=== PATIENT | male | born 1980 | race Caucasian/White ===

== ENCOUNTER 2016-12-24 15:12 | Emergency (ER) | payer OTHER ==
[~2016-12-24] VITALS: Ht 175.3 cm; Wt 68.0 kg
--- OUTSIDE RECORDS SUMMARY | ~2016-12-24 | XMS ---
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 | | | Active | [id number] | | | current | | | | | | | | use of | | | | | | | | insulin | | | | | | +---------+ + + +--------+ + + | Problem | Diabetes | | E08.65 | | Active | 9713284 | | | mellitus | | | [...] | E13.10 | | | Active | 856761035 | | | is due to | | | | | | | | diabetes | | | | | | +---------+ + + +--------+ + + | 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 | | | Active | 59995478 | | | ctive | | | | | | | | disorder | | | | | | +---------+ + + +--------+ + + | Problem | Hypertensi | | I10 | | Active | 92808419 | | | on | | | | | | +---------+ + + +--------+ + + | Problem | Pain in | | M79.671 | | Active | 1780957297 | | | right foot | | | | | [address] | +---------+ + + +--------+ + + | Problem | Callous | L98.499 | | | Active | 201163197 | | | ulcer | | | | | | +---------+ + + +--------+ + + | 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 | | | Active | 025395693 | | | thrive in | | | | | | | | adult | | | | | | +---------+ + + +--------+ + + | Problem | Smoking | | F17.200 | | Active | 945978377 | +---------+ + + +--------+ + + | Problem | Insomnia | | G47.00 | | Active | 827082676 | +---------+ + + +--------+ + + | Problem | 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 | | | Active | 3734726237 | | | hammad due to | | | | | [address] | | | type 1 | | | | | | | | diabetes | | | | | | | | mellitus | | | | | | +---------+ + + +--------+ + + ALLERGIES + + + + +--------+ | Substance | Reaction | Event Type | Date | Status | + + + + +--------+ | Wellbutrin | Hostile | Drug Allergy | Nov, | Active | + + + + +--------+ | Venlafaxine HCl | Unknown | Drug Allergy | Nov, | Active | + + + + +--------+ | Risperidone | Unknown | Drug Allergy | Nov, | Active | + + + + +--------+ | Resperal | sleep for a day | Drug Allergy | Nov, | Active | + + + + +--------+ | Haldol | swelling | Drug Allergy | Nov, | Active | + + + + +--------+ | Effexor | depressed, | Drug Allergy | Nov, | Active | | | suicidal | | | | + + + + +--------+ | Aripiprazole | Unknown | Drug Allergy | Nov, | Active | + + + + +--------+ SOCIAL HISTORY No smoking Hx information available PLAN OF CARE + +---------+ | Activity | Details | + +---------+ +---+ | | +---+ + + + | Follow Up | 2 Months Reason:null | + + + | Pending Test | Comp. Metabolic Panel (14) | + + + | Pending Test | Lipid Panel | + + + | Pending Test | Hemoglobin A1C Panel | + + + | Pending Test | CBC | + + + VITAL SIGNS + + + + | Height | 68 in | 2016-12-18 | + + + + | Weight | 144.6 lbs | 2016-12-18 | + + + + | BMI | 21.98 kg/m2 | 2016-12-18 | + + + + | Temperature | 97.7 degrees Fahrenheit | 2016-12-18 | + + + + | Heart Rate | 86 /min | 2016-12-18 | + + + + | Blood pressure systolic | 121 mm Hg | 2016-12-18 | + + + + | Blood pressure diastolic | 82 mm Hg | 2016-12-18 | + + + + MEDICATIONS + + + + + + + +--------+ | Medicati | Instruct | Dosage | Frequenc | Start | End Date | Duration | Status | | on | ions | | y | Date | | | | + + + + + + + +--------+ | Aspercre | External | 1 | 6h | 25 Apr, | | 90 days | Active | | me 10 % | ly Four | applicat | | 2016 | | | | | | times a | ion to | | | | | | | | day | affected | | | | | | | | | area as | | | | | | | | | needed | | | | | | + + + + + + + +--------+ | Proprano | Orally | 1.5 | 12h | | | 90 days | Active | | lol HCl | Twice a | tablet | | | | | | | 20 mg | day | | | | | | | + + + + + + + +--------+ | Gabapent | Orally | as | | 25 Apr, | | 90 days | Active | | in 100 | tid qac | directed | | 2016 | | | | | mg | | | | | | | | + + + + + + + +--------+ | Tylenol | Orally | 2 | 6h | | | 90 days | Active | | 325 MG | every 6 | tablets | | | | | | | | hrs | as | | | | | | | | | needed | | | | | | + + + + + + + +--------+ | Nicorett | Mouth/Th | 1 piece | | 25 Apr, | 20 Apr, | 90 days | Active | | e 2 MG | roat 24 | as | | 2016 | 2017 | | | | | time(s) | needed | | | | | | | | a day | | | | | | | + + + + + + + +--------+ | Cymbalta | Orally | 1 | 12h | | | | Active | | 30 MG | Twice a | capsule | | | | | | | | day | | | | | | | + + + + + + + +--------+ | Multiple | Orally | as | 24h | 31 Aug, | | 90 days | Active | | | daily | directed | | 2015 | | | | | Vitamins | | | | | | | | | -Mineral | | | | | | | | | s na | | | | | | | | + + + + + + + +--------+ | Atorvast | Orally | 1 tablet | 24h | | | 90 days | Active | | atin | Once a | | | | | | | | Calcium | day | | | | | | | | 10 MG | | | | | | | | + + + + + + + +--------+ | Nicorett | Mouth/Th | 1 | | | | 12 weeks | Active | | e 4 mg | roat max | lozenge | | | | | | | | 5 in 6 | every | | | | | | | | hours/ | 1-2 | | | | | | | | max 20 | hours | | | | | | | | in 24 | | | | | | | | | hours | | | | | | | + + + + + + + +--------+ | Insulin | orally | 20 units | | | | 30 | Active | | Glargine | once | | | | | day(s) | | | 100 | nightly | | | | | | | | UNIT/ML | | | | | | | | + + + + + + + +--------+ | Zolpidem | Orally | 1 tablet | 24h | | | 90 days | Active | | | Once a | at | | | | | | | Tartrate | day | bedtime | | | | | | | 5 MG | | | | | | | | + + + + + + + +--------+ | Losartan | Orally | 1 tablet | 24h | | | 90 days | Active | | | Once a | | | | | | | | Potassiu | day | | | | | | | | m 25 MG | | | | | | | | + + + + + + + +--------+ | Insulin | | | | | | | Active | | Lispro | | | | | | | | | 100 | | | | | | | | | UNIT/ML | | | | | | | | + + + + + + + +--------+ RESULTS No Results PROCEDURES + + + + + | Procedure | Date Ordered | Related Diagnosis | Body Site | + + + + + | Est Level IV | December 18, 2016 | | | | Extended | | | | + + + + + IMMUNIZATIONS No Known Immunizations"
--- OUTSIDE RECORDS SUMMARY | ~2016-12-24 | XMS ---
Demographics + + + | Address | [address] | | | [address] | | | [place] [address] | + + + | Preferred Language | Unknown | + + + | Marital Status | Unknown | + + + | Cheondoism Affiliation | Unknown | + + + | Race | Unknown | + + + | Ethnic Group | Unknown | + + + Author + + + | Author | [facility] | + + + | Organization | [facility] | + + + | Address | [address] | | | [place] [address] | + + + | Phone | | + + + Care Team Providers + + + + | Care Supervisor [employer] Name | Role | Phone | + + + + Unavailable | Unavailable | + + + + PROBLEMS +---------+ + + +--------+ + + | Type | Condition | ICD9-CM | [id number] | Onset | Condition | SNOMED | | | | Code | Code | Dates | Status | Code | +---------+ + + +--------+ + + | Problem | intermediate | Z79.4 | | | Active | [id number] | | | current | | | | | | | | use of | | | | | | | | insulin | | | | | | +---------+ + + +--------+ + + | Problem | Diabetes | | E08.65 | | Active | 2577539 | | | mellitus | | | [...] | E13.10 | | | Active | 678906842 | | | is due to | | | | | | | | diabetes | | | | | | +---------+ + + +--------+ + + | 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 | | | Active | 62500833 | | | ctive | | | | | | | | disorder | | | | | | +---------+ + + +--------+ + + | Problem | Hypertensi | | I10 | | Active | 34749737 | | | on | | | | | | +---------+ + + +--------+ + + | Problem | Pain in | | M79.671 | | Active | 1733505938 | | | right foot | | | | | [address] | +---------+ + + +--------+ + + | Problem | Callous | L98.499 | | | Active | 250896037 | | | ulcer | | | | | | +---------+ + + +--------+ + + | 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
--- OUTSIDE RECORDS SUMMARY | ~2016-12-24 | XMS ---
Demographics + + + | Address | [address] | | | [address] | | | [place] [address] | + + + | Preferred Language | Unknown | + + + | Marital Status | Unknown | + + + | Sabianism Affiliation | Unknown | + + + | Race | Unknown | + + + | Ethnic Group | Unknown | + + + Author + + + | Author | [facility] | + + + | Organization | [facility] | + + + | Address | [address] | | | [place] [address] | + + + | Phone | | + + + Care Team Providers + + + + | Care Pharmacy Technician Assistant Name | Role | Phone | + + + + Unavailable | Unavailable | + + + + PROBLEMS +---------+ + + +--------+ + + | Type | Condition | ICD9-CM | [id number] | Onset | Condition | SNOMED | | | | Code | Code | Dates | Status | Code | +---------+ + + +--------+ + + | Problem | group home | Z79.4 | | | Active | 260460106 | | | current | | | | | | | | use of | | | | | | | | insulin | | | | | | +---------+ + + +--------+ + + | Problem | Diabetes | | E08.65 | | Active | 1957333 | | | mellitus | | | [...] | E13.10 | | | Active | 003518972 | | | is due to | | | | | | | | diabetes | | | | | | +---------+ + + +--------+ + + | 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 | | | Active | 63751775 | | | ctive | | | | | | | | disorder | | | | | | +---------+ + + +--------+ + + | Problem | Hypertensi | | I10 | | Active | 45399953 | | | on | | | | | | +---------+ + + +--------+ + + | Problem | Pain in | | M79.671 | | Active | 7131363715 | | | right foot | | | | | [address] | +---------+ + + +--------+ + + | Problem | Callous | L98.499 | | | Active | 900822741 | | | ulcer | | | | | | +---------+ + + +--------+ + + | 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
--- OUTSIDE RECORDS SUMMARY | ~2016-12-24 | XMS ---
Demographics + + + | Address | [address] | | | [address] | | | [place] [address] | + + + | Preferred Language | Unknown | + + + | Marital Status | Unknown | + + + | Zoroastrian Affiliation | Unknown | + + + | Race | Unknown | + + + | Ethnic Group | Unknown | + + + Author + + + | Author | [facility] | + + + | Organization | [facility] | + + + | Address | [address] | | | [place] [address] | + + + | Phone | | + + + Care Team Providers + + + + | Care Retort Cooler Name | Role | Phone | + + + + Unavailable | Unavailable | + + + + PROBLEMS +---------+ + + +--------+ + + | Type | Condition | ICD9-CM | [id number] | Onset | Condition | SNOMED | | | | Code | Code | Dates | Status | Code | +---------+ + + +--------+ + + | Problem | custodial | Z79.4 | | | Active | [id number] | | | current | | | | | | | | use of | | | | | | | | insulin | | | | | | +---------+ + + +--------+ + + | Problem | Diabetes | | E08.65 | | Active | 6598241 | | | mellitus | | | [...] | E13.10 | | | Active | 717839144 | | | is due to | | | | | | | | diabetes | | | | | | +---------+ + + +--------+ + + | 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 | | | Active | 75643322 | | | ctive | | | | | | | | disorder | | | | | | +---------+ + + +--------+ + + | Problem | Hypertensi | | I10 | | Active | 69676301 | | | on | | | | | | +---------+ + + +--------+ + + | Problem | Pain in | | M79.671 | | Active | 0510841505 | | | right foot | | | | | [address] | +---------+ + + +--------+ + + | Problem | Callous | L98.499 | | | Active | 096618997 | | | ulcer | | | | | | +---------+ + + +--------+ + + | 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
[~2016-12-24 15:12] MED LIST: ALBUTEROL2.5 MG/3 M INH; AMBIEN5 MG PO; AMOX TR-K CLV1 EAC1 PO; APIDRA SOL100 UNIT/1 SUB-Q; ARIPIPRAZOLE2 MG PO; ASPERCREME76.5 GM; ASPIRIN EC81 MG PO; ATORVASTATIN CA10 MG PO; DULOXETINE HCL30 MG PO; GABAPENTIN100 MG PO; GEODON80 MG NG; HUMALOG100 UNIT/1 SUB-Q; HUMALOG100 UNIT/2 SUB-Q; HUMALOG100 UNITS/ SUB-Q; HUMULIN R500 UNIT/2 SQ; LANTUS SOL100 UNIT/1 SUB-Q; LANTUS100 UNITS/ SUB-Q; LEVAQUIN500 MG PO; LISINOPRIL20 MG PO; LOSARTAN POTASS25 MG PO; MULTIVITAMINS1 EAC7 PO; NEXIUM20 MG PO; NICORETTE4 M1 BUCCAL; NICOTINE GUM4 MG BUCCAL; NICOTINE PATCH1 EAC1 TD; PROPRANOLOL HCL20 MG PO; PROVENTIL HFA6.7 GM INH; QUETIAPINE FUM300 MG PO; REGLAN10 MG PO; STRATTERA100 MG PO; STRATTERA60 MG PO; STRATTERA80 MG PO; TYLENOL325 MG PO
[2016-12-24] MEDS ORDERED: NOVOLOG FL100 UNIT/1 SUB-Q (15:46)
[2016-12-24] MEDS ORDERED: LANTUS SOL100 UNIT/1 SUB-Q (15:47)
== END 2016-12-24 16:44 | disposition home or self-care (01) ==
LOC: ED 15:12
DX: E10.649 Type 1 diabetes mellitus with hypoglycemia without coma (principal); F31.9 Bipolar disorder, unspecified; F90.9 Attention-deficit hyperactivity disorder, unspecified type; F17.200 Nicotine dependence, unspecified, uncomplicated; Z88.8 Allergy status to other drugs, medicaments and biological substances; Z79.4 Long term (current) use of insulin; Z79.899 Other long term (current) drug therapy
CPT/HCPCS: 99283

== ENCOUNTER 2017-03-03 18:10 | Inpatient (IN) | payer OTHER ==
[~2017-03-03] VITALS: Ht 175.3 cm; Wt 61.1 kg
--- OUTSIDE RECORDS SUMMARY | ~2017-03-03 | XMS ---
Demographics + + + | Address | [address] | | | [address] | | | [place] [address] | + + + | Preferred Language | Unknown | + + + | Marital Status | Unknown | + + + | Methodist Affiliation | Unknown | + + + | Race | Unknown | + + + | Ethnic Group | Unknown | + + + Author + + + | Author | [facility] | + + + | Organization | [facility] | + + + | Address | [address] | | | [place] [address] | + + + | Phone | | + + + Care Team Providers + + + + | Care Head Stock Transfer Clerk Name | Role | Phone | + + + + Unavailable | Unavailable | + + + + PROBLEMS +---------+ + + +--------+ + + | Type | Condition | ICD9-CM | [id number] | Onset | Condition | SNOMED | | | | Code | Code | Dates | Status | Code | +---------+ + + +--------+ + + | Problem | USP | Z79.4 | | | Active | 631435542 | | | current | | | | | | | | use of | | | | | | | | insulin | | | | | | +---------+ + + +--------+ + + | Problem | Diabetes | | E08.65 | | Active | 3151492 | | | mellitus | | | [...] | E13.10 | | | Active | 371031186 | | | is due to | | | | | | | | diabetes | | | | | | +---------+ + + +--------+ + + | 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 | | | Active | 06895839 | | | ctive | | | | | | | | disorder | | | | | | +---------+ + + +--------+ + + | Problem | Hypertensi | | I10 | | Active | 80146366 | | | on | | | | | | +---------+ + + +--------+ + + | Problem | Pain in | | M79.671 | | Active | 4901551326 | | | right foot | | | | | [address] | +---------+ + + +--------+ + + | Problem | Callous | L98.499 | | | Active | 176066134 | | | ulcer | | | | | | +---------+ + + +--------+ + + | 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 | | | Active | 387112671 | | | thrive in | | | | | | | | adult | | | | | | +---------+ + + +--------+ + + | Problem | Smoking | | F17.200 | | Active | 087023237 | +---------+ + + +--------+ + + | Problem | Insomnia | | G47.00 | | Active | 112106552 | +---------+ + + +--------+ + + | Problem | 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 | | | Active | 2544120013 | | | hammad due to | | | | | [address] | | | type 1 | | | | | | | | diabetes | | | | | | | | mellitus | | | | | | +---------+ + + +--------+ + + ALLERGIES Unknown Allergies SOCIAL HISTORY No smoking Hx information available PLAN OF CARE VITAL SIGNS MEDICATIONS Unknown Medications RESULTS No Results PROCEDURES No Known procedures IMMUNIZATIONS No Known Immunizations"
--- OUTSIDE RECORDS SUMMARY | ~2017-03-03 | XMS ---
Demographics + + + | Address | [address] | | | [address] | | | [place] [address] | + + + | Preferred Language | Unknown | + + + | Marital Status | Unknown | + + + | Restorationist Affiliation | Unknown | + + + | Race | Unknown | + + + | Ethnic Group | Unknown | + + + Author + + + | Author | [facility] | + + + | Organization | [facility] | + + + | Address | [address] | | | [place] [address] | + + + | Phone | | + + + Care Team Providers + + + + | Care Director Of Vocational Training Name | Role | Phone | + + + + Unavailable | Unavailable | + + + + PROBLEMS +---------+ + + +--------+ + + | Type | Condition | ICD9-CM | [id number] | Onset | Condition | SNOMED | | | | Code | Code | Dates | Status | Code | +---------+ + + +--------+ + + | Problem | FPC | Z79.4 | | | Active | 314584491 | | | current | | | | | | | | use of | | | | | | | | insulin | | | | | | +---------+ + + +--------+ + + | Problem | Diabetes | | E08.65 | | Active | 9334449 | | | mellitus | | | [...] | E13.10 | | | Active | 722493150 | | | is due to | | | | | | | | diabetes | | | | | | +---------+ + + +--------+ + + | 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 | | | Active | 98710467 | | | ctive | | | | | | | | disorder | | | | | | +---------+ + + +--------+ + + | Problem | Hypertensi | | I10 | | Active | 73087119 | | | on | | | | | | +---------+ + + +--------+ + + | Problem | Pain in | | M79.671 | | Active | 3040025424 | | | right foot | | | | | [address] | +---------+ + + +--------+ + + | Problem | Callous | L98.499 | | | Active | 781930903 | | | ulcer | | | | | | +---------+ + + +--------+ + + | 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
--- OUTSIDE RECORDS SUMMARY | ~2017-03-03 | XMS ---
Demographics + + + | Address | [address] | | | [address] | | | [place] [address] | + + + | Preferred Language | Unknown | + + + | Marital Status | Unknown | + + + | Congregation Affiliation | Unknown | + + + | Race | Unknown | + + + | Ethnic Group | Unknown | + + + Author + + + | Author | [facility] | + + + | Organization | [facility] | + + + | Address | [address] | | | [place] [address] | + + + | Phone | | + + + Care Team Providers + + + + | Care Anesthesiologist Assistant Certified Name | Role | Phone | + + + + Unavailable | Unavailable | + + + + PROBLEMS +---------+ + + +--------+ + + | Type | Condition | ICD9-CM | [id number] | Onset | Condition | SNOMED | | | | Code | Code | Dates | Status | Code | +---------+ + + +--------+ + + | Problem | prison | Z79.4 | | | Active | 479244815 | | | current | | | | | | | | use of | | | | | | | | insulin | | | | | | +---------+ + + +--------+ + + | Problem | Diabetes | | E08.65 | | Active | 3034716 | | | mellitus | | | [...] | E13.10 | | | Active | 420925272 | | | is due to | | | | | | | | diabetes | | | | | | +---------+ + + +--------+ + + | 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 | | | Active | 30340911 | | | ctive | | | | | | | | disorder | | | | | | +---------+ + + +--------+ + + | Problem | Hypertensi | | I10 | | Active | 22748280 | | | on | | | | | | +---------+ + + +--------+ + + | Problem | Pain in | | M79.671 | | Active | 0896115449 | | | right foot | | | | | [address] | +---------+ + + +--------+ + + | Problem | Callous | L98.499 | | | Active | 415270730 | | | ulcer | | | | | | +---------+ + + +--------+ + + | 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
--- OUTSIDE RECORDS SUMMARY | ~2017-03-03 | XMS ---
Demographics + + + | Address | [address] | | | [address] | | | [place] [address] | + + + | Preferred Language | Unknown | + + + | Marital Status | Unknown | + + + | Christian Affiliation | Unknown | + + + | Race | Unknown | + + + | Ethnic Group | Unknown | + + + Author + + + | Author | [facility] | + + + | Organization | [facility] | + + + | Address | [address] | | | [place] [address] | + + + | Phone | | + + + Care Team Providers + + + + | Care Senior Linux Administrator Name | Role | Phone | + + + + Unavailable | Unavailable | + + + + PROBLEMS +---------+ + + +--------+ + + | Type | Condition | ICD9-CM | [id number] | Onset | Condition | SNOMED | | | | Code | Code | Dates | Status | Code | +---------+ + + +--------+ + + | Problem | senior living | Z79.4 | | | Active | 482143435 | | | current | | | | | | | | use of | | | | | | | | insulin | | | | | | +---------+ + + +--------+ + + | Problem | Diabetes | | E08.65 | | Active | 5171800 | | | mellitus | | | [...] | E13.10 | | | Active | 953309501 | | | is due to | | | | | | | | diabetes | | | | | | +---------+ + + +--------+ + + | 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 | | | Active | 59251787 | | | ctive | | | | | | | | disorder | | | | | | +---------+ + + +--------+ + + | Problem | Hypertensi | | I10 | | Active | 67264412 | | | on | | | | | | +---------+ + + +--------+ + + | Problem | Pain in | | M79.671 | | Active | 6181613364 | | | right foot | | | | | [address] | +---------+ + + +--------+ + + | Problem | Callous | L98.499 | | | Active | 668584434 | | | ulcer | | | | | | +---------+ + + +--------+ + + | 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
--- OUTSIDE RECORDS SUMMARY | ~2017-03-03 | XMS ---
Demographics + + + | Address | [address] | | | [address] | | | [place] [address] | + + + | Preferred Language | Unknown | + + + | Marital Status | Unknown | + + + | Gnosticism Affiliation | Unknown | + + + | Race | Unknown | + + + | Ethnic Group | Unknown | + + + Author + + + | Author | [facility] | + + + | Organization | [facility] | + + + | Address | [address] | | | [place] [address] | + + + | Phone | | + + + Care Team Providers + + + + | Care Ore Grader Name | Role | Phone | + + + + Unavailable | Unavailable | + + + + PROBLEMS +---------+ + + +--------+ + + | Type | Condition | ICD9-CM | [id number] | Onset | Condition | SNOMED | | | | Code | Code | Dates | Status | Code | +---------+ + + +--------+ + + | Problem | FCI | Z79.4 | | | Active | 582507338 | | | current | | | | | | | | use of | | | | | | | | insulin | | | | | | +---------+ + + +--------+ + + | Problem | Diabetes | | E08.65 | | Active | 5081132 | | | mellitus | | | [...] | E13.10 | | | Active | 552088468 | | | is due to | | | | | | | | diabetes | | | | | | +---------+ + + +--------+ + + | 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 | | | Active | 32099748 | | | ctive | | | | | | | | disorder | | | | | | +---------+ + + +--------+ + + | Problem | Hypertensi | | I10 | | Active | 87960872 | | | on | | | | | | +---------+ + + +--------+ + + | Problem | Pain in | | M79.671 | | Active | 8525321419 | | | right foot | | | | | [address] | +---------+ + + +--------+ + + | Problem | Callous | L98.499 | | | Active | 502905754 | | | ulcer | | | | | | +---------+ + + +--------+ + + | 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
--- OUTSIDE RECORDS SUMMARY | ~2017-03-03 | XMS ---
Demographics + + + | Address | [address] | | | [address] | | | [place] [address] | + + + | Preferred Language | Unknown | + + + | Marital Status | Unknown | + + + | Sikhism Affiliation | Unknown | + + + | Race | Unknown | + + + | Ethnic Group | Unknown | + + + Author + + + | Author | [facility] | + + + | Organization | [facility] | + + + | Address | [address] | | | [place] [address] | + + + | Phone | | + + + Care Team Providers + + + + | Care Finishing Range Supervisor Name | Role | Phone | + + + + Unavailable | Unavailable | + + + + PROBLEMS +---------+ + + +--------+ + + | Type | Condition | ICD9-CM | [id number] | Onset | Condition | SNOMED | | | | Code | Code | Dates | Status | Code | +---------+ + + +--------+ + + | Problem | USP | Z79.4 | | | Active | [id number] | | | current | | | | | | | | use of | | | | | | | | insulin | | | | | | +---------+ + + +--------+ + + | Problem | Diabetes | | E08.65 | | Active | 0784954 | | | mellitus | | | [...] | E13.10 | | | Active | 987228590 | | | is due to | | | | | | | | diabetes | | | | | | +---------+ + + +--------+ + + | 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 | | | Active | 50120959 | | | ctive | | | | | | | | disorder | | | | | | +---------+ + + +--------+ + + | Problem | Hypertensi | | I10 | | Active | 81619018 | | | on | | | | | | +---------+ + + +--------+ + + | Problem | Pain in | | M79.671 | | Active | 9471593442 | | | right foot | | | | | [address] | +---------+ + + +--------+ + + | Problem | Callous | L98.499 | | | Active | 669704903 | | | ulcer | | | | | | +---------+ + + +--------+ + + | 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 | | | Active | 298041343 | | | thrive in | | | | | | | | adult | | | | | | +---------+ + + +--------+ + + | Problem | Smoking | | F17.200 | | Active | 461218621 | +---------+ + + +--------+ + + | Problem | Insomnia | | G47.00 | | Active | 795504113 | +---------+ + + +--------+ + + | Problem | 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 | | | Active | 0275761055 | | | hammad due to | | | | | [address] | | | type 1 | | [...]
--- OUTSIDE RECORDS SUMMARY | ~2017-03-03 | XMS ---
Demographics + + + | Address | [address] | | | [address] | | | [place] [address] | + + + | Preferred Language | Unknown | + + + | Marital Status | Unknown | + + + | Islam Affiliation | Unknown | + + + | Race | Unknown | + + + | Ethnic Group | Unknown | + + + Author + + + | Author | [facility] | + + + | Organization | [facility] | + + + | Address | [address] | | | [place] [address] | + + + | Phone | | + + + Care Team Providers + + + + | Care Inflatable Buildings Laminator Name | Role | Phone | + + + + Unavailable | Unavailable | + + + + PROBLEMS +---------+ + + +--------+ + + | Type | Condition | ICD9-CM | [id number] | Onset | Condition | SNOMED | | | | Code | Code | Dates | Status | Code | +---------+ + + +--------+ + + | Problem | prison | Z79.4 | | | Active | [id number] | | | current | | | | | | | | use of | | | | | | | | insulin | | | | | | +---------+ + + +--------+ + + | Problem | Diabetes | | E08.65 | | Active | 5554851 | | | mellitus | | | [...] | E13.10 | | | Active | 388085065 | | | is due to | | | | | | | | diabetes | | | | | | +---------+ + + +--------+ + + | 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 | | | Active | 69124133 | | | ctive | | | | | | | | disorder | | | | | | +---------+ + + +--------+ + + | Problem | Hypertensi | | I10 | | Active | 96602487 | | | on | | | | | | +---------+ + + +--------+ + + | Problem | Pain in | | M79.671 | | Active | 8003953232 | | | right foot | | | | | [address] | +---------+ + + +--------+ + + | Problem | Callous | L98.499 | | | Active | 610627919 | | | ulcer | | | | | | +---------+ + + +--------+ + + | 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 | | | Active | 027771602 | | | thrive in | | | | | | | | adult | | | | | | +---------+ + + +--------+ + + | Problem | Smoking | | F17.200 | | Active | 309735421 | +---------+ + + +--------+ + + | Problem | Insomnia | | G47.00 | | Active | 041019353 | +---------+ + + +--------+ + + | Problem | 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 | | | Active | 0658188863 | | | hammad due to | | | | | [address] | | | type 1 | | [...]
--- OUTSIDE RECORDS SUMMARY | ~2017-03-03 | XMS ---
Demographics + + + | Address | [address] | | | [address] | | | [place] [address] | + + + | Preferred Language | Unknown | + + + | Marital Status | Unknown | + + + | Scientology Affiliation | Unknown | + + + | Race | Unknown | + + + | Ethnic Group | Unknown | + + + Author + + + | Author | [facility] | + + + | Organization | [facility] | + + + | Address | [address] | | | [place] [address] | + + + | Phone | | + + + Care Team Providers + + + + | Care Mrp Controller Name | Role | Phone | + + + + Unavailable | Unavailable | + + + + PROBLEMS +---------+ + + +--------+ + + | Type | Condition | ICD9-CM | [id number] | Onset | Condition | SNOMED | | | | Code | Code | Dates | Status | Code | +---------+ + + +--------+ + + | Problem | [facility] | Z79.4 | | | Active | [id number] | | | current | | | | | | | | use of | | | | | | | | insulin | | | | | | +---------+ + + +--------+ + + | Problem | Diabetes | | E08.65 | | Active | 5727242 | | | mellitus | | | [...] | E13.10 | | | Active | 301354113 | | | is due to | | | | | | | | diabetes | | | | | | +---------+ + + +--------+ + + | 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 | | | Active | 46600376 | | | ctive | | | | | | | | disorder | | | | | | +---------+ + + +--------+ + + | Problem | Hypertensi | | I10 | | Active | 84387722 | | | on | | | | | | +---------+ + + +--------+ + + | Problem | Pain in | | M79.671 | | Active | 0286323866 | | | right foot | | | | | [address] | +---------+ + + +--------+ + + | Problem | Callous | L98.499 | | | Active | 776396974 | | | ulcer | | | | | | +---------+ + + +--------+ + + | 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 | | | Active | 629781344 | | | thrive in | | | | | | | | adult | | | | | | +---------+ + + +--------+ + + | Problem | Smoking | | F17.200 | | Active | 558555822 | +---------+ + + +--------+ + + | Problem | Insomnia | | G47.00 | | Active | 858170581 | +---------+ + + +--------+ + + | Problem | 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 | | | Active | 6218854187 | | | hammad due to | | | | | [address] | | | type 1 | | [...]
--- OUTSIDE RECORDS SUMMARY | ~2017-03-03 | XMS ---
Demographics + + + | Address | [address] | | | [address] | | | [place] [address] | + + + | Preferred Language | Unknown | + + + | Marital Status | Unknown | + + + | Samaritan Affiliation | Unknown | + + + | Race | Unknown | + + + | Ethnic Group | Unknown | + + + Author + + + | Author | [facility] | + + + | Organization | [facility] | + + + | Address | [address] | | | [place] [address] | + + + | Phone | | + + + Care Team Providers + + + + | Care Farm Products Shipper Name | Role | Phone | + + + + Unavailable | Unavailable | + + + + PROBLEMS +---------+ + + +--------+ + + | Type | Condition | ICD9-CM | [id number] | Onset | Condition | SNOMED | | | | Code | Code | Dates | Status | Code | +---------+ + + +--------+ + + | Problem | snf | Z79.4 | | | Active | [id number] | | | current | | | | | | | | use of | | | | | | | | insulin | | | | | | +---------+ + + +--------+ + + | Problem | Diabetes | | E08.65 | | Active | 4672563 | | | mellitus | | | [...] | E13.10 | | | Active | 229555906 | | | is due to | | | | | | | | diabetes | | | | | | +---------+ + + +--------+ + + | 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 | | | Active | 81152435 | | | ctive | | | | | | | | disorder | | | | | | +---------+ + + +--------+ + + | Problem | Hypertensi | | I10 | | Active | 94216232 | | | on | | | | | | +---------+ + + +--------+ + + | Problem | Pain in | | M79.671 | | Active | 3026988088 | | | right foot | | | | | [address] | +---------+ + + +--------+ + + | Problem | Callous | L98.499 | | | Active | 791703633 | | | ulcer | | | | | | +---------+ + + +--------+ + + | 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 | | | Active | 754566247 | | | thrive in | | | | | | | | adult | | | | | | +---------+ + + +--------+ + + | Problem | Smoking | | F17.200 | | Active | 409610355 | +---------+ + + +--------+ + + | Problem | Insomnia | | G47.00 | | Active | 048341434 | +---------+ + + +--------+ + + | Problem | 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 | | | Active | 1344911489 | | | hammad due to | | | | | [address] | | | type 1 | | [...]
--- OUTSIDE RECORDS SUMMARY | ~2017-03-03 | XMS ---
Demographics + + + | Address | [address] | | | [address] | | | [place] [address] | + + + | Preferred Language [...] | + + + | Organization | [facility] | + + + | Address | [address] | | | [place] [address] | + + + | Phone | | + + + Care Team Providers + + + + | Care Spring Assembler Supervisor Name | Role | Phone | + + + + Unavailable | Unavailable | + + + + PROBLEMS +---------+ + + +--------+ + + | Type | Condition | ICD9-CM | [id number] | Onset | Condition | SNOMED | | | | Code | Code | Dates | Status | Code | +---------+ + + +--------+ + + | Problem | senior care | Z79.4 | | | Active | [id number] | | | current | | | | | | | | use of | | | | | | | | insulin | | | | | | +---------+ + + +--------+ + + | Problem | Diabetes | | E08.65 | | Active | 6501390 | | | mellitus | | | [...] | E13.10 | | | Active | 357823535 | | | is due to | | | | | | | | diabetes | | | | | | +---------+ + + +--------+ + + | 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 | | | Active | 09959544 | | | ctive | | | | | | | | disorder | | | | | | +---------+ + + +--------+ + + | Problem | Hypertensi | | I10 | | Active | 67790246 | | | on | | | | | | +---------+ + + +--------+ + + | Problem | Pain in | | M79.671 | | Active | 6741257451 | | | right foot | | | | | [address] | +---------+ + + +--------+ + + | Problem | Callous | L98.499 | | | Active | 343492207 | | | ulcer | | | | | | +---------+ + + +--------+ + + | 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 | | | Active | 500983287 | | | thrive in | | | | | | | | adult | | | | | | +---------+ + + +--------+ + + | Problem | Smoking | | F17.200 | | Active | 757902651 | +---------+ + + +--------+ + + | Problem | Insomnia | | G47.00 | | Active | 409013004 | +---------+ + + +--------+ + + | Problem | 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 | | | Active | 3874614407 | | | hammad due to | | | | | [address] | | | type 1 | | [...]
[~2017-03-03 18:10] MED LIST changes: +NOVOLOG FL100 UNIT/1 SUB-Q
[2017-03-03] MEDS ORDERED: CYMBALTA30 MG PO (19:48)
[2017-03-03] MEDS ORDERED: HUMULIN R500 UNIT/1 SUB-Q (19:50)
--- NOTE | 2017-03-04 00:10 | NUR ---
ADMIT TO CCU, REPORT RECIEVED FROM NAYANA JAMES. PT ABLE TO STAND AND MOVE FROM STRETCHER TO BED. PT'S SPEECH SL RAPID AND DISORGANIZED BUT IS COOPERATIVE. PT C/O HEARTBURN OTHERWISE DENIES PAIN. GIVEN DIET 7-UP ON ICE AND WATER. DENIES NAUSEA. INSULIN GTT CHANGED TO [address] BATISTA.
--- NOTE | 2017-03-04 01:00 | NUR ---
INSULIN GTT CHANGED TO 4 UNITS/HR BS 282. PT RESTING.
--- NOTE | 2017-03-04 02:12 | NUR ---
CARLENE FOR BS. BS IS 24O GTT CHANGED TO 3 UNITS/HR, RATE CHANGES DOUBLED CHECKED PER JOHANNY JAMES. PT GIVEN WARM BLANKETS PER REQUEST.
--- NOTE | 2017-03-04 03:10 | NUR ---
PT HAS NO C/O. INSULIN DECREASED TO 2 UNITS PER HR. IVF WILL CHANGE TO D5NS.
--- NOTE | 2017-03-04 03:32 | NUR ---
STOOD TO VOID. JOANNE WELL.
--- NOTE | 2017-03-04 06:29 | NUR ---
SLEEPING MOST OF TIME. CONT AT 2 UNITS OF INSULIN PER HR.
--- NOTE | 2017-03-04 08:00 | NUR ---
DR. BATISTA HERE TO SEE PATIENT. IS MOVING AROUND IN BED. NURSING ASSESSMENT DONE. TALKED WITH PATIENT ABOUT PLAN OF CARE FOR DAY, IS NOT INTERESTED IN THE PLAN OF CARE. BREAKFAST ORDERED. ACCUCHECK-134. INSULIN GTT DECREASED TO 1 UNIT PER ORDERS.
--- NOTE | 2017-03-04 09:00 | NUR ---
RESTFUL. ACCUCHECK-148. INUSLIN GTT REMAINS AT 1 UNIT HR.
--- NOTE | 2017-03-04 10:10 | NUR ---
ACCUCHECK-208. INSULIN GTT INCREASED TO 3 UNITS/HR. DR. BATISTA AWARE, NO FUTHER ORDERS. TAKING SNACK.
--- NOTE | 2017-03-04 11:00 | NUR ---
REFUSED ACCUCHECK. CURSING. PATIENT STATES HE WANTS TO BE ALONE.
--- NOTE | 2017-03-04 12:00 | NUR ---
ACCUCHECK 264. INSULIN GTT INCREASED TO 4 UNITS.
--- NOTE | 2017-03-04 13:10 | NUR ---
TOOK LUNCH WELL. DENIES NAUSEA. AMBULATED TO SHOWER. OFF INSULIN GTT WHILE IN SHOWER.
--- NOTE | 2017-03-04 13:20 | NUR ---
TOLERATED SHOWER WELL. ASKING FOR MORE FOOD. IVF/INSULIN GTT ON. IS TALKATIVE AT THIS TIME. NICOTINE GUM ORDERED AND GIVEN. CONTINUE ON Q1 HR ACCUCHECK. IVF AT 125 D5NS INFUSING. INSULIN GTT IS INFUSING AT 4 UNITS/HR.
--- NOTE | 2017-03-04 13:30 | NUR ---
TYLENOL GIVEN FOR HEADACHE.
--- NOTE | 2017-03-04 14:26 | NUR ---
RESTING NOW. STATES FEELS BETTER AFTER TYLENOL GIVEN.
--- NOTE | 2017-03-04 17:11 | NUR ---
SITTING AT BEDSIDE. TALKATIVE.
--- NOTE | 2017-03-04 18:42 | NUR ---
DR. LOO UPDATED ON PATIENT. ORDERS RECIEVED. TOOK DINNER WELL. DENIES NAUSEA.
--- NOTE | 2017-03-04 19:13 | NUR ---
LEVEMIR 12 UNITS SQ GIVEN. IVF OFF. TALKED WITH PATIENT ABOUT PLAN FOR INULIN GTT AND SQ INSULIN WELL ACCUCHECKS. BEDSIDE REPORT GIVEN. RESTFUL.
--- NOTE | 2017-03-04 20:48 | NUR ---
PT UP IN ROOM. DOES NOT WANT TO KEEP MONITOR ON. HAS ALSO REQUESTED ANOTHER SHOWER, ADVISED NURSES WERE BUSY AT THIS TIME. DID WALK WITH PT TO WAITING ROOM TO FIND MAGAZINE. GIVEN COFFEE AND SODA PER PT REQUEST. PT HAS BEEN COOPERATIVE. DR LOO AWARE OF PTS BEHAVIOR.
--- NOTE | 2017-03-04 20:51 | NUR ---
INSULIN GTT WAS DC'D AT 2014.
--- NOTE | 2017-03-04 22:10 | NUR ---
REQUESTING TYLENOL FOR GENERALIZED ACHES AND PAINS. GIVEN WARM BLANKET. READY FOR SLEEP. INFORMED WILL RECHECKED BS AT 0200.
--- NOTE | 2017-03-05 02:15 | NUR ---
AWAKE, WAS UP ON OWN TO BR TO VOID. BS 145 AND GIVEN 1 UNIT INSULIN SUB Q. PT ASKED WHY HE WAS GETTING INSULIN WHEN HE WASN'T EATING CARBS. EXPLAINED WAS STILL GETTING COVERAGE WHILE RECOVERING FROM DKA.
--- NOTE | 2017-03-05 04:48 | NUR ---
SLEEPING. RESP REG.
--- NOTE | 2017-03-05 05:22 | NUR ---
BS CHECKED WITH LAB DRAW, BS 84. PT OFFERED PEANUT BUTTER AND CRACKERS SNACK UNTIL ABLE TO GET BREAKFAST. PT DECLINED. SNACK LEFT AT BEDSIDE.
--- NOTE | 2017-03-05 06:29 | NUR ---
SLEEPING AT THIS TIME.
--- NOTE | 2017-03-05 08:15 | NUR ---
ASSSSMENT DONE. DENIES PROBLEMS.
--- NOTE | 2017-03-05 09:30 | NUR ---
DR. LOO HERE TO SEE PATIENT. PATIENT TO BE DISCHARGED TODAY.
--- NOTE | 2017-03-05 10:00 | NUR ---
DISCHARGE INSTRUCTIONS GIVEN WITH PATIENT UNDERSTANDING.
--- NOTE | 2017-03-05 10:00 | NUR ---
ACCUCHECK-302. NOVOLOG INSULIN 4 UNITS GIVEN.
[2017-03-05] MEDS ORDERED: LANTUS SOL100 UNIT/1 SUB-Q (10:09)
[2017-03-05] MEDS ORDERED: INSULIN PEN NE1 EAC3 SUB-Q (10:14)
[2017-03-05] MEDS ORDERED: NOVOLOG FL100 UNIT/1 SUB-Q (10:14)
--- NOTE | 2017-03-05 10:19 | NUR ---
MOVING AROUND IN ROOM. WILL BE DISCHAGED TODAY. READY FOR SHOWER.
--- NOTE | 2017-03-05 10:40 | NUR ---
SL DC'D WITH CATH INTACT.
--- NOTE | 2017-03-05 11:06 | NUR ---
DISCHARGED VIA W/C ACCOMP BY MANAGER DESKTOP 2.
--- NOTE | 2017-03-05 13:47 | NUR ---
PT FEELING BETTER, STRUGGLED AND GOT UPSET WHEN HE BEGAN TO FIGURE OUT TOO MANY THINGS HAPPENING IN HIS LIFE. WORKED TO FOCUS HIM ON JUST GETTING HIS HEALTH BACK ON TRACK. ERIKA BOWENS SAID HE WAS DOING A GREAT JOB. PT REQUESTED PRAYER, WILL CONTINUE TO FOLLOW NEEDED
== END 2017-03-05 10:55 | disposition home or self-care (01) | DRG 638 ==
LOC: ED 18:10 → CCU 23:33
PROVIDERS: ADMIT Internal Medicine
DX: E10.10 Type 1 diabetes mellitus with ketoacidosis without coma (principal); F20.89 Other schizophrenia; Z79.4 Long term (current) use of insulin; Z91.19 Patient's noncompliance with other medical treatment and regimen; E86.0 Dehydration; F90.9 Attention-deficit hyperactivity disorder, unspecified type; F17.200 Nicotine dependence, unspecified, uncomplicated; Z59.0 Homelessness
CPT/HCPCS: 36415; 80048; 80053; 81001; 82010; 82800; 83036; 83735; 84100; 85025; 96361; 96374; 96375; 96376; 99285; J2405; J7030; J7042

== ENCOUNTER 2017-03-19 19:55 | Emergency (ER) | payer OTHER ==
[~2017-03-19] VITALS: Ht 175.3 cm; Wt 61.1 kg
[~2017-03-19 19:55] MED LIST changes: +CYMBALTA30 MG PO; +HUMULIN R500 UNIT/1 SUB-Q; +INSULIN PEN NE1 EAC3 SUB-Q
[2017-03-19] MEDS ORDERED: LANTUS100 UNITS/ SUB-Q (20:09)
[2017-03-19] MEDS ORDERED: HUMALOG100 UNITS/ IV (20:09)
[2017-03-19] MEDS ORDERED: NICORETTE4 M1 BUCCAL (20:12)
--- OUTSIDE RECORDS SUMMARY | 2017-03-19 20:22 | XMS ---
Demographics + + + | Address | [address] | | | [address] | | | [place] [address] | + + + | Preferred Language | Unknown | + + + | Marital Status | Unknown | + + + | Restoration Affiliation | Unknown | + + + | Race | Unknown | + + + | Ethnic Group | Unknown | + + + Author + + + | Author | [facility] | + + + | Organization | [facility] | + + + | Address | [address] | | | [place] [address] | + + + | Phone | | + + + Care Team Providers + + + + | Care Tangled Yarn Spool Straightener Name | Role | Phone | + + + + Unavailable | Unavailable | + + + + PROBLEMS +---------+ + + +--------+ + + | Type | Condition | ICD9-CM | [id number] | Onset | Condition | SNOMED | | | | Code | Code | Dates | Status | Code | +---------+ + + +--------+ + + | Problem | snf | Z79.4 | | | Active | [id number] | | | current | | | | | | | | use of | | | | | | | | insulin | | | | | | +---------+ + + +--------+ + + | Problem | Diabetes | | E08.65 | | Active | 5408889 | | | mellitus | | | | | | | | due to | | | | | | | | underlying | | | | | | | | condition | | | | | | | | with | | | | | | | | hyperglyce | | | | | | | | hammad | | | | | | +---------+ + + +--------+ + + | Problem | Ketoacidos | E13.10 | | | Active | 472370362 | | | is due to | | | | | | | | diabetes | | | | | | +---------+ + + +--------+ + + | 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 | | | Active | 12789525 | | | ctive | | | | | | | | disorder | | | | | | +---------+ + + +--------+ + + | Problem | Hypertensi | | I10 | | Active | 12139028 | | | on | | | | | | +---------+ + + +--------+ + + | Problem | Pain in | | M79.671 | | Active | 1556604828 | | | right foot | | | | | [address] | +---------+ + + +--------+ + + | Problem | Callous | L98.499 | | | Active | 028287382 | | | ulcer | | | | | | +---------+ + + +--------+ + + | 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 | | | Active | 129079505 | | | thrive in | | | | | | | | adult | | | | | | +---------+ + + +--------+ + + | Problem | Smoking | | F17.200 | | Active | 454504431 | +---------+ + + +--------+ + + | Problem | Insomnia | | G47.00 | | Active | 944569167 | +---------+ + + +--------+ + + | Problem | 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 | | | Active | 4351896407 | | | hammad due to | | | | | [address] | | | type 1 | | | | | | | | diabetes | | | | | | | | mellitus | | | | | | +---------+ + + +--------+ + + ALLERGIES No Information SOCIAL HISTORY Never Assessed PLAN OF CARE VITAL SIGNS MEDICATIONS Unknown Medications RESULTS No Results PROCEDURES No Known procedures IMMUNIZATIONS No Known Immunizations MEDICAL (GENERAL) HISTORY + + +------+ | Type | Description | Date | + + +------+ | Medical History | Patient is a 35-year-old | | | | white male who [facility] | | | | [facility] | | | | [facility]. He has a history | | | | of diabetes and recent | | | | episodes of ketoacidosis | | | | .He was seen by Dr. Fritz | | | | initially prior to | | | | admission in the ER. In | | | | addition to type 1 | | | | diabetes, he also has | | | | schizophrenia, ADHD, and | | | | asthma. He also smokes | | | | 1-1/2 packs of cigarettes a | | | | day. | | + + +------+ | Medical History | Mental health: depression, | | | | schizzoaffective disorder, | | | | ADHD: managed by [employer] | | + + +------+ | Medical History | Asthma | | + + +------+ | Medical History | allergies | | + + +------+ | Medical History | insomnia | | + + +------+ | Surgical History | tonsilectomy | | + + +------+ | Surgical History | oral surgery | | + + +------+ | Hospitalization History | DKA | | + + +------+"
--- OUTSIDE RECORDS SUMMARY | 2017-03-19 20:22 | XMS ---
Demographics + + + | Address | [address] | | | [address] | | | [place] [address] | + + + | Preferred Language | Unknown | + + + | Marital Status | Unknown | + + + | Sabianist Affiliation | Unknown | + + + | Race | Unknown | + + + | Ethnic Group | Unknown | + + + Author + + + | Author | [facility] | + + + | Organization | [facility] | + + + | Address | [address] | | | [place] [address] | + + + | Phone | | + + + Care Team Providers + + + + | Care Utility Inspector Name | Role | Phone | + + + + Unavailable | Unavailable | + + + + PROBLEMS +---------+ + + +--------+ + + | Type | Condition | ICD9-CM | [id number] | Onset | Condition | SNOMED | | | | Code | Code | Dates | Status | Code | +---------+ + + +--------+ + + | Problem | [facility] | Z79.4 | | | Active | 095970632 | | | current | | | | | | | | use of | | | | | | | | insulin | | | | | | +---------+ + + +--------+ + + | Problem | Diabetes | | E08.65 | | Active | 3568796 | | | mellitus | | | [...] | E13.10 | | | Active | 132567283 | | | is due to | | | | | | | | diabetes | | | | | | +---------+ + + +--------+ + + | 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 | | | Active | 12414835 | | | ctive | | | | | | | | disorder | | | | | | +---------+ + + +--------+ + + | Problem | Hypertensi | | I10 | | Active | 26330567 | | | on | | | | | | +---------+ + + +--------+ + + | Problem | Pain in | | M79.671 | | Active | 8543068146 | | | right foot | | | | | [address] | +---------+ + + +--------+ + + | Problem | Callous | L98.499 | | | Active | 752287714 | | | ulcer | | | | | | +---------+ + + +--------+ + + | 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 | | | Active | 077849178 | | | thrive in | | | | | | | | adult | | | | | | +---------+ + + +--------+ + + | Problem | Smoking | | F17.200 | | Active | 547367718 | +---------+ + + +--------+ + + | Problem | Insomnia | | G47.00 | | Active | 499045459 | +---------+ + + +--------+ + + | Problem | 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 | | | Active | 8715758036 | | | hammad due to | | | | | [address] | | | type 1 | | [...] [facility] | | | | [facility] | | | | 02/21/16. He has [...] | | | | ADHD: managed by [employer] | | + + +------+ | Medical [...]
--- OUTSIDE RECORDS SUMMARY | 2017-03-19 20:22 | XMS ---
Demographics + + + | Address | [address] | | | [address] | | | [place] [address] | + + + | Preferred Language | Unknown | + + + | Marital Status | Unknown | + + + | Adventist Affiliation | Unknown | + + + | Race | Unknown | + + + | Ethnic Group | Unknown | + + + Author + + + | Author | [facility] | + + + | Organization | [facility] | + + + | Address | [address] | | | [place] [address] | + + + | Phone | | + + + Care Team Providers + + + + | Care Clip Riveter Name | Role | Phone | + + + + Unavailable | Unavailable | + + + + PROBLEMS +---------+ + + +--------+ + + | Type | Condition | ICD9-CM | [id number] | Onset | Condition | SNOMED | | | | Code | Code | Dates | Status | Code | +---------+ + + +--------+ + + | Problem | long-term | Z79.4 | | | Active | 522249236 | | | current | | | | | | | | use of | | | | | | | | insulin | | | | | | +---------+ + + +--------+ + + | Problem | Diabetes | | E08.65 | | Active | 8497989 | | | mellitus | | | [...] | E13.10 | | | Active | 176117746 | | | is due to | | | | | | | | diabetes | | | | | | +---------+ + + +--------+ + + | 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 | | | Active | 05624603 | | | ctive | | | | | | | | disorder | | | | | | +---------+ + + +--------+ + + | Problem | Hypertensi | | I10 | | Active | 06385144 | | | on | | | | | | +---------+ + + +--------+ + + | Problem | Pain in | | M79.671 | | Active | 3833885018 | | | right foot | | | | | [address] | +---------+ + + +--------+ + + | Problem | Callous | L98.499 | | | Active | 302665808 | | | ulcer | | | | | | +---------+ + + +--------+ + + | 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 | | | Active | 884106268 | | | thrive in | | | | | | | | adult | | | | | | +---------+ + + +--------+ + + | Problem | Smoking | | F17.200 | | Active | 597136387 | +---------+ + + +--------+ + + | Problem | Insomnia | | G47.00 | | Active | 234518103 | +---------+ + + +--------+ + + | Problem | 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 | | | Active | 6944251607 | | | hammad due to | | | | | [address] | | | type 1 | | [...] [facility] | | | | [facility] | | | | 02/[facility]. [...] | | | | ADHD: managed by [facility] | | + + +------+ | Medical [...]
[2017-03-19] MEDS ORDERED: ZITHROMAX250 MG PO (20:44)
[2017-03-19] MEDS ORDERED: PROVENTIL HFA6.7 GM INH (20:44)
== END 2017-03-19 20:58 | disposition home or self-care (01) ==
LOC: ED 19:55
DX: J06.9 Acute upper respiratory infection, unspecified (principal); J20.9 Acute bronchitis, unspecified; E10.9 Type 1 diabetes mellitus without complications; F31.9 Bipolar disorder, unspecified; F90.9 Attention-deficit hyperactivity disorder, unspecified type; F17.200 Nicotine dependence, unspecified, uncomplicated; Z90.89 Acquired absence of other organs; Z88.8 Allergy status to other drugs, medicaments and biological substances; Z88.6 Allergy status to analgesic agent; Z79.899 Other long term (current) drug therapy; Z79.4 Long term (current) use of insulin
CPT/HCPCS: 94640; 99283

== ENCOUNTER 2017-03-26 21:58 | Emergency (ER) | payer OTHER ==
[~2017-03-26] VITALS: Ht 175.3 cm; Wt 61.1 kg
[~2017-03-26 21:58] MED LIST changes: +HUMALOG100 UNITS/ IV; +ZITHROMAX250 MG PO
== END 2017-03-26 22:25 | disposition left against medical advice (07) ==
LOC: ED 21:58
DX: Z53.21 Procedure and treatment not carried out due to patient leaving prior to being seen by health care provider (principal)

== ENCOUNTER 2017-03-27 18:23 | Observation (INO) | payer OTHER ==
[~2017-03-27] VITALS: Ht 175.3 cm; Wt 57.3 kg
--- NOTE | 2017-03-27 21:40 | NUR ---
PT ARRIVES TO CCU ROOM 127 WITH DKA, HAD NAUSEA/VOMITING FOR A FEW DAYS, TYPE 1 DIABETIC, COULD TELL HIS SUGARS WERE HIGH. INITIAL BLOOD SUGARS IN ER WERE OVER 500. ARRIVES SLEEPY BUT AROUSABLE, TRANSFERS TO BED BY HIMSELF STEADY ON FEET, HAS INSULIN DRIP INFUSING AT 5.05 UNITS/HR AND C/O HEARTBURN. ADMISSION AND ASSESSMENT COMPLETED AND PLAN OF CARE EXPLAINED TO THE PATIENT WHO JUST WANTS TO SLEEP AT THIS TIME. GI COCKTAIL GIVEN AND PT REPORTS HEARTBURN GONE AFTERWARDS. WILL START HOURLY BLOOD SUGAR CHECKS AND TITRATE INSULIN DRIP. DENIES NEED TO VOID AT THIS TIME, RECENTLY VOIDED 1500ML IN THE ER.
--- NOTE | 2017-03-27 23:42 | NUR ---
PT CONTINUES TO SLEEP, RESTING HR 95, RR 20. INSULIN DRIP AND IVF INFUSING WITHOUT DIFFICULTY.
--- NOTE | 2017-03-28 03:21 | NUR ---
BLOOD SUGAR 142, IVF SWITCHED TO D5NS WITH 20KCL AT 250/HR. PT CONTINUES TO SLEEP, HR 85, RR 19. INSULING DRIP TURNED DOWN TO 2.7 UNITS/HR.
--- NOTE | 2017-03-28 06:38 | NUR ---
PT CONTINUES TO SLEEP. INSULIN DRIP INFUSING AT 1.2 UNITS/HR.
--- NOTE | 2017-03-28 07:50 | NUR ---
CALLED GAVE ORDER TO STOP INSULIN DRIP IN ONE HOUR.
--- NOTE | 2017-03-28 08:10 | NUR ---
IV SITE INTACT, NO REDNESS OR SWELLING NOTED, PT DENIES PAIN AT SITE, FLUIDS INFUSING EASILY. PT DENIES NAUSEA, SOB, AND PAIN. PT APPEARS DROWSY AND QUIET.
--- NOTE | 2017-03-28 08:50 | NUR ---
INSULIN DRIP TURNED OFF.
--- NOTE | 2017-03-28 09:20 | NUR ---
PT GIVEN DR.REDDY TANMAY ADVANCED DIET TO ADA.
--- NOTE | 2017-03-28 09:34 | NUR ---
PT EATING BREAKFAST AT THIS TIME, APPITITE IS GOOD, PT DENIES NAUSEA, SOB, AND PAIN AT THIS TIME. PT AFFECT IS FLAT, GIVES ONE WORD RESPONSES TO QUESTIONS.
--- NOTE | 2017-03-28 10:41 | NUR ---
IN THE ROOM TALKING WITH PT. PT SLOW TO RESPOND. IS ABLE TO WAKE UP AND TALK.
[2017-03-28] MEDS ORDERED: PROVENTIL HFA6.7 GM INH (10:48)
[2017-03-28] MEDS ORDERED: BENZONATATE100 MG PO (10:49)
[2017-03-28] MEDS ORDERED: NICORETTE4 M2 BUCCAL (10:49)
[2017-03-28] MEDS ORDERED: LANTUS SOL100 UNIT/1 SUB-Q ×2 (10:50→10:52)
[2017-03-28] MEDS ORDERED: ONDANSETRON HCL4 MG PO (10:51)
[2017-03-28] MEDS ORDERED: FAMOTIDINE20 MG PO (10:56)
--- NOTE | 2017-03-28 12:40 | NUR ---
PT ABLE TO EAT 50% OF HIS LUNCH. PT DENIES NAUSEA AND SOB AT THIS TIME. PT ABLE TO AMBULATE EASILY ON HIS OWN. PT DENIES PAIN IN GENERAL. VITALS WNL.
--- NOTE | 2017-03-28 22:14 | EKG ---
[facility] [address] [facility] [place] [address] Signed Normal sinus rhythm Nonspecific ST abnormality Abnormal ECG No previous ECGs available Confirmed by RICK LOO MD ([id number]) on 03/28/2017 10:14:32 PM Electronically Signed By: RICK LOO MD 03/28/17 2214 PATIENT NAME: PRIYA WOMACK Electrocardiogram DATE OF : 80 PHYSICIAN: RICK LOO MD REPORT #: [id number] REPORT IS CONFIDENTIAL AND NOT TO BE RELEASED WITHOUT AUTHORIZATION
== END 2017-03-28 12:50 | disposition home or self-care (01) ==
LOC: ED 18:23 → CCU 18:24 → ED 21:01 → CCU 03-28 12:50
PROVIDERS: ADMIT Internal Medicine
DX: E10.10 Type 1 diabetes mellitus with ketoacidosis without coma (principal); F25.0 Schizoaffective disorder, bipolar type; F90.9 Attention-deficit hyperactivity disorder, unspecified type; F17.200 Nicotine dependence, unspecified, uncomplicated; N17.9 Acute kidney failure, unspecified; R65.10 Systemic inflammatory response syndrome (SIRS) of non-infectious origin without acute organ dysfunction; K29.00 Acute gastritis without bleeding; R05 Cough; R07.89 Other chest pain; Z88.8 Allergy status to other drugs, medicaments and biological substances; Z79.899 Other long term (current) drug therapy; Z91.14 Patient's other noncompliance with medication regimen
CPT/HCPCS: 36415; 80048; 80053; 82010; 82800; 83735; 85025; 93005; 93010; 94640; 96361; 96374; 96375; 96376; 99285; G0378; J7030

== ENCOUNTER 2017-04-03 10:04 | Inpatient (IN) | payer OTHER ==
[~2017-04-03] VITALS: Ht 175.3 cm; Wt 59.0 kg
[~2017-04-03 10:04] MED LIST changes: +BENZONATATE100 MG PO; +FAMOTIDINE20 MG PO; +NICORETTE4 M2 BUCCAL; +ONDANSETRON HCL4 MG PO
--- NOTE | 2017-04-03 13:30 | NUR ---
PT ADDMITTED VIA STREACHER, TRANSFERED SELF TO BED. PT WAS WANTING SOMETHIN TO DRINK AT THIS TIME, AFTER ORDERS VERFIED PT WAS ABLE TO HAVE CLEAR LIQUID TRAY, SUGAR FREE. PT JOANNE-THIS WELL. PT IS COOPERATIVE WITH HOSPITAL ROUTINE AT THIS TIME. AT 15:18 PT APPEARS TO BE SLEEPING.
--- NOTE | 2017-04-03 15:33 | NUR ---
pt just voided, CLEAR YELLOW IN COLOR.
--- NOTE | 2017-04-03 15:34 | NUR ---
PT IS CURRENLTY REFUSING TO HAVE LABS AT THIS TIME, CURRENTLY HE IS TALKING WITH DR LOO AND HAS SOMEWHAT AGREED TO HAVE LABS IF WE ALLOW HIM TO EAT.
--- NOTE | 2017-04-03 15:38 | NUR ---
LAB NOTIFIED TO COME BACK AND TRY AGAIN DUE TO PT AGREED TO HAVE LABS COMPLETED.
--- NOTE | 2017-04-03 17:31 | NUR ---
PT SITTING UP IN BED EATTING DINNER AT THIS TIME. PT DOES NOT HAVE ANY TEETH SO HE TENDS TO ORDER SOFT ITEMS. PT IS COOPERATIVE WITH HOSPITAL ROUTINE AT THIS TIME.
--- NOTE | 2017-04-03 18:01 | NUR ---
PT APPEARS TO BE SLEEPING, CONTINUE TO COMPLETE HOURLY CBG'S AND FOLLOW CCU INSULIN PROTOCOL. SEE BG FLOW SHEET.
--- NOTE | 2017-04-03 19:01 | NUR ---
PT CONTIOUES TO BE COOPERATIVE WITH HOSPITAL ROUTINE AT THIS TIME, APPEARS TO BE SLEEPING, BUT IS AWAKE. CBG FOLLOW INSULIN PROTOCOL.
--- NOTE | 2017-04-03 19:40 | NUR ---
IN TO DO PT ASSESSMENT. PT DENIES PAIN, REQUESTS BROTH AND SOUP AND WATER. IVF INFUSING AT 200ML/HT. INSULIN DRIP INFUSING AT 8.4 UNITS/HR. PT EATS SNACK THEN LIES DOWN TO KEEP SLEEPING. IS COOPERATIVE AND FRIENDLY.
--- NOTE | 2017-04-03 20:23 | NUR ---
LAB IN TO DRAW.
--- NOTE | 2017-04-03 21:34 | NUR ---
CALL TO DR LOO TO UPDATE ON NEW LAB RESULTS, ORDERS GIVEN.
--- NOTE | 2017-04-03 22:30 | NUR ---
INSULIN DRIP TURNED OFF, PT DENIES NEEDS.
--- NOTE | 2017-04-04 | NUR ---
PT AWAKE, REQUESTING SOME MORE FOOD. GIVEN COTTAGE CHEESE, SALAD AND CHICKEN NOODLE SOUP WHICH HE ATE ALL OF. ASSESSMENT DONE THEN BACK DOWN TO SLEEP SOME MORE.
--- NOTE | 2017-04-04 02:28 | NUR ---
BLOOD SUGAR CHECK IS 135, NO INSULIN GIVEN PER SLIDING SCALE. PT AWAKENS AND WANTS ANOTHER SNACK, MORE SOUP GIVEN, PT UP EATING AT SIDE OF BED.
--- NOTE | 2017-04-04 04:37 | NUR ---
PT HAS BEEN SLEEPING AND RESTFUL THE LAST COUPLE OF HOURS.
--- NOTE | 2017-04-04 08:49 | NUR ---
PT ORDERED BKF EARLY IN THE SHIFT AND HAD IT EATTEN BEFORE THIS SOFTWARE CONFIGURATION ENGINEER RECEIVED REPORT. CBG COMPLETED AFTER HIS MEAL. PT WAS FOUND TO BE IN BED AWAKE, WITH EYES CLOSED. ANSWERES QUESTIONS WHEN SPOKEN TO. PT MOTHER IN THE ROOM AND STATES " I DON'T KNOW WHY YOU GIVE HIM LEVAMIR WHEN HE IS ALLEGIC TO IT" "WHEN HE WAS IN [facility] A WHILE BACK IT MADE HIS FEET, LEGS, BALL, AND PENIS SWELL UP". "SO WHY WOULD YOU GIVE HIM THIS?" EXPLAIND THAT I WOULD NOT GIVE HIM THIS MEDICATION AT THIS TIME AND WOULD TALK WITH DR LOO THIS AM. PT MOTHER STATES " OKAY THANKS WHILE LOOKING AT HER CELL PHONE" PT DID NOT TALK AT ALL DURNING THIS CONVERSATION.
--- NOTE | 2017-04-04 09:43 | NUR ---
PT TORE OFF HEART MONITOR, BP CUFF, AND O2 SAT MONITOR. PT IS NOT RESPONDING TO STAFF WHEN SPOKEN TOO. HE IS JUST LYING IN BED AND APPEARS TO BE SLEEPING RESP RATE REG AT THIS TIME.
--- NOTE | 2017-04-04 09:49 | NUR ---
TALKING WITH STAFF THAT TOOK CARE OF THIS PT ON THE March. PT RECEIVED HIS FLU VACCINE DURING THAT VISIT. SO THIS VISIT PT WILL NOT RECEIVE IT. DR LOO WILL BE NOTIFIED.
--- NOTE | 2017-04-04 10:00 | NUR ---
SPOKE WITH PATIENT IN ROOM 127. PATIENT AWAKENED TO NAME. PATIENT STATES HE "IS BETTER". DISCUSSED WITH PATIENT THAT I WOULD LIKE TO WORK WITH [employer] ON HIS BEHALF TO CASE MANAGE HIS ISSUES FROM THE MEDICAL AND MENTAL STANDPOINT. PATIENT STATES HE IS FINE WITH THIS. DISCUSSED THAT HE MUST SIGN A RELEASE OF INFORMATION FOR [employer] TO ALLOW THE HOSPITAL TO SPEAK WITH THEM AND HAVE ACCESS TO RECORDS THERE. HE STATED HE WOULD SIGN FORM. PATIENT IS SHAKEY, BUT SEEMS TO BE UNDERSTANDING CONVERSATION. FORM SIGNED. DISCUSSED WITH HIM THAT I WILL BE WORKING WITH DR LOO AND HIS PCP OFFICE AND [employer] TO FIND OUT IF THERE IS ANYWAY TO HELP HIM WITH HIS FREQUENT ILLNESS AND NEEDS. HE IS IN AGREEMENT WITH RECEIVING HELP. STAFF UPDATED. SPOKE WITH KIM MARTINEZ AT [facility]. SHE STATES PATIENT MISSED HIS FOLLOWUP APPOINTMENT LAST MONTH AFTER DISCHARGE FROM HOSPITAL. SHE WILL SPEAK WITH PCP, LANRE GARAY, LETTING HER KNOW PATIENT IS HOSPITALIZED AGAIN.
--- NOTE | 2017-04-04 11:00 | NUR ---
PT UP TO SHOWER AND THEN BACK TO THE ROOM, PT DID WELL WITH THIS. HE COMPLETED THIS TASK ON HIS OWN AFTER ALL SUPPLIES SET UP FOR PT. 1200: PT ORDER HIS OWN LUNCH AND ATE 100% OF IT. ASSESSMENT COMPLETED.
--- NOTE | 2017-04-04 13:42 | NUR ---
PT SITTING UP IN THE CHAIR, AND WALKING OUT IN THE DIAS IN CCU AT TIMES, HE IS COOPERATIVE WITH HOSPITAL ROUTINE SO FAR THIS SHIFT. HE IS EVEN COMING OUT TO THE NURSES STATION TO TALK WITH TYPEWRITER ASSEMBLY AND PARTS INSPECTOR. CURRENTLY HE IS HAVING A SNACK AT THIS TIME.
--- NOTE | 2017-04-04 14:17 | NUR ---
PT UP AMBULATING IN HIS ROOM AT THIS TIME. AT TIMES YOU WILL FIND HIM LOKING OUT THE WINDOW OF HIS AT STAFF.
--- NOTE | 2017-04-04 14:28 | NUR ---
PER DR LOO [facility] IS TO BE CALLED. THIS WAS COMPLETED AND [facility] GOGO WILL COME AND SEE PT.
--- NOTE | 2017-04-04 15:15 | NUR ---
PT MOTHER IS PRESENT AT THIS TIME, ALSO GOGO FROM [facility] IS PRESENT AT THIS TIME.
--- NOTE | 2017-04-04 16:10 | NUR ---
LIFEWAYS TALKING WITH CLIENT AND AFTER THE DICUSSION HE IS PSYCHOLIGICAL CLEARED AT THIS TIME. DR LOO NOTIFIED. NO NEW ORDERS AT THIS TIME.
--- NOTE | 2017-04-04 16:23 | NUR ---
PT WAS GIVEN THREE DIFFERENT AGENCIES THAT HE MAY BE ABLE TO GET HELP WITH HOUSING AND OTHER SERVICES THAT HE MAY NEED. THIS IS THE NAME OF THE SERVICES THAT WAS GIVEN: [facility], [facility], AND [facility]. THE PHONE NUMBERS AND ADDRESS WERE GIVEN TO THE PT. [employer] WAS PRESENT WHEN THIS INFORMATION WAS PRESENT TO HIM.
--- NOTE | 2017-04-04 16:42 | NUR ---
THIS KITCHEN AND BATH DESIGNER FOUND PT A BED AT [facility] IN [place], THIS PT NEEDS TO BE THERE BY 18:30 FOR CHECK IN. PT MOTHER WILL DRIVE PT OVER TO [place].
--- NOTE | 2017-04-04 17:03 | NUR ---
DISCHARGE INSTRUCTIONS GIVEN AT THIS TIME ALL QUESTIONS ANSWERED AT THIS TIME. PT IS GOING TO [facility] A CHECK FROM HIS [facility]YEE AND THEN HIS MOTHER WILL DRIVE HIM TO THE [facility] IN [place]. PT WAS VERY COOPERATIVE AND VERY THANKFUL FOR FINDING HIM A BED TONIGHT. PT AMBLATED OUT OF THE HOSPITAL WITH HIS MOTHER AT THIS TIME.
--- NOTE | 2017-04-04 17:06 | NUR ---
PT WAS GIVEN TO LUNCH BOXES OF FOOD TO GO WITH HIME DUE TO THE [facility] SERVES DINNER AT 17:00 AND CHECK IN IS AT 18:30 TO 19:00. PT MAY ARRIVE EARLY THOUGHT. DIRECTIONS GIVEN TO HIS MOTHER AND PT DOES KNOW WHERE IT IS LOCATED. DISCHARGE INSTRUCTION GIVEN AND PT KNOWS AND HAS ALL OF HIS CURRENT MEDICATIONS THAT HE NEEDS TO BE TAKING.
== END 2017-04-04 17:00 | disposition home or self-care (01) | DRG 639 ==
LOC: ED 10:04 → CCU 13:05
PROVIDERS: ADMIT Internal Medicine
DX: E10.10 Type 1 diabetes mellitus with ketoacidosis without coma (principal); Z79.4 Long term (current) use of insulin; Z59.0 Homelessness; F25.9 Schizoaffective disorder, unspecified; F90.9 Attention-deficit hyperactivity disorder, unspecified type; F17.210 Nicotine dependence, cigarettes, uncomplicated; E86.0 Dehydration
CPT/HCPCS: 36415; 71010; 80048; 80053; 81001; 82010; 82800; 82803; 85025; 96374; 96375; 96376; 99285; J3480; J7030; J7040; J7042; J7120

== ENCOUNTER 2018-03-09 20:10 | Emergency (ER) | payer OTHER ==
[~2018-03-09] VITALS: Ht 175.3 cm; Wt 60.0 kg
--- OUTSIDE RECORDS SUMMARY | ~2018-03-09 | XMS | Clinical Summary ---
Demographics + + + | Address | [address] | | | [place] [address] | + + + | Preferred Language | Unknown | + + + | Marital Status | Single | + + + | Mandaen Affiliation | Unknown | + + + | Race | Unknown | + + + | Ethnic Group | Unknown | + + + Author + + + | Author | [facility] | + + + | Organization | [facility] | + + + | Address | Unknown | + + + | Phone | Unavailable | + + + Care Team Providers + +------+ + | Care Automatic Maintainer Name | Role | Phone | + +------+ + PP | Unavailable | + +------+ + Allergies + + + + + + | Active Allergy | Reactions | Severity | Noted | Comments | | | | | Date | | + + + + + + | Fexofenadine | Other (See Comments) | Medium | 08/16/20 | Unknown | | | | | [...] the skin 2 (two) | | | 820 | | e | | UNIT/ML | [...] pen | 1 Box | 11 | 01/21 | | Activ | | 31G X 8 MM | for subcutaneous | | | 820 | | e | | | administration [...] Exam | | | | | | 1 | | | + + + + + | Diabetic Foot Exam | | | | | | 1 | | | + + + + + | Microalbumin | | | | | Screening | 1 | | | + + + + + | Vaccine: | | | | | Dtap/Tdap/Td (1 - | 0 | | | | Tdap) | | | | + + + + + | Hemoglobin A1c | | 02/06/2016 | | | | 6 | | | + + + + + | Vaccine: Influenza | | | | | (#1) | 8 | | | + + + + + | Vaccine: | Completed | 02/08/2016 | | | Pneumococcal 19-64 | | | | | (PPSV23 only) Medium | | | | | Risk | | | | + + + [...] +------+-------+ + | MEDICAID | [place] | [id number] | | | [address] | | | N | | | | [place] | | | [place] | | | | [phone] | | | ADVANCE SCOUT | | | | | + +--------+ +------+-------+ + + +--------+ +--------+-------+ + | Guarantor Name | Accoun | Relation to | Date | Phone | Billing Address | | | t Type | Patient | of | | | | | | | | | | + +--------+ +--------+-------+ + | JONI KWON | Person | Self [birth year] | [address] | | | al/Fam | | 1981 | | [place] [address] | | | lisa | | | | | + +--------+ +--------+-------+ +
--- OUTSIDE RECORDS SUMMARY | ~2018-03-09 | XMS | Clinical Summary ---
Demographics + + + | Address | [address] | | | [place] [address] | + + + | Preferred Language | Unknown | + + + | Marital Status | Single | + + + | Pentecostal Affiliation | Unknown | + + + [...] Team Providers + +------+ + | Care Industrial Relations Analyst Name | Role | Phone | + [...] +------+-------+ + | MEDICAID | [place] | [id number] | | | [address] | | | N | | | | [place] | | | [place] | | | | [phone] | | | EXCHANGE TELLER | | | | | + +--------+ [...] | | 1981 | | [place] [address] | | | lisa | | | | | + +--------+ +--------+-------+ +
[~2018-03-09 20:10] MED LIST changes: +LITHIUM CARBON300 MG PO; +NOVOLOG100 UNIT/2; +STRATTERA40 MG PO
--- OUTSIDE RECORDS SUMMARY | 2018-03-09 20:16 | XMS ---
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 Details: [facility] - Group Notification - [facility] - Has Care Guidelines CARE PROVIDERS MELINDA Basilio or Statistical Methods Professor Current PHONE: [phone] JT PORTILLO Primary Care Current PHONE: Unknown CLEMENTE BUTLER Primary Care Current PHONE: Unknown Rai Hoskins Primary Care Current PHONE: Unknown Guidelines Source: [facility] Guidelines Date: 04/10/2017 Care Coordination: PATIENT IS CURRENTLY SEEING MELINDA BOURNE AT [facility](). CONTACT THEM IF PATIENTHAS SOCIAL OR MENTAL ISSUE NEEDS. E.[place]. VISIT COUNT (12 MO.) 6 [facility] [place] 6 [facility]. TOTAL 12 NOTE: Visits indicate total known visits. ED/UCC VISIT TRACKING (12 MO.) 03/09/2018 20:11 [facility] [place] TYPE: Emergency COMPLAINT: - BLOOD SUGAR PROBLEM 01/14/2018 15:[address] [facility] [address] [place] TYPE: Emergency COMPLAINT: - BLOOD SUGAR PROBLEMS [facility]07[facility]2017 11[facility] DIAGNOSES: - back pain - Emesis [facility]07/2017 07[facility] DIAGNOSES: - Nausea - Vomiting, unspecified - Vomiting - Emesis 05/01/2017 22:47 [facility] DIAGNOSES: - Emesis - Type 1 diabetes mellitus with ketoacidosis without coma - Nausea [facility]19[facility]2017 08:[facility] [place] [facility] DIAGNOSES: - Type 1 diabetes mellitus with hyperglycemia - residential (current) use of insulin - Chest pain, unspecified - stomach pain - Type 2 diabetes mellitus without complications - High Blood Sugar (Symptomatic) - Nausea with vomiting, unspecified 04/18/2017 11:30 [facility] [place] [facility] DIAGNOSES: - Diabetic complaint - Procedure and treatment not carried out due to patient leaving prior to being seen by health care provider 04/09/2017 09:07 [facility] [place] [facility] DIAGNOSES: - Cold-like Symptoms - cold like symptoms - Elevated Blood Sugar (Symptomatic) - Hyperglycemia, unspecified 04/03/2017 10:05 [facility] [place] TYPE: Emergency COMPLAINT: - VOMITING/BLOOD SUGAR PROBLEMS 03/27/2017 18:23 [facility] [place] TYPE: Emergency COMPLAINT: - DKA 03/26/2017 21:58 [facility] [place] TYPE: Emergency COMPLAINT: - BLOOD SUGAR ISSUES DIAGNOSES: - Procedure and treatment not carried out due to patient leaving prior to being seen by health care provider 03/19/2017 19:55 [facility] [place] TYPE: Emergency COMPLAINT: - SORE THROAT, SOB DIAGNOSES: - Acquired absence of other organs - Bipolar disorder, unspecified - Acute upper respiratory infection, unspecified - Allergy status to other drugs, medicaments and biological substances status - Attention-deficit hyperactivity disorder, unspecified type - Type 1 diabetes mellitus without complications - Cough - Other extermination inspector (current) drug therapy - Acute bronchitis, unspecified - Nicotine dependence, unspecified, uncomplicated - termite technician (current) use of insulin - Allergy status to analgesic agent status INPATIENT VISIT TRACKING (12 MO.) 05/07/2017 11:10 [facility] DIAGNOSES: - Type 1 diabetes mellitus with ketoacidosis without coma - Nausea - Emesis - Type 2 diabetes mellitus without complications - termite technician (current) use of insulin 05/01/2017 22:47 [facility] DIAGNOSES: - Type 1 diabetes mellitus with ketoacidosis without coma [email or web address]
[2018-03-09] MEDS ORDERED: DOXYCYCLINE HY100 MG PO (21:43)
== END 2018-03-09 21:54 | disposition home or self-care (01) ==
LOC: ED 20:10
DX: J20.9 Acute bronchitis, unspecified (principal); E10.9 Type 1 diabetes mellitus without complications; F17.200 Nicotine dependence, unspecified, uncomplicated; Z88.8 Allergy status to other drugs, medicaments and biological substances; Z91.038 Other insect allergy status; Z79.899 Other long term (current) drug therapy
CPT/HCPCS: 71046; 99283

== ENCOUNTER 2018-08-31 16:45 | Emergency (ER) | payer OTHER ==
[~2018-08-31] VITALS: Ht 175.3 cm; Wt 60.0 kg
[~2018-08-31 16:45] MED LIST changes: +AMBIEN5 MG; +ASPERCREME177.4 ML; +COZAAR25 MG; +DOXYCYCLINE HY100 MG PO; +LIPITOR10 MG; +NEURONTIN100 MG; +NICORETTE2 MG; +PHARBETOL325 MG; +PROPRANOLOL HCL20 MG
--- OUTSIDE RECORDS SUMMARY | 2018-08-31 16:48 | XMS ---
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 Details: [facility] CRITERIA MET - Group Notification - [facility] - Has Care Guidelines CARE PROVIDERS MELINDA Basilio or Ob/Gyn Current PHONE: [phone] JT PORTILLO Primary Care Current PHONE: Unknown CLEMENTE BUTLER Primary Care Current PHONE: Unknown Rai Hoskins Primary Care Current PHONE: Unknown Guidelines Source: [facility] Guidelines Date: 04/10/2017 Care Coordination: PATIENT IS CURRENTLY SEEING MELINDA BOUREN AT [facility](). CONTACT THEM IF PATIENTHAS SOCIAL OR MENTAL ISSUE NEEDS. E.D. VISIT COUNT (12 MO.) 4 [facility]. TOTAL 4 NOTE: Visits indicate total known visits. ED/UCC VISIT TRACKING (12 MO.) 08/31/2018 16:46 [facility] [place] [place] TYPE: Emergency COMPLAINT: - HIGH BLOOD SUGAR/WEAKNESS 06/11/2018 22:52 [facility] [place] TYPE: Emergency COMPLAINT: - VOMITING DIAGNOSES: - Nausea with vomiting, unspecified - Nicotine dependence, unspecified, uncomplicated - Other insect allergy status - Schizophrenia, unspecified - Bipolar disorder, unspecified - Acquired absence of other specified parts of digestive tract - terminal computer operator (current) use of inhaled steroids - Attention-deficit hyperactivity disorder, unspecified type - Type 1 diabetes mellitus with hyperglycemia - Allergy status to other drugs, medicaments and biological substances status 03/09/2018 20:[address] [facility] [place] TYPE: Emergency COMPLAINT: - BLOOD SUGAR PROBLEM DIAGNOSES: - Acute bronchitis, unspecified - Other long-term (current) drug therapy - Cough - Type 1 diabetes mellitus without complications - Allergy status to other drugs, medicaments and biological substances status - Nicotine dependence, unspecified, uncomplicated - Other insect allergy status 01/14/2018 15:29 [facility] [place] TYPE: Emergency COMPLAINT: - BLOOD SUGAR PROBLEMS INPATIENT VISIT TRACKING (12 MO.) No inpatient visits to display in this time frame [email or web address]
[2018-08-31] MEDS ORDERED: NOVOLOG100 UNIT/2 SUB-Q (17:04)
--- NOTE | 2018-08-31 22:09 | EKG ---
[facility] [address] [facility] [facility] [place] [address] Signed Normal sinus rhythm Early repolarization Normal ECG When compared with ECG of 28-MAR-2017 10:56, Nonspecific T wave abnormality no longer evident in Inferior leads Confirmed by CLOTILDE BATISTA MD ([id number]) on 08/31/2018 10:08:43 PM Electronically Signed By: CLOTILDE BATISTA MD 08/31/18 2209 PATIENT NAME: VUPRIYA VIKTOR Electrocardiogram DATE OF : 80 PHYSICIAN: CLOTILDE BATISTA MD REPORT #: [id number] REPORT IS CONFIDENTIAL AND NOT TO BE RELEASED WITHOUT AUTHORIZATION
== END 2018-08-31 19:58 | disposition home or self-care (01) ==
LOC: ED 16:45
DX: E10.65 Type 1 diabetes mellitus with hyperglycemia (principal); F31.9 Bipolar disorder, unspecified; F90.9 Attention-deficit hyperactivity disorder, unspecified type; F20.9 Schizophrenia, unspecified; F17.200 Nicotine dependence, unspecified, uncomplicated; Z90.49 Acquired absence of other specified parts of digestive tract; Z91.038 Other insect allergy status; Z88.8 Allergy status to other drugs, medicaments and biological substances; Z79.899 Other long term (current) drug therapy
CPT/HCPCS: 71045; 80053; 81001; 82010; 84484; 85025; 93005; 93010; 96361; 96374; 99284-25; 99406; G0480; J1815; J7030

== ENCOUNTER 2019-03-21 22:26 | Emergency (ER) | payer OTHER ==
[~2019-03-21] VITALS: Ht 175.3 cm; Wt 59.9 kg
--- OUTSIDE RECORDS SUMMARY | ~2019-03-21 | XMS | Clinical Summary ---
Demographics + + + | Address | [address] | | | [place] [address] | + + + | Preferred Language | Unknown | + + + | Marital Status | Single | + + + | Buddhism Affiliation | Unknown | + + + | Race | Unknown | + + + | Ethnic Group | Unknown | + + + Author + + + | Author | [facility] [employer] 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
[~2019-03-21 22:26] MED LIST changes: +NOVOLOG100 UNIT/2 SUB-Q
== END 2019-03-21 23:36 | disposition home or self-care (01) ==
LOC: ED 22:26
DX: R05 Cough (principal); E10.9 Type 1 diabetes mellitus without complications; F17.200 Nicotine dependence, unspecified, uncomplicated; Z91.030 Bee allergy status; Z88.5 Allergy status to narcotic agent; Z88.8 Allergy status to other drugs, medicaments and biological substances; Z79.899 Other long term (current) drug therapy
CPT/HCPCS: 71046; 99283-25

== ENCOUNTER 2019-05-07 19:11 | Emergency (ER) | payer OTHER ==
[~2019-05-07] VITALS: Ht 175.3 cm; Wt 63.6 kg
--- OUTSIDE RECORDS SUMMARY | ~2019-05-07 | XMS | Clinical Summary ---
Demographics + + + | Address | [address] | | | [place] [address] | + + + | Preferred Language | Unknown | + + + | Marital Status | Single | + + + | Temple Affiliation | Unknown | + + + | Race | Unknown | + + + | Ethnic Group | Unknown | + + + Author + + + | Author | [facility] (Historical as of | | | 02-06-19) | + + + | Organization | [facility] (Historical as of | | | 02-06-19) | + + + | Address | Unknown | + + + | Phone | Unavailable | + + + Care Team Providers + +------+ + | Care Foxing Painter Name | Role | Phone | + +------+ + PP | Unavailable | + +------+ + Allergies + + + + + + | Active Allergy | Reactions | Severity | Noted | Comments | | | | | Date | | + + + + + + | Fexofenadine | Other (See Comments) | Medium | 02/06/20 | Unknown | | | | | 16 | | + + + + + + | Haloperidol | Other (See Comments) | Medium | 02/06/20 | Unknown | | | | | 16 | | + + + + + + | Risperidone | Other (See Comments) | Medium | 02/06/20 | unknown | | | | | 16 | | + + + + + + | Shellfish Allergy | Swelling | Medium | 02/06/20 | | | | | | 16 | | + + + + + + Current Medications + + +---------+---------+------+------+-------+ | Prescription | Sig. | Disp. | Refills | Star | End | Statu | | | | | | t | Date | s | | | | | | Date | | | + + +---------+---------+------+------+-------+ | insulin lispro, | Inject 1 Units into | | | | | Activ | | human, (HUMALOG) 100 | the skin 3 (three) | | | | | e | | UNIT/ML injection | times daily before | | | | | | | | meals. One unit for | | | | | | | | above 135 blood | | | | | | | | glucose. For every | | | | | | | | 25 blood glucose | | | | | | | | above 135 one | | | | | | | | additional unit. | | | | | | + + +---------+---------+------+------+-------+ | aspirin 81 MG EC | Take 81 mg by mouth | | | | | Activ | | tablet | daily with | | | | | e | | | breakfast. | | | | | | + + +---------+---------+------+------+-------+ | atomoxetine | Take 80 mg by mouth | | | | | Activ | | (STRATTERA) 80 MG | daily. | | | | | e | | capsule | | | | | | | + + +---------+---------+------+------+-------+ | albuterol | Take 2.5 mg by | | | | | Activ | | (PROVENTIL) (2.5 | nebulization every 4 | | | | | e | | MG/3ML) 0.083% | (four) hours as | | | | | | | nebulizer solution | needed for Wheezing. | | | | | | + + +---------+---------+------+------+-------+ | zolpidem (AMBIEN) | Take 5 mg by mouth | | | | | Activ | | 5 MG tablet | nightly as needed | | | | | e | | | for Sleep. | | | | | | + + +---------+---------+------+------+-------+ | propranolol | Take 30 mg by mouth | | | | | Activ | | (INDERAL) 20 MG | 2 (two) times daily. | | | | | e | | tablet | | | | | | | + + +---------+---------+------+------+-------+ | atorvastatin | Take 10 mg by mouth | | | | | Activ | | (LIPITOR) 10 MG | nightly. | | | | | e | | tablet | | | | | | | + + +---------+---------+------+------+-------+ | insulin detemir | Inject 13 Units into | 15 mL | 12 | 01/21 | | Activ | | (LEVEMIR) 100 | the skin 2 (two) | | | 8/20 | | e | | UNIT/ML | times daily. | | | 16 | | | | injectionIndications | Indications: | | | | | | | : Type 1 Diabetes | Insulin-Dependent | | | | | | | Mellitus | Diabetes | | | | | | + + +---------+---------+------+------+-------+ | insulin pen needle | Use with insulin pen | 1 Box | 11 | 08/1 | | Activ | | 31G X 8 MM | for subcutaneous | | | 8/20 | | e | | | administration of | | | 16 | | | | | insulin. | | | | | | + + +---------+---------+------+------+-------+ Active Problems + + + | Problem | Noted Date | + + + | Diabetic ketoacidosis without coma associated with type 1 | 02/06/2016 | | diabetes mellitus (HCC) | | + + + | Schizophrenia (HCC) | 02/06/2016 | + + + | Attention-deficit hyperactivity disorder, predominantly | 02/06/2016 | | hyperactive type | | + + + | Depression | 02/06/2016 | + + + | Leukocytosis (leucocytosis) | 02/06/2016 | + + + | Dehydration | 02/06/2016 | + + + Immunizations + + + + | Name | Dates Previously Given | Next Due | + + + + | Pneumococcal | 02/08/2016 | | | Polysaccharide | | | | 23-valent | | | + + + + Social History + +-------+ +--------+------+ | Tobacco Use | Types | Packs/Day | Years | Date | | | | | Used | | + +-------+ +--------+------+ | Current Every Day | | 1 | | | | Smoker | | | | | + +-------+ +--------+------+ + + +---------+ + | Alcohol Use | Drinks/We | oz/Week | Comments | | | ek | | | + + +---------+ + | No | | | | + + +---------+ + + + + | Sex Assigned at | Date Recorded | | | | + + + | Not on file | | + + + Last Filed Vital Signs + + + + | Vital Sign | Reading | Time Taken | + + + + | Blood Pressure | 133/88 | 02/08/2016 12:16 PM PDT | + + + + | Pulse | 75 | 02/08/2016 12:16 PM PDT | + + + + | Temperature | 36.8 C (98.2 F) | 02/08/2016 12:16 PM PDT | + + + + | Respiratory Rate | 18 | 02/08/2016 12:16 PM PDT | + + + + | Oxygen Saturation | 99% | 02/08/2016 12:16 PM PDT | + + + + | Inhaled Oxygen | - | - | | Concentration | | | + + + + | Weight | 60 kg (132 lb 4.4 | 02/07/2016 3:40 AM PDT | | | oz) | | + + + + | Height | 176.5 cm (5' 9.5") | 02/06/2016 8:50 AM PDT | + + + + | Body Mass Index | 19.25 | 02/07/2016 3:40 AM PDT | + + + + Plan of Treatment + + + + + | Health Maintenance | Due Date | Last Done | Comments | + + + + + | Vaccine: | | | | | Dtap/Tdap/Td (1 - | 0 | | | | Tdap) | | | | + + + + + | Vaccine: Influenza | | | | | (#1) | 9 | | | + + + + + Results Not on filefrom Last 3 Months Insurance + +--------+ +------+-------+ + | Payer | Benefi | Subscriber | Type | Phone | Address | | | t Plan | ID | | | | | | / | | | | | | | Group | | | | | + +--------+ +------+-------+ + | MEDICAID | [employer] | [id number] | | | [address] | | | N | | | | [place] | | | [place] | | | | [phone] | | | 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
--- OUTSIDE RECORDS SUMMARY | ~2019-05-07 | XMS | Clinical Summary ---
Demographics + + + | Address | [address] | | | [place] [address] | + + + | Preferred Language | Unknown | + + + | Marital Status | Single | + + + | Synagogue Affiliation | Unknown | + + + | Race | Unknown | + + + | Ethnic Group | Unknown | + + + Author + + + | Author | [facility] (Historical as of | | | 02-06-19) | + + + | Organization | [facility] (Historical as of | | | 02-06-19) | + + + | Address | Unknown | + + + | Phone | Unavailable | + + + Care Team Providers + +------+ + | Care Poultry Hanger Name | Role | Phone | + [...] +------+-------+ + | MEDICAID | [employer] | [id number] | | | [address] | | | N | | | | [place] | | | [place] | | | | [phone] | | | 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
[2019-05-07] MEDS ORDERED: BASAGLAR K100 UNIT/1 SUB-Q (19:35)
[2019-05-07] MEDS ORDERED: LISINOPRIL5 MG PO (19:35)
[2019-06-04] MEDS ORDERED: ABILIFY5 MG PO (21:39)
== END 2019-05-07 22:07 | disposition home or self-care (01) ==
LOC: ED 19:11
DX: E10.9 Type 1 diabetes mellitus without complications (principal); F31.9 Bipolar disorder, unspecified; F17.200 Nicotine dependence, unspecified, uncomplicated; Z88.8 Allergy status to other drugs, medicaments and biological substances; Z91.038 Other insect allergy status; Z79.899 Other long term (current) drug therapy; Z79.51 Long term (current) use of inhaled steroids
CPT/HCPCS: 80053; 81001; 82010; 82803; 83036; 85025; 96360; 96361; 99284-25; J7030

== ENCOUNTER 2019-05-17 18:50 | Emergency (ER) | payer OTHER ==
--- OUTSIDE RECORDS SUMMARY | ~2019-05-17 | XMS | Clinical Summary ---
Demographics + + + | Address | [address] | | | [place] [address] | + + + | Preferred Language | Unknown | + + + | Marital Status | Single | + + + | Orthodoxy Affiliation | Unknown | + + + | Race | Unknown | + + + | Ethnic Group | Unknown | + + + Author + + + | Author | [facility] (Historical as of | | | 02-06-19) | + + + | Organization | [facility] (Historical as of | | | 02-06-19) | + + + | Address | Unknown | + + + | Phone | Unavailable | + + + Care Team Providers + +------+ + | Care Office Correspondent Name | Role | Phone | + [...] +------+-------+ + | MEDICAID | [employer] | [id number] | | | [address] | | | N | | | | [place] | | | [place] | | | | [phone] | | | 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
--- OUTSIDE RECORDS SUMMARY | ~2019-05-17 | XMS | Clinical Summary ---
Demographics + + + | Address | [address] | | | [place] [address] | + + + | Preferred Language | Unknown | + + + | Marital Status | Single | + + + | Spiritism Affiliation | Unknown | + + + | Race | Unknown | + + + | Ethnic Group | Unknown | + + + Author + + + | Author | [facility] (Historical as of | | | 02-06-19) | + + + | Organization | [facility] (Historical as of | | | 02-06-19) | + + + | Address | Unknown | + + + | Phone | Unavailable | + + + Care Team Providers + +------+ + | Care Community Services Coordinator Name | Role | Phone | [...] +------+-------+ + | MEDICAID | [employer] | [id number] | | | [address] | | | N | | | | [place] | | | [place] | | | | [phone] | | | 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
[~2019-05-17 18:50] MED LIST changes: +BASAGLAR K100 UNIT/1 SUB-Q; +LISINOPRIL5 MG PO
== END 2019-05-17 19:29 | disposition left against medical advice (07) ==
LOC: ED 18:50
DX: Z53.21 Procedure and treatment not carried out due to patient leaving prior to being seen by health care provider (principal)

== ENCOUNTER 2019-07-04 21:09 | Emergency (ER) | payer OTHER ==
[~2019-07-04] VITALS: Ht 175.3 cm; Wt 61.4 kg
--- OUTSIDE RECORDS SUMMARY | ~2019-07-04 | XMS | Encounter Summary ---
Demographics + + + | Address | [address] | | | [place] [address] | + + + | Home Phone | | + + + | Preferred Language | Unknown | + + + | Marital Status | Single | + + + | Scientologist Affiliation | [id number] | + + + [...] Team Providers + +------+ + | Care Pediatric Dental Hygienist Name | Role | Phone | + +------+ + | Shavon Covington | PCP | | + +------+ + Reason for Visit +--------+ + | Reason | Comments | +--------+ + | Emesis | | +--------+ + Auth/Cert +--------+--------+ + + + + | Status | Reason | Specialty | Diagnoses / | Referred By | Referred To | | | | | Procedures | Contact | Contact | +--------+--------+ + + + + | | | | | | | +--------+--------+ + + + + Encounter Details +--------+ + + + + | Date | Type | Department | Care Team | Description | +--------+ + + + + | 05/07/ | Hospital | [facility] | Vicky Méndez | Diabetic | | 2017 - | Encounter | [facility] ICU [address] | MD [address] | ketoacidosis without | | | | [place], | [address] [facility], | coma associated | | 05/09/ | | [place] [address] | [place] [address] | with type 1 diabetes | | 2017 | | [phone] | [phone] | mellitus (HCC) | | | | | | (Primary Dx); | | | | | Dougie Yin MD | Nausea; IDDM | | | | | [address] | (insulin dependent | | | | | [place], [place] | diabetes mellitus) | | | | | [id number] | (HCC) | | | | | | | [...] + + + | Blood Pressure | 114/62 | 05/09/2017 7:23 AM | | | | | PST | | + + + + + | Pulse | 70 | 05/09/2017 7:23 AM | | | | | PST | | + + + + + | Temperature | 35.8 C (96.4 F) | 05/09/2017 7:23 AM | | | | | PST | | + + + + + | Respiratory Rate | 13 | 05/09/2017 7:23 AM | | | | | PST | | + + + + + | Oxygen Saturation | 97% | 05/09/2017 7:23 AM | | | | | PST | | + + + + + | Inhaled Oxygen | - | - | | | Concentration | | | | + + + + + | Weight | 59.7 kg (131 lb 9.8 | 05/08/2017 4:00 AM | | | | oz) | PST | | + + + + + | Height | 177.8 cm (5' 10") | 05/07/2017 12:10 PM | | | | | PST | | + + + + + | Body Mass Index | 18.88 | 05/07/2017 12:10 PM | | | | | PST | | + + + + + documented in this encounter Functional Status + + + + | Functional Status | Response | Date of Assessment | + + + + | Are you deaf or do you have serious | No | 05/09/2017 | | difficulty hearing? | | | + + + + | Are you blind or do you have serious | No | 05/09/2017 | | difficulty seeing, even when wearing | | | | glasses? | | | + + + + | Do you have serious difficulty walking or | No | 05/09/2017 | | climbing stairs? (5 years old or older) | | | + + + + | Do you have difficulty dressing or bathing? | No | 05/09/2017 | | (5 years old or older) | | | + + + + | Because of a physical, mental, or emotional | Yes | 05/09/2017 | | condition, do you have difficulty [...] of a physical, mental, or emotional | Yes | 05/09/2017 | | condition, do you have serious difficulty | | | | concentrating, remembering, or making | | | | decisions? (5 years old or older) | | | + + + + documented as of this encounter Discharge Summaries Dougie Yin MD - 05/09/2017 8:42 AM PSTFormatting of this note might be different fr om the original. [place], [place] HOSPITALIST DISCHARGE SUMMARY Pt. Name/Age/: Joni Kwon 36 y.o. 1980 Date of Admission: 05/07/2017 Date of Discharge: 05/09/2017 Admitting Physician: Dougie Yin MD Primary Care Provider: DENIS Paul Discharging Physician: Dougie Yin MD DISCHARGE DIAGNOSES: There are no hospital problems to display for this patient. DISCHARGE MEDICATIONS: Discharge Medications New Medications Details glucose blood test strips strip Please use to check your glucose levels in the morning and before meals three times a day. Unchanged Medications Details albuterol 90 mcg/puff inhaler Inhale 2 puffs into the lungs EVERY 4 TO 6 HOURS NEEDED for Wheezing. Ambulatory Compound Builder Needle tips that fit Humalog Kwikpen and Lantus Solostar Uses 5 needles a day Ambulatory Compound Builder Stips for Contour Next glucometer disp 100 test 4 times a day insulin glargine 100 units/mL injection (pen) Inject 25 Units under the skin every morning. aka: LANTUS SOLOSTAR insulin lispro 100 units/mL injection (pen) Inject 5 Units under the skin 3 times daily (with meals). aka: [facility] insulin lispro 100 units/mL injection (pen) MODERATE [...] DAY for meals and NIGHT for bedtime aka: [facility] COURSE: Please refer to the H&P for full details and the most recent rounding rounding (progress) n ote. Diabetic Ketoacidosis likely 2/2 to poor compliance (patient reports not checking glucose l reji) Patient presented with nausea and vomiting. Patient initially left the Ed, but upon return had a AG 28, Glucose 732, PH 7.26. Patient does not check his glucose levels regularly. Radha ent has a history of DKA. Patient was started on an insulin gtt and IVFs. His gap closed x 2 and tolerated Po. The patient was transitioned to lantus 25 units daily and lispro 5 units with meals. Patient was discharged home with recommendation to follow with his PCP in 1 week . Schizophrenia hx Patient reports not taking any medications. Previously took medications in the past. Denies hallucinations, delusions, suicidal ideations. Patient recommended to follow with PCP. Most recent weight: Input and output for last 24hrs: Wt Readings from Last 1 Encounters: 05/08/17 59.7 kg (131 lb 9.8 oz) I/O last 24 Hours: In: 4527.4 [P.O.:3550; I.V.:977.4] Out: 3950 [Urine:3950] Vitals Ranges: Temp: [35.8 C (96.4 F)-36.6 C (97.8 F)] 35.8 C (96.4 F) Pulse: [66-77] 70 Resp: [13-21] 13 BP: (96-125)/(54-74) 114/62 Vitals: Temp: 35.8 C (96.4 F) BP: 114/62 Pulse: 70 Resp: 13 SpO2: 97 % SpO2 97 % on room air at flow rate L/min PHYSICAL EXAM: Patient seen and examined by me on discharge day PROCEDURES AND CONSULTS: Procedures None Consults None PENDING RESULTS: DISPOSITION AND DISCHARGE INSTRUCTIONS: Follow-up Information DENIS Paul On 05/21/2017. Specialty: Family Nurse Practitioner Why: at 11:00, please arrive 15 minutes before your appointment Contact information: [address] [place] [address] DENIS Paul In 1 week. Specialty: Family Nurse Practitioner Contact information: [address] [place] [id number] Condition: Patient being discharged with condition improved Diet: Carb control diet Less than 30 minutes were spent on discharge and coordination of post-hospital care. Electronically signed by: Dougie Yin MD, 05/09/2017 8:42 [facility] Portions of this chart may have been created with [employer] voice recognition software. Occasi onal wrong-word or sound-alike substitutions may have occurred due to the inherent renee itations of voice recognition software. Please read the chart carefully and recognize, using context, where these substitutions have occurred documented in this encounter Discharge Instructions Instructions Dougie Yin MD - 05/09/2017MrPaula Kwon, You presented with nausea and vomiting. Your glucose (sugar) levels were elevated. On testi ng, it was found that you were in diabetic ketoacidosis. This occurs when your sugar levels are uncontrolled. You were started on an insulin drip and fluids. Gradually, your levels imp roved and were able to get placed back on subcutaneous insulin. Please follow with a primary care doctor for further adjustment of your insulin and check your insulin in the morning an d before each meal. If uncontrolled, please call your doctor to prevent further similar even ts. AttachmentsThe following attachments cannot be sent through Care Everywhere.Diabetic Ketoac idosis (Portuguese)documented in this encounter Medications at Time of [...] | 17 | 9 | | | Lincoln Cantrell | | | | | | | [...] + + + +---------+ + + | glucose blood | Please use to check | 100 | 3 | 05/09/20 | | | test strips strip | your glucose levels | each | | 17 | 9 | | | in the morning and | | | | | | | before meals three | | | | | | | times a day. | | | | | + + [...] documented as of this encounter Progress Notes Dougie Yin MD - 05/09/2017 7:57 AM PSTFormatting of this note might be different fr om the original. [place] HOSPITALIST PROGRESS NOTE Patient: Joni Kwon : 1980: Age: 36 y.o. MedRec: [id number] Admission date: 05/07/2017 Hospital day # : 2 Physician author: Dougie Yin MD Today: 05/09/2017 Allergies: Allergies Allergen Reactions Haloperidol Swelling Insulin Detemir Swelling Risperidone Other (See Comments) "sleeps too long" Current Medications: Current Facility-Administered Medications Medication Dose Route Frequency Provider Last Rate Last Dose acetaminophen (TYLENOL) tablet 650 mg 650 mg Oral Q4H PRN Dougie Yin MD 650 mg at 05/08/17 1923 dextrose 5% and sodium chloride 0.45% (D5 1/2 NS) infusion Intravenous PRN Dougie khan MD Stopped at 05/08/17 1028 dextrose 50% injection 12.5 g 12.5 g Intravenous PRN Dougie Yin MD heparin 5,000 units/mL injection 5,000 Units 5,000 Units Subcutaneous 3 times per day Dougie Yin MD insulin glargine (LANTUS SOLOSTAR) 100 units/mL injection (pen) 25 Units 25 Units Subc utaneous QAM Dougie Yin MD 25 Units at 05/08/17 0933 insulin lispro (humaLOG KWIKPEN) 100 units/mL injection (pen) 0-6 Units 0-6 Units Subc utaneous 4x Daily and Dougie Yin MD 2 Units at 05/08/17 2141 insulin lispro (humaLOG KWIKPEN) 100 units/mL injection (pen) 5 Units 5 Units Subcutan eous TID Dougie Yin MD 5 Units at 05/08/17 1759 Current Infusions: Objective Data Point of care glucose Recent Labs Lab 05/09/17 0625 05/08/17 2120 05/08/17 1640 05/08/17 1139 05/08/17 1028 05/08/17 0911 POCGLU 188* 239* 115* 137* 236* 282* Labs last 24 hours Recent Results (from the past 24 hour(s)) Basic Metabolic Panel Collection Time: 05/08/17 8:22 Result Value Ref Range NA 136 136 - 149 mmol/L K 3.7 3.5 - 5.1 mmol/L CL 109 98 - 109 mmol/L CO2 23 (L) 24 - 31 mmol/L ANION GAP 4 3 - 16 mmol/L GLUCOSE 136 (H) 70 - 109 mg/dL BUN 18 7 - 18 mg/dL Creatinine, Serum/Plasma 0.88 0.60 - 1.30 mg/dL eGFR if not >60 >=60 mL/min/1.73m2 CALCIUM 7.9 (L) 8.3 - 10.5 mg/dL BUN/CREA 20.5 Extra Lavender Top Tube Collection Time: 05/08/17 8:22 Result Value Ref Range Extra Lavender Top Tube Done POC Glucose Collection Time: 05/08/17 8:23 Result Value Ref Range Glucose, POC 125 (H) 70 - 109 mg/dL POC Glucose Collection Time: 05/08/17 9:11 Result Value Ref Range Glucose, POC 282 (H) 70 - 109 mg/dL POC Glucose Collection Time: 05/08/17 10:28 Result Value Ref Range Glucose, POC 236 (H) 70 - 109 mg/dL POC Glucose Collection Time: 05/08/17 11:39 Result Value Ref Range Glucose, POC 137 (H) 70 - 109 mg/dL Basic Metabolic Panel Collection Time: 05/08/17 12:06 Result Value Ref Range NA 132 (L) 136 - 149 mmol/L K 4.2 3.5 - 5.1 mmol/L CL 104 98 - 109 mmol/L CO2 24 24 - 31 mmol/L ANION GAP 4 3 - 16 mmol/L GLUCOSE 215 (H) 70 - 109 mg/dL BUN 14 7 - 18 mg/dL Creatinine, Serum/Plasma 0.93 0.60 - 1.30 mg/dL eGFR if not >60 >=60 mL/min/1.73m2 CALCIUM 8.0 (L) 8.3 - 10.5 mg/dL BUN/CREA 15.1 Basic Metabolic Panel Collection Time: 05/08/17 15:46 Result Value Ref Range NA 131 (L) 136 - 149 mmol/L K 3.9 3.5 - 5.1 mmol/L CL 103 98 - 109 mmol/L CO2 24 24 - 31 mmol/L ANION GAP 4 3 - 16 mmol/L GLUCOSE 135 (H) 70 - 109 mg/dL BUN 16 7 - 18 mg/dL Creatinine, Serum/Plasma 0.82 0.60 - 1.30 mg/dL eGFR if not >60 >=60 mL/min/1.73m2 CALCIUM 7.8 (L) 8.3 - 10.5 mg/dL BUN/CREA 19.5 POC Glucose Collection Time: 05/08/17 16:40 Result Value Ref Range Glucose, POC 115 (H) 70 - 109 mg/dL Extra Green Top Tube Collection Time: 05/08/17 19:40 Result Value Ref Range Extra Green Top Tube Done POC Glucose Collection Time: 05/08/17 21:20 Result Value Ref Range Glucose, POC 239 (H) 70 - 109 mg/dL Basic Metabolic Panel Collection Time: 05/09/17 4:05 Result Value Ref Range NA 139 136 - 149 mmol/L K 3.9 3.5 - 5.1 mmol/L CL 110 (H) 98 - 109 mmol/L CO2 24 24 - 31 mmol/L ANION GAP 5 3 - 16 mmol/L GLUCOSE 118 (H) 70 - 109 mg/dL BUN 13 7 - 18 mg/dL Creatinine, Serum/Plasma 0.76 0.60 - 1.30 mg/dL eGFR if not >60 >=60 mL/min/1.73m2 CALCIUM 8.4 8.3 - 10.5 mg/dL BUN/CREA 17.1 CBC with Differential Collection Time: 05/09/17 4:05 Result Value Ref Range WBC 4.8 4.0 - 11.0 K/uL RBC 3.83 (L) 4.30 - 5.70 M/uL Hgb 12.8 (L) 13.5 - 18.0 g/dL Hct 35.3 (L) 40.0 - 51.0 % MCV 92.3 83.0 - 101.0 fL MCH 33.4 28.0 - 35.0 pg MCHC 36.2 (H) 32.0 - 36.0 g/dL RDW-CV 13.3 <15.0 % Platelet Count 209 140 - 440 K/uL MPV 8.2 fL % Neutrophils 47.5 45.0 - 82.0 % % Lymphocytes 42.5 20.0 - 45.0 % % Monocytes 7.1 4.0 - 12.0 % % Eosinophils 2.3 0.0 - 5.0 % % Basophils 0.6 0.0 - 1.0 % Absolute Neutrophils 2.30 1.80 - 8.50 K/uL Absolute Lymphocytes 2.00 0.60 - 3.20 K/uL Absolute Monocytes 0.30 0.00 - 1.00 K/uL Absolute Eosinophils 0.10 0.00 - 0.40 K/uL Absolute Basophils 0.00 0.00 - 0.10 K/uL Magnesium Collection Time: 05/09/17 4:05 Result Value Ref Range MG 1.9 1.8 - 2.5 mg/dL POC Glucose Collection Time: 05/09/17 6:25 Result Value Ref Range Glucose, POC 188 (H) 70 - 109 mg/dL Micro results Microbiology Results (72 hrs) Procedure Component Value Units Date/Time Culture, MRSA [[id number]] Collected: 05/07/17 8721 Order Status: Completed Lab Status: Final result Updated: 05/08/17 1339 Specimen: Respiratory from Nares Culture Negative for MRSA by chromogenic agar method 1+ Staphylococcus coagulase positive Radiology results No results found. Vitals Ranges: Temp: [35.8 C (96.4 F)-36.6 C (97.8 F)] 35.8 C (96.4 F) Pulse: [66-77] 70 Resp: [13-21] 13 BP: (96-125)/(54-74) 114/62 Vitals: Temp: 35.8 C (96.4 F) BP: 114/62 Pulse: 70 Resp: 13 SpO2: 97 % SpO2 97 % on room air at flow rate L/min Subjective Patient tolerating full diet. Feels better overall. Exam Gen Scott - alert, cooperative, disheveled Head - Normocephalic Eyes - PERRL ENT - mucous membranes moist Neck - supple Lungs - CTA throughout Heart - normal rate, rhythm w/o m/r/g Abdomen - Nt, ND Extremities - no peripheral edema Skin - dry skin Neurologic - Alert and oriented x 3 Assessment and Hospital Course DKA Plan Diabetic Ketoacidosis likely 2/2 to poor compliance (patient reports not checking glucose humza kingcos[place]) Patient transitioned to SC insulin yesterday. -lantus 25 units once daily, lispro 5 units today Schizophrenia hx Continues to deny hallucinations, delusions, suicidal ideations. -Will monitor FEN: Carb control PPX: HSQ Dougie Yin MD 05/09/2017 7:57 [facility] Dougie Crawford MD - 05/08/2017 7:43 AM PST [facility] PROGRESS NOTE Patient: Joni Kwon : 1980: Age: 36 y.o. MedRec: [id number] Admission date: 05/07/2017 Hospital day # : 1 Physician author: Dougie Yin MD Today: 05/08/2017 Allergies: Allergies Allergen Reactions Haloperidol Swelling Insulin Detemir Swelling Risperidone Other (See Comments) "sleeps too long" Current Medications: Current Facility-Administered Medications Medication Dose Route Frequency Provider Last Rate Last Dose dextrose 5% and sodium chloride 0.45% (D5 1/2 NS) infusion Intravenous PRN Dougie khan MD 200 mL/hr at 05/08/17 0305 1,000 mL at 05/08/17 0305 dextrose 50% injection 12.5 g 12.5 g Intravenous PRN Dougie Yin MD heparin 5,000 units/mL injection 5,000 Units 5,000 Units Subcutaneous 3 times per day Dougie Yin MD insulin lispro (humaLOG KWIKPEN) 100 units/mL injection (pen) 1-16 Units 1-16 Units Mix bcutaneous TID WC Joni Davis MD insulin regular (humuLIN R, novoLIN R) 1 Units/mL in sodium chloride 0.9% 100 mL infusi on (Adult Protocol) 0-101.2 Units/hr Intravenous Titrated Joni Davis MD 1.3 mL/hr at 05/08/17 0711 1.3 Units/hr at 05/08/17 0711 Current Infusions: insulin regular 1.3 Units/hr (05/08/17 0711) Objective Data Point of care glucose Recent Labs Lab 05/08/17 0710 05/08/17 0616 05/08/17 0511 05/08/17 0417 05/08/17 0316 05/08/17 0210 POCGLU 112* 171* 179* 201* 237* 234* Labs last 24 hours Recent Results (from the past 24 hour(s)) POC Glucose Collection Time: 05/07/17 12:17 Result Value Ref Range Glucose, POC >600 (HH) 70 - 109 mg/dL POC Blood Gases Collection Time: 05/07/17 13:39 Result Value Ref Range Specimen Source Vein pH, POC 7.267 (L) 7.3 - 7.45 HCO3, POC 10.4 (L) 21.0 - 28.0 mmol/L TCO2, POC 11.1 (L) 22.0 - 29.0 mmol/L Base Excess, POC -14.4 (L) -2.0 - 3.0 mmol/L Base Excess, Extracellular fluid, POC -16.6 (L) -2.0 - 3.0 mmol/L O2 Sat, POC 79 (L) 90 - 100 % PCO2, POC 22.8 (L) 35.0 - 50.0 mmHg PO2, POC 48.1 25.0 - 50.0 mmHg CBC with Differential Collection Time: 05/07/17 13:42 Result Value Ref Range WBC 5.2 4.0 - 11.0 K/uL RBC 4.65 4.30 - 5.70 M/uL Hgb 15.1 13.5 - 18.0 g/dL Hct 45.0 40.0 - 51.0 % MCV 96.7 83.0 - 101.0 fL MCH 32.4 28.0 - 35.0 pg MCHC 33.6 32.0 - 36.0 g/dL RDW-CV 13.5 <15.0 % Platelet Count 267 140 - 440 K/uL MPV 8.6 fL % Neutrophils 82.0 45.0 - 82.0 % % Lymphocytes 13.4 (L) 20.0 - 45.0 % % Monocytes 3.4 (L) 4.0 - 12.0 % % Eosinophils 0.3 0.0 - 5.0 % % Basophils 0.9 0.0 - 1.0 % Absolute Neutrophils 4.20 1.80 - 8.50 K/uL Absolute Lymphocytes 0.70 0.60 - 3.20 K/uL Absolute Monocytes 0.20 0.00 - 1.00 K/uL Absolute Eosinophils 0.00 0.00 - 0.40 K/uL Absolute Basophils 0.00 0.00 - 0.10 K/uL Basic Metabolic Panel Collection Time: 05/07/17 13:42 Result Value Ref Range NA 128 (L) 136 - 149 mmol/L K 5.2 (H) 3.5 - 5.1 mmol/L CL 90 (L) 98 - 109 mmol/L CO2 10 (LL) 24 - 31 mmol/L ANION GAP 28 (H) 3 - 16 mmol/L GLUCOSE 732 (HH) 70 - 109 mg/dL BUN 32 (H) 7 - 18 mg/dL Creatinine, Serum/Plasma 1.69 (H) 0.60 - 1.30 mg/dL eGFR if not 46 (L) >=60 mL/min/1.73m2 CALCIUM 9.4 8.3 - 10.5 mg/dL BUN/CREA 18.9 Extra Gold Top Tube Collection Time: 05/07/17 13:42 Result Value Ref Range EGDT Done Extra Blue Top Tube Collection Time: 05/07/17 13:42 Result Value Ref Range Extra Blue Top Tube Done Extra Green Top Tube Collection Time: 05/07/17 13:42 Result Value Ref Range Extra Green Top Tube Done POC Glucose Collection Time: 05/07/17 16:32 Result Value Ref Range Glucose, POC 558 (H) 70 - 109 mg/dL ECG 12 lead Collection Time: 05/07/17 17:23 Result Value Ref Range VENTRICULAR RATE EKG 87 BPM ATRIAL RATE 87 BPM P-R INTERVAL 142 ms QRS DURATION 78 ms Q-T INTERVAL 346 ms Q-T INTERVAL (CORRECTED) 416 ms P WAVE AXIS 62 degrees QRS AXIS 84 degrees T AXIS 66 degrees INTERPRETATION TEXT Normal sinus rhythm probable early repolarization pattern though ischemia/infarction/pericarditis cannot be exc luded When compared with ECG of of 04/19/17 at 09:39:27 Sinus rhythm has replaced Ectopic atrial rhythm there is no significant change Confirmed by CARYN THORPE, [place] ([id number]) on 05/08/2017 7:10:41 AM Basic Metabolic Panel Collection Time: 05/07/17 17:44 Result Value Ref Range NA 135 (L) 136 - 149 mmol/L K 4.3 3.5 - 5.1 mmol/L CL 103 98 - 109 mmol/L CO2 10 (LL) 24 - 31 mmol/L ANION GAP 22 (H) 3 - 16 mmol/L GLUCOSE 463 (H) 70 - 109 mg/dL BUN 33 (H) 7 - 18 mg/dL Creatinine, Serum/Plasma 1.82 (H) 0.60 - 1.30 mg/dL eGFR if not 42 (L) >=60 mL/min/1.73m2 CALCIUM 8.7 8.3 - 10.5 mg/dL BUN/CREA 18.1 POC Glucose Collection Time: 05/07/17 17:49 Result Value Ref Range Glucose, POC 443 (H) 70 - 109 mg/dL POC Glucose Collection Time: 05/07/17 18:42 Result Value Ref Range Glucose, POC 350 (H) 70 - 109 mg/dL POC Glucose Collection Time: 05/07/17 19:40 Result Value Ref Range Glucose, POC 281 (H) 70 - 109 mg/dL Basic Metabolic Panel Collection Time: 05/07/17 20:06 Result Value Ref Range NA 139 136 - 149 mmol/L K 4.3 3.5 - 5.1 mmol/L CL 108 98 - 109 mmol/L CO2 16 (L) 24 - 31 mmol/L ANION GAP 15 3 - 16 mmol/L GLUCOSE 262 (H) 70 - 109 mg/dL BUN 30 (H) 7 - 18 mg/dL Creatinine, Serum/Plasma 1.59 (H) 0.60 - 1.30 mg/dL eGFR if not 50 (L) >=60 mL/min/1.73m2 CALCIUM 8.6 8.3 - 10.5 mg/dL BUN/CREA 18.9 POC Glucose Collection Time: 05/07/17 20:53 Result Value Ref Range Glucose, POC 215 (H) 70 - 109 mg/dL POC Glucose Collection Time: 05/07/17 21:57 Result Value Ref Range Glucose, POC 121 (H) 70 - 109 mg/dL POC Glucose Collection Time: 05/07/17 22:58 Result Value Ref Range Glucose, POC 122 (H) 70 - 109 mg/dL Basic Metabolic Panel Collection Time: 05/08/17 0:02 Result Value Ref Range NA 140 136 - 149 mmol/L K 4.5 3.5 - 5.1 mmol/L CL 110 (H) 98 - 109 mmol/L CO2 21 (L) 24 - 31 mmol/L ANION GAP 9 3 - 16 mmol/L GLUCOSE 188 (H) 70 - 109 mg/dL BUN 25 (H) 7 - 18 mg/dL Creatinine, Serum/Plasma 1.18 0.60 - 1.30 mg/dL eGFR if not >60 >=60 mL/min/1.73m2 CALCIUM 8.2 (L) 8.3 - 10.5 mg/dL BUN/CREA 21.2 POC Glucose Collection Time: 05/08/17 0:06 Result Value Ref Range Glucose, POC 193 (H) 70 - 109 mg/dL POC Glucose Collection Time: 05/08/17 0:59 Result Value Ref Range Glucose, POC 221 (H) 70 - 109 mg/dL POC Glucose Collection Time: 05/08/17 2:10 Result Value Ref Range Glucose, POC 234 (H) 70 - 109 mg/dL POC Glucose Collection Time: 05/08/17 3:16 Result Value Ref Range Glucose, POC 237 (H) 70 - 109 mg/dL POC Glucose Collection Time: 05/08/17 4:17 Result Value Ref Range Glucose, POC 201 (H) 70 - 109 mg/dL Basic Metabolic Panel Collection Time: 05/08/17 4:26 Result Value Ref Range NA 139 136 - 149 mmol/L K 3.8 3.5 - 5.1 mmol/L CL 112 (H) 98 - 109 mmol/L CO2 24 24 - 31 mmol/L ANION GAP 3 3 - 16 mmol/L GLUCOSE 214 (H) 70 - 109 mg/dL BUN 20 (H) 7 - 18 mg/dL Creatinine, Serum/Plasma 0.97 0.60 - 1.30 mg/dL eGFR if not >60 >=60 mL/min/1.73m2 CALCIUM 8.3 8.3 - 10.5 mg/dL BUN/CREA 20.6 CBC with Differential Collection Time: 05/08/17 4:26 Result Value Ref Range WBC 6.7 4.0 - 11.0 K/uL RBC 3.92 (L) 4.30 - 5.70 M/uL Hgb 12.8 (L) 13.5 - 18.0 g/dL Hct 35.9 (L) 40.0 - 51.0 % MCV 91.6 83.0 - 101.0 fL MCH 32.7 28.0 - 35.0 pg MCHC 35.7 32.0 - 36.0 g/dL RDW-CV 13.4 <15.0 % Platelet Count 255 140 - 440 K/uL MPV 7.5 fL % Neutrophils 62.6 45.0 - 82.0 % % Lymphocytes 27.0 20.0 - 45.0 % % Monocytes 8.7 4.0 - 12.0 % % Eosinophils 1.0 0.0 - 5.0 % % Basophils 0.7 0.0 - 1.0 % Absolute Neutrophils 4.20 1.80 - 8.50 K/uL Absolute Lymphocytes 1.80 0.60 - 3.20 K/uL Absolute Monocytes 0.60 0.00 - 1.00 K/uL Absolute Eosinophils 0.10 0.00 - 0.40 K/uL Absolute Basophils 0.00 0.00 - 0.10 K/uL Magnesium Collection Time: 05/08/17 4:26 Result Value Ref Range MG 2.1 1.8 - 2.5 mg/dL POC Glucose Collection Time: 05/08/17 5:11 Result Value Ref Range Glucose, POC 179 (H) 70 - 109 mg/dL POC Glucose Collection Time: 05/08/17 6:16 Result Value Ref Range Glucose, POC 171 (H) 70 - 109 mg/dL POC Glucose Collection Time: 05/08/17 7:10 Result Value Ref Range Glucose, POC 112 (H) 70 - 109 mg/dL Micro results Microbiology Results (72 hrs) Procedure Component Value Units Date/Time Culture, MRSA [[id number]] Collected: 05/07/171730 Order Status: Sent Lab Status: In process Updated: 05/07/171735 Specimen: Respiratory from Nares Radiology results No results found. Vitals Ranges: Temp: [35.9 C (96.7 F)-37.5 C (99.5 F)] 36.2 C (97.1 F) Pulse: [70-88] 72 Resp: [12-20] 14 BP: (88-122)/(49-75) 90/63 Vitals: Temp: 36.2 C (97.1 F) BP: 90/63 Pulse: 72 Resp: 14 SpO2: 98 % SpO2 98 % on room air at flow rate L/min Subjective Patient reports the nausea symptom has improved. Patient feels ready to attempt to eat. Exam Gen Scott - alert, cooperative, disheveled Head - Normocephalic Eyes - PERRL ENT - mucous membranes moist Neck - supple Lungs - CTA throughout Heart - normal rate, rhythm w/o m/r/g Abdomen - soft, NT Extremities - no peripheral edema, no clubbing or cyanosis Skin - dry skin, Scaling skin on both extremities Neurologic - Alert and oriented x 3 Assessment and Hospital Course DKA Plan Diabetic Ketoacidosis likely 2/2 to poor compliance (patient reports not checking glucose l evels) -AG closed x 2, changed diet to clears, if tolerate will convert insulin gtt to SC -Insulin gtt 0.1 unit/kg -Cont D5 1/2 NS Schizophrenia hx Patient reports not taking any medications. Previously in the past. Denies hallucinations, delusions, suicidal ideations. -Will monitor FEN: Clears PPX: HSQ Dougie Yin MD 05/08/2017 7:43 [facility] Romelia Henry, Zac rmD - 05/07/2017 4:17 PM PST PHARMACY SERVICES: ADMISSION MEDICATION REVIEW Joni Kwon is a 36 y.o. male admitted on 05/07/17. Patient is a reliable historian. Location of Patient when reviewed: X ED Medical Floor Patient s prior to admit medication and over the counter (OTC) medications/herbal supplem ents list obtained from: X Verbal interview X Patient ABLE to recall name, strength, and directions X Pharmacy list names: [facility] [facility] [place] [employer] (Prescription Monitoring Program) X [employer] insurance reported information X Care Everywhere X Outside Information Vaccines up to date? Yes No Unsure Influenza X Pneumococcal X Tdap X Shingles X Noted medications discrepancies or medication-related issues: Dosage change: Medication: Prior to Admission Sig: Correct sig: Insulin glargine 100 units/ ml 25 units under the skin nightly 25 units under the skin ever y morning Recreational Substances , Tobacco & Alcohol use : Drug: Route Frequency: Last Used: cigarettes smoke 1 pack daily 05/07/17 Medication review performed and electronically signed by Morenita García, Senior Patrol Agent 05/07 16:12 Reviewed by Romelia Valdez, [employer]osta 05/07/2017 16:16 documented in thi s encounter Plan of Treatment Not on filedocumented as of this encounter Procedures + +--------+ + + + | Procedure Name | Priori | Date/Time | Associated Diagnosis | Comments | | | ty | | | | + +--------+ + + + | POC GLUCOSE | Routin | 05/09/2017 | | Results for this | | | e | 6:25 AM | | procedure are in the | | | | PST | | results section. | + +--------+ + + + | CBC WITH | Routin | 05/09/2017 | | Results for this | | DIFFERENTIAL | e | 4:05 AM | | procedure are in the | | | | PST | | results section. | + +--------+ + + + | MAGNESIUM | Routin | 05/09/2017 | | Results for this | | | e | 4:05 AM | | procedure are in the | | | | PST | | results section. | + +--------+ + + + | BASIC METABOLIC | Routin | 05/09/2017 | | Results for this | | PANEL | e | 4:05 AM | | procedure are in the | | | | PST | | results section. | + +--------+ + + + | POC GLUCOSE | Routin | 05/08/2017 | | Results for this | | | e | 9:20 PM | | procedure are in the | | | | PST | | results section. | + +--------+ + + + | EXTRA GREEN TOP TUBE | Routin | 05/08/2017 | | Results for this | | | e | 7:40 PM | | procedure are in the | | | | PST | | results section. | + +--------+ + + + | POC GLUCOSE | Routin | 05/08/2017 | | Results for this | | | e | 4:40 PM | | procedure are in the | | | | PST | | results section. | + +--------+ + + + | BASIC METABOLIC | Routin | 05/08/2017 | | Results for this | | PANEL | e | 3:46 PM | | procedure are in the | | | | PST | | results section. | + +--------+ + + + | BASIC METABOLIC | Routin | 05/08/2017 | | Results for this | | PANEL | e | 12:06 PM | | procedure are in the | | | | PST | | results section. | + +--------+ + + + | POC GLUCOSE | Routin | 05/08/2017 | | Results for this | | | e | 11:39 AM | | procedure are in the | | | | PST | | results section. | + +--------+ + + + | POC GLUCOSE | Routin | 05/08/2017 | | Results for this | | | e | 10:28 AM | | procedure are in the | | | | PST | | results section. | + +--------+ + + + | POC GLUCOSE | Routin | 05/08/2017 | | Results for this | | | e | 9:11 AM | | procedure are in the | | | | PST | | results section. | + +--------+ + + + | POC GLUCOSE | Routin | 05/08/2017 | | Results for this | | | e | 8:23 AM | | procedure are in the | | | | PST | | results section. | + +--------+ + + + | EXTRA LAVENDER TOP | Routin | 05/08/2017 | | Results for this | | TUBE | e | 8:22 AM | | procedure are in the | | | | PST | | results section. | + +--------+ + + + | BASIC METABOLIC | Routin | 05/08/2017 | | Results for this | | PANEL | e | 8:22 AM | | procedure are in the | | | | PST | | results section. | + +--------+ + + + | POC GLUCOSE | Routin | 05/08/2017 | | Results for this | | | e | 7:10 AM | | procedure are in the | | | | PST | | results section. | + +--------+ + + + | POC GLUCOSE | Routin | 05/08/2017 | | Results for this | | | e | 6:16 AM | | procedure are in the | | | | PST | | results section. | + +--------+ + + + | POC GLUCOSE | Routin | 05/08/2017 | | Results for this | | | e | 5:11 AM | | procedure are in the | | | | PST | | results section. | + +--------+ + + + | CBC WITH | Routin | 05/08/2017 | | Results for this | | DIFFERENTIAL | e | 4:26 AM | | procedure are in the | | | | PST | | results section. | + +--------+ + + + | MAGNESIUM | Routin | 05/08/2017 | | Results for this | | | e | 4:26 AM | | procedure are in the | | | | PST | | results section. | + +--------+ + + + | BASIC METABOLIC | Routin | 05/08/2017 | | Results for this | | PANEL | e | 4:26 AM | | procedure are in the | | | | PST | | results section. | + +--------+ + + + | POC GLUCOSE | Routin | 05/08/2017 | | Results for this | | | e | 4:17 AM | | procedure are in the | | | | PST | | results section. | + +--------+ + + + | POC GLUCOSE | Routin | 05/08/2017 | | Results for this | | | e | 3:16 AM | | procedure are in the | | | | PST | | results section. | + +--------+ + + + | POC GLUCOSE | Routin | 05/08/2017 | | Results for this | | | e | 2:10 AM | | procedure are in the | | | | PST | | results section. | + +--------+ + + + | POC GLUCOSE | Routin | 05/08/2017 | | Results for this | | | e | 12:59 AM | | procedure are in the | | | | PST | | results section. | + +--------+ + + + | POC GLUCOSE | Routin | 05/08/2017 | | Results for this | | | e | 12:06 AM | | procedure are in the | | | | PST | | results section. | + +--------+ + + + | BASIC METABOLIC | Routin | 05/08/2017 | | Results for this | | PANEL | e | 12:02 AM | | procedure are in the | | | | PST | | results section. | + +--------+ + + + | POC GLUCOSE | Routin | 05/07/2017 | | Results for this | | | e | 10:58 PM | | procedure are in the | | | | PST | | results section. | + +--------+ + + + | POC GLUCOSE | Routin | 05/07/2017 | | Results for this | | | e | 9:57 PM | | procedure are in the | | | | PST | | results section. | + +--------+ + + + | POC GLUCOSE | Routin | 05/07/2017 | | Results for this | | | e | 8:53 PM | | procedure are in the | | | | PST | | results section. | + +--------+ + + + | BASIC METABOLIC | Routin | 05/07/2017 | | Results for this | | PANEL | e | 8:06 PM | | procedure are in the | | | | PST | | results section. | + +--------+ + + + | POC GLUCOSE | Routin | 05/07/2017 | | Results for this | | | e | 7:40 PM | | procedure are in the | | | | PST | | results section. | + +--------+ + + + | POC GLUCOSE | Routin | 05/07/2017 | | Results for this | | | e | 6:42 PM | | procedure are in the | | | | PST | | results section. | + +--------+ + + + | POC GLUCOSE | Routin | 05/07/2017 | | Results for this | | | e | 5:49 PM | | procedure are in the | | | | PST | | results section. | + +--------+ + + + | BASIC METABOLIC | Routin | 05/07/2017 | | Results for this | | PANEL | e | 5:44 PM | | procedure are in the | | | | PST | | results section. | + +--------+ + + + | CULTURE, MRSA | Routin | 05/07/2017 | | Results for this | | | e | 5:31 PM | | procedure are in the | | | | PST | | results section. | + +--------+ + + + | ECG 12 LEAD | Routin | 05/07/2017 | | Results for this | | | e | 5:23 PM | | procedure are in the | | | | PST | | results section. | + +--------+ + + + | POC GLUCOSE | Routin | 05/07/2017 | | Results for this | | | e | 4:32 PM | | procedure are in the | | | | PST | | results section. | + +--------+ + + + | EXTRA GREEN TOP TUBE | STAT | 05/07/2017 | | Results for this | | | | 1:42 PM | | procedure are in the | | | | PST | | results section. | + +--------+ + + + | EXTRA GOLD TOP TUBE | STAT | 05/07/2017 | | Results for this | | | | 1:42 PM | | procedure are in the | | | | PST | | results section. | + +--------+ + + + | EXTRA BLUE TOP TUBE | STAT | 05/07/2017 | | Results for this | | | | 1:42 PM | | procedure are in the | | | | PST | | results section. | + +--------+ + + + | CBC WITH | STAT | 05/07/2017 | | Results for this | | DIFFERENTIAL | | 1:42 PM | | procedure are in the | | | | PST | | results section. | + +--------+ + + + | BASIC METABOLIC | STAT | 05/07/2017 | | Results for this | | PANEL | | 1:42 PM | | procedure are in the | | | | PST | | results section. | + +--------+ + + + | POC BLOOD GASES | Routin | 05/07/2017 | | Results for this | | | e | 1:39 PM | | procedure are in the | | | | PST | | results section. | + +--------+ + + + | POC GLUCOSE | Routin | 05/07/2017 | | Results for this | | | e | 12:17 PM | | procedure are in the | | | | PST | | results section. | + +--------+ + + + documented in this encounter Results POC Glucose (05/09/2017 6:25 AM PST) + +---------+ + + + | Component | Value | Ref Range | Performed | Pathologist | | | | | At | Signature | + +---------+ + + + | Glucose, | 188 (H) | 70 - 109 mg/dL | [facility] | | | POC | | | [facility] | | | | | | [facility]ICAL [...] [address] | [place] | [phone] | | [facility] | | [address] | | | - LABORATORY | | | | + + + + + Magnesium (05/09/2017 4:05 AM PST) + +-------+ + + + | Component | Value | Ref Range | Performed | Pathologist | | | | | At | Signature | + +-------+ + + + | Magnesium | 1.9 | 1.8 - 2.5 mg/dL | [facility] [...] [address] | [place] | [phone] | | [facility] | | [address] | | | - LABORATORY | | | | + + + + + CBC with Differential (05/09/2017 4:05 AM PST) + + + + + + | Component | Value | Ref Range | Performed | Pathologist | | | | | At | Signature | + + + + + + | WBC | 4.8 | 4.0 - 11.0 K/uL | [facility] | | | | | | [facility] | | | | | | [facility] | | | | | [facility] - | | | | | | LABORATORY | | + + + + + + | RBC | 3.83 (L) | 4.30 - 5.70 | [facility] | | | | | M/uL | [facility] | | | | | | [facility] | | | | | | C[facility] - | | | | | | LABORATORY | | + + + + + + | Hemoglobin | 12.8 (L) | 13.5 - 18.0 | [facility] | | | | | g/dL | [facility] | | | | | | [facility] | | | | | | CENTER - | | | | | | LABORATORY | | + + + + + + | Hematocrit | 35.3 (L) | 40.0 - 51.0 % | [facility] | | | | | | [facility] | | | | | | [facility] | | | | | | C[facility] - | | | | | | LABORATORY | | + + + + + + | MCV | 92.3 | 83.0 - 101.0 fL | [facility] | | | | | | [facility] | | | | | | [facility] | | | | | | CENTER - | | | | | | LABORATORY | | + + + + + + | MCH | 33.4 | 28.0 - 35.0 pg | [facility] | | | | | | [facility] | | | | | | [facility] | | | | | | C[facility] - | | | | | | LABORATORY | | + + + + + + | MCHC | 36.2 (H) | 32.0 - 36.0 | [facility] | | | | | g/dL | [facility] | | | | | | [facility] | | | | | | CENTER - | | | | | | LABORATORY | | + + + + + + | RDW-CV | 13.3 | <15.0 % | [facility] | | | | | | [facility] | | | | | | [facility] | | | | | | CENTER - | | | | | | LABORATORY | | + + + + + + | Platelet | 209 | 140 - 440 K/uL | [facility] | | | Count | | | [facility] | | | | | | [facility] | | | | | | CENTER - | | | | | | LABORATORY | | + + + + + + | MPV | 8.2 | fL | [facility] | | | | | | [facility] | | | | | | [facility] | | | | | | CENTER - | | | | | | LABORATORY | | + + + + + + | % | 47.5 | 45.0 - 82.0 % | [facility] | | | Neutrophils | | | [facility] | | | | | | [facility]ICAL | | | | | | CENTER - | | | | | | LABORATORY | | + + + + + + | % | 42.5 | 20.0 - 45.0 % | [facility] | | | Lymphocytes | | | [facility] | | | | | | MEDICAL | | | | | | CENTER - | | | | | | LABORATORY | | + + + + + + | % Monocytes | 7.1 | 4.0 - 12.0 % | [facility] | | | | | | [facility] | | | | | | [facility] | | | | | | CENTER - | | | | | | LABORATORY | | + + + + + + | % | 2.3 | 0.0 - 5.0 % | [facility] | | | Eosinophils | | | [facility] | | | | | | MEDICAL | | | | | | CENTER - | | | | | | LABORATORY | | + + + + + + | % Basophils | 0.6 | 0.0 - 1.0 % | [facility] | | | | | | [facility] | | | | | | [facility] | | | | | | CENTER - | | | | | | LABORATORY | | + + + + + + | Absolute | 2.30 | 1.80 - 8.50 | [facility] | | | Neutrophils | | K/uL | [facility] | | | | | | [facility] | | | | | | CENTER - | | | | | | LABORATORY | | + + + + + + | Absolute | 2.00 | 0.60 - 3.20 | [facility] | | | Lymphocytes | | K/uL | [facility] | | | | | | MEDICAL | | | | | | CENTER - | | | | | | LABORATORY | | + + + + + + | Absolute | 0.30 | 0.00 - 1.00 | [facility] | | | Monocytes | | K/uL | [facility] | | | | | | [facility] | | | | | | CENTER - | | | | | | LABORATORY | | + + + + + + | Absolute | 0.10 | 0.00 - 0.40 | [facility] | | | Eosinophils | | K/uL | [facility] | | | | | | [facility]ICAL | | | | | | CENTER - | | | | | | LABORATORY | | + + + + + + | Absolute | 0.00 | 0.00 - 0.10 | [facility] | | | Basophils | | K/uL | [facility] | | | | | | MEDICAL [...] [address] | [place] | [phone] | | [facility] | | [address] | | | - LABORATORY | | | | + + + + + Basic Metabolic Panel (05/09/2017 4:05 AM PST) + + + + + + | Component | Value | Ref Range | Performed | Pathologist | | | | | At | Signature | + + + + + + | Na | 139 | 136 - 149 | [facility] | | | | | mmol/L | [facility] | | | | | | [facility]ICAL | | | | | | CENTER - | | | | | | LABORATORY | | + + + + + + | K | 3.9 | 3.5 - 5.1 | [facility] | | | | | mmol/L | [facility] | | | | | | [facility] | | | | | | CENTER - | | | | | | LABORATORY | | + + + + + + | Cl | 110 (H) | 98 - 109 mmol/L | [facility] | | | | | | [facility] | | | | | | [facility] | | | | | | CENTER - | | | | | | LABORATORY | | + + + + + + | CO2 | 24 | 24 - 31 mmol/L | [facility] | | | | | | [facility] | | | | | | [facility] | | | | | | CENTER - | | | | | | LABORATORY | | + + + + + + | Anion Gap | 5 | 3 - 16 mmol/L | [facility] | | | | | | [facility] | | | | | | [facility] | | | | | | CENTER - | | | | | | LABORATORY | | + + + + + + | Glucose | 118 (H) | 70 - 109 mg/dL | [facility] | | | | | | [facility] | | | | | | [facility] | | | | | | CENTER - | | | | | | LABORATORY | | + + + + + + | BUN | 13 | 7 - 18 mg/dL | [facility] | | | | | | [facility] | | | | | | [facility] | | | | | | CENTER - | | | | | | LABORATORY | | + + + + + + | Creatinine | 0.76 | 0.60 - 1.30 | [facility] | [...] mL/min/1.73m2 | [facility] | | | [place] | RATE,ESTIMATED | | MEDICAL | | | | mL/min/1.91d7Dvbn than | | CENTER - | | [...] + + + + | Calcium | 8.4 | 8.3 - 10.5 | [facility] | | | | | mg/dL | [facility] | | | | | | MEDICAL | | | | | | CENTER - | | | | | | LABORATORY | | + + + + + + | BUN/Creatin | 17.1 | | [facility] | | | ine Ratio | | | [facility] | [...] [address] | [place] | [phone] | | [facility] | | [address] | | | - LABORATORY | | | | + + + + + POC Glucose (05/08/2017 9:20 PM PST) + +---------+ + + + | Component | Value | Ref Range | Performed | Pathologist | | | | | At | Signature | + +---------+ + + + | Glucose, | 239 (H) | 70 - 109 mg/dL | [facility] | | | POC | | | [facility] | | | | | | [facility]ICAL | | | | | | CENTER - | | | | | | LABORATORY | | + +---------+ + + + + + | Specimen | + + | Blood | + + + + + | Narrative | Performed At | + + + | Glu2: COVERAGE SS | [facility] | | | [facility] | | | - LABORATORY | + + + + + + + + | Performing | Address | City/State/Zipcode | Phone Number | | Organization | | | | + + + + + | [facility] | [address] | [place] | [phone] | | [facility] | | [address] | | | - LABORATORY | | | | + + + + + Extra Green Top Tube (05/08/2017 7:40 PM PST) + +-------+ + + + | Component | Value | Ref Range | Performed | Pathologist | | | | | At | Signature | + +-------+ + + + | Extra Green | Done | | [facility] | | | Top Tube | | | [facility] | | | | | | MEDICAL [...] + | [facility] | [address] | [place] | [phone] | | [facility] | | [address] | | | - LABORATORY | | | | + + + + + POC Glucose (05/08/2017 4:40 PM PST) + +---------+ + + + | Component | Value | Ref Range | Performed | Pathologist | | | | | At | Signature | + +---------+ + + + | Glucose, | 115 (H) | 70 - 109 mg/dL | [facility] | | | POC | | | [facility] | | | | | | MEDICAL [...] + | [facility] | [address] | [place] | [phone] | | [facility] | | [address] | | | - LABORATORY | | | | + + + + + Basic Metabolic Panel (05/08/2017 3:46 PM PST) + + + + + [...] | K | 3.9 | 3.5 - 5.1 | [facility] | | | | | mmol/L | [facility] | | | | | | [facility]ICAL | | | | | | CENTER - | | | | | | LABORATORY | | + + + + + + | Cl | 103 | 98 - 109 mmol/L | [facility] | | | | | | [facility] | | | | | | MEDICAL | | | | | | CENTER - | | | | | | LABORATORY | | + + + + + + | CO2 | 24 | 24 - 31 mmol/L | [facility] | | | | | | [facility] | | | | | | MEDICAL | | | | | | CENTER - | | | | | | LABORATORY | | + + + + + + | Anion Gap | 4 | 3 - 16 mmol/L | [facility] | | | | | | [facility] | | | | | | MEDICAL | | | | | | CENTER - | | | | | | LABORATORY | | + + + + + + | Glucose | 135 (H) | 70 - 109 mg/dL | [facility] | | | | | | [facility] | | | | | | MEDICAL | | | | | | CENTER - | | | | | | LABORATORY | | + + + + + + | BUN | 16 | 7 - 18 mg/dL | [facility] | | | | | | [facility] | | | | | [facility] | | | | | | C[facility] - | | | | | | LABORATORY | | + + + + + + | Creatinine | 0.82 | 0.60 - 1.30 | [facility] | [...] mL/min/1.73m2 | [facility] | | | [place] | RATE,ESTIMATED | | MEDICAL | | | | mL/min/1.33o4Ospf than | | CENTER - | | [...] + + + | Calcium | 7.8 (L) | 8.3 - 10.5 | [facility] | | | | | mg/dL | [facility] | | | | | | MEDICAL | | | | | | CENTER - | | | | | | LABORATORY | | + + + + + + | BUN/Creatin | 19.5 | | [facility] | | | ine [...] + | [facility] | [address] | [place] | [phone] | | [facility] | | [address] | | | - LABORATORY | | | | + + + + + Basic Metabolic Panel (05/08/2017 12:06 PM PST) + + + + + + | Component | Value | Ref Range | Performed | Pathologist | | | | | At | Signature | + + + + + + | Na | 132 (L) | 136 - 149 | [facility] | | | | | mmol/L | [facility] | | | | | | MEDICAL | | | | | | CENTER - | | | | | | LABORATORY | | + + + + + + | K | 4.2 | 3.5 - 5.1 | [facility] | | | | | mmol/L | [facility] | | | | | | MEDICAL | | | | | | CENTER - | | | | | | LABORATORY | | + + + + + + | Cl | 104 | 98 - 109 mmol/L | [facility] | | | | | | [facility] | | | | | | MEDICAL | | | | | | CENTER - | | | | | | LABORATORY | | + + + + + + | CO2 | 24 | 24 - 31 mmol/L | [facility] | | | | | | [facility] | | | | | | MEDICAL | | | | | | CENTER - | | | | | | LABORATORY | | + + + + + + | Anion Gap | 4 | 3 - 16 mmol/L | [facility] | | | | | | [facility] | | | | | | MEDICAL | | | | | | CENTER - | | | | | | LABORATORY | | + + + + + + | Glucose | 215 (H) | 70 - 109 mg/dL | [facility] | | | | | | [facility] | | | | | | MEDICAL | | | | | | CENTER - | | | | | | LABORATORY | | + + + + + + | BUN | 14 | 7 - 18 mg/dL | [facility] | | | | | | [facility] | | | | | | MEDICAL [...] | | | FILTRATION | mL/min/1.73m2 | [facility] | | | [place] | RATE,ESTIMATED | | MEDICAL | | | | mL/min/1.52e5Qyat than | | CENTER - | | [...] + + + + | Calcium | 8.0 (L) | 8.3 - 10.5 | [facility] | | | | | mg/dL | [facility] | | | | | | MEDICAL | | | | | | CENTER - | | | | | | LABORATORY | | + + + + + + | BUN/Creatin | 15.1 | | [facility] | | | ine Ratio | | | [facility] | [...] [address] | [place] | [phone] | | [facility] | | [address] | | | - LABORATORY | | | | + + + + + POC Glucose (05/08/2017 11:39 AM PST) + +---------+ + + + | Component | Value | Ref Range | Performed | Pathologist | | | | | At | Signature | + +---------+ + + + | Glucose, | 137 (H) | 70 - 109 mg/dL | [...] + | [facility] | [address] | [place] | [phone] | | [facility] | | [address] | | | - LABORATORY | | | | + + + + + POC Glucose (05/08/2017 10:28 AM PST) + +---------+ + + + | Component | Value | Ref Range | Performed | Pathologist | | | | | At | Signature | + +---------+ + + + | Glucose, | 236 (H) | 70 - 109 mg/dL | [facility] | | | POC | | | [facility] | | | | | | MEDICAL [...] [address] | [place] | [phone] | | [facility] | | [address] | | | - LABORATORY | | | | + + + + + POC Glucose (05/08/2017 9:11 AM PST) + +---------+ + + + | Component | Value | Ref Range | Performed | Pathologist | | | | | At | Signature | + +---------+ + + + | Glucose, | 282 (H) | 70 - 109 mg/dL | [facility] | | | P[facility] | | | [facility] | | | | | | [facility] [...] [address] | [place] | [phone] | | [facility] | | [address] | | | - LABORATORY | | | | + + + + + POC Glucose (05/08/2017 8:23 AM PST) + +---------+ + + + | Component | Value | Ref Range | Performed | Pathologist | | | | | At | Signature | + +---------+ + + + | Glucose, | 125 (H) | 70 - 109 mg/dL | [facility] | | | POC | | | [facility] | | | | | | MEDICAL [...] [address] | [place] | [phone] | | [facility] | | [address] | | | - LABORATORY | | | | + + + + + Extra Lavender Top Tube (05/08/2017 8:22 AM PST) + +-------+ + + + | Component | Value | Ref Range | Performed | Pathologist | | | | | At | Signature | + +-------+ + + + | Extra | Done | | [facility] | | | Lavender | | | [facility] | | | Top Tube | | | MEDICAL | | | [...] [address] | [place] | [phone] | | [facility] | | [address] | | | - LABORATORY | | | | + + + + + Basic Metabolic Panel (05/08/2017 8:22 AM PST) + + + + + + | Component | Value | Ref Range | Performed | Pathologist | | | | | At | Signature | + + + + + + | Na | 136 | 136 - 149 | [facility] | | | | | mmol/L | [facility] | | | | | | MEDICAL | | | | | | CENTER - | | | | | | LABORATORY | | + + + + + + | K | 3.7 | 3.5 - 5.1 | [facility] | | | | | mmol/L | [facility] | | | | | | MEDICAL | | | | | | CENTER - | | | | | | LABORATORY | | + + + + + + | Cl | 109 | 98 - 109 mmol/L | [facility] | | | | | | [facility] | | | | | | MEDICAL | | | | | | CENTER - | | | | | | LABORATORY | | + + + + + + | CO2 | 23 (L) | 24 - 31 mmol/L | [facility] | | | | | | [facility] | | | | | | MEDICAL | | | | | | CENTER - | | | | | | LABORATORY | | + + + + + + | Anion Gap | 4 | 3 - 16 mmol/L | [facility] | | | | | | [facility] | | | | | | MEDICAL | | | | | | CENTER - | | | | | | LABORATORY | | + + + + + + | Glucose | 136 (H) | 70 - 109 mg/dL | [facility] | | [facility] | [facility] | | | | | | [facility] | | | | | | C[facility] - | | | | | | LABORATORY | | + + + + + + | BUN | 18 | 7 - 18 mg/dL | [facility] | [facility] | [facility] | | | | | | [facility] | | | | | | CENTER - | | | | | | LABORATORY | | + + + + + + | Creatinine | 0.88 | 0.60 - 1.30 | [facility] | | | | | mg/dL | [facility] | | | | | | [facility] | | | | | | CENTER - | | | | | | LABORATORY | | + + + + + + | eGFR if not | >60Comment: GLOMERULAR | >=60 | [facility] | | | | FILTRATION | mL/min/1.73m2 | [facility] | | | [place] | RATE,ESTIMATED | | MEDICAL | | | | mL/min/1.15r5Pvjz than | | CENTER - | | [...] + + + | Calcium | 7.9 (L) | 8.3 - 10.5 | [facility] | | | | | mg/dL | [facility] | | | | | | [facility] | | | | | | CENTER - | | | | | | LABORATORY | | + + + + + + | BUN/Creatin | 20.5 | | [facility] | | | ine Ratio | | | [facility] | | | | | | [facility] [...] [address] | [place] | [phone] | | [facility] | | [id number] | | | - LABORATORY | | | | + + + + + POC Glucose (05/08/2017 7:10 AM PST) + +---------+ + + + | Component | Value | Ref Range | Performed | Pathologist | | | | | At | Signature | + +---------+ + + + | Glucose, | 112 (H) | 70 - 109 mg/dL | [address] | [place] | [phone] | | [facility] | | [address] | | | - LABORATORY | | | | + + + + + POC Glucose (05/08/2017 6:16 AM PST) + +---------+ + + + | Component | Value | Ref Range | Performed | Pathologist | | | | | At | Signature | + +---------+ + + + | Glucose, | 171 (H) | 70 - 109 mg/dL | [facility] | | | POC | | | [facility] | | | | | | MEDICAL [...] [address] | [place] | [phone] | | [facility] | | [address] | | | - LABORATORY | | | | + + + + + POC Glucose (05/08/2017 5:11 AM PST) + +---------+ + + + | Component | Value | Ref Range | Performed | Pathologist | | | | | At | Signature | + +---------+ + + + | Glucose, | 179 (H) | 70 - 109 mg/dL | [...] [address] | [place] | [phone] | | [facility] | | [address] | | | - LABORATORY | | | | + + + + + Basic Metabolic Panel (05/08/2017 4:26 AM PST) + + + + + + | Component | Value | Ref Range | Performed | Pathologist | | | | | At | Signature | + + + + + + | Na | 139 | 136 - 149 | [facility] | | | | | mmol/L | [facility] | | | | | | MEDICAL | | | | | | CENTER - | | | | | | LABORATORY | | + + + + + + | K | 3.8 | 3.5 - 5.1 | [facility] | | | | | mmol/L | [facility] | | | | | | [facility] | | | | | | CENTER - | | | | | | LABORATORY | | + + + + + + | Cl | 112 (H) | 98 - 109 mmol/L | [facility] | | | | | | [facility] | | | | | | [facility] | | | | | | CENTER - | | | | | | LABORATORY | | + + + + + + | CO2 | 24 | 24 - 31 mmol/L | [facility] | | | | | | [facility] | | | | | | [facility] | | | | | | CENTER - | | | | | | LABORATORY | | + + + + + + | Anion Gap | 3 | 3 - 16 mmol/L | [facility] | | | | | | [facility] | | | [facility] | | [facility] | | | | | | CENTER - | | | | | | LABORATORY | | + + + + + + | Glucose | 214 (H) | 70 - 109 mg/dL | [facility] | | | | | | [facility] | | | | | | [facility] | | | | | | CENTER - | | | | | | LABORATORY | | + + + + + + | BUN | 20 (H) | 7 - 18 mg/dL | [facility] | | | | | | [facility] | | | | | | [facility] | | | | | | CENTER - | | | | | | LABORATORY | | + + + + + + | Creatinine | 0.97 | 0.60 - 1.30 | [facility] | | | | | mg/dL | [facility] | | | | | | [facility]ICAL | | | | | | CENTER - | | | | | | LABORATORY | | + + + + + + | eGFR if not | >60Comment: GLOMERULAR | >=60 | [facility] | | | | FILTRATION | mL/min/1.73m2 | [facility] | | | [place] | RATE,ESTIMATED | | MEDICAL | | | | mL/min/1.74u8Mcin than | | CENTER - | | [...] | | | | mg/dL | [facility] | | | | | | MEDICAL | | | | | | CENTER - | | | | | | LABORATORY | | + + + + + + | BUN/Creatin | 20.6 | | [facility] | | | ine Ratio | | | [facility] | | | | | | MEDICAL [...] + | [facility] | [address] | [place] | [phone] | | [facility] | | [address] | | | - LABORATORY | | | | + + + + + Magnesium (05/08/2017 4:26 AM PST) + +-------+ + + + | Component | Value | Ref Range | Performed | Pathologist | | | | | At | Signature | + +-------+ + + + | Magnesium | 2.1 | 1.8 - 2.5 mg/dL | [facility] | | | | [...] ST. | [address] | [place], [place] | [phone] | | [facility] | | [address] | | | - LABORATORY | | | | + + + + + CBC with Differential (05/08/2017 4:26 AM PST) + + + + + + | Component | Value | Ref Range | Performed | Pathologist | | | | | At | Signature | + + + + + + | WBC | 6.7 | 4.0 - 11.0 K/uL | [facility] | | | | | | [facility] | | | | | | [facility] | | | | | | CENTER - | | | | | | LABORATORY | | + + + + + + | RBC | 3.92 (L) | 4.30 - 5.70 | [facility] | | | | | M/uL | [facility] | | | | | | MEDICAL | | | | | | CENTER - | | | | | | LABORATORY | | + + + + + + | Hemoglobin | 12.8 (L) | 13.5 - 18.0 | [facility] | | | | | g/dL | [facility] | | | | | | MEDICAL | | | | | | CENTER - | | | | | | LABORATORY | | + + + + + + | Hematocrit | 35.9 (L) | 40.0 - 51.0 % | [facility] | | | | | | [facility] | | | | | | [facility] | | | | | | CENTER - | | | | | | LABORATORY | | + + + + + + | MCV | 91.6 | 83.0 - 101.0 fL | [facility] | | | | | | [facility] | | | | | | [facility]ICAL | | | | | | CENTER - | | | | | | LABORATORY | | + + + + + + | MCH | 32.7 | 28.0 - 35.0 pg | [facility] | | | | | | [facility] | | | | | | MEDICAL | | | | | | CENTER - | | | | | | LABORATORY | | + + + + + + | MCHC | 35.7 | 32.0 - 36.0 | [facility] | | | | | g/dL | [facility] | | | | | | MEDICAL | | | | | | CENTER - | | | | | | LABORATORY | | + + + + + + | RDW-CV | 13.4 | <15.0 % | [facility] | | | | | | [facility] | | | | | | MEDICAL | | | | | | CENTER - | | | | | | LABORATORY | | + + + + + + | Platelet | 255 | 140 - 440 K/uL | [facility] | | | Count | | | [facility] | | | | | | MEDICAL | | | | | | CENTER - | | | | | | LABORATORY | | + + + + + + | MPV | 7.5 | fL | [facility] | | | | | | [facility] | | | | | | MEDICAL | | | | | | CENTER - | | | | | | LABORATORY | | + + + + + + | % | 62.6 | 45.0 - 82.0 % | [facility] | | | Neutrophils | | | [facility] | | | | | | MEDICAL | | | | | | CENTER - | | | | | | LABORATORY | | + + + + + + | % | 27.0 | 20.0 - 45.0 % | [facility] | | | Lymphocytes | | | [facility] | | | | | | MEDICAL | | | | | | CENTER - | | | | | | LABORATORY | | + + + + + + | % Monocytes | 8.7 | 4.0 - 12.0 % | [facility] | | | | | | [facility] | | | | | | MEDICAL | | | | | | CENTER - | | | | | | LABORATORY | | + + + + + + | % | 1.0 | 0.0 - 5.0 % | [facility] | | | Eosinophils | | | [facility] | | | | | | MEDICAL | | | | | | CENTER - | | | | | | LABORATORY | | + + + + + + | % Basophils | 0.7 | 0.0 - 1.0 % | [facility] | | | | | | [facility] | | | | | | MEDICAL | | | | | | CENTER - | | | | | | LABORATORY | | + + + + + + | Absolute | 4.20 | 1.80 - 8.50 | [facility] | | | Neutrophils | | K/uL | [facility] | | | | | | MEDICAL | | | | | | CENTER - | | | | | | LABORATORY | | + + + + + + | Absolute | 1.80 | 0.60 - 3.20 | [facility] | | | Lymphocytes | | K/uL | [facility] | | | | | | MEDICAL | | | | | | CENTER - | | | | | | LABORATORY | | + + + + + + | Absolute | 0.60 | 0.00 - 1.00 | [facility] | [...] | Basophils | | K/uL | [facility] | [...] + | [facility] | [address] | [place] | [phone] | | [facility] | | [address] | | | - LABORATORY | | | | + + + + + POC Glucose (05/08/2017 4:17 AM PST) + +---------+ + + + | Component | Value | Ref Range | Performed | Pathologist | | | | | At | Signature | + +---------+ + + + | Glucose, | 201 (H) | 70 - 109 mg/dL | [...] [address] | [place] | [phone] | | [facility] | | [address] | | | - LABORATORY | | | | + + + + + POC Glucose (05/08/2017 3:16 AM PST) + +---------+ + + + | Component | Value | Ref Range | Performed | Pathologist | | | | | At | Signature | + +---------+ + + + | Glucose, | 237 (H) | 70 - 109 mg/dL | [...] + | [facility] | [address] | [place] | [phone] | | [facility] | | [address] | | | - LABORATORY | | | | + + + + + POC Glucose (05/08/2017 2:10 AM PST) + +---------+ + + + | Component | Value | Ref Range | Performed | Pathologist | | | | | At | Signature | + +---------+ + + + | Glucose, | 234 (H) | 70 - 109 mg/dL | [...] [address] | [place] | [phone] | | [facility] | | [address] | | | - LABORATORY | | | | + + + + + POC Glucose (05/08/2017 12:59 AM PST) + +---------+ + + + | Component | Value | Ref Range | Performed | Pathologist | | | | | At | Signature | + +---------+ + + + | Glucose, | 221 (H) | 70 - 109 mg/dL | [facility] | | | P[facility] | | | [facility] | | | | | | [facility] [...] [address] | [place] | [phone] | | [facility] | | [address] | | | - LABORATORY | | | | + + + + + POC Glucose (05/08/2017 12:06 AM PST) + +---------+ + + + | Component | Value | Ref Range | Performed | Pathologist | | | | | At | Signature | + +---------+ + + + | Glucose, | 193 (H) | 70 - 109 mg/dL | [...] + | [facility] | [address] | [place] | [phone] | | [facility] | | [address] | | | - LABORATORY | | | | + + + + + Basic Metabolic Panel (05/08/2017 12:02 AM PST) + + + + + + | Component | Value | Ref Range | Performed | Pathologist | | | | | At | Signature | + + + + + + | Na | 140 | 136 - 149 | [facility] | | | | | mmol/L | [facility] | | | | | | MEDICAL | | | | | | CENTER - | | | | | | LABORATORY | | + + + + + + | K | 4.5 | 3.5 - 5.1 | [facility] | | | | | mmol/L | [facility] | | | | | | MEDICAL | | | | | | CENTER - | | | | | | LABORATORY | | + + + + + + | Cl | 110 (H) | 98 - 109 mmol/L | [facility] | | | | | | [facility] | | | | | | MEDICAL | | | | | | CENTER - | | | | | | LABORATORY | | + + + + + + | CO2 | 21 (L) | 24 - 31 mmol/L | [facility] | | | | | | [facility] | | | | | | MEDICAL | | | | | | CENTER - | | | | | | LABORATORY | | + + + + + + | Anion Gap | 9 | 3 - 16 mmol/L | [facility] | | | | | | [facility] | | | | | | MEDICAL | | | | | | CENTER - | | | | | | LABORATORY | | + + + + + + | Glucose | 188 (H) | 70 - 109 mg/dL | [facility] | | [facility] | | | | | | MEDICAL | | | | | | CENTER - | | | | | | LABORATORY | | + + + + + + | BUN | 25 (H) | 7 - 18 mg/dL | [facility] | | | | | | [facility] | | | | | | MEDICAL | | | | | | CENTER - | | | | | | LABORATORY | | + + + + + + | Creatinine | 1.18 | 0.60 - 1.30 | [facility] | [...] mL/min/1.73m2 | [facility] | | | [place] | RATE,ESTIMATED | | MEDICAL | | | | mL/min/1.19s6Xdav than | | CENTER - | | [...] + + + + | Calcium | 8.2 (L) | 8.3 - 10.5 | [facility] | | | | | mg/dL | [facility] | | | | | | MEDICAL | | | | | | CENTER - | | | | | | LABORATORY | | + + + + + + | BUN/Creatin | 21.2 | | [facility] | | | ine Ratio | | | [facility] | | | | | | [...] [address] | [place] | [phone] | | [facility] | | [address] | | | - LABORATORY | | | | + + + + + POC Glucose (05/07/2017 10:58 PM PST) + +---------+ + + + | Component | Value | Ref Range | Performed | Pathologist | | | | | At | Signature | + +---------+ + + + | Glucose, | 122 (H) | 70 - 109 mg/dL | [...] [address] | [place] | [phone] | | [facility] | | [address] | | | - LABORATORY | | | | + + + + + POC Glucose (05/07/2017 9:57 PM PST) + +---------+ + + + | Component | Value | Ref Range | Performed | Pathologist | | | | | At | Signature | + +---------+ + + + | Glucose, | 121 (H) | 70 - 109 mg/dL | [facility] | | | POC | | | [facility] | | | | | | MEDICAL [...] + | [facility] | [address] | [place] | [phone] | | [facility] | | [address] | | | - LABORATORY | | | | + + + + + POC Glucose (05/07/2017 8:53 PM PST) + +---------+ + + + | Component | Value | Ref Range | Performed | Pathologist | | | | | At | Signature | + +---------+ + + + | Glucose, | 215 (H) | 70 - 109 mg/dL | [facility] | | | POC | | | [facility] | | | | | | MEDICAL [...] [address] | [place] | [phone] | | [facility] | | [address] | | | - LABORATORY | | | | + + + + + Basic Metabolic Panel (05/07/2017 8:06 PM PST) + + + + + + | Component | Value | Ref Range | Performed | Pathologist | | | | | At | Signature | + + + + + + | Na | 139 | 136 - 149 | [facility] | | | | | mmol/L | [facility] | | | | | | MEDICAL | | | | | | CENTER - | | | | | | LABORATORY | | + + + + + + | K | 4.3 | 3.5 - 5.1 | [facility] | | | | | mmol/L | [facility] | | | | | | MEDICAL | | | | | | CENTER - | | | | | | LABORATORY | | + + + + + + | Cl | 108 | 98 - 109 mmol/L | [facility] | | | | | | [facility] | | | | | | MEDICAL | | | | | | CENTER - | | | | | | LABORATORY | | + + + + + + | CO2 | 16 (L) | 24 - 31 mmol/L | [facility] | | | | | | [facility] | | | | | | MEDICAL | | | | | | CENTER - | | | | | | LABORATORY | | + + + + + + | Anion Gap | 15 | 3 - 16 mmol/L | [facility] | | | | | | [facility] | | | | | | MEDICAL | | | | | | CENTER - | | | | | | LABORATORY | | + + + + + + | Glucose | 262 (H) | 70 - 109 mg/dL | [facility] | | | | | | [facility] | | | | | | MEDICAL | | | | | | CENTER - | | | | | | LABORATORY | | + + + + + + | BUN | 30 (H) | 7 - 18 mg/dL | [facility] | | | | | | [facility] | | | | | | MEDICAL | | | | | | CENTER - | | | | | | LABORATORY | | + + + + + + | Creatinine | 1.59 (H) | 0.60 - 1.30 | [facility] | | | | | mg/dL | [facility] | | | | | | MEDICAL | | | | | | CENTER - | | | | | | LABORATORY | | + + + + + + | eGFR if not | 50 (L)Comment: | >=60 | [facility] | | | | GLOMERULAR FILTRATION | mL/min/1.73m2 | [facility] | | | [place] | RATE,ESTIMATED | | MEDICAL | | | | mL/min/1.63c9Uuic than | | CENTER - | | [...] + + + + | Calcium | 8.6 | 8.3 - 10.5 | [facility] | | | | | mg/dL | [facility] | | | | | | MEDICAL | | | | | | CENTER - | | | | | | LABORATORY | | + + + + + + | BUN/Creatin | 18.9 | | [facility] | | | ine Ratio | | | [facility] | | | | | | MEDICAL [...] [address] | [place] | [phone] | | [facility] | | [address] | | | - LABORATORY | | | | + + + + + POC Glucose (05/07/2017 7:40 PM PST) + +---------+ + + + | Component | Value | Ref Range | Performed | Pathologist | | | | | At | Signature | + +---------+ + + + | Glucose, | 281 (H) | 70 - 109 mg/dL | [facility] | | | POC | | | [facility] | | | | | | MEDICAL [...] + | [facility] | [address] | [place] | [phone] | | [facility] | | [address] | | | - LABORATORY | | | | + + + + + POC Glucose (05/07/2017 6:42 PM PST) + +---------+ + + + | Component | Value | Ref Range | Performed | Pathologist | | | | | At | Signature | + +---------+ + + + | Glucose, | 350 (H) | 70 - 109 mg/dL | [facility] | | | POC | | | [facility] | | | | | | MEDICAL [...] [address] | [place] | [phone] | | [facility] | | [address] | | | - LABORATORY | | | | + + + + + POC Glucose (05/07/2017 5:49 PM PST) + +---------+ + + + | Component | Value | Ref Range | Performed | Pathologist | | | | | At | Signature | + +---------+ + + + | Glucose, | 443 (H) | 70 - 109 mg/dL | [...] [address] | [place] | [phone] | | [facility] | | [address] | | | - LABORATORY | | | | + + + + + Basic Metabolic Panel (05/07/2017 5:44 PM PST) + + + + + [...] + + + + | K | 4.3 | 3.5 - 5.1 | [facility] | | | | | mmol/L | [facility] | | | | | | MEDICAL | | | | | | CENTER - | | | | | | LABORATORY | | + + + + + + | Cl | 103 | 98 - 109 mmol/L | [facility] | | | | | | [facility] | | | | | | MEDICAL | | | | | | CENTER - | | | | | | LABORATORY | | + + + + + + | CO2 | 10 (LL)Comment: | 24 - 31 mmol/L | [facility] | | | | Consistent with previous | | [facility] | | | | results. | | MEDICAL | | | | | | CENTER - | | | | | | LABORATORY | | + + + + + + | Anion Gap | 22 (H) | 3 - 16 mmol/L | [facility] | | | | | | [facility] | | | | | | MEDICAL | | | | | | CENTER - | | | | | | LABORATORY | | + + + + + + | Glucose | 463 (H) | 70 - 109 mg/dL | [facility] | | | | | | [facility] | | | | | | MEDICAL | | | | | | CENTER - | | | | | | LABORATORY | | + + + + + + | BUN | 33 (H) | 7 - 18 mg/dL | [facility] | | | | [facility] | | | | | | MEDICAL | | | | | | CENTER - | | | | | | LABORATORY | | + + + + + + | Creatinine | 1.82 (H) | 0.60 - 1.30 | [facility] | | | | | mg/dL | [facility] | | | | | | MEDICAL | | | | | | CENTER - | | | | | | LABORATORY | | + + + + + + | eGFR if not | 42 (L)Comment: | >=60 | [facility] | | | | GLOMERULAR FILTRATION | mL/min/1.73m2 | [facility] | | | [place] | RATE,ESTIMATED | | MEDICAL | | | | mL/min/1.93s9Aufg than | | CENTER - | | [...] + + + + | Calcium | 8.7 | 8.3 - 10.5 | [facility] | | | | | mg/dL | [facility] | | | | | | MEDICAL | | | | | | CENTER - | | | | | | LABORATORY | | + + + + + + | BUN/Creatin | 18.1 | | [facility] | | | ine Ratio | | | [facility] | | | | | | MEDICAL [...] [address] | [place] | [phone] | | [facility] | | [address] | | | - LABORATORY | | | | + + + + + Culture, MRSA (05/07/2017 5:31 PM PST) + + + + + + | Component | Value | Ref Range | Performed | Pathologist | | | | | At | Signature | + + + + + + | Culture | Negative for MRSA by | | [facility] | | | | chromogenic agar method | | [facility] | | | | | | MEDICAL | | | | | | CENTER - | | | | | | LABORATORY | | + + + + + + | Culture | 1+ Staphylococcus | | [facility] | | | | coagulase positive | | [facility] | | | | | | MEDICAL [...] [address] | [place] | [phone] | | [facility] | | [address] | | | - LABORATORY | | | | + + + + + ECG 12 lead (05/07/2017 5:23 PM PST) + + + + + + | Component | Value | Ref Range | Performed | Pathologist | | | | | At | Signature | + + + + + + | VENTRICULAR | 87 | BPM | [facility] | | | RATE EKG | | | | | + + + + + + | ATRIAL RATE | 87 | BPM | [facility] | | + + + + + + | P-R | 142 | ms | [facility] | | | INTERVAL | | | | | + + + + + + | QRS | 78 | ms | [facility] | | | DURATION | | | | | + + + + + + | Q-T | 346 | ms | [facility] | | | INTERVAL | | | | | + + + + + + | Q-T | 416 | ms | [facility] | | | INTERVAL | | | | | | (CORRECTED) | | | | | + + + + + + | P WAVE AXIS | 62 | degrees | [facility] | | + + + + + + | QRS AXIS | 84 | degrees | [facility] | | + + + + + + | T AXIS | 66 | degrees | [facility] | | + + + + + + | INTERPRETAT | Normal sinus | | [facility] | | | ION TEXT | rhythmprobable early | | | | | | repolarization pattern | | | | | | though | | | | | | ischemia/infarction/ramiro | | | | | | carditis cannot be | | | | | | excludedWhen compared | | | | | | with ECG of of | | | | | | 04/19/17 at | | | | | | 09:39:27Sinus rhythm has | | | | | | replaced Ectopic atrial | | | | | | rhythmthere is no | | | | | | significant | | | | | | changeConfirmed by | | | | | | HAWA RUBIN MD ([id number]) | | | | | | on 05/08/2017 7:10:41 AM | | | | | | | [...] | + +---------+ + + POC Glucose (05/07/2017 4:32 PM PST) + +---------+ + + + | Component | Value | Ref Range | Performed | Pathologist | | | | | At | Signature | + +---------+ + + + | Glucose, | 558 (H) | 70 - 109 mg/dL | [facility] | | | POC | | | [facility] | | | | | | MEDICAL [...] + | [facility] | [address] | [place] | [phone] | | [facility] | | [address] | | | - LABORATORY | | | | + + + + + Extra Green Top Tube (05/07/2017 1:42 PM PST) + +-------+ + + + | Component | Value | Ref Range | Performed | Pathologist | | | | | At | Signature | + +-------+ + + + | Extra Green | Done | | [facility] | | | Top Tube | | | [facility] | | | | | | MEDICAL [...] + | [facility] | [address] | [place] | [phone] | | [facility] | | [address] | | | - LABORATORY | | | | + + + + + Extra Blue Top Tube (05/07/2017 1:42 PM PST) + +-------+ + + + [...] + | [facility] | [address] | [place] | [phone] | | [facility] | | [address] | | | - LABORATORY | | | | + + + + + Extra Gold Top Tube (05/07/2017 1:42 PM PST) + +-------+ + + + [...] [address] | [place] | [phone] | | [facility] | | [address] | | | - LABORATORY | | | | + + + + + Basic Metabolic Panel (05/07/2017 1:42 PM PST) + + + + + + | Component | Value | Ref Range | Performed | Pathologist | | | | | At | Signature | + + + + + + | Na | 128 (L) | 136 - 149 | [facility] | | | | | mmol/L | [facility] | | | | | | MEDICAL | | | | | | CENTER - | | | | | | LABORATORY | | + + + + + + | K | 5.2 (H) | 3.5 - 5.1 | [facility] | | | | | mmol/L | [facility] | | | | | | MEDICAL | | | | | | CENTER - | | | | | | LABORATORY | | + + + + + + | Cl | 90 (L) | 98 - 109 mmol/L | [facility] | | | | | | [facility] | | | | | | MEDICAL | | | | | | CENTER - | | | | | | LABORATORY | | + + + + + + | CO2 | 10 (LL)Comment: Critical | 24 - 31 mmol/L | [facility] | | | | Result called to and | | [facility] | | | | read back by gi Owens | | MEDICAL | | | | on 05/07/2017 at 15:04 | | CENTER - | | | | by Carly Barron. | | LABORATORY | | | | | | | | + + + + + + | Anion Gap | 28 (H) | 3 - 16 mmol/L | [facility] | | | | | | [facility] | | | | | | MEDICAL | | | | | | CENTER - | | | | | | LABORATORY | | + + + + + + | Glucose | 732 (HH)Comment: | 70 - 109 mg/dL | [facility] | | | | Critical Result called | | [facility] | | | | to and read back by | | MEDICAL | | | | Gi Owens on 05/07/2017 | | CENTER - | | | | at 15:04 by Carly | | LABORATORY | | | | Jia Barron. | | | | + + + + + + | BUN | 32 (H) | 7 - 18 mg/dL | [facility] | | | | | | [facility] | | | | | | MEDICAL | | | | | | CENTER - | | | | | | LABORATORY | | + + + + + + | Creatinine | 1.69 (H) | 0.60 - 1.30 | [facility] | | | | | mg/dL | [facility] | | | | | | MEDICAL | | | | | | CENTER - | | | | | | LABORATORY | | + + + + + + | eGFR if not | 46 (L)Comment: | >=60 | [facility] | | | | GLOMERULAR FILTRATION | mL/min/1.73m2 | [facility] | | | [place] | RATE,ESTIMATED | | MEDICAL | | | | mL/min/1.20e6Otip than | | CENTER - | | [...] + + + + | BUN/Creatin | 18.9 | | [facility] | | | ine Ratio | | [...] [address] | [place] | [phone] | | [facility] | | [address] | | | - LABORATORY | | | | + + + + + CBC with Differential (05/07/2017 1:42 PM PST) + + + + + + | Component | Value | Ref Range | Performed | Pathologist | | | | | At | Signature | + + + + + + | WBC | 5.2 | 4.0 - 11.0 K/uL | [facility] | | | | | | [facility] | | | | | | MEDICAL | | | | | | CENTER - | | | | | | LABORATORY | | + + + + + + | RBC | 4.65 | 4.30 - 5.70 | [facility] | | | | | M/uL | [facility] | | | | | | MEDICAL | | | | | | CENTER - | | | | | | LABORATORY | | + + + + + + | Hemoglobin | 15.1 | 13.5 - 18.0 | [facility] | | | | | g/dL | [facility] | | | | | | MEDICAL | | | | | | CENTER - | | | | | | LABORATORY | | + + + + + + | Hematocrit | 45.0 | 40.0 - 51.0 % | [facility] | | | | | | [facility] | | | | | | [facility] | | | | | | [facility] - | | | | | | LABORATORY | | + + + + + + | MCV | 96.7 | 83.0 - 101.0 fL | [facility] | | | | | | [facility] | | | | | | [facility] | | | | | | [facility] - | | | | | | LABORATORY | | + + + + + + | MCH | 32.4 | 28.0 - 35.0 pg | [facility] | | | | | | [facility] | | | | | | [facility] | | | | | | [facility] - | | | | | | LABORATORY | | + + + + + + | MCHC | 33.6 | 32.0 - 36.0 | [facility] | | | | | g/dL | [facility] | | | | | | [facility] | | | | | | CENTER - | | | | | | LABORATORY | | + + + + + + | RDW-CV | 13.5 | <15.0 % | [facility] | | | | | | [facility] | | | | | | [facility] | | | | | | [facility] - | | | | | | LABORATORY | | + + + + + + | Platelet | 267 | 140 - 440 K/uL | [facility] | | | Count | | | [facility] | | | | | | [facility] | | | | | | C[facility] - | | | | | | LABORATORY | | + + + + + + | MPV | 8.6 | fL | [facility] | | | | | | [facility] | | | [facility] | | [facility] | | | | | | [facility] - | | | | | | LABORATORY | | + + + + + + | % | 82.0 | 45.0 - 82.0 % | [facility] | | | Neutrophils | | | [facility] | | | | | | [facility] | | | | | | CENTER - | | | | | | LABORATORY | | + + + + + + | % | 13.4 (L) | 20.0 - 45.0 % | [facility] | | | Lymphocytes | | | [facility] | | | | | | [facility] | | | | | | CENTER - | | | | | | LABORATORY | | + + + + + + | % Monocytes | 3.4 (L) | 4.0 - 12.0 % | [facility] | | | | | | [facility] | | | | | | [facility] | | | | | | [facility] - | | | | | | LABORATORY | | + + + + + + | % | 0.3 | 0.0 - 5.0 % | [facility] | | | Eosinophils | | | [facility] | | | | | | [facility] | | | | | | CENTER - | | | | | | LABORATORY | | + + + + + + | % Basophils | 0.9 | 0.0 - 1.0 % | [facility] | | | | | | [facility] | | | | | | [facility] | | | | | | [facility] - | | | | | | LABORATORY | | + + + + + + | Absolute | 4.20 | 1.80 - 8.50 | [facility] | | | Neutrophils | | K/uL | [facility] | | | | | | [facility] | | | | | | [facility] - | | | | | | LABORATORY | | + + + + + + | Absolute | 0.70 | 0.60 - 3.20 | [facility] | | | Lymphocytes | | K/uL | [facility] | | | | | | [facility] | | | | | | CENTER - | | | | | | LABORATORY | | + + + + + + | Absolute | 0.20 | 0.00 - 1.00 | [facility] | | | Monocytes | | K/uL | [facility] | | | | | | [facility] | | | | | | CENTER - | | | | | | LABORATORY | | + + + + + + | Absolute | 0.00 | 0.00 - 0.40 | [facility] | | | Eosinophils | | K/uL | [facility] | | | | | | [facility] | | | | | | C[facility] - | | | | | | LABORATORY | | + + + + + + | Absolute | 0.00 | 0.00 - 0.10 | [facility] | | | Basophils | | K/uL | [facility] | | | | | | [facility] [...] [address] | [place] | [phone] | | [facility] | | [id number] | | | - LABORATORY | | | | + + + + + POC Blood Gases (05/07/2017 1:39 PM PST) + + + + + + | Component | Value | Ref Range | Performed | Pathologist | | | | | At | Signature | + + + + + + | Specimen | Vein | | [facility] | | | Source | | | [facility] | | | | | | [facility] | | | | | | CENTER - | | | | | | LABORATORY | | + + + + + + | pH, POC | 7.267 (L) | 7.3 - 7.45 | [facility] | | | | | | [facility] | | | | | | [facility] | | | | | | [facility] - | | | | | | LABORATORY | | + + + + + + | HCO3, POC | 10.4 (L) | 21.0 - 28.0 | [facility] | | | | | mmol/L | [facility] | | | | | | [facility] | | | | | | CENTER - | | | | | | LABORATORY | | + + + + + + | TCO2, POC | 11.1 (L) | 22.0 - 29.0 | [facility] | | | | | mmol/L | [facility] | | | | | | [facility] | | | | | | CENTER - | | | | | | LABORATORY | | + + + + + + | Base | -14.4 (L) | -2.0 - 3.0 | [facility] | | | Excess, POC | | mmol/L | [facility] | | | | | | [facility] | | | | | | CENTER - | | | | | | LABORATORY | | + + + + + + | Base | -16.6 (L) | -2.0 - 3.0 | [facility] | | | Excess, | | mmol/L | [facility] | | | [facility] | | | MEDICAL | | | ar fluid, | | | CENTER - | | | POC | | | LABORATORY | | + + + + + + | O2 Sat, POC | 79 (L) | 90 - 100 % | [facility] | | | | | [facility] | | | | | | MEDICAL | | | | | | CENTER - | | | | | | LABORATORY | | + + + + + + | PCO2, POC | 22.8 (L) | 35.0 - 50.0 | [facility] | | | | | mmHg | [facility] | | [facility] | | | MEDICAL | | | | | | CENTER - | | | | | | LABORATORY | | + + + + + + | pO2, POC | 48.1 | 25.0 - 50.0 | [facility] | | | | | mmHg | [facility] | | | | | | MEDICAL [...] [address] | [place] | [phone] | | [facility] | | [address] | | | - LABORATORY | | | | + + + + + POC Glucose (05/07/2017 12:17 PM PST) + + + + + [...] ST. | [address] | [place], [place] | [phone] | | [facility] | | [address] | | | - LABORATORY | | | | + + + + + documented in this encounter Visit Diagnoses + + | Diagnosis | + + | Diabetic ketoacidosis without coma associated with type 1 diabetes mellitus (HCC) - | | Primary | + + | Nausea Nausea alone | + + | IDDM (insulin dependent diabetes mellitus) ([facility]) Type II or unspecified type diabetes | | mellitus without mention of complication, not stated as uncontrolled | + + documented in this encounter Administered Medications + +--------+ +--------+------+------+ | Medication Order | MAR | Action | Dose | Rate | Site | | | Action | Date | | | | + +--------+ +--------+------+------+ | acetaminophen (TYLENOL) tablet | Given | 05/08/ | 650 mg | | | | 650 mg 650 mg, Oral, EVERY 4 | | 17 7:23 | | | | | HOURS PRN, Pain, Starting Kailey | | PM PST | | | | | 05/08/17 at 1812 | | | | | | + +--------+ +--------+------+------+ +---+---+ | | | +---+---+ + +---------+ +---+-------+---+ | dextrose 5% and sodium chloride | New Bag | 05/08/20 | | 250 | | | 0.45% (D5 1/2 NS) infusion at | | 17 8:37 | | mL/hr | | | 250 mL/hr, Intravenous, PRN, | | AM PST | | | | | begin when Blood Glucose drops | | | | | | | below 250 mg/dL, Starting Wed | | | | | | | 05/07/17 at 1634, Begin at same | | | | | | | rate as any previous running IV | | | | | | | fluid. Stop any other IV fluid. | | | | | | | Discontinue when eating., | | | | | | + +---------+ +---+-------+---+ +---------+ +--------+-------+---+ | New Bag | 05/08/20 | 1,000 | 200 | | | | 17 3:05 | mLs | mL/hr | | | | AM PST | | | | +---------+ +--------+-------+---+ | New Bag | 05/07/20 | 1,000 | 200 | | | | 17 9:59 | mLs | mL/hr | | | | PM PST | | | | +---------+ +--------+-------+---+ + +---+ | | | + +---+ | dextrose 50% injection 12.5 g | | | 12.5 g, Intravenous, PRN, Low | | | Blood Sugar, Starting Wed | | | 05/07/17 at 1634 | | + +---+ | | | + +---+ + +-------+ + +---+ + | insulin glargine (LANTUS | Given | 05/09/20 | 25 Units | | Abdomen- | | SOLOSTAR) 100 units/mL injection | | 17 9:21 | | | LLQ | | (pen) 25 Units 25 Units, | | AM PST | | | | | Subcutaneous, EVERY MORNING, | | | | | | | First dose on [facility] 05/08/17 at | | | | | | | 0900, For subcutaneous use only. | | | | | | | Basal (long acting) insulin., | | | | | | + +-------+ + +---+ + +-------+ + +---+ + | Given | 05/08/20 | 25 Units | | Abdomen- | | | 17 9:33 | | | LLQ | | | AM PST | | | | +-------+ + +---+ + +---+---+ | | | +---+---+ + +-------+ +---------+---+ + | insulin lispro (humaLOG | Given | 05/09/20 | 1 Units | | Abdomen- | | KWIKPEN) 100 units/mL injection | | 17 9:21 | | | LLQ | | (pen) 0-6 Units 0-6 Units, | | AM PST | | | | | Subcutaneous, 4 TIMES DAILY WITH | | | | | | | MEALS & NIGHTLY, First dose on | | | | | | | [facility] 05/08/17 at 1200, CORRECTION | | | | | | [...] | | | | | | DAY: 3 units. NIGHT: 2 units | | | | | | | BG 301-350: DAY: 4 units. NIGHT: | | | | | | | 3 units BG 351-400: DAY: 5 | | | | | | | units. NIGHT: 4 units BG > | | | | | | | 400 : DAY: 6 units. NIGHT: 5 | | | | | | | units | | | | | | | AND CALL PROVIDER Use DAY DOSE | | | | | | | for doses scheduled: AC, | | | | | | | NPO, Daytime [id number] Use NIGHT | | | | | | | DOSE for doses scheduled: | | | | | | | HS, 3AM, Nighttime 1147-5653, | | | | | | + +-------+ +---------+---+ + +-------+ +---------+---+ + | Given | 16 | 2 Units | | Arm-Left | | | 17 9:41 | | | Upper | | | PM PST | | | | +-------+ +---------+---+ + +---+---+ | | | +---+---+ + +-------+ +---------+---+ + | insulin lispro (humaLOG | Given | 05/08/20 | 6 Units | | Abdomen- | | KWIKPEN) 100 units/mL injection | | 17 9:35 | | | LLQ | | (pen) 1-16 Units 1-16 Units, | | AM PST | | | | | Subcutaneous, 3 TIMES DAILY WITH | | | | | | | MEALS, First dose on Fri05/07/17 | | | | | | | at 2215, Nutritional coverage | | | | | | | during Insulin Infusion. Begin | | | | | | | subcutaneous prandial insulin | | | | | | | lispro (HUMALOG) when PO intake | | | | | | | begins, including clear liquids. | | | | | | | Give subcutaneous insulin | | | | | | | immediately before meal. If | | | | | | | intake uncertain or inconsistent, | | | | | | | give dose within 30 minutes | | | | | | | after starting meal or | | | | | | | immediately after meal is | | | | | | | completed. If patient refuses | | | | | | | meal or eats < 1/4 of meal, then | | | | | | | hold nutritional dose. 1/4 meal = | | | | | | | 10-19 g = 1 carb serving 1/2 | | | | | | | meal = 20-34 g = 2 carb servings | | | | | | | 3/4 meal = 35-49 g = 3 carb | | | | | | | servings Full meal = > 50 g = 4 | | | | | | | carb servings Current insulin | | | | | | | SQ insulin dose Infusion rate | | | | | | | 0-1.9 | | | | | | | units/hour 1/4 meal=1unit SQ | | | | | | | 1/2 | | | | | | | meal=3 units SQ | | | | | | | 3/4 meal=4 units SQ | | | | | | | Full | | | | | | | meal=6 units SQ 2-3.9 units/hour | | | | | | | 1/4 meal=2 units SQ | | | | | | | 1/2 meal=4 | | | | | | | units SQ | | | | | | | 3/4 meal=6 units SQ | | | | | | | Full meal=8 | | | | | | | units SQ 4-5.9 units/hour 1/4 | | | | | | | meal=2 units SQ | | | | | | | 1/2 meal=5 units SQ | | | | | | | 3/4 | | | | | | | meal=7 units SQ | | | | | | | Full meal=10 units SQ | | | | | | | 6-7.9 units/hour 1/4 meal=3 | | | | | | | units SQ | | | | | | | 1/2 meal=6 units SQ | | | | | | | 3/4 meal=9 | | | | | | | units SQ | | | | | | | Full meal=12 units SQ 8-10 | | | | | | | units/hour 1/4 meal=3 units | | | | | | | SQ | | | | | | | 1/2 meal=7 units SQ | | | | | | | 3/4 meal=10 units | | | | | | | SQ | | | | | | | Full meal=14 units SQ > 10 | | | | | | | units/hour 1/4 meal=4 units | | | | | | | SQ | | | | | | | 1/2 meal=8 units SQ | | | | | | | 3/4 meal=12 units | | | | | | | SQ | | | | | | | Full meal=16 units SQ, | | | | | | + +-------+ +---------+---+ + +---+---+ | | | +---+---+ + +-------+ +---------+---+ + | insulin lispro (humaLOG | Given | 05/09/20 | 5 Units | | Abdomen- | | KWIKPEN) 100 units/mL injection | | 17 9:22 | | | LLQ | | (pen) 5 Units 5 Units, | | AM PST | | | | | Subcutaneous, 3 TIMES DAILY WITH | | | | | | | MEALS, First dose on [facility] 05/08/17 | | | | | | | at 1200 | | | | | | + +-------+ +---------+---+ + +-------+ +---------+---+ + | Given | 05/08/20 | 5 Units | | Abdomen- | | | 17 5:59 | | | LLQ | | | PM PST | | | | +-------+ +---------+---+ + | Given | 05/08/20 | 5 Units | | Abdomen- | | | 17 1:04 | | | RLQ | | | PM PST | | | | +-------+ +---------+---+ + +---+---+ | | | +---+---+ + + + + +-------+---+ | insulin regular (humuLIN R, | Rate/Dos | 05/08/20 | 1.3 | 1.3 | | | novoLIN R) 1 Units/mL in sodium | e Change | 17 7:11 | Units/hr | mL/hr | | | chloride 0.9% 100 mL infusion | | AM PST | | | | | (Adult Protocol) 0-101.2 | | | | | | | Units/hr (0-101.2 mL/hr), at | | | | | | | 0-101.2 mL/hr, Intravenous, | | | | | | | TITRATED, Starting 05/07/17 | | | | | | | at 2215, Start at 5 units/hour. | | | | | | | See link for Adult Columnar | | | | | | | Insulin Infusion (on AUG) and | | | | | | | Insulin Infusion Protocol order | | | | | | | for administration instructions., | | | | | | | | | | | | | + + + + +-------+---+ + + + +-------+---+ | Rate/Dose Change | 05/08/20 | 3.3 | 3.3 | | | | 17 6:17 | Units/hr | mL/hr | | | | AM PST | | | | + + + +-------+---+ | Rate/Dose Change | 05/08/20 | 3.6 | 3.6 | | | | 17 5:13 | Units/hr | mL/hr | | | | AM PST | | | | + + + +-------+---+ +---+---+ | | | +---+---+ + + + + +-------+---+ | insulin regular (humuLIN R, | Restarte | 05/07/20 | 0.099 | 6.1 | | | novoLIN R) 1 Units/mL in sodium | d | 17 4:04 | Units/kg | mL/hr | | | chloride 0.9% 100 mL infusion | | PM PST | /hr | | | | 0.099 Units/kg/hr | | | | | | | 61.2 kg (6.0588 mL/hr, rounded | | | | | | | to 6.1 mL/hr), at 6.1 mL/hr, | | | | | | | Intravenous, TITRATED, Starting | | | | | | | 05/07/17 at 1515 | | | | | | + + + + +-------+---+ +---------+ + +-------+---+ | New Bag | 05/07/20 | 0.099 | 6.1 | | | | 17 3:30 | Units/kg | mL/hr | | | | PM PST | /hr | | | +---------+ + +-------+---+ +---+---+ | | | +---+---+ + +-------+ +------+---+---+ | ondansetron (ZOFRAN) injection | Given | 05/07/20 | 4 mg | | | | 4 mg 4 mg, Intravenous, ONCE, | | 17 2:08 | | | | | 05/07/17 at 1405, For 1 dose | | PM PST | | | | + +-------+ +------+---+---+ +---+---+ | | | +---+---+ + +---------+ +--------+-------+---+ | sodium chloride 0.9% (NS) bolus | New Bag | 05/07/20 | 1,000 | 2000 | | | 1,000 mL 1,000 mL, Intravenous, | | 17 1:38 | mLs | mL/hr | | | Administer over 30 Minutes, | | PM PST | | | | | ONCE, Fri05/07/17 at 1315, For 1 | | | | | | | dose | | | | | | + +---------+ +--------+-------+---+ +---+---+ | | | +---+---+ + +---------+ +--------+-------+---+ | sodium chloride 0.9% (NS) bolus | New Bag | 05/07/20 | 1,000 | 500 | | | 1,000 mL 1,000 mL, Intravenous, | | 17 3:30 | mLs | mL/hr | | | Administer over 2 Hours, ONCE, | | PM PST | | | | | Fri05/07/17 at 1515, For 1 dose | | | | | | + +---------+ +--------+-------+---+ +---+---+ | | | +---+---+ + +---------+ +---+-------+---+ | sodium chloride 0.9% with KCl | New Bag | 05/07/20 | | 200 | | | 20 mEq/L (NS + KCL 20) infusion | | 17 5:42 | | mL/hr | | | at 200 mL/hr, Intravenous, | | PM PST | | | | | CONTINUOUS, Starting 05/07/17 | | | | | | | at 1640 | | | | | | + +---------+ +---+-------+---+ +---+---+ | | | +---+---+ documented in this encounter
--- OUTSIDE RECORDS SUMMARY | ~2019-07-04 | XMS | Encounter Summary ---
Demographics + + + | Address | [address] | | | [place] [address] | + + + | Home Phone | | + + + | Preferred Language | Unknown | + + + | Marital Status | Single | + + + | Caodaism Affiliation | 1001 | + + + | Race | Unknown | + + + | Ethnic Group | Unknown | + + + Author + + + | Author | [facility] | | | and Ryana | + + + | Organization | [facility] | | [...] Team Providers + +------+ + | Care Motorcycle Subassembly Repairer Name | Role | Phone | + +------+ + | Shavon Covington | PCP | | + +------+ + Reason for Visit + + + | Reason | Comments | + + + | Diabetes Education | | + + + Encounter Details +--------+ + + + + | Date | Type | Department | Care Team | Description | +--------+ + + + + | 09/27/ | Education | [facility] | Ursula Haskins RN | Diabetic | | 2017 | | [facility] | [phone] | ketoacidosis without | | | | EDUCATION [address] | | coma associated | | | | [place], | | with type 1 diabetes | | | | [place] [address] | | mellitus (HCC) | | | | [phone] | | (Primary Dx) | +--------+ + + + + Social [...] documented as of this encounter Progress Notes Ursula Haskins RN - 09/27/2016 12:08 PM PDTPlease see inpatient consult completed today documented in this enco unter Plan of Treatment Not on filedocumented as of this encounter Visit Diagnoses + + | Diagnosis | + + | Diabetic ketoacidosis without coma associated with type 1 diabetes mellitus (HCC) - | | Primary | + + documented in this encounter"
--- OUTSIDE RECORDS SUMMARY | ~2019-07-04 | XMS | Encounter Summary ---
Demographics + + + | Address | [address] | | | [place] [address] | + + + | Home Phone | | + + + | Preferred Language | Unknown | + + + | Marital Status | Single | + + + | Baptist Affiliation | 1001 | + + + | Race | Unknown | + + + | Ethnic Group | Unknown | + + + Author + + + | Author | [facility] | | | and Ryana | + + + | Organization | [facility] | | | [...] Team Providers + +------+ + | Care Gold Nib Grinder Name | Role | Phone | + +------+ + | Shavon Covington | PCP | | + +------+ + Reason for Visit +--------+ + | Reason | Comments | +--------+ + | Nausea | | +--------+ + | Emesis | | [...] + + + + | 05/07/ | Emergency | [facility] | Adi Castro | Vomiting, | | 2017 | | [facility] | Alexander Craig MD | intractability of | | | | CENTER [address] | [address] | vomiting not | | | | [place], [place] | [place], [place] | specified, presence | | | | [address] | [id number] | of nausea not | | | | [phone] | | specified, | | | | | | unspecified vomiting | | | | | | type (Primary Dx) | +--------+ + + + [...] + + + | Blood Pressure | 112/70 | 05/07/2017 7:24 AM | | | | | PST | | + + + + + | Pulse | 80 | 05/07/2017 7:24 AM | | | | | PST | | + + + + + | Temperature | 35.8 C (96.4 F) | 05/07/2017 7:24 AM | | | | | PST | | + + + + + | Respiratory Rate | 14 | 05/07/2017 7:24 AM | | | | | PST | | + + + + + | Oxygen Saturation | 99% | 05/07/2017 7:24 AM | | | | | PST | | + + + + + | Inhaled Oxygen | - | - | | | Concentration | | | | + + + + + | Weight | 61.2 kg (135 lb) | 05/07/2017 7:24 AM | | | | | PST | | + + + + + | Height | 177.8 cm (5' 10") | 05/07/2017 7:24 AM | | | | | PST | | + + + + + | Body Mass Index | 19.37 | 05/07/2017 7:24 AM | | | | | PST [...] | 0 | 05/03/20 | | | (LANAGUSTINA SOLOSTAR) | under the skin every | [...] INFORMATION | KELLY | Routin | | 05/07/2017 7:20 AM | | EXCHANGE | | e | | PST | + +------+--------+ + + documented as of this encounter Procedures + +--------+ + + + | Procedure Name | Priori | Date/Time | Associated Diagnosis | Comments | | | ty | | | | + +--------+ + + + | ED INFORMATION | Routin | 05/07/2017 | | | | EXCHANGE | e | 7:20 AM | | | | | | PST | | | + +--------+ + + + +---+--------+ | | | | | Proced | | | ure | | | Note - | | | Scottie, | | | Lab In | | | | | | Hlseve | | | n - | | | 05/07/ | | | 2016 | | | 7:20 | | | AM PST | | | | | | [...] | | | 7 | | | 07:19? | | | VU | | | , | | | BENJAM | | | [place] | | | J?MRN: | | | | | | [id number] | | | [id number] | | | his | | | [...] | | | St. | | | [place] | | | y | | | [...] | | | St. | | | [place] | | | y | | | [...] | | int | | | Nov | | | 15, | | | 2017 | | | Provid | | | ence | | | [facility] | | | [facility] | | [place] | | | [place] | | | Emerge | | | ncy | | | Emerge | | | ncy | | | | | | Vomiti | | | ng | | | Nov 9, | | | 2017 | | | Provid | | | ence | | | [facility] | | | [facility] | | [place] | | | [place] | | | Emerge | | | ncy | | | Emerge | | | ncy | | | | | | Emesis | | | | | | Nausea | | | | | | Type 1 | | | | | | diabet | | | es | | | mellit | | | us | | | with | | | ketoac | | | idosis | | | | | | withou | | | t coma | | | Oct | | | [...] | | | St[facility] | | | [place] | | | y H. | | [...] | | | [facility] | | | [place] | | | y H. | | [...] | | | [facility] | | | [place] | | | y H. | | [...] | | | [facility] | | | [place] | | | y H. | | [...] | | | [facility] | | | [place] | | | y H[facility] | | [...] | | | Center | | | 9 0 | | | [facility] [place] | | | y | | | Hospit | | | al 11 | | | 0 | | | Total | | | 20 0 | | | Note: | | [...] | | | [place] | | | Surgic | | | al | | | Servic | | | es | | | Inpati | | | ent | | | Type | | | 1 | | | diabet | | | es | | | mellit | | | us | | | with | | | ketoac | | | idosis | | | | | | withou | | | t coma | | | [!] | | | Patien | | | [...] | | | ext. | | | [phone] | | | or go | | [...] | | +---+--------+ documented in this encounter Visit Diagnoses + + | Diagnosis | + + | Vomiting, intractability of vomiting not specified, presence of nausea not specified, | | unspecified vomiting type - Primary | + + documented in this encounter
--- OUTSIDE RECORDS SUMMARY | ~2019-07-04 | XMS | Encounter Summary ---
Demographics + + + | Address | [address] | | | [place] [address] | + + + | Home Phone | | + + + | Preferred Language | Unknown | + + + | Marital Status | Single | + + + | Worship Affiliation | 1001 | + + + | Race | Unknown | + + + | Ethnic Group | Unknown | + + + Author + + + | Author | [facility] | | | and Ryana | + + + | Organization | [facility] | | [...] Team Providers + +------+ + | Care Clip Bolter And Wrapper Name | Role | Phone | + [...] | | | | | | | ([facility], [facility]IN [facility]) | | | +--------+--------+ + + + + Encounter Details +--------+ + + + + | Date | Type | Department | Care Team | Description | +--------+ + + + + | 05/01/ | Hospital | [facility] | Venkatesh Gomez, | Diabetic | | 2017 - | Encounter | MED CTR SURGICAL | [address] | ketoacidosis without | | | | [address] [place] | [facility] [place] | coma associated | | 05/03/ | | [place] [address] | [place] [address] | with type 1 diabetes | | 2016 | | [phone] | [phone] | mellitus (HCC) | | | | | | (Primary Dx) | | | | | Juanjose Ross MD | | | | | | [address] | | | | | | [place], [place] | | | | | | [address] | | | | | | | | | | | | Kevin Gifford MD | | | | | | [address] | | | | | | [place], [place] | | | | | | [address] | | | | | | | [...] might be different fro m the original. [place], [place] HOSPITALIST DISCHARGE SUMMARY Pt. Name/Age/: Joni [...] and when to take each. aka: humaLOG KWIKPEN Unchanged Medications Details albuterol 90 mcg/puff inhaler [...] [facility] has haydee garcia living at [facility] past month and not have his glucometer [...] Problems Diagnosis No resolved problems to display. (timothy meyaddendum tdnorefesh nownorefresh) (timothy meyvent) (timothy santana is attestation for malnutrition) Plan Changed regimen to match what he says at home He says has pens of each insulin (and vials) Has new glucometer (Contour Next) and will need needles for his pens uses [facility] will hav e RN also give needles and pens used here (at least 50 needles) LIves at [facility] Most recent weight: Input and output [...] signed by: Kevin Gifford MD, 05/03/2017 11:48 [facility] Reference. This is NOT part of the [...] is improved today with resolution of symptoms 24 Worse with recurrence of symptoms requiring further testing Portions of this chart may have been created with Sembraire voice recognition software. Occasi onal wrong-word or sound-alike substitutions may have occurred due to the inherent ernee itations of voice recognition software. Please read [...] call your PCP for fine tunin g AttachmentsThe following attachments cannot be sent through Care Everywhere.Diabetes, Diet ([place] Islander)Diabetes, General Information ([place] Islander)Diabetes, Healthy Meals for ([place] Islander)Diabete s, Meal Planning ([place] Islander)Diabetes: Shopping for and Preparing Meals ([place] Islander)documented in this encounter Medications at Time of [...] 05/03/20 | | | Compound Builder | Humalog Marilynikpen and | Device | | 17 | [...] 0 | 05/03/20 | | | (HUMALOG TOBIPEN) | the skin 3 times | | [...] might be different fro m the original. [facility] [place]OS[place]ITAL[place] PROGRESS NOTE Patient: Joni Kwon : 1980: Age: 36 y.o. MedRec: [id number] PCP: DENIS Paul Admission date: 05/01/2017 Hospital [...] St gary Ross MD 2.5 mg at 05/02/17 1955 dextrose 50% injection 12.5 g 12.5 g [...] Data Hematology and anemia Recent Labs Lab 05/03/17 0645 05/02/17 0355 05/01/17 2257 WBC 5.2 7.3 5.3 HGB 13.8 13.4* 15.4 HCT 37.5* 36.3* 44.8 PLT 218 230 259 NEUPCT -- -- 63.3 MONPCT -- -- 9.6 No results for input(s): PROTIME, INR, PTT in the last 168 hours. No results for input(s): IRON, TIBC, PCTSAT, FERRITIN, TSH, [id number], FOLATE in the last 168 hours. Inflammatory markers No results for input(s): LACTATE, PROCALCITONI, CRP, ESR in the last 168 hours. Chemistry Recent Labs Lab 05/03/17 0645 05/02/17 0355 05/02/17 0207 05/01/17 2257 GLU 177* 159* 370* 986* NA 135* [...] Invalid input(s): CKTOTAL ABG Recent Labs Lab 05/01/172346 BEART -3.0* Recent Labs Lab 05/01/172346 SPECSOURCE Vein PHPOCB 7.377 PCO2 37.1 PO2 57.1* HCO3 21.8 TCO2 22.9 BEART -3.0* [id number] 89* Drug of overdose and abuse Recent [...] Procedure Component Value Units Date/Time Culture, MRSA [[id number]] Collected: 05/02/17 0202 Order Status: Completed Lab Status: Final result Updated: 05/03/17804 Specimen: Respiratory from Nares Culture Negative for [...] [facility] has haydee garcia living at [facility] past month and not have his glucometer [...] for his pens uses [facility] will serg e RN also give needles and pens used here (at least 50 needles) LIves at [facility] (dot meyaddendum tdnorefesh nownorefresh) (timothy meytime meycritical meysign) Kevin Gifford MD 05/03/2017 11:27 [facility] Reference. This is NOT part of the [...] this chart may have been created with Sembraire voice recognition software. Occasi onal wrong-word or sound-alike substitutions may have occurred due to the inherent renee itations of voice recognition software. 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 MedRec: [id number] PCP: DENIS Paul Admission date: 05/01/2017 Hospital [...] Data Hematology and anemia Recent Labs Lab 05/02/17 0355 05/01/17 2257 WBC 7.3 5.3 HGB 13.4* 15.4 HCT 36.3* 44.8 PLT 230 259 NEUPCT -- 63.3 MONPCT -- 9.6 No results for input(s): PROTIME, INR, PTT in the last 168 hours. No results for input(s): IRON, TIBC, PCTSAT, FERRITIN, TSH, [id number], FOLATE in the last 168 hours. Inflammatory markers No results for input(s): LACTATE, PROCALCITONI, CRP, ESR in the last 168 hours. Chemistry Recent Labs Lab 05/02/17 0355 05/02/17 0207 05/01/17 2257 GLU 159* 370* 986* NA 140 132* [...] AST -- -- 50* Recent Labs Lab 05/01/17 2257 MG 2.2 No results for input(s): AMYLASE, [...] 57.1* HCO3 21.8 TCO2 22.9 BEART -3.0* [id number] 89* Drug of overdose and abuse Recent [...] Procedure Component Value Units Date/Time Culture, MRSA [[id number]] Collected: 05/02/17 020 Order Status: Sent Lab Status: In process [...] [facility] has b eetyler living [facility] past month and not have his glucometer [...] his pens uses [facility] LIves at [facility] (dot meyaddendum tdnorefesh nownorefresh) (dot meytime meycritical meysign) Kevin Gifford MD 05/02/2017 6:48 [facility] Reference. This is NOT part of the patient's formal assessment section. In the assessment or plan section of notes the author may date some of the subsections with a number such as "" or "" to indicate the date of that entry or event. In the example below the 1st line is the original entry and the subsequent lines indicate flowing updates to the subsection: Example assessment subsection (such as CHF or CP or Pneumonia) Patient is improved today with resolution of symptoms Worse with recurrence of symptoms requiring further testing Portions of this chart may have been created with [employer] recognition software. Occasi onal wrong-word or sound-alike substitutions may have occurred due to the inherent renee itations of voice recognition software. Please read the chart carefully and recognize, using context, where these substitutions have occurred documented in this en counter Plan of [...] - | | | | | | 2017 | | | 10:51 | | | [...] | | | FICATI | | | ON?11/ | | | 09/201 | | | 7 | | | 22:47? | | | VU | | | , | | | BENJAM | | | IN | | | J?MRN: | | | | | | [id number] | | | [id number] | | | his | | | [...] | | | St. | | | [place] | | | y | | | [...] | | | St. | | | [place] | | | y | | | [...] | | | St. | | | [place] | | | y H. | | [...] | | | St. | | | [place] | | | y H. | | [...] | | | St. | | | [place] | | | y H. | | [...] | | | St. | | | [place] | | | y H. | | [...] | | | St. | | | [place] | | | y H. | | [...] | | | St. | | | [place] | | | y | | | [...] | | | ext. | | | [phone] | | | or go | | [...] + | [facility] | [address] | [place] | [phone] | | [facility] | | [address] | | | - LABORATORY | | | | + + + + + CBC no Differential (05/03/2017 6:45 AM PST) + + + + + + | Component | Value | Ref Range | Performed | Pathologist | | | | | At | Signature | + + + + + + | WBC | 5.2 | 4.0 - 11.0 K/uL | [facility] | | | | | | [facility] [...] ST. | [address] | [place] | [phone] | | [facility] | | [address] | | | - LABORATORY | | [...] 8 | 7 - 18 mg/dL | [facility] | | | | | | [facility] | | | | | | MEDICAL | | | | | | CENTER - | | | | | | LABORATORY | | + + + + + + | Creatinine | 0.71 | 0.60 - 1.30 | [facility] | | | | | mg/dL | [facility] | | | | | | MEDICAL | | | | | | CENTER - | | | | | | LABORATORY | | + + + + + + | eGFR if not | >60Comment: GLOMERULAR | >=60 | [facility] | | | | FILTRATION | mL/min/1.73m2 | [facility] | | | [place] | RATE,ESTIMATED | | MEDICAL | | | | mL/min/1.36x1Uvzw than | | CENTER - | | [...] + | [facility] | [address] | [place] | [phone] | | [facility] | | [address] | | | - LABORATORY | | [...] + | [facility] | [address] | [place] | [phone] | | [facility] | | [address] | | | - LABORATORY | | [...] | [address] | [place] | [phone] | | [facility] | | [address] | | | - LABORATORY | | [...] + | [facility] | [address] | [place] | [phone] | | [facility] | | [address] | | | - LABORATORY | | [...] | | POC | | | [facility] | | [...] [address] | [place] | [phone] | | [facility] | | [address] | | | - LABORATORY | | [...] [address] | [place] | [phone] | | [facility] | | [address] | | | - LABORATORY | | [...] | | POC | | | [facility] | | [...] + | [facility] | [address] | [place] | [phone] | | [facility] | | [address] | | | - LABORATORY | | | | + + + + + CBC no Differential (05/02/2017 3:55 AM PST) + + + + + + | Component | Value | Ref Range | Performed | Pathologist | | | | | At | Signature | + + + + + + | WBC | 7.3 | 4.0 - 11.0 K/uL | [facility] | | | | | [facility] | | | | | | MEDICAL | | | | | | CENTER - | | | | | | LABORATORY | | + + + + + + | RBC | 4.06 (L) | 4.30 - 5.70 [...] [address] | [place] | [phone] | | [facility] | | [address] | | | - LABORATORY | | [...] | | | FILTRATION | mL/min/1.73m2 | [facility] | | | [place] | RATE,ESTIMATED | | MEDICAL | | | | mL/min/1.38g9Wpaa than | | CENTER - | | [...] | | | | | mg/dL | [facility] | | | | | [...] [address] | [place] | [phone] | | [facility] | | [address] | | | - LABORATORY | | [...] [address] | [place] | [phone] | | [facility] | | [address] | | | - LABORATORY | | [...] [address] | [place] | [phone] | | [facility] | | [address] | | | - LABORATORY | | [...] | | POC | | | [facility] | | [...] + | [facility] | [address] | [place] | [phone] | | [facility] | | [address] | | | - LABORATORY | | [...] + | [facility] | [address] | [place] | [phone] | | [facility] | | [address] | | | - LABORATORY | | [...] [facility] | | | | | | [facility] | | | | | | MEDICAL | | | | | | CENTER - | | | | | | LABORATORY | | + + + + + + | BUN | 16 | 7 - 18 mg/dL | [facility] | | | | | | [facility] | | | | | | MEDICAL | | | | | | CENTER - | | | | | | LABORATORY | | + + + + + + | Creatinine | 1.08 | 0.60 - 1.30 | [facility] | [...] mL/min/1.73m2 | [facility] | | | [place] | RATE,ESTIMATED | | MEDICAL | | | | mL/min/1.07v9Jlnn than | | CENTER - | | [...] ST. | [address] | [place], [place] | [phone] | | [facility] | | [address] | | | - LABORATORY | | | | + + + + + Culture, MRSA (05/02/2017 2:02 AM PST) + + + + + + | Component | Value | Ref Range | Performed | Pathologist | | | | | At | Signature | + + + + + + | Culture | Negative for MRSA by | | [facility] | | | | chromogenic agar method | | [facility] | | | [...] [address] | [place] | [phone] | | [facility] | | [address] | | | - LABORATORY | | | | + + + + + POC Glucose (05/02/2017 12:48 AM PST) + + + + + + | Component | Value | Ref Range | Performed | Pathologist | | | | | At | Signature | + + + + + + | Glucose, | >600 (HH) | 70 - 109 mg/dL | [facility] [...] + | [facility] | [address] | [place] | [phone] | | [facility] | | [address] | | | - LABORATORY | | [...] | | Screen, | | | [facility] | | | Urine | | | MEDICAL | | | | | | CENTER - | | | | | | LABORATORY | | + + + + + + | Methadone | Negative | Negative | [facility] | | | Screen, | | | [facility] | | | Urine | | | MEDICAL | | | | | | CENTER - | | | | | | LABORATORY | | + + + + + + | Opiates | Negative | Negative | [facility] | | | Screen, | | | [facility] | | | Urine | | | [...] [address] | [place] | [phone] | | [facility] | | [address] | | | - LABORATORY | | [...] | Urine | | Yellow, Straw | [facility] | | | | | | MEDICAL | | | | | | CENTER - | | | | | | LABORATORY | | + + + + + + | Clarity | Clear | Clear | [facility] | | | | | [...] - 1.030 | [facility] | | | [place] | | | [facility] | | [...] + + + + + | WBC UA | 0-2 | 0 - 2 /HPF | [facility] | | | | | | [facility] | | | | | | MEDICAL | | | | | | CENTER - | | | | | | LABORATORY | | + + + + + + | RBC UA | 0-2 | 0 - 2 /HPF | [facility] | | | | | | [facility] | | | | | | MEDICAL | | | | | | CENTER - | | | | | | LABORATORY | | + + + + + + | SQUAMOUS | 0-2 | 0 - 2 /LPF | [facility] | | | EPITHELIAL | | | [facility] | | | UA | | | MEDICAL | | | | | | CENTER - | | | | | | LABORATORY | | + + + + + + | BACTERIA UA | Negative | Negative /HPF | [facility] | | | | | [...] [address] | [place] | [phone] | | [facility] | | [address] | | | - LABORATORY | | [...] [address] | [place] | [phone] | | [facility] | | [address] | | | - LABORATORY | | [...] | | SERUM/PLASM | | | [facility] | | | A | | | [...] + | [facility] | [address] | [place] | [phone] | | [facility] | | [address] | | | - LABORATORY | | | | + + + + + Beta Hydroxybutyrate, Quant (05/01/2017 10:57 PM PST) + + + + + + | Component | Value | Ref Range | Performed | Pathologist | | | | | At | Signature | + + + + + + | Beta | 5.03 (H) | 0.02 - 0.27 | [facility] | | | Hydroxybuty | | mmol/L | [facility] | | | rate | | | MEDICAL | | | | | | CENTER - | | | | | | LABORATORY | | + + + + + + + + | Specimen | + + | Blood | + + + + + + + | Performing | Address | City/State[facility] | Phone Number | | Organization | | | | + + + + + | [facility] | [address] | [place] | [phone] | | [facility] | | [address] | | | - LABORATORY | | | | + + + + + Magnesium (05/01/2017 10:57 PM PST) + +-------+ + + + | Component | Value | Ref Range | Performed | Pathologist | | | | | At | Signature | + +-------+ + + + | Magnesium | 2.2 | 1.8 - 2.5 mg/dL | [facility] | | | | [...] + + + + + | [facility] | [address] | [place] | [phone] | | [facility] | | [address] | | | - LABORATORY | | [...] | 4.7 | 3.5 - 5.1 | [facility] | | | | | mmol/L | [...] | MEDICAL | | | | Lila Bailey on 05/01/2017 | | CENTER - | | | | at 23:32 by Karthik Vyas | | LABORATORY | | | | [place]. | | | | + + + [...] | 1.25 | 0.60 - 1.30 | [facility] | [...] | | FILTRATION | mL/min/1.73m2 | [facility] | | | [place] | RATE,ESTIMATED | | MEDICAL | | | | mL/min/1.52a9Ldzl than | | CENTER - | | [...] | 9.4 | 8.3 - 10.5 | [facility] | | | | | mg/dL | [facility] | | | | | | MEDICAL | | | | | | CENTER - | | | | | | LABORATORY | | + + + + + + | Albumin | 3.9 | 3.2 - 5.0 g/dL | [facility] | | | | | [...] [address] | [place] | [phone] | | [facility] | | [address] | | | - LABORATORY | | | | + + + + + CBC with Differential (05/01/2017 10:57 PM PST) + +-------+ + + + | Component | Value | Ref Range | Performed | Pathologist | | | | | At | Signature | + +-------+ + + + | WBC | 5.3 | 4.0 - 11.0 K/uL | [facility] | | | | | | [facility] | | | | | | MEDICAL | | | | | | CENTER - | | | | | | LABORATORY | | + +-------+ + + + | RBC | 4.73 | 4.30 - 5.70 | [...] | | Lymphocytes | | K/uL | [facility] | | | | | | MEDICAL | | | | | | CENTER - | | | | | | LABORATORY | | + +-------+ + + + | Absolute | 0.50 | 0.00 - 1.00 | [facility] | | | Monocytes | | K/uL | . [facility] | | | | | | [...] | | Basophils | | K/uL | [facility] | | | | | [...] [address] | [place] | [phone] | | [facility] | | [address] | | | - LABORATORY | | [...] + + | [facility] | [address] | [place] | [phone] | | [facility] | | [address] | | | - LABORATORY | | [...] | | | | | | Starting 05/02/17 at 0156, RT | | | | [...] 4 Units | | Arm-Righ | | KWIKPEN) [...] | | | | | | | 2884-8449 Use NIGHT DOSE for | | | | | | | doses scheduled: HS, 3AM, | | | | | | | Nighttime 5487-9652, | | | | | | + [...] | | | | | Fri05/02/17 at 2215, CORRECTION | | | | [...] | | | | | | | 9886-5298 Use NIGHT DOSE for | | | | | | | doses scheduled: HS, 3AM, | | | | | | | Nighttime 5037-5494, | | | | | | + [...] | | | | | NPO, Daytime 2240-0666 Use NIGHT | | | | | | | DOSE for doses scheduled: | | | | | | | HS, 3AM, Nighttime 1026-7051, | | | | | | + [...] | | | | | | | AUG) and Insulin Infusion | | | | [...] | | | | | | Starting 05/02/17 at 0200, | | | | [...] PST | | | | | Starting [facility] 05/01/17 at 2254, For | | | [...] PM PST | | | | | [facility] 05/01/17 at 2300, For 1 dose | [...]
--- OUTSIDE RECORDS SUMMARY | ~2019-07-04 | XMS | Encounter Summary ---
Demographics + + + | Address | [address] | | | [place] [address] | + + + | Home Phone | | + + + | Preferred Language | Unknown | + + + | Marital Status | Single | + + + | Restoration Affiliation | 1001 | + + + | Race | Unknown | + + + | Ethnic Group | Unknown | + + + Author + + + | Author | [facility] | | | and Ryana | + + + | Organization | [facility] | | | [...] Providers + +------+ + | Care Labor Supervisor Name | Role | Phone | [...] | | | | | | | ([facility]) | | | | | [...] | | | | | | | ([facility]) | | | +--------+--------+ + + + + Encounter Details +--------+ + + + + | Date | Type | Department | Care Team | Description | +--------+ + + + + | 06/20/ | Hospital | [facility] | ColemanSunilmelani Condon, | Diabetic | | 2016 - | Encounter | MED CTR ICU [address] | [address] | ketoacidosis without | | | | [place], | [place], [place] | coma associated | | 06/21/ | | [place] [address] | [address] | with other specified | | 2015 | | [phone] | | diabetes mellitus | | | | | Kevin Gifford MD | ([facility]) (Primary Dx); | | | | | [address] | Diabetic | | | | | [place], [place] | ketoacidosis without | | | | | [address] | coma associated | | | | | | with type 1 diabetes | | | | | | mellitus ([facility]) | +--------+ + + + [...] days. 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 What changed: Another medication with the same name was removed. Continue taking this medi cation, and follow the directions you see here. aka: LANTUS Unchanged Medications Details aspirin 81 mg chewable tablet Take 81 mg by mouth Daily. FK-Edbzitjxbnqzh-Xjeggqbiwztat 10-5-325 MG Caps Take 1 capsule by [...] | | 0 | | | | FG-Bptrtsxglzktt-Hha | mouth Daily as | | | [...] of this encounter Progress Notes Ayala Han, [facility] - 06/20/2016 9:53 PM PSTFormatting of this note might be different fro m the original. PHARMACY SERVICES: ADMISSION MEDICATION REVIEW Joni Kwon is a 35 y.o. male admitted on 06/20/2016. Patient is not a reliable historian. Patient preferred pharmacies closed. Med history techn rose will call 06/21/2016 @ 5828 to obtain current medication list and update RADIOLOGY EQUIPMENT SERVICER medicatio ns as necessary. Location of Patient when reviewed: [x] ED [] Medical Floor Patient s prior to admit medication and over the counter (OTC) medications/herbal supplem ents list obtained from: [x] Verbal interview (patient is able to recall drug name, strength, frequency, etc.) [] Patient/family member provided a complete current medication list or bottles [] MAR from SNF facility: [] Doctor's office: [] Pharmacy list names: [] [employer] insurance reported information [] Care Everywhere [] Other sources: Vaccines up to date? Yes No Unsure Influenza [] [x] [] Pneumococcal [] [x] [] Tdap [] [x] [] Shingles [] [x] [] Noted medications discrepancies or medication-related issues: Dosage change: Medication: Prior to Admission Sig: Patient taking differently RADIOLOGY EQUIPMENT SERVICER as: Insulin Glargine 100 u/ml 15 units nightly 9 units in the morning and 6 units in the evenin g Medication added: Medication: Prior to Admission Sig: XI-Kobhwzkmbvwmj-Iivczfrdavwae 10-5-325 mg 1 cap daily as needed for sinus congestion Medication review performed and electronically signed by Luis Araujo [employer] Teacher 06/20 21:44 Reviewed by Ayala Han [facility] 06/20/2016 21:53 documented in this en counter Plan of Treatment Not on filedocumented as [...] (H) | 70 - 150 mg/dL | [facility] | | | POC [...] [address] | [place] | [phone] | | [facility] | | [address] | | | - LABORATORY | | [...] 10 | 7 - 18 mg/dL | [facility] | | | | | | [facility] | | | | | | MEDICAL | | | | | | CENTER - | | | | | | LABORATORY | | + + + + + + | Creatinine | 0.65 | 0.60 - 1.30 | [facility] | | | | | mg/dL | [facility] | | | | | | MEDICAL | | | | | | CENTER - | | | | | | LABORATORY | | + + + + + + | eGFR if not | >60Comment: GLOMERULAR | >=60 | [facility] | | | | FILTRATION | mL/min/1.73m2 | [facility] | | | [place] | RATE,ESTIMATED | | MEDICAL | | | | mL/min/1.25l3Mezg than | | CENTER - | | [...] + | [facility] | [address] | [place] | [phone] | | [facility] | | [address] | | | - LABORATORY | | [...] ST. | [address] | [place], [place] | [phone] | | [facility] | | [address] | | | - LABORATORY | | [...] | | | FILTRATION | mL/min/1.73m2 | [facility] | | | [place] | RATE,ESTIMATED | | MEDICAL | | | | mL/min/1.49c3Hqhb than | | CENTER - | | [...] | | | | | mg/dL | [facility] | | | | | | MEDICAL [...] | [address] | [place] | [phone] | | [facility] | | [address] | | | - LABORATORY | | [...] [address] | [place] | [phone] | | [facility] | | [address] | | | - LABORATORY | | [...] ST. | [address] | [place], [place] | [phone] | | [facility] | | [address] | | | - LABORATORY | | | | + + + + + Extra Lavender Top Tube (06/21/2016 4:02 AM PST) + +-------+ + + + | Component | Value | Ref Range | Performed | Pathologist | | | | | At | Signature | + +-------+ + + + | Extra | Done | | [facility] | | | Lavender | | | [facility] | | | Top Tube | | [...] [address] | [place] | [phone] | | [facility] | | [address] | | | - LABORATORY | | [...] 14 | 7 - 18 mg/dL | [facility] | | | | | | [facility] | | | | | | MEDICAL | | | | | | CENTER - | | | | | | LABORATORY | | + + + + + + | Creatinine | 0.74 | 0.60 - 1.30 | [facility] | | | | | mg/dL | [facility] | | | | | | MEDICAL | | | | | | CENTER - | | | | | | LABORATORY | | + + + + + + | eGFR if not | >60Comment: GLOMERULAR | >=60 | [facility] | | | | FILTRATION | mL/min/1.73m2 | [facility] | | | [place] | RATE,ESTIMATED | | MEDICAL | | | | mL/min/1.38c2Xvrh than | | CENTER - | | [...] ST. | [address] | [place], [place] | [phone] | | [facility] | | [address] | | | - LABORATORY | | [...] [address] | [place] | [phone] | | [facility] | | [address] | | | - LABORATORY | | [...] + | [facility] | [address] | [place] | [phone] | | [facility] | | [address] | | | - LABORATORY | | [...] + | [facility] | [address] | [place] | [phone] | | [facility] | | [address] | | | - LABORATORY | | | | + + + + + POC Glucose (06/21/2016 12:18 AM PST) + +-------+ + + + | Component | Value | Ref Range | Performed | Pathologist | | | | | At | Signature | + +-------+ + + + | Glucose, | 79 | 70 - 150 mg/dL | [facility] [...] [address] | [place] | [phone] | | [facility] | | [address] | | | - LABORATORY | | [...] | | | | mmol/L | [facility] | | | | [...] 12 | 7 - 18 mg/dL | [facility] | | | | | | [facility] | | | | | | MEDICAL | | | | | | CENTER - | | | | | | LABORATORY | | + + + + + + | Creatinine | 0.64 | 0.60 - 1.30 | [facility] | | | | | mg/dL | [facility] | | | | | | MEDICAL | | | | | | CENTER - | | | | | | LABORATORY | | + + + + + + | eGFR if not | >60Comment: GLOMERULAR | >=60 | [facility] | | | | FILTRATION | mL/min/1.73m2 | [facility] | | | [place] | RATE,ESTIMATED | | MEDICAL | | | | mL/min/1.01z3Jzdv than | | CENTER - | | [...] + | [facility] | [address] | [place] | [phone] | | [facility] | | [address] | | | - LABORATORY | | [...] Urine | | Yellow, Straw | [facility] | | | | | [...] - 1.030 | [facility] | | | [place] | | | [facility] | | [...] | | EPITHELIAL | | | [facility] | | | UA | | | [...] + + + + + + | URINE | Urine Culture Not | | [facility] | | | COMMENT | Indicated | | [facility] | | | [...] [address] | [place] | [phone] | | [facility] | | [address] | | | - LABORATORY | | [...] ST. | [address] | [place], [place] | [phone] | | [facility] | | [address] | | | - LABORATORY | | [...] + | [facility] | [address] | [place] | [phone] | | [facility] | | [address] | | | - LABORATORY | | [...] | | | | | | [employer] | | | | | [...] [address] | [place] | [phone] | | [facility] | | [address] | | | - LABORATORY | | [...] [address] | [place] | [phone] | | [facility] | | [address] | | | - LABORATORY | | | | + + + + + Magnesium (06/20/2016 10:48 PM PST) + +-------+ + + + | Component | Value | Ref Range | Performed | Pathologist | | | | | At | Signature | + +-------+ + + + | Magnesium | 1.8 | 1.8 - 2.5 mg/dL | [facility] | | | | | | [facility] [...] [address] | [place] | [phone] | | [facility] | | [address] | | | - LABORATORY | | [...] not | >60Comment: GLOMERULAR | >=60 | [facility] | | | | FILTRATION | mL/min/1.73m2 | [facility] | | | [place] | RATE,ESTIMATED | | MEDICAL | | | | mL/min/1.80i4Qema than | | CENTER - | | [...] + | [facility] | [address] | [place] | [phone] | | [facility] | | [address] | | | - LABORATORY | | | | + + + + + POC Glucose (06/20/2016 10:43 PM PST) + +---------+ + + + | Component | Value | Ref Range | Performed | Pathologist | | | | | At | Signature | + +---------+ + + + | Glucose, | 154 (H) | 70 - 150 mg/dL | [facility] | | | POC [...] [address] | [place] | [phone] | | [facility] | | [address] | | | - LABORATORY | | [...] + | [facility] | [address] | [place] | [phone] | | [facility] | | [address] | | | - LABORATORY | | [...] | | | | HAWA RUBIN MD ([id number]) | | | | | | on [...] [address] | [place] | [phone] | | [facility] | | [address] | | | - LABORATORY | | [...] + | [facility] | [address] | [place] | [phone] | | [facility] | | [address] | | | - LABORATORY | | [...] | Hydroxybuty | | mmol/L | [facility] | | | rate | | | [...] [address] | [place] | [phone] | | [facility] | | [address] | | | - LABORATORY | | [...] + + + | Glucose | 613 ()Comment: | 70 - 109 mg/dL | [...] | 1.09 | 0.60 - 1.30 | [facility] | | | | | mg/dL | [facility] | | | | | | MEDICAL | | | | | | CENTER - | | | | | | LABORATORY | | + + + + + + | eGFR if not | >60Comment: GLOMERULAR | >=60 | [facility] | | | | FILTRATION | mL/min/1.73m2 | [facility] | | | [place] | RATE,ESTIMATED | | MEDICAL | | | | mL/min/1.43m1Vnaq than | | CENTER - | | [...] | 8.8 | 8.3 - 10.5 | [facility] | | | | | mg/dL | [facility] | | | | | | MEDICAL | | | | | | CENTER - | | | | | | LABORATORY | | + + + + + + | BUN/Creatin | 16.5 | | [facility] | | | ine Ratio | | | [facility] | | | | | | MEDICAL [...] [address] | [place] | [phone] | | [facility] | | [address] | | | - LABORATORY | | | | + + + + + CBC no Differential (06/20/2016 7:25 PM PST) + + + + + + | Component | Value | Ref Range | Performed | Pathologist | | | | | At | Signature | + + + + + + | WBC | 4.4 | 4.0 - 11.0 K/uL | [facility] | | | | | | [facility] | | | | | | MEDICAL | | | | | | CENTER - | | | | | | LABORATORY | | + + + + + + | RBC | 3.65 (L) | 4.30 - 5.70 | [facility] | | | | | M/uL | [facility] | | | | | | MEDICAL [...] [address] | [place] | [phone] | | [facility] | | [address] | | | - LABORATORY | | [...] [address] | [place] | [phone] | | [facility] | | [address] | | | - LABORATORY | | [...] + | [facility] | [address] | [place] | [phone] | | [facility] | | [address] | | | - LABORATORY | | [...] [address] | [place] | [phone] | | [facility] | | [address] | | | - LABORATORY | | [...] | | Top Tube | | | [facility] | | | [...] ST. | [address] | [place], [place] | [phone] | | [facility] | | [address] | | | - LABORATORY | | | | + + + + + POC Glucose (06/20/2016 7:17 PM PST) + + + + + + | Component | Value | Ref Range | Performed | Pathologist | | | | | At | Signature | + + + + + + | Glucose, | >600 (HH) | 70 - 150 mg/dL | [facility] [...] + | [facility] | [address] | [place] | [phone] | | [facility] | | [address] | | | - LABORATORY | | [...] | acetaminophen (TYLENOL) tablet | Given | 12/30/20 | 650 mg | | | | [...] | | | PT's OWN MED. In [facility] patient | | | | | | | specific bin. RETURN TO PATIENT | | | | | | | AT DISCHARGE. Verified by | | | | | | | Pharmacist Lupe Tilley, [facility] | | | | | [...] | | | | | Intravenous, ONCE, [facility] 06/20/16 | | PM PST | | [...] | | | | | NPO, Daytime 0560-3107 Use NIGHT | | | | | | | DOSE for doses scheduled: | | | | | | | HS, 3AM, Nighttime 9737-8005, | | | | | | + [...] | | | | | | Starting Kailey 06/20/16 at 1940 | | | | [...] PST | | | | | ONCE, [facility] 06/20/16 at 1940, For 1 | | [...] +---+-------+---+ +---------+ +---+-------+---+ | New Bag | 06/21/20 | | 125 | | | | 16 12:25 | | mL/hr | | | | AM PST | | | | +---------+ +---+-------+---+ +---+---+ | | | +---+---+ documented in this encounter
--- OUTSIDE RECORDS SUMMARY | ~2019-07-04 | XMS | Encounter Summary ---
Demographics + + + | Address | [address] | | | [place] [address] | + + + | Home Phone | | + + + | Preferred Language | Unknown | + + + | Marital Status | Single | + + + | Islam Affiliation | 1001 | + + + | Race | Unknown | + + + | Ethnic Group | Unknown | + + + Author + + + | Author | [facility] | | | and Ryana | + + + | Organization | [facility] | | | and [...] Team Providers + +------+ + | Care Car Sander Name | Role | Phone | + +------+ + PCP | Unavailable | + +------+ + Encounter Details +--------+ + + + + | Date | Type | Department | Care Team | Description | +--------+ + + + + | 04/06/ | [facility] | PACIFIC | Abhi Berger | | | 2003 | Encounter | FAMILY MEDICINE [address] | MD [address] | | | | | [address] | [place], [place] | | | | | [place] [address] | [address] | | | | | [phone] | | | +--------+ + + + [...]
--- OUTSIDE RECORDS SUMMARY | ~2019-07-04 | XMS | Encounter Summary ---
Demographics + + + | Address | [address] | | | [place] [address] | + + + | Home Phone [...] + + + | Author | [facility] | | | and Ryana | + + + | Organization | [facility] | | | [...] Team Providers + +------+ + | Care Resident Care Assistant Name | Role | Phone | + [...] Provider Unknown | | | | | [place], [place] | | | | | | [address] | (Fax) | | | | | [...]
--- OUTSIDE RECORDS SUMMARY | ~2019-07-04 | XMS | Encounter Summary ---
Demographics + + + | Address | [address] | | | [place] [address] | + + + | Home Phone [...] Author + + + | Author | [facility] | | | and Ryana | + + + | Organization | [facility] | | | [...] Team Providers + +------+ + | Care Shade Matcher Name | Role | Phone | + +------+ + PCP | Unavailable | + +------+ + Encounter Details +--------+ + + + + | Date | Type | Department | Care Team | Description | +--------+ + + + + | 03/11/ | Hospital | [facility] | Shivam Garzon | | | 2003 | Encounter | [facility] | DO [address] | | | | | [facility] [place] | [place], [place] | | | | | [address] | [address] | | | | | [phone] | | | +--------+ + + + [...]
--- OUTSIDE RECORDS SUMMARY | ~2019-07-04 | XMS | Encounter Summary ---
Demographics + + + | Address | [address] | | | [place] [address] | + + + | Home Phone | | + + + | Preferred Language | Unknown | + + + | Marital Status | Single | + + + | Jain Affiliation | 1001 | + + + [...] Team Providers + +------+ + | Care Sleeping Room Cleaner Name | Role | Phone | + +------+ + PCP | Unavailable | + +------+ + Encounter Details +--------+ + + + + | Date | Type | Department | Care Team | Description | +--------+ + + + + | 09/07/ | Hospital | [facility] | Kevin Ricci | | | 1999 - | Encounter | [facility] [address] MD [address] | | | | | [place], [place] | [place], [place] | | | 09/09/ | | [address] | [address] | | | 1999 | | [phone] | | | +--------+ + + + [...]
--- OUTSIDE RECORDS SUMMARY | ~2019-07-04 | XMS | Encounter Summary ---
Demographics + + + | Address | [address] | | | [place] [address] | + + + | Home Phone | | + + + | Preferred Language | Unknown | + + + | Marital Status | Single | + + + | Methodist Affiliation | 1001 | + + + [...] Team Providers + +------+ + | Care Legal Internship Name | Role | Phone | + +------+ + PCP | Unavailable | + +------+ + Encounter Details +--------+ + + + + | Date | Type | Department | Care Team | Description | +--------+ + + + + | 09/07/ | Hospital | [facility] | Kevin Ricci | | | 1999 - | Encounter | H[facility] [address] MD [address] | | | | | [place], [place] | [place], [place] | | | 09/09/ | | [address] | [address] | | | 1999 | | [phone] | | | +--------+ + + + [...]
--- OUTSIDE RECORDS SUMMARY | ~2019-07-04 | XMS | Encounter Summary ---
Demographics + + + | Address | [address] | | | [place] [address] | + + + | Home Phone | | + + + | Preferred Language | Unknown | + + + | Marital Status | Single | + + + | Religion Affiliation | 1001 | + + + [...] Team Providers + +------+ + | Care Concrete Boom Pump Operator Name | Role | Phone | + +------+ + PCP | Unavailable | + +------+ + Encounter Details +--------+ + + + + | Date | Type | Department | Care Team | Description | +--------+ + + + + | 04/21/ | Hospital | [facility] | Abhi Berger | | | 1999 - | Encounter | [address] | MD [address] | | | | | [place], [place] | [place], [place] | | | 04/22/ | | [address] | [address] | | | 1999 | | [phone] | | | +--------+ + + + [...]
--- OUTSIDE RECORDS SUMMARY | ~2019-07-04 | XMS | Clinical Summary ---
Demographics + + + | Address | [address] | | | [place] [address] | + + + | Home Phone | | + + + | Preferred Language | Unknown | + + + | Marital Status | Single | + + + | Christianity Affiliation | 1001 | + + + | Race | Unknown | + + + | Ethnic Group | Unknown | + + + Author + + + | Author | [facility] | | | and Ryana | + + + | Organization | [facility] | | | and [...] Team Providers + +------+ + | Care Health Care Social Worker Name | Role | Phone | + [...] + + | 05/17/ | Hospital | Internal Medicine | Alexis, | Schizophrenia, | | 2019 - | Encounter | | DO Roc Alexander, | unspecified type | | | | | MD Reggie Balderrama, | ([facility]) (Primary Dx); | | 05/21/ | | | CHLOE Smith | Acute psychosis | | 2018 | | | Hosea Watson, | ([facility]); Marijuana | | | | | MD Castillo, | use; Nausea and | | | | | MD Cony | vomiting in adult; | | | | | | Noncompliance with | | | | | | medication regimen; | | | | | | Tobacco smoker | | | | | | within last 12 | | | | | | months; Type 1 | | | | | | diabetes mellitus | | | | | | without complication | | | | | | ([facility]); | | | | | | Schizoaffective | | | | | | disorder, bipolar | | | | | | type ([facility]); Acute | | | | | | hyperkalemia | +--------+ + + + + from [...] Influenza | | 04/23/2011 | | | (#1) | 9 | [...] | | Results for this | | LYNN SHANKS | | 10:58 PM | | procedure [...] ON?/ | | | | | | 9 | | | 21:50? | | | VU | | | , | | | CHRISTELLE | | | IN | | | J?MRN: | | | | | | [id number] | | | [id number] | | | riteri | | | [...] | | | guidel | | | maeyla | | | and | | | [...] | | | [facility] | | [facility] | | | y | | | [...] | | | St[facility] | | | [facility] | | | y | | | [...] | | | [facility] | | | [facility] y | | | Hospit | | | al | | | Patien | | | t is | | | curren | | | tly | | | establ | | | ished | | | with | | | St | | | [facility] | | | y | | | [...] St | | | | | | [facility] | | | y | | | [...] | | | St. | | | [facility] | | | y | | | [...] | | | St[facility] | | [facility] | | | y H. | | [...] | | | St. | | | [facility] | | | y H. | | [...] | | | St[facility] | | [facility] | [facility] | y H. | | [...] | | | St[facility] | | [facility] | y H. | | [...] | | | St[facility] | | | [facility] | [facility] | y H. | | [...] | | | St. | | | [facility] | | | y H. | | [...] | | | MD | | | Quality Review Trainer | | | al | | | [...] | | | [phone] | | | [id number] | | | 95 | | | [...] | +---+--------+ from Last 3 Months Results POC Glucose (05/21/2019 5:36 PM PST)Only the most recent of 38 results within the time per iod is included. + + + + + + | Component | Value | Ref Range | Performed | Pathologist | | | | | At | Signature | + + + + + + | Glucose, | 104 (H)Comment: Testing | 65 - 99 mg/dL | [facility] | | | POC | performed at [facility];[address] | | LABORATORY | | | | [address];[place] | | | | | | [address] | | | | + + + + + + + + | Specimen | + + | | + + + + + + + | Performing | Address | City/State/Zipcode | Phone Number | | Organization | | | | + + + + + | [facility] | [address] | [place] [address] | [phone] | + + + + + Basic Metabolic Panel (05/21/2019 10:59 AM PST)Only the most recent of 5 results within the time period is included. + + + + + + | [...] | | | | | performed at [facility], [address] | | | | | [address], | | | | | | [place] [address] | | | | + + + + + + + + | Specimen | + + | Blood | + + + + + + + | Performing | Address | City/State/Zipcode | Phone Number | | Organization | | | | + + + + + | [facility] | [address] | [place] [address] | [phone] | + + + + + Potassium (05/20/2019 3:58 PM PST) + + + + + + | Component | Value | Ref Range | Performed | Pathologist | | | | | At | Signature | + + + + + + | K | 4.9Comment: Testing | 3.5 - 4.9 | [facility] | | | | performed at [facility];[address] | mmol/L | LABORATORY | | | | [address];[place] | | | | | | [address] | | | | + + + + + + + + | Specimen | + + | Blood | + + + + + + + | Performing | Address | City/State/Zipcode | Phone Number | | Organization | | | | + + + + + | [facility] | [address] | [place] [address] | [phone] | + + + + + ECG [...] | | | + +---------+ + + Glucose, Random (05/19/2019 5:51 PM PST)Only the most recent of 2 results within the time period is included. + + + + + + | Component | Value | Ref Range | Performed | Pathologist | | | | | At | Signature | + + + + + + | Glucose | 421 (H)Comment: Testing | 65 - 99 mg/dL | [facility] | | | | performed at [facility];[address] | | LABORATORY | | | | [address];[place], [place] | | | | | | [address] | | | | + + + + + + + + | Specimen | + + | Blood | + + + + + + + | Performing | Address | City/State/Zipcode | Phone Number | | Organization | | | | + + + + + | [facility] | [address] | [place] [address] | [phone] | + + + + + Hemoglobin A1C (05/19/2019 3:06 PM PST) + + + + + + | Component | Value | Ref Range | Performed | Pathologist | | | | | At | Signature | + + + + + + | Hemoglobin | 10.2 (H)Comment: HbA1c | 4.0 - 6.0 % | [facility] | | | A1c | method is [...] | 246 (H)Comment: | <154 mg/dL | [facility] | | | Average | Estimated Average | | LABORATORY | | | Glucose | Glucose calculated from | | | | | | hemoglobin A1c by use of | | | | | | the ADArecommended | | | | | | formula.Testing | | | | | | performed at [facility], [address] | | | | | | [facility], | | | | | | [place] [address] | | | | + + + + + + + + | Specimen | + + | Blood | + + + + + + + | Performing | Address | City/State/Zipcode | Phone Number | | Organization | | | | + + + + + | [facility] | [address] | [place] [address] | [phone] | + + + + + Blood [...] Comment, | Abdiel Test not | | [facility] | | | POC | indicatedComment: | | LABORATORY | | | | Testing performed at | | | | | | [facility];[address] | [address];[place] [address] | | | | + + + + + + + + | Specimen | + + | | + + + + + + + | Performing | Address | City/State/Zipcode | Phone Number | | Organization | | | | + + + + + | [facility] | [address] | [place] [address] | [phone] | + + + + + Drugs Of Abuse Screen, Urine (H) (05/17/2019 10:58 PM PST) + + + + + + | Component | Value | Ref Range | Performed | Pathologist | | | | | At | Signature | + + + + + + | Amp/Methamp | NEGATIVEComment: | NEG | [facility] | | | hetamine, | Positive cutoff for AMP | | LABORATORY | | | Screen, | = 1000 ng/mL | | | | | Urine | | | | | + + + + + + | Barbiturate | NEGATIVEComment: | NEG | [facility] | | | s Screen, | Positive [...] | | | | | performed at [facility];[address] | | | | | | [address];[place] | | | | | | [address] | | | | + + + + + + + + | Specimen | + + | Urine | + + + + + + + | Performing | Address | City/State/Zipcode | Phone Number | | Organization | | | | + + + + + | [facility] | [address] | [place] [address] | [phone] | + + + + + Ketones, Serum (05/17/2019 10:54 PM PST) + + + + + + | Component | Value | Ref Range | Performed | Pathologist | | | | | At | Signature | + + + + + + | Ketones, | NEGATIVEComment: Testing | NEG | [facility] | | | Blood | performed at [facility];[address] | | LABORATORY | | | | [address];[place] | | | | | | [address] | | | | + + + + + + + + | Specimen | + + | Blood | + + + + + + + | Performing | Address | City/State/Zipcode | Phone Number | | Organization | | | | + + + + + | [facility] | [address] | [place] [address] | [phone] | + + + + + CBC [...] | | | Absolute | performed at [facility];[address] | K/uL | LABORATORY | | | | [address];[place], [place] | | | | | | [address] | | | | + + + + + + + + | Specimen | + + | Blood | + + + + + + + | Performing | Address | City/State/Zipcode | Phone Number | | Organization | | | | + + + + + | [facility] | [address] | [place] [address] | [phone] | + + + + + TSH (05/17/2019 10:54 PM PST) + + + + + + | Component | Value | Ref Range | Performed | Pathologist | | | | | At | Signature | + + + + + + | TSH | 1.314Comment: Testing | 0.450 - 5.100 | [facility] | | | | performed at [facility];[address] | uIU/mL | LABORATORY | | | | [address];[place], [place] | | | | | | [address] | | | | + + + + + + + + | Specimen | + + | Blood | + + + + + + + | Performing | Address | City/State/Zipcode | Phone Number | | Organization | | | | + + + + + | [facility] | [address] | [place] [address] | [phone] | + + + + + Ethanol (05/17/2019 10:54 PM PST) + + + + + + | Component | Value | Ref Range | Performed | Pathologist | | | | | At | Signature | + + + + + + | ALCOHOL, | <10Comment: Testing | <10 mg/dL | [facility] | | | SERUM/PLASM | performed at [facility];[address] | | LABORATORY | | | A | [address];[place], [place] | | | | | | [address] | | | | + + + + + + + + | Specimen | + + | Blood | + + + + + + + | Performing | Address | City/State/Zipcode | Phone Number | | Organization | | | | + + + + + | [facility] | [address] | [place] [address] | [phone] | + + + + + Acetaminophen [...] | | en, S | performed at [facility];[address] | ug/mL | LABORATORY | | | | [address];[place], [place] | | | | | | [address] | | | | + + + + + + + + | Specimen | + + | Blood | + + + + + + + | Performing | Address | City/State/Zipcode | Phone Number | | Organization | | | | + + + + + | [facility] | [address] | [place] [address] | [phone] | + + + + + Salicylate Level (05/17/2019 10:54 PM PST) + + + + + + | Component | Value | Ref Range | Performed | Pathologist | | | | | At | Signature | + + + + + + | Salicylate, | <3.0Comment: Testing | 2.8 - 20.0 | [facility] | | | mg/dL | performed at [facility];[address] | mg/dL | LABORATORY | | | | [address];[place] | | | | | | [address] | | | | + + + + + + + + | Specimen | + + | Blood | + + + + + + + | Performing | Address | City/State/Zipcode | Phone Number | | Organization | | | | + + + + + | [facility] | [address] | [place] [address] | [phone] | + + + + + Comprehensive [...] | | | | | performed at [facility];[address] | | | | | | [address];[place], [place] | | | | | | [address] | | | | + + + + + + + + | Specimen | + + | Blood | + + + + + + + | Performing | Address | City/State/Zipcode | Phone Number | | Organization | | | | + + + + + | [facility] | [address] | [place] [address] | [phone] | + + + + + from [...] | [employer] | [employer] | [id number] | 01/22/20 | [phone] | | Medica | | MEDICAID HMO | HEALTH | | 16-Pre | 1 | | id | | | MDCD | | sent | | | | | | [place] | | | | | | + +--------+ +--------+ +---------+--------+ | [employer] | [employer] | [id number] | 05/17/ | [phone] | | Medica | | MEDICAID HMO [...] Kevin | al/Fam | | 1980 | [id number] | [address] [place], [place] | | | lisa | | | 9 (Home) | [address] | + +--------+ +--------+ + + | Joni Kwon | Person | Self | [birth year] | | [address] | | [place] | al/Fam | | 1981 | [phone] | [address] [place], [place] | | | lisa | | | 9 (Home) | [address] | + +--------+ +--------+ + + | Joni Kwon | Mental | Self | [birth year] | | [address] | | Kevin | | | 1981 | [phone] | [address] [place] | | | Health | | | 9 (Home) | [address] | + +--------+ +--------+ + + Advance Directives + + + + + | Type | Date Recorded | Patient | Explanation | | | | Funnel Setter | | + + + + + | Power of | | | | | Supervising Librarian | | | | + + + [...]
--- OUTSIDE RECORDS SUMMARY | ~2019-07-04 | XMS | Encounter Summary ---
Demographics + + + | Address | [address] | | | [place] [address] | + + + | Home Phone | | + + + | Preferred Language | Unknown | + + + | Marital Status | Single | + + + | Hoahaoism Affiliation | 1001 | + + + | Race | Unknown | + + + | Ethnic Group | Unknown | + + + Author + + + | Author | [facility] | | | and Ryana | + + + | Organization | [facility] | | [...] Team Providers + +------+ + | Care Joint Creaser Name | Role | Phone | + +------+ + PCP | Unavailable | + +------+ + Encounter Details +--------+ + + + + | Date | Type | Department | Care Team | Description | +--------+ + + + + | 12/18/ | Hospital | [facility] | Mohsen Carranza | | | 1999 | Encounter | [facility] [address] MD Need updated | | | | | [place] | address | | | | | [address] | | | | | | [phone] | | | +--------+ + + + [...]
--- OUTSIDE RECORDS SUMMARY | ~2019-07-04 | XMS | Encounter Summary ---
Demographics + + + | Address | [address] | | | [place] [address] | + + + | Home Phone [...] Team Providers + +------+ + | Care Pipe Jeeper Name | Role | Phone | + [...] [place] | | | | | | [place] | | | | | | [address] | | | | | | [phone] | | | +--------+ + + + [...] | [address] | [place] | [phone] | | [facility] | | [address] | | | - LABORATORY | | | | + + + + + documented in this encounter Visit Diagnoses Not on filedocumented in this encounter"
--- OUTSIDE RECORDS SUMMARY | ~2019-07-04 | XMS | Encounter Summary ---
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 aka: LANTUS insulin lispro 100 units/mL injection (cartridge) Inject 2 Units under the skin 3 times daily (before meals). Plus sliding scale. aka: humaLOG Discontinued Medications aspirin 81 mg chewable tablet ZL-Pptdyieyreyka-Oikuzaoddxdml 10-5-325 MG Caps HYDROcodone-acetaminophen 5-325 mg per tablet aka: NORCO STRATTERA 100 MG capsule Generic drug: atoMOXetine Studies With Pending Results: None Greater than 30 minutes were spent on discharge and coordination of post-hospital care. Electronically signed by: Yancy Barron MD, 09/28/2016 13:20 [facility] documented in this enc ounter Discharge Instructions [...] + documented as of this encounter Progress Hannah De La Rosa PharmD - 09/27/2016 8:00 PM PDTFormatting of this [...] medication list or bottles [] MAR from [facility] facility: [] Doctor's office: [x] Pharmacy list names: [facility], [facility] [] [facility] [employer] S[employer]OL MANAGER (Prescription Monitoring Program) [x] [employer] insurance reported [...] Marijuana lungs 3 times weekly unknown Other: [facility] reports patient appears non-compliant with his medications. Medication: Prior to Admission Sig: Patient taking differently YARN HANDLER as: Atomoxetine 100 mg 1 tablet every morning Pt states taking but last filled for 30 day suppl y in June NL-Jepvhdlonqqeo-Wcjtwfsjreoqz 10-5-325 mg 1 capsule daily as needed [...] performed and electronically signed by Luis Araujo, Bull Riveter 017 19:12 Reviewed by: Hannah Mijares PHARMD 09/27/2016 19:55 documented in this encounter Plan of Treatment [...] | | | POC | | | [facility] | | | | | [...] [address] | [place] | [phone] | | [facility] | | [address] | | | - LABORATORY | | | | + + + + + CBC no Differential (09/28/2016 5:23 AM PDT) + + + + + + | Component | Value | Ref Range | Performed | Pathologist | | | | | At | Signature | + + + + + + | WBC | 6.1 | 4.0 - 11.0 K/uL | [facility] | | [facility] | | | | | | [facility]ICAL | | | | | | CENTER - | | | | | | LABORATORY | | + + + + + + | RBC | 3.31 (L) | 4.30 - 5.70 [...] + | [facility] | [address] | [place] | [phone] | | [facility] | | [address] | | | - LABORATORY | | [...] mL/min/1.73m2 | [facility] | | | [place] | RATE,ESTIMATED | | MEDICAL | | | | mL/min/1.09b8Obio than | | CENTER - | | [...] [address] | [place] | [phone] | | [facility] | | [address] | | | - LABORATORY | | [...] [address] | [place] | [phone] | | [facility] | | [address] | | | - LABORATORY | | [...] | | | POC | | | [facility] | | | | | [...] + | [facility] | [address] | [place] | [phone] | | [facility] | | [address] | | | - LABORATORY | | [...] [address] | [place] | [phone] | | [facility] | | [address] | | | - LABORATORY | | | | + + + + + Phosphorus (09/27/2016 3:42 PM PDT) + +-------+ + + + | Component | Value | Ref Range | Performed | Pathologist | | | | | At | Signature | + +-------+ + + + | Phosphorus | 4.3 | 2.5 - 4.6 mg/dL | [facility] [...] [address] | [place] | [phone] | | [facility] | | [address] | | | - LABORATORY | | [...] + | [facility] | [address] | [place] | [phone] | | [facility] | | [address] | | | - LABORATORY | | [...] | 1.21 | 0.60 - 1.30 | [facility] | [...] mL/min/1.73m2 | [facility] | | | [place] | RATE,ESTIMATED | | MEDICAL | | | | mL/min/1.43s5Tldy than | | CENTER - | | [...] [address] | [place] | [phone] | | [facility] | | [address] | | | - LABORATORY | | | | + + + + + Phosphorus (09/27/2016 11:28 AM PDT) + +-------+ + + + | Component | Value | Ref Range | Performed | Pathologist | | | | | At | Signature | + +-------+ + + + | Phosphorus | 3.2 | 2.5 - 4.6 mg/dL | [facility] [...] [address] | [place] | [phone] | | [facility] | | [address] | | | - LABORATORY | | | | + + + + + Magnesium (09/27/2016 11:28 AM PDT) + +-------+ + + + | Component | Value | Ref Range | Performed | Pathologist | | | | | At | Signature | + +-------+ + + + | Magnesium | 2.0 | 1.8 - 2.5 mg/dL | [facility] [...] + | [facility] | [address] | [place] | [phone] | | [facility] | | [address] | | | - LABORATORY | | [...] not | >60Comment: GLOMERULAR | >=60 | [facility] | | | | FILTRATION | mL/min/1.73m2 | [facility] | | | [place] | RATE,ESTIMATED | | MEDICAL | | | | mL/min/1.43j9Tygs than | | CENTER - | | [...] [address] | [place] | [phone] | | [facility] | | [address] | | | - LABORATORY | | [...] - 1.030 | [facility] | | | [place] | | | [facility] | | [...] Urine | | mg/dL, Negative | [facility] | | | | | | MEDICAL | | | | | | CENTER - | | | | | | LABORATORY | | + + + + + + | WBC UA | 2-5 (A) | 0 - 2 [...] + + + + | SQUAMOUS | 2-5 (A) | 0 - 2 /LPF | [facility] | | | EPITHELIAL | | | [facility] | | | [facility] | | | MEDICAL | | | | | | CENTER - | | | | | | LABORATORY | | + + + + + + | BACTERIA UA | 1+ (A) | Negative /HPF | [facility] | | | | | [facility] | | | | | | MEDICAL | | | | | | CENTER - | | | | | | LABORATORY | | + + + + + + | MUCUS UA | Present (A) | Negative /LPF | [facility] | | | | | [facility] | | | | | | MEDICAL | | | | | | CENTER - | | | | | | LABORATORY | | + + + + + + | HYALINE | 0-2 | 0 - 2 /LPF | [facility] | | | [facility] | | | [facility] | | | | | | MEDICAL | | | | | | CENTER - | | | | | | LABORATORY | | + + + + + + | GRANULAR | 5-10 (A) | 0 - 2 /LPF | [facility] | | | [facility] | | | [facility] | | | | | | MEDICAL | | | | | | CENTER - | | | | | | LABORATORY | | + + + + + + | URINE | Urine Culture Not | | [facility] | | | COMMENT | Indicated | | [facility] | [address] | [place] | [phone] | | [facility] | | [address] | | | - LABORATORY | | [...] [address] | [place] | [phone] | | [facility] | | [address] | | | - LABORATORY | | | | + + + + + Magnesium (09/27/2016 9:27 AM PDT) + +-------+ + + + | Component | Value | Ref Range | Performed | Pathologist | | | | | At | Signature | + +-------+ + + + | Magnesium | 2.0 | 1.8 - 2.5 mg/dL | [facility] | | | | | [...] [address] | [place] | [phone] | | [facility] | | [address] | | | - LABORATORY | | [...] | 1.17 | 0.60 - 1.30 | [facility] | | | | | mg/dL | [facility] | | | | | | MEDICAL | | | | | | CENTER - | | | | | | LABORATORY | | + + + + + + | eGFR if not | >60Comment: GLOMERULAR | >=60 | [facility] | | | | FILTRATION | mL/min/1.73m2 | [facility] | | | [place] | RATE,ESTIMATED | | MEDICAL | | | | mL/min/1.96q9Ykpl than | | CENTER - | | [...] + | [facility] | [address] | [place] | [phone] | | [facility] | | [address] | | | - LABORATORY | | [...] [address] | [place] | [phone] | | [facility] | | [address] | | | - LABORATORY | | [...] [address] | [place] | [phone] | | [facility] | | [address] | | | - LABORATORY | | [...] [address] | [place] | [phone] | | [facility] | | [address] | | | - LABORATORY | | [...] [address] | [place] | [phone] | | [facility] | | [address] | | | - LABORATORY | | [...] + + | eGFR if not | 56 (L)Comment: | >=60 | [place] | | | | GLOMERULAR FILTRATION | mL/min/1.73m2 | [facility] | | | [place] | RATE,ESTIMATED | | MEDICAL | | | | mL/min/1.32z4Ippq than | | CENTER - | | [...] | 8.4 | 8.3 - 10.5 | [facility] | | | | | mg/dL | [facility] | | | | | [...] [address] | [place] | [phone] | | [facility] | | [address] | | | - LABORATORY | | [...] + | [facility] | [address] | [place] | [phone] | | [facility] | | [address] | | | - LABORATORY | | [...] [address] | [place] | [phone] | | [facility] | | [address] | | | - LABORATORY | | | | + + + + + Phosphorus (09/27/2016 5:08 AM PDT) + +-------+ + + + | Component | Value | Ref Range | Performed | Pathologist | | | | | At | Signature | + +-------+ + + + | Phosphorus | 3.0 | 2.5 - 4.6 mg/dL | [facility] [...] [address] | [place] | [phone] | | [facility] | | [address] | | | - LABORATORY | | | | + + + + + Magnesium (09/27/2016 5:08 AM PDT) + +-------+ + + + | Component | Value | Ref Range | Performed | Pathologist | | | | | At | Signature | + +-------+ + + + | Magnesium | 2.1 | 1.8 - 2.5 mg/dL | [facility] [...] + | [facility] | [address] | [place] | [phone] | | [facility] | | [address] | | | - LABORATORY | | [...] | | | | | | [facility] | | | | | | MEDICAL | | | | | | CENTER - | | | | | | LABORATORY | | + + + + + + | BUN | 25 (H) | 7 - 18 mg/dL | [facility] | | | | | | [facility] | | | | | | MEDICAL | | | | | | CENTER - | | | | | | LABORATORY | | + + + + + + | Creatinine | 1.72 (H) | 0.60 - 1.30 | [facility] | | | | | mg/dL | [facility] | | | | | | MEDICAL | | | | | | CENTER - | | | | | | LABORATORY | | + + + + + + | eGFR if not | 45 (L)Comment: | >=60 | [facility] | | | | GLOMERULAR FILTRATION | mL/min/1.73m2 | [facility] | | | [place] | RATE,ESTIMATED | | MEDICAL | | | | mL/min/1.39w1Lxju than | | CENTER - | | [...] [address] | [place] | [phone] | | [facility] | | [address] | | | - LABORATORY | | [...] [address] | [place] | [phone] | | [facility] | | [address] | | | - LABORATORY | | [...] + | [facility] | [address] | [place] | [phone] | | [facility] | | [address] | | | - LABORATORY | | [...] [address] | [place] | [phone] | | [facility] | | [address] | | | - LABORATORY | | [...] + + | [facility] | [address] | [place] | [phone] | | [facility] | | [address] | | | - LABORATORY | | [...] | | Consistent with previous | | [facility] | | | | results. | [...] 1.89 (H) | 0.60 - 1.30 | [facility] | | | | | mg/dL | [facility] | | | | | | MEDICAL | | | | | | CENTER - | | | | | | LABORATORY | | + + + + + + | eGFR if not | 41 (L)Comment: | >=60 | [facility] | | | | GLOMERULAR FILTRATION | mL/min/1.73m2 | [facility] | | | [place] | RATE,ESTIMATED | | MEDICAL | | | | mL/min/1.70v2Vnrq than | | CENTER - | | [...] + | [facility] | [address] | [place] | [phone] | | [facility] | | [address] | | | - LABORATORY | | | | + + + + + CBC no Differential (09/27/2016 3:16 AM PDT) + + + + + + | Component | Value | Ref Range | Performed | Pathologist | | | | | At | Signature | + + + + + + | WBC | 15.6 (H) | 4.0 - 11.0 K/uL | [facility] | | | | | | [facility] | | | | | | MEDICAL | | | | | | CENTER - | | | | | | LABORATORY | | + + + + + + | RBC | 3.56 (L) | 4.30 - 5.70 [...] | MPV | 6.7 | fL | [facility] | | | [...] [address] | [place] | [phone] | | [facility] | | [address] | | | - LABORATORY | | [...] ST. | [address] | [place], [place] | [phone] | | [facility] | | [address] | | | - LABORATORY | | [...] | Procedure Note | + + | Siddhartha, Rad Results In - 09/27/2016 9:11 AM PDT [...] | | Dictated and Signed by: Braeden Sdidiqui MD | | Electronically signed: 09/27/2016 9:08 [...] | | coagulase positive | | [facility] | | | [...] [address] | [place] | [phone] | | [facility] | | [address] | | | - LABORATORY | | [...] | | | PCR | | | [facility] | | | | | | MEDICAL | | | | | | CENTER - | | | | | | LABORATORY | | + + + + + + | Influenza B | Negative | Negative | [facility] | | | PCR | | | [facility] | | | | | [...] ST. | [address] | [place] | [phone] | | [facility] | | [address] | | | - LABORATORY | | | | + + + + + Phosphorus (09/27/2016 1:36 AM PDT) + +---------+ + + + | Component | Value | Ref Range | Performed | Pathologist | | | | | At | Signature | + +---------+ + + + | Phosphorus | 6.3 (H) | 2.5 - 4.6 mg/dL | [facility] [...] [address] | [place] | [phone] | | [facility] | | [address] | | | - LABORATORY | | | | + + + + + Magnesium (09/27/2016 1:36 AM PDT) + +-------+ + + + | Component | Value | Ref Range | Performed | Pathologist | | | | | At | Signature | + +-------+ + + + | Magnesium | 2.5 | 1.8 - 2.5 mg/dL | [facility] [...] + | [facility] | [address] | [place] | [phone] | | [facility] | | [address] | | | - LABORATORY | | [...] + + | eGFR if not | 39 (L)Comment: | >=60 | [facility] | | | | GLOMERULAR FILTRATION | mL/min/1.73m2 | [facility] | | | [place] | RATE,ESTIMATED | | MEDICAL | | | | mL/min/1.76i6Ebwu than | | CENTER - | | [...] + | BUN/Creatin | 15.7 | | [facility] | | | ine Ratio | | [...] [address] | [place] | [phone] | | [facility] | | [address] | | | - LABORATORY | | [...] + | [facility] | [address] | [place] | [phone] | | [facility] | | [address] | | | - LABORATORY | | [address] | [place] | [phone] | | [facility] | | [address] | | | - LABORATORY | | [...] MD | | | | | | ([address]) on 09/27/2016 | | | | | [...] ST. | [address] | [place] | [phone] | | [facility] | | [address] | | | - LABORATORY | | [...] | | Hydroxybuty | | mmol/L | [facility] | | | rate | | | [...] [address] | [place] | [phone] | | [facility] | | [address] | | | - LABORATORY | | [...] | MEDICAL | | | | Flavia Orellana on | | CENTER - | | [...] | Result called to and | | [facility] | | | | read back [...] + + + | Glucose | 839 (HH)Comment: | 70 - 109 mg/dL | [facility] | | | | Critical Result called | | [facility] | | | | to and read back by | | MEDICAL | | | | Flavia Orellana on | | CENTER - | | [...] 2.25 (H) | 0.60 - 1.30 | [facility] | | | | | mg/dL | [facility] | | | | | | MEDICAL | | | | | | CENTER - | | | | | | LABORATORY | | + + + + + + | eGFR if not | 33 (L)Comment: | >=60 | [facility] | | | | GLOMERULAR FILTRATION | mL/min/1.73m2 | [facility] | | | [place] | RATE,ESTIMATED | | MEDICAL | | | | mL/min/1.85o3Kshl than | | CENTER - | | [...] 4.2 | 3.2 - 5.0 g/dL | [facility] | | | | | | [facility] | | | | | | MEDICAL | | | | | | CENTER - | | | | | | LABORATORY | | + + + + + + | Bilirubin | 2.4 (H) | 0.1 - 1.5 mg/dL | [facility] | | | Total | | | [...] + | [facility] | [address] | [place] | [phone] | | [facility] | | [address] | | | - LABORATORY | | | | + + + + + CBC with Differential (09/26/2016 10:55 PM PDT) + + + + + + | Component | Value | Ref Range | Performed | Pathologist | | | | | At | Signature | + + + + + + | WBC | 13.8 (H) | 4.0 - 11.0 K/uL | [facility] | | | | | | [facility] | | | | | | MEDICAL | | | | | | CENTER - | | | | | | LABORATORY | | + + + + + + | RBC | 4.15 (L) | 4.30 - 5.70 | [facility] | | | | | M/uL | . [facility] | | | | | | MEDICAL | | | | | | CENTER - | | | | | | LABORATORY | | + + + + + + | Hemoglobin | 13.7 | 13.5 - 18.0 | [facility] | | | | | g/dL | [facility] | | | | | [...] | Basophils | | K/uL | [facility] | | | | [...] [address] | [place] | [phone] | | [facility] | | [address] | | | - LABORATORY | | [...] + | [facility] | [address] | [place] | [phone] | | [facility] | | [address] | | | - LABORATORY | | [...] [address] | [place] | [phone] | | [facility] | | [address] | | | - LABORATORY | | [address] | [place] | [phone] | | [facility] | | [address] | | | - LABORATORY | | [...] [address] | [place] | [phone] | | [facility] | | [address] | | | - LABORATORY | | [...] + | [facility] | [address] | [place] | [phone] | | [facility] | | [address] | | | - LABORATORY | | [...] ST. | [address] | [place], [place] | [phone] | | [facility] | | [address] | | | - LABORATORY | | [...] | | | | | | | 7200-4560 Use NIGHT DOSE for | | | | | | | doses scheduled: HS, 3AM, | | | | | | | Nighttime 1330-1819, | | | | | | + [...] | | | | | NPO, Daytime 9445-9325 Use NIGHT | | | | | | | DOSE for doses scheduled: | | | | | | | HS, 3AM, Nighttime 2856-1126, | | | | | | + [...] | | | | | TITRATED, Starting 09/27/16 at | | | | | | [...] PM PDT | | | | | 09/27/16 at 2000, Do not cut or | [...] PDT | | | | | ONCE, [facility] 09/26/16 at 2305, For 1 | | [...] PDT | | | | | ONCE, [facility] 09/26/16 at 2355, For 1 | | [...] | mL/hr | | | Intravenous, ONCE, Fri09/27/16 at | | AM PDT | | [...] AM PDT | | | | | Fri09/27/16 at 0145, Discontinue | | | | | | | when dextrose-containing fluid is | | | | | | | started., | | | | | | + +---------+ +---+-------+---+ +---+---+ | | | +---+---+ documented in this encounter
--- OUTSIDE RECORDS SUMMARY | ~2019-07-04 | XMS | Encounter Summary ---
Demographics + + + | Address | [address] | | | [place] [address] | + + + | Home Phone [...] + + | Author | [facility] | | | and Ryana | + + + | Organization | [facility] | | [...] Team Providers + +------+ + | Care Quality Engineer Name | Role | Phone | [address] | | | | | | [place] | | | | | | [address] | | | | | | [phone] | | | +--------+ + + + [...] | [address] | [place] | [phone] | | [facility] | | [address] | | | - LABORATORY | | | | + + + + + documented in this encounter Visit Diagnoses Not on filedocumented in this encounter"
--- OUTSIDE RECORDS SUMMARY | ~2019-07-04 | XMS | Encounter Summary ---
Demographics + + + | Address | [address] | | | [place] [address] | + + + | Home Phone [...] Team Providers + +------+ + | Care Salesperson Sheet Music Name | Role | Phone | + [...] + + | 05/07/ | Emergency | [facility] | Adi Castro | Vomiting, | | 2017 | | [facility] | Alexander Craig MD | intractability of | | | | CENTER [address] | [address] | vomiting not | | | | [place], [place] | [place], [place] | specified, presence | | | | [address] | [address] | of nausea not | | | | [phone] | | specified, | | | | [...] J?MRN: | | | | | | [id number] | | | [id number] | | | his | | | [...] | | | St. | | | [place] | | | y | | | [...] | | | St. | | | [place] | | | y | | | [...] | | | St. | | | [place] | | | y H. | | [...] | | | St. | | | [place] | | | y H. | | [...] | | | St. | | | [place] | | | y H. | | [...] | | | St. | | | [place] | | | y H. | | [...] | | | St. | | | [place] | | | y H. | | [...] | | | St. | | | [place] | | | y | | | [...] | | | ext. | | | [phone] | | | or go | | [...]
--- OUTSIDE RECORDS SUMMARY | ~2019-07-04 | XMS | Encounter Summary ---
Demographics + + + | Address | [address] | | | [place] [address] | + + + | Home Phone | | + + + | Preferred Language | Unknown | + + + | Marital Status | Single | + + + | Orthodoxy Affiliation | 1001 | + + + | Race | Unknown | + + + | Ethnic Group | Unknown | + + + Author + + + | Author | [facility] | | | and [place] | + + + | Organization | [facility] | | [...] Team Providers + +------+ + | Care Waistband Setter Lockstitch Name | Role | Phone | + +------+ + PCP | Unavailable | + +------+ + Encounter Details +--------+ + + + + | Date | Type | Department | Care Team | Description | +--------+ + + + + | 12/19/ | Hospital | [facility] | Zeus Wilcox MD, | | | 1999 - | Encounter | [place] [address] | [address] [place] [address] | | | | | [place], [place] | [place] [address] | | | 12/21/ | | [address] | [phone] | | | 1999 | | [phone] | | | +--------+ + + + [...]
--- OUTSIDE RECORDS SUMMARY | ~2019-07-04 | XMS | Encounter Summary ---
Demographics + + + | Address | [address] | | | [place] [address] | + + + | Home Phone [...] Providers + +------+ + | Care Manager Shipping Name | Role | Phone | + +------+ + PCP | Unavailable | + +------+ + Encounter Details +--------+ + + + + | Date | Type | Department | Care Team | Description | +--------+ + + + + | 08/23/ | Hospital | [facility] | Shivam Bustos MD | | | 2003 | Encounter | [facility] [address] [place] [address] | [address] [place] | | | | | [place], [place] | [facility] | | | | | [address] | [place] [address] | | | | | [phone] | | | +--------+ + + + [...]
--- OUTSIDE RECORDS SUMMARY | ~2019-07-04 | XMS | Encounter Summary ---
Demographics + + + | Address | [address] | | | [place] [address] | + + + | Home Phone [...] Team Providers + +------+ + | Care Farm Loan Inspector Name | Role | Phone | [...] + + | 09/23/ | Emergency | [facility] | Adi Castro | Hyperglycemia | | 2017 - | | [facility] CTR EM[facility]Y | Alexander Craig MD | (Primary Dx); | | | | CENTER [address] | [address] | Genital edema, male | | 09/24/ | | [place], [place] | [place], [place] | | | 2016 | | [address] | [address] | | | | | [phone] | | | +--------+ + + + [...] | | 0 | | | | XH-Nzdrkcjnmxlzg-Qkx | mouth Daily as | | | [...] + | [facility] | [address] | [place] | [phone] | | [facility] | | [address] | | | - LABORATORY | | [...] + | [facility] | [address] | [place] | [phone] | | [facility] | | [address] | | | - LABORATORY | | [...] [address] | [place] | [phone] | | [facility] | | [address] | | | - LABORATORY | | [...] + | [facility] | [address] | [place] | [phone] | | [facility] | | [address] | | | - LABORATORY | | [...] mL/min/1.73m2 | Paula [facility] | | | SAMOAN | RATE,ESTIMATED | | MEDICAL | | | | mL/min/1.65q8Jquf than | | CENTER - | | [...] (L) | 3.2 - 5.0 g/dL | [facility] | | | | | | [facility] [...] [address] | [place] | [phone] | | [facility] | | [address] | | | - LABORATORY | | [...] + | [facility] | [address] | [place], [place] | [phone] | | [facility] | | [address] | | | - LABORATORY | | [...]
--- OUTSIDE RECORDS SUMMARY | ~2019-07-04 | XMS | Encounter Summary ---
Demographics + + + | Address | [address] | | | [place] [address] | + + + | Home Phone | | + + + | Preferred Language | Unknown | + + + | Marital Status | Single | + + + | Buddhism Affiliation | 1001 | + + + [...] Team Providers + +------+ + | Care Toe Pounder Name | Role | Phone | + [...] + + | 09/23/ | Emergency | [facility] | Adi Castro | Hyperglycemia | | 2017 - | | [facility] EM[facility]Y | Alexander Craig MD | (Primary Dx); | | | | CENTER [address] | [address] | Genital edema, male | | 09/24/ | | [place], [place] | [place], [place] | | | 2016 | | [address] | [address] | | | | | [phone] | | | +--------+ + + + [...] | | 0 | | | | LI-Mukwkxqzlyafa-Uky | mouth Daily as | | | [...] + | [facility] | [address] | [place] | [phone] | | [facility] | | [address] | | | - LABORATORY | | [...] + | [facility] | [address] | [place] | [phone] | | [facility] | | [address] | | | - LABORATORY | | [...] [address] | [place] | [phone] | | [facility] | | [address] | | | - LABORATORY | | [...] + | [facility] | [address] | [place] | [phone] | | [facility] | | [address] | | | - LABORATORY | | [...] | | FILTRATION | mL/min/1.73m2 | [facility] | | | SPANISH | RATE,ESTIMATED | | MEDICAL | | | | mL/min/1.64u6Zebf than | | CENTER - | | [...] (L) | 3.2 - 5.0 g/dL | [facility] | | | | | | [facility] [...] [address] | [place] | [phone] | | [facility] | | [address] | | | - LABORATORY | | [...] | | | | | | [facility] | | [...] + | [facility] | [address] | [place], [place] | [phone] | | [facility] | | [address] | | | - LABORATORY | | [...]
--- OUTSIDE RECORDS SUMMARY | ~2019-07-04 | XMS | Encounter Summary ---
Demographics + + + | Address | [address] | | | [place] [address] | + + + | Home Phone [...] Providers + +------+ + | Care Pharmacy Picking Technician Name | Role | Phone | + +------+ + PCP | Unavailable | + +------+ + Encounter Details +--------+ + + + + | Date | Type | Department | Care Team | Description | +--------+ + + + + | 02/23/ | [facility] | IONIA | Abhi Berger | | | 2003 | Encounter | FAM[facility]INE 120 | MD [address] | | | | | [place] | [place], [place] | | | | | [place] [address] | [address] | | | | | [phone] | | | +--------+ + + + [...]
--- OUTSIDE RECORDS SUMMARY | ~2019-07-04 | XMS | Encounter Summary ---
Demographics + + + | Address | [address] | | | [place] [address] | + + + | Home Phone | | + + + | Preferred Language | Unknown | + + + | Marital Status | Single | + + + | Christian Affiliation | 1001 | + + + | Race | Unknown | + + + | Ethnic Group | Unknown | + + + Author + + + | Author | [facility] | | | and Ryana | + + + | Organization | [facility] | | | [...] Providers + +------+ + | Care Interlocking Machine Operator Name | Role | Phone [...] Provider Unknown | | | | | [place], [place] | | | | | | [address] | (Fax) | | | | | [...]
--- OUTSIDE RECORDS SUMMARY | ~2019-07-04 | XMS | Encounter Summary ---
Demographics + + + | Address | [address] | | | [place] [address] | + + + | Home Phone [...] Team Providers + +------+ + | Care Institutional Cook Name | Role | Phone | + [...] | | | | | | | ([facility]) | | | | | | [...] | | | | | | | ([facility]) | | | +--------+--------+ + + + + Encounter Details +--------+ + + + + | Date | Type | Department | Care Team | Description | +--------+ + + + + | 06/20/ | Hospital | [facility] | ColemanSunilmelani Condon, | Diabetic | | 2016 - | Encounter | MED CTR ICU [address] | [address] | ketoacidosis without | | | | [place], | [place], [place] | coma associated | | 06/21/ | | [place] [address] | [address] | with other specified | | 2015 | | [phone] | | diabetes mellitus | | | | | Kevin Gifford MD | ([facility]) (Primary Dx); | | | | | [address] | Diabetic | | | | | [place], [place] | ketoacidosis without | | | | | [address] | coma associated | | | | | | with type 1 diabetes | | | | | | mellitus ([facility]) | +--------+ + + + + [...] days. Specialty: Family Nurse Practitioner Contact information: [address] [place] [address] Discharge Medications Changed Medications Details insulin glargine 100 units/mL injection (vial) Inject 9 Units under the skin every morning. What changed: Another medication with the same name was removed. Continue taking this medi cation, and follow the directions you see here. aka: LANTUS Unchanged Medications Details aspirin 81 mg chewable tablet Take 81 mg by mouth Daily. IP-Jppeqzwbymork-Nfhdekkxmcviw 10-5-325 MG Caps Take 1 capsule by [...] signed by: Santino Blake MD, 06/21/2016 17:44 [facility] documented in this enc ounter Medications [...] | | 0 | | | | YB-Dpjcxayzdyplh-Els | mouth Daily as | | | [...] encounter Progress Notes Ayala Han, [facility] - 06/20/2016 9:53 PM PSTFormatting of this note might be different fro m the original. PHARMACY SERVICES: ADMISSION MEDICATION REVIEW Joni Kwon is a 35 y.o. male admitted on 06/20/2016. Patient is not a reliable historian. Patient preferred pharmacies closed. Med history techn rose will call 06/21/2016 @ 7998 to obtain current medication list and update PROTOZOOLOGIST medicatio ns as necessary. Location of Patient [...] Prior to Admission Sig: Patient taking differently PROTOZOOLOGIST as: Insulin Glargine 100 u/ml 15 units nightly 9 units in the morning and 6 units in the evenin g Medication added: Medication: Prior to Admission Sig: SG-Ozuvswwcttcli-Obyecpmykwvph 10-5-325 mg 1 cap daily as needed for sinus congestion Medication review performed and electronically signed by Luis Araujo Java Portal Developer 06/20 21:44 Reviewed by Ayala Han [facility] 06/20/2016 21:53 documented in this [...] [address] | [place] | [phone] | | [facility] | | [address] | | | - LABORATORY | | [...] 10 | 7 - 18 mg/dL | [facility] | | | | | | [facility] | | | | | | MEDICAL | | | | | | CENTER - | | | | | | LABORATORY | | + + + + + + | Creatinine | 0.65 | 0.60 - 1.30 | [facility] | | | | | mg/dL | [facility] | | | | | | MEDICAL | | | | | | CENTER - | | | | | | LABORATORY | | + + + + + + | eGFR if not | >60Comment: GLOMERULAR | >=60 | [place] | | | | FILTRATION | mL/min/1.73m2 | [facility] | | | POLISH | RATE,ESTIMATED | | MEDICAL | | | | mL/min/1.61z2Cvbj than | | CENTER - | | [...] + | [facility] | [address] | [place] | [phone] | | [facility] | | [address] | | | - LABORATORY | | [...] ST. | [address] | [place], [place] | [phone] | | [facility] | | [address] | | | - LABORATORY | | [...] | | | FILTRATION | mL/min/1.73m2 | [facility] | | | POLISH | RATE,ESTIMATED | | MEDICAL | | | | mL/min/1.40g7Kiji than | | CENTER - | | [...] | | | | | mg/dL | [facility] | | | | | [...] [address] | [place] | [phone] | | [facility] | | [address] | | | - LABORATORY | | [...] [address] | [place] | [phone] | | [facility] | | [address] | | | - LABORATORY | | [...] ST. | [address] | [place], [place] | [phone] | | [facility] | | [address] | | | - LABORATORY | | [...] [address] | [place] | [phone] | | [facility] | | [address] | | | - LABORATORY | | [...] 14 | 7 - 18 mg/dL | [facility] | | | | | | [facility] | | | | | | MEDICAL | | | | | | CENTER - | | | | | | LABORATORY | | + + + + + + | Creatinine | 0.74 | 0.60 - 1.30 | [place] | | | | | mg/dL | [facility] | | | | | | MEDICAL | | | | | | CENTER - | | | | | | LABORATORY | | + + + + + + | eGFR if not | >60Comment: GLOMERULAR | >=60 | [facility] | | | | FILTRATION | mL/min/1.73m2 | [facility] | | | POLISH | RATE,ESTIMATED | | MEDICAL | | | | mL/min/1.74f8Vgei than | | CENTER - | | [...] ST. | [address] | [place], [place] | [phone] | | [facility] | | [address] | | | - LABORATORY | | [...] | | chromogenic agar method | | [facility] | | | | | | [...] [address] | [place] | [phone] | | [facility] | | [address] | | | - LABORATORY | | [...] + | [facility] | [address] | [place] | [phone] | | [facility] | | [address] | | | - LABORATORY | | [...] + | [facility] | [address] | [place] | [phone] | | [facility] | | [address] | | | - LABORATORY | | [...] [address] | [place] | [phone] | | [facility] | | [address] | | | - LABORATORY | | [...] | 0.64 | 0.60 - 1.30 | [facility] | | | | | mg/dL | [facility] | | | | | | MEDICAL | | | | | | CENTER - | | | | | | LABORATORY | | + + + + + + | eGFR if not | >60Comment: GLOMERULAR | >=60 | [facility] | | | | FILTRATION | mL/min/1.73m2 | [facility] | | | POLISH | RATE,ESTIMATED | | MEDICAL | | | | mL/min/1.94u7Wbou than | | CENTER - | | [...] + | [facility] | [address] | [place] | [phone] | | [facility] | | [address] | | | - LABORATORY | | [...] Urine | | Yellow, Straw | [facility] | | | | | | [...] - 1.030 | [facility] | | | Pike | | | [facility] | | [...] [address] | [place] | [phone] | | [facility] | | [address] | | | - LABORATORY | | [...] ST. | [address] | [place], [place] | [phone] | | [facility] | | [address] | | | - LABORATORY | | [...] + | [facility] | [address] | [place] | [phone] | | [facility] | | [address] | | | - LABORATORY | | [...] | | | | | | [employer] | | | | | [...] [address] | [place] | [phone] | | [facility] | | [address] | | | - LABORATORY | | [...] [address] | [place] | [phone] | | [facility] | | [address] | | | - LABORATORY | | [...] [address] | [place] | [phone] | | [facility] | | [address] | | | - LABORATORY | | [...] mL/min/1.73m2 | [facility] | | | POLISH | RATE,ESTIMATED | | MEDICAL | | | | mL/min/1.94g9Jsjd than | | CENTER - | | [...] + | [facility] | [address] | [place] | [phone] | | [facility] | | [address] | | | - LABORATORY | | [...] [address] | [place] | [phone] | | [facility] | | [address] | | | - LABORATORY | | [...] + | [facility] | [address] | [place] | [phone] | | [facility] | | [address] | | | - LABORATORY | | [...] | | | | HAWA RUBIN MD ([id number]) | | | | | | on [...] [address] | [place] | [phone] | | [facility] | | [address] | | | - LABORATORY | | [...] + | [facility] | [address] | [place] | [phone] | | [facility] | | [address] | | | - LABORATORY | | [...] [address] | [place] | [phone] | | [facility] | | [address] | | | - LABORATORY | | [...] | 1.09 | 0.60 - 1.30 | [facility] | | | | | mg/dL | [facility] | | | | | | MEDICAL | | | | | | CENTER - | | | | | | LABORATORY | | + + + + + + | eGFR if not | >60Comment: GLOMERULAR | >=60 | [facility] | | | | FILTRATION | mL/min/1.73m2 | [facility] | | | POLISH | RATE,ESTIMATED | | MEDICAL | | | | mL/min/1.83e6Gqnu than | | CENTER - | | [...] | 8.8 | 8.3 - 10.5 | [facility] | | | | | mg/dL | [facility] | | | | | [...] [address] | [place] | [phone] | | [facility] | | [address] | | | - LABORATORY | | [...] [facility] | | | | | | [facility] | | | | | | MEDICAL | | | | | | CENTER - | | | | | | LABORATORY | | + + + + + + | RBC | 3.65 (L) | 4.30 - 5.70 | [facility] | | | | | M/uL | [facility] | | | | | [...] [address] | [place] | [phone] | | [facility] | | [address] | | | - LABORATORY | | [...] [address] | [place] | [phone] | | [facility] | | [address] | | | - LABORATORY | | [...] + | [facility] | [address] | [place] | [phone] | | [facility] | | [address] | | | - LABORATORY | | [...] [address] | [place] | [phone] | | [facility] | | [address] | | | - LABORATORY | | [...] ST. | [address] | [place], [place] | [phone] | | [facility] | | [address] | | | - LABORATORY | | [...] + | [facility] | [address] | [place] | [phone] | | [facility] | | [address] | | | - LABORATORY | | [...] | | | PT's OWN MED. In [facility] patient | | | | | | | specific bin. RETURN TO PATIENT | | | | | | | AT DISCHARGE. Verified by | | | | | | | Pharmacist Lupe Tilley, [facility] | | | | | [...] | | | | | Intravenous, ONCE, [facility] 06/20/16 | | PM PST | | [...] | | | | | NPO, Daytime 7150-6773 Use NIGHT | | | | | | | DOSE for doses scheduled: | | | | | | | HS, 3AM, Nighttime 8157-4819, | | | | | | + [...] PST | | | | | ONCE, [facility] 06/20/16 at 1940, For 1 | | [...]
--- OUTSIDE RECORDS SUMMARY | ~2019-07-04 | XMS | Encounter Summary ---
Demographics + + + | Address | [address] | | | [place] [address] | + + + | Home Phone [...] Team Providers + +------+ + | Care Photoengraving Etcher Name | Role | Phone | + [...] + + | 04/09/ | Emergency | [facility] | Adi Castro | Hyperglycemia | | 2017 | | MED CTR EMERGENCY | Alexander Craig MD | (Primary Dx) | | | | CENTER [address] | [address] | | | | | [place] | [place] | | | | | [address] | [address] | | | | | [phone] | | | +--------+ + + + [...] J?MRN: | | | | | | [id number] | | | [id number] | | | his | | | [...] | | | St. | | | [place] | | | y H. | | [...] | | | St. | | | [place] | | | y H. | | [...] | | | St. | | | [place] | | | y H. | | [...] | | | St. | | | [place] | | | y H. | | [...] | | | St. | | | [place] | | | y H. | | [...] | | | St. | | | [place] | | | y | | | [...] [address] | [place] | [phone] | | [facility] | | [address] | | | - LABORATORY | | [...] + | [facility] | [address] | [place] | [phone] | | [facility] | | [address] | | | - LABORATORY | | [...] + | [facility] | [address] | [place] | [phone] | | [facility] | | [address] | | | - LABORATORY | | [...] | Hydroxybuty | | mmol/L | [facility] | | | rate | | [...] + | [facility] | [address] | [place] | [phone] | | [facility] | | [address] | | | - LABORATORY | | [...] + | [facility] | [address] | [place] | [phone] | | [facility] | | [address] | | | - LABORATORY | | [...] + | [facility] | [address] | [place] | [phone] | | [facility] | | [address] | | | - LABORATORY | | [...] | | LABORATORY | | | | iSri [place]. | | | | + + [...] mL/min/1.73m2 | [facility] | | | [place] | RATE,ESTIMATED | | MEDICAL | | | | mL/min/1.79b6Newb than | | CENTER - | | [...] + | [facility] | [address] | [place] | [phone] | | [facility] | | [address] | | | - LABORATORY | | [...] [address] | [place] | [phone] | | [facility] | | [address] | | | - LABORATORY | | [...] 1.001 - 1.030 | | | | [place], | | | | | | UA, [...] + + + + + + | Ictotest | | Negative | | | + + + + [...] + | [facility] | [address] | [place] | [phone] | | [facility] | | [address] | | | - LABORATORY | | [...]
--- OUTSIDE RECORDS SUMMARY | ~2019-07-04 | XMS | Encounter Summary ---
Demographics + + + | Address | [address] | | | [place] [address] | + + + | Home Phone [...] Team Providers + +------+ + | Care Tape Duplicator Name | Role | Phone | + +------+ + | Shavon [place] | PCP | | + +------+ + Encounter Details +--------+ + + + + | Date | Type | Department | Care Team | Description | +--------+ + + + + | 04/18/ | Emergency | [facility] | No, Physician | Procedure and | | 2017 | | [facility] CTR EM[facility]Y | | treatment not | | | | [place] [address] | | carried out due to | | | | [place] | | patient leaving | | | | [address] | | prior to being seen | | | | [phone] | | by health care | | [...] J?MRN: | | | | | | [id number] | | | [id number] | | | his | | | [...] | | | St. | | | [place] | | | y | | | [...] | | | St. | | | [place] | | | y H. | | [...] | | | St. | | | [place] | | | y H. | | [...] | | | St. | | | [place] | | | y H. | | [...] | | | St. | | | [place] | | | y H. | | [...] | | | St. | | | [place] | | | y H. | | [...] | | | St. | | | [place] | | | y | | | [...] | | | ext. | | | [address] | | | or go | | [...]
--- OUTSIDE RECORDS SUMMARY | ~2019-07-04 | XMS | Clinical Summary ---
Demographics + + + | Address | [address] | | | [place] [address] | + + + | Preferred Language | Unknown | + + + | Marital Status | Single | + + + | Congregational Affiliation | Unknown | + + + | Race | Unknown | + + + | Ethnic Group | Unknown | + + + Author + + + | Author | [facility] (Historical as of | | | 02-06-19) | + + + | Organization | [facility] (Historical as of | | | 02-06-19) | + + + | Address | Unknown | + + + | Phone | Unavailable | + + + Care Team Providers + +------+ + | Care Starch Factory Laborer Name | Role | Phone | + [...] +------+-------+ + | MEDICAID | [place] | [id number] | | | [address] | | | [place] | | | | [place] | | | [place] | | | | [address] | | | BIODIESEL PLANT OPERATIONS ENGINEER | | | | | + +--------+ [...] | | 1981 | | [place] [address] | | | lisa | | | | | + +--------+ +--------+-------+ +
--- OUTSIDE RECORDS SUMMARY | ~2019-07-04 | XMS | Encounter Summary ---
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
--- OUTSIDE RECORDS SUMMARY | ~2019-07-04 | XMS | Encounter Summary ---
Demographics + + + | Address | [address] | | | [place] [address] | + + + | Home Phone [...] Team Providers + +------+ + | Care Cytology Laboratory Manager Name | Role | Phone | + +------+ + PCP | Unavailable | + +------+ + Encounter Details +--------+ + + + + | Date | Type | Department | Care Team | Description | +--------+ + + + + | 04/06/ | [facility] | [place] | Abhi Berger | | | 2003 | Encounter | FAMILY MEDICINE 120 | MD [address] | | | | | [address] | [place], [place] | | | | | [place] [address] | [address] | | | | | [phone] | | | +--------+ + + + [...]
--- OUTSIDE RECORDS SUMMARY | ~2019-07-04 | XMS | Encounter Summary ---
Demographics + + + | Address | [address] | | | [place] [address] | + + + | Home Phone | | + + + | Preferred Language | Unknown | + + + | Marital Status | Single | + + + | Hindu Affiliation | 1001 | + + + [...] Providers + +------+ + | Care Manager Asset Name | Role | Phone | + [...] + + | 10/03/ | Hospital | [facility] | Edgar Nunez, | Diabetic | | 2017 - | Encounter | [facility] ICU [address] | MD [address] | ketoacidosis without | | | | [place], | [place], [place] | coma associated | | 10/04/ | | [place] [address] | [address] | with type 1 diabetes | | 2017 | | [phone] | | mellitus (HCC) | | | | | Efren Burnham P, | (Primary Dx); | | | | | DO [address] | Hyperkalemia; Acute | | | | | MS LLH21 GABBIE, | kidney injury (HCC); | | | | | [place] [address] | Acute hyperkalemia; | | | | | [phone] | Acute renal | | | | [...] last month, he was admitted here at [facility] 09/26 through 09/28 and then week later was admitted at [facility] for the DKA a s well. According [...] signed by: Siddhartha Pierson MD, 10/04/2016 8:33 [facility] documented in this encounter Discharge Instructions Instructions [...] resources below can help you learn more: [place] Diabetes [id number].diabetes.org Lighthouse [id number].[email or web address] National Eye [id number] www.nei.nih.gov Hormone Health [id number] www.hormone.org Date Last Reviewed: 10/22/201519990603-8758 [employer]. [address] [place] [address], [place] [address]. All righ ts reserved. 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 | [address] | [place] | [phone] | | [facility] | | [address] | | | - LABORATORY | | [...] | | POC | | | [facility] | | [...] [address] | [place] | [phone] | | [facility] | | [address] | | | - LABORATORY | | [...] | | | | mg/dL | [facility] | | | | | [facility] | | | | | | CENTER - | | | | | | LABORATORY | | + + + + + + | eGFR if not | >60Comment: GLOMERULAR | >=60 | [facility] | | | | FILTRATION | mL/min/1.73m2 | [facility] | | | NIGERIEN | RATE,ESTIMATED | | MEDICAL | | | | mL/min/1.26c1Pwpv than | | CENTER - | | [...] | | | | mg/dL | [facility] | | | | | | MEDICAL [...] | | | Total | | | [facility] | | [...] | bulin Ratio | | | [facility] | [...] + | [facility] | [address] | [place] | [phone] | | [facility] | | [address] | | | - LABORATORY | | | | + + + + + CBC no Differential (10/04/2016 4:05 AM PDT) + + + + + + | Component | Value | Ref Range | Performed | Pathologist | | | | | At | Signature | + + + + + + | WBC | 8.0 | 4.0 - 11.0 K/uL | [facility] | | | | | | [facility] | | | | | | MEDICAL | | | | | | CENTER - | | | | | | LABORATORY | | + + + + + + | RBC | 3.30 (L) | 4.30 - 5.70 | [facility] | | | | | M/uL | [facility] | | | | [...] | MPV | 6.6 | fL | [facility] | | | [...] [address] | [place] | [phone] | | [facility] | | [address] | | | - LABORATORY | | [...] [address] | [place] | [phone] | | [facility] | | [address] | | | - LABORATORY | | [...] [address] | [place] | [phone] | | [facility] | | [address] | | | - LABORATORY | | [...] + | [facility] | [address] | [place] | [phone] | | [facility] | | [address] | | | - LABORATORY | | | | + + + + + Phosphorus (10/03/2016 4:36 PM PDT) + +-------+ + + + | Component | Value | Ref Range | Performed | Pathologist | | | | | At | Signature | + +-------+ + + + | Phosphorus | 3.3 | 2.5 - 4.6 mg/dL | [facility] [...] [address] | [place] | [phone] | | [facility] | | [address] | | | - LABORATORY | | [...] + | [facility] | [address] | [place] | [phone] | | [facility] | | [address] | | | - LABORATORY | | [...] + | [facility] | [address] | [place] | [phone] | | [facility] | | [address] | | | - LABORATORY | | [...] | 1.00 | 0.60 - 1.30 | [facility] | [...] | | MEDICAL | | | | mL/min/1.17v7Uxez than | | CENTER - | | [...] [address] | [place] | [phone] | | [facility] | | [address] | | | - LABORATORY | | [...] | | | | | | [employer] | | | | | [...] ST. | [address] | [place], [place] | [phone] | | [facility] | | [address] | | | - LABORATORY | | | | + + + + + POC Glucose (10/03/2016 2:45 PM PDT) + +-------+ + + + | Component | Value | Ref Range | Performed | Pathologist | | | | | At | Signature | + +-------+ + + + | Glucose, | 96 | 70 - 150 mg/dL | [facility] [...] [address] | [place] | [phone] | | [facility] | | [address] | | | - LABORATORY | | [...] [address] | [place] | [phone] | | [facility] | | [address] | | | - LABORATORY | | [...] [address] | [place] | [phone] | | [facility] | | [address] | | | - LABORATORY | | [...] + | [facility] | [address] | [place] | [phone] | | [facility] | | [address] | | | - LABORATORY | | [...] + | [facility] | [address] | [place] | [phone] | | [facility] | | [address] | | | - LABORATORY | | [...] | | MEDICAL | | | | mL/min/1.88n7Ebqc than | | CENTER - | | [...] [address] | [place] | [phone] | | [facility] | | [address] | | | - LABORATORY | | | | + + + + + POC Glucose (10/03/2016 1:00 PM PDT) + +-------+ + + + | Component | Value | Ref Range | Performed | Pathologist | | | | | At | Signature | + +-------+ + + + | Glucose, | 81 | 70 - 150 mg/dL | [facility] [...] [address] | [place] | [phone] | | [facility] | | [address] | | | - LABORATORY | | | | + + + + + POC Glucose (10/03/2016 12:34 PM PDT) + +-------+ + + + | Component | Value | Ref Range | Performed | Pathologist | | | | | At | Signature | + +-------+ + + + | Glucose, | 75 | 70 - 150 mg/dL | [facility] [...] + | [facility] | [address] | [place] | [phone] | | [facility] | | [address] | | | - LABORATORY | | [...] [address] | [place] | [phone] | | [facility] | | [address] | | | - LABORATORY | | [...] | | | Lavender | | | [facility] | | | Top Tube | | [...] [address] | [place] | [phone] | | [facility] | | [address] | | | - LABORATORY | | [...] + | [facility] | [address] | [place] | [phone] | | [facility] | | [address] | | | - LABORATORY | | | | + + + + + Basic Metabolic Panel (10/03/2016 10:07 AM PDT) + + + + + + | Component | Value | Ref Range | Performed | Pathologist | | | | | At | Signature | + + + + + + | Na | 132 (L) | 136 - 149 | [facility] | | | | | [...] 1.39 (H) | 0.60 - 1.30 | [facility] | | | | | mg/dL | [facility] | | | | | | MEDICAL | | | | | | CENTER - | | | | | | LABORATORY | | + + + + + + | eGFR if not | 58 (L)Comment: | >=60 | [facility] | | | | GLOMERULAR FILTRATION | mL/min/1.73m2 | [facility] | | | NIGERIEN | RATE,ESTIMATED | | MEDICAL | | | | mL/min/1.09v3Meem than | | CENTER - | | [...] | | | | mg/dL | [facility] | | | | | | MEDICAL | | | | | | CENTER - | | | | | | LABORATORY | | + + + + + + | BUN/Creatin | 15.1 | | [facility] | | | ine Ratio | | | [facility] | | | | | | [...] [address] | [place] | [phone] | | [facility] | | [address] | | | - LABORATORY | | [...] | | | | | | [employer] | | | | | [...] ST. | [address] | [place] | [phone] | | [facility] | | [address] | | | - LABORATORY | | [...] [address] | [place] | [phone] | | [facility] | | [address] | | | - LABORATORY | | | | + + + + + Hemoglobin A1C (10/03/2016 9:01 AM PDT) + + + + + + | Component | Value | Ref Range | Performed | Pathologist | | | | | At | Signature | + + + + + + | Hemoglobin | >14.5 (H) | 4.3 - 6.0 % | [facility] | | | A1c | | | [facility] | | | | | | MEDICAL | | | | | | CENTER - | | | | | | LABORATORY | | + + + + + + | Estimated | | mg/dL | [facility] | | | Average | | | [facility] | | | Glucose | | [...] ST. | [address] | [place], [place] | [phone] | | [facility] | | [address] | | | - LABORATORY | | [...] + | [facility] | [address] | [place] | [phone] | | [facility] | | [address] | | | - LABORATORY | | [...] ST. | [address] | [place], [place] | [phone] | | [facility] | | [address] | | | - LABORATORY | | [...] | | | Dictated and Signed by: aSmi Chapman MD | | Electronically signed: 10/03/2016 [...] | | | | HAWA RUBIN MD ([id number]) | | | | | | on [...] PO2, POC | 29.6 | mmhg | [facility] | | | | | [...] ST. | [address] | [place] | [phone] | | [facility] | | [address] | | | - LABORATORY | | | | + + + + + Phosphorus (10/03/2016 4:06 AM PDT) + + + + + + | Component | Value | Ref Range | Performed | Pathologist | | | | | At | Signature | + + + + + + | Phosphorus | 9.6 ()Comment: | 2.5 - 4.6 mg/dL | [facility] | | | | Critical Result called [...] [address] | [place] | [phone] | | [facility] | | [address] | | | - LABORATORY | | | | + + + + + Magnesium (10/03/2016 4:06 AM PDT) + +---------+ + + + | Component | Value | Ref Range | Performed | Pathologist | | | | | At | Signature | + +---------+ + + + | Magnesium | 2.7 (H) | 1.8 - 2.5 mg/dL | [facility] [...] + | [facility] | [address] | [place] | [phone] | | [facility] | | [address] | | | - LABORATORY | | | | + + + + + Lipid Panel (10/03/2016 4:06 AM PDT) + + + + + + | Component | Value | Ref Range | Performed | Pathologist | | | | | At | Signature | + + + + + + | Triglycerid | 698 (H) | 35 - 160 mg/dL | [facility] | | | es | | | [facility] | | | | | | MEDICAL | | | | | | CENTER - | | | | | | LABORATORY | | + + + + + + | Cholesterol | 339 (H) | 140 - 200 mg/dL | [facility] | | | | | | [facility] | | | | | | MEDICAL | | | | | | CENTER - | | | | | | LABORATORY | | + + + + + + | HDL | 67Comment: New HDL | 28 - 83 mg/dL | [facility] | | | | Reference Range as of | | [facility] | | | | March 02, 2015 | | MEDICAL | | | | Values may be 10-20% | | CENTER - | | | | lower with new, | | LABORATORY | | | | standardized method. | | | | + + + + + + | Chol/HDL | 5.1 | | [facility] | | | Ratio | | | [facility] | | | | | | MEDICAL | | | | | | CENTER - | | | | | | LABORATORY | | + + + + + + | LDL, | Comment: LDL unable to | <=130 mg/dL | [facility] | | | Calculated | calculate due to high | | [facility] | | | | triglyceride value | [...] [address] | [place] | [phone] | | [facility] | | [address] | | | - LABORATORY | | [...] | | | | | | [employer] | | | | | [...] [address] | [place] | [phone] | | [facility] | | [address] | | | - LABORATORY | | [...] [address] | [place] | [phone] | | [facility] | | [address] | | | - LABORATORY | | [...] [address] | [place] | [phone] | | [facility] | | [address] | | | - LABORATORY | | [...] [address] | [place] | [phone] | | [facility] | | [address] | | | - LABORATORY | | [...] + + + | K | 6.1 ()Comment: | 3.5 - 5.1 | [facility] [...] 2.41 (H) | 0.60 - 1.30 | [facility] | | | | | mg/dL | [facility] | | | | | | MEDICAL | | | | | | CENTER - | | | | | | LABORATORY | | + + + + + + | eGFR if not | 31 (L)Comment: | >=60 | [facility] | | | | GLOMERULAR FILTRATION | mL/min/1.73m2 | [facility] | | | NIGERIEN | RATE,ESTIMATED | | MEDICAL | | | | mL/min/1.44m3Qupc than | | CENTER - | | [...] 4.2 | 3.2 - 5.0 g/dL | [facility] | | | | | | ST. [...] [address] | [place] | [phone] | | [facility] | | [address] | | | - LABORATORY | | | | + + + + + CBC with Differential (10/03/2016 4:06 AM PDT) + + + + + + | Component | Value | Ref Range | Performed | Pathologist | | | | | At | Signature | + + + + + + | WBC | 10.7 | 4.0 - 11.0 K/uL | [facility] | | | | | [facility] | | | | | | MEDICAL | | | | | | CENTER - | | | | | | LABORATORY | | + + + + + + | RBC | 4.01 (L) | 4.30 - 5.70 [...] [address] | [place] | [phone] | | [facility] | | [address] | | | - LABORATORY | | [...] | Tobacco smoker | + + | Schizoaffective disorder, bipolar type, multiple episodes, currently in acute episode | | Schizoaffective disorder, unspecified condition | + + documented in this encounter Administered Medications + +--------+ +--------+------+------+ | Medication Order | MAR | Action | Dose | Rate | Site | | | Action | Date | | | | + +--------+ +--------+------+------+ | acetaminophen (TYLENOL) tablet | Given | 10/04/19 | 650 mg | | | | 650 mg 650 mg, Oral, EVERY | | 17 10:16 | | | | | HOURS PRN, Pain, or fever >= 38.3 | | PM PDT | | | | | C (101.5 F), Starting [facility] | | | | | | | [...] | | | | measurements. , Starting [facility] | | | | | | | [...] | | | | Blood Sugar, Starting [facility] 10/03/16 | | PM PDT | | [...] | | | | | dose on [facility] 10/03/16 at 0915 | | | | [...] | | | (after last modification) on [facility] | | | | | | | [...] | | | | | NPO, Daytime 2851-3731 Use NIGHT | | | | | | | DOSE for doses scheduled: | | | | | | | HS, 3AM, Nighttime 3200-1619, | | | | | | + [...] | | MEALS, First dose on [facility] 10/03/16 | | | | | | [...] | | | | TITRATED, Starting [facility] 10/03/16 at | | | | | [...] | | | | [facility] 10/03/16 at 0405 | | | | [...] AM PDT | | | | | [facility] 10/03/16 at 0915, If | | | [...] PDT | | | | | ONCE, [facility] 10/03/16 at 0405, For 1 | | [...] PM PDT | | | | | [facility] 10/03/16 at 0510 | | | | [...]
--- OUTSIDE RECORDS SUMMARY | ~2019-07-04 | XMS | Encounter Summary ---
Demographics + + + | Address | [address] | | | [place] [address] | + + + | Home Phone | | + + + | Preferred Language | Unknown | + + + | Marital Status | Single | + + + | Voodoo Affiliation | 1001 | + + + | Race | Unknown | + + + | Ethnic Group | Unknown | + + + Author + + + | Author | [facility] | | | and Ryana | + + + | Organization | [facility] | [...] Team Providers + +------+ + | Care Cell Room Operator Name | Role | Phone [...] + + | 05/07/ | Hospital | [facility] | Vicky Méndez | Diabetic | | 2017 - | Encounter | [facility] ICU [address] | MD Diane [address] | ketoacidosis without | | | | [place], | [address], | coma associated | | 05/09/ | | [place] [address] | [place] [address] | with type 1 diabetes | | 2017 | | [phone] | [phone] | mellitus (HCC) | | | | | | (Primary Dx); | | | | | Dougie Yin MD | Nausea; IDDM | | | | | [address] | (insulin dependent | | | | | [place], [place] | diabetes mellitus) | | | | | [address] | (HCC) | | | | | [...] might be different fr om the original. [place], [place] HOSPITALIST DISCHARGE SUMMARY Pt. Name/Age/: Joni Kwon 36 y.o. 1980 Date of Admission: 05/07/2017 Date of Discharge: 05/09/2017 Admitting Physician: Dougie Yin MD Primary Care Provider: DENIS Paul Discharging Physician: Dougie Yni MD DISCHARGE DIAGNOSES: There are no hospital [...] skin 3 times daily (with meals). [facility] insulin lispro 100 units/mL injection (pen) MODERATE [...] for meals and NIGHT for bedtime aka: [facility] COURSE: Please refer to the H&P [...] week. 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 Electronically signed by: Dougie Yin MD, 05/09/2017 8:42 [facility] Portions of this chart may have been created with Gigzolo voice recognition software. Occasi onal wrong-word or [...] be sent through Care Everywhere.Diabetic Ketoac idosis (Amharic)documented in this encounter Medications at Time of [...] might be different fr om the original. [place] HOSPITALIST PROGRESS NOTE Patient: Joni Kwon : 1980: Age: 36 y.o. MedRec: [id number] Admission date: 05/07/2017 Hospital day # : [...] Procedure Component Value Units Date/Time Culture, MRSA [[id number]] Collected: 05/07/17 8101 Order Status: Completed Lab Status: Final result [...] PPX: HSQ Dougie Yin MD 05/09/2017 7:57 [facility] Dougie Crawford MD - 05/08/2017 7:43 AM PST [facility] [place] HOSPITALIST PROGRESS NOTE Patient: Joni Kwon : 1980: Age: 36 y.o. MedRec: [id number] Admission date: 05/07/2017 Hospital day # : [...] significant change Confirmed by CARYN THORPE, HAWA ([id number]) on 05/08/2017 7:10:41 AM Basic Metabolic Panel [...] Procedure Component Value Units Date/Time Culture, MRSA [[id number]] Collected: 05/07/171730 Order Status: Sent Lab Status: [...] PPX: HSQ Dougie Yin MD 05/08/2017 7:43 [facility] Romelia Henry, Zac rmD - 05/07/2017 4:17 [...] and directions X Pharmacy list names: [facility] [place] [facility] [place] [facility] [employer] (Prescription Monitoring Program) X [employer] insurance reported [...] performed and electronically signed by Morenita García, Game Farm Supervisor 05/07 16:12 Reviewed by Romelia Valdez, PharmKosta [...] | | POC | | | [facility] | | | | | | [...] [address] | [place] | [phone] | | [facility] | | [address] | | | - LABORATORY | | [...] [address] | [place] | [phone] | | [facility] | | [address] | | | - LABORATORY | | [...] [address] | [place] | [phone] | | [facility] | | [address] | | | - LABORATORY | | [...] mL/min/1.73m2 | [facility] | | | [place] | RATE,ESTIMATED | | MEDICAL | | | | mL/min/1.55d2Dvix than | | CENTER - | | [...] | 8.4 | 8.3 - 10.5 | [facility] | | | | | mg/dL | [...] [address] | [place] | [phone] | | [facility] | | [address] | | | - LABORATORY | | [...] [address] | [place] | [phone] | | [facility] | | [address] | | | - LABORATORY | | [...] [address] | [place] | [phone] | | [facility] | | [address] | | | - LABORATORY | | [...] + | [facility] | [address] | [place] | [phone] | | [facility] | | [address] | | | - LABORATORY | | [...] mL/min/1.73m2 | [facility] | | | [place] | RATE,ESTIMATED | | MEDICAL | | | | mL/min/1.94z9Mpft than | | CENTER - | | [...] + | [facility] | [address] | [place] | [phone] | | [facility] | | [address] | | | - LABORATORY | | [...] | mL/min/1.73m2 | [facility] | | | [place] | RATE,ESTIMATED | | MEDICAL | | | | mL/min/1.68m8Uvhc than | | CENTER - | | [...] [address] | [place] | [phone] | | [facility] | | [address] | | | - LABORATORY | | [...] + | [facility] | [address] | [place] | [phone] | | [facility] | | [address] | | | - LABORATORY | | [...] [address] | [place] | [phone] | | [facility] | | [address] | | | - LABORATORY | | [...] [address] | [place] | [phone] | | [facility] | | [address] | | | - LABORATORY | | [...] [address] | [place] | [phone] | | [facility] | | [address] | | | - LABORATORY | | [...] [address] | [place] | [phone] | | [facility] | | [address] | | | - LABORATORY | | [...] | mL/min/1.73m2 | [facility] | | | [place] | RATE,ESTIMATED | | MEDICAL | | | | mL/min/1.04x5Wmux than | | CENTER - | | [...] [address] | [place] | [phone] | | [facility] | | [address] | | | - LABORATORY | | [...] [address] | [place] | [phone] | | [facility] | | [address] | | | - LABORATORY | | [...] [address] | [place] | [phone] | | [facility] | | [address] | | | - LABORATORY | | [...] [address] | [place] | [phone] | | [facility] | | [address] | | | - LABORATORY | | [...] (H) | 7 - 18 mg/dL | [facility] | | | | | | [facility] | | | | | | MEDICAL | | | | | | CENTER - | | | | | | LABORATORY | | + + + + + + | Creatinine | 0.97 | 0.60 - 1.30 | [facility] | | | | | mg/dL | [facility] | | | | | | MEDICAL | | | | | | CENTER - | | | | | | LABORATORY | | + + + + + + | eGFR if not | >60Comment: GLOMERULAR | >=60 | [facility] | | | | FILTRATION | mL/min/1.73m2 | [facility] | | | [place] | RATE,ESTIMATED | | MEDICAL | | | | mL/min/1.30f7Tvlx than | | CENTER - | | [...] + | [facility] | [address] | [place] | [phone] | | [facility] | | [address] | | | - LABORATORY | | [...] ST. | [address] | [place], [place] | [phone] | | [facility] | | [address] | | | - LABORATORY | | [...] + | [facility] | [address] | [place] | [phone] | | [facility] | | [address] | | | - LABORATORY | | [...] [address] | [place] | [phone] | | [facility] | | [address] | | | - LABORATORY | | [...] + | [facility] | [address] | [place] | [phone] | | [facility] | | [address] | | | - LABORATORY | | [...] [address] | [place] | [phone] | | [facility] | | [address] | | | - LABORATORY | | [...] [address] | [place] | [phone] | | [facility] | | [address] | | | - LABORATORY | | [...] + | [facility] | [address] | [place] | [phone] | | [facility] | | [address] | | | - LABORATORY | | [...] mL/min/1.73m2 | [facility] | | | [place] | RATE,ESTIMATED | | MEDICAL | | | | mL/min/1.74a5Jkgg than | | CENTER - | | [...] [address] | [place] | [phone] | | [facility] | | [address] | | | - LABORATORY | | [...] [address] | [place] | [phone] | | [facility] | | [address] | | | - LABORATORY | | [...] + | [facility] | [address] | [place] | [phone] | | [facility] | | [address] | | | - LABORATORY | | [...] [address] | [place] | [phone] | | [facility] | | [address] | | | - LABORATORY | | [...] | | GLOMERULAR FILTRATION | mL/min/1.73m2 | [facility] | | | [place] | RATE,ESTIMATED | | MEDICAL | | | | mL/min/1.85e5Mcol than | | CENTER - | | [...] [address] | [place] | [phone] | | [facility] | | [address] | | | - LABORATORY | | [...] + | [facility] | [address] | [place] | [phone] | | [facility] | | [address] | | | - LABORATORY | | [...] [address] | [place] | [phone] | | [facility] | | [address] | | | - LABORATORY | | [...] [address] | [place] | [phone] | | [facility] | | [address] | | | - LABORATORY | | [...] mL/min/1.73m2 | [facility] | | | [place] | RATE,ESTIMATED | | MEDICAL | | | | mL/min/1.58e4Rriw than | | CENTER - | | [...] [address] | [place] | [phone] | | [facility] | | [address] | | | - LABORATORY | | [...] [address] | [place] | [phone] | | [facility] | | [address] | | | - LABORATORY | | [...] | | | | HAWA RUBIN MD ([id number]) | | | | | | on [...] + | [facility] | [address] | [place] | [phone] | | [facility] | | [address] | | | - LABORATORY | | [...] + | [facility] | [address] | [place] | [phone] | | [facility] | | [address] | | | - LABORATORY | | [...] + | [facility] | [address] | [place] | [phone] | | [facility] | | [address] | | | - LABORATORY | | [...] [address] | [place] | [phone] | | [facility] | | [address] | | | - LABORATORY | | [...] mL/min/1.73m2 | [facility] | | | [place] | RATE,ESTIMATED | | MEDICAL | | | | mL/min/1.05y9Wpfr than | | CENTER - | | [...] [address] | [place] | [phone] | | [facility] | | [address] | | | - LABORATORY | | [...] [address] | [place] | [phone] | | [facility] | | [address] | | | - LABORATORY | | [...] [address] | [place] | [phone] | | [facility] | | [address] | | | - LABORATORY | | [...] ST. | [address] | [place], [place] | [phone] | | [facility] | | [address] | | | - LABORATORY | | | | + + + + + documented in this encounter Visit Diagnoses + + | Diagnosis | + + | Diabetic ketoacidosis without coma associated with type 1 diabetes mellitus (HCC) - | | Primary | + + | Nausea Nausea alone | + + | IDDM (insulin dependent diabetes mellitus) ([facility]) Type II or unspecified type diabetes | [...] | | | | First dose on [facility] 05/08/17 at | | | | [...] | | | | | | | [facility] 05/08/17 at 1200, [place] | | [...] | | | | | NPO, Daytime 0822-8450 Use NIGHT | | | | | | | DOSE for doses scheduled: | | | | | | | HS, 3AM, Nighttime 4591-3540, | | | | | | + [...] | | | MEALS, First dose on [facility] 05/08/17 | | | | | [...]
--- OUTSIDE RECORDS SUMMARY | ~2019-07-04 | XMS | Encounter Summary ---
Demographics + + + | Address | [address] | | | [place] [address] | + + + | Home Phone | | + + + | Preferred Language | Unknown | + + + | Marital Status | Single | + + + | Sabianism Affiliation | 1001 | + + + | Race | Unknown | + + + | Ethnic Group | Unknown | + + + Author + + + | Author | [facility] | | | and Ryana | + + + | Organization | [facility] | | | [...] Team Providers + +------+ + | Care Foundry Molder Name | Role | Phone | [...] | treatment not | | | | [place] [address] | | carried out due to | | | | [place] | | patient leaving | | | | [address] | | prior to being seen | | | | [phone] | | by health care | | [...] J?MRN: | | | | | | [id number] | | | [id number] | | | his | | | [...] | | | St. | | | [place] | | | y | | | [...] | | | St. | | | [place] | | | y H. | | [...] | | | St. | | | [place] | | | y H. | | [...] | | | St. | | | [place] | | | y H. | | [...] | | | St. | | | [place] | | | y H. | | [...] | | | St. | | | [place] | | | y H. | | [...] | | | St. | | | [place] | | | y | | | [...] | | | ext. | | | [address] | | | or go | | [...]
--- OUTSIDE RECORDS SUMMARY | ~2019-07-04 | XMS | Encounter Summary ---
Demographics + + + | Address | [address] | | | [place] [address] | + + + | Home Phone | | + + + | Preferred Language | Unknown | + + + | Marital Status | Single | + + + | Moravian Affiliation | 1001 | + + + | Race | Unknown | + + + | Ethnic Group | Unknown | + + + Author + + + | Author | [facility] | | | and Ryana | + + + | Organization | [facility] | | | [...] Team Providers + +------+ + | Care Endless Steamer Tender Name | Role | Phone | + +------+ + PCP | Unavailable | + +------+ + Encounter Details +--------+ + + + + | Date | Type | Department | Care Team | Description | +--------+ + + + + | 04/07/ | Hospital | [facility] | Ami Young | | | 2008 | Encounter | CONVERSION | A, [facility] [address] | | | | | [address] | [place], [place] | | | | [address] | [address] | | | | | [employer], [place] | [phone] | | | | | [address] | | | | | | [phone] | | | +--------+ + + + [...]
--- OUTSIDE RECORDS SUMMARY | ~2019-07-04 | XMS | Encounter Summary ---
Demographics + + + | Address | [address] | | | [place] [address] | + + + | Home Phone [...] Team Providers + +------+ + | Care Accounting Analyst Name | Role | Phone | [...] + + | 05/02/ | Education | [facility] | Ursula Haskins RN | Diabetic | | 2016 | | [facility] | [phone] | ketoacidosis without | | | | EDUCATION [address] | | coma associated | | | | [place], | | with type 1 diabetes | | | | [place] [address] | | mellitus (HCC) | | | | [phone] | | | +--------+ + + + [...]
--- OUTSIDE RECORDS SUMMARY | ~2019-07-04 | XMS | Encounter Summary ---
Demographics + + + | Address | [address] | | | [place] [address] | + + + | Home Phone [...] Team Providers + +------+ + | Care Tack Puller Machine Name | Role | Phone | + [...] + + | 09/27/ | Education | [facility] | Ursula Haskins RN | Diabetic | | 2017 | | [facility] | [phone] | ketoacidosis without | | | | EDUCATION [address] | | coma associated | | | | [place], | | with type 1 diabetes | | | | [place] [address] | | mellitus (HCC) | | | | [phone] | | (Primary Dx) | +--------+ + [...]
--- OUTSIDE RECORDS SUMMARY | ~2019-07-04 | XMS | Clinical Summary ---
Demographics + + + | Address | [address] | | | [place] [address] | + + + | Home Phone | | + + + | Preferred Language | Unknown | + + + | Marital Status | Single | + + + | Gnosticism Affiliation | 1001 | + + + | Race | Unknown | + + + | Ethnic Group | Unknown | + + + Author + + + | Author | [facility] | | | and Ryana | + + + | Organization | [facility] | | [...] Team Providers + +------+ + | Care Spanish Speaking Nanny Name | Role | Phone | + [...] | | | MD Reggie Balderrama, | ([facility]) (Primary Dx); | | 05/21/ | | | CHLOE Smith | Acute psychosis | | 2018 | | | Hosea Watson, | ([facility]); Marijuana | | | | | MD [...] complication | | | | | | ([facility]); | | | | | | Schizoaffective | | | | | | disorder, bipolar | | | | | | type ([facility]); Acute | | | | | | [...] J?MRN: | | | | | | [id number] | | | [id number] | | | riteri | | | [...] | | | St. | | | [facility] | | | y | | | [...] | | | St. | | | [facility] | | | y | | | [...] | | | St. | | | [facility] | | | y | | | Hospit | | | al | | | Patien | | | t is | | | curren | | | tly | | | establ | | | ished | | | with | | | St | | | [facility] | | | y | | | [...] St | | | | | | [facility] | | | y | | | [...] | | | St. | | | [facility] | | | y | | | [...] | | | St. | | | [facility] | | | y H. | | [...] | | | St. | | | [facility] | | | y H. | | [...] | | | St. | | | [facility] | | | y H. | | [...] | | | St. | | | [facility] | | | y H. | | [...] | | | St. | | | [facility] | | | y H. | | [...] | | | St. | | | [facility] | | | y H. | | [...] | | | MD | | | Band Leader | | | al | | | [...] | | | [phone] | | | [id number] | | | 95 | | | [...] | | POC | performed at [facility];888 | | LABORATORY | | | | [address];[place] | | | | | | [address] | | | | + + + + + + + + | Specimen | + + | | + + + + + + + | Performing | Address | City/State/Zipcode | Phone Number | | Organization | | | | + + + + + | [facility] | [address] | [place] [address] | [phone] | + + + + + Basic [...] | | | | | performed at [facility], [address] | | | | | [address], | | | | | | [place] [address] | | | | + + + + + + + + | Specimen | + + | Blood | + + + + + + + | Performing | Address | City/State/Zipcode | Phone Number | | Organization | | | | + + + + + | [facility] | [address] | [place] [address] | [phone] | + + + + + Potassium (05/20/2019 3:58 PM PST) + + + + + + | Component | Value | Ref Range | Performed | Pathologist | | | | | At | Signature | + + + + + + | K | 4.9Comment: Testing | 3.5 - 4.9 | [facility] | | | | performed at [facility];888 | mmol/L | LABORATORY | | | | [address];[place] | | | | | | [address] | | | | + + + + + + + + | Specimen | + + | Blood | + + + + + + + | Performing | Address | City/State/Zipcode | Phone Number | | Organization | | | | + + + + + | [facility] | [address] | [place] [address] | [phone] | + + + + + ECG [...] Testing | 65 - 99 mg/dL | [facility] | | | | performed at [facility];[address] | | LABORATORY | | | | [address];[place], [place] | | | | | | [address] | | | | + + + + + + + + | Specimen | + + | Blood | + + + + + + + | Performing | Address | City/State/Zipcode | Phone Number | | Organization | | | | + + + + + | [facility] | [address] | [place] [address] | [phone] | + + + + + Hemoglobin A1C (05/19/2019 3:06 PM PST) + + + + + + | Component | Value | Ref Range | Performed | Pathologist | | | | | At | Signature | + + + + + + | Hemoglobin | 10.2 (H)Comment: HbA1c | 4.0 - 6.0 % | [facility] | | | A1c | method [...] | 246 (H)Comment: | <154 mg/dL | [facility] | | | Average | Estimated Average | | LABORATORY | | | Glucose | Glucose calculated from | | | | | | hemoglobin A1c by use of | | | | | | the ADArecommended | | | | | | formula.Testing | | | | | | performed at [facility], [address] | | | | | | [facility], | | | | | | [place] [address] | | | | + + + + + + + + | Specimen | + + | Blood | + + + + + + + | Performing | Address | City/State/Zipcode | Phone Number | | Organization | | | | + + + + + | [facility] | [address] | [place] [address] | [phone] | + + + + + Blood [...] at | | | | | | [facility];[address] | [address];[place] [address] | | | | + + + + + + + + | Specimen | + + | | + + + + + + + | Performing | Address | City/State/Zipcode | Phone Number | | Organization | | | | + + + + + | [facility] | [address] | [place] [address] | [phone] | + + + + + Drugs [...] | | | | performed at [facility];[address] | | | | | | [address];[place] | | | | | | [address] | | | | + + + + + + + + | Specimen | + + | Urine | + + + + + + + | Performing | Address | City/State/Zipcode | Phone Number | | Organization | | | | + + + + + | [facility] | [address] | [place] [address] | [phone] | + + + + + Ketones, Serum (05/17/2019 10:54 PM PST) + + + + + + | Component | Value | Ref Range | Performed | Pathologist | | | | | At | Signature | + + + + + + | Ketones, | NEGATIVEComment: Testing | NEG | [facility] | | | Blood | performed at [facility];[address] | | LABORATORY | | | | [address];[place] | | | | | | [address] | | | | + + + + + + + + | Specimen | + + | Blood | + + + + + + + | Performing | Address | City/State/Zipcode | Phone Number | | Organization | | | | + + + + + | [facility] | [address] | [place] [address] | [phone] | + + + + + CBC [...] | | | Absolute | performed at [facility];[address] | K/uL | LABORATORY | | | | [address];[place], [place] | | | | | | [address] | | | | + + + + + + + + | Specimen | + + | Blood | + + + + + + + | Performing | Address | City/State/Zipcode | Phone Number | | Organization | | | | + + + + + | [facility] | [address] | [place] [address] | [phone] | + + + + + TSH (05/17/2019 10:54 PM PST) + + + + + + | Component | Value | Ref Range | Performed | Pathologist | | | | | At | Signature | + + + + + + | TSH | 1.314Comment: Testing | 0.450 - 5.100 | [facility] | | | | performed at [facility];[address] | uIU/mL | LABORATORY | | | | [address];[place], [place] | | | | | | [address] | | | | + + + + + + + + | Specimen | + + | Blood | + + + + + + + | Performing | Address | City/State/Zipcode | Phone Number | | Organization | | | | + + + + + | [facility] | [address] | [place] [address] | [phone] | + + + + + Ethanol (05/17/2019 10:54 PM PST) + + + + + + | Component | Value | Ref Range | Performed | Pathologist | | | | | At | Signature | + + + + + + | ALCOHOL, | <10Comment: Testing | <10 mg/dL | [facility] | | | SERUM/PLASM | performed at [facility];[address] | | LABORATORY | | | A | [address];[place], [place] | | | | | | [address] | | | | + + + + + + + + | Specimen | + + | Blood | + + + + + + + | Performing | Address | City/State/Zipcode | Phone Number | | Organization | | | | + + + + + | [facility] | [address] | [place] [address] | [phone] | + + + + + Acetaminophen [...] | | en, S | performed at [facility];888 | ug/mL | LABORATORY | | | | [address];[place], [place] | | | | | | [address] | | | | + + + + + + + + | Specimen | + + | Blood | + + + + + + + | Performing | Address | City/State/Zipcode | Phone Number | | Organization | | | | + + + + + | [facility] | [address] | [place] [address] | [phone] | + + + + + Salicylate Level (05/17/2019 10:54 PM PST) + + + + + + | Component | Value | Ref Range | Performed | Pathologist | | | | | At | Signature | + + + + + + | Salicylate, | <3.0Comment: Testing | 2.8 - 20.0 | [facility] | | | mg/dL | performed at [facility];888 | mg/dL | LABORATORY | | | | [address];[place] | | | | | | [address] | | | | + + + + + + + + | Specimen | + + | Blood | + + + + + + + | Performing | Address | City/State/Zipcode | Phone Number | | Organization | | | | + + + + + | [facility] | [address] | [place] [address] | [phone] | + + + + + Comprehensive [...] | | | | performed at [facility];[address] | | | | | | [address];[place], [place] | | | | | | [address] | | | | + + + + + + + + | Specimen | + + | Blood | + + + + + + + | Performing | Address | City/State/Zipcode | Phone Number | | Organization | | | | + + + + + | [facility] | [address] | [place] [address] | [phone] | + + + + + from [...] | [employer] | [employer] | [id number] | 01/22/20 | [phone] | | Medica | | MEDICAID HMO | HEALTH | | 16-Pre | 1 | | id | | | MDCD | | sent | | | | | | [place]MO [place] | | | | | | + +--------+ +--------+ +---------+--------+ | [employer] | [employer] | [id number] | 05/17/ | [phone] | | Medica | | MEDICAID HMO [...] lisa | | | 9 (Home) | [address] | + +--------+ +--------+ + + | Joni Kwon | Person | Self | [birth year] | | [address] | | [place] | al/Fam | | 1981 | [phone] | [address] [place], [place] | | | lisa | | | 9 (Home) | [address] | + +--------+ +--------+ + + | Joni Kwon | Mental | Self | [birth year] | | [address] | | [place] | | | 1981 | [phone] | [address] [place] | | | Health | | | 9 (Home) | [address] | + +--------+ +--------+ + + Advance Directives + + + + + | Type | Date Recorded | Patient | Explanation | | | | Rag Production Worker | | + + + + + | Power of | | | | | Exercise Equipment Specialist | | | | + + + [...]
--- OUTSIDE RECORDS SUMMARY | ~2019-07-04 | XMS | Encounter Summary ---
Demographics + + + | Address | [address] | | | [place] [address] | + + + | Home Phone | | + + + | Preferred Language | Unknown | + + + | Marital Status | Single | + + + | Lutheran Affiliation | 1001 | + + + | Race | Unknown | + + + | Ethnic Group | Unknown | + + + Author + + + | Author | [facility] | | | and Ryana | + + + | Organization | [facility] | | | [...] Providers + +------+ + | Care Health And Safety Trainer Name | Role | Phone | + +------+ + PCP | Unavailable | + +------+ + Encounter Details +--------+ + + + + | Date | Type | Department | Care Team | Description | +--------+ + + + + | 03/05/ | [facility] | [facility] | Abhi Berger | | | 2003 | Encounter | FAMILY MEDICINE 120 | MD [address] | | | | | [address] [place] | [place], [place] | | | | | [place] [address] | [address] | | | | | [phone] | | | +--------+ + + + [...]
--- OUTSIDE RECORDS SUMMARY | ~2019-07-04 | XMS | Encounter Summary ---
Demographics + + + | Address | [address] | | | [place] [address] | + + + | Home Phone [...] Team Providers + +------+ + | Care Account Processor Name | Role | Phone | + +------+ + PCP | Unavailable | + +------+ + Encounter Details +--------+ + + + + | Date | Type | Department | Care Team | Description | +--------+ + + + + | 03/05/ | [facility] | [place] | Abhi Berger | | | 2003 | Encounter | FAMILY MEDICINE 120 | MD [address] | | | | | [address] | [place], [place] | | | | | [place] [address] | [address] | | | | | [phone] | | | +--------+ + + + [...]
--- OUTSIDE RECORDS SUMMARY | ~2019-07-04 | XMS | Encounter Summary ---
Demographics + + + | Address | [address] | | | [place] [address] | + + + | Home Phone [...] + + + | Author | [facility] | | | and Ryana | + + + | Organization | [facility] | | | [...] Team Providers + +------+ + | Care Spa Director/Finance Name | Role | Phone | + +------+ + PCP | Unavailable | + +------+ + Encounter Details +--------+ + + + + | Date | Type | Department | Care Team | Description | +--------+ + + + + | 03/30/ | Hospital | [facility] | Brooke Kemp | | | 2008 | Encounter | HOSPITAL EMERGENCY | [address] | | | | | [place] [address] | [address], | | | | | [place], [place] | [place] [address] | | | | | [address] | [phone] | | | | | [phone] | | | +--------+ + + + [...]
--- OUTSIDE RECORDS SUMMARY | ~2019-07-04 | XMS | Encounter Summary ---
Demographics + + + | Address | [address] | | | [place] [address] | + + + | Home Phone | | + + + | Preferred Language | Unknown | + + + | Marital Status | Single | + + + | Mormonism Affiliation | 1001 | + + + | Race | Unknown | + + + | Ethnic Group | Unknown | + + + Author + + + | Author | [facility] | | | and Ryana | + + + | Organization | [facility] | | | [...] + +------+ + | Care Director Of Cardiology Service Line Name | Role | Phone | + +------+ + PCP | Unavailable | + +------+ + Encounter Details +--------+ + + + + | Date | Type | Department | Care Team | Description | +--------+ + + + + | 12/18/ | Hospital | [facility] | Mohsen Carranza | | | 1999 | Encounter | H[facility] [address] MD Need updated | | | | | [place] | address | | | | | [address] | | | | | | [phone] | | | +--------+ + + + [...]
--- OUTSIDE RECORDS SUMMARY | ~2019-07-04 | XMS | Encounter Summary ---
Demographics + + + | Address | [address] | | | [place] [address] | + + + | Home Phone [...] Providers + +------+ + | Care Office Helper Clerical Name | Role | Phone | + +------+ + PCP | Unavailable | + +------+ + Encounter Details +--------+ + + + + | Date | Type | Department | Care Team | Description | +--------+ + + + + | 03/30/ | Hospital | [facility] | Brooke Kemp | | | 2008 | Encounter | HOSPITAL EMERGENCY | [address] | | | | | [place] [address] | [address] [employer], | | | | | [place], [place] | [place] [address] | | | | | [address] | [phone] | | | | | [phone] | | | +--------+ + + + [...]
--- OUTSIDE RECORDS SUMMARY | ~2019-07-04 | XMS | Encounter Summary ---
Demographics + + + | Address | [address] | | | [place] [address] | + + + | Home Phone [...] + + + | Author | [facility] | | | and Ryana | + + + | Organization | [facility] | | | [...] Team Providers + +------+ + | Care Land Law Examiner Name | Role | Phone | [...] + + | 05/02/ | Education | [facility] | Ursula Haskins RN | Diabetic | | 2016 | | [facility] | [phone] | ketoacidosis without | | | | EDUCATION [address] | | coma associated | | | | [place], | | with type 1 diabetes | | | | [place] [address] | | mellitus (HCC) | | | | [phone] | | | +--------+ + + + [...]
--- OUTSIDE RECORDS SUMMARY | ~2019-07-04 | XMS | Encounter Summary ---
Demographics + + + | Address | [address] | | | [place] [address] | + + + | Home Phone [...] Team Providers + +------+ + | Care Environmental Analyst Name | Role | Phone | + +------+ + PCP | Unavailable | + +------+ + Encounter Details +--------+ + + + + | Date | Type | Department | Care Team | Description | +--------+ + + + + | 02/05/ | Hospital | [facility] | Cody Kan | Diabetic | | 2016 - | Encounter | [facility] | Iglesia Mccall MD [address] | ketoacidosis without | | | | CARE FLOOR [address] | coma associated | | 02/07/ | | [address] | [place] [address] | with type 2 diabetes | | 2016 | | [place], [place] | [phone] | mellitus (HCC) | | | | [id number] | | | | | | [phone] | | | +--------+ + + + [...] 1427 Date of Service: 02/08/16935 Status: Signed Systems Integration Advisor: Lanre Pan MD (Physician) Related Notes: Original Note by Lanre Pan MD (Physician) filed at 02/08/16 1015 [facility] Service: Hospitalist Discharge Summary Date of [...] episodes of DKA, and recently moved to [place], [place]. The patient typically takes Lantus pens, though according to the patie nt he has not been storing them appropriately and may have left them out of the fridge for a prolonged period, and the patient indicates that he may have missed a few doses. He began f ling ill a few days prior to his admission. He was initially seen at [place] emergency department and diagnosed with diabetic ketoaci [...] to schedule appointment with the PCP in [place]. DISCHARGE DIAGNOSES 1. Diabetic ketoacidosis in a type 1 diabetic. 2. History of reported schizophrenia, stable. 3. History of tobaccoism. Patient was counseled on tobacco cessation. 4. Electrolyte imbalance, secondary to diabetic ketoacidosis treatment. Past Medical History Diagnosis Date Schizophrenia (HCC) 02/06/2016 Attention-deficit hyperactivity disorder, predominantly hyperactive type 02/06/2016 Depression 02/06/2016 Leukocytosis (leucocytosis) 02/06/2016 Diabetes mellitus type I ([facility]) History reviewed. No pertinent past surgical [...] file. Follow up: Margarita Gonzales MD [address] [place] [address] follow up for diabetes Medication List CONTINUE [...] 02/08/161254 Date of Service: 02/08/161254 Status: Signed Systems Integration Advisor: Rosario Ocampo RN (Registered Nurse) Discharge instructions given, all questions answered, patient/acute care clinical nurse specialist expresses understa nding. Prescriptions given. IV removed. VSS. Patient left ambulatory to a private residence with family onver danie Transaction, Provider Unknown - 02/08/2016 9:52 AM PDT Case Management by Rhea Kaiser RN at 02/08/16 0952 Author: Rhea Kaiser RN Service: (none) Author Type: Registered Nurse Filed: 02/08/16 1000 Date of Service: 02/08/16951 Status: Addendum Systems Integration Advisor: Rhea Kaiser RN (Registered Nurse) Related Notes: Original Note by Rhea Kaiser RN (Registered Nurse) filed at 02/08/16 0 955 Discharge Planning: CM contacted [facility] [place] [phone], staff noted Shilpi scott is assigned to his case, left VM message with call back number for counselor to contact CM . Discharge Planning: spoke to CM Shilpi Mirza return call, advised [facility] office will contac t patient this [...] Date of Service: 02/08/16 0640 Status: Signed Systems Integration Advisor: Gayle Gomez RN (Registered Nurse) No changes [...] Date of Service: 08/17/16 1820 Status: Addendum Systems Integration Advisor: Aracelis Strong RN (Registered Nurse) Related Notes: [...] apologetic he did not call for b Giveo sugar check first. Post prandial sugar 298. 8 units insulin administered. Currently amb [facility]. Report given to ERIKA Araujo. Aracelis Strong RN onver danie Transaction, Provider Unknown - 02/07/2016 3:27 PM PDT Case Management by Rhea Kaiser RN at 02/07/16 1527 Author: Rhea Kaiser RN Service: (none) Author Type: Registered Nurse Filed: 02/07/16 0428 Date of Service: 02/07/16 1527 Status: Addendum Systems Integration Advisor: Rhea Kaiser RN (Registered Nurse) Related Notes: Original Note by Rhea Kaiser RN (Registered Nurse) filed at 02/07/16 1 527 02/07/16 8176 Discharge Planning Evaluation Admitting Diagnosis diabetic ketoacidosis without coma assoc w/ type I DM Readmission No Living Arrangements Alone Support Systems Parent Type of Residence Private residence Independent with ADL's Yes Independent with Mobility Yes Home Care Services No Caregiver after Discharge Other (comment) (spoke with patient and with mom Blossom [phone], patient resides with mom, sleeps on the couch, patient and mom would like patient to live in assisted living ) Mental Status Oriented Power of Superintendent Operations Division No Anticipated Discharge Plan Post Acute Care [...] Home (CM will check for [facility] in [facility]) Met with: CM spoke with patient and patient mother (with pt permission) to discuss discharg e planning, Pt is a 35 y.o., male, whom arrived via life flight to [facility] from [facility] due to DKA. Patient with dx of DM type I, schizophrenia. Patient resided in [facility] for 5 years. Patient and patient mother Blossom [phone] would like leonardo ent to live independent of parent in [facility] or assisted living in [facility]. CM to contact Brody with [facility] in [place] for information concerning patient. Patient states he [...] resources utilized / needed: patient is requesting half-way placement and help to get his life back on track Assistance in transportation: patient's mother will transport Blossom [phone] Identification of any specific education / training: [...] Date of Service: 02/07/16 1001 Status: Signed Systems Integration Advisor: Lanre Pan MD (Physician) [facility] Service: Hospitalist Progress Note Hospital Day: LOS: 1 day Post-Op Day: * No surgery found * SUBJECTIVE Patient Summary: admission H and P Dr. Kan:"The patient is a 35 y.o. male wi th significant past medical history of schizophrenia, patient states last admission to [facility] was 2 years ago, ADHD, depression, type I diabetes mellitus diagnos ed at age 4 according to the patient and about 3 episodes of admissions for DKA since he mov ed to [place]. Per Dr. Dunaway, [facility] emergency room the patient and had a [...] elayed to me by Dr. Dunaway of [facility] ER, had about a week prior to [...] could not answer questions according to [facility] physician, labs showed he was in DKA, he was given 2 L of IV fluid bolus w sandra there, subsequently hospitalist and ICU attending was called at [facility] for a transfer of patient, Dr. Vega recommended giving the patient bicarbonate and potassium which was done , the patient was also in the process of being given 2 more liters of normal saline and was transferred at acute care floor in [facility]. By the time admitting hospitalist [...] we will transition off insulin drip over [facility] htime., Appreciate Dr. Gonzales input, Levemir 10 [...] 0941 Date of Service: 02/07/16939 Status: Signed Systems Integration Advisor: Darcy Niño RD (Registered Dietitian) 02/07/16 0931 [...] Estimated Energy Needs Total Energy Estimated Needs 3270-7662 kcal/day Method for Estimating Needs 25-30 kcal/kg [...] 02/07/16604 Date of Service: 02/07/16600 Status: Signed Systems Integration Advisor: Gayle Gomez RN (Registered Nurse) No changes [...] (none) Author Type: Registered Nurse Filed: 02/06/16 9323 Date of Service: 02/06/161621 Status: Signed Systems Integration Advisor: Jace Yanez RN (Registered Nurse) Pts mother, Blossom, came by hospital to see son and will head back to [place]. She stat es that pts schizophrenia started at age 19 or 20, and that pt often thinks he is other peop le (ie, TuPa), and often mixes fiction with reality. [facility] [place] [facility] on [facility] the last 5 years, and has been in [place] since September. [employer] has been working to find him placement [...] | | Fingerstick | performed at [facility];[address] | | LAB | | | | [address];[place] | | | | | | [address] | | | | + + + [...] | | Fingerstick | performed at [facility];[address] | | LAB | | | | [address];[place] | | | | | | [address] | | | | + + + [...] EXTERNAL | | | | performed at [facility], [address] | K/uL | LAB | | | | [address], | | | | | | [place] [address] | | | | + + + + + + | RED CELL | 3.53 (L)Comment: Testing | 4.20 - 5.70 | EXTERNAL | | | COUNT | performed at [facility], [address] | M/uL | LAB | | | | [address], | | | | | | [place] [address] | | | | + + + + + + | Hgb | 11.5 (L)Comment: Testing | 13.2 - 17.0 | EXTERNAL | | | | performed at [facility], [address] | g/dL | LAB | | | | [address], | | | | | | [place] [address] | | | | + + + + + + | Hematocrit, | 32.3 (L)Comment: Testing | 39.0 - 50.0 % | EXTERNAL | | | POC | performed at [facility], [address] | | LAB | | | | [address], | | | | | | [place] [address] | | | | + + + + + + | MCV | 91.6Comment: Testing | 80.0 - 100.0 fl | EXTERNAL | | | | performed at [facility], [address] | | LAB | | | | [address], | | | | | | [place] [address] | | | | + + + + + + | MCH | 32.6Comment: Testing | 27.0 - 34.0 pg | EXTERNAL | | | | performed at [facility], [address] | | LAB | | | | [address], | | | | | | [place] [address] | | | | + + + + + + | MCHC | 35.6 (H)Comment: Testing | 32.0 - 35.5 | EXTERNAL | | | | performed at [facility], [address] | g/dL | LAB | | | | [address], | | | | | | [place] [address] | | | | + + + + + + | RDW-CV | 45.1Comment: Testing | 37 - 53 fl | EXTERNAL | | | | performed at [facility], [address] | | LAB | | | | [address], | | | | | | [place] [address] | | | | + + + + + + | Platelet | 218Comment: Testing | 150 - 400 K/uL | EXTERNAL | | | Count | performed at [facility], [address] | | LAB | | | Plasma | [address], | | | | | | [place] [address] | | | | + + + + + + | MPV | 7.6Comment: Testing | fl | EXTERNAL | | | | performed at [facility], [address] | | LAB | | | | [address], | | | | | | [place] [address] | | | | + + + [...] EXTERNAL | | | | performed at [facility], [address] | | LAB | | | | [address], | | | | | | [place] [address] | | | | + + + [...] EXTERNAL | | | | performed at [facility], [address] | | LAB | | | | [address], | | | | | | [place] [address] | | | | + + + [...] | | | | | [place] [address] | | | | + + + + + + | K | 3.2 (L)Comment: Testing | 3.5 - 4.9 | EXTERNAL | | | | performed at [facility], [address] | mmol/L | LAB | | | | [address], | | | | | | [place] [address] | | | | + + + + + + | Cl | 100Comment: Testing | 99 - 109 mmol/L | EXTERNAL | | | | performed at [facility], [address] | | LAB | | | | [address], | | | | | | [place], [place] [address] | | | | + + + + + + | CO2 | 22 (L)Comment: Testing | 23 - 32 mmol/L | EXTERNAL | | | | performed at [facility], [address] | | LAB | | | | [address], | | | | | | [place] [address] | | | | + + + + + + | Anion Gap | 14Comment: Testing | 5 - 20 mmol/L | EXTERNAL | | | | performed at [facility], [address] | | LAB | | | | [address], | | | | | | [place] [address] | | | | + + + + + + | Glucose, | 282 (H)Comment: Testing | 65 - 99 mg/dL | EXTERNAL | | | Fasting | performed at [facility], [address] | | LAB | | | | [address], | | | | | | [place] [address] | | | | + + + + + + | BUN | 15Comment: Testing | 8 - 25 mg/dL | EXTERNAL | | | | performed at [facility], [address] | | LAB | | | | [address], | | | | | | [place] [address] | | | | + + + + + + | Creatinine | 0.8Comment: Testing | 0.70 - 1.30 | EXTERNAL | | | | performed at [facility], [address] | mg/dL | LAB | | | | [address], | | | | | | [place] [address] | | | | + + + + + + | BUN/Creatin | 19Comment: Testing | | EXTERNAL | | | ine Ratio | performed at [facility], [address] | | LAB | | | | [address], | | | | | | [place] [address] | | | | + + + + + + | Calcium | 7.7 (L)Comment: Testing | 8.5 - 10.5 | EXTERNAL | | | | performed at [facility], [address] | mg/dL | LAB | | | | [address], | | | | | | [place] [address] | | | | + + + + + + | Protein, | 4.8 (L)Comment: Testing | 6.3 - 8.2 g/dL | EXTERNAL | | | Total | performed at [facility], [address] | | LAB | | | | [address], | | | | | | [place] [address] | | | | + + + + + + | Albumin | 2.3 (L)Comment: Testing | 3.6 - 5.0 g/dL | EXTERNAL | | | | performed at [facility], [address] | | LAB | | | | [address], | | | | | | [place] [address] | | | | + + + + + + | Globulin | 2.5Comment: Testing | 1.3 - 4.9 g/dL | EXTERNAL | | | | performed at [facility], [address] | | LAB | | | [address], | | | | | | [place] [address] | | | | + + + + + + | A/G Ratio | 0.9 (L)Comment: Testing | 1.0 - 2.4 | EXTERNAL | | | | performed at [facility], [address] | | LAB | | | | [address], | | | | | | [place] [address] | | | | + + + + + + | Bilirubin | 0.2Comment: Testing | 0.1 - 1.5 mg/dL | EXTERNAL | | | Total | performed at [facility], [address] | | LAB | | | | [address], | | | | | | [place] [address] | | | | + + + + + + | ALP, | 87Comment: Testing | 35 - 115 U/L | EXTERNAL | | | External | performed at [facility], [address] | | LAB | | | | [address], | | | | | | [place] [address] | | | | + + + + + + | AST | 15Comment: Testing | 10 - 45 U/L | EXTERNAL | | | | performed at [facility], [address] | | LAB | | | | [address], | | | | | | [place] [address] | | | | + + + + + + | ALT | 17Comment: Testing | 10 - 65 U/L | EXTERNAL | | | | performed at [facility], [address] | | LAB | | | | [address], | | | | | | [place] [address] | | | | + + + [...] | | | | | | [place] [address] | | | | + + + [...] | | Fingerstick | performed at [facility];[address] | | LAB | | | | [address];[place] | | | | | | [address] | | | | + + + [...] | | | | performed at [facility];[address] | | LAB | | | | [facility], [place] | | | | | | [address] | | | | + + + [...] | | | | performed at [facility];[address] | | LAB | | | | [address];[place] | | | | | | [address] | | | | + + + [...] | | | | performed at [facility];[address] | mmol/L | LAB | | | | [address];[place] | | | | | | [address] | | | | + + + + + + | K | 3.8Comment: Testing | 3.5 - 4.9 | EXTERNAL | | | | performed at [facility];[address] | mmol/L | LAB | | | | [address];[place] | | | | | | [address] | | | | + + + + + + | Cl | 99Comment: Testing | 99 - 109 mmol/L | EXTERNAL | | | | performed at [facility];[address] | | LAB | | | | [address];[place] | | | | | | [address] | | | | + + + + + + | CO2 | 21 (L)Comment: Testing | 23 - 32 mmol/L | EXTERNAL | | | | performed at [facility];[address] | | LAB | | | | [address];[place] | | | | | | [address] | | | | + + + + + + | Anion Gap | 13Comment: Testing | 5 - 20 mmol/L | EXTERNAL | | | | performed at [facility];[address] | | LAB | | | | [address];[place] | | | | | | [address] | | | | + + + + + + | Glucose, | 241 (H)Comment: Testing | 65 - 99 mg/dL | EXTERNAL | | | Fasting | performed at [facility];[address] | | LAB | | | | [address];[place] | | | | | | [address] | | | | + + + + + + | BUN | 10Comment: Testing | 8 - 25 mg/dL | EXTERNAL | | | | performed at [facility];[address] | | LAB | | | | [address];[place] | | | | | | [address] | | | | + + + + + + | Creatinine | 0.95Comment: Testing | 0.70 - 1.30 | EXTERNAL | | | | performed at [facility];[address] | mg/dL | LAB | | | | [address];[place] | | | | | | [address] | | | | + + + + + + | BUN/Creatin | 10Comment: Testing | | EXTERNAL | | | ine Ratio | performed at [facility];[address] | | LAB | | | | [address];[place] | | | | | | [address] | | | | + + + + + + | Calcium | 7.9 (L)Comment: Testing | 8.5 - 10.5 | EXTERNAL | | | | performed at [facility];[address] | mg/dL | LAB | | | | [address];[place] | | | | | | [address] | | | | + + + [...] | | | | | at [facility];[address] [place] [address] | | | | | | [facility];[place] [address] | | | | + + + [...] | | Fingerstick | performed at [facility];[address] | | LAB | | | | [address];[place], [place] | | | | | | [address] | | | | + + + [...] | | | | performed at [facility];[address] | | LAB | | | | [address];[place] | | | | | | [address] | | | | + + + [...] | | | | performed at [facility];[address] | | | | | | [address];[place], [place] | | | | | | [address] | | | | + + + [...] | | | | performed at [facility];[address] | mmol/L | LAB | | | | [address];[place] | | | | | | [address] | | | | + + + + + + | K | 3.8Comment: SLT | 3.5 - 4.9 | EXTERNAL | | | | HEMOLYSISTesting | mmol/L | LAB | | | | performed at [facility];[address] | | | | | | [address];[place] | | | | | | [address] | | | | + + + + + + | Cl | 102Comment: Testing | 99 - 109 mmol/L | EXTERNAL | | | | performed at [facility];[address] | | LAB | | | | [address];[place] | | | | | | [address] | | | | + + + + + + | CO2 | 20 (L)Comment: Testing | 23 - 32 mmol/L | EXTERNAL | | | | performed at [facility];[address] | | LAB | | | | [address];[place] | | | | | | [address] | | | | + + + + + + | Anion Gap | 12Comment: Testing | 5 - 20 mmol/L | EXTERNAL | | | | performed at [facility];[address] | | LAB | | | | [address];[place] | | | | | | [address] | | | | + + + + + + | Glucose, | 250 (H)Comment: Testing | 65 - 99 mg/dL | EXTERNAL | | | Fasting | performed at [facility];[address] | | LAB | | | | [address];[place] | | | | | | [address] | | | | + + + + + + | BUN | 8Comment: Testing | 8 - 25 mg/dL | EXTERNAL | | | | performed at [facility];[address] | | LAB | | | | [address];[place] | | | | | | [address] | | | | + + + + + + | Creatinine | 0.83Comment: Testing | 0.70 - 1.30 | EXTERNAL | | | | performed at [facility];[address] | mg/dL | LAB | | | | [address];[place] | | | | | | [address] | | | | + + + + + + | BUN/Creatin | 10Comment: Testing | | EXTERNAL | | | ine Ratio | performed at [facility];[address] | | LAB | | | | [address];[place] | | | | | | [address] | | | | + + + + + + | Calcium | 7.8 (L)Comment: Testing | 8.5 - 10.5 | EXTERNAL | | | | performed at [facility];[address] | mg/dL | LAB | | | | [address];[place], [place] | | | | | | [address] | | | | + + + [...] | | | | | at [facility];[address];[place] [address] | | | | + + + [...] | | Fingerstick | performed at [facility];[address] | | LAB | | | | [address];[place] | | | | | | [address] | | | | + + + [...] | | | | performed at [facility];[address] | | LAB | | | | [address];[place], [place] | | | | | | [address] | | | | + + + [...] | | | | performed at [facility] | | LAB | | | | [facility];[place], [place] | | | | | | [address] | | | | + + + [...] | | | | performed at [facility];[address] | mmol/L | LAB | | | | [address];[place] | | | | | | [address] | | | | + + + + + + | K | 3.3 (L)Comment: Testing | 3.5 - 4.9 | EXTERNAL | | | | performed at [facility];[address] | mmol/L | LAB | | | | [address];[place] | | | | | | [address] | | | | + + + + + + | Cl | 106Comment: Testing | 99 - 109 mmol/L | EXTERNAL | | | | performed at [facility];[address] | | LAB | | | | [address];[place] | | | | | | [address] | | | | + + + + + + | CO2 | 16 (L)Comment: Testing | 23 - 32 mmol/L | EXTERNAL | | | | performed at [facility];[address] | | LAB | | | | [address];[place] | | | | | | [address] | | | | + + + + + + | Anion Gap | 14Comment: Testing | 5 - 20 mmol/L | EXTERNAL | | | | performed at [facility];[address] | | LAB | | | | [address];[place] | | | | | | [address] | | | | + + + + + + | Glucose, | 340 (H)Comment: Testing | 65 - 99 mg/dL | EXTERNAL | | | Fasting | performed at [facility];[address] | | LAB | | | | [address];[place] | | | | | | [address] | | | | + + + + + + | BUN | 7 (L)Comment: Testing | 8 - 25 mg/dL | EXTERNAL | | | | performed at [facility];[address] | | LAB | | | | [address];[place] | | | | | | [address] | | | | + + + + + + | Creatinine | 0.70Comment: Testing | 0.70 - 1.30 | EXTERNAL | | | | performed at [facility];[address] | mg/dL | LAB | | | | [address];[place] | | | | | | [address] | | | | + + + + + + | BUN/Creatin | 10Comment: Testing | | EXTERNAL | | | ine Ratio | performed at [facility];[address] | | LAB | | | | [address];[place] | | | | | | [address] | | | | + + + + + + | Calcium | 6.9 (L)Comment: Testing | 8.5 - 10.5 | EXTERNAL | | | | performed at [facility];[address] | mg/dL | LAB | | | | [address];[place] | | | | | | [address] | | | | + + + [...] | | | | | at [facility];[address];[place] [address] | | | | + + + [...] | | Fingerstick | performed at [facility];[address] | | LAB | | | | [address];[place], [place] | | | | | | [address] | | | | + + + [...] | | Fingerstick | performed at [facility];[address] | | LAB | | | | [address];[place] | | | | | | [address] | | | | + + + [...] | | Fingerstick | performed at [facility];[address] | | LAB | | | | [address];[place] | | | | | | [address] | | | | + + + [...] | | Fingerstick | performed at [facility];[address] | | LAB | | | | [address];[place] | | | | | | [address] | | | | + + + [...] | | | | performed at [facility];[address] | | LAB | | | | [address];[place], [place] | | | | | | [address] | | | | + + + [...] | | | | performed at [facility];[address] | | LAB | | | | [address];[place] | | | | | | [address] | | | | + + + [...] | | | | performed at [facility];[address] | mmol/L | LAB | | | | [address];[place] | | | | | | [address] | | | | + + + + + + | K | 3.1 (L)Comment: Testing | 3.5 - 4.9 | EXTERNAL | | | | performed at [facility];[address] | mmol/L | LAB | | | | [address];[place] | | | | | | [address] | | | | + + + + + + | Cl | 107Comment: Testing | 99 - 109 mmol/L | EXTERNAL | | | | performed at [facility];[address] | | LAB | | | | [address];[place] | | | | | | [address] | | | | + + + + + + | CO2 | 16 (L)Comment: Testing | 23 - 32 mmol/L | EXTERNAL | | | | performed at [facility];[address] | | LAB | | | | [address];[place] | | | | | | [address] | | | | + + + + + + | Anion Gap | 13Comment: Testing | 5 - 20 mmol/L | EXTERNAL | | | | performed at [facility];[address] | | LAB | | | | [address];[place] | | | | | | [address] | | | | + + + + + + | Glucose, | 173 (H)Comment: Testing | 65 - 99 mg/dL | EXTERNAL | | | Fasting | performed at [facility];[address] | | LAB | | | | [address];[place] | | | | | | [address] | | | | + + + + + + | BUN | 7 (L)Comment: Testing | 8 - 25 mg/dL | EXTERNAL | | | | performed at [facility];[address] | | LAB | | | | [address];[place] | | | | | | [address] | | | | + + + + + + | Creatinine | 0.63 (L)Comment: Testing | 0.70 - 1.30 | EXTERNAL | | | | performed at [facility];[address] | mg/dL | LAB | | | | [address];[place] | | | | | | [address] | | | | + + + + + + | BUN/Creatin | 11Comment: Testing | | EXTERNAL | | | ine Ratio | performed at [facility];[address] | | LAB | | | | [address];[place] | | | | | | [address] | | | | + + + + + + | Calcium | 7.2 (L)Comment: Testing | 8.5 - 10.5 | EXTERNAL | | | | performed at [facility];888 | mg/dL | LAB | | | | [facility];[place], [place] | | | | | | [address] | | | | + + + [...] | | | | | at [facility];[address];[place] [address] | | | | + + + [...] | | Fingerstick | performed at [facility] | | LAB | | | | [address];[place] | | | | | | [address] | | | | + + + [...] | | Fingerstick | performed at [facility];888 | | LAB | | | | [address];[place], [place] | | | | | | [address] | | | | + + + [...] | | Fingerstick | performed at [facility];888 | | LAB | | | | [address];[place] | | | | | | [address] | | | | + + + [...] + + | Historically converted procedure from [facility] Epic environment | EXTERNAL LAB | [...] | | Fingerstick | performed at [facility];[address] | | LAB | | | | [address];[place], [place] | | | | | | [address] | | | | + + + [...] EXTERNAL | | | | performed at [facility], [address] | K/uL | LAB | | | | [address], | | | | | | [place] [address] | | | | + + + + + + | RED CELL | 3.17 (L)Comment: Testing | 4.20 - 5.70 | EXTERNAL | | | COUNT | performed at [facility], [address] | M/uL | LAB | | | | [address], | | | | | | [place] [address] | | | | + + + + + + | Hgb | 10.2 (L)Comment: Testing | 13.2 - 17.0 | EXTERNAL | | | | performed at [facility], [address] | g/dL | LAB | | | | [address], | | | | | | [place] [address] | | | | + + + + + + | Hematocrit, | 29.6 (L)Comment: Testing | 39.0 - 50.0 % | EXTERNAL | | | POC | performed at [facility], [address] | | LAB | | | | [address], | | | | | | [place] [address] | | | | + + + + + + | MCV | 93.3Comment: Testing | 80.0 - 100.0 fl | EXTERNAL | | | | performed at [facility], [address] | | LAB | | | | [address], | | | | | | [place] [address] | | | | + + + + + + | MCH | 32.0Comment: Testing | 27.0 - 34.0 pg | EXTERNAL | | | | performed at [facility], [address] | | LAB | | | | [address], | | | | | | [place] [address] | | | | + + + + + + | MCHC | 34.3Comment: Testing | 32.0 - 35.5 | EXTERNAL | | | | performed at [facility], [address] | g/dL | LAB | | | | [address], | | | | | | [place] [address] | | | | + + + + + + | RDW-CV | 46.4Comment: Testing | 37 - 53 fl | EXTERNAL | | | | performed at [facility], [address] | | LAB | | | | [address], | | | | | | [place] [address] | | | | + + + + + + | Platelet | 209Comment: Testing | 150 - 400 K/uL | EXTERNAL | | | Count | performed at [facility], [address] | | LAB | | | Plasma | [address], | | | | | | [place] [address] | | | | + + + + + + | MPV | 7.5Comment: Testing | fl | EXTERNAL | | | | performed at [facility], [address] | | LAB | | | | [address], | | | | | | [place] [address] | | | | + + + + + + | Differentia | AUTOMATEDComment: | | EXTERNAL | | | l Type | Testing performed at | | LAB | | | | [facility], [address] | | | | | | [place] | | | | | | [address] | | | | + + + + + + | % Segmented | 78.26Comment: Testing | % | EXTERNAL | | | | performed at [facility], [address] | | LAB | | | Neutrophils | [address], | | | | | | [place] [address] | | | | + + + + + + | % | 14.07Comment: Testing | % | EXTERNAL | | | Lymphocytes | performed at [facility], [address] | | LAB | | | | [address], | | | | | | [place] [address] | | | | + + + + + + | % Monocytes | 6.80Comment: Testing | % | EXTERNAL | | | | performed at [facility], [address] | | LAB | | | | [address], | | | | | | [place] [address] | | | | + + + + + + | % | 0.69Comment: Testing | % | EXTERNAL | | | Eosinophils | performed at [facility], [address] | | LAB | | | | [address], | | | | | | [place] [address] | | | | + + + + + + | % Basophils | 0.18Comment: Testing | % | EXTERNAL | | | | performed at [facility], [address] | | LAB | | | | [address], | | | | | | [place] [address] | | | | + + + + + + | Absolute | 6.75Comment: Testing | 1.90 - 7.40 | EXTERNAL | | | Segmented | performed at [facility], [address] | K/uL | LAB | | | Neutrophils | [address], | | | | | | [place] [address] | | | | + + + + + + | Absolute | 1.21Comment: Testing | 1.00 - 3.90 | EXTERNAL | | | Lymphocytes | performed at [facility], [address] | K/uL | LAB | | | | [address], | | | | | | [place] [address] | | | | + + + + + + | Absolute | 0.59Comment: Testing | 0.00 - 0.80 | EXTERNAL | | | Monocytes | performed at [facility], [address] | K/uL | LAB | | | | [address], | | | | | | [place] [address] | | | | + + + + + + | Absolute | 0.06Comment: Testing | 0.00 - 0.50 | EXTERNAL | | | Eosinophils | performed at [facility], [address] | K/uL | LAB | | | | [address], | | | | | | [place] [address] | | | | + + + + + + | Absolute | 0.02Comment: Testing | 0.00 - 0.10 | EXTERNAL | | | Basophils | performed at [facility], [address] | K/uL | LAB | | | | [address], | | | | | | [place] [address] | | | | + + + [...] | | | | performed at [facility];[address] | | LAB | | | | [address];[place], [place] | | | | | | [address] | | | | + + + [...] | | | | performed at [facility] | | LAB | | | | [facility];[place], [place] | | | | | | [address] | | | | + + + [...] | | | | performed at [facility];888 | mmol/L | LAB | | | | [address];[place] | | | | | | [address] | | | | + + + + + + | K | 2.9 (L)Comment: Testing | 3.5 - 4.9 | EXTERNAL | | | | performed at [facility];888 | mmol/L | LAB | | | | [address];[place] | | | | | | [address] | | | | + + + + + + | Cl | 108Comment: Testing | 99 - 109 mmol/L | EXTERNAL | | | | performed at [facility];[address] | | LAB | | | | [address];[place] | | | | | | [address] | | | | + + + + + + | CO2 | 15 (L)Comment: Testing | 23 - 32 mmol/L | EXTERNAL | | | | performed at [facility];[address] | | LAB | | | | [address];[place] | | | | | | [address] | | | | + + + + + + | Anion Gap | 14Comment: Testing | 5 - 20 mmol/L | EXTERNAL | | | | performed at [facility];[address] | | LAB | | | | [address];[place] | | | | | | [address] | | | | + + + + + + | Glucose, | 197 (H)Comment: Testing | 65 - 99 mg/dL | EXTERNAL | | | Fasting | performed at [facility];[address] | | LAB | | | | [address];[place] | | | | | | [address] | | | | + + + + + + | BUN | 8Comment: Testing | 8 - 25 mg/dL | EXTERNAL | | | | performed at [facility];[address] | | LAB | | | | [address];[place] | | | | | | [address] | | | | + + + + + + | Creatinine | 0.64 (L)Comment: Testing | 0.70 - 1.30 | EXTERNAL | | | | performed at [facility];888 | mg/dL | LAB | | | | [address];[place] | | | | | | [address] | | | | + + + + + + | BUN/Creatin | 12Comment: Testing | | EXTERNAL | | | ine Ratio | performed at [facility];888 | | LAB | | | | [address];[place] | | | | | | [address] | | | | + + + + + + | Calcium | 7.1 (L)Comment: Testing | 8.5 - 10.5 | EXTERNAL | | | | performed at [facility];888 | mg/dL | LAB | | | | [address];[place] | | | | | | [address] | | | | + + + [...] | | | | | at [facility];[address];[place] [address] | | | | + + + [...] | | Fingerstick | performed at [facility];[address] | | LAB | | | [address];[place], [place] | | | | | | [address] | | | | + + + [...] | | Fingerstick | performed at [facility];[address] | | LAB | | | | [address];[place] | | | | | | [address] | | | | + + + [...] | | Fingerstick | performed at [facility];[address] | | LAB | | | | [address];[place] | | | | | | [address] | | | | + + + [...] | | Fingerstick | performed at [facility] | | LAB | | | | [address];[place] | | | | | | [address] | | | | + + + [...] | | | | performed at [facility];[address] | | LAB | | | | [address];[place], [place] | | | | | | [address] | | | | + + + [...] | | | | performed at [facility];888 | | LAB | | | | [address];[place], [place] | | | | | | [address] | | | | + + + [...] | | | | performed at [facility];888 | mmol/L | LAB | | | | [address];[place] | | | | | | [address] | | | | + + + + + + | K | 3.0 (L)Comment: Testing | 3.5 - 4.9 | EXTERNAL | | | | performed at [facility];888 | mmol/L | LAB | | | | [address];[place] | | | | | | [address] | | | | + + + + + + | Cl | 108Comment: Testing | 99 - 109 mmol/L | EXTERNAL | | | | performed at [facility];888 | | LAB | | | | [address];[place] | | | | | | [address] | | | | + + + + + + | CO2 | 14 (LL)Comment: CALLED | 23 - 32 mmol/L | EXTERNAL | | | | TO CODY Swain RN/CATHI AT | | LAB | | | | 0134 BY MWREAD BACK | | | | | | RESULTS VERIFIEDTesting | | | | | | performed at [facility];[address] | | | | | | [address];[place] | | | | | | [address] | | | | + + + + + + | Anion Gap | 14Comment: Testing | 5 - 20 mmol/L | EXTERNAL | | | | performed at [facility];[address] | | LAB | | | [address];[place] | | | | | | [address] | | | | + + + + + + | Glucose, | 213 (H)Comment: Testing | 65 - 99 mg/dL | EXTERNAL | | | Fasting | performed at [facility];[address] | | LAB | | | [address];[place] | | | | | | [address] | | | | + + + + + + | BUN | 10Comment: Testing | 8 - 25 mg/dL | EXTERNAL | | | | performed at [facility];[address] | | LAB | | | | [address];[place] | | | | | | [address] | | | | + + + + + + | Creatinine | 0.70Comment: Testing | 0.70 - 1.30 | EXTERNAL | | | | performed at [facility];888 | mg/dL | LAB | | | | [address];[place] | | | | | | [address] | | | | + + + + + + | BUN/Creatin | 14Comment: Testing | | EXTERNAL | | | ine Ratio | performed at [facility];888 | | LAB | | | | [address];[place] | | | | | | [address] | | | | + + + + + + | Calcium | 6.9 (L)Comment: Testing | 8.5 - 10.5 | EXTERNAL | | | | performed at [facility];888 | mg/dL | LAB | | | | [address];[place] | | | | | | [address] | | | | + + + [...] | | | | | at [facility];[address] | | | | | | [address];[place] [address] | | | | + + + [...] | | Fingerstick | performed at [facility];[address] | | LAB | | | [address];[place], [place] | | | | | | [address] | | | | + + + [...] | | Fingerstick | performed at [facility];[address] | | LAB | | | | [address];[place] | | | | | | [address] | | | | + + + [...] | | Fingerstick | performed at [facility];[address] | | LAB | | | | [address];[place], [place] | | | | | | [address] | | | | + + + [...] | | | | performed at [facility] | | LAB | | | | [address];[place] | | | | | | [address] | | | | + + + [...] | | | | performed at [facility];888 | | LAB | | | | [address];[place], [place] | | | | | | [address] | | | | + + + [...] | | | | performed at [facility];888 | mmol/L | LAB | | | | [address];[place] | | | | | | [address] | | | | + + + + + + | K | 3.3 (L)Comment: Testing | 3.5 - 4.9 | EXTERNAL | | | | performed at [facility];888 | mmol/L | LAB | | | | [address];[place] | | | | | | [address] | | | | + + + + + + | Cl | 111 (H)Comment: Testing | 99 - 109 mmol/L | EXTERNAL | | | | performed at [facility];[address] | | LAB | | | [address];[place] | | | | | | [address] | | | | + + + + + + | CO2 | 16 (L)Comment: Testing | 23 - 32 mmol/L | EXTERNAL | | | | performed at [facility];[address] | | LAB | | | [address];[place] | | | | | | [address] | | | | + + + + + + | Anion Gap | 13Comment: Testing | 5 - 20 mmol/L | EXTERNAL | | | | performed at [facility];[address] | | LAB | | | | [address];[place] | | | | | | [address] | | | | + + + + + + | Glucose, | 125 (H)Comment: Testing | 65 - 99 mg/dL | EXTERNAL | | | Fasting | performed at [facility];[address] | | LAB | | | | [address];[place] | | | | | | [address] | | | | + + + + + + | BUN | 10Comment: Testing | 8 - 25 mg/dL | EXTERNAL | | | | performed at [facility];[address] | | LAB | | | | [address];[place] | | | | | | [address] | | | | + + + + + + | Creatinine | 0.82Comment: Testing | 0.70 - 1.30 | EXTERNAL | | | | performed at [facility];888 | mg/dL | LAB | | | | [address];[place] | | | | | | [address] | | | | + + + + + + | BUN/Creatin | 12Comment: Testing | | EXTERNAL | | | ine Ratio | performed at [facility];[address] | | LAB | | | | [address];[place] | | | | | | [address] | | | | + + + + + + | Calcium | 6.6 (L)Comment: Testing | 8.5 - 10.5 | EXTERNAL | | | | performed at [facility];888 | mg/dL | LAB | | | | [address];[place], [place] | | | | | | [address] | | | | + + + [...] | | | | | at [facility];[address];[place] [address] | | | | + + + [...] | | Fingerstick | performed at [facility];[address] | | LAB | | | | [address];[place] | | | | | | [address] | | | | + + + [...] | | Fingerstick | performed at [facility];[address] | | LAB | | | | [address];[place], [place] | | | | | | [address] | | | | + + + [...] | | Fingerstick | performed at [facility];[address] | | LAB | | | | [address];[place] | | | | | | [address] | | | | + + + [...] | | Fingerstick | performed at [facility];[address] | | LAB | | | | [address];[place] | | | | | | [address] | | | | + + + [...] | | | | performed at [facility];[address] | | LAB | | | | [address];[place] | | | | | | [address] | | | | + + + [...] | | | | performed at [facility];[address] | | LAB | | | | [address];[place], [place] | | | | | | [address] | | | | + + + [...] | LAB | | | | [facility] [address];[place] [address] | | | | + + + [...] | | | | performed at [facility];888 | mmol/L | LAB | | | | [address];[place] | | | | | | [address] | | | | + + + + + + | K | 2.7 (LL)Comment: CALLED | 3.5 - 4.9 | EXTERNAL | | | | NURSING UNITREAD BACK | mmol/L | LAB | | | | RESULTS VERIFIEDIVAN K | | | | | | AT 1748 JGRTesting | | | | | | performed at [facility];[address] | | | | | [address];[place] | | | | | | [address] | | | | + + + + + + | Cl | 110 (H)Comment: Testing | 99 - 109 mmol/L | EXTERNAL | | | | performed at [facility];[address] | | LAB | | | [address];[place] | | | | | | [address] | | | | + + + + + + | CO2 | 15 (L)Comment: Testing | 23 - 32 mmol/L | EXTERNAL | | | | performed at [facility];[address] | | LAB | | | [address];[place] | | | | | | [address] | | | | + + + + + + | Anion Gap | 15Comment: Testing | 5 - 20 mmol/L | EXTERNAL | | | | performed at [facility];[address] | | LAB | | | [address];[place] | | | | | | [address] | | | | + + + + + + | Glucose, | 133 (H)Comment: Testing | 65 - 99 mg/dL | EXTERNAL | | | Fasting | performed at [facility];[address] | | LAB | | | [address];[place] | | | | | | [address] | | | | + + + + + + | BUN | 14Comment: Testing | 8 - 25 mg/dL | EXTERNAL | | | | performed at [facility];[address] | | LAB | | | [address];[place] | | | | | | [address] | | | | + + + + + + | Creatinine | 0.92Comment: Testing | 0.70 - 1.30 | EXTERNAL | | | | performed at [facility];888 | mg/dL | LAB | | | | [address];[place] | | | | | | [address] | | | | + + + + + + | BUN/Creatin | 15Comment: Testing | | EXTERNAL | | | ine Ratio | performed at [facility];[address] | | LAB | | | | [address];[place] | | | | | | [address] | | | | + + + + + + | Calcium | 6.5 (L)Comment: Testing | 8.5 - 10.5 | EXTERNAL | | | | performed at [facility];888 | mg/dL | LAB | | | | [address];[place] | | | | | | [address] | | | | + + + [...] | | | | | at [facility];[address] | | | | | | [address];[place] [address] | | | | + + + [...] | | Fingerstick | performed at [facility];[address] | | LAB | | | | [address];[place], [place] | | | | | | [address] | | | | + + + [...] | | Fingerstick | performed at [facility];[address] | | LAB | | | | [address];[place] | | | | | | [address] | | | | + + + [...] | | Fingerstick | performed at [facility];[address] | | LAB | | | | [address];[place] | | | | | | [address] | | | | + + + [...] | | Fingerstick | performed at [facility];[address] | | LAB | | | | [address];[place] | | | | | | [address] | | | | + + + [...] | | | | performed at [facility];[address] | | LAB | | | | [address];[place], [place] | | | | | | [address] | | | | + + + [...] | | | | performed at [facility];[address] | | LAB | | | | [address];[place] | | | | | | [address] | | | | + + + [...] | LAB | | | | [facility];[address] [place] [address] | | | | | | Bl;[place] [address] | | | | + + + [...] | | | | performed at [facility];888 | mmol/L | LAB | | | | [address];[place], [place] | | | | | | [address] | | | | + + + + + + | K | 3.1 (L)Comment: Testing | 3.5 - 4.9 | EXTERNAL | | | | performed at [facility];888 | mmol/L | LAB | | | | [address];[place] | | | | | | [address] | | | | + + + + + + | Cl | 113 (H)Comment: Testing | 99 - 109 mmol/L | EXTERNAL | | | | performed at [facility];[address] | | LAB | | | | [address];[place] | | | | | | [address] | | | | + + + + + + | CO2 | 7 (LL)Comment: RESULT | 23 - 32 mmol/L | EXTERNAL | | | | READ BACK BY:CHARLES Mackay6RP | | LAB | | | | AT 1340.EAPTesting | | | | | | performed at [facility];[address] | | | | | | [address];[place] | | | | | | [address] | | | | + + + + + + | Anion Gap | 23 (H)Comment: Testing | 5 - 20 mmol/L | EXTERNAL | | | | performed at [facility];[address] | | LAB | | | | [address];[place] | | | | | | [address] | | | | + + + + + + | Glucose, | 206 (H)Comment: Testing | 65 - 99 mg/dL | EXTERNAL | | | Fasting | performed at [facility];[address] | | LAB | | | | [address];[place] | | | | | | [address] | | | | + + + + + + | BUN | 18Comment: Testing | 8 - 25 mg/dL | EXTERNAL | | | | performed at [facility];[address] | | LAB | | | | [address];[place] | | | | | | [address] | | | | + + + + + + | Creatinine | 0.84Comment: Testing | 0.70 - 1.30 | EXTERNAL | | | | performed at [facility];888 | mg/dL | LAB | | | | [address];[place] | | | | | | [address] | | | | + + + + + + | BUN/Creatin | 21Comment: Testing | | EXTERNAL | | | ine Ratio | performed at [facility];[address] | | LAB | | | | [address];[place] | | | | | | [address] | | | | + + + + + + | Calcium | 6.7 (L)Comment: Testing | 8.5 - 10.5 | EXTERNAL | | | | performed at [facility];888 | mg/dL | LAB | | | | [address];[place] | | | | | | [address] | | | | + + + [...] | | | | | at [facility];[address] | | | | | [address];[place] [address] | | | | + + + [...] | | Fingerstick | performed at [facility];[address] | | LAB | | | | [address];[place] | | | | | | [address] | | | | + + + [...] | | Fingerstick | performed at [facility];[address] | | LAB | | | | [address];[place] | | | | | | [address] | | | | + + + [...] | | | | performed at [facility];[address] | | LAB | | | | [address];[place] | | | | | | [address] | | | | + + + [...] | | | | performed at [facility];[address] | | LAB | | | | [address];[place], [place] | | | | | | [address] | | | | + + + [...] | | | | performed at [facility];888 | mmol/L | LAB | | | | [address];[place] | | | | | | [address] | | | | + + + + + + | K | 3.0 (L)Comment: Testing | 3.5 - 4.9 | EXTERNAL | | | | performed at [facility];888 | mmol/L | LAB | | | | [address];[place] | | | | | | [address] | | | | + + + + + + | Cl | 113 (H)Comment: Testing | 99 - 109 mmol/L | EXTERNAL | | | | performed at [facility];[address] | | LAB | | | [address];[place] | | | | | | [address] | | | | + + + + + + | CO2 | 6 (LL)Comment: CALLED | 23 - 32 mmol/L | EXTERNAL | | | | RESULTSREAD BACK RESULTS | | LAB | | | | [id number]/KATIA Scott AT | | | | | | 1110 BY SALTesting | | | | | | performed at [facility];[address] | | | | | | [address];[place] | | | | | | [address] | | | | + + + + + + | Anion Gap | 27 (H)Comment: Testing | 5 - 20 mmol/L | EXTERNAL | | | | performed at [facility];[address] | | LAB | | | [address];[place] | | | | | | [address] | | | | + + + + + + | Glucose, | 214 (H)Comment: Testing | 65 - 99 mg/dL | EXTERNAL | | | Fasting | performed at [facility];[address] | | LAB | | | | [address];[place] | | | | | | [address] | | | | + + + + + + | BUN | 21Comment: Testing | 8 - 25 mg/dL | EXTERNAL | | | | performed at [facility];[address] | | LAB | | | | [address];[place] | | | | | | [address] | | | | + + + + + + | Creatinine | 0.87Comment: Testing | 0.70 - 1.30 | EXTERNAL | | | | performed at [facility];888 | mg/dL | LAB | | | | [address];[place] | | | | | | [address] | | | | + + + + + + | BUN/Creatin | 24Comment: Testing | | EXTERNAL | | | ine Ratio | performed at [facility];[address] | | LAB | | | | [address];[place] | | | | | | [address] | | | | + + + + + + | Calcium | 6.8 (L)Comment: Testing | 8.5 - 10.5 | EXTERNAL | | | | performed at [facility];888 | mg/dL | LAB | | | | [address];[place], [place] | | | | | | [address] | | | | + + + [...] | | | | | at [facility];[address] [facility] | | | | | | [address];[place] [address] | | | | + + + [...] | | Fingerstick | performed at [facility];[address] | | LAB | | | | [address];[place] | | | | | | [address] | | | | + + + [...] | | Fingerstick | performed at [facility];[address] | | LAB | | | | [address];[place], [place] | | | | | | [address] | | | | + + + [...] | LAB | | | | [facility];[address] | | | | | | [facility];[place] [address] | | | | + + + [...] | | | | performed at [facility];[address] | K/uL | LAB | | | | [address];[place] | | | | | | [address] | | | | + + + + + + | RED CELL | 2.80 (L)Comment: Testing | 4.20 - 5.70 | EXTERNAL | | | COUNT | performed at [facility];[address] | M/uL | LAB | | | | [address];[place] | | | | | | [address] | | | | + + + + + + | Hgb | 9.1 (L)Comment: Testing | 13.2 - 17.0 | EXTERNAL | | | | performed at [facility];888 | g/dL | LAB | | | | [address];[place] | | | | | | [address] | | | | + + + + + + | Hematocrit, | 26.7 (L)Comment: Testing | 39.0 - 50.0 % | EXTERNAL | | | POC | performed at [facility];[address] | | LAB | | | | [address];[place] | | | | | | [address] | | | | + + + + + + | MCV | 95.4Comment: Testing | 80.0 - 100.0 fl | EXTERNAL | | | | performed at [facility];[address] | | LAB | | | | [address];[place] | | | | | | [address] | | | | + + + + + + | MCH | 32.3Comment: Testing | 27.0 - 34.0 pg | EXTERNAL | | | | performed at [facility];[address] | | LAB | | | | [address];[place] | | | | | | [address] | | | | + + + + + + | MCHC | 33.9Comment: Testing | 32.0 - 35.5 | EXTERNAL | | | | performed at [facility];888 | g/dL | LAB | | | | [address];[place] | | | | | | [address] | | | | + + + + + + | RDW-CV | 47.3Comment: Testing | 37 - 53 fl | EXTERNAL | | | | performed at [facility];888 | | LAB | | | | [address];[place] | | | | | | [address] | | | | + + + + + + | Platelet | 190Comment: Testing | 150 - 400 K/uL | EXTERNAL | | | Count | performed at [facility];888 | | LAB | | | Plasma | [address];[place] | | | | | | [address] | | | | + + + + + + | MPV | 7.2Comment: Testing | fl | EXTERNAL | | | | performed at [facility];888 | | LAB | | | | [address];[place] | | | | | | [address] | | | | + + + + + + | Differentia | MANUALComment: Testing | | EXTERNAL | | | l Type | performed at [facility];[address] | | LAB | | | | [address];[place] | | | | | | [address] | | | | + + + + + + | Segmented | 59Comment: Testing | % | EXTERNAL | | | Neutrophils | performed at [facility];888 | | LAB | | | Manual | [address];[place] | | | | | | [address] | | | | + + + + + + | % Bands | 24Comment: Testing | % | EXTERNAL | | | | performed at [facility];[address] | | LAB | | | | [address];[place] | | | | | | [address] | | | | + + + + + + | % | 2Comment: Testing | % | EXTERNAL | | | Metamyelocy | performed at [facility];888 | | LAB | | | [address] | [address];[place] | | | | | | [address] | | | | + + + + + + | Lymphocytes | 12Comment: Testing | % | EXTERNAL | | | Manual | performed at [facility];888 | | LAB | | | | [address];[place] | | | | | | [address] | | | | + + + + + + | Monocytes | 3Comment: Testing | % | EXTERNAL | | | Manual | performed at [facility];[address] | | LAB | | | | [address];[place] | | | | | | [address] | | | | + + + + + + | Absolute | 5.18Comment: Testing | 1.90 - 7.40 | EXTERNAL | | | Neutrophils | performed at [facility];888 | K/uL | LAB | | | | [address];[place] | | | | | | [address] | | | | + + + + + + | Bands | 2.10 (H)Comment: Testing | 0.00 - 0.20 | EXTERNAL | | | Manual | performed at [facility];888 | K/uL | LAB | | | | [address];[place] | | | | | | [address] | | | | + + + + + + | Absolute | 0.18 (H)Comment: Testing | K/uL | EXTERNAL | | | Metamyelocy | performed at [facility];888 | | LAB | | | [address] | [address];[place] | | | | | | [address] | | | | + + + + + + | Absolute | 1.05Comment: Testing | 1.00 - 3.90 | EXTERNAL | | | Lymphocytes | performed at [facility];888 | K/uL | LAB | | | | [address];[place] | | | | | | [address] | | | | + + + + + + | Absolute | 0.26Comment: Testing | 0.00 - 0.80 | EXTERNAL | | | Monocytes | performed at [facility];888 | K/uL | LAB | | | | [address];[place] | | | | | | [address] | | | | + + + + + + | Platelet | ADEQUATEComment: Testing | | EXTERNAL | | | Estimate | performed at [facility];[address] | | LAB | | | | [address];[place] | | | | | | [address] | | | | + + + + + + | RBC | NORMALComment: Testing | | EXTERNAL | | | Morphology | performed at [facility];[address] | | LAB | | | | [address];[place] | | | | | | [address] | | | | + + + [...] | | | | performed at [facility];888 | | | | | | [facility];[place], [place] | | | | | | [address] | | | | + + + [...] | | | | performed at [facility];888 | | | | | | [address];[place], [place] | | | | | | [address] | | | | + + + [...] | EXTERNAL | | | A1c | Central [place] Diabetes | | LAB | | | [...] | | | | | performed at [facility], [address] | | | | | | [address] [facility], | | | | | | [place] [address] | | | | + + + [...] | | | | | performed at [facility], [address] | | | | | | [facility], | | | | | | [place] [address] | | | | + + + [...] | | | | performed at [facility];[address] | | | | | | [address];[place] | | | | | | [address] | | | | + + + [...] | | | | performed at [facility];[address] | | | | | | [address];[place] | | | | | | [address] | | | | + + + [...] | | | | performed at [facility];[address] | | | | | | [address];[place] | | | | | | [address] | | | | + + + [...] | | | | performed at [facility];888 | | | | | | [address];[place] | | | | | | [address] | | | | + + + [...] | | | | performed at [facility];888 | | | | | | [address];[place] | | | | | | [address] | | | | + + + + + + | BUN | 15Comment: POOR QUALITY | 8 - 25 mg/dL | EXTERNAL | | | | SPECIMEN FROM THE LINE | | LAB | | | | DRAW, CHARGES CREDITED, | | | | | | PATIENT REDRAWN.Testing | | | | | | performed at [facility];[address] | | | | | | [address];[place] | | | | | | [address] | | | | + + + [...] | | | | performed at [facility];[address] | | | | | | [address];[place] | | | | | | [address] | | | | + + + + + + | BUN/Creatin | 26Comment: POOR QUALITY | | EXTERNAL | | | ine Ratio | SPECIMEN FROM THE LINE | | LAB | | | | DRAW, CHARGES CREDITED, | | | | | | PATIENT REDRAWN.Testing | | | | | | performed at [facility];[address] | | | | | | [address];[place] | | | | | | [id number] ON 02/05 | | | | | [...] | | | | | at [facility];[address] [place] [address] | | | | | | [facility];[place] [address] | | | | + + + [...] | | Fingerstick | performed at [facility];888 | | LAB | | | | [address];[place], [place] | | | | | | [address] | | | | + + + [...]
--- OUTSIDE RECORDS SUMMARY | ~2019-07-04 | XMS | Encounter Summary ---
Demographics + + + | Address | [address] | | | [place] [address] | + + + | Home Phone [...] Team Providers + +------+ + | Care Satellite Television Installer Name | Role | Phone | [...] | | | | ([facility]) | | | | | | [...] | | | | ([facility]) | | | +--------+--------+ + + + + Encounter Details +--------+ + + + + | Date | Type | Department | Care Team | Description | +--------+ + + + + | 09/26/ | Hospital | [facility] | Juanjose Ross MD | Diabetic | | 2017 - | Encounter | [facility] | [address] | ketoacidosis without | | | | [address] | [place] | coma associated | | 09/28/ | | [place] [address] | [address] | with type 1 diabetes | | 2017 | | [phone] | | mellitus (HCC) | | | | | Yancy Barron MD | (Primary Dx); | | | | | [address] | Hyperkalemia; Acute | | | | | [place] | renal failure, | | | | | [address] | unspecified acute | | | | [...] week. 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 aka: LANTUS insulin lispro 100 units/mL injection (cartridge) Inject 2 Units under the skin 3 times daily (before meals). Plus sliding scale. aka: humaLOG Discontinued Medications aspirin 81 mg chewable tablet NK-Mmlsimrufjwqs-Jwzausjjdutii 10-5-325 MG Caps HYDROcodone-acetaminophen 5-325 mg per [...] medication list or bottles [] MAR from [facility] facility: [] Doctor's office: [x] Pharmacy list names: [facility], Anthony Aguila [] [facility] TRAVELING NURSE (Prescription Monitoring Program) [x] [employer] insurance reported [...] Marijuana lungs 3 times weekly unknown Other: [facility] reports patient appears non-compliant with his medications. 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 | [address] | [place] | [phone] | | [facility] | | [address] | | | - LABORATORY | | [...] mL/min/1.73m2 | [facility] | | | [place] | RATE,ESTIMATED | | MEDICAL | | | | mL/min/1.92w9Ukae than | | CENTER - | | [...] [address] | [place] | [phone] | | [facility] | | [address] | | | - LABORATORY | | [...] [address] | [place] | [phone] | | [facility] | | [address] | | | - LABORATORY | | [...] | | | POC | | | [facility] | | | | | [...] + | [facility] | [address] | [place] | [phone] | | [facility] | | [address] | | | - LABORATORY | | [address] | [place] | [phone] | | [facility] | | [address] | | | - LABORATORY | | [...] [address] | [place] | [phone] | | [facility] | | [address] | | | - LABORATORY | | [...] + | [facility] | [address] | [place] | [phone] | | [facility] | | [address] | | | - LABORATORY | | [...] mL/min/1.73m2 | [facility] | | | [place] | RATE,ESTIMATED | | MEDICAL | | | | mL/min/1.32g5Vpbo than | | CENTER - | | [...] [address] | [place] | [phone] | | [facility] | | [address] | | | - LABORATORY | | [...] [address] | [place] | [phone] | | [facility] | | [address] | | | - LABORATORY | | [...] + | [facility] | [address] | [place] | [phone] | | [facility] | | [address] | | | - LABORATORY | | [...] | mL/min/1.73m2 | [facility] | | | [place] | RATE,ESTIMATED | | MEDICAL | | | | mL/min/1.29e1Rchx than | | CENTER - | | [...] [address] | [place] | [phone] | | [facility] | | [address] | | | - LABORATORY | | [...] - 1.030 | [facility] | | | [place] | | | [facility] | | [address] | [place] | [phone] | | [facility] | | [address] | | | - LABORATORY | | [...] [address] | [place] | [phone] | | [facility] | | [address] | | | - LABORATORY | | [...] [address] | [place] | [phone] | | [facility] | | [address] | | | - LABORATORY | | [...] | 1.17 | 0.60 - 1.30 | [facility] | | | | | mg/dL | [facility] | | | | | | MEDICAL | | | | | | CENTER - | | | | | | LABORATORY | | + + + + + + | eGFR if not | >60Comment: GLOMERULAR | >=60 | [facility] | | | | FILTRATION | mL/min/1.73m2 | [facility] | | | [place] | RATE,ESTIMATED | | MEDICAL | | | | mL/min/1.79q4Ysrn than | | CENTER - | | [...] + | [facility] | [address] | [place] | [phone] | | [facility] | | [address] | | | - LABORATORY | | [...] [address] | [place] | [phone] | | [facility] | | [address] | | | - LABORATORY | | [...] [address] | [place] | [phone] | | [facility] | | [address] | | | - LABORATORY | | [...] [address] | [place] | [phone] | | [facility] | | [address] | | | - LABORATORY | | [...] [address] | [place] | [phone] | | [facility] | | [address] | | | - LABORATORY | | [...] not | 56 (L)Comment: | >=60 | [facility] | | | | GLOMERULAR FILTRATION | mL/min/1.73m2 | [facility] | | | [place] | RATE,ESTIMATED | | MEDICAL | | | | mL/min/1.40r6Uoun than | | CENTER - | | [...] | 8.4 | 8.3 - 10.5 | [facility] | | | | | mg/dL | [facility] | | | | | [...] [address] | [place] | [phone] | | [facility] | | [address] | | | - LABORATORY | | [...] + | [facility] | [address] | [place] | [phone] | | [facility] | | [address] | | | - LABORATORY | | [...] [address] | [place] | [phone] | | [facility] | | [address] | | | - LABORATORY | | [...] [address] | [place] | [phone] | | [facility] | | [address] | | | - LABORATORY | | [...] + | [facility] | [address] | [place] | [phone] | | [facility] | | [address] | | | - LABORATORY | | [...] mL/min/1.73m2 | [facility] | | | [place] | RATE,ESTIMATED | | MEDICAL | | | | mL/min/1.99o8Hxwt than | | CENTER - | | [...] [address] | [place] | [phone] | | [facility] | | [address] | | | - LABORATORY | | [...] [address] | [place] | [phone] | | [facility] | | [address] | | | - [...] [address] | [place] | [phone] | | [facility] | | [address] | | | - LABORATORY | | [...] [address] | [place] | [phone] | | [facility] | | [address] | | | - LABORATORY | | [...] [address] | [place] | [phone] | | [facility] | | [address] | | | - LABORATORY | | [...] mL/min/1.73m2 | [facility] | | | [place] | RATE,ESTIMATED | | MEDICAL | | | | mL/min/1.19l3Xenf than | | CENTER - | | [...] + | [facility] | [address] | [place] | [phone] | | [facility] | | [address] | | | - LABORATORY | | [...] [address] | [place] | [phone] | | [facility] | | [address] | | | - LABORATORY | | [...] ST. | [address] | [place], [place] | [phone] | | [facility] | | [address] | | | - LABORATORY | | [...] [address] | [place] | [phone] | | [facility] | | [address] | | | - LABORATORY | | [...] | | | PCR | | | [facility] | | | | | | MEDICAL | | | | | | CENTER - | | | | | | LABORATORY | | + + + + + + | Influenza B | Negative | Negative | [facility] | | | PCR | | | [facility] | | | | | [...] ST. | [address] | [place] | [phone] | | [facility] | | [address] | | | - LABORATORY | | [...] [address] | [place] | [phone] | | [facility] | | [address] | | | - LABORATORY | | [...] + | [facility] | [address] | [place] | [phone] | | [facility] | | [address] | | | - LABORATORY | | [...] mL/min/1.73m2 | [facility] | | | [place] | RATE,ESTIMATED | | MEDICAL | | | | mL/min/1.56z3Uxsr than | | CENTER - | | [...] [address] | [place] | [phone] | | [facility] | | [address] | | | - LABORATORY | | [...] [address] | [place] | [phone] | | [facility] | | [address] | | | - LABORATORY | | [address] | [place] | [phone] | | [facility] | | [address] | | | - LABORATORY | | [...] MD | | | | | | ([id number]) on 09/27/2016 | | | | | [...] ST. | [address] | [place] | [phone] | | [facility] | | [address] | | | - LABORATORY | | [...] [address] | [place] | [phone] | | [facility] | | [address] | | | - LABORATORY | | [...] mL/min/1.73m2 | [facility] | | | [place] | RATE,ESTIMATED | | MEDICAL | | | | mL/min/1.01z6Kdvi than | | CENTER - | | [...] + | [facility] | [address] | [place] | [phone] | | [facility] | | [address] | | | - LABORATORY | | [...] [address] | [place] | [phone] | | [facility] | | [address] | | | - LABORATORY | | [...] + | [facility] | [address] | [place] | [phone] | | [facility] | | [address] | | | - LABORATORY | | [address] | [place] | [phone] | | [facility] | | [address] | | | - LABORATORY | | [address] | [place] | [phone] | | [facility] | | [address] | | | - LABORATORY | | [...] [address] | [place] | [phone] | | [facility] | | [address] | | | - LABORATORY | | [...] + | [facility] | [address] | [place] | [phone] | | [facility] | | [address] | | | - LABORATORY | | [...] ST. | [address] | [place], [place] | [phone] | | [facility] | | [address] | | | - LABORATORY | | [...] | | | | | | | 9153-8231 Use NIGHT DOSE for | | | | | | | doses scheduled: HS, 3AM, | | | | | | | Nighttime 8345-2425, | | | | | | + [...] | | | | | NPO, Daytime 6781-5184 Use NIGHT | | | | | | | DOSE for doses scheduled: | | | | | | | HS, 3AM, Nighttime 9033-2202, | | | | | | + [...] PDT | | | | | ONCE, [facility] 09/26/16 at 2305, For 1 | [...] PDT | | | | | ONCE, [facility] 09/26/16 at 2355, For 1 | [...]
--- OUTSIDE RECORDS SUMMARY | ~2019-07-04 | XMS | Encounter Summary ---
Demographics + + + | Address | [address] | | | [place] [address] | + + + | Home Phone | | + + + | Preferred Language | Unknown | + + + | Marital Status | Single | + + + | Buddhist Affiliation | 1001 | + + + [...] Team Providers + +------+ + | Care Student Counselor Name | Role | Phone | + +------+ + PCP | Unavailable | + +------+ + Encounter Details +--------+ + + + + | Date | Type | Department | Care Team | Description | +--------+ + + + + | 03/11/ | Hospital | [facility] | Shivam Garzon | | | 2003 | Encounter | [facility] | DO [address] | | | | | [facility] | [place], [place] | | | | | [address] | [address] | | | | | [phone] | | | +--------+ + + + [...]
--- OUTSIDE RECORDS SUMMARY | ~2019-07-04 | XMS | Encounter Summary ---
Demographics + + + | Address | [address] | | | [place] [address] | + + + | Home Phone [...] Team Providers + +------+ + | Care Police Specialist Name | Role | Phone | + +------+ + PCP | Unavailable | + +------+ + Encounter Details +--------+ + + + + | Date | Type | Department | Care Team | Description | +--------+ + + + + | 08/23/ | Hospital | [facility] | Shivam Bustos MD | | | 2003 | Encounter | H[facility] [address] [place] [address] | [address] [place] | | | | | [place], [place] | [facility] | | | | | [address] | [place] [address] | | | | | [phone] | | | +--------+ + + + [...]
--- OUTSIDE RECORDS SUMMARY | ~2019-07-04 | XMS | Encounter Summary ---
Demographics + + + | Address | [address] | | | [place] [address] | + + + | Home Phone [...] + + | Author | [facility] | | | and Ryana | + + + | Organization | [facility] | | | [...] Team Providers + +------+ + | Care Supply Specialist Name | Role | Phone | + +------+ + PCP | Unavailable | + +------+ + Encounter Details +--------+ + + + + | Date | Type | Department | Care Team | Description | +--------+ + + + + | 04/21/ | Hospital | [facility] | Abhi Berger | | | 1999 - | Encounter | [address] | MD [address] | | | | | [place], [place] | [place], [place] | | | 04/22/ | | [address] | [address] | | | 1999 | | [phone] | | | +--------+ + + + [...]
--- OUTSIDE RECORDS SUMMARY | ~2019-07-04 | XMS | Clinical Summary ---
Demographics + + + | Address | [address] | | | [place] [address] | + + + | Preferred Language | Unknown | + + + | Marital Status | Single | + + + | Latter-Day Affiliation | Unknown | + + + | Race | Unknown | + + + | Ethnic Group | Unknown | + + + Author + + + | Author | [facility] [employer] (Historical as of | | | 02-06-19) | + + + | Organization | [facility] (Historical as of | | | 02-06-19) | + + + | Address | Unknown | + + + | Phone | Unavailable | + + + Care Team Providers + +------+ + | Care Powder Expert Name | Role | Phone | [...] +------+-------+ + | MEDICAID | [place] | [id number] | | | [address] | | | [place] | | | | [place] | | | [place] | | | | [address] | | | GENERAL MANAGER FOOD | | | | | + +--------+ +------+-------+ + + +--------+ +--------+-------+ + | Guarantor Name | Accoun | Relation to | Date | Phone | Billing Address | | | t Type | Patient | of | | | | | | | | | | + +--------+ +--------+-------+ + | JONI WOMACK | Person | Self | [birth year] | [address] | | | al/Alberto | | 1981 | | [place] [address] | | | lisa | | | | | + +--------+ +--------+-------+ +
--- OUTSIDE RECORDS SUMMARY | ~2019-07-04 | XMS | Encounter Summary ---
Demographics + + + | Address | [address] | | | [place] [address] | + + + | Home Phone [...] Team Providers + +------+ + | Care Tree Doctor Name | Role | Phone | + [...] + + | 04/09/ | [facility] | Adi Castro | Hyperglycemia | | 2017 | | [facility] | Alexander Craig MD | (Primary Dx) | | | | CENTER [address] | [address] | | | | | [place] | [place] | | | | | [address] | [address] | | | | | [phone] | | | +--------+ + + + [...] J?MRN: | | | | | | [id number] | | | [id number] | | | his | | | [...] | | | St. | | | [place] | | | y H. | [...] | | | St. | | | [place] | | | y H. | [...] | | | St. | | | [place] | | | y H. | [...] | | | St. | | | [place] | | | y H. | [...] | | | St. | | | [place] | | | y H. | [...] | | | St. | | | [place] | | | y | | [...] [address] | [place] | [phone] | | [facility] | | [address] | | | - LABORATORY | | [...] + | [facility] | [address] | [place] | [phone] | | [facility] | | [address] | | | - LABORATORY | | [...] + | [facility] | [address] | [place] | [phone] | | [facility] | | [address] | | | - LABORATORY | | [...] | Hydroxybuty | | mmol/L | [facility] | | | rate | | [...] + | [facility] | [address] | [place] | [phone] | | [facility] | | [address] | | | - LABORATORY | | [...] + | [facility] | [address] | [place] | [phone] | | [facility] | | [address] | | | - LABORATORY | | [...] + | [facility] | [address] | [place] | [phone] | | [facility] | | [address] | | | - LABORATORY | | [...] mL/min/1.73m2 | [facility] | | | [place] | RATE,ESTIMATED | | MEDICAL | | | | mL/min/1.00c1Pokp than | | CENTER - | | [...] + | [facility] | [address] | [place] | [phone] | | [facility] | | [address] | | | - LABORATORY | | [address] | [place] | [phone] | | [facility] | | [address] | | | - LABORATORY | | [...] 1.001 - 1.030 | | | | [place], | | | | | | [facility], [...] [address] | [place] | [phone] | | [facility] | | [address] | | | - LABORATORY | | [...]
--- OUTSIDE RECORDS SUMMARY | ~2019-07-04 | XMS | Encounter Summary ---
Demographics + + + | Address | [address] | | | [place] [address] | + + + | Home Phone [...] Team Providers + +------+ + | Care Road Passenger Firer Name | Role | Phone | + +------+ + PCP | Unavailable | + +------+ + Encounter Details +--------+ + + + + | Date | Type | Department | Care Team | Description | +--------+ + + + + | 06/19/ | [facility] | [place] | Abhi Berger | | | 2003 | Encounter | FAMILY MEDICINE [address] | [address] | | | | | [address] | [place], [place] | | | | | [place] [address] | [address] | | | | | [phone] | | | +--------+ + + + [...]
--- OUTSIDE RECORDS SUMMARY | ~2019-07-04 | XMS | Encounter Summary ---
Demographics + + + | Address | [address] | | | [place] [address] | + + + | Home Phone [...] Team Providers + +------+ + | Care Screener Perfumer Name | Role | Phone | + +------+ + PCP | Unavailable | + +------+ + Encounter Details +--------+ + + + + | Date | Type | Department | Care Team | Description | +--------+ + + + + | 06/19/ | [facility] | [place] | Abhi Berger | | | 2003 | Encounter | FAMILY MEDICINE [address] | MD [address] | | | | | [address] | [place], [place] | | | | | [place] [address] | [address] | | | | | [phone] | | | +--------+ + + + [...]
--- OUTSIDE RECORDS SUMMARY | ~2019-07-04 | XMS | Encounter Summary ---
Demographics + + + | Address | [address] | | | [place] [address] | + + + | Home Phone [...] Team Providers + +------+ + | Care Safety Security Officer Name | Role | Phone | + +------+ + PCP | Unavailable | + +------+ + Encounter Details +--------+ + + + + | Date | Type | Department | Care Team | Description | +--------+ + + + + | 02/05/ | Hospital | [facility] | [place] | Diabetic | | 2016 - | Encounter | [facility] | Iglesia Mccall MD [address] | ketoacidosis without | | | | CARE FLOOR [address] | coma associated | | 02/07/ | | [address] | [place] [address] | with type 2 diabetes | | 2016 | | [place], [place] | [phone] | mellitus (HCC) | | | | [address] | | | | | | [phone] | | | +--------+ + + + [...] 1427 Date of Service: 02/08/16935 Status: Signed Shopping Inspector: Lanre Pan MD (Physician) Related Notes: Original Note by Lanre Pan MD (Physician) filed at 02/08/16 1015 [facility] Service: Hospitalist Discharge Summary Date of [...] episodes of DKA, and recently moved to [place], [place]. The patient typically takes Lantus pens, though according to the patie nt he has not been storing them appropriately and may have left them out of the fridge for a prolonged period, and the patient indicates that he may have missed a few doses. He began f ling ill a few days prior to his admission. He was initially seen at [place] emergency department and diagnosed with diabetic ketoaci [...] to schedule appointment with the PCP in [place]. DISCHARGE DIAGNOSES 1. Diabetic ketoacidosis in a type 1 diabetic. 2. History of reported schizophrenia, stable. 3. History of tobaccoism. Patient was counseled on tobacco cessation. 4. Electrolyte imbalance, secondary to diabetic ketoacidosis treatment. Past Medical History Diagnosis Date Schizophrenia (HCC) 02/06/2016 Attention-deficit hyperactivity disorder, predominantly hyperactive type 02/06/2016 Depression 02/06/2016 Leukocytosis (leucocytosis) 02/06/2016 Diabetes mellitus type I ([facility]) History reviewed. No pertinent past surgical [...] on file. Follow up: Margarita Gonzales MD [address] [place] [address] follow up for diabetes Medication List CONTINUE [...] 02/08/161254 Date of Service: 02/08/161254 Status: Signed Shopping Inspector: Rosario Ocampo RN (Registered Nurse) Discharge instructions given, all questions answered, patient/urgent care nurse practitioner expresses understa nding. Prescriptions given. IV removed. VSS. Patient left ambulatory to a private residence with family onver danie Transaction, Provider Unknown - 02/08/2016 9:52 AM PDT Case Management by Rhea Kaiser RN at 02/08/16 0952 Author: Rhea Kaiser RN Service: (none) Author Type: Registered Nurse Filed: 02/08/16 1000 Date of Service: 02/08/16951 Status: Addendum Shopping Inspector: Rhea Kaiser RN (Registered Nurse) Related Notes: Original Note by Rhea Kaiser RN (Registered Nurse) filed at 02/08/16 0 955 Discharge Planning: CM contacted [facility] [place] [phone], staff noted Shilpi scott is assigned to his case, left VM message with call back number for counselor to contact CM . Discharge Planning: spoke to CM Shilpi Mirza return call, advised [facility] office will contac t patient [...] Date of Service: 02/08/16 0640 Status: Signed Shopping Inspector: Gayle Gomez RN (Registered Nurse) No changes [...] Date of Service: 08/17/16 1820 Status: Addendum Shopping Inspector: Aracelis Strong RN (Registered Nurse) Related Notes: [...] apologetic he did not call for b [employer] sugar check first. Post prandial sugar 298. 8 units insulin administered. Currently amb [facility]. Report given to ERIKA Araujo. Aracelis Strong RN onver danie Transaction, Provider Unknown - 02/07/2016 3:27 PM PDT Case Management by Rhea Kaiser RN at 02/07/16 1527 Author: Rhea Kaiser RN Service: (none) Author Type: Registered Nurse Filed: 02/07/16 8712 Date of Service: 02/07/16 1527 Status: Addendum Shopping Inspector: Rhea Kaiser RN (Registered Nurse) Related Notes: Original Note by Rhea Kaiser RN (Registered Nurse) filed at 02/07/16 1 527 02/07/16 9876 Discharge Planning Evaluation Admitting Diagnosis diabetic ketoacidosis without coma assoc w/ type I DM Readmission No Living Arrangements Alone Support Systems Parent Type of Residence Private residence Independent with ADL's Yes Independent with Mobility Yes Home Care Services No Caregiver after Discharge Other (comment) (spoke with patient and with mom Blossom [phone], patient resides with mom, sleeps on the couch, patient and mom would like patient to live in assisted living ) Mental Status Oriented Power of Child Care Director No Anticipated Discharge Plan Post Acute Care [...] Home (CM will check for [facility] in [facility]) Met with: CM spoke with patient and patient mother (with pt permission) to discuss discharg e planning, Pt is a 35 y.o., male, whom arrived via life flight to [facility] from [facility] due to DKA. Patient with dx of DM type I, schizophrenia. Patient resided in [facility] for 5 years. Patient and patient mother Blossom [phone] would like leonardo ent to live independent of parent in [facility] or assisted living in [facility]. CM to contact Brody with [facility] in [place] for information concerning patient. Patient states he [...] care provider on file. Patient's insurance: Medicaid [facility] Coverage concerns: no Medication coverage/concerns: non compliant with DM I CBG and insulin use Community resources utilized / needed: patient is requesting alf placement and help to get his life back on track Assistance in transportation: patient's mother will transport Blossom [phone] Identification of any specific education / training: [...] Date of Service: 02/07/16 1001 Status: Signed Shopping Inspector: Lanre Pan MD (Physician) [facility] Service: Hospitalist Progress Note Hospital Day: [...] for DKA since he mov ed to [place]. Per Dr. Dunaway, [facility] emergency room the patient and had a couple of admissions of this year for DKA. Patient had been kicked out of the [place] had been smoking marijuan a which the patient admits. Had presented to [facility] emergency room today after a friend [...] elayed to me by Dr. Dunaway of [facility] ER, had about a week prior to admission and the patient has been laying in the [place] for the last 4 days during nothing she medications. Per mother the patient also had lost 100 pounds since october of this year. Patient was seen at the [facility] Emergency Department, was noted to be tachycardic and tachypneic I was told initially his heart rate was in the 120s, respiration was in the mid 20s, patient was refusing to answer questions or could not answer questions according to [facility] physician, labs showed he was in DKA, he was given 2 L of IV fluid bolus w sandra there, subsequently hospitalist and ICU attending was called at [facility] for a transfer of patient, Dr. Vega recommended giving the patient bicarbonate and potassium which was done , the patient was also in the process of being given 2 more liters of normal saline and was transferred at acute care floor in [facility]. By the time admitting hospitalist [...] we will transition off insulin drip over [facility] htime., Appreciate Dr. Gonzales input, Levemir [...] 0941 Date of Service: 02/07/16939 Status: Signed Shopping Inspector: Darcy Niño RD (Registered Dietitian) 02/07/16 0931 [...] Estimated Energy Needs Total Energy Estimated Needs 2851-1319 kcal/day Method for Estimating Needs 25-30 kcal/kg [...] 02/07/16604 Date of Service: 02/07/16600 Status: Signed Shopping Inspector: Gayle Gomez RN (Registered Nurse) No changes [...] (none) Author Type: Registered Nurse Filed: 02/06/16 4400 Date of Service: 02/06/161621 Status: Signed Shopping Inspector: Jace Yanez RN (Registered Nurse) Pts mother, Blossom, came by hospital to see son and will head back to [place]. She stat es that pts schizophrenia started at age 19 or 20, and that pt often thinks he is other peop le (ie, TuPa), and often mixes fiction with reality. [facility] [place] [facility] on [facility] the last 5 years, and has been in [place] since September. [employer] has been working to find him placement [...] | | | Fingerstick | performed at [facility];[address] | | LAB | | | | [address];[place] | | | | | | [address] | | | | + + + [...] | | | Fingerstick | performed at [facility];[address] | | LAB | | | | [address];[place] | | | | | | [address] | | | | + + + [...] EXTERNAL | | | | performed at [facility], [address] | K/uL | LAB | | | | [address], | | | | | | [place] [address] | | | | + + + + + + | RED CELL | 3.53 (L)Comment: Testing | 4.20 - 5.70 | EXTERNAL | | | COUNT | performed at [facility], [address] | M/uL | LAB | | | | [address], | | | | | | [place] [address] | | | | + + + + + + | Hgb | 11.5 (L)Comment: Testing | 13.2 - 17.0 | EXTERNAL | | | | performed at [facility], [address] | g/dL | LAB | | | | [address], | | | | | | [place] [address] | | | | + + + + + + | Hematocrit, | 32.3 (L)Comment: Testing | 39.0 - 50.0 % | EXTERNAL | | | POC | performed at [facility], [address] | | LAB | | | | [address], | | | | | | [place] [address] | | | | + + + + + + | MCV | 91.6Comment: Testing | 80.0 - 100.0 fl | EXTERNAL | | | | performed at [facility], [address] | | LAB | | | | [address], | | | | | | [place] [address] | | | | + + + + + + | MCH | 32.6Comment: Testing | 27.0 - 34.0 pg | EXTERNAL | | | | performed at [facility], [address] | | LAB | | | | [address], | | | | | | [place] [address] | | | | + + + + + + | MCHC | 35.6 (H)Comment: Testing | 32.0 - 35.5 | EXTERNAL | | | | performed at [facility], [address] | g/dL | LAB | | | | [address], | | | | | | [place] [address] | | | | + + + + + + | RDW-CV | 45.1Comment: Testing | 37 - 53 fl | EXTERNAL | | | | performed at [facility], [address] | | LAB | | | | [address], | | | | | | [place] [address] | | | | + + + + + + | Platelet | 218Comment: Testing | 150 - 400 K/uL | EXTERNAL | | | Count | performed at [facility], [address] | | LAB | | | Plasma | [address], | | | | | | [place] [address] | | | | + + + + + + | MPV | 7.6Comment: Testing | fl | EXTERNAL | | | | performed at [facility], [address] | | LAB | | | | [address], | | | | | | [place] [address] | | | | + + + [...] EXTERNAL | | | | performed at [facility], [address] | | LAB | | | | [address], | | | | | | [place] [address] | | | | + + + [...] EXTERNAL | | | | performed at [facility], [address] | | LAB | | | | [address], | | | | | | [place] [address] | | | | + + + [...] | | | | | [place] [address] | | | | + + + + + + | K | 3.2 (L)Comment: Testing | 3.5 - 4.9 | EXTERNAL | | | | performed at [facility], [address] | mmol/L | LAB | | | | [address], | | | | | | [place] [address] | | | | + + + + + + | Cl | 100Comment: Testing | 99 - 109 mmol/L | EXTERNAL | | | | performed at [facility], [address] | | LAB | | | | [address], | | | | | | [place], [place] [address] | | | | + + + + + + | CO2 | 22 (L)Comment: Testing | 23 - 32 mmol/L | EXTERNAL | | | | performed at [facility], [address] | | LAB | | | | [address], | | | | | | [place] [address] | | | | + + + + + + | Anion Gap | 14Comment: Testing | 5 - 20 mmol/L | EXTERNAL | | | | performed at [facility], [address] | | LAB | | | | [address], | | | | | | [place] [address] | | | | + + + + + + | Glucose, | 282 (H)Comment: Testing | 65 - 99 mg/dL | EXTERNAL | | | Fasting | performed at [facility], [address] | | LAB | | | | [address], | | | | | | [place] [address] | | | | + + + + + + | BUN | 15Comment: Testing | 8 - 25 mg/dL | EXTERNAL | | | | performed at [facility], [address] | | LAB | | | | [address], | | | | | | [place] [address] | | | | + + + + + + | Creatinine | 0.8Comment: Testing | 0.70 - 1.30 | EXTERNAL | | | | performed at [facility], [address] | mg/dL | LAB | | | | [address], | | | | | | [place] [address] | | | | + + + + + + | BUN/Creatin | 19Comment: Testing | | EXTERNAL | | | ine Ratio | performed at [facility], [address] | | LAB | | | | [address], | | | | | | [place] [address] | | | | + + + + + + | Calcium | 7.7 (L)Comment: Testing | 8.5 - 10.5 | EXTERNAL | | | | performed at [facility], [address] | mg/dL | LAB | | | | [address], | | | | | | [place] [address] | | | | + + + + + + | Protein, | 4.8 (L)Comment: Testing | 6.3 - 8.2 g/dL | EXTERNAL | | | Total | performed at [facility], [address] | | LAB | | | | [address], | | | | | | [place] [address] | | | | + + + + + + | Albumin | 2.3 (L)Comment: Testing | 3.6 - 5.0 g/dL | EXTERNAL | | | | performed at [facility], [address] | | LAB | | | | [address], | | | | | | [place] [address] | | | | + + + + + + | Globulin | 2.5Comment: Testing | 1.3 - 4.9 g/dL | EXTERNAL | | | | performed at [facility], [address] | | LAB | | | [address], | | | | | | [place] [address] | | | | + + + + + + | A/G Ratio | 0.9 (L)Comment: Testing | 1.0 - 2.4 | EXTERNAL | | | | performed at [facility], [address] | | LAB | | | | [address], | | | | | | [place] [address] | | | | + + + + + + | Bilirubin | 0.2Comment: Testing | 0.1 - 1.5 mg/dL | EXTERNAL | | | Total | performed at [facility], [address] | | LAB | | | | [address], | | | | | | [place] [address] | | | | + + + + + + | ALP, | 87Comment: Testing | 35 - 115 U/L | EXTERNAL | | | External | performed at [facility], [address] | | LAB | | | | [address], | | | | | | [place] [address] | | | | + + + + + + | AST | 15Comment: Testing | 10 - 45 U/L | EXTERNAL | | | | performed at [facility], [address] | | LAB | | | | [address], | | | | | | [place] [address] | | | | + + + + + + | ALT | 17Comment: Testing | 10 - 65 U/L | EXTERNAL | | | | performed at [facility], [address] | | LAB | | | | [address], | | | | | | [place] [address] | | | | + + + [...] | | | | | [place] [address] | | | | + + + [...] | | | Fingerstick | performed at [facility];[address] | | LAB | | | | [address];[place] | | | | | | [address] | | | | + + + [...] EXTERNAL | | | | performed at [facility];[address] | | LAB | | | | [facility], [place] | | | | | | [address] | | | | + + + [...] EXTERNAL | | | | performed at [facility];[address] | | LAB | | | | [address];[place] | | | | | | [address] | | | | + + + [...] EXTERNAL | | | | performed at [facility];[address] | mmol/L | LAB | | | | [address];[place] | | | | | | [address] | | | | + + + + + + | K | 3.8Comment: Testing | 3.5 - 4.9 | EXTERNAL | | | | performed at [facility];[address] | mmol/L | LAB | | | | [address];[place] | | | | | | [address] | | | | + + + + + + | Cl | 99Comment: Testing | 99 - 109 mmol/L | EXTERNAL | | | | performed at [facility];[address] | | LAB | | | | [address];[place] | | | | | | [address] | | | | + + + + + + | CO2 | 21 (L)Comment: Testing | 23 - 32 mmol/L | EXTERNAL | | | | performed at [facility];[address] | | LAB | | | | [address];[place] | | | | | | [address] | | | | + + + + + + | Anion Gap | 13Comment: Testing | 5 - 20 mmol/L | EXTERNAL | | | | performed at [facility];[address] | | LAB | | | | [address];[place] | | | | | | [address] | | | | + + + + + + | Glucose, | 241 (H)Comment: Testing | 65 - 99 mg/dL | EXTERNAL | | | Fasting | performed at [facility];[address] | | LAB | | | | [address];[place] | | | | | | [address] | | | | + + + + + + | BUN | 10Comment: Testing | 8 - 25 mg/dL | EXTERNAL | | | | performed at [facility];[address] | | LAB | | | | [address];[place] | | | | | | [address] | | | | + + + + + + | Creatinine | 0.95Comment: Testing | 0.70 - 1.30 | EXTERNAL | | | | performed at [facility];[address] | mg/dL | LAB | | | | [address];[place] | | | | | | [address] | | | | + + + + + + | BUN/Creatin | 10Comment: Testing | | EXTERNAL | | | ine Ratio | performed at [facility];[address] | | LAB | | | | [address];[place] | | | | | | [address] | | | | + + + + + + | Calcium | 7.9 (L)Comment: Testing | 8.5 - 10.5 | EXTERNAL | | | | performed at [facility];[address] | mg/dL | LAB | | | | [address];[place] | | | | | | [address] | | | | + + + [...] | | | | | | at [facility];[address] [place] [address] | | | | | | [facility];[place] [address] | | | | + + + [...] | | | Fingerstick | performed at [facility];[address] | | LAB | | | | [address];[place], [place] | | | | | | [address] | | | | + + + [...] EXTERNAL | | | | performed at [facility];[address] | | LAB | | | | [address];[place] | | | | | | [address] | | | | + + + [...] LAB | | | | performed at [facility];[address] | | | | | | [address];[place], [place] | | | | | | [address] | | | | + + + [...] EXTERNAL | | | | performed at [facility];[address] | mmol/L | LAB | | | | [address];[place] | | | | | | [address] | | | | + + + + + + | K | 3.8Comment: SLT | 3.5 - 4.9 | EXTERNAL | | | | HEMOLYSISTesting | mmol/L | LAB | | | | performed at [facility];[address] | | | | | | [address];[place] | | | | | | [address] | | | | + + + + + + | Cl | 102Comment: Testing | 99 - 109 mmol/L | EXTERNAL | | | | performed at [facility];[address] | | LAB | | | | [address];[place] | | | | | | [address] | | | | + + + + + + | CO2 | 20 (L)Comment: Testing | 23 - 32 mmol/L | EXTERNAL | | | | performed at [facility];[address] | | LAB | | | | [address];[place] | | | | | | [address] | | | | + + + + + + | Anion Gap | 12Comment: Testing | 5 - 20 mmol/L | EXTERNAL | | | | performed at [facility];[address] | | LAB | | | | [address];[place] | | | | | | [address] | | | | + + + + + + | Glucose, | 250 (H)Comment: Testing | 65 - 99 mg/dL | EXTERNAL | | | Fasting | performed at [facility];[address] | | LAB | | | | [address];[place] | | | | | | [address] | | | | + + + + + + | BUN | 8Comment: Testing | 8 - 25 mg/dL | EXTERNAL | | | | performed at [facility];[address] | | LAB | | | | [address];[place] | | | | | | [address] | | | | + + + + + + | Creatinine | 0.83Comment: Testing | 0.70 - 1.30 | EXTERNAL | | | | performed at [facility];888 | mg/dL | LAB | | | | [address];[place] | | | | | | [address] | | | | + + + + + + | BUN/Creatin | 10Comment: Testing | | EXTERNAL | | | ine Ratio | performed at [facility];[address] | | LAB | | | | [address];[place] | | | | | | [address] | | | | + + + + + + | Calcium | 7.8 (L)Comment: Testing | 8.5 - 10.5 | EXTERNAL | | | | performed at [facility];[address] | mg/dL | LAB | | | | [address];[place], [place] | | | | | | [address] | | | | + + + [...] | | | | | | at [facility];[address];[place] [address] | | | | + + + [...] | | | Fingerstick | performed at [facility];[address] | | LAB | | | | [address];[place] | | | | | | [address] | | | | + + + [...] EXTERNAL | | | | performed at [facility];[address] | | LAB | | | | [address];[place], [place] | | | | | | [address] | | | | + + + [...] EXTERNAL | | | | performed at [facility] | | LAB | | | | [address] [facility];[place], [place] | | | | | | [address] | | | | + + + [...] EXTERNAL | | | | performed at [facility];888 | mmol/L | LAB | | | | [address];[place] | | | | | | [address] | | | | + + + + + + | K | 3.3 (L)Comment: Testing | 3.5 - 4.9 | EXTERNAL | | | | performed at [facility];888 | mmol/L | LAB | | | | [address];[place] | | | | | | [address] | | | | + + + + + + | Cl | 106Comment: Testing | 99 - 109 mmol/L | EXTERNAL | | | | performed at [facility];[address] | | LAB | | | | [address];[place] | | | | | | [address] | | | | + + + + + + | CO2 | 16 (L)Comment: Testing | 23 - 32 mmol/L | EXTERNAL | | | | performed at [facility];[address] | | LAB | | | | [address];[place] | | | | | | [address] | | | | + + + + + + | Anion Gap | 14Comment: Testing | 5 - 20 mmol/L | EXTERNAL | | | | performed at [facility];[address] | | LAB | | | | [address];[place] | | | | | | [address] | | | | + + + + + + | Glucose, | 340 (H)Comment: Testing | 65 - 99 mg/dL | EXTERNAL | | | Fasting | performed at [facility];[address] | | LAB | | | | [address];[place] | | | | | | [address] | | | | + + + + + + | BUN | 7 (L)Comment: Testing | 8 - 25 mg/dL | EXTERNAL | | | | performed at [facility];[address] | | LAB | | | | [address];[place] | | | | | | [address] | | | | + + + + + + | Creatinine | 0.70Comment: Testing | 0.70 - 1.30 | EXTERNAL | | | | performed at [facility];888 | mg/dL | LAB | | | | [address];[place] | | | | | | [address] | | | | + + + + + + | BUN/Creatin | 10Comment: Testing | | EXTERNAL | | | ine Ratio | performed at [facility];[address] | | LAB | | | | [address];[place] | | | | | | [address] | | | | + + + + + + | Calcium | 6.9 (L)Comment: Testing | 8.5 - 10.5 | EXTERNAL | | | | performed at [facility];888 | mg/dL | LAB | | | | [address];[place] | | | | | | [address] | | | | + + + [...] | | | | | | at [facility];[address];[place] [address] | | | | + + + [...] | | | Fingerstick | performed at [facility];[address] | | LAB | | | | [address];[place], [place] | | | | | | [address] | | | | + + + [...] | | | Fingerstick | performed at [facility];[address] | | LAB | | | | [address];[place] | | | | | | [address] | | | | + + + [...] | | | Fingerstick | performed at [facility];[address] | | LAB | | | | [address];[place] | | | | | | [address] | | | | + + + [...] | | | Fingerstick | performed at [facility];[address] | | LAB | | | | [address];[place] | | | | | | [address] | | | | + + + [...] EXTERNAL | | | | performed at [facility];[address] | | LAB | | | | [address];[place], [place] | | | | | | [address] | | | | + + + [...] EXTERNAL | | | | performed at [facility];[address] | | LAB | | | | [address];[place] | | | | | | [address] | | | | + + + [...] EXTERNAL | | | | performed at [facility];888 | mmol/L | LAB | | | | [address];[place] | | | | | | [address] | | | | + + + + + + | K | 3.1 (L)Comment: Testing | 3.5 - 4.9 | EXTERNAL | | | | performed at [facility];888 | mmol/L | LAB | | | | [address];[place] | | | | | | [address] | | | | + + + + + + | Cl | 107Comment: Testing | 99 - 109 mmol/L | EXTERNAL | | | | performed at [facility];[address] | | LAB | | | | [address];[place] | | | | | | [address] | | | | + + + + + + | CO2 | 16 (L)Comment: Testing | 23 - 32 mmol/L | EXTERNAL | | | | performed at [facility];[address] | | LAB | | | | [address];[place] | | | | | | [address] | | | | + + + + + + | Anion Gap | 13Comment: Testing | 5 - 20 mmol/L | EXTERNAL | | | | performed at [facility];[address] | | LAB | | | | [address];[place] | | | | | | [address] | | | | + + + + + + | Glucose, | 173 (H)Comment: Testing | 65 - 99 mg/dL | EXTERNAL | | | Fasting | performed at [facility];[address] | | LAB | | | | [address];[place] | | | | | | [address] | | | | + + + + + + | BUN | 7 (L)Comment: Testing | 8 - 25 mg/dL | EXTERNAL | | | | performed at [facility];[address] | | LAB | | | | [address];[place] | | | | | | [address] | | | | + + + + + + | Creatinine | 0.63 (L)Comment: Testing | 0.70 - 1.30 | EXTERNAL | | | | performed at [facility];888 | mg/dL | LAB | | | | [address];[place] | | | | | | [address] | | | | + + + + + + | BUN/Creatin | 11Comment: Testing | | EXTERNAL | | | ine Ratio | performed at [facility];[address] | | LAB | | | | [address];[place] | | | | | | [address] | | | | + + + + + + | Calcium | 7.2 (L)Comment: Testing | 8.5 - 10.5 | EXTERNAL | | | | performed at [facility];888 | mg/dL | LAB | | | | [facility];[place], [place] | | | | | | [address] | | | | + + + [...] | | | | | | at [facility];[address];[place] [address] | | | | + + + [...] | | | Fingerstick | performed at [facility] | | LAB | | | | [address];[place] | | | | | | [address] | | | | + + + [...] | | | Fingerstick | performed at [facility];[address] | | LAB | | | | [address];[place], [place] | | | | | | [address] | | | | + + + [...] | | | Fingerstick | performed at [facility];[address] | | LAB | | | | [address];[place] | | | | | | [address] | | | | + + + [...] + + | Historically converted procedure from [facility] Epic environment | EXTERNAL LAB | [...] | | | Fingerstick | performed at [facility];[address] | | LAB | | | | [address];[place], [place] | | | | | | [address] | | | | + + + [...] EXTERNAL | | | | performed at [facility], [address] | K/uL | LAB | | | | [address], | | | | | | [place] [address] | | | | + + + + + + | RED CELL | 3.17 (L)Comment: Testing | 4.20 - 5.70 | EXTERNAL | | | COUNT | performed at [facility], [address] | M/uL | LAB | | | | [address], | | | | | | [place] [address] | | | | + + + + + + | Hgb | 10.2 (L)Comment: Testing | 13.2 - 17.0 | EXTERNAL | | | | performed at [facility], [address] | g/dL | LAB | | | | [address], | | | | | | [place] [address] | | | | + + + + + + | Hematocrit, | 29.6 (L)Comment: Testing | 39.0 - 50.0 % | EXTERNAL | | | POC | performed at [facility], [address] | | LAB | | | | [address], | | | | | | [place] [address] | | | | + + + + + + | MCV | 93.3Comment: Testing | 80.0 - 100.0 fl | EXTERNAL | | | | performed at [facility], [address] | | LAB | | | | [address], | | | | | | [place] [address] | | | | + + + + + + | MCH | 32.0Comment: Testing | 27.0 - 34.0 pg | EXTERNAL | | | | performed at [facility], [address] | | LAB | | | | [address], | | | | | | [place] [address] | | | | + + + + + + | MCHC | 34.3Comment: Testing | 32.0 - 35.5 | EXTERNAL | | | | performed at [facility], [address] | g/dL | LAB | | | | [address], | | | | | | [place] [address] | | | | + + + + + + | RDW-CV | 46.4Comment: Testing | 37 - 53 fl | EXTERNAL | | | | performed at [facility], [address] | | LAB | | | | [address], | | | | | | [place] [address] | | | | + + + + + + | Platelet | 209Comment: Testing | 150 - 400 K/uL | EXTERNAL | | | Count | performed at [facility], [address] | | LAB | | | Plasma | [address], | | | | | | [place] [address] | | | | + + + + + + | MPV | 7.5Comment: Testing | fl | EXTERNAL | | | | performed at [facility], [address] | | LAB | | | | [address], | | | | | | [place] [address] | | | | + + + + + + | Differentia | AUTOMATEDComment: | | EXTERNAL | | | l Type | Testing performed at | | LAB | | | | [facility], [address] | | | | | | [place] | | | | | | [address] | | | | + + + + + + | % Segmented | 78.26Comment: Testing | % | EXTERNAL | | | | performed at [facility], [address] | | LAB | | | Neutrophils | [address], | | | | | | [place] [address] | | | | + + + + + + | % | 14.07Comment: Testing | % | EXTERNAL | | | Lymphocytes | performed at [facility], [address] | | LAB | | | | [address], | | | | | | [place] [address] | | | | + + + + + + | % Monocytes | 6.80Comment: Testing | % | EXTERNAL | | | | performed at [facility], [address] | | LAB | | | | [address], | | | | | | [place] [address] | | | | + + + + + + | % | 0.69Comment: Testing | % | EXTERNAL | | | Eosinophils | performed at [facility], [address] | | LAB | | | | [address], | | | | | | [place] [address] | | | | + + + + + + | % Basophils | 0.18Comment: Testing | % | EXTERNAL | | | | performed at [facility], [address] | | LAB | | | | [address], | | | | | | [place] [address] | | | | + + + + + + | Absolute | 6.75Comment: Testing | 1.90 - 7.40 | EXTERNAL | | | Segmented | performed at [facility], [address] | K/uL | LAB | | | Neutrophils | [address], | | | | | | [place] [address] | | | | + + + + + + | Absolute | 1.21Comment: Testing | 1.00 - 3.90 | EXTERNAL | | | Lymphocytes | performed at [facility], [address] | K/uL | LAB | | | | [address], | | | | | | [place] [address] | | | | + + + + + + | Absolute | 0.59Comment: Testing | 0.00 - 0.80 | EXTERNAL | | | Monocytes | performed at [facility], [address] | K/uL | LAB | | | | [address], | | | | | | [place] [address] | | | | + + + + + + | Absolute | 0.06Comment: Testing | 0.00 - 0.50 | EXTERNAL | | | Eosinophils | performed at [facility], [address] | K/uL | LAB | | | | [address], | | | | | | [place] [address] | | | | + + + + + + | Absolute | 0.02Comment: Testing | 0.00 - 0.10 | EXTERNAL | | | Basophils | performed at [facility], [address] | K/uL | LAB | | | | [address], | | | | | | [place] [address] | | | | + + + [...] EXTERNAL | | | | performed at [facility];[address] | | LAB | | | | [address];[place], [place] | | | | | | [address] | | | | + + + [...] EXTERNAL | | | | performed at [facility] | | LAB | | | | [facility];[place], [place] | | | | | | [address] | | | | + + + [...] EXTERNAL | | | | performed at [facility];888 | mmol/L | LAB | | | | [address];[place] | | | | | | [address] | | | | + + + + + + | K | 2.9 (L)Comment: Testing | 3.5 - 4.9 | EXTERNAL | | | | performed at [facility];888 | mmol/L | LAB | | | | [address];[place] | | | | | | [address] | | | | + + + + + + | Cl | 108Comment: Testing | 99 - 109 mmol/L | EXTERNAL | | | | performed at [facility];[address] | | LAB | | | | [address];[place] | | | | | | [address] | | | | + + + + + + | CO2 | 15 (L)Comment: Testing | 23 - 32 mmol/L | EXTERNAL | | | | performed at [facility];[address] | | LAB | | | | [address];[place] | | | | | | [address] | | | | + + + + + + | Anion Gap | 14Comment: Testing | 5 - 20 mmol/L | EXTERNAL | | | | performed at [facility];[address] | | LAB | | | | [address];[place] | | | | | | [address] | | | | + + + + + + | Glucose, | 197 (H)Comment: Testing | 65 - 99 mg/dL | EXTERNAL | | | Fasting | performed at [facility];[address] | | LAB | | | | [address];[place] | | | | | | [address] | | | | + + + + + + | BUN | 8Comment: Testing | 8 - 25 mg/dL | EXTERNAL | | | | performed at [facility];[address] | | LAB | | | | [address];[place] | | | | | | [address] | | | | + + + + + + | Creatinine | 0.64 (L)Comment: Testing | 0.70 - 1.30 | EXTERNAL | | | | performed at [facility];888 | mg/dL | LAB | | | | [address];[place] | | | | | | [address] | | | | + + + + + + | BUN/Creatin | 12Comment: Testing | | EXTERNAL | | | ine Ratio | performed at [facility];[address] | | LAB | | | | [address];[place] | | | | | | [address] | | | | + + + + + + | Calcium | 7.1 (L)Comment: Testing | 8.5 - 10.5 | EXTERNAL | | | | performed at [facility];888 | mg/dL | LAB | | | | [address];[place] | | | | | | [address] | | | | + + + [...] | | | | | | at [facility];[address];[place] [address] | | | | + + + [...] | | | Fingerstick | performed at [facility];[address] | | LAB | | | | [address];[place], [place] | | | | | | [address] | | | | + + + [...] | | | Fingerstick | performed at [facility];[address] | | LAB | | | | [address];[place] | | | | | | [address] | | | | + + + [...] | | | Fingerstick | performed at [facility];[address] | | LAB | | | | [address];[place] | | | | | | [address] | | | | + + + [...] | | | Fingerstick | performed at [facility] | | LAB | | | | [address];[place] | | | | | | [address] | | | | + + + [...] EXTERNAL | | | | performed at [facility];[address] | | LAB | | | | [address];[place], [place] | | | | | | [address] | | | | + + + [...] EXTERNAL | | | | performed at [facility];[address] | | LAB | | | | [address];[place], [place] | | | | | | [address] | | | | + + + [...] EXTERNAL | | | | performed at [facility];888 | mmol/L | LAB | | | | [address];[place] | | | | | | [address] | | | | + + + + + + | K | 3.0 (L)Comment: Testing | 3.5 - 4.9 | EXTERNAL | | | | performed at [facility];888 | mmol/L | LAB | | | | [address];[place] | | | | | | [address] | | | | + + + + + + | Cl | 108Comment: Testing | 99 - 109 mmol/L | EXTERNAL | | | | performed at [facility];[address] | | LAB | | | | [address];[place] | | | | | | [address] | | | | + + + + + + | CO2 | 14 (LL)Comment: CALLED | 23 - 32 mmol/L | EXTERNAL | | | | TO CODY Swain RN/CATHI AT | | LAB | | | | 0134 BY MWREAD BACK | | | | | | RESULTS VERIFIEDTesting | | | | | | performed at [facility];[address] | | | | | | [address];[place] | | | | | | [address] | | | | + + + + + + | Anion Gap | 14Comment: Testing | 5 - 20 mmol/L | EXTERNAL | | | | performed at [facility];[address] | | LAB | | | | [address];[place] | | | | | | [address] | | | | + + + + + + | Glucose, | 213 (H)Comment: Testing | 65 - 99 mg/dL | EXTERNAL | | | Fasting | performed at [facility];[address] | | LAB | | | | [address];[place] | | | | | | [address] | | | | + + + + + + | BUN | 10Comment: Testing | 8 - 25 mg/dL | EXTERNAL | | | | performed at [facility];[address] | | LAB | | | | [address];[place] | | | | | | [address] | | | | + + + + + + | Creatinine | 0.70Comment: Testing | 0.70 - 1.30 | EXTERNAL | | | | performed at [facility];888 | mg/dL | LAB | | | | [address];[place] | | | | | | [address] | | | | + + + + + + | BUN/Creatin | 14Comment: Testing | | EXTERNAL | | | ine Ratio | performed at [facility];888 | | LAB | | | | [address];[place] | | | | | | [address] | | | | + + + + + + | Calcium | 6.9 (L)Comment: Testing | 8.5 - 10.5 | EXTERNAL | | | | performed at [facility];888 | mg/dL | LAB | | | | [address];[place] | | | | | | [address] | | | | + + + [...] | | | | | | at [facility];[address] | | | | | | [address];[place] [address] | | | | + + + [...] | | | Fingerstick | performed at [facility];[address] | | LAB | | | | [address];[place], [place] | | | | | | [address] | | | | + + + [...] | | | Fingerstick | performed at [facility];888 | | LAB | | | | [address];[place] | | | | | | [address] | | | | + + + [...] | | | Fingerstick | performed at [facility];[address] | | LAB | | | | [address];[place], [place] | | | | | | [address] | | | | + + + [...] EXTERNAL | | | | performed at [facility] | | LAB | | | | [address];[place] | | | | | | [address] | | | | + + + [...] EXTERNAL | | | | performed at [facility];888 | | LAB | | | | [address];[place], [place] | | | | | | [address] | | | | + + + [...] EXTERNAL | | | | performed at [facility];888 | mmol/L | LAB | | | | [address];[place] | | | | | | [address] | | | | + + + + + + | K | 3.3 (L)Comment: Testing | 3.5 - 4.9 | EXTERNAL | | | | performed at [facility];888 | mmol/L | LAB | | | | [address];[place] | | | | | | [address] | | | | + + + + + + | Cl | 111 (H)Comment: Testing | 99 - 109 mmol/L | EXTERNAL | | | | performed at [facility];[address] | | LAB | | | | [address];[place] | | | | | | [address] | | | | + + + + + + | CO2 | 16 (L)Comment: Testing | 23 - 32 mmol/L | EXTERNAL | | | | performed at [facility];[address] | | LAB | | | | [address];[place] | | | | | | [address] | | | | + + + + + + | Anion Gap | 13Comment: Testing | 5 - 20 mmol/L | EXTERNAL | | | | performed at [facility];[address] | | LAB | | | | [address];[place] | | | | | | [address] | | | | + + + + + + | Glucose, | 125 (H)Comment: Testing | 65 - 99 mg/dL | EXTERNAL | | | Fasting | performed at [facility];[address] | | LAB | | | | [address];[place] | | | | | | [address] | | | | + + + + + + | BUN | 10Comment: Testing | 8 - 25 mg/dL | EXTERNAL | | | | performed at [facility];[address] | | LAB | | | | [address];[place] | | | | | | [address] | | | | + + + + + + | Creatinine | 0.82Comment: Testing | 0.70 - 1.30 | EXTERNAL | | | | performed at [facility];888 | mg/dL | LAB | | | | [address];[place] | | | | | | [address] | | | | + + + + + + | BUN/Creatin | 12Comment: Testing | | EXTERNAL | | | ine Ratio | performed at [facility];[address] | | LAB | | | [address];[place] | | | | | | [address] | | | | + + + + + + | Calcium | 6.6 (L)Comment: Testing | 8.5 - 10.5 | EXTERNAL | | | | performed at [facility];888 | mg/dL | LAB | | | | [address];[place], [place] | | | | | | [address] | | | | + + + [...] | | | | | | at [facility];[address];[place] [address] | | | | + + + [...] | | | Fingerstick | performed at [facility];888 | | LAB | | | | [address];[place] | | | | | | [address] | | | | + + + [...] | | | Fingerstick | performed at [facility];[address] | | LAB | | | | [address];[place], [place] | | | | | | [address] | | | | + + + [...] | | | Fingerstick | performed at [facility];888 | | LAB | | | | [address];[place] | | | | | | [address] | | | | + + + [...] | | | Fingerstick | performed at [facility];[address] | | LAB | | | | [address];[place] | | | | | | [address] | | | | + + + [...] EXTERNAL | | | | performed at [facility];[address] | | LAB | | | | [address];[place] | | | | | | [address] | | | | + + + [...] EXTERNAL | | | | performed at [facility];888 | | LAB | | | | [address];[place], [place] | | | | | | [address] | | | | + + + [...] | | LAB | | | | [facility] [address] | [address];[place] [address] | | | | + + + [...] EXTERNAL | | | | performed at [facility];888 | mmol/L | LAB | | | | [address];[place] | | | | | | [address] | | | | + + + + + + | K | 2.7 (LL)Comment: CALLED | 3.5 - 4.9 | EXTERNAL | | | | NURSING UNITREAD BACK | mmol/L | LAB | | | | RESULTS VERIFIEDIVAN K | | | | | | AT 1748 JGRTesting | | | | | | performed at [facility];[address] | | | | | | [address];[place] | | | | | | [address] | | | | + + + + + + | Cl | 110 (H)Comment: Testing | 99 - 109 mmol/L | EXTERNAL | | | | performed at [facility];[address] | | LAB | | | | [address];[place] | | | | | | [address] | | | | + + + + + + | CO2 | 15 (L)Comment: Testing | 23 - 32 mmol/L | EXTERNAL | | | | performed at [facility];[address] | | LAB | | | [address];[place] | | | | | | [address] | | | | + + + + + + | Anion Gap | 15Comment: Testing | 5 - 20 mmol/L | EXTERNAL | | | | performed at [facility];[address] | | LAB | | | [address];[place] | | | | | | [address] | | | | + + + + + + | Glucose, | 133 (H)Comment: Testing | 65 - 99 mg/dL | EXTERNAL | | | Fasting | performed at [facility];[address] | | LAB | | | [address];[place] | | | | | | [address] | | | | + + + + + + | BUN | 14Comment: Testing | 8 - 25 mg/dL | EXTERNAL | | | | performed at [facility];[address] | | LAB | | | | [address];[place] | | | | | | [address] | | | | + + + + + + | Creatinine | 0.92Comment: Testing | 0.70 - 1.30 | EXTERNAL | | | | performed at [facility];888 | mg/dL | LAB | | | | [address];[place] | | | | | | [address] | | | | + + + + + + | BUN/Creatin | 15Comment: Testing | | EXTERNAL | | | ine Ratio | performed at [facility];[address] | | LAB | | | | [address];[place] | | | | | | [address] | | | | + + + + + + | Calcium | 6.5 (L)Comment: Testing | 8.5 - 10.5 | EXTERNAL | | | | performed at [facility];888 | mg/dL | LAB | | | | [address];[place] | | | | | | [address] | | | | + + + [...] | | | | | | at [facility];[address] | | | | [address];[place] [address] | | | | + + + [...] | | | Fingerstick | performed at [facility];[address] | | LAB | | | | [address];[place], [place] | | | | | | [address] | | | | + + + [...] | | | Fingerstick | performed at [facility];[address] | | LAB | | | | [address];[place] | | | | | | [address] | | | | + + + [...] | | | Fingerstick | performed at [facility];[address] | | LAB | | | | [address];[place] | | | | | | [address] | | | | + + + [...] | | | Fingerstick | performed at [facility];[address] | | LAB | | | | [address];[place] | | | | | | [address] | | | | + + + [...] EXTERNAL | | | | performed at [facility];[address] | | LAB | | | | [address];[place], [place] | | | | | | [address] | | | | + + + [...] EXTERNAL | | | | performed at [facility];888 | | LAB | | | | [address];[place] | | | | | | [address] | | | | + + + [...] | | LAB | | | | [facility];[address] [place] [address] | | | | | | Bl;[place] [address] | | | | + + + [...] EXTERNAL | | | | performed at [facility];888 | mmol/L | LAB | | | | [address];[place], [place] | | | | | | [address] | | | | + + + + + + | K | 3.1 (L)Comment: Testing | 3.5 - 4.9 | EXTERNAL | | | | performed at [facility];888 | mmol/L | LAB | | | | [address];[place] | | | | | | [address] | | | | + + + + + + | Cl | 113 (H)Comment: Testing | 99 - 109 mmol/L | EXTERNAL | | | | performed at [facility];[address] | | LAB | | | | [address];[place] | | | | | | [address] | | | | + + + + + + | CO2 | 7 (LL)Comment: RESULT | 23 - 32 mmol/L | EXTERNAL | | | | READ BACK BY:CHARLES [id number] | | LAB | | | | AT 1340.EAPTesting | | | | | | performed at [facility];[address] | | | | | | [address];[place] | | | | | | [address] | | | | + + + + + + | Anion Gap | 23 (H)Comment: Testing | 5 - 20 mmol/L | EXTERNAL | | | | performed at [facility];[address] | | LAB | | | | [address];[place] | | | | | | [address] | | | | + + + + + + | Glucose, | 206 (H)Comment: Testing | 65 - 99 mg/dL | EXTERNAL | | | Fasting | performed at [facility];[address] | | LAB | | | [address];[place] | | | | | | [address] | | | | + + + + + + | BUN | 18Comment: Testing | 8 - 25 mg/dL | EXTERNAL | | | | performed at [facility];[address] | | LAB | | | | [address];[place] | | | | | | [address] | | | | + + + + + + | Creatinine | 0.84Comment: Testing | 0.70 - 1.30 | EXTERNAL | | | | performed at [facility];888 | mg/dL | LAB | | | | [address];[place] | | | | | | [address] | | | | + + + + + + | BUN/Creatin | 21Comment: Testing | | EXTERNAL | | | ine Ratio | performed at [facility];[address] | | LAB | | | | [address];[place] | | | | | | [address] | | | | + + + + + + | Calcium | 6.7 (L)Comment: Testing | 8.5 - 10.5 | EXTERNAL | | | | performed at [facility];888 | mg/dL | LAB | | | | [address];[place] | | | | | | [address] | | | | + + + [...] | | | | | | at [facility];[address] | | | | | [address];[place] [address] | | | | + + + [...] | | | Fingerstick | performed at [facility];[address] | | LAB | | | | [address];[place] | | | | | | [address] | | | | + + + [...] | | | Fingerstick | performed at [facility];[address] | | LAB | | | | [address];[place] | | | | | | [address] | | | | + + + [...] EXTERNAL | | | | performed at [facility];888 | | LAB | | | | [address];[place] | | | | | | [address] | | | | + + + [...] EXTERNAL | | | | performed at [facility];888 | | LAB | | | | [address];[place], [place] | | | | | | [address] | | | | + + + [...] EXTERNAL | | | | performed at [facility];888 | mmol/L | LAB | | | [address];[place] | | | | | | [address] | | | | + + + + + + | K | 3.0 (L)Comment: Testing | 3.5 - 4.9 | EXTERNAL | | | | performed at [facility];888 | mmol/L | LAB | | | | [address];[place] | | | | | | [address] | | | | + + + + + + | Cl | 113 (H)Comment: Testing | 99 - 109 mmol/L | EXTERNAL | | | | performed at [facility];[address] | | LAB | | | | [address];[place] | | | | | | [address] | | | | + + + + + + | CO2 | 6 (LL)Comment: CALLED | 23 - 32 mmol/L | EXTERNAL | | | | RESULTSREAD BACK RESULTS | | LAB | | | | [id number]/KATIA Scott AT | | | | | | 1110 BY SALTesting | | | | | | performed at [facility];[address] | | | | | | [address];[place] | | | | | | [address] | | | | + + + + + + | Anion Gap | 27 (H)Comment: Testing | 5 - 20 mmol/L | EXTERNAL | | | | performed at [facility];[address] | | LAB | | | | [address];[place] | | | | | | [address] | | | | + + + + + + | Glucose, | 214 (H)Comment: Testing | 65 - 99 mg/dL | EXTERNAL | | | Fasting | performed at [facility];[address] | | LAB | | | | [address];[place] | | | | | | [address] | | | | + + + + + + | BUN | 21Comment: Testing | 8 - 25 mg/dL | EXTERNAL | | | | performed at [facility];[address] | | LAB | | | | [address];[place] | | | | | | [address] | | | | + + + + + + | Creatinine | 0.87Comment: Testing | 0.70 - 1.30 | EXTERNAL | | | | performed at [facility];888 | mg/dL | LAB | | | | [address];[place] | | | | | | [address] | | | | + + + + + + | BUN/Creatin | 24Comment: Testing | | EXTERNAL | | | ine Ratio | performed at [facility];[address] | | LAB | | | | [address];[place] | | | | | | [address] | | | | + + + + + + | Calcium | 6.8 (L)Comment: Testing | 8.5 - 10.5 | EXTERNAL | | | | performed at [facility];888 | mg/dL | LAB | | | | [address];[place], [place] | | | | | | [address] | | | | + + + [...] | | | | | | at [facility];[address] [facility] | | | | | | [address];[place] [address] | | | | + + + [...] | | | Fingerstick | performed at [facility];[address] | | LAB | | | | [address];[place] | | | | | | [address] | | | | + + + [...] | | | Fingerstick | performed at [facility];[address] | | LAB | | | | [address];[place], [place] | | | | | | [address] | | | | + + + [...] | | LAB | | | | [facility];[address] | | | | | | [facility];[place] [address] | | | | + + + [...] EXTERNAL | | | | performed at [facility];888 | K/uL | LAB | | | | [address];[place] | | | | | | [address] | | | | + + + + + + | RED CELL | 2.80 (L)Comment: Testing | 4.20 - 5.70 | EXTERNAL | | | COUNT | performed at [facility];888 | M/uL | LAB | | | | [address];[place] | | | | | | [address] | | | | + + + + + + | Hgb | 9.1 (L)Comment: Testing | 13.2 - 17.0 | EXTERNAL | | | | performed at [facility];888 | g/dL | LAB | | | | [address];[place] | | | | | | [address] | | | | + + + + + + | Hematocrit, | 26.7 (L)Comment: Testing | 39.0 - 50.0 % | EXTERNAL | | | POC | performed at [facility];[address] | | LAB | | | | [address];[place] | | | | | | [address] | | | | + + + + + + | MCV | 95.4Comment: Testing | 80.0 - 100.0 fl | EXTERNAL | | | | performed at [facility];888 | | LAB | | | | [address];[place] | | | | | | [address] | | | | + + + + + + | MCH | 32.3Comment: Testing | 27.0 - 34.0 pg | EXTERNAL | | | | performed at [facility];888 | | LAB | | | | [address];[place] | | | | | | [address] | | | | + + + + + + | MCHC | 33.9Comment: Testing | 32.0 - 35.5 | EXTERNAL | | | | performed at [facility];888 | g/dL | LAB | | | | [address];[place] | | | | | | [address] | | | | + + + + + + | RDW-CV | 47.3Comment: Testing | 37 - 53 fl | EXTERNAL | | | | performed at [facility];888 | | LAB | | | | [address];[place] | | | | | | [address] | | | | + + + + + + | Platelet | 190Comment: Testing | 150 - 400 K/uL | EXTERNAL | | | Count | performed at [facility];888 | | LAB | | | Plasma | [address];[place] | | | | | | [address] | | | | + + + + + + | MPV | 7.2Comment: Testing | fl | EXTERNAL | | | | performed at [facility];[address] | | LAB | | | | [address];[place] | | | | | | [address] | | | | + + + + + + | Differentia | MANUALComment: Testing | | EXTERNAL | | | l Type | performed at [facility];[address] | | LAB | | | | [address];[place] | | | | | | [address] | | | | + + + + + + | Segmented | 59Comment: Testing | % | EXTERNAL | | | Neutrophils | performed at [facility];888 | | LAB | | | Manual | [address];[place] | | | | | | [address] | | | | + + + + + + | % Bands | 24Comment: Testing | % | EXTERNAL | | | | performed at [facility];[address] | | LAB | | | | [address];[place] | | | | | | [address] | | | | + + + + + + | % | 2Comment: Testing | % | EXTERNAL | | | Metamyelocy | performed at [facility];888 | | LAB | | | [address] | [address];[place] | | | | | | [address] | | | | + + + + + + | Lymphocytes | 12Comment: Testing | % | EXTERNAL | | | Manual | performed at [facility];888 | | LAB | | | | [address];[place] | | | | | | [address] | | | | + + + + + + | Monocytes | 3Comment: Testing | % | EXTERNAL | | | Manual | performed at [facility];[address] | | LAB | | | | [address];[place] | | | | | | [address] | | | | + + + + + + | Absolute | 5.18Comment: Testing | 1.90 - 7.40 | EXTERNAL | | | Neutrophils | performed at [facility];888 | K/uL | LAB | | | | [address];[place] | | | | | | [address] | | | | + + + + + + | Bands | 2.10 (H)Comment: Testing | 0.00 - 0.20 | EXTERNAL | | | Manual | performed at [facility];888 | K/uL | LAB | | | | [address];[place] | | | | | | [address] | | | | + + + + + + | Absolute | 0.18 (H)Comment: Testing | K/uL | EXTERNAL | | | Metamyelocy | performed at [facility];888 | | LAB | | | edilosn | [address];[place] | | | | | | [address] | | | | + + + + + + | Absolute | 1.05Comment: Testing | 1.00 - 3.90 | EXTERNAL | | | Lymphocytes | performed at [facility];888 | K/uL | LAB | | | | [address];[place] | | | | | | [address] | | | | + + + + + + | Absolute | 0.26Comment: Testing | 0.00 - 0.80 | EXTERNAL | | | Monocytes | performed at [facility];888 | K/uL | LAB | | | | [address];[place] | | | | | | [address] | | | | + + + + + + | Platelet | ADEQUATEComment: Testing | | EXTERNAL | | | Estimate | performed at [facility];[address] | | LAB | | | | [address];[place] | | | | | | [address] | | | | + + + + + + | RBC | NORMALComment: Testing | | EXTERNAL | | | Morphology | performed at [facility];[address] | | LAB | | | | [address];[place] | | | | | | [address] | | | | + + + [...] | | | | | performed at [facility];888 | | | | | | [facility];[place], [place] | | | | | | [address] | | | | + + + [...] | | | | | performed at [facility];888 | | | | | | [address];[place], [place] | | | | | | [address] | | | | + + + [...] | EXTERNAL | | | A1c | [place] Diabetes | | LAB | | | [...] performed at [facility], [address] | | | | | | [address] [facility], | | | | | | [place] [address] | | | | + + + [...] | | | | | | [facility], | | | | | | [place] [address] | | | | + + + [...] | | | | | performed at [facility];[address] | | | | | | [address];[place] | | | | | | [address] | | | | + + + [...] | | | | | performed at [facility];[address] | | | | | | [address];[place] | | | | | | [address] | | | | + + + [...] | | | | | performed at [facility];[address] | | | | | | [address];[place] | | | | | | [address] | | | | + + + [...] | | | | | performed at [facility];[address] | | | | | | [address];[place] | | | | | | [address] | | | | + + + [...] | | | | | performed at [facility];[address] | | | | | | [address];[place] | | | | | | [address] | | | | + + + + + + | BUN | 15Comment: POOR QUALITY | 8 - 25 mg/dL | EXTERNAL | | | | SPECIMEN FROM THE LINE | | LAB | | | | DRAW, CHARGES CREDITED, | | | | | | PATIENT REDRAWN.Testing | | | | | | performed at [facility];[address] | | | | | | [address];[place] | | | | | | [address] | | | | + + + [...] | | | | | performed at [facility];[address] | | | | | | [address];[place] | | | | | | [address] | | | | + + + + + + | BUN/Creatin | 26Comment: POOR QUALITY | | EXTERNAL | | | ine Ratio | SPECIMEN FROM THE LINE | | LAB | | | | DRAW, CHARGES CREDITED, | | | | | | PATIENT REDRAWN.Testing | | | | | | performed at [facility];[address] | | | | | | [address];[place] | | | | | | [address]LSASJBIDD ON 02/05 | | | | | [...] | | | | | | at [facility];[address] [place] [address] | | | | | | [facility];[place] [address] | | | | + + + [...] | | | Fingerstick | performed at [facility];888 | | LAB | | | | [address];[place], [place] | | | | | | [address] | | | | + + + [...]
--- OUTSIDE RECORDS SUMMARY | ~2019-07-04 | XMS | Encounter Summary ---
Demographics + + + | Address | [address] | | | [place] [address] | + + + | Home Phone [...] Providers + +------+ + | Care Labor Specialist Name | Role | Phone | [...] + + | 10/03/ | Hospital | [facility] | Edgar Nunez, | Diabetic | | 2017 - | Encounter | [facility] ICU [address] | MD [address] | ketoacidosis without | | | | [place], | [place], [place] | coma associated | | 10/04/ | | [place] [address] | [address] | with type 1 diabetes | | 2017 | | [phone] | | mellitus (HCC) | | | | | Efren Burnham P, | (Primary Dx); | | | | | DO [address] | Hyperkalemia; Acute | | | | | MS LLH21 [place], | kidney injury (HCC); | | | | | [place] [address] | Acute hyperkalemia; | | | | | [phone] | Acute renal | | | | [...] type | | | | | | ([facility]); Sensation of | | | [...] last month, he was admitted here at [facility] 09/26 through 09/28 and then week later was admitted at [facility] for the DKA a s well. According [...] by: Siddhartha Pierson MD, 10/04/2016 8:33 [facility] documented in this encounter Discharge Instructions [...] resources below can help you learn more: [place] [employer] [id number].[email or web address] Lighthouse [id number].lighthouse.org National Eye [id number] [email or web address].nei.nih.gov Hormone Health [id number] [email or web address].[email or web address] Date Last Reviewed: 10/22/201519992691-7317 [employer]. [address] [place] [address], [place] [address]. All righ ts reserved. This information is [...] bimart garcia and [facility] garcia [x] [place] FIELD SERVICER (Prescription Monitoring Program) [x] [employer] insurance reported [...] performed and electronically signed by Morenita García Board Writer 7 19:25 Reviewed by: Hannah Mijares PHARMD [...] + | [facility] | [address] | [place] | [phone] | | [facility] | | [address] | | | - LABORATORY | | [...] [address] | [place] | [phone] | | [facility] | | [address] | | | - LABORATORY | | [...] | | | | | mg/dL | [facility] | | | | | | MEDICAL | | | | | | CENTER - | | | | | | LABORATORY | | + + + + + + | eGFR if not | >60Comment: GLOMERULAR | >=60 | [facility] | | | | FILTRATION | mL/min/1.73m2 | [facility] | | | SRI LANKAN | RATE,ESTIMATED | | MEDICAL | | | | mL/min/1.37x3Mbmq than | | CENTER - | | [...] | | | | | mg/dL | [facility] | | | | | [...] + | [facility] | [address] | [place] | [phone] | | [facility] | | [address] | | | - LABORATORY | | [...] [address] | [place] | [phone] | | [facility] | | [address] | | | - LABORATORY | | [...] [address] | [place] | [phone] | | [facility] | | [address] | | | - LABORATORY | | [...] [address] | [place] | [phone] | | [facility] | | [address] | | | - LABORATORY | | [...] + | [facility] | [address] | [place] | [phone] | | [facility] | | [address] | | | - LABORATORY | | [...] [address] | [place] | [phone] | | [facility] | | [address] | | | - LABORATORY | | [...] + | [facility] | [address] | [place] | [phone] | | [facility] | | [address] | | | - LABORATORY | | [...] + | [facility] | [address] | [place] | [phone] | | [facility] | | [address] | | | - LABORATORY | | [...] mL/min/1.73m2 | [facility] | | | SRI LANKAN | RATE,ESTIMATED | | MEDICAL | | | | mL/min/1.02v9Aixj than | | CENTER - | | [...] [address] | [place] | [phone] | | [facility] | | [address] | | | - LABORATORY | | [...] | | | | | | [employer] | | | | | [...] ST. | [address] | [place], [place] | [phone] | | [facility] | | [...] [address] | [place] | [phone] | | [facility] | | [address] | | | - LABORATORY | | [...] [address] | [place] | [phone] | | [facility] | | [address] | | | - LABORATORY | | [...] [address] | [place] | [phone] | | [facility] | | [address] | | | - LABORATORY | | [...] + | [facility] | [address] | [place] | [phone] | | [facility] | | [address] | | | - LABORATORY | | [...] + | [facility] | [address] | [place] | [phone] | | [facility] | | [address] | | | - LABORATORY | | [...] mL/min/1.73m2 | [facility] | | | SRI LANKAN | RATE,ESTIMATED | | MEDICAL | | | | mL/min/1.72p9Hjxk than | | CENTER - | | [...] [address] | [place] | [phone] | | [facility] | | [address] | | | - LABORATORY | | [...] [address] | [place] | [phone] | | [facility] | | [address] | | | - LABORATORY | | [...] + | [facility] | [address] | [place] | [phone] | | [facility] | | [address] | | | - LABORATORY | | [...] [address] | [place] | [phone] | | [facility] | | [address] | | | - LABORATORY | | [...] | | | Lavender | | | [facility] | | | Top Tube | | [...] [address] | [place] | [phone] | | [facility] | | [address] | | | - LABORATORY | | [...] + | [facility] | [address] | [place] | [phone] | | [facility] | | [address] | | | - LABORATORY | | [...] mL/min/1.73m2 | [facility] | | | SRI LANKAN | RATE,ESTIMATED | | MEDICAL | | | | mL/min/1.82r6Fent than | | CENTER - | | [...] | | | | | mg/dL | [facility] | | | | | | MEDICAL | | | | | | CENTER - | | | | | | LABORATORY | | + + + + + + | BUN/Creatin | 15.1 | | [facility] | | | ine Ratio | | | [facility] | | | | | [...] [address] | [place] | [phone] | | [facility] | | [address] | | | - LABORATORY | | [...] | | | | | | [employer] | | | | | [...] ST. | [address] | [place] | [phone] | | [facility] | | [address] | | | - LABORATORY | | [...] | + + + + + | [facility] | [address] | [place] | [phone] | | [facility] | | [address] | | | - LABORATORY | | [...] ST. | [address] | [place], [place] | [phone] | | [facility] | | [address] | | | - LABORATORY | | [...] + | [facility] | [address] | [place] | [phone] | | [facility] | | [address] | | | - LABORATORY | | [...] ST. | [address] | [place], [place] | [phone] | | [facility] | | [address] | | | - LABORATORY | | [...] | | | | HAWA RUBIN MD ([id number]) | | | | | | on [...] ST. | [address] | [place] | [phone] | | [facility] | | [address] | | | - LABORATORY | | [...] [address] | [place] | [phone] | | [facility] | | [address] | | | - LABORATORY | | [...] + | [facility] | [address] | [place] | [phone] | | [facility] | | [address] | | | - LABORATORY | | [...] HDL | 28 - 83 mg/dL | [facility] | | | | Reference Range as [...] [address] | [place] | [phone] | | [facility] | | [address] | | | - LABORATORY | | [...] | | | | | | [employer] | | | | | [...] [address] | [place] | [phone] | | [facility] | | [address] | | | - LABORATORY | | [...] [address] | [place] | [phone] | | [facility] | | [address] | | | - LABORATORY | | [...] [address] | [place] | [phone] | | [facility] | | [address] | | | - LABORATORY | | [...] [address] | [place] | [phone] | | [facility] | | [address] | | | - LABORATORY | | [...] | mL/min/1.73m2 | [facility] | | | SRI LANKAN | RATE,ESTIMATED | | MEDICAL | | | | mL/min/1.99h9Quzc than | | CENTER - | | [...] [address] | [place] | [phone] | | [facility] | | [address] | | | - LABORATORY | | [...] [address] | [place] | [phone] | | [facility] | | [address] | | | - LABORATORY | | [...] | | | C (101.5 F), Starting [facility] | | | | | [...] | | | | measurements. , Starting [facility] | | | | | [...] | | | | | dose on [facility] 10/03/16 at 0915 | | | [...] | | | (after last modification) on [facility] | | | | | [...] | | | | | NPO, Daytime [id number] Use NIGHT | | | | | | | DOSE for doses scheduled: | | | | | | | HS, 3AM, Nighttime [id number], | | | | | | + [...] AM PDT | | | | | [facility] 10/03/16 at 0915, If | | [...] PDT | | | | | ONCE, [facility] 10/03/16 at 0405, For 1 | [...]
--- OUTSIDE RECORDS SUMMARY | ~2019-07-04 | XMS | Encounter Summary ---
Demographics + + + | Address | [address] | | | [place] [address] | + + + | Home Phone | | + + + | Preferred Language | Unknown | + + + | Marital Status | Single | + + + | Caodaism Affiliation | 1001 | + + + | Race | Unknown | + + + | Ethnic Group | Unknown | + + + Author + + + | Author | [facility] | | | and Ryana | + + + | Organization | [facility] | | [...] Team Providers + +------+ + | Care Agricultural Economics Professor Name | Role | Phone | + +------+ + PCP | Unavailable | + +------+ + Encounter Details +--------+ + + + + | Date | Type | Department | Care Team | Description | +--------+ + + + + | 12/19/ | Hospital | [facility] | Zeus Wilcox MD, | | | 1999 - | Encounter | [place] [address] [address] | [address] [place] [address] | | | | | [place], [place] | [place] [address] | | | 12/21/ | | [address] | [phone] | | | 1999 | | [phone] | | | +--------+ + + + [...]
--- OUTSIDE RECORDS SUMMARY | ~2019-07-04 | XMS | Encounter Summary ---
Demographics + + + | Address | [address] | | | [place] [address] | + + + | Home Phone | | + + + | Preferred Language | Unknown | + + + | Marital Status | Single | + + + | Baptism Affiliation | 1001 | + + + [...] Team Providers + +------+ + | Care Blood Bank Laboratory Technologist Name | Role | Phone | + +------+ + PCP | Unavailable | + +------+ + Encounter Details +--------+ + + + + | Date | Type | Department | Care Team | Description | +--------+ + + + + | 02/23/ | [facility] | [place] | Abhi Berger | | | 2003 | Encounter | [facility] [address] | MD [address] | | | | | [address] | [place], [place] | | | | | [place] [address] | [address] | | | | | [phone] | | | +--------+ + + + [...]
--- OUTSIDE RECORDS SUMMARY | ~2019-07-04 | XMS | Encounter Summary ---
Demographics + + + | Address | [address] | | | [place] [address] | + + + | Home Phone [...] Team Providers + +------+ + | Care Company Marker Name | Role | Phone | + [...] | 05/17/ | Hospital | [facility] | Alexis, | Schizophrenia, | | 2019 - | Encounter | [facility] | DO Benjamin [address] | unspecified type | | | | CARE FLO[address] | [address] | ([facility]) (Primary Dx); | | 05/21/ | | [address] | [place] [address] | Acute psychosis | | 2019 | | [place], [place] | [phone] | (HCC); Marijuana | | | | [address] | | use; Nausea and | | | | [phone] | Tacos Brian MD | vomiting in adult; | | | | | [address] | Noncompliance with | | | | | [place], [place] | medication regimen; | | | | | [address] | Tobacco smoker | | | | | [phone] | within last 12 | | | | | | months; Type 1 | | | | | Tacos Paredes PA | diabetes mellitus | | | | | [address] | without complication | | | | | [place] [address] | (HCC); | | | | | [phone] | Schizoaffective | | | | | | disorder, bipolar | | | | | Hosea Watson, | type ([facility]); Acute | | | | | [address] [facility] | hyperkalemia | | | | | [place] [address] | | | | | | [phone] | | | | | | | | | | | | Cony Castillo, | | | | | | [address] [facility] | | | | | | [place] [address] | | | | | | [phone] | | | | | | | [...] as of this encounter Discharge Summaries Hosea Watsno MD - 05/21/2019 3:48 PM PSTFormatting of this note might be different f rom the original. Located Within [facility] Service: Hospitalist Discharge Summary Date [...] s morning. The patient was accepted to [facility] for further treatment. The patient still refuses to take his psychiatric medications. I spoke with Dr. Carrillo, who g raciously accepts the patient for the transfer. 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 Chew and tuck 1 piece every [...] to patient adilene stoner. Report given to [facility]. Security came and gave patient back his belongings. Patient sent ina john home with his mother. No other concerns noted. [facility] here to take patient to [facility]. Elisa Mendez RN 5:41 PM Elisa Marquez RN - 1 07/21/2018 5:15 PM PSTPatient's blood sugar 66. Waiting on food to arrive. [employer] [employer] juice and vu crackers given. Patient's dinner arrived. [facility] here but needing to get blood sugar sta bilized before transport. Elisa Mendez RN 5:16 PM Elisa Marquez RN - 1 07/21/2018 2:20 PM PSTNurse from [facility] [place] called to get update on patient. Nurse [...] this note might be different from the [facility] Service: Hospitalist Progress Note Hospital Day: [...] Kirkland MD - 05/20/2019 12:18 PM PST Located Within [facility] Service: Hospitalist Progress Note Hospital [...] Kirkland MD - 05/19/2019 2:57 PM PST Located Within [facility] Service: Hospitalist Progress Note Hospital [...] J?MRN: | | | | | | [id number] | | | [id number] | | | riteri | | | [...] | | | St. | | | [facility] | | | y | | | [...] | | | St. | | | [facility] | | | y | | | [...] | | | St. | | | [facility] | | | y | | | Hospit | | | al | | | Patien | | | t is | | | curren | | | tly | | | establ | | | ished | | | with | | | St | | | [facility] | | | y | | | [...] St | | | | | | [facility] | | | y | | | [...] | | | St. | | | [facility] | | | y | | | [...] | | | St. | | | [facility] | | | y H. | | [...] | | | St. | | | [facility] | | | y H. | | [...] | | | St. | | | [facility] | | | y H. | | [...] | | | St. | | | [facility] | | | y H. | | [...] | | | St. | | | [facility] | | | y H. | | [...] | | | St. | | | [facility] | | | y H. | | [...] | | | MD | | | Shadowgraph Scale Operator | | | al | | [...] | | | [id number] | | | [id number] | | | 95 | | | [...] Testing | 65 - 99 mg/dL | [facility] | | | POC | performed at [facility];[address] | | LABORATORY | | | | [address];[place] | | | | | | [address] | | | | + + + + + + + + | Specimen | + + | | + + + + + + + | Performing | Address | City/State/Zipcode | Phone Number | | Organization | | | | + + + + + | [facility] | [address] | [place] [address] | [phone] | + + + + + POC Glucose (05/21/2019 5:09 PM PST) + + + + + + | Component | Value | Ref Range | Performed | Pathologist | | | | | At | Signature | + + + + + + | Glucose, | 66Comment: Testing | 65 - 99 mg/dL | [facility] | | | POC | performed at [facility];[address] | | LABORATORY | | | | [address];[place], [place] | | | | | | [address] | | | | + + + + + + + + | Specimen | + + | | + + + + + + + | Performing | Address | City/State/Zipcode | Phone Number | | Organization | | | | + + + + + | [facility] | [address] | [place] [address] | [phone] | + + + + + POC Glucose (05/21/2019 4:51 PM PST) + + + + + + | Component | Value | Ref Range | Performed | Pathologist | | | | | At | Signature | + + + + + + | Glucose, | 66Comment: Testing | 65 - 99 mg/dL | [facility] | | | POC | performed at [facility];[address] | | LABORATORY | | | | [address];[place] | | | | | | [address] | | | | + + + + + + + + | Specimen | + + | | + + + + + + + | Performing | Address | City/State/Zipcode | Phone Number | | Organization | | | | + + + + + | [facility] | [address] | [place] [address] | [phone] | + + + + + POC Glucose (05/21/2019 3:10 PM PST) + + + + + + | Component | Value | Ref Range | Performed | Pathologist | | | | | At | Signature | + + + + + + | Glucose, | 88Comment: Testing | 65 - 99 mg/dL | [facility] | | | POC | performed at [facility];[address] | | LABORATORY | | | | [address];[place] | | | | | | [address] | | | | + + + + + + + + | Specimen | + + | | + + + + + + + | Performing | Address | City/State/Zipcode | Phone Number | | Organization | | | | + + + + + | [facility] | [address] | [place] [address] | [phone] | + + + + + POC [...] | | | POC | performed at [facility];[address] | | LABORATORY | | | | [address];[place], [place] | | | | | | [address] | | | | + + + + + + + + | Specimen | + + | | + + + + + + + | Performing | Address | City/State/Zipcode | Phone Number | | Organization | | | | + + + + + | [facility] | [address] | [place] [address] | [phone] | + + + + + POC [...] | | | POC | performed at [facility];[address] | | LABORATORY | | | | [address];[place], [place] | | | | | | [address] | | | | + + + + + + + + | Specimen | + + | | + + + + + + + | Performing | Address | City/State/Zipcode | Phone Number | | Organization | | | | + + + + + | [facility] | [address] | [place] [address] | [phone] | + + + + + Basic [...] | | | | | performed at [facility], [address] | | | | | | [facility] | | | | | | [place] [address] | | | | + + + + + + + + | Specimen | + + | Blood | + + + + + + + | Performing | Address | City/State/Zipcode | Phone Number | | Organization | | | | + + + + + | [facility] | [address] | [place] [address] | [phone] | + + + + + POC Glucose (05/21/2019 8:28 AM PST) + + + + + + | Component | Value | Ref Range | Performed | Pathologist | | | | | At | Signature | + + + + + + | Glucose, | 250 (H)Comment: Testing | 65 - 99 mg/dL | [facility] | | | POC | performed at [facility];[address] | | LABORATORY | | | | [address];[place] | | | | | | [address] | | | | + + + + + + + + | Specimen | + + | | + + + + + + + | Performing | Address | City/State/Zipcode | Phone Number | | Organization | | | | + + + + + | [facility] | [address] | [place] [address] | [phone] | + + + + + POC [...] | | | POC | performed at [facility];[address] | | LABORATORY | | | | [address];[place] | | | | | | [address] | | | | + + + + + + + + | Specimen | + + | | + + + + + + + | Performing | Address | City/State/Zipcode | Phone Number | | Organization | | | | + + + + + | [facility] | [address] | [place] [address] | [phone] | + + + + + POC Glucose (05/20/2019 6:06 PM PST) + + + + + + | Component | Value | Ref Range | Performed | Pathologist | | | | | At | Signature | + + + + + + | Glucose, | 338 (H)Comment: Testing | 65 - 99 mg/dL | [facility] | | | POC | performed at [facility];[address] | | LABORATORY | | | | [address];[place] | | | | | | [address] | | | | + + + + + + + + | Specimen | + + | | + + + + + + + | Performing | Address | City/State/Zipcode | Phone Number | | Organization | | | | + + + + + | [facility] | [address] | [place] [address] | [phone] | + + + + + POC Glucose (05/20/2019 4:35 PM PST) + + + + + + | Component | Value | Ref Range | Performed | Pathologist | | | | | At | Signature | + + + + + + | Glucose, | >400 (H)Comment: Testing | 65 - 99 mg/dL | [facility] | | | POC | performed at [facility];[address] | | LABORATORY | | | | [address];[place], [place] | | | | | | [address] | | | | + + + + + + + + | Specimen | + + | | + + + + + + + | Performing | Address | City/State/Zipcode | Phone Number | | Organization | | | | + + + + + | [facility] | [address] | [place] [address] | [phone] | + + + + + Potassium (05/20/2019 3:58 PM PST) + + + + + + | Component | Value | Ref Range | Performed | Pathologist | | | | | At | Signature | + + + + + + | K | 4.9Comment: Testing | 3.5 - 4.9 | [facility] | | | | performed at [facility];[address] | mmol/L | LABORATORY | | | | [address];[place], [place] | | | | | | [address] | | | | + + + + + + + + | Specimen | + + | Blood | + + + + + + + | Performing | Address | City/State/Zipcode | Phone Number | | Organization | | | | + + + + + | [facility] | [address] | [place] [address] | [phone] | + + + + + POC Glucose (05/20/2019 11:37 AM PST) + + + + + + | Component | Value | Ref Range | Performed | Pathologist | | | | | At | Signature | + + + + + + | Glucose, | >400 (H)Comment: Testing | 65 - 99 mg/dL | [facility] | | | POC | performed at [facility];[address] | | LABORATORY | | | | [address];[place], [place] | | | | | | [address] | | | | + + + + + + + + | Specimen | + + | | + + + + + + + | Performing | Address | City/State/Zipcode | Phone Number | | Organization | | | | + + + + + | [facility] | [address] | [place] [address] | [phone] | + + + + + Basic [...] | | | | | performed at [facility], [address] | | | | | | [facility], | | | | | | [place] [address] | | | | + + + + + + + + | Specimen | + + | Blood | + + + + + + + | Performing | Address | City/State/Zipcode | Phone Number | | Organization | | | | + + + + + | [facility] | [address] | [place] [address] | [phone] | + + + + + ECG [...] | | | | | ECG of 17-AUG-2016 | | | | | | 06:19,Nonspecific [...] | | | POC | performed at [facility];[address] | | LABORATORY | | | | [address];[place], [place] | | | | | | [address] | | | | + + + + + + + + | Specimen | + + | | + + + + + + + | Performing | Address | City/State/Zipcode | Phone Number | | Organization | | | | + + + + + | [facility] | [address] | [place] [address] | [phone] | + + + + + POC Glucose (05/20/2019 3:23 AM PST) + + + + + + | Component | Value | Ref Range | Performed | Pathologist | | | | | At | Signature | + + + + + + | Glucose, | 232 (H)Comment: Testing | 65 - 99 mg/dL | [facility] | | | POC | performed at [facility];[address] | | LABORATORY | | | | [address];[place] | | | | | | [address] | | | | + + + + + + + + | Specimen | + + | | + + + + + + + | Performing | Address | City/State/Zipcode | Phone Number | | Organization | | | | + + + + + | [facility] | [address] | [place] [address] | [phone] | + + + + + POC [...] | | | POC | performed at [facility];[address] | | LABORATORY | | | | [address];[place], [place] | | | | | | [address] | | | | + + + + + + + + | Specimen | + + | | + + + + + + + | Performing | Address | City/State/Zipcode | Phone Number | | Organization | | | | + + + + + | [facility] | [address] | [place] [address] | [phone] | + + + + + POC Glucose (05/20/2019 1:22 AM PST) + + + + + + | Component | Value | Ref Range | Performed | Pathologist | | | | | At | Signature | + + + + + + | Glucose, | 248 (H)Comment: Testing | 65 - 99 mg/dL | [facility] | | | POC | performed at [facility];[address] | | LABORATORY | | | | [address];[place], [place] | | | | | | [address] | | | | + + + + + + + + | Specimen | + + | | + + + + + + + | Performing | Address | City/State/Zipcode | Phone Number | | Organization | | | | + + + + + | [facility] | [address] | [place] [address] | [phone] | + + + + + POC Glucose (05/20/2019 12:23 AM PST) + + + + + + | Component | Value | Ref Range | Performed | Pathologist | | | | | At | Signature | + + + + + + | Glucose, | 186 (H)Comment: Testing | 65 - 99 mg/dL | [facility] | | | POC | performed at [facility];[address] | | LABORATORY | | | | [address];[place] | | | | | | [address] | | | | + + + + + + + + | Specimen | + + | | + + + + + + + | Performing | Address | City/State/Zipcode | Phone Number | | Organization | | | | + + + + + | [facility] | [address] | [place] [address] | [phone] | + + + + + POC [...] | | | POC | performed at [facility];[address] | | LABORATORY | | | | [address];[place], [place] | | | | | | [address] | | | | + + + + + + + + | Specimen | + + | | + + + + + + + | Performing | Address | City/State/Zipcode | Phone Number | | Organization | | | | + + + + + | [facility] | [address] | [place] [address] | [phone] | + + + + + POC Glucose (05/19/2019 10:21 PM PST) + + + + + + | Component | Value | Ref Range | Performed | Pathologist | | | | | At | Signature | + + + + + + | Glucose, | 138 (H)Comment: Testing | 65 - 99 mg/dL | [facility] | | | POC | performed at [facility];[address] | | LABORATORY | | | | [address];[place] | | | | | | [address] | | | | + + + + + + + + | Specimen | + + | | + + + + + + + | Performing | Address | City/State/Zipcode | Phone Number | | Organization | | | | + + + + + | [facility] | [address] | [place] [address] | [phone] | + + + + + POC Glucose (05/19/2019 9:24 PM PST) + + + + + + | Component | Value | Ref Range | Performed | Pathologist | | | | | At | Signature | + + + + + + | Glucose, | 268 (H)Comment: Testing | 65 - 99 mg/dL | [facility] | | | POC | performed at [facility];[address] | | LABORATORY | | | | [address];[place] | | | | | | [address] | | | | + + + + + + + + | Specimen | + + | | + + + + + + + | Performing | Address | City/State/Zipcode | Phone Number | | Organization | | | | + + + + + | [facility] | [address] | [place] [address] | [phone] | + + + + + POC [...] | | | POC | performed at [facility];[address] | | LABORATORY | | | | [address];[place], [place] | | | | | | [address] | | | | + + + + + + + + | Specimen | + + | | + + + + + + + | Performing | Address | City/State/Zipcode | Phone Number | | Organization | | | | + + + + + | [facility] | [address] | [place] [address] | [phone] | + + + + + POC [...] | | | POC | performed at [facility];[address] | | LABORATORY | | | | [address];[place], [place] | | | | | | [address] | | | | + + + + + + + + | Specimen | + + | | + + + + + + + | Performing | Address | City/State/Zipcode | Phone Number | | Organization | | | | + + + + + | [facility] | [address] | [place] [address] | [phone] | + + + + + POC [...] | | | POC | performed at [facility];[address] | | LABORATORY | | | | [address];[place] | | | | | | [address] | | | | + + + + + + + + | Specimen | + + | | + + + + + + + | Performing | Address | City/State/Zipcode | Phone Number | | Organization | | | | + + + + + | [facility] | [address] | [place] [address] | [phone] | + + + + + POC [...] | | | POC | performed at [facility];[address] | | LABORATORY | | | | [address];[place] | | | | | | [address] | | | | + + + + + + + + | Specimen | + + | | + + + + + + + | Performing | Address | City/State/Zipcode | Phone Number | | Organization | | | | + + + + + | [facility] | [address] | [place] [address] | [phone] | + + + + + Glucose, Random (05/19/2019 5:51 PM PST) + + + + + + | Component | Value | Ref Range | Performed | Pathologist | | | | | At | Signature | + + + + + + | Glucose | 421 (H)Comment: Testing | 65 - 99 mg/dL | [facility] | | | | performed at [facility];[address] | | LABORATORY | | | | [address];[place] | | | | | | [address] | | | | + + + + + + + + | Specimen | + + | Blood | + + + + + + + | Performing | Address | City/State/Zipcode | Phone Number | | Organization | | | | + + + + + | [facility] | [address] | [place] [address] | [phone] | + + + + + POC [...] | | | POC | performed at [facility];[address] | | LABORATORY | | | | [address];[place], [place] | | | | | | [address] | | | | + + + + + + + + | Specimen | + + | | + + + + + + + | Performing | Address | City/State/Zipcode | Phone Number | | Organization | | | | + + + + + | [facility] | [address] | [place] [address] | [phone] | + + + + + Hemoglobin A1C (05/19/2019 3:06 PM PST) + + + + + + | Component | Value | Ref Range | Performed | Pathologist | | | | | At | Signature | + + + + + + | Hemoglobin | 10.2 (H)Comment: HbA1c | 4.0 - 6.0 % | [facility] | | | A1c | method [...] | 246 (H)Comment: | <154 mg/dL | [facility] | | | Average | Estimated Average | | LABORATORY | | | Glucose | Glucose calculated from | | | | | | hemoglobin A1c by use of | | | | | | the ADArecommended | | | | | | formula.Testing | | | | | | performed at [facility], [address] | | | | | | [facility], | | | | | | [place] [address] | | | | + + + + + + + + | Specimen | + + | Blood | + + + + + + + | Performing | Address | City/State/Zipcode | Phone Number | | Organization | | | | + + + + + | [facility] | [address] | [place] [address] | [phone] | + + + + + Glucose, Random (05/19/2019 3:06 PM PST) + + + + + + | Component | Value | Ref Range | Performed | Pathologist | | | | | At | Signature | + + + + + + | Glucose | 520 ()Comment: CALLED | 65 - 99 mg/dL | [facility] | | | | RESULTSREAD BACK RESULTS | | LABORATORY | | | | VERIFIEDACFL/CONSUELO R | | | | | | AT 1537 BY SALTesting | | | | | | performed at [facility];[address] | | | | | | [facility];[place] | | | | | | [address] | | | | + + + + + + + + | Specimen | + + | Blood | + + + + + + + | Performing | Address | City/State/Zipcode | Phone Number | | Organization | | | | + + + + + | [facility] | [address] | [place] [address] | [phone] | + + + + + POC Glucose (05/19/2019 2:42 PM PST) + + + + + + | Component | Value | Ref Range | Performed | Pathologist | | | | | At | Signature | + + + + + + | Glucose, | >400 (H)Comment: Testing | 65 - 99 mg/dL | [facility] | | | POC | performed at [facility];[address] | | LABORATORY | | | | [address];[place], [place] | | | | | | [address] | | | | + + + + + + + + | Specimen | + + | | + + + + + + + | Performing | Address | City/State/Zipcode | Phone Number | | Organization | | | | + + + + + | [facility] | [address] | [place] [address] | [phone] | + + + + + POC [...] | | | POC | performed at [facility];[address] | | LABORATORY | | | | [address];[place], [place] | | | | | | [address] | | | | + + + + + + + + | Specimen | + + | | + + + + + + + | Performing | Address | City/State/Zipcode | Phone Number | | Organization | | | | + + + + + | [facility] | [address] | [place] [address] | [phone] | + + + + + Basic [...] | | | | | performed at [facility];[address] | | | | | | [facility];[place], [place] | | | | | | [address] | | | | + + + + + + + + | Specimen | + + | Blood | + + + + + + + | Performing | Address | City/State/Zipcode | Phone Number | | Organization | | | | + + + + + | [facility] | [address] | [place] [address] | [phone] | + + + + + POC [...] | | | POC | performed at [facility];[address] | | LABORATORY | | | | [address];[place], [place] | | | | | | [address] | | | | + + + + + + + + | Specimen | + + | | + + + + + + + | Performing | Address | City/State/Zipcode | Phone Number | | Organization | | | | + + + + + | [facility] | [address] | [place] [address] | [phone] | + + + + + POC Glucose (05/19/2019 3:03 AM PST) + + + + + + | Component | Value | Ref Range | Performed | Pathologist | | | | | At | Signature | + + + + + + | Glucose, | 352 (H)Comment: Testing | 65 - 99 mg/dL | [facility] | | | POC | performed at [facility];[address] | | LABORATORY | | | | [address];[place] | | | | | | [address] | | | | + + + + + + + + | Specimen | + + | | + + + + + + + | Performing | Address | City/State/Zipcode | Phone Number | | Organization | | | | + + + + + | [facility] | [address] | [place] [address] | [phone] | + + + + + Basic [...] | | | | | performed at [facility];[address] | | | | | | [address];[place], [place] | | | | | | [address] | | | | + + + + + + + + | Specimen | + + | Blood | + + + + + + + | Performing | Address | City/State/Zipcode | Phone Number | | Organization | | | | + + + + + | [facility] | [address] | [place] [address] | [phone] | + + + + + POC Glucose (05/18/2019 9:21 PM PST) + + + + + + | Component | Value | Ref Range | Performed | Pathologist | | | | | At | Signature | + + + + + + | Glucose, | >400 (H)Comment: Testing | 65 - 99 mg/dL | [facility] | | | POC | performed at [facility];[address] | | LABORATORY | | | | [address];[place] | | | | | | [address] | | | | + + + + + + + + | Specimen | + + | | + + + + + + + | Performing | Address | City/State/Zipcode | Phone Number | | Organization | | | | + + + + + | [facility] | [address] | [place] [address] | [phone] | + + + + + POC [...] | | | POC | performed at [facility];[address] | LAB[address]AT[address] | | [address];[place], [place] | | | | | | [address] | | | | + + + + + + + + | Specimen | + + | | + + + + + + + | Performing | Address | City/State/Zipcode | Phone Number | | Organization | | | | + + + + + | [facility] | [address] | [place] [address] | [phone] | + + + + + Basic [...] | >60Comment: GFR <60: | >60 | [facility] | | | GFR | CHRONIC [...] | | | | | performed at [facility] | | | | | | [facility];[place], [place] | | | | | | [address] | | | | + + + + + + + + | Specimen | + + | Blood | + + + + + + + | Performing | Address | City/State/Zipcode | Phone Number | | Organization | | | | + + + + + | [facility] | [address] | [place] [address] | [phone] | + + + + + POC [...] | | | POC | performed at [facility];[address] | | LABORATORY | | | | [address];[place] | | | | | | [address] | | | | + + + + + + + + | Specimen | + + | | + + + + + + + | Performing | Address | City/State/Zipcode | Phone Number | | Organization | | | | + + + + + | [facility] | [address] | [place] [address] | [phone] | + + + + + POC Glucose (05/18/2019 2:20 PM PST) + + + + + + | Component | Value | Ref Range | Performed | Pathologist | | | | | At | Signature | + + + + + + | Glucose, | >400 (H)Comment: Testing | 65 - 99 mg/dL | [facility] | | | POC | performed at [facility];888 | | LABORATORY | | | | [address];[place], [place] | | | | | | [address] | | | | + + + + + + + + | Specimen | + + | | + + + + + + + | Performing | Address | City/State/Zipcode | Phone Number | | Organization | | | | + + + + + | [facility] | [address] | [place] [address] | [phone] | + + + + + POC [...] | | | POC | performed at [facility];888 | | LABORATORY | | | | [address];[place] | | | | | | [address] | | | | + + + + + + + + | Specimen | + + | | + + + + + + + | Performing | Address | City/State/Zipcode | Phone Number | | Organization | | | | + + + + + | [facility] | [address] | [place] [address] | [phone] | + + + + + POC Glucose (05/18/2019 9:28 AM PST) + + + + + + | Component | Value | Ref Range | Performed | Pathologist | | | | | At | Signature | + + + + + + | Glucose, | 111 (H)Comment: Testing | 65 - 99 mg/dL | [facility] | | | POC | performed at [facility];[address] | | LABORATORY | | | | [address];[place] | | | | | | [address] | | | | + + + + + + + + | Specimen | + + | | + + + + + + + | Performing | Address | City/State/Zipcode | Phone Number | | Organization | | | | + + + + + | [facility] | [address] | [place] [address] | [phone] | + + + + + POC [...] | | | POC | performed at [facility];[address] | | LABORATORY | | | | [address];[place], [place] | | | | | | [address] | | | | + + + + + + + + | Specimen | + + | | + + + + + + + | Performing | Address | City/State/Zipcode | Phone Number | | Organization | | | | + + + + + | [facility] | [address] | [place] [address] | [phone] | + + + + + POC [...] | | | POC | performed at [facility];[address] | | LABORATORY | | | | [address];[place], [place] | | | | | | [address] | | | | + + + + + + + + | Specimen | + + | | + + + + + + + | Performing | Address | City/State/Zipcode | Phone Number | | Organization | | | | + + + + + | [facility] | [address] | [place] [address] | [phone] | + + + + + POC [...] | | | POC | performed at [facility];[address] | | LABORATORY | | | | [address];[place] | | | | | | [address] | | | | + + + + + + + + | Specimen | + + | | + + + + + + + | Performing | Address | City/State/Zipcode | Phone Number | | Organization | | | | + + + + + | [facility] | [address] | [place] [address] | [phone] | + + + + + Blood [...] at | | | | | | [facility];[address] [facility] | | | | | | [address];[place] [address] | | | | + + + + + + + + | Specimen | + + | | + + + + + + + | Performing | Address | City/State/Zipcode | Phone Number | | Organization | | | | + + + + + | [facility] | [address] | [place] [address] | [phone] | + + + + + Drugs [...] | | | | | performed at [facility];[address] | | | | | | [facility], [place] | | | | | | [address] | | | | + + + + + + + + | Specimen | + + | Urine | + + + + + + + | Performing | Address | City/State/Zipcode | Phone Number | | Organization | | | | + + + + + | [facility] | [address] | [place] [address] | [phone] | + + + + + Ketones, Serum (05/17/2019 10:54 PM PST) + + + + + + | Component | Value | Ref Range | Performed | Pathologist | | | | | At | Signature | + + + + + + | Ketones, | NEGATIVEComment: Testing | NEG | [facility] | | | Blood | performed at [facility];[address] | | LABORATORY | | | | [address];[place], [place] | | | | | | [address] | | | | + + + + + + + + | Specimen | + + | Blood | + + + + + + + | Performing | Address | City/State/Zipcode | Phone Number | | Organization | | | | + + + + + | [facility] | [address] | [place] [address] | [phone] | + + + + + TSH (05/17/2019 10:54 PM PST) + + + + + + | Component | Value | Ref Range | Performed | Pathologist | | | | | At | Signature | + + + + + + | TSH | 1.314Comment: Testing | 0.450 - 5.100 | [facility] | | | | performed at [facility];888 | uIU/mL | LABORATORY | | | | [address];[place] | | | | | | [address] | | | | + + + + + + + + | Specimen | + + | Blood | + + + + + + + | Performing | Address | City/State/Zipcode | Phone Number | | Organization | | | | + + + + + | [facility] | [address] | [place] [address] | [phone] | + + + + + Salicylate Level (05/17/2019 10:54 PM PST) + + + + + + | Component | Value | Ref Range | Performed | Pathologist | | | | | At | Signature | + + + + + + | Salicylate, | <3.0Comment: Testing | 2.8 - 20.0 | [facility] | | | mg/dL | performed at [facility];888 | mg/dL | LABORATORY | | | | [address];[place] | | | | | | [address] | | | | + + + + + + + + | Specimen | + + | Blood | + + + + + + + | Performing | Address | City/State/Zipcode | Phone Number | | Organization | | | | + + + + + | [facility] | [address] | [place] [address] | [phone] | + + + + + Acetaminophen [...] | | en, S | performed at [facility];888 | ug/mL | LABORATORY | | | | [address];[place], [place] | | | | | | [address] | | | | + + + + + + + + | Specimen | + + | Blood | + + + + + + + | Performing | Address | City/State/Zipcode | Phone Number | | Organization | | | | + + + + + | [facility] | [address] | [place] [address] | [phone] | + + + + + Ethanol (05/17/2019 10:54 PM PST) + + + + + + | Component | Value | Ref Range | Performed | Pathologist | | | | | At | Signature | + + + + + + | ALCOHOL, | <10Comment: Testing | <10 mg/dL | [facility] | | | SERUM/PLASM | performed at [facility];[address] | | LABORATORY | | | [address];[place], [place] | | | | | | [address] | | | | + + + + + + + + | Specimen | + + | Blood | + + + + + + + | Performing | Address | City/State/Zipcode | Phone Number | | Organization | | | | + + + + + | [facility] | [address] | [place] [address] | [phone] | + + + + + Comprehensive [...] 19 | 10 - 65 U/L | KR [...] | | | | | performed at [facility] | | | | | | [facility];[place], [place] | | | | | | [address] | | | | + + + + + + + + | Specimen | + + | Blood | + + + + + + + | Performing | Address | City/State/Zipcode | Phone Number | | Organization | | | | + + + + + | [facility] | [address] | [place] [address] | [phone] | + + + + + CBC [...] | | | Absolute | performed at [facility];888 | K/uL | LABORATORY | | | | [facility];[place], [place] | | | | | | [address] | | | | + + + + + + + + | Specimen | + + | Blood | + + + + + + + | Performing | Address | City/State/Zipcode | Phone Number | | Organization | | | | + + + + + | [facility] | [address] | [place] [address] | [phone] | + + + + + POC [...] | | | POC | performed at [facility];[address] | | LABORATORY | | | | [address];[place] | | | | | | [address] | | | | + + + + + + + + | Specimen | + + | | + + + + + + + | Performing | Address | City/State/Zipcode | Phone Number | | Organization | | | | + + + + + | [facility] | [address] | [place] [address] | [phone] | + + + + + documented [...] 650 mg, Oral, EVERY 4 | | 12:10 | | | | | HOURS [...] | Arm-Left | | SOLOSTAR) injection (pen) | | 19 8:39 | | | [...] | | | | | | | 2725-5929 Use NIGHT DOSE for | | | | | | | doses scheduled: HS, 3AM, | | | | | | | Nighttime 0464-2221 If the BG is | | | [...] | | | | | | | 6846-5288 Use NIGHT DOSE for | | | | | | | doses scheduled: HS, 3AM, | | | | | | | Nighttime 9703-3775 If the BG is | | | [...] | | | | | | | 9356-2734 Use NIGHT DOSE for | | | | | | | doses scheduled: HS, 3AM, | | | | | | | Nighttime 3888-3909 If the BG is | | | [...] | | | BREAKFAST, First dose on Fri | | | 05/20/19 at 1030, Give [...]
--- OUTSIDE RECORDS SUMMARY | ~2019-07-04 | XMS | Encounter Summary ---
Demographics + + + | Address | [address] | | | [place] [address] | + + + | Home Phone | | + + + | Preferred Language | Unknown | + + + | Marital Status | Single | + + + | Yazdanism Affiliation | 1001 | + + + | Race | Unknown | + + + | Ethnic Group | Unknown | + + + Author + + + | Author | [facility] | | | and Ryana | + + + | Organization | [facility] | | [...] Team Providers + +------+ + | Care Mascara Molder Name | Role | Phone | + +------+ + PCP | Unavailable | + +------+ + Encounter Details +--------+ + + + + | Date | Type | Department | Care Team | Description | +--------+ + + + + | 05/01/ | [facility] | [place] | Abhi Berger | | | 2003 | Encounter | FAMILY MEDICINE 120 | MD [address] | | | | | [address] | [place], [place] | | | | | [place] [address] | [address] | | | | | [phone] | | | +--------+ + + + [...]
--- OUTSIDE RECORDS SUMMARY | ~2019-07-04 | XMS | Encounter Summary ---
Demographics + + + | Address | [address] | | | [place] [address] | + + + | Home Phone [...] Team Providers + +------+ + | Care Supervisor In Circuit Testing Name | Role | Phone | + [...] + + | 05/01/ | Hospital | [facility] | Venkatesh Gomez, | Diabetic | | 2017 - | Encounter | [facility] | [address] | ketoacidosis without | | | | [address] [place] | [facility] [place] | coma associated | | 05/03/ | | [place] [address] | [place] [address] | with type 1 diabetes | | 2016 | | [phone] | [phone] | mellitus (HCC) | | | | | | (Primary Dx) | | | | | Juanjose Ross MD | | | | | | [address] | | | | | | [place], [place] | | | | | | [address] | | | | | | | | | | | | Kevin Gifford MD | | | | | | [address] | | | | | | [place], [place] | | | | | | [address] | | | | | | | [...] might be different fro m the original. [place] HOSPITALIST DISCHARGE SUMMARY Pt. Name/Age/: Joni [...] [facility] has haydee garcia living at [facility] past month and not have [...] (at least 50 needles) [facility] Most recent weight: Input and [...] by: Kevin Gifford MD, 05/03/2017 11:48 [facility] Reference. This is NOT part of [...] this chart may have been created with [employer] voice recognition software. Occasi onal wrong-word or [...] cannot be sent through Care Everywhere.Diabetes, Diet ([place]osta [place]ican)Diabetes, General Information ([place]ican)Diabetes, Healthy Meals for ([place])Diabete s, Meal Planning ([place])Diabetes: Shopping for and Preparing Meals ([place]ican)documented in this encounter Medications at Time of [...] might be different fro m the original. [facility] [place] HOSPITALIST PROGRESS NOTE Patient: Joni Kwon : 1980: Age: 36 y.o. MedRec: [id number] PCP: DENIS Paul Admission date: 05/01/2017 Hospital [...] for input(s): IRON, TIBC, PCTSAT, FERRITIN, TSH, [id number], FOLATE in the last 168 hours. Inflammatory [...] 57.1* HCO3 21.8 TCO2 22.9 BEART -3.0* [id number] 89* Drug of overdose and abuse Recent [...] Procedure Component Value Units Date/Time Culture, MRSA [[id number]] Collected: 05/02/17 0202 Order Status: Completed Lab [...] [facility] has haydee garcia living at [facility] past month and not have [...] (at least 50 needles) [facility] at [facility] (dot meyaddendum tdnorefesh nownorefresh) (timothy meytime meycritical meysign) Kevin Gifford MD 05/03/2017 11:[address] [facility] Reference. This is NOT part [...] this chart may have been created with [employer] voice recognition software. Occasi onal wrong-word or sound-alike substitutions may have occurred due to the inherent renee itations of voice recognition software. 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 MedRec: [id number] PCP: DENIS Paul Admission date: 05/01/2017 Hospital [...] for input(s): IRON, TIBC, PCTSAT, FERRITIN, TSH, [id number], FOLATE in the last 168 hours. Inflammatory [...] 57.1* HCO3 21.8 TCO2 22.9 BEART -3.0* FOYR0VNM 89* Drug of overdose and abuse Recent [...] Procedure Component Value Units Date/Time Culture, MRSA [[id number]] Collected: 05/02/17 020 Order Status: Sent Lab [...] [facility] has b eetyler living at [facility] past month and not have [...] pens uses [facility] at [facility] (dot meyaddendum tdnorefesh nownorefresh) (dot meytime meycritical meysign) Kevin Gifford MD 05/02/2017 6:[address] [facility] Reference. This is NOT part [...] this chart may have been created with [employer] recognition software. Occasi onal wrong-word or sound-alike [...] J?MRN: | | | | | | [id number] | | | [id number] | | | his | | | [...] | | | St. | | | [place] | | | y | | | [...] | | | St. | | | [place] | | | y | | | [...] | | | St. | | | [place] | | | y H. | | [...] | | | St. | | | [place] | | | y H. | | [...] | | | St. | | | [place] | | | y H. | | [...] | | | St. | | | [place] | | | y H. | | [...] | | | St. | | | [place] | | | y H. | | [...] | | | St. | | | [place] | | | y | | | [...] | | | ext. | | | [address] | | | or go | | [...] + | [facility] | [address] | [place] | [phone] | | [facility] | | [address] | | | - LABORATORY | | [...] ST. | [address] | [place] | [phone] | | [facility] | | [address] | | | - LABORATORY | | [...] | | | | | | [facility] | | | | | | MEDICAL [...] 8 | 7 - 18 mg/dL | [place] | | | | | | [facility] | | | | | | MEDICAL | | | | | | CENTER - | | | | | | LABORATORY | | + + + + + + | Creatinine | 0.71 | 0.60 - 1.30 | [place] | | | | | mg/dL | [facility] | | | | | | MEDICAL | | | | | | CENTER - | | | | | | LABORATORY | | + + + + + + | eGFR if not | >60Comment: GLOMERULAR | >=60 | [place] | | | | FILTRATION | mL/min/1.73m2 | [facility] | | | [place] | RATE,ESTIMATED | | MEDICAL | | | | mL/min/1.35n8Awdk than | | CENTER - | | [...] + | [facility] | [address] | [place] | [phone] | | [facility] | | [address] | | | - LABORATORY | | [...] + | [facility] | [address] | [place] | [phone] | | [facility] | | [address] | | | - LABORATORY | | [...] [address] | [place] | [phone] | | [facility] | | [address] | | | - LABORATORY | | [...] + | [facility] | [address] | [place] | [phone] | | [facility] | | [address] | | | - LABORATORY | | [...] [address] | [place] | [phone] | | [facility] | | [address] | | | - LABORATORY | | [address] | [place] | [phone] | | [facility] | | [address] | | | - LABORATORY | | [...] + | [facility] | [address] | [place] | [phone] | | [facility] | | [address] | | | - LABORATORY | | [...] [address] | [place] | [phone] | | [facility] | | [address] | | | - LABORATORY | | [...] | | | FILTRATION | mL/min/1.73m2 | [facility] | | | [place] | RATE,ESTIMATED | | MEDICAL | | | | mL/min/1.41s9Dzag than | | CENTER - | | [...] [address] | [place] | [phone] | | [facility] | | [address] | | | - LABORATORY | | [address] | [place] | [phone] | | [facility] | | [address] | | | - LABORATORY | | [...] [address] | [place] | [phone] | | [facility] | | [address] | | | - LABORATORY | | [...] + | [facility] | [address] | [place] | [phone] | | [facility] | | [address] | | | - LABORATORY | | [...] + | [facility] | [address] | [place] | [phone] | | [facility] | | [address] | | | - LABORATORY | | [...] mL/min/1.73m2 | [facility] | | | [place] | RATE,ESTIMATED | | MEDICAL | | | | mL/min/1.24c4Efrq than | | CENTER - | | [...] ST. | [address] | [place], [place] | [phone] | | [facility] | | [address] | | | - LABORATORY | | [...] [address] | [place] | [phone] | | [facility] | | [address] | | | - LABORATORY | | [...] + | [facility] | [address] | [place] | [phone] | | [facility] | | [address] | | | - LABORATORY | | [address] | [place] | [phone] | | [facility] | | [address] | | | - LABORATORY | | [...] - 1.030 | [facility] | | | [address] | | | [facility] | | [...] | [address] | [place] | [phone] | | [facility] | | [address] | | | - LABORATORY | | [...] [address] | [place] | [phone] | | [facility] | | [address] | | | - LABORATORY | | [...] + | [facility] | [address] | [place] | [phone] | | [facility] | | [address] | | | - LABORATORY | | [...] + + | Performing | Address | City/State[facility] | Phone Number | | Organization | | | | + + + + + | [facility] | [address] | [place] | [phone] | | [facility] | | [address] | | | - LABORATORY | | [...] + | [facility] | [address] | [place] | [phone] | | [facility] | | [address] | | | - LABORATORY | | [...] mL/min/1.73m2 | [facility] | | | [place] | RATE,ESTIMATED | | MEDICAL | | | | mL/min/1.77o3Lizj than | | CENTER - | | [address] | [place] | [phone] | | [facility] | | [address] | | | - LABORATORY | | [...] [address] | [place] | [phone] | | [facility] | | [address] | | | - LABORATORY | | [...] [address] | [place] | [phone] | | [facility] | | [address] | | | - LABORATORY | | [...] | | | | | | | 0599-7882 Use NIGHT DOSE for | | | | | | | doses scheduled: HS, 3AM, | | | | | | | Nighttime 5987-8469, | | | | | | + [...] | | | | | | | 9282-6459 Use NIGHT DOSE for | | | | | | | doses scheduled: HS, 3AM, | | | | | | | Nighttime 3080-5871, | | | | | | + [...] | | | | | NPO, Daytime 2722-0643 Use NIGHT | | | | | | | DOSE for doses scheduled: | | | | | | | HS, 3AM, Nighttime 9714-5802, | | | | | | + [...] PST | | | | | Starting [facility] 05/01/17 at 2254, For | | [...] PM PST | | | | | [facility] 05/01/17 at 2300, For 1 dose [...]
--- OUTSIDE RECORDS SUMMARY | ~2019-07-04 | XMS | Encounter Summary ---
Demographics + + + | Address | [address] | | | [place] [address] | + + + | Home Phone [...] Providers + +------+ + | Care Rn School Name | Role | Phone | + +------+ + PCP | Unavailable | + +------+ + Encounter Details +--------+ + + + + | Date | Type | Department | Care Team | Description | +--------+ + + + + | 05/01/ | [facility] | [place] | Abhi Berger | | | 2003 | Encounter | FAMILY MEDICINE 120 | MD [address] | | | | | [place] | [place], [place] | | | | | [place] [address] | [address] | | | | | [phone] | | | +--------+ + + + [...]
--- OUTSIDE RECORDS SUMMARY | ~2019-07-04 | XMS | Encounter Summary ---
Demographics + + + | Address | [address] | | | [place] [address] | + + + | Home Phone | | + + + | Preferred Language | Unknown | + + + | Marital Status | Single | + + + | Anabaptism Affiliation | 1001 | + + + [...] Team Providers + +------+ + | Care Delivery Route Driver Name | Role | Phone | [...] | | [facility] [place] [address] [place] | diabetes mellitus | | | | CENTER [address] | [place] | with hyperglycemia | | | | [place] | [address] | ([facility]) (Primary Dx); | | | | [address] | | Type 2 diabetes | | | | [phone] | | mellitus without | | | | | | complication, with | | | | | | long-term current | | | | | | use of insulin | | | | | | ([facility]); Chest pain in | | [...] J?MRN: | | | | | | [id number] | | | [id number] | | | his | | | [...] | | | St. | | | [place] | | | y | | | [...] | | | St. | | | [place] | | | y H. | | [...] | | | St. | | | [place] | | | y H. | | [...] | | | St. | | | [place] | | | y H. | | [...] | | | St. | | | [place] | | | y H. | | [...] | | | St. | | | [place] | | | y H. | | [...] | | | St. | | | [place] | | | y | | | [...] | | | ext. | | | [address] | | | or go | | [...] [address] | [place] | [phone] | | [facility] | | [address] | | | - LABORATORY | | [...] 0.84 | 0.60 - 1.30 | [facility] [...] mL/min/1.73m2 | [facility] | | | [place] | RATE,ESTIMATED | | MEDICAL | | | | mL/min/1.68q0Bool than | | CENTER - | | [...] ST. | [address] | [place], [place] | [phone] | | [facility] | | [address] | | | - LABORATORY | | [...] | | | | | [place] ([address]) on | | | | | | [...] | [address] | [place] | [phone] | | [facility] | | [address] | | | - LABORATORY | | [...] | [employer] | | | [facility]ula LYNN | | [...] + | [facility] | [address] | [place] | [phone] | | [facility] | | [id number] | | | [...] + | [facility] | [address] | [place] | [phone] | | [facility] | | [address] | | | - LABORATORY | | [...] ST. | [address] | [place], [place] | [phone] | | [facility] | | [address] | | | - LABORATORY | | [...] | | | | | mg/dL | [facility] | | | | | | MEDICAL | | | | | | CENTER - | | | | | | LABORATORY | | + + + + + + | eGFR if not | >60Comment: GLOMERULAR | >=60 | [facility] | | | | FILTRATION | mL/min/1.73m2 | [facility] | | | [place] | RATE,ESTIMATED | | MEDICAL | | | | mL/min/1.91f0Vjww than | | CENTER - | | [address] | [place] | [phone] | | [facility] | | [address] | | | - LABORATORY | | [...] [address] | [place] | [phone] | | [facility] | | [address] | | | - LABORATORY | | [...] [address] | [place] | [phone] | | [facility] | | [address] | | | - LABORATORY | | [...] | | novoLIN R) injection 10 Units | | 17 10:18 | | | [...]
--- OUTSIDE RECORDS SUMMARY | ~2019-07-04 | XMS | Encounter Summary ---
Demographics + + + | Address | [address] | | | [place] [address] | + + + | Home Phone | | + + + | Preferred Language | Unknown | + + + | Marital Status | Single | + + + | Spiritism Affiliation | 1001 | + + + | Race | Unknown | + + + | Ethnic Group | Unknown | + + + Author + + + | Author | [facility] | | | and Ryana | + + + | Organization | [facility] | | | [...] Providers + +------+ + | Care Heel Scourer Name | Role | Phone | + [...] + + | 05/17/ | Hospital | [facility] | Alexis, | Schizophrenia, | | 2019 - | Encounter | [facility] | DO Benjamin [address] | unspecified type | | | | CARE [address]LO[address] | [address] | ([facility]) (Primary Dx); | | 05/21/ | | [address] | [place] [address] | Acute psychosis | | 2019 | | [place], [place] | [phone] | (HCC); Marijuana | | | | [address] | | use; Nausea and | | | | [phone] | Tacos Brian MD | vomiting in adult; | | | | | [address] | Noncompliance with | | | | | [place], [place] | medication regimen; | | | | | [address] | Tobacco smoker | | | | | [phone] | within last 12 | | | | | | months; Type 1 | | | | | Tacos Paredes PA | diabetes mellitus | | | | | [address] | without complication | | | | | [place] [address] | (HCC); | | | | | [phone] | Schizoaffective | | | | | | disorder, bipolar | | | | | Hosea Watson, | type ([facility]); Acute | | | | | [address] [facility] | hyperkalemia | | | | | [place] [address] | | | | | | [phone] | | | | | | | | | | | | Cony Castillo, | | | | | | [address] [facility] | | | | | | [place] [address] | | | | | | [phone] | | | | | | | [...] might be different f rom the original. [facility] Service: Hospitalist Discharge Summary Date of [...] s morning. The patient was accepted to [facility] for further treatment. 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 Chew and tuck 1 piece every [...] to patient adilene stoner. Report given to [facility]. Security came and gave patient back his belongings. Patient sent ian john home with his mother. No other concerns noted. [facility] here to take patient to [facility]. Elisa Mendez RN 5:41 PM Elisa Marquez RN - 1 07/21/2018 5:15 PM PSTPatient's blood sugar 66. Waiting on food to arrive. [place] juice and vu crackers given. Patient's dinner arrived. [facility] here but needing to get blood sugar sta bilized before transport. Elisa Mendez RN 5:16 PM Elisa Marquez RN - 1 07/21/2018 2:20 PM PSTNurse from [facility] [place] called to get update on patient. Nurse [...] this note might be different from the [facility] Service: Hospitalist Progress Note Hospital [...] Kirkland MD - 05/20/2019 12:18 PM PST [facility] Service: Hospitalist Progress Note Hospital Day: [...] Kirkland MD - 05/19/2019 2:57 PM PST [facility] Service: Hospitalist Progress Note Hospital Day: [...] J?MRN: | | | | | | [id number] | | | [id number] | | | riteri | | | [...] | | | St. | | | [place] | | | y | | | [...] | | | St. | | | [place] | | | y | | | [...] | | | St. | | | [place] | | | y | | | Hospit | | | al | | | Patien | | | t is | | | curren | | | tly | | | establ | | | ished | | | with | | | St | | | [place] | | | y | | | [...] St | | | | | | [place] | | | y | | | [...] | | | St. | | | [place] | | | y | | | [...] | | | St. | | | [place] | | | y H. | | [...] | | | St. | | | [place] | | | y H. | | [...] | | | St. | | | [place] | | | y H. | | [...] | | | St. | | | [place] | | | y H. | | [...] | | | St. | | | [place] | | | y H. | | [...] | | | St. | | | [place] | | | y H. | | [...] | | | MD | | | [employer] Lieutenant | | | al | | | [...] | | | [phone] | | | [id number] | | | 95 | | | [...] Testing | 65 - 99 mg/dL | [facility] | | | POC | performed at [facility];888 | | LABORATORY | | | | [address];[place] | | | | | | [address] | | | | + + + + + + + + | Specimen | + + | | + + + + + + + | Performing | Address | City/State/Zipcode | Phone Number | | Organization | | | | + + + + + | [facility] | [address] | [place] [address] | [phone] | + + + + + POC [...] | POC | performed at [facility];888 | | LABORATORY | | | | [address];[place], [place] | | | | | | [address] | | | | + + + + + + + + | Specimen | + + | | + + + + + + + | Performing | Address | City/State/Zipcode | Phone Number | | Organization | | | | + + + + + | [facility] | [address] | [place] [address] | [phone] | + + + + + POC [...] | POC | performed at [facility];[address] | | LABORATORY | | | | [address];[place] | | | | | | [address] | | | | + + + + + + + + | Specimen | + + | | + + + + + + + | Performing | Address | City/State/Zipcode | Phone Number | | Organization | | | | + + + + + | [facility] | [address] | [place] [address] | [phone] | + + + + + POC [...] | POC | performed at [facility];888 | | LABORATORY | | | | [address];[place] | | | | | | [address] | | | | + + + + + + + + | Specimen | + + | | + + + + + + + | Performing | Address | City/State/Zipcode | Phone Number | | Organization | | | | + + + + + | [facility] | [address] | [place] [address] | [phone] | + + + + + POC [...] | POC | performed at [facility];888 | | LABORATORY | | | | [address];[place], [place] | | | | | | [address] | | | | + + + + + + + + | Specimen | + + | | + + + + + + + | Performing | Address | City/State/Zipcode | Phone Number | | Organization | | | | + + + + + | [facility] | [address] | [place] [address] | [phone] | + + + + + POC [...] | POC | performed at [facility];[address] | | LABORATORY | | | | [address];[place], [place] | | | | | | [address] | | | | + + + + + + + + | Specimen | + + | | + + + + + + + | Performing | Address | City/State/Zipcode | Phone Number | | Organization | | | | + + + + + | [facility] | [address] | [place] [address] | [phone] | + + + + + Basic [...] W | | | | | | [facility] | | | | | | [place] [address] | | | | + + + + + + + + | Specimen | + + | Blood | + + + + + + + | Performing | Address | City/State/Zipcode | Phone Number | | Organization | | | | + + + + + | [facility] | [address] | [place] [address] | [phone] | + + + + + POC Glucose (05/21/2019 8:28 AM PST) + + + + + + | Component | Value | Ref Range | Performed | Pathologist | | | | | At | Signature | + + + + + + | Glucose, | 250 (H)Comment: Testing | 65 - 99 mg/dL | [facility] | | | POC | performed at [facility];888 | | LABORATORY | | | | [address];[place] | | | | | | [address] | | | | + + + + + + + + | Specimen | + + | | + + + + + + + | Performing | Address | City/State/Zipcode | Phone Number | | Organization | | | | + + + + + | [facility] | [address] | [place] [address] | [phone] | + + + + + POC [...] | POC | performed at [facility];888 | | LABORATORY | | | | [address];[place] | | | | | | [address] | | | | + + + + + + + + | Specimen | + + | | + + + + + + + | Performing | Address | City/State/Zipcode | Phone Number | | Organization | | | | + + + + + | [facility] | [address] | [place] [address] | [phone] | + + + + + POC Glucose (05/20/2019 6:06 PM PST) + + + + + + | Component | Value | Ref Range | Performed | Pathologist | | | | | At | Signature | + + + + + + | Glucose, | 338 (H)Comment: Testing | 65 - 99 mg/dL | [facility] | | | POC | performed at [facility];[address] | | LABORATORY | | | | [address];[place] | | | | | | [address] | | | | + + + + + + + + | Specimen | + + | | + + + + + + + | Performing | Address | City/State/Zipcode | Phone Number | | Organization | | | | + + + + + | [facility] | [address] | [place] [address] | [phone] | + + + + + POC Glucose (05/20/2019 4:35 PM PST) + + + + + + | Component | Value | Ref Range | Performed | Pathologist | | | | | At | Signature | + + + + + + | Glucose, | >400 (H)Comment: Testing | 65 - 99 mg/dL | [facility] | | | POC | performed at [facility];[address] | | LABORATORY | | | | [address];[place], [place] | | | | | | [address] | | | | + + + + + + + + | Specimen | + + | | + + + + + + + | Performing | Address | City/State/Zipcode | Phone Number | | Organization | | | | + + + + + | [facility] | [address] | [place] [address] | [phone] | + + + + + Potassium (05/20/2019 3:58 PM PST) + + + + + + | Component | Value | Ref Range | Performed | Pathologist | | | | | At | Signature | + + + + + + | K | 4.9Comment: Testing | 3.5 - 4.9 | [facility] | | | | performed at [facility];888 | mmol/L | LABORATORY | | | | [address];[place], [place] | | | | | | [address] | | | | + + + + + + + + | Specimen | + + | Blood | + + + + + + + | Performing | Address | City/State/Zipcode | Phone Number | | Organization | | | | + + + + + | [facility] | [address] | [place] [address] | [phone] | + + + + + POC Glucose (05/20/2019 11:37 AM PST) + + + + + + | Component | Value | Ref Range | Performed | Pathologist | | | | | At | Signature | + + + + + + | Glucose, | >400 (H)Comment: Testing | 65 - 99 mg/dL | [facility] | | | POC | performed at [facility];[address] | | LABORATORY | | | | [address];[place], [place] | | | | | | [address] | | | | + + + + + + + + | Specimen | + + | | + + + + + + + | Performing | Address | City/State/Zipcode | Phone Number | | Organization | | | | + + + + + | [facility] | [address] | [place] [address] | [phone] | + + + + + Basic [...] W | | | | | | [facility], | | | | | | [place] [address] | | | | + + + + + + + + | Specimen | + + | Blood | + + + + + + + | Performing | Address | City/State/Zipcode | Phone Number | | Organization | | | | + + + + + | [facility] | [address] | [place] [address] | [phone] | + + + + + ECG [...] | POC | performed at [facility];888 | | LABORATORY | | | | [address];[place], [place] | | | | | | [address] | | | | + + + + + + + + | Specimen | + + | | + + + + + + + | Performing | Address | City/State/Zipcode | Phone Number | | Organization | | | | + + + + + | [facility] | [address] | [place] [address] | [phone] | + + + + + POC Glucose (05/20/2019 3:23 AM PST) + + + + + + | Component | Value | Ref Range | Performed | Pathologist | | | | | At | Signature | + + + + + + | Glucose, | 232 (H)Comment: Testing | 65 - 99 mg/dL | [facility] | | | POC | performed at [facility];888 | | LABORATORY | | | | [address];[place] | | | | | | [address] | | | | + + + + + + + + | Specimen | + + | | + + + + + + + | Performing | Address | City/State/Zipcode | Phone Number | | Organization | | | | + + + + + | [facility] | [address] | [place] [address] | [phone] | + + + + + POC [...] | POC | performed at [facility];888 | | LABORATORY | | | | [address];[place], [place] | | | | | | [address] | | | | + + + + + + + + | Specimen | + + | | + + + + + + + | Performing | Address | City/State/Zipcode | Phone Number | | Organization | | | | + + + + + | [facility] | [address] | [place] [address] | [phone] | + + + + + POC Glucose (05/20/2019 1:22 AM PST) + + + + + + | Component | Value | Ref Range | Performed | Pathologist | | | | | At | Signature | + + + + + + | Glucose, | 248 (H)Comment: Testing | 65 - 99 mg/dL | [facility] | | | POC | performed at [facility];[address] | | LABORATORY | | | | [address];[place], [place] | | | | | | [address] | | | | + + + + + + + + | Specimen | + + | | + + + + + + + | Performing | Address | City/State/Zipcode | Phone Number | | Organization | | | | + + + + + | [facility] | [address] | [place] [address] | [phone] | + + + + + POC Glucose (05/20/2019 12:23 AM PST) + + + + + + | Component | Value | Ref Range | Performed | Pathologist | | | | | At | Signature | + + + + + + | Glucose, | 186 (H)Comment: Testing | 65 - 99 mg/dL | [facility] | | | POC | performed at [facility];[address] | | LABORATORY | | | | [address];[place] | | | | | | [address] | | | | + + + + + + + + | Specimen | + + | | + + + + + + + | Performing | Address | City/State/Zipcode | Phone Number | | Organization | | | | + + + + + | [facility] | [address] | [place] [address] | [phone] | + + + + + POC [...] | POC | performed at [facility];[address] | | LABORATORY | | | | [address];[place], [place] | | | | | | [address] | | | | + + + + + + + + | Specimen | + + | | + + + + + + + | Performing | Address | City/State/Zipcode | Phone Number | | Organization | | | | + + + + + | [facility] | [address] | [place] [address] | [phone] | + + + + + POC Glucose (05/19/2019 10:21 PM PST) + + + + + + | Component | Value | Ref Range | Performed | Pathologist | | | | | At | Signature | + + + + + + | Glucose, | 138 (H)Comment: Testing | 65 - 99 mg/dL | [facility] | | | POC | performed at [facility];[address] | | LABORATORY | | | | [address];[place] | | | | | | [address] | | | | + + + + + + + + | Specimen | + + | | + + + + + + + | Performing | Address | City/State/Zipcode | Phone Number | | Organization | | | | + + + + + | [facility] | [address] | [place] [address] | [phone] | + + + + + POC Glucose (05/19/2019 9:24 PM PST) + + + + + + | Component | Value | Ref Range | Performed | Pathologist | | | | | At | Signature | + + + + + + | Glucose, | 268 (H)Comment: Testing | 65 - 99 mg/dL | [facility] | | | POC | performed at [facility];[address] | | LABORATORY | | | | [address];[place] | | | | | | [address] | | | | + + + + + + + + | Specimen | + + | | + + + + + + + | Performing | Address | City/State/Zipcode | Phone Number | | Organization | | | | + + + + + | [facility] | [address] | [place] [address] | [phone] | + + + + + POC [...] | POC | performed at [facility];[address] | | LABORATORY | | | | [address];[place], [place] | | | | | | [address] | | | | + + + + + + + + | Specimen | + + | | + + + + + + + | Performing | Address | City/State/Zipcode | Phone Number | | Organization | | | | + + + + + | [facility] | [address] | [place] [address] | [phone] | + + + + + POC [...] | POC | performed at [facility];[address] | | LABORATORY | | | | [address];[place], [place] | | | | | | [address] | | | | + + + + + + + + | Specimen | + + | | + + + + + + + | Performing | Address | City/State/Zipcode | Phone Number | | Organization | | | | + + + + + | [facility] | [address] | [place] [address] | [phone] | + + + + + POC [...] | POC | performed at [facility];888 | | LABORATORY | | | | [address];[place] | | | | | | [address] | | | | + + + + + + + + | Specimen | + + | | + + + + + + + | Performing | Address | City/State/Zipcode | Phone Number | | Organization | | | | + + + + + | [facility] | [address] | [place] [address] | [phone] | + + + + + POC [...] | POC | performed at [facility];[address] | | LABORATORY | | | | [address];[place] | | | | | | [address] | | | | + + + + + + + + | Specimen | + + | | + + + + + + + | Performing | Address | City/State/Zipcode | Phone Number | | Organization | | | | + + + + + | [facility] | [address] | [place] [address] | [phone] | + + + + + Glucose, Random (05/19/2019 5:51 PM PST) + + + + + + | Component | Value | Ref Range | Performed | Pathologist | | | | | At | Signature | + + + + + + | Glucose | 421 (H)Comment: Testing | 65 - 99 mg/dL | [facility] | | | | performed at [facility];[address] | | LABORATORY | | | | [address];[place] | | | | | | [address] | | | | + + + + + + + + | Specimen | + + | Blood | + + + + + + + | Performing | Address | City/State/Zipcode | Phone Number | | Organization | | | | + + + + + | [facility] | [address] [facility] | [place] [address] | [phone] | + + + + + POC [...] | POC | performed at [facility];[address] | | LABORATORY | | | | [address];[place], [place] | | | | | | [address] | | | | + + + + + + + + | Specimen | + + | | + + + + + + + | Performing | Address | City/State/Zipcode | Phone Number | | Organization | | | | + + + + + | [facility] | [address] | [place] [address] | [phone] | + + + + + Hemoglobin A1C (05/19/2019 3:06 PM PST) + + + + + + | Component | Value | Ref Range | Performed | Pathologist | | | | | At | Signature | + + + + + + | Hemoglobin | 10.2 (H)Comment: HbA1c | 4.0 - 6.0 % | [facility] | | | A1c | method [...] | 246 (H)Comment: | <154 mg/dL | [facility] | | | Average | Estimated [...] | | | | | | [facility], | | | | | | [place] [address] | | | | + + + + + + + + | Specimen | + + | Blood | + + + + + + + | Performing | Address | City/State/Zipcode | Phone Number | | Organization | | | | + + + + + | [facility] | [address] | [place] [address] | [phone] | + + + + + Glucose, [...] | | | performed at [facility];[address] | | | | | | [facility];[place] | | | | | | [address] | | | | + + + + + + + + | Specimen | + + | Blood | + + + + + + + | Performing | Address | City/State/Zipcode | Phone Number | | Organization | | | | + + + + + | [facility] | [address] | [place] [address] | [phone] | + + + + + POC Glucose (05/19/2019 2:42 PM PST) + + + + + + | Component | Value | Ref Range | Performed | Pathologist | | | | | At | Signature | + + + + + + | Glucose, | >400 (H)Comment: Testing | 65 - 99 mg/dL | [facility] | | | POC | performed at [facility];[address] | | LABORATORY | | | | [address];[place], [place] | | | | | | [address] | | | | + + + + + + + + | Specimen | + + | | + + + + + + + | Performing | Address | City/State/Zipcode | Phone Number | | Organization | | | | + + + + + | [facility] | [address] | [place] [address] | [phone] | + + + + + POC [...] | POC | performed at [facility];888 | | LABORATORY | | | | [address];[place], [place] | | | | | | [address] | | | | + + + + + + + + | Specimen | + + | | + + + + + + + | Performing | Address | City/State/Zipcode | Phone Number | | Organization | | | | + + + + + | [facility] | [address] | [place] [address] | [phone] | + + + + + Basic [...] | | | performed at [facility];[address] | | | | | | [facility];[place], [place] | | | | | | [address] | | | | + + + + + + + + | Specimen | + + | Blood | + + + + + + + | Performing | Address | City/State/Zipcode | Phone Number | | Organization | | | | + + + + + | [facility] | [address] | [place] [address] | [phone] | + + + + + POC [...] | POC | performed at [facility];[address] | | LABORATORY | | | | [address];[place], [place] | | | | | | [address] | | | | + + + + + + + + | Specimen | + + | | + + + + + + + | Performing | Address | City/State/Zipcode | Phone Number | | Organization | | | | + + + + + | [facility] | [address] | [place] [address] | [phone] | + + + + + POC Glucose (05/19/2019 3:03 AM PST) + + + + + + | Component | Value | Ref Range | Performed | Pathologist | | | | | At | Signature | + + + + + + | Glucose, | 352 (H)Comment: Testing | 65 - 99 mg/dL | [facility] | | | POC | performed at [facility];[address] | | LABORATORY | | | | [address];[place] | | | | | | [address] | | | | + + + + + + + + | Specimen | + + | | + + + + + + + | Performing | Address | City/State/Zipcode | Phone Number | | Organization | | | | + + + + + | [facility] | [address] | [place] [address] | [phone] | + + + + + Basic [...] | | | performed at [facility];[address] | | | | | | [address];[place], [place] | | | | | | [address] | | | | + + + + + + + + | Specimen | + + | Blood | + + + + + + + | Performing | Address | City/State/Zipcode | Phone Number | | Organization | | | | + + + + + | [facility] | [address] | [place] [address] | [phone] | + + + + + POC Glucose (05/18/2019 9:21 PM PST) + + + + + + | Component | Value | Ref Range | Performed | Pathologist | | | | | At | Signature | + + + + + + | Glucose, | >400 (H)Comment: Testing | 65 - 99 mg/dL | [facility] | | | POC | performed at [facility];[address] | | LABORATORY | | | | [address];[place] | | | | | | [address] | | | | + + + + + + + + | Specimen | + + | | + + + + + + + | Performing | Address | City/State/Zipcode | Phone Number | | Organization | | | | + + + + + | [facility] | [address] | [place] [address] | [phone] | + + + + + POC [...] | POC | performed at [facility];[address] | | LABORATORY | | | | [address];[place], [place] | | | | | | [address] | | | | + + + + + + + + | Specimen | + + | | + + + + + + + | Performing | Address | City/State/Zipcode | Phone Number | | Organization | | | | + + + + + | [facility] | [address] | [place] [address] | [phone] | + + + + + Basic [...] | >60Comment: GFR <60: | >60 | [facility] | | | GFR | CHRONIC [...] | | | | | | MDRD IDTN traceable | | | | | | equation.Testing | | | | | | performed at [facility] | | | | | | [facility];[place], [place] | | | | | | [address] | | | | + + + + + + + + | Specimen | + + | Blood | + + + + + + + | Performing | Address | City/State/Zipcode | Phone Number | | Organization | | | | + + + + + | [facility] | [address] | [place] [address] | [phone] | + + + + + POC [...] | POC | performed at [facility];[address] | LABORATORY | | | | [address];[place] | | | | | | [address] | | | | + + + + + + + + | Specimen | + + | | + + + + + + + | Performing | Address | City/State/Zipcode | Phone Number | | Organization | | | | + + + + + | [facility] | [address] | [place] [address] | [phone] | + + + + + POC Glucose (05/18/2019 2:20 PM PST) + + + + + + | Component | Value | Ref Range | Performed | Pathologist | | | | | At | Signature | + + + + + + | Glucose, | >400 (H)Comment: Testing | 65 - 99 mg/dL | [facility] | | | POC | performed at [facility];888 | | LABORATORY | | | | [address];[place], [place] | | | | | | [address] | | | | + + + + + + + + | Specimen | + + | | + + + + + + + | Performing | Address | City/State/Zipcode | Phone Number | | Organization | | | | + + + + + | [facility] | [address] | [place] [address] | [phone] | + + + + + POC [...] | POC | performed at [facility];888 | | LABORATORY | | | | [address];[place] | | | | | | [address] | | | | + + + + + + + + | Specimen | + + | | + + + + + + + | Performing | Address | City/State/Zipcode | Phone Number | | Organization | | | | + + + + + | [facility] | [address] | [place] [address] | [phone] | + + + + + POC Glucose (05/18/2019 9:28 AM PST) + + + + + + | Component | Value | Ref Range | Performed | Pathologist | | | | | At | Signature | + + + + + + | Glucose, | 111 (H)Comment: Testing | 65 - 99 mg/dL | [facility] | | | POC | performed at [facility];888 | | LABORATORY | | | | [...] | + + + + + | [facility] | [address] | [place] [address] | [phone] | + + + + + POC [...] | POC | performed at [facility];888 | | LABORATORY | | | | [address];[place], [place] | | | | | | [address] | | | | + + + + + + + + | Specimen | + + | | + + + + + + + | Performing | Address | City/State/Zipcode | Phone Number | | Organization | | | | + + + + + | [facility] | [address] | [place] [address] | [phone] | + + + + + POC [...] | POC | performed at [facility];[address] | | LABORATORY | | | | [address];[place], [place] | | | | | | [address] | | | | + + + + + + + + | Specimen | + + | | + + + + + + + | Performing | Address | City/State/Zipcode | Phone Number | | Organization | | | | + + + + + | [facility] | [address] | [place] [address] | [phone] | + + + + + POC [...] | POC | performed at [facility];[address] | | LABORATORY | | | | [address];[place] | | | | | | [address] | | | | + + + + + + + + | Specimen | + + | | + + + + + + + | Performing | Address | City/State/Zipcode | Phone Number | | Organization | | | | + + + + + | [facility] | [address] | [place] [address] | [phone] | + + + + + Blood [...] | | | | | | [facility];[address] [facility] | | | | | | [address]vd;[place] [address] | | | | + + + + + + + + | Specimen | + + | | + + + + + + + | Performing | Address | City/State/Zipcode | Phone Number | | Organization | | | | + + + + + | [facility] | [address] | [place] [address] | [phone] | + + + + + Drugs [...] | | | performed at [facility];[address] | | | | | | [facility];[place], [place] | | | | | | [address] | | | | + + + + + + + + | Specimen | + + | Urine | + + + + + + + | Performing | Address | City/State/Zipcode | Phone Number | | Organization | | | | + + + + + | [facility] | [address] | [place] [address] | [phone] | + + + + + Ketones, Serum (05/17/2019 10:54 PM PST) + + + + + + | Component | Value | Ref Range | Performed | Pathologist | | | | | At | Signature | + + + + + + | Ketones, | NEGATIVEComment: Testing | NEG | [facility] | | | Blood | performed at [facility];[address] | | LABORATORY | | | | [address];[place], [place] | | | | | | [address] | | | | + + + + + + + + | Specimen | + + | Blood | + + + + + + + | Performing | Address | City/State/Zipcode | Phone Number | | Organization | | | | + + + + + | [facility] | [address] | [place] [address] | [phone] | + + + + + TSH (05/17/2019 10:54 PM PST) + + + + + + | Component | Value | Ref Range | Performed | Pathologist | | | | | At | Signature | + + + + + + | TSH | 1.314Comment: Testing | 0.450 - 5.100 | [facility] | | | | performed at [facility];888 | uIU/mL | LABORATORY | | | | [address];[place] | | | | | | [address] | | | | + + + + + + + + | Specimen | + + | Blood | + + + + + + + | Performing | Address | City/State/Zipcode | Phone Number | | Organization | | | | + + + + + | [facility] | [address] | [place] [address] | [phone] | + + + + + Salicylate Level (05/17/2019 10:54 PM PST) + + + + + + | Component | Value | Ref Range | Performed | Pathologist | | | | | At | Signature | + + + + + + | Salicylate, | <3.0Comment: Testing | 2.8 - 20.0 | [facility] | | | mg/dL | performed at [facility];888 | mg/dL | LABORATORY | | | | [address];[place] | | | | | | [address] | | | | + + + + + + + + | Specimen | + + | Blood | + + + + + + + | Performing | Address | City/State/Zipcode | Phone Number | | Organization | | | | + + + + + | [facility] | [address] | [place] [address] | [phone] | + + + + + Acetaminophen [...] | en, S | performed at [facility];888 | ug/mL | LABORATORY | | | | [address];[place], [place] | | | | | | [address] | | | | + + + + + + + + | Specimen | + + | Blood | + + + + + + + | Performing | Address | City/State/Zipcode | Phone Number | | Organization | | | | + + + + + | [facility] | [address] | [place] [address] | [phone] | + + + + + Ethanol (05/17/2019 10:54 PM PST) + + + + + + | Component | Value | Ref Range | Performed | Pathologist | | | | | At | Signature | + + + + + + | ALCOHOL, | <10Comment: Testing | <10 mg/dL | [facility] | | | SERUM/PLASM | performed at [facility];[address] | | LABORATORY | | | A [address];[place], [place] | | | | | | [address] | | | | + + + + + + + + | Specimen | + + | Blood | + + + + + + + | Performing | Address | City/State/Zipcode | Phone Number | | Organization | | | | + + + + + | [facility] | [address] | [place] [address] | [phone] | + + + + + Comprehensive [...] | | | performed at [facility] | | | | | | [facility];[place], [place] | | | | | | [address] | | | | + + + + + + + + | Specimen | + + | Blood | + + + + + + + | Performing | Address | City/State/Zipcode | Phone Number | | Organization | | | | + + + + + | [facility] | [address] | [place] [address] | [phone] | + + + + + CBC [...] | | Absolute | performed at [facility];[address] | K/uL | LABORATORY | | | | [facility];[place], [place] | | | | | | [address] | | | | + + + + + + + + | Specimen | + + | Blood | + + + + + + + | Performing | Address | City/State/Zipcode | Phone Number | | Organization | | | | + + + + + | [facility] | [address] | [place] [address] | [phone] | + + + + + POC [...] | POC | performed at [facility];[address] | | LABORATORY | | | | [address];[place] | | | | | | [address] | | | | + + + + + + + + | Specimen | + + | | + + + + + + + | Performing | Address | City/State/Zipcode | Phone Number | | Organization | | | | + + + + + | [facility] | [address] | [place] [address] | [phone] | + + + + + documented [...] | | | | | | | 2950-5883 Use NIGHT DOSE for | | | | | | | doses scheduled: HS, 3AM, | | | | | | | Nighttime 7508-5153 If the BG is | | | [...] | | | | | | | 8956-2263 Use NIGHT DOSE for | | | | | | | doses scheduled: HS, 3AM, | | | | | | | Nighttime 6788-9347 If the BG is | | | [...] | | | | | | | 9391-9792 Use NIGHT DOSE for | | | | | | | doses scheduled: HS, 3AM, | | | | | | | Nighttime 9138-6464 If the BG is | | | [...]
--- OUTSIDE RECORDS SUMMARY | ~2019-07-04 | XMS | Encounter Summary ---
Demographics + + + | Address | [address] | | | [place] [address] | + + + | Home Phone [...] Team Providers + +------+ + | Care Ceo Na Name | Role | Phone | + [...] | | [facility] | [place] [address] [place] | diabetes mellitus | | | | CENTER [address] | [place] | with hyperglycemia | | | | [place] | [address] | ([facility] (Primary Dx); | | | | [address] | | Type 2 diabetes | | | | [phone] | | mellitus without | | | [...] J?MRN: | | | | | | [id number] | | | [id number] | | | his | | | [...] | | | Guidel | | | mayeal | | | [facility] | | [facility] [place] | | | y | | | [...] | | | [facility] | | [facility] [place] | | | y H. | | [...] | | | [facility] | | | [place] | | | y H. | | [...] | | | St[facility] | | [facility] [place] | | | y H. | | [...] | | | St[facility] | | | [place] | | | y H. | | [...] | | | St. | | | [place] | | | y H. | | [...] | | | St. | | | [place] | | | y | | | [...] | | | ext. | | | [address] | | | or go | | [...] [address] | [place] | [phone] | | [facility] | | [address] | | | - LABORATORY | | [...] | 0.84 | 0.60 - 1.30 | [facility] | | | | | [...] mL/min/1.73m2 | [facility] | | | [place] | RATE,ESTIMATED | | MEDICAL | | | | mL/min/1.80s6Quwt than | | CENTER - | | [...] ST. | [address] | [place], [place] | [phone] | | [facility] | | [address] | | | - LABORATORY | | [...] | | | | | [place] ([id number]) on | | | | | | [address] | [place] | [phone] | | [facility] | | [address] | | | - LABORATORY | | [...] + | [facility] | [address] | [place] | [phone] | | [facility] | | [address] | | | - LABORATORY | | [...] + | [facility] | [address] | [place] | [phone] | | [facility] | | [address] | | | - LABORATORY | | [...] ST. | [address] | [place], [place] | [phone] | | [facility] | | [address] | | | - LABORATORY | | [...] | | | | | mg/dL | [facility] | | | | | | MEDICAL | | | | | | CENTER - | | | | | | LABORATORY | | + + + + + + | eGFR if not | >60Comment: GLOMERULAR | >=60 | [facility] | | | | FILTRATION | mL/min/1.73m2 | [facility] | | | [place] | RATE,ESTIMATED | | MEDICAL | | | | mL/min/1.34z6Ngrj than | | CENTER - | | [address] | [place] | [phone] | | [facility] | | [address] | | | - LABORATORY | | [address] | [place] | [phone] | | [facility] | | [address] | | | - LABORATORY | | [...] [address] | [place] | [phone] | | [facility] | | [address] | | | - LABORATORY | | [...]
[~2019-07-04 21:09] MED LIST changes: +ABILIFY5 MG PO
== END 2019-07-04 22:47 | disposition home or self-care (01) ==
LOC: ED 21:09
DX: J06.9 Acute upper respiratory infection, unspecified (principal); E10.649 Type 1 diabetes mellitus with hypoglycemia without coma; Z79.4 Long term (current) use of insulin
CPT/HCPCS: 87502; 99283

== ENCOUNTER 2019-08-29 06:26 | Emergency (ER) | payer OTHER ==
[~2019-08-29] VITALS: Ht 175.3 cm; Wt 61.4 kg
[~2019-08-29 06:26] MED LIST changes: -LIPITOR10 MG; +LIPITOR10 MG PO
== END 2019-08-29 07:45 | disposition home or self-care (01) ==
LOC: ED 06:26
DX: F22 Delusional disorders (principal); E10.9 Type 1 diabetes mellitus without complications; F15.10 Other stimulant abuse, uncomplicated; F31.9 Bipolar disorder, unspecified; F17.200 Nicotine dependence, unspecified, uncomplicated; Z88.8 Allergy status to other drugs, medicaments and biological substances; Z91.030 Bee allergy status; Z79.899 Other long term (current) drug therapy
CPT/HCPCS: 80053; 80176; 81001; 84443; 85025; 99283; G0480

== ENCOUNTER 2019-08-30 20:36 | Observation (INO) | payer OTHER ==
[~2019-08-30] VITALS: Ht 175.3 cm; Wt 55.3 kg
--- NOTE | 2019-08-31 00:08 | NUR ---
PT ADMITTED TO ROOM 128, PT COOPERATIVE WITH ADMITTE PROCESS. CBG'S CHECKED Q 1 HOUR PER ORDERS.
--- NOTE | 2019-08-31 04:00 | NUR ---
INSULIN DRIP STARTED AT [address] BATISTA. CBG 178 AT THIS TIME. ALSO NEW IV SITE OBTAINED AT THIS TIME FOR INSULIN DRIP. PT REMAINS COOPERATIVE WITH HOSPITAL ROUTINE.
--- NOTE | 2019-08-31 05:30 | NUR ---
DEANDRE LABS OBTAINED.
--- NOTE | 2019-08-31 07:30 | NUR ---
REPORT RECIEVED. SLEEPING, NO DISTRESS NOTED.
--- NOTE | 2019-08-31 08:00 | NUR ---
C/O NAUSEA. ASSESSMENT DONE. ACCUCHECK-177. INSULIN GTT TO 2.4 UNITS/HR.
--- NOTE | 2019-08-31 08:08 | NUR ---
ZOFRAN 4 MG IV GIVEN FOR NAUSEA.
--- NOTE | 2019-08-31 09:00 | NUR ---
VOMITED 250 ML OF CLEAR LIGHT YELLOW EMESIS. HAS BEEN TALKING SMALL SIPS OF WATER OF ORAL COMFORT. FLAT AFFECT.
[2019-08-31] MEDS ORDERED: INSULIN AS100 UNIT/3 SUB-Q (09:07)
[2019-08-31] MEDS ORDERED: LISINOPRIL5 MG PO (09:08)
[2019-08-31] MEDS ORDERED: ATOMOXETINE HC100 MG PO (09:09)
[2019-08-31] MEDS ORDERED: DULOXETINE HCL60 MG PO (09:10)
--- NOTE | 2019-08-31 10:10 | NUR ---
SMALL EMESIS OF 100 ML OF CLEAR YELLOW. COMPAZINE 5 MG IV GIVEN.
--- NOTE | 2019-08-31 10:35 | NUR ---
resting now. INSULIN GTT AT 1.2 UNITS/HR.
--- NOTE | 2019-08-31 12:00 | NUR ---
REMAINS ON INSULIN GTT. C/O MILD NAUSEA. REFUSING LUNCH. ASSESSMENT DEFERRED AT THIS TIME PATIENT WISHES TO SLEEP. WILL ANSWERE QUESTIONS WITH ONE-TWO WORDS. IS DIFFICULT TO UNDERSTAND.
--- NOTE | 2019-08-31 14:06 | NUR ---
INSULIN GTT TITRATED DOWN TO 0.9 UNITS/HR CBG WAS 149. PT RESTING ON RIGTH SIDE. PT NOT CONVERSIVE AT THIS TIME.
--- NOTE | 2019-08-31 14:45 | NUR ---
IS REQUESTING FOOD.
--- NOTE | 2019-08-31 15:35 | NUR ---
TOOK FOOD WELL. IS MORE ALERT AND FEELING BETTER. REMAINS ON INSULIN GTT.
--- NOTE | 2019-08-31 16:00 | NUR ---
ASSESSMENT DONE. DENIES NAUSEA. MUCH MORE TALKATIVE. IS FEELING BETTER. REMAINS ON INSULIN GTT AT 1.4 UNITS/HR. ACCUCHECK 188.
--- NOTE | 2019-08-31 16:26 | NUR ---
Med rec completed via fill history in [employer]. However unable to verify if patient is currently on Lipitor 10 mg. [facility], they stated he has not filled this medication at their pharmacy. Unable to interview patient.
--- NOTE | 2019-08-31 17:00 | NUR ---
DR. BATISTA UP DATED ON PATIENT , ORDERS RECIEVED THAT IT IS OKAY TO HOLD BOTH INSULIN GTT AND IVF WHILE SHOWER GIVEN.
--- NOTE | 2019-08-31 17:55 | NUR ---
TO SHOWER. AMBULATING WELL. DENEIS DIZZINESS.
--- NOTE | 2019-08-31 18:30 | NUR ---
RETURN FROM SHOWER. TOLERATED WELL. INSULIN GTT TO 1.4 IN COLUMN ONE. MORE FOOD ORDERED.
--- NOTE | 2019-08-31 20:13 | NUR ---
RESTING IN BED. DENIES NAUSEA, REUQESTING SNACK. BS 266,INSULIN GTT TO 6.3 UNITS/HR PER PROTOCOL.
--- NOTE | 2019-08-31 21:26 | NUR ---
CONT TO REST, ATE 100% COTTAGE CHEESE
--- NOTE | 2019-08-31 23:15 | NUR ---
PT CONT TO SLEEP OFF AND ON. CONT HOURLY BS CHECKS. SEE FLOW SHEET.
--- NOTE | 2019-08-31 23:53 | NUR ---
AWAKENS EASILY, BRIEF ASSESSMENT DONE. BACK TO SLEEP.
--- NOTE | 2019-09-01 00:47 | NUR ---
DR BATISTA GIVEN UPDATE. INSULIN GTT DC'D, AND IVR OFF.
--- NOTE | 2019-09-01 03:35 | NUR ---
AWAKE TO VOID, HAS NO C/O. GIVEN COFFEE PER REQUEST.
--- NOTE | 2019-09-01 06:23 | NUR ---
TAKING PO WITHOUT PROBLEMS, NO NAUSEA.
--- NOTE | 2019-09-01 07:16 | NUR ---
Spoke with Kamari, who is well know to me from past case management. He lives in [place] in an apartment. Does not have a cook stove, so cooks meals in a crock pot. Kamari uses the [employer] q 2 weeks. He does not have transporation so walks everywhere. His mom lives in the area and his sister lives in [place]. He does his laundry at her house. Kamari is on the ACT program through [employer] and sees Mike Jacinto. He states Mike has adjusted his medications and he feels his schizoprenia is better controlled. He believes his schizphrenia is a result of his low blood sugars. Have attempted in the past to work with pt on med management by setting up med boxes. Orginally this worked well, but pt declined to take meds as prescribed. He states this time he thought his blood sugar was low and he just was not feeling well. He called his mom and she called the ambulance. He states he ran out of his long acting insulin and doubled up on his short acting. He plans on filling his long acting insulin at [facility] on dc as he has year prescription. Plans to dc to home per taxi on discharge. ACT team have been in to see him during his stay.
--- NOTE | 2019-09-01 07:30 | NUR ---
PATIENT RESTING IN BED AT THIS TIME. 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 NO OTHER NEEDS AT THIS TIME. WILL CONTINUE TO CLOSELY MONITOR.
--- NOTE | 2019-09-01 10:00 | NUR ---
PATIENT RESTING IN ROOM DCD 1 IV. PATIENT HAS DISCAHRGE ORDERS IN PLACE. WILL WORK ON DISCHARGE. PATIENT AGREEABLE TO PLAN OF CARE. PATIENT WOULD LIKE TO EAT LUNCH PRIOR TO DISCHARGE. PER MONA WILL CALL AND SET UP AN APPOINTMENT FOR PATIENT UPON DISCHARGE. ALL MEDICATIONS ADMINISTERED. WILL CONTINUE TO CLOSELY MONITOR.
--- NOTE | 2019-09-01 11:50 | NUR ---
PATIENT DISCHARGE INSTRUCTIONS GIVEN AND REVIEWED WITH PATIENT. ALL QUESTIONS ANSWERED. APPOINTMENT MADE WITH DR BRADSHAW AND OUTLINED IN DISCHARGE INFORMATION ON WHEN IT IS AND HOW TO CALL FOR A RIDE. ALL IVS DISCONTINUED. PATIENT IS AGREEABLE TO PLAN OF CARE. WALKED WITH PATIENT TO THE COMPUTER SCIENTIST. COMPUTER SCIENTIST CALLED FOR A TAXI RIDE. ALL BELONGINGS WITH PATIENT. NO OTHER NEEDS AT THIS TIME.
--- NOTE | 2019-09-01 12:43 | NUR ---
PT LAYING ON BED DRESSED AND AWAITING DC. HE SAID HE FELT MUCH BETTER, WAITING FOR LUNCH. PT CONTINUED TO GAZE OUT THE WINDOW DURING VISIT-SORT OF DETATCHED. GAVE ENCOURAGEMENT TO PT, HE WASN'T QUITE SURE HOW TO RESPOND. GAVE BLESSING.
== END 2019-09-01 11:51 | disposition home or self-care (01) ==
LOC: ED 20:36 → CCU 20:38
PROVIDERS: ADMIT Internal Medicine
DX: E10.10 Type 1 diabetes mellitus with ketoacidosis without coma (principal); E10.65 Type 1 diabetes mellitus with hyperglycemia; F31.9 Bipolar disorder, unspecified; F90.9 Attention-deficit hyperactivity disorder, unspecified type; F20.9 Schizophrenia, unspecified; F17.200 Nicotine dependence, unspecified, uncomplicated; Z88.8 Allergy status to other drugs, medicaments and biological substances; Z79.899 Other long term (current) drug therapy; Z91.038 Other insect allergy status
CPT/HCPCS: 36415; 80048; 80053; 82010; 82803; 84100; 85025; 96361; 96374; 96375; 96376; 99285-25; 99406; G0378; J0780; J1815; J2405; J7030; J7042

== ENCOUNTER 2019-11-30 00:03 | Emergency (ER) | payer OTHER ==
[~2019-11-30] VITALS: Ht 175.3 cm; Wt 58.2 kg
--- OUTSIDE RECORDS SUMMARY | ~2019-11-30 | XMS | Encounter Summary ---
Demographics + + + | Address | [address] | | | [place] [address] | + + + | Home Phone | | + + + | Preferred Language | Unknown | + + + | Marital Status | Single | + + + | Presybeterian Affiliation | 1001 | + + + | Race | Unknown | + + + | Ethnic Group | Unknown | + + + Author + + + | Author | [facility] | | | and Ryana | + + + | Organization | [facility] | | | and Ryana | + + + | Address | Unknown | + + + | Phone | Unavailable | + + + Support + + +---------+ + | Name | Relationship | Address | Phone | + + +---------+ + | Blossom Kwon | ECON | Unknown | | + + +---------+ + Care Team Providers + +------+ + | Care Cigarette Packer Name | Role | Phone | + +------+ + | Shavon Covington | PCP | | + +------+ + Reason for Visit + + + | Reason | Comments | + + + | Cold-like Symptoms | | + + + | Elevated Blood Sugar | | | (Symptomatic) | | + + + Encounter Details +--------+ + + + + | Date | Type | Department | Care Team | Description | +--------+ + + + + | 04/09/ | Emergency | [facility] | Adi Castro | Hyperglycemia | | 2017 | | [facility] | Alexander Craig MD | (Primary Dx) | | | | CENTER [address] | [address] | | | | | [place] | [place] | | | | | [address] | [address] | | | | | [phone] | | | +--------+ + + + + Social History + + + +--------+------+ | Tobacco Use | Types | Packs/Day | Years | Date | | | | | Used | | + + + +--------+------+ | Current Every Day | Cigarettes | 0.5 | | | | Smoker | | | | | + + + +--------+------+ + + +---------+ + | Alcohol Use | Drinks/Week | oz/Week | Comments | + + +---------+ + | Yes | | | occassionally | + + +---------+ + + + + | Sex Assigned at | Date Recorded | | | | + + + | Not on file | | + + + + + + + | Job Start Date | Occupation | Industry | + + + + | Not on file | Not on file | Not on file | + + + + + + + + | Travel History | Travel Start | Travel End | + + + + + + | No recent travel history available. | + + documented as of this encounter Last Filed Vital Signs + + + + + | Vital Sign | Reading | Time Taken | Comments | + + + + + | Blood Pressure | 111/79 | 04/09/2017 12:57 PM | | | | | PDT | | + + + + + | Pulse | 78 | 04/09/2017 12:57 PM | | | | | PDT | | + + + + + | Temperature | 36.7 C (98 F) | 04/09/2017 9:30 AM | | | | | PDT | | + + + + + | Respiratory Rate | 14 | 04/09/2017 9:30 AM | | | | | PDT | | + + + + + | Oxygen Saturation | 100% | 04/09/2017 12:57 PM | | | | | PDT | | + + + + + | Inhaled Oxygen | - | - | | | Concentration | | | | + + + + + | Weight | 59 kg (130 lb) | 04/09/2017 9:30 AM | | | | | PDT | | + + + + + | Height | 177.8 cm (5' 10") | 04/09/2017 9:30 AM | | | | | PDT | | + + + + + | Body Mass Index | 18.65 | 04/09/2017 9:30 AM | | | | | PDT | | + + + + + documented in this encounter Functional Status + + + + | Functional Status | Response | Date of Assessment | + + + + | Are you deaf or do you have serious | No | 10/04/2016 | | difficulty hearing? | | | + + + + | Are you blind or do you have serious | No | 10/04/2016 | | difficulty seeing, even when wearing | | | | glasses? | | | + + + + | Do you have serious difficulty walking or | No | 10/04/2016 | | climbing stairs? (5 years old or older) | | | + + + + | Do you have difficulty dressing or bathing? | No | 10/04/2016 | | (5 years old or older) | | | + + + + | Because of a physical, mental, or emotional | No | 10/04/2016 | | condition, do you have difficulty doing | | | | errands alone such as visiting a doctor's | | | | office or shopping? [15 years old or | | | | older)] | | | + + + + + + + + | Cognitive Status | Response | Date of Assessment | + + + + | Because of a physical, mental, or emotional | No | 10/04/2016 | | condition, do you have serious difficulty | | | | concentrating, remembering, or making | | | | decisions? (5 years old or older) | | | + + + + documented as of this encounter Discharge Instructions Instructions Adi Castro MD - 04/09/2017Continue diabetic diet. Continue taking insulin as directed. Return for severe worsening symptoms. Please follow-up with he r primary care issues. Drink plenty of fluids. documented in this encounter Medications at Time of Discharge + + + +---------+ + + | Medication | Sig | Dispensed | Refills | Start | End Date | | | | | | Date | | + + + +---------+ + + | insulin glargine | Inject 20 Units | 10 mL | 11 | 10/05/19 | | | (LANTUS) 100 | under the skin | | | 17 | 7 | | units/mL injection | nightly. | | | | | | (vial) | | | | | | + + + +---------+ + + | insulin lispro | Inject 5 Units under | 10 mL | 11 | 10/05/19 | | | (HUMALOG) 100 | the skin 3 times | | | 17 | 7 | | units/mL injection | daily (before | | | | | | (vial) | meals). Plus sliding | | | | | | | scale | | | | | + + + +---------+ + + | ondansetron | Take 1 tablet by | 15 | 0 | 04/09/20 | | | (ZOFRAN ODT) 4 mg | mouth every 6 hours | tablet | | 17 | 7 | | disintegrating | as needed. | | | | | | tablet | | | | | | + + + +---------+ + + documented as of this encounter Plan of Treatment + +------+--------+ + + | Name | Type | Priori | Associated Diagnoses | Date/Time | | | | ty | | | + +------+--------+ + + | ED INFORMATION | KELLY | Routin | | 04/09/2017 9:09 AM | | EXCHANGE | | e | | PDT | + +------+--------+ + + documented as of this encounter Procedures + +--------+ + + + | Procedure Name | Priori | Date/Time | Associated Diagnosis | Comments | | | ty | | | | + +--------+ + + + | POC GLUCOSE | Routin | 04/09/2017 | | Results for this | | | e | 12:35 PM | | procedure are in the | | | | PDT | | results section. | + +--------+ + + + | POC GLUCOSE | Routin | 04/09/2017 | | Results for this | | | e | 10:57 AM | | procedure are in the | | | | PDT | | results section. | + +--------+ + + + | RT PEAK FLOW | Routin | 04/09/2017 | | | | | e | 10:32 AM | | | | | | PDT | | | + +--------+ + + + | XR CHEST AP PORTABLE | STAT | 04/09/2017 | | Results for this | | | | 9:56 AM | | procedure are in the | | | | PDT | | results section. | + +--------+ + + + | POC BLOOD GASES | Routin | 04/09/2017 | | Results for this | | | e | 9:41 AM | | procedure are in the | | | | PDT | | results section. | + +--------+ + + + | BETA | STAT | 04/09/2017 | | Results for this | | HYDROXYBUTYRATE, | | 9:40 AM | | procedure are in the | | QUANT | | PDT | | results section. | + +--------+ + + + | CBC WITH | STAT | 04/09/2017 | | Results for this | | DIFFERENTIAL | | 9:40 AM | | procedure are in the | | | | PDT | | results section. | + +--------+ + + + | LIPASE | STAT | 04/09/2017 | | Results for this | | | | 9:40 AM | | procedure are in the | | | | PDT | | results section. | + +--------+ + + + | LACTIC ACID | STAT | 04/09/2017 | | Results for this | | | | 9:40 AM | | procedure are in the | | | | PDT | | results section. | + +--------+ + + + | COMPREHENSIVE | STAT | 04/09/2017 | | Results for this | | METABOLIC PANEL | | 9:40 AM | | procedure are in the | | | | PDT | | results section. | + +--------+ + + + | POCT URINALYSIS, | STAT | 04/09/2017 | | Results for this | | AUTO WITH CONF | | 9:38 AM | | procedure are in the | | | | PDT | | results section. | + +--------+ + + + | POC GLUCOSE | Routin | 04/09/2017 | | Results for this | | | e | 9:23 AM | | procedure are in the | | | | PDT | | results section. | + +--------+ + + + | ED INFORMATION | Routin | 04/09/2017 | | | | EXCHANGE | e | 9:09 AM | | | | | | PDT | | | + +--------+ + + + +---+--------+ | | | | | Proced | | | ure | | | Note - | | | Scottie, | | | Lab In | | | | | | Hlseve | | | n - | | | | | | 2016 | | | 9:10 | | | AM PDT | | | | | | Format | | | ting | | | of | | | this | | | note | | | might | | | be | | | differ | | | ent | | | from | | | the | | | origin | | | al.SCOTTIE | | | E?NOTI | | | FICATI | | | ON?10/ | | | 18/201 | | | 7 | | | 09:07? | | | VU | | | , | | | BENJAM | | | IN | | | J?MRN: | | | | | | [id number] | | | [id number] | | | his | | | patien | | | t has | | | regist | | | ered | | | at the | | | | | | Provid | | | ence | | | [facility] | | | [facility] | | | [facility] | | | [...] | | | //secu | | | re.scottie | | | ecarep | | | russ.co | | | m/leonardo | | | ent/37 | | | [id number] | | | -[id number] | | | [id number] | | | [id number] | | | [id number] | | | ee2b | | | ED | | | Care | | | Guidel | | | inesTh | | | ere | | | are | | | curren | | | tly no | | | ED | | | Care | | | Guidel | | | mayela | | | in | | | [facility] | | | for | | | this | | | patien | | | t. | | | Please | | | check | | | your | | | facili | | | ty's | | | medica | | | l | | | record | | | s | | | system | | | .Recen | | | t | | | Emerge | | | ncy | | | Depart | | | ment | | | Visit | | | Summar | | | yAdmit | | | Date | | | Facili | | | ty | | | City | | | State | | | Type | | | Major | | | Type | | | Diagno | | | ses or | | | Chief | | | | | | Compla | | | int | | | Oct | | | 18, | | | 2017 | | | Provid | | | ence | | | [facility] | | [facility] [place] | | | [place] | | | Emerge | | | ncy | | | Emerge | | | ncy | | | cold | | | like | | | sympto | | | ms | | | Oct | | | 12, | | | 2017 | | | [facility] | [place] | | | [facility] | | | [place] | | | [place] | | | Emerge | | | ncy | | | Emerge | | | ncy | | | Chief | | | Compla | | | int: | | | VOMITI | | | NG/BLO | | | OD | | | SUGAR | | | PROBLE | | | MS | | | Oct 5, | | | 2017 | | | [facility] | [place] | | | [facility] | | | [place] | | | [place] | | | Emerge | | | ncy | | | Emerge | | | ncy | | | Chief | | | Compla | | | int: | | | DKA | | | Oct 4, | | | 2017 | | | [facility] | [place] | | | [facility]. | | | [place] | | [place] | | | Emerge | | | ncy | | | Emerge | | | [...] | | | leavin | | | g | | | prior | | | to | | | being | | | seen | | | by | | | health | | | care | | | provid | | | er | | | Sep | | | 27, | | | 2017 | | | [facility] | [place] | | | [facility] | | | [place] | | | [place] | | | Emerge | | | ncy | | | Emerge | | | ncy | | | | | | Acquir | | | ed | | | absenc | | | e of | | | other | | | organs | | | | | | Bipola | | | r | | | disord | | | er, | | | unspec | | | ified | | | | | | Acute [...] | | | ical | | | substa | | | nces | | | status | | | | | | Attent | | | ion-de | | | ficit | | | hypera | | | ctivit | | | y | | | disord | | | er, | | | unspec | | | ified | | | type | | | Type | | | 1 | | | diabet | | | es | | | mellit | | | us | | | withou | | | t | | | compli | | | cation | | | s | | | Cough | | | | | | Other | | | long | | | term | | | (curre | | | nt) | | | drug | | | therap | | | y | | | Acute | | | bronch | | | itis, | | | unspec | | | ified | | | | | | Nicoti | | | ne | | | depend | | | ence, | | | unspec | | | ified, | | | | | | uncomp | | | licate | | | d Sep | | | 11, | | | 2017 | | | [facility] | [place] | | | [facility] | | | [place] | | | [place] | | | Emerge | | | ncy | | | Emerge | | | ncy | | | Chief | | | Compla | | | int: | | | MUTIPL | | | E | | | COMPLA | | | INTS | | | E.D. | | | Visit | | | Count | | | (12 | | | mo.)Fa | | | cility | | | | | | Visits | | | Low | | | Acuity | | | | | | Provid | | | ence | | | St. | | | [facility] | | | Medica | | | l | | | Center | | | 5 0 | | | [facility] | [place] | | | y | | | Hospit | | | al 11 | | | 0 | | | Total | | | 16 0 | | | Note: | | [...] | | | Summar | | | yNo | | | record | | | ed | | | inpati | | | ent | | | visits | | | . | | | Washin | | | gton | | | PDMP | | | Report | | | PDMP | | | query | | | found | | | no | | | report | | | .Care | | | Provid | | | ersPro | | | vider | | | PRC | | | Type | | | Phone | | | Fax | | | Servic | | | e | | | Dates | | | [facility] | | | [facility] | | | [facility] | | | | | | [facility] | | | OD | | | [facility] | | | [facility] | | | [facility] | | | | | | CENTER | | | | | | Primar | | | y Care | | | | | | (503) | | | [phone] | | | 68 Apr | | | 28, | | | 2015 - | | | | | | Curren | | | t | | | [facility] | | | [facility] | | | OD | | | DENTAL | | | | | | CLINIC | | | Other | | | (503) | | | | | | [phone] | | | 42 | | | (503) | | | 988-48 | | | 79 Feb | | | 1, | | | 2016 - | | | | | | Curren | | | t | | | [facility] | | | [facility] | | | OD | | | COMMUN | | | IT[facility] | | | HEALTH | | | | | | CENTER | | | | | | Primar | | | y Care | | | (503) | | | | | | 988-54 | | | 00 | | | (503) | | | [phone] | | | 68 Feb | | | 1, | | | 2016 - | | | | | | Curren | | | t | | | Hatche | | | r, | | | Peter | | | MD | | | Primar | | | y Care | | | (503) | | | | | | 988-54 | | | 00 | | | (503) | | | 988-56 | | | 68 | | | Curren | | | t | | | Peter | | | W | | | Hatche | | | r | | | Primar | | | y Care | | | | | | (503) | | | 988-56 | | | 68 | | | Curren | | | t | | | LUKE | | | , [facility] | | | E. | | | Primar | | | y Care | | | | | | Curren | | | t | | | Criter | | | ia met | | | 4 | | | visits | | | in | | | 60Know | | | n | | | Aliase | | | sNo | | | known | | | aliase | | | s. The | | | above | | | | | | inform | | | ation | | | is | | | provid | | | ed for | | | the | | | sole | | | purpos | | | e of | | | patien | | | t | | | treatm | | | ent. | | | Use of | | | this | | | inform | | | ation | | | beyond | | | the | | | terms | | | of | | | Data | | | Sharin | | | g | | | Memora | | | ndum | | | of | | | Unders | | | tandin | | | g and | | | Licens | | | e | | | Agreem | | | ent is | | | | | | prohib | | | ited. | | | In | | | certai | | | n | | | cases | | | not | | | all | | | visits | | | may | | | be | | | repres | | | ented. | | | | | | Consul | | | t the | | | aforem | | | ention | | | ed | | | facili | | | ties | | | for | | | additi | | | onal | | | inform | | | ation. | | | ? | | | 2017 | | | [employer]le[employer] | | | tive | | | Medica | | | l | | | [employer] | | | logies | | | , [employer] | | | - | | | [place] | | | [place] | | | [place], | | | [place] - | | | [email or web address]@c | | | ollect | | | ivemed | | | icalte | | | [email or web address] | | | | +---+--------+ documented in this encounter Results POC Glucose (04/09/2017 12:35 PM PDT) + +---------+ + + + | Component | Value | Ref Range | Performed | Pathologist | | | | | At | Signature | + +---------+ + + + | Glucose, | 386 (H) | 70 - 109 mg/dL | [facility] | | | POC | | | [facility] | | | | | | [facility]ICAL | | | | | | CENTER - | | | | | | LABORATORY | | + +---------+ + + + + + | Specimen | + + | Blood | + + + + + + + | Performing | Address | City/State/Zipcode | Phone Number | | Organization | | | | + + + + + | [facility] | [address] | [place] | [phone] | | [facility] | | [address] | | | - LABORATORY | | | | + + + + + POC Glucose (04/09/2017 10:57 AM PDT) + +---------+ + + + | Component | Value | Ref Range | Performed | Pathologist | | | | | At | Signature | + +---------+ + + + | Glucose, | 483 (H) | 70 - 109 mg/dL | [facility] | | | POC | | | [facility] | | | | | | MEDICAL | | | | | | CENTER - | | | | | | LABORATORY | | + +---------+ + + + + + | Specimen | + + | Blood | + + + + + + + | Performing | Address | City/State/Zipcode | Phone Number | | Organization | | | | + + + + + | [facility] | [address] | [place] | [phone] | | [facility] | | [address] | | | - LABORATORY | | | | + + + + + XR Chest AP Portable (04/09/2017 9:56 AM PDT) + + | Specimen | + + | | + + + + + | Narrative | Performed At | + + + | CLINICAL INFORMATION: COLD-LIKE SYMPTOMS. COMPARISON: | [facility] | | 10/03/2016. FINDINGS: Portable frontal chest radiograph | | | Lungs: No focal airspace disease, pleural effusion, or pneumothorax. | | | Heart/mediastinum: Cardiac silhouette is of normal size. Central | | | pulmonary vasculature has a normal appearance. Bones: No acute | | | osseous abnormality appreciated. IMPRESSION - No acute disease. | | | Dictated and Signed by: Braeden Siddiqui MD Electronically | | | signed: 04/09/2017 9:59 AM | | + + + + + | Procedure Note | + + | Foreign Carl Results In - 04/09/2017 10:02 AM PDT | | CLINICAL INFORMATION: COLD-LIKE SYMPTOMS. | | | | COMPARISON: 10/03/2016. | | | | FINDINGS: | | Portable frontal chest radiograph | | | | Lungs: No focal airspace disease, pleural effusion, or pneumothorax. | | | | Heart/mediastinum: Cardiac silhouette is of normal size. Central pulmonary | | vasculature has a normal appearance. | | | | Bones: No acute osseous abnormality appreciated. | | | | IMPRESSION - No acute disease. | | | | Dictated and Signed by: Braeden Siddiqui MD | | Electronically signed: 04/09/2017 9:59 AM | + + + +---------+ + + | Performing | Address | City/State/Zipcode | Phone Number | | Organization | | | | + +---------+ + + | [facility] | | | | + +---------+ + + POC Blood Gases (04/09/2017 9:41 AM PDT) + +---------+ + + + | Component | Value | Ref Range | Performed | Pathologist | | | | | At | Signature | + +---------+ + + + | Specimen | Vein | | [facility] | | | Source | | | [facility] | | | | | | MEDICAL | | | | | | CENTER - | | | | | | LABORATORY | | + +---------+ + + + | pH, POC | 7.440 | 7.3 - 7.45 | [facility] | | | | | | [facility] | | | | | | MEDICAL | | | | | | CENTER - | | | | | | LABORATORY | | + +---------+ + + + | HCO3, POC | 27.6 | 21.0 - 28.0 | [facility] | | | | | mmol/L | [facility] | | | | | | MEDICAL | | | | | | CENTER - | | | | | | LABORATORY | | + +---------+ + + + | TCO2, POC | 28.8 | 22.0 - 29.0 | [facility] | | | | | mmol/L | [facility] | | | | | | MEDICAL | | | | | | CENTER - | | | | | | LABORATORY | | + +---------+ + + + | Base | 3.1 (H) | -2.0 - 3.0 | [facility] | | | Excess, POC | | mmol/L | [facility] | | | | | | MEDICAL | | | | | | CENTER - | | | | | | LABORATORY | | + +---------+ + + + | Base | 3.4 (H) | -2.0 - 3.0 | [facility] | | | Excess, | | mmol/L | [facility] | | | Extracellul | | | MEDICAL | | | ar fluid, | | | CENTER - | | | POC | | | LABORATORY | | + +---------+ + + + | O2 Sat, POC | 64 (L) | 90 - 100 % | [facility] | | | | | | [facility] | | | | | | MEDICAL | | | | | | CENTER - | | | | | | LABORATORY | | + +---------+ + + + | PCO2, POC | 40.7 | 35.0 - 50.0 | [facility] | | | | | mmHg | [facility] | | | | | | MEDICAL | | | | | | CENTER - | | | | | | LABORATORY | | + +---------+ + + + | pO2, POC | 31.9 | 25.0 - 50.0 | [facility] | | | | | mmHg | [facility] | | | | | | MEDICAL | | | | | | CENTER - | | | | | | LABORATORY | | + +---------+ + + + + + | Specimen | + + | | + + + + + + + | Performing | Address | City/State/Zipcode | Phone Number | | Organization | | | | + + + + + | [facility] | [address] | [place] | [phone] | | [facility] | | [address] | | | - LABORATORY | | | | + + + + + Beta Hydroxybutyrate, Quant (04/09/2017 9:40 AM PDT) + + + + + + | Component | Value | Ref Range | Performed | Pathologist | | | | | At | Signature | + + + + + + | Beta | 0.51 (H) | 0.02 - 0.27 | [facility] | | | Hydroxybuty | | mmol/L | [facility] | | | rate | | | MEDICAL | | | | | | CENTER - | | | | | | LABORATORY | | + + + + + + + + | Specimen | + + | Blood | + + + + + + + | Performing | Address | City/State/Zipcode | Phone Number | | Organization | | | | + + + + + | [facility] | [address] | [place] | [phone] | | [facility] | | [address] | | | - LABORATORY | | | | + + + + + Lactic Acid (04/09/2017 9:40 AM PDT) + +-------+ + + + | Component | Value | Ref Range | Performed | Pathologist | | | | | At | Signature | + +-------+ + + + | Lactate | 1.2 | 0.5 - 2.2 | [facility] | | | | | mmol/L | [facility] | | | | | | MEDICAL | | | | | | CENTER - | | | | | | LABORATORY | | + +-------+ + + + + + | Specimen | + + | Blood | + + + + + + + | Performing | Address | City/State/Zipcode | Phone Number | | Organization | | | | + + + + + | [facility] | [address] | [place] | [phone] | | [facility] | | [address] | | | - LABORATORY | | | | + + + + + Lipase (04/09/2017 9:40 AM PDT) + +-------+ + + + | Component | Value | Ref Range | Performed | Pathologist | | | | | At | Signature | + +-------+ + + + | Lipase | 23 | 0 - 60 U/L | [facility] | | | | | | [facility] | | | | | | MEDICAL | | | | | | CENTER - | | | | | | LABORATORY | | + +-------+ + + + + + | Specimen | + + | Blood | + + + + + + + | Performing | Address | City/State/Zipcode | Phone Number | | Organization | | | | + + + + + | [facility] | [address] | [place] | [phone] | | [facility] | | [address] | | | - LABORATORY | | | | + + + + + Comprehensive Metabolic Panel (04/09/2017 9:40 AM PDT) + + + + + + | Component | Value | Ref Range | Performed | Pathologist | | | | | At | Signature | + + + + + + | Na | 119 (LL)Comment: | 136 - 149 | [facility] | | | | Critical Result called | mmol/L | [facility] | | | | to and read back by | | MEDICAL | | | | Salome Carrillo RN on | | CENTER - | | | | 04/09/2017 at 10:22 by | | LABORATORY | | | | Siri Covington. | | | | + + + + + + | K | 5.2 (H) | 3.5 - 5.1 | [facility] | | | | | mmol/L | [facility] | | | | | | MEDICAL | | | | | | CENTER - | | | | | | LABORATORY | | + + + + + + | Cl | 86 (L) | 98 - 109 mmol/L | [facility] | | | | | | [facility] | | | | | | MEDICAL | | | | | | CENTER - | | | | | | LABORATORY | | + + + + + + | CO2 | 26 | 24 - 31 mmol/L | [facility] | | | | | | [facility] | | | | | | MEDICAL | | | | | | CENTER - | | | | | | LABORATORY | | + + + + + + | Anion Gap | 7 | 3 - 16 mmol/L | [facility] | | | | | | [facility] | | | | | | MEDICAL | | | | | | CENTER - | | | | | | LABORATORY | | + + + + + + | Glucose | 722 ()Comment: | 70 - 109 mg/dL | [facility] | | | | Critical Result called | | [facility] | | | | to and read back by | | MEDICAL | | | | Salome Carrillo RN on | | CENTER - | | | | 04/09/2017 at 10:22 by | | LABORATORY | | | | Siri Covington. | | | | + + + + + + | BUN | 14 | 7 - 18 mg/dL | [facility] | | | | | | [facility] | | | | | | MEDICAL | | | | | | CENTER - | | | | | | LABORATORY | | + + + + + + | Creatinine | 0.93 | 0.60 - 1.30 | [facility] | | | | | mg/dL | [facility] | | | | | | MEDICAL | | | | | | CENTER - | | | | | | LABORATORY | | + + + + + + | eGFR if not | >60Comment: GLOMERULAR | >=60 | [facility] | | | | FILTRATION | mL/min/1.73m2 | [facility] | | | [facility] | RATE,ESTIMATED | | MEDICAL | | | | mL/min/1.98d0Fotl than | | CENTER - | | | | 60 Chronic kidney | | LABORATORY | | | | disease,if found over a | | | | | | 3-month period.Less than | | | | | | 15 Kidney failureFor | | | | | | | | | | | | Americans,multiply the | | | | | | calculated GFR by 1.21. | | | | | | | | | | + + + + + + | Calcium | 8.5 | 8.3 - 10.5 | [facility] | | | | | mg/dL | [facility] | | | | | | [facility] | | | | | | CENTER - | | | | | | LABORATORY | | + + + + + + | Albumin | 3.3 | 3.2 - 5.0 g/dL | [facility] | | | | | | [facility] | | | | | | [facility] | | | | | | [facility] - | | | | | | LABORATORY | | + + + + + + | Bilirubin | 0.5Comment: This is an | 0.1 - 1.5 mg/dL | [facility] | | | Total | appended report. These | | [facility] | | | | results have been | | MEDICAL | | | | appended to a previously | | CENTER - | | | | preliminary verified | | LABORATORY | | | | report. | | | | + + + + + + | Total | 5.2 (L) | 6.0 - 7.8 g/dL | [facility] | | | Protein | | | [facility] | | | | | | [facility] | | | | | | CENTER - | | | | | | LABORATORY | | + + + + + + | AST | 17Comment: This is an | 10 - 42 U/L | [facility] | | | | appended report. These | | [facility] | | | | results have been | | MEDICAL | | | | appended to a previously | | CENTER - | | | | preliminary verified | | LABORATORY | | | | report. | | | | + + + + + + | ALT | 18Comment: This is an | 6 - 45 U/L | [facility] | | | | appended report. These | | [facility] | | | | results have been | | MEDICAL | | | | appended to a previously | | CENTER - | | | | preliminary verified | | LABORATORY | | | | report. | | | | + + + + + + | Alkaline | 84Comment: This is an | 40 - 110 U/L | [facility] | | | Phosphatase | appended report. These | | [facility] | | | | results have been | | MEDICAL | | | | appended to a previously | | CENTER - | | | | preliminary verified | | LABORATORY | | | | report. | | | | + + + + + + | Globulin | 1.9 (L) | 2.1 - 3.8 g/dL | [facility] | | | | | | [facility] | | | | | | [facility] | | | | | | CENTER - | | | | | | LABORATORY | | + + + + + + | Albumin/Eliz | 1.7 | 0.8 - 2.0 | [facility] | | | bulin Ratio | | | [facility] | | | [facility] | [facility] | | | | | | [facility] - | | | | | | LABORATORY | | + + + + + + | BUN/Creatin | 15.1 | | [facility] | | | ine Ratio | | | [facility] | | | | | | [facility] | | | | | | [facility] - | | | | | | LABORATORY | | + + + + + + + + | Specimen | + + | Blood | + + + + + + + | Performing | Address | City/State/Zipcode | Phone Number | | Organization | | | | + + + + + | [facility] | [address] | [place] | [phone] | | [facility] | | [address] | | | - LABORATORY | | | | + + + + + CBC with Differential (04/09/2017 9:40 AM PDT) + + + + + + | Component | Value | Ref Range | Performed | Pathologist | | | | | At | Signature | + + + + + + | WBC | 9.5 | 4.0 - 11.0 K/uL | [facility] | | | | | | [facility] | | | | | | [facility] | | | | | | C[facility] - | | | | | | LABORATORY | | + + + + + + | RBC | 4.08 (L) | 4.30 - 5.70 | [facility] | | | | | M/uL | [facility] | | | | | | [facility] | | | | | | C[facility] - | | | | | | LABORATORY | | + + + + + + | Hemoglobin | 13.1 (L) | 13.5 - 18.0 | [facility] | | | | | g/dL | [facility] | | | | | | [facility]ICAL | | | | | | CENTER - | | | | | | LABORATORY | | + + + + + + | Hematocrit | 37.0 (L) | 40.0 - 51.0 % | [facility] | | | | | | [facility] | | | | | | [facility] | | | | | | C[facility] - | | | | | | LABORATORY | | + + + + + + | MCV | 90.6 | 83.0 - 101.0 fL | [facility] | | | | | | [facility] | | | | | | [facility] | | | | | | C[facility] - | | | | | | LABORATORY | | + + + + + + | MCH | 32.1 | 28.0 - 35.0 pg | [facility] | | | | | | [facility] | | | | | | [facility] | | | | | | CENTER - | | | | | | LABORATORY | | + + + + + + | MCHC | 35.5 | 32.0 - 36.0 | [facility] | | | | | g/dL | [facility] | | | | | | [facility]ICAL | | | | | | CENTER - | | | | | | LABORATORY | | + + + + + + | RDW-CV | 12.4 | <15.0 % | [facility] | | | | | | [facility] | | | | | | [facility] | | | | | | CENTER - | | | | | | LABORATORY | | + + + + + + | Platelet | 239 | 140 - 440 K/uL | [facility] | | | Count | | | [facility] | | | | | | [facility] | | | | | | CENTER - | | | | | | LABORATORY | | + + + + + + | MPV | 8.1 | fL | [facility] | | | | | | [facility] | | | | | | [facility] | | | | | | CENTER - | | | | | | LABORATORY | | + + + + + + | % | 80.9 | 45.0 - 82.0 % | [facility] | | | Neutrophils | | | [facility] | | | | | | MEDICAL | | | | | | CENTER - | | | | | | LABORATORY | | + + + + + + | % | 10.5 (L) | 20.0 - 45.0 % | [facility] | | | Lymphocytes | | | [facility] | | | | | | MEDICAL | | | | | | CENTER - | | | | | | LABORATORY | | + + + + + + | % Monocytes | 7.8 | 4.0 - 12.0 % | [facility] | | | | | | [facility] | | | | | | [facility] | | | | | | C[facility] - | | | | | | LABORATORY | | + + + + + + | % | 0.4 | 0.0 - 5.0 % | [facility] | | | Eosinophils | | | [facility] | | | | | | MEDICAL | | | | | | CENTER - | | | | | | LABORATORY | | + + + + + + | % Basophils | 0.4 | 0.0 - 1.0 % | [facility] | | | | | | [facility] | | | | | | [facility] | | | | | | CENTER - | | | | | | LABORATORY | | + + + + + + | Absolute | 7.70 | 1.80 - 8.50 | [facility] | | | Neutrophils | | K/uL | [facility] | | | | | | [facility]ICAL | | | | | | CENTER - | | | | | | LABORATORY | | + + + + + + | Absolute | 1.00 | 0.60 - 3.20 | [facility] | | | Lymphocytes | | K/uL | [facility] | | | | | | MEDICAL | | | | | | CENTER - | | | | | | LABORATORY | | + + + + + + | Absolute | 0.70 | 0.00 - 1.00 | [facility] | | | Monocytes | | K/uL | [facility] | | | | | | MEDICAL | | | | | | CENTER - | | | | | | LABORATORY | | + + + + + + | Absolute | 0.00 | 0.00 - 0.40 | [facility] | | | Eosinophils | | K/uL | [facility] | | | | | | MEDICAL | | | | | | CENTER - | | | | | | LABORATORY | | + + + + + + | Absolute | 0.00 | 0.00 - 0.10 | [facility] | | | Basophils | | K/uL | [facility] | | | | | | MEDICAL | | | | | | CENTER - | | | | | | LABORATORY | | + + + + + + + + | Specimen | + + | Blood | + + + + + + + | Performing | Address | City/State/Zipcode | Phone Number | | Organization | | | | + + + + + | [facility] | [address] | [place] | [phone] | | [facility] | | [address] | | | - LABORATORY | | | | + + + + + POCT Urinalysis Dipstick Automated (04/09/2017 9:38 AM PDT) + + + + + + | Component | Value | Ref Range | Performed | Pathologist | | | | | At | Signature | + + + + + + | Color, UA, | Yellow | Yellow, Light | | | | POC | | Yellow | | | + + + + + + | Clarity, | Clear | | | | | UA, POC | | | | | + + + + + + | Glucose, | 3+ (A) | Negative | | | | UA, POC | | | | | + + + + + + | Bilirubin, | Negative | Negative | | | | UA, POC | | | | | + + + + + + | Ketones, | Negative | Negative, 100 | | | | UA, POC | | mg/dL | | | + + + + + + | Specific | 1.010 | 1.001 - 1.030 | | | | [place], | | | | | | UA, POC | | | | | + + + + + + | Blood, UA, | Negative | Negative | | | | POC | | | | | + + + + + + | pH, UA, POC | 7.5 | 5.0, 6.0, 7.0, | | | | | | 8.0, 5.5, 6.5, | | | | | | 7.5 | | | + + + + + + | Protein, | Negative | Negative | | | | UA, POC | | | | | + + + + + + | Urobilinoge | 0.2 mg/dL | 0.2, Negative, | | | | n, UA, POC | | Normal, < 0.2 | | | | | | mg/dL, 1 mg/dL, | | | | | | < 0.2 E.U./dl, | | | | | | 1.0 E.U./dL, | | | | | | 0.2 mg/dL | | | + + + + + + | Nitrite, | Negative | Negative | | | | UA, POC | | | | | + + + + + + | Leukocyte | Negative | Negative | | | | Esterase, | | | | | | UA, POC | | | | | + + + + + + | Reducing | | | | | | Substances, | | | | | | Urine | | | | | + + + + + + | Bilirubin | | Negative | | | | Confirmatio | | | | | | n by | | | | | | Ictotest, | | | | | | Urine | | | | | + + + + + + | Remark | | | | | + + + + + + + + | Specimen | + + | Urine | + + POC Glucose (04/09/2017 9:23 AM PDT) + + + + + + | Component | Value | Ref Range | Performed | Pathologist | | | | | At | Signature | + + + + + + | Glucose, | >600 (HH) | 70 - 109 mg/dL | [facility] | | | POC | | | [facility] | | | | | | MEDICAL | | | | | | CENTER - | | | | | | LABORATORY | | + + + + + + + + | Specimen | + + | Blood | + + + + + + + | Performing | Address | City/State/Zipcode | Phone Number | | Organization | | | | + + + + + | [facility] | [address] | [place], [place] | [phone] | | [facility] | | [address] | | | - LABORATORY | | | | + + + + + documented in this encounter Visit Diagnoses + + | Diagnosis | + + | Hyperglycemia - Primary Other abnormal glucose | + + documented in this encounter Administered Medications + +--------+ +-------+------+------+ | Medication Order | MAR | Action | Dose | Rate | Site | | | Action | Date | | | | + +--------+ +-------+------+------+ | albuterol-ipratropium (DUONEB) | Given | 04/09/20 | 3 mLs | | | | 2.5-0.5 mg/3 mL nebulizer | | 17 9:32 | | | | | solution 3 mL 3 mL, | | AM PDT | | | | | Nebulization, RT Once, Wed | | | | | | | 04/09/17 at 0930, For 1 dose | | | | | | + +--------+ +-------+------+------+ +---+---+ | | | +---+---+ + +-------+ + +---+---+ | insulin regular (humuLIN R, | Given | 04/09/20 | 10 Units | | | | novoLIN R) injection 10 Units 10 | | 17 9:45 | | | | | Units, Intravenous, ONCE, Wed | | AM PDT | | | | | 04/09/17 at 0930, For 1 dose, | | | | | | | Only for use with U-100 insulin | | | | | | | syringe., | | | | | | + +-------+ + +---+---+ +---+---+ | | | +---+---+ + +-------+ +---------+---+---+ | insulin regular (humuLIN R, | Given | 04/09/20 | 5 Units | | | | novoLIN R) injection 5 Units 5 | | 17 10:58 | | | | | Units, Intravenous, ONCE, Wed | | AM PDT | | | | | 04/09/17 at 1035, For 1 dose, | | | | | | | Only for use with U-100 insulin | | | | | | | syringe., | | | | | | + +-------+ +---------+---+---+ +---+---+ | | | +---+---+ + +---------+ +--------+-------+---+ | sodium chloride 0.9% (NS) bolus | New Bag | 04/09/20 | 1,000 | 1000 | | | 1,000 mL 1,000 mL, Intravenous, | | 17 9:46 | mLs | mL/hr | | | Administer over 1 Hours, ONCE, | | AM PDT | | | | | 04/09/17 at 0930, For 1 dose | | | | | | + +---------+ +--------+-------+---+ +---+---+ | | | +---+---+ + +---------+ +--------+-------+---+ | sodium chloride 0.9% (NS) bolus | New Bag | 04/09/20 | 1,000 | 1000 | | | 1,000 mL 1,000 mL, Intravenous, | | 17 11:18 | mLs | mL/hr | | | Administer over 1 Hours, ONCE, | | AM PDT | | | | | 04/09/17 at 1115, For 1 dose | | | | | | + +---------+ +--------+-------+---+ +---+---+ | | | +---+---+ documented in this encounter
--- OUTSIDE RECORDS SUMMARY | ~2019-11-30 | XMS | Encounter Summary ---
Demographics + + + | Address | [address] | | | [place] [address] | + + + | Home Phone | | + + + | Preferred Language | Unknown | + + + | Marital Status | Single | + + + | Evangelical Affiliation | 1001 | + + + | Race | Unknown | + + + | Ethnic Group | Unknown | + + + Author + + + | Author | Located Within [facility] | | | and Ryana | + + + | Organization | Located Within [facility] | | [...] Team Providers + +------+ + | Care Manager Study Name | Role | Phone | + +------+ + | Shavon Covington | PCP | | + +------+ + Reason for Visit + + + | Reason | Comments | + + + | High Blood Sugar | | | (Symptomatic) | | + + + Encounter Details +--------+ + + + + | Date | Type | Department | Care Team | Description | +--------+ + + + + | 04/19/ | Emergency | [facility] | EdmundoShon, | Uncontrolled type 1 | | 2017 | | [facility] | [place] [address] [address] | diabetes mellitus | | | | CENTER [address] | [address] | with hyperglycemia | | | | [place], [place] | [place] [address] | ([facility]) (Primary Dx); | | | | [address] | [phone] | Type 2 diabetes | | | | [phone] | | mellitus without | | | | | | complication, with | | | | | | long-term current | | | | | | use of insulin | | | | | | ([facility]); Chest pain in | | | | | | adult; | | | | | | Non-intractable | | | | | | vomiting with | | | | | | nausea, unspecified | | | | | | vomiting type | +--------+ + + + + Social [...] + + + | Blood Pressure | 141/93 | 04/19/2017 11:26 AM | | | | | PDT | | + + + + + | Pulse | 86 | 04/19/2017 9:40 AM | | | | | PDT | | + + + + + | Temperature | 36.8 C (98.2 F) | 04/19/2017 9:04 AM | | | | | PDT | | + + + + + | Respiratory Rate | 16 | 04/19/2017 9:04 AM | | | | | PDT | | + + + + + | Oxygen Saturation | 98% | 04/19/2017 9:40 AM | | | | | PDT | | + + + + + | Inhaled Oxygen | - | - | | | Concentration | | | | + + + + + | Weight | 59 kg (130 lb) | 04/19/2017 9:04 AM | | | | | PDT | | + + + + + | Height | 177.8 cm (5' 10") | 04/19/2017 9:04 AM | | | | | PDT | | + + + + + | Body Mass Index | 18.65 | 04/19/2017 9:04 AM | | | | | PDT [...] as of this encounter Discharge Instructions Instructions Edmundo, Shon D, MD - 04/19/2017Get glucometer and resume checking your glucos e at least twice daily. Increase oral fluids when sugar is high documented in this encounter Medications at Time of Discharge + + + +---------+ + + | Medication | Sig | Dispensed | Refills | Start | End Date | | | | | | Date | | + + + +---------+ + + | albuterol 90 | Inhale 2 puffs into | | 0 | | | | mcg/puff inhaler | the lungs EVERY 4 TO | | | | | | | 6 HOURS NEEDED | | | | | | | for Wheezing. | | | | | + + [...] INFORMATION | KELLY | Routin | | 04/19/2017 8:49 AM | | EXCHANGE | | e | | PDT | + +------+--------+ + + documented as of this encounter Procedures + +--------+ + + + | Procedure Name | Priori | Date/Time | Associated Diagnosis | Comments | | | ty | | | | + +--------+ + + + | POC GLUCOSE | Routin | 04/19/2017 | | Results for this | | | e | 11:29 AM | | procedure are in the | | | | PDT | | results section. | + +--------+ + + + | BASIC METABOLIC | STAT | 04/19/2017 | | Results for this | | PANEL | | 11:29 AM | | procedure are in the | | | | PDT | | results section. | + +--------+ + + + | XR CHEST PA AND | STAT | 04/19/2017 | | Results for this | | LATERAL | | 10:07 AM | | procedure are in the | | | | PDT | | results section. | + +--------+ + + + | ECG 12 LEAD | STAT | 04/19/2017 | | Results for this | | | | 9:39 AM | | procedure are in the | | | | PDT | | results section. | + +--------+ + + + | EXTRA GOLD TOP TUBE | Routin | 04/19/2017 | | Results for this | | | e | 9:17 AM | | procedure are in the | | | | PDT | | results section. | + +--------+ + + + | EXTRA BLUE TOP TUBE | Routin | 04/19/2017 | | Results for this | | | e | 9:17 AM | | procedure are in the | | | | PDT | | results section. | + +--------+ + + + | BETA | STAT | 04/19/2017 | | Results for this | | HYDROXYBUTYRATE, | | 9:14 AM | | procedure are in the | | QUANT | | PDT | | results section. | + +--------+ + + + | CBC WITH | STAT | 04/19/2017 | | Results for this | | DIFFERENTIAL | | 9:14 AM | | procedure are in the | | | | PDT | | results section. | + +--------+ + + + | LIPASE | STAT | 04/19/2017 | | Results for this | | | | 9:14 AM | | procedure are in the | | | | PDT | | results section. | + +--------+ + + + | COMPREHENSIVE | STAT | 04/19/2017 | | Results for this | | METABOLIC PANEL | | 9:14 AM | | procedure are in the | | | | PDT | | results section. | + +--------+ + + + | POC GLUCOSE | Routin | 04/19/2017 | | Results for this | | | e | 9:01 AM | | procedure are in the | | | | PDT | | results section. | + +--------+ + + + | ED INFORMATION | Routin | 04/19/2017 | | | | EXCHANGE | e | 8:49 AM | | | | | | PDT | | | + +--------+ + + + +---+--------+ | | | | | Proced | | | ure | | | Note - | | | Scottie, | | | Lab In | | | | | | Hlseve | | | n - | | | 10/ | | | 2017 | | | 8:50 | | | AM PDT | | [...] | | | ON?10/ | | | 28/ | | | 7 | | | 08:45? | | | VU | | | , | | | BENJAM | | | IN | | | J?MRN: | | | | | | [id number] | | | [id number] | | | his | | | [...] | | | from | | | [facility] | [facility] | | | Hospit | | | alLast | | | | | | Update | | | d: | | | 04/10/ | | | 17 | | | 2:36 | | | PM | | | Care | | | Coordi | | | nation | | | :PATIE | | | NT IS | | | CURREN | | | TLY | | | SEEING | | | MELINDA | | | JEFFER | | | IES AT | | | | | | [facility] | | | YS | | | MENTAL | | | | | | HEALTH | | | ([phone] | | [phone] | | | 7).? | | | CONTAC | | | T THEM | | | IF | | | PATIEN | | | T?HAS? | | | | | | SOCIAL | | | OR | | | MENTAL | | | ISSUE | | | | | | NEEDS. | | | ?These | | | [...] | | | ing | | | care.R | | | ecent | | | Emerge | | | [...] | | | Oct | | | 28, | | | 2017 | | | [facility] | | | ence | | | [facility] | | [facility] | [place] | | | [place] | | | Emerge | | | ncy | | | Emerge | | | ncy | | | | | | stomac | | | h pain | | | Oct | | | 27, | | | 2017 | | | [facility] | | | ence | | | [facility] | | | [facility] | | [place] | | | [place] | | | Emerge | | | ncy | | | Emerge | | | ncy | | | | | | Diabet | | | ic | | | compla | | | int | | | [...] | | | ms | | | Cold-l | | | laya | | | Sympto | | | ms | | | Elevat | | | ed | | | Blood | | | Sugar | | | (Sympt | | | omatic | | | ) | | | Hyperg | | | lycemi | | | a, | | | unspec | | | ified | | | Oct | | | 12, | | | 2017 | | | [facility] | [facility] | | | y H. | | [...] | | | St. | | | [facility] | | | y H. | | [...] | | | St. | | | [facility] | | | y H. | | [...] | | | St. | | | [facility] | | | y H. | | [...] | | | St. | | | [facility] | | | y H. | | [...] | | | Center | | | 7 0 | | | [facility] | | | y | | | Hospit | | | al 11 | | | 0 | | | Total | | | 18 0 | | | Note: | | [...] | | | report | | | .[!] | | | Patien | | | t is | | | on | | | Washin | | | gton | | | [facility] | | | vider | | | PRC | | | Type | | | Phone | | | Servic | | | e | | | Dates | | | MELINDA | | | JEFFER | | | IES, | | | CM | | | Lock | | | In | | | [phone] | | | [phone] | | | 07 | | | [phone] | | | [phone] | | | 28 | | | Curren | | | t If | | | this | | | client | | | is | | | seen | | | in | | | your | | | facili | | | ty, | | | please | | | | | | notify | | | the | | | client | | | 's PCP | | | | | | and/or | | | refer | | | the | | | client | | | back | | | to | | | their | | | PCP | | | for | | | approp | | | riate | | | follow | | | -up | | | and | | | manage | | | ment | | | of | | | care. | | | If you | | | have | | | any | | | questi | | | ons or | | | | | | concer | | | ns | | | about | | | the | | | client | | | or | | | the | | | PRC | | | progra | | | m, | | | please | | | feel | | | free | | | to | | | contac | | | t us | | | at | | | [phone] | | [phone] | | | [phone] | | | ext. | | | [phone] | | | or go | | | to the | | | PRC | | | websit | | | e at | | | http:/ | | | [email or web address]. | | | [email or web address] | | | a.gov/ | | | PRR/ | | | for | | | more | | | inform | | | ation. | | | | | | Additi | | | onal | | | Care | | | Provid | | | [...] | | ia met | | | Care | | | | | | Guidel | | | mayela | | | PRC 4 | | | | | | visits [...] documented in this encounter Results POC Glucose (04/19/2017 11:29 AM PDT) + +---------+ + + + | Component | Value | Ref Range | Performed | Pathologist | | | | | At | Signature | + +---------+ + + + | Glucose, | 542 (H) | 70 - 109 mg/dL | [facility] | | | POC | | | [...] | + + + + + | [facility] | [address] | [place] | [phone] | | [facility] | | [address] | | | - LABORATORY | | | | + + + + + Basic Metabolic Panel (04/19/2017 11:29 AM PDT) + + + + + + | Component | Value | Ref Range | Performed | Pathologist | | | | | At | Signature | + + + + + + | Na | 131 (L) | 136 - 149 | [facility] | | | | | mmol/L | [facility] | | | | | | MEDICAL | | | | | | CENTER - | | | | | | LABORATORY | | + + + + + + | K | 4.1 | 3.5 - 5.1 | [facility] | | | | | mmol/L | [facility] | | | | | | MEDICAL | | | | | | CENTER - | | | | | | LABORATORY | | + + + + + + | Cl | 101 | 98 - 109 mmol/L | [facility] | | | | | | [facility] | | | | | | MEDICAL | | | | | | CENTER - | | | | | | LABORATORY | | + + + + + + | CO2 | 25 | 24 - 31 mmol/L | [facility] | | | | | | [facility] | | | | | | MEDICAL | | | | | | CENTER - | | | | | | LABORATORY | | + + + + + + | Anion Gap | 5 | 3 - 16 mmol/L | [facility] | | | | | | [facility] | | | | | | MEDICAL | | | | | | CENTER - | | | | | | LABORATORY | | + + + + + + | Glucose | 515 (H) | 70 - 109 mg/dL | [facility] | | | | | | [facility] | | | | | | MEDICAL | | | | | | CENTER - | | | | | | LABORATORY | | + + + + + + | BUN | 14 | 7 - 18 mg/dL | [facility] | | | | | | [facility] | | | | | | MEDICAL | | | | | | CENTER - | | | | | | LABORATORY | | + + + + + + | Creatinine | 0.84 | 0.60 - 1.30 | [facility] | | | | | mg/dL | [facility] | | | | | | MEDICAL | | | | | | CENTER - | | | | | | LABORATORY | | + + + + + + | eGFR if not | >60Comment: GLOMERULAR | >=60 | [facility] | | | | FILTRATION | mL/min/1.73m2 | [facility] | | | MALAGASY | RATE,ESTIMATED | | MEDICAL | | | | mL/min/1.72b6Kkgi than | | CENTER - | | [...] | | | | mg/dL | [facility] | | | | | | MEDICAL | | | | | | CENTER - | | | | | | LABORATORY | | + + + + + + | BUN/Creatin | 16.7 | | [facility] | | | ine Ratio | | | [facility] | | [...] + + | [facility] | [address] | [place] | [phone] | | [facility] | | [address] | | | - LABORATORY | | | | + + + + + XR Chest PA and Lateral (04/19/2017 10:07 AM PDT) + + | Specimen | + + | | + + + + + | Narrative | Performed At | + + + | EXAM: XR CHEST PA AND LATERAL dated 04/19/2017 9:22 AM HISTORY: | [facility] | | Chest pain Comparison: April 09, 2017 TECHNIQUE: Frontal and | | | lateral views of the chest. FINDINGS: The lungs are | | | symmetrically aerated. They are clear. There are no pleural | | | effusions. There is no pneumothorax. The cardiac and mediastinal | | | contours are not enlarged. The visible osseous structures are | | | unremarkable. IMPRESSION - No radiographic evidence for | | | acute disease in the chest. Dictated and Signed by: Dean Portillo | | | MD Goyo Electronically signed: 04/19/2017 10:09 AM | | + + + + + | Procedure Note | + + | Scottie, Rad Results In - 04/19/2017 10:12 AM PDT EXAM: XR CHEST PA AND LATERAL dated | | 04/19/2017 9:22 AMHISTORY: Chest painComparison: April 09, 2017TECHNIQUE: Frontal and | | lateral views of the chest.FINDINGS:The lungs are symmetrically aerated. They are | | clear. There are no pleuraleffusions. There is no pneumothorax. The cardiac and | | mediastinal contours arenot enlarged. The visible osseous structures are unremarkable. | | IMPRESSION -No radiographic evidence for acute disease in the chest. Dictated and | | Signed by: Dean Nance MD Electronically signed: 04/19/2017 10:09 AM | | | |FINDINGS: | |The lungs are symmetrically aerated. They are clear. There are no pleural | |effusions. There is no pneumothorax. The cardiac and mediastinal contours are | |not enlarged. The visible osseous structures are unremarkable. | | | |IMPRESSION - | | | |No radiographic evidence for acute disease in the chest. | | | |Dictated and Signed by: Dean Nance MD | | Electronically signed: 04/19/2017 10:09 AM | + + + +---------+ + + | Performing | Address | City/State/Zipcode | Phone Number | | Organization | | | | + +---------+ + + | [facility] | | | | + +---------+ + + ECG 12 lead (04/19/2017 9:39 AM PDT) + + + + + + | Component | Value | Ref Range | Performed | Pathologist | | | | | At | Signature | + + + + + + | VENTRICULAR | 82 | BPM | [facility] | | | RATE EKG | | | | | + + + + + + | ATRIAL RATE | 82 | BPM | [facility] | | + + + + + + | P-R | 162 | ms | [facility] | | | INTERVAL | | | | | + + + + + + | QRS | 76 | ms | [facility] | | | DURATION | | | | | + + + + + + | Q-T | 348 | ms | [facility] | | | INTERVAL | | | | | + + + + + + | Q-T | 406 | ms | [facility] | | | INTERVAL | | | | | | (CORRECTED) | | | | | + + + + + + | P WAVE AXIS | 45 | degrees | [facility] | | + + + + + + | QRS AXIS | 73 | degrees | [facility] | | + + + + + + | T AXIS | 54 | degrees | [facility] | | + + + + + + | INTERPRETAT | Normal sinus | | [facility] | | | ION TEXT | rhythmProbable normal | | | | | | early repolarization | | | | | | pattern though | | | | | | ischemia/infarction/ramiro | | | | | | carditis cannot be | | | | | | excluded.When compared | | | | | | with ECG of 03-OCT-2016 | | | | | | 04:11,Vent. rate has | | | | | | decreased BY 45 | | | | | | BPMConfirmed by CARYN | | | | | | HAWA THORPE ([id number]) on | | | | | | 04/20/2017 3:57:06 PM | | | | + + + + + + + + | Specimen | + + | | + + + + + | Narrative | Performed At | + + + | | | + + + + +---------+ + + | Performing | Address | City/State/Zipcode | Phone Number | | Organization | | | | + +---------+ + + | [facility] | | | | + +---------+ + + Extra Blue Top Tube (04/19/2017 9:17 AM PDT) + +-------+ + + + | Component | Value | Ref Range | Performed | Pathologist | | | | | At | Signature | + +-------+ + + + | Extra Blue | Done | | [facility] | | | Top Tube | | | [facility] | | [...] ST. | [address] | [place] | [phone] | | [facility] | | [address] | | | - LABORATORY | | | | + + + + + Extra Gold Top Tube (04/19/2017 9:17 AM PDT) + +-------+ + + + | Component | Value | Ref Range | Performed | Pathologist | | | | | At | Signature | + +-------+ + + + | Extra Gold | Done | | [facility] | | | Top Tube | | | [facility] | | [...] + | [facility] | [address] | [place] | [phone] | | [facility] | | [address] | | | - LABORATORY | | | | + + + + + Lipase (04/19/2017 9:14 AM PDT) + +-------+ + + + | Component | Value | Ref Range | Performed | Pathologist | | | | | At | Signature | + +-------+ + + + | Lipase | 24 | 0 - 60 U/L | [facility] [...] + | [facility] | [address] | [place] | [phone] | | [facility] | | [address] | | | - LABORATORY | | | | + + + + + Beta Hydroxybutyrate, Quant (04/19/2017 9:14 AM PDT) + + + + + + | Component | Value | Ref Range | Performed | Pathologist | | | | | At | Signature | + + + + + + | Beta | 2.65 (H) | 0.02 - 0.27 | [facility] | | | Hydroxybuty | | mmol/L | [facility] | | | rate | | | [...] ST. | [address] | [place], [place] | [phone] | | [facility] | | [address] | | | - LABORATORY | | | | + + + + + Comprehensive Metabolic Panel (04/19/2017 9:14 AM PDT) + + + + + + | Component | Value | Ref Range | Performed | Pathologist | | | | | At | Signature | + + + + + + | Na | 127 (L) | 136 - 149 | [facility] | | | | | mmol/L | [facility] | | | | | | MEDICAL | | | | | | CENTER - | | | | | | LABORATORY | | + + + + + + | K | 5.1 | 3.5 - 5.1 | [facility] | | | | | mmol/L | [facility] | | | | | | MEDICAL | | | | | | CENTER - | | | | | | LABORATORY | | + + + + + + | Cl | 92 (L) | 98 - 109 mmol/L | [facility] | | | | | | [facility] | | | | | | MEDICAL | | | | | | CENTER - | | | | | | LABORATORY | | + + + + + + | CO2 | 24 | 24 - 31 mmol/L | [facility] | | | | | | [facility] | | | | | | MEDICAL | | | | | | CENTER - | | | | | | LABORATORY | | + + + + + + | Anion Gap | 11 | 3 - 16 mmol/L | [facility] | | | | | | [facility] | | | | | | MEDICAL | | | | | | CENTER - | | | | | | LABORATORY | | + + + + + + | Glucose | 794 ()Comment: | 70 - 109 mg/dL | [facility] | | | | Critical Result called | | [facility] | | | | to and read back by | | MEDICAL | | | | Yessi Mckeon RN on | | CENTER - | | | | 04/19/2017 at 9:56 by | | LABORATORY | | | | Leigh Simmons. | | | | + + + + + + | BUN | 14 | 7 - 18 mg/dL | [facility] | | | | | | [facility] | | | | | | MEDICAL | | | | | | CENTER - | | | | | | LABORATORY | | + + + + + + | Creatinine | 1.10 | 0.60 - 1.30 | [facility] | | | | | mg/dL | [facility] | | | | | | MEDICAL | | | | | | CENTER - | | | | | | LABORATORY | | + + + + + + | eGFR if not | >60Comment: GLOMERULAR | >=60 | [facility] | | | | FILTRATION | mL/min/1.73m2 | [facility] | | | MALAGASY | RATE,ESTIMATED | | MEDICAL | | | | mL/min/1.23u8Gxxl than | | CENTER - | | [...] + + + + | Calcium | 9.1 | 8.3 - 10.5 | [facility] | | | | | mg/dL | [facility] | | | | | | MEDICAL | | | | | | CENTER - | | | | | | LABORATORY | | + + + + + + | Albumin | 3.5 | 3.2 - 5.0 g/dL | [facility] | | | | | | [facility] | | | | | | MEDICAL | | | | | | CENTER - | | | | | | LABORATORY | | + + + + + + | Bilirubin | 1.2Comment: This is an | 0.1 - 1.5 [...] + + + + | Total | 5.4 (L) | 6.0 - 7.8 g/dL | [facility] | | | Protein | | | [facility] | | | | | | MEDICAL | | | | | | CENTER - | | | | | | LABORATORY | | + + + + + + | AST | 25Comment: This is an | 10 - 42 [...] + + + + | ALT | 23Comment: This is an | 6 - 45 [...] + + + + | Alkaline | 87Comment: This is an | 40 - 110 U/L | [facility] | | | Phosphatase | appended report. These | | [facility] | | | | results have been [...] + + + + | Albumin/Eliz | 1.8 | 0.8 - 2.0 | [facility] | | | bulin Ratio | | | [facility] | | | | | | MEDICAL | | | | | | CENTER - | | | | | | LABORATORY | | + + + + + + | BUN/Creatin | 12.7 | | [facility] | | | ine Ratio | | | [facility] | | [...] ST. | [address] | [place] | [phone] | | [facility] | | [address] | | | - LABORATORY | | | | + + + + + CBC with Differential (04/19/2017 9:14 AM PDT) + + + + + + | Component | Value | Ref Range | Performed | Pathologist | | | | | At | Signature | + + + + + + | WBC | 4.3 | 4.0 - 11.0 K/uL | [facility] | | | | | | [facility] | | | | | | MEDICAL | | | | | | CENTER - | | | | | | LABORATORY | | + + + + + + | RBC | 4.16 (L) | 4.30 - 5.70 | [facility] | | | | | M/uL | [facility] | | | | | | MEDICAL | | | | | | CENTER - | | | | | | LABORATORY | | + + + + + + | Hemoglobin | 13.6 | 13.5 - 18.0 | [facility] | | | | | g/dL | [facility] | | | | | | MEDICAL | | | | | | CENTER - | | | | | | LABORATORY | | + + + + + + | Hematocrit | 39.3 (L) | 40.0 - 51.0 % | [facility] | | | | | | [facility] | | | | | | MEDICAL | | | | | | CENTER - | | | | | | LABORATORY | | + + + + + + | MCV | 94.5 | 83.0 - 101.0 fL | [facility] | | | | | | [facility] | | | | | | MEDICAL | | | | | | CENTER - | | | | | | LABORATORY | | + + + + + + | MCH | 32.8 | 28.0 - 35.0 pg | [facility] | | | | | | [facility] | | | | | | MEDICAL | | | | | | CENTER - | | | | | | LABORATORY | | + + + + + + | MCHC | 34.7 | 32.0 - 36.0 | [facility] | | | | | g/dL | [facility] | | | | | | MEDICAL | | | | | | CENTER - | | | | | | LABORATORY | | + + + + + + | RDW-CV | 13.4 | <15.0 % | [facility] | | | | | | [facility] | | | | | | MEDICAL | | | | | | CENTER - | | | | | | LABORATORY | | + + + + + + | Platelet | 194 | 140 - 440 K/uL | [facility] | | | Count | | | [facility] | | | | | | MEDICAL | | | | | | CENTER - | | | | | | LABORATORY | | + + + + + + | MPV | 8.4 | fL | [facility] | | | | | | [facility] | | | | | | MEDICAL | | | | | | CENTER - | | | | | | LABORATORY | | + + + + + + | % | 73.0 | 45.0 - 82.0 % | [facility] | | | Neutrophils | | | [facility] | | | | | | MEDICAL | | | | | | CENTER - | | | | | | LABORATORY | | + + + + + + | % | 16.9 (L) | 20.0 - 45.0 % | [facility] | | | Lymphocytes | | | [facility] | | | | | | MEDICAL | | | | | | CENTER - | | | | | | LABORATORY | | + + + + + + | % Monocytes | 6.4 | 4.0 - 12.0 % | [facility] | | | | | | [facility] | | | | | | MEDICAL | | | | | | CENTER - | | | | | | LABORATORY | | + + + + + + | % | 2.6 | 0.0 - 5.0 % | [facility] | | | Eosinophils | | | [facility] | | | | | | MEDICAL | | | | | | CENTER - | | | | | | LABORATORY | | + + + + + + | % Basophils | 1.1 (H) | 0.0 - 1.0 % | [facility] | | | | | | [facility] | | | | | | MEDICAL | | | | | | CENTER - | | | | | | LABORATORY | | + + + + + + | Absolute | 3.10 | 1.80 - 8.50 | [facility] | | | Neutrophils | | K/uL | [facility] | | | | | | MEDICAL | | | | | | CENTER - | | | | | | LABORATORY | | + + + + + + | Absolute | 0.70 | 0.60 - 3.20 | [facility] | | | Lymphocytes | | K/uL | [facility] | | | | | | MEDICAL | | | | | | CENTER - | | | | | | LABORATORY | | + + + + + + | Absolute | 0.30 | 0.00 - 1.00 | [facility] | | | Monocytes | | [facility] | [facility] | | | | | | [facility] | | | | | | CENTER - | | | | | | LABORATORY | | + + + + + + | Absolute | 0.10 | 0.00 - 0.40 | [facility] | [...] [address] | [place] | [phone] | | [facility] | | [id number] | | | - LABORATORY | | | | + + + + + POC Glucose (04/19/2017 9:01 AM PDT) + + + + + [...] + | [facility] | [address] | [place] | [phone] | | [facility] | | [address] | | | - LABORATORY | | | | + + + + + documented in this encounter Visit Diagnoses + + | Diagnosis | + + | Uncontrolled type 1 diabetes mellitus with hyperglycemia (HCC) - Primary | + + | Type 2 diabetes mellitus without complication, with long-term current use of insulin | | (HCC) | + + | Chest pain in adult | + + | Non-intractable vomiting with nausea, unspecified vomiting type | + + documented in this encounter Administered Medications + +--------+ + +------+ + | Medication Order | MAR | Action | Dose | Rate | Site | | | Action | Date | | | | + +--------+ + +------+ + | insulin regular (humuLIN R, | Given | 04/19/20 | 10 Units | | Abdomen- | | novoLIN R) injection 10 Units 10 | | 17 10:18 | | | RUQ | | Units, Subcutaneous, ONCE, Sat | | AM PDT | | | | | 04/19/17 at 1010, For 1 dose, | | | | | | | Only for use with U-100 insulin | | | | | | | syringe., | | | | | | + +--------+ + +------+ + +---+---+ | | | +---+---+ + +---------+ +--------+-------+---+ | lactated ringers (LR) bolus | New Bag | 04/19/20 | 1,000 | 1000 | | | 1,000 mL 1,000 mL, Intravenous, | | 17 11:44 | mLs | mL/hr | | | Administer over 1 Hours, ONCE, | | AM PDT | | | | | 04/19/17 at 1140, For 1 dose | | | | | | + +---------+ +--------+-------+---+ +---+---+ | | | +---+---+ + +-------+ +------+---+---+ | ondansetron (ZOFRAN) injection | Given | 04/19/20 | 4 mg | | | | 4 mg 4 mg, Intravenous, EVERY 1 | | 17 9:22 | | | | | HOUR PRN, Nausea, Vomiting, | | AM PDT | | | | | Starting 04/19/17 at 0906, | | | | | | | For 2 doses | | | | | | + +-------+ +------+---+---+ +---+---+ | | | +---+---+ + +---------+ +--------+-------+---+ | sodium chloride 0.9% (NS) bolus | New Bag | 04/19/20 | 1,000 | 1000 | | | 1,000 mL 1,000 mL, Intravenous, | | 17 9:16 | mLs | mL/hr | | | Administer over 1 Hours, ONCE, | | AM PDT | | | | | 04/19/17 at 0910, For 1 dose | | | | | | + +---------+ +--------+-------+---+ +---+---+ | | | +---+---+ + +---------+ +--------+-------+---+ | sodium chloride 0.9% (NS) bolus | New Bag | 04/19/20 | 1,000 | 1000 | | | 1,000 mL 1,000 mL, Intravenous, | | 17 10:21 | mLs | mL/hr | | | Administer over 1 Hours, ONCE, | | AM PDT | | | | | 04/19/17 at 1020, For 1 dose | | | | | | + +---------+ +--------+-------+---+ +---+---+ | | | +---+---+ documented in this encounter
--- OUTSIDE RECORDS SUMMARY | ~2019-11-30 | XMS | Encounter Summary ---
Demographics + + + | Address | [address] | | | [place] [address] | + + + | Home Phone | | + + + | Preferred Language | Unknown | + + + | Marital Status | Single | + + + | Cheondoism Affiliation | 1001 | + + + | Race | Unknown | + + + | Ethnic Group | Unknown | + + + Author + + + | Author | [facility] | | | and Ryana | + + + | Organization | [facility] | | | [...] Team Providers + +------+ + | Care Almond Paste Mixer Name | Role | Phone | + +------+ + PCP | Unavailable | + +------+ + Encounter Details +--------+ + + + + | Date | Type | Department | Care Team | Description | +--------+ + + + + | 04/06/ | [facility] | [place] | Abhi Berger | | | 2003 | Encounter | FAMILY MEDICINE 120 | MD [address] | | | | | [place] | [place], [place] | | | | | [place] [address] | [address] | | | | | [phone] | | | +--------+ + + + [...]
--- OUTSIDE RECORDS SUMMARY | ~2019-11-30 | XMS | Encounter Summary ---
Demographics + + + | Address | [address] | | | [place] [address] | + + + | Home Phone | | + + + | Preferred Language | Unknown | + + + | Marital Status | Single | + + + | Taoist Affiliation | 1001 | + + + | Race | Unknown | + + + | Ethnic Group | Unknown | + + + Author + + + | Author | [facility] | | | and Ryana | + + + | Organization | [facility] | | | [...] Team Providers + +------+ + | Care Soot Blower Name | Role | Phone | + +------+ + PCP | Unavailable | + +------+ + Encounter Details +--------+ + + + + | Date | Type | Department | Care Team | Description | +--------+ + + + + | 04/06/ | [facility] | [place] | Abhi Berger | | | 2003 | Encounter | FAMILY MEDICINE 120 | MD [address] | | | | | [place] | [place], [place] | | | | | [place] [address] | [address] | | | | | [phone] | | | +--------+ + + + [...]
--- OUTSIDE RECORDS SUMMARY | ~2019-11-30 | XMS | Encounter Summary ---
Demographics + + + | Address | [address] | | | [place] [address] | + + + | Home Phone | | + + + | Preferred Language | Unknown | + + + | Marital Status | Single | + + + | Sikhism Affiliation | 1001 | + + + | Race | Unknown | + + + | Ethnic Group | Unknown | + + + Author + + + | Author | [facility] | | | and Ryana | + + + | Organization | [facility] | | | [...] Team Providers + +------+ + | Care Numerical Control Machine Tool Operator Name | Role | Phone | + +------+ + PCP | Unavailable | + +------+ + Encounter Details +--------+ + + + + | Date | Type | Department | Care Team | Description | +--------+ + + + + | 12/18/ | Hospital | [facility] | Mohsen Carranza | | | 1999 | Encounter | [facility] [address] Need updated | | | | | [place] | address | | | | | [address] | | | | | | [phone] | | | +--------+ + + + [...]
--- OUTSIDE RECORDS SUMMARY | ~2019-11-30 | XMS | Encounter Summary ---
Demographics + + + | Address | [address] | | | [place] [address] | + + + | Home Phone | | + + + | Preferred Language | Unknown | + + + | Marital Status | Single | + + + | Latter-Day Affiliation | 1001 | + + + | Race | Unknown | + + + | Ethnic Group | Unknown | + + + Author + + + | Author | [facility] | | | and Ryana | + + + | Organization | [facility] | | | [...] Team Providers + +------+ + | Care Plaster Whittler Name | Role | Phone | + [...] Provider Unknown | | | | | [place], [place] | | | | | | [address] | (Fax) | | | | | | | [...] Note | + + | Foreign Carl Conversion - 02/04/2019 7:45 PM PDT This is a non-reportable procedure | | without a radiologist report and isused for image storage only | + + documented in this encounter Visit Diagnoses + + | Diagnosis | + + | Unknown cause of injury Unspecified accident | + + documented in this encounter"
--- OUTSIDE RECORDS SUMMARY | ~2019-11-30 | XMS | Encounter Summary ---
Demographics + + + | Address | [address] | | | [place] [address] | + + + | Home Phone [...] + + + | Author | [facility] | | | and Ryana | + + + | Organization | [facility] | | | [...] Team Providers + +------+ + | Care Snack Foods Mixer Operator Name | Role | Phone | + +------+ + | Shavon Covington | PCP | | + +------+ + Reason for Visit Auth/Cert +--------+--------+ + + + + | Status | Reason | Specialty | Diagnoses / | Referred By | Referred To | | | | | Procedures | Contact | Contact | +--------+--------+ + + + + | | | | Diagnoses | | | | | | | | | | | | | | Hyperkalemia | | | | | | | Acute | | | | | | | hyperkalemia | | | | | | | | | | | | | | Noncomplianc | | | | | | | e with | | | | | | | medication | | | | | | | regimen | | | | | | | Nausea and | | | | | | | vomiting in | | | | | | | adult Acute | | | | | | | kidney | | | | | | | injury (HCC) | | | | | | | High anion | | | | | | | gap | | | | | | | metabolic | | | | | | | acidosis | | | | | | | Tobacco | | | | | | | smoker | | | | | | | within last | | | | | | | 12 months | | | | | | | Schizophreni | | | | | | | a, | | | | | | | unspecified | | | | | | | type (HCC) | | | | | | | Acute renal | | | | | | | failure, | | | | | | | unspecified | | | | | | | acute renal | | | | | | | failure type | | | | | | | (HCC) | | | | | [...] | | | | | | | (HCC) | | | | | | | Sensation of | | | | | | | chest | | | | | | | tightness | | | | | | | | | | | | | | | | | +--------+--------+ + + + + Encounter Details +--------+ + + + + | Date | Type | Department | Care Team | Description | +--------+ + + + + | 10/03/ | Emergency | [facility] | | | | 2016 | | [facility] | | | | | CENTER [address] | | | | | | [place] | | | | | | [address] | | | | | | [phone] | | | +--------+ + + + [...] + + documented as of this encounter Functional Status + + + + | Functional Status | Response | Date of Assessment | + + + + | Are you deaf or do you have serious | No | 06/21/2016 | | difficulty hearing? | | | + + + + | Are you blind or do you have serious | No | 06/21/2016 | | difficulty seeing, even when wearing | | | | glasses? | | | + + + + | Do you have serious difficulty walking or | No | 06/21/2016 | | climbing stairs? (5 years old or older) | | | + + + + | Do you have difficulty dressing or bathing? | No | 06/21/2016 | | (5 years old or older) | | | + + + + | Because of a physical, mental, or emotional | No | 06/21/2016 | | condition, do you have difficulty [...] physical, mental, or emotional | No | 06/21/2016 | | condition, do you have serious difficulty | | | | concentrating, remembering, or making | | | | decisions? (5 years old or older) | | | + + + + documented as of this encounter Medications at Time of Discharge [...] + | POC GLUCOSE | Routin | 10/03/2016 | | Results for this | | | e | 3:57 AM | | procedure are in the | | | | PDT | | results section. | + +--------+ + + + documented in this encounter Results POC Glucose (10/03/2016 3:57 AM PDT) + + + + + + | Component | Value | Ref Range | Performed | Pathologist | | | | | At | Signature | + + + + + + | Glucose, | >600 (HH) | 70 - 150 mg/dL | [facility] | | | POC [...] + + + + + | [facility] | [address] | [place] | [phone] | | [facility] | | [address] | | | - LABORATORY | | | | + + + + + documented in this encounter Visit Diagnoses Not on filedocumented in this encounter"
--- OUTSIDE RECORDS SUMMARY | ~2019-11-30 | XMS | Encounter Summary ---
Demographics + + + | Address | [address] | | | [place] [address] | + + + | Home Phone | | + + + | Preferred Language | Unknown | + + + | Marital Status | Single | + + + | Quaker Affiliation | 1001 | + + + | Race | Unknown | + + + | Ethnic Group | Unknown | + + + Author + + + | Author | [facility] | | | and Ryana | + + + | Organization | [facility] | | | [...] Team Providers + +------+ + | Care Ferryboat Captain Name | Role | Phone | + +------+ + | Shavon Covington | PCP | | + +------+ + Reason for Visit + + + | Reason | Comments | + + + | Back Pain | | + + + | Back Swelling | | + + + | Leg Swelling | | + + + Encounter Details +--------+ + + + + | Date | Type | Department | Care Team | Description | +--------+ + + + + | 09/23/ | [facility] | [facility] | Adi Castro | Hyperglycemia | | 2017 - | | [facility] | Alexander Craig MD | (Primary Dx); | | | | CENTER [address] | [address] | Genital edema, male | | 09/24/ | | [place], [place] | [place], [place] | | | 2016 | | [address] | [address] | | | | | [phone] | | | +--------+ + + + [...] + + + | Blood Pressure | 114/79 | 09/24/2016 12:13 AM | | | | | PDT | | + + + + + | Pulse | 95 | 09/23/2016 10:17 PM | | | | | PDT | | + + + + + | Temperature | 36.3 C (97.3 F) | 09/23/2016 10:17 PM | | | | | PDT | | + + + + + | Respiratory Rate | 14 | 09/23/2016 10:17 PM | | | | | PDT | | + + + + + | Oxygen Saturation | 100% | 09/23/2016 10:17 PM | | | | | PDT | | + + + + + | Inhaled Oxygen | - | - | | | Concentration | | | | + + + + + | Weight | 53.5 kg (118 lb) | 09/23/2016 10:17 PM | | | | | PDT | | + + + + + | Height | 175.3 cm (5' 9") | 09/23/2016 10:17 PM | | | | | PDT | | + + + + + | Body Mass Index | 17.43 | 09/23/2016 10:17 PM | | | | | PDT [...] Discharge Instructions Instructions Adi Castro MD - 09/24/2016Return for severe worsening sympto ms. Please follow-up to primary care physician. Take insulin as previously prescribed. documented in this encounter Medications at Time of Discharge + + + +---------+ + + | Medication | Sig | Dispensed | Refills | Start | End Date | | | | | | Date | | + + + +---------+ + + | aspirin 81 mg | Take 81 mg by mouth | | 0 | | | | chewable tablet | Daily. | | | | 7 | + + + +---------+ + + | atoMOXetine | Take 100 mg by mouth | | 0 | | | | (STRATTERA) 100 MG | every morning. | | | | 7 | | capsule | | | | | | + + + +---------+ + + | | Take 1 capsule by | | 0 | | | | VQ-Wvoxbffpfpdfj-Lsx | mouth Daily as | | | | 7 | | taminophen 10-5-325 | needed (for sinus | | | | | | MG CAPS | congestion). | | | | | + + + +---------+ + + | | Take 1-2 tablets by | 15 | 0 | 09/25/19 | | | HYDROcodone-acetamin | mouth every 6 hours | tablet | | 17 | 7 | | ophen (NORCO) 5-325 | as needed for Pain. | | | | | | mg per tablet | | | | | | + + + +---------+ + + | insulin glargine | Inject 9 Units under | | 0 | | | | (LANTUS) 100 | the skin 2 times | | | | 7 | | units/mL injection | daily. | | | | | | (vial) | | | | | | + + + +---------+ + + | insulin lispro | Inject 2 Units under | | 0 | | | | (HUMALOG) 100 | the skin 3 times | | | | 7 | | units/mL injection | daily (before | | | | | | (cartridge) | meals). Plus sliding | | | | | | | scale. | | | | | + + + +---------+ + + documented as of this encounter Plan of Treatment Not on filedocumented as of this encounter Procedures + +--------+ + + + | Procedure Name | Priori | Date/Time | Associated Diagnosis | Comments | | | ty | | | | + +--------+ + + + | POC GLUCOSE | Routin | 09/24/2016 | | Results for this | | | e | 12:53 AM | | procedure are in the | | | | PDT | | results section. | + +--------+ + + + | BETA | STAT | 09/23/2016 | | Results for this | | HYDROXYBUTYRATE, | | 10:45 PM | | procedure are in the | | QUANT | | PDT | | results section. | + +--------+ + + + | EXTRA GOLD TOP TUBE | Routin | 09/23/2016 | | Results for this | | | e | 10:45 PM | | procedure are in the | | | | PDT | | results section. | + +--------+ + + + | EXTRA BLUE TOP TUBE | Routin | 09/23/2016 | | Results for this | | | e | 10:45 PM | | procedure are in the | | | | PDT | | results section. | + +--------+ + + + | CBC WITH | STAT | 09/23/2016 | | Results for this | | DIFFERENTIAL | | 10:45 PM | | procedure are in the | | | | PDT | | results section. | + +--------+ + + + | COMPREHENSIVE | STAT | 09/23/2016 | | Results for this | | METABOLIC PANEL | | 10:45 PM | | procedure are in the | | | | PDT | | results section. | + +--------+ + + + documented in this encounter Results POC Glucose (09/24/2016 12:53 AM PDT) + +---------+ + + + | Component | Value | Ref Range | Performed | Pathologist | | | | | At | Signature | + +---------+ + + + | Glucose, | 536 (H) | 70 - 150 mg/dL | [facility] [...] + | [facility] | [address] | [place] | [phone] | | [facility] | | [address] | | | - LABORATORY | | | | + + + + + Extra Gold Top Tube (09/23/2016 10:45 PM PDT) + +-------+ + + + | [...] + | [facility] | [address] | [place] | [phone] | | [facility] | | [address] | | | - LABORATORY | | | | + + + + + Extra Blue Top Tube (09/23/2016 10:45 PM PDT) + +-------+ + + + | [...] [address] | [place] | [phone] | | [facility] | | [address] | | | - LABORATORY | | | | + + + + + Beta Hydroxybutyrate, Quant (09/23/2016 10:45 PM PDT) + + + + + + | Component | Value | Ref Range | Performed | Pathologist | | | | | At | Signature | + + + + + + | Beta | 3.19 (H) | 0.02 - 0.27 | [facility] | | | Hydroxybuty | | mmol/L | [facility] | | | rate | | | [...] + | [facility] | [address] | [place] | [phone] | | [facility] | | [address] | | | - LABORATORY | | | | + + + + + Comprehensive Metabolic Panel (09/23/2016 10:45 PM PDT) + + + + + [...] + + + + | K | 5.3 (H) | 3.5 - 5.1 | [facility] [...] 16 | 3 - 16 mmol/L | [facility] | | | | | | [facility] | | | | | | MEDICAL | | | | | | CENTER - | | | | | | LABORATORY | | + + + + + + | Glucose | 495 (H) | 70 - 109 mg/dL | [...] + + + + | Creatinine | 1.01 | 0.60 - 1.30 | [facility] | | | | | mg/dL | [facility] | | | | | | MEDICAL | | | | | | CENTER - | | | | | | LABORATORY | | + + + + + + | eGFR if not | >60Comment: GLOMERULAR | >=60 | [facility] | | | | FILTRATION | mL/min/1.73m2 | [facility] | | | ENGLISH | RATE,ESTIMATED | | MEDICAL | | | | mL/min/1.28e1Zugj than | | CENTER - | | [...] | 8.9 | 8.3 - 10.5 | [facility] | | | | | mg/dL | [facility] | | | | | | MEDICAL | | | | | | CENTER - | | | | | | LABORATORY | | + + + + + + | Albumin | 3.0 (L) | 3.2 - 5.0 g/dL | [facility] | | | | | | [facility] | | | | | | [facility]ICAL | | | | | | CENTER - | | | | | | LABORATORY | | + + + + + + | Bilirubin | 1.0 | 0.1 - 1.5 mg/dL | [facility] | | | Total | | | [facility] | | | | | | MEDICAL | | | | | | CENTER - | | | | | | LABORATORY | | + + + + + + | Total | 5.4 (L) | 6.0 - 7.8 g/dL | [facility] | | | Protein | | | [facility] | | | | | | MEDICAL | | | | | | CENTER - | | | | | | LABORATORY | | + + + + + + | AST | 71 (H) | 10 - 42 U/L | [facility] | | | | | | [facility] | | | | | | MEDICAL | | | | | | CENTER - | | | | | | LABORATORY | | + + + + + + | ALT | 103 (H) | 6 - 45 U/L | [facility] | | | | | | [facility] | | | | | | MEDICAL | | | | | | CENTER - | | | | | | LABORATORY | | + + + + + + | Alkaline | 120 (H) | 40 - 110 U/L | [facility] | | | Phosphatase | | | [facility] | | | | | | MEDICAL | | | | | | CENTER - | | | | | | LABORATORY | | + + + + + + | Globulin | 2.4 | 2.1 - 3.8 g/dL | [facility] | | | | | | [facility] | | | | | | MEDICAL | | | | | | CENTER - | | | | | | LABORATORY | | + + + + + + | Albumin/Eliz | 1.3 | 0.8 - 2.0 | [facility] | | | bulin Ratio | | | [facility] | | | | | | MEDICAL | | | | | | CENTER - | | | | | | LABORATORY | | + + + + + + | BUN/Creatin | 13.9 | | [facility] | | | ine [...] [address] | [place] | [phone] | | [facility] | | [address] | | | - LABORATORY | | | | + + + + + CBC with Differential (09/23/2016 10:45 PM PDT) + + + + + + | Component | Value | Ref Range | Performed | Pathologist | | | | | At | Signature | + + + + + + | WBC | 3.3 (L) | 4.0 - 11.0 K/uL | [facility] [...] + + + + | Hemoglobin | 12.5 (L) | 13.5 - 18.0 | [facility] | | | | | g/dL | [facility] | | | | | | MEDICAL | | | | | | CENTER - | | | | | | LABORATORY | | + + + + + + | Hematocrit | 36.2 (L) | 40.0 - 51.0 % | [...] + + + + | MCHC | 34.6 | 32.0 - 36.0 | [facility] | | | | | g/dL | [facility] | | | | | | MEDICAL | | | | | | CENTER - | | | | | | LABORATORY | | + + + + + + | RDW-CV | 13.2 | <15.0 % | [facility] | | | | | | [facility] | | | | | | MEDICAL | | | | | | CENTER - | | | | | | LABORATORY | | + + + + + + | Platelet | 139 (L) | 140 - 440 K/uL | [facility] [...] + + + + | % | 52.5 | 45.0 - 82.0 % | [facility] | | | Neutrophils | | | [facility] | | | | | | MEDICAL | | | | | | CENTER - | | | | | | LABORATORY | | + + + + + + | % | 33.5 | 20.0 - 45.0 % | [facility] | | | Lymphocytes | | | [facility] | | | | | | MEDICAL | | | | | | CENTER - | | | | | | LABORATORY | | + + + + + + | % Monocytes | 12.5 (H) | 4.0 - 12.0 % | [facility] | | | | | | [facility] | | | | | | MEDICAL | | | | | | CENTER - | | | | | | LABORATORY | | + + + + + + | % | 0.7 | 0.0 - 5.0 % | [facility] | | | Eosinophils | | | [facility] | | | | | | MEDICAL | | | | | | CENTER - | | | | | | LABORATORY | | + + + + + + | % Basophils | 0.8 | 0.0 - 1.0 % | [facility] | | | | | | [facility] | | | | | | MEDICAL | | | | | | CENTER - | | | | | | LABORATORY | | + + + + + + | Absolute | 1.70 (L) | 1.80 - 8.50 | [facility] | | | Neutrophils | | K/uL | [facility] | | | | | | MEDICAL | | | | | | CENTER - | | | | | | LABORATORY | | + + + + + + | Absolute | 1.10 | 0.60 - 3.20 | [facility] | | | Lymphocytes | | K/uL | [facility] | | | | | | MEDICAL | | | | | | CENTER - | | | | | | LABORATORY | | + + + + + + | Absolute | 0.40 | 0.00 - 1.00 | [facility] | [...] + | [facility] | [address] | [place], [place] | [phone] | | [facility] | | [address] | | | - LABORATORY | | | | + + + + + documented in this encounter Visit Diagnoses + + | Diagnosis | + + | Hyperglycemia - Primary Other abnormal glucose | + + | Genital edema, male Edema of male genital organs | + + documented in this encounter Administered Medications + +---------+ +------+-------+------+ | Medication Order | MAR | Action | Dose | Rate | Site | | | Action | Date | | | | + +---------+ +------+-------+------+ | albumin 25% IVPB 25 g 25 g, | New Bag | 09/24/19 | 25 g | 100 | | | Intravenous, Administer over 60 | | 17 10:50 | | mL/hr | | | Minutes, ONCE, 09/23/16 at | | PM PDT | | | | | 2230, For 1 dose | | | | | | + +---------+ +------+-------+------+ +---+---+ | | | +---+---+ + +-------+ +-------+---+---+ | furosemide (LASIX) injection 40 | Given | 09/24/19 | 40 mg | | | | mg 40 mg, Intravenous, ONCE, | | 17 10:46 | | | | | 09/23/16 at 2230, For 1 dose | | PM PDT | | | | + +-------+ +-------+---+---+ +---+---+ | | | +---+---+ + + + + +---+---+ | HYDROcodone-acetaminophen | Dispense | 09/25/19 | 1 tablet | | | | (NORCO) 5-325 mg per tablet (ER | to Home | 17 1:13 | | | | | Prepack) 1-2 tablet 1-2 tablet, | | AM PDT | | | | | Oral, EVERY 6 HOURS PRN, Moderate | | | | | | | Pain, Starting 09/24/16 at | | | | | | | 0059, Take 1-2 tablet(s) every | | | | | | | 4-6 hours if needed. Dispense | | | | | | | for home use. Enter order number | | | | | | | on MAR when dispensing., | | | | | | + + + + +---+---+ +---+---+ | | | +---+---+ + +-------+ +---------+---+---+ | HYDROcodone-acetaminophen | Given | 09/25/19 | 2 | | | | (NORCO) 5-325 mg per tablet 2 | | 17 12:23 | tablets | | | | tablet 2 tablet, Oral, ONCE, Mon | | AM PDT | | | | | 09/23/16 at 2320, For 1 dose | | | | | | + +-------+ +---------+---+---+ +---+---+ | | | +---+---+ + +-------+ +---------+---+ + | insulin glargine (LANTUS | Given | 09/25/19 | 9 Units | | Abdomen- | | SOLOSTAR) 100 units/mL injection | | 17 12:24 | | | LLQ | | (pen) 9 Units 9 Units, | | AM PDT | | | | | Subcutaneous, NIGHTLY, First dose | | | | | | | on 09/23/16 at 2345, For | | | | | | | subcutaneous use only. Basal | | | | | | | (long acting) insulin., | | | | | | + +-------+ +---------+---+ + +---+---+ | | | +---+---+ + +-------+ +---------+---+ + | insulin regular (humuLIN R, | Given | 09/25/19 | 6 Units | | Arm-Left | | novoLIN R) injection 6 Units 6 | | 17 12:23 | | | Upper | | Units, Subcutaneous, ONCE, Mon | | AM PDT | | | | | 09/23/16 at 2345, For 1 dose | | | | | | + +-------+ +---------+---+ + +---+---+ | | | +---+---+ documented in this encounter
--- OUTSIDE RECORDS SUMMARY | ~2019-11-30 | XMS | Encounter Summary ---
Demographics + + + | Address | [address] | | | [place] [address] | + + + | Home Phone | | + + + | Preferred Language | Unknown | + + + | Marital Status | Single | + + + | Amish Affiliation | 1001 | + + + [...] Team Providers + +------+ + | Care Chain Tender Name | Role | Phone | + [...] Provider Unknown | | | | | [place], [place] | | | | | | [address] | (Fax) | | | | | [...]
--- OUTSIDE RECORDS SUMMARY | ~2019-11-30 | XMS | Encounter Summary ---
Demographics + + + | Address | [address] | | | [place] [address] | + + + | Home Phone | | + + + | Preferred Language | Unknown | + + + | Marital Status | Single | + + + | Temple Affiliation | 1001 | + + + | Race | Unknown | + + + | Ethnic Group | Unknown | + + + Author + + + | Author | [facility] | | | and Ryana | + + + | Organization | [facility] | | | [...] Team Providers + +------+ + | Care Risk Mgr Name | Role | Phone | + [...] + + | 05/07/ | Emergency | [facility] | Adi Castro | Vomiting, | | 2017 | | [facility] | Alexander Craig MD | intractability of | | | | CENTER [address] | [address] | vomiting not | | | | [place], [place] | [place], [place] | specified, presence | | | | [address] | [address] | of nausea not | | | | [phone] | | specified, | | | | [...] J?MRN: | | | | | | [id number] | | | [id number] | | | his | | | [...] | | | St. | | | [place] | | | y | | | [...] | | | St. | | | [place] | | | y | | | [...] | | | St. | | | [facility]en | | | y H. | | [...] | | | St. | | | [place]en | | | y H. | | [...] | | | St. | | | [place]en | | | y H. | | [...] | | | St. | | | [place]en | | | y H. | | [...] | | | St. | | | [place]en | | | y H. | | [...] | | | St. | | | [place] | | | y | | | [...] | | | ext. | | | [phone] | | | or go | | [...]
--- OUTSIDE RECORDS SUMMARY | ~2019-11-30 | XMS | Encounter Summary ---
Demographics + + + | Address | [address] | | | [place] [address] | + + + | Home Phone | | + + + | Preferred Language | Unknown | + + + | Marital Status | Single | + + + | Spiritism Affiliation | 1001 | + + + | Race | Unknown | + + + | Ethnic Group | Unknown | + + + Author + + + | Author | [facility] | | | and Ryana | + + + | Organization | [facility] | | | [...] Team Providers + +------+ + | Care Grocery Store Bagger Name | Role | Phone | + +------+ + PCP | Unavailable | + +------+ + Encounter Details +--------+ + + + + | Date | Type | Department | Care Team | Description | +--------+ + + + + | 08/23/ | Hospital | [facility] | Shivam Bustos MD | | | 2003 | Encounter | [facility] [address] [place] [address] | [address] [place] | | | | | [place], [place] | [facility] | | | | | [id number] | [place] [address] | | | | | [phone] | | | +--------+ + + + [...]
--- OUTSIDE RECORDS SUMMARY | ~2019-11-30 | XMS | Encounter Summary ---
Demographics + + + | Address | [address] | | | [place] [address] | + + + | Home Phone [...] Author + + + | Author | [facility] | | | and Ryana | + + + | Organization | [facility] | | | [...] Team Providers + +------+ + | Care Transliterator Name | Role | Phone | + +------+ + PCP | Unavailable | + +------+ + Encounter Details +--------+ + + + + | Date | Type | Department | Care Team | Description | +--------+ + + + + | 12/19/ | Hospital | [facility] | Zeus Wilcox MD, | | | 1999 - | Encounter | [place] [address] | [address] [place] [address] | | | | | [place], [place] | [place] [address] | | | 12/21/ | | [address] | [phone] | | | 1999 | | [phone] | | | +--------+ + + + [...]
--- OUTSIDE RECORDS SUMMARY | ~2019-11-30 | XMS | Encounter Summary ---
Demographics + + + | Address | [address] | | | [place] [address] | + + + | Home Phone | | + + + | Preferred Language | Unknown | + + + | Marital Status | Single | + + + | Denominational Affiliation | 1001 | + + + | Race | Unknown | + + + | Ethnic Group | Unknown | + + + Author + + + | Author | [facility] | | | and Ryana | + + + | Organization | [facility] | | | [...] Team Providers + +------+ + | Care Assistant Scientist Name | Role | Phone | + +------+ + PCP | Unavailable | + +------+ + Encounter Details +--------+ + + + + | Date | Type | Department | Care Team | Description | +--------+ + + + + | 12/19/ | Hospital | [facility] | Zeus Wilcox MD, | | | 1999 - | Encounter | [place] [address] | [address] [place] [address] | | | | | [place], [place] | [place] [address] | | | 12/21/ | | [address] | [phone] | | | 1999 | | [phone] | | | +--------+ + + + [...]
--- OUTSIDE RECORDS SUMMARY | ~2019-11-30 | XMS | Encounter Summary ---
Demographics + + + | Address | [address] | | | [place] [address] | + + + | Home Phone | | + + + | Preferred Language | Unknown | + + + | Marital Status | Single | + + + | Congregation Affiliation | 1001 | + + + [...] Team Providers + +------+ + | Care Wet Pan Operator Name | Role | Phone | + +------+ + PCP | Unavailable | + +------+ + Encounter Details +--------+ + + + + | Date | Type | Department | Care Team | Description | +--------+ + + + + | 06/19/ | [facility] | [place] | Abhi Berger | | | 2003 | Encounter | [facility] | [address] | | | | | [address] | [place], [place] | | | | | [place] [address] | [address] | | | | | [phone] | | | +--------+ + + + [...]
--- OUTSIDE RECORDS SUMMARY | ~2019-11-30 | XMS | Clinical Summary ---
Demographics + + + | Address | [address] | | | [place] [address] | + + + | Home Phone | | + + + | Preferred Language | Unknown | + + + | Marital Status | Single | + + + | Lutheran Affiliation | 1001 | + + + | Race | Unknown | + + + | Ethnic Group | Unknown | + + + Author + + + | Author | [facility] | | | and Ryana | + + + | Organization | [facility] | | | and [...] Team Providers + +------+ + | Care Armament Aircraft Mechanic Name | Role | Phone | + [...] | 11/2 | | Activ | | (CHRISTIAN HAMEED) | under the skin 2 | | | 9/20 | | e | | 100 units/mL | times daily. | | | 19 | | | | injection (pen) | | | | | | | + + + +---------+------+------+-------+ | insulin lispro | Inject 0-12 Units | 10 mL | 0 | 11/ | | Activ | | (HUMALOG) 100 [...] | Overview: Current smoker | + + Immunizations + + + + [...] recent travel history available. | + + Last Filed Vital Signs + [...] | | | Dtap/Tdap/Td (1 - | 2 | | | | Tdap) | | | | + + + + + | Diabetic Eye Exam | | | | | | 9 | | | + + + + + | Diabetic Foot Exam | | | | | | 9 | | | + + + + + | Vaccine: | | 06/21/2016, 02/08/2016 | | | Pneumococcal 19-64 | 7 | | | | (3 of 3 - PCV13) | | | | + + + + + | Hemoglobin A1c | | 05/19/2019, 10/03/2016, | | | Screening | 0 | 02/06/2016 | | + + + + + | Vaccine: Influenza | | 04/23/2011 | | | (Season Ended) | 0 | | | + + + + + Results Not on filefrom Last 3 Months Insurance + +--------+ +--------+ [...] | [employer] | [employer] | [id number] | 01/22/20 | [phone] | | Medica | | MEDICAID HMO | HEALTH | | 16-Pre | 1 | | id | | | MDCD | | [place] | | | | | | [place] | | | | | | + +--------+ +--------+ +---------+--------+ | [employer] | [employer] | [id number] | 05/17/ | [phone] | | Medica | | MEDICAID HMO [...] [address] | | [place] | [place] | | 1981 | [phone] | [address] [place] | | | [place] | | | 9 (Home) | [id number] | + +--------+ +--------+ + + | Joni Kwon | Person | Self | [birth year] | | [address] | | [place] | al/Fam | | 1981 | [phone] | [address] [place] | | | [place] | | | [address] (Home) | [phone] | + +--------+ +--------+ + + | Joni Kwon | Mental | Self | [birth year] | | [address] | | [place] | | | 1980 | [phone] | [address] [place] | | | Health | | | 9 ([place]) | [address] | + +--------+ +--------+ + + Advance Directives + + + + + | Type | Date Recorded | Patient | Explanation | | | | [place] | | + + + + + | Power of | | | | | Tourist Camp Attendant | | | | + + + + + | Advance | 06/20/2016 | | | | Directive | 7:25 PM | | | + + + [...]
--- OUTSIDE RECORDS SUMMARY | ~2019-11-30 | XMS | Encounter Summary ---
Demographics + + + | Address | [address] | | | [place] [address] | + + + | Home Phone | | + + + | Preferred Language | Unknown | + + + | Marital Status | Single | + + + | Hoahaoism Affiliation | 1001 | + + + [...] Team Providers + +------+ + | Care Consulting Systems Engineer Name | Role | Phone | + +------+ + PCP | Unavailable | + +------+ + Encounter Details +--------+ + + + + | Date | Type | Department | Care Team | Description | +--------+ + + + + | 03/30/ | Hospital | [facility] | Brooke Kemp | | | 2008 | Encounter | HOSPITAL EMERGENCY | MD [address] | | | | | [place] [address] [place], | | | | | [place], [place] | [place] [address] | | | | | [address] | [phone] | | | | | [phone] | | | +--------+ + + + [...]
--- OUTSIDE RECORDS SUMMARY | ~2019-11-30 | XMS | Encounter Summary ---
Demographics + + + | Address | [address] | | | [place] [address] | + + + | Home Phone | | + + + | Preferred Language | Unknown | + + + | Marital Status | Single | + + + | Lutheran Affiliation | 1001 | + + + | Race | Unknown | + + + | Ethnic Group | Unknown | + + + Author + + + | Author | [facility] | | | and Ryana | + + + | Organization | [facility] | | | [...] Team Providers + +------+ + | Care Community Ambassador Name | Role | Phone | + [...] + + | 05/17/ | Hospital | [facility] | Alexis, | Schizophrenia, | | 2019 - | Encounter | [facility] | DO Benjamin [address] | unspecified type | | | | CARE FLOOR [address] | [address] | ([facility]) (Primary Dx); | | 05/21/ | | [address] | [place] [address] | Acute psychosis | | 2019 | | [place], [place] | [phone] | (HCC); Marijuana | | | | [address] | | use; Nausea and | | | | [phone] | Tacos Brian MD | vomiting in adult; | | | | | [address] | Noncompliance with | | | | | [place], [place] | medication regimen; | | | | | [address] | Tobacco smoker | | | | | [phone] | within last 12 | | | | | | months; Type 1 | | | | | Tacos Paredes PA | diabetes mellitus | | | | | [address] | without complication | | | | | [place] [address] | (HCC); | | | | | [phone] | Schizoaffective | | | | | | disorder, bipolar | | | | | Hosea Watson, | type ([facility]); Acute | | | | | [address] [facility] | hyperkalemia | | | | | [place] [address] | | | | | | [phone] | | | | | | | | | | | | Cony Castillo, | | | | | | [address] [facility] | | | | | | [place] [address] | | | | | | [phone] | | | | | | | [...] might be different f rom the original. [facility] Service: Hospitalist Discharge Summary Date of [...] s morning. The patient was accepted to [facility] for further treatment. The patient still refuses to take his psychiatric medications. I spoke with Dr. Carrillo, who g raciously accepts the patient for the transfer. 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 Chew and tuck 1 piece every [...] to take when to take this aka: LANTUS SOLOSTAR Unchanged Medications Details albuterol 90 mcg/puff inhaler [...] disc harge summary. Hosea Watson MD 05/21/2019 dorickie jenkins in this encounter Medications at Time [...] and medications adjusted prior to patient adilene stoner. Report given to [facility]. Security came and gave patient back his belongings. Patient sent ina john home with his mother. No other concerns noted. [facility] here to take patient to [facility]. Elisa Mendez RN 5:41 PM Elisa Marquez RN - 1 07/21/2018 5:15 PM PSTPatient's blood sugar 66. Waiting on food to arrive. [place] juice and vu crackers given. Patient's dinner arrived. [facility] here but needing to get blood sugar sta bilized before transport. Elisa Mendez RN 5:16 PM Elisa Marquez RN - 1 07/21/2018 2:20 PM PSTNurse from [facility] [place] called to get update on patient. Nurse to nurse report provided. Elisa Mendez RN 2:21 PM Elisa Marquez RN - 1 07/21/2018 2:06 PM PSTPatient [...] this note might be different from the [facility] Service: Hospitalist Progress Note Hospital Day: LOS: [...] to take newly ordered oral psych medication. aware. No other new concerns. End of shift review complete. Elisa Mendez RN 7:22 PM Hosea Kirkland MD - 05/20/2019 12:18 PM PST [facility] Service: Hospitalist Progress Note Hospital Day: [...] sodium chloride 0.9% 30 mL/hr at 05/19/19 195 PRN Medications acetaminophen, albuterol, calcium carbonate, Hypoglycemia [...] Status: Full Code Hosea Watson MD 05/20/2019 oleo, Alexa Mathis RN - 05/19/2019 6:15 PM PSTPatient belongings and home medications sent ramsey n to the safe with security. 19 6:15 PM Hosea Kirkland MD - 05/19/2019 2:57 PM PST [facility] Service: Hospitalist Progress Note Hospital Day: [...] MD 05/19/2019 documente d in this encounter Plan of Treatment + [...] | | n - | | | 05/17/ | | | 2018 | | | [...] | | | ON?11/ | | | 25/201 | | | 9 | | | 21:50? | | | VU | | | , | | | BENJAM | | | IN | | | J?MRN: | | | | | | [id number] | | | [id number] | | | riteri | | | [...] | | | St. | | | [facility] | | | y | | | Hospit | | | al | | | PATIEN | | | T HAS | | | AN APT | | | TO | | | ESTABL | | | JAZMIN | | | CARE | | | WITH | | | DR | | | AUGUSTINE | | | ON | | | 10/26/ | | | 197/8/ | | | 19 | | | 12:00 | | | AM | | | [facility] | | | [facility] | | | y | | | [...] | | | St. | | | [facility] | | | y | | | Hospit | | | al | | | Patien | | | t is | | | curren | | | tly | | | establ | | | ished | | | with | | | St | | | [facility] | | | y | | | [...] St | | | | | | [facility] | | | y | | | [...] | | | St. | | | [facility] | | | y | | | [...] | | | St. | | | [facility] | | | y H. | | [...] | | | St. | | | [facility] | | | y H. | | [...] | | | St. | | | [facility] | | | y H. | | [...] | | | St. | | | [facility] | | | y H. | | [...] | | | St. | | | [facility] | | | y H. | | [...] | | | St. | | | [facility] | | | y H. | | [...] | | | Dates | | | Augustine, | | | | | | Lakhwinder, | | | MD | | | [employer] | | | al | | | [...] | | | [id number] | | | [id number] | | | 95 | | | [...] Testing | 65 - 99 mg/dL | [facility] | | | POC | performed at [facility];[address] | | LABORATORY | | | | [address];[place] | | | | | | [address] | | | | + + + + + + + + | Specimen | + + | | + + + + + + + | Performing | Address | City/State/Zipcode | Phone Number | | Organization | | | | + + + + + | [facility] | [address] | [place] [address] | [phone] | + + + + + POC Glucose (05/21/2019 5:09 PM PST) + + + + + + | Component | Value | Ref Range | Performed | Pathologist | | | | | At | Signature | + + + + + + | Glucose, | 66Comment: Testing | 65 - 99 mg/dL | [facility] | | | POC | performed at [facility];[address] | | LABORATORY | | | | [address];[place], [place] | | | | | | [address] | | | | + + + + + + + + | Specimen | + + | | + + + + + + + | Performing | Address | City/State/Zipcode | Phone Number | | Organization | | | | + + + + + | [facility] | [address] | [place] [address] | [phone] | + + + + + POC Glucose (05/21/2019 4:51 PM PST) + + + + + + | Component | Value | Ref Range | Performed | Pathologist | | | | | At | Signature | + + + + + + | Glucose, | 66Comment: Testing | 65 - 99 mg/dL | [facility] | | | POC | performed at [facility];[address] | | LABORATORY | | | | [address];[place] | | | | | | [address] | | | | + + + + + + + + | Specimen | + + | | + + + + + + + | Performing | Address | City/State/Zipcode | Phone Number | | Organization | | | | + + + + + | [facility] | [address] | [place] [address] | [phone] | + + + + + POC Glucose (05/21/2019 3:10 PM PST) + + + + + + | Component | Value | Ref Range | Performed | Pathologist | | | | | At | Signature | + + + + + + | Glucose, | 88Comment: Testing | 65 - 99 mg/dL | [facility] | | | POC | performed at [facility];[address] | | LABORATORY | | | | [address];[place] | | | | | | [address] | | | | + + + + + + + + | Specimen | + + | | + + + + + + + | Performing | Address | City/State/Zipcode | Phone Number | | Organization | | | | + + + + + | [facility] | [address] | [place] [address] | [phone] | + + + + + POC Glucose (05/21/2019 2:48 PM PST) + + + + + + | Component | Value | Ref Range | Performed | Pathologist | | | | | At | Signature | + + + + + + | Glucose, | 53 (L)Comment: Testing | 65 - 99 mg/dL | [facility] | | | POC | performed at [facility];[address] | | LABORATORY | | | | [address];[place], [place] | | | | | | [address] | | | | + + + + + + + + | Specimen | + + | | + + + + + + + | Performing | Address | City/State/Zipcode | Phone Number | | Organization | | | | + + + + + | [facility] | [address] | [place] [address] | [phone] | + + + + + POC Glucose (05/21/2019 11:45 AM PST) + + + + + + | Component | Value | Ref Range | Performed | Pathologist | | | | | At | Signature | + + + + + + | Glucose, | 181 (H)Comment: Testing | 65 - 99 mg/dL | [facility] | | | POC | performed at [facility];[address] | | LABORATORY | | | | [address];[place], [place] | | | | | | [address] | | | | + + + + + + + + | Specimen | + + | | + + + + + + + | Performing | Address | City/State/Zipcode | Phone Number | | Organization | | | | + + + + + | [facility] | [address] | [place] [address] | [phone] | + + + + + Basic [...] | 8.8 | 8.5 - 10.5 | [facility] | [...] | | | | | performed at [facility], [address] | | | | | | [facility], | | | | | | [place] [address] | | | | + + + + + + + + | Specimen | + + | Blood | + + + + + + + | Performing | Address | City/State/Zipcode | Phone Number | | Organization | | | | + + + + + | [facility] | [address] | [place] [address] | [phone] | + + + + + POC Glucose (05/21/2019 8:28 AM PST) + + + + + + | Component | Value | Ref Range | Performed | Pathologist | | | | | At | Signature | + + + + + + | Glucose, | 250 (H)Comment: Testing | 65 - 99 mg/dL | [facility] | | | POC | performed at [facility];[address] | | LABORATORY | | | | [address];[place] | | | | | | [address] | | | | + + + + + + + + | Specimen | + + | | + + + + + + + | Performing | Address | City/State/Zipcode | Phone Number | | Organization | | | | + + + + + | [facility] | [address] | [place] [address] | [phone] | + + + + + POC [...] | | | POC | performed at [facility];[address] | | LABORATORY | | | | [address];[place], [place] | | | | | | [address] | | | | + + + + + + + + | Specimen | + + | | + + + + + + + | Performing | Address | City/State/Zipcode | Phone Number | | Organization | | | | + + + + + | [facility] | [address] | [place] [address] | [phone] | + + + + + POC [...] | | | POC | performed at [facility];[address] | | LABORATORY | | | | [address];[place] | | | | | | [address] | | | | + + + + + + + + | Specimen | + + | | + + + + + + + | Performing | Address | City/State/Zipcode | Phone Number | | Organization | | | | + + + + + | [facility] | [address] [facility] | [place] [address] | [phone] | + + + + + POC [...] | | | POC | performed at [facility];[address] | | LABORATORY | | | | [address];[place], [place] | | | | | | [address] | | | | + + + + + + + + | Specimen | + + | | + + + + + + + | Performing | Address | City/State/Zipcode | Phone Number | | Organization | | | | + + + + + | [facility] | [address] | [place] [address] | [phone] | + + + + + Potassium (05/20/2019 3:58 PM PST) + + + + + + | Component | Value | Ref Range | Performed | Pathologist | | | | | At | Signature | + + + + + + | K | 4.9Comment: Testing | 3.5 - 4.9 | [facility] | | | | performed at [facility];[address] | mmol/L | LABORATORY | | | | [address];[place] | | | | | | [address] | | | | + + + + + + + + | Specimen | + + | Blood | + + + + + + + | Performing | Address | City/State/Zipcode | Phone Number | | Organization | | | | + + + + + | [facility] | [address] | [place] [address] | [phone] | + + + + + POC Glucose (05/20/2019 11:37 AM PST) + + + + + + | Component | Value | Ref Range | Performed | Pathologist | | | | | At | Signature | + + + + + + | Glucose, | >400 (H)Comment: Testing | 65 - 99 mg/dL | [facility] | | | POC | performed at [facility];[address] | | LABORATORY | | | | [address];[place], [place] | | | | | | [address] | | | | + + + + + + + + | Specimen | + + | | + + + + + + + | Performing | Address | City/State/Zipcode | Phone Number | | Organization | | | | + + + + + | [facility] | [address] | [place] [address] | [phone] | + + + + + Basic [...] | >60Comment: GFR <60: | >60 | [facility] | | | GFR | CHRONIC KIDNEY [...] | | | | | performed at [facility], [address] | | | | | | [facility], | | | | | | [place] [address] | | | | + + + + + + + + | Specimen | + + | Blood | + + + + + + + | Performing | Address | City/State/Zipcode | Phone Number | | Organization | | | | + + + + + | [facility] | [address] | [place] [address] | [phone] | + + + + + ECG [...] | | | POC | performed at [facility];[address] | | LABORATORY | | | | [address];[place], [place] | | | | | | [address] | | | | + + + + + + + + | Specimen | + + | | + + + + + + + | Performing | Address | City/State/Zipcode | Phone Number | | Organization | | | | + + + + + | [facility] | [address] | [place] [address] | [phone] | + + + + + POC [...] | | | POC | performed at [facility];[address] | | LABORATORY | | | | [address];[place], [place] | | | | | | [address] | | | | + + + + + + + + | Specimen | + + | | + + + + + + + | Performing | Address | City/State/Zipcode | Phone Number | | Organization | | | | + + + + + | [facility] | [address] | [place] [address] | [phone] | + + + + + POC Glucose (05/20/2019 2:21 AM PST) + + + + + + | Component | Value | Ref Range | Performed | Pathologist | | | | | At | Signature | + + + + + + | Glucose, | 244 (H)Comment: Testing | 65 - 99 mg/dL | [facility] | | | POC | performed at [facility];[address] | | LABORATORY | | | | [address];[place] | | | | | | [address] | | | | + + + + + + + + | Specimen | + + | | + + + + + + + | Performing | Address | City/State/Zipcode | Phone Number | | Organization | | | | + + + + + | [facility] | [address] | [place] [address] | [phone] | + + + + + POC Glucose (05/20/2019 1:22 AM PST) + + + + + + | Component | Value | Ref Range | Performed | Pathologist | | | | | At | Signature | + + + + + + | Glucose, | 248 (H)Comment: Testing | 65 - 99 mg/dL | [facility] | | | POC | performed at [facility];[address] | | LABORATORY | | | | [address];[place], [place] | | | | | | [address] | | | | + + + + + + + + | Specimen | + + | | + + + + + + + | Performing | Address | City/State/Zipcode | Phone Number | | Organization | | | | + + + + + | [facility] | [address] | [place] [address] | [phone] | + + + + + POC [...] | | | POC | performed at [facility];[address] | | LABORATORY | | | | [address];[place], [place] | | | | | | [address] | | | | + + + + + + + + | Specimen | + + | | + + + + + + + | Performing | Address | City/State/Zipcode | Phone Number | | Organization | | | | + + + + + | [facility] | [address] | [place] [address] | [phone] | + + + + + POC [...] | | | POC | performed at [facility];[address] | | LABORATORY | | | | [address];[place] | | | | | | [address] | | | | + + + + + + + + | Specimen | + + | | + + + + + + + | Performing | Address | City/State/Zipcode | Phone Number | | Organization | | | | + + + + + | [facility] | [address] | [place] [address] | [phone] | + + + + + POC Glucose (05/19/2019 10:21 PM PST) + + + + + + | Component | Value | Ref Range | Performed | Pathologist | | | | | At | Signature | + + + + + + | Glucose, | 138 (H)Comment: Testing | 65 - 99 mg/dL | [facility] | | | POC | performed at [facility];[address] | | LABORATORY | | | | [address];[place] | | | | | | [address] | | | | + + + + + + + + | Specimen | + + | | + + + + + + + | Performing | Address | City/State/Zipcode | Phone Number | | Organization | | | | + + + + + | [facility] | [address] | [place] [address] | [phone] | + + + + + POC [...] | | | POC | performed at [facility];[address] | | LABORATORY | | | | [address];[place] | | | | | | [address] | | | | + + + + + + + + | Specimen | + + | | + + + + + + + | Performing | Address | City/State/Zipcode | Phone Number | | Organization | | | | + + + + + | [facility] | [address] | [place] [address] | [phone] | + + + + + POC [...] | | | POC | performed at [facility];[address] | | LABORATORY | | | | [address];[place] | | | | | | [address] | | | | + + + + + + + + | Specimen | + + | | + + + + + + + | Performing | Address | City/State/Zipcode | Phone Number | | Organization | | | | + + + + + | [facility] | [address] | [place] [address] | [phone] | + + + + + POC Glucose (05/19/2019 9:06 PM PST) + + + + + + | Component | Value | Ref Range | Performed | Pathologist | | | | | At | Signature | + + + + + + | Glucose, | 54 (L)Comment: Testing | 65 - 99 mg/dL | [facility] | | | POC | performed at [facility];[address] | | LABORATORY | | | | [address];[place] | | | | | | [address] | | | | + + + + + + + + | Specimen | + + | | + + + + + + + | Performing | Address | City/State/Zipcode | Phone Number | | Organization | | | | + + + + + | [facility] | [address] | [place] [address] | [phone] | + + + + + POC [...] | | | POC | performed at [facility];[address] | | LABORATORY | | | | [address];[place], [place] | | | | | | [address] | | | | + + + + + + + + | Specimen | + + | | + + + + + + + | Performing | Address | City/State/Zipcode | Phone Number | | Organization | | | | + + + + + | [facility] | [address] | [place] [address] | [phone] | + + + + + POC [...] | | | POC | performed at [facility];[address] | | LABORATORY | | | | [address];[place] | | | | | | [address] | | | | + + + + + + + + | Specimen | + + | | + + + + + + + | Performing | Address | City/State/Zipcode | Phone Number | | Organization | | | | + + + + + | [facility] | [address] | [place] [address] | [phone] | + + + + + Glucose, Random (05/19/2019 5:51 PM PST) + + + + + + | Component | Value | Ref Range | Performed | Pathologist | | | | | At | Signature | + + + + + + | Glucose | 421 (H)Comment: Testing | 65 - 99 mg/dL | [facility] | | | | performed at [facility];[address] | | LABORATORY | | | | [address];[place] | | | | | | [address] | | | | + + + + + + + + | Specimen | + + | Blood | + + + + + + + | Performing | Address | City/State/Zipcode | Phone Number | | Organization | | | | + + + + + | [facility] | [address] | [place] [address] | [phone] | + + + + + POC Glucose (05/19/2019 5:48 PM PST) + + + + + + | Component | Value | Ref Range | Performed | Pathologist | | | | | At | Signature | + + + + + + | Glucose, | >400 (H)Comment: Testing | 65 - 99 mg/dL | [facility] | | | POC | performed at [facility];[address] | | LABORATORY | | | | [address];[place] | | | | | | [address] | | | | + + + + + + + + | Specimen | + + | | + + + + + + + | Performing | Address | City/State/Zipcode | Phone Number | | Organization | | | | + + + + + | [facility] | [address] | [place] [address] | [phone] | + + + + + Hemoglobin A1C (05/19/2019 3:06 PM PST) + + + + + + | Component | Value | Ref Range | Performed | Pathologist | | | | | At | Signature | + + + + + + | Hemoglobin | 10.2 (H)Comment: HbA1c | 4.0 - 6.0 % | [facility] | | | A1c | method [...] | 246 (H)Comment: | <154 mg/dL | [facility] | | | Average | Estimated Average | | LABORATORY | | | Glucose | Glucose calculated from | | | | | | hemoglobin A1c by use of | | | | | | the ADArecommended | | | | | | formula.Testing | | | | | | performed at [facility], [address] | | | | | [facility], | | | | | | [place] [address] | | | | + + + + + + + + | Specimen | + + | Blood | + + + + + + + | Performing | Address | City/State/Zipcode | Phone Number | | Organization | | | | + + + + + | [facility] | [address] | [place] [address] | [phone] | + + + + + Glucose, Random (05/19/2019 3:06 PM PST) + + + + + + | Component | Value | Ref Range | Performed | Pathologist | | | | | At | Signature | + + + + + + | Glucose | 520 ()Comment: CALLED | 65 - 99 mg/dL | [facility] | | | | RESULTSREAD BACK RESULTS | | LABORATORY | | | | VERIFIEDBOOM/CONSUELO Cervantes | | | | | | AT [address] | | | | | | performed at [facility];[address] | | | | | | [address];[place] | | | | | | [address] | | | | + + + + + + + + | Specimen | + + | Blood | + + + + + + + | Performing | Address | City/State/Zipcode | Phone Number | | Organization | | | | + + + + + | [facility] | [address] | [place] [address] | [phone] | + + + + + POC [...] | | | POC | performed at [facility];[address] | | LABORATORY | | | | [address];[place] | | | | | | [address] | | | | + + + + + + + + | Specimen | + + | | + + + + + + + | Performing | Address | City/State/Zipcode | Phone Number | | Organization | | | | + + + + + | [facility] | [address] | [place] [address] | [phone] | + + + + + POC Glucose (05/19/2019 9:02 AM PST) + + + + + + | Component | Value | Ref Range | Performed | Pathologist | | | | | At | Signature | + + + + + + | Glucose, | 318 (H)Comment: Testing | 65 - 99 mg/dL | [facility] | | | POC | performed at [facility];[address] | | LABORATORY | | | | [address];[place] | | | | | | [address] | | | | + + + + + + + + | Specimen | + + | | + + + + + + + | Performing | Address | City/State/Zipcode | Phone Number | | Organization | | | | + + + + + | [facility] | [address] | [place] [address] | [phone] | + + + + + Basic [...] | 9.0 | 8.5 - 10.5 | [facility] | | | | | mg/dL | LABORATORY | | + + + + + + | Estimated | >60Comment: GFR <60: | >60 | [facility] | | | GFR | CHRONIC [...] | | | | | performed at [facility];[address] | | | | | | [facility];[place], [place] | | | | | | [address] | | | | + + + + + + + + | Specimen | + + | Blood | + + + + + + + | Performing | Address | City/State/Zipcode | Phone Number | | Organization | | | | + + + + + | [facility] | [address] | [place] [address] | [phone] | + + + + + POC [...] | | | POC | performed at [facility];[address] | | LABORATORY | | | | [address];[place] | | | | | | [address] | | | | + + + + + + + + | Specimen | + + | | + + + + + + + | Performing | Address | City/State/Zipcode | Phone Number | | Organization | | | | + + + + + | [facility] | [address] | [place] [address] | [phone] | + + + + + POC [...] | | | POC | performed at [facility];[address] | | LABORATORY | | | | [address];[place], [place] | | | | | | [address] | | | | + + + + + + + + | Specimen | + + | | + + + + + + + | Performing | Address | City/State/Zipcode | Phone Number | | Organization | | | | + + + + + | [facility] | [address] | [place] [address] | [phone] | + + + + + Basic [...] | | | | | performed at [facility];[address] | | | | | | [facility];[place], [place] | | | | | | [address] | | | | + + + + + + + + | Specimen | + + | Blood | + + + + + + + | Performing | Address | City/State/Zipcode | Phone Number | | Organization | | | | + + + + + | [facility] | [address] | [place] [address] | [phone] | + + + + + POC [...] | | | POC | performed at [facility];[address] | | LABORATORY | | | | [address];[place], [place] | | | | | | [address] | | | | + + + + + + + + | Specimen | + + | | + + + + + + + | Performing | Address | City/State/Zipcode | Phone Number | | Organization | | | | + + + + + | [facility] | [address] | [place] [address] | [phone] | + + + + + POC Glucose (05/18/2019 8:19 PM PST) + + + + + + | Component | Value | Ref Range | Performed | Pathologist | | | | | At | Signature | + + + + + + | Glucose, | >400 (H)Comment: Testing | 65 - 99 mg/dL | [facility] | | | POC | performed at [facility];[address] | | LABORATORY | | | | [address];[place] | | | | | | [address] | | | | + + + + + + + + | Specimen | + + | | + + + + + + + | Performing | Address | City/State/Zipcode | Phone Number | | Organization | | | | + + + + + | [facility] | [address] | [place] [address] | [phone] | + + + + + Basic [...] | 8.7 | 8.5 - 10.5 | [facility] | [...] | | | | | performed at [facility];[address] | | | | | | [address];[place], [place] | | | | | | [address] | | | | + + + + + + + + | Specimen | + + | Blood | + + + + + + + | Performing | Address | City/State/Zipcode | Phone Number | | Organization | | | | + + + + + | [facility] | [address] | [place] [address] | [phone] | + + + + + POC [...] | | | POC | performed at [facility];[address] | | LABORATORY | | | | [address];[place] | | | | | | [address] | | | | + + + + + + + + | Specimen | + + | | + + + + + + + | Performing | Address | City/State/Zipcode | Phone Number | | Organization | | | | + + + + + | [facility] | [address] | [place] [address] | [phone] | + + + + + POC [...] | | | POC | performed at [facility];[address] | | LABORATORY | | | | [address];[place] | | | | | | [address] | | | | + + + + + + + + | Specimen | + + | | + + + + + + + | Performing | Address | City/State/Zipcode | Phone Number | | Organization | | | | + + + + + | [facility] | [address] | [place] [address] | [phone] | + + + + + POC Glucose (05/18/2019 12:22 PM PST) + + + + + + | Component | Value | Ref Range | Performed | Pathologist | | | | | At | Signature | + + + + + + | Glucose, | >400 (H)Comment: Testing | 65 - 99 mg/dL | [facility] | | | POC | performed at [facility];[address] | | LABORATORY | | | | [address];[place], [place] | | | | | | [address] | | | | + + + + + + + + | Specimen | + + | | + + + + + + + | Performing | Address | City/State/Zipcode | Phone Number | | Organization | | | | + + + + + | [facility] | [address] | [place] [address] | [phone] | + + + + + POC Glucose (05/18/2019 9:28 AM PST) + + + + + + | Component | Value | Ref Range | Performed | Pathologist | | | | | At | Signature | + + + + + + | Glucose, | 111 (H)Comment: Testing | 65 - 99 mg/dL | [facility] | | | POC | performed at [facility];[address] | | LABORATORY | | | | [address];[place] | | | | | | [address] | | | | + + + + + + + + | Specimen | + + | | + + + + + + + | Performing | Address | City/State/Zipcode | Phone Number | | Organization | | | | + + + + + | [facility] | [address] | [place] [address] | [phone] | + + + + + POC [...] | | | POC | performed at [facility];[address] | | LABORATORY | | | | [address];[place], [place] | | | | | | [address] | | | | + + + + + + + + | Specimen | + + | | + + + + + + + | Performing | Address | City/State/Zipcode | Phone Number | | Organization | | | | + + + + + | [facility] | [address] | [place] [address] | [phone] | + + + + + POC [...] | | | POC | performed at [facility];[address] | | LABORATORY | | | | [address];[place] | | | | | | [address] | | | | + + + + + + + + | Specimen | + + | | + + + + + + + | Performing | Address | City/State/Zipcode | Phone Number | | Organization | | | | + + + + + | [facility] | [address] | [place] [address] | [phone] | + + + + + POC Glucose (05/18/2019 1:36 AM PST) + + + + + + | Component | Value | Ref Range | Performed | Pathologist | | | | | At | Signature | + + + + + + | Glucose, | 319 (H)Comment: Testing | 65 - 99 mg/dL | [facility] | | | POC | performed at [facility];[address] | | LABORATORY | | | | [address];[place] | | | | | | [address] | | | | + + + + + + + + | Specimen | + + | | + + + + + + + | Performing | Address | City/State/Zipcode | Phone Number | | Organization | | | | + + + + + | [facility] | [address] | [place] [address] | [phone] | + + + + + Blood gas, Venous (05/18/2019 12:01 AM PST) + + + + + + | Component | Value | Ref Range | Performed | Pathologist | | | | | At | Signature | + + + + + + | pH, Venous, | 7.335 | 7.310 - 7.410 | [facility] | | | POC | | | LABORATORY | | + + + + + + | PCO2, | 54 (H) | 41 - 51 mmHG | [facility] | | | Venous, POC | | [...] (L) | 60 - 85 % | [facility] | | | SO2.BLDV.QN | | | LABORATORY | | | .(%) | | | | | + + + + + + | Comment, | Abdiel Test not | | [facility] | | | POC | indicatedComment: | | LABORATORY | | | | Testing performed at | | | | | | [facility];[address] | | | | | | [address];[place] [address] | | | | + + + + + + + + | Specimen | + + | | + + + + + + + | Performing | Address | City/State/Zipcode | Phone Number | | Organization | | | | + + + + + | [facility] | [address] | [place] [address] | [phone] | + + + + + Drugs [...] | Phencyclidi | NEGATIVEComment: | NEG | [facility] | | | ne Screen, | Positive cutoff for PCP | | LABORATORY | | | Urine | = 25 ng/mL | | | | + + + + + + | Tetrahydroc | POSITIVE (A)Comment: | NEG | [facility] | | | annabinol(T | Positive cutoff [...] | | | | | performed at [facility] | | | | | | [facility];[place], [place] | | | | | | [address] | | | | + + + + + + + + | Specimen | + + | Urine | + + + + + + + | Performing | Address | City/State/Zipcode | Phone Number | | Organization | | | | + + + + + | [facility] | [address] | [place] [address] | [phone] | + + + + + Ketones, Serum (05/17/2019 10:54 PM PST) + + + + + + | Component | Value | Ref Range | Performed | Pathologist | | | | | At | Signature | + + + + + + | Ketones, | NEGATIVEComment: Testing | NEG | [facility] | | | Blood | performed at [facility];[address] | | LABORATORY | | | | [address];[place], [place] | | | | | | [address] | | | | + + + + + + + + | Specimen | + + | Blood | + + + + + + + | Performing | Address | City/State/Zipcode | Phone Number | | Organization | | | | + + + + + | [facility] | [address] | [place] [address] | [phone] | + + + + + TSH (05/17/2019 10:54 PM PST) + + + + + + | Component | Value | Ref Range | Performed | Pathologist | | | | | At | Signature | + + + + + + | TSH | 1.314Comment: Testing | 0.450 - 5.100 | [facility] | | | | performed at [facility];[address] | uIU/mL | LABORATORY | | | | [address];[place] | | | | | | [address] | | | | + + + + + + + + | Specimen | + + | Blood | + + + + + + + | Performing | Address | City/State/Zipcode | Phone Number | | Organization | | | | + + + + + | [facility] | [address] | [place] [address] | [phone] | + + + + + Salicylate Level (05/17/2019 10:54 PM PST) + + + + + + | Component | Value | Ref Range | Performed | Pathologist | | | | | At | Signature | + + + + + + | Salicylate, | <3.0Comment: Testing | 2.8 - 20.0 | [facility] | | | mg/dL | performed at [facility];[address] | mg/dL | LABORATORY | | | | [address];[place] | | | | | | [address] | | | | + + + + + + + + | Specimen | + + | Blood | + + + + + + + | Performing | Address | City/State/Zipcode | Phone Number | | Organization | | | | + + + + + | [facility] | [address] | [place] [address] | [phone] | + + + + + Acetaminophen Level (05/17/2019 10:54 PM PST) + + + + + + | Component | Value | Ref Range | Performed | Pathologist | | | | | At | Signature | + + + + + + | Acetaminoph | <2.0 (L)Comment: Testing | 10.0 - 30.0 | [facility] | | | en, S | performed at [facility];[address] | ug/mL | LABORATORY | | | | [address];[place] | | | | | | [address] | | | | + + + + + + + + | Specimen | + + | Blood | + + + + + + + | Performing | Address | City/State/Zipcode | Phone Number | | Organization | | | | + + + + + | [facility] | [address] | [place] [address] | [phone] | + + + + + Ethanol (05/17/2019 10:54 PM PST) + + + + + + | Component | Value | Ref Range | Performed | Pathologist | | | | | At | Signature | + + + + + + | ALCOHOL, | <10Comment: Testing | <10 mg/dL | [facility] | | | SERUM/PLASM | performed at [facility];[address] | | LABORATORY | | | A | [address];[place], [place] | | | | | | [address] | | | | + + + + + + + + | Specimen | + + | Blood | + + + + + + + | Performing | Address | City/State/Zipcode | Phone Number | | Organization | | | | + + + + + | [facility] | [address] | [place] [address] | [phone] | + + + + + Comprehensive [...] | | | | | performed at [facility];[address] | | | | | | [facility];[place], [place] | | | | | | [address] | | | | + + + + + + + + | Specimen | + + | Blood | + + + + + + + | Performing | Address | City/State/Zipcode | Phone Number | | Organization | | | | + + + + + | [facility] | [address] | [place] [address] | [phone] | + + + + + CBC [...] + + + + | RBC | 4.94 | 4.20 - 5.70 | [facility] | | | | | M/uL | LABORATORY | | [...] 0.05Comment: Testing | 0.00 - 0.10 | [facility] | | | Absolute | performed at [facility];[address] | K/uL | LABORATORY | | | | [address];[place] | | | | | | [address] | | | | + + + + + + + + | Specimen | + + | Blood | + + + + + + + | Performing | Address | City/State/Zipcode | Phone Number | | Organization | | | | + + + + + | [facility] | [address] | [place] [address] | [phone] | + + + + + POC [...] | | | POC | performed at [facility];[address] | | LABORATORY | | | | [address];[place], [place] | | | | | | [address] | | | | + + + + + + + + | Specimen | + + | | + + + + + + + | Performing | Address | City/State/Zipcode | Phone Number | | Organization | | | | + + + + + | [facility] | [address] | [place] [address] | [phone] | + + + + + documented [...] | | | | | CONTINUOUS, Starting Fri05/19/19 | | | | | | | [...] | | | | | dose on Fri05/19/19 at 0300, | | | | | [...] | | | | | | | 5335-8698 Use NIGHT DOSE for | | | | | | | doses scheduled: HS, 3AM, | | | | | | | Nighttime 7293-7943 If the BG is | | | [...] | | | | | | | 3317-6785 Use NIGHT DOSE for | | | | | | | doses scheduled: HS, 3AM, | | | | | | | Nighttime 1531-0859 If the BG is | | | [...] | | | | | dose on Fri05/20/19 at 1230, | | | | | [...] | | | | | | | 5070-3384 Use NIGHT DOSE for | | | | | | | doses scheduled: HS, 3AM, | | | | | | | Nighttime 0227-9852 If the BG is | | | [...] | | | | | | | Fri05/19/19 at 1700, Only for | | | [...] | | | | | | | Fri05/19/19 at 2000, Work with | | | [...] | | | | | | | Fri05/19/19 at 1932, Per | | | | [...] Anxiety, Other, | | | agitation, Starting Fri05/19/19 | | | at 1501 | | [...] | 05/21/20 | 1 patch | | Arm-Rig | | 1 patch 1 patch, Transdermal, [...] PST | | | | | ONCE, 05/17/19 at 2335, For 1 | | [...] HOURS PRN, Agitation, | | | Starting [facility] 05/20/19 at 0913, | | | Reproductive [...]
--- OUTSIDE RECORDS SUMMARY | ~2019-11-30 | XMS | Encounter Summary ---
Demographics + + + | Address | [address] | | | [place] [address] | + + + | Home Phone | | + + + | Preferred Language | Unknown | + + + | Marital Status | Single | + + + | Lutheran Affiliation | 1001 | + + + | Race | Unknown | + + + | Ethnic Group | Unknown | + + + Author + + + | Author | [facility] | | | and Ryana | + + + | Organization | [facility] | | [...] Team Providers + +------+ + | Care Shuttle Repairer Name | Role | Phone | + +------+ + PCP | Unavailable | + +------+ + Encounter Details +--------+ + + + + | Date | Type | Department | Care Team | Description | +--------+ + + + + | 05/01/ | [facility] | [place] | Abhi Berger | | | 2003 | Encounter | FAMILY MEDICINE [address] | MD [address] | | | | | [address] | [place], [place] | | | | | [place] [address] | [address] | | | | | [phone] | | | +--------+ + + + [...]
--- OUTSIDE RECORDS SUMMARY | ~2019-11-30 | XMS | Encounter Summary ---
Demographics + + + | Address | [address] | | | [place] [address] | + + + | Home Phone [...] Team Providers + +------+ + | Care Child Development Professor Name | Role | Phone | + +------+ + PCP | Unavailable | + +------+ + Encounter Details +--------+ + + + + | Date | Type | Department | Care Team | Description | +--------+ + + + + | 08/23/ | Hospital | [facility] | Shivam Bustos MD | | | 2003 | Encounter | H[facility] [address] [place] [address] | [address] [place] | | | | | [place], [place] | FAMILY MEDICINE | | | | | [address] | [place] [address] | | | | | [phone] | | | +--------+ + + + [...]
--- OUTSIDE RECORDS SUMMARY | ~2019-11-30 | XMS | Encounter Summary ---
Demographics + + + | Address | [address] | | | [place] [address] | + + + | Home Phone | | + + + | Preferred Language | Unknown | + + + | Marital Status | Single | + + + | Synagogue Affiliation | 1001 | + + + | Race | Unknown | + + + | Ethnic Group | Unknown | + + + Author + + + | Author | [facility] | | | and Ryana | + + + | Organization | [facility] | | | [...] Team Providers + +------+ + | Care Woods Superintendent Name | Role | Phone | + [...] [place] | | | | | | [place] | | | | | | [address] | | | | | | [phone] | | | +--------+ + + + [...] | [address] | [place] | [phone] | | [facility] | | [address] | | | - LABORATORY | | | | + + + + + documented in this encounter Visit Diagnoses Not on filedocumented in this encounter"
--- OUTSIDE RECORDS SUMMARY | ~2019-11-30 | XMS | Encounter Summary ---
Demographics + + + | Address | [address] | | | [place] [address] | + + + | Home Phone | | + + + | Preferred Language | Unknown | + + + | Marital Status | Single | + + + | Oriental Orthodox Affiliation | 1001 | + + [...] Team Providers + +------+ + | Care Kiln Loader Name | Role | Phone | + +------+ + PCP | Unavailable | + +------+ + Encounter Details +--------+ + + + + | Date | Type | Department | Care Team | Description | +--------+ + + + + | 03/05/ | [facility] | [place] | Abhi Berger | | | 2003 | Encounter | FAMILY MEDICINE 120 | MD [address] | | | | | [address] | [place], [place] | | | | | [place] [address] | [address] | | | | | [phone] | | | +--------+ + + + [...]
--- OUTSIDE RECORDS SUMMARY | ~2019-11-30 | XMS | Encounter Summary ---
Demographics + + + | Address | [address] | | | [place] [address] | + + + | Home Phone | | + + + | Preferred Language | Unknown | + + + | Marital Status | Single | + + + | Latter-Day Affiliation | 1001 | + + + | Race | Unknown | + + + | Ethnic Group | Unknown | + + + Author + + + | Author | [facility] | | | and Ryana | + + + | Organization | [facility] | | | and [...] Team Providers + +------+ + | Care Management Services Technician Name | Role | Phone | + [...] | | | | | ([facility]) | | | +--------+--------+ + + + + Encounter Details +--------+ + + + + | Date | Type | Department | Care Team | Description | +--------+ + + + + | 05/01/ | Hospital | [facility] | Venkatesh Gomez, | Diabetic | | 2017 - | Encounter | MED CTR SURGICAL | [address] | ketoacidosis without | | | | [address] [place] | [facility] [place] | coma associated | | 05/03/ | | [place] [address] | [place] [address] | with type 1 diabetes | | 2016 | | [phone] | [phone] | mellitus (HCC) | | | | | | (Primary Dx) | | | | | Juanjose Ross MD | | | | | | [address] | | | | | | [place], [place] | | | | | | [address] | | | | | | | | | | | | Kevin Gifford MD | | | | | | [address] | | | | | | [place], [place] | | | | | | [address] | | | | | | | [...] might be different fro m the original. [place] HOSPITALIST DISCHARGE SUMMARY Pt. Name/Age/: Joni [...] [facility] has haydee garcia living at [facility] past month and not have his glucometer [...] here (at least 50 needles) [facility] Most recent weight: Input and output for [...] signed by: Kevin Gifford MD, 05/03/2017 11:48 [facility] Reference. This is NOT part of [...] this chart may have been created with [employer] voice recognition software. Occasi onal wrong-word or [...] cannot be sent through Care Everywhere.Diabetes, Diet (Senegalese)Diabetes, General Information (Senegalese)Diabetes, Healthy Meals for (Senegalese)Diabete s, Meal Planning (Senegalese)Diabetes: Shopping for and Preparing Meals (Senegalese)documented in this encounter Medications at Time of [...] might be different fro m the original. [facility] HOSPITALIST PROGRESS NOTE Patient: Joni Kwon : 1980: Age: 36 y.o. MedRec: [id number] PCP: DENIS Paul Admission date: 05/01/2017 Hospital [...] mg Nebulization RT 4X DAILY PRN [facility] Ross MD 2.5 mg at 05/02/17 1955 [...] for input(s): IRON, TIBC, PCTSAT, FERRITIN, TSH, NXRCTUTG25, FOLATE in the last 168 hours. Inflammatory [...] 57.1* HCO3 21.8 TCO2 22.9 BEART -3.0* [id number] 89* Drug of overdose and abuse Recent [...] Procedure Component Value Units Date/Time Culture, MRSA [[id number]] Collected: 05/02/17 0202 Order Status: Completed Lab [...] [facility] has haydee garcia living at [facility] past month and not have his glucometer [...] here (at least 50 needles) [facility] at [facility] (dot meyaddendum tdnorefesh nownorefresh) (timothy meytime meycritical meysign) Kevin Gifford MD 05/03/2017 11:27 [facility] Reference. This is NOT part of [...] this chart may have been created with [employer] voice recognition software. Occasi onal wrong-word or sound-alike substitutions may have occurred due to the inherent renee itations of voice recognition software. Please read the chart carefully and recognize, using context, where these substitutions have occurred olCody dozier [facility] - 05/02/2017 4:32 PM PST [...] directions X Pharmacy list names: [facility], [facility] X Care Everywhere X Outside Information Vaccines [...] Prior to Admission Sig: Patient taking differently GLYCERIN SUPERVISOR as: Insulin Lispro 100 units/mL inj 5 units under the skin three times daily -Unable to verify sliding scale 3 units under the skin three times daily -Patient has no fill history within t he last 4 months Medication review performed and electronically signed by Lawanda Owen [place] Deputy 16:19 Electronically signed by: Cody Lawler Wesley 05/02/2017 16:31 Kevin Colon MD - 05/02/2017 6:47 AM PST [facility] [place] HOSPITALIST PROGRESS NOTE Patient: Joni Kwon : 1980: Age: 36 y.o. MedRec: [id number] PCP: DENIS Paul Admission date: 05/01/2017 Hospital [...] for input(s): IRON, TIBC, PCTSAT, FERRITIN, TSH, [id number], FOLATE in the last 168 hours. Inflammatory [...] 57.1* HCO3 21.8 TCO2 22.9 BEART -3.0* [id number] 89* Drug of overdose and abuse Recent [...] Procedure Component Value Units Date/Time Culture, MRSA [[id number]] Collected: 05/02/17 020 Order Status: Sent Lab [...] [facility] has b eetyler living at [facility] past month and not have his glucometer [...] his pens uses [facility] (dot meyaddendum tdnorefesh nownorefresh) (dot meytime meycritical meysign) Kevin Gifford MD 05/02/2017 6:48 [facility] Reference. This is NOT part of [...] this chart may have been created with [employer] recognition software. Occasi onal wrong-word or sound-alike [...] J?MRN: | | | | | | [id number] | | | [id number] | | | his | | | [...] | | | St. | | | [place] | | | y | | | [...] | | | St. | | | [place] | | | y | | | [...] | | | St. | | | [place] | | | y H. | | [...] | | | St. | | | [place] | | | y H. | | [...] | | | St. | | | [place] | | | y H. | | [...] | | | St. | | | [place] | | | y H. | | [...] | | | St. | | | [place] | | | y H. | | [...] | | | St. | | | [place] | | | y | | | [...] | | | ext. | | | [id number] | | | or go | | [...] + | [facility] | [address] | [place] | [phone] | | [facility] | | [address] | | | - LABORATORY | | | | + + + + + CBC no Differential (05/03/2017 6:45 AM PST) + + + + + + | Component | Value | Ref Range | Performed | Pathologist | | | | | At | Signature | + + + + + + | WBC | 5.2 | 4.0 - 11.0 K/uL | [facility] | | | | | | ST. [...] ST. | [address] | [place] | [phone] | | [facility] | | [address] | | | - LABORATORY | | [...] 8 | 7 - 18 mg/dL | [facility] | | | | | | [facility] | | | | | | MEDICAL | | | | | | CENTER - | | | | | | LABORATORY | | + + + + + + | Creatinine | 0.71 | 0.60 - 1.30 | [facility] | | | | | mg/dL | [facility] | | | | | | MEDICAL | | | | | | CENTER - | | | | | | LABORATORY | | + + + + + + | eGFR if not | >60Comment: GLOMERULAR | >=60 | [facility] | | | | FILTRATION | mL/min/1.73m2 | [facility] | | | [place] | RATE,ESTIMATED | | MEDICAL | | | | mL/min/1.76w8Fbkl than | | CENTER - | | [...] + | [facility] | [address] | [place] | [phone] | | [facility] | | [address] | | | - LABORATORY | | [...] + | [facility] | [address] | [place] | [phone] | | [facility] | | [address] | | | - LABORATORY | | [...] [address] | [place] | [phone] | | [facility] | | [address] | | | - LABORATORY | | [...] + | [facility] | [address] | [place] | [phone] | | [facility] | | [address] | | | - LABORATORY | | [...] [address] | [place] | [phone] | | [facility] | | [address] | | | - LABORATORY | | [address] | [place] | [phone] | | [facility] | | [address] | | | - LABORATORY | | [...] + | [facility] | [address] | [place] | [phone] | | [facility] | | [address] | | | - LABORATORY | | [...] [address] | [place] | [phone] | | [facility] | | [address] | | | - LABORATORY | | [...] | | | FILTRATION | mL/min/1.73m2 | [facility] | | | [place] | RATE,ESTIMATED | | MEDICAL | | | | mL/min/1.11o1Csok than | | CENTER - | | [...] | | | | | mg/dL | [facility] | | | | | | [...] [address] | [place] | [phone] | | [facility] | | [address] | | | - LABORATORY | | [address] | [place] | [phone] | | [facility] | | [address] | | | - LABORATORY | | [...] [address] | [place] | [phone] | | [facility] | | [address] | | | - LABORATORY | | [...] + | [facility] | [address] | [place] | [phone] | | [facility] | | [address] | | | - LABORATORY | | [...] + | [facility] | [address] | [place] | [phone] | | [facility] | | [address] | | | - LABORATORY | | [...] mL/min/1.73m2 | [facility] | | | [place] | RATE,ESTIMATED | | MEDICAL | | | | mL/min/1.85b9Wsrp than | | CENTER - | | [...] ST. | [address] | [place], [place] | [phone] | | [facility] | | [address] | | | - LABORATORY | | [...] [address] | [place] | [phone] | | [facility] | | [address] | | | - LABORATORY | | [...] + | [facility] | [address] | [place] | [phone] | | [facility] | | [address] | | | - LABORATORY | | [address] | [place] | [phone] | | [facility] | | [address] | | | - LABORATORY | | [...] - 1.030 | [facility] | | | Juana Diaz, | | | [facility] | | [...] | | Urine | | | [facility] | | | | | | [...] [address] | [place] | [phone] | | [facility] | | [address] | | | - LABORATORY | | [...] + | [facility] | [address] | [place] | [phone] | | [facility] | | [address] | | | - LABORATORY | | [address] | [place] | [phone] | | [facility] | | [address] | | | - LABORATORY | | [...] + | [facility] | [address] | [place] | [phone] | | [facility] | | [address] | | | - LABORATORY | | [...] + | [facility] | [address] | [place] | [phone] | | [facility] | | [address] | | | - LABORATORY | | [...] mL/min/1.73m2 | [facility] | | | [place] | RATE,ESTIMATED | | MEDICAL | | | | mL/min/1.77x0Ovbl than | | CENTER - | | [...] | 9.4 | 8.3 - 10.5 | [facility] | | | | | mg/dL | [facility] | | | | | | MEDICAL | | | | | | CENTER - | | | | | | LABORATORY | | + + + + + + | Albumin | 3.9 | 3.2 - 5.0 g/dL | [facility] | | | | | | Paula [...] [address] | [place] | [phone] | | [facility] | | [address] | | | - LABORATORY | | [...] | | | | g/dL | [facility] | | | | [...] [address] | [place] | [phone] | | [facility] | | [address] | | | - LABORATORY | | [...] [address] | [place] | [phone] | | [facility] | | [address] | | | - LABORATORY | | [...] | | | | | | | [phone] Use NIGHT DOSE for | | | | | | | doses scheduled: HS, 3AM, | | | | | | | Nighttime 2199-8114, | | | | | | + [...] | | | | | | | 6212-3754 Use NIGHT DOSE for | | | | | | | doses scheduled: HS, 3AM, | | | | | | | Nighttime 7122-9361, | | | | | | + [...] | | | | | NPO, Daytime 5552-5271 Use NIGHT | | | | | | | DOSE for doses scheduled: | | | | | | | HS, 3AM, Nighttime 6242-7110, | | | | | | + [...] | insulin lispro (humaLOG | Given | 11/10/20 | 3 Units | | Arm-Left | [...] PST | | | | | Starting [facility] 05/01/17 at 2254, For | | [...] PM PST | | | | | [facility] 05/01/17 at 2300, For 1 dose | [...]
--- OUTSIDE RECORDS SUMMARY | ~2019-11-30 | XMS | Encounter Summary ---
Demographics + + + | Address | [address] | | | [place] [address] | + + + | Home Phone | | + + + | Preferred Language | Unknown | + + + | Marital Status | Single | + + + | Zoroastrian Affiliation | 1001 | + + + [...] Team Providers + +------+ + | Care Swage Toolsetter Name | Role | Phone | + +------+ + PCP | Unavailable | + +------+ + Encounter Details +--------+ + + + + | Date | Type | Department | Care Team | Description | +--------+ + + + + | 03/30/ | Hospital | [facility] | Brooke Kemp | | | 2008 | Encounter | HOSPITAL EMERGENCY | MD [address] | | | | | [place] [address] | [address], | | | | | [facility] [place], [place] | [place] [address] | | | | | [address] | [phone] | | | | | [phone] | | | +--------+ + + + [...]
--- OUTSIDE RECORDS SUMMARY | ~2019-11-30 | XMS | Encounter Summary ---
Demographics + + + | Address | [address] | | | [place] [address] | + + + | Home Phone | | + + + | Preferred Language | Unknown | + + + | Marital Status | Single | + + + | Spiritism Affiliation | 1001 | + + + | Race | Unknown | + + + | Ethnic Group | Unknown | + + + Author + + + | Author | [facility] | | | and Ryana | + + + | Organization | [facility] | | | [...] Team Providers + +------+ + | Care School Curriculum Developer Name | Role | Phone | + [...] + + | 06/20/ | Hospital | [facility] | ColemanSunilmelani Condon, | Diabetic | | 2016 - | Encounter | MED CTR ICU [address] | [address] | ketoacidosis without | | | | [place], | [place], [place] | coma associated | | 06/21/ | | [place] [address] | [address] | with other specified | | 2015 | | [phone] | | diabetes mellitus | | | | | Kevin Gifford MD | ([facility]) (Primary Dx); | | | | | [address] | Diabetic | | | | | [place] | ketoacidosis without | | | | | [address] | coma associated | | | | [...] days. 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 What changed: Another medication with the same name was removed. Continue taking this medi cation, and follow the directions you see here. aka: LANTUS Unchanged Medications Details aspirin 81 mg chewable tablet Take 81 mg by mouth Daily. MH-Grgrqikjrdmdn-Wkxkwdldwqqel 10-5-325 MG Caps Take 1 capsule by [...] signed by: Santino Blake MD, 06/21/2016 17:44 [facility] documented in this enc ounter Medications at [...] | | 0 | | | | MW-Uhteoqhsamqiz-Czk | mouth Daily as | | | [...] of this encounter Progress Notes Ayala Han, [facility] - 06/20/2016 9:53 PM PSTFormatting of this note might be different fro m the original. PHARMACY SERVICES: ADMISSION MEDICATION REVIEW Joni Kwon is a 35 y.o. male admitted on 06/20/2016. Patient is not a reliable historian. Patient preferred pharmacies closed. Med history techn rose will call 06/21/2016 @ 1021 to obtain current medication list and update COST ESTIMATING ENGINEER medicatio ns as necessary. Location of Patient [...] Prior to Admission Sig: Patient taking differently COST ESTIMATING ENGINEER as: Insulin Glargine 100 u/ml 15 units nightly 9 units in the morning and 6 units in the evenin g Medication added: Medication: Prior to Admission Sig: US-Avgkhcteaakle-Erkjkrgqdnkut 10-5-325 mg 1 cap daily as needed for sinus congestion Medication review performed and electronically signed by Luis Araujo Field Talent Qualification Specialist 06/20 21:44 Reviewed by Ayala Han [facility] 06/20/2016 21:53 documented in this en counter [...] [address] | [place] | [phone] | | [facility] | | [address] | | | - LABORATORY | | [...] 10 | 7 - 18 mg/dL | [facility] | | | | | | [facility] | | | | | | MEDICAL | | | | | | CENTER - | | | | | | LABORATORY | | + + + + + + | Creatinine | 0.65 | 0.60 - 1.30 | [facility] | | | | | mg/dL | [facility] | | | | | | MEDICAL | | | | | | CENTER - | | | | | | LABORATORY | | + + + + + + | eGFR if not | >60Comment: GLOMERULAR | >=60 | [facility] | | | | FILTRATION | mL/min/1.73m2 | [facility] | | | [place] | RATE,ESTIMATED | | MEDICAL | | | | mL/min/1.99u7Eaag than | | CENTER - | | [...] + | [facility] | [address] | [place] | [phone] | | [facility] | | [address] | | | - LABORATORY | | [...] ST. | [address] | [place], [place] | [phone] | | [facility] | | [address] | | | - LABORATORY | | [...] | | | FILTRATION | mL/min/1.73m2 | [facility] | | | [place] | RATE,ESTIMATED | | MEDICAL | | | | mL/min/1.71y5Qsyj than | | CENTER - | | [...] | | | | | mg/dL | [facility] | | | | [...] [address] | [place] | [phone] | | [facility] | | [address] | | | - LABORATORY | | [address] | [place] | [phone] | | [facility] | | [address] | | | - LABORATORY | | [...] ST. | [address] | [place], [place] | [phone] | | [facility] | | [address] | | | - LABORATORY | | [...] [address] | [place] | [phone] | | [facility] | | [address] | | | - LABORATORY | | [...] 14 | 7 - 18 mg/dL | [facility] | | | | | | [facility] | | | | | | MEDICAL | | | | | | CENTER - | | | | | | LABORATORY | | + + + + + + | Creatinine | 0.74 | 0.60 - 1.30 | [facility] | | | | | mg/dL | [facility] | | | | | | MEDICAL | | | | | | CENTER - | | | | | | LABORATORY | | + + + + + + | eGFR if not | >60Comment: GLOMERULAR | >=60 | [facility] | | | | FILTRATION | mL/min/1.73m2 | [facility] | | | [place] | RATE,ESTIMATED | | MEDICAL | | | | mL/min/1.46f8Nplk than | | CENTER - | | [...] ST. | [address] | [place], [place] | [phone] | | [facility] | | [address] | | | - LABORATORY | | [...] [address] | [place] | [phone] | | [facility] | | [address] | | | - LABORATORY | | [...] + | [facility] | [address] | [place] | [phone] | | [facility] | | [address] | | | - LABORATORY | | [...] + | [facility] | [address] | [place] | [phone] | | [facility] | | [address] | | | - LABORATORY | | [...] [address] | [place] | [phone] | | [facility] | | [address] | | | - LABORATORY | | [...] | 0.64 | 0.60 - 1.30 | [facility] | | | | | mg/dL | [facility] | | | | | | MEDICAL | | | | | | CENTER - | | | | | | LABORATORY | | + + + + + + | eGFR if not | >60Comment: GLOMERULAR | >=60 | [facility] | | | | FILTRATION | mL/min/1.73m2 | [facility] | | | [place] | RATE,ESTIMATED | | MEDICAL | | | | mL/min/1.60v7Pmcy than | | CENTER - | | [...] + | [facility] | [address] | [place] | [phone] | | [facility] | | [address] | | | - LABORATORY | | [...] Urine | | Yellow, Straw | [facility] | | | | | | [...] - 1.030 | [facility] | | | [place], | | | [facility] | | [...] | | Comment | Indicated | | [facility] | [...] ST. | [address] | [place], [place] | [phone] | | [facility] | | [address] | | | - LABORATORY | | [...] ST. | [address] | [place] | [phone] | | [facility] | | [address] | | | - LABORATORY | | [...] + | [facility] | [address] | [place] | [phone] | | [facility] | | [address] | | | - LABORATORY | | | | + + + + + Troponin I (06/20/2016 10:48 PM PST) + + + + + + | Component | Value | Ref Range | Performed | Pathologist | | | | | At | Signature | + + + + + + | Troponin I | <0.01Comment: Reference | <0.06 ng/mL | [facility] | | | | Ranges:0.00-0.06 = | [...] | | | | | | [employer] | | | | | [...] [address] | [place] | [phone] | | [facility] | | [address] | | | - LABORATORY | | | | + + + + + Phosphorus (06/20/2016 10:48 PM PST) + +---------+ + + + | Component | Value | Ref Range | Performed | Pathologist | | | | | At | Signature | + +---------+ + + + | Phosphorus | 2.2 (L) | 2.5 - 4.6 mg/dL | [facility] [...] | + + + + + | [facility] | [address] | [place] | [phone] | | [facility] | | [address] | | | - LABORATORY | | [...] + | [facility] | [address] | [place] | [phone] | | [facility] | | [address] | | | - LABORATORY | | [...] | | | | | mmol/L | [facility] | | | | | | MEDICAL | | | | | | CENTER - | | | | | | LABORATORY | | + + + + + + | K | 3.3 (L) | 3.5 - 5.1 | [facility] | | | | | mmol/L | [facility] | | | | [...] mL/min/1.73m2 | [facility] | | | [place] | RATE,ESTIMATED | | MEDICAL | | | | mL/min/1.92h1Xyyp than | | CENTER - | | [...] 8.0 (L) | 8.3 - 10.5 | [facility] | | | | | mg/dL | [facility] | | | | | | MEDICAL | | | | | | CENTER - | | | | | | LABORATORY | | + + + + + + | BUN/Creatin | 18.8 | | [facility] | | | ine [...] [address] | [place] | [phone] | | [facility] | | [address] | | | - LABORATORY | | | | + + + + + POC Glucose (06/20/2016 10:43 PM PST) + +---------+ + + + | Component | Value | Ref Range | Performed | Pathologist | | | | | At | Signature | + +---------+ + + + | Glucose, | 154 (H) | 70 - 150 mg/dL | [facility] | | | POC | | | [...] [address] | [place] | [phone] | | [facility] | | [address] | | | - LABORATORY | | [...] [address] | [place] | [phone] | | [facility] | | [address] | | | - LABORATORY | | [...] | | | | HAWA RUBIN MD ([id number]) | | | | | | on [...] + | [facility] | [address] | [place] | [phone] | | [facility] | | [address] | | | - LABORATORY | | [...] + | [facility] | [address] | [place] | [phone] | | [facility] | | [address] | | | - LABORATORY | | [...] + | [facility] | [address] | [place] | [phone] | | [facility] | | [address] | | | - LABORATORY | | [...] | 1.09 | 0.60 - 1.30 | [facility] | [...] | | | FILTRATION | mL/min/1.73m2 | . [facility] | | | [place] | RATE,ESTIMATED | | MEDICAL | | | | mL/min/1.28n4Eekq than | | CENTER - | | [...] + | [facility] | [address] | [place] | [phone] | | [facility] | | [address] | | | - LABORATORY | | [...] ST. | [address] | [place] | [phone] | | [facility] | | [address] | | | - LABORATORY | | [...] [address] | [place] | [phone] | | [facility] | | [address] | | | - LABORATORY | | [...] [address] | [place] | [phone] | | [facility] | | [address] | | | - LABORATORY | | [...] [address] | [place] | [phone] | | [facility] | | [id number] | | | - LABORATORY | | [...] [address] | [place] | [phone] | | [facility] | | [id number] | | | - LABORATORY | | [...] + | [facility] | [address] | [place] | [phone] | | [facility] | | [id number] | | | - LABORATORY | | [...] | | | PT's OWN MED. In [facility] patient | | | | | | | specific bin. RETURN TO PATIENT | | | | | | | AT DISCHARGE. Verified by | | | | | | | Pharmacist Lupe Tilley, [facility] | | | | | | | [...] | | | | | Intravenous, ONCE, [facility] 06/20/16 | | PM PST | | [...] | | | | | NPO, Daytime 2381-4181 Use NIGHT | | | | | | | DOSE for doses scheduled: | | | | | | | HS, 3AM, Nighttime [id number], | | | | | | + [...] PST | | | | | ONCE, [facility] 06/20/16 at 1940, For 1 | [...] PST | | | | | ONCE, [facility] 06/20/16 at 2050, For 1 | | [...] | | | | | CONTINUOUS, Starting [facility] 06/20/16 | | | | | | | at 2330 | | | | | | + +---------+ +---+-------+---+ +---------+ +---+-------+---+ | New Bag | 1230/20 | | 125 | | | | 16 12:25 | | mL/hr | | | | AM PST | | | | +---------+ +---+-------+---+ +---+---+ | | | +---+---+ documented in this encounter
--- OUTSIDE RECORDS SUMMARY | ~2019-11-30 | XMS | Encounter Summary ---
Demographics + + + | Address | [address] | | | [place] [address] | + + + | Home Phone | | + + + | Preferred Language | Unknown | + + + | Marital Status | Single | + + + | Mandaen Affiliation | 1001 | + + + | Race | Unknown | + + + | Ethnic Group | Unknown | + + + Author + + + | Author | [facility] | | | and [place] | + + + | Organization | [facility] | | | [...] Team Providers + +------+ + | Care Pharmacy Technician Infusion Name | Role | Phone | + +------+ + PCP | Unavailable | + +------+ + Encounter Details +--------+ + + + + | Date | Type | Department | Care Team | Description | +--------+ + + + + | 03/05/ | [facility] | [place] | Abhi Berger | | | 2003 | Encounter | FAM[facility]ICINE [address] | MD [address] | | | | | [address] | [place], [place] | | | | | [place] [address] | [address] | | | | | [phone] | | | +--------+ + + + [...]
--- OUTSIDE RECORDS SUMMARY | ~2019-11-30 | XMS | Encounter Summary ---
Demographics + + + | Address | [address] | | | [place] [address] | + + + | Home Phone | | + + + | Preferred Language | Unknown | + + + | Marital Status | Single | + + + | Congregation Affiliation | 1001 | + + + | Race | Unknown | + + + | Ethnic Group | Unknown | + + + Author + + + | Author | [facility] | | | and Ryana | + + + | Organization | [facility] | | [...] Team Providers + +------+ + | Care [employer] Mechanic Name | Role | Phone | + +------+ + PCP | Unavailable | + +------+ + Encounter Details +--------+ + + + + | Date | Type | Department | Care Team | Description | +--------+ + + + + | 02/05/ | Hospital | [facility] | Cody Kan | Diabetic | | 2016 - | Encounter | [facility] | Iglesia Mccall MD [address] | ketoacidosis without | | | | CARE [address]LO[address] | coma associated | | 02/07/ | | [address] | [place] [address] | with type 2 diabetes | | 2016 | | [place], [place] | [phone] | mellitus (HCC) | | | | [address] | | | | | | [phone] | | | +--------+ + + + [...] Discharge Summaries by Lanre Pan MD at 02/08/16935 Author: Lanre Pan MD Service: Hospitalist Author Type: Physician Filed: 02/08/16 1427 Date of Service: 02/08/16935 Status: Signed Winding Operator: Lanre Pan MD (Physician) Related Notes: Original Note by Lanre Pan MD (Physician) filed at 02/08/16 1015 [facility] Service: Hospitalist Discharge Summary Date [...] episodes of DKA, and recently moved to [place], [place]. The patient typically takes Lantus pens, though according to the patie nt he has not been storing them appropriately and may have left them out of the fridge for a prolonged period, and the patient indicates that he may have missed a few doses. He began f ling ill a few days prior to his admission. He was initially seen at [place] emergency department and diagnosed with diabetic ketoaci [...] to schedule appointment with the PCP in [place]. DISCHARGE DIAGNOSES 1. Diabetic ketoacidosis in a type 1 diabetic. 2. History of reported schizophrenia, stable. 3. History of tobaccoism. Patient was counseled on tobacco cessation. 4. Electrolyte imbalance, secondary to diabetic ketoacidosis treatment. Past Medical History Diagnosis Date Schizophrenia (HCC) 02/06/2016 Attention-deficit hyperactivity disorder, predominantly hyperactive type 02/06/2016 Depression 02/06/2016 Leukocytosis (leucocytosis) 02/06/2016 Diabetes mellitus type I ([facility]) History reviewed. No pertinent past surgical history. [...] on file. Follow up: Margarita Gonzales MD [address] [place] [address] follow up for diabetes Medication List CONTINUE [...] Progress Note by Rosario Ocampo RN at 02/08/161254 Author: Rosario Ocampo RN Service: (none) Author Type: Registered Nurse Filed: 02/08/161254 Date of Service: 02/08/161254 Status: Signed Winding Operator: Rosario Ocampo RN (Registered Nurse) Discharge instructions given, all questions answered, patient/toddler caregiver expresses understa nding. Prescriptions given. IV removed. VSS. Patient left ambulatory to a private residence with family onver danie Transaction, Provider Unknown - 02/08/2016 9:52 AM PDT Case Management by Rhea Kaiser RN at 02/08/16 0952 Author: Rhea Kaiser RN Service: (none) Author Type: Registered Nurse Filed: 02/08/16 1000 Date of Service: 02/08/16951 Status: Addendum Winding Operator: Rhea Kaiser RN (Registered Nurse) Related Notes: Original Note by Rhea Kaiser RN (Registered Nurse) filed at 02/08/16 0 955 Discharge Planning: CM contacted [facility] [place] [phone], staff noted Shilpi scott is assigned to his case, left VM message with call back number for counselor to contact CM . Discharge Planning: spoke to CM Shilpi Mirza return call, advised [facility] office will contac t patient this afternoon [...] Date of Service: 02/08/16 0640 Status: Signed Winding Operator: Gayle Gomez RN (Registered Nurse) No changes [...] Registered Nurse Filed: 02/07/161918 Date of Service: 08/17/16 1820 Status: Addendum Winding Operator: Aracelis Strong RN (Registered Nurse) Related Notes: [...] apologetic he did not call for b [employer] sugar check first. Post prandial sugar 298. 8 units insulin administered. Currently amb [facility]. Report given to ERIKA Araujo. Aracelis Strong RN onver danie Transaction, Provider Unknown - 02/07/2016 3:27 PM PDT Case Management by Rhea Kaiser RN at 02/07/16 1527 Author: Rhea Kaiser RN Service: (none) Author Type: Registered Nurse Filed: 02/07/16 3898 Date of Service: 02/07/16 1527 Status: Addendum Winding Operator: Rhea Kaiser RN (Registered Nurse) Related Notes: Original Note by Rhea Kaiser RN (Registered Nurse) filed at 02/07/16 1 527 02/07/16 6286 Discharge Planning Evaluation Admitting Diagnosis diabetic ketoacidosis without coma assoc w/ type I DM Readmission No Living Arrangements Alone Support Systems Parent Type of Residence Private residence Independent with ADL's Yes Independent with Mobility Yes Home Care Services No Caregiver after Discharge Other (comment) (spoke with patient and with mom Blossom [phone], patient resides with mom, sleeps on the couch, patient and mom would like patient to live in assisted living ) Mental Status Oriented Power of Municipal Court Magistrate No Anticipated Discharge Plan Post Acute Care [...] Home (CM will check for [facility] in [facility]) Met with: CM spoke with patient and patient mother (with pt permission) to discuss discharg e planning, Pt is a 35 y.o., male, whom arrived via life flight to [facility] from [facility] due to DKA. Patient with dx of DM type I, schizophrenia. Patient resided in [facility] for 5 years. Patient and patient mother Blossom [phone] would like leonardo ent to live independent of parent in [facility] or assisted living in [facility]. CM to contact Brody with [facility] in [place] for information concerning patient. Patient states he [...] care provider on file. Patient's insurance: Medicaid [facility] Coverage concerns: no Medication coverage/concerns: non compliant with DM I CBG and insulin use Community resources utilized / needed: patient is requesting assisted placement and help to get his life back on track Assistance in transportation: patient's mother will transport Blossom [phone] Identification of any specific education / training: ordered DM education Barriers to Discharge / Alternative housing needed: patient requests AF Anticipated DCP: patient will discharge to his mothers house. Rhea Eastmanhumzabelle Lanre Washington MD - 02/07/2016 10:01 AM PDT Progress Notes by Lanre Pan MD at 02/07/16 1001 Author: Lanre Pan MD Service: Hospitalist Author Type: Physician Filed: 02/07/16 1542 Date of Service: 02/07/16 1001 Status: Signed Winding Operator: Lanre Pan MD (Physician) [facility] Service: Hospitalist Progress Note Hospital Day: LOS: 1 day Post-Op Day: * No surgery found * SUBJECTIVE Patient Summary: admission H and P Dr. Kan:"The patient is a 35 y.o. male wi th significant past medical history of schizophrenia, patient states last admission to [facility] was 2 years ago, ADHD, depression, type I diabetes mellitus diagnos ed at age 4 according to the patient and about 3 episodes of admissions for DKA since he mov ed to [place]. Per Dr. Dunaway, [facility] emergency room the patient and had a couple of admissions of this year for DKA. Patient had been kicked out of the [place] had been smoking marijuan a which the patient admits. Had presented to [facility] emergency room today after a friend [...] elayed to me by Dr. Dunaway of [facility] ER, had about a week prior to admission and the patient has been laying in the [place] for the last 4 days during nothing she medications. Per mother the patient also had lost 100 pounds since october of this year. Patient was seen at the [facility] Emergency Department, was noted to be tachycardic and tachypneic I was told initially his heart rate was in the 120s, respiration was in the mid 20s, patient was refusing to answer questions or could not answer questions according to [facility] Department physician, labs showed he was in DKA, he was given 2 L of IV fluid bolus w sandra there, subsequently hospitalist and ICU attending was called at [facility] for a transfer of patient, Dr. Vega recommended giving the patient bicarbonate and potassium which was done , the patient was also in the process of being given 2 more liters of normal saline and was transferred at acute care floor in [facility]. By the time admitting hospitalist [...] we will transition off insulin drip over [facility] htime., Appreciate Dr. Gonzales input, Levemir [...] Dietitian Filed: 02/07/16 0941 Date of Service: 02/07/16939 Status: Signed Winding Operator: Darcy Niño RD (Registered Dietitian) 02/07/16 0931 [...] Estimated Energy Needs Total Energy Estimated Needs 9225-0527 kcal/day Method for Estimating Needs 25-30 kcal/kg [...] date 02/10/[address] onver danie Granados, Provider Unknown - 02/07/2016 6:01 AM PDT Nurse Progress Note by Gayle Gomez RN at 02/07/16 06 Author: Gayle Gomez RN Service: (none) Author Type: Registered Nurse Filed: 02/07/16604 Date of Service: 02/07/16600 Status: Signed Winding Operator: Gayle Gomez RN (Registered Nurse) No changes [...] Progress Note by Jace Yanez RN at 02/06/161621 Author: Jace Yanez RN Service: (none) Author Type: Registered Nurse Filed: 02/06/16 9177 Date of Service: 02/06/161621 Status: Signed Winding Operator: Jace Yanez RN (Registered Nurse) Pts mother, Blossom, came by hospital to see son and will head back to [place]. She stat es that pts schizophrenia started at age 19 or 20, and that pt often thinks he is other peop le (ie, TuPa), and often mixes fiction with reality. [facility] [place] [facility] the last 5 years, and has been in [place] since September. [facility] has been working to find him placement [...] safe placement. docume nted in this encounter Plan of Treatment Not [...] | | | Fingerstick | performed at [facility];[address] | | LAB | | | | [address];[place] | | | | | | [address] | | | | + + + [...] | | | Fingerstick | performed at [facility];[address] | | LAB | | | | [address];[place] | | | | | | [address] | | | | + + + [...] EXTERNAL | | | | performed at [facility], [address] | K/uL | LAB | | | | [address], | | | | | | [place] [address] | | | | + + + + + + | Red Blood | 3.53 (L)Comment: Testing | 4.20 - 5.70 | EXTERNAL | | | Cells | performed at [facility], [address] | M/uL | LAB | | | Counted | [address], | | | | | | [place] [address] | | | | + + + + + + | Hemoglobin | 11.5 (L)Comment: Testing | 13.2 - 17.0 | EXTERNAL | | | | performed at [facility], [address] | g/dL | LAB | | | | [address], | | | | | | [place] [address] | | | | + + + + + + | Hematocrit, | 32.3 (L)Comment: Testing | 39.0 - 50.0 % | EXTERNAL | | | POC | performed at [facility], [address] | | LAB | | | | [address], | | | | | | [place] [address] | | | | + + + + + + | MCV | 91.6Comment: Testing | 80.0 - 100.0 fl | EXTERNAL | | | | performed at [facility], [address] | | LAB | | | | [address], | | | | | | [place] [address] | | | | + + + + + + | MCH | 32.6Comment: Testing | 27.0 - 34.0 pg | EXTERNAL | | | | performed at [facility], [address] | | LAB | | | | [address], | | | | | | [place] [address] | | | | + + + + + + | MCHC | 35.6 (H)Comment: Testing | 32.0 - 35.5 | EXTERNAL | | | | performed at [facility], [address] | g/dL | LAB | | | | [address], | | | | | | [place] [address] | | | | + + + + + + | RDW-CV | 45.1Comment: Testing | 37 - 53 fl | EXTERNAL | | | | performed at [facility], [address] | | LAB | | | | [address], | | | | | | [place] [address] | | | | + + + + + + | Platelet | 218Comment: Testing | 150 - 400 K/uL | EXTERNAL | | | Count | performed at [facility], [address] | | LAB | | | Plasma | [address], | | | | | | [place] [address] | | | | + + + + + + | MPV | 7.6Comment: Testing | fl | EXTERNAL | | | | performed at [facility], [address] | | LAB | | | | [address], | | | | | | [place] [address] | | | | + + + [...] EXTERNAL | | | | performed at [facility], [address] | | LAB | | | | [address], | | | | | | [place] [address] | | | | + + + [...] EXTERNAL | | | | performed at [facility], [address] | | LAB | | | | [address], | | | | | | [place] [address] | | | | + + + [...] | | | | | [place] [address] | | | | + + + + + + | K | 3.2 (L)Comment: Testing | 3.5 - 4.9 | EXTERNAL | | | | performed at [facility], [address] | mmol/L | LAB | | | | [address], | | | | | | [place] [address] | | | | + + + + + + | Cl | 100Comment: Testing | 99 - 109 mmol/L | EXTERNAL | | | | performed at [facility], [address] | | LAB | | | | [address], | | | | | | [place], [place] [address] | | | | + + + + + + | CO2 | 22 (L)Comment: Testing | 23 - 32 mmol/L | EXTERNAL | | | | performed at [facility], [address] | | LAB | | | | [address], | | | | | | [place] [address] | | | | + + + + + + | Anion Gap | 14Comment: Testing | 5 - 20 mmol/L | EXTERNAL | | | | performed at [facility], [address] | | LAB | | | | [address], | | | | | | [place] [address] | | | | + + + + + + | Glucose, | 282 (H)Comment: Testing | 65 - 99 mg/dL | EXTERNAL | | | Fasting | performed at [facility], [address] | | LAB | | | | [address], | | | | | | [place] [address] | | | | + + + + + + | BUN | 15Comment: Testing | 8 - 25 mg/dL | EXTERNAL | | | | performed at [facility], [address] | | LAB | | | | [address], | | | | | | [place] [address] | | | | + + + + + + | Creatinine | 0.8Comment: Testing | 0.70 - 1.30 | EXTERNAL | | | | performed at [facility], [address] | mg/dL | LAB | | | | [address], | | | | | | [place] [address] | | | | + + + + + + | BUN/Creatin | 19Comment: Testing | | EXTERNAL | | | ine Ratio | performed at [facility], [address] | | LAB | | | | [address], | | | | | | [place] [address] | | | | + + + + + + | Calcium | 7.7 (L)Comment: Testing | 8.5 - 10.5 | EXTERNAL | | | | performed at [facility], [address] | mg/dL | LAB | | | | [address], | | | | | | [place] [address] | | | | + + + + + + | Protein, | 4.8 (L)Comment: Testing | 6.3 - 8.2 g/dL | EXTERNAL | | | Total | performed at [facility], [address] | | LAB | | | | [address], | | | | | | [place] [address] | | | | + + + + + + | Albumin | 2.3 (L)Comment: Testing | 3.6 - 5.0 g/dL | EXTERNAL | | | | performed at [facility], [address] | | LAB | | | | [address], | | | | | | [place] [address] | | | | + + + + + + | Globulin | 2.5Comment: Testing | 1.3 - 4.9 g/dL | EXTERNAL | | | | performed at [facility], [address] | | LAB | | | [address], | | | | | | [place] [address] | | | | + + + + + + | A/G Ratio | 0.9 (L)Comment: Testing | 1.0 - 2.4 | EXTERNAL | | | | performed at [facility], [address] | | LAB | | | | [address], | | | | | | [place] [address] | | | | + + + + + + | Bilirubin | 0.2Comment: Testing | 0.1 - 1.5 mg/dL | EXTERNAL | | | Total | performed at [facility], [address] | | LAB | | | | [address], | | | | | | [place] [address] | | | | + + + + + + | ALP, | 87Comment: Testing | 35 - 115 U/L | EXTERNAL | | | External | performed at [facility], [address] | | LAB | | | | [address], | | | | | | [place] [address] | | | | + + + + + + | AST | 15Comment: Testing | 10 - 45 U/L | EXTERNAL | | | | performed at [facility], [address] | | LAB | | | | [address], | | | | | | [place] [address] | | | | + + + + + + | ALT | 17Comment: Testing | 10 - 65 U/L | EXTERNAL | | | | performed at [facility], [address] | | LAB | | | | [address], | | | | | | [place] [address] | | | | + + + [...] | | | | | | [place] [address] | | | | + + + [...] | | | Fingerstick | performed at [facility];[address] | | LAB | | | | [address];[place] | | | | | | [address] | | | | + + + [...] EXTERNAL | | | | performed at [facility];[address] | | LAB | | | | [facility], [place] | | | | | | [address] | | | | + + + [...] EXTERNAL | | | | performed at [facility];[address] | | LAB | | | | [address];[place] | | | | | | [address] | | | | + + + [...] EXTERNAL | | | | performed at [facility];[address] | mmol/L | LAB | | | | [address];[place] | | | | | | [address] | | | | + + + + + + | K | 3.8Comment: Testing | 3.5 - 4.9 | EXTERNAL | | | | performed at [facility];[address] | mmol/L | LAB | | | | [address];[place] | | | | | | [address] | | | | + + + + + + | Cl | 99Comment: Testing | 99 - 109 mmol/L | EXTERNAL | | | | performed at [facility];[address] | | LAB | | | | [address];[place] | | | | | | [address] | | | | + + + + + + | CO2 | 21 (L)Comment: Testing | 23 - 32 mmol/L | EXTERNAL | | | | performed at [facility];[address] | | LAB | | | | [address];[place] | | | | | | [address] | | | | + + + + + + | Anion Gap | 13Comment: Testing | 5 - 20 mmol/L | EXTERNAL | | | | performed at [facility];[address] | | LAB | | | | [address];[place] | | | | | | [address] | | | | + + + + + + | Glucose, | 241 (H)Comment: Testing | 65 - 99 mg/dL | EXTERNAL | | | Fasting | performed at [facility];[address] | | LAB | | | | [address];[place] | | | | | | [address] | | | | + + + + + + | BUN | 10Comment: Testing | 8 - 25 mg/dL | EXTERNAL | | | | performed at [facility];[address] | | LAB | | | | [address];[place] | | | | | | [address] | | | | + + + + + + | Creatinine | 0.95Comment: Testing | 0.70 - 1.30 | EXTERNAL | | | | performed at [facility];[address] | mg/dL | LAB | | | | [address];[place] | | | | | | [address] | | | | + + + + + + | BUN/Creatin | 10Comment: Testing | | EXTERNAL | | | ine Ratio | performed at [facility];[address] | | LAB | | | | [address];[place] | | | | | | [address] | | | | + + + + + + | Calcium | 7.9 (L)Comment: Testing | 8.5 - 10.5 | EXTERNAL | | | | performed at [facility];[address] | mg/dL | LAB | | | | [address];[place] | | | | | | [address] | | | | + + + [...] | | | | | | at [facility];[address] [place] [address] | | | | | | [facility];[place] [address] | | | | + + + [...] | | | Fingerstick | performed at [facility];[address] | | LAB | | | | [address];[place], [place] | | | | | | [address] | | | | + + + [...] EXTERNAL | | | | performed at [facility];[address] | | LAB | | | | [address];[place] | | | | | | [address] | | | | + + + [...] LAB | | | | performed at [facility];[address] | | | | | [address];[place], [place] | | | | | | [address] | | | | + + + [...] EXTERNAL | | | | performed at [facility];[address] | mmol/L | LAB | | | | [address];[place] | | | | | | [address] | | | | + + + + + + | K | 3.8Comment: SLT | 3.5 - 4.9 | EXTERNAL | | | | HEMOLYSISTesting | mmol/L | LAB | | | | performed at [facility];[address] | | | | | | [address];[place] | | | | | | [address] | | | | + + + + + + | Cl | 102Comment: Testing | 99 - 109 mmol/L | EXTERNAL | | | | performed at [facility];[address] | | LAB | | | | [address];[place] | | | | | | [address] | | | | + + + + + + | CO2 | 20 (L)Comment: Testing | 23 - 32 mmol/L | EXTERNAL | | | | performed at [facility];[address] | | LAB | | | | [address];[place] | | | | | | [address] | | | | + + + + + + | Anion Gap | 12Comment: Testing | 5 - 20 mmol/L | EXTERNAL | | | | performed at [facility];[address] | | LAB | | | | [address];[place] | | | | | | [address] | | | | + + + + + + | Glucose, | 250 (H)Comment: Testing | 65 - 99 mg/dL | EXTERNAL | | | Fasting | performed at [facility];[address] | | LAB | | | | [address];[place] | | | | | | [address] | | | | + + + + + + | BUN | 8Comment: Testing | 8 - 25 mg/dL | EXTERNAL | | | | performed at [facility];[address] | | LAB | | | | [address];[place] | | | | | | [address] | | | | + + + + + + | Creatinine | 0.83Comment: Testing | 0.70 - 1.30 | EXTERNAL | | | | performed at [facility];[address] | mg/dL | LAB | | | | [address];[place] | | | | | | [address] | | | | + + + + + + | BUN/Creatin | 10Comment: Testing | | EXTERNAL | | | ine Ratio | performed at [facility];[address] | | LAB | | | | [address];[place] | | | | | | [address] | | | | + + + + + + | Calcium | 7.8 (L)Comment: Testing | 8.5 - 10.5 | EXTERNAL | | | | performed at [facility];[address] | mg/dL | LAB | | | | [address];[place], [place] | | | | | | [address] | | | | + + + [...] | | | | | | at [facility];[address];[place] [address] | | | | + + + [...] | | | Fingerstick | performed at [facility];[address] | | LAB | | | | [address];[place] | | | | | | [address] | | | | + + + [...] EXTERNAL | | | | performed at [facility];[address] | | LAB | | | | [address];[place], [place] | | | | | | [address] | | | | + + + [...] EXTERNAL | | | | performed at [facility] | | LAB | | | | [address] [facility];[place], [place] | | | | | | [address] | | | | + + + [...] EXTERNAL | | | | performed at [facility];888 | mmol/L | LAB | | | | [address];[place] | | | | | | [address] | | | | + + + + + + | K | 3.3 (L)Comment: Testing | 3.5 - 4.9 | EXTERNAL | | | | performed at [facility];[address] | mmol/L | LAB | | | | [address];[place] | | | | | | [address] | | | | + + + + + + | Cl | 106Comment: Testing | 99 - 109 mmol/L | EXTERNAL | | | | performed at [facility];[address] | | LAB | | | | [address];[place] | | | | | | [address] | | | | + + + + + + | CO2 | 16 (L)Comment: Testing | 23 - 32 mmol/L | EXTERNAL | | | | performed at [facility];[address] | | LAB | | | | [address];[place] | | | | | | [address] | | | | + + + + + + | Anion Gap | 14Comment: Testing | 5 - 20 mmol/L | EXTERNAL | | | | performed at [facility];[address] | | LAB | | | | [address];[place] | | | | | | [address] | | | | + + + + + + | Glucose, | 340 (H)Comment: Testing | 65 - 99 mg/dL | EXTERNAL | | | Fasting | performed at [facility];[address] | | LAB | | | | [address];[place] | | | | | | [address] | | | | + + + + + + | BUN | 7 (L)Comment: Testing | 8 - 25 mg/dL | EXTERNAL | | | | performed at [facility];[address] | | LAB | | | | [address];[place] | | | | | | [address] | | | | + + + + + + | Creatinine | 0.70Comment: Testing | 0.70 - 1.30 | EXTERNAL | | | | performed at [facility];[address] | mg/dL | LAB | | | | [address];[place] | | | | | | [address] | | | | + + + + + + | BUN/Creatin | 10Comment: Testing | | EXTERNAL | | | ine Ratio | performed at [facility];[address] | | LAB | | | | [address];[place] | | | | | | [address] | | | | + + + + + + | Calcium | 6.9 (L)Comment: Testing | 8.5 - 10.5 | EXTERNAL | | | | performed at [facility];888 | mg/dL | LAB | | | | [address];[place] | | | | | | [address] | | | | + + + [...] | | | | | | at [facility];[address];[place] [address] | | | | + + + [...] | | | Fingerstick | performed at [facility];888 | | LAB | | | | [address];[place], [place] | | | | | | [address] | | | | + + + [...] | | | Fingerstick | performed at [facility];888 | | LAB | | | | [address];[place] | | | | | | [address] | | | | + + + [...] | | | Fingerstick | performed at [facility];888 | | LAB | | | | [address];[place] | | | | | | [address] | | | | + + + [...] | | | Fingerstick | performed at [facility];888 | | LAB | | | | [address];[place] | | | | | | [address] | | | | + + + [...] EXTERNAL | | | | performed at [facility];[address] | | LAB | | | | [address];[place], [place] | | | | | | [address] | | | | + + + [...] EXTERNAL | | | | performed at [facility];888 | | LAB | | | | [address];[place] | | | | | | [address] | | | | + + + [...] EXTERNAL | | | | performed at [facility];888 | mmol/L | LAB | | | | [address];[place] | | | | | | [address] | | | | + + + + + + | K | 3.1 (L)Comment: Testing | 3.5 - 4.9 | EXTERNAL | | | | performed at [facility];888 | mmol/L | LAB | | | | [address];[place] | | | | | | [address] | | | | + + + + + + | Cl | 107Comment: Testing | 99 - 109 mmol/L | EXTERNAL | | | | performed at [facility];[address] | | LAB | | | | [address];[place] | | | | | | [address] | | | | + + + + + + | CO2 | 16 (L)Comment: Testing | 23 - 32 mmol/L | EXTERNAL | | | | performed at [facility];[address] | | LAB | | | | [address];[place] | | | | | | [address] | | | | + + + + + + | Anion Gap | 13Comment: Testing | 5 - 20 mmol/L | EXTERNAL | | | | performed at [facility];[address] | | LAB | | | | [address];[place] | | | | | | [address] | | | | + + + + + + | Glucose, | 173 (H)Comment: Testing | 65 - 99 mg/dL | EXTERNAL | | | Fasting | performed at [facility];[address] | | LAB | | | | [address];[place] | | | | | | [address] | | | | + + + + + + | BUN | 7 (L)Comment: Testing | 8 - 25 mg/dL | EXTERNAL | | | | performed at [facility];[address] | | LAB | | | | [address];[place] | | | | | | [address] | | | | + + + + + + | Creatinine | 0.63 (L)Comment: Testing | 0.70 - 1.30 | EXTERNAL | | | | performed at [facility];888 | mg/dL | LAB | | | | [address];[place] | | | | | | [address] | | | | + + + + + + | BUN/Creatin | 11Comment: Testing | | EXTERNAL | | | ine Ratio | performed at [facility];[address] | | LAB | | | | [address];[place] | | | | | | [address] | | | | + + + + + + | Calcium | 7.2 (L)Comment: Testing | 8.5 - 10.5 | EXTERNAL | | | | performed at [facility];888 | mg/dL | LAB | | | | [address] [facility];[place], [place] | | | | | | [address] | | | | + + + [...] | | | | | | at [facility];[address];[place] [address] | | | | + + + [...] | | | Fingerstick | performed at [facility] | | LAB | | | | [address];[place] | | | | | | [address] | | | | + + + [...] | | | Fingerstick | performed at [facility];[address] | | LAB | | | | [address];[place], [place] | | | | | | [address] | | | | + + + [...] | | | Fingerstick | performed at [facility];[address] | | LAB | | | | [address];[place] | | | | | | [address] | | | | + + + [...] + + | Historically converted procedure from [facility] Epic environment | EXTERNAL LAB | + + [...] | | | Fingerstick | performed at [facility];[address] | | LAB | | | | [address];[place], [place] | | | | | | [address] | | | | + + + [...] EXTERNAL | | | | performed at [facility], [address] | K/uL | LAB | | | | [address], | | | | | | [place] [address] | | | | + + + + + + | Red Blood | 3.17 (L)Comment: Testing | 4.20 - 5.70 | EXTERNAL | | | Cells | performed at [facility], [address] | M/uL | LAB | | | Counted | [address], | | | | | | [place] [address] | | | | + + + + + + | Hemoglobin | 10.2 (L)Comment: Testing | 13.2 - 17.0 | EXTERNAL | | | | performed at [facility], [address] | g/dL | LAB | | | | [address], | | | | | | [place] [address] | | | | + + + + + + | Hematocrit, | 29.6 (L)Comment: Testing | 39.0 - 50.0 % | EXTERNAL | | | POC | performed at [facility], [address] | | LAB | | | | [address], | | | | | | [place] [address] | | | | + + + + + + | MCV | 93.3Comment: Testing | 80.0 - 100.0 fl | EXTERNAL | | | | performed at [facility], [address] | | LAB | | | | [address], | | | | | | [place] [address] | | | | + + + + + + | MCH | 32.0Comment: Testing | 27.0 - 34.0 pg | EXTERNAL | | | | performed at [facility], [address] | | LAB | | | | [address], | | | | | | [place] [address] | | | | + + + + + + | MCHC | 34.3Comment: Testing | 32.0 - 35.5 | EXTERNAL | | | | performed at [facility], [address] | g/dL | LAB | | | | [address], | | | | | | [place] [address] | | | | + + + + + + | RDW-CV | 46.4Comment: Testing | 37 - 53 fl | EXTERNAL | | | | performed at [facility], [address] | | LAB | | | | [address], | | | | | | [place] [address] | | | | + + + + + + | Platelet | 209Comment: Testing | 150 - 400 K/uL | EXTERNAL | | | Count | performed at [facility], [address] | | LAB | | | Plasma | [address], | | | | | | [place] [address] | | | | + + + + + + | MPV | 7.5Comment: Testing | fl | EXTERNAL | | | | performed at [facility], [address] | | LAB | | | | [address], | | | | | | [place] [address] | | | | + + + + + + | Differentia | AUTOMATEDComment: | | EXTERNAL | | | l Type | Testing performed at | | LAB | | | | [facility], [address] | | | | | | [place] | | | | | | [address] | | | | + + + + + + | % Segmented | 78.26Comment: Testing | % | EXTERNAL | | | | performed at [facility], [address] | | LAB | | | Neutrophils | [address], | | | | | | [place] [address] | | | | + + + + + + | % | 14.07Comment: Testing | % | EXTERNAL | | | Lymphocytes | performed at [facility], [address] | | LAB | | | | [address], | | | | | | [place] [address] | | | | + + + + + + | % Monocytes | 6.80Comment: Testing | % | EXTERNAL | | | | performed at [facility], [address] | | LAB | | | | [address], | | | | | | [place] [address] | | | | + + + + + + | % | 0.69Comment: Testing | % | EXTERNAL | | | Eosinophils | performed at [facility], [address] | | LAB | | | | [address], | | | | | | [place] [address] | | | | + + + + + + | % Basophils | 0.18Comment: Testing | % | EXTERNAL | | | | performed at [facility], [address] | | LAB | | | | [address], | | | | | | [place] [address] | | | | + + + + + + | Absolute | 6.75Comment: Testing | 1.90 - 7.40 | EXTERNAL | | | Segmented | performed at [facility], [address] | K/uL | LAB | | | Neutrophils | [address], | | | | | | [place] [address] | | | | + + + + + + | Absolute | 1.21Comment: Testing | 1.00 - 3.90 | EXTERNAL | | | Lymphocytes | performed at [facility], [address] | K/uL | LAB | | | | [address], | | | | | | [place] [address] | | | | + + + + + + | Absolute | 0.59Comment: Testing | 0.00 - 0.80 | EXTERNAL | | | Monocytes | performed at [facility], [address] | K/uL | LAB | | | | [address], | | | | | | [place] [address] | | | | + + + + + + | Absolute | 0.06Comment: Testing | 0.00 - 0.50 | EXTERNAL | | | Eosinophils | performed at [facility], [address] | K/uL | LAB | | | | [address], | | | | | | [place] [address] | | | | + + + + + + | Absolute | 0.02Comment: Testing | 0.00 - 0.10 | EXTERNAL | | | Basophils | performed at [facility], [address] | K/uL | LAB | | | | [address], | | | | | | [place] [address] | | | | + + + [...] EXTERNAL | | | | performed at [facility];[address] | | LAB | | | | [address];[place], [place] | | | | | | [address] | | | | + + + [...] EXTERNAL | | | | performed at [facility] | | LAB | | | | [address] [facility];[place], [place] | | | | | | [address] | | | | + + + [...] EXTERNAL | | | | performed at [facility];888 | mmol/L | LAB | | | | [address];[place] | | | | | | [address] | | | | + + + + + + | K | 2.9 (L)Comment: Testing | 3.5 - 4.9 | EXTERNAL | | | | performed at [facility];888 | mmol/L | LAB | | | | [address];[place] | | | | | | [address] | | | | + + + + + + | Cl | 108Comment: Testing | 99 - 109 mmol/L | EXTERNAL | | | | performed at [facility];[address] | | LAB | | | | [address];[place] | | | | | | [address] | | | | + + + + + + | CO2 | 15 (L)Comment: Testing | 23 - 32 mmol/L | EXTERNAL | | | | performed at [facility];[address] | | LAB | | | | [address];[place] | | | | | | [address] | | | | + + + + + + | Anion Gap | 14Comment: Testing | 5 - 20 mmol/L | EXTERNAL | | | | performed at [facility];[address] | | LAB | | | | [address];[place] | | | | | | [address] | | | | + + + + + + | Glucose, | 197 (H)Comment: Testing | 65 - 99 mg/dL | EXTERNAL | | | Fasting | performed at [facility];[address] | | LAB | | | | [address];[place] | | | | | | [address] | | | | + + + + + + | BUN | 8Comment: Testing | 8 - 25 mg/dL | EXTERNAL | | | | performed at [facility];[address] | | LAB | | | | [address];[place] | | | | | | [address] | | | | + + + + + + | Creatinine | 0.64 (L)Comment: Testing | 0.70 - 1.30 | EXTERNAL | | | | performed at [facility];888 | mg/dL | LAB | | | | [address];[place] | | | | | | [address] | | | | + + + + + + | BUN/Creatin | 12Comment: Testing | | EXTERNAL | | | ine Ratio | performed at [facility];[address] | | LAB | | | | [address];[place] | | | | | | [address] | | | | + + + + + + | Calcium | 7.1 (L)Comment: Testing | 8.5 - 10.5 | EXTERNAL | | | | performed at [facility];888 | mg/dL | LAB | | | | [address];[place] | | | | | | [address] | | | | + + + [...] | | | | | | at [facility];[address];[place] [address] | | | | + + + [...] | | | Fingerstick | performed at [facility];[address] | | LAB | | | | [address];[place], [place] | | | | | | [address] | | | | + + + [...] | | | Fingerstick | performed at [facility];[address] | | LAB | | | | [address];[place] | | | | | | [address] | | | | + + + [...] | | | Fingerstick | performed at [facility];[address] | | LAB | | | | [address];[place] | | | | | | [address] | | | | + + + [...] | | | Fingerstick | performed at [facility] | | LAB | | | | [address];[place] | | | | | | [address] | | | | + + + [...] EXTERNAL | | | | performed at [facility];[address] | | LAB | | | | [address];[place], [place] | | | | | | [address] | | | | + + + [...] EXTERNAL | | | | performed at [facility];[address] | | LAB | | | | [address];[place], [place] | | | | | | [address] | | | | + + + [...] EXTERNAL | | | | performed at [facility];888 | mmol/L | LAB | | | | [address];[place] | | | | | | [address] | | | | + + + + + + | K | 3.0 (L)Comment: Testing | 3.5 - 4.9 | EXTERNAL | | | | performed at [facility];888 | mmol/L | LAB | | | | [address];[place] | | | | | | [address] | | | | + + + + + + | Cl | 108Comment: Testing | 99 - 109 mmol/L | EXTERNAL | | | | performed at [facility];[address] | | LAB | | | | [address];[place] | | | | | | [address] | | | | + + + + + + | CO2 | 14 (LL)Comment: CALLED | 23 - 32 mmol/L | EXTERNAL | | | | TO CODY Swain RN/CATHI AT | | LAB | | | | 0134 BY MWREAD BACK | | | | | | RESULTS VERIFIEDTesting | | | | | | performed at [facility];[address] | | | | | | [address];[place] | | | | | | [address] | | | | + + + + + + | Anion Gap | 14Comment: Testing | 5 - 20 mmol/L | EXTERNAL | | | | performed at [facility];[address] | | LAB | | | | [address];[place] | | | | | | [address] | | | | + + + + + + | Glucose, | 213 (H)Comment: Testing | 65 - 99 mg/dL | EXTERNAL | | | Fasting | performed at [facility];[address] | | LAB | | | | [address];[place] | | | | | | [address] | | | | + + + + + + | BUN | 10Comment: Testing | 8 - 25 mg/dL | EXTERNAL | | | | performed at [facility];[address] | | LAB | | | | [address];[place] | | | | | | [address] | | | | + + + + + + | Creatinine | 0.70Comment: Testing | 0.70 - 1.30 | EXTERNAL | | | | performed at [facility];888 | mg/dL | LAB | | | | [address];[place] | | | | | | [address] | | | | + + + + + + | BUN/Creatin | 14Comment: Testing | | EXTERNAL | | | ine Ratio | performed at [facility];888 | | LAB | | | | [address];[place] | | | | | | [address] | | | | + + + + + + | Calcium | 6.9 (L)Comment: Testing | 8.5 - 10.5 | EXTERNAL | | | | performed at [facility];888 | mg/dL | LAB | | | | [address];[place] | | | | | | [address] | | | | + + + [...] | | | | | | at [facility];[address] | | | | | | [address];[place] [address] | | | | + + + [...] | | | Fingerstick | performed at [facility];[address] | | LAB | | | | [address];[place], [place] | | | | | | [address] | | | | + + + [...] | | | Fingerstick | performed at [facility];888 | | LAB | | | | [address];[place] | | | | | | [address] | | | | + + + [...] | | | Fingerstick | performed at [facility];[address] | | LAB | | | | [address];[place], [place] | | | | | | [address] | | | | + + + [...] EXTERNAL | | | | performed at [facility] | | LAB | | | | [address];[place] | | | | | | [address] | | | | + + + [...] EXTERNAL | | | | performed at [facility];[address] | | LAB | | | | [address];[place], [place] | | | | | | [address] | | | | + + + [...] EXTERNAL | | | | performed at [facility];888 | mmol/L | LAB | | | | [address];[place] | | | | | | [address] | | | | + + + + + + | K | 3.3 (L)Comment: Testing | 3.5 - 4.9 | EXTERNAL | | | | performed at [facility];888 | mmol/L | LAB | | | | [address];[place] | | | | | | [address] | | | | + + + + + + | Cl | 111 (H)Comment: Testing | 99 - 109 mmol/L | EXTERNAL | | | | performed at [facility];[address] | | LAB | | | | [address];[place] | | | | | | [address] | | | | + + + + + + | CO2 | 16 (L)Comment: Testing | 23 - 32 mmol/L | EXTERNAL | | | | performed at [facility];[address] | | LAB | | | [address];[place] | | | | | | [address] | | | | + + + + + + | Anion Gap | 13Comment: Testing | 5 - 20 mmol/L | EXTERNAL | | | | performed at [facility];[address] | | LAB | | | [address];[place] | | | | | | [address] | | | | + + + + + + | Glucose, | 125 (H)Comment: Testing | 65 - 99 mg/dL | EXTERNAL | | | Fasting | performed at [facility];[address] | | LAB | | | | [address];[place] | | | | | | [address] | | | | + + + + + + | BUN | 10Comment: Testing | 8 - 25 mg/dL | EXTERNAL | | | | performed at [facility];[address] | | LAB | | | [address];[place] | | | | | | [address] | | | | + + + + + + | Creatinine | 0.82Comment: Testing | 0.70 - 1.30 | EXTERNAL | | | | performed at [facility];888 | mg/dL | LAB | | | | [address];[place] | | | | | | [address] | | | | + + + + + + | BUN/Creatin | 12Comment: Testing | | EXTERNAL | | | ine Ratio | performed at [facility];[address] | | LAB | | | | [address];[place] | | | | | | [address] | | | | + + + + + + | Calcium | 6.6 (L)Comment: Testing | 8.5 - 10.5 | EXTERNAL | | | | performed at [facility];888 | mg/dL | LAB | | | | [address];[place], [place] | | | | | | [address] | | | | + + + [...] | | | | | | at [facility];[address];[place] [address] | | | | + + + [...] | | | Fingerstick | performed at [facility];[address] | | LAB | | | | [address];[place] | | | | | | [address] | | | | + + + [...] | | | Fingerstick | performed at [facility];[address] | | LAB | | | | [address];[place], [place] | | | | | | [address] | | | | + + + [...] | | | Fingerstick | performed at [facility];[address] | | LAB | | | | [address];[place] | | | | | | [address] | | | | + + + [...] | | | Fingerstick | performed at [facility];[address] | | LAB | | | | [address];[place] | | | | | | [address] | | | | + + + [...] EXTERNAL | | | | performed at [facility];[address] | | LAB | | | | [address];[place] | | | | | | [address] | | | | + + + [...] EXTERNAL | | | | performed at [facility];[address] | | LAB | | | | [address];[place], [place] | | | | | | [address] | | | | + + + [...] | | LAB | | | | [facility] [address];[place] [address] | | | | + + + [...] EXTERNAL | | | | performed at [facility];888 | mmol/L | LAB | | | | [address];[place] | | | | | | [address] | | | | + + + + + + | K | 2.7 (LL)Comment: CALLED | 3.5 - 4.9 | EXTERNAL | | | | NURSING UNITREAD BACK | mmol/L | LAB | | | | RESULTS VERIFIEDIVAN K | | | | | | AT 1748 JGRTesting | | | | | | performed at [facility];[address] | | | | | | [address];[place] | | | | | | [address] | | | | + + + + + + | Cl | 110 (H)Comment: Testing | 99 - 109 mmol/L | EXTERNAL | | | | performed at [facility];[address] | | LAB | | | | [address];[place] | | | | | | [address] | | | | + + + + + + | CO2 | 15 (L)Comment: Testing | 23 - 32 mmol/L | EXTERNAL | | | | performed at [facility];[address] | | LAB | | | [address];[place] | | | | | | [address] | | | | + + + + + + | Anion Gap | 15Comment: Testing | 5 - 20 mmol/L | EXTERNAL | | | | performed at [facility];[address] | | LAB | | | [address];[place] | | | | | | [address] | | | | + + + + + + | Glucose, | 133 (H)Comment: Testing | 65 - 99 mg/dL | EXTERNAL | | | Fasting | performed at [facility];[address] | | LAB | | | | [address];[place] | | | | | | [address] | | | | + + + + + + | BUN | 14Comment: Testing | 8 - 25 mg/dL | EXTERNAL | | | | performed at [facility];[address] | | LAB | | | [address];[place] | | | | | | [address] | | | | + + + + + + | Creatinine | 0.92Comment: Testing | 0.70 - 1.30 | EXTERNAL | | | | performed at [facility];888 | mg/dL | LAB | | | | [address];[place] | | | | | | [address] | | | | + + + + + + | BUN/Creatin | 15Comment: Testing | | EXTERNAL | | | ine Ratio | performed at [facility];[address] | | LAB | | | | [address];[place] | | | | | | [address] | | | | + + + + + + | Calcium | 6.5 (L)Comment: Testing | 8.5 - 10.5 | EXTERNAL | | | | performed at [facility];888 | mg/dL | LAB | | | | [address];[place] | | | | | | [address] | | | | + + + [...] | | | | | | at [facility];[address] | | | | [address];[place] [address] | | | | + + + [...] | | | Fingerstick | performed at [facility];[address] | | LAB | | | | [address];[place], [place] | | | | | | [address] | | | | + + + [...] | | | Fingerstick | performed at [facility];[address] | | LAB | | | | [address];[place] | | | | | | [address] | | | | + + + [...] | | | Fingerstick | performed at [facility];[address] | | LAB | | | | [address];[place] | | | | | | [address] | | | | + + + [...] | | | Fingerstick | performed at [facility];[address] | | LAB | | | | [address];[place] | | | | | | [address] | | | | + + + [...] EXTERNAL | | | | performed at [facility];[address] | | LAB | | | | [address];[place], [place] | | | | | | [address] | | | | + + + [...] EXTERNAL | | | | performed at [facility];[address] | | LAB | | | | [address];[place] | | | | | | [address] | | | | + + + [...] | | LAB | | | | [facility];[address] [place] [address] | | | | | | Bl;[place] [address] | | | | + + + [...] EXTERNAL | | | | performed at [facility];888 | mmol/L | LAB | | | | [address];[place], [place] | | | | | | [address] | | | | + + + + + + | K | 3.1 (L)Comment: Testing | 3.5 - 4.9 | EXTERNAL | | | | performed at [facility];888 | mmol/L | LAB | | | | [address];[place] | | | | | | [address] | | | | + + + + + + | Cl | 113 (H)Comment: Testing | 99 - 109 mmol/L | EXTERNAL | | | | performed at [facility];[address] | | LAB | | | | [address];[place] | | | | | | [address] | | | | + + + + + + | CO2 | 7 (LL)Comment: RESULT | 23 - 32 mmol/L | EXTERNAL | | | | READ BACK BY:CHARLES [id number] | | LAB | | | | AT 1340.EAPTesting | | | | | | performed at [facility];[address] | | | | | | [address];[place] | | | | | | [address] | | | | + + + + + + | Anion Gap | 23 (H)Comment: Testing | 5 - 20 mmol/L | EXTERNAL | | | | performed at [facility];[address] | | LAB | | | | [address];[place] | | | | | | [address] | | | | + + + + + + | Glucose, | 206 (H)Comment: Testing | 65 - 99 mg/dL | EXTERNAL | | | Fasting | performed at [facility];[address] | | LAB | | | | [address];[place] | | | | | | [address] | | | | + + + + + + | BUN | 18Comment: Testing | 8 - 25 mg/dL | EXTERNAL | | | | performed at [facility];[address] | | LAB | | | | [address];[place] | | | | | | [address] | | | | + + + + + + | Creatinine | 0.84Comment: Testing | 0.70 - 1.30 | EXTERNAL | | | | performed at [facility];888 | mg/dL | LAB | | | | [address];[place] | | | | | | [address] | | | | + + + + + + | BUN/Creatin | 21Comment: Testing | | EXTERNAL | | | ine Ratio | performed at [facility];[address] | | LAB | | | | [address];[place] | | | | | | [address] | | | | + + + + + + | Calcium | 6.7 (L)Comment: Testing | 8.5 - 10.5 | EXTERNAL | | | | performed at [facility];888 | mg/dL | LAB | | | | [address];[place] | | | | | | [address] | | | | + + + [...] | | | | | | at [facility];[address] | | | | | | [address];[place] [address] | | | | + + + [...] | | | Fingerstick | performed at [facility];[address] | | LAB | | | | [address];[place] | | | | | | [address] | | | | + + + [...] | | | Fingerstick | performed at [facility];[address] | | LAB | | | | [address];[place] | | | | | | [address] | | | | + + + [...] EXTERNAL | | | | performed at [facility];[address] | | LAB | | | | [address];[place] | | | | | | [address] | | | | + + + [...] EXTERNAL | | | | performed at [facility];[address] | | LAB | | | | [address];[place], [place] | | | | | | [address] | | | | + + + [...] EXTERNAL | | | | performed at [facility];888 | mmol/L | LAB | | | | [address];[place] | | | | | | [address] | | | | + + + + + + | K | 3.0 (L)Comment: Testing | 3.5 - 4.9 | EXTERNAL | | | | performed at [facility];888 | mmol/L | LAB | | | | [address];[place] | | | | | | [address] | | | | + + + + + + | Cl | 113 (H)Comment: Testing | 99 - 109 mmol/L | EXTERNAL | | | | performed at [facility];888 | | LAB | | | | [address];[place] | | | | | | [address] | | | | + + + + + + | CO2 | 6 (LL)Comment: CALLED | 23 - 32 mmol/L | EXTERNAL | | | | RESULTSREAD BACK RESULTS | | LAB | | | | [id number]/KATIA Scott AT | | | | | | 1110 BY SALTesting | | | | | | performed at [facility];888 | | | | | | [address];[place] | | | | | | [address] | | | | + + + + + + | Anion Gap | 27 (H)Comment: Testing | 5 - 20 mmol/L | EXTERNAL | | | | performed at [facility];888 | | LAB | | | | [address];[place] | | | | | | [address] | | | | + + + + + + | Glucose, | 214 (H)Comment: Testing | 65 - 99 mg/dL | EXTERNAL | | | Fasting | performed at [facility];888 | | LAB | | | | [address];[place] | | | | | | [address] | | | | + + + + + + | BUN | 21Comment: Testing | 8 - 25 mg/dL | EXTERNAL | | | | performed at [facility];888 | | LAB | | | | [address];[place] | | | | | | [address] | | | | + + + + + + | Creatinine | 0.87Comment: Testing | 0.70 - 1.30 | EXTERNAL | | | | performed at [facility];888 | mg/dL | LAB | | | | [address];[place] | | | | | | [address] | | | | + + + + + + | BUN/Creatin | 24Comment: Testing | | EXTERNAL | | | ine Ratio | performed at [facility];888 | | LAB | | | | [address];[place] | | | | | | [address] | | | | + + + + + + | Calcium | 6.8 (L)Comment: Testing | 8.5 - 10.5 | EXTERNAL | | | | performed at [facility];888 | mg/dL | LAB | | | | [address];[place], [place] | | | | | | [address] | | | | + + + [...] | | | | | | at [facility];[address] [facility] | | | | | | [address]vd;[place] [address] | | | | + + + [...] | | | Fingerstick | performed at [facility];888 | | LAB | | | | [address];[place] | | | | | | [address] | | | | + + + [...] | | | Fingerstick | performed at [facility];888 | | LAB | | | | [address];[place], [place] | | | | | | [address] | | | | + + + [...] | | LAB | | | | [facility];[address] | | | | | | [facility];[place] [address] | | | | + + + [...] EXTERNAL | | | | performed at [facility];888 | K/uL | LAB | | | | [address];[place] | | | | | | [address] | | | | + + + + + + | Red Blood | 2.80 (L)Comment: Testing | 4.20 - 5.70 | EXTERNAL | | | Cells | performed at [facility];888 | M/uL | LAB | | | Counted | [address];[place] | | | | | | [address] | | | | + + + + + + | Hemoglobin | 9.1 (L)Comment: Testing | 13.2 - 17.0 | EXTERNAL | | | | performed at [facility];888 | g/dL | LAB | | | | [address];[place] | | | | | | [address] | | | | + + + + + + | Hematocrit, | 26.7 (L)Comment: Testing | 39.0 - 50.0 % | EXTERNAL | | | POC | performed at [facility];888 | | LAB | | | | [address];[place] | | | | | | [address] | | | | + + + + + + | MCV | 95.4Comment: Testing | 80.0 - 100.0 fl | EXTERNAL | | | | performed at [facility];888 | | LAB | | | | [address];[place] | | | | | | [address] | | | | + + + + + + | MCH | 32.3Comment: Testing | 27.0 - 34.0 pg | EXTERNAL | | | | performed at [facility];888 | | LAB | | | | [address];[place] | | | | | | [address] | | | | + + + + + + | MCHC | 33.9Comment: Testing | 32.0 - 35.5 | EXTERNAL | | | | performed at [facility];888 | g/dL | LAB | | | | [address];[place] | | | | | | [address] | | | | + + + + + + | RDW-CV | 47.3Comment: Testing | 37 - 53 fl | EXTERNAL | | | | performed at [facility];888 | | LAB | | | | [address];[place] | | | | | | [address] | | | | + + + + + + | Platelet | 190Comment: Testing | 150 - 400 K/uL | EXTERNAL | | | Count | performed at [facility];888 | | LAB | | | Plasma | [address];[place] | | | | | | [address] | | | | + + + + + + | MPV | 7.2Comment: Testing | fl | EXTERNAL | | | | performed at [facility];888 | | LAB | | | | [address];[place] | | | | | | [address] | | | | + + + + + + | Differentia | MANUALComment: Testing | | EXTERNAL | | | l Type | performed at [facility];888 | | LAB | | | | [address];[place] | | | | | | [address] | | | | + + + + + + | Segmented | 59Comment: Testing | % | EXTERNAL | | | Neutrophils | performed at [facility];888 | | LAB | | | Manual | [address];[place] | | | | | | [address] | | | | + + + + + + | % Bands | 24Comment: Testing | % | EXTERNAL | | | | performed at [facility];888 | | LAB | | | | [address];[place] | | | | | | [address] | | | | + + + + + + | % | 2Comment: Testing | % | EXTERNAL | | | Metamyelocy | performed at [facility];888 | | LAB | | | edilson | [address];[place] | | | | | | [address] | | | | + + + + + + | Lymphocytes | 12Comment: Testing | % | EXTERNAL | | | Manual | performed at [facility];888 | | LAB | | | | [address];[place] | | | | | | [address] | | | | + + + + + + | Monocytes | 3Comment: Testing | % | EXTERNAL | | | Manual | performed at [facility];888 | | LAB | | | | [address];[place] | | | | | | [address] | | | | + + + + + + | Absolute | 5.18Comment: Testing | 1.90 - 7.40 | EXTERNAL | | | Neutrophils | performed at [facility];888 | K/uL | LAB | | | | [address];[place] | | | | | | [address] | | | | + + + + + + | Bands | 2.10 (H)Comment: Testing | 0.00 - 0.20 | EXTERNAL | | | Manual | performed at [facility];888 | K/uL | LAB | | | | [address];[place] | | | | | | [address] | | | | + + + + + + | Absolute | 0.18 (H)Comment: Testing | K/uL | EXTERNAL | | | Metamyelocy | performed at [facility];888 | | LAB | | | ed[address] | [address];[place] | | | | | | [address] | | | | + + + + + + | Absolute | 1.05Comment: Testing | 1.00 - 3.90 | EXTERNAL | | | Lymphocytes | performed at [facility];888 | K/uL | LAB | | | | [address];[place] | | | | | | [address] | | | | + + + + + + | Absolute | 0.26Comment: Testing | 0.00 - 0.80 | EXTERNAL | | | Monocytes | performed at [facility];888 | K/uL | LAB | | | | [address];[place] | | | | | | [address] | | | | + + + + + + | Platelet | ADEQUATEComment: Testing | | EXTERNAL | | | Estimate | performed at [facility];888 | | LAB | | | | [address];[place] | | | | | | [address] | | | | + + + + + + | RBC | NORMALComment: Testing | | EXTERNAL | | | Morphology | performed at [facility];888 | | LAB | | | | [address];[place] | | | | | | [address] | | | | + + + [...] | | | | | performed at [facility];888 | | | | | | [facility];[place], [place] | | | | | | [address] | | | | + + + [...] | | | | | performed at [facility];888 | | | | | | [address];[place], [place] | | | | | | [address] | | | | + + + [...] | EXTERNAL | | | A1c | [place] Diabetes | | LAB | | | [...] | | | | | performed at [facility], [address] | | | | | [address] [facility], | | | | | | [place] [address] | | | | + + + [...] | | | | | performed at [facility], [address] | | | | | | [facility], | | | | | | [place] [address] | | | | + + + [...] | | | | | performed at [facility];888 | | | | | | [address];[place] | | | | | | [address] | | | | + + + + + + | K | 2.4 (LL)Comment: RESULT | 3.5 - 4.9 | EXTERNAL | | | | READ BACK BY:CHARLES Mackay6RP | mmol/L | LAB | | | | AT 1000.EAPPOOR QUALITY | | | | | | SPECIMEN FROM THE LINE | | | | | | DRAW, CHARGES CREDITED, | | | | | | PATIENT REDRAWN.Testing | | | | | | performed at [facility];888 | | | | | | [address];[place] | | | | | | [address] | | | | + + + [...] | | | | | performed at [facility];[address] | | | | | | [address];[place] | | | | | | [address] | | | | + + + [...] | | | | | performed at [facility];888 | | | | | | [address];[place] | | | | | | [address] | | | | + + + [...] | | | | | performed at [facility];888 | | | | [...] | | | | | performed at [facility];[address] | | | | | | [address];[place] | | | | | | [address] | | | | + + + [...] | | | | | performed at [facility];[address] | | | | | | [address];[place] | | | | | | [address] | | | | + + + + + + | BUN/Creatin | 26Comment: POOR QUALITY | | EXTERNAL | | | ine Ratio | SPECIMEN FROM THE LINE | | LAB | | | | DRAW, CHARGES CREDITED, | | | | | | PATIENT REDRAWN.Testing | | | | | | performed at [facility];888 | | | | | | [address];[place] | | | | | | [id number] ON 02/05 | | | | | [...] | | | | | | at [facility];[address] [place] [address] | | | | | | [facility];[place] [address] | | | | + + + [...] | | | Fingerstick | performed at [facility];888 | | LAB | | | | [address];[place], [place] | | | | | | [address] | | | | + + + [...]
--- OUTSIDE RECORDS SUMMARY | ~2019-11-30 | XMS | Encounter Summary ---
Demographics + + + | Address | [address] | | | [place] [address] | + + + | Home Phone | | + + + | Preferred Language | Unknown | + + + | Marital Status | Single | + + + | Hinduism Affiliation | 1001 | + + + | Race | Unknown | + + + | Ethnic Group | Unknown | + + + Author + + + | Author | [facility] | | | and Ryana | + + + | Organization | [facility] | | [...] Team Providers + +------+ + | Care Wood Tank Builder Name | Role | Phone | [...] | | | | | | | ([facility]) | | | +--------+--------+ + + + + Encounter Details +--------+ + + + + | Date | Type | Department | Care Team | Description | +--------+ + + + + | 05/01/ | Hospital | [facility] | Venkatesh Gomez, | Diabetic | | 2017 - | Encounter | MED CTR SURGICAL | [address] | ketoacidosis without | | | | [address] [place] | [facility] [place] | coma associated | | 05/03/ | | [place] [address] | [place] [address] | with type 1 diabetes | | 2016 | | [phone] | [phone] | mellitus (HCC) | | | | | | (Primary Dx) | | | | | Juanjose Ross MD | | | | | | [address] | | | | | | [place], [place] | | | | | | [address] | | | | | | | | | | | | Kevin Gifford MD | | | | | | [address] | | | | | | [place], [place] | | | | | | [address] | | | | | | | [...] might be different fro m the original. [place] HOSPITALIST DISCHARGE SUMMARY Pt. Name/Age/: Joni [...] [facility] has haydee garcia living at [facility] past month and not have his glucometer [...] here (at least 50 needles) [facility] at [facility] Most recent weight: Input and output for [...] signed by: Kevin Gifford MD, 05/03/2017 11:48 [facility] Reference. This is NOT part of [...] this chart may have been created with Yandex voice recognition software. Occasi onal wrong-word or [...] cannot be sent through Care Everywhere.Diabetes, Diet ([place]izen [place])Diabetes, General Information ([place]izen [place])Diabetes, Healthy Meals for ([place]izen [place])Diabete s, Meal Planning ([place]izen [place])Diabetes: Shopping for and Preparing Meals ([place]izen [place])documented in this encounter Medications at Time of [...] might be different fro m the original. [facility] [place] HOSPITALIST PROGRESS NOTE Patient: Joni Kwon : 1980: Age: 36 y.o. MedRec: [id number] PCP: DENIS Paul Admission date: 05/01/2017 Hospital [...] for input(s): IRON, TIBC, PCTSAT, FERRITIN, TSH, [id number], FOLATE in the last 168 hours. Inflammatory [...] 57.1* HCO3 21.8 TCO2 22.9 BEART -3.0* [id number] 89* Drug of overdose and abuse Recent [...] Procedure Component Value Units Date/Time Culture, MRSA [[id number]] Collected: 05/02/17 0202 Order Status: Completed Lab [...] [facility] has haydee garcia living at [facility] past month and not have his glucometer [...] here (at least 50 needles) [facility] at [facility] (dot meyaddendum tdnorefesh nownorefresh) (timothy meytime meycritical meysign) Kevin Gifford MD 05/03/2017 11:27 [facility] Reference. This is NOT part of [...] this chart may have been created with Yandex voice recognition software. Occasi onal wrong-word or sound-alike substitutions may have occurred due to the inherent renee itations of voice recognition software. Please read the chart carefully and recognize, using context, where these substitutions have occurred olCody dozier [facility] - 05/02/2017 4:32 PM PST PHARMACY SERVICES: [...] directions X Pharmacy list names: [facility] X Care Everywhere X Outside Information Vaccines [...] Prior to Admission Sig: Patient taking differently SPEECH LANGUAGE PATHOLOGIST TRAVEL as: Insulin Lispro 100 units/mL inj 5 units under the skin three times daily -Unable to verify sliding scale 3 units under the skin three times daily -Patient has no fill history within t he last 4 months Medication review performed and electronically signed by Lawanda Owen Application Developer Manager 16:19 Electronically signed by: Cody Lawler Wesley 05/02/2017 16:31 Kevin Colon MD - 05/02/2017 6:47 AM PST [facility] [place] HOSPITALIST PROGRESS NOTE Patient: Joni Kwon : 1980: Age: 36 y.o. MedRec: [id number] PCP: DENIS Paul Admission date: 05/01/2017 Hospital [...] for input(s): IRON, TIBC, PCTSAT, FERRITIN, TSH, [id number], FOLATE in the last 168 hours. Inflammatory [...] 57.1* HCO3 21.8 TCO2 22.9 BEART -3.0* [id number] 89* Drug of overdose and abuse Recent [...] Procedure Component Value Units Date/Time Culture, MRSA [[id number]] Collected: 05/02/17 020 Order Status: Sent Lab [...] [facility] has b eetyler living at [facility] past month and not have his glucometer [...] his pens uses [facility] at [facility] (dot meyaddendum tdnorefesh nownorefresh) (dot meytime meycritical meysign) Kevin Gifford MD 05/02/2017 6:48 [facility] Reference. This is NOT part of [...] this chart may have been created with Dreamscape Blue recognition software. Occasi onal wrong-word or sound-alike [...] J?MRN: | | | | | | [id number] | | | [id number] | | | his | | | [...] | | | St. | | | [place] | | | y | | | [...] | | | St. | | | [place] | | | y | | | [...] | | | St. | | | [place] | | | y H. | | [...] | | | St. | | | [place] | | | y H. | | [...] | | | St. | | | [place] | | | y H. | | [...] | | | St. | | | [place] | | | y H. | | [...] | | | St. | | | [place] | | | y H. | | [...] | | | St. | | | [place] | | | y | | | [...] | | | ext. | | | [address] | | | or go | | [...] + | [facility] | [address] | [place] | [phone] | | [facility] | | [address] | | | - LABORATORY | | [...] ST. | [address] | [place] | [phone] | | [facility] | | [address] | | | - LABORATORY | | [...] 8 | 7 - 18 mg/dL | [facility] | | | | | | [facility] | | | | | | MEDICAL | | | | | | CENTER - | | | | | | LABORATORY | | + + + + + + | Creatinine | 0.71 | 0.60 - 1.30 | [facility] | | | | | mg/dL | [facility] | | | | | | MEDICAL | | | | | | CENTER - | | | | | | LABORATORY | | + + + + + + | eGFR if not | >60Comment: GLOMERULAR | >=60 | [facility] | | | | FILTRATION | mL/min/1.73m2 | [facility] | | | NIGERIEN | RATE,ESTIMATED | | MEDICAL | | | | mL/min/1.84m3Dftl than | | CENTER - | | [...] + | [facility] | [address] | [place] | [phone] | | [facility] | | [address] | | | - LABORATORY | | [...] + | [facility] | [address] | [place] | [phone] | | [facility] | | [address] | | | - LABORATORY | | [...] [address] | [place] | [phone] | | [facility] | | [address] | | | - LABORATORY | | [...] + | [facility] | [address] | [place] | [phone] | | [facility] | | [address] | | | - LABORATORY | | [...] [address] | [place] | [phone] | | [facility] | | [address] | | | - LABORATORY | | [...] [address] | [place] | [phone] | | [facility] | | [address] | | | - LABORATORY | | | | + + + + + POC Glucose (05/02/2017 5:04 AM PST) + +---------+ + + + | Component | Value | Ref Range | Performed | Pathologist | | | | | At | Signature | + +---------+ + + + | Glucose, | 208 (H) | 70 - 109 mg/dL | [facility] | | | POC | | | [...] + | [facility] | [address] | [place] | [phone] | | [facility] | | [address] | | | - LABORATORY | | [...] [address] | [place] | [phone] | | [facility] | | [address] | | | - LABORATORY | | [...] | | | FILTRATION | mL/min/1.73m2 | [facility] | | | NIGERIEN | RATE,ESTIMATED | | MEDICAL | | | | mL/min/1.57y7Cdzd than | | CENTER - | | [...] | | | | | mg/dL | [facility] | | | | | [...] [address] | [place] | [phone] | | [facility] | | [address] | | | - LABORATORY | | [...] [address] | [place] | [phone] | | [facility] | | [address] | | | - LABORATORY | | [...] [address] | [place] | [phone] | | [facility] | | [address] | | | - LABORATORY | | [...] + | [facility] | [address] | [place] | [phone] | | [facility] | | [address] | | | - LABORATORY | | [...] + | [facility] | [address] | [place] | [phone] | | [facility] | | [address] | | | - LABORATORY | | [...] mL/min/1.73m2 | [facility] | | | NIGERIEN | RATE,ESTIMATED | | MEDICAL | | | | mL/min/1.28x7Xlto than | | CENTER - | | [...] ST. | [address] | [place], [place] | [phone] | | [facility] | | [address] | | | - LABORATORY | | [...] [address] | [place] | [phone] | | [facility] | | [address] | | | - LABORATORY | | [...] + | [facility] | [address] | [place] | [phone] | | [facility] | | [address] | | | - LABORATORY | | [...] [address] | [place] | [phone] | | [facility] | | [address] | | | - LABORATORY | | [...] - 1.030 | [facility] | | | [place], | | | [facility] | | [...] | | Urine | | | [facility] | | | | | | [...] [address] | [place] | [phone] | | [facility] | | [address] | | | - LABORATORY | | [...] + | [facility] | [address] | [place] | [phone] | | [facility] | | [address] | | | - LABORATORY | | [...] [address] | [place] | [phone] | | [facility] | | [address] | | | - LABORATORY | | [...] + | [facility] | [address] | [place] | [phone] | | [facility] | | [address] | | | - LABORATORY | | [...] + | [facility] | [address] | [place] | [phone] | | [facility] | | [address] | | | - LABORATORY | | [...] mL/min/1.73m2 | [facility] | | | NIGERIEN | RATE,ESTIMATED | | MEDICAL | | | | mL/min/1.87x6Dthf than | | CENTER - | | [...] 3.9 | 3.2 - 5.0 g/dL | [facility] | | | | | | Paula [...] [address] | [place] | [phone] | | [facility] | | [address] | | | - LABORATORY | | [...] [address] | [place] | [phone] | | [facility] | | [address] | | | - LABORATORY | | [...] [address] | [place] | [phone] | | [facility] | | [address] | | | - LABORATORY | | [...] | | | | | | | 9963-0904 Use NIGHT DOSE for | | | | | | | doses scheduled: HS, 3AM, | | | | | | | Nighttime 8283-3194, | | | | | | + [...] | | | | | | | 3860-5645 Use NIGHT DOSE for | | | | | | | doses scheduled: HS, 3AM, | | | | | | | Nighttime 7158-0507, | | | | | | + [...] | | | | | NPO, Daytime 4847-6191 Use NIGHT | | | | | | | DOSE for doses scheduled: | | | | | | | HS, 3AM, Nighttime 8191-3481, | | | | | | + [...] PST | | | | | Starting [facility] 05/01/17 at 2254, For | | [...] PM PST | | | | | [facility] 05/01/17 at 2300, For 1 dose [...]
--- OUTSIDE RECORDS SUMMARY | ~2019-11-30 | XMS | Encounter Summary ---
Demographics + + + | Address | [address] | | | [place] [address] | + + + | Home Phone | | + + + | Preferred Language | Unknown | + + + | Marital Status | Single | + + + | Faith Affiliation | 1001 | + + + | Race | Unknown | + + + | Ethnic Group | Unknown | + + + Author + + + | Author | [facility] | | | and Ryana | + + + | Organization | [facility] | | | [...] Team Providers + +------+ + | Care Compensation Expert Name | Role | Phone | + [...] + + | 05/02/ | Education | SHRUTHIHILes[facility] ROJAS CLEMENTE | Ursula Haskins RN | Diabetic | | 2016 | | [facility] | [phone] | ketoacidosis without | | | | EDUCATION [address] | | coma associated | | | | [place], | | with type 1 diabetes | | | | [place] [address] | | mellitus (HCC) | | | | [phone] | | | +--------+ + + + [...]
--- OUTSIDE RECORDS SUMMARY | ~2019-11-30 | XMS | Encounter Summary ---
Demographics + + + | Address | [address] | | | [place] [address] | + + + | Home Phone [...] + + + | Author | [facility] | | | and Ryana | + + + | Organization | [facility] | | | [...] Team Providers + +------+ + | Care Principal Examiner Name | Role | Phone | + [...] | patient leaving | | | | [phone] | | prior to being seen | | | | [phone] | | by health care | | [...] | | | 2016 | | | 11:33 | | | [...] J?MRN: | | | | | | [id number] | | | [id number] | | | his | | | [...] | | | St[facility] | | | [place] | | | y | | | [...] | | | St. | | | [place] | | | y H. | | [...] | | | St[facility] | | | [place] | | | y H. | | [...] | | | St[facility] | | | [place] | | | y H. | | [...] | | | St. | | | [place] | | | y H. | | [...] | | | St. | | | [place] | | | y H. | | [...] | | | St. | | | [place] | | | y | | | [...] | | | ext. | | | [phone] | | | or go | | [...]
--- OUTSIDE RECORDS SUMMARY | ~2019-11-30 | XMS | Encounter Summary ---
Demographics + + + | Address | [address] | | | [place] [address] | + + + | Home Phone | | + + + | Preferred Language | Unknown | + + + | Marital Status | Single | + + + | Religion Affiliation | 1001 | + + + | Race | Unknown | + + + | Ethnic Group | Unknown | + + + Author + + + | Author | [facility] | | | and Ryana | + + + | Organization | [facility] | | | [...] Team Providers + +------+ + | Care Tool Filer Hand Name | Role | Phone | + [...] + + | 05/17/ | Hospital | [facility] | Alexis, | Schizophrenia, | | 2019 - | Encounter | [facility] | DO Benjamin [address] | unspecified type | | | | CARE [address] | [address] | (FORMERLY [facility]) (Primary Dx); | | 05/21/ | | [address] | [place] [address] | Acute psychosis | | 2019 | | [place], [place] | [phone] | (HCC); Marijuana | | | | [address] | | use; Nausea and | | | | [phone] | Tacos Brian MD | vomiting in adult; | | | | | [address] | Noncompliance with | | | | | [place], [place] | medication regimen; | | | | | [address] | Tobacco smoker | | | | | [phone] | within last 12 | | | | | | months; Type 1 | | | | | Tacos Paredes PA | diabetes mellitus | | | | | [address] | without complication | | | | | [place] [address] | (HCC); | | | | | [phone] | Schizoaffective | | | | | | disorder, bipolar | | | | | Hosea Watson, | type ([facility]); Acute | | | | | [address] [facility] | hyperkalemia | | | | | [place] [address] | | | | | | [phone] | | | | | | | | | | | | Cony Castillo, | | | | | | [address] [facility] | | | | | | [place] [address] | | | | | | [phone] | | | | | | | [...] might be different f rom the original. [facility] Service: Hospitalist Discharge Summary Date of [...] s morning. The patient was accepted to [facility] for further treatment. The patient still refuses to take his psychiatric medications. I spoke with Dr. Carrillo, who g raciously accepts the patient for the transfer. 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 Chew and tuck 1 piece every [...] to patient adilene stoner. Report given to [facility]. Security came and gave patient back his belongings. Patient sent ina john home with his mother. No other concerns noted. [facility] here to take patient to [facility]. Elisa Mendez RN 5:41 PM Elisa Marquez RN - 1 07/21/2018 5:15 PM PSTPatient's blood sugar 66. Waiting on food to arrive. Hamilton juice and vu crackers given. Patient's dinner arrived. [facility] here but needing to get blood sugar sta bilized before transport. Elisa Mendez RN 5:16 PM Elisa Marquez RN - 1 07/21/2018 2:20 PM PSTNurse from [facility] [place] called to get update on patient. Nurse [...] this note might be different from the [facility] Service: Hospitalist Progress Note [...] Kirkland MD - 05/20/2019 12:18 PM PST [facility] Service: Hospitalist Progress Note Hospital Day: [...] Kirkland MD - 05/19/2019 2:57 PM PST [facility] Service: Hospitalist Progress Note Hospital Day: [...] J?MRN: | | | | | | [id number] | | | [id number] | | | riteri | | | [...] | | | [facility] | | | [facility] | | | y | | | [...] | | | St. | | | [facility] | | | y | | | [...] | | | St. | | | [facility] | | | y | | | Hospit | | | al | | | Patien | | | t is | | | curren | | | tly | | | establ | | | ished | | | with | | | St | | | [facility] | | | y | | | [...] St | | | | | | [facility] | | | y | | | [...] | | | St. | | | [facility] | | | y | | | [...] | | | St. | | | [facility] | | | y H. | | [...] | | | St. | | | [facility] | | | y H. | | [...] | | | St. | | | [facility] | | | y H. | | [...] | | | St. | | | [facility] | | | y H. | | [...] | | | St. | | | [facility] | | | y H. | | [...] | | | St. | | | [facility] | | | y H. | | [...] | | | MD | | | Junior Sales Representative | | | al | | | [...] | | | [phone] | | | [id number] | | | 95 | | | [...] Testing | 65 - 99 mg/dL | [facility] | | | POC | performed at [facility];888 | | LABORATORY | | | | [address];[place] | | | | | | [address] | | | | + + + + + + + + | Specimen | + + | | + + + + + + + | Performing | Address | City/State/Zipcode | Phone Number | | Organization | | | | + + + + + | [facility] | [address] | [place] [address] | [phone] | + + + + + POC Glucose (05/21/2019 5:09 PM PST) + + + + + + | Component | Value | Ref Range | Performed | Pathologist | | | | | At | Signature | + + + + + + | Glucose, | 66Comment: Testing | 65 - 99 mg/dL | [facility] | | | POC | performed at [facility];888 | | LABORATORY | | | | [address];[place], [place] | | | | | | [address] | | | | + + + + + + + + | Specimen | + + | | + + + + + + + | Performing | Address | City/State/Zipcode | Phone Number | | Organization | | | | + + + + + | [facility] | [address] | [place] [address] | [phone] | + + + + + POC Glucose (05/21/2019 4:51 PM PST) + + + + + + | Component | Value | Ref Range | Performed | Pathologist | | | | | At | Signature | + + + + + + | Glucose, | 66Comment: Testing | 65 - 99 mg/dL | [facility] | | | POC | performed at [facility];[address] | | LABORATORY | | | | [address];[place] | | | | | | [address] | | | | + + + + + + + + | Specimen | + + | | + + + + + + + | Performing | Address | City/State/Zipcode | Phone Number | | Organization | | | | + + + + + | [facility] | [address] | [place] [address] | [phone] | + + + + + POC Glucose (05/21/2019 3:10 PM PST) + + + + + + | Component | Value | Ref Range | Performed | Pathologist | | | | | At | Signature | + + + + + + | Glucose, | 88Comment: Testing | 65 - 99 mg/dL | [facility] | | | POC | performed at [facility];[address] | | LABORATORY | | | | [address];[place] | | | | | | [address] | | | | + + + + + + + + | Specimen | + + | | + + + + + + + | Performing | Address | City/State/Zipcode | Phone Number | | Organization | | | | + + + + + | [facility] | [address] | [place] [address] | [phone] | + + + + + POC Glucose (05/21/2019 2:48 PM PST) + + + + + + | Component | Value | Ref Range | Performed | Pathologist | | | | | At | Signature | + + + + + + | Glucose, | 53 (L)Comment: Testing | 65 - 99 mg/dL | [facility] | | | POC | performed at [facility];[address] | | LABORATORY | | | | [address];[place], [place] | | | | | | [address] | | | | + + + + + + + + | Specimen | + + | | + + + + + + + | Performing | Address | City/State/Zipcode | Phone Number | | Organization | | | | + + + + + | [facility] | [address] | [place] [address] | [phone] | + + + + + POC Glucose (05/21/2019 11:45 AM PST) + + + + + + | Component | Value | Ref Range | Performed | Pathologist | | | | | At | Signature | + + + + + + | Glucose, | 181 (H)Comment: Testing | 65 - 99 mg/dL | [facility] | | | POC | performed at [facility];[address] | | LABORATORY | | | | [address];[place], [place] | | | | | | [address] | | | | + + + + + + + + | Specimen | + + | | + + + + + + + | Performing | Address | City/State/Zipcode | Phone Number | | Organization | | | | + + + + + | [facility] | [address] | [place] [address] | [phone] | + + + + + Basic [...] | | | | | performed at [facility], [address] | | | | | | [facility], | | | | | | [place] [address] | | | | + + + + + + + + | Specimen | + + | Blood | + + + + + + + | Performing | Address | City/State/Zipcode | Phone Number | | Organization | | | | + + + + + | [facility] | [address] | [place] [address] | [phone] | + + + + + POC Glucose (05/21/2019 8:28 AM PST) + + + + + + | Component | Value | Ref Range | Performed | Pathologist | | | | | At | Signature | + + + + + + | Glucose, | 250 (H)Comment: Testing | 65 - 99 mg/dL | [facility] | | | POC | performed at [facility];[address] | | LABORATORY | | | | [address];[place] | | | | | | [address] | | | | + + + + + + + + | Specimen | + + | | + + + + + + + | Performing | Address | City/State/Zipcode | Phone Number | | Organization | | | | + + + + + | [facility] | [address] | [place] [address] | [phone] | + + + + + POC [...] | | | POC | performed at [facility];[address] | | LABORATORY | | | | [address];[place], [place] | | | | | | [address] | | | | + + + + + + + + | Specimen | + + | | + + + + + + + | Performing | Address | City/State/Zipcode | Phone Number | | Organization | | | | + + + + + | [facility] | [address] | [place] [address] | [phone] | + + + + + POC [...] | | | POC | performed at [facility];[address] | | LABORATORY | | | | [address];[place] | | | | | | [address] | | | | + + + + + + + + | Specimen | + + | | + + + + + + + | Performing | Address | City/State/Zipcode | Phone Number | | Organization | | | | + + + + + | [facility] | [address] [facility] | [place] [address] | [phone] | + + + + + POC [...] | | | POC | performed at [facility];[address] | | LABORATORY | | | | [address];[place], [place] | | | | | | [address] | | | | + + + + + + + + | Specimen | + + | | + + + + + + + | Performing | Address | City/State/Zipcode | Phone Number | | Organization | | | | + + + + + | [facility] | [address] | [place] [address] | [phone] | + + + + + Potassium (05/20/2019 3:58 PM PST) + + + + + + | Component | Value | Ref Range | Performed | Pathologist | | | | | At | Signature | + + + + + + | K | 4.9Comment: Testing | 3.5 - 4.9 | [facility] | | | | performed at [facility];[address] | mmol/L | LABORATORY | | | | [address];[place] | | | | | | [address] | | | | + + + + + + + + | Specimen | + + | Blood | + + + + + + + | Performing | Address | City/State/Zipcode | Phone Number | | Organization | | | | + + + + + | [facility] | [address] | [place] [address] | [phone] | + + + + + POC Glucose (05/20/2019 11:37 AM PST) + + + + + + | Component | Value | Ref Range | Performed | Pathologist | | | | | At | Signature | + + + + + + | Glucose, | >400 (H)Comment: Testing | 65 - 99 mg/dL | [facility] | | | POC | performed at [facility];[address] | | LABORATORY | | | | [address];[place], [place] | | | | | | [address] | | | | + + + + + + + + | Specimen | + + | | + + + + + + + | Performing | Address | City/State/Zipcode | Phone Number | | Organization | | | | + + + + + | [facility] | [address] | [place] [address] | [phone] | + + + + + Basic [...] | | | | | performed at [facility], [address] | | | | | | [facility], | | | | | | [place] [address] | | | | + + + + + + + + | Specimen | + + | Blood | + + + + + + + | Performing | Address | City/State/Zipcode | Phone Number | | Organization | | | | + + + + + | [facility] | [address] | [place] [address] | [phone] | + + + + + ECG [...] | | | POC | performed at [facility];[address] | | LABORATORY | | | | [address];[place], [place] | | | | | | [address] | | | | + + + + + + + + | Specimen | + + | | + + + + + + + | Performing | Address | City/State/Zipcode | Phone Number | | Organization | | | | + + + + + | [facility] | [address] | [place] [address] | [phone] | + + + + + POC [...] | | | POC | performed at [facility];[address] | | LABORATORY | | | | [address];[place], [place] | | | | | | [address] | | | | + + + + + + + + | Specimen | + + | | + + + + + + + | Performing | Address | City/State/Zipcode | Phone Number | | Organization | | | | + + + + + | [facility] | [address] | [place] [address] | [phone] | + + + + + POC Glucose (05/20/2019 2:21 AM PST) + + + + + + | Component | Value | Ref Range | Performed | Pathologist | | | | | At | Signature | + + + + + + | Glucose, | 244 (H)Comment: Testing | 65 - 99 mg/dL | [facility] | | | POC | performed at [facility];[address] | | LABORATORY | | | | [address];[place] | | | | | | [address] | | | | + + + + + + + + | Specimen | + + | | + + + + + + + | Performing | Address | City/State/Zipcode | Phone Number | | Organization | | | | + + + + + | [facility] | [address] | [place] [address] | [phone] | + + + + + POC Glucose (05/20/2019 1:22 AM PST) + + + + + + | Component | Value | Ref Range | Performed | Pathologist | | | | | At | Signature | + + + + + + | Glucose, | 248 (H)Comment: Testing | 65 - 99 mg/dL | [facility] | | | POC | performed at [facility];[address] | | LABORATORY | | | | [address];[place], [place] | | | | | | [address] | | | | + + + + + + + + | Specimen | + + | | + + + + + + + | Performing | Address | City/State/Zipcode | Phone Number | | Organization | | | | + + + + + | [facility] | [address] | [place] [address] | [phone] | + + + + + POC [...] | | | POC | performed at [facility];[address] | | LABORATORY | | | | [address];[place], [place] | | | | | | [address] | | | | + + + + + + + + | Specimen | + + | | + + + + + + + | Performing | Address | City/State/Zipcode | Phone Number | | Organization | | | | + + + + + | [facility] | [address] | [place] [address] | [phone] | + + + + + POC [...] | | | POC | performed at [facility];[address] | | LABORATORY | | | | [address];[place] | | | | | | [address] | | | | + + + + + + + + | Specimen | + + | | + + + + + + + | Performing | Address | City/State/Zipcode | Phone Number | | Organization | | | | + + + + + | [facility] | [address] | [place] [address] | [phone] | + + + + + POC Glucose (05/19/2019 10:21 PM PST) + + + + + + | Component | Value | Ref Range | Performed | Pathologist | | | | | At | Signature | + + + + + + | Glucose, | 138 (H)Comment: Testing | 65 - 99 mg/dL | [facility] | | | POC | performed at [facility];[address] | | LABORATORY | | | | [address];[place] | | | | | | [address] | | | | + + + + + + + + | Specimen | + + | | + + + + + + + | Performing | Address | City/State/Zipcode | Phone Number | | Organization | | | | + + + + + | [facility] | [address] | [place] [address] | [phone] | + + + + + POC [...] | | | POC | performed at [facility];[address] | | LABORATORY | | | | [address];[place] | | | | | | [address] | | | | + + + + + + + + | Specimen | + + | | + + + + + + + | Performing | Address | City/State/Zipcode | Phone Number | | Organization | | | | + + + + + | [facility] | [address] | [place] [address] | [phone] | + + + + + POC [...] | | | POC | performed at [facility];[address] | | LABORATORY | | | | [address];[place] | | | | | | [address] | | | | + + + + + + + + | Specimen | + + | | + + + + + + + | Performing | Address | City/State/Zipcode | Phone Number | | Organization | | | | + + + + + | [facility] | [address] | [place] [address] | [phone] | + + + + + POC Glucose (05/19/2019 9:06 PM PST) + + + + + + | Component | Value | Ref Range | Performed | Pathologist | | | | | At | Signature | + + + + + + | Glucose, | 54 (L)Comment: Testing | 65 - 99 mg/dL | [facility] | | | POC | performed at [facility];[address] | | LABORATORY | | | | [address];[place] | | | | | | [address] | | | | + + + + + + + + | Specimen | + + | | + + + + + + + | Performing | Address | City/State/Zipcode | Phone Number | | Organization | | | | + + + + + | [facility] | [address] | [place] [address] | [phone] | + + + + + POC [...] | | | POC | performed at [facility];[address] | | LABORATORY | | | | [address];[place], [place] | | | | | | [address] | | | | + + + + + + + + | Specimen | + + | | + + + + + + + | Performing | Address | City/State/Zipcode | Phone Number | | Organization | | | | + + + + + | [facility] | [address] | [place] [address] | [phone] | + + + + + POC [...] | | | POC | performed at [facility];[address] | | LABORATORY | | | | [address];[place] | | | | | | [address] | | | | + + + + + + + + | Specimen | + + | | + + + + + + + | Performing | Address | City/State/Zipcode | Phone Number | | Organization | | | | + + + + + | [facility] | [address] | [place] [address] | [phone] | + + + + + Glucose, Random (05/19/2019 5:51 PM PST) + + + + + + | Component | Value | Ref Range | Performed | Pathologist | | | | | At | Signature | + + + + + + | Glucose | 421 (H)Comment: Testing | 65 - 99 mg/dL | [facility] | | | | performed at [facility];[address] | | LABORATORY | | | | [address];[place] | | | | | | [address] | | | | + + + + + + + + | Specimen | + + | Blood | + + + + + + + | Performing | Address | City/State/Zipcode | Phone Number | | Organization | | | | + + + + + | [facility] | [address] | [place] [address] | [phone] | + + + + + POC Glucose (05/19/2019 5:48 PM PST) + + + + + + | Component | Value | Ref Range | Performed | Pathologist | | | | | At | Signature | + + + + + + | Glucose, | >400 (H)Comment: Testing | 65 - 99 mg/dL | [facility] | | | POC | performed at [facility];[address] | | LABORATORY | | | | [address];[place] | | | | | | [address] | | | | + + + + + + + + | Specimen | + + | | + + + + + + + | Performing | Address | City/State/Zipcode | Phone Number | | Organization | | | | + + + + + | [facility] | [address] | [place] [address] | [phone] | + + + + + Hemoglobin A1C (05/19/2019 3:06 PM PST) + + + + + + | Component | Value | Ref Range | Performed | Pathologist | | | | | At | Signature | + + + + + + | Hemoglobin | 10.2 (H)Comment: HbA1c | 4.0 - 6.0 % | [facility] | | | A1c | [...] | 246 (H)Comment: | <154 mg/dL | [facility] | | | Average | Estimated Average | | LABORATORY | | | Glucose | Glucose calculated from | | | | | | hemoglobin A1c by use of | | | | | | the ADArecommended | | | | | | formula.Testing | | | | | | performed at [facility], [address] | | | | | | [facility], | | | | | | [place] [address] | | | | + + + + + + + + | Specimen | + + | Blood | + + + + + + + | Performing | Address | City/State/Zipcode | Phone Number | | Organization | | | | + + + + + | [facility] | [address] | [place] [address] | [phone] | + + + + + Glucose, Random (05/19/2019 3:06 PM PST) + + + + + + | Component | Value | Ref Range | Performed | Pathologist | | | | | At | Signature | + + + + + + | Glucose | 520 ()Comment: CALLED | 65 - 99 mg/dL | [facility] | | | | RESULTSREAD BACK RESULTS | | LABORATORY | | | | VERIFIEDBOOM/CONSUELO Cervantes | | | | | | AT [address] | | | | | | performed at [facility];[address] | | | | | | [address];[place] | | | | | | [address] | | | | + + + + + + + + | Specimen | + + | Blood | + + + + + + + | Performing | Address | City/State/Zipcode | Phone Number | | Organization | | | | + + + + + | [facility] | [address] | [place] [address] | [phone] | + + + + + POC [...] | | | POC | performed at [facility];[address] | | LABORATORY | | | | [address];[place] | | | | | | [address] | | | | + + + + + + + + | Specimen | + + | | + + + + + + + | Performing | Address | City/State/Zipcode | Phone Number | | Organization | | | | + + + + + | [facility] | [address] | [place] [address] | [phone] | + + + + + POC Glucose (05/19/2019 9:02 AM PST) + + + + + + | Component | Value | Ref Range | Performed | Pathologist | | | | | At | Signature | + + + + + + | Glucose, | 318 (H)Comment: Testing | 65 - 99 mg/dL | [facility] | | | POC | performed at [facility];[address] | | LABORATORY | | | | [address];[place] | | | | | | [address] | | | | + + + + + + + + | Specimen | + + | | + + + + + + + | Performing | Address | City/State/Zipcode | Phone Number | | Organization | | | | + + + + + | [facility] | [address] | [place] [address] | [phone] | + + + + + Basic [...] | 9.0 | 8.5 - 10.5 | [facility] | | | | | mg/dL | LABORATORY | | + + + + + + | Estimated | >60Comment: GFR <60: | >60 | [facility] | | | GFR | [...] | | | | | performed at [facility];[address] | | | | | | [facility];[place], [place] | | | | | | [address] | | | | + + + + + + + + | Specimen | + + | Blood | + + + + + + + | Performing | Address | City/State/Zipcode | Phone Number | | Organization | | | | + + + + + | [facility] | [address] | [place] [address] | [phone] | + + + + + POC [...] | | | POC | performed at [facility];[address] | | LABORATORY | | | | [address];[place] | | | | | | [address] | | | | + + + + + + + + | Specimen | + + | | + + + + + + + | Performing | Address | City/State/Zipcode | Phone Number | | Organization | | | | + + + + + | [facility] | [address] [facility] | [place] [address] | [phone] | + + + + + POC [...] | | | POC | performed at [facility];[address] | | LABORATORY | | | | [address];[place], [place] | | | | | | [address] | | | | + + + + + + + + | Specimen | + + | | + + + + + + + | Performing | Address | City/State/Zipcode | Phone Number | | Organization | | | | + + + + + | [facility] | [address] | [place] [address] | [phone] | + + + + + Basic [...] | | | | | performed at [facility];[address] | | | | | | [facility];[place], [place] | | | | | | [address] | | | | + + + + + + + + | Specimen | + + | Blood | + + + + + + + | Performing | Address | City/State/Zipcode | Phone Number | | Organization | | | | + + + + + | [facility] | [address] | [place] [address] | [phone] | + + + + + POC [...] | | | POC | performed at [facility];[address] | | LABORATORY | | | | [address];[place], [place] | | | | | | [address] | | | | + + + + + + + + | Specimen | + + | | + + + + + + + | Performing | Address | City/State/Zipcode | Phone Number | | Organization | | | | + + + + + | [facility] | [address] | [place] [address] | [phone] | + + + + + POC Glucose (05/18/2019 8:19 PM PST) + + + + + + | Component | Value | Ref Range | Performed | Pathologist | | | | | At | Signature | + + + + + + | Glucose, | >400 (H)Comment: Testing | 65 - 99 mg/dL | [facility] | | | POC | performed at [facility];[address] | | LAB[address]AT[address] | | | [address];[place] | | | | | | [address] | | | | + + + + + + + + | Specimen | + + | | + + + + + + + | Performing | Address | City/State/Zipcode | Phone Number | | Organization | | | | + + + + + | [facility] | [address] | [place] [address] | [phone] | + + + + + Basic [...] | | | | | performed at [facility];[address] | | | | | | [address];[place], [place] | | | | | | [address] | | | | + + + + + + + + | Specimen | + + | Blood | + + + + + + + | Performing | Address | City/State/Zipcode | Phone Number | | Organization | | | | + + + + + | [facility] | [address] | [place] [address] | [phone] | + + + + + POC [...] | | | POC | performed at [facility];[address] | | LABORATORY | | | | [address];[place] | | | | | | [address] | | | | + + + + + + + + | Specimen | + + | | + + + + + + + | Performing | Address | City/State/Zipcode | Phone Number | | Organization | | | | + + + + + | [facility] | [address] | [place] [address] | [phone] | + + + + + POC [...] | | | POC | performed at [facility];[address] | | LABORATORY | | | | [address];[place] | | | | | | [address] | | | | + + + + + + + + | Specimen | + + | | + + + + + + + | Performing | Address | City/State/Zipcode | Phone Number | | Organization | | | | + + + + + | [facility] | [address] | [place] [address] | [phone] | + + + + + POC Glucose (05/18/2019 12:22 PM PST) + + + + + + | Component | Value | Ref Range | Performed | Pathologist | | | | | At | Signature | + + + + + + | Glucose, | >400 (H)Comment: Testing | 65 - 99 mg/dL | [facility] | | | POC | performed at [facility];[address] | | LABORATORY | | | | [address];[place], [place] | | | | | | [address] | | | | + + + + + + + + | Specimen | + + | | + + + + + + + | Performing | Address | City/State/Zipcode | Phone Number | | Organization | | | | + + + + + | [facility] | [address] | [place] [address] | [phone] | + + + + + POC Glucose (05/18/2019 9:28 AM PST) + + + + + + | Component | Value | Ref Range | Performed | Pathologist | | | | | At | Signature | + + + + + + | Glucose, | 111 (H)Comment: Testing | 65 - 99 mg/dL | [facility] | | | POC | performed at [facility];[address] | | LABORATORY | | | | [address];[place] | | | | | | [address] | | | | + + + + + + + + | Specimen | + + | | + + + + + + + | Performing | Address | City/State/Zipcode | Phone Number | | Organization | | | | + + + + + | [facility] | [address] | [place] [address] | [phone] | + + + + + POC [...] | | | POC | performed at [facility];[address] | | LABORATORY | | | | [address];[place], [place] | | | | | | [address] | | | | + + + + + + + + | Specimen | + + | | + + + + + + + | Performing | Address | City/State/Zipcode | Phone Number | | Organization | | | | + + + + + | [facility] | [address] | [place] [address] | [phone] | + + + + + POC [...] | | | POC | performed at [facility];[address] | | LABORATORY | | | | [address];[place] | | | | | | [address] | | | | + + + + + + + + | Specimen | + + | | + + + + + + + | Performing | Address | City/State/Zipcode | Phone Number | | Organization | | | | + + + + + | [facility] | [address] | [place] [address] | [phone] | + + + + + POC Glucose (05/18/2019 1:36 AM PST) + + + + + + | Component | Value | Ref Range | Performed | Pathologist | | | | | At | Signature | + + + + + + | Glucose, | 319 (H)Comment: Testing | 65 - 99 mg/dL | [facility] | | | POC | performed at [facility];[address] | | LABORATORY | | | | [address];[place] | | | | | | [address] | | | | + + + + + + + + | Specimen | + + | | + + + + + + + | Performing | Address | City/State/Zipcode | Phone Number | | Organization | | | | + + + + + | [facility] | [address] | [place] [address] | [phone] | + + + + + Blood gas, Venous (05/18/2019 12:01 AM PST) + + + + + + | Component | Value | Ref Range | Performed | Pathologist | | | | | At | Signature | + + + + + + | pH, Venous, | 7.335 | 7.310 - 7.410 | [facility] | | | POC | | | LABORATORY | | + + + + + + | PCO2, | 54 (H) | 41 - 51 mmHG | [facility] | | | Venous, POC [...] (L) | 60 - 85 % | [facility] | | | SO2.BLDV.QN | | | LABORATORY | | | .(%) | | | | | + + + + + + | Comment, | Abdiel Test not | | [facility] | | | POC | indicatedComment: | | LABORATORY | | | | Testing performed at | | | | | | [facility];[address] | | | | | | [address];[place] [address] | | | | + + + + + + + + | Specimen | + + | | + + + + + + + | Performing | Address | City/State/Zipcode | Phone Number | | Organization | | | | + + + + + | [facility] | [address] | [place] [address] | [phone] | + + + + + Drugs [...] | | | | | performed at [facility] | | | | | | [facility];[place], [place] | | | | | | [address] | | | | + + + + + + + + | Specimen | + + | Urine | + + + + + + + | Performing | Address | City/State/Zipcode | Phone Number | | Organization | | | | + + + + + | [facility] | [address] | [place] [address] | [phone] | + + + + + Ketones, Serum (05/17/2019 10:54 PM PST) + + + + + + | Component | Value | Ref Range | Performed | Pathologist | | | | | At | Signature | + + + + + + | Ketones, | NEGATIVEComment: Testing | NEG | [place] | | | Blood | performed at [facility];[address] | | LABORATORY | | | | [address];[place], [place] | | | | | | [address] | | | | + + + + + + + + | Specimen | + + | Blood | + + + + + + + | Performing | Address | City/State/Zipcode | Phone Number | | Organization | | | | + + + + + | [facility] | [address] | [place] [address] | [phone] | + + + + + TSH (05/17/2019 10:54 PM PST) + + + + + + | Component | Value | Ref Range | Performed | Pathologist | | | | | At | Signature | + + + + + + | TSH | 1.314Comment: Testing | 0.450 - 5.100 | [facility] | | | | performed at [facility];[address] | uIU/mL | LABORATORY | | | | [address];[place] | | | | | | [address] | | | | + + + + + + + + | Specimen | + + | Blood | + + + + + + + | Performing | Address | City/State/Zipcode | Phone Number | | Organization | | | | + + + + + | [facility] | [address] | [place] [address] | [phone] | + + + + + Salicylate Level (05/17/2019 10:54 PM PST) + + + + + + | Component | Value | Ref Range | Performed | Pathologist | | | | | At | Signature | + + + + + + | Salicylate, | <3.0Comment: Testing | 2.8 - 20.0 | [facility] | | | mg/dL | performed at [facility];[address] | mg/dL | LABORATORY | | | | [address];[place] | | | | | | [address] | | | | + + + + + + + + | Specimen | + + | Blood | + + + + + + + | Performing | Address | City/State/Zipcode | Phone Number | | Organization | | | | + + + + + | [facility] | [address] | [place] [address] | [phone] | + + + + + Acetaminophen [...] | | en, S | performed at [facility];[address] | ug/mL | LABORATORY | | | | [address];[place] | | | | | | [address] | | | | + + + + + + + + | Specimen | + + | Blood | + + + + + + + | Performing | Address | City/State/Zipcode | Phone Number | | Organization | | | | + + + + + | [facility] | [address] | [place] [address] | [phone] | + + + + + Ethanol (05/17/2019 10:54 PM PST) + + + + + + | Component | Value | Ref Range | Performed | Pathologist | | | | | At | Signature | + + + + + + | ALCOHOL, | <10Comment: Testing | <10 mg/dL | [facility] | | | SERUM/PLASM | performed at [facility];[address] | | LABORATORY | | | A | [address];[place], [place] | | | | | | [address] | | | | + + + + + + + + | Specimen | + + | Blood | + + + + + + + | Performing | Address | City/State/Zipcode | Phone Number | | Organization | | | | + + + + + | [facility] | [address] | [place] [address] | [phone] | + + + + + Comprehensive [...] | | | | | performed at [facility];[address] | | | | | | [facility];[place], [place] | | | | | | [address] | | | | + + + + + + + + | Specimen | + + | Blood | + + + + + + + | Performing | Address | City/State/Zipcode | Phone Number | | Organization | | | | + + + + + | [facility] | [address] | [place] [address] | [phone] | + + + + + CBC [...] | | | Absolute | performed at [facility];[address] | K/uL | LABORATORY | | | | [address];[place] | | | | | | [address] | | | | + + + + + + + + | Specimen | + + | Blood | + + + + + + + | Performing | Address | City/State/Zipcode | Phone Number | | Organization | | | | + + + + + | [facility] | [address] | [place] [address] | [phone] | + + + + + POC [...] | | | POC | performed at [facility];[address] | | LABORATORY | | | | [address];[place], [place] | | | | | | [address] | | | | + + + + + + + + | Specimen | + + | | + + + + + + + | Performing | Address | City/State/Zipcode | Phone Number | | Organization | | | | + + + + + | [facility] | [address] | [place] [address] | [phone] | + + + + + documented [...] | | | | | | | 4322-9886 Use NIGHT DOSE for | | | | | | | doses scheduled: HS, 3AM, | | | | | | | Nighttime 4010-9645 If the BG is | | | [...] | | | | | | | 6328-2640 Use NIGHT DOSE for | | | | | | | doses scheduled: HS, 3AM, | | | | | | | Nighttime 0638-6752 If the BG is | | | [...] | | | | | | | 1974-5509 Use NIGHT DOSE for | | | | | | | doses scheduled: HS, 3AM, | | | | | | | Nighttime 5392-3927 If the BG is | | | [...] | | | BREAKFAST, First dose on Kailye | | | 05/20/19 at 1030, Give [...] Agitation, | | | Starting [facility] 05/20/19 at 0913, | | | [...]
--- OUTSIDE RECORDS SUMMARY | ~2019-11-30 | XMS | Encounter Summary ---
Demographics + + + | Address | [address] | | | [place] [address] | + + + | Home Phone [...] Providers + +------+ + | Care Child And Family Therapist Name | Role | Phone | + +------+ + PCP | Unavailable | + +------+ + Encounter Details +--------+ + + + + | Date | Type | Department | Care Team | Description | +--------+ + + + + | 02/23/ | [facility] | [facility] | Abhi Berger | | | 2003 | Encounter | FAMILY MEDICINE 120 | MD [address] | | | | | [place] | [place], [place] | | | | | [place] [address] | [address] | | | | | [phone] | | | +--------+ + + + [...]
--- OUTSIDE RECORDS SUMMARY | ~2019-11-30 | XMS | Encounter Summary ---
Demographics + + + | Address | [address] | | | [place] [address] | + + + | Home Phone | | + + + | Preferred Language | Unknown | + + + | Marital Status | Single | + + + | [employer]ar[employer] Affiliation | 1001 | + + + [...] Team Providers + +------+ + | Care Monorail Helper Name | Role | Phone | + +------+ + PCP | Unavailable | + +------+ + Encounter Details +--------+ + + + + | Date | Type | Department | Care Team | Description | +--------+ + + + + | 03/11/ | Hospital | [facility] | Shivam Garzon | | | 2003 | Encounter | [facility] | DO [address] | | | | | [facility] | [place], [place] | | | | | [address] | [address] | | | | | [phone] | | | +--------+ + + + [...]
--- OUTSIDE RECORDS SUMMARY | ~2019-11-30 | XMS | Encounter Summary ---
Demographics + + + | Address | [address] | | | [place] [address] | + + + | Home Phone [...] Team Providers + +------+ + | Care Meat Packager Name | Role | Phone | + +------+ + PCP | Unavailable | + +------+ + Encounter Details +--------+ + + + + | Date | Type | Department | Care Team | Description | +--------+ + + + + | 06/19/ | [facility] | [facility] | Abhi Berger | | | 2003 | Encounter | FAMILY MEDICINE 120 | MD [address] | | | | | [place] | [place], [place] | | | | | [place] [address] | [address] | | | | | [phone] | | | +--------+ + + + [...]
--- OUTSIDE RECORDS SUMMARY | ~2019-11-30 | XMS | Encounter Summary ---
Demographics + + + | Address | [address] | | | [place] [address] | + + + | Home Phone [...] + + + | Author | [facility] | | | and Ryana | + + + | Organization | [facility] | | [...] Team Providers + +------+ + | Care Soiled Linen Distributor Name | Role | Phone | + [...] + + | 09/23/ | Emergency | [facility] | Adi Castro | Hyperglycemia | | 2017 - | | [facility] | Alexander Craig MD | (Primary Dx); | | | | CENTER [address] | [address] | Genital edema, male | | 09/24/ | | [place], [place] | [place], [place] | | | 2016 | | [address] | [address] | | | | | [phone] | | | +--------+ + + + [...] | | 0 | | | | RT-Xrxmzlasejbyi-Fsh | mouth Daily as | | | [...] | | POC | | | [facility] | | [...] + | [facility] | [address] | [place] | [phone] | | [facility] | | [address] | | | - LABORATORY | | [...] + | [facility] | [address] | [place] | [phone] | | [facility] | | [address] | | | - LABORATORY | | [...] [address] | [place] | [phone] | | [facility] | | [address] | | | - LABORATORY | | [...] + | [facility] | [address] | [place] | [phone] | | [facility] | | [address] | | | - LABORATORY | | [...] mL/min/1.73m2 | Paula [facility] | | | SW[place]ISH | RATE,ESTIMATED | | MEDICAL | | | | mL/min/1.71s9Auca than | | CENTER - | | [...] (L) | 3.2 - 5.0 g/dL | [facility] | | | | | | CLEMENTE [...] [address] | [place] | [phone] | | [facility] | | [address] | | | - LABORATORY | | [...] + | [facility] | [address] | [place], [place] | [phone] | | [facility] | | [address] | | | - LABORATORY | | [...]
--- OUTSIDE RECORDS SUMMARY | ~2019-11-30 | XMS | Encounter Summary ---
Demographics + + + | Address | [address] | | | [place] [address] | + + + | Home Phone [...] Team Providers + +------+ + | Care Flag Decorator Name | Role | Phone | + +------+ + PCP | Unavailable | + +------+ + Encounter Details +--------+ + + + + | Date | Type | Department | Care Team | Description | +--------+ + + + + | 04/21/ | Hospital | [facility] | Abhi Berger | | | 1999 - | Encounter | [address] | MD [address] | | | | | [place], [place] | [place], [place] | | | 04/22/ | | [address] | [address] | | | 1999 | | [phone] | | | +--------+ + + + [...]
--- OUTSIDE RECORDS SUMMARY | ~2019-11-30 | XMS | Encounter Summary ---
Demographics + + + | Address | [address] | | | [place] [address] | + + + | Home Phone [...] Providers + +------+ + | Care Printing Bindery Assistant Name | Role | Phone | [...] + + | 05/07/ | Emergency | [facility] | Adi Castro | Vomiting, | | 2017 | | [facility] | Alexander Craig MD | intractability of | | | | CENTER [address] | [address] | vomiting not | | | | [place], [place] | [place], [place] | specified, presence | | | | [address] | [address] | of nausea not | | | | [phone] | | specified, | | | | [...] J?MRN: | | | | | | [id number] | | | [id number] | | | his | | | [...] | | | St. | | | [place] | | | y | | | [...] | | | St. | | | [place] | | | y | | | [...] | | | St. | | | [place] | | | y H. | | [...] | | | St. | | | [place] | | | y H. | | [...] | | | St. | | | [place] | | | y H. | | [...] | | | St. | | | [place] | | | y H. | | [...] | | | St. | | | [place] | | | y H. | | [...] | | | St. | | | [place] | | | y | | | [...] | | | ext. | | | [phone] | | | or go | | [...]
--- OUTSIDE RECORDS SUMMARY | ~2019-11-30 | XMS | Encounter Summary ---
Demographics + + + | Address | [address] | | | [place] [address] | + + + | Home Phone [...] Team Providers + +------+ + | Care Logistics Coordinator Name | Role | Phone | [...] | | | | | | | ([facility]) | | | | | | | [...] | | | | | | | ([facility]) | | | +--------+--------+ + + + + Encounter Details +--------+ + + + + | Date | Type | Department | Care Team | Description | +--------+ + + + + | 09/26/ | Hospital | [facility] | Juanjose Ross MD | Diabetic | | 2017 - | Encounter | [facility] | [address] | ketoacidosis without | | | | [address] | [place] | coma associated | | 09/28/ | | [place] [address] | [address] | with type 1 diabetes | | 2017 | | [phone] | | mellitus (HCC) | | | | | Yancy Barron MD | (Primary Dx); | | | | | [address] | Hyperkalemia; Acute | | | | | [place] | renal failure, | | | | | [address] | unspecified acute | | | | [...] week. 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 aka: LANTUS insulin lispro 100 units/mL injection (cartridge) Inject 2 Units under the skin 3 times daily (before meals). Plus sliding scale. aka: humaLOG Discontinued Medications aspirin 81 mg chewable tablet OI-Musulmczkmnbo-Lsnplpabidzbm 10-5-325 MG Caps HYDROcodone-acetaminophen 5-325 mg per tablet aka: NORCO STRATTERA 100 MG capsule Generic drug: atoMOXetine Studies With Pending Results: None Greater than 30 minutes were spent on discharge and coordination of post-hospital care. Electronically signed by: Yancy Barron MD, 09/28/2016 13:20 [facility] documented in this enc ounter Discharge [...] medication list or bottles [] MAR from [facility] facility: [] Doctor's office: [x] Pharmacy list names: [facility] Ayla, Anthony Aguila [] [facility] [place] OPERATOR (Prescription Monitoring Program) [x] [employer] insurance [...] Marijuana lungs 3 times weekly unknown Other: [facility] reports patient appears non-compliant with his medications. Medication: Prior to Admission Sig: Patient taking differently HEAD BUTLER as: Atomoxetine 100 mg 1 tablet every morning Pt states taking but last filled for 30 day suppl y in June IS-Yskjtldgpjfui-Vpapyxhrfugcg 10-5-325 mg 1 capsule daily as needed [...] performed and electronically signed by Luis Araujo, Security Operations Specialist 017 19:12 Reviewed by: Hannah Mijares PHARMD [...] | | | POC | | | [facility] | | | | | | [...] [address] | [place] | [phone] | | [facility] | | [address] | | | - LABORATORY | | [...] + | [facility] | [address] | [place] | [phone] | | [facility] | | [address] | | | - LABORATORY | | [...] mL/min/1.73m2 | [facility] | | | AFGHAN | RATE,ESTIMATED | | MEDICAL | | | | mL/min/1.85w0Joiv than | | CENTER - | | [...] [address] | [place] | [phone] | | [facility] | | [address] | | | - LABORATORY | | [...] [address] | [place] | [phone] | | [facility] | | [address] | | | - LABORATORY | | [...] | | | POC | | | [facility] | | | | [...] + | [facility] | [address] | [place] | [phone] | | [facility] | | [address] | | | - LABORATORY | | [...] [address] | [place] | [phone] | | [facility] | | [address] | | | - LABORATORY | | [...] | | | | | | [facility] | | | | | | MEDICAL [...] [address] | [place] | [phone] | | [facility] | | [address] | | | - LABORATORY | | [...] + | [facility] | [address] | [place] | [phone] | | [facility] | | [address] | | | - LABORATORY | | [...] mL/min/1.73m2 | [facility] | | | AFGHAN | RATE,ESTIMATED | | MEDICAL | | | | mL/min/1.02y7Ykbu than | | CENTER - | | [...] [address] | [place] | [phone] | | [facility] | | [address] | | | - LABORATORY | | [...] [address] | [place] | [phone] | | [facility] | | [address] | | | - LABORATORY | | [...] + | [facility] | [address] | [place] | [phone] | | [facility] | | [address] | | | - [...] | mL/min/1.73m2 | [facility] | | | AFGHAN | RATE,ESTIMATED | | MEDICAL | | | | mL/min/1.21m0Dkry than | | CENTER - | | [...] [address] | [place] | [phone] | | [facility] | | [address] | | | - LABORATORY | | [...] - 1.030 | [facility] | | | Lucien, | | | [facility] | | [...] n, Urine | | mg/dL, Negative | [facility] | | | | | | MEDICAL | | | | | | CENTER - | | | | | | LABORATORY | | + + + + + + | White Blood | 2-5 (A) | 0 - 2 /HPF | [facility] | | | Cells, | | | [facility] | | | Urine | | | MEDICAL | | | | | | CENTER - | | | | | | LABORATORY | | + + + + + + | Red Blood | 0-2 | 0 - 2 /HPF | [facility] | | | Cells, | | | [facility] | | [...] | | Casts, | | | [facility] | | | Urine | | | MEDICAL | | | | | | CENTER - | | | | | | LABORATORY | | + + + + + + | Urine | Urine Culture Not | | [facility] | | | Comment | Indicated | | [facility] | | | [...] + | [facility] | [address] | [place] | [phone] | | [facility] | | [address] | | | - LABORATORY | | [...] [address] | [place] | [phone] | | [facility] | | [address] | | | - LABORATORY | | [...] [address] | [place] | [phone] | | [facility] | | [address] | | | - LABORATORY | | [...] | | | | | | [facility] | | | | | | MEDICAL [...] (H) | 7 - 18 mg/dL | [facility] | | | | | | [facility] | | | | | | MEDICAL | | | | | | CENTER - | | | | | | LABORATORY | | + + + + + + | Creatinine | 1.17 | 0.60 - 1.30 | [facility] | | | | | mg/dL | [facility] | | | | | | MEDICAL | | | | | | CENTER - | | | | | | LABORATORY | | + + + + + + | eGFR if not | >60Comment: GLOMERULAR | >=60 | [facility] | | | | FILTRATION | mL/min/1.73m2 | [facility] | | | AFGHAN | RATE,ESTIMATED | | MEDICAL | | | | mL/min/1.88r0Vlky than | | CENTER - | | [...] [address] | [place] | [phone] | | [facility] | | [address] | | | - LABORATORY | | [...] ST. | [address] | [place], [place] | [phone] | | [facility] | | [address] | | | - LABORATORY | | [...] + | [facility] | [address] | [place] | [phone] | | [facility] | | [address] | | | - LABORATORY | | [...] [address] | [place] | [phone] | | [facility] | | [address] | | | - LABORATORY | | | | + + + + + Magnesium (09/27/2016 7:27 AM PDT) + +-------+ + + + | Component | Value | Ref Range | Performed | Pathologist | | | | | At | Signature | + +-------+ + + + | Magnesium | 2.2 | 1.8 - 2.5 mg/dL | [facility] [...] + | [facility] | [address] | [place] | [phone] | | [facility] | | [address] | | | - LABORATORY | | [...] 1.43 (H) | 0.60 - 1.30 | [facility] | | | | | mg/dL | [facility] | | | | | | MEDICAL | | | | | | CENTER - | | | | | | LABORATORY | | + + + + + + | eGFR if not | 56 (L)Comment: | >=60 | [facility] | | | | GLOMERULAR FILTRATION | mL/min/1.73m2 | [facility] | | | AFGHAN | RATE,ESTIMATED | | MEDICAL | | | | mL/min/1.67p3Bpja than | | CENTER - | | [...] | 8.4 | 8.3 - 10.5 | [facility] | | | | | mg/dL | [facility] | | | | [...] [address] | [place] | [phone] | | [facility] | | [address] | | | - LABORATORY | | [...] | | POC | | | [facility] | | | [...] + | [facility] | [address] | [place] | [phone] | | [facility] | | [address] | | | - LABORATORY | | [...] [address] | [place] | [phone] | | [facility] | | [address] | | | - LABORATORY | | [...] + | [facility] | [address] | [place] | [phone] | | [facility] | | [address] | | | - LABORATORY | | [...] + | [facility] | [address] | [place], [place] | [phone] | | [facility] | | [address] | | | - LABORATORY | | [...] mL/min/1.73m2 | [facility] | | | AFGHAN | RATE,ESTIMATED | | MEDICAL | | | | mL/min/1.72x1Qaxg than | | CENTER - | | [...] [address] | [place] | [phone] | | [facility] | | [address] | | | - LABORATORY | | [...] + | [facility] | [address] | [place] | [phone] | | [facility] | | [address] | | | - LABORATORY | | [address] | [place] | [phone] | | [facility] | | [address] | | | - LABORATORY | | | | + + + + + Phosphorus (09/27/2016 3:16 AM PDT) + +---------+ + + + | Component | Value | Ref Range | Performed | Pathologist | | | | | At | Signature | + +---------+ + + + | Phosphorus | 4.7 (H) | 2.5 - 4.6 mg/dL | [facility] [...] [address] | [place] | [phone] | | [facility] | | [address] | | | - LABORATORY | | | | + + + + + Magnesium (09/27/2016 3:16 AM PDT) + +-------+ + + + | Component | Value | Ref Range | Performed | Pathologist | | | | | At | Signature | + +-------+ + + + | Magnesium | 2.3 | 1.8 - 2.5 mg/dL | [facility] | | | | | | ST. [...] [address] | [place] | [phone] | | [facility] | | [address] | | | - LABORATORY | | [...] (H) | 7 - 18 mg/dL | [facility] | | | | | | [facility] | | | | | | MEDICAL | | | | | | CENTER - | | | | | | LABORATORY | | + + + + + + | Creatinine | 1.89 (H) | 0.60 - 1.30 | [facility] | | | | | mg/dL [...] mL/min/1.73m2 | [facility] | | | AFGHAN | RATE,ESTIMATED | | MEDICAL | | | | mL/min/1.56f1Ftpu than | | CENTER - | | [...] [address] | [place] | [phone] | | [facility] | | [address] | | | - LABORATORY | | [...] [address] | [place] | [phone] | | [facility] | | [address] | | | - LABORATORY | | [...] ST. | [address] | [place], [place] | [phone] | | [facility] | | [address] | | | - LABORATORY | | [...] [address] | [place] | [phone] | | [facility] | | [address] | | | - LABORATORY | | [...] | | | PCR | | | [facility] | | | | | | MEDICAL | | | | | | CENTER - | | | | | | LABORATORY | | + + + + + + | Influenza B | Negative | Negative | [facility] | | | PCR | | | [facility] | | | | [...] [address] | [place] | [phone] | | [facility] | | [address] | | | - LABORATORY | | | | + + + + + Phosphorus (09/27/2016 1:36 AM PDT) + +---------+ + + + | Component | Value | Ref Range | Performed | Pathologist | | | | | At | Signature | + +---------+ + + + | Phosphorus | 6.3 (H) | 2.5 - 4.6 mg/dL | [facility] [...] + | [facility] | [address] | [place] | [phone] | | [facility] | | [address] | | | - LABORATORY | | | | + + + + + Magnesium (09/27/2016 1:36 AM PDT) + +-------+ + + + | Component | Value | Ref Range | Performed | Pathologist | | | | | At | Signature | + +-------+ + + + | Magnesium | 2.5 | 1.8 - 2.5 mg/dL | [facility] | | | | | | [facility] [...] [address] | [place] | [phone] | | [facility] | | [address] | | | - LABORATORY | | [...] | Consistent with previous | | [facility] | | | | results. | | [...] | | | | | | [facility] | | | | | | MEDICAL [...] not | 39 (L)Comment: | >=60 | [facility] | | | | GLOMERULAR FILTRATION | mL/min/1.73m2 | [facility] | | | AFGHAN | RATE,ESTIMATED | | MEDICAL | | | | mL/min/1.66f8Gjny than | | CENTER - | | [...] [address] | [place] | [phone] | | [facility] | | [address] | | | - LABORATORY | | [...] | | POC | | | [facility] | | | | | | MEDICAL [...] [address] | [place] | [phone] | | [facility] | | [address] | | | - LABORATORY | | [...] + | [facility] | [address] | [place] | [phone] | | [facility] | | [address] | | | - LABORATORY | | [...] MD | | | | | | ([id number]) on 09/27/2016 | | | | | [address] | [place] | [phone] | | [facility] | | [address] | | | - LABORATORY | | [...] + + | Performing | Address | City/State/[facility] | Phone Number | | Organization | | | | + + + + + | [facility] | [address] | [place] | [phone] | | [facility] | | [address] | | | - LABORATORY | | [...] 6.2 ()Comment: | 3.5 - 5.1 | [facility] | | | | Critical [...] 2.25 (H) | 0.60 - 1.30 | [facility] | | | | | mg/dL | [facility] | | | | | | MEDICAL | | | | | | CENTER - | | | | | | LABORATORY | | + + + + + + | eGFR if not | 33 (L)Comment: | >=60 | [facility] | | | | GLOMERULAR FILTRATION | mL/min/1.73m2 | [facility] | | | AFGHAN | RATE,ESTIMATED | | MEDICAL | | | | mL/min/1.86w4Xmen than | | CENTER - | | [...] [address] | [place] | [phone] | | [facility] | | [address] | | | - LABORATORY | | [...] [address] | [place] | [phone] | | [facility] | | [address] | | | - LABORATORY | | [...] + | [facility] | [address] | [place] | [phone] | | [facility] | | [address] | | | - LABORATORY | | [...] [address] | [place] | [phone] | | [facility] | | [address] | | | - LABORATORY | | [...] [address] | [place] | [phone] | | [facility] | | [address] | | | - LABORATORY | | [...] | [employer] | | | [facility] [...] [address] | [place] | [phone] | | [facility] | | [address] | | | - LABORATORY | | [...] + | [facility] | [address] | [place] | [phone] | | [facility] | | [address] | | | - LABORATORY | | | | + + + + + POC Glucose (09/26/2016 10:42 PM PDT) + + + + + + | Component | Value | Ref Range | Performed | Pathologist | | | | | At | Signature | + + + + + + | Glucose, | >600 (HH) | 70 - 150 mg/dL | [facility] | | | POC | | | [...] ST. | [address] | [place], [place] | [phone] | | [facility] | | [address] | | | - LABORATORY | | [...] | | | | | Indigestion, Starting Fri09/27/16 | | | | | | | [...] | | | | | | | 1929-2934 Use NIGHT DOSE for | | | | | | | doses scheduled: HS, 3AM, | | | | | | | Nighttime 1374-7676, | | | | | | + [...] | | | | | NPO, Daytime 0170-3069 Use NIGHT | | | | | | | DOSE for doses scheduled: | | | | | | | HS, 3AM, Nighttime 0641-7244, | | | | | | + [...] | | | | | | | [facility] 09/26/16 at 2325 | | | | [...] | sodium chloride 0.9% (NS) bolus | Bag | 09/27/19 | 1,000 | 2000 | | | 1,000 mL 1,000 mL, Intravenous, | | 17 11:15 | mLs | mL/hr | | | Administer over 30 Minutes, | | PM PDT | | | | | ONCE, [facility] 09/26/16 at 2305, For 1 | | [...] PDT | | | | | ONCE, [facility] 09/26/16 at 2355, For 1 | | [...]
--- OUTSIDE RECORDS SUMMARY | ~2019-11-30 | XMS | Encounter Summary ---
Demographics + + + | Address | [address] | | | [place] [address] | + + + | Home Phone [...] Team Providers + +------+ + | Care Automated Cutting Machine Operator Name | Role | Phone | + +------+ + PCP | Unavailable | + +------+ + Encounter Details +--------+ + + + + | Date | Type | Department | Care Team | Description | +--------+ + + + + | 05/01/ | [facility] | [facility] | Abhi Berger | | | 2003 | Encounter | [facility] [address] | MD [address] | | | | | [place] [place] | [place], [place] | | | | | [place] [address] | [address] | | | | | [phone] | | | +--------+ + + + [...]
--- OUTSIDE RECORDS SUMMARY | ~2019-11-30 | XMS | Encounter Summary ---
Demographics + + + | Address | [address] | | | [place] [address] | + + + | Home Phone | | + + + | Preferred Language | Unknown | + + + | Marital Status | Single | + + + | Nondenominational Affiliation | 1001 | + + + | Race | Unknown | + + + | Ethnic Group | Unknown | + + + Author + + + | Author | [facility] | | | and Ryana | + + + | Organization | [facility] | | [...] Providers + +------+ + | Care Concrete Pump Operator Name | Role | Phone | + +------+ + PCP | Unavailable | + +------+ + Encounter Details +--------+ + + + + | Date | Type | Department | Care Team | Description | +--------+ + + + + | 09/07/ | Hospital | [facility] | Kevin Ricci | | | 1999 - | Encounter | H[facility]PITAL [address] Jr., MD [address] | | | | | [place], [place] | [place], [place] | | | 09/09/ | | [address] | [address] | | | 1999 | | [phone] | | | +--------+ + + + [...]
--- OUTSIDE RECORDS SUMMARY | ~2019-11-30 | XMS | Encounter Summary ---
Demographics + + + | Address | [address] | | | [place] [address] | + + + | Home Phone [...] Team Providers + +------+ + | Care Regional Account Director Name | Role | Phone | + +------+ + | Shvaon Covington | PCP | | + +------+ [...] | | [facility] [place] [address] [place] | diabetes mellitus | | | | CENTER [address] | [address] | with hyperglycemia | | | | [place], [place] | [place] [address] | ([facility]) (Primary Dx); | | | | [address] | [phone] | Type 2 diabetes | | | | [phone] | | mellitus without | | | | | | complication, with | | | | | | long-term current | | | | | | use of insulin | | | | | | ([facility]); Chest pain in | | | | [...] J?MRN: | | | | | | [id number] | | | [id number] | | | his | | | [...] | | | St. | | | [place] | | | y | | | [...] | | | St. | | | [place] | | | y H. | | [...] | | | St. | | | [place] | | | y H. | | [...] | | | St. | | | [place] | | | y H. | | [...] | | | St. | | | [place] | | | y H. | | [...] | | | St. | | | [place] | | | y H. | | [...] | | | St. | | | [place] | | | y | | | [...] | | | ext. | | | [address] | | | or go | | [...] [address] | [place] | [phone] | | [facility] | | [address] | | | - LABORATORY | | [...] | 0.84 | 0.60 - 1.30 | [facility] | | | | | mg/dL | [facility] | | | | | | MEDICAL | | | | | | CENTER - | | | | | | LABORATORY | | + + + + + + | eGFR if not | >60Comment: GLOMERULAR | >=60 | [facility] | | | | FILTRATION | mL/min/1.73m2 | [facility] | | | [place] | RATE,ESTIMATED | | MEDICAL | | | | mL/min/1.93n7Jqat than | | CENTER - | | [...] [address] | [place] | [phone] | | [facility] | | [address] | | | - LABORATORY | | [...] | | | | | [place] ([id number]) on | | | | | | [...] ST. | [address] | [place] | [phone] | | [facility] | | [address] | | | - LABORATORY | | [...] [address] | [place] | [phone] | | [facility] | | [address] | | | - LABORATORY | | [...] + | [facility] | [address] | [place] | [phone] | | [facility] | | [address] | | | - LABORATORY | | [...] ST. | [address] | [place], [place] | [phone] | | [facility] | | [address] | | | - LABORATORY | | [...] | | | | | mg/dL | [facility] | | | | | | MEDICAL | | | | | | CENTER - | | | | | | LABORATORY | | + + + + + + | eGFR if not | >60Comment: GLOMERULAR | >=60 | [facility] | | | | FILTRATION | mL/min/1.73m2 | [facility] | | | [place] | RATE,ESTIMATED | | MEDICAL | | | | mL/min/1.84e9Rdgf than | | CENTER - | | [...] ST. | [address] | [place] | [phone] | | [facility] | | [address] | | | - LABORATORY | | [...] [address] | [place] | [phone] | | [facility] | | [address] | | | - LABORATORY | | [...] [address] | [place] | [phone] | | [facility] | | [address] | | | - LABORATORY | | [...]
--- OUTSIDE RECORDS SUMMARY | ~2019-11-30 | XMS | Encounter Summary ---
Demographics + + + | Address | [address] | | | [place] [address] | + + + | Home Phone [...] Team Providers + +------+ + | Care Over [employer] Targeting Supervisor Name | Role | Phone | + +------+ + PCP | Unavailable | + +------+ + Encounter Details +--------+ + + + + | Date | Type | Department | Care Team | Description | +--------+ + + + + | 09/07/ | Hospital | [facility] | Kevin Ricci | | | 1999 - | Encounter | HOSPITAL [address] Jr., MD [address] | | | | | [place], [place] | [place], [place] | | | 09/09/ | | [address] | [address] | | | 1999 | | [phone] | | | +--------+ + + + [...]
--- OUTSIDE RECORDS SUMMARY | ~2019-11-30 | XMS | Encounter Summary ---
Demographics + + + | Address | [address] | | | [place] [address] | + + + | Home Phone [...] Providers + +------+ + | Care Resident Services Coordinator Name | Role | Phone [...] | | | | | | | ([facility]) | | | | | | [...] | | | | | | | ([facility]) | | | +--------+--------+ + + + + Encounter Details +--------+ + + + + | Date | Type | Department | Care Team | Description | +--------+ + + + + | 09/26/ | Hospital | [facility] | Juanjose Ross MD | Diabetic | | 2017 - | Encounter | [facility] | [address] | ketoacidosis without | | | | [address] | [place] | coma associated | | 09/28/ | | [place] [address] | [address] | with type 1 diabetes | | 2017 | | [phone] | | mellitus (HCC) | | | | | Yancy Barron MD | (Primary Dx); | | | | | [address] | Hyperkalemia; Acute | | | | | [place] | renal failure, | | | | | [address] | unspecified acute | | | | [...] week. 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 aka: LANTUS insulin lispro 100 units/mL injection (cartridge) Inject 2 Units under the skin 3 times daily (before meals). Plus sliding scale. aka: humaLOG Discontinued Medications aspirin 81 mg chewable tablet WO-Alakussmizgpc-Jnmnaxauvfrwl 10-5-325 MG Caps HYDROcodone-acetaminophen 5-325 mg per tablet aka: NORCO STRATTERA 100 MG capsule Generic drug: atoMOXetine Studies With Pending Results: None Greater than 30 minutes were spent on discharge and coordination of post-hospital care. Electronically signed by: Yancy Barron MD, 09/28/2016 13:20 [facility] documented in this enc ounter Discharge Instructions [...] [] Doctor's office: [x] Pharmacy list names: [facility] Ayla, Anthony Aguila [] [facility] MOLD SETTER (Prescription Monitoring Program) [x] [employer] insurance reported [...] Marijuana lungs 3 times weekly unknown Other: [facility] reports patient appears non-compliant with his medications. Medication: Prior to Admission Sig: Patient taking differently SYNTHETIC SOIL BLOCKS PULPER as: Atomoxetine 100 mg 1 tablet every morning Pt states taking but last filled for 30 day suppl y in June XO-Zngkodfqbgktj-Ynrugsltdzpuf 10-5-325 mg 1 capsule daily as needed [...] performed and electronically signed by Luis Araujo, Manager Order 017 19:12 Reviewed by: Hannah Mijares PHARMD [...] | | | POC | | | [facility] | | | | | | [...] [address] | [place] | [phone] | | [facility] | | [address] | | | - LABORATORY | | [...] + | [facility] | [address] | [place] | [phone] | | [facility] | | [address] | | | - LABORATORY | | [...] mL/min/1.73m2 | [facility] | | | [place] | RATE,ESTIMATED | | MEDICAL | | | | mL/min/1.18t1Ligr than | | CENTER - | | [...] [address] | [place] | [phone] | | [facility] | | [address] | | | - LABORATORY | | [...] [address] | [place] | [phone] | | [facility] | | [address] | | | [...] | | | POC | | | [facility] | | | | [...] + | [facility] | [address] | [place] | [phone] | | [facility] | | [address] | | | - LABORATORY | | [...] [address] | [place] | [phone] | | [facility] | | [address] | | | - LABORATORY | | [...] [address] | [place] | [phone] | | [facility] | | [address] | | | - LABORATORY | | [...] + | [facility] | [address] | [place] | [phone] | | [facility] | | [address] | | | - LABORATORY | | [...] mL/min/1.73m2 | [facility] | | | [place] | RATE,ESTIMATED | | MEDICAL | | | | mL/min/1.57v7Fism than | | CENTER - | | [...] [address] | [place] | [phone] | | [facility] | | [address] | | | - LABORATORY | | [...] [address] | [place] | [phone] | | [facility] | | [address] | | | - LABORATORY | | [...] + | [facility] | [address] | [place] | [phone] | | [facility] | | [address] | | | - LABORATORY | | [...] | mL/min/1.73m2 | [facility] | | | [place] | RATE,ESTIMATED | | MEDICAL | | | | mL/min/1.97k2Mgie than | | CENTER - | | [...] | [address] | [place] | [phone] | | [facility] | | [address] | | | - LABORATORY | | [...] - 1.030 | [facility] | | | [place], | | | [facility] | | [...] + | [facility] | [address] | [place] | [phone] | | [facility] | | [address] | | | - LABORATORY | | [...] [address] | [place] | [phone] | | [facility] | | [address] | | | - LABORATORY | | [...] [address] | [place] | [phone] | | [facility] | | [address] | | | - LABORATORY | | [...] (H) | 7 - 18 mg/dL | [place] | | | | | | [facility] | | | | | | MEDICAL | | | | | | CENTER - | | | | | | LABORATORY | | + + + + + + | Creatinine | 1.17 | 0.60 - 1.30 | [place] | | | | | mg/dL | [facility] | | | | | | MEDICAL | | | | | | CENTER - | | | | | | LABORATORY | | + + + + + + | eGFR if not | >60Comment: GLOMERULAR | >=60 | [facility] | | | | FILTRATION | mL/min/1.73m2 | [facility] | | | [place] | RATE,ESTIMATED | | MEDICAL | | | | mL/min/1.32w5Pfgh than | | CENTER - | | [...] [address] | [place] | [phone] | | [facility] | | [address] | | | - LABORATORY | | [...] ST. | [address] | [place], [place] | [phone] | | [facility] | | [address] | | | - LABORATORY | | [...] + | [facility] | [address] | [place] | [phone] | | [facility] | | [address] | | | - LABORATORY | | [...] [address] | [place] | [phone] | | [facility] | | [address] | | | - LABORATORY | | [...] + | [facility] | [address] | [place] | [phone] | | [facility] | | [address] | | | - LABORATORY | | [...] 1.43 (H) | 0.60 - 1.30 | [facility] | | | | | mg/dL | [facility] | | | | | | MEDICAL | | | | | | CENTER - | | | | | | LABORATORY | | + + + + + + | eGFR if not | 56 (L)Comment: | >=60 | [place] | | | | GLOMERULAR FILTRATION | mL/min/1.73m2 | [facility] | | | [place] | RATE,ESTIMATED | | MEDICAL | | | | mL/min/1.50v8Pjqf than | | CENTER - | | [...] | 8.4 | 8.3 - 10.5 | [facility] | | | | | mg/dL | [facility] | | | | [...] [address] | [place] | [phone] | | [facility] | | [address] | | | - LABORATORY | | [...] | | POC | | | [facility] | | | | | | MEDICAL [...] + | [facility] | [address] | [place] | [phone] | | [facility] | | [address] | | | - LABORATORY | | [...] ST. | [address] | [place] | [phone] | | [facility] | | [address] | | | - LABORATORY | | [...] + | [facility] | [address] | [place] | [phone] | | [facility] | | [address] | | | - LABORATORY | | [...] + | [facility] | [address] | [place], [place] | [phone] | | [facility] | | [address] | | | - LABORATORY | | [...] mL/min/1.73m2 | [facility] | | | [place] | RATE,ESTIMATED | | MEDICAL | | | | mL/min/1.89t3Nmgw than | | CENTER - | | [...] [address] | [place] | [phone] | | [facility] | | [address] | | | - LABORATORY | | [...] + | [facility] | [address] | [place] | [phone] | | [facility] | | [address] | | | - LABORATORY | | [...] [address] | [place] | [phone] | | [facility] | | [address] | | | - LABORATORY | | [...] [address] | [place] | [phone] | | [facility] | | [address] | | | - LABORATORY | | [...] [address] | [place] | [phone] | | [facility] | | [address] | | | - LABORATORY | | [...] 1.89 (H) | 0.60 - 1.30 | [facility] | | | | | mg/dL [...] mL/min/1.73m2 | [facility] | | | [place] | RATE,ESTIMATED | | MEDICAL | | | | mL/min/1.56a5Dldg than | | CENTER - | | [...] [address] | [place] | [phone] | | [facility] | | [address] | | | - LABORATORY | | [...] [address] | [place] | [phone] | | [facility] | | [address] | | | - [...] ST. | [address] | [place], [place] | [phone] | | [facility] | | [address] | | | - LABORATORY | | [...] [address] | [place] | [phone] | | [facility] | | [address] | | | - LABORATORY | | [...] | | | PCR | | | [facility] | | | | | | MEDICAL | | | | | | CENTER - | | | | | | LABORATORY | | + + + + + + | Influenza B | Negative | Negative | [facility] | | | PCR | | | [facility] | | | | [...] [address] | [place] | [phone] | | [facility] | | [address] | | | - LABORATORY | | [...] + | [facility] | [address] | [place] | [phone] | | [facility] | | [address] | | | - LABORATORY | | [...] [address] | [place] | [phone] | | [facility] | | [address] | | | - LABORATORY | | [...] not | 39 (L)Comment: | >=60 | [facility] | | | | GLOMERULAR FILTRATION | mL/min/1.73m2 | [facility] | | | [place] | RATE,ESTIMATED | | MEDICAL | | | | mL/min/1.75z6Akzg than | | CENTER - | | [...] [address] | [place] | [phone] | | [facility] | | [address] | | | - LABORATORY | | [...] [address] | [place] | [phone] | | [facility] | | [address] | | | - LABORATORY | | [...] + | [facility] | [address] | [place] | [phone] | | [facility] | | [address] | | | - LABORATORY | | [...] MD | | | | | | ([id number]) on 09/27/2016 | | | | | [...] [address] | [place] | [phone] | | [facility] | | [address] | | | - LABORATORY | | [...] + + | Performing | Address | City/State/[facility] | Phone Number | | Organization | | | | + + + + + | [facility] | [address] | [place] | [phone] | | [facility] | | [address] | | | - LABORATORY | | [...] mL/min/1.73m2 | [facility] | | | [place] | RATE,ESTIMATED | | MEDICAL | | | | mL/min/1.38n3Mevx than | | CENTER - | | [...] [address] | [place] | [phone] | | [facility] | | [address] | | | - LABORATORY | | [...] [address] | [place] | [phone] | | [facility] | | [address] | | | - LABORATORY | | [...] + | [facility] | [address] | [place] | [phone] | | [facility] | | [address] | | | - LABORATORY | | [...] [address] | [place] | [phone] | | [facility] | | [address] | | | - LABORATORY | | [...] [address] | [place] | [phone] | | [facility] | | [address] | | | - LABORATORY | | [...] | [employer] | | | [facility] | | | | | | MEDICAL [...] [address] | [place] | [phone] | | [facility] | | [address] | | | - LABORATORY | | [...] + | [facility] | [address] | [place] | [phone] | | [facility] | | [address] | | | - LABORATORY | | | | + + + + + POC Glucose (09/26/2016 10:42 PM PDT) + + + + + + | Component | Value | Ref Range | Performed | Pathologist | | | | | At | Signature | + + + + + + | Glucose, | >600 (HH) | 70 - 150 mg/dL | [facility] | [address] | [place], [place] | [phone] | | [facility] | | [address] | | | - LABORATORY | | [...] | | | | | | | 7890-6483 Use NIGHT DOSE for | | | | | | | doses scheduled: HS, 3AM, | | | | | | | Nighttime 5380-6515, | | | | | | + [...] | | | | | NPO, Daytime 0112-0808 Use NIGHT | | | | | | | DOSE for doses scheduled: | | | | | | | HS, 3AM, Nighttime [id number], | | | | | | + [...] | | | | | | | [facility] 09/26/16 at 2325 | | | | [...] PDT | | | | | ONCE, [facility] 09/26/16 at 2305, For 1 | [...] PDT | | | | | ONCE, [facility] 09/26/16 at 2355, For 1 | [...]
--- OUTSIDE RECORDS SUMMARY | ~2019-11-30 | XMS | Encounter Summary ---
Demographics + + + | Address | [address] | | | [place] [address] | + + + | Home Phone [...] Team Providers + +------+ + | Care Laboratory Technician Name | Role | Phone | [...] + + | 05/07/ | Hospital | [facility] | Vicky Méndez | Diabetic | | 2017 - | Encounter | [facility] ICU [address] | [place] [address] | ketoacidosis without | | | | [place], | [address] [place], | coma associated | | 05/09/ | | [place] [address] | [place] [address] | with type 1 diabetes | | 2017 | | [phone] | [phone] | mellitus (HCC) | | | | | | (Primary Dx); | | | | | Dougie Yin MD | Nausea; IDDM | | | | | [address] | (insulin dependent | | | | | [place], [place] | diabetes mellitus) | | | | | [address] | (HCC) | | | | | [...] documented as of this encounter Discharge Summaries oDugie Yin MD - 05/09/2017 8:42 AM PSTFormatting of this note might be different fr om the original. [place] HOSPITALIST DISCHARGE SUMMARY Pt. Name/Age/: Joni [...] skin 3 times daily (with meals). aka: [facility] insulin lispro 100 units/mL injection (pen) MODERATE [...] for meals and NIGHT for bedtime aka: [facility] COURSE: Please refer to the H&P [...] week. 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 Electronically signed by: Dougie Yin MD, 05/09/2017 8:42 [facility] Portions of this chart may have been created with [employer] voice recognition software. Occasi onal wrong-word or [...] be sent through Care Everywhere.Diabetic Ketoac idosis (Czech)documented in this encounter Medications at Time of [...] might be different fr om the original. [place] HOSPITALIST PROGRESS NOTE Patient: Joni Kwon : 1980: Age: 36 y.o. MedRec: [id number] Admission date: 05/07/2017 Hospital day # : [...] Procedure Component Value Units Date/Time Culture, MRSA [[id number]] Collected: 05/07/17 6021 Order Status: Completed Lab Status: Final result [...] PPX: HSQ Dougie Yin MD 05/09/2017 7:57 [facility] Dougie Crawford MD - 05/08/2017 7:43 AM PST [facility] [place] HOSPITALIST PROGRESS NOTE Patient: Joni Kwon : 1980: Age: 36 y.o. MedRec: [id number] Admission date: 05/07/2017 Hospital day # : [...] significant change Confirmed by CARYN THORPE, [place] ([id number]) on 05/08/2017 7:10:41 AM Basic Metabolic Panel [...] Procedure Component Value Units Date/Time Culture, MRSA [[id number]] Collected: 05/07/171730 Order Status: Sent Lab Status: [...] PPX: HSQ Dougie Yin MD 05/08/2017 7:43 [facility] Romelia Henry, Zac rmD - 05/07/2017 [...] and directions X Pharmacy list names: [facility] [place] [facility] [place] [facility] FURNACE OPERATOR (Prescription Monitoring Program) X [employer] insurance [...] performed and electronically signed by Morenita García, Asphalt Plant Operator 05/07 16:12 Reviewed by Romelia Valdez, PharmKosta [...] | | POC | | | [facility] | | | | | [...] [address] | [place] | [phone] | | [facility] | | [address] | | | - LABORATORY | | [...] [address] | [place] | [phone] | | [facility] | | [address] | | | - LABORATORY | | [...] [address] | [place] | [phone] | | [facility] | | [address] | | | - LABORATORY | | [...] mL/min/1.73m2 | [facility] | | | [place] | RATE,ESTIMATED | | MEDICAL | | | | mL/min/1.35u4Jxul than | | CENTER - | | [...] | 8.4 | 8.3 - 10.5 | [facility] | | | | | mg/dL | [...] [address] | [place] | [phone] | | [facility] | | [address] | | | - LABORATORY | | [...] [address] | [place] | [phone] | | [facility] | | [address] | | | - LABORATORY | | [...] [address] | [place] | [phone] | | [facility] | | [address] | | | - LABORATORY | | [...] + | [facility] | [address] | [place] | [phone] | | [facility] | | [address] | | | - LABORATORY | | [...] mL/min/1.73m2 | [facility] | | | [place] | RATE,ESTIMATED | | MEDICAL | | | | mL/min/1.67x5Lnzj than | | CENTER - | | [...] + | [facility] | [address] | [place] | [phone] | | [facility] | | [address] | | | - LABORATORY | | [...] | mL/min/1.73m2 | [facility] | | | [place] | RATE,ESTIMATED | | MEDICAL | | | | mL/min/1.71b4Gnet than | | CENTER - | | [...] [address] | [place] | [phone] | | [facility] | | [address] | | | - LABORATORY | | [...] + | [facility] | [address] | [place] | [phone] | | [facility] | | [address] | | | - LABORATORY | | [...] [address] | [place] | [phone] | | [facility] | | [address] | | | - LABORATORY | | [...] [address] | [place] | [phone] | | [facility] | | [address] | | | - LABORATORY | | [...] [address] | [place] | [phone] | | [facility] | | [address] | | | - LABORATORY | | [...] [address] | [place] | [phone] | | [facility] | | [address] | | | - LABORATORY | | [...] | mL/min/1.73m2 | [facility] | | | [place] | RATE,ESTIMATED | | MEDICAL | | | | mL/min/1.35s9Jlfh than | | CENTER - | | [...] [address] | [place] | [phone] | | [facility] | | [address] | | | - LABORATORY | | [...] [address] | [place] | [phone] | | [facility] | | [address] | | | - LABORATORY | | [...] [address] | [place] | [phone] | | [facility] | | [address] | | | - LABORATORY | | [...] [address] | [place] | [phone] | | [facility] | | [address] | | | - LABORATORY | | [...] (H) | 7 - 18 mg/dL | [facility] | | | | | | [facility] | | | | | | MEDICAL | | | | | | CENTER - | | | | | | LABORATORY | | + + + + + + | Creatinine | 0.97 | 0.60 - 1.30 | [facility] | | | | | mg/dL | [facility] | | | | | | MEDICAL | | | | | | CENTER - | | | | | | LABORATORY | | + + + + + + | eGFR if not | >60Comment: GLOMERULAR | >=60 | [facility] | | | | FILTRATION | mL/min/1.73m2 | [facility] | | | [place] | RATE,ESTIMATED | | MEDICAL | | | | mL/min/1.58b8Xllb than | | CENTER - | | [...] + | [facility] | [address] | [place] | [phone] | | [facility] | | [address] | | | - LABORATORY | | [...] ST. | [address] | [place], [place] | [phone] | | [facility] | | [address] | | | - LABORATORY | | [...] + | [facility] | [address] | [place] | [phone] | | [facility] | | [address] | | | - LABORATORY | | [...] [address] | [place] | [phone] | | [facility] | | [address] | | | - LABORATORY | | [...] + | [facility] | [address] | [place] | [phone] | | [facility] | | [address] | | | - LABORATORY | | [...] [address] | [place] | [phone] | | [facility] | | [address] | | | - LABORATORY | | [...] [address] | [place] | [phone] | | [facility] | | [address] | | | - LABORATORY | | [...] + | [facility] | [address] | [place] | [phone] | | [facility] | | [address] | | | - LABORATORY | | [...] mL/min/1.73m2 | [facility] | | | [place] | RATE,ESTIMATED | | MEDICAL | | | | mL/min/1.97n4Htzl than | | CENTER - | | [...] [address] | [place] | [phone] | | [facility] | | [address] | | | - LABORATORY | | [...] [address] | [place] | [phone] | | [facility] | | [address] | | | - LABORATORY | | [...] + | [facility] | [address] | [place] | [phone] | | [facility] | | [address] | | | - LABORATORY | | [...] [address] | [place] | [phone] | | [facility] | | [address] | | | - LABORATORY | | [...] | | GLOMERULAR FILTRATION | mL/min/1.73m2 | [facility] | | | [place] | RATE,ESTIMATED | | MEDICAL | | | | mL/min/1.49d4Yrmr than | | CENTER - | | [...] [address] | [place] | [phone] | | [facility] | | [address] | | | - LABORATORY | | [...] + | [facility] | [address] | [place] | [phone] | | [facility] | | [address] | | | - LABORATORY | | [...] [address] | [place] | [phone] | | [facility] | | [address] | | | - LABORATORY | | [...] [address] | [place] | [phone] | | [facility] | | [address] | | | - [...] mL/min/1.73m2 | [facility] | | | [place] | RATE,ESTIMATED | | MEDICAL | | | | mL/min/1.90c2Gxuq than | | CENTER - | | [...] [address] | [place] | [phone] | | [facility] | | [address] | | | - LABORATORY | | [...] [address] | [place] | [phone] | | [facility] | | [address] | | | - LABORATORY | | [...] | | | | HAWA RUBIN MD ([id number]) | | | | | | on [...] + | [facility] | [address] | [place] | [phone] | | [facility] | | [address] | | | - LABORATORY | | [...] + | [facility] | [address] | [place] | [phone] | | [facility] | | [address] | | | - LABORATORY | | [...] + | [facility] | [address] | [place] | [phone] | | [facility] | | [address] | | | - LABORATORY | | [...] [address] | [place] | [phone] | | [facility] | | [address] | | | - LABORATORY | | [...] mL/min/1.73m2 | [facility] | | | [place] | RATE,ESTIMATED | | MEDICAL | | | | mL/min/1.10t3Diwv than | | CENTER - | | [...] [address] | [place] | [phone] | | [facility] | | [address] | | | - LABORATORY | | [...] [address] | [place] | [phone] | | [facility] | | [address] | | | - LABORATORY | | [...] [address] | [place] | [phone] | | [facility] | | [address] | | | - LABORATORY | | [...] ST. | [address] | [place] | [phone] | | [facility] | | [address] | | | - LABORATORY | | [...] | | | | | | | [facility] 05/08/17 at 1200, CORRECTION | | [...] | | | | | NPO, Daytime [id number] Use NIGHT | | | | | | | DOSE for doses scheduled: | | | | | | | HS, 3AM, Nighttime [id number], | | | | | | + [...]
--- OUTSIDE RECORDS SUMMARY | ~2019-11-30 | XMS | Clinical Summary ---
Demographics + + + | Address | [address] | | | [place] [address] | + + + | Home Phone | | + + + | Preferred Language | Unknown | + + + | Marital Status | Single | + + + | Scientology Affiliation | 1001 | + + + | Race | Unknown | + + + | Ethnic Group | Unknown | + + + Author + + + | Author | [facility] | | | and Ryana | + + + | Organization | [facility] | | | [...] Team Providers + +------+ + | Care Material Controller Name | Role | Phone | [...] | [employer] | MOD[employer] | [id number] | 01/22/20 | [phone] | | Medica | | MEDICAID HMO | HEALTH | | 16-Pre | 1 | | id | | | MDCD | | sent | | | | | | [place] | | | | | | + +--------+ +--------+ +---------+--------+ | [employer] | [employer] | [id number] | 05/17/ | [phone] | | Medica | | MEDICAID HMO [...] lisa | | | 9 (Home) | [id number] | + +--------+ +--------+ + + | Joni Kwon | Person | Self | [birth year] | [address] | | [place] | al/Fam | | 1981 | [phone] | [address] [place] | | | lisa | | | 9 (Home) | [address] | + +--------+ +--------+ + + | Joni Kwon | Mental | Self | [birth year] | | [address] | | Kevin | | | 1980 | [phone] | [address] [place] | | | Health | | | 9 ([place]) | [address] | + +--------+ +--------+ + + Advance Directives + + + + + | Type | Date Recorded | Patient | Explanation | | | | Grievance Coordinator | | + + + + + | Power of | | | | | Pediatric Immunologist | | | | + + + [...]
--- OUTSIDE RECORDS SUMMARY | ~2019-11-30 | XMS | Encounter Summary ---
Demographics + + + | Address | [address] | | | [place] [address] | + + + | Home Phone [...] Team Providers + +------+ + | Care Force Variation Equipment Tender Name | Role | Phone | [...] + | 10/03/ | Hospital | [facility] | Edgar Nunez, | Diabetic | | 2017 - | Encounter | [facility] ICU [address] | MD [address] | ketoacidosis without | | | | Levels [place], | [place], [place] | coma associated | | 10/04/ | | [place] [address] | [address] | with type 1 diabetes | | 2017 | | [phone] | | mellitus (HCC) | | | | | Efren Burnham P, | (Primary Dx); | | | | | DO [address] | Hyperkalemia; Acute | | | | | MS LLH21 [place], | kidney injury (HCC); | | | | | [place] [address] | Acute hyperkalemia; | | | | | [phone] | Acute renal | | | | [...] type | | | | | | ([facility]); Sensation of | | | | | [...] last month, he was admitted here at [facility] 09/26 through 09/28 and then week later was admitted at [facility] for the DKA a s [...] signed by: Siddhartha Pierson MD, 10/04/2016 8:33 [facility] documented in this encounter Discharge Instructions [...] resources below can help you learn more: [place] [employer] Nffeztfldht769-504-6408sfi.diabetes.org Lighthouse Szgwpvkpzpivt416-475-2131dbi.lighthouse.org National Eye [id number] www.nei.nih.gov Hormone Health Ztcmeia287-794-5094 www.hormone.org Date Last Reviewed: 10/22/201519998154-8937 [employer] [address] [place] [address], [place] [address]. All righ ts reserved. This information is [...] bimart garcia and [facility] garcia [x] [place] State DRAMA PROFESSOR (Prescription Monitoring Program) [x] [employer] insurance reported [...] performed and electronically signed by Morenita García Shipmaster 7 19:25 Reviewed by: Hannah Mijares PHARMD [...] + | [facility] | [address] | [place] | [phone] | | [facility] | | [address] | | | - LABORATORY | | [...] [address] | [place] | [phone] | | [facility] | | [address] | | | - LABORATORY | | [...] | | | mg/dL | [facility] | | | | | | MEDICAL | | | | | | CENTER - | | | | | | LABORATORY | | + + + + + + | eGFR if not | >60Comment: GLOMERULAR | >=60 | [facility] | | | | FILTRATION | mL/min/1.73m2 | [facility] | | | SWAZI | RATE,ESTIMATED | | MEDICAL | | | | mL/min/1.80o2Gfww than | | CENTER - | | [...] | | | mg/dL | [facility] | | | | | [...] + | [facility] | [address] | [place] | [phone] | | [facility] | | [address] | | | - LABORATORY | | [...] [address] | [place] | [phone] | | [facility] | | [address] | | | - LABORATORY | | [...] [address] | [place] | [phone] | | [facility] | | [address] | | | - LABORATORY | | [...] [address] | [place] | [phone] | | [facility] | | [address] | | | - LABORATORY | | [...] + | [facility] | [address] | [place] | [phone] | | [facility] | | [address] | | | - LABORATORY | | [...] [address] | [place] | [phone] | | [facility] | | [address] | | | - LABORATORY | | [...] + | [facility] | [address] | [place] | [phone] | | [facility] | | [address] | | | - LABORATORY | | [...] + | [facility] | [address] | [place] | [phone] | | [facility] | | [address] | | | - LABORATORY | | [...] mL/min/1.73m2 | [facility] | | | SWAZI | RATE,ESTIMATED | | MEDICAL | | | | mL/min/1.17s9Hscz than | | CENTER - | | [...] [address] | [place] | [phone] | | [facility] | | [address] | | | - LABORATORY | | [...] | | | | | | [employer] | | | | | [...] ST. | [address] | [place], [place] | [phone] | | [facility] | | [address] | | | - LABORATORY | | [...] [address] | [place] | [phone] | | [facility] | | [address] | | | - LABORATORY | | [...] [address] | [place] | [phone] | | [facility] | | [address] | | | - LABORATORY | | [...] [address] | [place] | [phone] | | [facility] | | [address] | | | - LABORATORY | | [...] + | [facility] | [address] | [place] | [phone] | | [facility] | | [address] | | | - LABORATORY | | [...] + | [facility] | [address] | [place] | [phone] | | [facility] | | [address] | | | - LABORATORY | | [...] [facility] | | | | | | [facility] | | [...] mL/min/1.73m2 | [facility] | | | SWAZI | RATE,ESTIMATED | | MEDICAL | | | | mL/min/1.90h1Qqam than | | CENTER - | | [...] [address] | [place] | [phone] | | [facility] | | [address] | | | - LABORATORY | | [...] [address] | [place] | [phone] | | [facility] | | [address] | | | - LABORATORY | | [...] + | [facility] | [address] | [place] | [phone] | | [facility] | | [address] | | | - LABORATORY | | [...] [address] | [place] | [phone] | | [facility] | | [address] | | | - LABORATORY | | [...] | | | Lavender | | | [facility] | | | Top Tube | | [...] [address] | [place] | [phone] | | [facility] | | [address] | | | - LABORATORY | | [...] + | [facility] | [address] | [place] | [phone] | | [facility] | | [address] | | | - LABORATORY | | [...] mL/min/1.73m2 | [facility] | | | S[place]I | RATE,ESTIMATED | | MEDICAL | | | | mL/min/1.37a2Lcui than | | CENTER - | | [...] | | | mg/dL | [facility] | | | | | | MEDICAL | | | | | | CENTER - | | | | | | LABORATORY | | + + + + + + | BUN/Creatin | 15.1 | | [facility] | | | ine Ratio | | | [facility] | | | | | [...] [address] | [place] | [phone] | | [facility] | | [address] | | | - LABORATORY | | [...] | | | | | | [employer] | | | | | [...] ST. | [address] | [place] | [phone] | | [facility] | | [address] | | | - LABORATORY | | [...] [address] | [place] | [phone] | | [facility] | | [address] | | | - LABORATORY | | [...] ST. | [address] | [place], [place] | [phone] | | [facility] | | [address] | | | - LABORATORY | | [...] + | [facility] | [address] | [place] | [phone] | | [facility] | | [address] | | | - LABORATORY | | [...] ST. | [address] | [place], [place] | [phone] | | [facility] | | [address] | | | - LABORATORY | | [...] | | | | HAWA RUBIN MD ([id number]) | | | | | | on [...] ST. | [address] | [place] | [phone] | | [facility] | | [address] | | | - LABORATORY | | [...] [address] | [place] | [phone] | | [facility] | | [address] | | | - LABORATORY | | [...] + | [facility] | [address] | [place] | [phone] | | [facility] | | [address] | | | - LABORATORY | | [...] HDL | 28 - 83 mg/dL | [facility] | | | | Reference Range as [...] [address] | [place] | [phone] | | [facility] | | [address] | | | - LABORATORY | | [...] | | | | | | [employer] | | | | | [...] [address] | [place] | [phone] | | [facility] | | [address] | | [...] [address] | [place] | [phone] | | [facility] | | [address] | | | - LABORATORY | | [...] [address] | [place] | [phone] | | [facility] | | [address] | | | - LABORATORY | | [...] [address] | [place] | [phone] | | [facility] | | [address] | | | - LABORATORY | | [...] | mL/min/1.73m2 | [facility] | | | S[place]ZI | RATE,ESTIMATED | | MEDICAL | | | | mL/min/1.17w5Zlgy than | | CENTER - | | [...] [address] | [place] | [phone] | | [facility] | | [address] | | | - LABORATORY | | [...] [address] | [place] | [phone] | | [facility] | | [address] | | | - LABORATORY | | [...] | | | C (101.5 F), Starting [facility] | | | | | | | [...] | | | | measurements. , Starting [facility] | | | | | | | [...] | | | | | dose on [facility] 10/03/16 at 0915 | | | | [...] | | | (after last modification) on [facility] | | | | | | | [...] | | | | | NPO, Daytime 7015-3652 Use NIGHT | | | | | | | DOSE for doses scheduled: | | | | | | | HS, 3AM, Nighttime 9342-0770, | | | | | | + [...] AM PDT | | | | | [facility] 10/03/16 at 0915, If | | | [...] PDT | | | | | ONCE, [facility] 10/03/16 at 0405, For 1 | | [...]
--- OUTSIDE RECORDS SUMMARY | ~2019-11-30 | XMS | Encounter Summary ---
Demographics + + + | Address | [address] | | | [place] [address] | + + + | Home Phone [...] Team Providers + +------+ + | Care Enameler Name | Role | Phone | + +------+ + PCP | Unavailable | + +------+ + Encounter Details +--------+ + + + + | Date | Type | Department | Care Team | Description | +--------+ + + + + | 04/07/ | Hospital | [facility] | Ami Young | | | 2008 | Encounter | CONVERSION | A, [facility] [address] | | | | | [address] [employer], [place] | | | | [address] | [address] | | | | | [place], [place] | [phone] | | | | | [address] | | | | | | [phone] | | | +--------+ + + + [...]
--- OUTSIDE RECORDS SUMMARY | ~2019-11-30 | XMS | Encounter Summary ---
Demographics + + + | Address | [address] | | | [place] [address] | + + + | Home Phone [...] Team Providers + +------+ + | Care Digital Analyst Name | Role | Phone | + +------+ + PCP | Unavailable | + +------+ + Encounter Details +--------+ + + + + | Date | Type | Department | Care Team | Description | +--------+ + + + + | 04/21/ | Hospital | [facility] | Abhi Berger | | | 1999 - | Encounter | [address] | MD [address] | | | | | [place], [place] | [place], [place] | | | 04/22/ | | [address] | [address] | | | 1999 | | [phone] | | | +--------+ + + + [...]
--- OUTSIDE RECORDS SUMMARY | ~2019-11-30 | XMS | Encounter Summary ---
Demographics + + + | Address | [address] | | | [place] [address] | + + + | Home Phone [...] Team Providers + +------+ + | Care Insurance Account Manager Name | Role | Phone | + +------+ + PCP | Unavailable | + +------+ + Encounter Details +--------+ + + + + | Date | Type | Department | Care Team | Description | +--------+ + + + + | 02/23/ | [facility] | [facility] | Abhi Berger | | | 2003 | Encounter | [facility] [address] | MD [address] | | | | | [address] | [place], [place] | | | | | [place] [address] | [address] | | | | | [phone] | | | +--------+ + + + [...]
--- OUTSIDE RECORDS SUMMARY | ~2019-11-30 | XMS | Encounter Summary ---
Demographics + + + | Address | [address] | | | [place] [address] | + + + | Home Phone | | + + + | Preferred Language | Unknown | + + + | Marital Status | Single | + + + | Adventist Affiliation | 1001 | + + + | Race | Unknown | + + + | Ethnic Group | Unknown | + + + Author + + + | Author | [facility] | | | and Ryana | + + + | Organization | [facility] | | [...] Team Providers + +------+ + | Care Building Superintendent Name | Role | Phone | + +------+ + PCP | Unavailable | + +------+ + Encounter Details +--------+ + + + + | Date | Type | Department | Care Team | Description | +--------+ + + + + | 03/11/ | Hospital | [facility] | Shivam Garzon | | | 2003 | Encounter | [facility] | DO [address] | | | | | [facility] | [place], [place] | | | | | [address] | [address] | | | | | [phone] | | | +--------+ + + + [...]
--- OUTSIDE RECORDS SUMMARY | ~2019-11-30 | XMS | Encounter Summary ---
Demographics + + + | Address | [address] | | | [place] [address] | + + + | Home Phone | | + + + | Preferred Language | Unknown | + + + | Marital Status | Single | + + + | Shinto Affiliation | [id number] | + + + [...] Team Providers + +------+ + | Care Belt Repairer Name | Role | Phone | + +------+ + PCP | Unavailable | + +------+ + Encounter Details +--------+ + + + + | Date | Type | Department | Care Team | Description | +--------+ + + + + | 02/05/ | Hospital | [facility] | Cody Kan | Diabetic | | 2016 - | Encounter | [facility] | Iglesia Mccall MD [address] | ketoacidosis without | | | | CARE FLOOR [address] | coma associated | | 02/07/ | | [address] | [place] [address] | with type 2 diabetes | | 2016 | | [place], [place] | [phone] | mellitus (HCC) | | | | [address] | | | | | | [phone] | | | +--------+ + + + [...] 1427 Date of Service: 02/08/16935 Status: Signed Ditching Machine Operator: Lanre Pan MD (Physician) Related Notes: Original Note by Lanre Pan MD (Physician) filed at 02/08/16 1015 [facility] Service: Hospitalist Discharge Summary Date of [...] episodes of DKA, and recently moved to [place], [place]. The patient typically takes Lantus pens, though according to the patie nt he has not been storing them appropriately and may have left them out of the fridge for a prolonged period, and the patient indicates that he may have missed a few doses. He began f ling ill a few days prior to his admission. He was initially seen at [place] emergency department and diagnosed with diabetic ketoaci [...] to schedule appointment with the PCP in [place]. DISCHARGE DIAGNOSES 1. Diabetic ketoacidosis in a type 1 diabetic. 2. History of reported schizophrenia, stable. 3. History of tobaccoism. Patient was counseled on tobacco cessation. 4. Electrolyte imbalance, secondary to diabetic ketoacidosis treatment. Past Medical History Diagnosis Date Schizophrenia (HCC) 02/06/2016 Attention-deficit hyperactivity disorder, predominantly hyperactive type 02/06/2016 Depression 02/06/2016 Leukocytosis (leucocytosis) 02/06/2016 Diabetes mellitus type I ([facility]) History reviewed. No pertinent past surgical [...] on file. Follow up: Margarita Gonzales MD [address] [place] [address] follow up for diabetes Medication List CONTINUE [...] 02/08/161254 Date of Service: 02/08/161254 Status: Signed Ditching Machine Operator: Rosario Ocampo RN (Registered Nurse) Discharge instructions given, all questions answered, patient/managed care provider expresses understa nding. Prescriptions given. IV removed. VSS. Patient left ambulatory to a private residence with family onver danie Transaction, Provider Unknown - 02/08/2016 9:52 AM PDT Case Management by Rhea Kaiser RN at 02/08/16 0952 Author: Rhea Kaiser RN Service: (none) Author Type: Registered Nurse Filed: 02/08/16 1000 Date of Service: 02/08/16951 Status: Addendum Ditching Machine Operator: Rhea Kaiser RN (Registered Nurse) Related Notes: Original Note by Rhea Kaiser RN (Registered Nurse) filed at 02/08/16 0 955 Discharge Planning: CM contacted [facility] [place] [phone], staff noted Shilpi scott is assigned to his case, left VM message with call back number for counselor to contact CM . Discharge Planning: spoke to CM Shilpi Mirza return call, advised [facility] office will contac t patient this [...] Date of Service: 02/08/16 0640 Status: Signed Ditching Machine Operator: Gayle Gomez RN (Registered Nurse) No [...] Date of Service: 08/17/16 1820 Status: Addendum Ditching Machine Operator: Aracelis Strong RN (Registered Nurse) Related [...] apologetic he did not call for b [place] sugar check first. Post prandial sugar 298. 8 units insulin administered. Currently amb [facility]. Report given to ERIKA Araujo. Aracelis Strong RN onver danie Transaction, Provider Unknown - 02/07/2016 3:27 PM PDT Case Management by Rhea Kaiser RN at 02/07/16 1527 Author: Rhea Kaiser RN Service: (none) Author Type: Registered Nurse Filed: 02/07/16 1855 Date of Service: 02/07/16 1527 Status: Addendum Ditching Machine Operator: Rhea Kaiser RN (Registered Nurse) Related Notes: Original Note by Rhea Kaiser RN (Registered Nurse) filed at 02/07/16 1 527 02/07/16 9926 Discharge Planning Evaluation Admitting Diagnosis diabetic ketoacidosis without coma assoc w/ type I DM Readmission No Living Arrangements Alone Support Systems Parent Type of Residence Private residence Independent with ADL's Yes Independent with Mobility Yes Home Care Services No Caregiver after Discharge Other (comment) (spoke with patient and with mom Blossom [phone], patient resides with mom, sleeps on the couch, patient and mom would like patient to live in assisted living ) Mental Status Oriented Power of Charge Account Authorizer No Anticipated Discharge Plan Post Acute Care [...] male, whom arrived via life flight [facility]. Patient with dx of DM type I, schizophrenia. Patient resided in [facility] for 5 years. Patient and patient mother Blossom [phone] would like leonardo ent to live independent of parent in [facility] or assisted living in [facility]. CM to contact Brody with [facility] in [place] for information concerning patient. Patient states he [...] provider on file. Patient's insurance: Medicaid [facility] Coverage concerns: no Medication coverage/concerns: non compliant with DM I CBG and insulin use Community resources utilized / needed: patient is requesting halfway placement and help to get his life back on track Assistance in transportation: patient's mother will transport [place] [phone] Identification of any specific education / training: [...] Date of Service: 02/07/16 1001 Status: Signed Ditching Machine Operator: Lanre Pan MD (Physician) [facility] Service: Hospitalist Progress Note Hospital Day: LOS: 1 day Post-Op Day: * No surgery found * SUBJECTIVE Patient Summary: admission H and P Dr. Kan:"The patient is a 35 y.o. male wi th significant past medical history of schizophrenia, patient states last admission to [facility] was 2 years ago, ADHD, depression, type I diabetes mellitus diagnos ed at age 4 according to the patient and about 3 episodes of admissions for DKA since he mov ed to [place]. Per Dr. Dunaway, [facility] emergency room the patient and had a couple of admissions of this year for DKA. Patient had been kicked out of the [facility] had been smoking marijuan a which the patient admits. Had presented to [facility] emergency room today after a friend [...] elayed to me by Dr. Dunaway of [facility] ER, had about a week prior to admission and the patient has been laying in the [place] for the last 4 days during nothing she medications. Per mother the patient also had lost 100 pounds since october of this year. Patient was seen at the [facility] Emergency Department, was noted to be tachycardic and tachypneic I was told initially his heart rate was in the 120s, respiration was in the mid 20s, patient was refusing to answer questions or could not answer questions according to [facility], labs showed he was in DKA, he was given 2 L of IV fluid bolus w sandra there, subsequently hospitalist and ICU attending was called at [facility] for a transfer of patient, Dr. Vega recommended giving the patient bicarbonate and potassium which was done , the patient was also in the process of being given 2 more liters of normal saline and was transferred at acute care floor in [facility]. By the time admitting hospitalist and the [...] we will transition off insulin drip over [facility] htime., Appreciate Dr. Gonzales input, Levemir 10 [...] 0941 Date of Service: 02/07/16939 Status: Signed Ditching Machine Operator: Darcy Niño RD (Registered Dietitian) 02/07/16 [...] Estimated Energy Needs Total Energy Estimated Needs 8628-9482 kcal/day Method for Estimating Needs 25-30 kcal/kg [...] 02/07/16604 Date of Service: 02/07/16600 Status: Signed Ditching Machine Operator: Gayle Gomez RN (Registered Nurse) No [...] PM PDT Nurse Progress Note by Jace aYnez RN at 02/06/161621 Author: Jace Yanez RN Service: (none) Author Type: Registered Nurse Filed: 02/06/16 8586 Date of Service: 02/06/161621 Status: Signed Ditching Machine Operator: Jace Yanez RN (Registered Nurse) Pts mother, Blossom, came by hospital to see son and will head back to [place]. She stat es that pts schizophrenia started at age 19 or 20, and that pt often thinks he is other peop le (ie, TuPa), and often mixes fiction with reality. [facility] [place] [facility] and on for the last 5 years, and has been in [place] since September. [employer] has been working to find him placement [...] | | | Fingerstick | performed at [facility];[address] | | LAB | | | | [address];[place] | | | | | | [address] | | | | + + + [...] | | | Fingerstick | performed at [facility];[address] | | LAB | | | | [address];[place] | | | | | | [address] | | | | + + + [...] EXTERNAL | | | | performed at [facility] [address] | K/uL | LAB | | | | [address], | | | | | | [place] [address] | | | | + + + + + + | Red Blood | 3.53 (L)Comment: Testing | 4.20 - 5.70 | EXTERNAL | | | Cells | performed at [facility], [address] | M/uL | LAB | | | Counted | [address], | | | | | | [place] [address] | | | | + + + + + + | Hemoglobin | 11.5 (L)Comment: Testing | 13.2 - 17.0 | EXTERNAL | | | | performed at [facility], [address] | g/dL | LAB | | | | [address], | | | | | | [place] [address] | | | | + + + + + + | Hematocrit, | 32.3 (L)Comment: Testing | 39.0 - 50.0 % | EXTERNAL | | | POC | performed at [facility], [address] | | LAB | | | | [address], | | | | | | [place] [address] | | | | + + + + + + | MCV | 91.6Comment: Testing | 80.0 - 100.0 fl | EXTERNAL | | | | performed at [facility], [address] | | LAB | | | | [address], | | | | | | [place] [address] | | | | + + + + + + | MCH | 32.6Comment: Testing | 27.0 - 34.0 pg | EXTERNAL | | | | performed at [facility], [address] | | LAB | | | | [address], | | | | | | [place] [address] | | | | + + + + + + | MCHC | 35.6 (H)Comment: Testing | 32.0 - 35.5 | EXTERNAL | | | | performed at [facility], [address] | g/dL | LAB | | | | [address], | | | | | | [place] [address] | | | | + + + + + + | RDW-CV | 45.1Comment: Testing | 37 - 53 fl | EXTERNAL | | | | performed at [facility], [address] | | LAB | | | | [address], | | | | | | [place] [address] | | | | + + + + + + | Platelet | 218Comment: Testing | 150 - 400 K/uL | EXTERNAL | | | Count | performed at [facility], [address] | | LAB | | | Plasma | [address], | | | | | | [place] [address] | | | | + + + + + + | MPV | 7.6Comment: Testing | fl | EXTERNAL | | | | performed at [facility], [address] | | LAB | | | | [address], | | | | | | [place] [address] | | | | + + + [...] EXTERNAL | | | | performed at [facility], [address] | | LAB | | | | [address], | | | | | | [place] [address] | | | | + + + [...] EXTERNAL | | | | performed at [facility], [address] | | LAB | | | | [address], | | | | | | [place] [address] | | | | + + + [...] | | | | | [place] [address] | | | | + + + + + + | K | 3.2 (L)Comment: Testing | 3.5 - 4.9 | EXTERNAL | | | | performed at [facility], [address] | mmol/L | LAB | | | | [address], | | | | | | [place] [address] | | | | + + + + + + | Cl | 100Comment: Testing | 99 - 109 mmol/L | EXTERNAL | | | | performed at [facility], [address] | | LAB | | | | [address], | | | | | | [place], [place] [address] | | | | + + + + + + | CO2 | 22 (L)Comment: Testing | 23 - 32 mmol/L | EXTERNAL | | | | performed at [facility], [address] | | LAB | | | | [address], | | | | | | [place] [address] | | | | + + + + + + | Anion Gap | 14Comment: Testing | 5 - 20 mmol/L | EXTERNAL | | | | performed at [facility], [address] | | LAB | | | | [address], | | | | | | [place] [address] | | | | + + + + + + | Glucose, | 282 (H)Comment: Testing | 65 - 99 mg/dL | EXTERNAL | | | Fasting | performed at [facility], [address] | | LAB | | | | [address], | | | | | | [place] [address] | | | | + + + + + + | BUN | 15Comment: Testing | 8 - 25 mg/dL | EXTERNAL | | | | performed at [facility], [address] | | LAB | | | | [address], | | | | | | [place] [address] | | | | + + + + + + | Creatinine | 0.8Comment: Testing | 0.70 - 1.30 | EXTERNAL | | | | performed at [facility], [address] | mg/dL | LAB | | | | [address], | | | | | | [place] [address] | | | | + + + + + + | BUN/Creatin | 19Comment: Testing | | EXTERNAL | | | ine Ratio | performed at [facility], [address] | | LAB | | | | [address], | | | | | | [place] [address] | | | | + + + + + + | Calcium | 7.7 (L)Comment: Testing | 8.5 - 10.5 | EXTERNAL | | | | performed at [facility], [address] | mg/dL | LAB | | | | [address], | | | | | | [place] [address] | | | | + + + + + + | Protein, | 4.8 (L)Comment: Testing | 6.3 - 8.2 g/dL | EXTERNAL | | | Total | performed at [facility], [address] | | LAB | | | | [address], | | | | | | [place] [address] | | | | + + + + + + | Albumin | 2.3 (L)Comment: Testing | 3.6 - 5.0 g/dL | EXTERNAL | | | | performed at [facility], [address] | | LAB | | | | [address], | | | | | | [place] [address] | | | | + + + + + + | Globulin | 2.5Comment: Testing | 1.3 - 4.9 g/dL | EXTERNAL | | | | performed at [facility], [address] | | LAB | | | [address], | | | | | | [place] [address] | | | | + + + + + + | A/G Ratio | 0.9 (L)Comment: Testing | 1.0 - 2.4 | EXTERNAL | | | | performed at [facility], [address] | | LAB | | | | [address], | | | | | | [place] [address] | | | | + + + + + + | Bilirubin | 0.2Comment: Testing | 0.1 - 1.5 mg/dL | EXTERNAL | | | Total | performed at [facility], [address] | | LAB | | | | [address], | | | | | | [place] [address] | | | | + + + + + + | ALP, | 87Comment: Testing | 35 - 115 U/L | EXTERNAL | | | External | performed at [facility], [address] | | LAB | | | | [address], | | | | | | [place] [address] | | | | + + + + + + | AST | 15Comment: Testing | 10 - 45 U/L | EXTERNAL | | | | performed at [facility], [address] | | LAB | | | | [address], | | | | | | [place] [address] | | | | + + + + + + | ALT | 17Comment: Testing | 10 - 65 U/L | EXTERNAL | | | | performed at [facility], [address] | | LAB | | | | [address], | | | | | | [place] [address] | | | | + + + [...] | | | | | | [place] [address] | | | | + + + [...] | | | Fingerstick | performed at [facility];[address] | | LAB | | | | [address];[place] | | | | | | [address] | | | | + + + [...] EXTERNAL | | | | performed at [facility];[address] | | LAB | | | | [facility], [place] | | | | | | [address] | | | | + + + [...] EXTERNAL | | | | performed at [facility];[address] | | LAB | | | | [address];[place] | | | | | | [address] | | | | + + + [...] EXTERNAL | | | | performed at [facility];[address] | mmol/L | LAB | | | | [address];[place] | | | | | | [address] | | | | + + + + + + | K | 3.8Comment: Testing | 3.5 - 4.9 | EXTERNAL | | | | performed at [facility];[address] | mmol/L | LAB | | | | [address];[place] | | | | | | [address] | | | | + + + + + + | Cl | 99Comment: Testing | 99 - 109 mmol/L | EXTERNAL | | | | performed at [facility];[address] | | LAB | | | | [address];[place] | | | | | | [address] | | | | + + + + + + | CO2 | 21 (L)Comment: Testing | 23 - 32 mmol/L | EXTERNAL | | | | performed at [facility];[address] | | LAB | | | | [address];[place] | | | | | | [address] | | | | + + + + + + | Anion Gap | 13Comment: Testing | 5 - 20 mmol/L | EXTERNAL | | | | performed at [facility];[address] | | LAB | | | | [address];[place] | | | | | | [address] | | | | + + + + + + | Glucose, | 241 (H)Comment: Testing | 65 - 99 mg/dL | EXTERNAL | | | Fasting | performed at [facility];[address] | | LAB | | | | [address];[place] | | | | | | [address] | | | | + + + + + + | BUN | 10Comment: Testing | 8 - 25 mg/dL | EXTERNAL | | | | performed at [facility];[address] | | LAB | | | | [address];[place] | | | | | | [address] | | | | + + + + + + | Creatinine | 0.95Comment: Testing | 0.70 - 1.30 | EXTERNAL | | | | performed at [facility];[address] | mg/dL | LAB | | | | [address];[place] | | | | | | [address] | | | | + + + + + + | BUN/Creatin | 10Comment: Testing | | EXTERNAL | | | ine Ratio | performed at [facility];[address] | | LAB | | | | [address];[place] | | | | | | [address] | | | | + + + + + + | Calcium | 7.9 (L)Comment: Testing | 8.5 - 10.5 | EXTERNAL | | | | performed at [facility];[address] | mg/dL | LAB | | | | [address];[place] | | | | | | [address] | | | | + + + [...] | | | | | | at [facility];[address] [place] [address] | | | | | | [facility];[place] [address] | | | | + + + [...] | | | Fingerstick | performed at [facility];[address] | | LAB | | | | [address];[place], [place] | | | | | | [address] | | | | + + + [...] EXTERNAL | | | | performed at [facility];[address] | | LAB | | | | [address];[place] | | | | | | [address] | | | | + + + [...] LAB | | | | performed at [facility];[address] | | | | | | [address];[place], [place] | | | | | | [address] | | | | + + + [...] EXTERNAL | | | | performed at [facility];[address] | mmol/L | LAB | | | | [address];[place] | | | | | | [address] | | | | + + + + + + | K | 3.8Comment: SLT | 3.5 - 4.9 | EXTERNAL | | | | HEMOLYSISTesting | mmol/L | LAB | | | | performed at [facility];[address] | | | | | | [address];[place] | | | | | | [address] | | | | + + + + + + | Cl | 102Comment: Testing | 99 - 109 mmol/L | EXTERNAL | | | | performed at [facility];[address] | | LAB | | | | [address];[place] | | | | | | [address] | | | | + + + + + + | CO2 | 20 (L)Comment: Testing | 23 - 32 mmol/L | EXTERNAL | | | | performed at [facility];[address] | | LAB | | | | [address];[place] | | | | | | [address] | | | | + + + + + + | Anion Gap | 12Comment: Testing | 5 - 20 mmol/L | EXTERNAL | | | | performed at [facility];[address] | | LAB | | | | [address];[place] | | | | | | [address] | | | | + + + + + + | Glucose, | 250 (H)Comment: Testing | 65 - 99 mg/dL | EXTERNAL | | | Fasting | performed at [facility];[address] | | LAB | | | | [address];[place] | | | | | | [address] | | | | + + + + + + | BUN | 8Comment: Testing | 8 - 25 mg/dL | EXTERNAL | | | | performed at [facility];[address] | | LAB | | | | [address];[place] | | | | | | [address] | | | | + + + + + + | Creatinine | 0.83Comment: Testing | 0.70 - 1.30 | EXTERNAL | | | | performed at [facility];[address] | mg/dL | LAB | | | | [address];[place] | | | | | | [address] | | | | + + + + + + | BUN/Creatin | 10Comment: Testing | | EXTERNAL | | | ine Ratio | performed at [facility];[address] | | LAB | | | | [address];[place] | | | | | | [address] | | | | + + + + + + | Calcium | 7.8 (L)Comment: Testing | 8.5 - 10.5 | EXTERNAL | | | | performed at [facility];[address] | mg/dL | LAB | | | | [address];[place], [place] | | | | | | [address] | | | | + + + [...] | | | | | | at [facility];[address];[place] [address] | | | | + + [...] | | | Fingerstick | performed at [facility];[address] | | LAB | | | | [address];[place] | | | | | | [address] | | | | + + + [...] EXTERNAL | | | | performed at [facility];[address] | | LAB | | | | [address];[place], [place] | | | | | | [address] | | | | + + + [...] EXTERNAL | | | | performed at [facility] | | LAB | | | | [facility];[place], [place] | | | | | | [address] | | | | + + + [...] EXTERNAL | | | | performed at [facility];[address] | mmol/L | LAB | | | | [address];[place] | | | | | | [address] | | | | + + + + + + | K | 3.3 (L)Comment: Testing | 3.5 - 4.9 | EXTERNAL | | | | performed at [facility];[address] | mmol/L | LAB | | | | [address];[place] | | | | | | [address] | | | | + + + + + + | Cl | 106Comment: Testing | 99 - 109 mmol/L | EXTERNAL | | | | performed at [facility];[address] | | LAB | | | | [address];[place] | | | | | | [address] | | | | + + + + + + | CO2 | 16 (L)Comment: Testing | 23 - 32 mmol/L | EXTERNAL | | | | performed at [facility];[address] | | LAB | | | | [address];[place] | | | | | | [address] | | | | + + + + + + | Anion Gap | 14Comment: Testing | 5 - 20 mmol/L | EXTERNAL | | | | performed at [facility];[address] | | LAB | | | | [address];[place] | | | | | | [address] | | | | + + + + + + | Glucose, | 340 (H)Comment: Testing | 65 - 99 mg/dL | EXTERNAL | | | Fasting | performed at [facility];[address] | | LAB | | | | [address];[place] | | | | | | [address] | | | | + + + + + + | BUN | 7 (L)Comment: Testing | 8 - 25 mg/dL | EXTERNAL | | | | performed at [facility];[address] | | LAB | | | | [address];[place] | | | | | | [address] | | | | + + + + + + | Creatinine | 0.70Comment: Testing | 0.70 - 1.30 | EXTERNAL | | | | performed at [facility];[address] | mg/dL | LAB | | | | [address];[place] | | | | | | [address] | | | | + + + + + + | BUN/Creatin | 10Comment: Testing | | EXTERNAL | | | ine Ratio | performed at [facility];[address] | | LAB | | | | [address];[place] | | | | | | [address] | | | | + + + + + + | Calcium | 6.9 (L)Comment: Testing | 8.5 - 10.5 | EXTERNAL | | | | performed at [facility];[address] | mg/dL | LAB | | | | [address];[place] | | | | | | [address] | | | | + + + [...] | | | | | | at [facility];[address];[place] [address] | | | | + + + [...] | | | Fingerstick | performed at [facility];[address] | | LAB | | | | [address];[place], [place] | | | | | | [address] | | | | + + + [...] | | | Fingerstick | performed at [facility];[address] | | LAB | | | | [address];[place] | | | | | | [address] | | | | + + + [...] | | | Fingerstick | performed at [facility];[address] | | LAB | | | | [address];[place] | | | | | | [address] | | | | + + + [...] | | | Fingerstick | performed at [facility];[address] | | LAB | | | | [address];[place] | | | | | | [address] | | | | + + + [...] EXTERNAL | | | | performed at [facility];[address] | | LAB | | | | [address];[place], [place] | | | | | | [address] | | | | + + + [...] EXTERNAL | | | | performed at [facility];[address] | | LAB | | | | [address];[place] | | | | | | [address] | | | | + + + [...] EXTERNAL | | | | performed at [facility];[address] | mmol/L | LAB | | | | [address];[place] | | | | | | [address] | | | | + + + + + + | K | 3.1 (L)Comment: Testing | 3.5 - 4.9 | EXTERNAL | | | | performed at [facility];[address] | mmol/L | LAB | | | | [address];[place] | | | | | | [address] | | | | + + + + + + | Cl | 107Comment: Testing | 99 - 109 mmol/L | EXTERNAL | | | | performed at [facility];[address] | | LAB | | | | [address];[place] | | | | | | [address] | | | | + + + + + + | CO2 | 16 (L)Comment: Testing | 23 - 32 mmol/L | EXTERNAL | | | | performed at [facility];[address] | | LAB | | | | [address];[place] | | | | | | [address] | | | | + + + + + + | Anion [place] | 13Comment: Testing | 5 - 20 mmol/L | EXTERNAL | | | | performed at [facility];[address] | | LAB | | | | [address];[place] | | | | | | [address] | | | | + + + + + + | Glucose, | 173 (H)Comment: Testing | 65 - 99 mg/dL | EXTERNAL | | | Fasting | performed at [facility];[address] | | LAB | | | | [address];[place] | | | | | | [address] | | | | + + + + + + | BUN | 7 (L)Comment: Testing | 8 - 25 mg/dL | EXTERNAL | | | | performed at [facility];[address] | | LAB | | | | [address];[place] | | | | | | [address] | | | | + + + + + + | Creatinine | 0.63 (L)Comment: Testing | 0.70 - 1.30 | EXTERNAL | | | | performed at [facility];888 | mg/dL | LAB | | | | [address];[place] | | | | | | [address] | | | | + + + + + + | BUN/Creatin | 11Comment: Testing | | EXTERNAL | | | ine Ratio | performed at [facility];[address] | | LAB | | | | [address];[place] | | | | | | [address] | | | | + + + + + + | Calcium | 7.2 (L)Comment: Testing | 8.5 - 10.5 | EXTERNAL | | | | performed at [facility];888 | mg/dL | LAB | | | | [facility];[place], [place] | | | | | | [address] | | | | + + + [...] | | | | | | at [facility];[address];[place] [address] | | | | + + + [...] | | | Fingerstick | performed at [facility] | | LAB | | | | [address];[place] | | | | | | [address] | | | | + + + [...] | | | Fingerstick | performed at [facility];[address] | | LAB | | | | [address];[place], [place] | | | | | | [address] | | | | + + + [...] | | | Fingerstick | performed at [facility];[address] | | LAB | | | | [address];[place] | | | | | | [address] | | | | + + + [...] + + | Historically converted procedure from [employer] environment | EXTERNAL LAB | + [...] | | | Fingerstick | performed at [facility];[address] | | LAB | | | | [address];[place], [place] | | | | | | [address] | | | | + + + [...] EXTERNAL | | | | performed at [facility], [address] | K/uL | LAB | | | | [address], | | | | | | [place] [address] | | | | + + + + + + | Red Blood | 3.17 (L)Comment: Testing | 4.20 - 5.70 | EXTERNAL | | | Cells | performed at [facility], [address] | M/uL | LAB | | | Counted | [address], | | | | | | [place] [address] | | | | + + + + + + | Hemoglobin | 10.2 (L)Comment: Testing | 13.2 - 17.0 | EXTERNAL | | | | performed at [facility], [address] | g/dL | LAB | | | | [address], | | | | | | [place] [address] | | | | + + + + + + | Hematocrit, | 29.6 (L)Comment: Testing | 39.0 - 50.0 % | EXTERNAL | | | POC | performed at [facility], [address] | | LAB | | | | [address], | | | | | | [place] [address] | | | | + + + + + + | MCV | 93.3Comment: Testing | 80.0 - 100.0 fl | EXTERNAL | | | | performed at [facility], [address] | | LAB | | | | [address], | | | | | | [place] [address] | | | | + + + + + + | MCH | 32.0Comment: Testing | 27.0 - 34.0 pg | EXTERNAL | | | | performed at [facility], [address] | | LAB | | | | [address], | | | | | | [place] [address] | | | | + + + + + + | MCHC | 34.3Comment: Testing | 32.0 - 35.5 | EXTERNAL | | | | performed at [facility], [address] | g/dL | LAB | | | | [address], | | | | | | [place] [address] | | | | + + + + + + | RDW-CV | 46.4Comment: Testing | 37 - 53 fl | EXTERNAL | | | | performed at [facility], [address] | | LAB | | | | [address], | | | | | | [place] [address] | | | | + + + + + + | Platelet | 209Comment: Testing | 150 - 400 K/uL | EXTERNAL | | | Count | performed at [facility], [address] | | LAB | | | Plasma | [address], | | | | | | [place] [address] | | | | + + + + + + | MPV | 7.5Comment: Testing | fl | EXTERNAL | | | | performed at [facility], [address] | | LAB | | | | [address], | | | | | | [place] [address] | | | | + + + + + + | Differentia | AUTOMATEDComment: | | EXTERNAL | | | l Type | Testing performed at | | LAB | | | | [facility], [address] | | | | | | [place] | | | | | | [address] | | | | + + + + + + | % Segmented | 78.26Comment: Testing | % | EXTERNAL | | | | performed at [facility], [address] | | LAB | | | Neutrophils | [address], | | | | | | [place] [address] | | | | + + + + + + | % | 14.07Comment: Testing | % | EXTERNAL | | | Lymphocytes | performed at [facility], [address] | | LAB | | | | [address], | | | | | | [place] [address] | | | | + + + + + + | % Monocytes | 6.80Comment: Testing | % | EXTERNAL | | | | performed at [facility], [address] | | LAB | | | | [address], | | | | | | [place] [address] | | | | + + + + + + | % | 0.69Comment: Testing | % | EXTERNAL | | | Eosinophils | performed at [facility], [address] | | LAB | | | | [address], | | | | | | [place] [address] | | | | + + + + + + | % Basophils | 0.18Comment: Testing | % | EXTERNAL | | | | performed at [facility], [address] | | LAB | | | | [address], | | | | | | [place] [address] | | | | + + + + + + | Absolute | 6.75Comment: Testing | 1.90 - 7.40 | EXTERNAL | | | Segmented | performed at [facility], [address] | K/uL | LAB | | | Neutrophils | [address], | | | | | | [place] [address] | | | | + + + + + + | Absolute | 1.21Comment: Testing | 1.00 - 3.90 | EXTERNAL | | | Lymphocytes | performed at [facility], [address] | K/uL | LAB | | | | [address], | | | | | | [place] [address] | | | | + + + + + + | Absolute | 0.59Comment: Testing | 0.00 - 0.80 | EXTERNAL | | | Monocytes | performed at [facility], [address] | K/uL | LAB | | | | [address], | | | | | | [place] [address] | | | | + + + + + + | Absolute | 0.06Comment: Testing | 0.00 - 0.50 | EXTERNAL | | | Eosinophils | performed at [facility], [address] | K/uL | LAB | | | | [address], | | | | | | [place] [address] | | | | + + + + + + | Absolute | 0.02Comment: Testing | 0.00 - 0.10 | EXTERNAL | | | Basophils | performed at [facility], [address] | K/uL | LAB | | | | [address], | | | | | | [place] [address] | | | | + + + [...] EXTERNAL | | | | performed at [facility];[address] | | LAB | | | | [address];[place], [place] | | | | | | [address] | | | | + + + [...] EXTERNAL | | | | performed at [facility] | | LAB | | | | [facility];[place], [place] | | | | | | [address] | | | | + + + [...] EXTERNAL | | | | performed at [facility];[address] | mmol/L | LAB | | | | [address];[place] | | | | | | [address] | | | | + + + + + + | K | 2.9 (L)Comment: Testing | 3.5 - 4.9 | EXTERNAL | | | | performed at [facility];[address] | mmol/L | LAB | | | | [address];[place] | | | | | | [address] | | | | + + + + + + | Cl | 108Comment: Testing | 99 - 109 mmol/L | EXTERNAL | | | | performed at [facility];[address] | | LAB | | | | [address];[place] | | | | | | [address] | | | | + + + + + + | CO2 | 15 (L)Comment: Testing | 23 - 32 mmol/L | EXTERNAL | | | | performed at [facility];[address] | | LAB | | | | [address];[place] | | | | | | [address] | | | | + + + + + + | Anion Gap | 14Comment: Testing | 5 - 20 mmol/L | EXTERNAL | | | | performed at [facility];[address] | | LAB | | | | [address];[place] | | | | | | [address] | | | | + + + + + + | Glucose, | 197 (H)Comment: Testing | 65 - 99 mg/dL | EXTERNAL | | | Fasting | performed at [facility];[address] | | LAB | | | | [address];[place] | | | | | | [address] | | | | + + + + + + | BUN | 8Comment: Testing | 8 - 25 mg/dL | EXTERNAL | | | | performed at [facility];[address] | | LAB | | | | [address];[place] | | | | | | [address] | | | | + + + + + + | Creatinine | 0.64 (L)Comment: Testing | 0.70 - 1.30 | EXTERNAL | | | | performed at [facility];[address] | mg/dL | LAB | | | | [address];[place] | | | | | | [address] | | | | + + + + + + | BUN/Creatin | 12Comment: Testing | | EXTERNAL | | | ine Ratio | performed at [facility];[address] | | LAB | | | | [address];[place] | | | | | | [address] | | | | + + + + + + | Calcium | 7.1 (L)Comment: Testing | 8.5 - 10.5 | EXTERNAL | | | | performed at [facility];888 | mg/dL | LAB | | | | [address];[place] | | | | | | [address] | | | | + + + [...] | | | | | | at [facility];[address];[place] [address] | | | | + + + [...] | | | Fingerstick | performed at [facility];[address] | | LAB | | | | [address];[place], [place] | | | | | | [address] | | | | + + + [...] | | | Fingerstick | performed at [facility];[address] | | LAB | | | | [address];[place] | | | | | | [address] | | | | + + + [...] | | | Fingerstick | performed at [facility];[address] | | LAB | | | | [address];[place] | | | | | | [address] | | | | + + + [...] | | | Fingerstick | performed at [facility] | | LAB | | | | [address];[place] | | | | | | [address] | | | | + + + [...] EXTERNAL | | | | performed at [facility];[address] | | LAB | | | | [address];[place], [place] | | | | | | [address] | | | | + + + [...] EXTERNAL | | | | performed at [facility];[address] | | LAB | | | | [address];[place], [place] | | | | | | [address] | | | | + + + [...] EXTERNAL | | | | performed at [facility];[address] | mmol/L | LAB | | | | [address];[place] | | | | | | [address] | | | | + + + + + + | K | 3.0 (L)Comment: Testing | 3.5 - 4.9 | EXTERNAL | | | | performed at [facility];[address] | mmol/L | LAB | | | | [address];[place] | | | | | | [address] | | | | + + + + + + | Cl | 108Comment: Testing | 99 - 109 mmol/L | EXTERNAL | | | | performed at [facility];[address] | | LAB | | | | [address];[place] | | | | | | [address] | | | | + + + + + + | CO2 | 14 (LL)Comment: CALLED | 23 - 32 mmol/L | EXTERNAL | | | | TO CODY Swain RN/CATHI AT | | LAB | | | | 0134 BY MWREAD BACK | | | | | | RESULTS VERIFIEDTesting | | | | | | performed at [facility];[address] | | | | | | [address];[place] | | | | | | [address] | | | | + + + + + + | Anion Gap | 14Comment: Testing | 5 - 20 mmol/L | EXTERNAL | | | | performed at [facility];[address] | | LAB | | | | [address];[place] | | | | | | [address] | | | | + + + + + + | Glucose, | 213 (H)Comment: Testing | 65 - 99 mg/dL | EXTERNAL | | | Fasting | performed at [facility];[address] | | LAB | | | | [address];[place] | | | | | | [address] | | | | + + + + + + | BUN | 10Comment: Testing | 8 - 25 mg/dL | EXTERNAL | | | | performed at [facility];[address] | | LAB | | | | [address];[place] | | | | | | [address] | | | | + + + + + + | Creatinine | 0.70Comment: Testing | 0.70 - 1.30 | EXTERNAL | | | | performed at [facility];888 | mg/dL | LAB | | | | [address];[place] | | | | | | [address] | | | | + + + + + + | BUN/Creatin | 14Comment: Testing | | EXTERNAL | | | ine Ratio | performed at [facility];[address] | | LAB | | | | [address];[place] | | | | | | [address] | | | | + + + + + + | Calcium | 6.9 (L)Comment: Testing | 8.5 - 10.5 | EXTERNAL | | | | performed at [facility];888 | mg/dL | LAB | | | | [address];[place] | | | | | | [address] | | | | + + + [...] | | | | | | at [facility];[address] | | | | | | [address];[place] [address] | | | | + + + [...] | | | Fingerstick | performed at [facility];[address] | | LAB | | | | [address];[place], [place] | | | | | | [address] | | | | + + + [...] | | | Fingerstick | performed at [facility];[address] | | LAB | | | | [...] | | | Fingerstick | performed at [facility];[address] | | LAB | | | | [address];[place], [place] | | | | | | [address] | | | | + + + [...] EXTERNAL | | | | performed at [facility] | | LAB | | | | [address];[place] | | | | | | [address] | | | | + + + [...] EXTERNAL | | | | performed at [facility];[address] | | LAB | | | | [address];[place], [place] | | | | | | [address] | | | | + + + [...] EXTERNAL | | | | performed at [facility];888 | mmol/L | LAB | | | | [address];[place] | | | | | | [address] | | | | + + + + + + | K | 3.3 (L)Comment: Testing | 3.5 - 4.9 | EXTERNAL | | | | performed at [facility];888 | mmol/L | LAB | | | | [address];[place] | | | | | | [address] | | | | + + + + + + | Cl | 111 (H)Comment: Testing | 99 - 109 mmol/L | EXTERNAL | | | | performed at [facility];[address] | | LAB | | | | [address];[place] | | | | | | [address] | | | | + + + + + + | CO2 | 16 (L)Comment: Testing | 23 - 32 mmol/L | EXTERNAL | | | | performed at [facility];[address] | | LAB | | | | [address];[place] | | | | | | [address] | | | | + + + + + + | Anion Gap | 13Comment: Testing | 5 - 20 mmol/L | EXTERNAL | | | | performed at [facility];[address] | | LAB | | | | [address];[place] | | | | | | [address] | | | | + + + + + + | Glucose, | 125 (H)Comment: Testing | 65 - 99 mg/dL | EXTERNAL | | | Fasting | performed at [facility];[address] | | LAB | | | | [address];[place] | | | | | | [address] | | | | + + + + + + | BUN | 10Comment: Testing | 8 - 25 mg/dL | EXTERNAL | | | | performed at [facility];[address] | | LAB | | | | [address];[place] | | | | | | [address] | | | | + + + + + + | Creatinine | 0.82Comment: Testing | 0.70 - 1.30 | EXTERNAL | | | | performed at [facility];888 | mg/dL | LAB | | | | [address];[place] | | | | | | [address] | | | | + + + + + + | BUN/Creatin | 12Comment: Testing | | EXTERNAL | | | ine Ratio | performed at [facility];[address] | | LAB | | | | [address];[place] | | | | | | [address] | | | | + + + + + + | Calcium | 6.6 (L)Comment: Testing | 8.5 - 10.5 | EXTERNAL | | | | performed at [facility];888 | mg/dL | LAB | | | | [address];[place], [place] | | | | | | [address] | | | | + + + [...] | | | | | | at [facility];[address];[place] [address] | | | | + + + [...] | | | Fingerstick | performed at [facility];[address] | | LAB | | | | [address];[place] | | | | | | [address] | | | | + + + [...] | | | Fingerstick | performed at [facility];[address] | | LAB | | | | [address];[place], [place] | | | | | | [address] | | | | + + + [...] | | | Fingerstick | performed at [facility];[address] | | LAB | | | | [address];[place] | | | | | | [address] | | | | + + + [...] | | | Fingerstick | performed at [facility];[address] | | LAB | | | | [address];[place] | | | | | | [address] | | | | + + + [...] EXTERNAL | | | | performed at [facility];[address] | | LAB | | | | [address];[place] | | | | | | [address] | | | | + + + [...] EXTERNAL | | | | performed at [facility];[address] | | LAB | | | | [address];[place], [place] | | | | | | [address] | | | | + + + [...] | | LAB | | | | [facility] [address];[place] [address] | | | | + + + [...] EXTERNAL | | | | performed at [facility];888 | mmol/L | LAB | | | | [address];[place] | | | | | | [address] | | | | + + + + + + | K | 2.7 (LL)Comment: CALLED | 3.5 - 4.9 | EXTERNAL | | | | NURSING UNITREAD BACK | mmol/L | LAB | | | | RESULTS VERIFIEDIVAN K | | | | | | AT 1748 JGRTesting | | | | | | performed at [facility];[address] | | | | | | [address];[place] | | | | | | [address] | | | | + + + + + + | Cl | 110 (H)Comment: Testing | 99 - 109 mmol/L | EXTERNAL | | | | performed at [facility];[address] | | LAB | | | | [address];[place] | | | | | | [address] | | | | + + + + + + | CO2 | 15 (L)Comment: Testing | 23 - 32 mmol/L | EXTERNAL | | | | performed at [facility];[address] | | LAB | | | | [address];[place] | | | | | | [address] | | | | + + + + + + | Anion Gap | 15Comment: Testing | 5 - 20 mmol/L | EXTERNAL | | | | performed at [facility];[address] | | LAB | | | | [address];[place] | | | | | | [address] | | | | + + + + + + | Glucose, | 133 (H)Comment: Testing | 65 - 99 mg/dL | EXTERNAL | | | Fasting | performed at [facility];[address] | | LAB | | | | [address];[place] | | | | | | [address] | | | | + + + + + + | BUN | 14Comment: Testing | 8 - 25 mg/dL | EXTERNAL | | | | performed at [facility];[address] | | LAB | | | | [address];[place] | | | | | | [address] | | | | + + + + + + | Creatinine | 0.92Comment: Testing | 0.70 - 1.30 | EXTERNAL | | | | performed at [facility];888 | mg/dL | LAB | | | | [address];[place] | | | | | | [address] | | | | + + + + + + | BUN/Creatin | 15Comment: Testing | | EXTERNAL | | | ine Ratio | performed at [facility];[address] | | LAB | | | | [address];[place] | | | | | | [address] | | | | + + + + + + | Calcium | 6.5 (L)Comment: Testing | 8.5 - 10.5 | EXTERNAL | | | | performed at [facility];888 | mg/dL | LAB | | | | [address];[place] | | | | | | [address] | | | | + + + [...] | | | | | | at [facility];[address] | | | | | [address];[place] [address] | | | | + + + [...] | | | Fingerstick | performed at [facility];[address] | | LAB | | | | [address];[place], [place] | | | | | | [address] | | | | + + + [...] | | | Fingerstick | performed at [facility];[address] | | LAB | | | | [address];[place] | | | | | | [address] | | | | + + + [...] | | | Fingerstick | performed at [facility];[address] | | LAB | | | | [address];[place] | | | | | | [address] | | | | + + + [...] | | | Fingerstick | performed at [facility];[address] | | LAB | | | | [address];[place] | | | | | | [address] | | | | + + + [...] EXTERNAL | | | | performed at [facility];[address] | | LAB | | | | [address];[place], [place] | | | | | | [address] | | | | + + + [...] EXTERNAL | | | | performed at [facility];[address] | | LAB | | | | [address];[place] | | | | | | [address] | | | | + + + [...] | | LAB | | | | [facility];[address] [place] [address] | | | | | | Bl;[place] [address] | | | | + + + [...] EXTERNAL | | | | performed at [facility];888 | mmol/L | LAB | | | | [address];[place], [place] | | | | | | [address] | | | | + + + + + + | K | 3.1 (L)Comment: Testing | 3.5 - 4.9 | EXTERNAL | | | | performed at [facility];888 | mmol/L | LAB | | | | [address];[place] | | | | | | [address] | | | | + + + + + + | Cl | 113 (H)Comment: Testing | 99 - 109 mmol/L | EXTERNAL | | | | performed at [facility];[address] | | LAB | | | | [address];[place] | | | | | | [address] | | | | + + + + + + | CO2 | 7 (LL)Comment: RESULT | 23 - 32 mmol/L | EXTERNAL | | | | READ BACK BY:CHARLES [id number] | | LAB | | | | AT 1340.EAPTesting | | | | | | performed at [facility];[address] | | | | | | [address];[place] | | | | | | [address] | | | | + + + + + + | Anion Gap | 23 (H)Comment: Testing | 5 - 20 mmol/L | EXTERNAL | | | | performed at [facility];[address] | | LAB | | | | [address];[place] | | | | | | [address] | | | | + + + + + + | Glucose, | 206 (H)Comment: Testing | 65 - 99 mg/dL | EXTERNAL | | | Fasting | performed at [facility];[address] | | LAB | | | | [address];[place] | | | | | | [address] | | | | + + + + + + | BUN | 18Comment: Testing | 8 - 25 mg/dL | EXTERNAL | | | | performed at [facility];[address] | | LAB | | | | [address];[place] | | | | | | [address] | | | | + + + + + + | Creatinine | 0.84Comment: Testing | 0.70 - 1.30 | EXTERNAL | | | | performed at [facility];888 | mg/dL | LAB | | | | [address];[place] | | | | | | [address] | | | | + + + + + + | BUN/Creatin | 21Comment: Testing | | EXTERNAL | | | ine Ratio | performed at [facility];[address] | | LAB | | | | [address];[place] | | | | | | [address] | | | | + + + + + + | Calcium | 6.7 (L)Comment: Testing | 8.5 - 10.5 | EXTERNAL | | | | performed at [facility];888 | mg/dL | LAB | | | | [address];[place] | | | | | | [address] | | | | + + + [...] | | | | | | at [facility];[address] | | | | | [address];[place] [address] | | | | + + + [...] | | | Fingerstick | performed at [facility];[address] | | LAB | | | | [address];[place] | | | | | | [address] | | | | + + + [...] | | | Fingerstick | performed at [facility];[address] | | LAB | | | | [address];[place] | | | | | | [address] | | | | + + + [...] EXTERNAL | | | | performed at [facility];[address] | | LAB | | | | [address];[place] | | | | | | [address] | | | | + + + [...] EXTERNAL | | | | performed at [facility];[address] | | LAB | | | | [address];[place], [place] | | | | | | [address] [...] EXTERNAL | | | | performed at [facility];888 | mmol/L | LAB | | | | [address];[place] | | | | | | [address] | | | | + + + + + + | K | 3.0 (L)Comment: Testing | 3.5 - 4.9 | EXTERNAL | | | | performed at [facility];888 | mmol/L | LAB | | | | [address];[place] | | | | | | [address] | | | | + + + + + + | Cl | 113 (H)Comment: Testing | 99 - 109 mmol/L | EXTERNAL | | | | performed at [facility];[address] | | LAB | | | | [address];[place] | | | | | | [address] | | | | + + + + + + | CO2 | 6 (LL)Comment: CALLED | 23 - 32 mmol/L | EXTERNAL | | | | RESULTSREAD BACK RESULTS | | LAB | | | | [id number]/KATIA Scott AT | | | | | | 1110 BY SALTesting | | | | | | performed at [facility];[address] | | | | | | [address];[place] | | | | | | [address] | | | | + + + + + + | Anion Gap | 27 (H)Comment: Testing | 5 - 20 mmol/L | EXTERNAL | | | | performed at [facility];[address] | | LAB | | | | [address];[place] | | | | | | [address] | | | | + + + + + + | Glucose, | 214 (H)Comment: Testing | 65 - 99 mg/dL | EXTERNAL | | | Fasting | performed at [facility];[address] | | LAB | | | | [address];[place] | | | | | | [address] | | | | + + + + + + | BUN | 21Comment: Testing | 8 - 25 mg/dL | EXTERNAL | | | | performed at [facility];[address] | | LAB | | | | [address];[place] | | | | | | [address] | | | | + + + + + + | Creatinine | 0.87Comment: Testing | 0.70 - 1.30 | EXTERNAL | | | | performed at [facility];[address] | mg/dL | LAB | | | | [address];[place] | | | | | | [address] | | | | + + + + + + | BUN/Creatin | 24Comment: Testing | | EXTERNAL | | | ine Ratio | performed at [facility];[address] | | LAB | | | | [address];[place] | | | | | | [address] | | | | + + + + + + | Calcium | 6.8 (L)Comment: Testing | 8.5 - 10.5 | EXTERNAL | | | | performed at [facility];[address] | mg/dL | LAB | | | | [address];[place], [place] | | | | | | [address] | | | | + + + [...] | | | | | | at [facility];[address] [facility] | | | | | | [address];[place] [address] | | | | + + + [...] | | | Fingerstick | performed at [facility];[address] | | LAB | | | | [place] Edward;[place] | | | | | | [address] | | | | + + + [...] | | | Fingerstick | performed at [facility];888 | | LAB | | | | Alexandra Edward;[place], [place] | | | | | | [address] | | | | + + + [...] | | LAB | | | | [facility];[address] | | | | | | [facility];[place] [address] | | | | + + + [...] EXTERNAL | | | | performed at [facility];888 | K/uL | LAB | | | | Alexandra Edward;[place] | | | | | | [address] | | | | + + + + + + | Red Blood | 2.80 (L)Comment: Testing | 4.20 - 5.70 | EXTERNAL | | | Cells | performed at [facility];888 | M/uL | LAB | | | Counted | Alex[address] Edward;[place] | | | | | | [address] | | | | + + + + + + | Hemoglobin | 9.1 (L)Comment: Testing | 13.2 - 17.0 | EXTERNAL | | | | performed at [facility];888 | g/dL | LAB | | | | [address];[place] | | | | | | [address] | | | | + + + + + + | Hematocrit, | 26.7 (L)Comment: Testing | 39.0 - 50.0 % | EXTERNAL | | | POC | performed at [facility];888 | | LAB | | | | [address];[place] | | | | | | [address] | | | | + + + + + + | MCV | 95.4Comment: Testing | 80.0 - 100.0 fl | EXTERNAL | | | | performed at [facility];888 | | LAB | | | | [address];[place] | | | | | | [address] | | | | + + + + + + | MCH | 32.3Comment: Testing | 27.0 - 34.0 pg | EXTERNAL | | | | performed at [facility];888 | | LAB | | | | [address];[place] | | | | | | [address] | | | | + + + + + + | MCHC | 33.9Comment: Testing | 32.0 - 35.5 | EXTERNAL | | | | performed at [facility];888 | g/dL | LAB | | | | [address];[place] | | | | | | [address] | | | | + + + + + + | RDW-CV | 47.3Comment: Testing | 37 - 53 fl | EXTERNAL | | | | performed at [facility];888 | | LAB | | | | [address];[place] | | | | | | [address] | | | | + + + + + + | Platelet | 190Comment: Testing | 150 - 400 K/uL | EXTERNAL | | | Count | performed at [facility];888 | | LAB | | | Plasma | [address];[place] | | | | | | [address] | | | | + + + + + + | MPV | 7.2Comment: Testing | fl | EXTERNAL | | | | performed at [facility];888 | | LAB | | | | [address];[place] | | | | | | [address] | | | | + + + + + + | Differentia | MANUALComment: Testing | | EXTERNAL | | | l Type | performed at [facility];888 | | LAB | | | | [address];[place] | | | | | | [address] | | | | + + + + + + | Segmented | 59Comment: Testing | % | EXTERNAL | | | Neutrophils | performed at [facility];888 | | LAB | | | Manual | [address];[place] | | | | | | [address] | | | | + + + + + + | % Bands | 24Comment: Testing | % | EXTERNAL | | | | performed at [facility];[address] | | LAB | | | | [address];[place] | | | | | | [address] | | | | + + + + + + | % | 2Comment: Testing | % | EXTERNAL | | | Metamyelocy | performed at [facility];888 | | LAB | | | ed[address] | [address];[place] | | | | | | [address] | | | | + + + + + + | Lymphocytes | 12Comment: Testing | % | EXTERNAL | | | Manual | performed at [facility];888 | | LAB | | | | [address];[place] | | | | | | [address] | | | | + + + + + + | Monocytes | 3Comment: Testing | % | EXTERNAL | | | Manual | performed at [facility];888 | | LAB | | | | [address];[place] | | | | | | [address] | | | | + + + + + + | Absolute | 5.18Comment: Testing | 1.90 - 7.40 | EXTERNAL | | | Neutrophils | performed at [facility];888 | K/uL | LAB | | | | [address];[place] | | | | | | [address] | | | | + + + + + + | Bands | 2.10 (H)Comment: Testing | 0.00 - 0.20 | EXTERNAL | | | Manual | performed at [facility];888 | K/uL | LAB | | | | [address];[place] | | | | | | [address] | | | | + + + + + + | Absolute | 0.18 (H)Comment: Testing | K/uL | EXTERNAL | | | Metamyelocy | performed at [facility];888 | | LAB | | | ed[address] | [address];[place] | | | | | | [address] | | | | + + + + + + | Absolute | 1.05Comment: Testing | 1.00 - 3.90 | EXTERNAL | | | Lymphocytes | performed at [facility];888 | K/uL | LAB | | | | [address];[place] | | | | | | [address] | | | | + + + + + + | Absolute | 0.26Comment: Testing | 0.00 - 0.80 | EXTERNAL | | | Monocytes | performed at [facility];888 | K/uL | LAB | | | | [address];[place] | | | | | | [address] | | | | + + + + + + | Platelet | ADEQUATEComment: Testing | | EXTERNAL | | | Estimate | performed at [facility];888 | | LAB | | | | [address];[place] | | | | | | [address] | | | | + + + + + + | RBC | NORMALComment: Testing | | EXTERNAL | | | Morphology | performed at [facility];[address] | | LAB | | | | [address];[place] | | | | | | [address] | | | | + + + [...] | | | | | performed at [facility];888 | | | | | | [facility];[place], [place] | | | | | | [address] | | | | + + + [...] | | | | | performed at [facility];888 | | | | | | [address] Edward;[place], [place] | | | | | | [address] | | | | + + + [...] | EXTERNAL | | | A1c | [facility] | | LAB | | | [...] | | | | | performed at [facility] [address] | | | | | [address] [facility] [address], | | | | | | [place] [address] | | | | + + + [...] | | | | | performed at [facility], [address] | | | | | | [facility], | | | | | | [place] [address] | | | | + + + [...] | | | | | performed at [facility];[address] | | | | | | [address];[place] | | | | | | [address] | | | | + + + [...] | | | | | performed at [facility];[address] | | | | | | [address];[place] | | | | | | [address] | | | | + + + [...] | | | | | performed at [facility];[address] | | | | | | [address];[place] | | | | | | [address] | | | | + + + [...] | | | | | performed at [facility];888 | | | | | | [address];[place] | | | | | | [address] | | | | + + + [...] | | | | | performed at [facility];888 | | | | | | [address];[place] | | | | | | [address] | | | | + + + + + + | BUN | 15Comment: POOR QUALITY | 8 - 25 mg/dL | EXTERNAL | | | | SPECIMEN FROM THE LINE | | LAB | | | | DRAW, CHARGES CREDITED, | | | | | | PATIENT REDRAWN.Testing | | | | | | performed at [facility];[address] | | | | | | [address];[place] | | | | | | [address] | | | | + + + [...] | | | | | performed at [facility];[address] | | | | | | [address];[place] | | | | | | [address] | | | | + + + + + + | BUN/Creatin | 26Comment: POOR QUALITY | | EXTERNAL | | | ine Ratio | SPECIMEN FROM THE LINE | | LAB | | | | DRAW, CHARGES CREDITED, | | | | | | PATIENT REDRAWN.Testing | | | | | | performed at [facility];[address] | | | | | | [address];[place] | | | | | | [id number] ON 02/05 | | | | | [...] | | | | | | at [facility];[address] [place] [address] | | | | | | [facility];[place] [address] | | | | + + + [...] | | | Fingerstick | performed at [facility];888 | | LAB | | | | [address];[place], [place] | | | | | | [address] | | | | + + + [...]
--- OUTSIDE RECORDS SUMMARY | ~2019-11-30 | XMS | Encounter Summary ---
Demographics + + + | Address | [address] | | | [place] [address] | + + + | Home Phone [...] Team Providers + +------+ + | Care Ross Carrier Driver Name | Role | Phone | [...] + + | 05/07/ | Hospital | [facility] | Vicky Méndez | Diabetic | | 2017 - | Encounter | [facility] [address] | MD Diane [address] | ketoacidosis without | | | | [place], | [address], | coma associated | | 05/09/ | | [place] [address] | [place] [address] | with type 1 diabetes | | 2017 | | [phone] | [phone] | mellitus (HCC) | | | | | | (Primary Dx); | | | | | Dougie Yin MD | Nausea; IDDM | | | | | [address] | (insulin dependent | | | | | [place], [place] | diabetes mellitus) | | | | | [address] | (HCC) | | | | | [...] might be different fr om the original. [place], [place] HOSPITALIST DISCHARGE SUMMARY Pt. Name/Age/: Joni [...] skin 3 times daily (with meals). [facility]: [facility] insulin lispro 100 units/mL injection (pen) MODERATE [...] for meals and NIGHT for bedtime aka: [facility] COURSE: Please refer to the [...] week. 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 Electronically signed by: Dougie Yin MD, 05/09/2017 8:42 [facility] Portions of this chart may have been created with [employer] voice recognition software. Occasi onal wrong-word or [...] be sent through Care Everywhere.Diabetic Ketoac idosis (Divehi)documented in this encounter Medications at Time of [...] might be different fr om the original. [place], [place] HOSPITALIST PROGRESS NOTE Patient: Joni Kwon : 1980: Age: 36 y.o. MedRec: [id number] Admission date: 05/07/2017 Hospital day # : 2 Physician author: Dougie Yin MD Today: 05/09/2017 Allergies: Allergies Allergen Reactions Haloperidol Swelling Insulin Detemir Swelling Risperidone Other (See Comments) "sleeps too long" Current Medications: Current Facility-Administered Medications Medication Dose Route Frequency Provider Last Rate Last Dose acetaminophen (TYLENOL) tablet 650 mg 650 mg Oral Q4H PRN Douige Yin MD 650 mg at 05/08/17 1923 [...] Procedure Component Value Units Date/Time Culture, MRSA [[id number]] Collected: 05/07/17 5381 Order Status: Completed Lab Status: Final result [...] PPX: HSQ Dougie Yin MD 05/09/2017 7:57 [facility] Dougie Crawford MD - 05/08/2017 7:43 AM PST [facility] [place] H[facility]PITALIST PROGRESS NOTE Patient: Joni Kwon : 1980: Age: 36 y.o. MedRec: [id number] Admission date: 05/07/2017 Hospital day # : [...] significant change Confirmed by CARYN THORPE, [place] ([id number]) on 05/08/2017 7:10:41 AM Basic Metabolic Panel [...] Procedure Component Value Units Date/Time Culture, MRSA [[id number]] Collected: 05/07/171730 Order Status: Sent Lab Status: [...] PPX: HSQ Dougie Yin MD 05/08/2017 7:43 [facility] Romelia Henry, Zac rmD - 05/07/2017 [...] and directions X Pharmacy list names: [facility] [place] [facility] [place] [facility] [employer] (Prescription Monitoring Program) X [employer] insurance reported [...] performed and electronically signed by Morenita García, Professional Driver 05/07 16:12 Reviewed by Romelia Valdez, PharmoKsta 05/07/2017 16:16 documented in thi s encounter [...] | | POC | | | [facility] | | | | | [...] [address] | [place] | [phone] | | [facility] | | [address] | | | - LABORATORY | | [address] | [place] | [phone] | | [facility] | | [address] | | | - LABORATORY | | [...] [address] | [place] | [phone] | | [facility] | | [address] | | | - LABORATORY | | [...] mL/min/1.73m2 | [facility] | | | [place] | RATE,ESTIMATED | | MEDICAL | | | | mL/min/1.99x4Izlr than | | CENTER - | | [...] | 8.4 | 8.3 - 10.5 | [facility] | | | | | mg/dL | [...] [address] | [place] | [phone] | | [facility] | | [address] | | | - LABORATORY | | [...] [address] | [place] | [phone] | | [facility] | | [address] | | | - LABORATORY | | [...] [address] | [place] | [phone] | | [facility] | | [address] | | | - LABORATORY | | [...] + | [facility] | [address] | [place] | [phone] | | [facility] | | [address] | | | - LABORATORY | | [...] mL/min/1.73m2 | [facility] | | | [place] | RATE,ESTIMATED | | MEDICAL | | | | mL/min/1.96c3Wicf than | | CENTER - | | [...] + | [facility] | [address] | [place] | [phone] | | [facility] | | [address] | | | - LABORATORY | | [...] | mL/min/1.73m2 | [facility] | | | [place] | RATE,ESTIMATED | | MEDICAL | | | | mL/min/1.29g7Lhap than | | CENTER - | | [...] [address] | [place] | [phone] | | [facility] | | [address] | | | - LABORATORY | | [...] + | [facility] | [address] | [place] | [phone] | | [facility] | | [address] | [...] [address] | [place] | [phone] | | [facility] | | [address] | | | - LABORATORY | | [...] [address] | [place] | [phone] | | [facility] | | [address] | | | - LABORATORY | | [...] [address] | [place] | [phone] | | [facility] | | [address] | | | - LABORATORY | | [...] [address] | [place] | [phone] | | [facility] | | [address] | | | - LABORATORY | | [...] | mL/min/1.73m2 | [facility] | | | [place] | RATE,ESTIMATED | | MEDICAL | | | | mL/min/1.87o9Aoqf than | | CENTER - | | [...] [address] | [place] | [phone] | | [facility] | | [address] | | | - LABORATORY | | [...] [address] | [place] | [phone] | | [facility] | | [address] | | | - LABORATORY | | [...] [address] | [place] | [phone] | | [facility] | | [address] | | | - LABORATORY | | [...] [address] | [place] | [phone] | | [facility] | | [address] | | | - LABORATORY | | [...] (H) | 7 - 18 mg/dL | [facility] | | | | | | [facility] | | | | | | MEDICAL | | | | | | CENTER - | | | | | | LABORATORY | | + + + + + + | Creatinine | 0.97 | 0.60 - 1.30 | [facility] | | | | | mg/dL | [facility] | | | | | | MEDICAL | | | | | | CENTER - | | | | | | LABORATORY | | + + + + + + | eGFR if not | >60Comment: GLOMERULAR | >=60 | [facility] | | | | FILTRATION | mL/min/1.73m2 | [facility] | | | [place] | RATE,ESTIMATED | | MEDICAL | | | | mL/min/1.30l4Ijto than | | CENTER - | | [...] + | [facility] | [address] | [place] | [phone] | | [facility] | | [address] | | | - LABORATORY | | [...] ST. | [address] | [place], [place] | [phone] | | [facility] | | [address] | | | - LABORATORY | | [...] + | [facility] | [address] | [place] | [phone] | | [facility] | | [address] | | | - LABORATORY | | [...] [address] | [place] | [phone] | | [facility] | | [address] | | | - LABORATORY | | [...] + | [facility] | [address] | [place] | [phone] | | [facility] | | [address] | | | - LABORATORY | | [...] [address] | [place] | [phone] | | [facility] | | [address] | | | - LABORATORY | | [...] [address] | [place] | [phone] | | [facility] | | [address] | | | - LABORATORY | | [...] + | [facility] | [address] | [place] | [phone] | | [facility] | | [address] | | | - LABORATORY | | [...] mL/min/1.73m2 | [facility] | | | [place] | RATE,ESTIMATED | | MEDICAL | | | | mL/min/1.54t7Irua than | | CENTER - | | [...] + | [facility] | [address] | [place] | [phone] | | [facility] | | [address] | | | - LABORATORY | | [...] [address] | [place] | [phone] | | [facility] | | [address] | | | - LABORATORY | | [...] + | [facility] | [address] | [place] | [phone] | | [facility] | | [address] | | | - LABORATORY | | [...] [address] | [place] | [phone] | | [facility] | | [address] | | | - LABORATORY | | [...] | | GLOMERULAR FILTRATION | mL/min/1.73m2 | [facility] | | | [place] | RATE,ESTIMATED | | MEDICAL | | | | mL/min/1.07m7Nchb than | | CENTER - | | [...] [address] | [place] | [phone] | | [facility] | | [address] | | | - LABORATORY | | [...] + | [facility] | [address] | [place] | [phone] | | [facility] | | [address] | | | - LABORATORY | | [...] [address] | [place] | [phone] | | [facility] | | [address] | | | - LABORATORY | | [...] [address] | [place] | [phone] | | [facility] | | [address] | | | - LABORATORY | | [...] mL/min/1.73m2 | [facility] | | | [place] | RATE,ESTIMATED | | MEDICAL | | | | mL/min/1.28g4Tplb than | | CENTER - | | [...] [address] | [place] | [phone] | | [facility] | | [address] | | | - LABORATORY | | [...] [address] | [place] | [phone] | | [facility] | | [address] | | | - LABORATORY | | [...] | | | | [place] RUBIN MD ([id number]) | | | | | | on [...] + | [facility] | [address] | [place] | [phone] | | [facility] | | [address] | | | - LABORATORY | | [...] + | [facility] | [address] | [place] | [phone] | | [facility] | | [address] | | | - LABORATORY | | [...] + | [facility] | [address] | [place] | [phone] | | [facility] | | [address] | | | - LABORATORY | | [...] [address] | [place] | [phone] | | [facility] | | [address] | | | - LABORATORY | | [...] mL/min/1.73m2 | [facility] | | | [place] | RATE,ESTIMATED | | MEDICAL | | | | mL/min/1.86k1Kqzd than | | CENTER - | | [...] [address] | [place] | [phone] | | [facility] | | [address] | | | - LABORATORY | | [...] [address] | [place] | [phone] | | [facility] | | [address] | | | - LABORATORY | | [...] [address] | [place] | [phone] | | [facility] | | [address] | | | - LABORATORY | | [...] ST. | [address] | [place] | [phone] | | [facility] | | [address] | | | - LABORATORY | | [...] | | | | | | | [facility] 05/08/17 at 1200, CORRE[place] | | | [...] | | | | | NPO, Daytime 4842-4698 Use NIGHT | | | | | | | DOSE for doses scheduled: | | | | | | | HS, 3AM, Nighttime 5318-0109, | | | | | | + [...]
--- OUTSIDE RECORDS SUMMARY | ~2019-11-30 | XMS | Encounter Summary ---
Demographics + + + | Address | [address] | | | [place] [address] | + + + | Home Phone [...] + + + | Author | [facility] | | | and Ryana | + + + | Organization | [facility] | | | [...] Team Providers + +------+ + | Care Pipeline Maintenance Supervisor Name | Role | Phone | [...] | | | | | | | ([facility]) | | | | | | | [...] | | | | | | | ([facility]) | | | +--------+--------+ + + + + Encounter Details +--------+ + + + + | Date | Type | Department | Care Team | Description | +--------+ + + + + | 06/20/ | Hospital | [facility] | ColemanSunilmelani Condon, | Diabetic | | 2016 - | Encounter | MED CTR ICU [address] | [address] | ketoacidosis without | | | | [place] [place], | [place], [place] | coma associated | | 06/21/ | | [place] [address] | [address] | with other specified | | 2015 | | [phone] | | diabetes mellitus | | | | | Kevin Gifford MD | ([facility]) (Primary Dx); | | | | | [address] | Diabetic | | | | | [place], [place] | ketoacidosis without | | | | | [address] | coma associated | | | | | | with type 1 diabetes | | | | | | mellitus ([facility]) | +--------+ + + + + Social [...] days. 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 What changed: Another medication with the same name was removed. Continue taking this medi cation, and follow the directions you see here. aka: LANTUS Unchanged Medications Details aspirin 81 mg chewable tablet Take 81 mg by mouth Daily. WW-Uogeqbkrvuifs-Rrxzqniozarou 10-5-325 MG Caps Take 1 capsule by [...] signed by: Santino Blake MD, 06/21/2016 17:44 [facility] documented in this [...] | | 0 | | | | IL-Bkuljoultjkid-Ipg | mouth Daily as | | | [...] of this encounter Progress Notes Ayala Han, [facility] - 06/20/2016 9:53 PM PSTFormatting of this note might be different fro m the original. PHARMACY SERVICES: ADMISSION MEDICATION REVIEW Joni Kwon is a 35 y.o. male admitted on 06/20/2016. Patient is not a reliable historian. Patient preferred pharmacies closed. Med history techn rose will call 06/21/2016 @ 6959 to obtain current medication list and update LINE UP EXAMINER medicatio ns as necessary. Location of Patient [...] Prior to Admission Sig: Patient taking differently LINE UP EXAMINER as: Insulin Glargine 100 u/ml 15 units nightly 9 units in the morning and 6 units in the evenin g Medication added: Medication: Prior to Admission Sig: RZ-Jixxqsffhjotg-Isoswkmnsisff 10-5-325 mg 1 cap daily as needed for sinus congestion Medication review performed and electronically signed by Luis Araujo Clothes Ironer 06/20 21:44 Reviewed by Ayala Han [facility] 06/20/2016 21:53 documented in this [...] [address] | [place] | [phone] | | [facility] | | [address] | | | - LABORATORY | | [...] | 0.65 | 0.60 - 1.30 | [facility] | | | | | mg/dL | [facility] | | | | | | MEDICAL | | | | | | CENTER - | | | | | | LABORATORY | | + + + + + + | eGFR if not | >60Comment: GLOMERULAR | >=60 | [place] | | | | FILTRATION | mL/min/1.73m2 | [facility] | | | MOZAMBICAN | RATE,ESTIMATED | | MEDICAL | | | | mL/min/1.05e2Rerl than | | CENTER - | | [...] + | [facility] | [address] | [place] | [phone] | | [facility] | | [address] | | | - LABORATORY | | [...] ST. | [address] | [place], [place] | [phone] | | [facility] | | [address] | | | - LABORATORY | | [...] | | | FILTRATION | mL/min/1.73m2 | [facility] | | | MOZAMBICAN | RATE,ESTIMATED | | MEDICAL | | | | mL/min/1.93d2Jlst than | | CENTER - | | [...] | | | | | mg/dL | [facility] | | | | [...] [address] | [place] | [phone] | | [facility] | | [address] | | | - LABORATORY | | [...] [address] | [place] | [phone] | | [facility] | | [address] | | | - LABORATORY | | [...] ST. | [address] | [place], [place] | [phone] | | [facility] | | [address] | | | - LABORATORY | | [...] [address] | [place] | [phone] | | [facility] | | [address] | | | - LABORATORY | | [...] | 0.74 | 0.60 - 1.30 | [place] | | | | | mg/dL | [facility] | | | | | | MEDICAL | | | | | | CENTER - | | | | | | LABORATORY | | + + + + + + | eGFR if not | >60Comment: GLOMERULAR | >=60 | [facility] | | | | FILTRATION | mL/min/1.73m2 | [facility] | | | MOZAMBICAN | RATE,ESTIMATED | | MEDICAL | | | | mL/min/1.29w4Guki than | | CENTER - | | [...] ST. | [address] | [place], [place] | [phone] | | [facility] | | [address] | | | - LABORATORY | | [...] [address] | [place] | [phone] | | [facility] | | [address] | | | - LABORATORY | | [...] + | [facility] | [address] | [place] | [phone] | | [facility] | | [address] | | | - LABORATORY | | [...] + | [facility] | [address] | [place] | [phone] | | [facility] | | [address] | | | - LABORATORY | | [...] [address] | [place] | [phone] | | [facility] | | [address] | | | - LABORATORY | | [...] | 0.64 | 0.60 - 1.30 | [facility] | | | | | mg/dL | [facility] | | | | | | MEDICAL | | | | | | CENTER - | | | | | | LABORATORY | | + + + + + + | eGFR if not | >60Comment: GLOMERULAR | >=60 | [facility] | | | | FILTRATION | mL/min/1.73m2 | [facility] | | | MOZAMBICAN | RATE,ESTIMATED | | MEDICAL | | | | mL/min/1.16c7Ywrd than | | CENTER - | | [...] + | [facility] | [address] | [place] | [phone] | | [facility] | | [address] | | | - LABORATORY | | [...] Urine | | Yellow, Straw | [facility] | | | | | | [...] - 1.030 | [facility] | | | [place], | | | [facility] | | [...] ST. | [address] | [place], [place] | [phone] | | [facility] | | [address] | | | - LABORATORY | | [...] ST. | [address] | [place] | [phone] | | [facility] | | [address] | | | - LABORATORY | | [...] + | [facility] | [address] | [place] | [phone] | | [facility] | | [address] | | | - LABORATORY | | [...] | | | | | | [employer] | | | | [...] [address] | [place] | [phone] | | [facility] | | [address] | | | - LABORATORY | | [...] + + + + + | [facility] | [address] | [place] | [phone] | | [facility] | | [address] | | | - LABORATORY | | [...] + | [facility] | [address] | [place] | [phone] | | [facility] | | [address] | | | - LABORATORY | | [...] mL/min/1.73m2 | [facility] | | | MOZAMBICAN | RATE,ESTIMATED | | MEDICAL | | | | mL/min/1.98w9Dqaz than | | CENTER - | | [...] [address] | [place] | [phone] | | [facility] | | [address] | | | - LABORATORY | | [...] [address] | [place] | [phone] | | [facility] | | [address] | | | - LABORATORY | | [...] [address] | [place] | [phone] | | [facility] | | [address] | | | - LABORATORY | | [...] | | | | HAWA RUBIN MD ([id number]) | | | | | | on [...] + | [facility] | [address] | [place] | [phone] | | [facility] | | [address] | | | - LABORATORY | | [...] + | [facility] | [address] | [place] | [phone] | | [facility] | | [address] | | | - LABORATORY | | [...] + | [facility] | [address] | [place] | [phone] | | [facility] | | [address] | | | - LABORATORY | | [...] mL/min/1.73m2 | . [facility] | | | MOZAMBICAN | RATE,ESTIMATED | | MEDICAL | | | | mL/min/1.35i9Sxgf than | | CENTER - | | [...] + | [facility] | [address] | [place] | [phone] | | [facility] | | [address] | | | - LABORATORY | | [...] ST. | [address] | [place] | [phone] | | [facility] | | [address] | | | - LABORATORY | | [...] [address] | [place] | [phone] | | [facility] | | [address] | | | - LABORATORY | | [...] [address] | [place] | [phone] | | [facility] | | [address] | | | - LABORATORY | | [...] [address] | [place] | [phone] | | [facility] | | [address] | | | - LABORATORY | | [...] [address] | [place] | [phone] | | [facility] | | [address] | | | - LABORATORY | | [...] + | [facility] | [address] | [place] | [phone] | | [facility] | | [address] | | | - LABORATORY | | [...] | | | [facility]'s OWN MED. [facility] | | | | | | | specific bin. RETURN TO PATIENT | | | | | | | AT DISCHARGE. Verified by | | | | | | | Pharmacist Lupe Tilley, [facility] | | | | | [...] | | | | | Intravenous, ONCE, [facility] 06/20/16 | | PM PST | | [...] | | | | | NPO, Daytime 0035-3379 Use NIGHT | | | | | | | DOSE for doses scheduled: | | | | | | | HS, 3AM, Nighttime 9079-7881, | | | | | | + [...] | | | | | ONCE, [facility] 06/20/16 at 1940, For 1 | | [...] | | | | | ONCE, [facility] 06/20/16 at 2050, For 1 | | [...] | | | | | CONTINUOUS, Starting [facility] 06/20/16 | | | | | | [...]
--- OUTSIDE RECORDS SUMMARY | ~2019-11-30 | XMS | Encounter Summary ---
Demographics + + + | Address | [address] | | | [place] [address] | + + + | Home Phone | | + + + | Preferred Language | Unknown | + + + | Marital Status | Single | + + + | Taoist Affiliation | 1001 | + + + | Race | Unknown | + + + | Ethnic Group | Unknown | + + + Author + + + | Author | [facility] | | | and Ryana | + + + | Organization | [facility] | [...] Team Providers + +------+ + | Care Spiral Runner Name | Role | Phone | + [...] + + | 10/03/ | Hospital | [facility] | Edgar Nunez, | Diabetic | | 2017 - | Encounter | MED CTR ICU [address] | MD [address] | ketoacidosis without | | | | [place], | [place], [place] | coma associated | | 10/04/ | | [place] [address] | [address] | with type 1 diabetes | | 2017 | | [phone] | | mellitus (HCC) | | | | | Efren Burnham P, | (Primary Dx); | | | | | DO [address] | Hyperkalemia; Acute | | | | | [place], | kidney injury (HCC); | | | | | [place] [address] | Acute hyperkalemia; | | | | | [phone] | Acute renal | | | | [...] type | | | | | | ([facility]); Sensation of | | | | | [...] last month, he was admitted here at [facility] 09/26 through 09/28 and then week later was admitted at [facility] for the DKA a s well. According [...] signed by: Siddhartha Pierson MD, 10/04/2016 8:33 [facility] documented in this encounter Discharge Instructions [...] resources below can help you learn more: [place] [employer] [id number].diabetes.org Lighthouse Anmysjyhxnoiz656-143-3754hvz.lighthouse.org National Eye Knwdlfvmy162-327-2977 www.nei.nih.gov Hormone Health Ojjyufj508-666-9579 www.hormone.org Date Last Reviewed: 10/22/201519995158-2974 [employer]. [address] [place] [address], [place] [address]. All righ ts reserved. This information is [...] bimart garcia and [facility] garcia [x] [place] SHORT ORDER COOK (Prescription Monitoring Program) [x] [employer] insurance reported [...] performed and electronically signed by Morenita García Sourcing Consultant 7 19:25 Reviewed by: Hannah Mijares PHARMD [...] + | [facility] | [address] | [place] | [phone] | | [facility] | | [address] | | | - LABORATORY | | [...] [address] | [place] | [phone] | | [facility] | | [address] | | | - LABORATORY | | [...] [facility] | | | [place] | RATE,ESTIMATED | | MEDICAL | | | | mL/min/1.61j6Jtmf than | | CENTER - | | [...] + | [facility] | [address] | [place] | [phone] | | [facility] | | [address] | | | - LABORATORY | | [...] [address] | [place] | [phone] | | [facility] | | [address] | | | - LABORATORY | | [...] [address] | [place] | [phone] | | [facility] | | [address] | | | - LABORATORY | | [...] [address] | [place] | [phone] | | [facility] | | [address] | | | - LABORATORY | | [...] + | [facility] | [address] | [place] | [phone] | | [facility] | | [address] | | | - LABORATORY | | [...] [address] | [place] | [phone] | | [facility] | | [address] | | | - LABORATORY | | [...] + | [facility] | [address] | [place] | [phone] | | [facility] | | [address] | | | - LABORATORY | | [...] + | [facility] | [address] | [place] | [phone] | | [facility] | | [address] | | | - LABORATORY | | [...] mL/min/1.73m2 | [facility] | | | [place] | RATE,ESTIMATED | | MEDICAL | | | | mL/min/1.76g4Kuny than | | CENTER - | | [...] [address] | [place] | [phone] | | [facility] | | [address] | | | - LABORATORY | | [...] | | | | | | [employer] | | | | | [...] ST. | [address] | [place], [place] | [phone] | | [facility] | | [address] | | | - LABORATORY | | [...] [address] | [place] | [phone] | | [facility] | | [address] | | | - LABORATORY | | [...] [address] | [place] | [phone] | | [facility] | | [address] | | | - LABORATORY | | [...] [address] | [place] | [phone] | | [facility] | | [address] | | | - LABORATORY | | [...] + | [facility] | [address] | [place] | [phone] | | [facility] | | [address] | | | - LABORATORY | | [...] + | [facility] | [address] | [place] | [phone] | | [facility] | | [address] | | | - LABORATORY | | [...] mL/min/1.73m2 | [facility] | | | [place] | RATE,ESTIMATED | | MEDICAL | | | | mL/min/1.21y9Ohrn than | | CENTER - | | [...] [address] | [place] | [phone] | | [facility] | | [address] | | | - LABORATORY | | [...] [address] | [place] | [phone] | | [facility] | | [address] | | | - LABORATORY | | [...] + | [facility] | [address] | [place] | [phone] | | [facility] | | [address] | | | - LABORATORY | | [...] [address] | [place] | [phone] | | [facility] | | [address] | | | - LABORATORY | | [...] | Lavender | | | [facility] | | | Top Tube [...] [address] | [place] | [phone] | | [facility] | | [address] | | | - LABORATORY | | [...] + | [facility] | [address] | [place] | [phone] | | [facility] | | [address] | | | - LABORATORY | | [...] mL/min/1.73m2 | [facility] | | | [place] | RATE,ESTIMATED | | MEDICAL | | | | mL/min/1.46w6Uusw than | | CENTER - | | [...] | | ine Ratio | | | [facility] | | | | | [...] [address] | [place] | [phone] | | [facility] | | [address] | | | - LABORATORY | | [...] | | | | | | [employer] | | | | | [...] ST. | [address] | [place] | [phone] | | [facility] | | [address] | | | - LABORATORY | | [...] [address] | [place] | [phone] | | [facility] | | [address] | | | - LABORATORY | | [...] ST. | [address] | [place], [place] | [phone] | | [facility] | | [address] | | | - LABORATORY | | [...] + | [facility] | [address] | [place] | [phone] | | [facility] | | [address] | | | - LABORATORY | | [...] ST. | [address] | [place], [place] | [phone] | | [facility] | | [address] | | | - LABORATORY | | [...] | | | | HAWA RUBIN MD ([id number]) | | | | | | on [...] ST. | [address] | [place] | [phone] | | [facility] | | [address] | | | - LABORATORY | | [...] [address] | [place] | [phone] | | [facility] | | [address] | | | - LABORATORY | | [...] + | [facility] | [address] | [place] | [phone] | | [facility] | | [address] | | | - LABORATORY | | [...] HDL | 28 - 83 mg/dL | [facility] | | | | Reference Range as [...] [address] | [place] | [phone] | | [facility] | | [address] | | | - LABORATORY | | [...] | | | | | | [employer] | | | | | [...] [address] | [place] | [phone] | | [facility] | | [address] | | | - LABORATORY | | [...] [address] | [place] | [phone] | | [facility] | | [address] | | | - LABORATORY | | [...] [address] | [place] | [phone] | | [facility] | | [address] | | | - LABORATORY | | [...] [address] | [place] | [phone] | | [facility] | | [address] | | | - LABORATORY | | [...] | mL/min/1.73m2 | [facility] | | | [place] | RATE,ESTIMATED | | MEDICAL | | | | mL/min/1.30e7Whbj than | | CENTER - | | [...] | | Total | | | [facility] | | [...] [address] | [place] | [phone] | | [facility] | | [address] | | | - LABORATORY | | [...] [address] | [place] | [phone] | | [facility] | | [address] | | | - LABORATORY | | [...] | | | C (101.5 F), Starting [facility] | | | | | | [...] | | | | measurements. , Starting [facility] | | | | | | [...] | | | | | dose on [facility] 10/03/16 at 0915 | | | [...] | | | (after last modification) on [facility] | | | | | | [...] | | | | | NPO, Daytime [id number] Use NIGHT | | | | | | | DOSE for doses scheduled: | | | | | | | HS, 3AM, Nighttime 3464-9500, | | | | | | + [...] AM PDT | | | | | [facility] 10/03/16 at 0915, If | | | [...] PDT | | | | | ONCE, [facility] 10/03/16 at 0405, For 1 | [...]
--- OUTSIDE RECORDS SUMMARY | ~2019-11-30 | XMS | Encounter Summary ---
Demographics + + + | Address | [address] | | | [place] [address] | + + + | Home Phone | | + + + | Preferred Language | Unknown | + + + | Marital Status | Single | + + + | Pentecostalism Affiliation | 1001 | + + + [...] Team Providers + +------+ + | Care Balloon Design Printer Name | Role | Phone | + [...] + + | 09/27/ | Education | [facility] | Ursula Haskins RN | Diabetic | | 2017 | | [facility] | [phone] | ketoacidosis without | | | | EDUCATION [address] | | coma associated | | | | [place], | | with type 1 diabetes | | | | [place] [address] | | mellitus (HCC) | | | | [phone] | | (Primary Dx) | +--------+ + [...]
--- OUTSIDE RECORDS SUMMARY | ~2019-11-30 | XMS | Encounter Summary ---
Demographics + + + | Address | [address] | | | [place] [address] | + + + | Home Phone | | + + + | Preferred Language | Unknown | + + + | Marital Status | Single | + + + | Evangelical Affiliation | 1001 | + + + | Race | Unknown | + + + | Ethnic Group | Unknown | + + + Author + + + | Author | [facility] | | | and Ryana | + + + | Organization | [facility] | | | [...] Team Providers + +------+ + | Care Warehouse Technician Name | Role | Phone | [...] + + | 04/09/ | Emergency | [facility] | Adi Castro | Hyperglycemia | | 2017 | | [facility] EM[facility] | Alexander Craig MD | (Primary Dx) | | | | CENTER [address] | [address] | | | | | [place] | [place] | | | | | [address] | [address] | | | | | [phone] | | | +--------+ + + + [...] J?MRN: | | | | | | [id number] | | | [id number] | | | his | | | [...] | | | St. | | | [place] | | | y H. | | [...] | | | St. | | | [place] | | | y H. | | [...] | | | St. | | | [place] | | | y H. | | [...] | | | St. | | | [place] | | | y H. | | [...] | | | St. | | | [place] | | | y H. | | [...] | | | St. | | | [place] | | | y | | | [...] [address] | [place] | [phone] | | [facility] | | [address] | | | - LABORATORY | | [...] + | [facility] | [address] | [place] | [phone] | | [facility] | | [address] | | | - LABORATORY | | [...] + | [facility] | [address] | [place] | [phone] | | [facility] | | [address] | | | - LABORATORY | | [...] | Hydroxybuty | | mmol/L | [facility] | | | rate | | [...] + | [facility] | [address] | [place] | [phone] | | [facility] | | [address] | | | - LABORATORY | | [...] + | [facility] | [address] | [place] | [phone] | | [facility] | | [address] | | | - LABORATORY | | [...] + | [facility] | [address] | [place] | [phone] | | [facility] | | [address] | | | - LABORATORY | | [...] | | MEDICAL | | | | mL/min/1.56d3Gzdm than | | CENTER - | | [...] + | [facility] | [address] | [place] | [phone] | | [facility] | | [address] | | | - LABORATORY | | [...] [address] | [place] | [phone] | | [facility] | | [address] | | | - LABORATORY | | [...] 1.001 - 1.030 | | | | [place], | | | | | | [facility], [...] ST. | [address] | [place], [place] | [phone] | | [facility] | | [address] | | | - LABORATORY | | [...]
--- OUTSIDE RECORDS SUMMARY | ~2019-11-30 | XMS | Encounter Summary ---
Demographics + + + | Address | [address] | | | [place] [address] | + + + | Home Phone [...] Team Providers + +------+ + | Care Green Prize Packer Name | Role | Phone | + +------+ + PCP | Unavailable | + +------+ + Encounter Details +--------+ + + + + | Date | Type | Department | Care Team | Description | +--------+ + + + + | 12/18/ | Hospital | [facility] | Mohsen Carranza | | | 1999 | Encounter | [facility] [address] MD Need updated | | | | | [place] | address | | | | | [address] | | | | | | [phone] | | | +--------+ + + + [...]
--- OUTSIDE RECORDS SUMMARY | ~2019-11-30 | XMS | Encounter Summary ---
Demographics + + + | Address | [address] | | | [place] [address] | + + + | Home Phone [...] Team Providers + +------+ + | Care Wheelchair Van Driver Name | Role | Phone | [...] | patient leaving | | | | [address] | | prior to being seen | | | | [phone] | | by health care | | [...] J?MRN: | | | | | | [id number] | | | [id number] | | | his | | | [...] | | | St. | | | [address] | | | y | | | [...] | | | St. | | | [address] | | | y H. | | [...] | | | St. | | | [address] | | | y H. | | [...] | | | St. | | | [address] | | | y H. | | [...] | | | St. | | | [address] | | | y H. | | [...] | | | St. | | | [address] | | | y H. | | [...] | | | St. | | | [address] | | | y | | | [...] | | | ext. | | | [phone] | | | or go | | [...]
--- OUTSIDE RECORDS SUMMARY | ~2019-11-30 | XMS | Encounter Summary ---
Demographics + + + | Address | [address] | | | [place] [address] | + + + | Home Phone [...] Team Providers + +------+ + | Care Manufacturing Maintenance Technician Name | Role | Phone | [...] + + | 05/02/ | Education | [facility] | Ursula Haskins RN | Diabetic | | 2016 | | [facility] | [phone] | ketoacidosis without | | | | EDUCATION [address] | | coma associated | | | | [place], | | with type 1 diabetes | | | | [place] [address] | | mellitus (HCC) | | | | [phone] | | | +--------+ + + + [...]
--- OUTSIDE RECORDS SUMMARY | ~2019-11-30 | XMS | Encounter Summary ---
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
--- OUTSIDE RECORDS SUMMARY | ~2019-11-30 | XMS | Encounter Summary ---
Demographics + + + | Address | [address] | | | [place] [address] | + + + | Home Phone [...] Team Providers + +------+ + | Care Surfacer Operator Name | Role | Phone | [...] + + | 09/27/ | Education | [facility] | Ursula Haskins RN | Diabetic | | 2017 | | [facility] | [phone] | ketoacidosis without | | | | EDUCATION [address] | | coma associated | | | | [place], | | with type 1 diabetes | | | | [place] [address] | | mellitus (HCC) | | | | [phone] | | (Primary Dx) | +--------+ + [...]
[~2019-11-30 00:03] MED LIST changes: +ATOMOXETINE HC100 MG PO; +DULOXETINE HCL60 MG PO; +INSULIN AS100 UNIT/3 SUB-Q
== END 2019-11-30 00:50 | disposition home or self-care (01) ==
LOC: ED 00:03
DX: H60.92 Unspecified otitis externa, left ear (principal); E10.9 Type 1 diabetes mellitus without complications; F90.9 Attention-deficit hyperactivity disorder, unspecified type; F17.200 Nicotine dependence, unspecified, uncomplicated; Z91.030 Bee allergy status; Z88.8 Allergy status to other drugs, medicaments and biological substances; Z79.899 Other long term (current) drug therapy
CPT/HCPCS: 99282; A9270

== ENCOUNTER 2020-01-12 10:56 | Emergency (ER) | payer OTHER ==
[~2020-01-12] VITALS: Ht 175.3 cm; Wt 58.2 kg
--- OUTSIDE RECORDS SUMMARY | ~2020-01-12 | XMS | Encounter Summary ---
Demographics + + + | Address | [address] | | | [place] [address] | + + + | Home Phone | | + + + | Preferred Language | Unknown | + + + | Marital Status | Single | + + + | Adventism Affiliation | 1001 | + + + | Race | Unknown | + + + | Ethnic Group | Unknown | + + + Author + + + | Author | [facility] | | | and Ryana | + + + | Organization | [facility] | | | and [...] Team Providers + +------+ + | Care Vp Production Name | Role | Phone | + +------+ + PCP | Unavailable | + +------+ + Encounter Details +--------+ + + + + | Date | Type | Department | Care Team | Description | +--------+ + + + + | 05/01/ | [facility] | [place] | Abhi Berger | | | 2003 | Encounter | FAMILY MEDICINE [address] | MD [address] | | | | | [address] | [place], [place] | | | | | [place] [address] | [address] | | | | | [phone] | | | +--------+ + + + [...]
--- OUTSIDE RECORDS SUMMARY | ~2020-01-12 | XMS | Encounter Summary ---
Demographics + + + | Address | [address] | | | [place] [address] | + + + | Home Phone | | + + + | Preferred Language | Unknown | + + + | Marital Status | Single | + + + | Worship Affiliation | 1001 | + + + | Race | Unknown | + + + | Ethnic Group | Unknown | + + + Author + + + | Author | [facility] | | | and Ryana | + + + | Organization | [facility] | | | [...] Team Providers + +------+ + | Care Sample Body Builder Name | Role | Phone | + [...] + + | 04/09/ | [facility] | [facility] | Adi Castro | Hyperglycemia | | 2017 | | [facility] | Alexander Craig MD | (Primary Dx) | | | | CENTER [address] | [address] | | | | | [place] | [place] | | | | | [address] | [address] | | | | | [phone] | | | +--------+ + + + [...] + + documented as of this encounter ED Notes Adi Castro MD - 04/09/2017 9:27 AM PDTFormatting of this note might be d ifferent from the original. [facility] Joni Kwon Emergency Department Encounter Note [address] [place] [address] PCP:DENIS Paul [phone] eMERGENCY dEPARTMENT eNCOUnter CHIEF COMPLAINT Chief Complaint Patient presents with Cold-like Symptoms Elevated Blood Sugar (Symptomatic) TRIAGE ED Triage Notes, ED Triage Notes Chio Schneider RN 04/09/2017 9:24 States has had cold like symptoms for one year. Mentions that he is diabetic and feels that he may be acidotic. HPI Joni Kwon is a 36 y.o. male who presents elevated blood sugars. He states he' s been having difficulty controlling his blood sugars. He also states that he's been having some cold-like symptoms for the last year. Today he took his blood sugar and it was registering very high. He took some insulin prior to arrival. Patient also has a cough with some congestion. New graft patient also states she's having some memory problems. He's here for further evaluation. PAST MEDICAL HISTORY Past Medical History: Diagnosis Date ADHD (attention deficit hyperactivity disorder) Depression Unclear of major depression vs bipolar depression Diabetes mellitus (HCC) Type 1 diabetes Schizophrenia (HCC) SURGICAL HISTORY Past Surgical History: Procedure Laterality Date TONSILLECTOMY CURRENT MEDICATIONS Previous Medications INSULIN GLARGINE (LANTUS) 100 UNITS/ML INJECTION (VIAL) Inject 20 Units under the skin nightly. INSULIN LISPRO (HUMALOG) 100 UNITS/ML INJECTION (VIAL) Inject 5 Units under the skin 3 times daily (before meals). Plus sliding scale ALLERGIES Allergies Allergen Reactions Haloperidol Swelling Insulin Detemir Swelling Risperidone Other (See Comments) "sleeps too long" FAMILY HISTORY Family History Problem Relation Age of Onset Diabetes Maternal Grandfather Diabetes Maternal Grandmother SOCIAL HISTORY Social History Social History Marital status: Single Spouse name: N/A Number of children: N/A Years of education: N/A Social History Main Topics Smoking status: Current Every Day Smoker Packs/day: 0.50 Types: Cigarettes Smokeless tobacco: Not on file Alcohol use Yes Comment: occassionally Drug use: Frequency: 3.0 times per week Types: Marijuana Sexual activity: Not on file Other Topics Concern Not on file Social History Narrative No narrative on file REVIEW OF SYSTEMS Please see HPI, All systems negative except as marked. Twelve point review of system comp leted my me. PHYSICAL EXAM VITAL SIGNS: Temp: 36.7 C (98 F) Pulse: 87 Resp: 14 SpO2: (!) 87 % BP: (!) 130/97 Constitutional: Well developed, Well nourished, Non-toxic appearance. HENT: Normocephalic, Atraumatic, Bilateral external ears normal, Oropharynx moist, No oral exudates, Nose normal. Neck- Normal range of motion, No tenderness, Supple, No stridor. Eyes: PERRL, EOMI, Conjunctiva normal, No discharge. Respiratory: Normal breath sounds, No respiratory distress, increased rhonchi bilaterally, No chest tenderness. Cardiovascular: Normal heart rate, Normal rhythm, No murmurs, No rubs, No gallops. GI: Bowel sounds normal, Soft, No tenderness, No masses, No pulsatile masses. Musculoskeletal: Intact distal pulses, No edema, No tenderness, No cyanosis, No clubbing. Good range of motion in all major joints. No tenderness to palpation or major deformities no eleno. Neurologic: Alert & oriented x 3, Normal motor function, Normal sensory function, No focal deficits noted, no facial assymetry noted. 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 COMPARISON: 10/03/2016. FINDINGS: Portable frontal chest radiograph Lungs: No focal airspace disease, pleural effusion, or pneumothorax. Heart /mediastinum: Cardiac silhouette is of normal size. Central pulmonary vasculature has a norm al appearance. Bones: No acute osseous abnormality appreciated. IMPRESSION - No acute diseas e. Dictated and Signed by: Braeden Siddiqui MD Electronically signed: 04/09/2017 9:59 AM LAB Labs Reviewed CBC WITH DIFFERENTIAL - Abnormal; Notable for the following: Result Value RBC 4.08 (*) Hgb 13.1 (*) Hct 37.0 (*) % Lymphocytes 10.5 (*) All other components within normal limits COMPREHENSIVE METABOLIC PANEL - Abnormal; Notable for the following: NA 119 (*) K 5.2 (*) CL 86 (*) GLUCOSE 722 (*) Total protein 5.2 (*) GLOBULIN 1.9 (*) All other components within normal limits BETA HYDROXYBUTYRATE, QUANT - Abnormal; Notable for the following: Beta Hydroxybutyrate 0.51 (*) All other components within normal limits POC BLOOD GASES - Abnormal; Notable for the following: Base Excess, POC 3.1 (*) Base Excess, Extracellular fluid, POC 3.4 (*) O2 Sat, POC 64 (*) All other components within normal limits POC GLUCOSE - Abnormal; Notable for the following: Glucose, POC >600 (*) All other components within normal limits POCT URINALYSIS - Abnormal; Notable for the following: Glucose, UA, POC 3+ (*) All other components within normal limits POC GLUCOSE - Abnormal; Notable for the following: Glucose, POC 483 (*) All other components within normal limits POC GLUCOSE - Abnormal; Notable for the following: Glucose, POC 386 (*) All other components within normal limits LIPASE - Normal LACTIC ACID - Normal BLOOD GAS, VENOUS ED COURSE & MEDICAL DECISION MAKING Pertinent Labs & Imaging studies reviewed. (See chart for details) Nursing notes reviewed. PT with significant elevated blood glucose. He does not have an anion gap this time. In g iven 15 units of IV insulin as well as IV fluids. We're watching him here. He does have a recorded low sodium but corrected sodium levels are 134. Patient does have some cold-like s ymptoms. He does not appear to be having pneumonia according to his chest x-ray. This point patient is otherwise stable. New Prescriptions ONDANSETRON (ZOFRAN ODT) 4 MG DISINTEGRATING TABLET Take 1 tablet by mouth every 6 hour s as needed. Patient is able to eat currently. He is not having no further vomiting. Encouraged to fol low up with his primary care physician. His blood sugar has come down nicely it is to have a recordable range less than 300 is received 2 L of fluids as well as 15 units of insulin. Patient does not appear to have DKA at this time. Discharge Instructions Continue diabetic diet. Continue taking insulin as directed. Return for severe worsening symptoms. Please follow-up with her primary care issues. Drink plenty of fluids. FINAL IMPRESSION 1. Hyperglycemia Acute Portions of this chart may have been created with [employer] voice recognition software. Occasi onal wrong-word or sound-alike substitutions may have occurred due to the inherent renee itations of voice recognition software. Please read the chart carefully and recognize, using context, where these substitutions have occurred Adi Castro MD 04/09/17 1305 Codie Moore RN - 04/09/2017 9:22 AM PDTStates has had cold like symptoms for one year. Menti ons that he is diabetic and feels that he may be acidotic. documented in this encounter Plan of Treatment + +------+--------+ [...] | | | FICATI | | | ON?/ | | | 18/ | | | 7 | | | 09:07? | | | DOYLE | | | , | | | BENJAM | | | [place] | | | J?MRN: | | | | | | [id number] | | | [id number] | | | his | | | [...] | | | St. | | | [place] | | | y H. | | [...] | | | St. | | | [place] | | | y H. | | [...] | | | St. | | | [place] | | | y H. | | [...] | | | St. | | | [place] | | | y H. | | [...] | | | St. | | | [place] | | | y H. | | [...] | | | St. | | | [place] | | | y | | | [...] + | [facility] | [address] | [place] | [phone] | | [facility] | | [address] | | | - LABORATORY | | [...] | | POC | | | [facility] | | | | | | MEDICAL [...] [address] | [place] | [phone] | | [facility] | | [address] | | | - LABORATORY | | [...] Procedure Note | + + | Scottie, Foreign Results In - 04/09/2017 10:02 AM PDT [...] | | | | mmHg | [facility] | | | | [...] + | [facility] | [address] | [place] | [phone] | | [facility] | | [address] | | | - LABORATORY | | [...] | [address] | [place] | [phone] | | [facility] | | [address] | | | - LABORATORY | | [...] + | [facility] | [address] | [place] | [phone] | | [facility] | | [address] | | | - LABORATORY | | | | + + + + + Lipase (04/09/2017 9:40 AM PDT) + +-------+ + + + | Component | Value | Ref Range | Performed | Pathologist | | | | | At | Signature | + +-------+ + + + | Lipase | 23 | 0 - 60 U/L | [facility] | | | | | | [facility] [address] | [place] | [phone] | | [facility] | | [address] | | | - LABORATORY | | [...] | Critical Result called | mmol/L | [facility] | | | | to and [...] | | | | | | [facility] | | [...] 14 | 7 - 18 mg/dL | [facility] | | | | | | [facility] | | | | | | MEDICAL | | | | | | CENTER - | | | | | | LABORATORY | | + + + + + + | Creatinine | 0.93 | 0.60 - 1.30 | [facility] | | | | | mg/dL | [facility] | | | | | | MEDICAL | | | | | | CENTER - | | | | | | LABORATORY | | + + + + + + | eGFR if not | >60Comment: GLOMERULAR | >=60 | [facility] | | | | FILTRATION | mL/min/1.73m2 | [facility] | | | [place] | RATE,ESTIMATED | | MEDICAL | | | | mL/min/1.54y0Whpr than | | CENTER - | | [...] | | Protein | | | [facility] | | [...] Phosphatase | appended report. These | | [facility] | | | | results have [...] | | ine Ratio | | | [facility] | | [...] ST. | [address] | [place] | [phone] | | [facility] | | [address] | | | - LABORATORY | | | | + + + + + CBC with Differential (04/09/2017 9:40 AM PDT) + + + + + + | Component | Value | Ref Range | Performed | Pathologist | | | | | At | Signature | + + + + + + | White Blood | 9.5 | 4.0 - 11.0 K/uL | [facility] | | | Cells | | | [facility] | | | | | | MEDICAL | | | | | | CENTER - | | | | | | LABORATORY | | + + + + + + | Red Blood | 4.08 (L) | 4.30 - 5.70 | [facility] | | | Cells | | M/uL | [facility] | [...] | Neutrophils | | K/uL | [facility] | | | | | | MEDICAL | | | | | | CENTER - | | | | | | LABORATORY | | + + + + + + | Absolute | 1.00 | 0.60 - 3.20 | [facility] | | | Lymphocytes | | K/uL | [facility] | | | | | | MEDICAL | | | | | | CENTER - | | | | | | LABORATORY | | + + + + + + | Absolute | 0.70 | 0.00 - 1.00 | [facility] | | | Monocytes | | K/uL | [facility] | | | | [...] + | [facility] | [address] | [place] | [phone] | | [facility] | | [address] | | | - LABORATORY | | [...] 1.001 - 1.030 | | | | [place], | | | | | | UA, [...] | | | POC | | | [facility] | | [...] + | [facility] | [address] | [place] | [phone] | | [facility] | | [address] | | | - LABORATORY | | [...] +-------+------+------+ | albuterol-ipratropium (DUONEB) | Given | 04/09/ | 3 mLs | | | | [...]
--- OUTSIDE RECORDS SUMMARY | ~2020-01-12 | XMS | Encounter Summary ---
Demographics + + + | Address | [address] | | | [place] [address] | + + + | Home Phone | | + + + | Preferred Language | Unknown | + + + | Marital Status | Single | + + + | Congregational Affiliation | 1001 | + + + | Race | Unknown | + + + | Ethnic Group | Unknown | + + + Author + + + | Author | [facility] | | | and Ryana | + + + | Organization | [facility] | | | and [...] Team Providers + +------+ + | Care Cartridge Gauger Name | Role | Phone | + [...] Provider Unknown | | | | | [place], [place] | | | | | | [address] | (Fax) | | | | | [...]
--- OUTSIDE RECORDS SUMMARY | ~2020-01-12 | XMS | Encounter Summary ---
Demographics + + + | Address | [address] | | | [place] [address] | + + + | Home Phone | | + + + | Preferred Language | Unknown | + + + | Marital Status | Single | + + + | Orthodox Affiliation | 1001 | + + + | Race | Unknown | + + + | Ethnic Group | Unknown | + + + Author + + + | Author | [facility] | | | and Ryana | + + + | Organization | [facility] | | [...] Team Providers + +------+ + | Care Labor Trainer Name | Role | Phone | + +------+ + PCP | Unavailable | + +------+ + Encounter Details +--------+ + + + + | Date | Type | Department | Care Team | Description | +--------+ + + + + | 03/05/ | [facility] | [place] | Abhi Berger | | | 2003 | Encounter | FAMILY MEDICINE 120 | MD [address] | | | | | [address] | [place], [place] | | | | | [place] [address] | [address] | | | | | [phone] | | | +--------+ + + + [...]
--- OUTSIDE RECORDS SUMMARY | ~2020-01-12 | XMS | Encounter Summary ---
Demographics + + + | Address | [address] | | | [place] [address] | + + + | Home Phone | | + + + | Preferred Language | Unknown | + + + | Marital Status | Single | + + + | Mandaeism Affiliation | [id number] | + + + | Race | Unknown | + + + | Ethnic Group | Unknown | + + + Author + + + | Author | [facility] | | | and Ryana | + + + | Organization | [facility] | | | and Ryana | + + + | Address | Unknown | + + + | Phone | Unavailable | + + + Support + + +---------+ + | Name | Relationship | Address | Phone | + + +---------+ + | Beto Kwon | ECON | Unknown | | + + +---------+ + Care Team Providers + +------+ + | Care Desktop Support Engineer Name | Role | Phone | + +------+ + | No, Physician | PCP | Unavailable | + +------+ + Reason for Visit + + + | Reason | Comments | + + + | Psychiatric | "I've been isolated a lot and sleeping, I'm having lots of psych | | Evaluation | issues", when asked about suicidal ideation, pt states, | | | "occasionally it crosses my mind" | + + + | Elevated Blood Sugar | 200s at home | | (Asymptomatic) | | + + + Auth/Cert +--------+--------+ + + + + [...] | +--------+ + + + + | 05/17/ | Hospital | [facility] | Alexis, | Schizophrenia, | | 2019 - | Encounter | [facility] | DO [address] | unspecified type | | | | CARE FLOOR [phone] | [address] | ([facility]) (Primary Dx); | | 05/21/ | | [address] | [place] [address] | Acute psychosis | | 2019 | | [place], [place] | [phone] | (HCC); Marijuana | | | | [address] | | use; Nausea and | | | | [phone] | Tacos Brian MD | vomiting in adult; | | | | | [address] | Noncompliance with | | | | | [place], [place] | medication regimen; | | | | | [phone] | Tobacco smoker | | | | | [phone] | within last 12 | | | | | | months; Type 1 | | | | | Tacos Paredes PA | diabetes mellitus | | | | | [address] | without complication | | | | | [place] [address] | (HCC); | | | | | [phone] | Schizoaffective | | | | | | disorder, bipolar | | | | | Hosea Watson, | type ([facility]); Acute | | | | | [address] [facility] | hyperkalemia | | | | | [place] [address] | | | | | | [phone] | | | | | | | | | | | | Cony Castillo, | | | | | | [address] | | | | | | [place] [address] | | | | | | [phone] | | | | | | | [...] + + + | Blood Pressure | 159/99 | 05/21/2019 4:33 PM | | | | | PST | | + + + + + | Pulse | 107 | 05/21/2019 4:33 PM | | | | | PST | | + + + + + | Temperature | 36.3 C (97.3 F) | 05/21/2019 4:33 PM | | | | | PST | | + + + + + | Respiratory Rate | 16 | 05/21/2019 4:33 PM | | | | | PST | | + + + + + | Oxygen Saturation | 100% | 05/21/2019 4:33 PM | | | | | PST | | + + + + + | Inhaled Oxygen | - | - | | | Concentration | | | | + + + + + | Weight | 58.2 kg (128 lb 4.9 | 05/21/2019 5:12 AM | | | | oz) | PST | | + + + + + | Height | 188 cm (6' 2") | 05/19/2019 3:16 PM | | | [...] documented as of this encounter Discharge Summaries Hosea Watson MD - 05/21/2019 3:48 PM PSTFormatting of this note might be different f rom the original. [facility] Service: Hospitalist Discharge Summary Date of Admission: 05/17/2019 Date of Discharge: 05/21/19 Discharge Provider: Hosea Watson MD Discharge Diagnoses: Psychosis Schizophrenia DM Smoking Asthma BRIEF HISTORY OF PRESENTATION: Joni Kwon is a 38 y.o. male who presented with pyschosis HOSPITAL COURSE: The patient presents with psychosis, suicidal ideations. He was admitted to the hospital. Unfortunately, due to the patient being uncooperative initially, we could not control his b lood sugars well and he was started on insulin drip. Then, we were forced to stop insulin d rip because the patient was refusing to do the daily blood sugar checks. After that, he was switched to subcutaneous regimen and actually became more cooperative with both blood draw s, fingerstick glucose checks, and his insulin. Blood sugars have been controlled since thi s morning. The patient was accepted to [facility] for further treatment. The patient still refuses to take his psychiatric medications. I spoke with Dr. Carrillo, who g raciously accepts the patient for the transfer. Patient was discharged home in a stable condition Past Medical History: Diagnosis Date ADHD (attention deficit hyperactivity disorder) Depression Unclear of major depression vs bipolar depression Diabetes mellitus (HCC) Type 1 diabetes Schizophrenia (HCC) Past Surgical History: Procedure Laterality Date TONSILLECTOMY Allergies Allergen Reactions Bee Venom Anaphylaxis Haldol [Haloperidol] Swelling Levemir [Insulin Detemir] Swelling Risperidone Other (See Comments) "sleeps too long" Medications Prior to Admission Medication Sig Dispense Refill albuterol 90 mcg/puff inhaler Inhale 2 puffs into the lungs EVERY 4 TO 6 HOURS NEEDE D for Wheezing. Ambulatory Compound Builder Needle tips that fit Humalog Kwikpen and Lantus Solostar Us es 5 needles a day 100 Device 0 Ambulatory Compound Builder Stips for Contour Next glucometer disp 100 test 4 times a d ay 100 Device 0 atoMOXetine (STRATTERA) 40 mg capsule Take 40 mg by mouth 2 times daily. DULoxetine (CYMBALTA) [address] capsule Take 40 mg by mouth Daily. glucose blood test strips strip Please use to check your glucose levels in the morni ng and before meals three times a day. 100 each 3 [DISCONTINUED] insulin glargine (LANTUS SOLOSTAR) 100 units/mL injection (pen) Inject 2 5 Units under the skin every morning. 0 insulin lispro (HUMALOG KWIKPEN) 100 units/mL injection (pen) Inject 5 Units under the skin 3 times daily (with meals). 0 insulin lispro (HUMALOG KWIKPEN) 100 units/mL injection (pen) MODERATE CORRECTION SCALE : Blood Glucose (BG) < 150: None BG 150-200: DAY: 2 units. NIGHT: 0 units BG 201-250: DAY: 4 units. NIGHT: 2 units BG 251-300: DAY: 6 units. NIGHT: 4 units BG 301-350: DAY: 8 units. NIGHT: 5 units BG 351-400: DAY: 10 units. NIGHT: 6 units BG > 400 : DAY: 12 units. 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 Chew and tuck 1 piece every 1-2 hours for weeks 1-6 then every 2-4 hours for weeks 7-9 then every 4-8 hours weeks 10-12 (max 24 pieces/day). traZODone (DESYREL) 50 mg tablet Take 50 mg by mouth nightly. Take 1 tablet by mouth at bedtime may increase to 2 tablets by mouth at bedtime. DISCHARGE EXAM Vital Signs: BP 117/77 | Pulse 120 | Temp 36.7 C (98.1 F) (Oral) | Resp 16 | Ht 1.88 m (6' 2") | Wt 58.2 kg (128 lb 4.9 oz) | SpO2 98% | BMI 16.47 kg/m Intake/Output Summary (Last 24 hours) at 05/21/2019 1548 Last data filed at 05/21/2019 1156 Gross per 24 hour Intake 218 ml Output 5400 ml Net -5182 ml Physical Exam Constitutional: He isoriented to person, place, and time.No distress. HENT: Head:Normocephalic. Right Ear: External earnormal. Mouth/Throat: Nooropharyngeal exudate. Eyes:Pupils are equal, round, and reactive to light.No scleral icterus. Neck:Neck supple.No JVDpresent. Cardiovascular:Normal rate. Exam revealsno gallopand no friction rub. Pulmonary/Chest: Norespiratory distress. He hasno wheezes. Abdominal:Bowel sounds are normal. He exhibitsno distension. There isno tenderness. Musculoskeletal: General: No tenderness,deformityor edema. Neurological: He isalertand oriented to person, place, and time. Nocranial nerve defi cit. Skin:No rashnoted. He is not diaphoretic. Noerythema. Nursing noteand vitalsreviewed. DATA Recent Results (from the past 24 hour(s)) Potassium Result Value Ref Range K 4.9 3.5 - 4.9 mmol/L POC Glucose Result Value Ref Range Glucose, POC >400 (H) 65 - 99 mg/dL POC Glucose Result Value Ref Range Glucose, POC 338 (H) 65 - 99 mg/dL POC Glucose Result Value Ref Range Glucose, POC 111 (H) 65 - 99 mg/dL POC Glucose Result Value Ref Range Glucose, POC 250 (H) 65 - 99 mg/dL Basic Metabolic Panel Result Value Ref Range Na 137 135 - 145 mmol/L K 4.1 3.5 - 4.9 mmol/L Cl 105 99 - 109 mmol/L CO2 27 23 - 32 mmol/L Anion Gap 9 5 - 20 mmol/L Glucose 204 (H) 65 - 99 mg/dL BUN 21 8 - 25 mg/dL Creatinine 1.1 0.70 - 1.30 mg/dL BUN/Creatinine Ratio 19 Calcium 8.8 8.5 - 10.5 mg/dL Estimated GFR >60 >60 mL/min/1.73m2 POC Glucose Result Value Ref Range Glucose, POC 181 (H) 65 - 99 mg/dL POC Glucose Result Value Ref Range Glucose, POC 53 (L) 65 - 99 mg/dL POC Glucose Result Value Ref Range Glucose, POC 88 65 - 99 mg/dL PLAN Disposition: home Condition: Stable Code Status: Full Code No discharge procedures on file. Follow up: No follow-up provider specified. Discharge Medications New Medications Details insulin lispro 100 units/mL injection (vial) Replaces: insulin lispro 100 units/mL injection (pen) Inject 15 Units under the skin 3 times daily (with meals). aka: humaLOG insulin lispro 100 units/mL injection (vial) Replaces: insulin lispro 100 units/mL injection (pen) Inject 0-12 Units under the skin 4 times daily (with meals and nightly). aka: humaLOG Changed Medications Details insulin glargine 100 units/mL injection (pen) Inject 20 Units under the skin 2 times daily. What changed: how much to take when to take this aka: CHRISTIAN HAMEED Unchanged Medications Details albuterol 90 mcg/puff inhaler Inhale 2 puffs into the lungs EVERY 4 TO 6 HOURS NEEDED for Wheezing. nicotine polacrilex 4 MG lozenge Take 4 mg by mouth as needed for Nicotine Craving. Chew and tuck 1 piece every 1-2 hours f or weeks 1-6 then every 2-4 hours for weeks 7-9 then every 4-8 hours weeks 10-12 (max 24 pie lisa/day). aka: COMMIT Discontinued Medications Ambulatory Compound Builder Ambulatory Compound Builder atoMOXetine 40 mg capsule aka: STRATTERA DULoxetine [address] capsule aka: SANDY glucose blood test strips strip insulin lispro 100 units/mL injection (pen) aka: humaLOG KWIKPEN Replaced by: insulin lispro 100 units/mL injection (vial) insulin lispro 100 units/mL injection (pen) aka: humaLOG KWIKPEN Replaced by: insulin lispro 100 units/mL injection (vial) traZODone 50 mg tablet aka: DESYREL Discharge took 35 minutes, to include final examination, discussion of admission, and prepa ration of prescriptions, instructions for on-going care, follow-up and documentation of disc harge summary. Hosea Watson MD 05/21/2019 Tj jenkins in this encounter Medications at Time of [...] documented as of this encounter Progress Notes Elisa Mendez RN - 05/21/2019 5:40 PM PSTBlood sugar re checked after patient has finish ed dinner. States feel a lot better. Blood sugar 104. IV discontinued with cannula intact. Kosta Watson notified of hypoglycemic episodes and medications adjusted prior to patient adilene ng. Report given to [facility]. Security came and gave patient back his belongings. Patient sent ina john home with his mother. No other concerns noted. [facility] here to take patient to [facility]. Elisa Mendez RN 5:41 PM Elisa Marquez RN - 1 07/21/2018 5:15 PM PSTPatient's blood sugar 66. Waiting on food to arrive. Burr juice and doyle crackers given. Patient's dinner arrived. [facility] here but needing to get blood sugar sta bilized before transport. Elisa Mendez RN 5:16 PM Elisa Marquez RN - 1 07/21/2018 2:20 PM PSTNurse from [facility] [place] called to get [facility] on [facility]. Nurse to nurse report provided. Elisa Mendez RN 2:21 PM [place], Elisa Cervantes RN - 1 07/21/2018 2:06 PM PSTPatient has been calm and cooperative thus far this shift. Still refus ing new oral anti psychotic medications. Compliant with blood sugar checks and has been able to shower and ambulate in the hallway with the sitter. Nursing notes as well as recent labs faxed to [facility]. Nurse to nurse report given to Cecilia. Elisa Mendez RN' 2:09 PM' Ryley Kirkland MD - 05/21/2019 10:47 AM PSTFormatting of this note might be different from the [facility] Service: Hospitalist Progress Note Hospital Day: LOS: 2 days Chief complaint: Chief Complaint Patient presents with Psychiatric Evaluation "I've been isolated a lot and sleeping, I'm having lots of psych issues", when asked abou t suicidal ideation, pt states, "occasionally it crosses my mind" Elevated Blood Sugar (Asymptomatic) 200s at home Subjective: Pt c/o no nausea, requests inhaler, denies dyspnea or wheezing ASSESSMENT & PLAN Schizophrenia with acute psychosis (as per ED provider who saw initially) and suicidal idea tion: - Crisis is working on placement and has requested that patient be admitted for 24 hour cer t hold.1:1 observation. - pt had an episode of agitation with self mutilation - restrained, now off since yesterday - Spoke with psychiatrist on 05/20 - pt is more cooperative but continues to refuse to take his po psych meds DM1: - uncontrolled- A1c is 10.2 - pt refused blood sugar checks, insulin drip was d/elias - I spoke with pharmacist - pt got 36.3 units of insulin in 7-8 hours of insulin gtt. - started SQ lantus, Humalog with meals and ISS yesterday - blood surgars are better controlled today Hyperkalemia: - resolved - no EKG changes - No telemetry due to suicidal ideation risk of self harm - Will recheck after glucose improves with SQ insulin Tobacco use: -nicotine patch. Physical Exam Constitutional: He isoriented to person, place, and time.No distress. HENT: Head:Normocephalic. Right Ear: External earnormal. Mouth/Throat: Nooropharyngeal exudate. Eyes:Pupils are equal, round, and reactive to light.No scleral icterus. Neck:Neck supple.No JVDpresent. Cardiovascular:Normal rate. Exam revealsno gallopand no friction rub. Pulmonary/Chest: Norespiratory distress. He hasno wheezes. Abdominal:Bowel sounds are normal. He exhibitsno distension. There isno tenderness. Musculoskeletal: General: No tenderness,deformityor edema. Neurological: He isalertand oriented to person, place, and time. Nocranial nerve defi cit. Skin:No rashnoted. He is not diaphoretic. Noerythema. Nursing noteand vitalsreviewed. Scheduled Medications enoxaparin 40 mg Subcutaneous Daily insulin glargine 20 Units Subcutaneous 2 times per day insulin lispro 0-12 Units Subcutaneous 4x Daily WC and HS insulin lispro 15 Units Subcutaneous TID WC lurasidone 40 mg Oral Daily with breakfast nicotine 1 patch Transdermal Daily pneumococcal 0.5 mL Intramuscular One Time Vaccine Continuous Infusions dextrose 10% sodium chloride 0.9% 30 mL/hr at 05/19/191956 PRN Medications acetaminophen, albuterol, calcium carbonate, Hypoglycemia Management AND POCT Glucose * *AND dextrose AND dextrose 10%, dextrose 10%, dextrose, docusate sodium, insulin regul ar, LORazepam, ondansetron, ondansetron, senna, ziprasidone Vital Signs: BP 109/71 | Pulse 91 | Temp 36.9 C (98.4 F) (Temporal) | Resp 16 | Ht 1.88 m (6' 2" ) | Wt 58.2 kg (128 lb 4.9 oz) | SpO2 99% | BMI 16.47 kg/m Temp (24hrs), Av.1 C (98.7 F), Min:36.9 C (98.4 F), Max:37.2 C (99 F) Systolic (24hrs), Av , Min:108 , Max:115 Diastolic (24hrs), Av, Min:67, Max:84 Intake/Output Summary (Last 24 hours) at 05/21/2019 1047 Last data filed at 05/21/2019 0110 Gross per 24 hour Intake Output 4200 ml Net -4200 ml DATA CBC: Lab Results Component Value Date WBC 5.15 05/17/2019 RBC 4.94 05/17/2019 RBC 3.53 (L) 02/08/2016 HGB 15.5 05/17/2019 HCT 44.4 05/17/2019 MCV 89.9 05/17/2019 MCH 31.4 05/17/2019 MCHC 35.0 05/17/2019 PLT 299 05/17/2019 MPV 9.0 05/17/2019 DIFFTYPE AUTOMATED 05/17/2019 CMP: Lab Results Component Value Date NA 134 (L) 05/20/2019 K 4.9 05/20/2019 CL 104 05/20/2019 CO2 23 05/20/2019 ANIONGAP 12 05/20/2019 GLUF 282 (H) 02/08/2016 BUN 21 05/20/2019 BCR 19 02/08/2016 GLOB 2.5 02/08/2016 AGRATIO 2.1 05/17/2019 BILITOT 1.5 05/01/2017 AST 23 05/17/2019 ALT 19 05/17/2019 EGFR >60 05/20/2019 BMP: Lab Results Component Value Date NA 134 (L) 05/20/2019 K 4.9 05/20/2019 CL 104 05/20/2019 CO2 23 05/20/2019 ANIONGAP 12 05/20/2019 GLUF 282 (H) 02/08/2016 BUN 21 05/20/2019 BCR 19 02/08/2016 EGFR >60 05/20/2019 PT/INR: No results found for: PROTIME, INR Last 3 Troponin: No components found for: TROPONINI HgBA1c: Lab Results Component Value Date LABGLYC 421 02/06/2016 Disposition: pending Code Status: Full Code Hosea Watson MD 05/21/2019 aver, Gonzalo Cervantes RN - 05/20/2019 7:19 PM PSTPatient has been out of restraints since approximately 13 44. Patient has been cooperative in care, still refusing lab draws to confirm high glucose n umbers, however has been allowing blood sugar checks and subq insulin to be given. Patient h as been up ambulating in the room, all loose cords removed from room. Sitter remains at beds sue. Patient does refuse to take newly ordered oral psych medication. MD aware. No other new concerns. End of shift review complete. Elisa Mendez RN 7:22 PM Hosea Kirkland MD - 05/20/2019 12:18 PM PST [facility] Service: Hospitalist Progress Note Hospital Day: LOS: 1 day Chief complaint: Chief Complaint Patient presents with Psychiatric Evaluation "I've been isolated a lot and sleeping, I'm having lots of psych issues", when asked abou t suicidal ideation, pt states, "occasionally it crosses my mind" Elevated Blood Sugar (Asymptomatic) 200s at home Subjective: Pt c/o nausea, feeling thirsty, no pain. Requests to remove restrains, follows commands and appears to be more cooperative. ASSESSMENT & PLAN Schizophrenia with acute psychosis (as per ED provider who saw initially) and suicidal idea tion: - Crisis is working on placement and has requested that patient be admitted for 24 hour cer t hold. 1:1 observation. - pt had an episode of agitation with self mutilation - restrained - Spoke with psychiatrist today - pt is more cooperative but refused to take his po psych meds DM1: - uncontrolled- A1c is 10.2 - pt refused blood sugar checks, insulin drip was d/elias - I spoke with pharmacist - pt got 36.3 units of insulin in 7-8 hours of insulin gtt. - started SQ lantus, Humalog with meals and ISS Hyperkalemia: - no EKG changes - No telemetry due to suicidal ideation risk of self harm - Will recheck after glucose improves with SQ insulin Tobacco use: - nicotine patch. Physical Exam Constitutional: He is oriented to person, place, and time. No distress. HENT: Head: Normocephalic. Right Ear: External ear normal. Mouth/Throat: No oropharyngeal exudate. Eyes: Pupils are equal, round, and reactive to light. No scleral icterus. Neck: Neck supple. No JVD present. Cardiovascular: Normal rate. Exam reveals no gallop and no friction rub. Pulmonary/Chest: No respiratory distress. He has no wheezes. Abdominal: Bowel sounds are normal. He exhibits no distension. There is no tenderness. Musculoskeletal: General: No tenderness, deformity or edema. Neurological: He is alert and oriented to person, place, and time. No cranial nerve deficit . Skin: No rash noted. He is not diaphoretic. No erythema. Nursing note and vitals reviewed. Scheduled Medications enoxaparin 40 mg Subcutaneous Daily insulin glargine 20 Units Subcutaneous 2 times per day insulin lispro 0-18 Units Subcutaneous 4x Daily WC and HS insulin lispro 10 Units Subcutaneous TID WC lurasidone 40 mg Oral Daily with breakfast nicotine 1 patch Transdermal Daily pneumococcal 0.5 mL Intramuscular One Time Vaccine Continuous Infusions dextrose 10% sodium chloride 0.9% 30 mL/hr at 05/19/19 1957 PRN Medications acetaminophen, albuterol, calcium carbonate, Hypoglycemia Management AND POCT Glucose * *AND dextrose AND dextrose 10%, dextrose 10%, dextrose, docusate sodium, insulin regul ar, LORazepam, ondansetron, ondansetron, senna, ziprasidone Vital Signs: BP 123/69 | Pulse 92 | Temp 36.3 C (97.3 F) (Oral) | Resp 16 | Ht 1.88 m (6' 2") | Wt 56.8 kg (125 lb 3.5 oz) | SpO2 99% | BMI 16.08 kg/m Temp (24hrs), Av.7 C (98 F), Min:36.3 C (97.3 F), Max:36.9 C (98.4 F) Systolic (24hrs), Av , Min:123 , Max:153 Diastolic (24hrs), Av, Min:69, Max:96 Intake/Output Summary (Last 24 hours) at 05/20/2019 1218 Last data filed at 05/20/2019 0600 Gross per 24 hour Intake 1140 ml Output Net 1140 ml DATA CBC: Lab Results Component Value Date WBC 5.15 05/17/2019 RBC 4.94 05/17/2019 RBC 3.53 (L) 02/08/2016 HGB 15.5 05/17/2019 HCT 44.4 05/17/2019 MCV 89.9 05/17/2019 MCH 31.4 05/17/2019 MCHC 35.0 05/17/2019 PLT 299 05/17/2019 MPV 9.0 05/17/2019 DIFFTYPE AUTOMATED 05/17/2019 CMP: Lab Results Component Value Date NA 134 (L) 05/20/2019 K 5.4 (H) 05/20/2019 CL 104 05/20/2019 CO2 23 05/20/2019 ANIONGAP 12 05/20/2019 GLUF 282 (H) 02/08/2016 BUN 21 05/20/2019 BCR 19 02/08/2016 GLOB 2.5 02/08/2016 AGRATIO 2.1 05/17/2019 BILITOT 1.5 05/01/2017 AST 23 05/17/2019 ALT 19 05/17/2019 EGFR >60 05/20/2019 BMP: Lab Results Component Value Date NA 134 (L) 05/20/2019 K 5.4 (H) 05/20/2019 CL 104 05/20/2019 CO2 23 05/20/2019 ANIONGAP 12 05/20/2019 GLUF 282 (H) 02/08/2016 BUN 21 05/20/2019 BCR 19 02/08/2016 EGFR >60 05/20/2019 HgBA1c: Lab Results Component Value Date LABGLYC 421 02/06/2016 Disposition: pending Code Status: Full Code Hosea Watson MD 05/20/2019 Alexa Murray RN - 05/19/2019 6:15 PM PSTPatient belongings and home medications sent ramsey n to the safe with security. Hosea Kirkland MD - 05/19/2019 2:57 PM PST [facility] Service: Hospitalist Progress Note Hospital Day: LOS: 0 days Chief complaint: Chief Complaint Patient presents with Psychiatric Evaluation "I've been isolated a lot and sleeping, I'm having lots of psych issues", when asked abou t suicidal ideation, pt states, "occasionally it crosses my mind" Elevated Blood Sugar (Asymptomatic) 200s at home Subjective: Pt denies any chest pain or dyspnea, he's got mild nausea. ASSESSMENT & PLAN Schizophrenia with acute psychosis (as per ED provider who saw initially) and suicidal idea tion- Crisis is working on placement and has requested that patient be admitted for 24 hour cert hold. 1:1 observation. DM1: - uncontrolled - A1c pending - home dose of lantus and humalog ordered and ISS Tobacco use: - nicotine patch. Physical Exam Constitutional: He is oriented to person, place, and time. No distress. HENT: Head: Normocephalic. Right Ear: External ear normal. Mouth/Throat: No oropharyngeal exudate. Eyes: Pupils are equal, round, and reactive to light. No scleral icterus. Neck: Neck supple. No JVD present. Cardiovascular: Normal rate. Exam reveals no gallop and no friction rub. Pulmonary/Chest: No respiratory distress. He has no wheezes. Abdominal: Bowel sounds are normal. He exhibits no distension. There is no tenderness. Musculoskeletal: General: No tenderness, deformity or edema. Neurological: He is alert and oriented to person, place, and time. No cranial nerve deficit . Skin: No rash noted. He is not diaphoretic. No erythema. Nursing note and vitals reviewed. Scheduled Medications enoxaparin 40 mg Subcutaneous Daily insulin glargine 25 Units Subcutaneous Nightly insulin lispro 0-12 Units Subcutaneous 4x Daily WC and HS insulin lispro 5 Units Subcutaneous TID WC nicotine 1 patch Transdermal Daily Continuous Infusions dextrose 10% PRN Medications acetaminophen, calcium carbonate, Hypoglycemia Management AND POCT Glucose AND dext gabriel AND dextrose 10%, docusate sodium, ondansetron, ondansetron, senna Vital Signs: BP 131/90 | Pulse 98 | Temp 36.6 C (97.9 F) (Oral) | Resp 16 | Wt 61.4 kg (135 lb 4 oz) | SpO2 99% | BMI 19.41 kg/m Temp (24hrs), Av.4 C (97.5 F), Min:35.5 C (95.9 F), Max:36.7 C (98.1 F) Systolic (24hrs), Av , Min:121 , Max:179 Diastolic (24hrs), Av, Min:82, Max:121 Intake/Output Summary (Last 24 hours) at 05/19/2019 1458 Last data filed at 05/18/2019 1828 Gross per 24 hour Intake 1000 ml Output 1425 ml Net -425 ml DATA CBC: Lab Results Component Value Date WBC 5.15 05/17/2019 RBC 4.94 05/17/2019 RBC 3.53 (L) 02/08/2016 HGB 15.5 05/17/2019 HCT 44.4 05/17/2019 MCV 89.9 05/17/2019 MCH 31.4 05/17/2019 MCHC 35.0 05/17/2019 PLT 299 05/17/2019 MPV 9.0 05/17/2019 DIFFTYPE AUTOMATED 05/17/2019 CMP: Lab Results Component Value Date NA 136 05/19/2019 K 4.4 05/19/2019 CL 101 05/19/2019 CO2 27 05/19/2019 ANIONGAP 12 05/19/2019 GLUF 282 (H) 02/08/2016 BUN 10 05/19/2019 BCR 19 02/08/2016 GLOB 2.5 02/08/2016 AGRATIO 2.1 05/17/2019 BILITOT 1.5 05/01/2017 AST 23 05/17/2019 ALT 19 05/17/2019 EGFR >60 05/19/2019 BMP: Lab Results Component Value Date NA 136 05/19/2019 K 4.4 05/19/2019 CL 101 05/19/2019 CO2 27 05/19/2019 ANIONGAP 12 05/19/2019 GLUF 282 (H) 02/08/2016 BUN 10 05/19/2019 BCR 19 02/08/2016 EGFR >60 05/19/2019 HgBA1c: Lab Results Component Value Date LABGLYC 421 02/06/2016 Disposition: pending Code Status: Full Code Hosea Watson MD 05/19/2019 documente d in this encounter H&P Notes Cony Castillo MD - 05/18/2019 9:33 PM PST Patient Name: Joni Kwon Date of Admission: 05/18/2019 Referring Provider: Chief Complaint: Ramakrishna Paredes, ED HPI: Mr. Kwon is a 38 y/o M with DM and schizophrenia who presented to ED last evening for a p schiatric evaluation. He was brought in by his mother after he walked out of [facility] ED for same problems. He expressed suicidal thoughts and has significant stressors and he b ecomes frustrated. He also has DM1 and is on glargine and humalog but his blood sugars have been up and down. He has been in the ED over 24 hours as crisis has been to see the patient and then has been attempting to find placement. Per report, they have been unable to find placement and requ est a 24 hour cert while they continue to work on placement. In the ED, patient has been pl easant and cooperative. PMH: Past Medical History: Diagnosis Date ADHD (attention deficit hyperactivity disorder) Depression Unclear of major depression vs bipolar depression Diabetes mellitus (HCC) Type 1 diabetes Schizophrenia (HCC) ACTIVE COMORBIDITIES: Active comorbid conditions include: - psychiatric problem - schizophrenia - Drugs/Alcohol/Tobacco - substance abuse - tobacco use PSH: Past Surgical History: Procedure Laterality Date TONSILLECTOMY Medications: No current facility-administered medications on file prior to encounter. Current Outpatient Medications on File Prior to Encounter Medication Sig Dispense Refill albuterol 90 mcg/puff inhaler Inhale 2 puffs into the lungs EVERY 4 TO 6 HOURS NEEDE D for Wheezing. Ambulatory Compound Builder Needle tips that fit Humalog Kwikpen and Lantus Solostar Us es 5 needles a day 100 Device 0 Ambulatory Compound Builder Stips for Contour Next glucometer disp 100 test 4 times a d ay 100 Device 0 glucose blood test strips strip Please use to check your glucose levels in the morni ng and before meals three times a day. 100 each 3 insulin glargine (LANTUS SOLOSTAR) 100 units/mL injection (pen) Inject 25 Units under t he skin every morning. 0 insulin lispro (HUMALOG KWIKPEN) 100 units/mL injection (pen) Inject 5 Units under the skin 3 times daily (with meals). 0 insulin lispro (HUMALOG KWIKPEN) 100 units/mL injection (pen) MODERATE CORRECTION SCALE : Blood Glucose (BG) < 150: None BG 150-200: DAY: 2 units. NIGHT: 0 units BG 201-250: DAY: 4 units. NIGHT: 2 units BG 251-300: DAY: 6 units. NIGHT: 4 units BG 301-350: DAY: 8 units. NIGHT: 5 units BG 351-400: DAY: 10 units. NIGHT: 6 units BG > 400 : DAY: 12 units. NIGHT: 8 units CALL PROVIDER if above 400 DAY for meals and NIGHT for bedtime 0 Allergies: Allergies Allergen Reactions Haldol [Haloperidol] Swelling Levemir [Insulin Detemir] Swelling Risperidone Other (See Comments) "sleeps too long" FH: family history includes Diabetes in his maternal grandfather and maternal grandmother. SH: reports that he has been smoking cigarettes. He has been smoking about 0.50 packs per day. He has never used smokeless tobacco. He reports current alcohol use. He reports current mathew g use. Frequency: 3.00 times per week. Drug: Marijuana. ROS: Review of Systems Psychiatric/Behavioral: Positive for hallucinations, substance abuse and suicidal ideas. Th e patient is nervous/anxious and has insomnia. All other systems reviewed and are negative. Physical Exam: BP (!) 166/94 | Pulse 84 | Temp 36.7 C (98.1 F) (Oral) | Resp 16 | Wt 61.4 kg (135 lb 4 oz) | SpO2 98% | BMI 19.41 kg/m Physical Exam Constitutional: He appears well-nourished. No distress. HENT: Nose: Nose normal. Eyes: No scleral icterus. Cardiovascular: Normal rate. Pulmonary/Chest: Effort normal. No stridor. Abdominal: Soft. Musculoskeletal: Normal range of motion. Neurological: He is alert. Skin: Skin is warm. Psychiatric: He has fairly normal thought content right now. Does not appear to be having active halluc inations Nursing note and vitals reviewed. Labs: Recent Labs Lab 05/18/19 1519 05/17/19 2254 WBC -- 5.15 HGB -- 15.5 HCT -- 44.4 PLT -- 299 NA 137 135 K 4.1 4.7 CL 105 99 CO2 26 31 ANIONGAP 10 10 BUN 10 11 CREA 0.97 0.96 GLU 415* 447* CALCIUM 8.7 9.2 TP -- 5.9* ALBUMIN -- 4.0 BILI -- 0.4 AST -- 23 ALT -- 19 ALKPHOS -- 82 Problem List: Principal Problem: Suicide ideation Active Problems: Type 2 diabetes mellitus without complication, with long-term current use of insulin ADHD (attention deficit hyperactivity disorder) Marijuana use Tobacco smoker Schizophrenia Assessment and Plan: 1. Schizophrenia with acute psychosis (as per ED provider who saw initially) and suicidal ideation- Crisis is working on placement and has requested that patient be admitted for 24 h our cert hold. 2. DM1 - blood sugar has been rising in the ED. I don't think he received his glargine la st night. He has received 10 U regular insulin SQ x3 today. Will resume his long acting in sulin and place on SSI. 3. Tobacco use- requests nicotine patch. Will order. 05/18/2019 documented in this encounter Consult Notes Abelardo Rdz MD - 05/20/2019 7:45 AM PSTAssociated Order(s): IP TELEPSYCH C ONSULT Tele-Psychiatry Initial Consultation ID: Joni Kwon, a 38 y.o. male : 1980 Site of Service: 6628/6628-01 Date of Service: 05/20/2019 Admit Date: 05/17/2019, Hospital Day: 1 Consent: This exam was conducted via a secure 256-bit AES encrypted bidirectional video session. The following disclaimer was communicated to the patient, "You have chosen to receive care thro [facility] the use of telemedicine. Telemedicine enables health care providers at different locatio to provide safe, effective, and convenient care through the use of technology. As with an health care service, there are risks associated with the use of telemedicine including, bu t not limited to, equipment failure, poor image resolution, and information security analyst issues. " The following questions were asked of the patient: Do you understand the risks and benefits of telemedicine as I have explained them to you? U nable to assess secondary to patient's mental status (please see mental status exam for more details) Have your questions regarding telemedicine been answered? Unable to assess Do you consent to the use of telemedicine in your medical care today? Unable to consent due to mental status. Proceeded with telemedicine technology due to need for acute psychiatric evaluation. Reason for Consult: Patient detained Originating Site: [facility] ([place] Referral: Patient is referred by Hosea Watson MD. History obtained from: Chart review, Referring MD and CM Communication limitations noted:Ac uity of illness and Mental status Chief Complaint: "I don't want to talk" HPI: The patient was sedated and uncooperative upon attempted interview. Attempted to enga ge the patient multiple times. instrumentation manager return to patient room after my first attempt a t interview and asked the patient to participate in interview; however, despite being awake and alert enough to answer questions and provide answers to orientation questions, the patie nt was unwilling to engage in interview. The patient had received 5 mg of IM olanzapine thi s morning at 4:57 AM in the setting of severe agitation. Nursing note dated 05/20/2019 at 6:20 AM documents agitation event as follows, "Patient was cooperative throughout the night until 0400. Patient began swearing under his breath and wh en this RN asked what was wrong he began hitting himself in the face. I verbally attempted t o de-esclate the situation when the patient sat straight up in bed and began swinging. Brad arevalo called. When security arrived, the patient disconnected his IV and was extremely agitat ed. He walked over to the window and began hitting and kicking himself, and had his hand on his throat when security physically restrained him. Security requested that staff call [employer]. Once the police and [facility] arrived we were able to get the patient back into bed and into four point restraints. Patient refusing insulin drip at this time. aware." I attempted to contact the patient's mother to gather collateral but she did not answer her phone. Per chart review, presented to ED 05/17/2019. Earlier that day, the patient's mother called a welfare check after the patient expressed suicidal ideation and a form of Capgras delusio n on the phone with her. Patient was brought to [facility]. However, the pat kathleen left that emergency department. The patient's mother picked him up and brought him to [facility]. The patient was evaluated, found to have elevated blood sug ar, and was referred to the DCRs for danger to self. Subsequently detained on 05/18/2019. Linda [facility] has type 1 diabetes mellitus and has multiple historical admissions related to DKA. G lucose 447 on presentation. Patient received emergency ziprasidone IM 20 mg on 05/18/2019 at 10:29 AM in ED with good a ffect. Patient received emergency olanzapine 5 mg IM 05/20/2019 at 4:57 AM as above. KELLY Report, last updated 01/29/2019, indicates that the patient has not been taking his [facility] medications as prescribed. KELLY.Also notes that the patient has been seeing a tota l of 7 times in ED's over the last 12 months. Allergies list risperidone ("sleeps too long") and haloperidol (swelling). Review of Systems: Signs/symptoms endorsed by the patient are noted in the history of prese nt illness section; a complete review of systems is otherwise negative. Past Psychiatric History: Inpatient treatment: See [facility] psychiatry discharge summary from 09/09/2013 for admi ssion spanning 07/14-09/09/2013; patient "under guardianship" at that time. Patient admitted with uncontrolled type 1 diabetes mellitus and severe, decompensated schizoaffective disorde r, bipolar type. Discharge summary notes, "Patient with schizoaffective disorder. He has be en in the [facility] systems in the past including [facility] and [facility]. Currently fol lowed through [facility]. Dr. Cardenas is his psychiatrist." Outpatient treatment: Per KELLY: "Care Coordination: Please call [facility] CM team if pt. presents to the ED Janeth MARTINEZ/TIMOTHY or Rin dexter RN CM [phone] Please be aware pt. is not currently taking any of his MH medications. PT. is also involved in the ACT team through [facility] . These are guidelines and the provider should exercise clinical judgment when providing care . ED Care Guidelines from [facility] [place] Last Updated: 12/28/18 10:15 AM Care Coordination: Currently engaged in mental health services with the ACT Team at [facility].? Please contact [facility] with mental health concerns.? Ayla/Presley Anguiano: [phone]? These are guidelines and the provider should exercise clinical judgment when providing care ." Historical diagnoses: Schizoaffective disorder Suicide attempts, self-injurious behavior, or violence towards others: History of suicide a ttempt; however, details do not appear to be documented in patient's medical history and the patient is unable to participate in interview. Past medications/treatments: Antidepressants: SNRI's: duloxetine Mood stabilizers: lithium Antipsychotics: quetiapine, perphenazine, lurasidone ("seemed to benefit from" per 2013 discharge summary) Stimulants: Atomoxetine Psychiatric Legal Status: Involuntary PMH: Past Medical History: Diagnosis Date ADHD (attention deficit hyperactivity disorder) Depression Unclear of major depression vs bipolar depression Diabetes mellitus (HCC) Type 1 diabetes Schizophrenia (HCC) Family Psychiatric History: Unable to assess due to inability to engage in interview. Substance use: Ongoing tobacco use. THC positive on lab from 05/17/2019. Social/Developmental History: Unable to assess due to inability to engage in interview (see mental status exam). Per chart review, patient's mother involved in his care and monitors h im. Meds: Medications Prior to Admission Medication Sig Dispense Refill albuterol 90 mcg/puff inhaler Inhale 2 puffs into the lungs EVERY 4 TO 6 HOURS NEEDE D for Wheezing. Ambulatory Compound Builder Needle tips that fit Humalog Kwikpen and Lantus Solostar Us es 5 needles a day 100 Device 0 Ambulatory Compound Builder Stips for Contour Next glucometer disp 100 test 4 times a d ay 100 Device 0 atoMOXetine (STRATTERA) 40 mg capsule Take 40 mg by mouth 2 times daily. DULoxetine (CYMBALTA) [address] capsule Take 40 mg by mouth Daily. glucose blood test strips strip Please use to check your glucose levels in the morni ng and before meals three times a day. 100 each 3 insulin glargine (LANTUS SOLOSTAR) 100 units/mL injection (pen) Inject 25 Units under t he skin every morning. 0 insulin lispro (HUMALOG KWIKPEN) 100 units/mL injection (pen) Inject 5 Units under the skin 3 times daily (with meals). 0 insulin lispro (HUMALOG KWIKPEN) 100 units/mL injection (pen) MODERATE CORRECTION SCALE : Blood Glucose (BG) < 150: None BG 150-200: DAY: 2 units. NIGHT: 0 units BG 201-250: DAY: 4 units. NIGHT: 2 units BG 251-300: DAY: 6 units. NIGHT: 4 units BG 301-350: DAY: 8 units. NIGHT: 5 units BG 351-400: DAY: 10 units. NIGHT: 6 units BG > 400 : DAY: 12 units. 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 Chew and tuck 1 piece every 1-2 hours for weeks 1-6 then every 2-4 hours for weeks 7-9 then every 4-8 hours weeks 10-12 (max 24 pieces/day). traZODone (DESYREL) 50 mg tablet Take 50 mg by mouth nightly. Take 1 tablet by mouth at bedtime may increase to 2 tablets by mouth at bedtime. Current Facility-Administered Medications: acetaminophen (TYLENOL) tablet 650 mg, 650 mg, Oral, Q4H PRN, Cony Castlilo MD albuterol 2.5 mg/3 mL nebulizer solution 2.5 mg, 2.5 mg, Nebulization, RT Q4H PRN, Ernie Watson MD calcium carbonate (TUMS) chewable tablet 1,000 mg, 1,000 mg, Oral, Q4H PRN, Cony rodgers MD Hypoglycemia Management, , , Until Discontinued AND POCT Glucose, , , PRN AND dextrose 50% injection 12.5-25 g, 12.5-25 g, Intravenous, PRN, 25 g at 05/19/192114 AND dextrose 10% (D10W) infusion, , Intravenous, Continuous PRN, Cony Castillo MD dextrose 10% (D10W) infusion, , Intravenous, PRN, Akhil Machado Ma, MD dextrose 5% and sodium chloride 0.45% (D5 1/2 NS) infusion, , Intravenous, Continuous, Akhil Machado Ma, MD, Last Rate: 125 mL/hr at 05/20/19 0422 dextrose 50% injection 2.5-25 g, 5-50 mL, Intravenous, PRN, Akhil Machado Ma, MD docusate sodium (COLACE) capsule 100 mg, 100 mg, Oral, BID PRN, Cony Castillo MD enoxaparin (LOVENOX) 40 mg/0.4 mL injection 40 mg, 40 mg, Subcutaneous, Daily, Cony Castillo MD insulin regular (humuLIN R, novoLIN R) 1 Units/mL in sodium chloride 0.9% 250 mL infus ion (EndoTool), 0.1-50 Units/hr, Intravenous, Titrated, Akhil Machado Ma, MD, Stopped at 9 0450 insulin regular bolus from bag (EndoTool) 1-50 Units, 1-50 Units, Intravenous, Q15 Min PRN, Akhil Machado Ma, MD, 3 Units at 05/20/19 0124 LORazepam (ATIVAN) injection 1 mg, 1 mg, Intravenous, Q4H PRN, Hosea Watson MD nicotine (NICODERM) 14 mg/24 hr 1 patch, 1 patch, Transdermal, Daily, Cony polk MD, 1 patch at 05/18/19 2338 ondansetron (ZOFRAN ODT) disintegrating tablet 4 mg, 4 mg, Oral, Q6H PRN, Cony beyer MD ondansetron (ZOFRAN) injection 4 mg, 4 mg, Intravenous, Q6H PRN, Cony Castillo MD pneumococcal (PNEUMOVAX 23) vaccine injection 0.5 mL, 0.5 mL, Intramuscular, One Time Vaccine, Hosea Watson MD senna (SENOKOT) tablet 8.6 mg, 8.6 mg, Oral, BID PRN, Cony Castillo MD sodium chloride 0.9% (NS) infusion, , Intravenous, Continuous, Akhil Machado Ma, MD, Last Rate: 30 mL/hr at 05/19/191956 Allergies: Allergies Allergen Reactions Bee Venom Anaphylaxis Haldol [Haloperidol] Swelling Levemir [Insulin Detemir] Swelling Risperidone Other (See Comments) "sleeps too long" Vitals: Patient Vitals for the past 24 hrs: BP Temp Temp src Pulse Resp SpO2 Height Weight 05/20/19 0424 123/69 97.3 F (36.3 C) Oral 92 16 99 % 05/19/19 2321 (!) 145/95 98.4 F (36.9 C) Oral 93 16 100 % 05/19/19 1959 (!) 153/96 97.9 F (36.6 C) Oral 71 16 98 % 05/19/19 1516 1.88 m (6' 2") 05/19/19 1511 (!) 140/92 98.4 F (36.9 C) Oral 98 16 94 % 05/19/19 1500 56.8 kg (125 lb 3.5 oz) 05/19/19 0907 131/90 97.9 F (36.6 C) Oral 98 16 99 % 05/18 1901 - 05/20 0700 In: 1140 [P.O.:1140] Out: - Filed Weights: 05/17/19 2155 05/19/19 1500 Weight: 61.4 kg (135 lb 4 oz) 56.8 kg (125 lb 3.5 oz) Body mass index is 16.08 kg/m. Labs: Recent Results (from the past 48 hour(s)) POC Glucose Result Value Ref Range Glucose, POC 111 (H) 65 - 99 mg/dL POC Glucose Result Value Ref Range Glucose, POC >400 (H) 65 - 99 mg/dL POC Glucose Result Value Ref Range Glucose, POC >400 (H) 65 - 99 mg/dL POC Glucose Result Value Ref Range Glucose, POC 400 (H) 65 - 99 mg/dL Basic Metabolic Panel Result Value Ref Range Na 137 135 - 145 mmol/L K 4.1 3.5 - 4.9 mmol/L Cl 105 99 - 109 mmol/L CO2 26 23 - 32 mmol/L Anion Gap 10 5 - 20 mmol/L Glucose 415 (H) 65 - 99 mg/dL BUN 10 8 - 25 mg/dL Creatinine 0.97 0.70 - 1.30 mg/dL BUN/Creatinine Ratio 10 Calcium 8.7 8.5 - 10.5 mg/dL Estimated GFR >60 >60 mL/min/1.73m2 POC Glucose Result Value Ref Range Glucose, POC >400 (H) 65 - 99 mg/dL POC Glucose Result Value Ref Range Glucose, POC >400 (H) 65 - 99 mg/dL Basic Metabolic Panel Result Value Ref Range Na 136 135 - 145 mmol/L K 3.9 3.5 - 4.9 mmol/L Cl 105 99 - 109 mmol/L CO2 24 23 - 32 mmol/L Anion Gap 11 5 - 20 mmol/L Glucose 372 (H) 65 - 99 mg/dL BUN 13 8 - 25 mg/dL Creatinine 0.80 0.70 - 1.30 mg/dL BUN/Creatinine Ratio 16 Calcium 7.9 (L) 8.5 - 10.5 mg/dL Estimated GFR >60 >60 mL/min/1.73m2 POC Glucose Result Value Ref Range Glucose, POC 352 (H) 65 - 99 mg/dL POC Glucose Result Value Ref Range Glucose, POC 299 (H) 65 - 99 mg/dL Basic Metabolic Panel Result Value Ref Range Na 136 135 - 145 mmol/L K 4.4 3.5 - 4.9 mmol/L Cl 101 99 - 109 mmol/L CO2 27 23 - 32 mmol/L Anion Gap 12 5 - 20 mmol/L Glucose 315 (H) 65 - 99 mg/dL BUN 10 8 - 25 mg/dL Creatinine 0.99 0.70 - 1.30 mg/dL BUN/Creatinine Ratio 10 Calcium 9.0 8.5 - 10.5 mg/dL Estimated GFR >60 >60 mL/min/1.73m2 POC Glucose Result Value Ref Range Glucose, POC 318 (H) 65 - 99 mg/dL POC Glucose Result Value Ref Range Glucose, POC >400 (H) 65 - 99 mg/dL Glucose, Random Result Value Ref Range Glucose 520 (HH) 65 - 99 mg/dL Hemoglobin A1C Result Value Ref Range Hemoglobin A1c 10.2 (H) 4.0 - 6.0 % Estimated Average Glucose 246 (H) <154 mg/dL POC Glucose Result Value Ref Range Glucose, POC >400 (H) 65 - 99 mg/dL Glucose, Random Result Value Ref Range Glucose 421 (H) 65 - 99 mg/dL POC Glucose Result Value Ref Range Glucose, POC 322 (H) 65 - 99 mg/dL POC Glucose Result Value Ref Range Glucose, POC 58 (L) 65 - 99 mg/dL POC Glucose Result Value Ref Range Glucose, POC 54 (L) 65 - 99 mg/dL POC Glucose Result Value Ref Range Glucose, POC 378 (H) 65 - 99 mg/dL POC Glucose Result Value Ref Range Glucose, POC 268 (H) 65 - 99 mg/dL POC Glucose Result Value Ref Range Glucose, POC 138 (H) 65 - 99 mg/dL POC Glucose Result Value Ref Range Glucose, POC 147 (H) 65 - 99 mg/dL POC Glucose Result Value Ref Range Glucose, POC 186 (H) 65 - 99 mg/dL Mental Status Exam: Appearance: Disheveled and dressed in hospital gown. Appearing thin. Lying in bed with eye s closed for most of the interview. Behavior: Uncooperative cooperative, appearing sedated, no eye-contact, and slowed psychomo tor activity. Speech: Normal rate, low volume, impaired articulation, impaired coherence, and decreased s pontaneity. Mood: "tired" Affect: Unable to properly assess due to sedation. Thought Process: Appearing (and corroborated by documented behaviors) disorganized, illogic al, unclear rate of thoughts, and impaired abstract reasoning. Unable to assess computation al reasoning. Associations: Circumstantial. Thought Content: Does not endorse delusions or obsessions during my interview; however, [facility] record suggests Capgras-like delusion and delusions related to medical care. Perceptions: Unable to participate in interview to the point that we can assess for current auditory/visual/olfactory/tactile/other hallucinations/illusions. Judgment: Poor Insight: Poor Orientation: Oriented to person and place. Refuses to answer questions about orientation t o time. Memory: Unable to assess recent and remote memory. Attention/Concentration: Attention and concentration are impaired likely secondary to sedat ion. Language: No gross evidence of aphasias or other language disturbances; however, assessment is significantly limited. Fund of knowledge: Unable to assess (see above). Safety Assessments: [place]-Suicide Severity Rating Scale (C-SSRS) Admit/Consult Screen 1. Within the past month, have you wished you were or wished you could go to sleep and not wake up? Unable to assess (see above) 2. Within the past month, have you had any actual thoughts of killing yourself? Unable to a ssess (see above) Skip to item 6 if "No" to item 2. 3. Have you been thinking about how you might kill yourself? Unable to assess (see above) 4. Have you had these thoughts and had some intention of acting on them? Unable to assess ( see above) 5. Have you started to work out or worked out the details of how to kill yourself and, if y ou have, do you intend to carry out this plan? Unable to assess 6. Within the past month, have you done anything, started to do anything, or prepared to do anything to end your life? Unable to assess Suicide risk assessment: The following suicide risk assessment was completed. The structure of the assessment was de rived from the [place]-Suicide Severity Rating Scale, the SAFE-T, best available current cl inical evidence, and clinical judgment. Importantly, suicide risk assessment is an imprecise procedure and studies have yet to identify an assessment method that offers a high predicti ve value. Ideation evaluation: Unable to assess current suicidal ideation (see above regarding mental status); however, patient has a recent history of both behaviors and statements that sugges t ongoing suicidal ideation. Risk factors: The patient has a history of suicide attempt. Safety plan: The patient is currently hospitalized. The patient is detained and we are pur suing inpatient psychiatric hospitalization. The patient has a patient's food safety field specialist. We are attempting to optimize psychiatric treatment. Homicide/Violent Behavior Risk Assessment: Unable to assess for the presence or absence of homicidal ideation, violent preoccupations, or other violent thoughts/behavioral patterns du e to the aforementioned sedation and uncooperativeness. The patient is currently hospitaliz ed, detained, and has a patient's food safety field specialist. We are attempting to optimize the patie nt's psychiatric care and are pursuing involuntary psychiatric hospitalization. The structure of the above assessment was derived from the Historical, Clinical, Risk Manag ement-20 (HCR-20) tool; best available current clinical evidence; and clinical judgment. Assessment: Joni Kwon is a 38 y.o. male with this patient has a history of wolfgang izoaffective disorder, bipolar type, multiple episodes and is currently in an acute episode. My evaluation is limited due to the patient's sedation and refusal to engage in interview. Based upon chart review and discussion with treating providers, this historical diagnosis appears consistent with the current presentation. The patient is presenting with an acute p sychotic episode and has exhibited behaviors in the hospital that confirm his potential josue erousness to himself as well as evidencing a degree of agitation that risks serious physical harm to treating staff. It is my assessment that the patient continues to meet criteria fo r involuntary detainment and that inpatient psychiatric hospitalization should be pursued. This patient has apparently been noncompliant with outpatient psychiatric medication regime n. The patient has listed duloxetine and atomoxetine as outpatient medications. I cannot f ind record of a regular outpatient antipsychotic. I would recommend against restarting dulo xetine and atomoxetine, both because the patient was apparently not taking these and because I feel they are contraindicated in his case. I would recommend against the treatment with any stimulant in this patient given his diagnosis of schizoaffective disorder, bipolar type. I am concerned that stimulants have a high probability of worsening this patient's conditi on. The patient has apparently had a positive response to lurasidone in the past (see psychiatr ic history). This medication is more metabolically neutral than other antipsychotics. Give n this patient's poorly controlled type 1 diabetes mellitus, I feel that lurasidone is a goo d antipsychotic choice to treat his acute psychotic episode. Please see recommendations for starting this medication below. Given the level of agitation that this patient has already exhibited, it is probable that h e will continue to require a PRN medication option for emergencies. I would recommend zipra sidone given its relative metabolic neutrality and the patient's positive response to this i n the emergency department. Ziprasidone can be associated with QTc prolongation, so I asked the primary treating provider to obtain an ECG. I would recommend more close monitoring of QTc interval if the patient receives multiple doses of ziprasidone. Please see below for m ore detailed recommendations. I attempted to call the patient's mother, however, she did not answer. I would recommend c oordinating care and obtaining collateral from mother. Safety: See "Safety Assessment" section above for detailed description of safety assessment . DSM Diagnosis(es): Schizoaffective disorder, bipolar type, multiple episodes, currently in acute episode Treatment Plan/Recommendations: Evaluation and recommendations discussed with Hosea mendenhall MD. -The patient is detained. 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 -Do not restart atomoxetine or any of the patient's outpatient psychiatric medication regim en (he was apparently not taking these anyway) -Start PO lurasidone 40 mg daily if patient is willing to accept medications. If this is w ell tolerated, can increase to 60 mg daily in 3-7 days. Continue titrating to targeted clin ical effect (i.e., reduction in psychotic symptoms) to a maximum of 160 mg daily -Obtain baseline ECG -For emergencies in which there is an imminent likelihood of serious harm and the patient r efuses PO medication, suggest PRN IM ziprasidone 10 mg up to 4 times a day (max dose 40 mg d aily) for severe agitation. If 10 mg is ineffective, can try IM ziprasidone 20 mg up to twi ce daily for severe agitation. If patient is receiving multiple doses of this medication, r ecommend daily ECGs to monitor QTC. -If ziprasidone is ineffective in emergency situations, can discontinue and write for PRN I M olanzapine 5 mg up to 4 times daily for emergencies as above. -Support pursuit of inpatient psychiatric treatment. Follow up: Psychiatry follow up is required daily while the patient is on an involuntary ho ld, but we will not know the patient is still there unless you re-consult. Please initiate a daily follow up with our service while this patient is in your facility. Please do not hesi frankel to call us through the [facility] if you have questions. MDM Statement: Moderate. The current evaluation and management encounter addressed 1 established worsening/not contr olled/unchanged diagnosis(es) (2 pts each). A decision was made to review the patient's electronic medical record to gather additional history; I have summarized the results of this review throughout this document with sources cited where possible (2 pts). and Laboratory data were reviewed and my interpretation of per tinent results are included throughout this document (1 pt). This patient's current presentation represents a severe exacerbation of a chronic illness(e s) (High). MEDICAL DECISION MAKING Straight-forward Low Moderate High Diagnosis/Treatment Options ?1 pt 2 pts 3 pts ?4 pts Amount/Complexity of Data Reviewed ?1 pt 2 pts 3 pts ?4 pts Complication Risk Factor Minimal Low Moderate High 2 of 3 must be met or exceeded. Electronically signed by: Abealrdo Rdz MD 05/20/2019 7:46 AM CONFIDENTIAL: DO NOT COPY WITHOUT WRITTEN PERMISSION TO RELEASE MENTAL HEALTH RECORDS documented in this encounter ED Notes Karan Dominguez RN - 05/19/2019 10:38 AM PSTPt sleeping. Pt has no wants or needs at this t ime Kylie Andre RN - 05/19/2019 7:07 AM PSTMeal tray at bedside Kylie Andre RN - 05/19/2019 2:27 AM PSTPt has been sleeping for the past hour. Sitter remains present. Kylie Andre RN - 05/19/2019 1:00 AM PSTPt requesting tea. Cup of smiley tea provided. Kylie Andre RN - 05/19/2019 12:35 AM PSTAssumed care of patient at this time. Repor t received from ERIKA Hensley. Pt laying in bed. Sitter remains outside of room with direct vi sualization of patient. Tacos Steele PA - 05/18/2019 9:03 PM PSTFormatting of this note might be different fro m the original. 1300: Assumed care from Dr. Brian at end of shift. At this time, patient is stable. Killian sargent is here evaluating him. They have contacted multiple inpatient facilities, and are awaiti ng return phone calls for approval. 1500: Patient's glucose continues to spike. Will treat with 10 units of insulin 1600: Crisis still awaiting return phone calls 1730: crisis states that all facilities have declined taking the patient. Will admit the p atient for psychiatric hold. 1930: Patient's blood sugar has spiked over 400. Will order another 10 units of insulin. ED diagnosis: 1. Schizophrenia, unspecified type (HCC) 2. Acute psychosis (HCC) CHLOE Oates 05/18/192105 Associated attestation - Tacos Brian MD - 05/19/2019 7:51 AM PSTI was available for dire ct supervision of the MLP as needed, please see their note for details. Marbin Weir RN - 05/18/2019 8:24 PM PSTPOCT blood sugar checked, out of range, high, no tified provider. Marbin Vance RN - 6:29 PM PSTPt being cooperative in bed. I ordered him food. No expressed harm to se lf or others at this time. Marbin Vance RN - 05/18/2019 2:48 PM PSTPt resting in bed; BG greater than 400 and rep orted to PA-C; insulin given. Food ordered from cafeteria for patient. [facility] RN - 05/18/2019 12:54 PM PSTPt resting in bed and being cooperative at this time. He has been gi val lunch and juice. Blood sugar is elevated. Dr. Brian notified. Pt has normal respirations . Good color. He is ambulatory around room. Electronically signed by Marbin Weir RN at 12:55 PM Maribn Vance RN - 05/18/2019 10:29 AM PSTPt was speaking with a crisis rep when all of a sudden he became extremely disruptive, threatening staff, and throwing th ings at crisis c s s representative. Pt broke a chair in the room and through his food on the floo r. Pt is resting in bed; security and [employer] at bedside. Pt is cooperating with staff at [facility]. Will continue to monitor. When Pt had his outburst he started stating that "things were in his mind." Aditi Joseph RN - 05/18/2019 10:20 A M PSTCrisis at bedside. Pt verbally aggressive and throwing food tray at crisis employee. Miriam guerrero called. Dr. Brian, security and ERIKA Zazueta at bedside. Marbin Vance RN - 05/18/2019 10:02 AM PSTPt voicing n o harm to self or others. Pt BG is trending down. Pt was just given juice, pudding, and appl e juice. Pt also just ordered food. Pt is ambulatory and compliant at this time. No acute di stress noted. Josh Perez RN - 05/18/2019 9:09 AM PSTOden biometrics technician has contacted crisis, the pt is next to be seen. Latosha Perez RN - 05/18/2019 9:02 AM PSTDrPaula Brian informed the pt is requesting to eat. The pt takes a long acting insulin and uses a sliding scale. He is unable to provide specifics as to what the name of his medication is, and the amount of insulin he takes. Yanelis Barahona RN - 05/18/2019 4:26 AM PS TInformation [facility] 4:2 6 AM Natividad Hernandez Technologist - 05/18/2019 4:25 AM PSTBlood Glucose Result of 172 at 0349. Codie Barahona RN - 05/17/2019 11:54 PM PSTRT contacted regarding VBG Shalonda Moon RN - 05/17/2019 11: 02 PM PSTMothers name is beto, her number is [id number] signed by Shalonda Ocampo RN at 05/17/2019 11:02 PM Shalonda Moon RN - 2018 11:02 [address]Dr alexis. MHP, [employer] at bedside. Red, Shalonda Varela RN - 05/17/2019 11:02 PM PSTInterventions for oqjpmep-wzys-eddjvmpy risk patients 1. Initiated suicide precautions and placed a suicide precautions order 2. Patient has 1:[address] at all times. 3. Completed an environmental risk assessment form 4. Removed patient belongings from room 5. Will use paper products for meal trays. 6. Completed C-SSRS suicide screen flow sheet 7. Will document on the suicide-psych observation flowsheet every 2 hours Kamaljit Benjamin garcía, DO - 05/17/2019 10:42 PM PST [facility] Department of Emergency Medicine 10:42 PM History of Present Illness Patient Identification Joni Kwon is a 38 y.o. male. Patient information was obtained from family. History/Exam limitations: mental status. Patient presented to the Emergency Department by: Car Chief Complaint Chief Complaint Patient presents with Psychiatric Evaluation "I've been isolated a lot and sleeping, I'm having lots of psych issues", when asked abou t suicidal ideation, pt states, "occasionally it crosses my mind" Elevated Blood Sugar (Asymptomatic) 200s at home The patient presents to ED for a psychiatric evaluation and elevated blood sugar. Onset of symptoms was today, with a constant course since that time. The symptoms are described to be of moderate severity. The patient describes the quality and location of the symptoms as the following: expressing suicidal ideations and states, "other people are pretending to be the people that care about [him]." Patient's mother reports he called her today telling her he was dying. She states she called in a welfare check for him and they took him to [facility]. She reports he walked out of the hospital there after noted to have high blood sugar, after which, she picked him up and brought him here. Patient's mother reports his blo od sugar has fluctuated a lot today, and it has been higher than the machine could read. Leora wang's mother reports he takes insulin for his blood sugar, but she is not sure whether he h as used it recently. After he was checked in here at before I saw him, he eloped from the d epartment. Please brought him back. Patient's mother reports a history of schizoaffective disorder, bipolar disorder, and ADHD. Patient's mother states he has a history of harmful a ctions towards her when he has had similar issues with his blood sugar. Patient reports he has not gotten sleep for a long time because it feels like, "bugs are biting [him]." The leora wang also complains of nothing. Patient denies pain, or any other symptoms at this time. Car e prior to arrival consisted of nothing, with no relief. PCP: No Physician on file Past [...] HOURS NEEDED fo r Wheezing. Historical Provider, Ambulatory Compound Builder Needle tips that fit Humalog Kwikpen and Lantus Solostar Uses 5 needles a day 05/03/17 Kevin Gifford MD Ambulatory Compound Builder Stips for Contour Next glucometer disp 100 test 4 times a day 1 07/03/16 Kevin Gifford MD glucose blood test strips strip Please use to check your glucose levels in the morning a nd before meals three times a day. 05/09/17 Dougie Yin MD insulin glargine (LANTUS SOLOSTAR) 100 units/mL injection (pen) Inject 25 Units under the s kin every morning. 05/03/17 Kevin Gifford MD insulin lispro (HUMALOG KWIKPEN) 100 units/mL injection (pen) Inject 5 Units under the skin 3 times daily (with meals). 05/03/17 Kevin Gifford MD insulin lispro (HUMALOG KWIKPEN) 100 units/mL injection (pen) MODERATE CORRECTION SCALE: Blood Glucose (BG) < 150: None BG 150-200: DAY: 2 units. NIGHT: 0 units BG 201-250: DAY: 4 units. NIGHT: 2 units BG 251-300: DAY: 6 units. NIGHT: 4 units BG 301-350: DAY: 8 units. NIGHT: 5 units BG 351-400: DAY: 10 units. NIGHT: 6 units BG > 400 : DAY: 12 units. NIGHT: 8 units CALL PROVIDER if above 400 DAY for meals and NIGHT for bedtime 05/03/17 Kevin Gifford MD Allergies Allergen Reactions Haldol [Haloperidol] Swelling Levemir [Insulin Detemir] Swelling Risperidone Other (See Comments) "sleeps too long" Social History Socioeconomic History Marital status: Single Spouse name: Not on file Number of children: Not on file Years of education: Not on file Highest education level: Not on file Occupational History Not on file Social Needs Financial resource strain: Not on file Food insecurity: Worry: Not on file Inability: Not on file Transportation needs: Medical: Not on file Non-medical: Not on file Tobacco Use Smoking status: Current Every Day Smoker Packs/day: 0.50 Types: Cigarettes Smokeless tobacco: Never Used Substance and Sexual Activity Alcohol use: Yes Comment: occassionally Drug use: Yes Frequency: 3.0 times per week Types: Marijuana Sexual activity: Not on file Lifestyle Physical activity: Days per week: Not on file Minutes per session: Not on file Stress: Not on file Relationships Social connections: Talks on phone: Not on file Gets together: Not on file Attends synagogue service: Not on file Active member of club or organization: Not on file Attends meetings of clubs or organizations: Not on file Relationship status: Not on file Intimate partner violence: Fear of current or ex partner: Not on file Emotionally abused: Not on file Physically abused: Not on file Forced sexual activity: Not on file Other Topics Concern Not on file Social History Narrative Not on file Family History Problem Relation Age of Onset Diabetes Maternal Grandfather Diabetes Maternal Grandmother Review of Systems Constitutional: Negative for fever, chills Positive for elevated blood sugar Eyes: Negative for vision changes Nose: Negative for congestion Throat: Negative for sore throat CV/Resp: Negative for chest pain, imjfpsbtk-oq-ifatea GI: Negative for abdominal pain, nausea, vomiting, or diarrhea : Negative for urinary problems Musculoskeletal: Negative for back pain Skin: Negative for rash Neuro/Psych: Negative for headache Positive for suicidal ideations Endo/heme/Lymph: Negative for easy bruising All other systems reviewed and negative except as noted. Physical Exam Temp: 36.8 C (98.3 F) Pulse: 117 Resp: 20 BP: 133/82 SpO2: 98 % Vital signs interpretation: Hypertensive, otherwise normal. General: Alert, anxious Eyes: Normal inspection, pupils equal and round, non-icteric ENT: Ears normal Nose normal Pharynx normal Neck: Normal inspection Supple Cardiovascular: Tachycardic rate, normal rhythm No murmurs Respiratory: Breath sounds normal bilaterally No rales, wheezing or rhonchi Abdomen: Soft, non-tender, non-distended No guarding or rebound Back: Normal inspection Skin: Color normal Warm and dry No rash Neuro: Alert, normal speech, no facial droop No gross motor/sensory deficits Psych: Apparent hallucinations, transantral speaking, difficult maintaining thought/answer ing questions, alert and oriented Medical Decision Making and Emergency Department Course ED Department Course Patient presents to ED for a psychiatric evaluation and elevated blood sugar. Patient does have a history of type 1 diabetes, insulin-dependent, and given his acute mental state like ly not very compliant with management. Hfwgq-jo-eqej glucose significant elevated. Will ev aluate for possible DKA, treat hyperglycemia, check flexion abnormalities, and evaluate for mental health status. After initial history and physical exam I placed the patient on a physician psychiatric hol d. A hold was placed because we felt patient was in imminent danger of self-harm and elopeme nt. I obtained labs including CBC, CMP, TSH and UA to eval for organic disease. I also obtained a serum ETOH, Tylenol, Aspirin level and UDS. Results show hyperglycemia, however no indica tion of DKA with a normal anion gap, normal pH, no serum ketones. We will continue to treat hyperglycemia gradually. I considered medical etiologies of the patient's symptoms including metabolic and toxicolog ical and none were found in our history, physical exam, or lab workup. There was no indicati on of significant trauma on exam. 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 The patient di d not endorse any overdose. I believe the patient should be admitted to an inpatient psychiatric facility for further o bservation and treatment. The patient remained afebrile and hemodynamically stable during ED stay. I contacted Crisis Response Team who will interview the pt as well. 23:35 Drug screen is positive for THC. Labs show elevated glucose at 447, and low TP at 49. Labs are otherwise unremarkable. TSH is 1.314. Blood ketones are negative. 00:02 Venous blood gas shows elevated PCO2 at 54, low pO2 at 19, elevated HCO3 at 29, eleva eleno TCO2 at 30, and low SO2.BLDV.QN at 25.0%. 06:[address] Brian pending crisis evaluation. Temp: 36.8 C (98.3 F) Pulse: 111 Resp: 18 BP: 111/62 SpO2: 98 % Medications ziprasidone (GEODON) injection 20 mg (20 mg Intramuscular Given 05/17/19 6923) sodium chloride 0.9% (NS) bolus 2,000 mL (2,000 mLs Intravenous New Bag 05/17/19 2340) insulin regular (humuLIN R, novoLIN R) injection 10 Units (10 Units Intravenous Given 05/18 4808) sodium chloride 0.9% (NS) bolus 1,000 mL (1,000 mLs Intravenous New Bag 05/18/19 3547) Records Reviewed Old medical records. Nursing notes. Laboratory Evaluation Results Procedure Component Value Ref Range Date/Time Blood gas, Venous [[id number]] (Abnormal) Collected: 05/18/19 0001 Order Status: Completed Updated: 05/18/19 0004 pH, Venous, POC 7.335 7.310 - 7.410 PCO2, Venous, POC 54 41 - 51 mmHG pO2, Venous 19 30 - 40 mmHG HCO3, Venous 29 23 - 28 mmol/L TCO2, POC 30 24 - 29 mEq/L Base Excess, POC 3 0 - 3 mEq/L POC SO2.BLDV.QN.(%) 25.0 60 - 85 % Comment, POC Abdiel Test not indicated CBC with Differential [[id number]] Collected: 05/17/19 2254 Order Status: Completed Specimen: Blood Updated: 05/18/19 0003 WBC 5.15 3.80 - 11.00 K/uL RBC 4.94 4.20 - 5.70 M/uL Hemoglobin 15.5 13.2 - 17.0 g/dL Hematocrit 44.4 39.0 - 50.0 % MCV 89.9 80.0 - 100.0 fl MCH 31.4 27.0 - 34.0 pg MCHC 35.0 32.0 - 35.5 g/dL RDW-SD 39.8 37 - 53 fl Platelet Count 299 150 - 400 K/uL MPV 9.0 fl Diff Type AUTOMATED % Neutrophils 62.96 % % Lymphocytes 24.33 % Monocyte % 9.04 % Eosinophils % 2.62 % Basophils % 1.05 % Neutrophils, Absolute 3.25 1.90 - 7.40 K/uL Absolute Lymphocytes 1.25 1.00 - 3.90 K/uL Absolute Monocytes 0.47 0.00 - 0.80 K/uL Eosinophils, Absolute 0.14 0.00 - 0.50 K/uL Basophils, Absolute 0.05 0.00 - 0.10 K/uL Comprehensive Metabolic Panel [[id number]] (Abnormal) Collected: 05/17/192253 Order Status: Completed Specimen: Blood Updated: 05/17/192335 Na 135 135 - 145 mmol/L K 4.7 3.5 - 4.9 mmol/L Cl 99 99 - 109 mmol/L CO2 31 23 - 32 mmol/L Anion Gap 10 5 - 20 mmol/L Glucose 447 65 - 99 mg/dL BUN 11 8 - 25 mg/dL Creatinine 0.96 0.70 - 1.30 mg/dL BUN/Creatinine Ratio 11 Calcium 9.2 8.5 - 10.5 mg/dL Protein, Total 5.9 6.3 - 8.2 g/dL Albumin 4.0 3.6 - 5.0 g/dL Globulin 1.9 1.3 - 4.9 g/dL A/G Ratio 2.1 1.0 - 2.4 BILIRUBIN, TOTAL 0.4 0.1 - 1.5 mg/dL ALK PHOS 82 35 - 115 U/L AST 23 10 - 45 U/L ALT 19 10 - 65 U/L Estimated GFR >60 >60 mL/min/1.73m2 Ethanol [[id number]] Collected: 05/17/192253 Order Status: Completed Specimen: Blood Updated: 05/17/192335 ALCOHOL, SERUM/PLASMA <10 <10 mg/dL Salicylate Level [[id number]] Collected: 05/17/192253 Order Status: Completed Specimen: Blood Updated: 05/17/192335 Salicylate, mg/dL <3.0 2.8 - 20.0 mg/dL TSH [[id number]] Collected: 05/17/192253 Order Status: Completed Specimen: Blood Updated: 05/17/19 2336 TSH 1.314 0.450 - 5.100 uIU/mL Acetaminophen Level [[id number]] (Abnormal) Collected: 05/17/192253 Order Status: Completed Specimen: Blood Updated: 05/17/196 Acetaminophen, S <2.0 10.0 - 30.0 ug/mL Drugs Of Abuse Screen, Urine (H) [[id number]] (Abnormal) Collected: 05/17/192257 Order Status: Completed Specimen: Urine Updated: 05/17/19 2320 Amp/Methamphetamine, Screen, Urine NEGATIVE NEG Barbiturates Screen, Urine NEGATIVE NEG Benzodiazepines Screen, Urine NEGATIVE NEG Cocaine Metabolites, Ur NEGATIVE NEG Methadone Screen, Urine NEGATIVE NEG Opiates Screen, Urine NEGATIVE NEG Phencyclidine Screen, Urine NEGATIVE NEG Tetrahydrocannabinol(THC) POSITIVE NEG Ketones, Serum [[id number]] Collected: 05/17/192253 Order Status: Completed Specimen: Blood Updated: 05/17/19 2317 Ketones, Blood NEGATIVE NEG POC Glucose [[id number]] (Abnormal) Collected: 05/17/192252 Order Status: Completed Updated: 05/17/19 2302 Glucose, POC >400 65 - 99 mg/dL I personally reviewed the lab results and they have been posted to the chart. Pertinent po sitive and negative findings have been addressed appropriately. Radiology and EKG Evaluation Imaging Results None Disposition: FINAL IMPRESSION No diagnosis found. ED Disposition None Discharge Medications: ED Prescriptions None Procedures Attending Provider Note: I, Benjamin Espinoza DO personally performed the services describ ed in this documentation, as scribed by Shazia Kelly in my presence, and it is both accur ate and complete. Chart Reviewed and Completed. Scribe: I Gaby Cardona, scribing for and in the presence of Benjamin Espinoza DO . Completed by: Gaby Cardona 05/18/2019 5:30 AM Benjamin Espinoza DO 05/18/192036 Suad Moon RN - 05/17/2019 10:14 PM PSTWhen attempting to triage pt, pt Became upset and states " im leaving, im just going to go kill myself, you guys need to just let me kill myse lf". This rn asked pt to please be evaluated and give me a second to go get the Dr. Pt storm ed out and states "im going to go kill myself". Provider was unable to see pt before leaving er. Family was at bedside, this rn advised family to call 911. This rn called dispatch to infor m them about pt being suicidal. Dr Espinoza notified of incident. documen eleno in this encounter Miscellaneous Notes Plan of Jesus - Elisa Mendez RN - 05/21/2019 3:50 PM PST Problem: Fall Injury Risk Goal: Absence of Fall and Fall-Related Injury Outcome: Ongoing, progressing Sitter present in the room Steady gait noted lan of Care - Amy Villavicencio RN - 05/21/2019 6:34 AM PSTProblem: Adult Inpatient Plan of C are Goal: Plan of Care Review Outcome: Ongoing, progressing Goal: Patient-Specific Goal Outcome: Ongoing, progressing Problem: Sleep Impairment (Psychotic Signs/Symptoms) Goal: Improved Sleep Hygiene (Psychotic Signs/Symptoms) Outcome: Ongoing, progressing Problem: Sensory Perception Impairment (Psychotic Signs/Symptoms) Goal: Decreased Frequency and Intensity of Sensory Symptoms (Psychotic Signs/Symptoms) Outcome: Ongoing, progressing Problem: Suicide Risk Goal: Absence of Self-Harm Outcome: Ongoing, progressing End of shift note: Patient had a flat affect throughout the night. He agreed to vital signs one time and accep eleno his HS insulin. No acute changes to initial assessment overnight. Chart review and 24 hour chart check complete. lan of Jesus - Elisa Ash RN - 05/20/2019 5:16 PM PST Problem: Fall Injury Risk Goal: Absence of Fall and Fall-Related Injury Outcome: Ongoing, progressing Steady on feet; Sitter in room Problem: Cognitive Impairment (Psychotic Signs/Symptoms) Goal: Improved Thought Clarity and Organization (Psychotic Signs/Symptoms) Outcome: Ongoing, not progressing Patient refusing to take new psych medicationsElectronically signed by ERIKA Mcguire 05/20/2019 5:16 PM PSTPlan of Jesus - Sylvia Nagy MSW - 05/20/2019 8:27 AM PSTM SW contacted Crisis ([phone]) to update them regarding the incident on 05/20 at 0400- Per ERIKA Reyes- "Patient was cooperative throughout the night until 0400. Patient began swea ring under his breath and when this RN asked what was wrong he began hitting himself in the face. I verbally attempted to de-esclate the situation when the patient sat straight up in b ed and began swinging. Brad arevalo called. When security arrived, the patient disconnected his IV and was extremely agitated. He walked over to the window and began hitting and kicking h imself, and had his hand on his throat when security physically restrained him. Security req uested that staff call [employer]. Once the police and PCC arrived we were able to get the patient back into bed and into four point restraints. Patient refusing insulin drip at this time. aware." [facility] [address] [facility] [address] [place] [id number] Crisis thanked this CM for the information, and states that it will not be difficult to mikala ce pt. SIZE ROLLER OPERATOR requested that pt be prioritized for a tele-psych consult PETE. Tele-psych consult cart placed in pt's room. Tele-psych attempted to speak with pt. However, pt would not wake up to speak with psychiat rist. MONI GAINES lan of Jesus - Amy Villavicencio RN - 05/20/2019 6:20 AM PSTProblem: Adult Inpatient Plan of Care Goal: Plan of Care Review Outcome: Ongoing, progressing Goal: Patient-Specific Goal Outcome: Ongoing, progressing Problem: Fall Injury Risk Goal: Absence of Fall and Fall-Related Injury Outcome: Ongoing, progressing Problem: Suicide Risk Goal: Absence of Self-Harm Outcome: Ongoing, progressing End of shift note: Patient was cooperative throughout the night until 0400. Patient began swearing under his b reath and when this RN asked what was wrong he began hitting himself in the face. I verbally attempted to de-esclate the situation when the patient sat straight up in bed and began swi nging. Brad irina called. When security arrived, the patient disconnected his IV and was extr sheryl agitated. He walked over to the window and began hitting and kicking himself, and had his hand on his throat when security physically restrained him. Security requested that stacharlee f call [employer]. Once the police and PCC arrived we were able to get the patient back into bed an d into four point restraints. Patient refusing insulin drip at this time. MD aware. Chart review and 24 hour chart check complete. lan of Reji Harris RN - 05/19/2019 5:47 PM [facility] [place] called. They have declined pt d/t aggressive behaviors and acuity on their unit at this time. lan of Suzan Leung MSW - 05/19/2019 4:11 PM PSTTelepsych consult has been requested, per Annabella/CRM office. 6:37pm logged on to telepsych schedule, request for consult still shows "unscheduled." Ghazala ctronically signed by MONI Ledesma at 05/19/2019 7:17 PM PSTPlan of Sarahi Harper RN - 05/19/2019 3:57 PM PST Rica Fitzpatrick RN 05/19/2019 lan of Suzan Galaviz MSW - 05/19/2019 1:50 PM PSTMet with patient, patient had just finis hed eating meal. Sitter placed outside room, reports patient has been cooperative and pleas ant. CM met with patient. Patient lying in bed, playing on phone, pleasant, cooperative, d enies current hallucinations. Reports social stressors and concerns for his safety and stat es understanding of current admission plan while awaiting placement [facility]. Patient expr esses appreciation for CM visit and concern, returned to playing on phone as CM exited room. lan of Jesus BejaranoDasha wilcoxa, SIZE ROLLER OPERATOR - 05/19/2019 1:05 PM PSTAttempted earlier to reach Dr. Castillo for psych consult, Dr. Bee now on, left [facility] requesting telepsych consult. lan of Naeem Forbes MSW - 05/18/2019 4:31 PM PSTPer [facility]. When documents ar e available, CM will fax to CRM office. Electronically signed by MONI Woodard at 019 4:32 PM PSTPlan of Naeem Forbes MSW - 05/18/2019 10:29 AM PSTCrisis is present to evaluate patient. doc umented in this encounter Plan of Treatment + +------+--------+ + + | Name | Type | Priori | Associated Diagnoses | Date/Time | | | | ty | | | + +------+--------+ + + | ED INFORMATION | KELLY | Routin | | 05/17/2019 9:51 PM | | EXCHANGE | | e | | PST | + +------+--------+ + + documented as of this encounter Procedures + +--------+ + + + | Procedure Name | Priori | Date/Time | Associated Diagnosis | Comments | | | ty | | | | + +--------+ + + + | POC GLUCOSE (NON | Routin | 05/21/2019 | | Results for this | | ORD) | e | 5:36 PM | | procedure are in the | | | | PST | | results section. | + +--------+ + + + | POC GLUCOSE (NON | Routin | 05/21/2019 | | Results for this | | ORD) | e | 5:09 PM | | procedure are in the | | | | PST | | results section. | + +--------+ + + + | POC GLUCOSE (NON | Routin | 05/21/2019 | | Results for this | | ORD) | e | 4:51 PM | | procedure are in the | | | | PST | | results section. | + +--------+ + + + | POC GLUCOSE (NON | Routin | 05/21/2019 | | Results for this | | ORD) | e | 3:10 PM | | procedure are in the | | | | PST | | results section. | + +--------+ + + + | POC GLUCOSE (NON | Routin | 05/21/2019 | | Results for this | | ORD) | e | 2:48 PM | | procedure are in the | | | | PST | | results section. | + +--------+ + + + | POC GLUCOSE (NON | Routin | 05/21/2019 | | Results for this | | ORD) | e | 11:45 AM | | procedure are in the | | | | PST | | results section. | + +--------+ + + + | BASIC METABOLIC | Routin | 05/21/2019 | | Results for this | | PANEL | e | 10:59 AM | | procedure are in the | | | | PST | | results section. | + +--------+ + + + | POC GLUCOSE (NON | Routin | 05/21/2019 | | Results for this | | ORD) | e | 8:28 AM | | procedure are in the | | | | PST | | results section. | + +--------+ + + + | POC GLUCOSE (NON | Routin | 05/20/2019 | | Results for this | | ORD) | e | 9:31 PM | | procedure are in the | | | | PST | | results section. | + +--------+ + + + | POC GLUCOSE (NON | Routin | 05/20/2019 | | Results for this | | ORD) | e | 6:06 PM | | procedure are in the | | | | PST | | results section. | + +--------+ + + + | POC GLUCOSE (NON | Routin | 05/20/2019 | | Results for this | | ORD) | e | 4:35 PM | | procedure are in the | | | | PST | | results section. | + +--------+ + + + | POTASSIUM | Routin | 05/20/2019 | | Results for this | | | e | 3:58 PM | | procedure are in the | | | | PST | | results section. | + +--------+ + + + | POC GLUCOSE (NON | Routin | 05/20/2019 | | Results for this | | ORD) | e | 11:37 AM | | procedure are in the | | | | PST | | results section. | + +--------+ + + + | BASIC METABOLIC | Routin | 05/20/2019 | | Results for this | | PANEL | e | 10:07 AM | | procedure are in the | | | | PST | | results section. | + +--------+ + + + | ECG 12 LEAD | Routin | 05/20/2019 | | Results for this | | | e | 9:26 AM | | procedure are in the | | | | PST | | results section. | + +--------+ + + + | POC GLUCOSE (NON | Routin | 05/20/2019 | | Results for this | | ORD) | e | 4:24 AM | | procedure are in the | | | | PST | | results section. | + +--------+ + + + | POC GLUCOSE (NON | Routin | 05/20/2019 | | Results for this | | ORD) | e | 3:23 AM | | procedure are in the | | | | PST | | results section. | + +--------+ + + + | POC GLUCOSE (NON | Routin | 05/20/2019 | | Results for this | | ORD) | e | 2:21 AM | | procedure are in the | | | | PST | | results section. | + +--------+ + + + | POC GLUCOSE (NON | Routin | 05/20/2019 | | Results for this | | ORD) | e | 1:22 AM | | procedure are in the | | | | PST | | results section. | + +--------+ + + + | POC GLUCOSE (NON | Routin | 05/20/2019 | | Results for this | | ORD) | e | 12:23 AM | | procedure are in the | | | | PST | | results section. | + +--------+ + + + | POC GLUCOSE (NON | Routin | 05/19/2019 | | Results for this | | ORD) | e | 11:23 PM | | procedure are in the | | | | PST | | results section. | + +--------+ + + + | POC GLUCOSE (NON | Routin | 05/19/2019 | | Results for this | | ORD) | e | 10:21 PM | | procedure are in the | | | | PST | | results section. | + +--------+ + + + | POC GLUCOSE (NON | Routin | 05/19/2019 | | Results for this | | ORD) | e | 9:24 PM | | procedure are in the | | | | PST | | results section. | + +--------+ + + + | POC GLUCOSE (NON | Routin | 05/19/2019 | | Results for this | | ORD) | e | 9:22 PM | | procedure are in the | | | | PST | | results section. | + +--------+ + + + | POC GLUCOSE (NON | Routin | 05/19/2019 | | Results for this | | ORD) | e | 9:06 PM | | procedure are in the | | | | PST | | results section. | + +--------+ + + + | POC GLUCOSE (NON | Routin | 05/19/2019 | | Results for this | | ORD) | e | 8:50 PM | | procedure are in the | | | | PST | | results section. | + +--------+ + + + | POC GLUCOSE (NON | Routin | 05/19/2019 | | Results for this | | ORD) | e | 7:43 PM | | procedure are in the | | | | PST | | results section. | + +--------+ + + + | GLUCOSE, RANDOM | STAT | 05/19/2019 | | Results for this | | | | 5:51 PM | | procedure are in the | | | | PST | | results section. | + +--------+ + + + | POC GLUCOSE (NON | Routin | 05/19/2019 | | Results for this | | ORD) | e | 5:48 PM | | procedure are in the | | | | PST | | results section. | + +--------+ + + + | HEMOGLOBIN A1C | Routin | 05/19/2019 | | Results for this | | | e | 3:06 PM | | procedure are in the | | | | PST | | results section. | + +--------+ + + + | GLUCOSE, RANDOM | STAT | 05/19/2019 | | Results for this | | | | 3:06 PM | | procedure are in the | | | | PST | | results section. | + +--------+ + + + | POC GLUCOSE (NON | Routin | 05/19/2019 | | Results for this | | ORD) | e | 2:42 PM | | procedure are in the | | | | PST | | results section. | + +--------+ + + + | POC GLUCOSE (NON | Routin | 05/19/2019 | | Results for this | | ORD) | e | 9:02 AM | | procedure are in the | | | | PST | | results section. | + +--------+ + + + | BASIC METABOLIC | Routin | 05/19/2019 | | Results for this | | PANEL | e | 7:07 AM | | procedure are in the | | | | PST | | results section. | + +--------+ + + + | POC GLUCOSE (NON | Routin | 05/19/2019 | | Results for this | | ORD) | e | 6:45 AM | | procedure are in the | | | | PST | | results section. | + +--------+ + + + | POC GLUCOSE (NON | Routin | 05/19/2019 | | Results for this | | ORD) | e | 3:03 AM | | procedure are in the | | | | PST | | results section. | + +--------+ + + + | BASIC METABOLIC | STAT | 05/18/2019 | | Results for this | | PANEL | | 9:30 PM | | procedure are in the | | | | PST | | results section. | + +--------+ + + + | POC GLUCOSE (NON | Routin | 05/18/2019 | | Results for this | | ORD) | e | 9:21 PM | | procedure are in the | | | | PST | | results section. | + +--------+ + + + | POC GLUCOSE (NON | Routin | 05/18/2019 | | Results for this | | ORD) | e | 8:19 PM | | procedure are in the | | | | PST | | results section. | + +--------+ + + + | BASIC METABOLIC | STAT | 05/18/2019 | | Results for this | | PANEL | | 3:19 PM | | procedure are in the | | | | PST | | results section. | + +--------+ + + + | POC GLUCOSE (NON | Routin | 05/18/2019 | | Results for this | | ORD) | e | 3:16 PM | | procedure are in the | | | | PST | | results section. | + +--------+ + + + | POC GLUCOSE (NON | Routin | 05/18/2019 | | Results for this | | ORD) | e | 2:20 PM | | procedure are in the | | | | PST | | results section. | + +--------+ + + + | POC GLUCOSE (NON | Routin | 05/18/2019 | | Results for this | | ORD) | e | 12:22 PM | | procedure are in the | | | | PST | | results section. | + +--------+ + + + | POC GLUCOSE (NON | Routin | 05/18/2019 | | Results for this | | ORD) | e | 9:28 AM | | procedure are in the | | | | PST | | results section. | + +--------+ + + + | POC GLUCOSE (NON | Routin | 05/18/2019 | | Results for this | | ORD) | e | 7:31 AM | | procedure are in the | | | | PST | | results section. | + +--------+ + + + | POC GLUCOSE (NON | Routin | 05/18/2019 | | Results for this | | ORD) | e | 3:49 AM | | procedure are in the | | | | PST | | results section. | + +--------+ + + + | POC GLUCOSE (NON | Routin | 05/18/2019 | | Results for this | | ORD) | e | 1:36 AM | | procedure are in the | | | | PST | | results section. | + +--------+ + + + | HC BLOOD GASES ANY | Routin | 05/18/2019 | | Results for this | | COMBINATION | e | 12:01 AM | | procedure are in the | | | | PST | | results section. | + +--------+ + + + | HC DRUG TEST PRSMV | STAT | 05/17/2019 | | Results for this | | CHEM LYNN ROLDAN | | 10:58 PM | | procedure are in the | | | | PST | | results section. | + +--------+ + + + | KETONES,SERUM | STAT | 05/17/2019 | | Results for this | | | | 10:54 PM | | procedure are in the | | | | PST | | results section. | + +--------+ + + + | CBC WITH | STAT | 05/17/2019 | | Results for this | | DIFFERENTIAL | | 10:54 PM | | procedure are in the | | | | PST | | results section. | + +--------+ + + + | TSH | STAT | 05/17/2019 | | Results for this | | | | 10:54 PM | | procedure are in the | | | | PST | | results section. | + +--------+ + + + | ALCOHOL | STAT | 05/17/2019 | | Results for this | | | | 10:54 PM | | procedure are in the | | | | PST | | results section. | + +--------+ + + + | ACETAMINOPHEN LEVEL | STAT | 05/17/2019 | | Results for this | | | | 10:54 PM | | procedure are in the | | | | PST | | results section. | + +--------+ + + + | SALICYLATE LEVEL | STAT | 05/17/2019 | | Results for this | | | | 10:54 PM | | procedure are in the | | | | PST | | results section. | + +--------+ + + + | COMPREHENSIVE | STAT | 05/17/2019 | | Results for this | | METABOLIC PANEL | | 10:54 PM | | procedure are in the | | | | PST | | results section. | + +--------+ + + + | POC GLUCOSE (NON | Routin | 05/17/2019 | | Results for this | | ORD) | e | 10:53 PM | | procedure are in the | | | | PST | | results section. | + +--------+ + + + | ED INFORMATION | Routin | 05/17/2019 | | | | EXCHANGE | e | 9:51 PM | | | | | | PST | | | + +--------+ + + + +---+--------+ | | | | | Proced | | | ure | | | Note - | | | Siddhartha, | | | Lab In | | | | | | Hlseve | | | n - | | | | | | 2018 | | | 9:52 | | | PM PST | | [...] ON? | | | | | | 9 | | | 21:50? | | | DOYLE | | | , | | | BENJAM | | | IN | | | J?MRN: | | | | | | [id number] | | | [id number] | | | riteri | | | a Met | | | PRC | | | 2 in 2 | | | Care | | | | | | Guidel | | | inesSe | | | curity | | | and | | | Safety | | | No | | | recent | | | | | | Securi | | | ty | | | Events | | | | | | curren | | | tly on | | | | | | fileED | | | Care | | | [...] | | | al/Katelyn | | | gical9 | | | /30/19 | | | 12:00 | | | AM | | | [facility] | | | al | | | PATIEN | | | T HAS | | | AN APT | | | TO | | | ESTABL | | | JAZMIN | | | CARE | | | WITH | | | DR | | | AFSANEH | | | ON | | | 10/26/ | | | 197/8/ | | | 19 | | | 12:00 | | | AM | | | [facility] | | | alEOIP | | | A CASE | | | | | | MANAGE | | | MENT | | | REFERR | | | AL | | | MADE- | | | PATIEN | | | T HAS | | | EOCCO | | | AND NO | | | PCP. | | | 3/12/1 | | | 9 | | | 12:00 | | | AM | | | [facility] | | | al | | | Patien | | | t is | | | curren | | | tly | | | establ | | | ished | | | with | | | [facility] | [facility] | | | . If | | | patien | | | t is | | | seen | | | in the | | | ED | | | during | | | | | | busine | | | ss | | | hours. | | | | | | Please | | | | | | contac | | | t [facility] at [facility] | | | .Care | | | Recomm | | | endati | | | on:Thi | | | s | | | patien | | | t has | | | had 5 | | | or | | | more | | | Emerge | | | ncy | | | Depart | | | ment | | | visits | | | in | | | the | | | last | | | 12 | | | months | | | .? | | | Patien | | | t | | | requir | | | es | | | educat | | | ion on | | | the | | | scope | | | and | | | purpos | | | e of | | | the ED | | | as an | | | acute | | | care | | | provid | | | er not | | | a | | | Primar | | | y Care | | | | | | Provid | | | er and | | | | | | should | | | not | | | be | | | utiliz | | | ed for | | | | | | chroni | | | c | | | condit | | | ions.? | | | These | | | are | | | [...] | | | ing | | | care.P | | | rescri | | | ption | | | Drug | | | [...] | | | [facility] | | | al 6 0 | | | Total | | | 7 0 | | | Note: | | [...] ncy | | | | | | Psychi | | | atric | | | Evalua | | | tion | | | | | | Elevat | | | ed | | | Blood | | | Sugar | | | (Asymp | | | tomati | | | c) | | | Nov | | | 25, | | | 2019 | | | [facility] [place] | | | Emerge | | | ncy | | | Chief | | | Compla | | | int: | | | MEDICA | | | L | | | CLEARA | | | NCE | | | Nov | | | 15, | | | 2019 | | | [facility] [place] | | | Emerge | | | ncy | | | 1 | | | Type 1 | | | | | | diabet | | | es | | | mellit | | | us | | | with | | | hypogl | | | ycemia | | | | | | withou | | | t coma | | | 1 | | | Type 1 | | [...] | | | to | | | oth | | | drug/m | | | eds/bi | | | ol | | | subst | | | status | | | | | | Long | | | term | | | (curre | | | nt) | | | use of | | | | | | inhale | | | d | | | steroi | | | ds | | | Sep | | | 29, | | | 2019 | | | [facility] [place] | | | Emerge | | | ncy | | | Other | | | long | | | term | | | (curre | | | nt) | | | drug | | | therap | | | y | | | Allerg | | | y | | | status | | | to | | | oth | | | drug/m | | | eds/bi | | | ol | | | subst | | | status | | | 1 | | | Type 1 | | | | | | diabet | | | es | | | mellit | | | us | | | withou | | | t | | | compli | | | cation | | | s | | | Cough | | | | | | Allerg | | | y | | | status | | | to | | | narcot | | | ic | | | agent | | | status | | | | | | Bee | | | allerg | | | y | | | status | | | | | | Nicoti | | | ne | | | depend | | | ence, | | | unspec | | | ified, | | | | | | uncomp | | | licate | | | d Esau | | | 7, | | | 2019 | | | [facility] [place] | | | Emerge | | | ncy | | | Bee | | | allerg | | | y | | | status | | | | | | Allerg | | | y | | | status | | | to | | | oth | | | drug/m | | | eds/bi | | | ol | | | subst | | | status | | | 1 | | | Type 1 | | | | | | diabet | | | es | | | mellit | | | us | | | with | | | hyperg | | | lycemi | | | a | | | Nicoti | | | ne | | | depend | | | ence, | | | unspec | | | ified, | | | | | | uncomp | | | licate | | | d | | | Acquir | | | ed | | | absenc | | | e of | | | other | | | organs | | | | | | Bipola | | | r | | | disord | | | er, | | | unspec | | | ified | | | | | | Attent | | | ion-de | | | ficit | | | hypera | | | ctivit | | | y | | | disord | | | er, | | | unspec | | | ified | | | type | | | | | | Schizo | | | phreni | | | a, | | | unspec | | | ified | | | | | | Restle | | | ssness | | | and | | | agitat | | | ion | | | Other | | | long | | | term | | | (curre | | | nt) | | | drug | | | therap | | | y Mar | | | 11, | | | 2019 | | | [facility] [place] | | | Emerge | | | ncy | | | | | | Bipola | | | r | | | disord | | | er, | | | unspec | | | ified | | | | | | Other | | | insect | | | | | | allerg | | | y | | | status | | | 1 | | | Type 1 | | | | | | diabet | | | es | | | mellit | | | us | | | with | | | hyperg | | | lycemi | | | a | | | Nicoti | | | ne | | | depend | | | ence, | | | unspec | | | ified, | | | | | | uncomp | | | licate | | | d | | | Other | | | long | | | term | | | (curre | | | nt) | | | drug | | | therap | | | y | | | Attent | | | [...] | | | to | | | oth | | | drug/m | | | eds/bi | | | ol | | | subst | | | status | | | | | | Schizo | | | phreni | | | a, | | | unspec | | | ified | | | | | | Acquir | | | ed | | | absenc | | | e of | | | other | | | specif | | | ied | | | parts | | | of | | | digest | | | mercy | | | tract | | | | | | Dizzin | | | ess | | | and | | | giddin | | | ess | | | Dec | | | 20, | | | 2018 | | [facility] | | [...] | | | ified | | | 1 | | | Type 1 | | | | | | diabet | | | es | | | mellit | | | us | | | with | | | hyperg | | | lycemi | | | a | | | Nicoti | | | ne | | | depend | | | ence, | | | unspec | | | ified, | | | | | | uncomp | | | licate | | | d | | | Other | | | insect | | | | | | allerg | | | y | | | status | | | | | | Schizo | | | phreni | | | a, | | | unspec | | | ified | | | | | | Acquir | | | ed | | | absenc | | | e of | | | other | | | specif | | | ied | | | parts | | | of | | | digest | | | mercy | | | tract | | | | | | Long | | | term | | | (curre | | | nt) | | | use of | | | | | | inhale | | | d | | | steroi | | | ds | | | Attent | | | [...] | | | to | | | oth | | | drug/m | | | eds/bi | | | ol | | | subst | | | status | | | | | | Recent | | | | | | Inpati | | | ent | | | Visit | | | Summar | | | yNo | | | record | | | ed | | | inpati | | | ent | | | visits | | | . | | | Additi | | | onal | | | Care | | | TeamPr | | | ovider | | | | | | Specia | | | lty | | | Phone | | | Fax | | | Servic | | | e | | | Dates | | | Afsaneh, | | | | | | Lakhwinder, | | | MD | | | Supervisor [employer] | | | al | | | Medici | | | ne: | | | Pulmon | | | whitney | | | Diseas | | | e | | | Mar | | | 12, | | | 2019 - | | | | | | Curren | | | t | | | JT | | | R | | | FUSSEL | | | L | | | Primar | | | y Care | | | | | | Curren | | | t | | | LUKE | | | , CLEMENTE | | | E. | | | [...] | | | /notif | | | [id number] | | | [id number] | | | [phone] | | | [phone] | | | [phone] | | | [id number] | | | [phone] | | | PLEASE | | | [...] documented in this encounter Results POC Glucose (05/21/2019 5:36 PM PST) + + + + + + | Component | Value | Ref Range | Performed | Pathologist | | | | | At | Signature | + + + + + + | Glucose, | 104 (H)Comment: Testing | 65 - 99 mg/dL | [facility] | | | POC | performed at [facility] [place] | | [facility]ORATORY | | | | [address];[place] | | | | | | [id number] | | | | + + + + + + + + | Specimen | + + | | + + + + + + + | Performing | Address | City/State/Zipcode | Phone Number | | Organization | | | | + + + + + | [facility] | [address] | [place] [address] | [phone] | + + + + + POC Glucose (05/21/2019 5:09 PM PST) + + + + + + | Component | Value | Ref Range | Performed | Pathologist | | | | | At | Signature | + + + + + + | Glucose, | 66Comment: Testing | 65 - 99 mg/dL | [facility] | | | POC | performed at [facility] [place] | | LABORATORY | | | | [address];[place], [place] | | | | | | [address] | | | | + + + + + + + + | Specimen | + + | | + + + + + + + | Performing | Address | City/State/Zipcode | Phone Number | | Organization | | | | + + + + + | [facility] | [address] | [place] [address] | [phone] | + + + + + POC Glucose (05/21/2019 4:51 PM PST) + + + + + + | Component | Value | Ref Range | Performed | Pathologist | | | | | At | Signature | + + + + + + | Glucose, | 66Comment: Testing | 65 - 99 mg/dL | [place] | | | POC | performed at [facility] [place] [facility] [place] | | LABORATORY | | | | [address];[place] | | | | | | [address] | | | | + + + + + + + + | Specimen | + + | | + + + + + + + | Performing | Address | City/State/Zipcode | Phone Number | | Organization | | | | + + + + + | [facility] | [address] | [place] [address] | [phone] | + + + + + POC Glucose (05/21/2019 3:10 PM PST) + + + + + + | Component | Value | Ref Range | Performed | Pathologist | | | | | At | Signature | + + + + + + | Glucose, | 88Comment: Testing | 65 - 99 mg/dL | [facility] | | | POC | performed at [facility] [place] [facility] [place] | | LABORATORY | | | | [address];[place] | | | | | | [address] | | | | + + + + + + + + | Specimen | + + | | + + + + + + + | Performing | Address | City/State/Zipcode | Phone Number | | Organization | | | | + + + + + | [facility] | [address] | [place] [address] | [phone] | + + + + + POC Glucose (05/21/2019 2:48 PM PST) + + + + + + | Component | Value | Ref Range | Performed | Pathologist | | | | | At | Signature | + + + + + + | Glucose, | 53 (L)Comment: Testing | 65 - 99 mg/dL | [facility] | | | POC | performed at [facility] [place] | | LABORATORY | | | | [address];[place], [place] | | | | | | [address] | | | | + + + + + + + + | Specimen | + + | | + + + + + + + | Performing | Address | City/State/Zipcode | Phone Number | | Organization | | | | + + + + + | [facility] | [address] | [place] [address] | [phone] | + + + + + POC Glucose (05/21/2019 11:45 AM PST) + + + + + + | Component | Value | Ref Range | Performed | Pathologist | | | | | At | Signature | + + + + + + | Glucose, | 181 (H)Comment: Testing | 65 - 99 mg/dL | [facility] | | | POC | performed at [facility] [place] | | LABORATORY | | | | [address];[place] | | | | | | [address] | | | | + + + + + + + + | Specimen | + + | | + + + + + + + | Performing | Address | City/State/Zipcode | Phone Number | | Organization | | | | + + + + + | [facility] | [address] | [place] [address] | [phone] | + + + + + Basic Metabolic Panel (05/21/2019 10:59 AM PST) + + + + + + | Component | Value | Ref Range | Performed | Pathologist | | | | | At | Signature | + + + + + + | Na | 137 | 135 - 145 | [facility] | | | | | mmol/L | LABORATORY | | + + + + + + | K | 4.1 | 3.5 - 4.9 | [facility] | | | | | mmol/L | LABORATORY | | + + + + + + | Cl | 105 | 99 - 109 mmol/L | [facility] | | | | | | LABORATORY | | + + + + + + | CO2 | 27 | 23 - 32 mmol/L | [facility] | | | | | | LABORATORY | | + + + + + + | Anion Gap | 9 | 5 - 20 mmol/L | [facility] | | | | | | LABORATORY | | + + + + + + | Glucose | 204 (H) | 65 - 99 mg/dL | [facility] | | | | | | LABORATORY | | + + + + + + | BUN | 21 | 8 - 25 mg/dL | [facility] | | | | | | LABORATORY | | + + + + + + | Creatinine | 1.1 | 0.70 - 1.30 | [facility] | | | | | mg/dL | LABORATORY | | + + + + + + | BUN/Creatin | 19 | | [facility] | | | ine Ratio | | | LABORATORY | | + + + + + + | Calcium | 8.8 | 8.5 - 10.5 | [facility] | | | | | mg/dL | LABORATORY | | + + + + + + | Estimated | >60Comment: GFR <60: | >60 | [facility] | | | GFR | CHRONIC KIDNEY [...] | | | | | performed at [facility], [address] | | | | | | [facility], | | | | | | [place] [address] | | | | + + + + + + + + | Specimen | + + | Blood | + + + + + + + | Performing | Address | City/State/Zipcode | Phone Number | | Organization | | | | + + + + + | [facility] | [address] | [place] [address] | [phone] | + + + + + POC Glucose (05/21/2019 8:28 AM PST) + + + + + + | Component | Value | Ref Range | Performed | Pathologist | | | | | At | Signature | + + + + + + | Glucose, | 250 (H)Comment: Testing | 65 - 99 mg/dL | [facility] | | | POC | performed at [facility] [place] | | LABORATORY | | | | [address];[place] | | | | | | [address] | | | | + + + + + + + + | Specimen | + + | | + + + + + + + | Performing | Address | City/State/Zipcode | Phone Number | | Organization | | | | + + + + + | [facility] | [address] | [place] [address] | [phone] | + + + + + POC Glucose (05/20/2019 9:31 PM PST) + + + + + + | Component | Value | Ref Range | Performed | Pathologist | | | | | At | Signature | + + + + + + | Glucose, | 111 (H)Comment: Testing | 65 - 99 mg/dL | [facility] | | | POC | performed at [facility] [place] | | LABORATORY | | | | [address];[place], [place] | | | | | | [address] | | | | + + + + + + + + | Specimen | + + | | + + + + + + + | Performing | Address | City/State/Zipcode | Phone Number | | Organization | | | | + + + + + | [facility] | [address] | [place] [address] | [phone] | + + + + + POC Glucose (05/20/2019 6:06 PM PST) + + + + + + | Component | Value | Ref Range | Performed | Pathologist | | | | | At | Signature | + + + + + + | Glucose, | 338 (H)Comment: Testing | 65 - 99 mg/dL | [facility] | | | POC | performed at [facility] [place] | | LABORATORY | | | | [address];[place] | | | | | | [address] | | | | + + + + + + + + | Specimen | + + | | + + + + + + + | Performing | Address | City/State/Zipcode | Phone Number | | Organization | | | | + + + + + | [facility] | [address] | [place] [address] | [phone] | + + + + + POC Glucose (05/20/2019 4:35 PM PST) + + + + + + | Component | Value | Ref Range | Performed | Pathologist | | | | | At | Signature | + + + + + + | Glucose, | >400 (H)Comment: Testing | 65 - 99 mg/dL | [facility] | | | POC | performed at [facility] [place] | | LABORATORY | | | | [address];[place], [place] | | | | | | [address] | | | | + + + + + + + + | Specimen | + + | | + + + + + + + | Performing | Address | City/State/Zipcode | Phone Number | | Organization | | | | + + + + + | [facility] | [address] | [place] [address] | [phone] | + + + + + Potassium (05/20/2019 3:58 PM PST) + + + + + + | Component | Value | Ref Range | Performed | Pathologist | | | | | At | Signature | + + + + + + | K | 4.9Comment: Testing | 3.5 - 4.9 | [facility] | | | | performed at [facility] | mmol/L | LABORATORY | | | | [address] [facility];[place], [place] | | | | | | [address] | | | | + + + + + + + + | Specimen | + + | Blood | + + + + + + + | Performing | Address | City/State/Zipcode | Phone Number | | Organization | | | | + + + + + | [facility] | [address] | [place] [address] | [phone] | + + + + + POC Glucose (05/20/2019 11:37 AM PST) + + + + + + | Component | Value | Ref Range | Performed | Pathologist | | | | | At | Signature | + + + + + + | Glucose, | >400 (H)Comment: Testing | 65 - 99 mg/dL | [facility] | | | POC | performed at [facility] [place] | | LABORATORY | | | | [address];[place] | | | | | | [address] | | | | + + + + + + + + | Specimen | + + | | + + + + + + + | Performing | Address | City/State/Zipcode | Phone Number | | Organization | | | | + + + + + | [facility] | [address] | [place] [address] | [phone] | + + + + + Basic Metabolic Panel (05/20/2019 10:07 AM PST) + + + + + + | Component | Value | Ref Range | Performed | Pathologist | | | | | At | Signature | + + + + + + | Na | 134 (L) | 135 - 145 | [facility] | | | | | mmol/L | LABORATORY | | + + + + + + | K | 5.4 (H) | 3.5 - 4.9 | [facility] | | | | | mmol/L | LABORATORY | | + + + + + + | Cl | 104 | 99 - 109 mmol/L | [facility] | | | | | | LABORATORY | | + + + + + + | CO2 | 23 | 23 - 32 mmol/L | [facility] | | | | | | LABORATORY | | + + + + + + | Anion Gap | 12 | 5 - 20 mmol/L | [facility] | | | | | | LABORATORY | | + + + + + + | Glucose | 402 (H) | 65 - 99 mg/dL | [facility] | | | | | | LABORATORY | | + + + + + + | BUN | 21 | 8 - 25 mg/dL | [facility] | | | | | | LABORATORY | | + + + + + + | Creatinine | 1.0 | 0.70 - 1.30 | [facility] | | | | | mg/dL | LABORATORY | | + + + + + + | BUN/Creatin | 21 | | [facility] | | | ine Ratio | | | LABORATORY | | + + + + + + | Calcium | 7.9 (L) | 8.5 - 10.5 | [facility] | [...] | | | | | performed at [facility], [address] | | | | | | [facility], | | | | | | [place] [address] | | | | + + + + + + + + | Specimen | + + | Blood | + + + + + + + | Performing | Address | City/State/Zipcode | Phone Number | | Organization | | | | + + + + + | [facility] | [address] | [place] [address] | [phone] | + + + + + ECG 12 lead (05/20/2019 9:26 AM PST) + + + + + + | Component | Value | Ref Range | Performed | Pathologist | | | | | At | Signature | + + + + + + | VENTRICULAR | 102 | BPM | [facility] | | | RATE EKG | | | | | + + + + + + | ATRIAL RATE | 102 | BPM | [facility] | | + + + + + + | P-R | 144 | ms | [facility] | | | INTERVAL | | | | | + + + + + + | QRS | 74 | ms | [facility] | | | DURATION | | | | | + + + + + + | Q-T | 328 | ms | [facility] | | | INTERVAL | | | | | + + + + + + | Q-T | 427 | ms | [facility] | | | INTERVAL | | | | | | (CORRECTED) | | | | | + + + + + + | P WAVE AXIS | 61 | degrees | [facility] | | + + + + + + | QRS AXIS | 83 | degrees | [facility] | | + + + + + + | T AXIS | 67 | degrees | [facility] | | + + + + + + | INTERPRETAT | Sinus tachycardiaDiffuse | | [facility] | | | ION TEXT | ST elevation, | | | | | | consider early | | | | | | repolarization, | | | | | | pericarditis, or | | | | | | injuryWhen compared with | | | | | | ECG of 07-FEB-2016 | | | | | | 06:19,Nonspecific T wave | | | | | | abnormality no longer | | | | | | evident in Inferior | | | | | | leadsT wave amplitude | | | | | | has increased in | | | | | | Anterior leadsConfirmed | | | | | | by RUT RIGGS MD | | | | | | (137) on 05/21/2019 | | | | | | 7:05:14 PM | | | | + + [...] | + +---------+ + + POC Glucose (05/20/2019 4:24 AM PST) + + + + + + | Component | Value | Ref Range | Performed | Pathologist | | | | | At | Signature | + + + + + + | Glucose, | 171 (H)Comment: Testing | 65 - 99 mg/dL | [facility] | | | POC | performed at [facility] [place] | | LABORATORY | | | | [address];[place] | | | | | | [address] | | | | + + + + + + + + | Specimen | + + | | + + + + + + + | Performing | Address | City/State/Zipcode | Phone Number | | Organization | | | | + + + + + | [facility] | [address] | [place] [address] | [phone] | + + + + + POC Glucose (05/20/2019 3:23 AM PST) + + + + + + | Component | Value | Ref Range | Performed | Pathologist | | | | | At | Signature | + + + + + + | Glucose, | 232 (H)Comment: Testing | 65 - 99 mg/dL | [facility] | | | POC | performed at [facility] [place] | | LABORATORY | | | | [address];[place], [place] | | | | | | [address] | | | | + + + + + + + + | Specimen | + + | | + + + + + + + | Performing | Address | City/State/Zipcode | Phone Number | | Organization | | | | + + + + + | [facility] | [address] | [place] [address] | [phone] | + + + + + POC Glucose (05/20/2019 2:21 AM PST) + + + + + + | Component | Value | Ref Range | Performed | Pathologist | | | | | At | Signature | + + + + + + | Glucose, | 244 (H)Comment: Testing | 65 - 99 mg/dL | [facility] | | | POC | performed at [facility] | | LABORATORY | | | | [address];[place], [place] | | | | | | [address] | | | | + + + + + + + + | Specimen | + + | | + + + + + + + | Performing | Address | City/State/Zipcode | Phone Number | | Organization | | | | + + + + + | [facility] | [address] | [place] [address] | [phone] | + + + + + POC Glucose (05/20/2019 1:22 AM PST) + + + + + + | Component | Value | Ref Range | Performed | Pathologist | | | | | At | Signature | + + + + + + | Glucose, | 248 (H)Comment: Testing | 65 - 99 mg/dL | [facility] | | | POC | performed at [facility] | | LABORATORY | | | | [address];[place], [place] | | | | | | [address] | | | | + + + + + + + + | Specimen | + + | | + + + + + + + | Performing | Address | City/State/Zipcode | Phone Number | | Organization | | | | + + + + + | [facility] | [address] | [place] [address] | [phone] | + + + + + POC Glucose (05/20/2019 12:23 AM PST) + + + + + + | Component | Value | Ref Range | Performed | Pathologist | | | | | At | Signature | + + + + + + | Glucose, | 186 (H)Comment: Testing | 65 - 99 mg/dL | [facility] | | | POC | performed at [facility] | | LABORATORY | | | | [address];[place] | | | | | | [address] | | | | + + + + + + + + | Specimen | + + | | + + + + + + + | Performing | Address | City/State/Zipcode | Phone Number | | Organization | | | | + + + + + | [facility] | [address] | [place] [address] | [phone] | + + + + + POC Glucose (05/19/2019 11:23 PM PST) + + + + + + | Component | Value | Ref Range | Performed | Pathologist | | | | | At | Signature | + + + + + + | Glucose, | 147 (H)Comment: Testing | 65 - 99 mg/dL | [facility] | | | POC | performed at [facility] [place] | | LABORATORY | | | | [address];[place], [place] | | | | | | [address] | | | | + + + + + + + + | Specimen | + + | | + + + + + + + | Performing | Address | City/State/Zipcode | Phone Number | | Organization | | | | + + + + + | [facility] | [address] | [place] [address] | [phone] | + + + + + POC Glucose (05/19/2019 10:21 PM PST) + + + + + + | Component | Value | Ref Range | Performed | Pathologist | | | | | At | Signature | + + + + + + | Glucose, | 138 (H)Comment: Testing | 65 - 99 mg/dL | [facility] | | | POC | performed at [facility] [place] | | LABORATORY | | | | [address];[place] | | | | | | [address] | | | | + + + + + + + + | Specimen | + + | | + + + + + + + | Performing | Address | City/State/Zipcode | Phone Number | | Organization | | | | + + + + + | [facility] | [address] | [place] [address] | [phone] | + + + + + POC Glucose (05/19/2019 9:24 PM PST) + + + + + + | Component | Value | Ref Range | Performed | Pathologist | | | | | At | Signature | + + + + + + | Glucose, | 268 (H)Comment: Testing | 65 - 99 mg/dL | [facility] | | | POC | performed at [facility] [place] | | LABORATORY | | | | [address];[place] | | | | | | [address] | | | | + + + + + + + + | Specimen | + + | | + + + + + + + | Performing | Address | City/State/Zipcode | Phone Number | | Organization | | | | + + + + + | [facility] | [address] | [place] [address] | [phone] | + + + + + POC Glucose (05/19/2019 9:22 PM PST) + + + + + + | Component | Value | Ref Range | Performed | Pathologist | | | | | At | Signature | + + + + + + | Glucose, | 378 (H)Comment: Testing | 65 - 99 mg/dL | [facility] | | | POC | performed at [facility] | | LABORATORY | | | | [address];[place] | | | | | | [address] | | | | + + + + + + + + | Specimen | + + | | + + + + + + + | Performing | Address | City/State/Zipcode | Phone Number | | Organization | | | | + + + + + | [facility] | [address] | [place] [address] | [phone] | + + + + + POC Glucose (05/19/2019 9:06 PM PST) + + + + + + | Component | Value | Ref Range | Performed | Pathologist | | | | | At | Signature | + + + + + + | Glucose, | 54 (L)Comment: Testing | 65 - 99 mg/dL | [facility] | | | POC | performed at [facility] | | LABORATORY | | | | [address];[place], [place] | | | | | | [address] | | | | + + + + + + + + | Specimen | + + | | + + + + + + + | Performing | Address | City/State/Zipcode | Phone Number | | Organization | | | | + + + + + | [facility] | [address] | [place] [address] | [phone] | + + + + + POC Glucose (05/19/2019 8:50 PM PST) + + + + + + | Component | Value | Ref Range | Performed | Pathologist | | | | | At | Signature | + + + + + + | Glucose, | 58 (L)Comment: Testing | 65 - 99 mg/dL | [facility] | | | POC | performed at [facility] | | LABORATORY | | | | [address];[place] | | | | | | [address] | | | | + + + + + + + + | Specimen | + + | | + + + + + + + | Performing | Address | City/State/Zipcode | Phone Number | | Organization | | | | + + + + + | [facility] | [address] | [place] [address] | [phone] | + + + + + POC Glucose (05/19/2019 7:43 PM PST) + + + + + + | Component | Value | Ref Range | Performed | Pathologist | | | | | At | Signature | + + + + + + | Glucose, | 322 (H)Comment: Testing | 65 - 99 mg/dL | [facility] | | | POC | performed at [facility] | | LABORATORY | | | | [address];[place] | | | | | | [address] | | | | + + + + + + + + | Specimen | + + | | + + + + + + + | Performing | Address | City/State/Zipcode | Phone Number | | Organization | | | | + + + + + | [facility] | [address] | [place] [address] | [phone] | + + + + + Glucose, Random (05/19/2019 5:51 PM PST) + + + + + + | Component | Value | Ref Range | Performed | Pathologist | | | | | At | Signature | + + + + + + | Glucose | 421 (H)Comment: Testing | 65 - 99 mg/dL | [facility] | | | | performed at [facility] | | LABORATORY | | | | [address];[place] | | | | | | [address] | | | | + + + + + + + + | Specimen | + + | Blood | + + + + + + + | Performing | Address | City/State/Zipcode | Phone Number | | Organization | | | | + + + + + | [facility] | [address] | [place] [address] | [phone] | + + + + + POC Glucose (05/19/2019 5:48 PM PST) + + + + + + | Component | Value | Ref Range | Performed | Pathologist | | | | | At | Signature | + + + + + + | Glucose, | >400 (H)Comment: Testing | 65 - 99 mg/dL | [facility] | | | POC | performed at [facility];[address] | | LABORATORY | | | | [address];[place], [place] | | | | | | [address] | | | | + + + + + + + + | Specimen | + + | | + + + + + + + | Performing | Address | City/State/Zipcode | Phone Number | | Organization | | | | + + + + + | [facility] | [address] | [place] [address] | [phone] | + + + + + Hemoglobin A1C (05/19/2019 3:06 PM PST) + + + + + + | Component | Value | Ref Range | Performed | Pathologist | | | | | At | Signature | + + + + + + | Hemoglobin | 10.2 (H)Comment: HbA1c | 4.0 - 6.0 % | [facility] | | | A1c | method is certified by | | LABORATORY | | | | [employer] and traceable to | | | | | | the DCCT reference | | | | | | method.ADA guidelines | | | | | | indicate: | | | | | | Prediabetes: 5.7 - 6.4 | | | | | | Diabetes: >6.4 | | | | | | Glycemic control for | | | | | | adults with diabetes: | | | | | | <7.0Effective 07/08/2018: | | | | | | Note New Method | | | | + + + + + + | Estimated | 246 (H)Comment: | <154 mg/dL | [facility] | | | Average | Estimated Average | | LABORATORY | | | Glucose | Glucose calculated from | | | | | | hemoglobin A1c by use of | | | | | | the ADArecommended | | | | | | formula.Testing | | | | | | performed at [facility], [address] | | | | | [facility], | | | | | | [place] [address] | | | | + + + + + + + + | Specimen | + + | Blood | + + + + + + + | Performing | Address | City/State/Zipcode | Phone Number | | Organization | | | | + + + + + | [facility] | [address] | [place] [address] | [phone] | + + + + + Glucose, Random (05/19/2019 3:06 PM PST) + + + + + + | Component | Value | Ref Range | Performed | Pathologist | | | | | At | Signature | + + + + + + | Glucose | 520 ()Comment: CALLED | 65 - 99 mg/dL | [facility] | | | | RESULTSREAD BACK RESULTS | | LABORATORY | | | | VERIFIEDACCRISTOBAL/CONSUELO R | | | | | | AT [address] | | | | | | performed at [facility];[address] | | | | | | [address];[place] | | | | | | [address] | | | | + + + + + + + + | Specimen | + + | Blood | + + + + + + + | Performing | Address | City/State/Zipcode | Phone Number | | Organization | | | | + + + + + | [facility] | [address] | [place] [address] | [phone] | + + + + + POC Glucose (05/19/2019 2:42 PM PST) + + + + + + | Component | Value | Ref Range | Performed | Pathologist | | | | | At | Signature | + + + + + + | Glucose, | >400 (H)Comment: Testing | 65 - 99 mg/dL | [facility] | | | POC | performed at [facility] | | LABORATORY | | | | [address];[place] | | | | | | [address] | | | | + + + + + + + + | Specimen | + + | | + + + + + + + | Performing | Address | City/State/Zipcode | Phone Number | | Organization | | | | + + + + + | [facility] | [address] | [place] [address] | [phone] | + + + + + POC Glucose (05/19/2019 9:02 AM PST) + + + + + + | Component | Value | Ref Range | Performed | Pathologist | | | | | At | Signature | + + + + + + | Glucose, | 318 (H)Comment: Testing | 65 - 99 mg/dL | [facility] | | | POC | performed at [facility];[address] | | LABORATORY | | | | [address];[place], [place] | | | | | | [address] | | | | + + + + + + + + | Specimen | + + | | + + + + + + + | Performing | Address | City/State/Zipcode | Phone Number | | Organization | | | | + + + + + | [facility] | [address] | [place] [address] | [phone] | + + + + + Basic Metabolic Panel (05/19/2019 7:07 AM PST) + + + + + + | Component | Value | Ref Range | Performed | Pathologist | | | | | At | Signature | + + + + + + | Na | 136 | 135 - 145 | [facility] | | | | | mmol/L | LABORATORY | | + + + + + + | K | 4.4 | 3.5 - 4.9 | [facility] | | | | | mmol/L | LABORATORY | | + + + + + + | Cl | 101 | 99 - 109 mmol/L | [facility] | | | | | | LABORATORY | | + + + + + + | CO2 | 27 | 23 - 32 mmol/L | [facility] | | | | | | LABORATORY | | + + + + + + | Anion Gap | 12 | 5 - 20 mmol/L | [facility] | | | | | | LABORATORY | | + + + + + + | Glucose | 315 (H) | 65 - 99 mg/dL | [facility] | | | | | | LABORATORY | | + + + + + + | BUN | 10 | 8 - 25 mg/dL | [facility] | | | | | | LABORATORY | | + + + + + + | Creatinine | 0.99 | 0.70 - 1.30 | [facility] | | | | | mg/dL | LABORATORY | | + + + + + + | BUN/Creatin | 10 | | [facility] | | | ine Ratio | | | LABORATORY | | + + + + + + | Calcium | 9.0 | 8.5 - 10.5 | [facility] | | | | | mg/dL | LABORATORY | | + + + + + + | Estimated | >60Comment: GFR <60: | >60 | [facility] | | | GFR | CHRONIC KIDNEY [...] | | | | | | [facility]D [facility] traceable | | | | | | equation.Testing | | | | | | [place] [facility] [place] | | | | | | [facility];[place], [place] | | | | | | [address] | | | | + + + + + + + + | Specimen | + + | Blood | + + + + + + + | Performing | Address | City/State/Zipcode | Phone Number | | Organization | | | | + + + + + | [facility] | [address] | [place] [address] | [phone] | + + + + + POC Glucose (05/19/2019 6:45 AM PST) + + + + + + | Component | Value | Ref Range | Performed | Pathologist | | | | | At | Signature | + + + + + + | Glucose, | 299 (H)Comment: Testing | 65 - 99 mg/dL | [facility] | | | POC | [place] [facility] [place] | | LAB[place]ATORY | | | | [address];[place] | | | | | | [address] | | | | + + + + + + + + | Specimen | + + | | + + + + + + + | Performing | Address | City/State/Zipcode | Phone Number | | Organization | | | | + + + + + | [facility] | [address] | [place] [address] | [phone] | + + + + + POC Glucose (05/19/2019 3:03 AM PST) + + + + + + | Component | Value | Ref Range | Performed | Pathologist | | | | | At | Signature | + + + + + + | Glucose, | 352 (H)Comment: Testing | 65 - 99 mg/dL | [facility] | | | POC | performed at [facility] [place] [place] | | LABORATORY | | | | [address];[place], [place] | | | | | | [address] | | | | + + + + + + + + | Specimen | + + | | + + + + + + + | Performing | Address | City/State/Zipcode | Phone Number | | Organization | | | | + + + + + | [facility] | [address] | [place] [address] | [phone] | + + + + + Basic Metabolic Panel (05/18/2019 9:30 PM PST) + + + + + + | Component | Value | Ref Range | Performed | Pathologist | | | | | At | Signature | + + + + + + | Na | 136 | 135 - 145 | [facility] | | | | | mmol/L | LABORATORY | | + + + + + + | K | 3.9 | 3.5 - 4.9 | [facility] | | | | | mmol/L | LABORATORY | | + + + + + + | Cl | 105 | 99 - 109 mmol/L | [facility] | | | | | | LABORATORY | | + + + + + + | CO2 | 24 | 23 - 32 mmol/L | [facility] | | | | | | LABORATORY | | + + + + + + | Anion Gap | 11 | 5 - 20 mmol/L | [facility] | | | | | | LABORATORY | | + + + + + + | Glucose | 372 (H) | 65 - 99 mg/dL | [facility] | | | | | | LABORATORY | | + + + + + + | BUN | 13 | 8 - 25 mg/dL | [facility] | | | | | | LABORATORY | | + + + + + + | Creatinine | 0.80 | 0.70 - 1.30 | [facility] | | | | | mg/dL | LABORATORY | | + + + + + + | BUN/Creatin | 16 | | [facility] | | | ine Ratio | | | LABORATORY | | + + + + + + | Calcium | 7.9 (L) | 8.5 - 10.5 | [facility] | [...] | | | | | performed at [facility] [place] | | | | | | [address];[place] | | | | | | [address] | | | | + + + + + + + + | Specimen | + + | Blood | + + + + + + + | Performing | Address | City/State/Zipcode | Phone Number | | Organization | | | | + + + + + | [facility] | [address] | [place] [address] | [phone] | + + + + + POC Glucose (05/18/2019 9:21 PM PST) + + + + + + | Component | Value | Ref Range | Performed | Pathologist | | | | | At | Signature | + + + + + + | Glucose, | >400 (H)Comment: Testing | 65 - 99 mg/dL | [facility] | | | POC | performed at [facility] [place] | | LABORATORY | | | | [address];[place], [place] | | | | | | [address] | | | | + + + + + + + + | Specimen | + + | | + + + + + + + | Performing | Address | City/State/Zipcode | Phone Number | | Organization | | | | + + + + + | [facility] | [address] | [place] [address] | [phone] | + + + + + POC Glucose (05/18/2019 8:19 PM PST) + + + + + + | Component | Value | Ref Range | Performed | Pathologist | | | | | At | Signature | + + + + + + | Glucose, | >400 (H)Comment: Testing | 65 - 99 mg/dL | [facility] | | | POC | performed at [facility] [place] [place] | | LABORATORY | | | | [address];[place] | | | | | | [address] | | | | + + + + + + + + | Specimen | + + | | + + + + + + + | Performing | Address | City/State/Zipcode | Phone Number | | Organization | | | | + + + + + | [facility] | [address] | [place] [address] | [phone] | + + + + + Basic Metabolic Panel (05/18/2019 3:19 PM PST) + + + + + + | Component | Value | Ref Range | Performed | Pathologist | | | | | At | Signature | + + + + + + | Na | 137 | 135 - 145 | [facility] | | | | | mmol/L | LABORATORY | | + + + + + + | K | 4.1 | 3.5 - 4.9 | [facility] | | | | | mmol/L | LABORATORY | | + + + + + + | Cl | 105 | 99 - 109 mmol/L | [facility] | | | | | | LABORATORY | | + + + + + + | CO2 | 26 | 23 - 32 mmol/L | [facility] | | | | | | LABORATORY | | + + + + + + | Anion Gap | 10 | 5 - 20 mmol/L | [facility] | | | | | | LABORATORY | | + + + + + + | Glucose | 415 (H) | 65 - 99 mg/dL | [facility] | | | | | | LABORATORY | | + + + + + + | BUN | 10 | 8 - 25 mg/dL | [facility] | | | | | | LABORATORY | | + + + + + + | Creatinine | 0.97 | 0.70 - 1.30 | [facility] | | | | | mg/dL | LABORATORY | | + + + + + + | BUN/Creatin | 10 | | [facility] | | | ine Ratio | | | LABORATORY | | + + + + + + | Calcium | 8.7 | 8.5 - 10.5 | [facility] | | | | | mg/dL | LABORATORY | | + + + + + + | Estimated | >60Comment: GFR <60: | >60 | [facility] | | | GFR | CHRONIC KIDNEY [...] | | | | | performed at [facility] [place];[address] | | | | | | [facility];[place], [place] | | | | | | [address] | | | | + + + + + + + + | Specimen | + + | Blood | + + + + + + + | Performing | Address | City/State/Zipcode | Phone Number | | Organization | | | | + + + + + | [facility] | [address] | [place] [address] | [phone] | + + + + + POC Glucose (05/18/2019 3:16 PM PST) + + + + + + | Component | Value | Ref Range | Performed | Pathologist | | | | | At | Signature | + + + + + + | Glucose, | 400 (H)Comment: Testing | 65 - 99 mg/dL | [facility] | | | POC | performed at [facility] [place];[address] | | LABORATORY | | | | [address];[place] | | | | | | [address] | | | | + + + + + + + + | Specimen | + + | | + + + + + + + | Performing | Address | City/State/Zipcode | Phone Number | | Organization | | | | + + + + + | [facility] | [address] | [place] [address] | [phone] | + + + + + POC Glucose (05/18/2019 2:20 PM PST) + + + + + + | Component | Value | Ref Range | Performed | Pathologist | | | | | At | Signature | + + + + + + | Glucose, | >400 (H)Comment: Testing | 65 - 99 mg/dL | [facility] | | | POC | performed at [facility] [place] | | LABORATORY | | | | [address];[place] | | | | | | [address] | | | | + + + + + + + + | Specimen | + + | | + + + + + + + | Performing | Address | City/State/Zipcode | Phone Number | | Organization | | | | + + + + + | [facility] | [address] | [place] [address] | [phone] | + + + + + POC Glucose (05/18/2019 12:22 PM PST) + + + + + + | Component | Value | Ref Range | Performed | Pathologist | | | | | At | Signature | + + + + + + | Glucose, | >400 (H)Comment: Testing | 65 - 99 mg/dL | [facility] | | | POC | performed at [facility] [place];[address] | | LABORATORY | | | | [address];[place] | | | | | | [address] | | | | + + + + + + + + | Specimen | + + | | + + + + + + + | Performing | Address | City/State/Zipcode | Phone Number | | Organization | | | | + + + + + | [facility] | [address] | [place] [address] | [phone] | + + + + + POC Glucose (05/18/2019 9:28 AM PST) + + + + + + | Component | Value | Ref Range | Performed | Pathologist | | | | | At | Signature | + + + + + + | Glucose, | 111 (H)Comment: Testing | 65 - 99 mg/dL | [facility] | | | POC | performed at [facility] [place];[address] | | LABORATORY | | | | [address];[place], [place] | | | | | | [address] | | | | + + + + + + + + | Specimen | + + | | + + + + + + + | Performing | Address | City/State/Zipcode | Phone Number | | Organization | | | | + + + + + | [facility] | [address] | [place] [address] | [phone] | + + + + + POC Glucose (05/18/2019 7:31 AM PST) + + + + + + | Component | Value | Ref Range | Performed | Pathologist | | | | | At | Signature | + + + + + + | Glucose, | 137 (H)Comment: Testing | 65 - 99 mg/dL | [facility] | | | POC | performed at [facility] [place] | | LABORATORY | | | | [address];[place] | | | | | | [address] | | | | + + + + + + + + | Specimen | + + | | + + + + + + + | Performing | Address | City/State/Zipcode | Phone Number | | Organization | | | | + + + + + | [facility] | [address] [facility] | [place] [address] | [phone] | + + + + + POC Glucose (05/18/2019 3:49 AM PST) + + + + + + | Component | Value | Ref Range | Performed | Pathologist | | | | | At | Signature | + + + + + + | Glucose, | 172 (H)Comment: Testing | 65 - 99 mg/dL | [facility] | | | POC | performed at [facility] [place];[address] | | LABORATORY | | | | [address];[place] | | | | | | [address] | | | | + + + + + + + + | Specimen | + + | | + + + + + + + | Performing | Address | City/State/Zipcode | Phone Number | | Organization | | | | + + + + + | [facility] | [address] | [place] [address] | [phone] | + + + + + POC Glucose (05/18/2019 1:36 AM PST) + + + + + + | Component | Value | Ref Range | Performed | Pathologist | | | | | At | Signature | + + + + + + | Glucose, | 319 (H)Comment: Testing | 65 - 99 mg/dL | [facility] | | | POC | performed at [facility] [place];[address] | | LABORATORY | | | | [address];[place] | | | | | | [address] | | | | + + + + + + + + | Specimen | + + | | + + + + + + + | Performing | Address | City/State/Zipcode | Phone Number | | Organization | | | | + + + + + | [facility] | [address] | [place] [address] | [phone] | + + + + + Blood gas, Venous (05/18/2019 12:01 AM PST) + + + + + + | Component | Value | Ref Range | Performed | Pathologist | | | | | At | Signature | + + + + + + | pH, Venous, | 7.335 | 7.310 - 7.410 | [facility] | | | POC | | | LABORATORY | | + + + + + + | PCO2, | 54 (H) | 41 - 51 mmHG | [facility] | | | Venous, POC | | | LABORATORY | | + + + + + + | pO2, Venous | 19 (L) | 30 - 40 mmHG | [facility] | | | | | | LABORATORY | | + + + + + + | HCO3, | 29 (H) | 23 - 28 mmol/L | [facility] | | | Venous | | | LABORATORY | | + + + + + + | TCO2, POC | 30 (H) | 24 - 29 mEq/L | [facility] | | | | | | LABORATORY | | + + + + + + | Base | 3 | 0 - 3 mEq/L | [facility] | | | Excess, POC | | | LABORATORY | | + + + + + + | POC | 25.0 (L) | 60 - 85 % | [facility] | | | SO2.BLDV.QN | | | LABORATORY | | | .(%) | | | | | + + + + + + | Comment, | Abdile Test not | | [facility] | | | POC | indicatedComment: | | LABORATORY | | | | Testing performed at | | | | | | [facility] [place];[address];[place] [address] | | | | + + + + + + + + | Specimen | + + | | + + + + + + + | Performing | Address | City/State/Zipcode | Phone Number | | Organization | | | | + + + + + | [facility] | [address] | [place] [address] | [phone] | + + + + + Drugs Of Abuse Screen, Urine (H) (05/17/2019 10:58 PM PST) + + + + + + | Component | Value | Ref Range | Performed | Pathologist | | | | | At | Signature | + + + + + + | Amp/Methamp | NEGATIVEComment: | NEG | [facility] | | | hetamine, | Positive cutoff for AMP | | LABORATORY | | | Screen, | = 1000 ng/mL | | | | | Urine | | | | | + + + + + + | Barbiturate | NEGATIVEComment: | NEG | [facility] | | | s Screen, | Positive cutoff for SUDHEER | | LABORATORY | | | Urine | = 200 ng/mL | | | | + + + + + + | Benzodiazep | NEGATIVEComment: | NEG | [facility] | | | mayela | Positive cutoff for | | LABORATORY | | | Screen, | BENZO = 200 ng/mL | | | | | Urine | | | | | + + + + + + | Cocaine | NEGATIVEComment: | NEG | [facility] | | | Metabolites | Positive cutoff for BEVERLEY | | LABORATORY | | | , Ur | = 300 ng/mL | | | | + + + + + + | Methadone | NEGATIVEComment: | NEG | [facility] | | | Screen, | Positive cutoff for MTD | | LABORATORY | | | Urine | = 300 ng/mL | | | | + + + + + + | Opiates | NEGATIVEComment: | NEG | [facility] | | | Screen, | Positive cutoff for OPI | | LABORATORY | | | Urine | = 300 ng/mL | | | | + + + + + + | Phencyclidi | NEGATIVEComment: | NEG | [facility] | | | ne Screen, | Positive cutoff for PCP | | LABORATORY | | | Urine | = 25 ng/mL | | | | + + + + + + | Tetrahydroc | POSITIVE (A)Comment: | NEG | [facility] | | | annabinol(T | Positive cutoff for | | LABORATORY | | | HC) | THC = 50 ng/mLThe above | | | | | | are unconfirmed | | | | | | screening results. | | | | | | These results are to | | | | | | be used onlyfor medical | | | | | | (i.e.,treatment) | | | | | | purposes. Unconfirmed | | | | | | screening results must | | | | | | notbe used for | | | | | | non-medical purposes | | | | | | (e.g., employment | | | | | | testing, legal | | | | | | testing).Testing | | | | | | performed at [facility] [place] | | | | | | [facility];[place], [place] | | | | | | [address] | | | | + + + + + + + + | Specimen | + + | Urine | + + + + + + + | Performing | Address | City/State/[facility] | Phone Number | | Organization | | | | + + + + + | [facility] | [address] | [place] [address] | [phone] | + + + + + Ketones, Serum (05/17/2019 10:54 PM PST) + + + + + + | Component | Value | Ref Range | Performed | Pathologist | | | | | At | Signature | + + + + + + | Ketones, | NEGATIVEComment: Testing | NEG | [facility] | | | Blood | performed at [facility];[address] | | LABORATORY | | | | [address];[place] | | | | | | [address] | | | | + + + + + + + + | Specimen | + + | Blood | + + + + + + + | Performing | Address | City/State/Zipcode | Phone Number | | Organization | | | | + + + + + | [facility] | [address] | [place] [address] | [phone] | + + + + + TSH (05/17/2019 10:54 PM PST) + + + + + + | Component | Value | Ref Range | Performed | Pathologist | | | | | At | Signature | + + + + + + | TSH | 1.314Comment: Testing | 0.450 - 5.100 | [facility] | | | | performed at [facility] | uIU/mL | LABORATORY | | | | [address];[place] | | | | | | [address] | | | | + + + + + + + + | Specimen | + + | Blood | + + + + + + + | Performing | Address | City/State/Zipcode | Phone Number | | Organization | | | | + + + + + | [facility] | [address] | [place] [address] | [phone] | + + + + + Salicylate Level (05/17/2019 10:54 PM PST) + + + + + + | Component | Value | Ref Range | Performed | Pathologist | | | | | At | Signature | + + + + + + | Salicylate, | <3.0Comment: Testing | 2.8 - 20.0 | [facility] | | | mg/dL | performed at [facility] | mg/dL | LABORATORY | | | | [address];[place], [place] | | | | | | [address] | | | | + + + + + + + + | Specimen | + + | Blood | + + + + + + + | Performing | Address | City/State/Zipcode | Phone Number | | Organization | | | | + + + + + | [facility] | [address] | [place] [address] | [phone] | + + + + + Acetaminophen Level (05/17/2019 10:54 PM PST) + + + + + + | Component | Value | Ref Range | Performed | Pathologist | | | | | At | Signature | + + + + + + | Acetaminoph | <2.0 (L)Comment: Testing | 10.0 - 30.0 | [facility] | | | en, S | performed at [facility] | ug/mL | LABORATORY | | | | [address];[place] | | | | | | [address] | | | | + + + + + + + + | Specimen | + + | Blood | + + + + + + + | Performing | Address | City/State/Zipcode | Phone Number | | Organization | | | | + + + + + | [facility] | [address] | [place] [address] | [phone] | + + + + + Ethanol (05/17/2019 10:54 PM PST) + + + + + + | Component | Value | Ref Range | Performed | Pathologist | | | | | At | Signature | + + + + + + | ALCOHOL, | <10Comment: Testing | <10 mg/dL | [facility] | | | SERUM/PLASM | performed at [facility];[address] | | LABORATORY | | | A | [address];[place] | | | | | | [address] | | | | + + + + + + + + | Specimen | + + | Blood | + + + + + + + | Performing | Address | City/State/Zipcode | Phone Number | | Organization | | | | + + + + + | [facility] | [address] | [place] [address] | [phone] | + + + + + Comprehensive Metabolic Panel (05/17/2019 10:54 PM PST) + + + + + + | Component | Value | Ref Range | Performed | Pathologist | | | | | At | Signature | + + + + + + | Na | 135 | 135 - 145 | [facility] | | | | | mmol/L | LABORATORY | | + + + + + + | K | 4.7 | 3.5 - 4.9 | [facility] | | | | | mmol/L | LABORATORY | | + + + + + + | Cl | 99 | 99 - 109 mmol/L | [facility] | | | | | | LABORATORY | | + + + + + + | CO2 | 31 | 23 - 32 mmol/L | [facility] | | | | | | LABORATORY | | + + + + + + | Anion Gap | 10 | 5 - 20 mmol/L | [facility] | | | | | | LABORATORY | | + + + + + + | Glucose | 447 (H) | 65 - 99 mg/dL | [facility] | | | | | | LABORATORY | | + + + + + + | BUN | 11 | 8 - 25 mg/dL | [facility] | | | | | | LABORATORY | | + + + + + + | Creatinine | 0.96 | 0.70 - 1.30 | [facility] | | | | | mg/dL | LABORATORY | | + + + + + + | BUN/Creatin | 11 | | [facility] | | | ine Ratio | | | LABORATORY | | + + + + + + | Calcium | 9.2 | 8.5 - 10.5 | [facility] | | | | | mg/dL | LABORATORY | | + + + + + + | Protein, | 5.9 (L) | 6.3 - 8.2 g/dL | [facility] | | | Total | | | LABORATORY | | + + + + + + | Albumin | 4.0 | 3.6 - 5.0 g/dL | [facility] | | | | | | LABORATORY | | + + + + + + | Globulin | 1.9 | 1.3 - 4.9 g/dL | [facility] | | | | | | LABORATORY | | + + + + + + | A/G Ratio | 2.1 | 1.0 - 2.4 | [facility] | | | | | | LABORATORY | | + + + + + + | BILIRUBIN, | 0.4 | 0.1 - 1.5 mg/dL | [facility] | | | TOTAL | | | LABORATORY | | + + + + + + | ALK PHOS | 82 | 35 - 115 U/L | [facility] | | | | | | LABORATORY | | + + + + + + | AST | 23 | 10 - 45 U/L | [facility] | | | | | | LABORATORY | | + + + + + + | ALT | 19 | 10 - 65 U/L | [facility] [...] | | | | | performed at [facility];[address] | | | | | | [address];[place] | | | | | | [address] | | | | + + + + + + + + | Specimen | + + | Blood | + + + + + + + | Performing | Address | City/State/Zipcode | Phone Number | | Organization | | | | + + + + + | [facility] | [address] | [place] [address] | [phone] | + + + + + CBC with Differential (05/17/2019 10:54 PM PST) + + + + + + | Component | Value | Ref Range | Performed | Pathologist | | | | | At | Signature | + + + + + + | WBC | 5.15 | 3.80 - 11.00 | [facility] | | | | | K/uL | LABORATORY | | + + + + + + | Red Blood | 4.94 | 4.20 - 5.70 | [facility] | | | Cells | | M/uL | LABORATORY | | + + + + + + | Hemoglobin | 15.5 | 13.2 - 17.0 | [facility] | | | | | g/dL | LABORATORY | | + + + + + + | Hematocrit | 44.4 | 39.0 - 50.0 % | [facility] | | | | | | LABORATORY | | + + + + + + | MCV | 89.9 | 80.0 - 100.0 fl | [facility] | | | | | | LABORATORY | | + + + + + + | MCH | 31.4 | 27.0 - 34.0 pg | [facility] | | | | | | LABORATORY | | + + + + + + | MCHC | 35.0 | 32.0 - 35.5 | [facility] | | | | | g/dL | LABORATORY | | + + + + + + | RDW-SD | 39.8 | 37 - 53 fl | [facility] | | | | | | LABORATORY | | + + + + + + | Platelet | 299 | 150 - 400 K/uL | [facility] | | | Count | | | LABORATORY | | + + + + + + | MPV | 9.0 | fl | [facility] | | | | | | LABORATORY | | + + + + + + | Diff Type | AUTOMATED | | [facility] | | | | | | LABORATORY | | + + + + + + | % | 62.96 | % | [facility] | | | Neutrophils | | | LABORATORY | | + + + + + + | % | 24.33 | % | [facility] | | | Lymphocytes | | | LABORATORY | | + + + + + + | Monocyte % | 9.04 | % | [facility] | | | | | | LABORATORY | | + + + + + + | Eosinophils | 2.62 | % | [facility] | | | % | | | LABORATORY | | + + + + + + | Basophils % | 1.05 | % | [facility] | | | | | | LABORATORY | | + + + + + + | Neutrophils | 3.25 | 1.90 - 7.40 | [facility] | | | , Absolute | | K/uL | LABORATORY | | + + + + + + | Absolute | 1.25 | 1.00 - 3.90 | [facility] | | | Lymphocytes | | K/uL | LABORATORY | | + + + + + + | Absolute | 0.47 | 0.00 - 0.80 | [facility] | | | Monocytes | | K/uL | LABORATORY | | + + + + + + | Eosinophils | 0.14 | 0.00 - 0.50 | [facility] | | | , Absolute | | K/uL | LABORATORY | | + + + + + + | Basophils, | 0.05Comment: Testing | 0.00 - 0.10 | [facility] | | | Absolute | performed at [facility] | K/uL | LABORATORY | | | | [address];[place] | | | | | | [address] | | | | + + + + + + + + | Specimen | + + | Blood | + + + + + + + | Performing | Address | City/State/Zipcode | Phone Number | | Organization | | | | + + + + + | [facility] | [address] | [place] [address] | [phone] | + + + + + POC Glucose (05/17/2019 10:53 PM PST) + + + + + + | Component | Value | Ref Range | Performed | Pathologist | | | | | At | Signature | + + + + + + | Glucose, | >400 (H)Comment: Testing | 65 - 99 mg/dL | [facility] | | | POC | performed at [facility];[address] | | LABORATORY | | | | [address];[place] | | | | | | [address] | | | | + + + + + + + + | Specimen | + + | | + + + + + + + | Performing | Address | City/State/Zipcode | Phone Number | | Organization | | | | + + + + + | [facility] | [address] | [place] [address] | [phone] | + + + + + documented in this encounter Visit Diagnoses + + | Diagnosis | + + | Schizoaffective disorder, bipolar type, multiple episodes, currently in acute episode | | - Primary Schizoaffective disorder, unspecified condition | + + | Schizophrenia, unspecified type (HCC) | + + | Acute psychosis (HCC) Unspecified psychosis | + + | Marijuana use Cannabis abuse, unspecified | + + | Nausea and vomiting in adult Nausea with vomiting | + + | Noncompliance with medication regimen Personal history of noncompliance with medical | | treatment, presenting hazards to health | + + | Tobacco smoker | + + | Type 1 diabetes mellitus without complication (HCC) Type I (juvenile type) diabetes | | mellitus without mention of complication, not stated as uncontrolled | + + | Acute hyperkalemia Hyperpotassemia | + + | Type 2 diabetes mellitus without complication, with long-term current use of insulin | | (HCC) | + + | ADHD (attention deficit hyperactivity disorder) Attention deficit disorder with | | hyperactivity | + + | Suicide ideation Suicidal ideation | + + documented in this encounter Administered Medications + +--------+ +--------+------+------+ | Medication Order | MAR | Action | Dose | Rate | Site | | | Action | Date | | | | + +--------+ +--------+------+------+ | acetaminophen (TYLENOL) tablet | Given | 05/21/20 | 650 mg | | | | 650 mg 650 mg, Oral, EVERY 4 | | 19 12:10 | | | | | HOURS PRN, Pain, or fever >= 38.6 | | PM PST | | | | | C (101.5 F), Starting Wed | | | | | | | 05/19/19 at 0229 | | | | | | + +--------+ +--------+------+------+ + +---+ | | | + +---+ | albuterol 90 mcg/puff inhaler 2 | | | puff 2 puff, Inhalation, RT | | | EVERY 4 HOURS PRN, Shortness of | | | Breath, Starting Fri05/21/19 at | | | 1218, Shake well. Use with | | | spacer., | | + +---+ | | | + +---+ | dextrose 10% (D10W) infusion | | | at 50 mL/hr, Intravenous, | | | CONTINUOUS PRN, hypoglycemia, | | | Starting Fri05/19/19 at 0229, | | | Start infusion if unable to | | | maintain blood glucose greater | | | than 70 mg/dL after two rounds of | | | hypoglycemia treatment. Recheck | | | blood glucose 30 minutes after | | | starting D10W then at least | | | hourly and PRN until it is | | | discontinued. Call provider to | | | discuss parameters for D10W | | | discontinuation., | | + +---+ | | | + +---+ | dextrose 10% (D10W) infusion | | | at 110 mL/hr, Intravenous, PRN, | | | Start if TPN or tube feedings | | | held for > 30 minutes., Starting | | | Fri05/19/19 at 1932 | | + +---+ | | | + +---+ + +---------+ +---+-------+---+ | dextrose 5% and sodium chloride | New Bag | 05/20/20 | | 125 | | | 0.45% (D5 1/2 NS) infusion at | | 19 4:22 | | mL/hr | | | 125 mL/hr, Intravenous, | | AM PST | | | | | CONTINUOUS, Starting 05/19/19 | | | | | | | at 2000 | | | | | | + +---------+ +---+-------+---+ +---------+ +---+-------+---+ | New Bag | 05/19/20 | | 125 | | | | 19 9:00 | | mL/hr | | | | PM PST | | | | +---------+ +---+-------+---+ +---+---+ | | | +---+---+ + +-------+ +------+---+---+ | dextrose 50% injection 12.5-25 | Given | 05/19/20 | 25 g | | | | g 12.5-25 g, Intravenous, PRN, | | 19 9:15 | | | | | Low Blood Sugar, Starting Wed | | PM PST | | | | | 05/19/19 at 0229, For blood | | | | | | | glucose 50-69 mg/dl - give 12.5 g | | | | | | | For blood glucose less than 50 | | | | | | | mg/dl - give 25 g, | | | | | | + +-------+ +------+---+---+ +-------+ +------+---+---+ | Given | 05/19/20 | 25 g | | | | | 19 9:11 | | | | | | PM PST | | | | +-------+ +------+---+---+ + +---+ | | | + +---+ | dextrose 50% injection 2.5-25 g | | | 2.5-25 g (5-50 mL), | | | Intravenous, PRN, Low Blood | | | Sugar, Starting 05/19/19 at | | | 1932, For BG 70 or less, per | | | EndoTool guidelines. Recheck | | | Blood Glucose in 15 minutes. | | | Refer to EndoTool for | | | hypoglycemia protocol., | | + +---+ | | | + +---+ + +-------+ + +---+ + | insulin glargine (LANTUS | Given | 05/21/20 | 20 Units | | Arm-Left | | SOLOSTAR) injection (pen) 20 | | 19 8:39 | | | Upper | | Units 20 Units, Subcutaneous, | | AM PST | | | | | EVERY 12 HOURS (2 times per day), | | | | | | | First dose on [facility] 05/20/19 at | | | | | | | 1230, For subcutaneous use only. | | | | | | | Basal (long acting) insulin., If | | | | | | | NPO: Decrease dose, by: 25% | | | | | | + +-------+ + +---+ + +-------+ + +---+ + | Given | 05/20/20 | 20 Units | | Arm-Left | | | 19 9:28 | | | Upper | | | PM PST | | | | +-------+ + +---+ + | Given | 05/20/20 | 20 Units | | Abdomen- | | | 19 3:36 | | | RUQ | | | PM PST | | | | +-------+ + +---+ + +---+---+ | | | +---+---+ + +-------+ + +---+ + | insulin glargine (LANTUS | Given | 05/19/20 | 25 Units | | Arm-Left | | SOLOSTAR) injection (pen) 25 | | 19 3:03 | | | Upper | | Units 25 Units, Subcutaneous, | | AM PST | | | | | NIGHTLY, First dose on Fri | | | | | | | 05/19/19 at 0300, For | | | | | | | subcutaneous use only. Basal | | | | | | | (long acting) insulin., If NPO: | | | | | | | Decrease dose, by: 25% | | | | | | + +-------+ + +---+ + +---+---+ | | | +---+---+ + +-------+ + +---+ + | insulin lispro (humaLOG) | Given | 05/19/20 | 12 Units | | Leg-Righ | | injection (vial) 0-12 Units 0-12 | | 19 4:04 | | | t Upper | | Units, Subcutaneous, 4 TIMES | | PM PST | | | | | DAILY WITH MEALS & NIGHTLY, First | | | | | | | dose on 05/19/19 at 0300, | | | | | | | CORRECTION SCALE: Blood Glucose | | | | | | | (BG) < 150: None | | | | | | | BG 150-200: DAY: 2 units. | | | | | | | NIGHT: 0 units BG 201-250: DAY: | | | | | | | 4 units. NIGHT: 2 units BG | | [...] | | | | | | | [id number] Use NIGHT DOSE for | | | | | | | doses scheduled: HS, 3AM, | | | | | | | Nighttime [id number] If the BG is | | | | | | | not checked before the patient | | | | | | | starts eating, do not give | | | | | | | correction insulin. If HS insulin | | | | | | | given, check blood glucose at | | | | | | | 3AM. Only for use with U-100 | | | | | | | insulin syringe., | | | | | | + +-------+ + +---+ + +-------+ +---------+---+ + | Given | 05/19/20 | 6 Units | | Arm-Left | | | 19 7:07 | | | Upper | | | AM PST | | | | +-------+ +---------+---+ + +---+---+ | | | +---+---+ + +-------+ +---------+---+ + | insulin lispro (humaLOG) | Given | 05/21/20 | 2 Units | | Arm-Left | | injection (vial) 0-12 Units 0-12 | | 19 12:12 | | | Upper | | Units, Subcutaneous, 4 TIMES | | PM PST | | | | | DAILY WITH MEALS & NIGHTLY, First | | | | | | | dose on Fri05/21/19 at 1200, | | | | | | | CORRECTION SCALE: Blood Glucose | | | | | | | (BG) < 150: None | | | | | | | BG 150-200: DAY: 2 units. | | | | | | | NIGHT: 0 units BG 201-250: DAY: | | | | | | | 4 units. NIGHT: 2 units BG | | [...] | | | | | | | 4791-0364 Use NIGHT DOSE for | | | | | | | doses scheduled: HS, 3AM, | | | | | | | Nighttime 6214-3624 If the BG is | | | | | | | not checked before the patient | | | | | | | starts eating, do not give | | | | | | | correction insulin. If HS insulin | | | | | | | given, check blood glucose at | | | | | | | 3AM. Only for use with U-100 | | | | | | | insulin syringe., | | | | | | + +-------+ +---------+---+ + +---+---+ | | | +---+---+ + +-------+ +---------+---+ + | insulin lispro (humaLOG) | Given | 05/21/20 | 6 Units | | Arm-Righ | | injection (vial) 0-18 Units 0-18 | | 19 8:40 | | | t Upper | | Units, Subcutaneous, 4 TIMES | | AM PST | | | | | DAILY WITH MEALS & NIGHTLY, First | | | | | | | dose on [facility] 05/20/19 at 1230, | | | | | | | CORRECTION SCALE: Blood Glucose | | | | | | | (BG) < 150: None | | | | | | | BG 150-200: DAY: 3 units. | | | | | | | NIGHT: 0 units BG 201-250: DAY: | | | | | | | 6 units. NIGHT: 3 units BG | | [...] | | | | | | | 9700-0347 Use NIGHT DOSE for | | | | | | | doses scheduled: HS, 3AM, | | | | | | | Nighttime 5073-9242 If the BG is | | | | | | | not checked before the patient | | | | | | | starts eating, do not give | | | | | | | correction insulin. If HS insulin | | | | | | | given, check blood glucose at | | | | | | | 3AM. Only for use with U-100 | | | | | | | insulin syringe., | | | | | | + +-------+ +---------+---+ + +-------+ + +---+ + | Given | 05/20/20 | 18 Units | | Arm-Righ | | | 19 4:40 | | | t Upper | | | PM PST | | | | +-------+ + +---+ + +---+---+ | | | +---+---+ + +-------+ + +---+ + | insulin lispro (humaLOG) | Given | 05/21/20 | 10 Units | | Arm-Left | | injection (vial) 10 Units 10 | | 19 8:41 | | | Upper | | Units, Subcutaneous, 3 TIMES | | AM PST | | | | | DAILY WITH MEALS, First dose on | | | | | | | [facility] 05/20/19 at 1245, Only for | | | | | | | use with U-100 insulin syringe., | | | | | | + +-------+ + +---+ + +-------+ + +---+ + | Given | 05/20/20 | 10 Units | | Arm-Left | | | 19 6:58 | | | Upper | | | PM PST | | | | +-------+ + +---+ + | Given | 05/20/20 | 10 Units | | Arm-Righ | | | 19 12:39 | | | t Upper | | | PM PST | | | | +-------+ + +---+ + +---+---+ | | | +---+---+ + +-------+ + +---+ + | insulin lispro (humaLOG) | Given | 05/21/20 | 15 Units | | Arm-Left | | injection (vial) 15 Units 15 | | 19 12:11 | | | Upper | | Units, Subcutaneous, 3 TIMES | | PM PST | | | | | DAILY WITH MEALS, First dose | | | | | | | (after last modification) on Fri | | | | | | | 05/21/19 at 1200, Only for use | | | | | | | with U-100 insulin syringe., | | | | | | + +-------+ + +---+ + +---+---+ | | | +---+---+ + +-------+ +---------+---+ + | insulin lispro (humaLOG) | Given | 05/19/20 | 5 Units | | Abdomen- | | injection (vial) 5 Units 5 | | 19 5:53 | | | LLQ | | Units, Subcutaneous, 3 TIMES | | PM PST | | | | | DAILY WITH MEALS, First dose on | | | | | | | 05/19/19 at 1700, Only for | | | | | | | use with U-100 insulin syringe., | | | | | | + +-------+ +---------+---+ + +---+---+ | | | +---+---+ + + + + +-------+---+ | insulin regular (humuLIN R, | Rate/Dos | 05/20/20 | 1.7 | 1.7 | | | novoLIN R) 1 Units/mL in sodium | e | 19 4:26 | Units/hr | mL/hr | | | chloride 0.9% 250 mL infusion | Change-D | AM PST | | | | | (EndoTool) 0.1-50 Units/hr | ual Sign | | | | | | (0.1-50 mL/hr), at 0.1-50 mL/hr, | | | | | | | Intravenous, TITRATED, Starting | | | | | | | 05/19/19 at 2000, Work with | | | | | | | provider to assure there are no | | | | | | | other orders for other insulin or | | | | | | | oral diabetes medications. | | | | | | | Attach insulin drip into "Y" site | | | | | | | of normal saline IV running @ 30 | | | | | | | mL/hr. Prime tubing with 30 mL | | | | | | | of insulin infusion, prior to | | | | | | | starting infusion. Patient should | | | | | | | be on continuous nutritional | | | | | | | support while on IV insulin. When | | | | | | | patient's blood glucose is | | | | | | | stable as indicated by EndoTool, | | | | | | | convert to subcutaneous | | | | | | | correctional insulin based on | | | | | | | EndoTool conversion orders., | | | | | | + + + + +-------+---+ + + + +---------+---+ | Rate/Dose Change-Dual Sign | 05/20/20 | 4 | 4 mL/hr | | | | 19 2:22 | Units/hr | | | | | AM PST | | | | + + + +---------+---+ | Rate/Dose Change-Dual Sign | 05/20/20 | 3.4 | 3.4 | | | | 19 1:23 | Units/hr | mL/hr | | | | AM PST | | | | + + + +---------+---+ +---+---+ | | | +---+---+ + +-------+ + +---+---+ | insulin regular (humuLIN R, | Given | 05/18/20 | 10 Units | | | | novoLIN R) injection 10 Units 10 | | 19 12:58 | | | | | Units, Intravenous, ONCE, Tue | | AM PST | | | | | 05/18/19 at 0000, For 1 dose, | | | | | | | Only for use with U-100 insulin | | | | | | | syringe., | | | | | | + +-------+ + +---+---+ +---+---+ | | | +---+---+ + +-------+ + +---+---+ | insulin regular (humuLIN R, | Given | 05/18/20 | 10 Units | | | | novoLIN R) injection 10 Units 10 | | 19 2:39 | | | | | Units, Intravenous, ONCE, Tue | | PM PST | | | | | 05/18/19 at 1435, For 1 dose, | | | | | | | Only for use with U-100 insulin | | | | | | | syringe., | | | | | | + +-------+ + +---+---+ +---+---+ | | | +---+---+ + +-------+ + +---+---+ | insulin regular (humuLIN R, | Given | 05/18/20 | 10 Units | | | | novoLIN R) injection 10 Units 10 | | 19 8:45 | | | | | Units, Intravenous, ONCE, Tue | | PM PST | | | | | 05/18/19 at 2030, For 1 dose, | | | | | | | Only for use with U-100 insulin | | | | | | | syringe., | | | | | | + +-------+ + +---+---+ +---+---+ | | | +---+---+ + + + +---------+---+---+ | insulin regular bolus from bag | Bolus | 05/20/20 | 3 Units | | | | (EndoTool) 1-50 Units 1-50 | from Bag | 19 1:24 | | | | | Units, Intravenous, EVERY 15 MIN | | AM PST | | | | | PRN, High Blood Sugar, Starting | | | | | | | 05/19/19 at 1932, Per | | | | | | | EndoTool guidelines., | | | | | | + + + +---------+---+---+ + + +---------+---+---+ | Bolus from Bag | 05/19/20 | 7 Units | | | | | 19 7:55 | | | | | | PM PST | | | | + + +---------+---+---+ + +---+ | | | + +---+ | LORazepam (ATIVAN) injection 1 | | | mg 1 mg, Intravenous, EVERY 4 | | | HOURS PRN, Anxiety, Other, | | | agitation, Starting 05/19/19 | | | at 1501 | | + +---+ | | | + +---+ | lurasidone (LATUDA) tablet 40 | | | mg 40 mg, Oral, DAILY WITH | | | BREAKFAST, First dose on [facility] | | | 05/20/19 at 1030, Give with food | | | (350 calories or more)., | | + +---+ | | | + +---+ + +---------+ +---------+---+ + | nicotine (NICODERM) 14 mg/24 hr | Patch | 05/21/20 | 1 patch | | Arm-Righ | | 1 patch 1 patch, Transdermal, | Applied | 19 8:42 | | | t Upper | | DAILY, First dose on Fri05/18/19 | | AM PST | | | | | at 2345 | | | | | | + +---------+ +---------+---+ + + + +---------+---+ + | Patch Applied | 05/20/20 | 1 patch | | Arm-Left | | | 19 10:58 | | | Lower | | | AM PST | | | | + + +---------+---+ + | Patch Applied | 05/18/20 | 1 patch | | Arm-Left | | | 19 11:38 | | | Upper | | | PM PST | | | | + + +---------+---+ + +---+---+ | | | +---+---+ + +-------+ +------+---+ + | OLANZapine (zyPREXA) injection | Given | 05/20/20 | 5 mg | | Deltoid- | | 5 mg 5 mg, Intramuscular, ONCE, | | 19 4:57 | | | Left | | [place] 05/20/19 at 0515, For 1 dose, | | AM PST | | | | | Mix with 2.1 mL sterile water to | | | | | | | make 5 mg/mL. Do not exceed 30 | | | | | | | mg/day., | | | | | | + +-------+ +------+---+ + +---+---+ | | | +---+---+ + +-------+ +------+---+---+ | ondansetron (ZOFRAN) injection | Given | 05/20/20 | 4 mg | | | | 4 mg 4 mg, Intravenous, EVERY 6 | | 19 1:40 | | | | | HOURS PRN, Nausea, Vomiting, | | PM PST | | | | | Starting 05/19/19 at 0229, | | | | | | | First line agent, | | | | | | + +-------+ +------+---+---+ +---+---+ | | | +---+---+ + +---------+ +--------+-------+---+ | sodium chloride 0.9% (NS) bolus | New Bag | 05/18/20 | 1,000 | 2000 | | | 1,000 mL 1,000 mL, Intravenous, | | 19 2:37 | mLs | mL/hr | | | Administer over 30 Minutes, | | AM PST | | | | | ONCE, 05/18/19 at 0150, For 1 | | | | | | | dose | | | | | | + +---------+ +--------+-------+---+ +---+---+ | | | +---+---+ + +---------+ +--------+-------+---+ | sodium chloride 0.9% (NS) bolus | New Bag | 05/18/20 | 1,000 | 1000 | | | 1,000 mL 1,000 mL, Intravenous, | | 19 3:24 | mLs | mL/hr | | | Administer over 1 Hours, ONCE, | | PM PST | | | | | 05/18/19 at 1525, For 1 dose | | | | | | + +---------+ +--------+-------+---+ +---+---+ | | | +---+---+ + +---------+ +--------+-------+---+ | sodium chloride 0.9% (NS) bolus | New Bag | 05/17/20 | 2,000 | 4000 | | | 2,000 mL 2,000 mL, Intravenous, | | 19 11:40 | mLs | mL/hr | | | Administer over 30 Minutes, | | PM PST | | | | | ONCE, [facility] 05/17/19 at 2335, For 1 | | | | | | | dose | | | | | | + +---------+ +--------+-------+---+ +---+---+ | | | +---+---+ + +---------+ +---+ +---+ | sodium chloride 0.9% (NS) | New Bag | 05/19/20 | | 30 mL/hr | | | infusion at 30 mL/hr, | | 19 7:57 | | | | | Intravenous, CONTINUOUS, Starting | | PM PST | | | | | 05/19/19 at 2000 | | | | | | + +---------+ +---+ +---+ + +---+ | | | + +---+ | ziprasidone (GEODON) injection | | | 10 mg 10 mg, Intramuscular, | | | EVERY 6 HOURS PRN, Agitation, | | | Starting [facility] 05/20/19 at 0913, | | | Reproductive Risk: Use | | | appropriate handling precautions. | | | Mix with 1.2 mL sterile water to | | | make 20 mg/mL. Do not exceed 40 | | | mg/day., | | + +---+ | | | + +---+ + +-------+ +-------+---+ + | ziprasidone (GEODON) injection | Given | 05/17/20 | 20 mg | | Deltoid- | | 20 mg 20 mg, Intramuscular, | | 19 11:28 | | | Right | | ONCE, 05/17/19 at 2310, For 1 | | PM PST | | | | | dose, Reproductive Risk: Use | | | | | | | appropriate handling precautions. | | | | | | | Mix with 1.2 mL sterile water to | | | | | | | make 20 mg/mL. Do not exceed 40 | | | | | | | mg/day., | | | | | | + +-------+ +-------+---+ + +---+---+ | | | +---+---+ + +-------+ +-------+---+ + | ziprasidone (GEODON) injection | Given | 05/18/20 | 20 mg | | Deltoid- | | 20 mg 20 mg, Intramuscular, | | 19 10:29 | | | Left | | ONCE, 05/18/19 at 1025, For 1 | | AM PST | | | | | dose, Reproductive Risk: Use | | | | | | | appropriate handling precautions. | | | | | | | Mix with 1.2 mL sterile water to | | | | | | | make 20 mg/mL. Do not exceed 40 | | | | | | | mg/day., | | | | | | + +-------+ +-------+---+ + +---+---+ | | | +---+---+ documented in this encounter
--- OUTSIDE RECORDS SUMMARY | ~2020-01-12 | XMS | Encounter Summary ---
Demographics + + + | Address | [address] | | | [place] [address] | + + + | Home Phone | | + + + | Preferred Language | Unknown | + + + | Marital Status | Single | + + + | Christian Affiliation | 1001 | + + + [...] Team Providers + +------+ + | Care Social Science Professor Name | Role | Phone | + +------+ + PCP | Unavailable | + +------+ + Encounter Details +--------+ + + + + | Date | Type | Department | Care Team | Description | +--------+ + + + + | 02/05/ | Hospital | [facility] | Cody Kan | Diabetic | | 2016 - | Encounter | [facility] | Iglesia Mccall MD 00[address] | ketoacidosis without | | | | CARE FLOOR [address] | coma associated | | 02/07/ | | [address] | [place] [address] | with type 2 diabetes | | 2016 | | [place], [place] | [phone] | mellitus (HCC) | | | | [address] | | | | | | [phone] | | | +--------+ + + + [...] Date of Service: 02/08/16 0936 Status: Signed Rehab Technician: Lanre Pan MD (Physician) Related Notes: Original Note by Lanre Pan MD (Physician) filed at 02/08/16 1015 [facility]: Hospitalist Discharge Summary Date of Admission: [...] episodes of DKA, and recently moved to [place], [place]. The patient typically takes Lantus pens, though according to the patie nt he has not been storing them appropriately and may have left them out of the fridge for a prolonged period, and the patient indicates that he may have missed a few doses. [facility] few days prior to his admission. He was initially seen at [place] emergency department and diagnosed with diabetic ketoaci [...] to schedule appointment with the PCP in [place]. DISCHARGE DIAGNOSES 1. Diabetic ketoacidosis in a type 1 diabetic. 2. History of reported schizophrenia, stable. 3. History of tobaccoism. Patient was counseled on tobacco cessation. 4. Electrolyte imbalance, secondary to diabetic ketoacidosis treatment. Past Medical History Diagnosis Date Schizophrenia (HCC) 02/06/2016 Attention-deficit hyperactivity disorder, predominantly hyperactive type 02/06/2016 Depression 02/06/2016 Leukocytosis (leucocytosis) 02/06/2016 Diabetes mellitus type I ([facility]) History reviewed. No pertinent past surgical history. [...] on file. Follow up: Margarita Gonzales MD [address] [place] [address] follow up for diabetes Medication List CONTINUE [...] Note by Rosario Ocampo RN at 02/08/16 125 Author: Rosario Ocampo RN Service: (none) Author Type: Registered Nurse Filed: 02/08/16 1255 Date of Service: 02/08/161254 Status: Signed Rehab Technician: Rosario Ocampo RN (Registered Nurse) Discharge instructions given, all questions answered, patient/resident care technician expresses understa nding. Prescriptions given. IV removed. VSS. Patient left ambulatory to a private residence with family onver danie Transaction, Provider Unknown - 02/08/2016 9:52 AM PDT Case Management by Rhea Kaiser RN at 02/08/16 0952 Author: Rhea Kaisre RN Service: (none) Author Type: Registered Nurse Filed: 02/08/16 1000 Date of Service: 02/08/16951 Status: Addendum Rehab Technician: Rhea Kaiser RN (Registered Nurse) Related Notes: Original Note by Rhea Kaiser RN (Registered Nurse) filed at 02/08/16 0 955 Discharge Planning: contacted [facility] [place] [phone], staff noted Shilpi scott is assigned to his case, left message with call back number for counselor to contact . Discharge Planning: spoke to CM Shilpi Mirza return call, advised [facility] office will contac t patient this afternoon to set up appointment. Entered appointment info and phone number in AVS and gave message to patient. onver danie Transaction, Provider Unknown - 02/08/2016 6:40 AM PDT Nurse Progress Note by Gayle Gomez RN at 02/08/16 0640 Author: Gayle Gomez RN Service: (none) Author Type: Registered Nurse Filed: 02/08/16 0644 Date of Service: 02/08/16639 Status: Signed Rehab Technician: Gayle Gomez RN (Registered Nurse) No changes [...] 02/07/161918 Date of Service: 02/07/161819 Status: Addendum Rehab Technician: Aracelis Strong RN (Registered Nurse) Related Notes: [...] 298. 8 units insulin administered. Currently amb ulating hall. Report given to ERIKA Araujo. Aracelis Strong RN onver danie Transaction, Provider Unknown - 02/07/2016 3:27 PM PDT Case Management by Rhea Kaiser RN at 02/07/16 1527 Author: Rhea Kaiser RN Service: (none) Author Type: Registered Nurse Filed: 02/07/16 2800 Date of Service: 02/07/16 1527 Status: Addendum Rehab Technician: Rhea Kaiser RN (Registered Nurse) Related Notes: [...] (spoke with patient and with mom Blossom [phone], patient resides with mom, sleeps on the couch, patient and mom would like patient to live in assisted living ) Mental Status Oriented Power of Warp Preparer No Anticipated Discharge Plan Post Acute Care [...] Home (CM will check for [facility] in [facility]) Met with: CM spoke with patient and patient mother (with pt permission) to discuss discharg e planning, Pt is a 35 y.o., male, whom arrived via life flight to [facility] from [facility] due to DKA. Patient with dx of DM type I, schizophrenia. Patient resided in [facility] for 5 years. Patient and patient mother Blossom [phone] would like leonardo ent to live independent of parent in [facility] or assisted living in [facility]. CM to contact Brody with [employer] in [place] for information concerning patient. Patient states he [...] care provider on file. Patient's insurance: Medicaid [facility] Coverage concerns: no Medication coverage/concerns: non compliant with DM I CBG and insulin use Community resources utilized / needed: patient is requesting shelter placement and help to get his life back on track Assistance in transportation: patient's mother will transport Blossom [phone] Identification of any specific education / training: [...] Date of Service: 02/07/16 1001 Status: Signed Rehab Technician: Lanre Pan MD (Physician) [facility]: Hospitalist Progress Note Hospital Day: LOS: 1 day Post-Op Day: * No surgery found * SUBJECTIVE Patient Summary: admission H and P Dr. Kan:"The patient is a 35 y.o. male wi th significant past medical history of schizophrenia, patient states last admission to [facility] was 2 years ago, ADHD, depression, type I diabetes mellitus diagnos ed at age 4 according to the patient and about 3 episodes of admissions for DKA since he mov ed to [place]. Per Dr. Dunaway, [facility] emergency room the patient and had a couple of admissions of this year for DKA. Patient had been kicked out of the [place] had been smoking marijuan a which the patient admits. Had presented to [facility] emergency room today after a friend had [...] elayed to me by Dr. Dunaway of [facility] ER, had about a week prior to admission and the patient has been laying in the [place] for the last 4 days during nothing she medications. Per mother the patient also had lost 100 pounds since october of this year. Patient was seen at the [facility] Emergency Department, was noted to be tachycardic and tachypneic I was told initially his heart rate was in the 120s, respiration was in the mid 20s, patient was refusing to answer questions or could not answer questions according to [facility] Department physician, labs showed he was in DKA, he was given 2 L of IV fluid bolus w sandra there, subsequently hospitalist and ICU attending was called at [facility] for a transfer of patient, Dr. Vega recommended giving the patient bicarbonate and potassium which was done , the patient was also in the process of being given 2 more liters of normal saline and was transferred at acute care floor in [facility]. By the time admitting hospitalist and [...] we will transition off insulin drip over [facility] htime., Appreciate Dr. Gonzales input, Levemir 10 [...] Progress Notes by Darcy Niño RD at 02/07/16 0940 Author: Darcy Niño RD Service: (none) Author Type: Registered Dietitian Filed: 02/07/16 0941 Date of Service: 02/07/16 0940 Status: Signed Rehab Technician: Darcy Niño RD (Registered Dietitian) 02/07/16 0931 [...] Estimated Energy Needs Total Energy Estimated Needs 7519-3555 kcal/day Method for Estimating Needs 25-30 kcal/kg [...] Date of Service: 02/07/16 06 Status: Signed Rehab Technician: Gayle Gomez RN (Registered Nurse) No changes [...] Note by Jace Yanez RN at 02/06/16 1622 Author: Jace Yanez RN Service: (none) Author Type: Registered Nurse Filed: 02/06/16 1630 Date of Service: 02/06/161621 Status: Signed Rehab Technician: Jace Yanez RN (Registered Nurse) Pts mother, Blossom, came by hospital to see son and will head back to [place]. She stat es that pts schizophrenia started at age 19 or 20, and that pt often thinks he is other peop le (ie, [employer]), and often mixes fiction with reality. [facility] [place] [facility] on [facility] the last 5 years, and has been in [place] since September. [employer] has been working to find him placement [...] Date of Service: 02/06/16 0849 Status: Addendum Rehab Technician: Cody Kan MD (Physician) Related Notes: Original Note by Cody Kan MD (Physician) filed at 02/07/16 1611 [facility]: Hospitalist Admission History & Physical Date of Admission: 02/06/2016 Requesting Physician: Gume Finn, Emergency Department [facility] Reason for Admission: DKA History Obtained From: patient, chart review, Quality of history: fair CHIEF COMPLAINT: DKA HISTORY OF PRESENT ILLNESS The patient is a 35 y.o. male with significant past medical history of schizophrenia, leonardo ent states last admission to [facility] was 2 years ago, ADHD, depression, type I diabetes mellitus diagnosed at age 4 according to the patient and about 3 episodes o f admissions for DKA since he moved to [place]. Per Dr. Dunaway, [facility] emergency room the patie nt and had a couple of admissions this year for DKA. Patient had been kicked out of the [place] as he had been smoking marijuana which the patient admits. Had presented to [facility] emergency room today after a friend had [...] relayed to me by Dr. Dunaway of [facility] ER, had about a week prior to admission and the leonardo ent has been laying in the couch for the last 4 days doing nothing. Per mother the patient a lso had lost 100 pounds since October of this year. Patient was seen at the [facility] Emergency Department, was noted to be tachycardic [...] hospitalist and ICU attending was called at [facility] for a transfer of patient, Dr. Vega recommended giving the patient bicarbonate and pota ssium which was done, the patient was also in the process of being given 2 more liters of no rmal saline and was transferred to acute care floor in [facility]. By the time admitting hospitalist saw [...] sensation and reflexes throughout DATA Labs from [facility] CBC: WBCs 12.6, hemoglobin 15.9, hematocrit [...] no acute ST-T wave changes. CXR from [facility] no pneumonia or other acute process [...] his last admission and discharge summary from [facility] to be faxed here. heparin for deep vein thrombosis prophylaxis. L eukocytosis is probably reactive and at this point I will hold off on giving antibiotics. Schizophrenia ([facility]) (02/06/2016) Assessment: not in exacerbation Plan: should have his medications once eating and I have asked for director of medical staff services to reconcile his medications from his pharmacy in [place] Attention-deficit hyperactivity disorder, predominantly hyperactive type Assessment:not in exacerbation Plan: will should have his medications he should not once eating and I have asked for director of medical staff services to reconcile his medications from his pharmacy in [place] Depression Assessment: not in exacerbation Plan: should have his medications restarted once eating and I have asked for director of medical staff services to reconcile his medications from his pharmacy in [place] I explained radiology and lab findings, plan [...] care with other providers well as Computerized Transfer Driver. Other recom mendations for management of this [...] Inpatient to Acute Care Floor Dictation software, Gochikuru, used which may contain error for similar [...] 0735 Date of Service: 02/08/16623 Status: Signed Rehab Technician: Margarita Gonzales MD (Physician) [facility]: Endocrinology Follow Up Consult Note Date [...] are postprandial as pt not cooperating with [facility] nursing staff re:planned mealtimes More awake [...] Per outside records - pt presented to [facility] after several days of "lying on the cou ch." Pt has recently been discharged from his shelter 2/2 marijuana use. Grandmother has rece ntly . Family members thought pt was simply suffering from depression over the pa st few days. Presented to [facility], found to have pH of 6.01 on ABG and CO2 of 5. Transferred to [facility], pt has now received at least 4L [...] negative. Past Medical History Diagnosis Date Schizophrenia ([facility]) 02/06/2016 Attention-deficit hyperactivity disorder, predominantly hyperactive type 02/06/2016 Depression 02/06/2016 Leukocytosis (leucocytosis) 02/06/2016 Diabetes mellitus type I ([facility]) History reviewed. No pertinent past surgical history. 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 [...] Orozco RN, CDE Service: (none) Author Type: Automotive Sales Manager Filed: 02/07/16 5934 Date of Service: 02/07/161718 Status: Signed Rehab Technician: Luís Orozco RN, TYRESEE (Automotive Sales Manager) Consult Orders: 1. Inpatient consult to unit educator [[id number]] ordered by Margarita Gonzales MD at 02/06 9602 Diabetes Education Met with Patient today. Reports [...] Patient reports he is currently living in [facility], and at times receives assistanc e from "[facility]" to help with placement/long-term "They helped me get a hotel for [...] provided contact information for CDE located in [place]. Encouraged Patient to discuss Diabetes Education with [...] than 30 days. Patient was followed by Sub[facility] Worker earlier today. Current insulin orders as per Endocr inologist recomendations. Margarita Mcduffie MD - 02/07/2016 6:29 AM PDT Consult* by Margarita Gonzales MD at 02/07/16628 Author: Margarita Gonzales MD Service: (none) Author Type: Physician Filed: 02/07/16 0725 Date of Service: 02/07/16628 Status: Signed Rehab Technician: Margarita Gonzales MD (Physician) [facility]: Endocrinology Follow Up Consult Note Date [...] Per outside records - pt presented to [facility] after several days of "lying on the cou ch." Pt has recently been discharged from his shelter 2/2 marijuana use. Grandmother has rece ntly . Family members thought pt was simply suffering from depression over the pa st few days. Presented to [facility], found to have pH of 6.01 on ABG and CO2 of 5. 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 [...] C) (02/06 033) BP: (92-113)/(51-75) 105/64 mmHg (02/07 336) Heart Rate: [68-100] 68 (02/07 336) Resp: [18-22] 18 (02/07 336) SpO2: [95 %-100 %] 95 % (02/07 336) Height: [176.5 cm (5' 9.5")] 176.5 cm [...] Date of Service: 02/06/16 1014 Status: Signed Rehab Technician: Margarita Gonzales MD (Physician) [facility]: Endocrinology Initial Consult Note Date of Admission: 02/06/2016 Reason for Consultation: DKA Requesting Physician: Hospitalist History Obtained From: patient, chart review CHIEF COMPLAINT: High sugars HISTORY OF PRESENT ILLNESS The patient is 35 y.o. male with significant past medical history of T1DM with recurrent DK A, Schizophrenia, depression who presents with DKA. Per outside records - pt presented to [facility] after several days of "lying on the cou ch." Pt has recently been discharged from his shelter 2/2 marijuana use. Grandmother has rece ntly . Family members thought pt was simply suffering from depression over the pa st few days. Presented to [facility], found to have pH of 6.01 on ABG and CO2 of 5. Transferred to [facility], pt has now received at least 4L [...] 1008) sodium chloride (IV) 1,000 mL/hr (02/06/16 09) sodium chloride (IV) sodium chloride (IV) PRN [...] mmHg (02/06 0850) Heart Rate: [100] 100 (02/05 850) Resp: [22] 22 (02/05 850) SpO2: [100 %] 100 % (02/05 850) Height: [176.5 cm (5' 9.5")] 176.5 cm (5' 9.5") (02/05 850) Weight: [55.974 kg (123 lb 6.4 oz)] 55.974 kg (123 lb 6.4 oz) (02/05 850) BMI (Calculated): [18] 18 (02/05 850) Physical Exam Constitutional: No distress. HENT: Head: [...] | | | Fingerstick | performed at [facility] | | LAB | | | [address];[place], [place] | | | | | | [address] | | | | + + + [...] | | | Fingerstick | performed at [facility];[address] | | LAB | | | | [address];[place] | | | | | | [address] | | | | + + + [...] EXTERNAL | | | | performed at [facility], [address] | K/uL | LAB | | | | [address], | | | | | | [place] [address] | | | | + + + + + + | Non- | 3.53 (L)Comment: Testing | 4.20 - 5.70 | EXTERNAL | | | Red Blood | performed at [facility], [address] | M/uL | LAB | | | Cells | [address], | | | | | Counted | [place] [address] | | | | + + + + + + | Hemoglobin | 11.5 (L)Comment: Testing | 13.2 - 17.0 | EXTERNAL | | | | performed at [facility], [address] | g/dL | LAB | | | | [address], | | | | | | [place] [address] | | | | + + + + + + | Hematocrit, | 32.3 (L)Comment: Testing | 39.0 - 50.0 % | EXTERNAL | | | POC | performed at [facility], [address] | | LAB | | | | [address], | | | | | | [place] [address] | | | | + + + + + + | MCV | 91.6Comment: Testing | 80.0 - 100.0 fl | EXTERNAL | | | | performed at [facility], [address] | | LAB | | | | [address], | | | | | | [place] [address] | | | | + + + + + + | MCH | 32.6Comment: Testing | 27.0 - 34.0 pg | EXTERNAL | | | | performed at [facility], [address] | | LAB | | | | [address], | | | | | | [place] [address] | | | | + + + + + + | MCHC | 35.6 (H)Comment: Testing | 32.0 - 35.5 | EXTERNAL | | | | performed at [facility], [address] | g/dL | LAB | | | | [address], | | | | | | [place] [address] | | | | + + + + + + | RDW-CV | 45.1Comment: Testing | 37 - 53 fl | EXTERNAL | | | | performed at [facility], [address] | | LAB | | | | [address], | | | | | | [place] [address] | | | | + + + + + + | Platelet | 218Comment: Testing | 150 - 400 K/uL | EXTERNAL | | | Count | performed at [facility], [address] | | LAB | | | Plasma | [address], | | | | | | [place] [address] | | | | + + + + + + | MPV | 7.6Comment: Testing | fl | EXTERNAL | | | | performed at [facility], [address] | | LAB | | | | [address], | | | | | | [place] [address] | | | | + + + [...] EXTERNAL | | | | performed at [facility], [address] | | LAB | | | | [address], | | | | | | [place] [address] | | | | + + + [...] EXTERNAL | | | | performed at [facility], [address] | | LAB | | | | [address], | | | | | | [place] [address] | | | | + + + [...] | | | | | [place] [address] | | | | + + + + + + | K | 3.2 (L)Comment: Testing | 3.5 - 4.9 | EXTERNAL | | | | performed at [facility], [address] | mmol/L | LAB | | | | [address], | | | | | | [place] [address] | | | | + + + + + + | Cl | 100Comment: Testing | 99 - 109 mmol/L | EXTERNAL | | | | performed at [facility], [address] | | LAB | | | | [address], | | | | | | [place] [address] | | | | + + + + + + | CO2 | 22 (L)Comment: Testing | 23 - 32 mmol/L | EXTERNAL | | | | performed at [facility], [address] | | LAB | | | | [address], | | | | | | [place] [address] | | | | + + + + + + | Anion Gap | 14Comment: Testing | 5 - 20 mmol/L | EXTERNAL | | | | performed at [facility], [address] | | LAB | | | | [address], | | | | | | [place] [address] | | | | + + + + + + | Glucose, | 282 (H)Comment: Testing | 65 - 99 mg/dL | EXTERNAL | | | Fasting | performed at [facility], [address] | | LAB | | | | [address], | | | | | | [place] [address] | | | | + + + + + + | BUN | 15Comment: Testing | 8 - 25 mg/dL | EXTERNAL | | | | performed at [facility], [address] | | LAB | | | | [address], | | | | | | [place] [address] | | | | + + + + + + | Creatinine | 0.8Comment: Testing | 0.70 - 1.30 | EXTERNAL | | | | performed at [facility], [address] | mg/dL | LAB | | | | [address], | | | | | | [place] [address] | | | | + + + + + + | BUN/Creatin | 19Comment: Testing | | EXTERNAL | | | ine Ratio | performed at [facility], [address] | | LAB | | | | [address], | | | | | | [place] [address] | | | | + + + + + + | Calcium | 7.7 (L)Comment: Testing | 8.5 - 10.5 | EXTERNAL | | | | performed at [facility], [address] | mg/dL | LAB | | | | [address], | | | | | | [place] [address] | | | | + + + + + + | Protein, | 4.8 (L)Comment: Testing | 6.3 - 8.2 g/dL | EXTERNAL | | | Total | performed at [facility], [address] | | LAB | | | | [address], | | | | | | [place] [address] | | | | + + + + + + | Albumin | 2.3 (L)Comment: Testing | 3.6 - 5.0 g/dL | EXTERNAL | | | | performed at [facility], [address] | | LAB | | | | [address], | | | | | | [place] [address] | | | | + + + + + + | Globulin | 2.5Comment: Testing | 1.3 - 4.9 g/dL | EXTERNAL | | | | performed at [facility], [address] | | LAB | | | | [address], | | | | | | [place] [address] | | | | + + + + + + | A/G Ratio | 0.9 (L)Comment: Testing | 1.0 - 2.4 | EXTERNAL | | | | performed at [facility], [address] | | LAB | | | | [address], | | | | | | [place] [address] | | | | + + + + + + | Bilirubin | 0.2Comment: Testing | 0.1 - 1.5 mg/dL | EXTERNAL | | | Total | performed at [facility], [address] | | LAB | | | | [address], | | | | | | [place] [address] | | | | + + + + + + | ALP, | 87Comment: Testing | 35 - 115 U/L | EXTERNAL | | | External | performed at [facility], [address] | | LAB | | | | [address], | | | | | | [place] [address] | | | | + + + + + + | AST | 15Comment: Testing | 10 - 45 U/L | EXTERNAL | | | | performed at [facility], [address] | | LAB | | | | [address], | | | | | | [place] [address] | | | | + + + + + + | ALT | 17Comment: Testing | 10 - 65 U/L | EXTERNAL | | | | performed at [facility], [address] | | LAB | | | | [address], | | | | | | [place] [address] | | | | + + + [...] | | | | | | at [facility], [address] | | | | | | [address], | | | | | | [place] [address] | | | | + + + [...] | | | Fingerstick | performed at [facility];[address] | | LAB | | | | [address];[place], [place] | | | | | | [address] | | | | + + + [...] EXTERNAL | | | | performed at [facility] | | LAB | | | | [address] [facility];[place], [place] | | | | | | [address] | | | | + + + [...] EXTERNAL | | | | performed at [facility];[address] | | LAB | | | | [address];[place] | | | | | | [address] | | | | + + + [...] EXTERNAL | | | | performed at [facility];[address] | mmol/L | LAB | | | | [address];[place] | | | | | | [address] | | | | + + + + + + | K | 3.8Comment: Testing | 3.5 - 4.9 | EXTERNAL | | | | performed at [facility] [place] | mmol/L | LAB | | | | [address];[place] | | | | | | [address] | | | | + + + + + + | Cl | 99Comment: Testing | 99 - 109 mmol/L | EXTERNAL | | | | performed at [facility] [place];[address] | | LAB | | | | [address];[place] | | | | | | [address] | | | | + + + + + + | CO2 | 21 (L)Comment: Testing | 23 - 32 mmol/L | EXTERNAL | | | | performed at [facility] [place];[address] | | LAB | | | | [address];[place] | | | | | | [address] | | | | + + + + + + | Anion Gap | 13Comment: Testing | 5 - 20 mmol/L | EXTERNAL | | | | performed at [facility] [place] | | LAB | | | | [address];[place] | | | | | | [address] | | | | + + + + + + | Glucose, | 241 (H)Comment: Testing | 65 - 99 mg/dL | EXTERNAL | | | Fasting | performed at [facility] [place];[address] | | LAB | | | | [address];[place] | | | | | | [address] | | | | + + + + + + | BUN | 10Comment: Testing | 8 - 25 mg/dL | EXTERNAL | | | | performed at [facility] [place];[address] | | LAB | | | | [address];[place] | | | | | | [address] | | | | + + + + + + | Creatinine | 0.95Comment: Testing | 0.70 - 1.30 | EXTERNAL | | | | performed at [facility] [place];888 | mg/dL | LAB | | | | [address];[place] | | | | | | [address] | | | | + + + + + + | BUN/Creatin | 10Comment: Testing | | EXTERNAL | | | ine Ratio | performed at [facility] [place];[address] | | LAB | | | | [address];[place] | | | | | | [address] | | | | + + + + + + | Calcium | 7.9 (L)Comment: Testing | 8.5 - 10.5 | EXTERNAL | | | | performed at [facility] [place];888 | mg/dL | LAB | | | | [address];[place] | | | | | | [address] | | | | + + + [...] | | | | | | at [facility] [place];[address];[place] [address] | | | | + + + [...] | | | Fingerstick | performed at [facility] [place];[facility] | | LAB | | | | [address];[place], [place] | | | | | | [address] | | | | + + + [...] EXTERNAL | | | | performed at [facility] [place];888 | | LAB | | | | [address];[place], [place] | | | | | | [address] | | | | + + + [...] LAB | | | | performed at [facility] [place];[facility] | | | | | | [address];[place], [place] | | | | | | [address] | | | | + + + [...] EXTERNAL | | | | performed at [facility] [place];888 | mmol/L | LAB | | | | [address];[place] | | | | | | [address] | | | | + + + + + + | K | 3.8Comment: SLT | 3.5 - 4.9 | EXTERNAL | | | | HEMOLYSISTesting | mmol/L | LAB | | | | performed at [facility] [place] | | | | | | [address];[place] | | | | | | [address] | | | | + + + + + + | Cl | 102Comment: Testing | 99 - 109 mmol/L | EXTERNAL | | | | performed at [facility] [place];[address] | | LAB | | | | [address];[place] | | | | | | [address] | | | | + + + + + + | CO2 | 20 (L)Comment: Testing | 23 - 32 mmol/L | EXTERNAL | | | | performed at [facility] [place];[address] | | LAB | | | | [address];[place] | | | | | | [address] | | | | + + + + + + | Anion Gap | 12Comment: Testing | 5 - 20 mmol/L | EXTERNAL | | | | performed at [facility] [place];[address] | | LAB | | | | [address];[place] | | | | | | [address] | | | | + + + + + + | Glucose, | 250 (H)Comment: Testing | 65 - 99 mg/dL | EXTERNAL | | | Fasting | performed at [facility] [place];[address] | | LAB | | | | [address];[place] | | | | | | [address] | | | | + + + + + + | BUN | 8Comment: Testing | 8 - 25 mg/dL | EXTERNAL | | | | performed at [facility] [place];[address] | | LAB | | | | [address];[place] | | | | | | [address] | | | | + + + + + + | Creatinine | 0.83Comment: Testing | 0.70 - 1.30 | EXTERNAL | | | | performed at [facility] [place];888 | mg/dL | LAB | | | | [address];[place] | | | | | | [address] | | | | + + + + + + | BUN/Creatin | 10Comment: Testing | | EXTERNAL | | | ine Ratio | performed at [facility] [place];[address] | | LAB | | | | [address];[place] | | | | | | [address] | | | | + + + + + + | Calcium | 7.8 (L)Comment: Testing | 8.5 - 10.5 | EXTERNAL | | | | performed at [facility] [place];888 | mg/dL | LAB | | | | [address];[place] | | | | | | [address] | | | | + + + [...] | | | | | | at [facility] [place];[address] [place] [address] | | | | | | [facility];[place] [address] | | | | + + + [...] | | | Fingerstick | performed at [facility] [place];888 | | LAB | | | | [address];[place] | | | | | | [address] | | | | + + + [...] EXTERNAL | | | | performed at [facility] [place];888 | | LAB | | | | [address];[place] | | | | | | [address] | | | | + + + [...] EXTERNAL | | | | performed at [facility] [place];888 | | LAB | | | | [address] [facility];[place], [place] | | | | | | [address] | | | | + + + [...] EXTERNAL | | | | performed at [facility] [place];888 | mmol/L | LAB | | | | [address];[place] | | | | | | [address] | | | | + + + + + + | K | 3.3 (L)Comment: Testing | 3.5 - 4.9 | EXTERNAL | | | | performed at [facility] [place];888 | mmol/L | LAB | | | | [address];[place] | | | | | | [address] | | | | + + + + + + | Cl | 106Comment: Testing | 99 - 109 mmol/L | EXTERNAL | | | | performed at [facility] [place];[address] | | LAB | | | | [address];[place] | | | | | | [address] | | | | + + + + + + | CO2 | 16 (L)Comment: Testing | 23 - 32 mmol/L | EXTERNAL | | | | performed at [facility] [place];[address] | | LAB | | | | [address];[place] | | | | | | [address] | | | | + + + + + + | Anion Gap | 14Comment: Testing | 5 - 20 mmol/L | EXTERNAL | | | | performed at [facility] [place];[address] | | LAB | | | | [address];[place] | | | | | | [address] | | | | + + + + + + | Glucose, | 340 (H)Comment: Testing | 65 - 99 mg/dL | EXTERNAL | | | Fasting | performed at [facility] [place];888 | | LAB | | | | [address];[place] | | | | | | [address] | | | | + + + + + + | BUN | 7 (L)Comment: Testing | 8 - 25 mg/dL | EXTERNAL | | | | performed at [facility] [place];888 | | LAB | | | | [address];[place] | | | | | | [address] | | | | + + + + + + | Creatinine | 0.70Comment: Testing | 0.70 - 1.30 | EXTERNAL | | | | performed at [facility] [place];888 | mg/dL | LAB | | | | [address];[place] | | | | | | [address] | | | | + + + + + + | BUN/Creatin | 10Comment: Testing | | EXTERNAL | | | ine Ratio | performed at [facility] [place];888 | | LAB | | | | [address];[place] | | | | | | [address] | | | | + + + + + + | Calcium | 6.9 (L)Comment: Testing | 8.5 - 10.5 | EXTERNAL | | | | performed at [facility] [place];888 | mg/dL | LAB | | | | [address];[place] | | | | | | [address] | | | | + + + [...] | | | | | | at [facility] [place];[address];[place] [address] | | | | + + + [...] | | | Fingerstick | performed at [facility] [place];888 | | LAB | | | | [address];[place] | | | | | | [address] | | | | + + + [...] | | | Fingerstick | performed at [facility] [place];888 | | LAB | | | | [address];[place], [place] | | | | | | [address] | | | | + + + [...] | | | Fingerstick | performed at [facility] [place];888 | | LAB | | | | [address];[place] | | | | | | [address] | | | | + + + [...] | | | Fingerstick | performed at [facility] [place];888 | | LAB | | | | [address];[place], [place] | | | | | | [address] | | | | + + + [...] EXTERNAL | | | | performed at [facility] [place];[facility] | | LAB | | | | [address];[place] | | | | | | [address] | | | | + + + [...] EXTERNAL | | | | performed at [facility] [place];888 | | LAB | | | | [address];[place], [place] | | | | | | [address] | | | | + + + [...] EXTERNAL | | | | performed at [facility] [place];888 | mmol/L | LAB | | | | [address];[place] | | | | | | [address] | | | | + + + + + + | K | 3.1 (L)Comment: Testing | 3.5 - 4.9 | EXTERNAL | | | | performed at [facility] [place];888 | mmol/L | LAB | | | | [address];[place] | | | | | | [address] | | | | + + + + + + | Cl | 107Comment: Testing | 99 - 109 mmol/L | EXTERNAL | | | | performed at [facility] [place];[address] | | LAB | | | | [address];[place] | | | | | | [address] | | | | + + + + + + | CO2 | 16 (L)Comment: Testing | 23 - 32 mmol/L | EXTERNAL | | | | performed at [facility] [place];888 | | LAB | | | | [address];[place] | | | | | | [address] | | | | + + + + + + | Anion Gap | 13Comment: Testing | 5 - 20 mmol/L | EXTERNAL | | | | performed at [facility] [place];[address] | | LAB | | | | [address];[place] | | | | | | [address] | | | | + + + + + + | Glucose, | 173 (H)Comment: Testing | 65 - 99 mg/dL | EXTERNAL | | | Fasting | performed at [facility] [place];888 | | LAB | | | | [address];[place] | | | | | | [address] | | | | + + + + + + | BUN | 7 (L)Comment: Testing | 8 - 25 mg/dL | EXTERNAL | | | | performed at [facility] [place];[address] | | LAB | | | | [address];[place] | | | | | | [address] | | | | + + + + + + | Creatinine | 0.63 (L)Comment: Testing | 0.70 - 1.30 | EXTERNAL | | | | performed at [facility] [place];888 | mg/dL | LAB | | | | [address];[place] | | | | | | [address] | | | | + + + + + + | BUN/Creatin | 11Comment: Testing | | EXTERNAL | | | ine Ratio | performed at [facility] [place];[address] | | LAB | | | | [address];[place] | | | | | | [address] | | | | + + + + + + | Calcium | 7.2 (L)Comment: Testing | 8.5 - 10.5 | EXTERNAL | | | | performed at [facility] [place];888 | mg/dL | LAB | | | | [address];[place], [place] | | | | | | [address] | | | | + + + [...] | | | | | | at [facility] [place];[address];[place] [address] | | | | + + + [...] | | | Fingerstick | performed at [facility] [place];888 | | LAB | | | | [address];[place] | | | | | | [address] | | | | + + + [...] | | | Fingerstick | performed at [facility] [place];888 | | LAB | | | | [address];[place], [place] | | | | | | [address] | | | | + + + [...] | | | Fingerstick | performed at [facility] [place];888 | | LAB | | | | [address];[place] | | | | | | [address] | | | | + + + [...] + + | Historically converted procedure from [facility] environment | EXTERNAL LAB | + [...] | | | Fingerstick | performed at [facility] [place];888 | | LAB | | | | [address];[place] | | | | | | [address] | | | | + + + [...] | | | | | [place] [address] | | | | + + + + + + | Non- | 3.17 (L)Comment: Testing | 4.20 - 5.70 | EXTERNAL | | | Red Blood | performed at [facility], [address] | M/uL | LAB | | | Cells | [address], | | | | | Counted | [place] [address] | | | | + + + + + + | Hemoglobin | 10.2 (L)Comment: Testing | 13.2 - 17.0 | EXTERNAL | | | | performed at [facility], [address] | g/dL | LAB | | | | [address], | | | | | | [place] [address] | | | | + + + + + + | Hematocrit, | 29.6 (L)Comment: Testing | 39.0 - 50.0 % | EXTERNAL | | | POC | performed at [facility], [address] | | LAB | | | | [address], | | | | | | [place] [address] | | | | + + + + + + | MCV | 93.3Comment: Testing | 80.0 - 100.0 fl | EXTERNAL | | | | performed at [facility], [address] | | LAB | | | | [address], | | | | | | [place] [address] | | | | + + + + + + | MCH | 32.0Comment: Testing | 27.0 - 34.0 pg | EXTERNAL | | | | performed at [facility], [address] | | LAB | | | | [address], | | | | | | [place] [address] | | | | + + + + + + | MCHC | 34.3Comment: Testing | 32.0 - 35.5 | EXTERNAL | | | | performed at [facility], [address] | g/dL | LAB | | | | [address], | | | | | | [place] [address] | | | | + + + + + + | RDW-CV | 46.4Comment: Testing | 37 - 53 fl | EXTERNAL | | | | performed at [facility], [address] | | LAB | | | | [address], | | | | | | [place] [address] | | | | + + + + + + | Platelet | 209Comment: Testing | 150 - 400 K/uL | EXTERNAL | | | Count | performed at [facility], [address] | | LAB | | | Plasma | [address], | | | | | | [place] [address] | | | | + + + + + + | MPV | 7.5Comment: Testing | fl | EXTERNAL | | | | performed at [facility], [address] | | LAB | | | | [address], | | | | | | [place] [address] | | | | + + + + + + | Differentia | AUTOMATEDComment: | | EXTERNAL | | | l Type | Testing performed at | | LAB | | | | [facility], [address] | | | | | | [place] | | | | | | [address] | | | | + + + + + + | % Segmented | 78.26Comment: Testing | % | EXTERNAL | | | | performed at [facility], [address] | | LAB | | | Neutrophils | [address], | | | | | | [place], [place] [address] | | | | + + + + + + | % | 14.07Comment: Testing | % | EXTERNAL | | | Lymphocytes | performed at [facility], [address] | | LAB | | | | [address], | | | | | | [place], [place] [address] | | | | + + + + + + | % Monocytes | 6.80Comment: Testing | % | EXTERNAL | | | | performed at [facility], [address] | | LAB | | | | [address], | | | | | | [place], [place] [address] | | | | + + + + + + | % | 0.69Comment: Testing | % | EXTERNAL | | | Eosinophils | performed at [facility], [address] | | LAB | | | | [address], | | | | | | [place] [address] | | | | + + + + + + | % Basophils | 0.18Comment: Testing | % | EXTERNAL | | | | performed at [facility], [address] | | LAB | | | | [address], | | | | | | [place] [address] | | | | + + + + + + | Absolute | 6.75Comment: Testing | 1.90 - 7.40 | EXTERNAL | | | Segmented | performed at [facility], [address] | K/uL | LAB | | | Neutrophils | [address], | | | | | | [place] [address] | | | | + + + + + + | Absolute | 1.21Comment: Testing | 1.00 - 3.90 | EXTERNAL | | | Lymphocytes | performed at [facility], [address] | K/uL | LAB | | | | [address], | | | | | | [place] [address] | | | | + + + + + + | Absolute | 0.59Comment: Testing | 0.00 - 0.80 | EXTERNAL | | | Monocytes | performed at [facility], [address] | K/uL | LAB | | | | [address], | | | | | | [place] [address] | | | | + + + + + + | Absolute | 0.06Comment: Testing | 0.00 - 0.50 | EXTERNAL | | | Eosinophils | performed at [facility], [address] | K/uL | LAB | | | | [address], | | | | | | [place] [address] | | | | + + + + + + | Absolute | 0.02Comment: Testing | 0.00 - 0.10 | EXTERNAL | | | Basophils | performed at [facility], [address] | K/uL | LAB | | | | [address], | | | | | | [place] [address] | | | | + + + [...] EXTERNAL | | | | performed at [facility] [place];888 | | LAB | | | | [address];[place], [place] | | | | | | [address] | | | | + + + [...] EXTERNAL | | | | performed at [facility] [place];[facility] | | LAB | | | | [address];[place], [place] | | | | | | [address] | | | | + + + [...] EXTERNAL | | | | performed at [facility] [place];888 | mmol/L | LAB | | | | [address];[place] | | | | | | [address] | | | | + + + + + + | K | 2.9 (L)Comment: Testing | 3.5 - 4.9 | EXTERNAL | | | | performed at [facility] [place];888 | mmol/L | LAB | | | | [address];[place] | | | | | | [address] | | | | + + + + + + | Cl | 108Comment: Testing | 99 - 109 mmol/L | EXTERNAL | | | | performed at [facility] [place];[address] | | LAB | | | | [address];[place] | | | | | | [address] | | | | + + + + + + | CO2 | 15 (L)Comment: Testing | 23 - 32 mmol/L | EXTERNAL | | | | performed at [facility] [place];[address] | | LAB | | | | [address];[place] | | | | | | [address] | | | | + + + + + + | Anion Gap | 14Comment: Testing | 5 - 20 mmol/L | EXTERNAL | | | | performed at [facility] [place];[address] | | LAB | | | [address];[place] | | | | | | [address] | | | | + + + + + + | Glucose, | 197 (H)Comment: Testing | 65 - 99 mg/dL | EXTERNAL | | | Fasting | performed at [facility] [place];[address] | | LAB | | | | [address];[place] | | | | | | [address] | | | | + + + + + + | BUN | 8Comment: Testing | 8 - 25 mg/dL | EXTERNAL | | | | performed at [facility] [place];[address] | | LAB | | | [address];[place] | | | | | | [address] | | | | + + + + + + | Creatinine | 0.64 (L)Comment: Testing | 0.70 - 1.30 | EXTERNAL | | | | performed at [facility] [place];888 | mg/dL | LAB | | | | [address];[place] | | | | | | [address] | | | | + + + + + + | BUN/Creatin | 12Comment: Testing | | EXTERNAL | | | ine Ratio | performed at [facility] [place];[address] | | LAB | | | [address];[place] | | | | | | [address] | | | | + + + + + + | Calcium | 7.1 (L)Comment: Testing | 8.5 - 10.5 | EXTERNAL | | | | performed at [facility] [place];888 | mg/dL | LAB | | | | [address];[place] | | | | | | [address] | | | | + + + [...] | | | | | | at [facility] [place];[address];[place] [address] | | | | + + + [...] | | | Fingerstick | performed at [facility] [place];[address] | | LAB | | | | [address];[place], [place] | | | | | | [address] | | | | + + + [...] | | | Fingerstick | performed at [facility] [place];[address] | | LAB | | | | [address];[place] | | | | | | [address] | | | | + + + [...] | | | Fingerstick | performed at [facility] [place];[address] | | LAB | | | | [address];[place], [place] | | | | | | [address] | | | | + + + [...] | | | Fingerstick | performed at [facility] [place];888 | | LAB | | | | [address];[place] | | | | | | [address] | | | | + + + [...] EXTERNAL | | | | performed at [facility] [place] [place];88 | | LAB | | | | [address];[place], [place] | | | | | | [address] | | | | + + + [...] EXTERNAL | | | | performed at [facility] [place];[address] | | LAB | | | | [address];[place], [place] | | | | | | [address] | | | | + + + [...] EXTERNAL | | | | performed at [facility] [place];888 | mmol/L | LAB | | | | [address];[place] | | | | | | [address] | | | | + + + + + + | K | 3.0 (L)Comment: Testing | 3.5 - 4.9 | EXTERNAL | | | | performed at [facility] [place];888 | mmol/L | LAB | | | | [address];[place] | | | | | | [address] | | | | + + + + + + | Cl | 108Comment: Testing | 99 - 109 mmol/L | EXTERNAL | | | | performed at [facility] [place] [place];[address] | | LAB | | | | [address];[place] | | | | | | [address] | | | | + + + + + + | CO2 | 14 (LL)Comment: CALLED | 23 - 32 mmol/L | EXTERNAL | | | | TO CODY Swain RN/CATHI AT | | LAB | | | | 0134 BY MWREAD BACK | | | | | | RESULTS VERIFIEDTesting | | | | | | performed at [facility] [place] [place];[address] | | | | | [address];[place] | | | | | | [address] | | | | + + + + + + | Anion Gap | 14Comment: Testing | 5 - 20 mmol/L | EXTERNAL | | | | performed at [facility] [place] [place];[address] | | LAB | | | | [address];[place] | | | | | | [address] | | | | + + + + + + | Glucose, | 213 (H)Comment: Testing | 65 - 99 mg/dL | EXTERNAL | | | Fasting | performed at [facility] [place] | | LAB | | | | [address];[place] | | | | | | [address] | | | | + + + + + + | BUN | 10Comment: Testing | 8 - 25 mg/dL | EXTERNAL | | | | performed at [facility] [place] | | LAB | | | | [address];[place] | | | | | | [address] | | | | + + + + + + | Creatinine | 0.70Comment: Testing | 0.70 - 1.30 | EXTERNAL | | | | performed at [facility] [place] | mg/dL | LAB | | | | [address];[place] | | | | | | [address] | | | | + + + + + + | BUN/Creatin | 14Comment: Testing | | EXTERNAL | | | ine Ratio | performed at [facility] [place] | | LAB | | | | [address];[place] | | | | | | [address] | | | | + + + + + + | Calcium | 6.9 (L)Comment: Testing | 8.5 - 10.5 | EXTERNAL | | | | performed at [facility] [place] [place] | mg/dL | LAB | | | | [address];[place] | | | | | | [address] | | | | + + + [...] | | | | | | at [facility] [place] | | | | | | [address];[place] [address] | | | | + + + [...] | | | Fingerstick | performed at [facility] [place] [facility] [place] | | LAB | | | | [address];[place], [place] | | | | | | [address] | | | | + + + [...] | | | Fingerstick | performed at [facility] [place] [facility] [place] | | LAB | | | | [address];[place], [place] | | | | | | [address] | | | | + + + [...] | | | Fingerstick | performed at [facility] [place] [facility] [place] | | LAB | | | | [address];[place], [place] | | | | | | [address] | | | | + + + [...] EXTERNAL | | | | performed at [facility] [place] [facility] [place] | | LAB | | | | [address];[place] | | | | | | [address] | | | | + + + [...] EXTERNAL | | | | performed at [facility] [place] [facility] [place] | | LAB | | | | [address];[place], [place] | | | | | | [address] | | | | + + + [...] EXTERNAL | | | | performed at [facility] [place] [facility] [place] | mmol/L | LAB | | | | [address];[place] | | | | | | [address] | | | | + + + + + + | K | 3.3 (L)Comment: Testing | 3.5 - 4.9 | EXTERNAL | | | | performed at [facility] [place] | mmol/L | LAB | | | | [address];[place] | | | | | | [address] | | | | + + + + + + | Cl | 111 (H)Comment: Testing | 99 - 109 mmol/L | EXTERNAL | | | | performed at [facility] [place] | | LAB | | | | [address];[place] | | | | | | [address] | | | | + + + + + + | CO2 | 16 (L)Comment: Testing | 23 - 32 mmol/L | EXTERNAL | | | | performed at [facility] [place];888 | | LAB | | | | [address];[place] | | | | | | [address] | | | | + + + + + + | Anion Gap | 13Comment: Testing | 5 - 20 mmol/L | EXTERNAL | | | | performed at [facility] [place];[address] | | LAB | | | | [address];[place] | | | | | | [address] | | | | + + + + + + | Glucose, | 125 (H)Comment: Testing | 65 - 99 mg/dL | EXTERNAL | | | Fasting | performed at [facility] [place];888 | | LAB | | | | [address];[place] | | | | | | [address] | | | | + + + + + + | BUN | 10Comment: Testing | 8 - 25 mg/dL | EXTERNAL | | | | performed at [facility] [place];[address] | | LAB | | | | [address];[place] | | | | | | [address] | | | | + + + + + + | Creatinine | 0.82Comment: Testing | 0.70 - 1.30 | EXTERNAL | | | | performed at [facility] [place];888 | mg/dL | LAB | | | | [address];[place] | | | | | | [address] | | | | + + + + + + | BUN/Creatin | 12Comment: Testing | | EXTERNAL | | | ine Ratio | performed at [facility] [place];[address] | | LAB | | | | [address];[place] | | | | | | [address] | | | | + + + + + + | Calcium | 6.6 (L)Comment: Testing | 8.5 - 10.5 | EXTERNAL | | | | performed at [facility] [place];888 | mg/dL | LAB | | | | [address];[place] | | | | | | [address] | | | | + + + [...] | | | | | | at [facility] [place];[address] [place] [address] | | | | | | [facility];[place] [address] | | | | + + + [...] | | | Fingerstick | performed at [facility] [place];888 | | LAB | | | | [address];[place] | | | | | | [address] | | | | + + + [...] | | | Fingerstick | performed at [facility] [place];888 | | LAB | | | | [address];[place] | | | | | | [address] | | | | + + + [...] | | | Fingerstick | performed at [facility] [place];888 | | LAB | | | | [address];[place] | | | | | | [address] | | | | + + + [...] | | | Fingerstick | performed at [facility] [place];888 | | LAB | | | | [address];[place] | | | | | | [address] | | | | + + + [...] EXTERNAL | | | | performed at [facility] [place];888 | | LAB | | | | [address];[place], [place] | | | | | | [address] | | | | + + + [...] EXTERNAL | | | | performed at [facility] [place];888 | | LAB | | | | [address];[place] | | | | | | [address] | | | | + + + [...] | | LAB | | | | [facility] [place];[address] [place] [address] | | | | | | Blvd;[place] [address] | | | | + + + [...] EXTERNAL | | | | performed at [facility] [place];888 | mmol/L | LAB | | | | [address];[place] | | | | | | [address] | | | | + + + + + + | K | 2.7 (LL)Comment: CALLED | 3.5 - 4.9 | EXTERNAL | | | | NURSING UNITREAD BACK | mmol/L | LAB | | | | RESULTS VERIFIEDIVAN K | | | | | | AT 1748 JGRTesting | | | | | | performed at [facility] [place];888 | | | | | | [address];[place] | | | | | | [address] | | | | + + + + + + | Cl | 110 (H)Comment: Testing | 99 - 109 mmol/L | EXTERNAL | | | | performed at [facility] [place];[address] | | LAB | | | | [address];[place] | | | | | | [address] | | | | + + + + + + | CO2 | 15 (L)Comment: Testing | 23 - 32 mmol/L | EXTERNAL | | | | performed at [facility] [place];888 | | LAB | | | | [address];[place] | | | | | | [address] | | | | + + + + + + | Anion Gap | 15Comment: Testing | 5 - 20 mmol/L | EXTERNAL | | | | performed at [facility] [place];[address] | | LAB | | | | [address];[place] | | | | | | [address] | | | | + + + + + + | Glucose, | 133 (H)Comment: Testing | 65 - 99 mg/dL | EXTERNAL | | | Fasting | performed at [facility] [place];888 | | LAB | | | | [address];[place] | | | | | | [address] | | | | + + + + + + | BUN | 14Comment: Testing | 8 - 25 mg/dL | EXTERNAL | | | | performed at [facility] [place];[address] | | LAB | | | | [address];[place] | | | | | | [address] | | | | + + + + + + | Creatinine | 0.92Comment: Testing | 0.70 - 1.30 | EXTERNAL | | | | performed at [facility] [place];888 | mg/dL | LAB | | | | [address];[place] | | | | | | [address] | | | | + + + + + + | BUN/Creatin | 15Comment: Testing | | EXTERNAL | | | ine Ratio | performed at [facility] [place];[address] | | LAB | | | | [address];[place] | | | | | | [address] | | | | + + + + + + | Calcium | 6.5 (L)Comment: Testing | 8.5 - 10.5 | EXTERNAL | | | | performed at [facility] [place];888 | mg/dL | LAB | | | | [address];[place] | | | | | | [address] | | | | + + + [...] | | | | | | at [facility] [place];[address];[place] [address] | | | | + + + [...] | | | Fingerstick | performed at [facility] [place];888 | | LAB | | | | [address];[place], [place] | | | | | | [address] | | | | + + + [...] | | | Fingerstick | performed at [facility] [place];888 | | LAB | | | | [address];[place], [place] | | | | | | [address] | | | | + + + [...] | | | Fingerstick | performed at [facility] [place];888 | | LAB | | | | [address];[place] | | | | | | [address] | | | | + + + [...] | | | Fingerstick | performed at [facility] [place];888 | | LAB | | | | [address];[place] | | | | | | [address] | | | | + + + [...] EXTERNAL | | | | performed at [facility] [place];888 | | LAB | | | | [address];[place] | | | | | | [address] | | | | + + + [...] EXTERNAL | | | | performed at [facility] [place];888 | | LAB | | | | [address];[place] | | | | | | [address] | | | | + + + [...] | | LAB | | | | [facility] [place];[address] [facility] | | | | | | Blvd;[place] [address] | | | | + + + [...] EXTERNAL | | | | performed at [facility] [place];888 | mmol/L | LAB | | | | [address] [facility];[place], [place] | | | | | | [address] | | | | + + + + + + | K | 3.1 (L)Comment: Testing | 3.5 - 4.9 | EXTERNAL | | | | performed at [facility] [place];888 | mmol/L | LAB | | | | [address];[place] | | | | | | [address] | | | | + + + + + + | Cl | 113 (H)Comment: Testing | 99 - 109 mmol/L | EXTERNAL | | | | performed at [facility] [place];[address] | | LAB | | | | [address];[place] | | | | | | [address] | | | | + + + + + + | CO2 | 7 (LL)Comment: RESULT | 23 - 32 mmol/L | EXTERNAL | | | | READ BACK BY:CHARLES [id number] | | LAB | | | | AT 1340.EAPTesting | | | | | | performed at [facility] [place];[address] | | | | | | [address];[place] | | | | | | [address] | | | | + + + + + + | Anion Gap | 23 (H)Comment: Testing | 5 - 20 mmol/L | EXTERNAL | | | | performed at [facility] [place];[address] | | LAB | | | | [address];[place] | | | | | | [address] | | | | + + + + + + | Glucose, | 206 (H)Comment: Testing | 65 - 99 mg/dL | EXTERNAL | | | Fasting | performed at [facility] [place];888 | | LAB | | | | [address];[place] | | | | | | [address] | | | | + + + + + + | BUN | 18Comment: Testing | 8 - 25 mg/dL | EXTERNAL | | | | performed at [facility] [place];[address] | | LAB | | | | [address];[place] | | | | | | [address] | | | | + + + + + + | Creatinine | 0.84Comment: Testing | 0.70 - 1.30 | EXTERNAL | | | | performed at [facility] [place];888 | mg/dL | LAB | | | | [address];[place] | | | | | | [address] | | | | + + + + + + | BUN/Creatin | 21Comment: Testing | | EXTERNAL | | | ine Ratio | performed at [facility] [place];888 | | LAB | | | | [address];[place] | | | | | | [address] | | | | + + + + + + | Calcium | 6.7 (L)Comment: Testing | 8.5 - 10.5 | EXTERNAL | | | | performed at [facility] [place];888 | mg/dL | LAB | | | | [address];[place] | | | | | | [address] | | | | + + + [...] | | | | | | at [facility] [place];[address] | | | | | | [address];[place] [address] | | | | + + + [...] | | | Fingerstick | performed at [facility] [place];888 | | LAB | | | | [address];[place], [place] | | | | | | [address] | | | | + + + [...] | | | Fingerstick | performed at [facility] [place];[facility] | | LAB | | | | [address];[place] | | | | | | [address] | | | | + + + [...] EXTERNAL | | | | performed at [facility] [place];888 | | LAB | | | | [address];[place] | | | | | | [address] | | | | + + + [...] EXTERNAL | | | | performed at [facility] [place];888 | | LAB | | | | [address];[place] | | | | | | [address] | | | | + + + [...] EXTERNAL | | | | performed at [facility] [place];888 | mmol/L | LAB | | | | [address];[place] | | | | | | [address] | | | | + + + + + + | K | 3.0 (L)Comment: Testing | 3.5 - 4.9 | EXTERNAL | | | | performed at [facility] [place];888 | mmol/L | LAB | | | | [address];[place] | | | | | | [address] | | | | + + + + + + | Cl | 113 (H)Comment: Testing | 99 - 109 mmol/L | EXTERNAL | | | | performed at [facility] [place];888 | | LAB | | | | [address];[place] | | | | | | [address] | | | | + + + + + + | CO2 | 6 (LL)Comment: CALLED | 23 - 32 mmol/L | EXTERNAL | | | | RESULTSREAD BACK RESULTS | | LAB | | | | [id number]/KATIA Scott AT | | | | | | 1110 BY Shan | | | | | | performed at [facility] [place];888 | | | | | | [address];[place] | | | | | | [address] | | | | + + + + + + | Anion Gap | 27 (H)Comment: Testing | 5 - 20 mmol/L | EXTERNAL | | | | performed at [facility] [place];[address] | | LAB | | | | [address];[place] | | | | | | [address] | | | | + + + + + + | Glucose, | 214 (H)Comment: Testing | 65 - 99 mg/dL | EXTERNAL | | | Fasting | performed at [facility] [place];[address] | | LAB | | | | [address];[place] | | | | | | [address] | | | | + + + + + + | BUN | 21Comment: Testing | 8 - 25 mg/dL | EXTERNAL | | | | performed at [facility] [place];[address] | | LAB | | | | [address];[place] | | | | | | [address] | | | | + + + + + + | Creatinine | 0.87Comment: Testing | 0.70 - 1.30 | EXTERNAL | | | | performed at [facility] [place];888 | mg/dL | LAB | | | | [address];[place] | | | | | | [address] | | | | + + + + + + | BUN/Creatin | 24Comment: Testing | | EXTERNAL | | | ine Ratio | performed at [facility] [place];[address] | | LAB | | | | [address];[place] | | | | | | [address] | | | | + + + + + + | Calcium | 6.8 (L)Comment: Testing | 8.5 - 10.5 | EXTERNAL | | | | performed at [facility] [place];888 | mg/dL | LAB | | | | [address];[place] | | | | | | [address] | | | | + + + [...] | | | | | | at [facility] [place];[address] [place] [address] | | | | | | [facility];[place] [address] | | | | + + + [...] | | | Fingerstick | performed at [facility] [place];888 | | LAB | | | | [address];[place] | | | | | | [address] | | | | + + + [...] | | | Fingerstick | performed at [facility] [place];888 | | LAB | | | | [address];[place] | | | | | | [address] | | | | + + + [...] | | LAB | | | | [facility] [place];[address] [place] [address] | | | | | | [address];[place] [address] | | | | + + + [...] EXTERNAL | | | | performed at [facility] [place];888 | K/uL | LAB | | | | [address];[place] | | | | | | [address] | | | | + + + + + + | Non- | 2.80 (L)Comment: Testing | 4.20 - 5.70 | EXTERNAL | | | Red Blood | performed at [facility] [place];888 | M/uL | LAB | | | Cells | [address];[place] | | | | | Counted | [address] | | | | + + + + + + | Hemoglobin | 9.1 (L)Comment: Testing | 13.2 - 17.0 | EXTERNAL | | | | performed at [facility] [place];888 | g/dL | LAB | | | | [address];[place] | | | | | | [address] | | | | + + + + + + | Hematocrit, | 26.7 (L)Comment: Testing | 39.0 - 50.0 % | EXTERNAL | | | POC | performed at [facility] [place];[address] | | LAB | | | | [address];[place] | | | | | | [address] | | | | + + + + + + | MCV | 95.4Comment: Testing | 80.0 - 100.0 fl | EXTERNAL | | | | performed at [facility] [place];[address] | | LAB | | | | [address];[place] | | | | | | [address] | | | | + + + + + + | MCH | 32.3Comment: Testing | 27.0 - 34.0 pg | EXTERNAL | | | | performed at [facility] [place];[address] | | LAB | | | | [address];[place] | | | | | | [address] | | | | + + + + + + | MCHC | 33.9Comment: Testing | 32.0 - 35.5 | EXTERNAL | | | | performed at [facility] [place];888 | g/dL | LAB | | | | [address];[place] | | | | | | [address] | | | | + + + + + + | RDW-CV | 47.3Comment: Testing | 37 - 53 fl | EXTERNAL | | | | performed at [facility] [place];[address] | | LAB | | | | [address];[place] | | | | | | [address] | | | | + + + + + + | Platelet | 190Comment: Testing | 150 - 400 K/uL | EXTERNAL | | | Count | performed at [facility] [place];888 | | LAB | | | Plasma | [address];[place] | | | | | | [address] | | | | + + + + + + | MPV | 7.2Comment: Testing | fl | EXTERNAL | | | | performed at [facility] [place];[address] | | LAB | | | | [address];[place] | | | | | | [address] | | | | + + + + + + | Differentia | MANUALComment: Testing | | EXTERNAL | | | l Type | performed at [facility] [place];[address] | | LAB | | | | [address];[place] | | | | | | [address] | | | | + + + + + + | Segmented | 59Comment: Testing | % | EXTERNAL | | | Neutrophils | performed at [facility] [place];888 | | LAB | | | Manual | [address];[place] | | | | | | [address] | | | | + + + + + + | % Bands | 24Comment: Testing | % | EXTERNAL | | | | performed at [facility] [place];[address] | | LAB | | | | [address];[place] | | | | | | [address] | | | | + + + + + + | % | 2Comment: Testing | % | EXTERNAL | | | Metamyelocy | performed at [facility] [place];888 | | LAB | | | [address]son | [address];[place] | | | | | | [address] | | | | + + + + + + | Lymphocytes | 12Comment: Testing | % | EXTERNAL | | | Manual | performed at [facility] [place];[address] | | LAB | | | | [address];[place] | | | | | | [address] | | | | + + + + + + | Monocytes | 3Comment: Testing | % | EXTERNAL | | | Manual | performed at [facility] [place];[address] | | LAB | | | | [address];[place] | | | | | | [address] | | | | + + + + + + | Absolute | 5.18Comment: Testing | 1.90 - 7.40 | EXTERNAL | | | Neutrophils | performed at [facility] [place];888 | K/uL | LAB | | | | [address];[place] | | | | | | [address] | | | | + + + + + + | Bands | 2.10 (H)Comment: Testing | 0.00 - 0.20 | EXTERNAL | | | Manual | performed at [facility] [place];888 | K/uL | LAB | | | | [address];[place] | | | | | | [address] | | | | + + + + + + | Absolute | 0.18 (H)Comment: Testing | K/uL | EXTERNAL | | | Metamyelocy | performed at [facility] [place] [place];888 | | LAB | | | [address] | [address];[place] | | | | | | [address] | | | | + + + + + + | Absolute | 1.05Comment: Testing | 1.00 - 3.90 | EXTERNAL | | | Lymphocytes | performed at [facility] [place] [place];888 | K/uL | LAB | | | | [address];[place] | | | | | | [address] | | | | + + + + + + | Absolute | 0.26Comment: Testing | 0.00 - 0.80 | EXTERNAL | | | Monocytes | performed at [facility] [place];888 | K/uL | LAB | | | | [address];[place] | | | | | | [address] | | | | + + + + + + | Platelet | ADEQUATEComment: Testing | | EXTERNAL | | | Estimate | performed at [facility] [place];[address] | | LAB | | | | [address];[place] | | | | | | [address] | | | | + + + + + + | RBC | NORMALComment: Testing | | EXTERNAL | | | Morphology | performed at [facility] [place];[address] | | LAB | | | | [address];[place] | | | | | | [address] | | | | + + + [...] | | | | performed at [facility] [place];888 | | | | | | [address] [facility];[place], [place] | | | | | | [address] | | | | + + + [...] | | | | performed at [facility] [place] [place];888 | | | | | | [address];[place], [place] | | | | | | [address] | | | | + + + [...] | EXTERNAL | | | A1c | Montenegrin Diabetes | | LAB | | | [...] | | | | | performed at [facility], [address] | | | | | [address] [facility], | | | | | | [place] [address] | | | | + + + [...] | | | | | performed at [facility], [address] | | | | | | [facility], | | | | | | [place] [address] | | | | + + + [...] | | | | performed at [facility] [place];[facility] | | | | | | [address];[place], [place] | | | | | | [address] | | | | + + + [...] | | | | performed at [facility] [place];888 | | | | | | [address];[place] | | | | | | [address] | | | | + + + [...] | | | | performed at [facility] [place];888 | | | | | | [address];[place] | | | | | | [address] | | | | + + + [...] | | | | performed at [facility] [place] [place];888 | | | | | | [address];[place] | | | | | | [address] | | | | + + + [...] | | | | performed at [facility] [place] [place];888 | | | | | | [address];[place] | | | | | | [address] | | | | + + + + + + | BUN | 15Comment: POOR QUALITY | 8 - 25 mg/dL | EXTERNAL | | | | SPECIMEN FROM THE LINE | | LAB | | | | DRAW, CHARGES CREDITED, | | | | | | PATIENT REDRAWN.Testing | | | | | | performed at [facility] [place];[address] | | | | | | [address];[place] | | | | | | [address] | | | | + + + [...] | | | | performed at [facility] [place];888 | | | | | | [address];[place] | | | | | | [address] | | | | + + + + + + | BUN/Creatin | 26Comment: POOR QUALITY | | EXTERNAL | | | ine Ratio | SPECIMEN FROM THE LINE | | LAB | | | | DRAW, CHARGES CREDITED, | | | | | | PATIENT REDRAWN.Testing | | | | | | performed at [facility] [place];888 | | | | | | [address];[place] | | | | | | [id number] ON 02/05 | | | | | [...] | | | | | | at [facility] [place];[address] [place] [address] | | | | | | Blvd;[place] [address] | | | | + + + [...] | | | Fingerstick | performed at [facility] [place];[facility] | | LAB | | | | [address];[place] | | | | | | [address] | | | | + + + [...]
--- OUTSIDE RECORDS SUMMARY | ~2020-01-12 | XMS | Encounter Summary ---
Demographics + + + | Address | [address] | | | [place] [address] | + + + | Home Phone | | + + + | Preferred Language | Unknown | + + + | Marital Status | Single | + + + | Mormonism Affiliation | 1001 | + + + [...] Team Providers + +------+ + | Care Eyelet Cutter Name | Role | Phone | + [...] + + | 05/07/ | Emergency | [facility] | Adi Castro | Vomiting, | | 2017 | | [facility] | Alexander Craig MD | intractability of | | | | CENTER [address] | [address] | vomiting not | | | | [place], [place] | [place], [place] | specified, presence | | | | [address] | [id number] | of nausea not | | | | [phone] | | specified, | | | | [...] | | | Compound Builder | Shara Christensen and | Device | | 17 | [...] | 0 | 05/03/20 | | | (HUMBE CHRISTENSEN) | the skin 3 times | | [...] + documented as of this encounter ED Salome Pandey RN - 05/07/2017 8:12 AM PSTPt observed walking out of ER. Pt says not ira to staff on his way out. Dr notified. arks, Adi Craig MD - 05/07/2017 7:35 AM PST [facility] Joni Kwon Emergency Department Encounter Note [address] [place] [id number] PCP:DENIS Paul [phone] eMERGENCY dEPARTMENT eNCOUnter CHIEF COMPLAINT Chief Complaint Patient presents with Nausea Emesis TRIAGE ED Triage Notes, ED Triage Notes Balwinder Ahn RN 05/07/2017 7:24 Nausea and emesis, onset this morning, denies diarrhea. HPI Joni Kwon is a 36 y.o. male who presents patient states he got up this morning did not feel right and started vomiting. He states he ate a small amount of breakfast. He did not check his blood sugar. Patient has long history of type I diabetes that is very po lillian controlled. He also has ongoing schizophrenia. He is here for further evaluation. He denies any abdominal pain at this time. He's here for further ongoing nausea. PAST MEDICAL HISTORY Past Medical History: Diagnosis Date ADHD (attention deficit hyperactivity disorder) Depression Unclear of major depression vs bipolar depression Diabetes mellitus (HCC) Type 1 diabetes Schizophrenia (HCC) SURGICAL HISTORY Past Surgical History: Procedure Laterality Date TONSILLECTOMY CURRENT MEDICATIONS Previous Medications ALBUTEROL 90 MCG/PUFF INHALER Inhale 2 puffs into the lungs EVERY 4 TO 6 HOURS NEEDE D for Wheezing. AMBULATORY COMPOUND BUILDER Needle tips that fit Humalog Kwikpen and Lantus Solostar Us es 5 needles a day AMBULATORY COMPOUND BUILDER Stips for Contour Next glucometer disp 100 test 4 times a d ay INSULIN GLARGINE (LANTUS SOLOSTAR) 100 UNITS/ML INJECTION (PEN) Inject 25 Units under t he skin nightly. INSULIN LISPRO (HUMALOG KWIKPEN) 100 UNITS/ML INJECTION (PEN) Inject 5 Units under the skin 3 times daily (with meals). INSULIN LISPRO (HUMALOG KWIKPEN) 100 UNITS/ML INJECTION (PEN) MODERATE CORRECTION SCALE : Blood Glucose (BG) [...] DAY for meals and NIGHT for bedtime ALLERGIES Allergies Allergen Reactions Haloperidol Swelling Shellfish Swelling [...] Social History Narrative None REVIEW OF SYSTEMS Please see HPI, All systems negative except as marked. Twelve point review of system comp leted my me. PHYSICAL EXAM VITAL SIGNS: Temp: 35.8 C (96.4 F) Pulse: 80 Resp: 14 SpO2: 99 % BP: 112/70 Constitutional: Well developed, Well nourished, Non-toxic appearance. Thin poorly kept. HENT: Normocephalic, Atraumatic, Bilateral external ears normal, [...] to palpation or major deformities no eleno. Back:- No tenderness. Neurologic: Alert & oriented x 3, Normal motor function, Normal sensory function, No focal deficits noted, no facial assymetry noted. Equal manager law in all extremities ED COURSE & MEDICAL DECISION MAKING Pertinent Labs & Imaging studies reviewed. (See chart for details) Nursing notes reviewed. Patient refuses further direction here in the emergency room. He was able to tolerate some fluids orally. He refused Zofran for nausea. He walked out of the emergency room without further direction and/or care. At this point he does not appear to be in acute distress. FINAL IMPRESSION 1. Vomiting, intractability of vomiting not specified, presence of nausea not specified, un specified vomiting type Acute Portions of this chart may have been created with [employer] voice recognition software. Occasi onal wrong-word or sound-alike substitutions may have occurred due to the inherent renee itations of voice recognition software. Please read the chart carefully and recognize, using context, where these substitutions have occurred Adi Castro MD 05/07/17 0821 ayes, Zabrina Metcalf RN - 05/07/2017 7:24 AM PSTNausea and emesis, onset this morning, denies diarrhea. documented in this en counter Plan of [...] | | | 07:19? | | | [place] | | | , | | | BENJ[place]RE | | | [place] | | | J?MRN: | | | | | | [id number] | | | [id number] | | | his | | | [...] | | | St. | | | [place] | | | y | | | [...] | | | St. | | | [place] | | | y | | | [...] | | | St. | | | [place] | | | y H. | | [...] | | | St. | | | [place] | | | y H. | | [...] | | | St. | | | [place] | | | y H. | | [...] | | | St. | | | [place] | | | y H. | | [...] | | | St. | | | [place] | | | y H. | | [...] | | | St. | | | [place] | | | y | | | [...] | | | ext. | | | [phone] | | | or go | | [...]
--- OUTSIDE RECORDS SUMMARY | ~2020-01-12 | XMS | Encounter Summary ---
Demographics + + + | Address | [address] | | | [place] [address] | + + + | Home Phone | | + + + | Preferred Language | Unknown | + + + | Marital Status | Single | + + + | Sabianism Affiliation | 1001 | + + + | Race | Unknown | + + + | Ethnic Group | Unknown | + + + Author + + + | Author | [facility] | | | and Ryana | + + + | Organization | [facility] | | [...] Team Providers + +------+ + | Care Telegraph Plant Maintainer Name | Role | Phone | + +------+ + PCP | Unavailable | + +------+ + Encounter Details +--------+ + + + + | Date | Type | Department | Care Team | Description | +--------+ + + + + | 08/23/ | Hospital | [facility] | Shivam Bustos MD | | | 2003 | Encounter | H[facility] [address] [place] [address] | [address] | | | | | [place], [place] | FAMILY [facility]INE | | | | | [address] | [place] [address] | | | | | [phone] | | | +--------+ + + + [...]
--- OUTSIDE RECORDS SUMMARY | ~2020-01-12 | XMS | Encounter Summary ---
Demographics + + + | Address | [address] | | | [place] [address] | + + + | Home Phone [...] Team Providers + +------+ + | Care Composition Molder Name | Role | Phone | + +------+ + PCP | Unavailable | + +------+ + Encounter Details +--------+ + + + + | Date | Type | Department | Care Team | Description | +--------+ + + + + | 06/19/ | [facility] | [facility] | Abhi Berger | | | 2003 | Encounter | [facility] [address] | MD [address] | | | | | [address] | [place], [place] | | | | | [place] [address] | [address] | | | | | [phone] | | | +--------+ + + + [...]
--- OUTSIDE RECORDS SUMMARY | ~2020-01-12 | XMS | Encounter Summary ---
Demographics + + + | Address | [address] | | | [place] [address] | + + + | Home Phone | | + + + | Preferred Language | Unknown | + + + | Marital Status | Single | + + + | Tenriism Affiliation | 1001 | + + + | Race | Unknown | + + + | Ethnic Group | Unknown | + + + Author + + + | Author | [facility] | | | and Ryana | + + + | Organization | [facility] | [...] Team Providers + +------+ + | Care Locksmith Helper Name | Role | Phone | + +------+ + PCP | Unavailable | + +------+ + Encounter Details +--------+ + + + + | Date | Type | Department | Care Team | Description | +--------+ + + + + | 04/07/ | Hospital | [facility] | Ami Young | | | 2008 | Encounter | CONVERSION | A, [facility] [address] | | | | | [address] | [facility] [employer], [place] | | | | [address] | [address] | | | | | [place], [place] | [phone] | | | | | [address] | | | | | | [phone] | | | +--------+ + + + [...]
--- OUTSIDE RECORDS SUMMARY | ~2020-01-12 | XMS | Encounter Summary ---
Demographics + + + | Address | [address] | | | [place] [address] | + + + | Home Phone | | + + + | Preferred Language | Unknown | + + + | Marital Status | Single | + + + | Yarsanism Affiliation | 1001 | + + + [...] Team Providers + +------+ + | Care Healthcare Management Consultant Name | Role | Phone | + +------+ + PCP | Unavailable | + +------+ + Encounter Details +--------+ + + + + | Date | Type | Department | Care Team | Description | +--------+ + + + + | 04/21/ | Hospital | [facility] | Abhi Berger | | | 1999 - | Encounter | [address] | [address] | | | | | [place], [place] | [place], [place] | | | 04/22/ | | [address] | [address] | | | 1999 | | [phone] | | | +--------+ + + + [...]
--- OUTSIDE RECORDS SUMMARY | ~2020-01-12 | XMS | Encounter Summary ---
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
--- OUTSIDE RECORDS SUMMARY | ~2020-01-12 | XMS | Encounter Summary ---
Demographics + + + | Address | [address] | | | [place] [address] | + + + | Home Phone [...] Team Providers + +------+ + | Care Clean Rice Broker Name | Role | Phone | + [...] | treatment not | | | | ARIELA Niño | | carried out due to | | | | WILLIAM Winslow | | patient leaving | | | | [address] | | prior to being seen | | | | [phone] | | by health care | | [...] | | | ON?[birth year]/ | | | [birth year]/201 | | | 7 | | | 11:30? | | | VU | | | , | | | BENJAM | | | [place] | | | J?MRN: | | | | | | [id number] | | | [id number] | | | his | | | [...] | | | St. | | | [place] | | | y | | | [...] | | | St. | | | [place] | | | y H. | | [...] | | | St. | | | [place] | | | y H. | | [...] | | | St. | | | [place] | | | y H. | | [...] | | | St. | | | [place] | | | y H. | | [...] | | | St. | | | [place] | | | y H. | | [...] | | | St. | | | [place] | | | y | | | [...] | | | ext. | | | [phone] | | | or go | | [...]
--- OUTSIDE RECORDS SUMMARY | ~2020-01-12 | XMS | Encounter Summary ---
Demographics + + + | Address | [address] | | | [place] [address] | + + + | Home Phone | | + + + | Preferred Language | Unknown | + + + | Marital Status | Single | + + + | Roman Catholic Affiliation | 1001 | + + + [...] Team Providers + +------+ + | Care Manuscript Editor Name | Role | Phone | [...] | | | | | ([facility]) | | | | | | [...] | | | | | ([facility]) | | | +--------+--------+ + + + + Encounter Details +--------+ + + + + | Date | Type | Department | Care Team | Description | +--------+ + + + + | 09/26/ | Hospital | [facility] | Juanjose Ross MD | Diabetic | | 2017 - | Encounter | [facility] | [address] | ketoacidosis without | | | | [address] | [place] | coma associated | | 09/28/ | | [place] [id number] | [id number] | with type 1 diabetes | | 2017 | | [phone] | | mellitus (HCC) | | | | | Yancy Barron MD | (Primary Dx); | | | | | [address] | Hyperkalemia; Acute | | | | | [place] | renal failure, | | | | | [id number] | unspecified acute | | | | [...] PM PDT DISCHARGE SUMMARY Patient Name: Joni Kwno : 1980 Date of Admission: 09/26/2016 Date [...] week. 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 aka: LANTUS insulin lispro 100 units/mL injection (cartridge) Inject 2 Units under the skin 3 times daily (before meals). Plus sliding scale. aka: humaLOG Discontinued Medications aspirin 81 mg chewable tablet YK-Dtoqugoqyghmi-Pcfqqvbnttxua 10-5-325 MG Caps HYDROcodone-acetaminophen 5-325 mg per tablet aka: NORCO STRATTERA 100 MG capsule Generic drug: atoMOXetine Studies With Pending Results: None Greater than 30 minutes were spent on discharge and coordination of post-hospital care. Electronically signed by: Yancy Barron MD, 09/28/2016 13:20 [facility] documented in this enc ounter Discharge [...] of this encounter Progress Notes Hannah Mijares, PharmD - 09/27/2016 8:00 PM PDTFormatting of [...] [x] Pharmacy list names: Anthony Morris [] [facility] ARCHITECTURE DRAFTER (Prescription Monitoring Program) [x] [employer] insurance reported [...] Marijuana lungs 3 times weekly unknown Other: Cliff reports patient appears non-compliant with his medications. Medication: Prior to Admission Sig: Patient taking differently FAMILY PARTNER as: Atomoxetine 100 mg 1 tablet every morning Pt states taking but last filled for 30 day suppl y in June [facility]-Kspfzhkohhndd-Fvsopqjdfmbbj 10-5-325 mg 1 capsule daily as needed [...] performed and electronically signed by Luis Araujo, Galley Boy 017 19:12 Reviewed by: Hannah Mijares PHARMD 09/27/2016 19:55 documented in this encounter H&P Notes Juanjose Ross MD - 09/27/2016 12:14 AM PDT [facility] HISTORY AND PHYSICAL Pt. Name/Age/: [...] Take 100 mg by mouth every morning. QT-Shvunzqxpmbtw-Zobskzzudgzfe 10-5-325 MG CAPS Take 1 capsule by [...] signed by: Juanjose Ross MD 09/27/2016 3:31 [facility] documented in this enc ounter Consult Notes [...] Needs: (based on 55 kg) Kcal needs: 9242-0429 Kcals/day Protein needs:65-80 grams of protein/day Fluid goal:5480-0242 cc fluid per day Nutrition Diagnosis: Severe [...] in 3 days. Available as needed, ext [phone] Assessment: Diet Order: For your reference, current, [...] by: HENRY JACOBS RDN, CDE 09/27/2016 15:11 SABELAriaarie , Ursula Young RN - 09/27/2016 12:01 PM PDTAssociated Order(s): IP CONSULT TO CARPET SEWER manager requirements Patricia called to request strips for this [...] Take 100 mg by mouth every morning. BF-THVPLBTTDUJAQ-UUHMWTSVKYWLQ 10-5-325 MG CAPS Take 1 capsule by [...] by me Rhythm: Sinus tachycardia Rate: 115 [place]: normal Ectopy: none Conduction: normal ST Segments: [...] - Amy Dorado - 09/28/2016 1:54 PM PDTJoni will discharge today. He wi ll not have any needs. His mom will transport him home. Electronically signed by: Amy Dorado 09/28/2016 13:56 lan of Jesus - Magnolia Jane RN - 09/28/2016 3:48 AM PDTProblem: Patient [...] consultation initiated. - Pt will be instructed division director light use, room lighting will be maintained [...] consultation initiated. - Pt will be instructed division director light use, room lighting will be maintained appopriately, r oom will be kept clutter free. grippy socks will be used when out of bed. RESTRAINT-RELATED GOALS: STRATEGIES TO ACHIEVE RESTRAINT GOALS: Outcome: Improving Goal Evaluation: Insulin drip off around 10 am. Requesting small frequent snacks. VSS. Glucose prior to d inner 383, covered per SS insulin. To transfer to [address] [place] [address] on telemetry. Report to Hira Vyas RN [...] Outcomes: Patient seemed to be appreciative of field crew chief's visit. Spiritual Goals / Follow-up: Will see the patient as requested. If there are any other spiritual care issues that arise, please contact field crew chief. lan of Care - Ursula Haskins RN [...] see inpatient consult completed today. lan of [facility] - Patricia Matos RN - 09/27/2016 11:36 AM PDTProblem: Discharge Planning Goal: Patient will be discharged in a safe manner Outcome: Unchanged This CM met with patient briefly to begin his discharge plan process. He did confirm that his PCP is DENIS Diallo, in [place], [place], and that is where both his mother and he stay. When asking him if his mother was going to transport him home, he stated he was not sure at this time. He just has been admitted so CM will work with him at a later time regarding where he will be going and with what transport. He does have [facility] Medicaid. He states that he has [...] need to address patient's food issues. Per business center representative, patient stated that he d oes not have enough food. Electronically signed by: Patricia Matos RN 09/27/2016 11:36 nterim Summary - Moraima rose - Yancy Barron MD - 09/27/2016 7:51 AM PDT Addendum [...] ST. | [address] | [place], [place] | [phone] | | [facility] | | [address] | | | - LABORATORY | | [...] [address] | [place] | [phone] | | [facility] | | [address] | | | - LABORATORY | | [...] (H) | 70 - 109 mg/dL | [facility] | | | | | | [facility] | | | | | | MEDICAL | | | | | | CENTER - | | | | | | LABORATORY | | + + + + + + | BUN | 16 | 7 - 18 mg/dL | [facility] | | | | | | ST. [...] not | >60Comment: GLOMERULAR | >=60 | [facility] | | | | FILTRATION | mL/min/1.73m2 | [facility] | | | [place] | RATE,ESTIMATED | | MEDICAL | | | | mL/min/1.21e5Qsyr than | | CENTER - | | [...] [address] | [place] | [phone] | | [facility] | | [address] | | | - LABORATORY | | [...] [address] | [place] | [phone] | | [facility] | | [address] | | | - LABORATORY | | [...] + | [facility] | [address] | [place] | [phone] | | [facility] | | [address] | | | - LABORATORY | | [...] | | | POC | | | [facility] | | | | | | [...] + | [facility] | [address] | [place] | [phone] | | [facility] | | [address] | | | - LABORATORY | | [...] [address] | [place] | [phone] | | [facility] | | [address] | | | - LABORATORY | | [...] [address] | [place] | [phone] | | [facility] | | [address] | | | - LABORATORY | | [...] (H) | 7 - 18 mg/dL | [facility] | | | | | | [facility] | | | | | | MEDICAL | | | | | | CENTER - | | | | | | LABORATORY | | + + + + + + | Creatinine | 1.21 | 0.60 - 1.30 | [facility] | | | | | [...] mL/min/1.73m2 | [facility] | | | [place] | RATE,ESTIMATED | | MEDICAL | | | | mL/min/1.25b2Ihoc than | | CENTER - | | [...] [address] | [place] | [phone] | | [facility] | | [address] | | | - LABORATORY | | [...] [address] | [place] | [phone] | | [facility] | | [address] | | | - LABORATORY | | [...] + | [facility] | [address] | [place] | [phone] | | [facility] | | [address] | | | - LABORATORY | | [...] (H) | 70 - 109 mg/dL | [facility] | | | | | | [facility] | | | | | | MEDICAL | | | | | | CENTER - | | | | | | LABORATORY | | + + + + + + | BUN | 18 | 7 - 18 mg/dL | [facility] | | | | | | [facility] | | | | | | MEDICAL | | | | | | CENTER - | | | | | | LABORATORY | | + + + + + + | Creatinine | 1.11 | 0.60 - 1.30 | [facility] | | | | | [...] mL/min/1.73m2 | [facility] | | | [place] | RATE,ESTIMATED | | MEDICAL | | | | mL/min/1.06z3Irtd than | | CENTER - | | [...] [address] | [place] | [phone] | | [facility] | | [address] | | | - LABORATORY | | [...] - 1.030 | [facility] | | | [place], | | | [facility] | | [...] [address] | [place] | [phone] | | [facility] | | [address] | | | - LABORATORY | | [...] + | [facility] | [address] | [place] | [phone] | | [facility] | | [address] | | | - LABORATORY | | [...] ST. | [address] | [place] | [phone] | | [facility] | | [address] | | | - LABORATORY | | [...] | | FILTRATION | mL/min/1.73m2 | [facility] | | | [place] | RATE,ESTIMATED | | MEDICAL | | | | mL/min/1.76f0Dtfb than | | CENTER - | | [...] + | [facility] | [address] | [place], [place] | [phone] | | [facility] | | [address] | | | - LABORATORY | | [...] | | | POC | | | [facility] | | | | | | [...] [address] | [place] | [phone] | | [facility] | | [address] | | | - LABORATORY | | [...] ST. | [address] | [place] | [phone] | | [facility] | | [address] | | | - LABORATORY | | | | + + + + + Phosphorus (09/27/2016 7:27 AM PDT) + +-------+ + + + | Component | Value | Ref Range | Performed | Pathologist | | | | | At | Signature | + +-------+ + + + | Phosphorus | 2.7 | 2.5 - 4.6 mg/dL | [facility] | | | | [...] [address] | [place] | [phone] | | [facility] | | [address] | | | - LABORATORY | | [...] + | [facility] | [address] | [place] | [phone] | | [facility] | | [address] | | | - LABORATORY | | [...] not | 56 (L)Comment: | >=60 | [facility] | | | | GLOMERULAR FILTRATION | mL/min/1.73m2 | [facility] | | | [place] | RATE,ESTIMATED | | MEDICAL | | | | mL/min/1.77z2Qdcf than | | CENTER - | | [...] [address] | [place] | [phone] | | [facility] | | [address] | | | - LABORATORY | | [...] [address] | [place] | [phone] | | [facility] | | [address] | | | - LABORATORY | | [...] | | | POC | | | [facility] | | | | | | [...] + | [facility] | [address] | [place] | [phone] | | [facility] | | [address] | | | - LABORATORY | | | | + + + + + Phosphorus (09/27/2016 5:08 AM PDT) + +-------+ + + + | Component | Value | Ref Range | Performed | Pathologist | | | | | At | Signature | + +-------+ + + + | Phosphorus | 3.0 | 2.5 - 4.6 mg/dL | [facility] [...] + | [facility] | [address] | [place] | [phone] | | [facility] | | [address] | | | - LABORATORY | | [...] + | [facility] | [address] | [place] | [phone] | | [facility] | | [address] | | | - LABORATORY | | [...] 1.72 (H) | 0.60 - 1.30 | [facility] | | | | | mg/dL | [facility] | | | | | | MEDICAL | | | | | | CENTER - | | | | | | LABORATORY | | + + + + + + | eGFR if not | 45 (L)Comment: | >=60 | [facility] | | | | GLOMERULAR FILTRATION | mL/min/1.73m2 | [facility] | | | [place] | RATE,ESTIMATED | | MEDICAL | | | | mL/min/1.67l5Brwr than | | CENTER - | | [...] [address] | [place] | [phone] | | [facility] | | [address] | | | - LABORATORY | | [...] | + + + + + | [facility] | [address] | [place] | [phone] | | [facility] | | [address] | | | - LABORATORY | | [...] | | POC | | | [facility] | | | | | | [...] [address] | [place] | [phone] | | [facility] | | [address] | | | - LABORATORY | | [...] + | [facility] | [address] | [place] | [phone] | | [facility] | | [address] | | | - LABORATORY | | | | + + + + + Magnesium (09/27/2016 3:16 AM PDT) + +-------+ + + + | Component | Value | Ref Range | Performed | Pathologist | | | | | At | Signature | + +-------+ + + + | Magnesium | 2.3 | 1.8 - 2.5 mg/dL | [facility] [...] [address] | [place] | [phone] | | [facility] | | [address] | | | - LABORATORY | | [...] not | 41 (L)Comment: | >=60 | [facility] | | | | GLOMERULAR FILTRATION | mL/min/1.73m2 | [facility] | | | [place] | RATE,ESTIMATED | | MEDICAL | | | | mL/min/1.64n2Ylyf than | | CENTER - | | [...] [address] | [place] | [phone] | | [facility] | | [address] | | | - LABORATORY | | [...] | | Cells | | M/uL | [facility] | | | | | [...] [address] | [place] | [phone] | | [facility] | | [address] | | | - LABORATORY | | [...] [address] | [place] | [phone] | | [facility] | | [address] | | | - LABORATORY | | [...] [address] | [place] | [phone] | | [facility] | | [address] | | | - LABORATORY | | [...] [address] | [place] | [phone] | | [facility] | | [address] | | | - LABORATORY | | [...] + + | Performing | Address | City/State[facility] | Phone Number | | Organization | | | | + + + + + | [facility] | [address] | [place] | [phone] | | [facility] | | [address] | | | - LABORATORY | | [...] + | [facility] | [address] | [place] | [phone] | | [facility] | | [address] | | | - LABORATORY | | [...] not | 39 (L)Comment: | >=60 | [facility] | | | | GLOMERULAR FILTRATION | mL/min/1.73m2 | [facility] | | | [place] | RATE,ESTIMATED | | MEDICAL | | | | mL/min/1.77j1Wdzy than | | CENTER - | | [...] [address] | [place] | [phone] | | [facility] | | [address] | | | - LABORATORY | | [...] [address] | [place] | [phone] | | [facility] | | [address] | | | - LABORATORY | | [...] + | [facility] | [address] | [place] | [phone] | | [facility] | | [address] | | | - LABORATORY | | [...] MD | | | | | | ([id number]) on 09/27/2016 | | | | | [...] + | [facility] | [address] | [place] | [phone] | | [facility] | | [address] | | | - LABORATORY | | [...] [address] | [place] | [phone] | | [facility] | | [address] | | | - LABORATORY | | [...] | LABORATORY | | | | Jalen Steve | | | | + + + [...] (H) | 7 - 18 mg/dL | [facility] | | | | | | [facility] | | | | | | MEDICAL | | | | | | CENTER - | | | | | | LABORATORY | | + + + + + + | Creatinine | 2.25 (H) | 0.60 - 1.30 | [facility] | | | | | mg/dL | [facility] | | | | | | MEDICAL | | | | | | CENTER - | | | | | | LABORATORY | | + + + + + + | eGFR if not | 33 (L)Comment: | >=60 | [facility] | | | | GLOMERULAR FILTRATION | mL/min/1.73m2 | [facility] | | | [place] | RATE,ESTIMATED | | MEDICAL | | | | mL/min/1.04p0Yphv than | | CENTER - | | [...] + | [facility] | [address] | [place], [place] | [phone] | | [facility] | | [address] | | | - LABORATORY | | [...] | | Eosinophils | | K/uL | [facility] | [...] ST. | [address] | [place] | [phone] | | [facility] | | [address] | | | - LABORATORY | | [...] [address] | [place] | [phone] | | [facility] | | [address] | | | - LABORATORY | | [...] + | [facility] | [address] | [place] | [phone] | | [facility] | | [address] | | | - LABORATORY | | [...] ST. | [address] | [place] | [phone] | | [facility] | | [address] | | | - LABORATORY | | [...] [address] | [place] | [phone] | | [facility] | | [address] | | | - LABORATORY | | [...] [address] | [place] | [phone] | | [facility] | | [address] | | | - LABORATORY | | [...] [address] | [place] | [phone] | | [facility] | | [address] | | | - LABORATORY | | [...] | | | | | | | 0742-9480 Use NIGHT DOSE for | | | | | | | doses scheduled: HS, 3AM, | | | | | | | Nighttime [id number], | | | | | | + [...] | | | | | NPO, Daytime 1537-1445 Use NIGHT | | | | | | | DOSE for doses scheduled: | | | | | | | HS, 3AM, Nighttime [id number], | | | | | | + [...] PDT | | | | | ONCE, [facility] 09/26/16 at 2305, For 1 | [...] PDT | | | | | ONCE, [facility] 09/26/16 at 2355, For 1 | [...] | mL/hr | | | Intravenous, ONCE, [facility] 09/27/16 at | | AM PDT | [...]
--- OUTSIDE RECORDS SUMMARY | ~2020-01-12 | XMS | Encounter Summary ---
Demographics + + + | Address | [address] | | | [place] [address] | + + + | Home Phone [...] + | Author | [facility] | | | and Ryana | + + + | Organization | [facility] | | | and [...] Team Providers + +------+ + | Care Linseed Cake Trimmer Name | Role | Phone | + [...] + + | 05/07/ | Hospital | [facility] | Vicky Méndez | Diabetic | | 2017 - | Encounter | MED CTR ICU [address] | MD Diane [address] | ketoacidosis without | | | | [place], | [address] [place], | coma associated | | 05/09/ | | [place] [address] | [place] [address] | with type 1 diabetes | | 2017 | | [phone] | [phone] | mellitus (HCC) | | | | | | (Primary Dx); | | | | | Dougie Yin MD | Nausea; IDDM | | | | | [address] | (insulin dependent | | | | | [place], [place] | diabetes mellitus) | | | | | [address] | (HCC) | | | | | [...] might be different fr om the original. [place] HOSPITALIST DISCHARGE SUMMARY Pt. Name/Age/: Joni [...] compliance (patient reports not checking glucose l evcosmo) Patient presented with nausea and vomiting. Patient [...] information: [address] [place] [address] DENIS Paul In 1 week. Specialty: Family Nurse Practitioner Contact information: [address] [place] [address] Condition: Patient being discharged with condition improved Diet: Carb control diet Less than 30 minutes were spent on discharge and coordination of post-hospital care. Electronically signed by: Dougie Yin MD, 05/09/2017 8:42 Located within [facility] Portions of this chart may have been created with Floqq voice recognition software. Occasi onal wrong-word or sound-alike substitutions may have occurred due to the inherent renee itations of voice recognition software. Please read the chart carefully and recognize, using context, where these substitutions have occurred documented in this encounter Discharge Instructions Instructions Dougie Yin MD - 05/09/2017Paula Kwon, You presented with nausea and vomiting. [...] | | | Compound Builder | Shara Jamalkat and | Device | | 17 | 9 | | | Lincoln Pryorar | | | | | | | [...] 0 | 05/03/20 | | | (LANAGUSTINA SOLKENIAAR) | under the skin every | | [...] might be different fr om the original. [place] HOSPITALIST PROGRESS NOTE Patient: Joni Kwon : 1980: Age: 36 y.o. MedRec: [id number] Admission date: 05/07/2017 Hospital day # : [...] Procedure Component Value Units Date/Time Culture, MRSA [[id number]] Collected: 05/07/17 6653 Order Status: Completed Lab Status: Final result Updated: 05/08/17 8632 Specimen: Respiratory from Nares Culture Negative for [...] PPX: HSQ Dougie Yin MD 05/09/2017 7:57 [facility] Dougie Crawford MD - 05/08/2017 7:43 AM PST [facility] PRO[facility] Patient: Joni Kwon : 1980: Age: 36 y.o. MedRec: [id number] Admission date: 05/07/2017 Hospital day # : [...] on (Adult Protocol) 0-101.2 Units/hr Intravenous Titrated Jnoi Davis MD 1.3 mL/hr at 05/08/17 0711 [...] significant change Confirmed by CARYN THORPE, HAWA ([id number]) on 05/08/2017 7:10:41 AM Basic Metabolic Panel [...] Procedure Component Value Units Date/Time Culture, MRSA [[id number]] Collected: 05/07/171730 Order Status: Sent Lab Status: [...] PPX: HSQ Dougie Yin MD 05/08/2017 7:43 [facility] Romelia Henry Pha rmD - 05/07/2017 4:17 [...] and directions X Pharmacy list names: [facility] [place] [facility] [place] [facility] [place] [facility]UCK OPERATOR (Prescription Monitoring Program) X [employer] insurance [...] Medication review performed and electronically signed by Mroenita García, Tests Superintendent 05/07 16:12 Reviewed by Romelia Valdez, PharmD 05/07/2017 16:16 documented in thi s encounter H&P Notes Dougie Yin MD - 05/07/2017 4:38 PM PSTFormatting of this note might be different fr om the original. [place] HOSPITALIST HISTORY & PHYSICAL Patient: Joni Kwon : 1980: Age: 36 y.o. MedRec: [id number] Admission date: 05/07/2017 Hospital day # : 0 Physician author: Dougie Yin MD Today: 05/07/2017 CHIEF COMPLAINT: Nausea/Emesis HISTORY OF PRESENT ILLNESS: This is a 36 y.o. male with a history of DMI, Schizophrenia who presents with nausea and vo miting. The patient reports waking up in the morning and feeling nauseous. The patient lives across the street at [facility] and while walking to the hospital [...] resolution of DKA FEN: NPO PPX: HSQ [facility] Documentation I expect this patient will be hospitalized for greater than 2-midnights and expect the post -hospital plan to be discharge to home or to an adult foster home. Electronically signed by: Dougie Yin MD 05/07/2017 16:38 Located within [facility] documented in this e ncounter ED Notes Vicky Méndez MD - 05/07/2017 1:06 PM PSTFormatting of this note might be diffe rent from the original. [facility] Joni Kwon Emergency Department Encounter Note [address] [place] [address] PCP:DENIS Paul [phone] CHIEF COMPLAINT: Chief Complaint Patient presents with Emesis ED Room: [address] [place] [address] Joni Kwon is a 36 y.o. male [...] were reviewed along with EMS notes and senior living record s if applicable. (See chart for [...] Paul. Specialty: Family Nurse Practitioner Contact information: [address], [address] [place] [address] Current Discharge Medication List Vicky Méndez MD 05/07/17 2972 Demetria, Liat Ro RN - 05/07/2017 12:09 [...] of back pain as originally told to sports clerk. documented in this encounter Miscellaneous Notes [...] per their request. Brody Menendez CM from [facility] in [facility] and spoke to Joni this morning [...] for nausea, elevated blood sugar l evels. Director Of Labor Relations visit was part of routine rounding. Spiritual Evaluation: Patient was a little groggy when I entered the room and introduced myself; he roused and wa s quite conversational. He is grateful for the care he is receiving while here, and asked me to pray for God's provision for a place to live. He is listed in the patient census as havi ng no moravian preference, but his speech was indicative of some Bahai background and v alues. Spiritual Interventions: I [...] was a ttempting to go back to [place] via the [place] the other day but was too charlee seous to go and ended up in our ER. He said that Brody Menendez, [facility] [place], [place], was expecting to pick him up at [facility] to make arrangements for a stud apartm ent in [place]. He said that until they had an apartment arranged for him he will stay wit h either family or friends. I obtained Joni's permission to call Brody Menendez and let hi m know that he is in the hospital and what his anticipated discharge plan is. I also obtain ed his permission to call his Mom. I called Brody ([phone]) and left a message requestholger rodas a return call. I then called his Mom, Blossom Kwon ([phone]) and she said that she would be able to come pick him up and transfer him home after discharge if [facility], [facility]. I let her know that [...] the Discharge Summary to his PCP at ([phone]). Joni also said that he will need more strips for his glucom eter. He uses the [facility] located in [place], [place]. He had no other questions or needs at this time. I will follow up tomorrow. Electronically signed by: Krystal Bradley RN 05/08/2017 14:15 I received a call from Brody Menendez from [employer] [employer] and he said that he would call Blossom cerna and coordinate a meeting for himself and Joni either tomorrow or Friday. He also sa id that he would assist with helping him make his follow up appointments with his PCP. Elec tronically signed by: Krystal Bradley RN 05/08/2017 17:07 [facility] of [facility] Tamika Killian RN - 05/08/2017 10:53 AM [...] SCD pumps, continuous education provided. lan of Jesus Cassandra Reeves RN - 05/08/2017 6:08 AM [...] - 05/07/2017 4:34 PM PSTDischarge Planning: This CUPOLA HOIST OPERATOR came to the ED to speak with Kamari. Kamari is a homeless gentleman, that is originally from [place]. He is currently living in [facility] Kamari reports he is diabetic and has a glucometer @ the [facility] (not sure this is true because he could not report his blood glucose reading to the RN during t). He reports he has been [facility] and Schizophrenia. Kamari reports [facility] cut him of f when of his mental health medications but he could not tell me which. Kamari's PCP is in [facility] as well. Kamari has not decided if he will stay in or return to [place]. His mother lives in [facility]. I explained to Kamari proper ED usage (which does not apply to him today as he will be admitte d for DKA). I offered assistance with a glucometer- he refused. I offered setting him up with a PCP in [place]- he refused. CM to follow up prior [...] + +--------+ + + + | EXTRA HUGOENDER TOP | Routin | 05/08/2017 | | [...] [address] | [place] | [phone] | | [facility] | | [address] | | | - LABORATORY | | [...] [address] | [place] | [phone] | | [facility] | | [address] | | | - LABORATORY | | [...] + | [facility] | [address] | [place] | [phone] | | [facility] | | [address] | | | - LABORATORY | | [...] | | FILTRATION | mL/min/1.73m2 | [facility] | | | [place] | RATE,ESTIMATED | | MEDICAL | | | | mL/min/1.91o3Fivw than | | CENTER - | | [...] | | | | mg/dL | [facility] | | | | [...] [address] | [place] | [phone] | | [facility] | | [address] | | | - LABORATORY | | [...] COVERAGE SS | [facility] | | [facility] | [facility] | | | - LABORATORY | + + + + + + + + | Performing | Address | City/State/Zipcode | Phone Number | | Organization | | | | + + + + + | [facility] | [address] | [place] | [phone] | | [facility] | | [address] | | | - LABORATORY | | [...] [address] | [place] | [phone] | | [facility] | | [address] | | | - LABORATORY | | [...] + | [facility] | [address] | [place] | [phone] | | [facility] | | [address] | | | - LABORATORY | | [...] | 0.82 | 0.60 - 1.30 | [facility] | | | | | mg/dL | [facility] | | | | | | MEDICAL | | | | | | CENTER - | | | | | | LABORATORY | | + + + + + + | eGFR if not | >60Comment: GLOMERULAR | >=60 | [place] | | | | FILTRATION | mL/min/1.73m2 | [facility] | | | [place] | RATE,ESTIMATED | | MEDICAL | | | | mL/min/1.43l0Awwn than | | CENTER - | | [...] | | | | mg/dL | [facility] | | | | [...] + | [facility] | [address] | [place] | [phone] | | [facility] | | [address] | | | - LABORATORY | | [...] mL/min/1.73m2 | [facility] | | | [place] | RATE,ESTIMATED | | MEDICAL | | | | mL/min/1.73w3Xukr than | | CENTER - | | [...] ST. | [address] | [place], [place] | [phone] | | [facility] | | [address] | | | - LABORATORY | | [...] [address] | [place] | [phone] | | [facility] | | [address] | | | - LABORATORY | | [...] [address] | [place] | [phone] | | [facility] | | [address] | | | - LABORATORY | | [...] [address] | [place] | [phone] | | [facility] | | [address] | | | - LABORATORY | | [...] [address] | [place] | [phone] | | [facility] | | [address] | | | - LABORATORY | | [...] [address] | [place] | [phone] | | [facility] | | [address] | | | - LABORATORY | | [...] mL/min/1.73m2 | [facility] | | | [place] | RATE,ESTIMATED | | MEDICAL | | | | mL/min/1.87h4Alez than | | CENTER - | | [...] [address] | [place] | [phone] | | [facility] | | [address] | | | - LABORATORY | | [...] [address] | [place] | [phone] | | [facility] | | [address] | | | - LABORATORY | | [...] + | [facility] | [address] | [place] | [phone] | | [facility] | | [address] | | | - LABORATORY | | [...] [address] | [place] | [phone] | | [facility] | | [address] | | | - LABORATORY | | [...] | mL/min/1.73m2 | [facility] | | | [place] | RATE,ESTIMATED | | MEDICAL | | | | mL/min/1.17e8Tznn than | | CENTER - | | [...] [address] | [place] | [phone] | | [facility] | | [address] | | | - LABORATORY | | [...] [address] | [place] | [phone] | | [facility] | | [address] | | | - LABORATORY | | [...] [address] | [place] | [phone] | | [facility] | | [address] | | | - LABORATORY | | [...] ST. | [address] | [place], [place] | [phone] | | [facility] | | [address] | | | - LABORATORY | | [...] [address] | [place] | [phone] | | [facility] | | [address] | | | - LABORATORY | | [...] + | [facility] | [address] | [place] | [phone] | | [facility] | | [address] | | | - LABORATORY | | | | + + + + + POC Glucose (05/08/2017 12:59 AM PST) + +---------+ + + + | Component | Value | Ref Range | Performed | Pathologist | | | | | At | Signature | + +---------+ + + + | Glucose, | 221 (H) | 70 - 109 mg/dL | [facility] | | | POC | | | [...] [address] | [place] | [phone] | | [facility] | | [address] | | | - LABORATORY | | [...] [address] | [place] | [phone] | | [facility] | | [address] | | | - LABORATORY | | [...] (H) | 7 - 18 mg/dL | [place] | | | | | | [facility] | | | | | | MEDICAL | | | | | | CENTER - | | | | | | LABORATORY | | + + + + + + | Creatinine | 1.18 | 0.60 - 1.30 | [place] | | | | | mg/dL | [facility] | | | | | | MEDICAL | | | | | | CENTER - | | | | | | LABORATORY | | + + + + + + | eGFR if not | >60Comment: GLOMERULAR | >=60 | [place] | | | | FILTRATION | mL/min/1.73m2 | [facility] | | | [place] | RATE,ESTIMATED | | MEDICAL | | | | mL/min/1.47a3Nvvo than | | CENTER - | | [...] + | [facility] | [address] | [place] | [phone] | | [facility] | | [address] | | | - LABORATORY | | [...] [address] | [place] | [phone] | | [facility] | | [address] | | | - LABORATORY | | [...] [address] | [place] | [phone] | | [facility] | | [address] | | | - LABORATORY | | [...] + | [facility] | [address] | [place] | [phone] | | [facility] | | [address] | | | - LABORATORY | | [...] not | 50 (L)Comment: | >=60 | [facility] | | | | GLOMERULAR FILTRATION | mL/min/1.73m2 | [facility] | | | [place] | RATE,ESTIMATED | | MEDICAL | | | | mL/min/1.01u5Bxrq than | | CENTER - | | [...] + | [facility] | [address] | [place] | [phone] | | [facility] | | [address] | | | - LABORATORY | | [...] [address] | [place] | [phone] | | [facility] | | [address] | | | - LABORATORY | | [...] + | [facility] | [address] | [place] | [phone] | | [facility] | | [address] | | | - LABORATORY | | [...] [address] | [place] | [phone] | | [facility] | | [address] | | | - LABORATORY | | [...] not | 42 (L)Comment: | >=60 | [facility] | | | | GLOMERULAR FILTRATION | mL/min/1.73m2 | [facility] | | | [place] | RATE,ESTIMATED | | MEDICAL | | | | mL/min/1.13h9Pkvj than | | CENTER - | | [...] | | | | | mg/dL | [facility] | | | | | | MEDICAL [...] [address] | [place] | [phone] | | [facility] | | [address] | | | - LABORATORY | | [...] + | [facility] | [address] | [place], [place] | [phone] | | [facility] | | [address] | | | [...] | | | | HAWA RUBIN MD ([id number]) | | | | | | on [...] [address] | [place] | [phone] | | [facility] | | [address] | | | - LABORATORY | | [...] + | [facility] | [address] | [place] | [phone] | | [facility] | | [address] | | | - LABORATORY | | [...] + | [facility] | [address] | [place] | [phone] | | [facility] | | [address] | | | - LABORATORY | | [...] | [employer] | | | [facility] | | | | | [...] [address] | [place] | [phone] | | [facility] | | [address] | | | - LABORATORY | | [...] (H) | 7 - 18 mg/dL | [facility] | | | | | | [facility] | | | | | | MEDICAL | | | | | | CENTER - | | | | | | LABORATORY | | + + + + + + | Creatinine | 1.69 (H) | 0.60 - 1.30 | [place] | | | | | mg/dL | [facility] | | | | | | MEDICAL | | | | | | CENTER - | | | | | | LABORATORY | | + + + + + + | eGFR if not | 46 (L)Comment: | >=60 | [place] | | | | GLOMERULAR FILTRATION | mL/min/1.73m2 | [facility] | | | [place] | RATE,ESTIMATED | | MEDICAL | | | | mL/min/1.96r7Jict than | | CENTER - | | [...] + | [facility] | [address] | [place] | [phone] | | [facility] | | [address] | | | - LABORATORY | | [...] | | Cells | | M/uL | [facility] | | | | | | MEDICAL | | | | | | CENTER - | | | | | | LABORATORY | | + + + + + + | Hemoglobin | 15.1 | 13.5 - 18.0 | [facility] | | | | | g/dL | [facility] | | | | [...] + | [facility] | [address] | [place] | [phone] | | [facility] | | [address] | | | - LABORATORY | | [...] [address] | [place] | [phone] | | [facility] | | [address] | | | - LABORATORY | | [...] [address] | [place] | [phone] | | [facility] | | [address] | | | - LABORATORY | | [...] | | | | | NPO, Daytime 8545-3677 Use NIGHT | | | | | | | DOSE for doses scheduled: | | | | | | | HS, 3AM, Nighttime [id number], | | | | | | + [...] PM PST | | | | | 05/07/17 at 1515, For 1 dose | | [...]
--- OUTSIDE RECORDS SUMMARY | ~2020-01-12 | XMS | Encounter Summary ---
Demographics + + + | Address | [address] | | | [place] [address] | + + + | Home Phone [...] Providers + +------+ + | Care Manager Demand Name | Role | Phone | + +------+ + PCP | Unavailable | + +------+ + Encounter Details +--------+ + + + + | Date | Type | Department | Care Team | Description | +--------+ + + + + | 12/19/ | Hospital | [facility] | Zeus Wilcox MD, | | | 1999 - | Encounter | [place] [address] | [address] [place] [address] | | | | | [place], [place] | [place] [address] | | | 12/21/ | | [address] | [phone] | | | 1999 | | [phone] | | | +--------+ + + + [...]
--- OUTSIDE RECORDS SUMMARY | ~2020-01-12 | XMS | Encounter Summary ---
Demographics + + + | Address | [address] | | | [place] [address] | + + + | Home Phone [...] Team Providers + +------+ + | Care Perfusionist Name | Role | Phone | + +------+ + PCP | Unavailable | + +------+ + Encounter Details +--------+ + + + + | Date | Type | Department | Care Team | Description | +--------+ + + + + | 04/06/ | [facility] | [place] | Abhi Berger | | | 2003 | Encounter | FAMILY MEDICINE [address] | MD [address] | | | | | [address] | [place], [place] | | | | | [place] [address] | [address] | | | | | [phone] | | | +--------+ + + + [...]
--- OUTSIDE RECORDS SUMMARY | ~2020-01-12 | XMS | Encounter Summary ---
Demographics + + + | Address | [address] | | | [place] [address] | + + + | Home Phone | | + + + | Preferred Language | Unknown | + + + | Marital Status | Single | + + + | Church Affiliation | [id number] | + + + [...] Team Providers + +------+ + | Care Threader Operator Name | Role | Phone | [...] | | | | | | | ([facility]) | | | | | | | [...] | | | | | | | ([facility]) | | | +--------+--------+ + + + + Encounter Details +--------+ + + + + | Date | Type | Department | Care Team | Description | +--------+ + + + + | 06/20/ | Hospital | [facility] | ColemanSunilmelani Mcclain, | Diabetic | | 2016 - | Encounter | MED CTR ICU [address] | [address] | ketoacidosis without | | | | [place], | [place], [place] | coma associated | | 06/21/ | | [place] [address] | [id number] | with other specified | | 2015 | | [phone] | | diabetes mellitus | | | | | Kevin Gifford MD | ([facility]) (Primary Dx); | | | | | [address] | Diabetic | | | | | [place], [place] | ketoacidosis without | | | | | [address] | coma associated | | | | | | with type 1 diabetes | | | | | | mellitus ([facility]) | +--------+ + + + + Social [...] days. 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 What changed: Another medication with the same name was removed. Continue taking this medi cation, and follow the directions you see here. aka: LANTUS Unchanged Medications Details aspirin 81 mg chewable tablet Take 81 mg by mouth Daily. SN-Nfxbnnymqsdhk-Fxccjyxohjvqi 10-5-325 MG Caps Take 1 capsule by [...] signed by: Santino Blake MD, 06/21/2016 17:44 [facility] documented in this enc ounter Medications [...] | | 0 | | | | IE-Jzsdwllwqfiqt-Dpo | mouth Daily as | | | [...] of this encounter Progress Notes Ayala Han, [facility] - 06/20/2016 9:53 PM PSTFormatting of this note might be different fro m the original. PHARMACY SERVICES: ADMISSION MEDICATION REVIEW Joni Kwon is a 35 y.o. male admitted on 06/20/2016. Patient is not a reliable historian. Patient preferred pharmacies closed. Med history techn rose will call 06/21/2016 @ 8482 to obtain current medication list and update STEEL SAMPLER medicatio ns as necessary. Location of Patient [...] Prior to Admission Sig: Patient taking differently STEEL SAM[employer]ER as: Insulin Glargine 100 u/ml 15 units nightly 9 units in the morning and 6 units in the evenin g Medication added: Medication: Prior to Admission Sig: ZX-Ejkfnftexhavg-Xanwzvberpnkg 10-5-325 mg 1 cap daily as needed for sinus congestion Medication review performed and electronically signed by Luis Araujo, Supervisor [employer] 06/20 21:44 Reviewed by Ayala Han Jeannette 06/20/2016 21:53 documented in this en counter H&P Notes Kevin Gifford MD - 06/20/2016 11:07 PM PSTFormatting of this note might be different fro m the original. [place] HOSPITALIST HISTORY & PHYSICAL Patient: Joni Kwon : 1980: Age: 35 y.o. MedRec: [id number] PCP: DENIS Paul Admission date: 06/20/2016 Hospital [...] meal time (not large amounts) was in [facility] for DKA got out Friday and this morning () felt groggy and took he thinks to elizabeth le Lantus and fell back to sleep then later woke up with above CC and had mom drive him to [facility] (his choice) found to be in [...] notations, if any, will be noted below. (nyyeotebar) HOME MEDICATIONS: Previous Medications ASPIRIN 81 MG CHEWABLE TABLET Take 81 mg by mouth Daily. ATOMOXETINE (STRATTERA) 100 MG CAPSULE Take 100 mg by mouth every morning. XS-KNKYCRNQLFHAX-CEVVULVGDDUGB 10-5-325 MG CAPS Take 1 capsule by [...] mouth every morning. Taking Histori cristobal Provider, VC-Wcuhknqkjittw-Qybhonlclojjt 10-5-325 MG CAPS Take 1 capsule by [...] (before meals). Per sliding scale. 06/20/2016 Historical Provider, Note neither list of medicines will show [...] for input(s): IRON, TIBC, PCTSAT, FERRITIN, TSH, OZMCFEFU10, FOLATE in the last 168 hours. Inflammatory [...] ABG No results for input(s): PHART, PO2ART, RQK7MEH, IOR6SYI, BEART, I5PGOASU in the last 168 h ours. No results for input(s): SPECSOURCE, PHPOCB, PCO2, PO2, HCO3, TCO2, BEART, DXOH3CJB in the last 168 hours. Drug of [...] summarized old records scant here nothing from [place] yet but RN was to r equest ASSESSMENT: (meyprob vs meyprobap) Principal Problem: Diabetic ketoacidosis without coma associated with type 1 diabetes sebastian Active [facility] Problems Diagnosis Diabetic ketoacidosis without coma associated with type 1 diabetes mellitus Just got out of [facility] for DKA 2 days ago [...] (dot meyaddendum tdnorefesh nownorefresh) (dot meytime meycritical) [facility] Documentation I expect this patient will be hospitalized for greater than 2-midnights and expect the post -hospital plan to be discharge to home or to an adult foster home. Electronically signed by: Kevin Gifford MD 06/20/2016 23:07 [facility] (meyaddendum tdnorefesh nownorefresh) Portions of this chart may have been created with [employer] voice recognition software. Occasi onal wrong-word or [...] sugar. He was just discharged out of [facility] where he was r eportedly [...] Mom and Dad were at the beds sue and also participated in this conversation. 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 Joni states she has been with [...] DENIS Diallo and he states he uses [facility] or [facility] pharmacies. His mom will [...] BMP Q4H. D Triage Notes - Kendra Finnegan, ERIKA - 06/20/2016 7:17 PM PSTPt c/o BLE swelling with pitting edema, hi gh blood sugars at home (too high to read here), and chest pain. Was d/c from [facility] on Friday with DKA. documented in [...] [address] | [place] | [phone] | | [facility] | | [address] | | | - LABORATORY | | [...] | 0.65 | 0.60 - 1.30 | [facility] | | | | | mg/dL | [facility] | | | | | | MEDICAL | | | | | | CENTER - | | | | | | LABORATORY | | + + + + + + | eGFR if not | >60Comment: GLOMERULAR | >=60 | [facility] | | | | FILTRATION | mL/min/1.73m2 | [facility] | | | [place] | RATE,ESTIMATED | | MEDICAL | | | | mL/min/1.42g0Nbwl than | | CENTER - | | [...] + | [facility] | [address] | [place] | [phone] | | [facility] | | [address] | | | - LABORATORY | | [...] [address] | [place] | [phone] | | [facility] | | [address] | | | - LABORATORY | | [...] | | | mg/dL | [facility] | | | | | | MEDICAL | | | | | | CENTER - | | | | | | LABORATORY | | + + + + + + | eGFR if not | >60Comment: GLOMERULAR | >=60 | [facility] | | | | FILTRATION | mL/min/1.73m2 | [facility] | | | [place] | RATE,ESTIMATED | | MEDICAL | | | | mL/min/1.91a2Emoh than | | CENTER - | | [...] | 8.4 | 8.3 - 10.5 | [facility] | | | | | mg/dL | [facility] | | | | | [...] [address] | [place] | [phone] | | [facility] | | [address] | | | - LABORATORY | | [...] | | | POC | | | [facility] | | | | | [...] + | [facility] | [address] | [place] | [phone] | | [facility] | | [address] | | | - LABORATORY | | [...] [address] | [place] | [phone] | | [facility] | | [address] | | | - LABORATORY | | [...] [address] | [place] | [phone] | | [facility] | | [address] | | | - LABORATORY | | [...] | 0.74 | 0.60 - 1.30 | [place] | | | | | mg/dL | [facility] | | | | | | MEDICAL | | | | | | CENTER - | | | | | | LABORATORY | | + + + + + + | eGFR if not | >60Comment: GLOMERULAR | >=60 | [facility] | | | | FILTRATION | mL/min/1.73m2 | [facility] | | | [place] | RATE,ESTIMATED | | MEDICAL | | | | mL/min/1.32h4Jdlk than | | CENTER - | | [...] + | [facility] | [address] | [place] | [phone] | | [facility] | | [address] | | | - LABORATORY | | [...] + | [facility] | [address] | [place] | [phone] | | [facility] | | [address] | | | - LABORATORY | | [...] + | [facility] | [address] | [place] | [phone] | | [facility] | | [address] | | | - LABORATORY | | [...] ST. | [address] | [place], [place] | [phone] | | [facility] | | [address] | | | - LABORATORY | | | | + + + + + POC Glucose (06/21/2016 12:18 AM PST) + +-------+ + + + | Component | Value | Ref Range | Performed | Pathologist | | | | | At | Signature | + +-------+ + + + | Glucose, | 79 | 70 - 150 mg/dL | [facility] [...] + | [facility] | [address] | [place] | [phone] | | [facility] | | [address] | | | - LABORATORY | | [...] | 0.64 | 0.60 - 1.30 | [facility] | | | | | mg/dL | [facility] | | | | | | MEDICAL | | | | | | CENTER - | | | | | | LABORATORY | | + + + + + + | eGFR if not | >60Comment: GLOMERULAR | >=60 | [facility] | | | | FILTRATION | mL/min/1.73m2 | [facility] | | | [place] | RATE,ESTIMATED | | MEDICAL | | | | mL/min/1.80u9Rjge than | | CENTER - | | [...] + | [facility] | [address] | [place] | [phone] | | [facility] | | [address] | | | - LABORATORY | | [...] | Urine | | Yellow, Straw | [facility] | | | | | | MEDICAL | | | | | | CENTER - | | | | | | LABORATORY | | + + + + + + | Clarity, | Clear | Clear | [facility] | | | Urine | | | [facility] | | [...] - 1.030 | [facility] | | | [place], | | | [facility] | | [...] Urine | Urine Culture Not | | JOSEPH | | | Comment | Indicated | [...] [address] | [place] | [phone] | | [facility] | | [address] | | | - LABORATORY | | [...] [address] | [place] | [phone] | | [facility] | | [address] | | | - LABORATORY | | [...] + | [facility] | [address] | [place] | [phone] | | [facility] | | [address] | | | - LABORATORY | | [...] | | | | | | [employer] | | | | | [...] [address] | [place] | [phone] | | [facility] | | [address] | | | - LABORATORY | | [...] [address] | [place] | [phone] | | [facility] | | [address] | | | - LABORATORY | | [...] + | [facility] | [address] | [place] | [phone] | | [facility] | | [address] | | | - LABORATORY | | [...] mL/min/1.73m2 | [facility] | | | [place] | RATE,ESTIMATED | | MEDICAL | | | | mL/min/1.05k1Ngcv than | | CENTER - | | [...] ST. | [address] | [place], [place] | [phone] | | [facility] | | [address] | | | - LABORATORY | | [...] + | [facility] | [address] | [place] | [phone] | | [facility] | | [address] | | | - LABORATORY | | [...] + | [facility] | [address] | [place] | [phone] | | [facility] | | [address] | | | - LABORATORY | | [...] | | | | HAWA RUBIN MD ([id number]) | | | | | | on [...] [address] | [place] | [phone] | | [facility] | | [address] | | | - LABORATORY | | [...] + | [facility] | [address] | [place] | [phone] | | [facility] | | [address] | | | - LABORATORY | | [...] [address] | [place] | [phone] | | [facility] | | [address] | | | - LABORATORY | | [...] 18 | 7 - 18 mg/dL | [facility] | | | | | | [facility] | | | | | | MEDICAL | | | | | | CENTER - | | | | | | LABORATORY | | + + + + + + | Creatinine | 1.09 | 0.60 - 1.30 | [facility] | | | | | mg/dL | [facility] | | | | | | MEDICAL | | | | | | CENTER - | | | | | | LABORATORY | | + + + + + + | eGFR if not | >60Comment: GLOMERULAR | >=60 | [facility] | | | | FILTRATION | mL/min/1.73m2 | [facility] | | | [place] | RATE,ESTIMATED | | MEDICAL | | | | mL/min/1.60q9Yvdi than | | CENTER - | | [...] + | [facility] | [address] | [place] | [phone] | | [facility] | | [address] | | | - LABORATORY | | [...] [address] | [place] | [phone] | | [facility] | | [address] | | | - LABORATORY | | [...] | [employer] | | | [facility] | | | | | | MEDICAL [...] [address] | [place] | [phone] | | [facility] | | [address] | | | - LABORATORY | | [...] [address] | [place] | [phone] | | [facility] | | [address] | | | - LABORATORY | | [...] [address] | [place] | [phone] | | [facility] | | [address] | | | - LABORATORY | | [...] [address] | [place] | [phone] | | [facility] | | [address] | | | - LABORATORY | | [...] ST. | [address] | [place] | [phone] | | [facility] | | [address] | | | - LABORATORY | | [...] | | | | Pharmacist Lupe Tilley, [facility] | | | | | [...] | | | | | NPO, Daytime 9521-2597 Use NIGHT | | | | | | | DOSE for doses scheduled: | | | | | | | HS, 3AM, Nighttime 1357-9159, | | | | | | + [...] | | | | | | Starting [facility] 06/20/16 at 1940 | | | | [...] PST | | | | | ONCE, [facility] 06/20/16 at 1940, For 1 | | [...]
--- OUTSIDE RECORDS SUMMARY | ~2020-01-12 | XMS | Encounter Summary ---
Demographics + + + | Address | [address] | | | [place] [address] | + + + | Home Phone [...] + + + | Author | [facility] | | | and Ryana | + + + | Organization | [facility] | | [...] Team Providers + +------+ + | Care Sales Ledger Administrator Name | Role | Phone | + +------+ + PCP | Unavailable | + +------+ + Encounter Details +--------+ + + + + | Date | Type | Department | Care Team | Description | +--------+ + + + + | 03/11/ | Hospital | [facility] | Shivam Garzon | | | 2003 | Encounter | [facility] | DO [address] | | | | | [facility] [place] | [place], [place] | | | | | [address] | [address] | | | | | [phone] | | | +--------+ + + + [...]
--- OUTSIDE RECORDS SUMMARY | ~2020-01-12 | XMS | Encounter Summary ---
Demographics + + + | Address | [address] | | | [place] [address] | + + + | Home Phone | | + + + | Preferred Language | Unknown | + + + | Marital Status | Single | + + + | Catholic Affiliation | [id number] | + + [...] Team Providers + +------+ + | Care Consultants Intern Name | Role | Phone | [...] | | | | | | | ([facility]) | | | +--------+--------+ + + + + Encounter Details +--------+ + + + + | Date | Type | Department | Care Team | Description | +--------+ + + + + | 05/01/ | Hospital | [facility] | Venkatesh Gomez, | Diabetic | | 2017 - | Encounter | MED CTR SURGICAL | [address] | ketoacidosis without | | | | [address] [place] | [facility] [place] | coma associated | | 05/03/ | | [place] [address] | [place] [address] | with type 1 diabetes | | 2016 | | [phone] | [phone] | mellitus (HCC) | | | | | | (Primary Dx) | | | | | Juanjose Ross MD | | | | | | [address] | | | | | | [place], [place] | | | | | | [address] | | | | | | | | | | | | Kevin Gifford MD | | | | | | [address] | | | | | | [place], [place] | | | | | | [address] | | | | | | | [...] might be different fro m the original. [facility] [place] [facility]PITAL[place] DISCHARGE SUMMARY Pt. Name/Age/: Joni Kwon [...] and when to take each. aka: humaLOG KWAMPARO Unchanged Medications Details albuterol 90 mcg/puff inhaler [...] rodas out of needles used lesser dose Lanchristoph says has insurance coverage and uses [facility] kyleigh garcia living at [facility] past month and not have his glucometer [...] needles for his pens uses [facility] landon ulrich e RN also give needles and pens used here (at least 50 needles) LIves at [facility] Most recent weight: Input and [...] signed by: Kevin Gifford MD, 05/03/2017 11:48 formerly [facility] Reference. This is NOT part of [...] this chart may have been created with [employer] voice recognition software. Occasi onal wrong-word or [...] cannot be sent through Care Everywhere.Diabetes, Diet (Qatari)Diabetes, General Information (Qatari)Diabetes, Healthy Meals for (Qatari)Diabete s, Meal Planning (Qatari)Diabetes: Shopping for and Preparing Meals (Qatari)documented in this encounter Medications at Time of [...] | | | Compound Builder | Shara Sanderssavannakat and | Device | | 17 | [...] might be different fro m the original. [facility] [place] HOSPITALIST PROGRESS NOTE Patient: Joni Kwon : 1980: Age: 36 y.o. MedRec: [id number] PCP: DENIS Paul Admission date: 05/01/2017 Hospital [...] for input(s): IRON, TIBC, PCTSAT, FERRITIN, TSH, [id number], FOLATE in the last 168 hours. Inflammatory [...] -- -- -- 50* Recent Labs Lab 05/01/172256 [...] Lab 05/01/172346 BEART -3.0* Recent Labs Lab 11/09/17 2347 SPECSOURCE Vein PHPOCB 7.377 PCO2 37.1 PO2 57.1* HCO3 21.8 TCO2 22.9 BEART -3.0* [id number] 89* Drug of overdose and abuse Recent [...] Procedure Component Value Units Date/Time Culture, MRSA [[id number]] Collected: 05/02/17 020 Order Status: Completed Lab Status: Final result [...] NPH bridge this morning, he admits was runmarijatyler g out of needles used lesser dose Lantus says has insurance coverage and uses [facility] has haydee eetyler living [facility] past month and not have his glucometer [...] here (at least 50 needles) LIves at [facility] (dot meyaddendum tdnorefesh nownorefresh) (dot meytime meycritical meysign) Kevin Gifford MD 05/03/2017 11:27 [facility] Reference. This is NOT part of [...] this chart may have been created with [employer] voice recognition software. Occasi onal wrong-word or sound-alike substitutions may have occurred due to the inherent renee itations of voice recognition software. 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 MedRec: [id number] PCP: DENIS Paul Admission date: 05/01/2017 Hospital [...] for input(s): IRON, TIBC, PCTSAT, FERRITIN, TSH, [id number], FOLATE in the last 168 hours. Inflammatory markers No results for input(s): LACTATE, PROCALCITONI, CRP, ESR in the last 168 hours. Chemistry Recent Labs Lab 05/02/17 0355 05/02/17 0207 05/01/172256 GLU 159* 370* 986* NA 140 132* [...] 2347 BEART -3.0* Recent Labs Lab 05/01/17 234 SPECSOURCE Vein PHPOCB 7.377 PCO2 37.1 PO2 57.1* HCO3 21.8 TCO2 22.9 BEART -3.0* [id number] 89* Drug of overdose and abuse Recent [...] Procedure Component Value Units Date/Time Culture, MRSA [[id number]] Collected: 05/02/17201 Order Status: Sent Lab Status: [...] NPH bridge this morning, he admits was runnin g out of needles used lesser dose Lantus says has insurance coverage and uses [facility] has haydee garcia living at [facility] past month and not have his glucometer [...] his pens uses [facility] LIves at [facility] (dot meyaddendum tdnorefesh nownorefresh) (dot meytime meycritical meysign) Kevin Gifford MD 05/02/2017 6:48 [facility] Reference. This is NOT part of [...] this chart may have been created with [employer] voice recognition software. Occasi onal wrong-word or sound-alike substitutions may have occurred due to the inherent renee itations of voice recognition software. Please read the chart carefully and recognize, using context, where these substitutions have occurred documented in this en counter H&P Notes Juanjose Ross MD - 05/02/2017 1:06 AM PST [facility] HISTORY AND PHYSICAL Pt. [...] signed by: Juanjose Ross MD 05/02/2017 2:07 formerly [facility] documented in this enc ounter Consult [...] he is homeless and staying at the [facility] somet imes his meals are unpredictable. [...] might be different f rom the original. [facility] Joni Kwno Emergency Department Encounter Note [address] [place] [id number] PCP:Shavon Covington, DENIS [phone] CHIEF COMPLAINT Chief Complaint Patient presents [...] teaching. Pt he [facility], mother is planning to c ome pick him up shortly. IV removed. Pt has all paperwork. Will continue to monitor. Call [facility] within reach. lan of Care - [...] ough patient states treatment is helpful. lan [facility] - Mavis Borges RN - 05/02/2017 4:32 [...] time of assessment. Able to ambulate to with out assist. Steady gait note d. Scabs noted on shins. Pt states to be a smoker, exp wheezing noted. Denies SOB. Monitorin g BS at 1600 was 273 will administer insulin as order. Pt using call light. Bed alarm in [facility] ce for safety. Call light within reach. Will continue to monitor. eICU Note - Elmira Metcalf RN - 05/02/2017 3:20 PM PSTPatient transferred to room 318. Report given to Hanny JAMES. lan of [facility] - Kavita Matos RN - 05/02/2017 12:28 PM PSTProblem: Discharge Planning Goal: Patient will be discharged in a safe manner Outcome: Improving This CM met with patient to discuss his d/c plan. He has been staying at the [facility] for about 1/2 month and is [...] Diallo, at the walk in clinic in [place], and that it has been 2 months ago that he has seen her. He does not wish this CM to make an appt [facility] e he is not sure when he could get there. He is working with [employer] in [place] to find housing. Assisted him to leave a message t here with his payee, Lauren Tr, at [employer], p# [phone]. He also requested that t his CM contact his mother to let her know that he is here and that he wishes to talk with he r. Called [phone], and spoke with Ms Kwon, and let her know that Kamari was here and she wanted to know what room he was in, so will either call or come and visit him today. Called Ursula, Esol Instructor, and she brought up some pen tips for patient and also a glu cometer with 10 strips. Let him know that his mother will either call or visit him today. Went over the" Where to go for Help" brochure with patient and highlighted the resources fo r meals and pantry's. He really appreciated this information. He will just be walking back to the [facility] at discharge. CM to follow for any further discharge needs.Electronically signed by: Patricia Matos RN 2016 12:28 lan of [facility] - Dayo Negron RRT - 05/02/2017 11:54 [...] increased with treatment. Nonproductive cough. lan of [facility] - Ursula Ellsworth RN - 05/02/2017 8:33 AM PSTProblem: Diabetes, [...] J?MRN: | | | | | | [id number] | | | [id number] | | | his | | | [...] | | | St. | | | [place] | | | y | | | [...] | | | St. | | | [place] | | | y | | | [...] | | | St. | | | [place] | | | y H. | | [...] | | | St. | | | [place] | | | y H. | | [...] | | | St. | | | [place] | | | y H. | | [...] | | | St. | | | [place] | | | y H. | | [...] | | | St. | | | [place] | | | y H. | | [...] | | | St. | | | [place] | | | y | | | [...] | | | ext. | | | [address] | | | or go | | [...] | | | [place] | | | [facility], | | | [place] - | [...] [address] | [place] | [phone] | | [facility] | | [address] | | | - LABORATORY | | [...] | | | | | g/dL | [facility] | | | | | [...] + | [facility] | [address] | [place] | [phone] | | [facility] | | [address] | | | - LABORATORY | | [...] mL/min/1.73m2 | [facility] | | | [facility] | RATE,ESTIMATED | | MEDICAL | | | | mL/min/1.41l9Wirb than | | CENTER - | | [...] [address] | [place] | [phone] | | [facility] | | [address] | | | - LABORATORY | | [...] [address] | [place] | [phone] | | [facility] | | [address] | | | - LABORATORY | | [...] | | | POC | | | [facility] | | | | | | MEDICAL [...] + | [facility] | [address] | [place] | [phone] | | [facility] | | [address] | | | - LABORATORY | | [...] [address] | [place] | [phone] | | [facility] | | [address] | | | - LABORATORY | | [...] + | [facility] | [address] | [place] | [phone] | | [facility] | | [address] | | | - LABORATORY | | [...] + | [facility] | [address] | [place] | [phone] | | [facility] | | [address] | | | - LABORATORY | | [...] [address] | [place] | [phone] | | [facility] | | [address] | | | - LABORATORY | | [...] + | [facility] | [address] | [place] | [phone] | | [facility] | | [address] | | | - LABORATORY | | [...] mL/min/1.73m2 | [facility] | | | IV[facility]IAN | RATE,ESTIMATED | | MEDICAL | | | | mL/min/1.68h6Ectq than | | CENTER - | | [...] + | [facility] | [address] | [place], [place] | [phone] | | [facility] | | [address] | | | - LABORATORY | | [...] [address] | [place] | [phone] | | [facility] | | [address] | | | - LABORATORY | | [...] + | [facility] | [address] | [place] | [phone] | | [facility] | | [address] | | | - LABORATORY | | [...] | | POC | | | [facility] | | | | | | MEDICAL [...] [address] | [place] | [phone] | | [facility] | | [address] | | | - LABORATORY | | [...] + | [facility] | [address] | [place] | [phone] | | [facility] | | [address] | | | - LABORATORY | | [...] | 1.08 | 0.60 - 1.30 | [facility] | | | | | mg/dL | [facility] | | | | | | MEDICAL | | | | | | CENTER - | | | | | | LABORATORY | | + + + + + + | eGFR if not | >60Comment: GLOMERULAR | >=60 | [facility] | | | | FILTRATION | mL/min/1.73m2 | [facility] | | | IV[facility]IAN | RATE,ESTIMATED | | MEDICAL | | | | mL/min/1.03b0Oxxz than | | CENTER - | | [...] [address] | [place] | [phone] | | [facility] | | [address] | | | - LABORATORY | | [...] + | [facility] | [address] | [place] | [phone] | | [facility] | | [address] | | | - LABORATORY | | [...] + | [facility] | [address] | [place] | [phone] | | [facility] | | [address] | | | - LABORATORY | | [...] | | Screen, | | | [facility] | | | Urine | | | [...] | | Screen, | | | [facility] | | | Urine | | | [...] [address] | [place] | [phone] | | [facility] | | [address] | | | - LABORATORY | | [...] - 1.030 | [facility] | | | [place], | | | [facility] | | [...] [address] | [place] | [phone] | | [facility] | | [address] | | | - LABORATORY | | [...] [address] | [place] | [phone] | | [facility] | | [address] | | | - LABORATORY | | [...] + | [facility] | [address] | [place] | [phone] | | [facility] | | [address] | | | - LABORATORY | | [...] [address] | [place] | [phone] | | [facility] | | [address] | | | - LABORATORY | | [...] ST. | [address] | [place] | [phone] | | [facility] | | [address] | | | - LABORATORY | | [...] 16 | 3 - 16 mmol/L | [facility] | | | | | | [facility] | | | | | | MEDICAL | | | | | | CENTER - | | | | | | LABORATORY | | + + + + + + | Glucose | 986 ()Comment: | 70 - 109 mg/dL | [facility] [...] (H) | 7 - 18 mg/dL | [facility] | | | | | | [facility] | | | | | | MEDICAL | | | | | | CENTER - | | | | | | LABORATORY | | + + + + + + | Creatinine | 1.25 | 0.60 - 1.30 | [facility] | | | | | mg/dL | [facility] | | | | | | MEDICAL | | | | | | CENTER - | | | | | | LABORATORY | | + + + + + + | eGFR if not | >60Comment: GLOMERULAR | >=60 | [facility] | | | | FILTRATION | mL/min/1.73m2 | [facility] | | | [facility] | RATE,ESTIMATED | | MEDICAL | | | | mL/min/1.67u8Qzyn than | | CENTER - | | [...] [address] | [place] | [phone] | | [facility] | | [address] | | | - LABORATORY | | [...] | | Cells | | M/uL | [facility] | | | | | | MEDICAL | | | | | | CENTER - | | | | | | LABORATORY | | + +-------+ + + + | Hemoglobin | 15.4 | 13.5 - 18.0 | [facility] | | | | | g/dL | . [facility] | | | | [...] [address] | [place] | [phone] | | [facility] | | [address] | | | - LABORATORY | | [...] [address] | [place] | [phone] | | [facility] | | [address] | | | - LABORATORY | | [...] | | | | | | | 9991-2158 Use NIGHT DOSE for | | | | | | | doses scheduled: HS, 3AM, | | | | | | | Nighttime 7846-0894, | | | | | | + [...] | | | | | | | 9876-0064 Use NIGHT DOSE for | | | | | | | doses scheduled: HS, 3AM, | | | | | | | Nighttime 3480-7193, | | | | | | + [...] | | | | | NPO, Daytime 5730-1512 Use NIGHT | | | | | | | DOSE for doses scheduled: | | | | | | | HS, 3AM, Nighttime 8159-6676, | | | | | | + [...] PST | | | | | Starting [facility] 05/01/17 at 2254, For | | [...] PST | | | | | ONCE, [facility] 05/02/17 at 2215, For 1 | | [...]
--- OUTSIDE RECORDS SUMMARY | ~2020-01-12 | XMS | Encounter Summary ---
Demographics + + + | Address | [address] | | | [place] [address] | + + + | Home Phone [...] Team Providers + +------+ + | Care Talk Show Host Name | Role | Phone | + +------+ + PCP | Unavailable | + +------+ + Encounter Details +--------+ + + + + | Date | Type | Department | Care Team | Description | +--------+ + + + + | 12/18/ | Hospital | [facility] | Mohsen Carranza | | | 1999 | Encounter | [facility] [address] MD Need updated | | | | | [place] | address | | | | | [address] | | | | | | [phone] | | | +--------+ + + + [...]
--- OUTSIDE RECORDS SUMMARY | ~2020-01-12 | XMS | Encounter Summary ---
Demographics + + + | Address | [address] | | | [place] [address] | + + + | Home Phone [...] Team Providers + +------+ + | Care Auditing Specialist Name | Role | Phone | [...] + + | 10/03/ | Hospital | [facility] | Edgar Nunez, | Diabetic | | 2017 - | Encounter | MED CTR ICU [address] | MD [address] | ketoacidosis without | | | | [place], | [place], [place] | coma associated | | 10/04/ | | [place] [address] | [address] | with type 1 diabetes | | 2017 | | [phone] | | mellitus (HCC) | | | | | Efren Burnham P, | (Primary Dx); | | | | | DO [address] | Hyperkalemia; Acute | | | | | MS LLH21 GABBIE, | kidney injury (HCC); | | | | | [place] [address] | Acute hyperkalemia; | | | | | [phone] | Acute renal | | | | [...] type | | | | | | ([facility]); Sensation of | | | [...] last month, he was admitted here at [facility] 09/26 through 09/28 and then week later was admitted at [facility] for the DKA a s well. According [...] signed by: Siddhartha Pierson MD, 10/04/2016 8:33 [facility] documented in this encounter Discharge [...] resources below can help you learn more: [place] Diabetes [email or web address].[email or web address] Lighthouse Ogdjutvhuhzlu073-192-1368znc.[email or web address] National Eye [phone] www.nei.nih.gov Hormone Health [phone] www.[email or web address] Date Last Reviewed: 10/22/201519990155-5842 The [employer]. [address] [place], [place] [address]. All righ ts reserved. This information is [...] as of this encounter Progress Notes Hannah Mijares PharmKosta - 10/03/2016 7:42 PM PDTFormatting of [...] bimart garcia and [facility] garcia [x] [facility] HOP PICKER (Prescription Monitoring Program) [x] [employer] insurance reported [...] performed and electronically signed by Morenita García, Motorcycle Fabricator 7 19:25 Reviewed by: Hannah Leslie Mijares PHARMD 10/03/2016 19:41 documented in this encounter H&P Notes Efren Burnham DO - 10/03/2016 6:09 AM PDTFormatting of this note might be different f rom the original. [facility] HISTORY & PHYSICAL Patient: Joni Kwon : 1980: Age: 35 y.o. MedRec: [id number] PCP: DENIS Paul Admission date: 10/03/2016 Hospital [...] last month, he was admitted here at [place] from 09/26 through and then week later was admitted at [facility] for the DKA as well. Radha g to patient's mother he has history [...] CKTOTAL No results for input(s): PHART, PO2ART, BKQ1TJW, LEK7WKZ, BEART, I6RVBDOU in the last 168 h ours. Recent Labs Lab 09/26/16 2313 HCO3 3.6 (dot meylab) Xray Results: No results found. I reviewed imaging shows no acute cardiopulmonary disease. EKG Results (I reviewed EKG) Sinus tachycardia, vent rate 127 bpm, nonspecific ST changes, no change compared to EKG from 09/26/16 ASSESSMENT: Principal Problem: Diabetic ketoacidosis without coma associated with type 1 diabetes sebastian rayarie Active Hospital Problems Diagnosis Diabetic ketoacidosis without [...] to live in a senior living in [place] and was doing much better then with [...] signed by: Efren Burnham DO 10/03/2016 6:09 [facility] Dot phrase reference: VSHOSP (VS in table, last 24 hours) MEYLAB (various labs to pull in) DT (date and time) LABRCNTIP[K:3,Na:3 (last 3 sets of labs using potassium and sodium as examples) HGB HCT PLT INR GLU POCGLU Na K BUN CREA, CALCIUM TROPONINI BNP DIGOXIN Portions of this chart may have been created with [employer] voice recognition software. Occasi onal wrong-word or [...] Patient was admitted 2 weeks ago to [facility] for DKA and one week ago to [facility] for DKA. He is a poorly controlled diabetic who has difficul ty with medical compliance. He reports that tonight he woke up after falling asleep around 5 p.m. and was having nauseousness and pain radiating through his chest to his back. He was a lso having rapid breathing. Blood sugar was high. He lives in [facility]. His mother t ried to drive him here and stopped in [place] to have paramedics transfer him to [facility]. He has not had any fevers. He [...] by me Rhythm: Sinus tachycardia Rate: 127 Somers: normal Ectopy: none Conduction: normal ST Segments: [...] with compliance. Pt contacted mother who will fruit picker pt after d ischarge. VSS, no distress, all questions answered, ambulatory off unit, pt had no further q uestions lan of Codi Vitale RN - 10/04/2016 9:23 AM PDTBriefly revisited with Joni regarding his discharge and living situation. He states he lives with his sister and his mom in [place], he has discharge orders and redmond s [...] He reports he lives with family in [place]. He also reports he is independent with all of his ADL's, he does not use any DME, oxygen or CPAP. His PCP is Shaovn Covington and [facility] uses [facility]. He [...] + | [facility] | [address] | [place] | [phone] | | [facility] | | [address] | | | - LABORATORY | | [...] + | [facility] | [address] | [place], [place] | [phone] | | [facility] | | [address] | | | - LABORATORY | | [...] | | | FILTRATION | mL/min/1.73m2 | [facility] | | | YEMENI | RATE,ESTIMATED | | MEDICAL | | | | mL/min/1.72x3Jtpg than | | CENTER - | | [...] | | | | | mg/dL | [facility] | | | | | | MEDICAL | | | | | | CENTER - | | | | | | LABORATORY | | + + + + + + | Albumin | 3.0 (L) | 3.2 - 5.0 g/dL | [facility] | | | | | | [facility] | | | | [...] [address] | [place] | [phone] | | [facility] | | [address] | | | - LABORATORY | | [...] ST. | [address] | [place], [place] | [phone] | | [facility] | | [address] | | | - LABORATORY | | [...] [address] | [place] | [phone] | | [facility] | | [address] | | | - LABORATORY | | [...] [address] | [place] | [phone] | | [facility] | | [address] | | | - LABORATORY | | [...] [address] | [place] | [phone] | | [facility] | | [address] | | | - LABORATORY | | [...] + | [facility] | [address] | [place] | [phone] | | [facility] | | [address] | | | - LABORATORY | | [...] [address] | [place] | [phone] | | [facility] | | [address] | | | - LABORATORY | | [...] [address] | [place] | [phone] | | [facility] | | [address] | | | - LABORATORY | | [...] 16 | 7 - 18 mg/dL | [facility] | | | | | | [facility] | | | | | | MEDICAL | | | | | | CENTER - | | | | | | LABORATORY | | + + + + + + | Creatinine | 1.00 | 0.60 - 1.30 | [place] | | | | | mg/dL | [facility] | | | | | | MEDICAL | | | | | | CENTER - | | | | | | LABORATORY | | + + + + + + | eGFR if not | >60Comment: GLOMERULAR | >=60 | [place] | | | | FILTRATION | mL/min/1.73m2 | [facility] | | | YEMENI | RATE,ESTIMATED | | MEDICAL | | | | mL/min/1.34h3Esgy than | | CENTER - | | [...] + | [facility] | [address] | [place] | [phone] | | [facility] | | [address] | | | - LABORATORY | | [...] | | | | | | [employer] | | | | | [...] + | [facility] | [address] | [place] | [phone] | | [facility] | | [address] | | | - LABORATORY | | [...] + | [facility] | [address] | [place] | [phone] | | [facility] | | [address] | | | - LABORATORY | | [...] [address] | [place] | [phone] | | [facility] | | [address] | | | - LABORATORY | | [...] + | [facility] | [address] | [place] | [phone] | | [facility] | | [address] | | | - LABORATORY | | [...] ROJAS. | [address] | [place] | [phone] | | [facility] | | [address] | | | - LABORATORY | | [...] [address] | [place] | [phone] | | [facility] | | [address] | | | - LABORATORY | | [...] 16 | 7 - 18 mg/dL | [facility] | | | | | | [facility] | | | | | | MEDICAL | | | | | | CENTER - | | | | | | LABORATORY | | + + + + + + | Creatinine | 0.93 | 0.60 - 1.30 | [place] | | | | | mg/dL | [facility] | | | | | | MEDICAL | | | | | | CENTER - | | | | | | LABORATORY | | + + + + + + | eGFR if not | >60Comment: GLOMERULAR | >=60 | [place] | | | | FILTRATION | mL/min/1.73m2 | [facility] | | | YEMENI | RATE,ESTIMATED | | MEDICAL | | | | mL/min/1.11w3Tfep than | | CENTER - | | [...] + | [facility] | [address] | [place] | [phone] | | [facility] | | [address] | | | - LABORATORY | | [...] ST. | [address] | [place], [place] | [phone] | | [facility] | | [address] | | | - LABORATORY | | | | + + + + + POC Glucose (10/03/2016 12:34 PM PDT) + +-------+ + + + | Component | Value | Ref Range | Performed | Pathologist | | | | | At | Signature | + +-------+ + + + | Glucose, | 75 | 70 - 150 mg/dL | [facility] [...] [address] | [place] | [phone] | | [facility] | | [address] | | | - LABORATORY | | [...] [address] | [place] | [phone] | | [facility] | | [address] | | | - LABORATORY | | [...] [address] | [place] | [phone] | | [facility] | | [address] | | | - LABORATORY | | [...] | | Hydroxybuty | | mmol/L | [facility] | | | rate | | [...] ST. | [address] | [place] | [phone] | | [facility] | | [address] | | | - LABORATORY | | [...] (H) | 7 - 18 mg/dL | [facility] | | | | | | [facility] | | | | | | MEDICAL | | | | | | CENTER - | | | | | | LABORATORY | | + + + + + + | Creatinine | 1.39 (H) | 0.60 - 1.30 | [facility] | | | | | mg/dL | [facility] | | | | | | MEDICAL | | | | | | CENTER - | | | | | | LABORATORY | | + + + + + + | eGFR if not | 58 (L)Comment: | >=60 | [place] | | | | GLOMERULAR FILTRATION | mL/min/1.73m2 | [facility] | | | Y[place]I | RATE,ESTIMATED | | MEDICAL | | | | mL/min/1.92q7Imqs than | | CENTER - | | [...] + | [facility] | [address] | [place] | [phone] | | [facility] | | [address] | | | - LABORATORY | | [...] | | | | | | [employer] | | | | | [...] [address] | [place] | [phone] | | [facility] | | [address] | | | - LABORATORY | | [...] [address] | [place] | [phone] | | [facility] | | [address] | | | - LABORATORY | | [...] + | [facility] | [address] | [place] | [phone] | | [facility] | | [address] | | | - LABORATORY | | [...] [address] | [place] | [phone] | | [facility] | | [address] | | | - LABORATORY | | [...] [address] | [place] | [phone] | | [facility] | | [address] | | | - LABORATORY | | [...] | | | | HAWA RUBIN MD ([id number]) | | | | | | on [...] + | [facility] | [address] | [place] | [phone] | | [facility] | | [address] | | | - LABORATORY | | | | + + + + + Phosphorus (10/03/2016 4:06 AM PDT) + + + + + + | Component | Value | Ref Range | Performed | Pathologist | | | | | At | Signature | + + + + + + | Phosphorus | 9.6 ()Comment: | 2.5 - 4.6 mg/dL | [facility] | | | | Critical Result called | | [facility] | | | | to and [...] [address] | [place] | [phone] | | [facility] | | [address] | | | - LABORATORY | | [...] [address] | [place] | [phone] | | [facility] | | [address] | | | - LABORATORY | | [...] | | es | | | [facility] | | [...] [address] | [place] | [phone] | | [facility] | | [address] | | | - LABORATORY | | [...] | | | | | | [employer] | | | | | [...] [address] | [place] | [phone] | | [facility] | | [address] | | | - LABORATORY | | [...] | [employer] | | | [facility] | | | | | [...] [address] | [place] | [phone] | | [facility] | | [address] | | | - LABORATORY | | [...] + | [facility] | [address] | [place] | [phone] | | [facility] | | [address] | | | - LABORATORY | | [...] | | Hydroxybuty | | mmol/L | [facility] | | | rate | | [...] ST. | [address] | [place] | [phone] | | [facility] | | [address] | | | - LABORATORY | | [...] 2.41 (H) | 0.60 - 1.30 | [facility] | | | | | mg/dL | [facility] | | | | | | MEDICAL | | | | | | CENTER - | | | | | | LABORATORY | | + + + + + + | eGFR if not | 31 (L)Comment: | >=60 | [facility] | | | | GLOMERULAR FILTRATION | mL/min/1.73m2 | [facility] | | | [place] | RATE,ESTIMATED | | MEDICAL | | | | mL/min/1.80x2Pqky than | | CENTER - | | [...] [address] | [place] | [phone] | | [facility] | | [address] | | | - LABORATORY | | [...] | | | Count | | | [facility] | | [...] [address] | [place] | [phone] | | [facility] | | [address] | | | - LABORATORY | | [...] | | | | | dose on [facility] 10/03/16 at 0915 | | | | [...] | | | (after last modification) on Kailey | | | | | [...] | | | | | NPO, Daytime [id number] Use NIGHT | | | | | | | DOSE for doses scheduled: | | | | | | | HS, 3AM, Nighttime 1418-6381, | | | | | | + +-------+ +---------+---+ + +-------+ +---------+---+ + | Given | 10/04/19 | 4 Units | | Arm-Righ | 17 8:27 | | | t [...] | | | | | TITRATED, Starting [facility] 10/03/16 at | | | | [...] | | | | | | | [facility] 10/03/16 at 0405 | | | | [...] PDT | | | | | ONCE, [facility] 10/03/16 at 0405, For 1 | [...] PM PDT | | | | | [facility] 10/03/16 at 0510 | | | [...]
--- OUTSIDE RECORDS SUMMARY | ~2020-01-12 | XMS | Encounter Summary ---
Demographics + + + | Address | [address] | | | [place] [address] | + + + | Home Phone [...] Providers + +------+ + | Care Compensation Programs Manager Name | Role | Phone | [...] | 09/27/ | Education | [facility] | Ursula Haskins RN | Diabetic | | 2017 | | [facility] | [phone] | ketoacidosis without | | | | EDUCATION [address] | | coma associated | | | | [place], | | with type 1 diabetes | | | | [place] [address] | | mellitus (HCC) | | | | [phone] | | (Primary Dx) | +--------+ + [...] this encounter Progress Ursula Lin RN - 09/27/2016 12:08 PM PDTPlease see [...]
--- OUTSIDE RECORDS SUMMARY | ~2020-01-12 | XMS | Encounter Summary ---
Demographics + + + | Address | [address] | | | [place] [address] | + + + | Home Phone [...] + | Author | [facility] | | | and Ryana | + + + | Organization | [facility] | | | and [...] Team Providers + +------+ + | Care Equipment Monitor Phototypesetting Name | Role | Phone | + +------+ + PCP | Unavailable | + +------+ + Encounter Details +--------+ + + + + | Date | Type | Department | Care Team | Description | +--------+ + + + + | 09/07/ | Hospital | [facility] | Kevin Ricci | | | 1999 - | Encounter | HOSPITAL [address]., MD [address] | | | | | [place], [place] | [place], [place] | | | 09/09/ | | [address] | [address] | | | 1999 | | [phone] | | | +--------+ + + + [...]
--- OUTSIDE RECORDS SUMMARY | ~2020-01-12 | XMS | Clinical Summary ---
Demographics + + + | Address | [address] | | | [place] [address] | + + + | Home Phone [...] Team Providers + +------+ + | Care Public Health Aides Teacher Name | Role | Phone | + [...] | [employer] | [employer] | [id number] | 01/22/20 | [phone] | | Medica | | MEDICAID HMO | HEALTH | | 16-Pre | 1 | | id | | | MDCD | | sent | | | | | | [place] | | | | | | + +--------+ +--------+ +---------+--------+ | [employer] | [employer] | [id number] | 05/17/ | [phone] | | Medica | | MEDICAID HMO [...] lisa | | | 9 (Home) | [address] | + +--------+ +--------+ + + | Joni Kwon | Person | Self | [birth year] | | [address] | | [place] | al/Fam | | 1981 | [phone] | [address] [place], [place] | | | lisa | | | 9 (Home) | [address] | + +--------+ +--------+ + + | Joni Kwon | Mental | Self | [birth year] | | [address] | | Kevin | | | 1981 | [phone] | [address] [place], [place] | | | Health | | | 9 (Home) | [address] | + +--------+ +--------+ + + Advance Directives + + + + + | Type | Date Recorded | Patient | Explanation | | | | Soaking Pits Supervisor | | + + + + + | Power of | | | | | Pickling Machine Operator | | | | + + [...]
--- OUTSIDE RECORDS SUMMARY | ~2020-01-12 | XMS | Encounter Summary ---
Demographics + + + | Address | [address] | | | [place] [address] | + + + | Home Phone [...] Team Providers + +------+ + | Care Ball Maker Name | Role | Phone | + +------+ + PCP | Unavailable | + +------+ + Encounter Details +--------+ + + + + | Date | Type | Department | Care Team | Description | +--------+ + + + + | 02/23/ | [facility] | [facility] | Abhi Berger | | | 2003 | Encounter | FAMILY MEDICINE [address] | MD [address] | | | | | [address] | [place], [place] | | | | | [place] [address] | [address] | | | | | [phone] | | | +--------+ + + + [...]
--- OUTSIDE RECORDS SUMMARY | ~2020-01-12 | XMS | Encounter Summary ---
Demographics + + + | Address | [address] | | | [place] [address] | + + + | Home Phone [...] Team Providers + +------+ + | Care Heavy Machinery Assembler Name | Role | Phone | [...] [address] | | | | | | [place] | | | | | | [address] | | | | | | [phone] | | | +--------+ + + + [...] MEDICAL | | | | | | [place] - | | | | | | [...] [address] | [place] | [phone] | | [facility] | | [address] | | | - LABORATORY | | | | + + + + + documented in this encounter Visit Diagnoses Not on filedocumented in this encounter"
--- OUTSIDE RECORDS SUMMARY | ~2020-01-12 | XMS | Encounter Summary ---
Demographics + + + | Address | [address] | | | [place] [address] | + + + | Home Phone [...] Team Providers + +------+ + | Care Residential Carpenter Name | Role | Phone | + +------+ + PCP | Unavailable | + +------+ + Encounter Details +--------+ + + + + | Date | Type | Department | Care Team | Description | +--------+ + + + + | 03/30/ | Hospital | [facility] | Brooke Kemp | | | 2008 | Encounter | HOSPITAL EMERGENCY | MD [address] | | | | | [place] [address] | [address] [employer], | | | | | [place], [place] | [place] [address] | | | | | [address] | [phone] | | | | | [phone] | | | +--------+ + + + [...]
--- OUTSIDE RECORDS SUMMARY | ~2020-01-12 | XMS | Encounter Summary ---
Demographics + + + | Address | [address] | | | [place] [address] | + + + | Home Phone | | + + + | Preferred Language | Unknown | + + + | Marital Status | Single | + + + | Advent Affiliation | 1001 | + + + [...] Team Providers + +------+ + | Care Automotive Tire Testing Supervisor Name | Role | Phone [...] | | MED CTR EMERGENCY | [place] [address] [place] | diabetes mellitus | | | | CENTER [address] | [address] | with hyperglycemia | | | | [place], [place] | [place] [address] | ([facility]) (Primary Dx); | | | | [address] | [phone] | Type 2 diabetes | | | | [phone] | | mellitus without | | | | | | complication, with | | | | | | long-term current | | | | | | use of insulin | | | | | | ([facility]); Chest pain in | [...] might be different fro m the original. [facility] Joni Kwon Emergency Department Encounter Note [address] [place] [address] PCP:DENIS Paul [phone] CHIEF COMPLAINT: Chief Complaint [...] high today. Homeless and staying at the snf. He reports a slight cough. He says [...] He reports prior psychiatric evaluations in the [place] areas and they did not feel he [...] distress. Thin. Points to his lateral and warp doffer ior right lower chest the site of [...] were reviewed along with EMS notes and custodial record s if applicable. (See chart for [...] o follow-up with his regular provider in [place] until he can get established locally. Hi [...] Nurse Practitioner Why: For re-check Contact information: [address], [facility] [address] [place] [address] Discharge Instructions Get glucometer and resume checking your glucose at least twice daily. Increase oral fluids when sugar is high Portions of this chart may have been created with [employer] voice recognition software. Occasi onal wrong-word or [...] J?MRN: | | | | | | [id number] | | | [id number] | | | his | | | [...] | | | St. | | | [place] | | | y | | | [...] | | | St. | | | [place] | | | y H. | | [...] | | | St. | | | [place] | | | y H. | | [...] | | | St. | | | [place] | | | y H. | | [...] | | | St. | | | [place] | | | y H. | | [...] | | | St. | | | [place] | | | y H. | | [...] | | | St. | | | [place] | | | y | | | [...] | | | ext. | | | [address] | | | or go | | [...] | | | ? | | | 2016 | | | [place] | | | [...] ST. | [address] | [place] | [phone] | | [facility] | | [address] | | | - LABORATORY | | [...] mL/min/1.73m2 | [facility] | | | [place] | RATE,ESTIMATED | | MEDICAL | | | | mL/min/1.19g4Arva than | | CENTER - | | [...] + | [facility] | [address] | [place] | [phone] | | [facility] | | [address] | | | - LABORATORY | | [...] | | | | | HAWA THORPE ([id number]) on | | | | | | [...] + | [facility] | [address] | [place], [place] | [phone] | | [facility] | | [address] | | | - LABORATORY | | [...] [address] | [place] | [phone] | | [facility] | | [address] | | | - LABORATORY | | | | + + + + + Lipase (04/19/2017 9:14 AM PDT) + +-------+ + + + | Component | Value | Ref Range | Performed | Pathologist | | | | | At | Signature | + +-------+ + + + | Lipase | 24 | 0 - 60 U/L | [facility] [...] [address] | [place] | [phone] | | [facility] | | [address] | | | - LABORATORY | | [...] + | [facility] | [address] | [place] | [phone] | | [facility] | | [address] | | | - LABORATORY | | [...] | | | | mmol/L | [facility] | | | | | | MEDICAL [...] mL/min/1.73m2 | [facility] | | | [place] | RATE,ESTIMATED | | MEDICAL | | | | mL/min/1.14w4Qxlv than | | CENTER - | | [...] | 9.1 | 8.3 - 10.5 | [facility] | | | | | mg/dL | [facility] | | | | | | MEDICAL | | | | | | CENTER - | | | | | | LABORATORY | | + + + + + + | Albumin | 3.5 | 3.2 - 5.0 g/dL | [facility] | | | | | | LYNN [...] [address] | [place] | [phone] | | [facility] | | [address] | | | - LABORATORY | | [...] | | | Cells | | | Paula LYNN | | | | | | [...] + | [facility] | [address] | [place] | [phone] | | [facility] | | [address] | | | - LABORATORY | | [...] ST. | [address] | [place], [place] | [phone] | | [facility] | | [address] | | | - LABORATORY | | [...]
--- OUTSIDE RECORDS SUMMARY | ~2020-01-12 | XMS | Encounter Summary ---
Demographics + + + | Address | [address] | | | [place] [address] | + + + | Home Phone [...] Team Providers + +------+ + | Care Survey Rodman Name | Role | Phone | + [...] + + | 09/23/ | [facility] | [facility] | Adi Castro | Hyperglycemia | | 2017 - | | [facility] | Alexander Craig MD | (Primary Dx); | | | | CENTER [address] | [address] | Genital edema, male | | 09/24/ | | [place], [place] | [place], [place] | | | 2016 | | [address] | [address] | | | | | [phone] | | | +--------+ + + + [...] | | 0 | | | | OE-Lmruwquarthxh-Uto | mouth Daily as | | | [...] might be d ifferent from the original. [facility] Joni Kwon Emergency Department Encounter Note [address] [place] [id number] PCP:DENIS Paul [phone] eMERGENCY dEPARTMENT eNCOUnter CHIEF COMPLAINT Chief Complaint Patient presents with Back Pain Back Swelling Leg Swelling TRIAGE ED Triage Notes Balwinder Ahn RN 09/23/2016 22:17 Low back pain and swelling, states legs, feet and genitals are also swollen. Patient discha rged from [facility] yesterday after being admitted for DKA. States he started taking levam ir recently and every time he take this insulin then his legs and feet swell. Original note by Balwinder Ahn RN at 09/23/2016 22:15 Balwinder Ahn RN 09/23/2016 22:15 Low back pain and swelling, states legs, feet and genitals are also swollen. Patient discha rged from [facility] yesterday after being admitted for DKA Addendum to note by Balwinder Ahn RN at 09/23/2016 22:17 HPI Joni Kwon is a 35 y.o. male who presents with significant lower back edema and genital edema. Patient states he was in the hospital 2 days ago at [facility] for diabe tic ketoacidosis. He states [...] Take 100 mg by mouth every morning. LO-OUHROUOYGIJIE-AGITHIWZROTFT 10-5-325 MG CAPS Take 1 capsule by [...] deficits noted, no facial assymetry noted. 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 He does not appear to be in acute distress at this point. Follow-up Information Follow up with DENIS Paul In 2 days. Specialty: Family Nurse Practitioner Contact information: [address] [place] [address] New Prescriptions HYDROCODONE-ACETAMINOPHEN (NORCO) 5-325 MG PER TABLET Take 1-2 tablets by mouth every 6 hours as needed for Pain. FINAL IMPRESSION 1. Hyperglycemia 2. Genital edema, male Portions of this chart may have been created with Droid system master voice recognition software. Occasi onal wrong-word or [...] genitals are also swollen. Patient discharged from [facility] yester day after being admitted for [...] + | [facility] | [address] | [place] | [phone] | | [facility] | | [address] | | | - LABORATORY | | [...] [address] | [place] | [phone] | | [facility] | | [address] | | | - LABORATORY | | [...] + | [facility] | [address] | [place] | [phone] | | [facility] | | [address] | | | - LABORATORY | | [...] [address] | [place] | [phone] | | [facility] | | [address] | | | - LABORATORY | | [...] | 1.01 | 0.60 - 1.30 | [facility] | | | | | mg/dL [...] mL/min/1.73m2 | [facility] | | | [facility] | RATE,ESTIMATED | | MEDICAL | | | | mL/min/1.57p7Gaag than | | CENTER - | | [...] (L) | 3.2 - 5.0 g/dL | [facility] [address] | [place] | [phone] | | [facility] | | [address] | | | - LABORATORY | | [...] [address] | [place] | [phone] | | [facility] | | [address] | | | - LABORATORY | | [...]
[2020-01-12] MEDS ORDERED: VENTOLIN HFA18 GM INH (14:29)
== END 2020-01-12 14:48 | disposition home or self-care (01) ==
LOC: ED 10:56
DX: E10.65 Type 1 diabetes mellitus with hyperglycemia (principal); F31.9 Bipolar disorder, unspecified; F20.9 Schizophrenia, unspecified; F90.9 Attention-deficit hyperactivity disorder, unspecified type; F17.200 Nicotine dependence, unspecified, uncomplicated; Z88.8 Allergy status to other drugs, medicaments and biological substances; Z91.030 Bee allergy status; Z79.4 Long term (current) use of insulin; Z79.899 Other long term (current) drug therapy
CPT/HCPCS: 80053; 81001; 82010; 82800; 85025; 96360; 99284-25; J1815; J7030

== ENCOUNTER 2020-02-12 19:03 | Emergency (ER) | payer OTHER ==
[~2020-02-12] VITALS: Ht 175.3 cm; Wt 58.2 kg
--- OUTSIDE RECORDS SUMMARY | ~2020-02-12 | XMS | Encounter Summary ---
Demographics + + + | Address | [address] | | | [place] [address] | + + + | Home Phone | | + + + | Preferred Language | Unknown | + + + | Marital Status | Single | + + + | Orthodox Affiliation | 1001 | + + + | Race | White | + + + | Ethnic Group | Not or | + + + Author + + + | Author | [facility] | | | and Ryana | + + + | Organization | [facility] | | | and [...] Team Providers + +------+ + | Care Home Health Provider Name | Role | Phone | + +------+ + PCP | Unavailable | + +------+ + Encounter Details +--------+ + + + + | Date | Type | Department | Care Team | Description | +--------+ + + + + | 03/30/ | Hospital | [facility] | Brooke Kemp | | | 2008 | Encounter | HOSPITAL EMERGENCY | MD [address] | | | | | [address] [place] [place], [place] | [place] [address] | | | | | [address] | [phone] | | | | | [phone] | | | +--------+ + + + [...]
--- OUTSIDE RECORDS SUMMARY | ~2020-02-12 | XMS | Encounter Summary ---
Demographics + + + | Address | [address] | | | [place] [address] | + + + | Home Phone | | + + + | Preferred Language | Unknown | + + + | Marital Status | Single | + + + | Anabaptist Affiliation | 1001 | + + + | Race | White | + + + | Ethnic Group | Not or | + + + Author + + + | Author | [facility] | | | and Ryana | + + + | Organization | [facility] | | [...] Team Providers + +------+ + | Care Test Preparation Tutor Name | Role | Phone | + +------+ + PCP | Unavailable | + +------+ + Encounter Details +--------+ + + + + | Date | Type | Department | Care Team | Description | +--------+ + + + + | 08/23/ | Hospital | [facility] | Shivam Bustos MD | | | 2003 | Encounter | [address] | [address] [place] | | | | | [place], [place] | FAMILY MEDICINE | | | | | [address] | [place] [address] | | | | | [phone] | | | +--------+ + + + [...]
--- OUTSIDE RECORDS SUMMARY | ~2020-02-12 | XMS | Encounter Summary ---
Demographics + + + | Address | [address] | | | [place] [address] | + + + | Home Phone | | + + + | Preferred Language | Unknown | + + + | Marital Status | Single | + + + | Yazidism Affiliation | 1001 | + + + | Race | White | + + + | Ethnic Group | Not or | + + + Author + + + | Author | [facility] | | | and Ryana | + + + | Organization | [facility] | | | and [...] Team Providers + +------+ + | Care Registered Representative Name | Role | Phone | + +------+ + PCP | Unavailable | + +------+ + Encounter Details +--------+ + + + + | Date | Type | Department | Care Team | Description | +--------+ + + + + | 12/19/ | Hospital | [facility] | Zeus Wilcox MD, | | | 1999 - | Encounter | [facility] | [address] [place] [address] | | | | | [place], [place] | [place] [address] | | | 12/21/ | | [address] | [phone] | | | 1999 | | [phone] | | | +--------+ + + + [...]
--- OUTSIDE RECORDS SUMMARY | ~2020-02-12 | XMS | Encounter Summary ---
Demographics + + + | Address | [address] | | | [place] [address] | + + + | Home Phone | | + + + | Preferred Language | Unknown | + + + | Marital Status | Single | + + + | Synagogue Affiliation | 1001 | + + + | Race | White | + + + | Ethnic Group | Not or | + + + Author + + + | Author | [facility] | | | and Ryana | + + + | Organization | [facility] | | [...] Team Providers + +------+ + | Care Lithographic Press Feeder Name | Role | Phone | + +------+ + PCP | Unavailable | + +------+ + Encounter Details +--------+ + + + + | Date | Type | Department | Care Team | Description | +--------+ + + + + | 04/06/ | [facility] | ROGELIO TALAMANTES | Abhi Berger | | | 2003 | Encounter | FAMILY MEDICINE [address] | [address] | | | | | [place] | [place], [place] | | | | | [place] [address] | [address] | | | | | [phone] | | | +--------+ + + + [...]
--- OUTSIDE RECORDS SUMMARY | ~2020-02-12 | XMS | Encounter Summary ---
Demographics + + + | Address | [address] | | | [place] [address] | + + + | Home Phone | | + + + | Preferred Language | Unknown | + + + | Marital Status | Single | + + + | Episcopalian Affiliation | 1001 | + + + | Race | White | + + + | Ethnic Group | Not or | + + + Author + + + | Author | [facility] | | | and Ryana | + + + | Organization | [facility] | | [...] Team Providers + +------+ + | Care Portable Pinch Riveter Name | Role | Phone | [...] | +--------+ + + + + | 05/02/ | Education | [facility] | Ursula Haskins RN | Diabetic | | 2017 | | [facility] | [phone] | ketoacidosis without | | | | EDUCATION [address] | | coma associated | | | | [place], | | with type 1 diabetes | | | | [place] [address] | | mellitus (HCC) | | | | [phone] | | | +--------+ + + + [...] + documented as of this encounter Progress Ursula Lin RN - 05/02/2017 8:35 AM PSTSee inpatient consult completed today.Electronic ally signed by Ursula Haskins RN at 05/02/2017 8:37 AM PSTdocumented in this encounter Plan of Treatment Not on filedocumented as of this encounter Visit Diagnoses + + | Diagnosis | + + | Diabetic ketoacidosis without coma associated with type 1 diabetes mellitus (HCC) | + + documented in this encounter"
--- OUTSIDE RECORDS SUMMARY | ~2020-02-12 | XMS | Encounter Summary ---
Demographics + + + | Address | [address] | | | [place] [address] | + + + | Home Phone | | + + + | Preferred Language | Unknown | + + + | Marital Status | Single | + + + | Sabianism Affiliation | 1001 | + + + | Race | White | + + + | Ethnic Group | Not or | + + + Author + + + | Author | [facility] | | | and Ryana | + + + | Organization | [facility] | | | [...] Team Providers + +------+ + | Care Heel Sprayer First Name | Role | Phone | + +------+ + PCP | Unavailable | + +------+ + Encounter Details +--------+ + + + + | Date | Type | Department | Care Team | Description | +--------+ + + + + | 06/19/ | [facility] | ROGELIO TALAMANTES | Abhi Berger | | | 2003 | Encounter | FAMILY MEDICINE [address] | MD [address] | | | | | [place] | [place], [place] | | | | | [place] [address] | [address] | | | | | [phone] | | | +--------+ + + + [...]
--- OUTSIDE RECORDS SUMMARY | ~2020-02-12 | XMS | Encounter Summary ---
Demographics + + + | Address | [address] | | | [place] [address] | + + + | Home Phone | | + + + | Preferred Language | Unknown | + + + | Marital Status | Single | + + + | Jehovah'S Witness Affiliation | 1001 | + + + | Race | White | + + + | Ethnic Group | Not or | + + + Author + + + | Author | [facility] | | | and Ryana | + + + | Organization | [facility] | | [...] Team Providers + +------+ + | Care Pilot Plant Supervisor Name | Role | Phone | [...] | | | | | | | ([facility]) | | | | | | | [...] | | | | | | | ([facility]) | | | +--------+--------+ + + + + Encounter Details +--------+ + + + + | Date | Type | Department | Care Team | Description | +--------+ + + + + | 06/20/ | Hospital | [facility] | Mitch Cee, | Diabetic | | 2016 - | Encounter | MED CTR ICU [address] | MD [address] | ketoacidosis without | | | | [place], | [place], [place] | coma associated | | 06/21/ | | [place] [address] | [address] | with other specified | | 2015 | | [phone] | | diabetes mellitus | | | | | Kevin Gifford MD | ([facility]) (Primary Dx); | | | | | [address] | Diabetic | | | | | [place], [place] | ketoacidosis without | | | | | [address] | coma associated | | | | | | with type 1 diabetes | | | | | | mellitus ([facility]) | +--------+ + + + + Social [...] days. Specialty: Family Nurse Practitioner Contact information: [address], [address] [place] [...] tablet Take 81 mg by mouth Daily. IM-Xmhddnvywkzbo-Yoqqcflvskugs 10-5-325 MG Caps Take 1 capsule by [...] signed by: Santino Blake MD, 06/21/2016 17:44 [facility] documented in this enc ounter Medications at [...] | | 0 | | | | JL-Dxbgyllkskkdc-Ema | mouth Daily as | | | [...] encounter Progress Notes Ayala Han, [facility] - 06/20/2016 9:53 PM PSTFormatting of this note might be different fro m the original. PHARMACY SERVICES: ADMISSION MEDICATION REVIEW Joni Kwon is a 35 y.o. male admitted on 06/20/2016. Patient is not a reliable historian. Patient preferred pharmacies closed. Med history techn rose will call 06/21/2016 @ 1970 to obtain current medication list and update TIRE BUILDER medicatio ns as necessary. Location of Patient when reviewed: [x] ED [] Medical Floor Patient s prior to admit medication and over the counter (OTC) medications/herbal supplem ents list obtained from: [x] Verbal interview (patient is able to recall drug name, strength, frequency, etc.) [] Patient/family member provided a complete current medication list or bottles [] MAR from [facility] facility: [] Doctor's office: [] Pharmacy list names: [] [employer] insurance reported information [] Care Everywhere [] Other sources: Vaccines up to date? Yes No Unsure Influenza [] [x] [] Pneumococcal [] [x] [] Tdap [] [x] [] Shingles [] [x] [] Noted medications discrepancies or medication-related issues: Dosage change: Medication: Prior to Admission Sig: Patient taking differently TIRE BUILDER as: Insulin Glargine 100 u/ml 15 units nightly 9 units in the morning and 6 units in the evenin g Medication added: Medication: Prior to Admission Sig: HR-Gqunyrvlxvaix-Gehorspdatgje 10-5-325 mg 1 cap daily as needed for sinus congestion Medication review performed and electronically signed by Luis Araujo, Recreation Clerk 06/20 21:44 Reviewed by Ayala Han RPH 06/20/2016 21:53 documented in this en counter H&P Notes Kevin Gifford MD - 06/20/2016 11:07 PM PSTFormatting of this note might be different fro m the original. [place] HOSPITALIST HISTORY & PHYSICAL Patient: Joni Kwon : 1980: Age: 35 y.o. MedRec: [id number] PCP: DENIS Paul Admission date: 06/20/2016 Hospital [...] meal time (not large amounts) was in [facility] for DKA got out Friday and this morning () felt groggy and took he thinks to elizabeth le Lantus and fell back to sleep then later woke up with above CC and had mom drive him to [facility] ER (his choice) found to be in [...] Take 100 mg by mouth every morning. RK-KVVNOGUOECOJK-NEQAWKXLYWTCR 10-5-325 MG CAPS Take 1 capsule by [...] NOT TAKING Medication Sig Last Dose Dispense DocPaula Provider aspirin 81 mg chewable tablet Take 81 mg by mouth Daily. Taking Historical ProviderMD atoMOXetine (STRATTERA) 100 MG capsule Take 100 mg by mouth every morning. Taking Histori cristobal Provider, OV-Kdhrnyktqubuf-Hzubtretnpmqr 10-5-325 MG CAPS Take 1 capsule by [...] place Neuro Awake and fluent and cooperative (dot meyexam) DIAGNOSTIC STUDIES: Hematology and anemia Recent Labs Lab 06/20/161924 WBC 4.4 HGB 12.4* HCT 35.5* PLT 200 No results for input(s): PROTIME, INR, PTT in the last 168 hours. No results for input(s): IRON, TIBC, PCTSAT, FERRITIN, TSH, VBKDHSYZ35, FOLATE in the last 168 hours. Inflammatory [...] ABG No results for input(s): PHART, PO2ART, EBN3EJJ, VHG7ZVH, BEART, K7NFSPSV in the last 168 h ours. No results for input(s): SPECSOURCE, PHPOCB, PCO2, PO2, HCO3, TCO2, BEART, XCVW0OIB in the last 168 hours. Drug of [...] summarized old records scant here nothing from [place] yet but RN was to r equest ASSESSMENT: (meyprob vs meyprobap) Principal Problem: Diabetic ketoacidosis without coma associated with type 1 diabetes sebastian Active Hospital Problems Diagnosis Diabetic ketoacidosis without coma associated with type 1 diabetes mellitus Just got out of [facility] for DKA 2 days ago Friday Supposed [...] (dot meyaddendum tdnorefesh nownorefresh) (dot meytime meycritical) CMS Documentation I expect this patient will be hospitalized for greater than 2-midnights and expect the post -hospital plan to be discharge to home or to an adult foster home. Electronically signed by: Kevin Gifford MD 06/20/2016 23:07 [facility] (meyaddendum tdnorefesh nownorefresh) Portions of this chart may have been created with Britely voice recognition software. Occasi onal wrong-word or [...] sugar. He was just discharged out of [facility] where he was r eportedly for [...] Mom and Dad were at the beds [facility] and also participated in this conversation. 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 Joni states she has been with [...] DENIS Diallo and he states he uses [facility] or [facility] pharmacies. His mom will [...] here), and chest pain. Was d/c from [facility] on Friday with DKA. documented in this [...] [address] | [place] | [phone] | | [facility] | | [address] | | | - LABORATORY | | [...] | 0.65 | 0.60 - 1.30 | [facility] | | | | | mg/dL | [facility] | | | | | | MEDICAL | | | | | | CENTER - | | | | | | LABORATORY | | + + + + + + | eGFR, | >60Comment: GLOMERULAR | >=60 | [facility] | | | non- | FILTRATION | mL/min/1.73m2 | [facility] | | | [place] | RATE,ESTIMATED | | MEDICAL | | | | mL/min/1.32p8Rkuh than | | CENTER - | | [...] + | [facility] | [address] | [place] | [phone] | | [facility] | | [address] | | | - LABORATORY | | [...] ST. | [address] | [place] | [phone] | | [facility] | | [address] | | | - LABORATORY | | [...] | | | | | mg/dL | [facility] | | | | | | MEDICAL | | | | | | CENTER - | | | | | | LABORATORY | | + + + + + + | eGFR, | >60Comment: GLOMERULAR | >=60 | [facility] | | | non- | FILTRATION | mL/min/1.73m2 | [facility] | | | [place] | RATE,ESTIMATED | | MEDICAL | | | | mL/min/1.89x0Ryew than | | CENTER - | | [...] | | | | | mg/dL | [facility] | | | | | [...] [address] | [place] | [phone] | | [facility] | | [address] | | | - LABORATORY | | [...] [address] | [place] | [phone] | | [facility] | | [address] | | | - LABORATORY | | [...] ST. | [address] | [place], [place] | [phone] | | [facility] | | [address] | | | - LABORATORY | | [...] [address] | [place] | [phone] | | [facility] | | [address] | | | - LABORATORY | | [...] | 0.74 | 0.60 - 1.30 | [facility] | | | | | mg/dL | [facility] | | | | | | MEDICAL | | | | | | CENTER - | | | | | | LABORATORY | | + + + + + + | eGFR, | >60Comment: GLOMERULAR | >=60 | [facility] | | | non- | FILTRATION | mL/min/1.73m2 | [facility] | | | [place] | RATE,ESTIMATED | | MEDICAL | | | | mL/min/1.67y7Dhfe than | | CENTER - | | [...] + | [facility] | [address] | [place] | [phone] | | [facility] | | [address] | | | - LABORATORY | | | | + + + + + Culture, MRSA (06/21/2016 2:39 AM PST) + + + + + + | Component | Value | Ref Range | Performed | Pathologist | | | | | At | Signature | + + + + + + | Culture | Negative for MRSA by | | [facility] | | | | chromogenic agar method [...] + | [facility] | [address] | [place] | [phone] | | [facility] | | [address] | | | - LABORATORY | | [...] [address] | [place] | [phone] | | [facility] | | [address] | | | - LABORATORY | | [...] [address] | [place] | [phone] | | [facility] | | [address] | | | - LABORATORY | | [...] [address] | [place] | [phone] | | [facility] | | [address] | | | - LABORATORY | | [...] 12 | 7 - 18 mg/dL | [facility] | | | | | | [facility] | | | | | | MEDICAL | | | | | | CENTER - | | | | | | LABORATORY | | + + + + + + | Creatinine | 0.64 | 0.60 - 1.30 | [facility] | | | | | mg/dL | [facility] | | | | | | MEDICAL | | | | | | CENTER - | | | | | | LABORATORY | | + + + + + + | eGFR, | >60Comment: GLOMERULAR | >=60 | [facility] | | | non- | FILTRATION | mL/min/1.73m2 | [facility] | | | [place] | RATE,ESTIMATED | | MEDICAL | | | | mL/min/1.81h0Mgxr than | | CENTER - | | [...] | ine Ratio | | | [facility] | | | | | | [...] [address] | [place] | [phone] | | [facility] | | [address] | | | - LABORATORY | | [...] - 1.030 | [facility] | | | [place], | | | [facility] | | [...] [address] | [place] | [phone] | | [facility] | | [address] | | | - LABORATORY | | [...] | | s Screen, | | | [facility] | | | Urine | | [...] [address] | [place] | [phone] | | [facility] | | [address] | | | - LABORATORY | | [...] + | [facility] | [address] | [place] | [phone] | | [facility] | | [address] | | | - LABORATORY | | [...] | | | | | | [employer] [place] [employer] | | | | | [...] [address] | [place] | [phone] | | [facility] | | [address] | | | - LABORATORY | | [...] [address] | [place] | [phone] | | [facility] | | [address] | | | - LABORATORY | | [...] + | [facility] | [address] | [place] | [phone] | | [facility] | | [address] | | | - LABORATORY | | [...] mL/min/1.73m2 | [facility] | | | [place] | RATE,ESTIMATED | | MEDICAL | | | | mL/min/1.18y3Qwaq than | | CENTER - | | [...] + | [facility] | [address] | [place] | [phone] | | [facility] | | [address] | | | - LABORATORY | | [...] [address] | [place] | [phone] | | [facility] | | [address] | | | - LABORATORY | | [...] + | [facility] | [address] | [place] | [phone] | | [facility] | | [address] | | | - LABORATORY | | [...] | | | | HAWA RUBIN MD ([id number]) | | | | | | on [...] + | [facility] | [address] | [place] | [phone] | | [facility] | | [address] | | | - LABORATORY | | [...] + | [facility] | [address] | [place] | [phone] | | [facility] | | [address] | | | - LABORATORY | | [...] ST. | [address] | [place], [place] | [phone] | | [facility] | | [address] | | | - LABORATORY | | [...] 18 | 7 - 18 mg/dL | [facility] | | | | | | [facility] | | | | | | MEDICAL | | | | | | CENTER - | | | | | | LABORATORY | | + + + + + + | Creatinine | 1.09 | 0.60 - 1.30 | [place] | | | | | mg/dL | [facility] | | | | | | MEDICAL | | | | | | CENTER - | | | | | | LABORATORY | | + + + + + + | eGFR, | >60Comment: GLOMERULAR | >=60 | [facility] | | | non- | FILTRATION | mL/min/1.73m2 | [facility] | | | [place] | RATE,ESTIMATED | | MEDICAL | | | | mL/min/1.39m6Alaa than | | CENTER - | | [...] + | [facility] | [address] | [place] | [phone] | | [facility] | | [address] | | | - LABORATORY | | [...] [address] | [place] | [phone] | | [facility] | | [address] | | | - LABORATORY | | [...] | Top Tube | | | [facility] | | | | | | MEDICAL [...] + | [facility] | [address] | [place] | [phone] | | [facility] | | [address] | | | - LABORATORY | | [...] [address] | [place] | [phone] | | [facility] | | [address] | | | - LABORATORY | | [...] + | [facility] | [address] | [place] | [phone] | | [facility] | | [address] | | | - LABORATORY | | | | + + + + + Extra Blue Top Tube (06/20/2016 7:25 PM PST) + +-------+ + + + | Component | Value | Ref Range | Performed | Pathologist | | | | | At | Signature | + +-------+ + + + | Extra Blue | Done | | [facility] | | | Top Tube | | [...] [address] | [place] | [phone] | | [facility] | | [address] | | | - LABORATORY | | [...] [address] | [place] | [phone] | | [facility] | | [address] | | | - LABORATORY | | [...] | | | PT's OWN MED. In xis patient | | | | | | | specific bin. RETURN TO PATIENT | | | | | | | AT DISCHARGE. Verified by | | | | | | | Pharmacist Lupe Tilley, [facility] | | | | | | | [...] | | | | | NPO, Daytime [id number] Use NIGHT | | | | | | | DOSE for doses scheduled: | | | | | | | HS, 3AM, Nighttime [id number], | | | | | | + [...] | | | | | | Starting [facility] 06/20/16 at 1940 | | | | [...] PST | | | | | ONCE, [facility] 06/20/16 at 1940, For 1 | | [...]
--- OUTSIDE RECORDS SUMMARY | ~2020-02-12 | XMS | Encounter Summary ---
Demographics + + + | Address | [address] | | | [place] [address] | + + + | Home Phone | | + + + | Preferred Language | Unknown | + + + | Marital Status | Single | + + + | Mu-Ism Affiliation | 1001 | + + + | Race | White | + + + | Ethnic Group | Not or | + + + Author + + + | Author | [facility] | | | and Ryana | + + + | Organization | [facility] | | | and [...] Team Providers + +------+ + | Care Rn Allergy Name | Role | Phone | + +------+ + PCP | Unavailable | + +------+ + Encounter Details +--------+ + + + + | Date | Type | Department | Care Team | Description | +--------+ + + + + | 03/11/ | Hospital | [facility] | Shivam Garzon | | | 2003 | Encounter | [address] | DO [address] | | | | | [place], [place] | [place], [place] | | | | | [address] | [address] | | | | | [phone] | | | +--------+ + + + [...]
--- OUTSIDE RECORDS SUMMARY | ~2020-02-12 | XMS | Encounter Summary ---
Demographics + + + | Address | [address] | | | [place] [address] | + + + | Home Phone [...] + + + | Author | [facility] | | | and Ryana | + + + | Organization | [facility] | | [...] Team Providers + +------+ + | Care Gauge Controller Name | Role | Phone | + +------+ + | Sahvon Covington | PCP | | + +------+ [...] + + | 09/23/ | Emergency | [facility] | Castro Adi | Hyperglycemia | | 2017 - | | [facility] | Alexander Craig MD | (Primary Dx); | | | | CENTER [address] | [address] | Genital edema, male | | 09/24/ | | [place], [place] | [place], [place] | | | 2016 | | [address] | [address] | | | | | [phone] | | | +--------+ + + + [...] | | 0 | | | | DK-Xditneguhzmxc-Tsu | mouth Daily as | | | [...] might be d ifferent from the original. [facility] Joni Kwon Emergency Department Encounter Note [address] [place] [address] PCP:DENIS Paul [phone] eMERGENCY dEPARTMENT eNCOUnter CHIEF COMPLAINT Chief Complaint Patient presents with Back Pain Back Swelling Leg Swelling TRIAGE ED Triage Notes Balwinder Ahn RN 09/23/2016 22:17 Low back pain and swelling, states legs, feet and genitals are also swollen. Patient discha rged from [facility] yesterday after being admitted for DKA. States he started taking levam ir recently and every time he take this insulin then his legs and feet swell. Original note by Balwinder Ahn RN at 09/23/2016 22:15 Balwinder Ahn RN 09/23/2016 22:15 Low back pain and swelling, states legs, feet and genitals are also swollen. Patient discha rged from [facility] yesterday after being admitted for DKA Addendum to note by Balwinder Ahn RN at 09/23/2016 22:17 HPI Joni Kwon is a 35 y.o. male who presents with significant lower back edema and genital edema. Patient states he was in the hospital 2 days ago at [facility] for diabe tic ketoacidosis. He states they [...] Take 100 mg by mouth every morning. BO-GRBSYYDGCSPNO-SEBQGMBVHCUHU 10-5-325 MG CAPS Take 1 capsule by [...] deficits noted, no facial assymetry noted. 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 He does not appear to be in acute distress at this point. Follow-up Information Follow up with DENIS Paul In 2 days. Specialty: Family Nurse Practitioner Contact information: [address] [place] [address] New Prescriptions HYDROCODONE-ACETAMINOPHEN (NORCO) 5-325 MG PER TABLET Take 1-2 tablets by mouth every 6 hours as needed for Pain. FINAL IMPRESSION 1. Hyperglycemia 2. Genital edema, male Portions of this chart may have been created with [employer] voice recognition software. Occasi onal wrong-word or sound-alike substitutions may have occurred due to the inherent renee itations of voice recognition software. Please read the chart carefully and recognize, using context, where these substitutions have occurred Adi Castro MD 09/24/16 0102 documented in this encounter Miscellaneous Notes ED Triage Notes - Balwinder Ahn, RN - 09/23/2016 10:14 PM PDTLow back pain and swelling, states legs, feet and genitals are also swollen. Patient discharged from [facility] yester day after being admitted for DKA. [...] + | [facility] | [address] | [place] | [phone] | | [facility] | | [address] | | | - LABORATORY | | [...] + | [facility] | [address] | [place] | [phone] | | [facility] | | [address] | | | - LABORATORY | | [...] + | [facility] | [address] | [place] | [phone] | | [facility] | | [address] | | | - LABORATORY | | [...] + | [facility] | [address] | [place] | [phone] | | [facility] | | [address] | | | - LABORATORY | | [...] 14 | 7 - 18 mg/dL | [facility] | | | | | | [facility] | | | | | | MEDICAL | | | | | | CENTER - | | | | | | LABORATORY | | + + + + + + | Creatinine | 1.01 | 0.60 - 1.30 | [facility] | | | | | mg/dL | [facility] | | | | | | MEDICAL | | | | | | CENTER - | | | | | | LABORATORY | | + + + + + + | eGFR, | >60Comment: GLOMERULAR | >=60 | [facility] | | | non- | FILTRATION | mL/min/1.73m2 | [facility] | | | Somali | RATE,ESTIMATED | | MEDICAL | | | | mL/min/1.60l2Ckgp than | | CENTER - | | [...] [facility]. | [address] | [place] | [phone] | | [facility] | | [address] | | | - LABORATORY | | [...] | | | | | | [facility] | | [...] | 0.00 | 0.00 - 0.10 | [facility] | | | Basophils | | K/uL [...] [address] | [place] | [phone] | | [facility] | | [address] | | | - LABORATORY | | [...] | | | | | Pain, Starting e 09/24/16 at | | | | | [...]
--- OUTSIDE RECORDS SUMMARY | ~2020-02-12 | XMS | Encounter Summary ---
Demographics + + + | Address | [address] | | | [place] [address] | + + + | Home Phone | | + + + | Preferred Language | Unknown | + + + | Marital Status | Single | + + + | Alevism Affiliation | 1001 | + + + | Race | White | + + + | Ethnic Group | Not or | + + + Author + + + | Author | [facility] | | | and Ryana | + + + | Organization | [facility] | | | and [...] Team Providers + +------+ + | Care Interlocking And Signal Mechanic Name | Role | Phone | + +------+ + PCP | Unavailable | + +------+ + Encounter Details +--------+ + + + + | Date | Type | Department | Care Team | Description | +--------+ + + + + | 09/07/ | Hospital | [facility] | Kevin Ricci | | | 1999 - | Encounter | HOSPITAL [address] MD [address] | | | | | [place], [place] | [place], [place] | | | 09/09/ | | [address] | [id number] | | | 1999 | | [phone] | | | +--------+ + + + [...]
--- OUTSIDE RECORDS SUMMARY | ~2020-02-12 | XMS | Encounter Summary ---
Demographics + + + | Address | [address] | | | [place] [address] | + + + | Home Phone [...] Team Providers + +------+ + | Care Helix Coil Winder Name | Role | Phone | + [...] + + | 05/07/ | Emergency | [facility] | Adi Castro | Vomiting, | | 2017 | | [facility] | Alexander Craig MD | intractability of | | | | CENTER [address] | [address] | vomiting not | | | | [place], [place] | [place], [place] | specified, presence | | | | [address] | [address] | of nausea not | | | | [phone] | | specified, | | | | [...] 05/03/20 | | | (HUMBE CHRISTENSEN) | SCALE: Blood | | | 17 [...] Craig MD - 05/07/2017 7:35 AM PST [facility] Join Kwon Emergency Department Encounter Note [address] [place] [address] PCP:DENIS Pual [phone] eMERGENCY dEPARTMENT eNCOUnter CHIEF COMPLAINT Chief [...] deficits noted, no facial assymetry noted. 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 Occasi onal wrong-word or [...] J?MRN: | | | | | | [id number] | | | [id number] | | | his | | | [...] | | | St. | | | [place] | | | y | | | [...] | | | St. | | | [place] | | | y | | | [...] | | | St. | | | [place] | | | y H. | | [...] | | | St. | | | [place] | | | y H. | | [...] | | | St. | | | [place] | | | y H. | | [...] | | | St. | | | [place] | | | y H. | | [...] | | | St. | | | [place] | | | y H. | | [...] | | | St. | | | [place] | | | y | | | [...] | | | ext. | | | [phone] | | | or go | | [...]
--- OUTSIDE RECORDS SUMMARY | ~2020-02-12 | XMS | Encounter Summary ---
Demographics + + + | Address | [address] | | | [place] [address] | + + + | Home Phone | | + + + | Preferred Language | Unknown | + + + | Marital Status | Single | + + + | Pentecostal Affiliation | 1001 | + + + | Race | White | + + + | Ethnic Group | Not or | + + + Author + + + | Author | [facility] | | | and [facility] | + + + | Organization | [facility] | | | and [...] Team Providers + +------+ + | Care Spray Operator Name | Role | Phone | + +------+ + PCP | Unavailable | + +------+ + Encounter Details +--------+ + + + + | Date | Type | Department | Care Team | Description | +--------+ + + + + | 03/05/ | [facility] | [facility] | Abhi Berger | | | 2003 | Encounter | [facility] [address] | MD [address] | | | | | [address] | [place], [place] | | | | | [place] [address] | [address] | | | | | [phone] | | | +--------+ + + + [...]
--- OUTSIDE RECORDS SUMMARY | ~2020-02-12 | XMS | Encounter Summary ---
Demographics + + + | Address | [address] | | | [place] [address] | + + + | Home Phone | | + + + | Preferred Language | Unknown | + + + | Marital Status | Single | + + + | Confucianism Affiliation | 1001 | + + + | Race | White | + + + | Ethnic Group | Not or | + + + Author + + + | Author | [facility] | | | and Ryana | + + + | Organization | [facility] | | | and [...] Providers + +------+ + | Care Legal Service Specialist Name | Role | Phone | + +------+ + PCP | Unavailable | + +------+ + Encounter Details +--------+ + + + + | Date | Type | Department | Care Team | Description | +--------+ + + + + | 04/21/ | Hospital | [facility] | Abhi Berger | | | 1999 - | Encounter | [place] [address] [address] | MD [address] | | | | | [place], [place] | [place], [place] | | | 04/22/ | | [address] | [address] | | | 1999 | | [phone] | | | +--------+ + + + [...]
--- OUTSIDE RECORDS SUMMARY | ~2020-02-12 | XMS | Encounter Summary ---
Demographics + + + | Address | [address] | | | [place] [address] | + + + | Home Phone [...] Author + + + | Author | [facility] | | | and Ryana | + + + | Organization | [facility] | | [...] Providers + +------+ + | Care Assistant Prosecuting Attorney Name | Role | Phone | + +------+ + PCP | Unavailable | + +------+ + Encounter Details +--------+ + + + + | Date | Type | Department | Care Team | Description | +--------+ + + + + | 02/05/ | Hospital | [facility] | Cody [place] | Diabetic | | 2016 - | Encounter | [facility] | Iglesia Mccall MD [address] | ketoacidosis without | | | | CARE FLOOR [address] | coma associated | | 02/07/ | | [address] | [place] [address] | with type 2 diabetes | | 2016 | | [place], [place] | [phone] | mellitus (HCC) | | | | [address] | | | | | | [phone] | | | +--------+ + + + [...] Date of Service: 02/08/16 0936 Status: Signed Hazmat Cdl A Driver: Lanre Pan MD (Physician) Related Notes: Original Note by Lanre Pan MD (Physician) filed at 02/08/16 1015 [facility] Service: Hospitalist Discharge Summary Date of Admission: [...] episodes of DKA, and recently moved to [place], [place]. The patient typically takes Lantus pens, though according to the patie nt he has not been storing them appropriately and may have left them out of the fridge for a prolonged period, and the patient indicates that he may have missed a few doses. [facility] few days prior to his admission. He was initially seen at [place] emergency department and diagnosed with diabetic ketoaci [...] to schedule appointment with the PCP in [place]. DISCHARGE DIAGNOSES 1. Diabetic ketoacidosis in a type 1 diabetic. 2. History of reported schizophrenia, stable. 3. History of tobaccoism. Patient was counseled on tobacco cessation. 4. Electrolyte imbalance, secondary to diabetic ketoacidosis treatment. Past Medical History Diagnosis Date Schizophrenia (HCC) 02/06/2016 Attention-deficit hyperactivity disorder, predominantly hyperactive type 02/06/2016 Depression 02/06/2016 Leukocytosis (leucocytosis) 02/06/2016 Diabetes mellitus type I ([facility]) History reviewed. No pertinent past [...] on file. 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 Prescriptions given. IV removed. VSS. Patient left ambulatory to a private residence with family onver danie Transaction, Provider Unknown - 02/08/2016 9:52 AM PDT Case Management by Rhea Kaiser RN at 02/08/16 0952 Author: Rhea Kaiser RN Service: (none) Author Type: Registered Nurse Filed: 02/08/16 1000 Date of Service: 02/08/16 0952 Status: Addendum Hazmat Cdl A Driver: Rhea Kaiser RN (Registered Nurse) Related Notes: Original Note by Rhea Kaiser RN (Registered Nurse) filed at 02/08/16 0 955 Discharge Planning: contacted [facility] [place] [phone], staff noted Shilpi scott is assigned to his case, left message with call back number for counselor to contact . Discharge Planning: spoke to CM Shilpi Mirza return call, advised [facility]ac t patient this afternoon to set up appointment. Entered appointment info and phone number in AVS and gave message to patient. onver danie Transaction, Provider Unknown - 02/08/2016 6:40 AM PDT Nurse Progress Note by Gayle Gomez RN at 02/08/16 0640 Author: Gayle Gomez RN Service: (none) Author Type: Registered Nurse Filed: 02/08/16 0644 Date of Service: 02/08/16 0640 Status: Signed Hazmat Cdl A Driver: Gayle Gomez RN (Registered Nurse) No changes [...] 02/07/161918 Date of Service: 02/07/161819 Status: Addendum Hazmat Cdl A Driver: Aracelis Strong RN (Registered Nurse) Related Notes: [...] 298. 8 units insulin administered. Currently amb [facility]. Report given to ERIKA Araujo. Aracelis Strong RN onver danie Transaction, Provider Unknown - 02/07/2016 3:27 PM PDT Case Management by Rhea Kaiser RN at 02/07/16 1527 Author: Rhea Kaiser RN Service: (none) Author Type: Registered Nurse Filed: 02/07/16 1552 Date of Service: 02/07/16 1527 Status: Addendum Hazmat Cdl A Driver: Rhea Kaiser RN (Registered Nurse) Related Notes: [...] (spoke with patient and with mom Blossom [phone], patient resides with mom, sleeps on the couch, patient and mom would like patient to live in assisted living ) Mental Status Oriented Power of Propeller Tester No Anticipated Discharge Plan Post Acute Care [...] Home (CM will check for [facility] in [facility]) Met with: CM spoke with patient and patient mother (with pt permission) to discuss discharg e planning, Pt is a 35 y.o., male, whom arrived via life flight to [facility] from [facility] due to DKA. Patient with dx of DM type I, schizophrenia. Patient resided in [facility] for 5 years. Patient and patient mother Blossom [phone] would like leonardo ent to live independent of parent in [facility] or assisted living in [facility]. CM to contact Brody with [facility] in [place] for information concerning patient. Patient states he [...] care provider on file. Patient's insurance: Medicaid [facility] Coverage concerns: no Medication coverage/concerns: non compliant with DM I CBG and insulin use Community resources utilized / needed: patient is requesting mcc placement and help to get his life back on track Assistance in transportation: patient's mother will transport Blossom [phone] Identification of any specific education / training: [...] Date of Service: 02/07/16 1001 Status: Signed Hazmat Cdl A Driver: Lanre Pan MD (Physician) [facility] Service: Hospitalist Progress Note Hospital Day: LOS: 1 day Post-Op Day: * No surgery found * SUBJECTIVE Patient Summary: admission H and P Dr. Kan:"The patient is a 35 y.o. male wi th significant past medical history of schizophrenia, patient states last admission to [facility] was 2 years ago, ADHD, depression, type I diabetes mellitus diagnos ed at age 4 according to the patient and about 3 episodes of admissions for DKA since he mov ed to [place]. Per Dr. Dunaway, [facility] emergency room the patient and had a couple of admissions of this year for DKA. Patient had been kicked out of the [place] had been smoking marijuan a which the patient admits. Had presented to [facility] emergency room today after a friend [...] elayed to me by Dr. Dunaway of [facility] ER, had about a week prior to admission and the patient has been laying in the [place] for the last 4 days during nothing she medications. Per mother the patient also had lost 100 pounds since october of this year. Patient was seen at the [facility] Emergency Department, was noted to be tachycardic and tachypneic I was told initially his heart rate was in the 120s, respiration was in the mid 20s, patient was refusing to answer questions or could not answer questions according to [facility] physician, labs showed he was in DKA, he was given 2 L of IV fluid bolus w sandra there, subsequently hospitalist and ICU attending was called at [facility] for a transfer of patient, Dr. Vega recommended giving the patient bicarbonate and potassium which was done , the patient was also in the process of being given 2 more liters of normal saline and was transferred at acute care floor in [facility]. By the time admitting hospitalist and [...] oz)] 60 kg (132 lb 4.4 oz) (02/07 340) Physical Exam Constitutional: He is oriented to [...] we will transition off insulin drip over [facility] htime., Appreciate Dr. Gonzales input, Levemir 10 [...] Service: (none) Author Type: Registered Dietitian Filed: 02/07/16940 Date of Service: 02/07/16939 Status: Signed Hazmat Cdl A Driver: Darcy Niño RD (Registered Dietitian) 02/07/16 0931 [...] Estimated Energy Needs Total Energy Estimated Needs 7965-2540 kcal/day Method for Estimating Needs 25-30 kcal/kg [...] Date of Service: 02/07/16 06 Status: Signed Hazmat Cdl A Driver: Gayle Gomez RN (Registered Nurse) No changes [...] 1630 Date of Service: 02/06/161621 Status: Signed Hazmat Cdl A Driver: Jace Yanez RN (Registered Nurse) Pts mother, Blossom, came by hospital to see son and will head back to [place]. She stat es that pts schizophrenia started at age 19 or 20, and that pt often thinks he is other peop le (ie, [facility]), and often mixes fiction with reality. [facility] [place] [facility] the last 5 years, and has been in [place] since September. Karyn muñiz has been working [...] Date of Service: 02/06/16 0849 Status: Addendum Hazmat Cdl A Driver: Cody Kan MD (Physician) Related Notes: Original Note by Cody Kan MD (Physician) filed at 02/07/16 1611 [facility] Service: Hospitalist Admission History & Physical Date of Admission: 02/06/2016 Requesting Physician: Gume Finn, Emergency Department [facility] Reason for Admission: DKA History Obtained From: patient, chart review, Quality of history: fair CHIEF COMPLAINT: DKA HISTORY OF PRESENT ILLNESS The patient is a 35 y.o. male with significant past medical history of schizophrenia, leonardo ent states last admission to [facility] was 2 years ago, ADHD, depression, type I diabetes mellitus diagnosed at age 4 according to the patient and about 3 episodes o f admissions for DKA since he moved to [place]. Per Dr. Dunaway, [facility] emergency room the patie nt and had a couple of admissions this year for DKA. Patient had been kicked out of the [place] as he had been smoking marijuana which the patient admits. Had presented to [facility] emergency room today after a friend [...] relayed to me by Dr. Dunaway of [facility] ER, had about a week prior to admission and the leonardo ent has been laying in the couch for the last 4 days doing nothing. Per mother the patient a lso had lost 100 pounds since October of this year. Patient was seen at the [facility] Emergency Department, was noted to be [...] hospitalist and ICU attending was called at [facility] for a transfer of patient, Dr. Vega recommended giving the patient bicarbonate and pota ssium which was done, the patient was also in the process of being given 2 more liters of no rmal saline and was transferred to acute care floor in [facility]. By the time admitting hospitalist saw [...] sensation and reflexes throughout DATA Labs from [facility] CBC: WBCs 12.6, hemoglobin 15.9, hematocrit 45.9, [...] no acute ST-T wave changes. CXR from [facility] no pneumonia or other acute process as [...] his last admission and discharge summary from [facility] to be faxed here. heparin for deep vein thrombosis prophylaxis. L eukocytosis is probably reactive and at this point I will hold off on giving antibiotics. Schizophrenia ([facility]) (02/06/2016) Assessment: not in exacerbation Plan: should have his medications once eating and I have asked for staff educator to reconcile his medications from his pharmacy in [place] Attention-deficit hyperactivity disorder, predominantly hyperactive type Assessment:not in exacerbation Plan: will should have his medications he should not once eating and I have asked for staff educator to reconcile his medications from his pharmacy in [place] Depression Assessment: not in exacerbation Plan: should have his medications restarted once eating and I have asked for staff educator to reconcile his medications from his pharmacy [...] care with other providers well as [employer]. Other recom mendations for management of this [...] Inpatient to Acute Care Floor Dictation software, [employer], used which may contain error for similar [...] 0735 Date of Service: 02/08/16623 Status: Signed Hazmat Cdl A Driver: Margarita Gonzales MD (Physician) [facility] Service: Endocrinology Follow Up Consult Note Date [...] running in the high 200s Seen by staff educator yesterday. Per nursing noted, some of the below BG are postprandial as pt not cooperating with [facility] nursing staff re:planned mealtimes More [...] Per outside records - pt [facility] after several days of "lying on the cou ch." Pt has recently been discharged from his mcc 2/2 marijuana use. Grandmother has rece ntly . Family members thought pt was simply suffering from depression over the pa st few days. Presented to [facility], found to have pH of 6.01 on ABG and CO2 of 5. Transferred to [facility], pt has now received at least [...] negative. Past Medical History Diagnosis Date Schizophrenia ([facility]) 02/06/2016 Attention-deficit hyperactivity disorder, predominantly hyperactive type 02/06/2016 Depression 02/06/2016 Leukocytosis (leucocytosis) 02/06/2016 Diabetes mellitus type I ([facility]) History reviewed. 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 Sexual Activity: [...] Orozco RN, CDE Service: (none) Author Type: Radiotelegraph Operator Servicer Filed: 02/07/16 499 Date of Service: 02/07/161718 Status: Signed Hazmat Cdl A Driver: Luís Orozco RN, CDE (Radiotelegraph Operator Servicer) Consult Orders: 1. Inpatient consult to clinical staff educator [[id number]] ordered by Margarita Gonzales MD at 02/06 6895 Diabetes Education Met with Patient today. Reports [...] Patient reports he is currently living in [facility], and at times receives assistanc e from "[facility]" to help with placement/mcc "They helped me [...] provided contact information for CDE located in [place]. Encouraged Patient to discuss Diabetes Education with [...] than 30 days. Patient was followed by Metallurgical Engineer earlier today. Current insulin orders as per Endocr inologist recomendations. Margarita Mcduffie MD - 02/07/2016 6:29 AM PDT Consult* by Margarita Gonzales MD at 02/07/16628 Author: Margarita Gonzales MD Service: (none) Author Type: Physician Filed: 02/07/16 0725 Date of Service: 02/07/16628 Status: Signed Hazmat Cdl A Driver: Margarita Gonzales MD (Physician) [facility] Service: Endocrinology Follow Up Consult Note Date [...] Per outside records - pt [facility] after several days of "lying on the cou ch." Pt has recently been discharged from his mcc 2/2 marijuana use. Grandmother has rece ntly . Family members thought pt was simply suffering from depression over the pa st few days. Presented to [facility], found to have pH of 6.01 on ABG and CO2 of 5. 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 Sexual Activity: [...] (37.1 C)] 98.2 F (36.8 C) (02/06 0336) BP: (92-113)/(51-75) 105/64 mmHg (02/06 033) Heart [...] dose corrective algorithm qAC and qHS recommend staff educator Remainder of patients medical conditions to [...] Date of Service: 02/06/16 1014 Status: Signed Hazmat Cdl A Driver: Margarita Gonzales MD (Physician) [facility] Service: Endocrinology Initial Consult Note Date of Admission: 02/06/2016 Reason for Consultation: DKA Requesting Physician: Hospitalist History Obtained From: patient, chart review CHIEF COMPLAINT: High sugars HISTORY OF PRESENT ILLNESS The patient is 35 y.o. male with significant past medical history of T1DM with recurrent DK A, Schizophrenia, depression who presents with DKA. Per outside records - pt presented [facility] after several days of "lying on the cou ch." Pt has recently been discharged from his mcc 2/2 marijuana use. Grandmother has rece ntly . Family members thought pt was simply suffering from depression over the pa st few days. Presented to [facility], found to have pH of 6.01 on ABG and CO2 of 5. Transferred to [facility], pt has now received at least [...] (02/05 850) SpO2: [100 %] 100 % (02/06 0850) Height: [176.5 cm (5' 9.5")] 176.5 cm (5' 9.5") (02/06 0850) Weight: [55.974 kg (123 lb 6.4 oz)] 55.974 kg (123 lb 6.4 oz) (02/06 0850) BMI (Calculated): [18] 18 (02/05 850) Physical [...] insulin regimen at the appropriate time. -recommend staff educator Discussed directly with attending hospitalist today [...] | | | Fingerstick | performed at [facility];[address] | | LAB | | | | [address];[place] | | | | | | [address] | | | | + + + [...] | | | Fingerstick | performed at [facility];[address] | | LAB | | | | [address];[place] | | | | | | [address] | | | | + + + [...] EXTERNAL | | | | performed at [facility], [address] | K/uL | LAB | | | | [address], | | | | | | [place] [address] | | | | + + + + + + | Non- | 3.53 (L)Comment: Testing | 4.20 - 5.70 | EXTERNAL | | | Red Blood | performed at [facility], [address] | M/uL | LAB | | | Cells | [address], | | | | | Counted | [place] [address] | | | | + + + + + + | Hemoglobin | 11.5 (L)Comment: Testing | 13.2 - 17.0 | EXTERNAL | | | | performed at [facility], [address] | g/dL | LAB | | | | [address], | | | | | | [place] [address] | | | | + + + + + + | Hematocrit, | 32.3 (L)Comment: Testing | 39.0 - 50.0 % | EXTERNAL | | | POC | performed at [facility], [address] | | LAB | | | | [address], | | | | | | [place] [address] | | | | + + + + + + | MCV | 91.6Comment: Testing | 80.0 - 100.0 fl | EXTERNAL | | | | performed at [facility], [address] | | LAB | | | | [address], | | | | | | [place] [address] | | | | + + + + + + | MCH | 32.6Comment: Testing | 27.0 - 34.0 pg | EXTERNAL | | | | performed at [facility], [address] | | LAB | | | | [address], | | | | | | [place] [address] | | | | + + + [...] | | LAB | | | | [address], | | | | | | [place] [address] | | | | + + + + + + | Platelet | 218Comment: Testing | 150 - 400 K/uL | EXTERNAL | | | Count | performed at [facility], [address] | | LAB | | | Plasma | [address], | | | | | | [place] [address] | | | | + + + + + + | MPV | 7.6Comment: Testing | fl | EXTERNAL | | | | performed at [facility], [address] | | LAB | | | | [address], | | | | | | [place] [address] | | | | + + + [...] EXTERNAL | | | | performed at [facility], [address] | | LAB | | | | [address], | | | | | | [place] [address] | | | | + + + [...] [address], | | | | | | [place] [address] | | | | + + + [...] mmol/L | LAB | | | | [address], | | | | | | [place] [address] | | | | + + + + + + | K | 3.2 (L)Comment: Testing | 3.5 - 4.9 | EXTERNAL | | | | performed at [facility], [address] | mmol/L | LAB | | | | [address], | | | | | | [place] [address] | | | | + + + + + + | Cl | 100Comment: Testing | 99 - 109 mmol/L | EXTERNAL | | | | performed at [facility], [address] | | LAB | | | | [address], | | | | | | [place] [address] | | | | + + + + + + | CO2 | 22 (L)Comment: Testing | 23 - 32 mmol/L | EXTERNAL | | | | performed at [facility], [address] | | LAB | | | | [address], | | | | | | [place] [address] | | | | + + + + + + | Anion Gap | 14Comment: Testing | 5 - 20 mmol/L | EXTERNAL | | | | performed at [facility], [address] | | LAB | | | | [address], | | | | | | [place] [address] | | | | + + + + + + | Glucose, | 282 (H)Comment: Testing | 65 - 99 mg/dL | EXTERNAL | | | Fasting | performed at [facility], [address] | | LAB | | | | [address], | | | | | | [place] [address] | | | | + + + + + + | BUN | 15Comment: Testing | 8 - 25 mg/dL | EXTERNAL | | | | performed at [facility], [address] | | LAB | | | [address], | | | | | | [place] [address] | | | | + + + + + + | Creatinine | 0.8Comment: Testing | 0.70 - 1.30 | EXTERNAL | | | | performed at [facility], [address] | mg/dL | LAB | | | | [address], | | | | | | [place] [address] | | | | + + + + + + | BUN/Creatin | 19Comment: Testing | | EXTERNAL | | | ine Ratio | performed at [facility], [address] | | LAB | | | | [address], | | | | | | [place] [address] | | | | + + + + + + | Calcium | 7.7 (L)Comment: Testing | 8.5 - 10.5 | EXTERNAL | | | | performed at [facility], [address] | mg/dL | LAB | | | | [address], | | | | | | [place] [address] | | | | + + + + + + | Protein, | 4.8 (L)Comment: Testing | 6.3 - 8.2 g/dL | EXTERNAL | | | Total | performed at [facility], [address] | | LAB | | | | [address], | | | | | | [place] [address] | | | | + + + + + + | Albumin | 2.3 (L)Comment: Testing | 3.6 - 5.0 g/dL | EXTERNAL | | | | performed at [facility], [address] | | LAB | | | | [address], | | | | | | [place] [address] | | | | + + + + + + | Globulin | 2.5Comment: Testing | 1.3 - 4.9 g/dL | EXTERNAL | | | | performed at [facility], [address] | | LAB | | | | [address], | | | | | | [place] [address] | | | | + + + + + + | A/G Ratio | 0.9 (L)Comment: Testing | 1.0 - 2.4 | EXTERNAL | | | | performed at [facility], [address] | | LAB | | | | [address], | | | | | | [place] [address] | | | | + + + + + + | Bilirubin | 0.2Comment: Testing | 0.1 - 1.5 mg/dL | EXTERNAL | | | Total | performed at [facility], [address] | | LAB | | | | [address], | | | | | | [place] [address] | | | | + + + + + + | ALP, | 87Comment: Testing | 35 - 115 U/L | EXTERNAL | | | External | performed at [facility], [address] | | LAB | | | | [address], | | | | | | [place] [address] | | | | + + + + + + | AST | 15Comment: Testing | 10 - 45 U/L | EXTERNAL | | | | performed at [facility], [address] | | LAB | | | | [address], | | | | | | [place] [address] | | | | + + + + + + | ALT | 17Comment: Testing | 10 - 65 U/L | EXTERNAL | | | | performed at [facility], [address] | | LAB | | | | [address], | | | | | | [place] [address] | | | | + + + [...] | | | | | | at [facility], [address] | | | | | | [address], | | | | | | [place] [address] | | | | + + + [...] | | | Fingerstick | performed at [facility];[address] | | LAB | | | | [address];[place], [place] | | | | | | [address] | | | | + + + [...] EXTERNAL | | | | performed at [facility] | | LAB | | | | [address];[place], [place] | | | | | | [address] | | | | + + + [...] EXTERNAL | | | | performed at [facility];[address] | | LAB | | | | [address];[place] | | | | | | [address] | | | | + + + [...] EXTERNAL | | | | performed at [facility];[address] | mmol/L | LAB | | | | [address];[place] | | | | | | [address] | | | | + + + + + + | K | 3.8Comment: Testing | 3.5 - 4.9 | EXTERNAL | | | | performed at [facility];[address] | mmol/L | LAB | | | | [address];[place] | | | | | | [address] | | | | + + + + + + | Cl | 99Comment: Testing | 99 - 109 mmol/L | EXTERNAL | | | | performed at [facility];[address] | | LAB | | | | [address];[place] | | | | | | [address] | | | | + + + + + + | CO2 | 21 (L)Comment: Testing | 23 - 32 mmol/L | EXTERNAL | | | | performed at [facility];[address] | | LAB | | | | [address];[place] | | | | | | [address] | | | | + + + + + + | Anion Gap | 13Comment: Testing | 5 - 20 mmol/L | EXTERNAL | | | | performed at [facility];[address] | | LAB | | | | [address];[place] | | | | | | [address] | | | | + + + + + + | Glucose, | 241 (H)Comment: Testing | 65 - 99 mg/dL | EXTERNAL | | | Fasting | performed at [facility];[address] | | LAB | | | | [address];[place] | | | | | | [address] | | | | + + + + + + | BUN | 10Comment: Testing | 8 - 25 mg/dL | EXTERNAL | | | | performed at [facility];[address] | | LAB | | | | [address];[place] | | | | | | [address] | | | | + + + + + + | Creatinine | 0.95Comment: Testing | 0.70 - 1.30 | EXTERNAL | | | | performed at [facility];[address] | mg/dL | LAB | | | | [address];[place] | | | | | | [address] | | | | + + + + + + | BUN/Creatin | 10Comment: Testing | | EXTERNAL | | | ine Ratio | performed at [facility];[address] | | LAB | | | | [address];[place] | | | | | | [address] | | | | + + + + + + | Calcium | 7.9 (L)Comment: Testing | 8.5 - 10.5 | EXTERNAL | | | | performed at [facility];888 | mg/dL | LAB | | | | [address];[place] | | | | | | [address] | | | | + + + [...] | | | | | | at [facility];[address] [place] [address] | | | | | | [facility];[place] [address] | | | | + + + [...] | | | Fingerstick | performed at [facility];[address] | | LAB | | | | [address];[place], [place] | | | | | | [address] | | | | + + + [...] EXTERNAL | | | | performed at [facility];[address] | | LAB | | | | [address];[place] | | | | | | [address] | | | | + + + [...] LAB | | | | performed at [facility];[address] | | | | | | [address];[place], [place] | | | | | | [address] | | | | + + + [...] EXTERNAL | | | | performed at [facility];888 | mmol/L | LAB | | | | [address];[place] | | | | | | [address] | | | | + + + + + + | K | 3.8Comment: SLT | 3.5 - 4.9 | EXTERNAL | | | | HEMOLYSISTesting | mmol/L | LAB | | | | performed at [facility];[address] | | | | | | [address];[place] | | | | | | [address] | | | | + + + + + + | Cl | 102Comment: Testing | 99 - 109 mmol/L | EXTERNAL | | | | performed at [facility];[address] | | LAB | | | | [address];[place] | | | | | | [address] | | | | + + + + + + | CO2 | 20 (L)Comment: Testing | 23 - 32 mmol/L | EXTERNAL | | | | performed at [facility];888 | | LAB | | | | [address];[place] | | | | | | [address] | | | | + + + + + + | Anion Gap | 12Comment: Testing | 5 - 20 mmol/L | EXTERNAL | | | | performed at [facility];[address] | | LAB | | | | [address];[place] | | | | | | [address] | | | | + + + + + + | Glucose, | 250 (H)Comment: Testing | 65 - 99 mg/dL | EXTERNAL | | | Fasting | performed at [facility];888 | | LAB | | | | [address];[place] | | | | | | [address] | | | | + + + + + + | BUN | 8Comment: Testing | 8 - 25 mg/dL | EXTERNAL | | | | performed at [facility];[address] | | LAB | | | | [address];[place] | | | | | | [address] | | | | + + + + + + | Creatinine | 0.83Comment: Testing | 0.70 - 1.30 | EXTERNAL | | | | performed at [facility];888 | mg/dL | LAB | | | | [address];[place] | | | | | | [address] | | | | + + + + + + | BUN/Creatin | 10Comment: Testing | | EXTERNAL | | | ine Ratio | performed at [facility];[address] | | LAB | | | | [address];[place] | | | | | | [address] | | | | + + + + + + | Calcium | 7.8 (L)Comment: Testing | 8.5 - 10.5 | EXTERNAL | | | | performed at [facility];888 | mg/dL | LAB | | | | [address];[place] | | | | | | [address] | | | | + + + [...] | | | | | | at [facility];[address] [place] [address] | | | | | | vd;[place] [address] | | | | + + + [...] | | | Fingerstick | performed at [facility];888 | | LAB | | | | [address];[place] | | | | | | [address] | | | | + + + [...] EXTERNAL | | | | performed at [facility] | | LAB | | | | [address];[place], [place] | | | | | | [address] | | | | + + + [...] EXTERNAL | | | | performed at [facility] | | LAB | | | | [address] [facility];[place], [place] | | | | | | [address] | | | | + + + [...] EXTERNAL | | | | performed at [facility];888 | mmol/L | LAB | | | | [address];[place] | | | | | | [address] | | | | + + + + + + | K | 3.3 (L)Comment: Testing | 3.5 - 4.9 | EXTERNAL | | | | performed at [facility];888 | mmol/L | LAB | | | | [address];[place] | | | | | | [address] | | | | + + + + + + | Cl | 106Comment: Testing | 99 - 109 mmol/L | EXTERNAL | | | | performed at [facility];[address] | | LAB | | | | [address];[place] | | | | | | [address] | | | | + + + + + + | CO2 | 16 (L)Comment: Testing | 23 - 32 mmol/L | EXTERNAL | | | | performed at [facility];[address] | | LAB | | | | [address];[place] | | | | | | [address] | | | | + + + + + + | Anion Gap | 14Comment: Testing | 5 - 20 mmol/L | EXTERNAL | | | | performed at [facility];[address] | | LAB | | | | [address];[place] | | | | | | [address] | | | | + + + + + + | Glucose, | 340 (H)Comment: Testing | 65 - 99 mg/dL | EXTERNAL | | | Fasting | performed at [facility];[address] | | LAB | | | | [address];[place] | | | | | | [address] | | | | + + + + + + | BUN | 7 (L)Comment: Testing | 8 - 25 mg/dL | EXTERNAL | | | | performed at [facility];[address] | | LAB | | | | [address];[place] | | | | | | [address] | | | | + + + + + + | Creatinine | 0.70Comment: Testing | 0.70 - 1.30 | EXTERNAL | | | | performed at [facility];888 | mg/dL | LAB | | | | [address];[place] | | | | | | [address] | | | | + + + + + + | BUN/Creatin | 10Comment: Testing | | EXTERNAL | | | ine Ratio | performed at [facility];[address] | | LAB | | | | [address];[place] | | | | | | [address] | | | | + + + + + + | Calcium | 6.9 (L)Comment: Testing | 8.5 - 10.5 | EXTERNAL | | | | performed at [facility];888 | mg/dL | LAB | | | | [address];[place], [place] | | | | | | [address] | | | | + + + [...] | | | | | | at [facility];[address];[place] [address] | | | | + + + [...] | | | Fingerstick | performed at [facility];888 | | LAB | | | | [address];[place] | | | | | | [address] | | | | + + + [...] | | | Fingerstick | performed at [facility];[address] | | LAB | | | | [address];[place] | | | | | | [address] | | | | + + + [...] | | | Fingerstick | performed at [facility];888 | | LAB | | | | [address];[place] | | | | | | [address] | | | | + + + [...] | | | Fingerstick | performed at [facility];[address] | | LAB | | | | [address];[place], [place] | | | | | | [address] | | | | + + + [...] EXTERNAL | | | | performed at [facility] | | LAB | | | | [address];[place], [place] | | | | | | [address] | | | | + + + [...] EXTERNAL | | | | performed at [facility];888 | | LAB | | | | [address];[place], [place] | | | | | | [address] | | | | + + + [...] EXTERNAL | | | | performed at [facility];888 | mmol/L | LAB | | | | [address];[place] | | | | | | [address] | | | | + + + + + + | K | 3.1 (L)Comment: Testing | 3.5 - 4.9 | EXTERNAL | | | | performed at [facility];888 | mmol/L | LAB | | | | [address];[place] | | | | | | [address] | | | | + + + + + + | Cl | 107Comment: Testing | 99 - 109 mmol/L | EXTERNAL | | | | performed at [facility];[address] | | LAB | | | | [address];[place] | | | | | | [address] | | | | + + + + + + | CO2 | 16 (L)Comment: Testing | 23 - 32 mmol/L | EXTERNAL | | | | performed at [facility];[address] | | LAB | | | | [address];[place] | | | | | | [address] | | | | + + + + + + | Anion Gap | 13Comment: Testing | 5 - 20 mmol/L | EXTERNAL | | | | performed at [facility];[address] | | LAB | | | | [address];[place] | | | | | | [address] | | | | + + + + + + | Glucose, | 173 (H)Comment: Testing | 65 - 99 mg/dL | EXTERNAL | | | Fasting | performed at [facility];[address] | | LAB | | | | [address];[place] | | | | | | [address] | | | | + + + + + + | BUN | 7 (L)Comment: Testing | 8 - 25 mg/dL | EXTERNAL | | | | performed at [facility];[address] | | LAB | | | | [address];[place] | | | | | | [address] | | | | + + + + + + | Creatinine | 0.63 (L)Comment: Testing | 0.70 - 1.30 | EXTERNAL | | | | performed at [facility];888 | mg/dL | LAB | | | | [address];[place] | | | | | | [address] | | | | + + + + + + | BUN/Creatin | 11Comment: Testing | | EXTERNAL | | | ine Ratio | performed at [facility];[address] | | LAB | | | | [address];[place] | | | | | | [address] | | | | + + + + + + | Calcium | 7.2 (L)Comment: Testing | 8.5 - 10.5 | EXTERNAL | | | | performed at [facility];888 | mg/dL | LAB | | | | [address];[place], [place] | | | | | | [address] | | | | + + + [...] | | | | | | at [facility];[address];[place] [address] | | | | + + + [...] | | | Fingerstick | performed at [facility] | | LAB | | | | [address];[place] | | | | | | [address] | | | | + + + [...] | | | Fingerstick | performed at [facility];[address] | | LAB | | | | [address];[place], [place] | | | | | | [address] | | | | + + + [...] | | | Fingerstick | performed at [facility];888 | | LAB | | | | [address];[place] | | | | | | [address] | | | | + + + [...] + + | Historically converted procedure from [facility] environment | EXTERNAL LAB | + [...] | | | Fingerstick | performed at [facility];[address] | | LAB | | | | [address];[place] | | | | | | [address] | | | | + + + [...] EXTERNAL | | | | performed at [facility], [address] | K/uL | LAB | | | | [address], | | | | | | [place] [address] | | | | + + + + + + | Non- | 3.17 (L)Comment: Testing | 4.20 - 5.70 | EXTERNAL | | | Red Blood | performed at [facility], [address] | M/uL | LAB | | | Cells | [address], | | | | | Counted | [place] [address] | | | | + + + + + + | Hemoglobin | 10.2 (L)Comment: Testing | 13.2 - 17.0 | EXTERNAL | | | | performed at [facility], [address] | g/dL | LAB | | | | [address], | | | | | | [place] [address] | | | | + + + + + + | Hematocrit, | 29.6 (L)Comment: Testing | 39.0 - 50.0 % | EXTERNAL | | | POC | performed at [facility], [address] | | LAB | | | | [address], | | | | | | [place] [address] | | | | + + + + + + | MCV | 93.3Comment: Testing | 80.0 - 100.0 fl | EXTERNAL | | | | performed at [facility], [address] | | LAB | | | | [address], | | | | | | [place] [address] | | | | + + + + + + | MCH | 32.0Comment: Testing | 27.0 - 34.0 pg | EXTERNAL | | | | performed at [facility], [address] | | LAB | | | | [address], | | | | | | [place] [address] | | | | + + + + + + | MCHC | 34.3Comment: Testing | 32.0 - 35.5 | EXTERNAL | | | | performed at [facility], [address] | g/dL | LAB | | | | [address], | | | | | | [place] [address] | | | | + + + + + + | RDW-CV | 46.4Comment: Testing | 37 - 53 fl | EXTERNAL | | | | performed at [facility], [address] | | LAB | | | | [address], | | | | | | [place] [address] | | | | + + + + + + | Platelet | 209Comment: Testing | 150 - 400 K/uL | EXTERNAL | | | Count | performed at [facility], [address] | | LAB | | | Plasma | [address], | | | | | | [place] [address] | | | | + + + + + + | MPV | 7.5Comment: Testing | fl | EXTERNAL | | | | performed at [facility], [address] | | LAB | | | | [address], | | | | | | [place] [address] | | | | + + + + + + | Differentia | AUTOMATEDComment: | | EXTERNAL | | | l Type | Testing performed at | | LAB | | | | [facility], [address] | | | | | | [place] | | | | | | [address] | | | | + + + + + + | % Segmented | 78.26Comment: Testing | % | EXTERNAL | | | | performed at [facility], [address] | | LAB | | | Neutrophils | [address], | | | | | | [place] [address] | | | | + + + + + + | % | 14.07Comment: Testing | % | EXTERNAL | | | Lymphocytes | performed at [facility], [address] | | LAB | | | | [address], | | | | | | [place] [address] | | | | + + + + + + | % Monocytes | 6.80Comment: Testing | % | EXTERNAL | | | | performed at [facility], [address] | | LAB | | | | [address], | | | | | | [place] [address] | | | | + + + + + + | % | 0.69Comment: Testing | % | EXTERNAL | | | Eosinophils | performed at [facility], [address] | | LAB | | | | [address], | | | | | | [place] [address] | | | | + + + + + + | % Basophils | 0.18Comment: Testing | % | EXTERNAL | | | | performed at [facility], [address] | | LAB | | | | [address], | | | | | | [place] [address] | | | | + + + + + + | Absolute | 6.75Comment: Testing | 1.90 - 7.40 | EXTERNAL | | | Segmented | performed at [facility], [address] | K/uL | LAB | | | Neutrophils | [address], | | | | | | [place] [address] | | | | + + + + + + | Absolute | 1.21Comment: Testing | 1.00 - 3.90 | EXTERNAL | | | Lymphocytes | performed at [facility], [address] | K/uL | LAB | | | | [address], | | | | | | [place] [address] | | | | + + + + + + | Absolute | 0.59Comment: Testing | 0.00 - 0.80 | EXTERNAL | | | Monocytes | performed at [facility], [address] | K/uL | LAB | | | | [address], | | | | | | [place] [address] | | | | + + + + + + | Absolute | 0.06Comment: Testing | 0.00 - 0.50 | EXTERNAL | | | Eosinophils | performed at [facility], [address] | K/uL | LAB | | | | [address], | | | | | | [place] [address] | | | | + + + + + + | Absolute | 0.02Comment: Testing | 0.00 - 0.10 | EXTERNAL | | | Basophils | performed at [facility], [address] | K/uL | LAB | | | | [address], | | | | | | [place] [address] | | | | + + + [...] EXTERNAL | | | | performed at [facility];[address] | | LAB | | | | [address];[place], [place] | | | | | | [address] | | | | + + + [...] EXTERNAL | | | | performed at [facility] | | LAB | | | | [address];[place], [place] | | | | | | [address] | | | | + + + [...] EXTERNAL | | | | performed at [facility];888 | mmol/L | LAB | | | | [address];[place] | | | | | | [address] | | | | + + + + + + | K | 2.9 (L)Comment: Testing | 3.5 - 4.9 | EXTERNAL | | | | performed at [facility];888 | mmol/L | LAB | | | | [address];[place] | | | | | | [address] | | | | + + + + + + | Cl | 108Comment: Testing | 99 - 109 mmol/L | EXTERNAL | | | | performed at [facility];[address] | | LAB | | | | [address];[place] | | | | | | [address] | | | | + + + + + + | CO2 | 15 (L)Comment: Testing | 23 - 32 mmol/L | EXTERNAL | | | | performed at [facility];[address] | | LAB | | | | [address];[place] | | | | | | [address] | | | | + + + + + + | Anion Gap | 14Comment: Testing | 5 - 20 mmol/L | EXTERNAL | | | | performed at [facility];[address] | | LAB | | | | [address];[place] | | | | | | [address] | | | | + + + + + + | Glucose, | 197 (H)Comment: Testing | 65 - 99 mg/dL | EXTERNAL | | | Fasting | performed at [facility];[address] | | LAB | | | | [address];[place] | | | | | | [address] | | | | + + + + + + | BUN | 8Comment: Testing | 8 - 25 mg/dL | EXTERNAL | | | | performed at [facility];[address] | | LAB | | | | [address];[place] | | | | | | [address] | | | | + + + + + + | Creatinine | 0.64 (L)Comment: Testing | 0.70 - 1.30 | EXTERNAL | | | | performed at [facility];888 | mg/dL | LAB | | | | [address];[place] | | | | | | [address] | | | | + + + + + + | BUN/Creatin | 12Comment: Testing | | EXTERNAL | | | ine Ratio | performed at [facility];[address] | | LAB | | | | [address];[place] | | | | | | [address] | | | | + + + + + + | Calcium | 7.1 (L)Comment: Testing | 8.5 - 10.5 | EXTERNAL | | | | performed at [facility];888 | mg/dL | LAB | | | | [address];[place] | | | | | | [address] | | | | + + + [...] | | | | | | at [facility];[address] | | | | | | [address];[place] [address] | | | | + + + [...] | | | Fingerstick | performed at [facility];[address] | | LAB | | | | [address];[place] | | | | | | [address] | | | | + + + [...] | | | Fingerstick | performed at [facility];[address] | | LAB | | | | [address];[place] | | | | | | [address] | | | | + + + [...] | | | Fingerstick | performed at [facility];[address] | | LAB | | | | [address];[place] | | | | | | [address] | | | | + + + [...] | | | Fingerstick | performed at [facility];[address] | | LAB | | | | [address];[place] | | | | | | [address] | | | | + + + [...] EXTERNAL | | | | performed at [facility] | | LAB | | | | [address];[place] | | | | | | [address] | | | | + + + [...] EXTERNAL | | | | performed at [facility];[address] | | LAB | | | | [address];[place], [place] | | | | | | [address] | | | | + + + [...] EXTERNAL | | | | performed at [facility];888 | mmol/L | LAB | | | | [address];[place] | | | | | | [address] | | | | + + + + + + | K | 3.0 (L)Comment: Testing | 3.5 - 4.9 | EXTERNAL | | | | performed at [facility];888 | mmol/L | LAB | | | | [address];[place] | | | | | | [address] | | | | + + + + + + | Cl | 108Comment: Testing | 99 - 109 mmol/L | EXTERNAL | | | | performed at [facility];[address] | | LAB | | | | [address];[place] | | | | | | [address] | | | | + + + + + + | CO2 | 14 ()Comment: CALLED | 23 - 32 mmol/L | EXTERNAL | | | | TO CODY Swain RN/CATHI AT | | LAB | | | | 0134 BY MWREAD BACK | | | | | | RESULTS VERIFIEDTesting | | | | | | performed at [facility];[address] | | | | | | [address];[place] | | | | | | [address] | | | | + + + + + + | Anion Gap | 14Comment: Testing | 5 - 20 mmol/L | EXTERNAL | | | | performed at [facility];[address] | | LAB | | | | [address];[place] | | | | | | [address] | | | | + + + + + + | Glucose, | 213 (H)Comment: Testing | 65 - 99 mg/dL | EXTERNAL | | | Fasting | performed at [facility];[address] | | LAB | | | | [address];[place] | | | | | | [address] | | | | + + + + + + | BUN | 10Comment: Testing | 8 - 25 mg/dL | EXTERNAL | | | | performed at [facility];[address] | | LAB | | | | [address];[place] | | | | | | [address] | | | | + + + + + + | Creatinine | 0.70Comment: Testing | 0.70 - 1.30 | EXTERNAL | | | | performed at [facility];888 | mg/dL | LAB | | | | [address];[place] | | | | | | [address] | | | | + + + + + + | BUN/Creatin | 14Comment: Testing | | EXTERNAL | | | ine Ratio | performed at [facility];[address] | | LAB | | | | [address];[place] | | | | | | [address] | | | | + + + + + + | Calcium | 6.9 (L)Comment: Testing | 8.5 - 10.5 | EXTERNAL | | | | performed at [facility];888 | mg/dL | LAB | | | | [address];[place] | | | | | | [address] | | | | + + + [...] | | | | | | at [facility];[address] | | | | | | [address];[place] [address] | | | | + + + [...] | | | Fingerstick | performed at [facility];[address] | | LAB | | | | [address];[place] | | | | | | [address] | | | | + + + [...] | | | Fingerstick | performed at [facility];[address] | | LAB | | | | [address];[place] | | | | | | [address] | | | | + + + [...] | | | Fingerstick | performed at [facility];[address] | | LAB | | | | [address];[place] | | | | | | [address] | | | | + + + [...] EXTERNAL | | | | performed at [facility];[address] | | LAB | | | | [address];[place], [place] | | | | | | [address] | | | | + + + [...] EXTERNAL | | | | performed at [facility];[address] | | LAB | | | | [address];[place], [place] | | | | | | [address] | | | | + + + [...] EXTERNAL | | | | performed at [facility];888 | mmol/L | LAB | | | | [address];[place] | | | | | | [address] | | | | + + + + + + | K | 3.3 (L)Comment: Testing | 3.5 - 4.9 | EXTERNAL | | | | performed at [facility];888 | mmol/L | LAB | | | | [address];[place] | | | | | | [address] | | | | + + + + + + | Cl | 111 (H)Comment: Testing | 99 - 109 mmol/L | EXTERNAL | | | | performed at [facility];[address] | | LAB | | | | [address];[place] | | | | | | [address] | | | | + + + + + + | CO2 | 16 (L)Comment: Testing | 23 - 32 mmol/L | EXTERNAL | | | | performed at [facility];[address] | | LAB | | | | [address];[place] | | | | | | [address] | | | | + + + + + + | Anion Gap | 13Comment: Testing | 5 - 20 mmol/L | EXTERNAL | | | | performed at [facility];[address] | | LAB | | | | [address];[place] | | | | | | [address] | | | | + + + + + + | Glucose, | 125 (H)Comment: Testing | 65 - 99 mg/dL | EXTERNAL | | | Fasting | performed at [facility];[address] | | LAB | | | | [address];[place] | | | | | | [address] | | | | + + + + + + | BUN | 10Comment: Testing | 8 - 25 mg/dL | EXTERNAL | | | | performed at [facility];[address] | | LAB | | | | [address];[place] | | | | | | [address] | | | | + + + + + + | Creatinine | 0.82Comment: Testing | 0.70 - 1.30 | EXTERNAL | | | | performed at [facility];888 | mg/dL | LAB | | | | [address];[place] | | | | | | [address] | | | | + + + + + + | BUN/Creatin | 12Comment: Testing | | EXTERNAL | | | ine Ratio | performed at [facility];[address] | | LAB | | | | [address];[place] | | | | | | [address] | | | | + + + + + + | Calcium | 6.6 (L)Comment: Testing | 8.5 - 10.5 | EXTERNAL | | | | performed at [facility];888 | mg/dL | LAB | | | | [address];[place] | | | | | | [address] | | | | + + + [...] | | | | | | at [facility];[address] [facility] | | | | | | [address]vd;[place] [address] | | | | + + + [...] | | | Fingerstick | performed at [facility];[address] | | LAB | | | | [address];[place] | | | | | | [address] | | | | + + + [...] | | | Fingerstick | performed at [facility];[address] | | LAB | | | | [address];[place], [place] | | | | | | [address] | | | | + + + [...] | | | Fingerstick | performed at [facility];[address] | | LAB | | | | [address];[place], [place] | | | | | | [address] | | | | + + + [...] | | | Fingerstick | performed at [facility];88 | | LAB | | | | [address];[place] | | | | | | [address] | | | | + + + [...] EXTERNAL | | | | performed at [facility];[address] | | LAB | | | | [address];[place] | | | | | | [address] | | | | + + + [...] EXTERNAL | | | | performed at [facility];[address] | | LAB | | | | [address];[place] | | | | | | [address] | | | | + + + [...] | | LAB | | | | [facility];[address] [place] [address] | | | | | | Blvd;[place] [address] | | | | + + + [...] EXTERNAL | | | | performed at [facility];888 | mmol/L | LAB | | | | [address];[place] | | | | | | [address] | | | | + + + + + + | K | 2.7 (LL)Comment: CALLED | 3.5 - 4.9 | EXTERNAL | | | | NURSING UNITREAD BACK | mmol/L | LAB | | | | RESULTS VERIFIEDIVAN K | | | | | | AT 1748 JGRTesting | | | | | | performed at [facility];[address] | | | | | | [address];[place] | | | | | | [address] | | | | + + + + + + | Cl | 110 (H)Comment: Testing | 99 - 109 mmol/L | EXTERNAL | | | | performed at [facility];[address] | | LAB | | | | [address];[place] | | | | | | [address] | | | | + + + + + + | CO2 | 15 (L)Comment: Testing | 23 - 32 mmol/L | EXTERNAL | | | | performed at [facility];[address] | | LAB | | | | [address];[place] | | | | | | [address] | | | | + + + + + + | Anion Gap | 15Comment: Testing | 5 - 20 mmol/L | EXTERNAL | | | | performed at [facility];[address] | | LAB | | | | [address];[place] | | | | | | [address] | | | | + + + + + + | Glucose, | 133 (H)Comment: Testing | 65 - 99 mg/dL | EXTERNAL | | | Fasting | performed at [facility];[address] | | LAB | | | | [address];[place] | | | | | | [address] | | | | + + + + + + | BUN | 14Comment: Testing | 8 - 25 mg/dL | EXTERNAL | | | | performed at [facility];[address] | | LAB | | | | [address];[place] | | | | | | [address] | | | | + + + + + + | Creatinine | 0.92Comment: Testing | 0.70 - 1.30 | EXTERNAL | | | | performed at [facility];[address] | mg/dL | LAB | | | | [address];[place] | | | | | | [address] | | | | + + + + + + | BUN/Creatin | 15Comment: Testing | | EXTERNAL | | | ine Ratio | performed at [facility];[address] | | LAB | | | | [address];[place] | | | | | | [address] | | | | + + + + + + | Calcium | 6.5 (L)Comment: Testing | 8.5 - 10.5 | EXTERNAL | | | | performed at [facility];[address] | mg/dL | LAB | | | | [facility];[place], [place] | | | | | | [address] | | | | + + + [...] | | | | | | at [facility];[address];[place] [address] | | | | + + + [...] | | | Fingerstick | performed at [facility] | | LAB | | | | [address];[place] | | | | | | [address] | | | | + + + [...] | | | Fingerstick | performed at [facility];[address] | | LAB | | | | [address];[place], [place] | | | | | | [address] | | | | + + + [...] | | | Fingerstick | performed at [facility];[address] | | LAB | | | | [address];[place], [place] | | | | | | [address] | | | | + + + [...] | | | Fingerstick | performed at [facility];[address] | | LAB | | | | [address];[place] | | | | | | [address] | | | | + + + [...] EXTERNAL | | | | performed at [facility] | | LAB | | | | [address];[place], [place] | | | | | | [address] | | | | + + + [...] EXTERNAL | | | | performed at [facility];[address] | | LAB | | | | [address];[place], [place] | | | | | | [address] | | | | + + + [...] | | LAB | | | | [facility];[address] [place] [address] | | | | | | Blvd;[place] [address] | | | | + + + [...] EXTERNAL | | | | performed at [facility];[address] | mmol/L | LAB | | | | [address];[place] | | | | | | [address] | | | | + + + + + + | K | 3.1 (L)Comment: Testing | 3.5 - 4.9 | EXTERNAL | | | | performed at [facility];[address] | mmol/L | LAB | | | | [address];[place] | | | | | | [address] | | | | + + + + + + | Cl | 113 (H)Comment: Testing | 99 - 109 mmol/L | EXTERNAL | | | | performed at [facility];[address] | | LAB | | | | [address];[place] | | | | | | [address] | | | | + + + + + + | CO2 | 7 (LL)Comment: RESULT | 23 - 32 mmol/L | EXTERNAL | | | | READ BACK BY:CHARLES Mackay6RP | | LAB | | | | AT 1340.EAPTesting | | | | | | performed at [facility];[address] | | | | | | [address];[place] | | | | | | [address] | | | | + + + + + + | Anion Gap | 23 (H)Comment: Testing | 5 - 20 mmol/L | EXTERNAL | | | | performed at [facility];[address] | | LAB | | | | [address];[place] | | | | | | [address] | | | | + + + + + + | Glucose, | 206 (H)Comment: Testing | 65 - 99 mg/dL | EXTERNAL | | | Fasting | performed at [facility];[address] | | LAB | | | | [address];[place] | | | | | | [address] | | | | + + + + + + | BUN | 18Comment: Testing | 8 - 25 mg/dL | EXTERNAL | | | | performed at [facility];[address] | | LAB | | | | [address];[place] | | | | | | [address] | | | | + + + + + + | Creatinine | 0.84Comment: Testing | 0.70 - 1.30 | EXTERNAL | | | | performed at [facility];[address] | mg/dL | LAB | | | | [address];[place] | | | | | | [address] | | | | + + + + + + | BUN/Creatin | 21Comment: Testing | | EXTERNAL | | | ine Ratio | performed at [facility];[address] | | LAB | | | | [address];[place] | | | | | | [address] | | | | + + + + + + | Calcium | 6.7 (L)Comment: Testing | 8.5 - 10.5 | EXTERNAL | | | | performed at [facility];[address] | mg/dL | LAB | | | | [address];[place] | | | | | | [address] | | | | + + + [...] | | | | | | at [facility];[address];[place] [address] | | | | + + + [...] | | | Fingerstick | performed at [facility];[address] | | LAB | | | | [address];[place], [place] | | | | | | [address] | | | | + + + [...] | | | Fingerstick | performed at [facility];[address] | | LAB | | | | [address];[place] | | | | | | [address] | | | | + + + [...] EXTERNAL | | | | performed at [facility];[address] | | LAB | | | | [address];[place], [place] | | | | | | [address] | | | | + + + [...] EXTERNAL | | | | performed at [facility];[address] | | LAB | | | | [address];[place], [place] | | | | | | [address] | | | | + + + [...] EXTERNAL | | | | performed at [facility];[address] | mmol/L | LAB | | | | [address];[place] | | | | | | [address] | | | | + + + + + + | K | 3.0 (L)Comment: Testing | 3.5 - 4.9 | EXTERNAL | | | | performed at [facility];[address] | mmol/L | LAB | | | | [address];[place] | | | | | | [address] | | | | + + + + + + | Cl | 113 (H)Comment: Testing | 99 - 109 mmol/L | EXTERNAL | | | | performed at [facility];[address] | | LAB | | | | [address];[place] | | | | | | [address] | | | | + + + + + + | CO2 | 6 (LL)Comment: CALLED | 23 - 32 mmol/L | EXTERNAL | | | | RESULTSREAD BACK RESULTS | | LAB | | | | CRISTAL/KATIA Scott AT | | | | | | 1110 BY SALTesting | | | | | | performed at [facility];[address] | | | | | | [address];[place] | | | | | | [address] | | | | + + + + + + | Anion Gap | 27 (H)Comment: Testing | 5 - 20 mmol/L | EXTERNAL | | | | performed at [facility];[address] | | LAB | | | | [address];[place] | | | | | | [address] | | | | + + + + + + | Glucose, | 214 (H)Comment: Testing | 65 - 99 mg/dL | EXTERNAL | | | Fasting | performed at [facility];[address] | | LAB | | | | [address];[place] | | | | | | [address] | | | | + + + + + + | BUN | 21Comment: Testing | 8 - 25 mg/dL | EXTERNAL | | | | performed at [facility];[address] | | LAB | | | | [address];[place] | | | | | | [address] | | | | + + + + + + | Creatinine | 0.87Comment: Testing | 0.70 - 1.30 | EXTERNAL | | | | performed at [facility];[address] | mg/dL | LAB | | | | [address];[place] | | | | | | [address] | | | | + + + + + + | BUN/Creatin | 24Comment: Testing | | EXTERNAL | | | ine Ratio | performed at [facility];[address] | | LAB | | | | [address];[place] | | | | | | [address] | | | | + + + + + + | Calcium | 6.8 (L)Comment: Testing | 8.5 - 10.5 | EXTERNAL | | | | performed at [facility];[address] | mg/dL | LAB | | | | [address];[place] | | | | | | [address] | | | | + + + [...] | | | | | | at [facility];[address] [place] [address] | | | | | | [facility];[place] [address] | | | | + + + [...] | | | Fingerstick | performed at [facility];[address] | | LAB | | | | [address];[place] | | | | | | [address] | | | | + + + [...] | | | Fingerstick | performed at [facility];[address] | | LAB | | | | [address];[place] | | | | | | [address] | | | | + + + [...] | | LAB | | | | [facility];[address];[place] [address] | | | | + + + [...] EXTERNAL | | | | performed at [facility];[address] | K/uL | LAB | | | | [address];[place] | | | | | | [address] | | | | + + + + + + | Non- | 2.80 (L)Comment: Testing | 4.20 - 5.70 | EXTERNAL | | | Red Blood | performed at [facility];[address] | M/uL | LAB | | | Cells | [address];[place] | | | | | Counted | [address] | | | | + + + + + + | Hemoglobin | 9.1 (L)Comment: Testing | 13.2 - 17.0 | EXTERNAL | | | | performed at [facility];[address] | g/dL | LAB | | | | [address];[place] | | | | | | [address] | | | | + + + + + + | Hematocrit, | 26.7 (L)Comment: Testing | 39.0 - 50.0 % | EXTERNAL | | | POC | performed at [facility];[address] | | LAB | | | | [address];[place] | | | | | | [address] | | | | + + + + + + | MCV | 95.4Comment: Testing | 80.0 - 100.0 fl | EXTERNAL | | | | performed at [facility];[address] | | LAB | | | | [address];[place] | | | | | | [address] | | | | + + + + + + | MCH | 32.3Comment: Testing | 27.0 - 34.0 pg | EXTERNAL | | | | performed at [facility];[address] | | LAB | | | | [address];[place] | | | | | | [address] | | | | + + + + + + | MCHC | 33.9Comment: Testing | 32.0 - 35.5 | EXTERNAL | | | | performed at [facility];[address] | g/dL | LAB | | | | [address];[place] | | | | | | [address] | | | | + + + + + + | RDW-CV | 47.3Comment: Testing | 37 - 53 fl | EXTERNAL | | | | performed at [facility];[address] | | LAB | | | | [address];[place] | | | | | | [address] | | | | + + + + + + | Platelet | 190Comment: Testing | 150 - 400 K/uL | EXTERNAL | | | Count | performed at [facility];[address] | | LAB | | | Plasma | [address];[place] | | | | | | [address] | | | | + + + + + + | MPV | 7.2Comment: Testing | fl | EXTERNAL | | | | performed at [facility];[address] | | LAB | | | | [address];[place] | | | | | | [address] | | | | + + + + + + | Differentia | MANUALComment: Testing | | EXTERNAL | | | l Type | performed at [facility];[address] | | LAB | | | | [address];[place] | | | | | | [address] | | | | + + + + + + | Segmented | 59Comment: Testing | % | EXTERNAL | | | Neutrophils | performed at [facility];[address] | | LAB | | | Manual | [address];[place] | | | | | | [address] | | | | + + + + + + | % Bands | 24Comment: Testing | % | EXTERNAL | | | | performed at [facility];[address] | | LAB | | | | [address];[place] | | | | | | [address] | | | | + + + + + + | % | 2Comment: Testing | % | EXTERNAL | | | Metamyelocy | performed at [facility];[address] | | LAB | | | edilson | [address];[place] | | | | | | [address] | | | | + + + + + + | Lymphocytes | 12Comment: Testing | % | EXTERNAL | | | Manual | performed at [facility];[address] | | LAB | | | | [address];[place] | | | | | | [address] | | | | + + + + + + | Monocytes | 3Comment: Testing | % | EXTERNAL | | | Manual | performed at [facility];[address] | | LAB | | | | [address];[place] | | | | | | [address] | | | | + + + + + + | Absolute | 5.18Comment: Testing | 1.90 - 7.40 | EXTERNAL | | | Neutrophils | performed at [facility];[address] | K/uL | LAB | | | | [address];[place] | | | | | | [address] | | | | + + + + + + | Bands | 2.10 (H)Comment: Testing | 0.00 - 0.20 | EXTERNAL | | | Manual | performed at [facility];[address] | K/uL | LAB | | | | [address];[place] | | | | | | [address] | | | | + + + + + + | Absolute | 0.18 (H)Comment: Testing | K/uL | EXTERNAL | | | Metamyelocy | performed at [facility];[address] | | LAB | | | [address] | [address];[place] | | | | | | [address] | | | | + + + + + + | Absolute | 1.05Comment: Testing | 1.00 - 3.90 | EXTERNAL | | | Lymphocytes | performed at [facility];[address] | K/uL | LAB | | | | [address];[place] | | | | | | [address] | | | | + + + + + + | Absolute | 0.26Comment: Testing | 0.00 - 0.80 | EXTERNAL | | | Monocytes | performed at [facility];[address] | K/uL | LAB | | | | [address];[place] | | | | | | [address] | | | | + + + + + + | Platelet | ADEQUATEComment: Testing | | EXTERNAL | | | Estimate | performed at [facility];[address] | | LAB | | | | [address];[place] | | | | | | [address] | | | | + + + + + + | RBC | NORMALComment: Testing | | EXTERNAL | | | Morphology | performed at [facility];[address] | | LAB | | | | [address];[place] | | | | | | [address] | | | | + + + [...] | | | | | performed at [facility];[address] | | | | | | [address] [facility];[place], [place] | | | | | | [address] | | | | + + + [...] | | | | | performed at [facility];[address] | | | | | | [address];[place], [place] | | | | | | [address] | | | | + + + [...] | EXTERNAL | | | A1c | [facility] | | LAB | | | [...] | | | | | performed at [facility], [address] | | | | | [address] [facility], | | | | | | [place] [address] | | | | + + + [...] | | | | | performed at [facility], [address] | | | | | | [facility], | | | | | | [place] [address] | | | | + + + [...] | | | | | performed at [facility];[address] | | | | | | [address];[place] | | | | | | [address] | | | | + + + [...] | | | | | performed at [facility];[address] | | | | | | [address];[place] | | | | | | [address] | | | | + + + [...] | | | | | performed at [facility];[address] | | | | | | [address];[place] | | | | | | [address] | | | | + + + [...] | | | | | performed at [facility];[address] | | | | | | [address];[place] | | | | | | [address] | | | | + + + [...] | | | | | performed at [facility];[address] | | | | | | [address];[place] | | | | | | [address] | | | | + + + + + + | BUN | 15Comment: POOR QUALITY | 8 - 25 mg/dL | EXTERNAL | | | | SPECIMEN FROM THE LINE | | LAB | | | | DRAW, CHARGES CREDITED, | | | | | | PATIENT REDRAWN.Testing | | | | | | performed at [facility];[address] | | | | | | [address];[place] | | | | | | [address] | | | | + + + [...] | | | | | performed at [facility];[address] | | | | | | [address];[place] | | | | | | [address] | | | | + + + + + + | BUN/Creatin | 26Comment: POOR QUALITY | | EXTERNAL | | | ine Ratio | SPECIMEN FROM THE LINE | | LAB | | | | DRAW, CHARGES CREDITED, | | | | | | PATIENT REDRAWN.Testing | | | | | | performed at [facility];[address] | | | | | | [address];[place] | | | | | | [id number] ON 02/05 | | | | | [...] | | | | | | at [facility];[address];[place] [address] | | | | + + + [...] | | | Fingerstick | performed at [facility];8 | | LAB | | | | [address];[place] | | | | | | [address] | | | | + + + [...]
--- OUTSIDE RECORDS SUMMARY | ~2020-02-12 | XMS | Encounter Summary ---
Demographics + + + | Address | [address] | | | [place] [address] | + + + | Home Phone | | + + + | Preferred Language | Unknown | + + + | Marital Status | Single | + + + | Restorationism Affiliation | [id number] | + + + | Race | White | + + + | Ethnic Group | Not or | + + + Author + + + | Author | [facility] | | | and Ryana | + + + | Organization | [facility] | | | [...] Providers + +------+ + | Care Senior Solutions Architect Name | Role | Phone | + [...] + + | 05/07/ | Hospital | [facility] | Vicky Méndez | Diabetic | | 2017 - | Encounter | MED CTR ICU [address] | MD [address] | ketoacidosis without | | | | [place], | [address] [place], | coma associated | | 05/09/ | | [place] [address] | [place] [address] | with type 1 diabetes | | 2017 | | [phone] | [phone] | mellitus (HCC) | | | | | | (Primary Dx); | | | | | Dougie Yin MD | Nausea; IDDM | | | | | [address] | (insulin dependent | | | | | [place] | diabetes mellitus) | | | | | [address] | (HCC) | | | | | [...] might be different fr om the original. [place] HOSPITALIST DISCHARGE SUMMARY Pt. Name/Age/: Joni [...] 3 times daily (with meals). aka: humaLOG KWIKPEN insulin lispro 100 units/mL [...] for meals and NIGHT for bedtime aka: humaLOG KWIKPEN HOSPITAL COURSE: Please refer to the H&P [...] minutes before your appointment Contact information: [address] [place] [address] DENIS Paul In 1 week. Specialty: Family Nurse Practitioner Contact information: [address] [place] [address] Condition: Patient being discharged with condition improved Diet: Carb control diet Less than 30 minutes were spent on discharge and coordination of post-hospital care. Electronically signed by: Dougie Yin MD, 05/09/2017 8:42 [facility] Portions of this chart may have been created with [employer] voice recognition software. Occasi onal wrong-word or sound-alike substitutions may have occurred due to the inherent renee itations of voice recognition software. Please read the chart carefully and recognize, using context, where these substitutions have occurred documented in this encounter Discharge Instructions Instructions Dougie Yin MD - 05/09/2017Mr. Kwon, You presented with nausea and vomiting. [...] be sent through Care Everywhere.Diabetic Ketoac idosis (Kyrgyz)documented in this encounter Medications at Time of [...] might be different fr om the original. [place] HOSPITALIST PROGRESS NOTE Patient: Joni Kwon : 1980: Age: 36 y.o. MedRec: [id number] Admission date: 05/07/2017 Hospital day # : [...] Subc utaneous 4x Daily WC and HS Dougie Yin MD 2 Units at 05/08/17 2141 insulin lispro (humaLOG KWIKPEN) 100 units/mL injection (pen) 5 Units 5 Units Subcutan eous TID WC Dougie Yin MD 5 Units at 05/08/17 [...] Procedure Component Value Units Date/Time Culture, MRSA [[id number]] Collected: 05/07/17 0411 Order Status: Completed Lab Status: Final result Updated: 05/08/17 133 Specimen: Respiratory from Nares Culture Negative for [...] (patient reports not checking glucose l evels) Patient transitioned to SC insulin yesterday. -lantus 25 units once daily, lispro 5 units today Schizophrenia hx Continues to deny hallucinations, delusions, suicidal ideations. -Will monitor FEN: Carb control PPX: HSQ Dougie Yin MD 05/09/2017 7:57 [facility] Dougie Crawford MD - 05/08/2017 7:43 AM PST [facility] [place] HOSPITALIST PROGRESS NOTE Patient: Joni Kwon : 1980: Age: 36 y.o. MedRec: [id number] Admission date: 05/07/2017 Hospital day # : [...] significant change Confirmed by CARYN THORPE, HAWA ([id number]) on 05/08/2017 7:10:41 AM Basic Metabolic Panel [...] Procedure Component Value Units Date/Time Culture, MRSA [[id number]] Collected: 05/07/171730 Order Status: Sent Lab Status: [...] PPX: HSQ Dougie Yin MD 05/08/2017 7:43 [facility] Romelia Henry Pha rmD - 05/07/2017 4:17 PM PST PHARMACY [...] and directions X Pharmacy list names: [facility] [place] [facility] [place] [facility] [place] COPIER OPERATOR (Prescription Monitoring Program) X [employer] insurance reported [...] performed and electronically signed by Morenita García, Closing Manager 05/07 16:12 Reviewed by Romelia Valdez, PharmD 05/07/2017 16:16 documented in thi s encounter H&P Notes Dougie Yin MD - 05/07/2017 4:38 PM PSTFormatting of this note might be different fr om the original. [place] HOSPITALIST HISTORY & PHYSICAL Patient: Joni Kwon : 1980: Age: 36 y.o. MedRec: [id number] Admission date: 05/07/2017 Hospital day # : 0 Physician author: Dougie Yin MD Today: 05/07/2017 CHIEF COMPLAINT: Nausea/Emesis HISTORY OF PRESENT ILLNESS: This is a 36 y.o. male with a history of DMI, Schizophrenia who presents with nausea and vo miting. The patient reports waking up in the morning and feeling nauseous. The patient lives across the street at [facility] and while walking to the hospital had an emesis episode (nonbloody, nonbilious), The patient presented to the ED and was found to be in DKA , the patient left in the AM and returned with similar complaints. The patient reports compl iance with lantus 25 units at night and lispro 5 units with meals. He does not recall checki ng his glucose levels or where they generally trend. No fevers. (+) Chills. No Cp, SOB. Radha ent has had DKA in the past. PAST MEDICAL and SURGICAL HISTORY: Past Medical [...] 3 times per week. REVIEW OF SYSTEMS: Review of Systems Constitutional: Positive for chills. Negative for diaphoresis, fever, malaise/fatigue and w eight loss. HENT: Negative. Eyes: Negative. Respiratory: Negative. Cardiovascular: Negative. Gastrointestinal: Positive for abdominal pain, nausea and vomiting. Genitourinary: Negative. Musculoskeletal: Negative. Skin: Negative. Neurological: Negative. Negative for weakness. Endo/Heme/Allergies: Negative. Psychiatric/Behavioral: Negative for hallucinations. HOME MEDICATIONS: PT REPORTED TAKING NOT TAKING Medication Sig Last Dose Dispense Doc. Provider albuterol 90 mcg/puff inhaler Inhale 2 puffs into the lungs EVERY 4 TO 6 HOURS NEEDED f or Wheezing. Taking Historical Provider, Ambulatory Compound Builder Needle tips that fit Humalog Kwikpen and Lantus Solostar Uses 5 needles a day Taking 100 Device Kevin Gifford MD Ambulatory Compound Builder Stips for Contour Next glucometer disp 100 test 4 times a day Taking 100 Device Kevin Gifford MD insulin glargine (LANTUS SOLOSTAR) 100 units/mL injection (pen) Inject 25 Units under the skin every morning. 05/07/2017 Kevin Gifford MD insulin lispro (HUMALOG KWIKPEN) 100 units/mL injection (pen) Inject 5 Units under the ski n 3 times daily (with meals). 05/06/2017 Kevin Gifford MD insulin lispro (HUMALOG KWIKPEN) [...] DAY for meals and NIGHT for bedtime 05/06/2017 Kevin Gifford MD ALLERGIES: Allergies Allergen Reactions Haloperidol Swelling Insulin Detemir Swelling Risperidone Other (See Comments) "sleeps too long" VITAL SIGNS: Temp: 35.9 C (96.7 F), Pulse: 83, Resp: 20, BP: 122/75, SpO2 97 % on room air at flow r ate L/min Temp Min: 35.8 C (96.4 F) Max: 35.9 C (96.7 F) Weight: 61.2 kg (135 lb) PHYSICAL EXAMINATION: Constitutional Awake, alert, disheveled Eye SPEEDY Neck No adenopathy, thyromegaly nor masses Lymph node exam Negative in the following areas: neck and epitrochlear Cardiac S1, S2 present, no murmurs Lung CTA on anterior exam Abdomen + BS, Soft, NT Psych Mood and affect normal DIAGNOSTIC STUDIES: Lab results last 24 hours Recent Results (from the [...] POC 558 (H) 70 - 109 mg/dL Micro results Microbiology Results (72 hrs) No results found for the last 72 hours. Radiology results No results found. I reviewed imaging EKG Results (ordered) I reviewed and summarized old records ASSESSMENT: Principal Problem: DKA Code Status Full PLAN: Nausea and vomiting in setting of Diabetic Ketoacidosis Patient presented with nausea and vomiting. Patient initially left the Ed, but upon return had a AG 28, Glucose 732, PH 7.26. Patient does not check his glucose levels regularly. Radha ent has a history of DKA. Home doses include. lantus 25 units daily and lispro 5 units with meals. -Started on NS with 20mEq KCL -Ordered BMP every 4 hours -Insulin gtt 0.1 unit/kg -Once glucose is below 200, will start D5 1/2 NS -AG closed x 2 will start liquid diet, if tolerated will start home insulin regimen Schizophrenia hx Patient was documented to have a history of schizophrenia. Patient currently does not take any medications. -Monitor for symptoms Disp: Home following resolution of DKA FEN: NPO PPX: HSQ [facility] Documentation I expect this patient will be hospitalized for greater than 2-midnights and expect the post -hospital plan to be discharge to home or to an adult foster home. Electronically signed by: Dougie Yin MD 05/07/2017 16:38 [facility] documented in this e ncounter ED Notes Vicyk Méndez MD - 05/07/2017 1:06 PM PSTFormatting of this note might be diffe rent from the original. [facility] Joni Kwon Emergency Department Encounter Note [address] [place] [id number] PCP:Shavon Covington, ENDOCRINOLOGY TEACHER [phone] CHIEF COMPLAINT: Chief Complaint Patient presents with Emesis ED Room: 452/2-[facility] Joni Kwon is a 36 y.o. male who presents to the Emergency Department with concerns th at he is in DKA. Patient reports that over the past 48 hours has had nausea, vomiting. He reports abdominal tenderness. He reports his symptoms are consistent when he has DKA. He r eports he has been using his insulin as directed. He has no additional concerns. He declin es Zofran, however wants fluids. PAST MEDICAL & SURGICAL HISTORY Past Medical History: Diagnosis Date ADHD (attention deficit hyperactivity disorder) Depression Unclear of major depression vs bipolar depression Diabetes mellitus (HCC) Type 1 diabetes Schizophrenia ([facility]) Past Surgical History: Procedure Laterality Date TONSILLECTOMY CURRENT MEDICATIONS Current Discharge Medication List CONTINUE these medications which have NOT CHANGED Details albuterol 90 mcg/puff inhaler Inhale 2 puffs into the lungs EVERY 4 TO 6 HOURS NEEDED fo r Wheezing. !! Ambulatory Compound Builder Needle tips that fit Humalog Kwikpen and Lantus Solostar Use s 5 needles a day Qty: 100 Device, Refills: 0 Comments: As above !! Ambulatory Compound Builder Stips for Contour Next glucometer disp 100 test 4 times a da y Qty: 100 Device, Refills: 0 Comments: As above insulin glargine (LANTUS SOLOSTAR) 100 units/mL injection (pen) Inject 25 Units under the s kin every morning. Refills: 0 !! insulin lispro (HUMALOG KWIKPEN) 100 units/mL injection (pen) Inject 5 Units under the s kin 3 times daily (with meals). Refills: 0 !! insulin lispro (HUMALOG KWIKPEN) 100 units/mL injection [...] DAY for meals and NIGHT for bedtime Refills: 0 !! - Potential duplicate medications found. Please discuss with provider. ALLERGIES Allergies Allergen Reactions Haloperidol Swelling Insulin [...] No narrative on file REVIEW OF SYSTEMS As in history of present illness. A full review of systems was otherwise negative. PHYSICAL EXAM VITAL SIGNS: (first vital signs):Temp: 35.9 C (96.7 F) Pulse: 88 Resp: 14 SpO2: 97 % BP : 102/49 Body mass index is 19.37 kg/m. Constitutional: male patient, no acute distress. HEENT: AT/NC, PERRLA, EOMI, MMM Neck: fROM, no meningismus noted CV: RRR, no m/r/g/ noted Pulm: CTA-b, no w/r/c, no respiratory distress Abd: soft, nontender, nondistended. No rebound/guarding, no peritonitis noted, negative Mur phy's Back: no CVA ttp Ext: wwp, no deformities noted Neuro: No focal neurologic deficits Skin: no rashes or petichiae noted Psych: normal mood and affect LABS Results for orders placed or performed during the hospital encounter of 05/07/17 CBC with Differential Result Value Ref Range WBC 5.2 4.0 [...] 0.00 - 0.10 K/uL Basic Metabolic Panel Result Value Ref Range NA 128 (L) [...] mg/dL BUN/CREA 18.9 Extra Gold Top Tube Result Value Ref Range EGDT Done Extra Blue Top Tube Result Value Ref Range Extra Blue Top Tube Done Extra Green Top Tube Result Value Ref Range Extra Green Top Tube Done POC Blood Gases Result Value Ref Range Specimen Source Vein [...] PO2, POC 48.1 25.0 - 50.0 mmHg POC Glucose Result Value Ref Range Glucose, POC >600 (HH) 70 - 109 mg/dL POC Glucose Result Value Ref Range Glucose, POC 558 (H) 70 - 109 mg/dL ECG 12 lead Result Value Ref Range INTERPRETATION TEXT Not Confirmed IMAGING STUDIES (X-Rays interpreted by ED Physician) None ED COURSE & MEDICAL DECISION MAKING Pertinent Labs & Imaging studies were reviewed along with EMS notes and snf record s if applicable. (See chart for details) Medications and Allergy list reviewed. Nurses note and old records were reviewed Patient is a 36-year-old male with medical history as type I diabetes, noncompliant with in sulin presents with nausea, abdominal pain, in DKA. He rates afebrile, stable normal vital signs and physical exam with mild tenderness palpation in his abdomen. IV is placed, labs a re obtained which demonstrate a N/A gap metabolic acidosis with a anion gap of 28, blood glu cose 732. PH 7.27, bicarb 10. He has moderate DKA. I've given him 2 L normal saline, and started him on an insulin drip at 0.1 units/kg/hr. Potassium within normal limits, not repla elias at this time. I discussed his case with Dr. Chandra of internal medicine and greatly appr eciated her willingness to admit the patient for further management and care. Patient is ad mitted in fair condition. Last Set of Vital Signs: Temp: 35.9 C (96.7 F) Pulse: 82 Resp: 12 SpO2: 98 % BP: 118/69 FINAL IMPRESSION ICD-10-CM ICD-9-CM 1. Diabetic ketoacidosis without coma associated with type 1 diabetes mellitus (HCC) E10.10 250.11 2. Nausea R11.0 787.02 3. IDDM (insulin dependent diabetes mellitus) (HCC) E11.9 250.00 Z79.4 V58.67 Follow-up Information DENIS Paul. Specialty: Family Nurse Practitioner Contact information: [address] [facility] [address] [place] [address] Current Discharge Medication List Vicky Méndez MD 05/07/17 8115 Demetria, Liat Ro RN - 05/07/2017 12:09 PM PSTPt states he has been vomiting all morning and that his b lood sugar is "really high" when asked if he is diabetic he says yes and that he takes insul in daily, but when asked what his blood sugar reading is he says he doesn't know, when asked how he takes his insulin he won't answer. He was curled up sleeping in the lobby in a jennifer r. No complaint of back pain as originally told to customer experience retail clerk. documented in this encounter Miscellaneous Notes Plan of Care - Krystal Bradley RN - 05/09/2017 10:55 AM PSTProblem: Discharge Planning Goal: Patient will be discharged in a safe manner Outcome: Improving I spoke to Joni this morning and he said that he had called his Mom and she was on her way to transport him home today. I faxed Dr. Yin's Discharge Summary to DENIS Diallo ( ) per their request. Brody Menendez CM from [facility] in [facility] and spoke to Joni this morning as well to follow up. There are no other questions or needs at this time. Electronically signed by: Krystal Bradley RN 05/09/2017 10:55 lan of Care - Natalie Allen RN - 05/09/2017 5:46 AM PSTProblem: Patient Care Overview (Adult) Goal: Care Team Goals & Evaluation PROBLEM-RELATED GOALS: Pt will be free from falls by 05/09. 3. Kamari will maintain blood sugar levels within range 80-149 during stay through 05/09/17. 4. Kamari's labs will continue to improve by 05/09/17. 5. Kamari's nausea and vomiting will improve by 05/09/17. STRATEGY TO ACHIEVE GOALS: Will assure bed alarm is on and call light is in reach. Will assist patient with out of bed activities. 3. Monitor BS as ordered, follow diet orders, educate patient on carbohydrate restricted di et 4. Monitor labs daily, encourage adequate fluids and food intake, monitor I/O's 5. Monitor nausea/vomiting s/sx. Administer anti-emetics as needed. Assess nausea triggers. Educate patient on DKA. Outcome: Improving Goal Evaluation: Kamari has been tolerating consistent carb diet, no issues with blood sugars, VSS, up ad luis, cooperative with therapies. lan of Care - Ralph Canela Chaplain - 05/08/2017 3:46 PM PSTProblem: Patient Care Overview (Adult) Goal: Care Team Goals & Evaluation PROBLEM-RELATED GOALS: Pt will be free from falls by 05/09. 3. Kamari will maintain blood sugar levels within range 80-149 during stay through 05/09/17. 4. Kamari's labs will continue to improve by 05/09/17. 5. Kamari's nausea and vomiting will improve by 05/09/17. STRATEGY TO ACHIEVE GOALS: Will assure bed alarm is on and call light is in reach. Will assist patient with out of bed activities. 3. Monitor BS as ordered, follow diet orders, educate patient on carbohydrate restricted di et 4. Monitor labs daily, encourage adequate fluids and food intake, monitor I/O's 5. Monitor nausea/vomiting s/sx. Administer anti-emetics as needed. Assess nausea triggers. Educate patient on DKA. Spiritual Care Joni Kwon is a 36 y.o. male who is admitted for nausea, elevated blood sugar l evels. Supply Chain Director visit was part of routine rounding. Spiritual Evaluation: Patient was a little groggy when I entered the room and introduced myself; he roused and wa s quite conversational. He is grateful for the care he is receiving while here, and asked me to pray for God's provision for a place to live. He is listed in the patient census as havi ng no worship preference, but his speech was indicative of some Buddhist background and v alues. Spiritual Interventions: I offered supportive listening, ministry of presence, friendly company, and words of encour agement. He requested prayer, and we prayed together. Spiritual Outcomes: Kamari expressed appreciation for the visit and the prayer. Spiritual Goals/Follow-up: Follow up with regular visit, emotional and spiritual support. lan of Care - Krystal Bradley, ERIKA - 05/08/2017 2:18 PM PSTProblem: Discharge Planning Goal: Patient will be discharged in a safe manner Outcome: Unchanged I visited with Joni this afternoon regarding discharge planning. He said that he was a ttempting to go back to [place] via the [place] the other day but was too charlee seous to go and ended up in our ER. He said that Brody Menendez, his CM from [facility] in [place], [place], was expecting to pick him up at [facility] to make arrangements for a [facility] apart ent in [place]. He said that until they had an apartment arranged for him he will stay wit h either family or friends. I obtained Joni's permission to call Brody Menendez and let hi m know that he is in the hospital and what his anticipated discharge plan is. I also obtain ed his permission to call his Mom. I called Brody ([phone]) and left a message requestin g a return call. I then called his Mom, Blossom Kwon ([phone]) and she said that she would be able to come pick him up and transfer him home after discharge [facility]. I let her know that there was a possibility that he might discharge and that CM would call her. I made a follow up appointment for Joni with his PCP, DENIS Diallo for 05/21/17 at 1100 (the soonest they can fit him in due to the holiday). I redmond d him sign a Release of Medical Information so CM can FAX a copy of the Discharge Summary to his PCP at ([phone]). Joni also said that he will need more strips for his glucom eter. He uses the [facility] located in [place], [place]. He had no other questions or needs at this time. I will follow up tomorrow. Electronically signed by: Krystal Bradley RN 05/08/2017 14:15 I received a call from Brody Menendez from [employer] and he said that he would call Blossom cerna and coordinate a meeting for himself and Joni either tomorrow or Friday. He also sa id that he would assist with helping him make his follow up appointments with his PCP. Elec tronically signed by: Krystal Bradley RN 05/08/2017 17:07 lan of [facility] - Tamika Killian RN - 05/08/2017 10:53 AM PSTProblem: Patient Care Overview (Adult) Goal: Care Team Goals & Evaluation PROBLEM-RELATED GOALS: Pt will be free from falls by 05/09. 3. Kamari will maintain blood sugar levels within range 80-149 during stay through 05/09/17. 4. Kamari's labs will continue to improve by 05/09/17. 5. Kamari's nausea and vomiting will improve by 05/09/17. STRATEGY TO ACHIEVE GOALS: Will assure bed alarm is on and call light is in reach. Will assist patient with out of bed activities. 3. Monitor BS as ordered, follow diet orders, educate patient on carbohydrate restricted di et 4. Monitor labs daily, encourage adequate fluids and food intake, monitor I/O's 5. Monitor nausea/vomiting s/sx. Administer anti-emetics as needed. Assess nausea triggers. Educate patient on DKA. Outcome: Improving Goal Evaluation: Patient A&Ox4. Off of insulin drip. Started Lantus scheduled and SSI lispro. Patient leonela ating food and fluids without nausea. VSS. Denies pain. Gait stable. UO adequate. Continues to refuse Heparin and SCD pumps, continuous education provided. lan of [facility] - Cassandra Reeves RN - 05/08/2017 6:08 AM PSTProblem: Patient Care Overview (Adult) Goal: Care Team Goals & Evaluation PROBLEM-RELATED GOALS: Pt will maintain BG <200 and will wean off insulin gtt by 05/09. Pt will be free from falls by 05/09. STRATEGY TO ACHIEVE GOALS: Will assess BG as ordered and will notify MD if BG out of target range. Will assure bed alarm is on and call light is in reach. Will assist patient with out of bed activities. Outcome: Improving Goal Evaluation: Patient started on columnar and on insulin gtt overnight. D51/2NS 200ml/hr. BG this morning 179. Bicarb 24 and anion gap 3 with this mornings labs. Patient is refusing heparin injections and SCDs overnight. VSS. lan of Care - Scottie Graham RN - 05/07/2017 6:59 PM PSTProblem: Patient Care Overview (Adult) Goal: Care Team Goals & Evaluation PROBLEM-RELATED GOALS: STRATEGY TO ACHIEVE GOALS: RESTRAINT-RELATED GOALS: STRATEGIES TO ACHIEVE RESTRAINT GOALS: Outcome: Unchanged Goal Evaluation: Pt continues on 6.1 units/hr insulin gtt. Oriented but lethargic. Last BG 350. lan of Care - Miracle Willoughby - 05/07/2017 4:34 PM PSTDischarge Planning: This HOME RESTORATION SERVICE SUPERVISOR came to the ED to speak with Kamari. Kamari is a homeless gentleman, that is originally from [place]. He is currently living in [facility]. Kamari reports he is diabetic and has a glucometer @ the [facility] (not sure this is true because he could not report his blood glucose reading to the RN during t). He reports he has [facility] and Schizophrenia. Kamari reports [employer] cut him of f when of his mental health medications but he could not tell me which. Kamari's PCP is in [facility] as well. Kamari has not decided if he will stay in or return to [place]. His mother lives in [facility]. I explained to Kamari proper ED usage (which does not apply to him today as he will be admitte d for DKA). I offered assistance with a glucometer- he refused. I offered setting him up with a PCP in [place]- he refused. CM to follow up prior to discharge regarding needs. Electronically signed by: Miracle Kan 05/07/2017 16:38 documented in this encou nter Plan of Treatment Not on filedocumented as [...] ST. | [address] | [place] | [phone] | | [facility] | | [address] | | | - LABORATORY | | | | + + + + + Magnesium (05/09/2017 4:05 AM PST) + +-------+ + + + | Component | Value | Ref Range | Performed | Pathologist | | | | | At | Signature | + +-------+ + + + | Magnesium | 1.9 | 1.8 - 2.5 mg/dL | JOSEPH [...] [address] | [place] | [phone] | | [facility] | | [address] | | | - LABORATORY | | | | + + + + + CBC with Differential (05/09/2017 4:05 AM PST) + + + + + + | Component | Value | Ref Range | Performed | Pathologist | | | | | At | Signature | + + + + + + | White Blood | 4.8 | 4.0 - 11.0 K/uL | [facility] | | | Cells | | | [facility] | | | | | | MEDICAL | | | | | | CENTER - | | | | | | LABORATORY | | + + + + + + | Red Blood | 3.83 (L) | 4.30 - 5.70 | [facility] | | | Cells | | M/uL | . [facility] | [...] | | Count | | | [facility] | | | | | | MEDICAL [...] + | [facility] | [address] | [place] | [phone] | | [facility] | | [address] | | | - LABORATORY | | [...] 13 | 7 - 18 mg/dL | [facility] [...] mL/min/1.73m2 | [facility] | | | [place] | RATE,ESTIMATED | | MEDICAL | | | | mL/min/1.52e9Vehg than | | CENTER - | | [...] [address] | [place] | [phone] | | [facility] | | [address] | | | - LABORATORY | | [...] [address] | [place] | [phone] | | [facility] | | [address] | | | - LABORATORY | | [...] [address] | [place] | [phone] | | [facility] | | [address] | | | - LABORATORY | | [...] [address] | [place] | [phone] | | [facility] | | [address] | | | - LABORATORY | | [...] 16 | 7 - 18 mg/dL | [facility] | | | | | | [facility] | | | | | | MEDICAL | | | | | | CENTER - | | | | | | LABORATORY | | + + + + + + | Creatinine | 0.82 | 0.60 - 1.30 | [facility] | | | | | mg/dL | [facility] | | | | | | MEDICAL | | | | | | CENTER - | | | | | | LABORATORY | | + + + + + + | eGFR, | >60Comment: GLOMERULAR | >=60 | [facility] | | | non- | FILTRATION | mL/min/1.73m2 | [facility] | | | [place] | RATE,ESTIMATED | | MEDICAL | | | | mL/min/1.06n6Sanr than | | CENTER - | | [...] + | [facility] | [address] | [place] | [phone] | | [facility] | | [address] | | | - LABORATORY | | [...] mL/min/1.73m2 | [facility] | | | [place] | RATE,ESTIMATED | | MEDICAL | | | | mL/min/1.18p8Kuax than | | CENTER - | | [...] ST. | [address] | [place] | [phone] | | [facility] | | [address] | | | - LABORATORY | | [...] [address] | [place] | [phone] | | [facility] | | [address] | | | - LABORATORY | | [...] + | [facility] | [address] | [place] | [phone] | | [facility] | | [address] | | | - LABORATORY | | [...] [address] | [place] | [phone] | | [facility] | | [address] | | | - LABORATORY | | [...] [address] | [place] | [phone] | | [facility] | | [address] | | | - LABORATORY | | [...] + | [facility] | [address] | [place], [place] | [phone] | | [facility] | | [address] | | | - LABORATORY | | [...] mL/min/1.73m2 | [facility] | | | [place] | RATE,ESTIMATED | | MEDICAL | | | | mL/min/1.85a0Alzj than | | CENTER - | | [...] [address] | [place] | [phone] | | [facility] | | [address] | | | - LABORATORY | | [...] [address] | [place] | [phone] | | [facility] | | [address] | | | - LABORATORY | | [...] + | [facility] | [address] | [place] | [phone] | | [facility] | | [address] | | | - LABORATORY | | [...] ST. | [address] | [place], [place] | [phone] | | [facility] | | [address] | | | - LABORATORY | | [...] | 0.97 | 0.60 - 1.30 | [facility] | [...] mL/min/1.73m2 | [facility] | | | [place] | RATE,ESTIMATED | | MEDICAL | | | | mL/min/1.47o4Maog than | | CENTER - | | [...] [address] | [place] | [phone] | | [facility] | | [address] | | | - LABORATORY | | [...] + | [facility] | [address] | [place] | [phone] | | [facility] | | [address] | | | - LABORATORY | | | | + + + + + CBC with Differential (05/08/2017 4:26 AM PST) + + + + + + | Component | Value | Ref Range | Performed | Pathologist | | | | | At | Signature | + + + + + + | White Blood | 6.7 | 4.0 - 11.0 K/uL | [facility] | | | Cells | | | [facility] | | | | | | MEDICAL | | | | | | CENTER - | | | | | | LABORATORY | | + + + + + + | Red Blood | 3.92 (L) | 4.30 - 5.70 [...] [address] | [place] | [phone] | | [facility] | | [address] | | | - LABORATORY | | [...] + | [facility] | [address] | [place] | [phone] | | [facility] | | [address] | | | - LABORATORY | | [...] [address] | [place] | [phone] | | [facility] | | [address] | | | - LABORATORY | | [...] + | [facility] | [address] | [place] | [phone] | | [facility] | | [address] | | | - LABORATORY | | [...] [address] | [place] | [phone] | | [facility] | | [address] | | | - LABORATORY | | [...] [address] | [place] | [phone] | | [facility] | | [address] | | | - LABORATORY | | [...] (H) | 7 - 18 mg/dL | [facility] | | | | | | [facility] | | | | | | MEDICAL | | | | | | CENTER - | | | | | | LABORATORY | | + + + + + + | Creatinine | 1.18 | 0.60 - 1.30 | [facility] | | | | | mg/dL | [facility] | | | | | | MEDICAL | | | | | | CENTER - | | | | | | LABORATORY | | + + + + + + | eGFR, | >60Comment: GLOMERULAR | >=60 | [facility] | | | non- | FILTRATION | mL/min/1.73m2 | [facility] | | | [place] | RATE,ESTIMATED | | MEDICAL | | | | mL/min/1.00c3Xcgx than | | CENTER - | | [...] + | [facility] | [address] | [place] | [phone] | | [facility] | | [address] | | | - LABORATORY | | [...] [address] | [place] | [phone] | | [facility] | | [address] | | | - LABORATORY | | [...] [address] | [place] | [phone] | | [facility] | | [address] | | | - LABORATORY | | [...] + | [facility] | [address] | [place] | [phone] | | [facility] | | [address] | | | - LABORATORY | | [...] + + + + | eGFR, | 50 (L)Comment: | >=60 | [facility] | | | non- | GLOMERULAR FILTRATION | mL/min/1.73m2 | [facility] | | | [place] | RATE,ESTIMATED | | MEDICAL | | | | mL/min/1.07h1Wgag than | | CENTER - | | [...] | + + + + + | [facility] | [address] | [place] | [phone] | | [facility] | | [address] | | | - LABORATORY | | [...] [address] | [place] | [phone] | | [facility] | | [address] | | | - LABORATORY | | [...] + | [facility] | [address] | [place] | [phone] | | [facility] | | [address] | | | - LABORATORY | | [...] [address] | [place] | [phone] | | [facility] | | [address] | | | - LABORATORY | | [...] 1.82 (H) | 0.60 - 1.30 | [facility] | | | | | mg/dL | [facility] | | | | | | MEDICAL | | | | | | CENTER - | | | | | | LABORATORY | | + + + + + + | eGFR, | 42 (L)Comment: | >=60 | [facility] | | | non- | GLOMERULAR FILTRATION | mL/min/1.73m2 | [facility] | | | [place] | RATE,ESTIMATED | | MEDICAL | | | | mL/min/1.95k2Ciyl than | | CENTER - | | [...] [address] | [place] | [phone] | | [facility] | | [address] | | | - LABORATORY | | [...] + | [facility] | [address] | [place] | [phone] | | [facility] | | [address] | | | - LABORATORY | | [...] | | | | HAWA RUBIN MD ([id number]) | | | | | | on [...] [address] | [place] | [phone] | | [facility] | | [address] | | | - LABORATORY | | [...] [address] | [place] | [phone] | | [facility] | | [address] | | | - LABORATORY | | [...] [address] | [place] | [phone] | | [facility] | | [address] | | | - LABORATORY | | [...] [address] | [place] | [phone] | | [facility] | | [address] | | | - LABORATORY | | [...] Carly | | LABORATORY | | | James Barron. | | | | + + + + + + | BUN | 32 (H) | 7 - 18 mg/dL | [facility] | | | | | | [facility] | | | | | | MEDICAL | | | | | | CENTER - | | | | | | LABORATORY | | + + + + + + | Creatinine | 1.69 (H) | 0.60 - 1.30 | [facility] | | | | | mg/dL | [facility] | | | | | | MEDICAL | | | | | | CENTER - | | | | | | LABORATORY | | + + + + + + | eGFR, | 46 (L)Comment: | >=60 | [facility] | | | non- | GLOMERULAR FILTRATION | mL/min/1.73m2 | [facility] | | | [place] | RATE,ESTIMATED | | MEDICAL | | | | mL/min/1.83u1Ehqj than | | CENTER - | | [...] + | [facility] | [address] | [place] | [phone] | | [facility] | | [address] | | | - LABORATORY | | [...] + + + | Red Blood | 4.65 | 4.30 - 5.70 | [...] | | Eosinophils | | | [facility] | | [...] | | Neutrophils | | K/uL | [facility] | [...] + | [facility] | [address] | [place] | [phone] | | [facility] | | [address] | | | - LABORATORY | | [...] | | Source | | | [facility] | | | | | | MEDICAL [...] [address] | [place] | [phone] | | [facility] | | [address] | | | - LABORATORY | | [...] + | [facility] | [address] | [place] | [phone] | | [facility] | | [address] | | | - LABORATORY | | | | + + + + + documented in this encounter Visit Diagnoses + + | Diagnosis | + + | Diabetic ketoacidosis without coma associated with type 1 diabetes mellitus (HCC) - | | Primary | + + | Nausea Nausea alone | + + | IDDM (insulin dependent diabetes mellitus) Type II or unspecified type diabetes | | mellitus without mention of complication, not stated as uncontrolled | + + documented in this encounter Administered Medications + +--------+ +--------+------+------+ | Medication Order | MAR | Action | Dose | Rate | Site | | | Action | Date | | | | + +--------+ +--------+------+------+ | acetaminophen (TYLENOL) tablet | Given | 05/08/20 | 650 mg | | | | [...] | | | First dose on Kailey 05/08/17 at | | | | | [...] | | | | | | Kailey 05/08/17 at 1200, CORRECTION | | | [...] | | | | | NPO, Daytime [id number] Use NIGHT | | | | | | | DOSE for doses scheduled: | | | | | | | HS, 3AM, Nighttime [id number], | | | | | | + +-------+ +---------+---+ + +-------+ +---------+---+ + | Given | 05/08/20 | 2 Units | | Arm-Left | [...] | | | MEALS, First dose on Kailey 05/08/17 | | | | | | [...] PST | | | | | ONCE, 05/07/17 at 1315, For 1 | | | [...] | | | | | CONTINUOUS, Starting Fri05/07/17 | | | | | | | at 1640 | | | | | | + +---------+ +---+-------+---+ +---+---+ | | | +---+---+ documented in this encounter
--- OUTSIDE RECORDS SUMMARY | ~2020-02-12 | XMS | Encounter Summary ---
Demographics + + + | Address | [address] | | | [place] [address] | + + + | Home Phone [...] Providers + +------+ + | Care Senior Professional Services Consultant Name | Role | Phone | + +------+ + PCP | Unavailable | + +------+ + Encounter Details +--------+ + + + + | Date | Type | Department | Care Team | Description | +--------+ + + + + | 12/18/ | Hospital | [facility] | Mohsen Carranza | | | 1999 | Encounter | [facility] [address] MD Need updated | | | | | [place] | address | | | | | [address] | | | | | | [phone] | | | +--------+ + + + [...]
--- OUTSIDE RECORDS SUMMARY | ~2020-02-12 | XMS | Encounter Summary ---
Demographics + + + | Address | [address] | | | [place] [address] | + + + | Home Phone [...] Author + + + | Author | [facility] | | | and Ryana | + + + | Organization | [facility] | | | [...] Team Providers + +------+ + | Care Gyro Compass Tester Name | Role | Phone | + +------+ + | Shavon Covington | PCP | | + +------+ + Reason for Visit + + + | Reason | Comments | + + + | High Blood Sugar | | | (Symptomatic) | | + + + Auth/Cert +--------+--------+ [...] + + + + | 10/03/ | Hospital | [facility] | Edgar Nunez, | Diabetic | | 2017 - | Encounter | MED CTR ICU [address] | MD [address] | ketoacidosis without | | | | [place], | [place], [place] | coma associated | | 10/04/ | | [place] [address] | [id number] | with type 1 diabetes | | 2017 | | [phone] | | mellitus (HCC) | | | | | Efren Burnham P, | (Primary Dx); | | | | | DO [address] | Hyperkalemia; Acute | | | | | [place] [id number] [place], | kidney injury (HCC); | | | | | [place] [address] | Acute hyperkalemia; | | | | | [phone] | Acute renal | | | | | | failure, unspecified | | | | | | acute renal failure | | | | | | type (HCC); High | | | | | | anion gap metabolic | | | | | | acidosis; Nausea and | | | | | | vomiting in adult; | | | | | | Noncompliance with | | | | | | medication regimen; | | | | | | Schizophrenia, | | | | | | unspecified type | | | | | | ([facility]); Sensation of | | | | | | chest tightness; | | | | | | Tobacco smoker | | | | | | within last 12 | | | | | | months | +--------+ + + + + Social [...] + + + | Blood Pressure | 109/76 | 10/04/2016 7:16 AM | | | | | PDT | | + + + + + | Pulse | 85 | 10/04/2016 7:16 AM | | | | | PDT | | + + + + + | Temperature | 36.5 C (97.7 F) | 10/04/2016 7:16 AM | | | | | PDT | | + + + + + | Respiratory Rate | 14 | 10/04/2016 7:16 AM | | | | | PDT | | + + + + + | Oxygen Saturation | 98% | 10/04/2016 7:16 AM | | | | | PDT | | + + + + + | Inhaled Oxygen | - | - | | | Concentration | | | | + + + + + | Weight | 55.3 kg (121 lb 14.6 | 10/04/2016 6:00 AM | | | | oz) | PDT | | + + + + + | Height | 175.3 cm (5' 9") | 10/03/2016 3:59 AM | | | | | PDT | | + + + + + | Body Mass Index | 18 | 10/03/2016 3:59 AM | | | | | PDT [...] documented as of this encounter Discharge Summaries Siddhartha Pierson MD - 10/04/2016 8:33 AM PDTFormatting of this note might be differ ent from the original. DISCHARGE SUMMARY Patient Name: Joni Kwon : 1980 Date of Admission: 10/03/2016 Date of Discharge: 10/04/2016 Admitting Physician: Efren Burnham DO Discharging Physician: Siddhartha Pierson MD Primary Care Provider: DENIS Paul Discharge Diagnoses: Principal Problem: Diabetic ketoacidosis without coma associated with type 1 diabetes mellitus Active Problems: High anion gap metabolic acidosis Acute renal failure Acute hyperkalemia Sensation of chest tightness, right Noncompliance with medication regimen Nausea and vomiting in adult Tobacco smoker Schizophrenia Resolved Problems: * No resolved hospital problems. * Patient Active Problem List Diagnosis Type 2 diabetes mellitus without complication, with long-term current use of insulin Diabetic ketoacidosis without coma associated with type 1 diabetes mellitus ADHD (attention deficit hyperactivity disorder) Marijuana use Tobacco smoker Diabetic ketoacidosis without coma associated with type 1 diabetes mellitus Acute renal failure Acute hyperkalemia Sensation of chest tightness, right High anion gap metabolic acidosis Schizophrenia Noncompliance with medication regimen Nausea and vomiting in adult Consultants: None Reason for Admission: Per Dr Burnham " This is a 35 y.o. male with a history of type I diabetes mellitus who acco rding to his mother has been noncompliant with his insulin and recent history of 2 admission s to the hospital with recurrent DKA within last month, he was admitted here at [facility] 09/26 through 09/28 and then week later was admitted at [facility] for the DKA a s well. According to patient's mother he has history of schizophrenia and recently they lo st their house and they've been staying with his sister and since then patient has not been taking care of himself as well as in the past, not taking his insulin and not let her check his blood sugar. Patient presented this morning to ER reportedly complaining of severe nausea and couple epi sode of vomiting this morning associated with right-sided chest pain with radiation to his m id back. Patient says that he had supper sent which at around 6 PM and when he checked his blood sugar it was 175 and so he took his Humalog. He then went to bed to sleep around 7 PM until this morning with above complaints. The patient presented to emergency room his bedside blood sugar was unreadable only on the meter reading greater than 600. On his chemistry panel his blood sugar was high at 981 wit h associated elevated potassium of 6.1, creatinine up to 2.41 CO2 down to 7 with anion gap o f 33 and a pH of 7.11. Patient's beta hydroxybutyrate level was also high at > 9. Patient was treated with 1 L of normal saline bolus followed by 7 units of IV regular insul in and then was started on insulin drip at 7 units per hour. For patient's chest pain he w as given dose of 50 g of IV fentanyl which resolved his pain and patient now remains pain- free. Patient also is currently getting normal saline infusion at 250 cc per hour. I was asked to admit patient to hospitalist service for further inpatient evaluation and luz woodard" Hospital course Patient was started on insulin gtt and iv fluids. Within 12 hours gap was closed. Patient w as transitioned to subcut insulin. Patient is doing well tolerating PO. He will be discharge d home. Patient was educated about the importance of taking insulin regularly. He reported u nderstanding. Code Status: Full Code Disposition: Home Discharge Condition: fair Discharge Medications Changed Medications Details insulin glargine 100 units/mL injection (vial) Inject 20 Units under the skin nightly. What changed: how much to take aka: LANTUS insulin lispro 100 units/mL injection (vial) Inject 5 Units under the skin 3 times daily (before meals). Plus sliding scale What changed: how much to take aka: humaLOG Studies With Pending Results: None Greater than 30 minutes were spent on discharge and coordination of post-hospital care. Electronically signed by: Siddhartha Pierson MD, 10/04/2016 8:33 [facility] documented in this encounter Discharge Instructions Instructions Alfred Shetty RN - 10/04/2016 Using a Blood Sugar Log You have diabetes. This means your body has troubleregulating a sugar called glucose. To help manage your diabetes, you ll need to check your blood sugar level as directed by your healthcare provider. Keeping a log of your blood sugar levels will help you track your bloo d sugar readings. It s a simple and easy way to see how well you are controlling your diab etes. Checking your blood sugar level You can check your blood sugar level with a blood glucose meter. You ll first prick the s sue of your finger with a tiny lancet to draw a tiny drop of blood onto the test strip. Some glucose meters let you use another place on your body to test. But these other places shoul d not be used in some cases as they may be inaccurate. Follow the instructions for your gluc ose meter. And talk with your healthcare provider before doing the test on other places. The strip goes into the meter first, then a drop of blood is placed on the tip of the strip . The meter then shows a reading that tells you the level of your blood sugar. Your readings should be in your target range as often as possible. This means not too high or too low. St aying in this range helps lower your risk for complications. Your healthcare provider will h elp you figure out the target range that is best for you. Tracking your readings Every time you check your blood sugar, use your log to keep track of your readings. Your me ter will also probably have a memory feature that your healthcare provider can check at your next visit. You may be advised by your healthcare provider to check your blood sugar in the morning, at bedtime, and before and after meals. Be sure to write down all of your numbers. Also use your log to record things that might have affected your blood sugar. Some examples include being sick, certain medicines, being physically active, feeling stressed, or skippi ng meals. Lessons learned from your readings Tracking your blood sugar readings helps you see patterns. These patterns tell you how your actions affect your blood sugar. For instance, you may have higher numbers after eating cer tain foods or lower numbers after exercise. They just help you understand how to stay in you r target range more often, so that your diabetes remains in good control. Sharing your log with your healthcare team Bring your blood sugar log and glucose meter with you to all of your healthcare appointment s. This can help your healthcare team make changes to your treatment plan, if needed. This m ay involve making changes in what you eat, what medicines you take, or how much you exercise . To learn more The resources below can help you learn more: [place] Diabetes Dccnyzqwszn856-157-9697bho.diabetes.org Light[facility] Pihalphrlhrmt525-474-2532vtu.lighthouse.org National Eye [phone] www.nei.nih.gov Hormone Health [phone] www.hormone.org Date Last Reviewed: 10/22/201519992523-9020 [employer]. [address] [place] [address], [place] [address]. All righ ts reserved. This information is not intended as a substitute for professional medical care. Always follow your healthcare professional's instructions. documented in this encounter Medications at Time [...] encounter Progress Notes Hannah Mijares, PharmD - 10/03/2016 7:42 PM PDTFormatting of this note might be differ ent from the original. PHARMACY SERVICES: ADMISSION MEDICATION REVIEW Joni Kwon is a 35 y.o. male admitted on 10/03/16. Patient is a reliable historian. Location of Patient when reviewed: [] ED [x] Medical Floor Patient s prior to admit [...] [] Doctor's office: [x] Pharmacy list names: [facility] [x] [facility] [employer] (Prescription Monitoring Program) [x] [employer] insurance reported information [] Care Everywhere [] Other sources: Vaccines up to date? Yes No Unsure Influenza [x] [] [] Pneumococcal [x] [] [] Tdap [x] [] [] Shingles [] [x] [] Noted medications discrepancies or medication-related issues: Dosage change: Medication: Prior to Admission Sig: Correct sig: lantus 100 units/ml 9 units under the skin twice daily 15 units under the skin nightly humalog 100 units/ml 2 units under the skin 3 times daily with sliding scale 7 units under the skin three times daily before meals with sliding scale Recreational Drug Use: Patient states he has not used any marijuana since before last hospitalization Medication review performed and electronically signed by Morenita García, Account Services Manager 7 19:25 Reviewed by: Hannah Mijares PHARMD 10/03/2016 19:41 documented in this encounter H&P Notes Efren Burnham DO - 10/03/2016 6:09 AM PDTFormatting of this note might be different f rom the original. [facility] HISTORY & PHYSICAL Patient: Joni Kwon : 1980: Age: 35 y.o. MedRec: [id number] PCP: DENIS Paul Admission date: 10/03/2016 Hospital day #: Physician author: Efren Burnham DO Today: 10/03/2016 CHIEF COMPLAINT: Pt presents to the er co hi blood sugar. Pt has a hx of DKA. Sts taking insulin normall y . Sts eating a sandwich and taking his insulin around 1700 tonight. Pt sts falling asl eep. Pt woke up nauseated and had a pain to right chest radiating to his back. Pt tachyp roz diaphoretic. HISTORY OF PRESENT ILLNESS: This is a 35 y.o. male with a history of type I diabetes mellitus who according to his moth er has been noncompliant with his insulin and recent history of 2 admissions to the hospital with recurrent DKA within last month, he was admitted here at [facility] from 09/26 through and then week later was admitted at [facility] for the DKA as well. Dreholger g to patient's mother he has history of schizophrenia and recently they lost their house and they've been staying with his sister and since then patient has not been taking care of him self as well as in the past, not taking his insulin and not let her check his blood sugar. Patient presented this morning to ER reportedly complaining of severe nausea and couple epi sode of vomiting this morning associated with right-sided chest pain with radiation to his m id back. Patient says that he had supper sent which at around 6 PM and when he checked his blood sugar it was 175 and so he took his Humalog. He then went to bed to sleep around 7 PM until this morning with above complaints. The patient presented to emergency room his bedside blood sugar was unreadable only on the meter reading greater than 600. On his chemistry panel his blood sugar was high at 981 with associated elevated potassium of 6.1, creatinine up to 2.41 CO2 down to 7 with anion gap of 33 and a pH of 7.11. Patient's beta hydroxybutyrate level was also high at > 9. Patient was treated with 1 L of normal saline bolus followed by 7 units of IV regular insul in and then was started on insulin drip at 7 units per hour. For patient's chest pain he wa s given dose of 50 g of IV fentanyl which resolved his pain and patient now remains pain-f ree. Patient also is currently getting normal saline infusion at 250 cc per hour. I was asked to admit patient to hospitalist service for further inpatient evaluation and luz johnson. PAST MEDICAL and SURGICAL HISTORY: Past Medical History Diagnosis Date Depression Unclear of major depression vs bipolar depression ADHD (attention deficit hyperactivity disorder) Diabetes mellitus (HCC) Type 1 diabetes Schizophrenia (HCC) Past Surgical History Procedure Laterality Date Tonsillectomy [...] 3 times per week. REVIEW OF SYSTEMS: ROS See HPI also positive for heart burn, no abdominal pain or nausea at this time, feels thirs ty and dehydrated, asking for ice chips. Patient was complaining of feeling diaphoretic befo re coming to ER. Complained of increased urination without any burning or discomfort. Questions asked in ROS include: Constitutional: fevers, sweats, chills, change in appetite, fatigue HEENT: nasal congestion, runny nose, sore throat, pain swallowing, neck pain, neck masses Cards: chest pain, dyspnea on exertion, palpitations, lightheadness,dizziness, leg swelling . Resp: shortness of breath, wheezing, chest congestion, cough with/with out phlegm, hemoptys is. GI: nausea, vomitting, diarrhea, constipation, abdominal pain, distention, acid reflux. : dysuria, increased frequency, urgency, difficulty to urinate. Neuro: headaches, change in vision, numbness or tingling, generalized or localized weaknes s. Remainder of other 11 points of review of systems have been reviewed and negative, except per HPI. HOME MEDICATIONS: Previous Medications INSULIN GLARGINE (LANTUS) 100 UNITS/ML INJECTION (VIAL) Inject 9 Units under the skin 2 times daily. INSULIN LISPRO (HUMALOG) 100 UNITS/ML INJECTION (CARTRIDGE) Inject 2 Units under the sk in 3 times daily (before meals). Plus sliding scale. ALLERGIES: Allergies Allergen Reactions Haloperidol Swelling Insulin Detemir Swelling Risperidone Other (See Comments) "sleeps too long" VITAL SIGNS: Temp: 34.7 C (94.4 F), Pulse: 95, Resp: 17, BP: 105/77 mmHg, SpO2 100 % on room air at flow rate L/min Temp Min: 34.7 C (94.4 F) Max: 34.7 C (94.4 F) Weight: 53.978 kg (119 lb) PHYSICAL EXAMINATION: Physical exam: General: Cachexic male who is lying in ER stretcher, A&O x 3, no apparent distress, affect pleasant HEENT: Head normocephalic and atraumatic, eyes PERRLA, EOMI. Oral mucosa dry. Neck supple, no masses or lymphadenopathy. Cardiac: RRR, no murmurs, gallops or rubs. Resp: CTAB, no wheezing or rales or crackles appreciated on auscultation. Abdominal: + bowel tones, soft, mildy tender to palpation in epigastrium, no guarding or re bound tenderness. No masses or hepatosplenomegally appreciated. Rectal deferred. : deferred. Extremities: no cyanosis, clubbing, edema or bruizing. Skin: intact, decreased skin turgor. Neuro: non focal exam is overall unremarkable. DIAGNOSTIC STUDIES: Recent Labs Lab 10/03/16 0406 09/28/16 0523 09/27/16 0316 09/26/16 2255 WBC 10.7 6.1 15.6* 13.8* HGB 13.3* 10.9* 11.6* 13.7 HCT 42.1 30.4* 34.0* 42.9 PLT 472* 255 285 414 NEUPCT 81.6 -- -- 74.4 MONPCT 5.5 -- -- 10.3 No results for input(s): PROTIME, INR in the last 168 hours. No results for input(s): PTT in the last 168 hours. Recent Labs Lab 10/03/16 0406 09/28/16 0523 09/27/16 1542 09/26/16 2255 GLU 981* 111* 400* < > 839* NA 129* 135* 131* < > 126* K 6.1* 3.1* 4.9 < > 6.2* CL 89* 102 99 < > 86* CO2 7* 26 17* < > <5* ANIONGAP 33* 7 15 < > -- BUN 29* 16 19* < > 34* CREA 2.41* 0.80 1.21 < > 2.25* GFRNONAA 31* >60 >60 < > 33* CALCIUM 9.9 8.8 8.2* < > 9.2 ALBUMIN 4.2 -- -- -- 4.2 TOTALPROTEIN 6.9 -- -- -- 6.8 BILITOT 2.5* -- -- -- 2.4* ALKPHOS 159* -- -- -- 130* ALT 81* -- -- -- 66* AST 27 -- -- -- 23 < > = values in this interval not displayed. No results for input(s): BNP in the last 168 hours. Recent Labs Lab 09/27/16 1542 09/27/16 1128 09/27/16 0927 MG 2.0 2.0 2.0 Recent Labs Lab 09/27/16 1542 09/27/16 1128 09/27/16 0927 PHOS 4.3 3.2 2.2* No results for input(s): AMYLASE, LIPASE in the last 168 hours. No results for input(s): AMMONIA in the last 168 hours. No results for input(s): CK, CKMB in the last 168 hours. Invalid input(s): TROPONINI, CKTOTAL No results for input(s): PHART, PO2ART, FTI0ELW, SDF2QDF, BEART, I9MYFLHX in the last 168 h ours. Recent Labs Lab 09/26/16 2313 HCO3 3.6 (dot meylab) Xray Results: No results found. I reviewed imaging shows no acute cardiopulmonary disease. EKG Results (I reviewed EKG) Sinus tachycardia, vent rate 127 bpm, nonspecific ST changes, no change compared to EKG from 09/26/16 ASSESSMENT: Principal Problem: Diabetic ketoacidosis without coma associated with type 1 diabetes shaylajordan [facility] Active Hospital Problems Diagnosis Diabetic ketoacidosis without coma associated with type 1 diabetes mellitus High anion gap metabolic acidosis Acute renal failure Acute hyperkalemia Sensation of chest tightness, right Noncompliance with medication regimen Nausea and vomiting in adult Schizophrenia Tobacco smoker Resolved Hospital Problems Diagnosis No resolved problems to display. PLAN: Diabetic ketoacidosis without coma associated with type 1 diabetes mellitus/high anion gap metabolic acidosis - admit to ICU on DKA insulin drip protocol with columnar scale until bicarb above 18, anio n gap closes. - check BMP, Mg, Phos & beta hydroxybutyrate q4h - c/w aggressive IVF hydration at 250 cc/hr with NS until BG less than 250 then will switch over to D51/2NS. - keep NPO except for ice chips. - Will check HgA1c level to see what his diabetes control has been over last few months. Acute renal failure - patient is clinically dehydrated, did have vomiting, most likely pre-renal. - hydrate aggressively with IVF as noted above. - Monitor strict ins and outs and daily weights Acute hyperkalemia - Should resolve with treatment of hyperglycemia with insulin. - Monitor BMP as noted above Sensation of chest tightness, right - Questionable etiology, question cardiac versus other etiologies. - Patient's initial EKG and troponin are normal and his chest tightness is now resolved. - Will check couple more cardiac enzymes as patient does have poorly controlled diabetes an d is a smoker which puts him at higher risk of developing acute coronary ischemia. - check fasting lipid panel. Noncompliance with medication regimen - Patient denies this but his mother reports patient has not been using his insulin and ref uses to check his blood sugars at home. - Suspect in part due to his underlying schizophrenia and recent stressors of losing his ho me might be contributing. According to what patient's mother told Dr. Nunez patient used to live in a mcc in [place] and was doing much better then with his diabetes control. She told Dr. Nunez that she is unable to take care of him at this point. - since this is patient's 3rd admission to the hospital for DKA, patient is high risk to re turning back to his previous living situation. - will obtain case management consult for placement in a mcc again. Nausea and vomiting in adult - resolved. Use zofran prn nausea. Schizophrenia - untreated. Tobacco smoker - Counseled smoking cessation. I reviewed and summarized old records. DVT Prophylaxis heparin Code Status Full code Medical Decision Maker Patient CMS Documentation I expect this patient will be hospitalized for greater than 2-midnights and expect the post -hospital plan to be discharge to home or to an adult foster home. Total critical care time spent with the patient (of which more than 50% was in counseling a nd/or coordination the patient's care as outlined above) was 50 minutes so far. Electronically signed by: Efren Burnham DO 10/03/2016 6:09 [facility] Dot phrase reference: VSHOSP (VS in table, last 24 hours) MEYLAB (various labs to pull in) DT (date and time) LABRCNTIP[K:3,Na:3 (last 3 sets of labs using potassium and sodium as examples) HGB HCT PLT INR GLU POCGLU Na K BUN CREA, CALCIUM TROPONINI BNP DIGOXIN Portions of this chart may have been created with NICO voice recognition software. Occasi onal wrong-word or sound-alike substitutions may have occurred due to the inherent renee itations of voice recognition software. Please read the chart carefully and recognize, using context, where these substitutions have occurred documented in this encounter ED Notes Edgar Nunez MD - 10/03/2016 4:08 AM PDTFormatting of this note might be different fro m the original. eMERGENCY dEPARTMENT eNCOUnter CHIEF COMPLAINT Chief Complaint Patient presents with High Blood Sugar (Symptomatic) HPI Joni Kwon is a 35 y.o. male who presents With signs and symptoms of diabetic k etoacidosis. Patient was admitted 2 weeks ago to [facility] for DKA and one week ago to [facility] for DKA. He is a poorly controlled diabetic who has difficul ty with medical compliance. He reports that tonight he woke up after falling asleep around 5 p.m. and was having nauseousness and pain radiating through his chest to his back. He was a lso having rapid breathing. Blood sugar was high. He lives in [facility]. His mother blake ried to drive him here and stopped in [place] to have paramedics transfer him to [facility]. He has not had any fevers. He vomited once. PAST MEDICAL HISTORY Past Medical History Diagnosis Date Diabetes mellitus (HCC) Depression Unclear of major depression vs bipolar depression ADHD (attention deficit hyperactivity disorder) SURGICAL HISTORY Past Surgical History Procedure Laterality Date Tonsillectomy CURRENT MEDICATIONS Previous Medications INSULIN GLARGINE (LANTUS) 100 UNITS/ML INJECTION (VIAL) Inject 9 Units under the skin 2 times daily. INSULIN LISPRO (HUMALOG) 100 UNITS/ML INJECTION (CARTRIDGE) Inject 2 Units under the sk in 3 times daily (before meals). Plus sliding scale. ALLERGIES Allergies Allergen Reactions Haloperidol [...] -- 0.50 packs/day Types: Cigarettes Smokeless tobacco: Not on file Alcohol Use: Yes Comment: occassionally Drug Use: 3.00 per week Special: Marijuana Sexual Activity: Not on file Other Topics Concern Not on file Social History Narrative REVIEW OF SYSTEMS A 12 system review of systems is otherwise negative except as noted in the HPI above. PHYSICAL EXAM VITAL SIGNS: (first vital signs):Temp: 34.7 C (94.4 F) Pulse: 133 Resp: 29 SpO2: 98 % B P: (!) 169/134 mmHg Constitutional: Patient is cachectic appearing and in some respiratory distress, strong sm ell of ketones HENT: Normocephalic, Atraumatic, Bilateral external ears normal, [...] four extremities, No focal deficits noted. Psychiatric: Anxious and agitated Labs Reviewed CBC WITH DIFFERENTIAL - Abnormal; Notable for the following: RBC 4.01 (*) Hgb 13.3 (*) MCV 104.8 (*) MCHC 31.6 (*) Platelet Count 472 (*) % Lymphocytes 12.4 (*) Absolute Neutrophils 8.70 (*) All other components within normal limits COMPREHENSIVE METABOLIC PANEL - Abnormal; Notable for the following: NA 129 (*) K 6.1 (*) CL 89 (*) CO2 7 (*) ANION GAP 33 (*) GLUCOSE 981 (*) BUN 29 (*) Creatinine, Serum/Plasma 2.41 (*) eGFR if not 31 (*) BILIRUBIN TOTAL 2.5 (*) ALT 81 (*) ALK PHOS 159 (*) All other components within normal limits TROPONIN I - Normal EXTRA BLUE TOP TUBE EXTRA GOLD TOP TUBE BLOOD GAS, VENOUS BETA HYDROXYBUTYRATE, QUANT DRUGS OF ABUSE, SCREEN, URINE POC BLOOD GASES RADIOLOGY CT Results: No results found. EKG Interpretation Interpreted by me Rhythm: Sinus tachycardia Rate: 127 [place]: normal Ectopy: none Conduction: normal ST Segments: no acute change T Waves: no acute change Q Waves: none Clinical Impression: Sinus tachycardia Chest X-Ray Interpreted by: Attending Provider View: AP chest xray Findings: Normal heart size, Normal lungs, Normal mediastinum, No pneumothorax ED COURSE & MEDICAL DECISION MAKING Pertinent Labs & Imaging studies reviewed. (See chart for details) Patient presents via EMS with signs and symptoms of diabetic ketoacidosis. Blood sugar was found to be 981 with a pH of 7.11 and a potassium of 6.1. His creatinine was 2.41 and his CO 2 was 7. IV was established and patient was given normal saline, regular insulin infusion. H e will be admitted for further inpatient management. Last Set of Vital Signs: Temp: 34.7 C (94.4 F) Pulse: 128 Resp: 25 SpO2: 100 % BP: 135/ 89 mmHg FINAL IMPRESSION 1. Diabetic ketoacidosis without coma associated with type 1 diabetes mellitus (HCC) 2. Hyperkalemia 3. Acute kidney injury (HCC) PLAN inpatient admission Edgar Nunez MD 10/03/16 2241 document ed in this encounter Miscellaneous Notes eICU Note - Alfred Shetty RN - 10/04/2016 9:28 AM PDTPt given d/c instructions, f/u re viewed with pt, instructions given for medication adjustments and amounts. Pt verbalized und erstanding, RN has concerns with compliance. Pt contacted mother who will pickling operator pt after d ischarge. VSS, no distress, all questions answered, ambulatory off unit, pt had no further q uestions lan of Codi Vitale RN - 10/04/2016 9:23 AM PDTBriefly revisited with Joni regarding his discharge and living situation. He states he lives with his sister and his mom in [place], he has discharge orders and redmond s already contacted his mother to come pick him up. He denies any discharge needs and declines HH services. He wonders about discharge instructions and Hawa, his RN, is present and ready to give him t hose instructions. Joni's mom is already on her her way to pick him up. Electronically signed by: Codi Macias RN 10/04/2016 9:26 lan of Jia Buckner RN - 10/04/2016 9:01 AM PDTProblem: Patient Care Overview (Adult) Goal: Care Team Goals & Evaluation PROBLEM-RELATED GOALS: 1. Pt will have education on DMI and controlled diet by 10/05/16. 2. Pt will have access to diabetic meds and psych med by 10/05/16. STRATEGY TO ACHIEVE GOALS: + Pt will have adequate blood sugars and coverage AC&HS. + Pt will have case management or captaincy consults daily. RESTRAINT-RELATED GOALS: STRATEGIES TO ACHIEVE RESTRAINT GOALS: Outcome: Adequate for Discharge Date Met: 10/04/16 Goal Evaluation: 1. PT educated on DMI and controlled diet and blood sugar management on 10/04/2016 2. Pt has access to diabetic medications and psych medications on 10/04/2016 lan of Pilar Abdul RN - 10/04/2016 8:06 AM PDTProblem: Patient Care Overview (Adult) Goal: Care Team Goals & Evaluation PROBLEM-RELATED GOALS: 1. Pt will have education on DMI and controlled diet by 10/05/16. 2. Pt will have access to diabetic meds and psych med by 10/05/16. STRATEGY TO ACHIEVE GOALS: + Pt will have adequate blood sugars and coverage AC&HS. + Pt will have case management or captaincy consults daily. RESTRAINT-RELATED GOALS: STRATEGIES TO ACHIEVE RESTRAINT GOALS: Outcome: Improving Goal Evaluation: SD- DM I, DKA insulin gtt stopped during the day. HX schizophrenia, DM I, depression, ADHD. Homeless. Received 4 units Humalog at HS and 20 units Lantus at HS. He wanted ton of food a nd drinks he was given sandwich, diet sodas, diet pudding, decaf coffee with splenda, tea. T his am called out felt his bs 'was too low'. BS 57 went to get amp of D50. Pt refused and sa id he wanted food and drink. He had sandwich, juice, custard, soda, ice water. BS recheck 19 9. Pt back to sleep said 'feels better with food in my stomach'. lan of Codi Vitale RN - 10/03/2016 5:11 PM PDTProblem: Discharge Planning Goal: Patient will be discharged in a safe manner Outcome: Unchanged Met with Joni to discuss his discharge plan. He reports he lives with family in [place]. He also reports he is independent with all of his ADL's, he does not use any DME, oxygen or CPAP. His PCP is Shavon Covington and he uses [facility]. He is unsure of what discharge needs he might have. During our conversation, he was very s oft spoken and kept his eyes closed. Admitting provider placed CM consult for placement into a mcc, will revisit with Kamari gardiner at another time for any placement needs. CM to continue to follow. Electronically signed by: Codi Macias RN 10/03/2016 17:10 D Triage Notes - Zaria Monroe RN - 10/03/2016 4:00 AM PDTPt presents to the er co hi blood sugar. Pt has a hx of DKA. Sts taking insulin normally . Sts eating a sandwich and taking his insulin a round 1700 tonight. Pt sts falling asleep. Pt woke up nauseated and had a pain to right ch est radiating to his back. Pt tachypnea diaphoretic. ls clear. documented in this encounter Plan of Treatment + +------+--------+ + + | Name | Type | Priori | Associated Diagnoses | Date/Time | | | | ty | | | + +------+--------+ + + | ED INFORMATION | KELLY | Routin | | 10/03/2016 4:00 AM | | EXCHANGE | | e | | PDT | + +------+--------+ + + documented as of this encounter Procedures + +--------+ + + + | Procedure Name | Priori | Date/Time | Associated Diagnosis | Comments | | | ty | | | | + +--------+ + + + | POC GLUCOSE | Routin | 10/04/2016 | | Results for this | | | e | 6:02 AM | | procedure are in the | | | | PDT | | results section. | + +--------+ + + + | POC GLUCOSE | Routin | 10/04/2016 | | Results for this | | | e | 5:09 AM | | procedure are in the | | | | PDT | | results section. | + +--------+ + + + | CBC NO DIFFERENTIAL | Routin | 10/04/2016 | | Results for this | | | e | 4:05 AM | | procedure are in the | | | | PDT | | results section. | + +--------+ + + + | COMPREHENSIVE | Routin | 10/04/2016 | | Results for this | | METABOLIC PANEL | e | 4:05 AM | | procedure are in the | | | | PDT | | results section. | + +--------+ + + + | POC GLUCOSE | Routin | 10/03/2016 | | Results for this | | | e | 8:23 PM | | procedure are in the | | | | PDT | | results section. | + +--------+ + + + | DRUGS OF ABUSE, | STAT | 10/03/2016 | | Results for this | | SCREEN, URINE | | 7:37 PM | | procedure are in the | | | | PDT | | results section. | + +--------+ + + + | POC GLUCOSE | Routin | 10/03/2016 | | Results for this | | | e | 4:47 PM | | procedure are in the | | | | PDT | | results section. | + +--------+ + + + | BETA | Routin | 10/03/2016 | | Results for this | | HYDROXYBUTYRATE, | e | 4:36 PM | | procedure are in the | | QUANT | | PDT | | results section. | + +--------+ + + + | TROPONIN I | Routin | 10/03/2016 | | Results for this | | | e | 4:36 PM | | procedure are in the | | | | PDT | | results section. | + +--------+ + + + | PHOSPHORUS | Routin | 10/03/2016 | | Results for this | | | e | 4:36 PM | | procedure are in the | | | | PDT | | results section. | + +--------+ + + + | MAGNESIUM | Routin | 10/03/2016 | | Results for this | | | e | 4:36 PM | | procedure are in the | | | | PDT | | results section. | + +--------+ + + + | BASIC METABOLIC | Routin | 10/03/2016 | | Results for this | | PANEL | e | 4:36 PM | | procedure are in the | | | | PDT | | results section. | + +--------+ + + + | POC GLUCOSE | Routin | 10/03/2016 | | Results for this | | | e | 2:45 PM | | procedure are in the | | | | PDT | | results section. | + +--------+ + + + | POC GLUCOSE | Routin | 10/03/2016 | | Results for this | | | e | 2:22 PM | | procedure are in the | | | | PDT | | results section. | + +--------+ + + + | BETA | Routin | 10/03/2016 | | Results for this | | HYDROXYBUTYRATE, | e | 1:10 PM | | procedure are in the | | QUANT | | PDT | | results section. | + +--------+ + + + | PHOSPHORUS | Routin | 10/03/2016 | | Results for this | | | e | 1:10 PM | | procedure are in the | | | | PDT | | results section. | + +--------+ + + + | MAGNESIUM | Routin | 10/03/2016 | | Results for this | | | e | 1:10 PM | | procedure are in the | | | | PDT | | results section. | + +--------+ + + + | BASIC METABOLIC | Routin | 10/03/2016 | | Results for this | | PANEL | e | 1:10 PM | | procedure are in the | | | | PDT | | results section. | + +--------+ + + + | POC GLUCOSE | Routin | 10/03/2016 | | Results for this | | | e | 1:00 PM | | procedure are in the [...] + +--------+ + + + | EXTRA SAMEERA TOP | Routin | 10/03/2016 | | Results for this | | TUBE | e | 10:12 AM | | procedure are in the | | | | PDT | | results section. | + +--------+ + + + | BETA | Routin | 10/03/2016 | | Results for this | | HYDROXYBUTYRATE, | e | 10:07 AM | | procedure are in the | | QUANT | | PDT | | results section. | + +--------+ + + + | TROPONIN I | Routin | 10/03/2016 | | Results for this | | | e | 10:07 AM | | procedure are in the | | | | PDT | | results section. | + +--------+ + + + | BASIC METABOLIC | Routin | 10/03/2016 | | Results for this | | PANEL | e | 10:07 AM | | procedure are in the | | | | PDT | | results section. | + +--------+ + + + | CULTURE, MRSA | Routin | 10/03/2016 | | Results for this | | | e | 9:14 AM | | procedure are in the | | | | PDT | | results section. | + +--------+ + + + | HEMOGLOBIN A1C | Add-On | 10/03/2016 | | Results for this | | | | 9:01 AM | | procedure are in the | | | | PDT | | results section. | + +--------+ + + + | POC GLUCOSE | Routin | 10/03/2016 | | Results for this | | | e | 8:55 AM | | procedure are in the | | | | PDT | | results section. | + +--------+ + + + | POC GLUCOSE | Routin | 10/03/2016 | | Results for this | | | e | 5:27 AM | | procedure are in the | | | | PDT | | results section. | + +--------+ + + + | XR CHEST AP PORTABLE | STAT | 10/03/2016 | | Results for this | | | | 4:25 AM | | procedure are in the | | | | PDT | | results section. | + +--------+ + + + | ECG 12 LEAD | STAT | 10/03/2016 | | Results for this | | | | 4:11 AM | | procedure are in the | | | | PDT | | results section. | + +--------+ + + + | POC BLOOD GASES | Routin | 10/03/2016 | | Results for this | | | e | 4:10 AM | | procedure are in the | | | | PDT | | results section. | + +--------+ + + + | BETA | STAT | 10/03/2016 | | Results for this | | HYDROXYBUTYRATE, | | 4:06 AM | | procedure are in the | | QUANT | | PDT | | results section. | + +--------+ + + + | LIPID PANEL | Add-On | 10/03/2016 | | Results for this | | | | 4:06 AM | | procedure are in the | | | | PDT | | results section. | + +--------+ + + + | EXTRA GOLD TOP TUBE | Routin | 10/03/2016 | | Results for this | | | e | 4:06 AM | | procedure are in the | | | | PDT | | results section. | + +--------+ + + + | EXTRA BLUE TOP TUBE | Routin | 10/03/2016 | | Results for this | | | e | 4:06 AM | | procedure are in the | | | | PDT | | results section. | + +--------+ + + + | TROPONIN I | Add-On | 10/03/2016 | | Results for this | | | | 4:06 AM | | procedure are in the | | | | PDT | | results section. | + +--------+ + + + | CBC WITH | STAT | 10/03/2016 | | Results for this | | DIFFERENTIAL | | 4:06 AM | | procedure are in the | | | | PDT | | results section. | + +--------+ + + + | PHOSPHORUS | Routin | 10/03/2016 | | Results for this | | | e | 4:06 AM | | procedure are in the | | | | PDT | | results section. | + +--------+ + + + | MAGNESIUM | Routin | 10/03/2016 | | Results for this | | | e | 4:06 AM | | procedure are in the | | | | PDT | | results section. | + +--------+ + + + | COMPREHENSIVE | STAT | 10/03/2016 | | Results for this | | METABOLIC PANEL | | 4:06 AM | | procedure are in the | | | | PDT | | results section. | + +--------+ + + + | ED INFORMATION | Routin | 10/03/2016 | | | | EXCHANGE | e | 4:00 AM | | | | | | PDT | | | + +--------+ + + + documented in this encounter Results POC Glucose (10/04/2016 6:02 AM PDT) + +---------+ + + + | Component | Value | Ref Range | Performed | Pathologist | | | | | At | Signature | + +---------+ + + + | Glucose, | 199 (H) | 70 - 150 mg/dL | [...] [address] | [place] | [phone] | | [facility] | | [address] | | | - LABORATORY | | | | + + + + + POC Glucose (10/04/2016 5:09 AM PDT) + +--------+ + + + | Component | Value | Ref Range | Performed | Pathologist | | | | | At | Signature | + +--------+ + + + | Glucose, | 57 (L) | 70 - 150 mg/dL | [facility] | | POC | | | [facility] | | | | | | [facility] | | | | | | C[facility] - | | | | | | LABORATORY | | + +--------+ + + + + + | Specimen | + + | Blood | + + + + + + + | Performing | Address | City/State/Zipcode | Phone Number | | Organization | | | | + + + + + | [facility] | [address] | [place], [place] | [phone] | | [facility] | | [address] | | | - LABORATORY | | | | + + + + + Comprehensive Metabolic Panel (10/04/2016 4:05 AM PDT) + + + + + [...] + + + + | Glucose | 55 (L) | 70 - 109 mg/dL | [facility] | | | | | [facility] | | | | | | [facility] | | | | | | C[facility] - | | | | | | LABORATORY | | + + + + + + | BUN | 13 | 7 - 18 mg/dL | [facility] | | | | | | [facility] | | [...] mL/min/1.73m2 | [facility] | | | [place] | RATE,ESTIMATED | | MEDICAL | | | | mL/min/1.49b9Ceta than | | CENTER - | | [...] (L) | 3.2 - 5.0 g/dL | [facility] | | | | | | [facility] | | | | | | MEDICAL | | | | | | CENTER - | | | | | | LABORATORY | | + + + + + + | Bilirubin | 0.5 | 0.1 - 1.5 mg/dL | [facility] | | | Total | | | [facility] | | | | | | [facility]ICAL | | | | | | CENTER - | | | | | | LABORATORY | | + + + + + + | Total | 5.1 (L) | 6.0 - 7.8 g/dL | [facility] | | | Protein | | | [facility] | | | | | | MEDICAL | | | | | | CENTER - | | | | | | LABORATORY | | + + + + + + | AST | 702 (H) | 10 - 42 U/L | [facility] | | | | | [facility] | | | [facility] | | [facility]ICAL | | | | | | CENTER - | | | | | | LABORATORY | | + + + + + + | ALT | 255 (H) | 6 - 45 U/L | [facility] | | | | | [facility] | | | | | | [facility] | | | | | | CENTER - | | | | | | LABORATORY | | + + + + + + | Alkaline | 161 (H) | 40 - 110 U/L | [facility] | | | Phosphatase | | | [facility] | | | | | | MEDICAL | | | | | | CENTER - | | | | | | LABORATORY | | + + + + + + | Globulin | 2.1 | 2.1 - 3.8 g/dL | [facility] | | | | | | [facility] | | | | | | MEDICAL | | | | | | CENTER - | | | | | | LABORATORY | | + + + + + + | Albumin/Eliz | 1.4 | 0.8 - 2.0 | [facility] | [...] [address] | [place] | [phone] | | [facility] | | [address] | | | - LABORATORY | | | | + + + + + CBC no Differential (10/04/2016 4:05 AM PDT) + + + + + + | Component | Value | Ref Range | Performed | Pathologist | | | | | At | Signature | + + + + + + | White Blood | 8.0 | 4.0 - 11.0 K/uL | [facility] | | | Cells | | | [facility] | | | | | | [facility] | | | | | | CENTER - | | | | | | LABORATORY | | + + + + + + | Red Blood | 3.30 (L) | 4.30 - 5.70 | [facility] | | | Cells | | M/uL | [facility] | | | | | | [facility]ICAL | | | | | | CENTER - | | | | | | LABORATORY | | + + + + + + | Hemoglobin | 11.0 (L) | 13.5 - 18.0 | [facility] | | | | | g/dL | [facility] | | | | | | MEDICAL | | | | | | CENTER - | | | | | | LABORATORY | | + + + + + + | Hematocrit | 31.2 (L) | 40.0 - 51.0 % | [facility] | | | | | | [facility] | | | | | | MEDICAL | | | | | | CENTER - | | | | | | LABORATORY | | + + + + + + | MCV | 94.3 | 83.0 - 101.0 fL | [facility] | | | | | | [facility] | | | | | | MEDICAL | | | | | | CENTER - | | | | | | LABORATORY | | + + + + + + | MCH | 33.3 | 28.0 - 35.0 pg | [facility] | | | | | | [facility] | | | | | | MEDICAL | | | | | | CENTER - | | | | | | LABORATORY | | + + + + + + | MCHC | 35.3 | 32.0 - 36.0 | [facility] | | | | | g/dL | [facility] | | | | | | MEDICAL | | | | | | CENTER - | | | | | | LABORATORY | | + + + + + + | RDW-CV | 13.9 | <15.0 % | [facility] | | | | | | [facility] | | | | | | MEDICAL | | | | | | CENTER - | | | | | | LABORATORY | | + + + + + + | Platelet | 252 | 140 - 440 K/uL | [facility] | | | Count | | | [facility] | | | | | | MEDICAL | | | | | | CENTER - | | | | | | LABORATORY | | + + + + + + | MPV | 6.6 | fL | [facility] | | | [...] + | [facility] | [address] | [place], [place] | [phone] | | [facility] | | [address] | | | - LABORATORY | | | | + + + + + POC Glucose (10/03/2016 8:23 PM PDT) + +---------+ + + + [...] [address] | [place] | [phone] | | [facility] | | [address] | | | - LABORATORY | | | | + + + + + Drugs of Abuse, Screen, Urine (10/03/2016 7:37 PM PDT) + + + + + [...] + + + + | Cannabinoid | Negative | Negative | [facility] | [...] ST. | [address] | [place], [place] | [phone] | | [facility] | | [address] | | | - LABORATORY | | | | + + + + + POC Glucose (10/03/2016 4:47 PM PDT) + +---------+ + + + [...] [address] | [place] | [phone] | | [facility] | | [address] | | | - LABORATORY | | | | + + + + + Phosphorus (10/03/2016 4:36 PM PDT) + +-------+ + + + | Component | Value | Ref Range | Performed | Pathologist | | | | | At | Signature | + +-------+ + + + | Phosphorus | 3.3 | 2.5 - 4.6 mg/dL | [facility] [...] + | [facility] | [address] | [place] | [phone] | | [facility] | | [address] | | | - LABORATORY | | | | + + + + + Beta Hydroxybutyrate, Quant (10/03/2016 4:36 PM PDT) + +-------+ + + + | Component | Value | Ref Range | Performed | Pathologist | | | | | At | Signature | + +-------+ + + + | Beta | 0.24 | 0.02 - 0.27 | [facility] | | | Hydroxybuty | | mmol/L | [facility] | | | rate | | [...] [address] | [place] | [phone] | | [facility] | | [address] | | | - LABORATORY | | | | + + + + + Magnesium (10/03/2016 4:36 PM PDT) + +-------+ + + + [...] [address] | [place] | [phone] | | [facility] | | [address] | | | - LABORATORY | | | | + + + + + Basic Metabolic Panel (10/03/2016 4:36 PM PDT) + + + + + [...] + + | Cl | 105 | 98 - 109 mmol/L | [facility] | | | | | | [facility] | | | | | | MEDICAL | | | | | | CENTER - | | | | | | LABORATORY | | + + + + + + | CO2 | 22 (L) | 24 - 31 mmol/L | [...] + + + + | Glucose | 161 (H) | 70 - 109 mg/dL | [facility] | | | | | | [facility] | | | | | | MEDICAL | | | | | | CENTER - | | | | | | LABORATORY | | + + + + + + | BUN | 16 | 7 - 18 mg/dL | [facility] | | | | | | [facility] | | | | | | MEDICAL | | | | | | CENTER - | | | | | | LABORATORY | | + + + + + + | Creatinine | 1.00 | 0.60 - 1.30 | [facility] | | | | | mg/dL | [facility] | | | | | | MEDICAL | | | | | | CENTER - | | | | | | LABORATORY | | + + + + + + | eGFR, | >60Comment: GLOMERULAR | >=60 | [facility] | | | non- | FILTRATION | mL/min/1.73m2 | [facility] | | | [place] | RATE,ESTIMATED | | MEDICAL | | | | mL/min/1.24m8Eqau than | | CENTER - | | [...] + + + + | BUN/Creatin | 16.0 | | [facility] | | | ine [...] + | [facility] | [address] | [place] | [phone] | | [facility] | | [address] | | | - LABORATORY | | | | + + + + + Troponin I (10/03/2016 4:36 PM PDT) + + + + + [...] | | | | | | [employer] | | | | | [...] + | [facility] | [address] | [place] | [phone] | | [facility] | | [address] | | | - LABORATORY | | | | + + + + + POC Glucose (10/03/2016 2:45 PM PDT) + +-------+ + + + | Component | Value | Ref Range | Performed | Pathologist | | | | | At | Signature | + +-------+ + + + | Glucose, | 96 | 70 - 150 mg/dL | [facility] [...] [address] | [place] | [phone] | | [facility] | | [address] | | | - LABORATORY | | | | + + + + + POC Glucose (10/03/2016 2:22 PM PDT) + +-------+ + + + | Component | Value | Ref Range | Performed | Pathologist | | | | | At | Signature | + +-------+ + + + | Glucose, | 72 | 70 - 150 mg/dL | [facility] [...] [address] | [place] | [phone] | | [facility] | | [address] | | | - LABORATORY | | | | + + + + + Phosphorus (10/03/2016 1:10 PM PDT) + +-------+ + + + | Component | Value | Ref Range | Performed | Pathologist | | | | | At | Signature | + +-------+ + + + | Phosphorus | 2.9 | 2.5 - 4.6 mg/dL | [facility] [...] + | [facility] | [address] | [place] | [phone] | | [facility] | | [address] | | | - LABORATORY | | | | + + + + + Beta Hydroxybutyrate, Quant (10/03/2016 1:10 PM PDT) + + + + + + | Component | Value | Ref Range | Performed | Pathologist | | | | | At | Signature | + + + + + + | Beta | 0.34 (H) | 0.02 - 0.27 | [facility] [...] [facility] | [address] | [place], [place] | [phone] | | [facility] | | [address] | | | - LABORATORY | | | | + + + + + Magnesium (10/03/2016 1:10 PM PDT) + +-------+ + + + [...] [address] | [place] | [phone] | | [facility] | | [address] | | | - LABORATORY | | | | + + + + + Basic Metabolic Panel (10/03/2016 1:10 PM PDT) + + + + + [...] + + + | CO2 | 22 (L) | 24 - 31 mmol/L | [...] + + + + | Glucose | 69 (L) | 70 - 109 mg/dL | [facility] | | | | | | [facility] | | | | | | MEDICAL | | | | | | CENTER - | | | | | | LABORATORY | | + + + + + + | BUN | 16 | 7 - 18 mg/dL | [facility] | | | | | | [facility] | | | | | | MEDICAL | | | | | | CENTER - | | | | | | LABORATORY | | + + + + + + | Creatinine | 0.93 | 0.60 - 1.30 | [facility] | | | | | mg/dL | [facility] | | | | | | [facility]ICAL | | | | | | CENTER - | | | | | | LABORATORY | | + + + + + + | eGFR, | >60Comment: GLOMERULAR | >=60 | [facility] | | | non- | FILTRATION | mL/min/1.73m2 | [facility] | | | [place] | RATE,ESTIMATED | | MEDICAL | | | | mL/min/1.70i9Sfrw than | | CENTER - | | [...] + + + + | BUN/Creatin | 17.2 | | [facility] | | | ine [...] [address] | [place] | [phone] | | [facility] | | [address] | | | - LABORATORY | | | | + + + + + POC Glucose (10/03/2016 1:00 PM PDT) + +-------+ + + + | Component | Value | Ref Range | Performed | Pathologist | | | | | At | Signature | + +-------+ + + + | Glucose, | 81 | 70 - 150 mg/dL | [facility] [...] + | [facility] | [address] | [place], [place] | [phone] | | [facility] | | [address] | | | - LABORATORY | | | | + + + + + POC Glucose (10/03/2016 12:34 PM PDT) + +-------+ + + + | Component | Value | Ref Range | Performed | Pathologist | | | | | At | Signature | + +-------+ + + + | Glucose, | 75 | 70 - 150 mg/dL | [place] [...] [address] | [place] | [phone] | | [facility] | | [address] | | | - LABORATORY | | | | + + + + + POC Glucose (10/03/2016 11:29 AM PDT) + +-------+ + + + | Component | Value | Ref Range | Performed | Pathologist | | | | | At | Signature | + +-------+ + + + | Glucose, | 86 | 70 - 150 mg/dL | [facility] [address] | [place] | [phone] | | [facility] | | [address] | | | - LABORATORY | | | | + + + + + Extra Lavender Top Tube (10/03/2016 10:12 AM PDT) + +-------+ + + + [...] [address] | [place] | [phone] | | [facility] | | [address] | | | - LABORATORY | | | | + + + + + Beta Hydroxybutyrate, Quant (10/03/2016 10:07 AM PDT) + + + + + + | Component | Value | Ref Range | Performed | Pathologist | | | | | At | Signature | + + + + + + | Beta | 1.58 (H) | 0.02 - 0.27 | [facility] [...] [facility]. [address] | [place] | [phone] | | [facility] | | [address] | | | - LABORATORY | | | | + + + + + Basic Metabolic Panel (10/03/2016 10:07 AM PDT) + + + + + [...] + + + + | CO2 | 19 (L) | 24 - 31 mmol/L | [...] + + + + | Glucose | 198 (H) | 70 - 109 mg/dL | [facility] | | | | | | [facility] | | | | | | MEDICAL | | | | | | CENTER - | | | | | | LABORATORY | | + + + + + + | BUN | 21 (H) | 7 - 18 mg/dL | [facility] | | | | | | [facility] | | | | | | MEDICAL | | | | | | CENTER - | | | | | | LABORATORY | | + + + + + + | Creatinine | 1.39 (H) | 0.60 - 1.30 | [facility] | | | | | mg/dL | [facility] | | | | | | MEDICAL | | | | | | CENTER - | | | | | | LABORATORY | | + + + + + + | eGFR, | 58 (L)Comment: | >=60 | [facility] | | | non- | GLOMERULAR FILTRATION | mL/min/1.73m2 | [facility] | | | [place] | RATE,ESTIMATED | | MEDICAL | | | | mL/min/1.62i8Vqng than | | CENTER - | | [...] + + + + | Calcium | 9.3 | 8.3 - 10.5 | [facility] | [...] + | [facility] | [address] | [place] | [phone] | | [facility] | | [address] | | | - LABORATORY | | | | + + + + + Troponin I (10/03/2016 10:07 AM PDT) + + + + + [...] | | | | | | [employer] | | | | | [...] + | [facility] | [address] | [place] | [phone] | | [facility] | | [address] | | | - LABORATORY | | | | + + + + + Culture, MRSA (10/03/2016 9:14 AM PDT) + + + + [...] [address] | [place] | [phone] | | [facility] | | [address] | | | - LABORATORY | | | | + + + + + Hemoglobin A1C (10/03/2016 9:01 AM PDT) + + + + + + | Component | Value | Ref Range | Performed | Pathologist | | | | | At | Signature | + + + + + + | Hemoglobin | >14.5 (H) | 4.3 - 6.0 % | [facility] | | | A1c | | | [facility] | | | | | | MEDICAL | | | | | | CENTER - | | | | | | LABORATORY | | + + + + + + | Estimated | | mg/dL | [facility] | | | Average | | | [facility] | | | Glucose | | | MEDICAL | | | [...] + | [facility] | [address] | [place] | [phone] | | [facility] | | [address] | | | - LABORATORY | | | | + + + + + POC Glucose (10/03/2016 8:55 AM PDT) + +---------+ + + + | Component | Value | Ref Range | Performed | Pathologist | | | | | At | Signature | + +---------+ + + + | Glucose, | 323 (H) | 70 - 150 mg/dL | [...] [address] | [place] | [phone] | | [facility] | | [address] | | | - LABORATORY | | | | + + + + + POC Glucose (10/03/2016 5:27 AM PDT) + + + + + + | Component | Value | Ref Range | Performed | Pathologist | | | | | At | Signature | + + + + + + | Glucose, | >600 (HH) | 70 - 150 mg/dL | [facility] [...] [address] | [place] | [phone] | | [facility] | | [address] | | | - LABORATORY | | | | + + + + + XR Chest AP Portable (10/03/2016 4:25 AM PDT) + + | Specimen | + + | | + + + + + | Narrative | Performed At | + + + | XR CHEST AP PORTABLE 10/03/2016 4:25 AM HISTORY: HIGH BLOOD SUGAR | [facility] | | (SYMPTOMATIC). COMPARISON: 09/27/2016. Findings: Heart size is | | | within normal limits. Aorta is normal. Mediastinum is unremarkable. | | | Central pulmonary vasculature is normal. The bilateral lungs are | | | clear with no evidence for pleural effusion or pneumothorax. There are | | | no acute osseous abnormalities. IMPRESSION - No acute findings. | | | Dictated and Signed by: Sami Chapman MD Electronically | | | signed: 10/03/2016 8:59 AM | | + + + + + | Procedure Note | + + | Siddhartha, Rad Results In - 10/03/2016 9:03 AM PDT XR CHEST AP PORTABLE 10/03/2016 4:25 AM | | | | HISTORY: HIGH BLOOD SUGAR (SYMPTOMATIC). | | | | COMPARISON: 09/27/2016. | | | | Findings: | | Heart size is within normal limits. Aorta is normal. Mediastinum is | | unremarkable. Central pulmonary vasculature is normal. The bilateral lungs are | | clear with no evidence for pleural effusion or pneumothorax. There are no acute | | osseous abnormalities. | | | | IMPRESSION - | | No acute findings. | | | | Dictated and Signed by: Sami Chapman MD | | Electronically signed: 10/03/2016 8:59 AM | + + + +---------+ + + | Performing | Address | City/State/Zipcode | Phone Number | | Organization | | | | + +---------+ + + | [facility] | | | | + +---------+ + + ECG 12 lead (10/03/2016 4:11 AM PDT) + + + + + + | Component | Value | Ref Range | Performed | Pathologist | | | | | At | Signature | + + + + + + | VENTRICULAR | 127 | BPM | [facility] | | | RATE EKG | | | | | + + + + + + | ATRIAL RATE | 127 | BPM | [facility] | | + + + + + + | P-R | 162 | ms | [facility] | | | INTERVAL | | | | | + + + + + + | QRS | 66 | ms | [facility] | | | DURATION | | | | | + + + + + + | Q-T | 296 | ms | [facility] | | | INTERVAL | | | | | + + + + + + | Q-T | 430 | ms | [facility] | | | INTERVAL | | | | | | (CORRECTED) | | | | | + + + + + + | P WAVE AXIS | 57 | degrees | [facility] | | + + + + + + | QRS AXIS | 76 | degrees | [facility] | | + + + + + + | T AXIS | 56 | degrees | [facility] | | + + + + + + | INTERPRETAT | Poor data quality, | | [facility] | | | ION TEXT | interpretation may be | | | | | | adversely affectedSinus | | | | | | tachycardiaNonspecific | | | | | | ST abnormalityAbnormal | | | | | | ECGWhen compared with | | | | | | ECG of 26-SEP-2016 | | | | | | 23:26,No significant | | | | | | change was | | | | | | foundConfirmed by | | | | | | HAWA RUBIN MD ([id number]) | | | | | | on 10/03/2016 6:22:12 AM | | | | + + [...] + +---------+ + + POC Blood Gases (10/03/2016 4:10 AM PDT) + + + + + [...] + + + | pH, POC | 7.119 (L) | 7.350 - 7.500 | [facility] | [facility] | [facility] | [facility] | | | | | | CENTER - | | | | | | LABORATORY | | + + + + + + | HCO3, POC | 8.2 (L) | 21.0 - 28.0 | [facility] | | | | | mmol/L | [facility] | | | | | | MEDICAL | | | | | | CENTER - | | | | | | LABORATORY | | + + + + + + | TCO2, POC | 9.0 (L) | 22.0 - 29.0 | [facility] | | | | | mmol/L | [facility] | | | | | | MEDICAL | | | | | | CENTER - | | | | | | LABORATORY | | + + + + + + | Base | -19.6 (L) | -2.0 - 3.0 | [facility] | | | Excess, POC | | | [facility] | | | | | | MEDICAL | | | | | | CENTER - | | | | | | LABORATORY | | + + + + + + | Base | -21.1 (L) | -2.0 - 3.0 | [facility] | | | Excess, | | mmol/L | [facility] | | | Extracellul | | | MEDICAL | | | ar fluid, | | | CENTER - | | | POC | | | LABORATORY | | + + + + + + | O2 Sat, POC | 40 | | [facility] | | | | | | [facility] | | | | | | MEDICAL | | | | | | CENTER - | | | | | | LABORATORY | | + + + + + + | PCO2, POC | 25.4 | mmHg | [facility] | | | | | | [facility] | | | | | | MEDICAL | | | | | | CENTER - | | | | | | LABORATORY | | + + + + + + | PO2, POC | 29.6 | mmhg | [facility] | | | | | | [facility] [...] + | [facility] | [address] | [place] | [phone] | | [facility] | | [address] | | | - LABORATORY | | | | + + + + + Phosphorus (10/03/2016 4:06 AM PDT) + + + + + + | Component | Value | Ref Range | Performed | Pathologist | | | | | At | Signature | + + + + + + | Phosphorus | 9.6 ()Comment: | 2.5 - 4.6 mg/dL | [facility] | | | | Critical Result called | | [facility] | | | | to and read back by Jerri | | MEDICAL | | | | Porfirio JAMES on | | CENTER - | | | | 10/03/2016 at 9:27 by | | LABORATORY | | | [...] [address] | [place] | [phone] | | [facility] | | [address] | | | - LABORATORY | | | | + + + + + Magnesium (10/03/2016 4:06 AM PDT) + +---------+ + + + | Component | Value | Ref Range | Performed | Pathologist | | | | | At | Signature | + +---------+ + + + | Magnesium | 2.7 (H) | 1.8 - 2.5 mg/dL | [facility] [...] [address] | [place] | [phone] | | [facility] | | [address] | | | - LABORATORY | | | | + + + + + Lipid Panel (10/03/2016 4:06 AM PDT) + + + + + + | Component | Value | Ref Range | Performed | Pathologist | | | | | At | Signature | + + + + + + | Triglycerid | 698 (H) | 35 - 160 mg/dL | [facility] | | | es | | | [facility] | | | | | | MEDICAL | | | | | | CENTER - | | | | | | LABORATORY | | + + + + + + | Cholesterol | 339 (H) | 140 - 200 mg/dL | [facility] | | | | | | [facility] | | | | | | MEDICAL | | | | | | CENTER - | | | | | | LABORATORY | | + + + + + + | HDL | 67Comment: New HDL | 28 - 83 mg/dL | [facility] | | | | Reference Range as of | | [facility] | | | | March 02, 2015 | | MEDICAL | | | | Values may be 10-20% | | CENTER - | | | | lower with new, | | LABORATORY | | | | standardized method. | | | | + + + + + + | Chol/HDL | 5.1 | | [facility] | | | Ratio | | | [facility] | | | | | | MEDICAL | | | | | | CENTER - | | | | | | LABORATORY | | + + + + + + | LDL, | Comment: LDL unable to | <=130 mg/dL | [facility] | | | Calculated | calculate due to high | | [facility] | | | | triglyceride value | | MEDICAL | | | | [...] ST. | [address] | [place] | [phone] | | [facility] | | [address] | | | - LABORATORY | | | | + + + + + Troponin I (10/03/2016 4:06 AM PDT) + + + + + [...] | | | | | | [employer] | | | | | [...] + | [facility] | [address] | [place] | [phone] | | [facility] | | [address] | | | - LABORATORY | | | | + + + + + Extra Gold Top Tube (10/03/2016 4:06 AM PDT) + +-------+ + + + [...] + | [facility] | [address] | [place] | [phone] | | [facility] | | [address] | | | - LABORATORY | | | | + + + + + Extra Blue Top Tube (10/03/2016 4:06 AM PDT) + +-------+ + + + [...] + | [facility] | [address] | [place] | [phone] | | [facility] | | [address] | | | - LABORATORY | | | | + + + + + Beta Hydroxybutyrate, Quant (10/03/2016 4:06 AM PDT) + + + + + + | Component | Value | Ref Range | Performed | Pathologist | | | | | At | Signature | + + + + + + | Beta | >9.00 (H) | 0.02 - 0.27 | [facility] | | | Hydroxybuty | | mmol/L | [facility] | | | rate | | [...] [address] | [place] | [phone] | | [facility] | | [address] | | | - LABORATORY | | | | + + + + + Comprehensive Metabolic Panel (10/03/2016 4:06 AM PDT) + + + + + [...] + + + + | K | 6.1 (HH)Comment: | 3.5 - 5.1 | [facility] | | | | Critical Result called | mmol/L | [facility] | | | | to and read back by | | MEDICAL | | | | ZARIA CASTILLO on | | CENTER - | | | | 10/03/2016 at 4:38 by | | LABORATORY | | | | Siri Covington. | | | | + + + + + + | Cl | 89 (L) | 98 - 109 mmol/L | [facility] | | | | | | [facility] | | | | | | MEDICAL | | | | | | CENTER - | | | | | | LABORATORY | | + + + + + + | CO2 | 7 (LL)Comment: Critical | 24 - 31 mmol/L | [facility] | | | | Result called to and | | [facility] | | | | read back by ANNA | | MEDICAL | | | | ZARIA Mcclain on 10/03/2016 at | | CENTER - | | | | 4:38 by Siri Young | | LABORATORY | | | | Adria. | | | | + + + + + + | Anion Gap | 33 (H) | 3 - 16 mmol/L | [facility] | | | | | | [facility] | | | | | | MEDICAL | | | | | | CENTER - | | | | | | LABORATORY | | + + + + + + | Glucose | 981 (HH)Comment: | 70 - 109 mg/dL | [facility] | | | | Critical Result called | | [facility] | | | | to and read back by | | MEDICAL | | | | ZARIA CASTILLO on | | CENTER - | | | | 10/03/2016 at 4:38 by | | LABORATORY | | | | Siri Covington. | | | | + + + + + + | BUN | 29 (H) | 7 - 18 mg/dL | [facility] | | | | | | [facility] | | | | | | MEDICAL | | | | | | CENTER - | | | | | | LABORATORY | | + + + + + + | Creatinine | 2.41 (H) | 0.60 - 1.30 | [facility] | | | | | mg/dL | [facility] | | | | | | MEDICAL | | | | | | CENTER - | | | | | | LABORATORY | | + + + + + + | eGFR, | 31 (L)Comment: | >=60 | [facility] | | | non- | GLOMERULAR FILTRATION | mL/min/1.73m2 | [facility] | | | [place] | RATE,ESTIMATED | | MEDICAL | | | | mL/min/1.42z6Zysx than | | CENTER - | | [...] + + + + | Calcium | 9.9 | 8.3 - 10.5 | [facility] | | | | | mg/dL | [facility] | | | | | | MEDICAL | | | | | | CENTER - | | | | | | LABORATORY | | + + + + + + | Albumin | 4.2 | 3.2 - 5.0 g/dL | [facility] | | | | | | [facility] | | | | | | MEDICAL | | | | | | CENTER - | | | | | | LABORATORY | | + + + + + + | Bilirubin | 2.5 (H) | 0.1 - 1.5 mg/dL | [facility] | | | Total | | | [facility] | | | | | | MEDICAL | | | | | | CENTER - | | | | | | LABORATORY | | + + + + + + | Total | 6.9 | 6.0 - 7.8 g/dL | [facility] | | | Protein | | | [facility] | | | | | | MEDICAL | | | | | | CENTER - | | | | | | LABORATORY | | + + + + + + | AST | 27 | 10 - 42 U/L | [facility] | | | | | | [facility] | | | | | | MEDICAL | | | | | | CENTER - | | | | | | LABORATORY | | + + + + + + | ALT | 81 (H) | 6 - 45 U/L | [facility] | | | | | | [facility] | | | | | | MEDICAL | | | | | | CENTER - | | | | | | LABORATORY | | + + + + + + | Alkaline | 159 (H) | 40 - 110 U/L | [facility] | | | Phosphatase | | | [facility] | | | | | | MEDICAL | | | | | | CENTER - | | | | | | LABORATORY | | + + + + + + | Globulin | 2.7 | 2.1 - 3.8 g/dL | [facility] [...] + + + + | BUN/Creatin | 12.0 | | [facility] | | | ine [...] [address] | [place] | [phone] | | [facility] | | [address] | | | - LABORATORY | | | | + + + + + CBC with Differential (10/03/2016 4:06 AM PDT) + + + + + + | Component | Value | Ref Range | Performed | Pathologist | | | | | At | Signature | + + + + + + | White Blood | 10.7 | 4.0 - 11.0 K/uL | [facility] | | | Cells | | | [facility] | | | | | | MEDICAL | | | | | | CENTER - | | | | | | LABORATORY | | + + + + + + | Red Blood | 4.01 (L) | 4.30 - 5.70 | [facility] | | | Cells | | M/uL | [facility] | | | | | | MEDICAL | | | | | | CENTER - | | | | | | LABORATORY | | + + + + + + | Hemoglobin | 13.3 (L) | 13.5 - 18.0 | [facility] | | | | | g/dL | [facility] | | | | | | MEDICAL | | | | | | CENTER - | | | | | | LABORATORY | | + + + + + + | Hematocrit | 42.1 | 40.0 - 51.0 % | [facility] | | | | | | [facility] | | | | | | MEDICAL | | | | | | CENTER - | | | | | | LABORATORY | | + + + + + + | MCV | 104.8 (H) | 83.0 - 101.0 fL | [...] + + + + | MCHC | 31.6 (L) | 32.0 - 36.0 | [facility] [...] + + + + | Platelet | 472 (H) | 140 - 440 K/uL | [facility] | | | Count | | | [facility] | | | | | | MEDICAL | | | | | | CENTER - | | | | | | LABORATORY | | + + + + + + | MPV | 7.3 | fL | [facility] | | | | | | [facility] | | | | | | MEDICAL | | | | | | CENTER - | | | | | | LABORATORY | | + + + + + + | % | 81.6 | 45.0 - 82.0 % | [facility] | | | Neutrophils | | | [facility] | | | | | | MEDICAL | | | | | | CENTER - | | | | | | LABORATORY | | + + + + + + | % | 12.4 (L) | 20.0 - 45.0 % | [facility] | | | Lymphocytes | | | [facility] | | | | | | MEDICAL | | | | | | CENTER - | | | | | | LABORATORY | | + + + + + + | % Monocytes | 5.5 | 4.0 - 12.0 % | [facility] | | | | | | [facility] | | | | | | MEDICAL | | | | | | CENTER - | | | | | | LABORATORY | | + + + + + + | % | 0.0 | 0.0 - 5.0 % | [facility] | | | Eosinophils | | | [facility] | | | | | | MEDICAL | | | | | | CENTER - | | | | | | LABORATORY | | + + + + + + | % Basophils | 0.5 | 0.0 - 1.0 % | [facility] | | | | | | [facility] | | | | | | MEDICAL | | | | | | CENTER - | | | | | | LABORATORY | | + + + + + + | Absolute | 8.70 (H) | 1.80 - 8.50 | [facility] | | | Neutrophils | | K/uL | [facility] | | | | | | MEDICAL | | | | | | CENTER - | | | | | | LABORATORY | | + + + + + + | Absolute | 1.30 [...] | 0.10 | 0.00 - 0.10 | [facility] | [...] [address] | [place] | [phone] | | [facility] | | [address] | | | - LABORATORY | | | | + + + + + documented in this encounter Visit Diagnoses + + | Diagnosis | + + | Diabetic ketoacidosis without coma associated with type 1 diabetes mellitus (HCC) - | | Primary | + + | Hyperkalemia Hyperpotassemia | + + | Acute kidney injury (HCC) Acute kidney failure, unspecified | + + | Acute hyperkalemia Hyperpotassemia | + + | Acute renal failure, unspecified acute renal failure type (HCC) | + + | High anion gap metabolic acidosis Acidosis | + + | Nausea and vomiting in adult Nausea with vomiting | + + | Noncompliance with medication regimen Personal history of noncompliance with medical | | treatment, presenting hazards to health | + + | Schizophrenia, unspecified type (HCC) | + + | Sensation of chest tightness, right | + + | Tobacco smoker | + + documented in this encounter Administered Medications + +--------+ +--------+------+------+ | Medication Order | MAR | Action | Dose | Rate | Site | | | Action | Date | | | | + +--------+ +--------+------+------+ | acetaminophen (TYLENOL) tablet | Given | 10/04/19 | 650 mg | | | | 650 mg 650 mg, Oral, EVERY 4 | | 17 10:16 | | | | | HOURS PRN, Pain, or fever >= 38.3 | | PM PDT | | | | | C (101.5 F), Starting Kailey | | | | | | | 10/03/16 at 0850 | | | | | | + +--------+ +--------+------+------+ +---+---+ | | | +---+---+ + +-------+ +--------+---+---+ | dextrose 50% injection 0-15 g | Given | 10/04/19 | 10 mLs | | | | 0-15 g (0-30 mL), Intravenous, | | 17 2:28 | | | | | PRN, Low Blood Sugar, Blood | | PM PDT | | | | | glucose < 80 mg/dL. See | | | | | | | protocol. Recheck blood glucose | | | | | | | in 15 minutes, repeat as | | | | | | | necessary. Notify MD if BG < 80 | | | | | | | mg/dL for 2 consecutive | | | | | | | measurements. , Starting Kailey | | | | | | | 10/03/16 at 0850 | | | | | | + +-------+ +--------+---+---+ +-------+ +-----+---+---+ | Given | 10/04/19 | 5 g | | | | | 17 12:40 | | | | | | PM PDT | | | | +-------+ +-----+---+---+ +---+---+ | | | +---+---+ + +-------+ +--------+---+---+ | dextrose 50% injection 12.5 g | Given | 10/04/19 | 12.5 g | | | | 12.5 g, Intravenous, PRN, Low | | 17 3:36 | | | | | Blood Sugar, Starting [facility] 10/03/16 | | PM PDT | | | | | at 1524 | | | | | | + +-------+ +--------+---+---+ +---+---+ | | | +---+---+ + +-------+ +--------+---+---+ | fentaNYL (PF) injection 50 mcg | Given | 10/04/19 | 50 mcg | | | | 50 mcg, Intravenous, ONCE, Kailey | | 17 4:29 | | | | | 10/03/16 at 0415, For 1 dose | | AM PDT | | | | + +-------+ +--------+---+---+ +---+---+ | | | +---+---+ + +-------+ +--------+---+ + | heparin 5,000 units/mL | Given | 10/04/19 | 5,000 | | Abdomen- | | injection 5,000 Units 5,000 | | 17 9:08 | Units | | RLQ | | Units, Subcutaneous, EVERY 12 | | AM PDT | | | | | HOURS (2 times per day), First | | | | | | | dose on Kailey 10/03/16 at 0915 | | | | | | + +-------+ +--------+---+ + +---+---+ | | | +---+---+ + +-------+ + +---+ + | insulin glargine (LANTUS | Given | 10/04/19 | 20 Units | | Arm-Left | | SOLOSTAR) 100 units/mL injection | | 17 8:26 | | | Upper | | (pen) 20 Units 20 Units, | | PM PDT | | | | | Subcutaneous, NIGHTLY, First dose | | | | | | | (after last modification) on [facility] | | | | | | | 10/03/16 at 1545, For | | | | | | | subcutaneous use only. Basal | | | | | | | (long acting) insulin., | | | | | | + +-------+ + +---+ + +-------+ + +---+ + | Given | 10/04/19 | 20 Units | | Abdomen- | | | 17 3:31 | | | RLQ | | | PM PDT | | | | +-------+ + +---+ + +---+---+ | | | +---+---+ + +-------+ +---------+---+ + | insulin lispro (humaLOG | Given | 10/05/19 | 1 Units | | Arm-Righ | | KWIKPEN) 100 units/mL injection | | 17 8:27 | | | t Upper | | (pen) 0-6 Units 0-6 Units, | | AM PDT | | | | | Subcutaneous, 4 TIMES DAILY WITH | | | | | | | MEALS & NIGHTLY, First dose on | | | | | | | Kailey 10/03/16 at 1700, CORRECTION | | | | | | [...] | | | | | NPO, Daytime [id number] Use NIGHT | | | | | | | DOSE for doses scheduled: | | | | | | | HS, 3AM, Nighttime [phone], | | | | | | + +-------+ +---------+---+ + +-------+ +---------+---+ + | Given | 10/04/19 | 4 Units | | Arm-Righ | | | 17 8:27 | | | t Upper | | | PM PDT | | | | +-------+ +---------+---+ + | Given | 10/04/19 | 1 Units | | Arm-Left | | | 17 5:29 | | | Upper | | | PM PDT | | | | +-------+ +---------+---+ + +---+---+ | | | +---+---+ + +-------+ +---------+---+ + | insulin lispro (humaLOG | Given | 10/05/19 | 5 Units | | Arm-Righ | | KWIKPEN) 100 units/mL injection | | 17 8:28 | | | t Upper | | (pen) 5 Units 5 Units, | | AM PDT | | | | | Subcutaneous, 3 TIMES DAILY WITH | | | | | | | MEALS, First dose on [facility] 10/03/16 | | | | | | | at 1815 | | | | | | + +-------+ +---------+---+ + +-------+ +---------+---+ + | Given | 10/04/19 | 5 Units | | Abdomen- | | | 17 7:26 | | | RLQ | | | PM PDT | | | | +-------+ +---------+---+ + +---+---+ | | | +---+---+ + + + + +-------+---+ | insulin regular (humuLIN R, | Rate/Dos | 10/04/19 | 0.05 | 0.1 | | | novoLIN R) 1 Units/mL in sodium | e Change | 17 3:30 | Units/hr | mL/hr | | | chloride 0.9% 100 mL infusion | | PM PDT | | | | | (Adult Protocol) 0-101.2 | | | | | | | Units/hr (0-101.2 mL/hr), at | | | | | | | 0-101.2 mL/hr, Intravenous, | | | | | | | TITRATED, Starting [facility] 10/03/16 at | | | | | | | 0915, See link for Adult | | | | | | | Columnar Insulin Infusion (on | | | | | | | MAR) and Insulin Infusion | | | | | | | Protocol order for administration | | | | | | | instructions., | | | | | | + + + + +-------+---+ + + + +-------+---+ | Restarted | 10/04/19 | 0.1 | 0.1 | | | | 17 2:48 | Units/hr | mL/hr | | | | PM PDT | | | | + + + +-------+---+ | Restarted | 10/04/19 | 0.2 | 0.2 | | | | 17 1:04 | Units/hr | mL/hr | | | | PM PDT | | | | + + + +-------+---+ +---+---+ | | | +---+---+ + +---------+ + +---------+---+ | insulin regular (humuLIN R, | New Bag | 10/04/19 | 7 | 7 mL/hr | | | novoLIN R) 1 Units/mL in sodium | | 17 4:12 | Units/hr | | | | chloride 0.9% 100 mL infusion 7 | | AM PDT | | | | | Units/hr (7 mL/hr), at 7 mL/hr, | | | | | | | Intravenous, TITRATED, Starting | | | | | | | [facility] 10/03/16 at 0405 | | | | | | + +---------+ + +---------+---+ +---+---+ | | | +---+---+ + +-------+ +---------+---+---+ | insulin regular (humuLIN R, | Given | 10/04/19 | 7 Units | | | | novoLIN R) injection 7 Units 7 | | 17 4:10 | | | | | Units, Intravenous, ONCE, [facility] | | AM PDT | | | | | 10/03/16 at 0405, For 1 dose | | | | | | + +-------+ +---------+---+---+ +---+---+ | | | +---+---+ + +-------+ +-------+---+---+ | pantoprazole (PROTONIX) | Given | 10/04/19 | 40 mg | | | | injection 40 mg 40 mg, | | 17 9:08 | | | | | Intravenous, DAILY, First dose on | | AM PDT | | | | | [facility] 10/03/16 at 0915, If | | | | | | | reconstituting, mix each 40 mg | | | | | | | vial with 10 mL NS to make 4 | | | | | | | mg/mL., | | | | | | + +-------+ +-------+---+---+ +---+---+ | | | +---+---+ + +---------+ +--------+-------+---+ | sodium chloride 0.9% (NS) bolus | New Bag | 10/04/19 | 1,000 | 2000 | | | 1,000 mL 1,000 mL, Intravenous, | | 17 4:12 | mLs | mL/hr | | | Administer over 30 Minutes, | | AM PDT | | | | | ONCE, [facility] 10/03/16 at 0405, For 1 | | | | | | | dose | | | | | | + +---------+ +--------+-------+---+ +---+---+ | | | +---+---+ + +---------+ +---+-------+---+ | sodium chloride 0.9% (NS) | New Bag | 10/04/19 | | 250 | | | infusion at 250 mL/hr, | | 17 1:43 | | mL/hr | | | Intravenous, CONTINUOUS, Starting | | PM PDT | | | | | [facility] 10/03/16 at 0510 | | | | | | + +---------+ +---+-------+---+ +---------+ +---+-------+---+ | New Bag | 10/04/19 | | 250 | | | | 17 9:32 | | mL/hr | | | | AM PDT | | | | +---------+ +---+-------+---+ | New Bag | 10/04/19 | | 250 | | | | 17 6:08 | | mL/hr | | | | AM PDT | | | | +---------+ +---+-------+---+ +---+---+ | | | +---+---+ documented in this encounter
--- OUTSIDE RECORDS SUMMARY | ~2020-02-12 | XMS | Encounter Summary ---
Demographics + + + | Address | [address] | | | [place] [address] | + + + | Home Phone [...] Team Providers + +------+ + | Care Instrument And Control Technician Name | Role | Phone | [...] + + | 09/26/ | Hospital | [facility] | Juanjose Ross MD | Diabetic | | 2017 - | Encounter | [facility] | [address] | ketoacidosis without | | | | [address] | [place] | coma associated | | 09/28/ | | [place] [address] | [id number] | with type 1 diabetes | | 2017 | | [phone] | | mellitus (HCC) | | | | | Yancy Barron MD | (Primary Dx); | | | | | [address] | Hyperkalemia; Acute | | | | | [place] | renal failure, | | | | | [address] | unspecified acute | | | | [...] 09/26/2016 Date of Discharge: 09/28/2016 Admitting Physician: Junajose Ross MD Discharging Physician: Yancy Barron MD [...] week. Specialty: Family Nurse Practitioner Contact information: [address] [facility] [address] [facility] [address] [place] [address] Discharge Medications Unchanged Medications Details insulin glargine 100 units/mL injection (vial) Inject 9 Units under the skin 2 times daily. aka: LANTUS insulin lispro 100 units/mL injection (cartridge) Inject 2 Units under the skin 3 times daily (before meals). Plus sliding scale. aka: humaLOG Discontinued Medications aspirin 81 mg chewable tablet XP-Tgafjislxgnwo-Iuibspezvkdrb 10-5-325 MG Caps HYDROcodone-acetaminophen 5-325 mg per tablet aka: NORCO STRATTERA 100 MG capsule Generic drug: atoMOXetine Studies With Pending Results: None Greater than 30 minutes were spent on discharge and coordination of post-hospital care. Electronically signed by: Yancy Barron MD, 09/28/2016 13:20 [facility] documented in this enc ounter Discharge Instructions [...] [x] Pharmacy list names: Anthony Morris [] [facility] [employer] PILOT (Prescription Monitoring Program) [x] [employer] insurance reported [...] Marijuana lungs 3 times weekly unknown Other: Bi-Naoma reports patient appears non-compliant with his medications. 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 Name/Age/: [...] Take 100 mg by mouth every morning. WO-Mcrajygvpqsyl-Tdoskqngsbkjg 10-5-325 MG CAPS Take 1 capsule by [...] signed by: Juanjose Ross MD 09/27/2016 3:31 [facility] documented in this enc ounter Consult Notes [...] Needs: (based on 55 kg) Kcal needs: 6633-0243 Kcals/day Protein needs:65-80 grams of protein/day Fluid goal:1181-3052 cc fluid per day Nutrition Diagnosis: Severe [...] in 3 days. Available as needed, ext [phone] Assessment: Diet Order: For your reference, current, [...] 12:01 PM PDTAssociated Order(s): IP CONSULT TO DELIVERER FOOD banking center manager Patricia called to request strips for this [...] Take 100 mg by mouth every morning. YZ-GVWODWADIIKKU-TEGGJCZFBXCTH 10-5-325 MG CAPS Take 1 capsule by [...] by me Rhythm: Sinus tachycardia Rate: 115 Rosalia: normal Ectopy: none Conduction: normal ST Segments: [...] consultation initiated. - Pt will be instructed pediatric occupational therapist light use, room lighting will be maintained [...] oth er complaints at this time eICU aGil - Arleth Tomas RN - 09/27/2016 5:40 PM PDTTransferred to room [address] lan of Care - Z richard, Arleth Condon RN - 09/27/2016 5:29 PM PDTProblem: Patient Care Overview (Adult) Goal: Care Team Goals & Evaluation PROBLEM-RELATED GOALS: 1. Join will maintain Blood sugars in range of [...] consultation initiated. - Pt will be instructed pediatric occupational therapist light use, room lighting will be maintained appopriately, r oom will be kept clutter free. grippy socks will be used when out of bed. RESTRAINT-RELATED GOALS: STRATEGIES TO ACHIEVE RESTRAINT GOALS: Outcome: Improving Goal Evaluation: Insulin drip off around 10 am. Requesting small frequent snacks. VSS. Glucose prior to d inner 383, covered per SS insulin. To transfer to [address] [place] [address] on telemetry. Report to Hira Vyas RN [...] Outcomes: Patient seemed to be appreciative of contracts manager's visit. Spiritual Goals / Follow-up: Will see the patient as requested. If there are any other spiritual care issues that arise, please contact contracts manager. lan of Care - Ursula Haskins RN [...] see inpatient consult completed today. lan of [facility] - Patricia Matos RN - 09/27/2016 11:36 AM PDTProblem: Discharge Planning Goal: Patient will be discharged in a safe manner Outcome: Unchanged This CM met with patient briefly to begin his discharge plan process. He did confirm that his PCP is DENIS Diallo, in [place], [place], and that is where both his mother and he stay. When asking him if his mother was going to transport him home, he stated he was not sure at this time. He just has been admitted so CM will work with him at a later time regarding where he will be going and with what transport. He does have [facility] Medicaid. He states that he has [...] need to address patient's food issues. Per forcer maker, patient stated that he d oes not [...] [address] | [place] | [phone] | | [facility] | | [address] | | | - LABORATORY | | [...] + | [facility] | [address] | [place] | [phone] | | [facility] | | [address] | | | - LABORATORY | | [...] mL/min/1.73m2 | [facility] | | | [place] | RATE,ESTIMATED | | MEDICAL | | | | mL/min/1.36d9Dmoq than | | CENTER - | | [...] [address] | [place] | [phone] | | [facility] | | [address] | | | - LABORATORY | | [...] [address] | [place] | [phone] | | [facility] | | [address] | | | - LABORATORY | | [...] + | [facility] | [address] | [place] | [phone] | | [facility] | | [address] | | | - LABORATORY | | [...] | | | POC | | | [facility] | | | | | [...] [address] | [place] | [phone] | | [facility] | | [address] | | | - LABORATORY | | | | + + + + + Phosphorus (09/27/2016 3:42 PM PDT) + +-------+ + + + | Component | Value | Ref Range | Performed | Pathologist | | | | | At | Signature | + +-------+ + + + | Phosphorus | 4.3 | 2.5 - 4.6 mg/dL | [facility] [...] ST. | [address] | [place] | [phone] | | [facility] | | [address] | | | [...] [address] | [place] | [phone] | | [facility] | | [address] | | | - LABORATORY | | [...] (L) | 24 - 31 mmol/L | [facility] | | | | [...] (H) | 7 - 18 mg/dL | [facility] | | | | | | [facility] | | | | | | MEDICAL | | | | | | CENTER - | | | | | | LABORATORY | | + + + + + + | Creatinine | 1.21 | 0.60 - 1.30 | [facility] | | | | | mg/dL | [facility] | | | | | | MEDICAL | | | | | | CENTER - | | | | | | LABORATORY | | + + + + + + | eGFR, | >60Comment: GLOMERULAR | >=60 | [facility] | | | non- | FILTRATION | mL/min/1.73m2 | [facility] | | | [place] | RATE,ESTIMATED | | MEDICAL | | | | mL/min/1.35y3Crqh than | | CENTER - | | [...] [address] | [place] | [phone] | | [facility] | | [address] | | | - LABORATORY | | [...] ST. | [address] | [place] | [phone] | | [facility] | | [address] | | | - LABORATORY | | [...] [address] | [place] | [phone] | | [facility] | | [address] | | | - LABORATORY | | [...] 18 | 7 - 18 mg/dL | [facility] | | | | | | ST. [...] mL/min/1.73m2 | [facility] | | | [place] | RATE,ESTIMATED | | MEDICAL | | | | mL/min/1.48d3Sjgv than | | CENTER - | | [...] [address] | [place] | [phone] | | [facility] | | [address] | | | - LABORATORY | | [...] - 1.030 | [facility] | | | [place], | | | [facility] | | [...] [address] | [place] | [phone] | | [facility] | | [address] | | | - LABORATORY | | [...] [address] | [place] | [phone] | | [facility] | | [address] | | | - LABORATORY | | [...] ST. | [address] | [place], [place] | [phone] | | [facility] | | [address] | | | - LABORATORY | | [...] mL/min/1.73m2 | [facility] | | | [place] | RATE,ESTIMATED | | MEDICAL | | | | mL/min/1.21e9Dwzw than | | CENTER - | | [...] [address] | [place] | [phone] | | [facility] | | [address] | | | - LABORATORY | | [...] [address] | [place] | [phone] | | [facility] | | [address] | | | - LABORATORY | | [...] | [address] | [place] | [phone] | | [facility] | | [address] | | | - LABORATORY | | [...] [address] | [place] | [phone] | | [facility] | | [address] | | | - LABORATORY | | | | + + + + + Magnesium (09/27/2016 7:27 AM PDT) + +-------+ + + + | Component | Value | Ref Range | Performed | Pathologist | | | | | At | Signature | + +-------+ + + + | Magnesium | 2.2 | 1.8 - 2.5 mg/dL | [facility] | | | | | | [facility] | | | | | | MEDICAL | | | | | | [place] - | | | | | | LABORATORY | | + +-------+ + + + + + | Specimen | + + | Blood | + + + + + + + | Performing | Address | City/State/Zipcode | Phone Number | | Organization | | | | + + + + + | [facility] | [address] | [place] | [phone] | | [facility] | | [address] | | | - LABORATORY | | [...] eGFR, | 56 (L)Comment: | >=60 | [facility] | | | non- | GLOMERULAR FILTRATION | mL/min/1.73m2 | [facility] | | | [place] | RATE,ESTIMATED | | MEDICAL | | | | mL/min/1.79r5Rcth than | | CENTER - | | [...] [address] | [place] | [phone] | | [facility] | | [address] | | | [...] + | [facility] | [address] | [place], [place] | [phone] | | [facility] | | [address] | | | - LABORATORY | | [...] [address] | [place] | [phone] | | [facility] | | [address] | | | - LABORATORY | | | | + + + + + Phosphorus (09/27/2016 5:08 AM PDT) + +-------+ + + + | Component | Value | Ref Range | Performed | Pathologist | | | | | At | Signature | + +-------+ + + + | Phosphorus | 3.0 | 2.5 - 4.6 mg/dL | [facility] [...] [address] | [place] | [phone] | | [facility] | | [address] | | | - LABORATORY | | | | + + + + + Magnesium (09/27/2016 5:08 AM PDT) + +-------+ + + + | Component | Value | Ref Range | Performed | Pathologist | | | | | At | Signature | + +-------+ + + + | Magnesium | 2.1 | 1.8 - 2.5 mg/dL | [facility] [...] [address] | [place] | [phone] | | [facility] | | [address] | | | - LABORATORY | | [...] (H) | 7 - 18 mg/dL | [facility] | | | | | | [facility] | | | | | | MEDICAL | | | | | | CENTER - | | | | | | LABORATORY | | + + + + + + | Creatinine | 1.72 (H) | 0.60 - 1.30 | [facility] | | | | | mg/dL | [facility] | | | | | | MEDICAL | | | | | | CENTER - | | | | | | LABORATORY | | + + + + + + | eGFR, | 45 (L)Comment: | >=60 | [facility] | | | non- | GLOMERULAR FILTRATION | mL/min/1.73m2 | [facility] | | | [place] | RATE,ESTIMATED | | MEDICAL | | | | mL/min/1.33f7Xtzo than | | CENTER - | | [...] [address] | [place] | [phone] | | [facility] | | [address] | | | - LABORATORY | | [...] [address] | [place] | [phone] | | [facility] | | [address] | | | - LABORATORY | | [...] + | [facility] | [address] | [place] | [phone] | | [facility] | | [address] | | | - LABORATORY | | [...] [facility] | | | | | | [facility] | | [...] + | [facility] | [address] | [place] | [phone] | | [facility] | | [address] | | | - LABORATORY | | [...] ST. | [address] | [place], [place] | [phone] | | [facility] | | [address] | | | - LABORATORY | | [...] 1.89 (H) | 0.60 - 1.30 | [facility] | | | | | mg/dL | [facility] | | | | | | MEDICAL | | | | | | CENTER - | | | | | | LABORATORY | | + + + + + + | eGFR, | 41 (L)Comment: | >=60 | [facility] | | | non- | GLOMERULAR FILTRATION | mL/min/1.73m2 | [facility] | | | [place] | RATE,ESTIMATED | | MEDICAL | | | | mL/min/1.76n4Zrrb than | | CENTER - | | [...] [address] | [place] | [phone] | | [facility] | | [address] | | | - LABORATORY | | [...] [address] | [place] | [phone] | | [facility] | | [address] | | | - LABORATORY | | [...] + | [facility] | [address] | [place] | [phone] | | [facility] | | [address] | | | - LABORATORY | | [...] [address] | [place] | [phone] | | [facility] | | [address] | | | - LABORATORY | | [...] | | | PCR | | | . [facility] | | [...] [address] | [place] | [phone] | | [facility] | | [address] | | | - LABORATORY | | [...] [address] | [place] | [phone] | | [facility] | | [address] | | | - LABORATORY | | [...] + | [facility] | [address] | [place] | [phone] | | [facility] | | [address] | | | - LABORATORY | | [...] mL/min/1.73m2 | [facility] | | | [place] | RATE,ESTIMATED | | MEDICAL | | | | mL/min/1.70r1Ybms than | | CENTER - | | [...] [address] | [place] | [phone] | | [facility] | | [address] | | | - LABORATORY | | [...] [address] | [place] | [phone] | | [facility] | | [address] | | | - LABORATORY | | [...] + | [facility] | [address] | [place] | [phone] | | [facility] | | [address] | | | - LABORATORY | | [...] MD | | | | | | ([id number]) on 09/27/2016 | | | | | [...] + | [facility] | [address] | [place] | [phone] | | [facility] | | [address] | | | - LABORATORY | | [...] ST. | [address] | [place] | [phone] | | [facility] | | [address] | | | - LABORATORY | | [...] (H) | 7 - 18 mg/dL | [facility] | | | | | | [facility] | | | | | | MEDICAL | | | | | | CENTER - | | | | | | LABORATORY | | + + + + + + | Creatinine | 2.25 (H) | 0.60 - 1.30 | [facility] | | | | | mg/dL | [facility] | | | | | | MEDICAL | | | | | | CENTER - | | | | | | LABORATORY | | + + + + + + | eGFR, | 33 (L)Comment: | >=60 | [facility] | | | non- | GLOMERULAR FILTRATION | mL/min/1.73m2 | [facility] | | | [place] | RATE,ESTIMATED | | MEDICAL | | | | mL/min/1.13z4Epqx than | | CENTER - | | [...] [address] | [place] | [phone] | | [facility] | | [address] | | | - LABORATORY | | [...] ST. | [address] | [place] | [phone] | | [facility] | | [address] | | | - LABORATORY | | [...] [address] | [place] | [phone] | | [facility] | | [address] | | | - LABORATORY | | [...] + | [facility] | [address] | [place], [place] | [phone] | | [facility] | | [address] | | | [...] [address] | [place] | [phone] | | [facility] | | [address] | | | - LABORATORY | | [...] [address] | [place] | [phone] | | [facility] | | [address] | | | - LABORATORY | | [...] + | [facility] | [address] | [place] | [phone] | | [facility] | | [address] | | | - LABORATORY | | [...] | | | POC | | | [facility] | | [...] [address] | [place] | [phone] | | [facility] | | [address] | | | - LABORATORY | | [...] | | | | | | | 9137-9872 Use NIGHT DOSE for | | | | | | | doses scheduled: HS, 3AM, | | | | | | | Nighttime 3061-7265, | | | | | | + [...] | | | | | NPO, Daytime 4432-9390 Use NIGHT | | | | | | | DOSE for doses scheduled: | | | | | | | HS, 3AM, Nighttime 1841-7369, | | | | | | + [...] PDT | | | | | Starting Fri09/27/16 at 0449, | | | | | [...] PDT | | | | | ONCE, [facility] 09/26/16 at 2305, For 1 [...] PDT | | | | | ONCE, [facility] 09/26/16 at 2355, For 1 [...] | mL/hr | | | Intravenous, ONCE, [facility] 09/27/16 at | | AM PDT [...]
--- OUTSIDE RECORDS SUMMARY | ~2020-02-12 | XMS | Encounter Summary ---
Demographics + + + | Address | [address] | | | [place] [address] | + + + | Home Phone [...] Author + + + | Author | [facility] | | | and Ryana | + + + | Organization | [facility] | | | [...] Team Providers + +------+ + | Care Thread Grinder Name | Role | Phone | [...] [address] | | | | | | [place], [place] | | | | | | [address] | | | | | | [phone] | | | +--------+ + + + [...] [address] | [place] | [phone] | | [facility] | | [address] | | | - LABORATORY | | | | + + + + + documented in this encounter Visit Diagnoses Not on filedocumented in this encounter"
--- OUTSIDE RECORDS SUMMARY | ~2020-02-12 | XMS | Clinical Summary ---
Demographics + + + | Address | [address] | | | [place] [address] | + + + | Home Phone [...] + + | Author | [facility] | | | and Ryana | + + + | Organization | [facility] | | | [...] Team Providers + +------+ + | Care Argon Tester Name | Role | Phone | [...] | [employer] | [employer] | [id number] | 01/22/20 | [phone] | | [employer] | | MEDICAID HMO | HEALTH | | 16-Pre | 1 | | id | | | MDCD | | sent | | | | | | [place] | | | | | | + +--------+ +--------+ +---------+--------+ | [employer] | [employer] | [id number] | 05/17/ | [phone] | | [employer] | | MEDICAID HMO [...] lisa | | | 9 (Home) | [address] | + +--------+ +--------+ + + | Joni Kwon | Person | Self | [birth year] | | [address] | | [place] | al/Fam | | 1980 | [phone] | [address] [place] | | | lisa | | | 9 (Home) | [address] | + +--------+ +--------+ + + | Joni Kwon | Mental | Self | [birth year] | | [address] | | [place] | | | 1981 | [phone] | [address] [place] | | | Health | | | 9 ([place]) | [address] | + +--------+ +--------+ + + Advance Directives + + + + + | Type | Date Recorded | Patient | Explanation | | | | Naprapath | | + + + + + | Power of | | | | | Residential Life Director | | | | + + + [...]
--- OUTSIDE RECORDS SUMMARY | ~2020-02-12 | XMS | Encounter Summary ---
Demographics + + + | Address | [address] | | | [place] [address] | + + + | Home Phone | | + + + | Preferred Language | Unknown | + + + | Marital Status | Single | + + + | Jainism Affiliation | 1001 | + + + | Race | White | + + + | Ethnic Group | Not or | + + + Author + + + | Author | [facility] | | | and Ryana | + + + | Organization | [facility] | | | and [...] Team Providers + +------+ + | Care Immunology Specialist Name | Role | Phone | + +------+ + PCP | Unavailable | + +------+ + Encounter Details +--------+ + + + + | Date | Type | Department | Care Team | Description | +--------+ + + + + | 02/23/ | [facility] | ROGELIO TALAMANTES | Abhi Berger | | | 2003 | Encounter | FAMILY MEDICINE 120 | MD [address] | | | | | [place] | [place], [place] | | | | | [place] [address] | [address] | | | | | [phone] | | | +--------+ + + + [...]
--- OUTSIDE RECORDS SUMMARY | ~2020-02-12 | XMS | Encounter Summary ---
Demographics + + + | Address | [address] | | | [place] [address] | + + + | Home Phone [...] Team Providers + +------+ + | Care Aerophysicist Name | Role | Phone | + +------+ + PCP | Unavailable | + +------+ + Encounter Details +--------+ + + + + | Date | Type | Department | Care Team | Description | +--------+ + + + + | 05/01/ | [facility] | ROGELIO TALAMANTES | Abhi Berger | | | 2003 | Encounter | FAMILY MEDICINE 120 | MD [address] | | | | | [address] [place] | [place], [place] | | | | | [place] [address] | [address] | | | | | [phone] | | | +--------+ + + + [...]
--- OUTSIDE RECORDS SUMMARY | ~2020-02-12 | XMS | Encounter Summary ---
Demographics + + + | Address | [address] | | | [place] [address] | + + + | Home Phone [...] Team Providers + +------+ + | Care Wrapper Cashier Name | Role | Phone | + [...] + + | 04/09/ | Emergency | [facility] | Adi Castro | Hyperglycemia | | 2017 | | [facility] | Alexander Craig MD | (Primary Dx) | | | | CENTER [address] | [address] | | | | | [place] | [place] | | | | | [address] | [address] | | | | | [phone] | | | +--------+ + + + [...] Children Joni Kwon Emergency Department Encounter Note [address] [place] [address] PCP:DENIS Paul [phone] eMERGENCY dEPARTMENT eNCOUnter CHIEF [...] deficits noted, no facial assymetry noted. 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 Occasi onal wrong-word or [...] | | | ON?10/ | | | 18 | | | 7 | | | 09:07? | | | DOYLE | | | , | | | BENJAM | | | IN | | | J?MRN: | | | | | | [id number] | | | [id number] | | | his | | | [...] | | | St. | | | [facility] | | | y H. | | [...] | | | St. | | | [facility] | | | y H. | | [...] | | | St. | | | [facility] | | | y H. | | [...] | | | St. | | | [facility] | | | y H. | | [...] | | | St. | | | [facility] | | | y H. | | [...] | | | St. | | | [facility] | | | y | | | [...] + | [facility] | [address] | [place] | [phone] | | [facility] | | [address] | | | - LABORATORY | | [...] ST. | [address] | [place], [place] | [phone] | | [facility] | | [address] | | | - LABORATORY | | [...] [address] | [place] | [phone] | | [facility] | | [address] | | | - LABORATORY | | [...] + | [facility] | [address] | [place] | [phone] | | [facility] | | [address] | | | - LABORATORY | | [...] + | [facility] | [address] | [place], [place] | [phone] | | [facility] | | [address] | | | - LABORATORY | | | | + + + + + Lipase (04/09/2017 9:40 AM PDT) + +-------+ + + + | Component | Value | Ref Range | Performed | Pathologist | | | | | At | Signature | + +-------+ + + + | Lipase | 23 | 0 - 60 U/L | [facility] | | | | | [...] [address] | [place] | [phone] | | [facility] | | [address] | | | - LABORATORY | | [...] 14 | 7 - 18 mg/dL | [facility] | | | | | | [facility] | | | | | | MEDICAL | | | | | | CENTER - | | | | | | LABORATORY | | + + + + + + | Creatinine | 0.93 | 0.60 - 1.30 | [facility] | | | | | [...] mL/min/1.73m2 | [facility] | | | [place] | RATE,ESTIMATED | | MEDICAL | | | | mL/min/1.34d9Xmhl than | | CENTER - | | [...] 3.3 | 3.2 - 5.0 g/dL | [facility] [...] [address] | [place] | [phone] | | [facility] | | [address] | | | - LABORATORY | | [...] | | Lymphocytes | | | [facility] | | | | | | MEDICAL [...] | | Basophils | | K/uL | [employer] [facility] [...] [address] | [place] | [phone] | | [facility] | | [address] | | | - LABORATORY | | [...] 1.001 - 1.030 | | | | [place], | | | | | | [facility], [...] | | POC | | | [facility] | | | | | | MEDICAL [...] [address] | [place] | [phone] | | [facility] | | [address] | | | - LABORATORY | | [...] +-------+------+------+ | albuterol-ipratropium (DUONEB) | Given | /18/20 | 3 mLs | | | | [...]
--- OUTSIDE RECORDS SUMMARY | ~2020-02-12 | XMS | Encounter Summary ---
Demographics + + + | Address | [address] | | | [place] [address] | + + + | Home Phone [...] Team Providers + +------+ + | Care Alliance Manager Name | Role | Phone | [...] out due to | | | | [place], [place] | | patient leaving | | | | [address] | | prior to being seen | | | | [phone] | | by health care | | [...] J?MRN: | | | | | | [id number] | | | [id number] | | | his | | | [...] | | | St. | | | [facility] | | | y | | | [...] | | | St. | | | [facility] | | | y H. | | [...] | | | St. | | | [facility] | | | y H. | | [...] | | | St. | | | [facility] | | | y H. | | [...] | | | St. | | | [facility] | | | y H. | | [...] | | | St. | | | [facility] | | | y H. | | [...] | | | St. | | | [facility] | | | y | | | [...] | | | ext. | | | [phone] | | | or go | | [...]
--- OUTSIDE RECORDS SUMMARY | ~2020-02-12 | XMS | Encounter Summary ---
Demographics + + + | Address | [address] | | | [place] [address] | + + + | Home Phone [...] Team Providers + +------+ + | Care Clerical Stock Inspector Name | Role | Phone | [...] + + | 05/17/ | Hospital | [facility] | Espinoza, | Schizophrenia, | | 2019 - | Encounter | [facility] | DO Benjamin [address] | unspecified type | | | | CARE FLOOR [address] | [address] | (HCC) (Primary Dx); | | 05/21/ | | [address] | [place] [address] | Acute psychosis | | 2019 | | [place], [place] | [phone] | (HCC); Marijuana | | | | [address] | | use; Nausea and | | | | [phone] | Tacos Brian MD | vomiting in adult; | | | | | [address] | Noncompliance with | | | | | [place], [place] | medication regimen; | | | | | [address] | Tobacco smoker | | | | | [phone] | within last 12 | | | | | | months; Type 1 | | | | | [place] | diabetes mellitus | | | | | [address] | without complication | | | | | [place] [address] | (HCC); | | | | | [phone] | Schizoaffective | | | | | | disorder, bipolar | | | | | Hosea Watson, | type (HCC); Acute | | | | | [address] [facility] | hyperkalemia | | | | | [place] [address] | | | | | | [phone] | | | | | | | | | | | | Cony Castillo, | | | | | | [address] [facility] | | | | | | [place] [address] | | | | | | [phone] | | | | | | | [...] might be different f rom the original. [facility] Service: Hospitalist Discharge Summary Date of [...] s morning. The patient was accepted to [facility] for further treatment. The patient [...] mg by mouth as needed for Nicotine Assembly Department Supervisor ving. Chew and tuck 1 piece [...] to patient ledarien ng. Report given to [facility]. Security came and gave patient back his belongings. Patient sent ina watsonjohn home with his mother. No other concerns noted. [facility] here to take patient to [facility]. Elisa Mendez RN 5:41 PM Elisa Marquez RN - 1 07/21/2018 5:15 PM PSTPatient's blood sugar 66. Waiting on food to arrive. Rhododendron juice and doyle crackers given. Patient's dinner arrived. [facility] here but needing to get blood sugar sta bilized before transport. Elisa Mendez RN 5:16 PM Elisa Marquez RN - 1 07/21/2018 2:20 PM PSTNurse from [facility] [place] called to get update on patient. Nurse [...] this note might be different from the [facility] Service: Hospitalist Progress Note Hospital Day: LOS: [...] Kirkland MD - 05/20/2019 12:18 PM PST [facility] Service: Hospitalist Progress Note Hospital Day: [...] Kirkland MD - 05/19/2019 2:57 PM PST [facility] Service: Hospitalist Progress Note Hospital Day: [...] Status: Full Code Hosea Watson MD 05/19/2019 docuethan d in this encounter H&P Notes Cony [...] his mother after he walked out of [facility] ED for same problems. He expressed suicidal [...] today. Will resume his long acting in [facility] on [facility]. 3. Tobacco use- [...] "You have chosen to [facility] the use of telemedicine. Telemedicine enables health care providers at different locatio ns to provide safe, effective, and convenient care through the use of technology. As with an health care service, there are risks associated with the use of telemedicine including, bu t not limited to, equipment failure, poor image resolution, and information security officer issues. " The following questions were asked [...] Reason for Consult: Patient detained Originating Site: [facility] ([place]) Referral: Patient is referred by Hosea Watson MD. History obtained from: Chart review, Referring MD and CM Communication limitations noted:Ac uity of illness and Mental status Chief Complaint: "I don't want to talk" HPI: The patient was sedated and uncooperative upon attempted interview. Attempted to enga ge the patient multiple times. associate project manager return to patient room after my [...] expressed suicidal ideation and a form of Capparth hernandez n on the phone with her. Patient was brought to [facility]. However, the pat kathleen left that emergency department. The patient's mother picked him up and brought him to [facility]. The patient was evaluated, found to [...] the patient has not been taking his [facility] medications as prescribed. KELLY.Also notes [...] negative. Past Psychiatric History: Inpatient treatment: See [facility] psychiatry discharge summary from 09/09/2013 for admi ssion spanning 07/14-09/09/2013; patient "under guardianship" at that time. Patient admitted with uncontrolled type 1 diabetes mellitus and severe, decompensated schizoaffective disorde r, bipolar type. Discharge summary notes, "Patient with schizoaffective disorder. He has be en in the [facility] systems in the past including [facility] and [place]. Currently fol lowed through [facility]. Dr. Cardenas is his psychiatrist." Outpatient treatment: Per KELLY: "Care Coordination: Please call EOIP[facility] CM team if pt. presents to the ED Janeth MARTINEZ/TIMOTHY or Rin dexter RN [phone] Please be aware pt. is not currently taking any of his MH medications. PT. is also involved in the ACT team through [employer] . These are guidelines and the provider should exercise clinical judgment when providing care . ED Care Guidelines from [facility] Last Updated: 12/28/18 10:15 AM Care Coordination: Currently engaged in mental health services with the ACT Team at [facility].? Please contact [facility] with mental health concerns.? Ayla/Presely Anguiano: [phone]? These are guidelines and the provider should [...] mg by mouth as needed for Nicotine Assembly Department Supervisor ving. Chew and tuck 1 piece [...] delusions or obsessions during my interview; however, [facility] record suggests Capgras-like delusion and delusions [...] Unable to assess (see above). Safety Assessments: Oxford-Suicide Severity Rating Scale (C-SSRS) Admit/Consult Screen 1. [...] the assessment was de rived from the Oxford-Suicide Severity Rating Scale, the SAFE-T, best available [...] psychiatric hospitalization. The patient has a patient's loss prevention/safety district manager. We are attempting to optimize psychiatric treatment. Homicide/Violent Behavior Risk Assessment: Unable to assess for the presence or absence of homicidal ideation, violent preoccupations, or other violent thoughts/behavioral patterns du e to the aforementioned sedation and uncooperativeness. The patient is currently hospitaliz ed, detained, and has a patient's loss prevention/safety district manager. We are attempting to optimize the patie [...] patient is detained. Continue one-to-one patient monitor/patient's loss prevention/safety district manager. -Do not restart atomoxetine or any of [...] hesi frankel to call us through the Int[facility] if you have questions. MDM Statement: Moderate. [...] contacted multiple inpatient facilities, and are awaiti return phone calls for approval. 1500: Patient's [...] from cafeteria for patient. Will continue to [facility]. Marbin Vance RN - 05/18/2019 12:54 [...] staff, and throwing th ings at crisis customer development representative. Pt broke a chair in the room and through his food on the floo r. Pt is resting in bed; security and [employer] at bedside. Pt is cooperating with staff at [facility] e. Will continue to monitor. When [...] Josh Perez RN - 05/18/2019 9:09 AM PSTMarshfield gyroscopic engineering technician has contacted crisis, the pt is [...] 05/17/2019 11:54 PM PSTRT contacted regarding VBG Red, Shalonda Varela RN - 05/17/2019 11: 02 PM PSTMothers name is beto, her number is [id number] signed by Shalonda Ocampo RN at 05/17/2019 11:02 PM Red, Shalonda Varela RN - 2018 11:02 PM PSTDr kvng. M[facility], [employer] at bedside. Red, Shalonda Varela RN - 05/17/2019 11:02 PM PSTInterventions for moplvre-kjyu-lkguxxnu risk patients 1. Initiated suicide precautions and [...] garcía, DO - 05/17/2019 10:42 PM PST [facility] Department of Emergency Medicine 10:42 PM [...] for him and they took him to [facility]. She reports he walked out of [...] file Gets together: Not on file Attends uatsdin service: Not on file Active member of [...] sore throat CV/Resp: Negative for chest pain, sluqblqzw-gk-beyhxl GI: Negative for abdominal pain, nausea, vomiting, [...] like ly not very compliant with management. Flwgc-kx-fvww glucose significant elevated. Will ev aluate for [...] on exam. 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 The patient di d not endorse [...] 20 mg (20 mg Intramuscular Given 05/17/19 2978) sodium chloride 0.9% (NS) bolus 2,000 mL (2,000 mLs Intravenous New Bag 05/17/19 2340) insulin regular (humuLIN R, novoLIN R) injection 10 Units (10 Units Intravenous Given 05/18 0478) sodium chloride 0.9% (NS) bolus 1,000 mL (1,000 mLs Intravenous New Bag 05/18/19 0237) Records Reviewed Old medical records. Nursing notes. Laboratory Evaluation Results Procedure Component Value Ref Range Date/Time Blood gas, Venous [[id number]] (Abnormal) Collected: 05/18/19 0001 Order Status: Completed [...] Abdiel Test not indicated CBC with Differential [[id number]] Collected: 05/17/19 2254 Order Status: Completed Specimen: [...] 0.00 - 0.10 K/uL Comprehensive Metabolic Panel [[id number]] (Abnormal) Collected: 05/17/192253 Order Status: Completed Specimen: [...] U/L Estimated GFR >60 >60 mL/min/1.73m2 Ethanol [[id number]] Collected: 05/17/192253 Order Status: Completed Specimen: Blood Updated: 05/17/192335 ALCOHOL, SERUM/PLASMA <10 <10 mg/dL Salicylate Level [[id number]] Collected: 05/17/192253 Order Status: Completed Specimen: Blood Updated: 05/17/192335 Salicylate, mg/dL <3.0 2.8 - 20.0 mg/dL TSH [[id number]] Collected: 05/17/192253 Order Status: Completed Specimen: Blood Updated: 05/17/192335 TSH 1.314 0.450 - 5.100 uIU/mL Acetaminophen Level [[id number]] (Abnormal) Collected: 05/17/192253 Order Status: Completed Specimen: Blood Updated: 05/17/192335 Acetaminophen, S <2.0 10.0 - 30.0 ug/mL Drugs Of Abuse Screen, Urine (H) [[id number]] (Abnormal) Collected: 05/17/192257 Order Status: Completed Specimen: Urine Updated: 05/17/19 2320 Amp/Methamphetamine, Screen, Urine NEGATIVE NEG Barbiturates Screen, Urine NEGATIVE NEG Benzodiazepines Screen, Urine NEGATIVE NEG Cocaine Metabolites, Ur NEGATIVE NEG Methadone Screen, Urine NEGATIVE NEG Opiates Screen, Urine NEGATIVE NEG Phencyclidine Screen, Urine NEGATIVE NEG Tetrahydrocannabinol(THC) POSITIVE NEG Ketones, Serum [[id number]] Collected: 05/17/192253 Order Status: Completed Specimen: Blood Updated: 05/17/19 2317 Ketones, Blood NEGATIVE NEG POC Glucose [[id number]] (Abnormal) Collected: 05/17/192252 Order Status: Completed Updated: 05/17/192301 Glucose, POC >400 65 - 99 mg/dL [...] encounter Miscellaneous Notes Plan of Care - Elisa Mendez RN - 05/21/2019 3:50 [...] new psych medicationsElectronically signed by ERIKA Mcguire t 05/20/2019 5:16 PM PSTPlan of Jesus - Sylvia Nagy MSW - 05/20/2019 8:27 AM PSTM SW contacted Crisis ([phone]) to update them regarding the incident on [...] refusing insulin drip at this time. aware." Replaced By [facility] [address] [place] [address] Crisis thanked this CM for the information, and states that it will not be difficult to mikala ce pt. MOTOR VEHICLE DISPATCHER requested that pt be prioritized for a [...] Patient refusing insulin drip at this time. aware. Chart review and 24 hour chart check complete. lan of Reji Harris RN - 05/19/2019 5:[facility] [place] [facility]. [facility] have declined pt d/t aggressive [...] current admission plan while awaiting placement by [facility]. Patient expr esses appreciation for CM visit and concern, returned to playing on phone as CM exited room. lan of Jesus Suzan Montes De [place], [facility] - 05/19/2019 1:05 PM PSTAttempted earlier to reach Dr. Castillo for psych consult, Dr. Bee now on, left [facility] requesting telepsych consult. lan of Naeem Forbes MSW - 05/18/2019 4:31 PM PSTLynn [facility]yes [facility] certification. When [...] for this | | CHEM LYNN ROLDAN DOS | | 10:58 PM | | procedure [...] J?MRN: | | | | | | [id number] | | | [id number] | | | riteri | | | [...] | | | St. | | | [place] | | | y | | | [...] | | | St. | | | [place] | | | y | | | [...] | | | St. | | | [place] | | | y | | | Hospit | | | al | | | Patien | | | t is | | | curren | | | tly | | | establ | | | ished | | | with | | | St | | | [place] | | | y | | | [...] St | | | | | | [place] | | | y | | | [...] | | | St. | | | [place] | | | y | | | [...] | | | St. | | | [place] | | | y H. | | [...] | | | St. | | | [place] | | | y H. | | [...] | | | St. | | | [place] | | | y H. | | [...] | | | St. | | | [place] | | | y H. | | [...] | | | St. | | | [place] | | | y H. | | [...] | | | St. | | | [place] | | | y H. | | [...] | | | MD | | | Rn Cardiac | | | al | | | [...] | | | [phone] | | | [id number] | | | 95 | | | [...] Testing | 65 - 99 mg/dL | [facility] | | | POC | performed at [facility];[address] | | LABORATORY | | | | [address];[place], [place] | | | | | | [address] | | | | + + + + + + + + | Specimen | + + | | + + + + + + + | Performing | Address | City/State/Zipcode | Phone Number | | Organization | | | | + + + + + | [facility] | [address] | [place] [address] | [phone] | + + + + + POC Glucose (05/21/2019 5:09 PM PST) + + + + + + | Component | Value | Ref Range | Performed | Pathologist | | | | | At | Signature | + + + + + + | Glucose, | 66Comment: Testing | 65 - 99 mg/dL | [facility] | | | POC | performed at [facility] | | LABORATORY | | | | [address];[place], [place] | | | | | | [address] | | | | + + + + + + + + | Specimen | + + | | + + + + + + + | Performing | Address | City/State/Zipcode | Phone Number | | Organization | | | | + + + + + | [facility] | [address] | [place] [address] | [phone] | + + + + + POC Glucose (05/21/2019 4:51 PM PST) + + + + + + | Component | Value | Ref Range | Performed | Pathologist | | | | | At | Signature | + + + + + + | Glucose, | 66Comment: Testing | 65 - 99 mg/dL | [facility] | | | POC | performed at [facility];[address] | | LABORATORY | | | | [address];[place] | | | | | | [address] | | | | + + + + + + + + | Specimen | + + | | + + + + + + + | Performing | Address | City/State/Zipcode | Phone Number | | Organization | | | | + + + + + | [facility] | [address] | [place] [address] | [phone] | + + + + + POC Glucose (05/21/2019 3:10 PM PST) + + + + + + | Component | Value | Ref Range | Performed | Pathologist | | | | | At | Signature | + + + + + + | Glucose, | 88Comment: Testing | 65 - 99 mg/dL | [facility] | | | POC | performed at [facility];[address] | | LABORATORY | | | | [address];[place], [place] | | | | | | [address] | | | | + + + + + + + + | Specimen | + + | | + + + + + + + | Performing | Address | City/State/Zipcode | Phone Number | | Organization | | | | + + + + + | [facility] | [address] | [place] [address] | [phone] | + + + + + POC [...] | | | POC | performed at [facility];[address] | | LABORATORY | | | | [address];[place], [place] | | | | | | [address] | | | | + + + + + + + + | Specimen | + + | | + + + + + + + | Performing | Address | City/State/Zipcode | Phone Number | | Organization | | | | + + + + + | [facility] | [address] | [place] [address] | [phone] | + + + + + POC Glucose (05/21/2019 11:45 AM PST) + + + + + + | Component | Value | Ref Range | Performed | Pathologist | | | | | At | Signature | + + + + + + | Glucose, | 181 (H)Comment: Testing | 65 - 99 mg/dL | [facility] | | | POC | performed at [facility];[address] | | LABORATORY | | | | [address];[place] | | | | | | [address] | | | | + + + + + + + + | Specimen | + + | | + + + + + + + | Performing | Address | City/State/Zipcode | Phone Number | | Organization | | | | + + + + + | [facility] | [address] | [place] [address] | [phone] | + + + + + Basic [...] | >60Comment: GFR <60: | >60 | [facility] | | | GFR | CHRONIC [...] | | | | | | [facility], | | | | | | [place] [address] | | | | + + + + + + + + | Specimen | + + | Blood | + + + + + + + | Performing | Address | City/State/Zipcode | Phone Number | | Organization | | | | + + + + + | [facility] | [address] | [place] [address] | [phone] | + + + + + POC Glucose (05/21/2019 8:28 AM PST) + + + + + + | Component | Value | Ref Range | Performed | Pathologist | | | | | At | Signature | + + + + + + | Glucose, | 250 (H)Comment: Testing | 65 - 99 mg/dL | [facility] | | | POC | performed at [facility];[address] | | LABORATORY | | | | [address];[place], [place] | | | | | | [address] | | | | + + + + + + + + | Specimen | + + | | + + + + + + + | Performing | Address | City/State/Zipcode | Phone Number | | Organization | | | | + + + + + | [facility] | [address] | [place] [address] | [phone] | + + + + + POC [...] | | | POC | performed at [facility];[address] | | LABORATORY | | | | [address];[place], [place] | | | | | | [address] | | | | + + + + + + + + | Specimen | + + | | + + + + + + + | Performing | Address | City/State/Zipcode | Phone Number | | Organization | | | | + + + + + | [facility] | [address] | [place] [address] | [phone] | + + + + + POC [...] | | | POC | performed at [facility];[address] | | LABORATORY | | | | [address];[place] | | | | | | [address] | | | | + + + + + + + + | Specimen | + + | | + + + + + + + | Performing | Address | City/State/Zipcode | Phone Number | | Organization | | | | + + + + + | [facility] | [address] | [place] [address] | [phone] | + + + + + POC [...] | | | POC | performed at [facility];[address] | | LABORATORY | | | | [address];[place] | | | | | | [address] | | | | + + + + + + + + | Specimen | + + | | + + + + + + + | Performing | Address | City/State/Zipcode | Phone Number | | Organization | | | | + + + + + | [facility] | [address] | [place] [address] | [phone] | + + + + + Potassium (05/20/2019 3:58 PM PST) + + + + + + | Component | Value | Ref Range | Performed | Pathologist | | | | | At | Signature | + + + + + + | K | 4.9Comment: Testing | 3.5 - 4.9 | [facility] | | | | performed at [facility];[address] | mmol/L | LABORATORY | | | | [address];[place], [place] | | | | | | [address] | | | | + + + + + + + + | Specimen | + + | Blood | + + + + + + + | Performing | Address | City/State/Zipcode | Phone Number | | Organization | | | | + + + + + | [facility] | [address] | [place] [address] | [phone] | + + + + + POC Glucose (05/20/2019 11:37 AM PST) + + + + + + | Component | Value | Ref Range | Performed | Pathologist | | | | | At | Signature | + + + + + + | Glucose, | >400 (H)Comment: Testing | 65 - 99 mg/dL | [facility] | | | POC | performed at [facility];[address] | | LABORATORY | | | | [address];[place] | | | | | | [address] | | | | + + + + + + + + | Specimen | + + | | + + + + + + + | Performing | Address | City/State/Zipcode | Phone Number | | Organization | | | | + + + + + | [facility] | [address] | [place] [address] | [phone] | + + + + + Basic [...] | | | | | | [facility], | | | | | | [place] [address] | | | | + + + + + + + + | Specimen | + + | Blood | + + + + + + + | Performing | Address | City/State/Zipcode | Phone Number | | Organization | | | | + + + + + | [facility] | [address] | [place] [address] | [phone] | + + + + + ECG [...] | | | POC | performed at [facility];[address] | | LABORATORY | | | | [address];[place] | | | | | | [address] | | | | + + + + + + + + | Specimen | + + | | + + + + + + + | Performing | Address | City/State/Zipcode | Phone Number | | Organization | | | | + + + + + | [facility] | [address] | [place] [address] | [phone] | + + + + + POC Glucose (05/20/2019 3:23 AM PST) + + + + + + | Component | Value | Ref Range | Performed | Pathologist | | | | | At | Signature | + + + + + + | Glucose, | 232 (H)Comment: Testing | 65 - 99 mg/dL | [facility] | | | POC | performed at [facility];[address] | | LABORATORY | | | | [address];[place], [place] | | | | | | [address] | | | | + + + + + + + + | Specimen | + + | | + + + + + + + | Performing | Address | City/State/Zipcode | Phone Number | | Organization | | | | + + + + + | [facility] | [address] | [place] [address] | [phone] | + + + + + POC [...] | | | POC | performed at [facility];[address] | | LABORATORY | | | | [address] [facility];[place], [place] | | | | | | [address] | | | | + + + + + + + + | Specimen | + + | | + + + + + + + | Performing | Address | City/State/Zipcode | Phone Number | | Organization | | | | + + + + + | [facility] | [address] | [place] [address] | [phone] | + + + + + POC Glucose (05/20/2019 1:22 AM PST) + + + + + + | Component | Value | Ref Range | Performed | Pathologist | | | | | At | Signature | + + + + + + | Glucose, | 248 (H)Comment: Testing | 65 - 99 mg/dL | [facility] | | | POC | performed at [facility];[address] | | LABORATORY | | | | [address];[place] | | | | | | [address] | | | | + + + + + + + + | Specimen | + + | | + + + + + + + | Performing | Address | City/State/Zipcode | Phone Number | | Organization | | | | + + + + + | [facility] | [address] | [place] [address] | [phone] | + + + + + POC Glucose (05/20/2019 12:23 AM PST) + + + + + + | Component | Value | Ref Range | Performed | Pathologist | | | | | At | Signature | + + + + + + | Glucose, | 186 (H)Comment: Testing | 65 - 99 mg/dL | [facility] | | | POC | performed at [facility];[address] | | LABORATORY | | | | [address];[place] | | | | | | [address] | | | | + + + + + + + + | Specimen | + + | | + + + + + + + | Performing | Address | City/State/Zipcode | Phone Number | | Organization | | | | + + + + + | [facility] | [address] | [place] [address] | [phone] | + + + + + POC [...] | | | POC | performed at [facility];[address] | | LABORATORY | | | | [address];[place] | | | | | | [address] | | | | + + + + + + + + | Specimen | + + | | + + + + + + + | Performing | Address | City/State/Zipcode | Phone Number | | Organization | | | | + + + + + | [facility] | [address] | [place] [address] | [phone] | + + + + + POC [...] | | | POC | performed at [facility] | | LABORATORY | | | | [address];[place] | | | | | | [address] | | | | + + + + + + + + | Specimen | + + | | + + + + + + + | Performing | Address | City/State/Zipcode | Phone Number | | Organization | | | | + + + + + | [facility] | [address] | [place] [address] | [phone] | + + + + + POC [...] | | | POC | performed at [facility] | | LABORATORY | | | | [address];[place] | | | | | | [address] | | | | + + + + + + + + | Specimen | + + | | + + + + + + + | Performing | Address | City/State/Zipcode | Phone Number | | Organization | | | | + + + + + | [facility] | [address] | [place] [address] | [phone] | + + + + + POC Glucose (05/19/2019 9:22 PM PST) + + + + + + | Component | Value | Ref Range | Performed | Pathologist | | | | | At | Signature | + + + + + + | Glucose, | 378 (H)Comment: Testing | 65 - 99 mg/dL | [facility] | | | POC | performed at [facility];[address] | | LABORATORY | | | | [address];[place] | | | | | | [address] | | | | + + + + + + + + | Specimen | + + | | + + + + + + + | Performing | Address | City/State/Zipcode | Phone Number | | Organization | | | | + + + + + | [facility] | [address] | [place] [address] | [phone] | + + + + + POC Glucose (05/19/2019 9:06 PM PST) + + + + + + | Component | Value | Ref Range | Performed | Pathologist | | | | | At | Signature | + + + + + + | Glucose, | 54 (L)Comment: Testing | 65 - 99 mg/dL | [facility] | | | POC | performed at [facility] | | LABORATORY | | | | [address];[place] | | | | | | [address] | | | | + + + + + + + + | Specimen | + + | | + + + + + + + | Performing | Address | City/State/Zipcode | Phone Number | | Organization | | | | + + + + + | [facility] | [address] | [place] [address] | [phone] | + + + + + POC [...] | | | POC | performed at [facility];[address] | | LABORATORY | | | | [address];[place], [place] | | | | | | [address] | | | | + + + + + + + + | Specimen | + + | | + + + + + + + | Performing | Address | City/State/Zipcode | Phone Number | | Organization | | | | + + + + + | [facility] | [address] | [place] [address] | [phone] | + + + + + POC Glucose (05/19/2019 7:43 PM PST) + + + + + + | Component | Value | Ref Range | Performed | Pathologist | | | | | At | Signature | + + + + + + | Glucose, | 322 (H)Comment: Testing | 65 - 99 mg/dL | [facility] | | | POC | performed at [facility];[address] | | LABORATORY | | | | [address];[place] | | | | | | [address] | | | | + + + + + + + + | Specimen | + + | | + + + + + + + | Performing | Address | City/State/Zipcode | Phone Number | | Organization | | | | + + + + + | [facility] | [address] | [place] [address] | [phone] | + + + + + Glucose, Random (05/19/2019 5:51 PM PST) + + + + + + | Component | Value | Ref Range | Performed | Pathologist | | | | | At | Signature | + + + + + + | Glucose | 421 (H)Comment: Testing | 65 - 99 mg/dL | [facility] | | | | performed at [facility];[address] | | LABORATORY | | | | [address];[place] | | | | | | [address] | | | | + + + + + + + + | Specimen | + + | Blood | + + + + + + + | Performing | Address | City/State/Zipcode | Phone Number | | Organization | | | | + + + + + | [facility] | [address] | [place] [address] | [phone] | + + + + + POC [...] | | | POC | performed at [facility];[address] | | LABORATORY | | | | [address];[place], [place] | | | | | | [address] | | | | + + + + + + + + | Specimen | + + | | + + + + + + + | Performing | Address | City/State/Zipcode | Phone Number | | Organization | | | | + + + + + | [facility] | [address] | [place] [address] | [phone] | + + + + + Hemoglobin A1C (05/19/2019 3:06 PM PST) + + + + + + | Component | Value | Ref Range | Performed | Pathologist | | | | | At | Signature | + + + + + + | Hemoglobin | 10.2 (H)Comment: HbA1c | 4.0 - 6.0 % | [facility] | | | A1c | method [...] | 246 (H)Comment: | <154 mg/dL | [facility] | | | Average | Estimated [...] W | | | | | | [facility], | | | | | | [place] [address] | | | | + + + + + + + + | Specimen | + + | Blood | + + + + + + + | Performing | Address | City/State/Zipcode | Phone Number | | Organization | | | | + + + + + | [facility] | [address] | [place] [address] | [phone] | + + + + + Glucose, Random (05/19/2019 3:06 PM PST) + + + + + + | Component | Value | Ref Range | Performed | Pathologist | | | | | At | Signature | + + + + + + | Glucose | 520 ()Comment: CALLED | 65 - 99 mg/dL | [facility] | | | | RESULTSREAD BACK RESULTS | | LABORATORY | | | | VERIFIEDBOOM/CONSUELO Cervantes | | | | | | AT [address] | | | | | | performed at [facility];[address] | | | | | [address];[place], [place] | | | | | | [address] | | | | + + + + + + + + | Specimen | + + | Blood | + + + + + + + | Performing | Address | City/State/Zipcode | Phone Number | | Organization | | | | + + + + + | [facility] | [address] | [place] [address] | [phone] | + + + + + POC Glucose (05/19/2019 2:42 PM PST) + + + + + + | Component | Value | Ref Range | Performed | Pathologist | | | | | At | Signature | + + + + + + | Glucose, | >400 (H)Comment: Testing | 65 - 99 mg/dL | [facility] | | | POC | performed at [facility];[address] | | LABORATORY | | | | [address];[place], [place] | | | | | | [address] | | | | + + + + + + + + | Specimen | + + | | + + + + + + + | Performing | Address | City/State/Zipcode | Phone Number | | Organization | | | | + + + + + | [facility] | [address] | [place] [address] | [phone] | + + + + + POC [...] | | | POC | performed at [facility];[address] | | LABORATORY | | | | [address];[place], [place] | | | | | | [address] | | | | + + + + + + + + | Specimen | + + | | + + + + + + + | Performing | Address | City/State/Zipcode | Phone Number | | Organization | | | | + + + + + | [facility] | [address] | [place] [address] | [phone] | + + + + + Basic [...] | >60Comment: GFR <60: | >60 | [facility] | | | GFR | CHRONIC [...] | | | | | performed at [facility] | | | | | | [facility];[place], [place] | | | | | | [address] | | | | + + + + + + + + | Specimen | + + | Blood | + + + + + + + | Performing | Address | City/State/Zipcode | Phone Number | | Organization | | | | + + + + + | [facility] | [address] | [place] [address] | [phone] | + + + + + POC [...] | | | POC | performed at [facility];[address] | | LABORATORY | | | | [address];[place] | | | | | | [address] | | | | + + + + + + + + | Specimen | + + | | + + + + + + + | Performing | Address | City/State/Zipcode | Phone Number | | Organization | | | | + + + + + | [facility] | [address] | [place] [address] | [phone] | + + + + + POC [...] | | | POC | performed at [facility];[address] | | LABORATORY | | | | [address];[place] | | | | | | [address] | | | | + + + + + + + + | Specimen | + + | | + + + + + + + | Performing | Address | City/State/Zipcode | Phone Number | | Organization | | | | + + + + + | [facility] | [address] | [place] [address] | [phone] | + + + + + Basic [...] | | | | | performed at [facility];[address] | | | | | | [address];[place] | | | | | | [address] | | | | + + + + + + + + | Specimen | + + | Blood | + + + + + + + | Performing | Address | City/State/Zipcode | Phone Number | | Organization | | | | + + + + + | [facility] | [address] | [place] [address] | [phone] | + + + + + POC [...] | | | POC | performed at [facility];[address] | | LABORATORY | | | | [address];[place] | | | | | | [address] | | | | + + + + + + + + | Specimen | + + | | + + + + + + + | Performing | Address | City/State/Zipcode | Phone Number | | Organization | | | | + + + + + | [facility] | [address] | [place] [address] | [phone] | + + + + + POC Glucose (05/18/2019 8:19 PM PST) + + + + + + | Component | Value | Ref Range | Performed | Pathologist | | | | | At | Signature | + + + + + + | Glucose, | >400 (H)Comment: Testing | 65 - 99 mg/dL | [facility] | | | POC | performed at [facility];[address] | | LABORATORY | | | | [address];[place] | | | | | | [address] | | | | + + + + + + + + | Specimen | + + | | + + + + + + + | Performing | Address | City/State/Zipcode | Phone Number | | Organization | | | | + + + + + | [facility] | [address] | [place] [address] | [phone] | + + + + + Basic [...] | 8.7 | 8.5 - 10.5 | [facility] | | | | | mg/dL | LABORATORY | | + + + + + + | Estimated | >60Comment: GFR <60: | >60 | [facility] | | | GFR | CHRONIC [...] | | | | | | [facility] traceable | | | | | | equation.Testing | | | | | | performed at [facility];[address] | | | | | | [facility];[place], [place] | | | | | | [address] | | | | + + + + + + + + | Specimen | + + | Blood | + + + + + + + | Performing | Address | City/State/Zipcode | Phone Number | | Organization | | | | + + + + + | [facility] | [address] | [place] [address] | [phone] | + + + + + POC [...] | | | POC | performed at [facility];[address] | | LABORATORY | | | | [address];[place] | | | | | | [address] | | | | + + + + + + + + | Specimen | + + | | + + + + + + + | Performing | Address | City/State/Zipcode | Phone Number | | Organization | | | | + + + + + | [facility] | [address] [facility] | [place] [address] | [phone] | + + + + + POC [...] | | | POC | performed at [facility];[address] | | LABORATORY | | | | [address];[place], [place] | | | | | | [address] | | | | + + + + + + + + | Specimen | + + | | + + + + + + + | Performing | Address | City/State/Zipcode | Phone Number | | Organization | | | | + + + + + | [facility] | [address] | [place] [address] | [phone] | + + + + + POC Glucose (05/18/2019 12:22 PM PST) + + + + + + | Component | Value | Ref Range | Performed | Pathologist | | | | | At | Signature | + + + + + + | Glucose, | >400 (H)Comment: Testing | 65 - 99 mg/dL | [facility] | | | POC | performed at [facility];[address] | | LABORATORY | | | | [address];[place] | | | | | | [address] | | | | + + + + + + + + | Specimen | + + | | + + + + + + + | Performing | Address | City/State/Zipcode | Phone Number | | Organization | | | | + + + + + | [facility] | [address] | [place] [address] | [phone] | + + + + + POC Glucose (05/18/2019 9:28 AM PST) + + + + + + | Component | Value | Ref Range | Performed | Pathologist | | | | | At | Signature | + + + + + + | Glucose, | 111 (H)Comment: Testing | 65 - 99 mg/dL | [facility] | | | POC | performed at [facility];[address] | | LABORATORY | | | | [address];[place] | | | | | | [address] | | | | + + + + + + + + | Specimen | + + | | + + + + + + + | Performing | Address | City/State/Zipcode | Phone Number | | Organization | | | | + + + + + | [facility] | [address] | [place] [address] | [phone] | + + + + + POC [...] | | | POC | performed at [facility];[address] | | LABORATORY | | | | [address];[place], [place] | | | | | | [address] | | | | + + + + + + + + | Specimen | + + | | + + + + + + + | Performing | Address | City/State/Zipcode | Phone Number | | Organization | | | | + + + + + | [facility] | [address] | [place] [address] | [phone] | + + + + + POC [...] | | | POC | performed at [facility];[address] | | LABORATORY | | | | [address];[place] | | | | | | [address] | | | | + + + + + + + + | Specimen | + + | | + + + + + + + | Performing | Address | City/State/Zipcode | Phone Number | | Organization | | | | + + + + + | [facility] | [address] | [place] [address] | [phone] | + + + + + POC Glucose (05/18/2019 1:36 AM PST) + + + + + + | Component | Value | Ref Range | Performed | Pathologist | | | | | At | Signature | + + + + + + | Glucose, | 319 (H)Comment: Testing | 65 - 99 mg/dL | [facility] | | | POC | performed at [facility];[address] | | LABORATORY | | | | [address];[place], [place] | | | | | | [address] | | | | + + + + + + + + | Specimen | + + | | + + + + + + + | Performing | Address | City/State/Zipcode | Phone Number | | Organization | | | | + + + + + | [facility] | [address] | [place] [address] | [phone] | + + + + + Blood [...] at | | | | | | [facility];[address] | | [address];[place] [address] | | | | + + + + + + + + | Specimen | + + | | + + + + + + + | Performing | Address | City/State/Zipcode | Phone Number | | Organization | | | | + + + + + | [facility] | [address] | [place] [address] | [phone] | + + + + + Drugs [...] Tetrahydroc | POSITIVE (A)Comment: | NEG | [facility] | | | annabinol(T | Positive cutoff [...] | | | | | performed at [facility] | | | | | | [facility];[place], [place] | | | | | | [address] | | | | + + + + + + + + | Specimen | + + | Urine | + + + + + + + | Performing | Address | City/State/Zipcode | Phone Number | | Organization | | | | + + + + + | [facility] | [address] | [place] [address] | [phone] | + + + + + Ketones, Serum (05/17/2019 10:54 PM PST) + + + + + + | Component | Value | Ref Range | Performed | Pathologist | | | | | At | Signature | + + + + + + | Ketones, | NEGATIVEComment: Testing | NEG | [facility] | | | Blood | performed at [facility];[address] | | LABORATORY | | | | [address];[place] | | | | | | [address] | | | | + + + + + + + + | Specimen | + + | Blood | + + + + + + + | Performing | Address | City/State/Zipcode | Phone Number | | Organization | | | | + + + + + | [facility] | [address] | [place] [address] | [phone] | + + + + + TSH (05/17/2019 10:54 PM PST) + + + + + + | Component | Value | Ref Range | Performed | Pathologist | | | | | At | Signature | + + + + + + | TSH | 1.314Comment: Testing | 0.450 - 5.100 | [facility] | | | | performed at [facility];[address] | uIU/mL | LABORATORY | | | | [address];[place], [place] | | | | | | [address] | | | | + + + + + + + + | Specimen | + + | Blood | + + + + + + + | Performing | Address | City/State/Zipcode | Phone Number | | Organization | | | | + + + + + | [facility] | [address] | [place] [address] | [phone] | + + + + + Salicylate Level (05/17/2019 10:54 PM PST) + + + + + + | Component | Value | Ref Range | Performed | Pathologist | | | | | At | Signature | + + + + + + | Salicylate, | <3.0Comment: Testing | 2.8 - 20.0 | [facility] | | | mg/dL | performed at [facility];[address] | mg/dL | LABORATORY | | | | [address];[place], [place] | | | | | | [address] | | | | + + + + + + + + | Specimen | + + | Blood | + + + + + + + | Performing | Address | City/State/Zipcode | Phone Number | | Organization | | | | + + + + + | [facility] | [address] | [place] [address] | [phone] | + + + + + Acetaminophen [...] | | en, S | performed at [facility];[address] | ug/mL | LABORATORY | | | | [address];[place], [place] | | | | | | [address] | | | | + + + + + + + + | Specimen | + + | Blood | + + + + + + + | Performing | Address | City/State/Zipcode | Phone Number | | Organization | | | | + + + + + | [facility] | [address] | [place] [address] | [phone] | + + + + + Ethanol (05/17/2019 10:54 PM PST) + + + + + + | Component | Value | Ref Range | Performed | Pathologist | | | | | At | Signature | + + + + + + | ALCOHOL, | <10Comment: Testing | <10 mg/dL | [facility] | | | SERUM/PLASM | performed at [facility] | | LABORATORY | | | A | [address];[place] | | | | | | [address] | | | | + + + + + + + + | Specimen | + + | Blood | + + + + + + + | Performing | Address | City/State/Zipcode | Phone Number | | Organization | | | | + + + + + | [facility] | [address] | [place] [address] | [phone] | + + + + + Comprehensive [...] | | | | | performed at [facility];[address] | | | | | | [address];[place], [place] | | | | | | [address] | | | | + + + + + + + + | Specimen | + + | Blood | + + + + + + + | Performing | Address | City/State/Zipcode | Phone Number | | Organization | | | | + + + + + | [facility] | [address] | [place] [address] | [phone] | + + + + + CBC [...] | | | Absolute | performed at [facility];[address] | K/uL | LABORATORY | | | | [address];[place], [place] | | | | | | [address] | | | | + + + + + + + + | Specimen | + + | Blood | + + + + + + + | Performing | Address | City/State/Zipcode | Phone Number | | Organization | | | | + + + + + | [facility] | [address] | [place] [address] | [phone] | + + + + + POC Glucose (05/17/2019 10:53 PM PST) + + + + + + | Component | Value | Ref Range | Performed | Pathologist | | | | | At | Signature | + + + + + + | Glucose, | >400 (H)Comment: Testing | 65 - 99 mg/dL | [facility] | | | POC | performed at [facility];[address] | | LABORATORY | | | | [address];[place] | | | | | | [address] | | | | + + + + + + + + | Specimen | + + | | + + + + + + + | Performing | Address | City/State/Zipcode | Phone Number | | Organization | | | | + + + + + | [facility] | [address] | [place] [address] | [phone] | + + + + + documented [...] | | | | First dose on [facility] 05/20/19 at | | | | | [...] | | | | | | | 8774-5593 Use NIGHT DOSE for | | | | | | | doses scheduled: HS, 3AM, | | | | | | | Nighttime 4841-2047 If the BG is | | | [...] | | | | | | | 3408-9361 Use NIGHT DOSE for | | | | | | | doses scheduled: HS, 3AM, | | | | | | | Nighttime 3164-8368 If the BG is | | | [...] | | | | | | | 1816-8962 Use NIGHT DOSE for | | | | | | | doses scheduled: HS, 3AM, | | | | | | | Nighttime 0911-9552 If the BG is | | | [...] PST | | | | | ONCE, Tujeri 05/18/19 at 0150, For 1 | | [...]
--- OUTSIDE RECORDS SUMMARY | ~2020-02-12 | XMS | Encounter Summary ---
Demographics + + + | Address | [address] | | | [place] [address] | + + + | Home Phone [...] Team Providers + +------+ + | Care Quarter Inspector Name | Role | Phone | + +------+ + PCP | Unavailable | + +------+ + Encounter Details +--------+ + + + + | Date | Type | Department | Care Team | Description | +--------+ + + + + | 04/07/ | Hospital | [facility] | Ami Young | | | 2008 | Encounter | CONVERSION | A, [facility] [address] | | | | | [address] | [address] [place] [place] | [address] | [address] | [address] | | | | | [place], [place] | [phone] | | | | | [address] | | | | | | [phone] | | | +--------+ + + + [...]
--- OUTSIDE RECORDS SUMMARY | ~2020-02-12 | XMS | Encounter Summary ---
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 [facility] Joni Kwon Emergency Department Encounter Note [address] [place] [address] PCP:Shavon Covington, DENIS x2500 CHIEF COMPLAINT: Chief [...] high today. Homeless and staying at the longterm. He reports a slight cough. He says [...] He reports prior psychiatric evaluations in the [place] and [place] areas and they did not feel he [...] distress. Thin. Points to his lateral and historical interpreter ior right lower chest the site of [...] were reviewed along with EMS notes and shelter record s if applicable. (See chart for [...] o follow-up with his regular provider in [place] until he can get established locally. Hi [...] Nurse Practitioner Why: For re-check Contact information: [address], [facility] [address] [place] [address] Discharge Instructions Get glucometer and resume checking your glucose at least twice daily. Increase oral fluids when sugar is high Portions of this chart may have been created with [place] voice recognition software. Occasi onal wrong-word or [...] J?MRN: | | | | | | [id number] | | | [id number] | | | his | | | [...] | | | St. | | | [place] | | | y | | | [...] | | | St. | | | [place] | | | y H. | | [...] | | | St. | | | [place] | | | y H. | | [...] | | | St. | | | [place] | | | y H. | | [...] | | | St. | | | [place] | | | y H. | | [...] | | | St. | | | [place] | | | y H. | | [...] | | | St. | | | [place] | | | y | | | [...] | | | ext. | | | [address] | | | or go | | [...] | | | [place] | | | [facility], | | | [place] - | | [...] [address] | [place] | [phone] | | [facility] | | [address] | | | - LABORATORY | | [...] 5 | 3 - 16 mmol/L | [facility] | | | | | [...] mL/min/1.73m2 | [facility] | | | Scottish | RATE,ESTIMATED | | MEDICAL | | | | mL/min/1.44q1Qvyo than | | CENTER - | | [...] [address] | [place] | [phone] | | [facility] | | [address] | | | - LABORATORY | | [...] | | | | | [place] ([id number]) on | | | | | | [...] [address] | [place] | [phone] | | [facility] | | [address] | | | - LABORATORY | | [...] | Top Tube | | | [facility] | | | | | [...] [address] | [place] | [phone] | | [facility] | | [address] | | | - LABORATORY | | [...] [address] | [place] | [phone] | | [facility] | | [address] | | | - LABORATORY | | [...] + | [facility] | [address] | [place] | [phone] | | [facility] | | [address] | | | - LABORATORY | | [...] mL/min/1.73m2 | [facility] | | | Scottish | RATE,ESTIMATED | | MEDICAL | | | | mL/min/1.79e6Sykv than | | CENTER - | | [...] 3.5 | 3.2 - 5.0 g/dL | [facility] | | | | | | LYNN [...] + | [facility] | [address] | [place] | [phone] | | [facility] | | [address] | | | - LABORATORY | | [...] [address] | [place] | [phone] | | [facility] | | [address] | | | - LABORATORY | | [...] [address] | [place] | [phone] | | [facility] | | [address] | | | - LABORATORY | | [...]
--- OUTSIDE RECORDS SUMMARY | ~2020-02-12 | XMS | Encounter Summary ---
Demographics + + + | Address | [address] | | | [place] [address] | + + + | Home Phone [...] Team Providers + +------+ + | Care Hvac Manager Name | Role | Phone | [...] | | | | | | ([facility]LY [facility]) | | | +--------+--------+ + + + + Encounter Details +--------+ + + + + | Date | Type | Department | Care Team | Description | +--------+ + + + + | 05/01/ | Hospital | [facility] | Venkatesh Gomez, | Diabetic | | 2017 - | Encounter | MED CTR SURGICAL | [address] | ketoacidosis without | | | | [address] [place] | [facility] [place] | coma associated | | 05/03/ | | [place] [address] | [place] [address] | with type 1 diabetes | | 2017 | | [phone] | [phone] | mellitus (HCC) | | | | | | (Primary Dx) | | | | | Juanjose Ross MD | | | | | | [address] | | | | | | [place], [place] | | | | | | [address] | | | | | | | | | | | | Kevin Gifford MD | | | | | | [address] | | | | | | [place], [place] | | | | | | [address] | | | | | | | [...] might be different fro m the original. [place], [place] HOSPITALIST DISCHARGE SUMMARY Pt. Name/Age/: Joni [...] insurance coverage and uses [facility] has hadyee garcia living at [facility] past month and not have his [...] here (at least 50 needles) LIves at [facility] Most recent weight: Input and output [...] signed by: Kevin Gifford MD, 05/03/2017 11:48 [facility] Reference. This is NOT part of the [...] this chart may have been created with Ch[place] voice recognition software. Occasi onal wrong-word or [...] cannot be sent through Care Everywhere.Diabetes, Diet (Filipino)Diabetes, General Information (Filipino)Diabetes, Healthy Meals for (Filipino)Diabete s, Meal Planning (Filipino)Diabetes: Shopping for and Preparing Meals (Filipino)documented in this encounter Medications at Time of [...] might be different fro m the original. [place], [place] HOSPITALIST PROGRESS NOTE Patient: Joni Kwon : 1980: Age: 36 y.o. MedRec: [id number] PCP: DENIS Paul Admission date: 05/01/2017 Hospital [...] mg 2 mg Oral Q1H PRN Juanjose Rsos MD 2 mg a t 05/03/17 1033 [...] for input(s): IRON, TIBC, PCTSAT, FERRITIN, TSH, [id number], FOLATE in the last 168 hours. Inflammatory [...] 57.1* HCO3 21.8 TCO2 22.9 BEART -3.0* [id number] 89* Drug of overdose and abuse Recent [...] Procedure Component Value Units Date/Time Culture, MRSA [[id number]] Collected: 05/02/17 0202 Order Status: Completed Lab [...] NPH bridge this morning, he admits was runduglas g out of needles used lesser dose Lantus says has insurance coverage and uses [facility] has b een living at [facility] past month and not have his [...] here (at least 50 needles) LIves at [facility] (dot meyaddendum tdnorefesh nownorefresh) (dot meytime meycritical meysign) Kevin Gifford MD 05/03/2017 11:27 [facility] Reference. This is NOT part [...] this chart may have been created with Chute voice recognition software. Occasi onal wrong-word or sound-alike substitutions may have occurred due to the inherent renee itations of voice recognition software. Please read the chart carefully and recognize, using context, where these substitutions have occurred [facility] Cody Young [facility] - 05/02/2017 4:32 PM PST PHARMACY SERVICES: [...] directions X Pharmacy list names: [facility] [place] X Care Everywhere X Outside Information Vaccines [...] Prior to Admission Sig: Patient taking differently INFORMATICS APPLICATION ANALYST as: Insulin Lispro 100 units/mL inj 5 units under the skin three times daily -Unable to verify sliding scale 3 units under the skin three times daily -Patient has no fill history within t he last 4 months Medication review performed and electronically signed by Lawanda Owen, Spinning Machine Tender 16:19 Electronically signed by: Cody Lawler RPH 05/02/2017 16:31 Kevin Colon MD - 05/02/2017 6:47 AM PST [facility] [place] HOSPITALIST PROGRESS NOTE Patient: Joni Kwon : 1980: Age: 36 y.o. MedRec: [id number] PCP: DENIS Paul Admission date: 05/01/2017 Hospital [...] Data Hematology and anemia Recent Labs Lab 1135405/01/[id number] WBC 7.3 5.3 HGB 13.4* 15.4 HCT 36.3* 44.8 PLT 230 259 NEUPCT -- 63.3 MONPCT -- 9.6 No results for input(s): PROTIME, INR, PTT in the last 168 hours. No results for input(s): IRON, TIBC, PCTSAT, FERRITIN, TSH, [id number], FOLATE in the last 168 hours. Inflammatory [...] 57.1* HCO3 21.8 TCO2 22.9 BEART -3.0* [id number] 89* Drug of overdose and abuse Recent [...] Procedure Component Value Units Date/Time Culture, MRSA [[id number]] Collected: 05/02/17201 Order Status: Sent Lab Status: [...] coverage and uses [facility] has haydee aydintyler living at [facility] past month and not have his [...] his pens uses [facility] LIves at [facility] (dot meyaddendum tdnorefesh nownorefresh) (dot meytime meycritical meysign) Kevin Gifford MD 05/02/2017 6:48 [facility] Reference. This is NOT part [...] this chart may have been created with Chute voice recognition software. Occasi onal wrong-word or sound-alike substitutions may have occurred due to the inherent renee itations of voice recognition software. Please read the chart carefully and recognize, using context, where these substitutions have occurred documented in this en counter H&P Notes Juanjose Ross MD - 05/02/2017 1:06 AM PST [facility] HISTORY AND PHYSICAL Pt. [...] signed by: Juanjose Ross MD 05/02/2017 2:07 [facility] documented in this enc ounter Consult Notes [...] he is homeless and staying at the [facility] somet imes his meals are unpredictable. [...] might be different f rom the original. [facility] Joni Brown Doyle Emergency Department Encounter Note [address] [place] [address] PCP:Shavon Covington, TRAVEL ACCOMMODATIONS RATER x2500 CHIEF COMPLAINT Chief Complaint Patient presents [...] mellitus (HCC) Type 1 diabetes Schizophrenia ([facility]) SURGICAL HISTORY Past Surgical History: Procedure Laterality [...] teaching. Pt he is going back to [facility] today, mother is planning to c ome pick him up shortly. IV removed. Pt has all paperwork. Will continue to monitor. Call [facility] within reach. lan of Care - [...] Pt using call light. Bed alarm in [facility] ce for safety. Call light within reach. Will continue to monitor. eICU Note - Elmira Metcalf RN - 05/02/2017 3:20 PM PSTPatient transferred to room 318. Report given to Hanny JAMES. lan of [facility] - Shawna, Kavita Cervantes RN - 05/02/2017 12:28 PM PSTProblem: Discharge Planning Goal: Patient will be discharged in a safe manner Outcome: Improving This CM met with patient to discuss his d/c plan. He has been staying at the [facility] for about 1/2 month and is [...] Diallo, at the walk in clinic in [place], and that it has been 2 months ago that he has seen her. He does not wish this CM to make an appt sin e he is not sure when he could get there. He is working with [employer] in [place] to find housing. Assisted him to leave a message t here with his payee, Lauren Damonacruz, at [employer], p# [phone]. He also requested that t his CM contact his mother to let her know that he is here and that he wishes to talk with he r. Called [phone], and spoke with Ms Kwon, and let her know that Kamari was here and she wanted to know what room he was in, so will either call or come and visit him today. Called Ursula, Passenger Locomotive Engineer, and she brought up some pen tips [...] Patricia Matos RN 2016 12:28 lan of [facility] - Dayo Negron RRT - 05/02/2017 11:54 [...] J?MRN: | | | | | | [id number] | | | [id number] | | | his | | | [...] | | | St. | | | [place] | | | y | | | [...] | | | St. | | | [place] | | | y | | | [...] | | | St. | | | [place] | | | y H. | | [...] | | | St. | | | [place] | | | y H. | | [...] | | | St. | | | [place] | | | y H. | | [...] | | | St. | | | [place] | | | y H. | | [...] | | | St. | | | [place] | | | y H. | | [...] | | | St. | | | [place] | | | y | | | [...] | | | ext. | | | [address] | | | or go | | [...] [address] | [place] | [phone] | | [facility] | | [address] | | | - LABORATORY | | [...] + | [facility] | [address] | [place] | [phone] | | [facility] | | [address] | | | - LABORATORY | | [...] mL/min/1.73m2 | [facility] | | | Iranian | RATE,ESTIMATED | | MEDICAL | | | | mL/min/1.71k4Smwi than | | CENTER - | | [...] [address] | [place] | [phone] | | [facility] | | [address] | | | - LABORATORY | | [...] + | [facility] | [address] | [place] | [phone] | | [facility] | | [address] | | | - LABORATORY | | [...] | | POC | | | Paula LYNN | | [...] + | [facility] | [address] | [place] | [phone] | | [facility] | | [address] | | | - LABORATORY | | [...] ST. | [address] | [place], [place] | [phone] | | [facility] | | [address] | | | - LABORATORY | | [...] [address] | [place] | [phone] | | [facility] | | [address] | | | - LABORATORY | | [...] + | [facility] | [address] | [place] | [phone] | | [facility] | | [address] | | | - LABORATORY | | [...] + | [facility] | [address] | [place] | [phone] | | [facility] | | [address] | | | - LABORATORY | | [...] + | [facility] | [address] | [place] | [phone] | | [facility] | | [address] | | | - LABORATORY | | [...] mL/min/1.73m2 | [facility] | | | Iranian | RATE,ESTIMATED | | MEDICAL | | | | mL/min/1.69u4Ivxu than | | CENTER - | | [...] [address] | [place] | [phone] | | [facility] | | [address] | | | - LABORATORY | | [...] [address] | [place] | [phone] | | [facility] | | [address] | | | - LABORATORY | | [...] + | [facility] | [address] | [place] | [phone] | | [facility] | | [address] | | | - LABORATORY | | [...] [address] | [place] | [phone] | | [facility] | | [address] | | | - LABORATORY | | [...] [address] | [place] | [phone] | | [facility] | | [address] | | | - LABORATORY | | [...] 1.08 | 0.60 - 1.30 | [facility] | | | | | mg/dL | [facility] | | | | | | MEDICAL | | | | | | CENTER - | | | | | | LABORATORY | | + + + + + + | eGFR, | >60Comment: GLOMERULAR | >=60 | [facility] | | | non- | FILTRATION | mL/min/1.73m2 | LYNN | | | Iranian | RATE,ESTIMATED | | MEDICAL | | | | mL/min/1.97b7Yapx than | | CENTER - | | [...] [address] | [place] | [phone] | | [facility] | | [address] | | | - LABORATORY | | [...] [address] | [place] | [phone] | | [facility] | | [address] | | | - LABORATORY | | [...] [address] | [place] | [phone] | | [facility] | | [address] | | | - [...] [address] | [place] | [phone] | | [facility] | | [address] | | | - LABORATORY | | [...] | Urine | | Yellow, Straw | YLNN | | | | | | MEDICAL | | | | | | CENTER - | | | | | | LABORATORY | | + + + + + + | Clarity, | Clear | Clear | [facility] | | | Urine | | | LYNN | | | [...] - 1.030 | [facility] | | | [place], | | | [facility] | | [...] [address] | [place] | [phone] | | [facility] | | [address] | | | - LABORATORY | | [...] | | | | mmHg | [facility] LYNN | | | | [...] + | [facility] | [address] | [place] | [phone] | | [facility] | | [address] | | | - LABORATORY | | [...] + | [facility] | [address] | [place] | [phone] | | [facility] | | [address] | | | - LABORATORY | | [...] [address] | [place] | [phone] | | [facility] | | [address] | | | - LABORATORY | | [...] [address] | [place] | [phone] | | [facility] | | [address] | | | - LABORATORY | | [...] | | | | | | . LYNN | | | | [...] | 1.25 | 0.60 - 1.30 | [facility] | | | | | mg/dL | [facility] | | | | | | MEDICAL | | | | | | CENTER - | | | | | | LABORATORY | | + + + + + + | eGFR, | >60Comment: GLOMERULAR | >=60 | [facility] | | | non- | FILTRATION | mL/min/1.73m2 | LYNN | | | Iranian | RATE,ESTIMATED | | MEDICAL | | | | mL/min/1.48p4Kvod than | | CENTER - | | [...] [address] | [place] | [phone] | | [facility] | | [address] | | | - LABORATORY | | [...] [address] | [place] | [phone] | | [facility] | | [address] | | | - LABORATORY | | [...] [address] | [place] | [phone] | | [facility] | | [address] | | | - LABORATORY | | [...] | | | | | | | 9863-0353 Use NIGHT DOSE for | | | | | | | doses scheduled: HS, 3AM, | | | | | | | Nighttime 0646-9383, | | | | | | + [...] | | | | | | | 6714-4947 Use NIGHT DOSE for | | | | | | | doses scheduled: HS, 3AM, | | | | | | | Nighttime 8775-7199, | | | | | | + [...] | | | | | NPO, Daytime 9290-6504 Use NIGHT | | | | | | | DOSE for doses scheduled: | | | | | | | HS, 3AM, Nighttime 3481-9046, | | | | | | + [...] PST | | | | | Starting [facility] 05/01/17 at 2254, For | | | [...]
--- OUTSIDE RECORDS SUMMARY | ~2020-02-12 | XMS | Encounter Summary ---
Demographics + + + | Address | [address] | | | [place] [address] | + + + | Home Phone [...] Team Providers + +------+ + | Care Dragline Engineer Name | Role | Phone | [...] Provider Unknown | | | | | [place], [place] | | | | | | [address] | (Fax) | | | | | [phone] | | | +--------+ + + + [...] Procedure Note | + + | Siddhartha, Foreign Yogi - 02/04/2019 7:45 PM PDT This is a non-reportable procedure | | without a radiologist report and isused for image storage only | + + documented in this encounter Visit Diagnoses + + | Diagnosis | + + | Unknown cause of injury Unspecified accident | + + documented in this encounter"
--- OUTSIDE RECORDS SUMMARY | ~2020-02-12 | XMS | Encounter Summary ---
Demographics + + + | Address | [address] | | | [place] [address] | + + + | Home Phone [...] + +------+ + | Care Tool Filer Name | Role | Phone | + [...] 2017 | | [facility] DI[facility] | [phone] | ketoacidosis without | | | | EDUCATION [address] | | coma associated | | | | [place], | | with type 1 diabetes | | | | [place] [address] | | mellitus (HCC) | | | | [phone] | | (Primary Dx) | +--------+ + [...]
[~2020-02-12 19:03] MED LIST changes: +VENTOLIN HFA18 GM INH
== END 2020-02-12 21:56 | disposition home or self-care (01) ==
LOC: ED 19:03
DX: E10.65 Type 1 diabetes mellitus with hyperglycemia (principal); F15.90 Other stimulant use, unspecified, uncomplicated; F90.9 Attention-deficit hyperactivity disorder, unspecified type; F17.200 Nicotine dependence, unspecified, uncomplicated; Z91.030 Bee allergy status; Z79.4 Long term (current) use of insulin; Z88.8 Allergy status to other drugs, medicaments and biological substances; Z79.899 Other long term (current) drug therapy
CPT/HCPCS: 80053; 81001; 82010; 82803; 85025; 96374; 99284-25; J1200; J1815; J7030

== ENCOUNTER 2020-03-13 21:09 | Emergency (ER) | payer OTHER ==
[~2020-03-13] VITALS: Ht 175.3 cm; Wt 58.2 kg
--- OUTSIDE RECORDS SUMMARY | ~2020-03-13 | XMS | Encounter Summary ---
Demographics + + + | Address | [address] | | | [place] [address] | + + + | Home Phone | | + + + | Preferred Language | Unknown | + + + | Marital Status | Single | + + + | Uatsdin Affiliation | 1001 | + + + [...] Team Providers + +------+ + | Care Flower Shop Laborer/Designer Name | Role | Phone | + +------+ + PCP | Unavailable | + +------+ + Encounter Details +--------+ + + + + | Date | Type | Department | Care Team | Description | +--------+ + + + + | 04/06/ | [facility] | ROGELIO TALAMANTES | Abhi Berger | | | 2003 | Encounter | FAMILY MEDICINE [address] | MD [address] | | | | | [address] | [place], [place] | | | | | [place] [address] | [address] | | | | | [phone] | | | +--------+ + + + [...]
--- OUTSIDE RECORDS SUMMARY | ~2020-03-13 | XMS | Encounter Summary ---
Demographics + + + | Address | [address] | | | [place] [address] | + + + | Home Phone [...] + + + | Author | [facility] | | | and Ryana | + + + | Organization | [facility] | | [...] Team Providers + +------+ + | Care Relief Mate Name | Role | Phone | + +------+ + | Shavon Covington | PCP | | + +------+ + Reason for Visit + + + | Reason | Comments | + + + | Edema | | + + + | High Blood Sugar | | | (Symptomatic) | | + + + | Chest Pain | | + + + Auth/Cert +--------+--------+ [...] | | | | | | | ([facility]) | | | | | | | Diabetic | | | | | | | ketoacidosis | | | | | | | without | | | | | | | coma | | | | | | | associated | | | | | | | with other | | | | | | | specified | | | | | | | diabetes | | | | | | | mellitus | | | | | | | ([facility]) | | | +--------+--------+ + + + + Encounter Details +--------+ + + + + | Date | Type | Department | Care Team | Description | +--------+ + + + + | 06/20/ | Hospital | [facility] | Mitch Cee, | Diabetic | | 2016 - | Encounter | MED [facility] ICU [address] | MD [address] | ketoacidosis without | | | | [place], | [place], [place] | coma associated | | 06/21/ | | [place] [address] | [id number] | with other specified | | 2015 | | [phone] | | diabetes mellitus | | | | | Kevin Gifford MD | ([facility]) (Primary Dx); | | | | | [address] | Diabetic | | | | | [place], [place] | ketoacidosis without | | | | | [id number] | coma associated | | | | | | with type 1 diabetes | | | | | | mellitus ([facility]) | +--------+ + + + + Social [...] + + + | Blood Pressure | 132/83 | 06/21/2016 4:00 PM | | | | | PST | | + + + + + | Pulse | 80 | 06/21/2016 4:00 PM | | | | | PST | | + + + + + | Temperature | 36.3 C (97.3 F) | 06/21/2016 4:00 PM | | | | | PST | | + + + + + | Respiratory Rate | 15 | 06/21/2016 4:00 PM | | | | | PST | | + + + + + | Oxygen Saturation | 98% | 06/21/2016 4:00 PM | | | | | PST | | + + + + + | Inhaled Oxygen | - | - | | | Concentration | | | | + + + + + | Weight | 58.3 kg (128 lb 8.5 | 06/21/2016 2:30 AM | | | | oz) | PST | | + + + + + | Height | 177.8 cm (5' 10") | 06/21/2016 2:30 AM | | | | | PST | | + + + + + | Body Mass Index | 18.44 | 06/21/2016 2:30 AM | | | | | PST [...] documented as of this encounter Discharge Summaries Santino Blake MD - 06/21/2016 5:44 PM PST DISCHARGE SUMMARY Patient Name: Joni Kwon : 1980 Date of Admission: 06/20/2016 Date of Discharge: 06/21/2016 Admitting Physician: Kevin Gifford MD Discharging Physician: Santino Blake MD Primary Care Provider: DENIS Paul Discharge Diagnoses: Principal Problem: Diabetic ketoacidosis without coma associated with type 1 diabetes mellitus Active Problems: Type 2 diabetes mellitus without complication, with long-term current use of insulin ADHD (attention deficit hyperactivity disorder) Marijuana use Tobacco smoker Resolved Problems: * No resolved hospital problems. * Patient Active Problem List Diagnosis Type 2 diabetes mellitus without complication, with long-term current use of insulin Diabetic ketoacidosis without coma associated with type 1 diabetes mellitus ADHD (attention deficit hyperactivity disorder) Marijuana use Tobacco smoker Consultants: None Procedures: None Reason for Admission/Hospital Course: Please refer to the H&P for full details. In short, this is a 35 y.o. male with a history of poorly controlled diabetes with frequent episodes of DKA who presented to hospital with i ncreased glucometer readings and increased somnolence. He was found to be in DKA with elevated beta hydroxybutyrate was placed on insulin drip and his anion gap rapidly corrected and he was switched to subcutaneous insulin and his diet wa s advanced and was tolerated. Over the past 12 hours his fingerstick readings have been with in acceptable range. He was educated by myself regarding the seriousness of DKA and that it could be lethal. He verbalized understanding and his willingness to be more adherent to his diabetes medication s. The time of discharge was in stable condition. Physical Exam: Gen Scott - thin white male, alert, cooperative and no distress Head - Normocephalic, without obvious abnormality, atraumatic Eyes - PERRL, conjunctiva/corneas clear, EOM's intact both eyes ENT - mucous membranes moist Neck - supple Lungs - clear to auscultation, no wheezes or rales and unlabored breathing Heart - normal rate, regular rhythm, normal S1, S2, no murmurs, rubs, clicks or gallops Abdomen - soft, non-tender, without masses or organomegaly Extremities - no peripheral edema, no clubbing or cyanosis Skin - no rashes Neurologic - Alert and oriented x 3. CN II-XII intact. Code Status: TBD - Full Code by default Disposition: Home Discharge Condition: good Follow-up Information Follow up with DENIS Paul In 4 days. Specialty: Family Nurse Practitioner Contact information: [address], [address] [place] [address] Discharge Medications Changed Medications Details insulin glargine 100 units/mL injection (vial) Inject 9 Units under the skin every morning. What changed: Another medication with the same name was removed. Continue taking this medi cation, and follow the directions you see here. aka: LANTUS Unchanged Medications Details aspirin 81 mg chewable tablet Take 81 mg by mouth Daily. OC-Kiyvveeehauaa-Zpolbnxquqelj 10-5-325 MG Caps Take 1 capsule by mouth Daily as needed (for sinus congestion). insulin lispro 100 units/mL injection (cartridge) Inject under the skin 3 times daily (before meals). Per sliding scale. aka: humaLOG STRATTERA 100 MG capsule Generic drug: atoMOXetine Take 100 mg by mouth every morning. Studies With Pending Results: None Greater than 30 minutes were spent on discharge and coordination of post-hospital care. Electronically signed by: Santino Blake MD, 06/21/2016 17:44 [facility] documented in this enc ounter Medications at Time of Discharge + + + +---------+--------+ + | Medication | Sig | Dispensed | Refills | Start | End Date | | | | | | Date | | + + + +---------+--------+ + | aspirin 81 mg | Take 81 mg by mouth | | 0 | | | | chewable tablet | Daily. | | | | 7 | + + + +---------+--------+ + | atoMOXetine | Take 100 mg by mouth | | 0 | | | | (STRATTERA) 100 MG | every morning. | | | | 7 | | capsule | | | | | | + + + +---------+--------+ + | | Take 1 capsule by | | 0 | | | | MX-Osrqlqcitjxkb-Gox | mouth Daily as | | | | 7 | | taminophen 10-5-325 | needed (for sinus | | | | | | MG CAPS | congestion). | | | | | + + + +---------+--------+ + | insulin glargine | Inject 9 Units under | | 0 | | | | (LANTUS) 100 | the skin 2 times | | | | 7 | | units/mL injection | daily. | | | | | | (vial) | | | | | | + + + +---------+--------+ + | insulin lispro | Inject 2 Units under | | 0 | | | | (HUMALOG) 100 | the skin 3 times | | | | 7 | | units/mL injection | daily (before | | | | | | (cartridge) | meals). Plus sliding | | | | | | | scale. | | | | | + + + +---------+--------+ + documented as of this encounter Progress Notes Ayala Han, [facility] - 06/20/2016 9:53 PM PSTFormatting of this note might be different fro m the original. PHARMACY SERVICES: ADMISSION MEDICATION REVIEW Joni Kwon is a 35 y.o. male admitted on 06/20/2016. Patient is not a reliable historian. Patient preferred pharmacies closed. Med history techn rose will call 06/21/2016 @ [phone] to obtain current medication list and update INSTRUMENTATION TECHNOLOGIST medicatio ns as necessary. Location of Patient when reviewed: [x] ED [] Medical Floor Patient s prior to admit medication and over the counter (OTC) medications/herbal supplem ents list obtained from: [x] Verbal interview (patient is able to recall drug name, strength, frequency, etc.) [] Patient/family member provided a complete current medication list or bottles [] [facility] from [facility] facility: [] Doctor's office: [] Pharmacy list names: [] [employer] insurance reported information [] Care Everywhere [] Other sources: Vaccines up to date? Yes No Unsure Influenza [] [x] [] Pneumococcal [] [x] [] Tdap [] [x] [] Shingles [] [x] [] Noted medications discrepancies or medication-related issues: Dosage change: Medication: Prior to Admission Sig: Patient taking differently INSTRUMENTATION TECHNOLOGIST as: Insulin Glargine 100 u/ml 15 units nightly 9 units in the morning and 6 units in the evenin g Medication added: Medication: Prior to Admission Sig: SM-Noaulkflrcpdg-Wnfdcuoyhcgep 10-5-325 mg 1 cap daily as needed for sinus congestion Medication review performed and electronically signed by Luis Araujo Conference Manager 06/20 21:44 Reviewed by Ayala Han RPH 06/20/2016 21:53 documented in this en counter H&P Notes Kevin Gifford MD - 06/20/2016 11:07 PM PSTFormatting of this note might be different fro m the original. [place] HOSPITALIST HISTORY & PHYSICAL Patient: Joni Kwon : 1980: Age: 35 y.o. MedRec: [id number] PCP: DENIS Paul Admission date: 06/20/2016 Hospital day #: Physician author: Kevin Gifford MD Today: 06/20/2016 CHIEF COMPLAINT: LE swelling and high sugars and chest pain (latter since age 16) HISTORY OF PRESENT ILLNESS: This is a 35 y.o. male with a history of 5 admits he says in 2016 for DM out of control, DM since age 4 is on insulin lantus and meal time (not large amounts) was in [facility] for DKA got out Friday and this morning () felt groggy and took he thinks to [place] Lantus and fell back to sleep then later woke up with above CC and had mom drive him to [facility] ER (his choice) found to be in DKA and put on insulin gtt His chest pain since age 16 he takes tylenol OTC and smokes MJ ADHD Dx in school only finished 8th grade Lives with mom in [place] says she had recent sgy on her uterus but says something about polyps Smokes tobacco too, has rare ETOH Polydrug abuse in the past Heroin Speed Meth Mushrooms LSA (not LSD) Says only meal today breakfast Some cough and sneezing using OTC allergy medicine for his nose No abd pain No teeth Sees [place] Headache He thinks his PCP Shavon BARRIOS is a Medical Doctor PAST MEDICAL and SURGICAL HISTORY: Past Medical History Diagnosis Date Diabetes mellitus (HCC) Depression Unclear of major depression vs bipolar depression ADHD (attention deficit hyperactivity disorder) Past Surgical History Procedure Laterality Date Tonsillectomy FAMILY HISTORY: family history includes Diabetes in his maternal grandfather and maternal grandmother. SOCIAL HISTORY: reports that he has been smoking Cigarettes. He has been smoking about 0.50 packs per day . He does not have any smokeless tobacco history on file. He reports that he drinks alcohol. He reports that he uses illicit drugs (Marijuana) about 3 times per week. See HPI REVIEW OF SYSTEMS: A complete 10 system ROS was done and recorded in the HPI (Constitutional, Eye, ENT, Cardia c, Respiratory, GI, , Musculoskeletal, Skin & Breast, Neurological) with the remainder neg ative. Further notations, if any, will be noted below. (meynotebar) HOME MEDICATIONS: Previous Medications ASPIRIN 81 MG CHEWABLE TABLET Take 81 mg by mouth Daily. ATOMOXETINE (STRATTERA) 100 MG CAPSULE Take 100 mg by mouth every morning. ZZ-ZIDHSNFCJEEME-NHQWFILZXAYJJ 10-5-325 MG CAPS Take 1 capsule by mouth Daily as needed (for sinus congestion). INSULIN GLARGINE (LANTUS) 100 UNITS/ML INJECTION (VIAL) Inject 9 Units under the skin e very morning. INSULIN GLARGINE (LANTUS) 100 UNITS/ML INJECTION (VIAL) Inject 9 Units under the skin n ightly. INSULIN LISPRO (HUMALOG) 100 UNITS/ML INJECTION (CARTRIDGE) Inject under the skin 3 ti mes daily (before meals). Per sliding scale. PT REPORTED TAKING NOT TAKING Medication Sig Last Dose Dispense Doc. Provider aspirin 81 mg chewable tablet Take 81 mg by mouth Daily. Taking Historical ProviderMD atoMOXetine (STRATTERA) 100 MG capsule Take 100 mg by mouth every morning. Taking Histori cristobal ProviderMD DV-Rjjwdvrqgzeme-Tlbpgldwznbwd 10-5-325 MG CAPS Take 1 capsule by mouth Daily as needed (f or sinus congestion). Historical Provider, insulin glargine (LANTUS) 100 units/mL injection (vial) Inject 9 Units under the skin ever y morning. 06/20/2016 Historical ProviderMD insulin glargine (LANTUS) 100 units/mL injection (vial) Inject 9 Units under the skin nigh tly. 06/19/2016 DENIS Jaimes insulin lispro (HUMALOG) 100 units/mL injection (cartridge) Inject under the skin 3 times daily (before meals). Per sliding scale. 06/20/2016 Historical ProviderMD Note neither list of medicines will show if patient is taking differently Note that the Taking not Taking list will not show meds that need to be reviewed (dot medstakingnottaking hmeds2 hmeds ptarxtaking) ALLERGIES: Allergies Allergen Reactions Haloperidol Swelling Risperidone Other (See Comments) "sleeps too long" VITAL SIGNS: Temp: 36.7 C (98 F), Pulse: 81, Resp: 16, BP: 105/75 mmHg, SpO2 97 % on room air at tanvir w rate L/min Temp Min: 36.7 C (98 F) Max: 36.7 C (98 F) Weight: 58.968 kg (130 lb) PHYSICAL EXAMINATION: Constitutional Awake with flat affect Speech fluent NAD Hungry Eye Pupils ER No conjunctivitis nor scleral icterus ENT Unremarkable oral ear and nose except edendtulate Neck No adenopathy, thyromegaly nor masses Lymph node exam Negative in the following areas: neck and epitrochlear Cardiac Car RRR no MRG with mild LE edema Lung Auscultation clear Respiratory effort not labored Percussion not done Abdomen + BS, Soft, NT, no HSM nor masses Psych Mood and affect flat Oriented to name, date (month, year) and place Neuro Awake and fluent and cooperative (timothy pendleton) DIAGNOSTIC STUDIES: Hematology and anemia Recent Labs Lab 06/20/161924 WBC 4.4 HGB 12.4* HCT 35.5* PLT 200 No results for input(s): PROTIME, INR, PTT in the last 168 hours. No results for input(s): IRON, TIBC, PCTSAT, FERRITIN, TSH, [id number], FOLATE in the last 168 hours. Inflammatory markers No results for input(s): LACTATE, PROCALCITONI, CRP, ESR in the last 168 hours. Chemistry Recent Labs Lab 06/20/161924 GLU 613* NA 124* K 4.9 CL 86* CO2 23* ANIONGAP 15 BUN 18 CREA 1.09 GFRNONAA >60 CALCIUM 8.8 No results for input(s): MG, PHOS in the last 168 hours. No results for input(s): AMYLASE, LIPASE in the last 168 hours. No results for input(s): TRIG, CHOL, HDL, LDL in the last 168 hours. No results for input(s): AMMONIA in the last 168 hours. Cardiology & Digoxin No results for input(s): TROPONIN, CK, CKMB, BNP, DIGOXIN in the last 168 hours. Invalid input(s): CKTOTAL ABG No results for input(s): PHART, PO2ART, UDX6SUE, GUA0ITE, BEART, O9KNJMNE in the last 168 h ours. No results for input(s): SPECSOURCE, PHPOCB, PCO2, PO2, HCO3, TCO2, BEART, NSLF8AHF in the last 168 hours. Drug of overdose and abuse No results for input(s): ALCOHOL, ACTMN, SALICYLATE in the last 168 hours. No results for input(s): AMPHEQUAL, BARBITURATE, BENZSCR, CANNIBSCR, AMPHETAMINE, METHADSCR , OPIATESCR in the last 168 hours. Urinalysis No results for input(s): GLUCOSEU, WBCUA, RBCUA, SQUAMEPIUA, BACTERIAUA, CULTIF in the last 168 hours. Micro results (more choices using dotmicro) Microbiology Results (72 hrs) No results found for the last 72 hours. Radiology results (more choices using dotrisresults) No results found. I reviewed and summarized old records scant here nothing from Hand yet but RN was to r equest ASSESSMENT: (meyprob vs meyprobap) Principal Problem: Diabetic ketoacidosis without coma associated with type 1 diabetes sebastian Active Hospital Problems Diagnosis Diabetic ketoacidosis without coma associated with type 1 diabetes mellitus Just got out of [facility] for DKA 2 days ago Friday Supposed to do his Lantus 9 units bid but he thinks took less this morning His short acting insulin is 1-2 units with meals and SS he does not recall but says adds 1 unit extra if glucose 200 and 3 units extra if glucose 300 He says is brittle DM Hyponatremia Most would be pseudo from his DM Type 2 diabetes mellitus without complication, with long-term current use of insulin Dx age 4 ADHD (attention deficit hyperactivity disorder) Dx in school He also [facility] depression I see he is intolerant of antipsychotic meds, I asked patient about that and he replies heath t when his DM is poorly controlled his behavior changes Marijuana use He says not daily ETOH use he says is rare Chronic chest pain since age 16 He medicates with tylenol and MJ The narcotic in ER works too He is NOT on chronic narcotics as outpatient Tobacco smoker Prior Hx of poly drug abuse Resolved Hospital Problems Diagnosis No resolved problems to display. (meynotebar) Code Status TBD Medical Decision Maker Mother Blossom (he lives with mother and is not working) DVT Prophylaxis SCD's while in bed (meyaddendum tdnorefesh nownorefresh) PLAN: Admit stepdown Influenza swab (coughing and sneezing by history but NONE observed in ER eval by me) He has been on columnar insulin gtt in ER but sugars come down nicely and repeat BNP pendin g Needs DM education (re-education) Had NS boluses X 2 Note that his MDRD normal in ER Troponin add on and EKG (however CP since age 16 anterior/epig areas) Urine Drug Screen Addendum (06/20/2016 23:29) Last BMP gap is closed will start on Lantus and SS but since just out of DKA will have in S tepdown also changed IVF Addendum (06/20/2016 23:53) I cancelled my EKG order as ER located his ER EKG (was real printout was NOT in EPIC) is NS R normal EKG (dot meyaddendum tdnorefesh nownorefresh) (dot meytime meycritical) [facility] Documentation I expect this patient will be hospitalized for greater than 2-midnights and expect the post -hospital plan to be discharge to home or to an adult foster home. Electronically signed by: Kevin Gifford MD 06/20/2016 23:07 [facility] (meyaddendum tdnorefesh nownorefresh) Portions of this chart may have been created with RealD voice recognition software. Occasi onal wrong-word or sound-alike substitutions may have occurred due to the inherent renee itations of voice recognition software. Please read the chart carefully and recognize, using context, where these substitutions have occurred documented in this en counter ED Notes Mitch Cee MD - 06/20/2016 7:34 PM PSTFormatting of this note might be different fro m the original. eMERGENCY dEPARTMENT eNCOUnter CHIEF COMPLAINT Chief Complaint Patient presents with Edema High Blood Sugar (Symptomatic) Chest Pain HPI Joni Kwon is a 35 y.o. male who presents with bilateral lower extremity swelli ng, and high blood sugar. He was just discharged out of [facility] where he was r eportedly for DKA. He states since then he's had elevated blood sugars again and is been ge tting worse so he came to the ER for further evaluation. He's had a lot of nausea but no vo miting. No diarrhea. No cough. He states he has very poor blood sugars. PAST MEDICAL HISTORY Past Medical History Diagnosis Date Diabetes mellitus (HCC) Depression ADHD (attention deficit hyperactivity disorder) SURGICAL HISTORY Past Surgical History Procedure Laterality Date Tonsillectomy CURRENT MEDICATIONS Previous Medications ASPIRIN 81 MG CHEWABLE TABLET Take 81 mg by mouth Daily. ATOMOXETINE (STRATTERA) 100 MG CAPSULE Take 100 mg by mouth Daily. INSULIN GLARGINE (LANTUS) 100 UNITS/ML INJECTION (VIAL) Inject 15 Units under the skin nightly. INSULIN LISPRO (HUMALOG) 100 UNITS/ML INJECTION (CARTRIDGE) Inject under the skin 3 ti mes daily (before meals). ALLERGIES Allergies Allergen Reactions Haloperidol Swelling Risperidone Other (See Comments) "sleeps too long" FAMILY HISTORY History reviewed. No pertinent family history. SOCIAL HISTORY Social History Social History Marital Status: Single Spouse Name: N/A Number of Children: N/A Years of Education: N/A Social History Main Topics Smoking status: Current Every Day Smoker -- 0.50 packs/day Types: Cigarettes Smokeless tobacco: None Alcohol Use: Yes Comment: occassionally Drug Use: 3.00 per week Special: Marijuana Sexual Activity: Not Asked Other Topics Concern None Social History Narrative None REVIEW OF SYSTEMS All systems reviewed and negative except as noted on HPI and/or limited by patient conditio n PHYSICAL EXAM VITAL SIGNS: Temp: 36.7 C (98 F) Pulse: 93 Resp: 16 SpO2: 100 % BP: (!) 144/124 mmHg Constitutional: Well developed, Well nourished, No acute distress, Non-toxic appearance. HENT: Normocephalic, Atraumatic, Oropharynx moist, No oral exudates, Nose normal. Neck- No rmal range of motion, No tenderness, Supple, No stridor. Eyes: PERRL, EOMI, Conjunctiva normal, No discharge. Respiratory: Normal breath sounds, No respiratory distress, No wheezing, No chest tenderne ss. Cardiovascular: Normal S1, S2 GI: nondistended : not done Musculoskeletal: Intact distal pulses, No edema ,Integument: Warm, Dry, No erythema, No rash. EKG Not done RADIOLOGY No results found. Medications Administered Insulin ED COURSE & MEDICAL DECISION MAKING Last Set of Vital Signs: Temp: 36.7 C (98 F) Pulse: 87 Resp: 20 SpO2: 98 % BP: 119/83 m mHg Pertinent Labs, Nurses Note, & Imaging studies reviewed. (See chart for details) This is a 35-year-old male in DKA. He is admitted to the hospital service for further eval uation and treatment. He is placed on an insulin drip. FINAL IMPRESSION DKA LABS FROM THIS VISIT OR MOST RECENT ER VISIT: Results for orders placed or performed during the hospital encounter of 06/20/16 Extra Blue Top Tube Result Value Ref Range Extra Blue Top Tube Done Extra Green Top Tube Result Value Ref Range Extra Green Top Tube Done Extra Lavender Top Tube Result Value Ref Range Extra Lavender Top Tube Done Extra Gold Top Tube Result Value Ref Range EGDT Done Extra Green Top Tube Result Value Ref Range Extra Green Top Tube Done CBC no Differential Result Value Ref Range WBC 4.4 4.0-11.0 K/uL RBC 3.65 (L) 4.30-5.70 M/uL Hgb 12.4 (L) 13.5-18.0 g/dL Hct 35.5 (L) 40.0-51.0 % MCV 97.3 83.0-101.0 fL MCH 33.9 28.0-35.0 pg MCHC 34.8 32.0-36.0 g/dL RDW-CV 14.0 <15.0 % Platelet Count 200 140-440 K/uL MPV 8.1 fL Basic Metabolic Panel Result Value Ref Range NA 124 (L) 136-149 mmol/L K 4.9 3.5-5.1 mmol/L CL 86 (L) 98-109 mmol/L CO2 23 (L) 24-31 mmol/L ANION GAP 15 3-16 mmol/L GLUCOSE 613 (HH) 70-109 mg/dL BUN 18 7-18 mg/dL Creatinine, Serum/Plasma 1.09 0.60-1.30 mg/dL eGFR if not >60 >=60 mL/min/1.73m2 CALCIUM 8.8 8.3-10.5 mg/dL BUN/CREA 16.5 Beta Hydroxybutyrate, Quant Result Value Ref Range Beta Hydroxybutyrate 4.90 (H) 0.02-0.27 mmol/L POC Glucose Result Value Ref Range Glucose, POC >600 (HH) 70-150 mg/dL POC Glucose Result Value Ref Range Glucose, POC 408 (H) 70-150 mg/dL Mitch Cee MD 06/20/162106 document ed in this encounter Miscellaneous Notes eICU Note - Gisella Delaney, RN - 06/21/2016 6:56 PM PSTReviewed checking blood sugars, ta jordi insulin as prescribed, balancing diet and exercise, and calling DrPaula If blood sugars are outside of his normal limits for more than a day call his Dr. Mom and Dad were at the beds [facility] and also participated in this conversation. Discharged ambulatory with Mom and Dad.Elec tronically signed by Gisella Delaney, RN at 06/21/2016 6:59 PM PSTPlan of [facility] - Fe Duarte RN - 06/21/2016 3:40 PM PSTProblem: Discharge Planning Goal: Patient will be discharged in a safe manner Discharge planning: This CM met with patient at bedside today. Joni states he lives with his mom. He states his mom does help him. She will remind him to take his medications, get him to and from appts and she does the cooking and cleaning. S he also manages to help care for his sisters 5 children. He states he help to get them to an d from school. Joni comments that the home is very cluttered, but when asked if he had r oom for his belongings he stated yes. 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 Joni states she has been with them for several years and that he has a history of mental health issues. He states he has upcoming appts with them. His mom transports him to these appts. Joni states he is able to ambulate without any DME. He is able to manage his ADL's at h ome. His PCP is DENIS Diallo and he states he uses [facility] or [facility] pharmacies. His mom will be her to transport him home when he is medically stable for discharge. Electronically signed by: Chio Duarte RN 06/21/2016 15:40 lan of Care - Nick Bhandari RN - 06/21/2016 5:39 AM PSTProblem: Patient Care Overview (Adult) Goal: Care Team Goals & Evaluation PROBLEM-RELATED GOALS: 1.Joni will demonstrate blood glucose level at baseline(<200) by 06/24/16. 2.Joni will remain free from falls by 06/24/16. STRATEGY TO ACHIEVE GOALS: 1.Perform POCT glucose checks per order and give sliding scale insulin per protocol. Give s heduled lantus as ordered. Educate patient on S/S of hyper/hypoglycemia and have patient rep ort symptoms if experienced. 2.Educate patient on use of call light. Use bed alarm until patient is capable of being ind ependent in room or is calling appropriately. Outcome: Improving Goal Evaluation: Insulin gtt off now, Lantus and sliding scale Humalog started. Denies chest pain after Pepc id given. AOX4. Mumbles sometimes d/t lack of teeth. SBP 90-100s. Other vital signs stable o n room air. Na 133, Trop neg. BMP Q4H. D Triage Notes - Kendra Finnegan RN - 06/20/2016 7:17 PM PSTPt c/o BLE swelling with pitting edema, hi gh blood sugars at home (too high to read here), and chest pain. Was d/c from [facility] on Friday with DKA. documented in this encounter Plan of Treatment Not on filedocumented as of this encounter Procedures + +--------+ + + + | Procedure Name | Priori | Date/Time | Associated Diagnosis | Comments | | | ty | | | | + +--------+ + + + | POC GLUCOSE | Routin | 06/21/2016 | | Results for this | | | e | 5:06 PM | | procedure are in the | | | | PST | | results section. | + +--------+ + + + | BASIC METABOLIC | STAT | 06/21/2016 | | Results for this | | PANEL | | 11:55 AM | | procedure are in the | | | | PST | | results section. | + +--------+ + + + | POC GLUCOSE | Routin | 06/21/2016 | | Results for this | | | e | 11:36 AM | | procedure are in the | | | | PST | | results section. | + +--------+ + + + | BASIC METABOLIC | STAT | 06/21/2016 | | Results for this | | PANEL | | 8:42 AM | | procedure are in the | | | | PST | | results section. | + +--------+ + + + | POC GLUCOSE | Routin | 06/21/2016 | | Results for this | | | e | 6:36 AM | | procedure are in the | | | | PST | | results section. | + +--------+ + + + | POC GLUCOSE | Routin | 06/21/2016 | | Results for this | | | e | 4:41 AM | | procedure are in the | | | | PST | | results section. | + +--------+ + + + | EXTRA LAVENDER TOP | Routin | 06/21/2016 | | Results for this | | TUBE | e | 4:02 AM | | procedure are in the | | | | PST | | results section. | + +--------+ + + + | BASIC METABOLIC | STAT | 06/21/2016 | | Results for this | | PANEL | | 4:02 AM | | procedure are in the | | | | PST | | results section. | + +--------+ + + + | CULTURE, MRSA | Routin | 06/21/2016 | | Results for this | | | e | 2:39 AM | | procedure are in the | | | | PST | | results section. | + +--------+ + + + | POC GLUCOSE | Routin | 06/21/2016 | | Results for this | | | e | 2:28 AM | | procedure are in the | | | | PST | | results section. | + +--------+ + + + | POC GLUCOSE | Routin | 06/21/2016 | | Results for this | | | e | 1:02 AM | | procedure are in the | | | | PST | | results section. | + +--------+ + + + | POC GLUCOSE | Routin | 06/21/2016 | | Results for this | | | e | 12:18 AM | | procedure are in the | | | | PST | | results section. | + +--------+ + + + | BASIC METABOLIC | STAT | 06/21/2016 | | Results for this | | PANEL | | 12:13 AM | | procedure are in the | | | | PST | | results section. | + +--------+ + + + | URINALYSIS WITH | STAT | 06/20/2016 | | Results for this | | MICROSCOPIC WITH | | 11:17 PM | | procedure are in the | | CULTURE IF INDICATED | | PST | | results section. | + +--------+ + + + | DRUGS OF ABUSE, | Routin | 06/20/2016 | | Results for this | | SCREEN, URINE | e | 11:17 PM | | procedure are in the | | | | PST | | results section. | + +--------+ + + + | INFLUENZA A AND B | STAT | 06/20/2016 | | Results for this | | RNA, NAAT | | 11:06 PM | | procedure are in the | | | | PST | | results section. | + +--------+ + + + | TROPONIN I | Add-On | 06/20/2016 | | Results for this | | | | 10:48 PM | | procedure are in the | | | | PST | | results section. | + +--------+ + + + | PHOSPHORUS | STAT | 06/20/2016 | | Results for this | | | | 10:48 PM | | procedure are in the | | | | PST | | results section. | + +--------+ + + + | MAGNESIUM | STAT | 06/20/2016 | | Results for this | | | | 10:48 PM | | procedure are in the | | | | PST | | results section. | + +--------+ + + + | BASIC METABOLIC | STAT | 06/20/2016 | | Results for this | | PANEL | | 10:48 PM | | procedure are in the | | | | PST | | results section. | + +--------+ + + + | POC GLUCOSE | Routin | 06/20/2016 | | Results for this | | | e | 10:43 PM | | procedure are in the | | | | PST | | results section. | + +--------+ + + + | POC GLUCOSE | Routin | 06/20/2016 | | Results for this | | | e | 9:45 PM | | procedure are in the | | | | PST | | results section. | + +--------+ + + + | ECG 12 LEAD | STAT | 06/20/2016 | | Results for this | | | | 9:42 PM | | procedure are in the | | | | PST | | results section. | + +--------+ + + + | POC GLUCOSE | Routin | 06/20/2016 | | Results for this | | | e | 8:46 PM | | procedure are in the | | | | PST | | results section. | + +--------+ + + + | EXTRA GREEN TOP TUBE | Routin | 06/20/2016 | | Results for this | | | e | 7:26 PM | | procedure are in the | | | | PST | | results section. | + +--------+ + + + | BETA | STAT | 06/20/2016 | | Results for this | | HYDROXYBUTYRATE, | | 7:25 PM | | procedure are in the | | QUANT | | PST | | results section. | + +--------+ + + + | EXTRA LAVENDER TOP | Routin | 06/20/2016 | | Results for this | | TUBE | e | 7:25 PM | | procedure are in the | | | | PST | | results section. | + +--------+ + + + | EXTRA GREEN TOP TUBE | Routin | 06/20/2016 | | Results for this | | | e | 7:25 PM | | procedure are in the | | | | PST | | results section. | + +--------+ + + + | EXTRA GOLD TOP TUBE | Routin | 06/20/2016 | | Results for this | | | e | 7:25 PM | | procedure are in the | | | | PST | | results section. | + +--------+ + + + | EXTRA BLUE TOP TUBE | Routin | 06/20/2016 | | Results for this | | | e | 7:25 PM | | procedure are in the | | | | PST | | results section. | + +--------+ + + + | CBC NO DIFFERENTIAL | STAT | 06/20/2016 | | Results for this | | | | 7:25 PM | | procedure are in the | | | | PST | | results section. | + +--------+ + + + | BASIC METABOLIC | STAT | 06/20/2016 | | Results for this | | PANEL | | 7:25 PM | | procedure are in the | | | | PST | | results section. | + +--------+ + + + | POC GLUCOSE | Routin | 06/20/2016 | | Results for this | | | e | 7:17 PM | | procedure are in the | | | | PST | | results section. | + +--------+ + + + documented in this encounter Results POC Glucose (06/21/2016 5:06 PM PST) + +---------+ + + + | Component | Value | Ref Range | Performed | Pathologist | | | | | At | Signature | + +---------+ + + + | Glucose, | 252 (H) | 70 - 150 mg/dL | [facility] | | | POC [...] [address] | [place] | [phone] | | [facility] | | [address] | | | - LABORATORY | | | | + + + + + Basic Metabolic Panel (06/21/2016 11:55 AM PST) + + + + + + | Component | Value | Ref Range | Performed | Pathologist | | | | | At | Signature | + + + + + + | Na | 129 (L) | 136 - 149 | [facility] | | | | | mmol/L | [facility] | | | | | | MEDICAL | | | | | | CENTER - | | | | | | LABORATORY | | + + + + + + | K | 4.4 | 3.5 - 5.1 | [facility] | | | | | mmol/L | [facility] | | | | | | MEDICAL | | | | | | CENTER - | | | | | | LABORATORY | | + + + + + + | Cl | 93 (L) | 98 - 109 mmol/L | [facility] | | | | | | [facility] | | | | | | MEDICAL | | | | | | CENTER - | | | | | | LABORATORY | | + + + + + + | CO2 | 29 | 24 - 31 mmol/L | [facility] [...] + + + + | Glucose | 125 (H) | 70 - 109 mg/dL | [facility] | | | | | | [facility] | | | | | | MEDICAL | | | | | | CENTER - | | | | | | LABORATORY | | + + + + + + | BUN | 10 | 7 - 18 mg/dL | [facility] | | | | | | [facility] | | | | | | MEDICAL | | | | | | CENTER - | | | | | | LABORATORY | | + + + + + + | Creatinine | 0.65 | 0.60 - 1.30 | [facility] | | | | | mg/dL | [facility] | | | | | | MEDICAL | | | | | | CENTER - | | | | | | LABORATORY | | + + + + + + | eGFR, | >60Comment: GLOMERULAR | >=60 | [facility] | | | non- | FILTRATION | mL/min/1.73m2 | [facility] | | | [place] | RATE,ESTIMATED | | MEDICAL | | | | mL/min/1.45h8Vmej than | | CENTER - | | [...] + + + + | BUN/Creatin | 15.4 | | [facility] | | | ine [...] + | [facility] | [address] | [place] | [phone] | | [facility] | | [address] | | | - LABORATORY | | | | + + + + + POC Glucose (06/21/2016 11:36 AM PST) + +-------+ + + + | Component | Value | Ref Range | Performed | Pathologist | | | | | At | Signature | + +-------+ + + + | Glucose, | 123 | 70 - 150 mg/dL | [facility] [...] [facility] | [address] | [place] | [phone] | | [facility] | | [address] | | | - LABORATORY | | | | + + + + + Basic Metabolic Panel (06/21/2016 8:42 AM PST) + + + + + + | Component | Value | Ref Range | Performed | Pathologist | | | | | At | Signature | + + + + + + | Na | 134 (L) | 136 - 149 | [facility] [...] + + | Cl | 99 | 98 - 109 mmol/L | [facility] | | | | | | [facility] | | | | | | MEDICAL | | | | | | CENTER - | | | | | | LABORATORY | | + + + + + + | CO2 | 29 | 24 - 31 mmol/L | [facility] | | | | | | [facility] | | | | | | MEDICAL | | | | | | CENTER - | | | | | | LABORATORY | | + + + + + + | Anion Gap | 6 | 3 - 16 mmol/L | [facility] | | | | | | [facility] | | | | | | MEDICAL | | | | | | CENTER - | | | | | | LABORATORY | | + + + + + + | Glucose | 160 (H) | 70 - 109 mg/dL | [facility] | | | | | | [facility] | | | | | | MEDICAL | | | | | | CENTER - | | | | | | LABORATORY | | + + + + + + | BUN | 12 | 7 - 18 mg/dL | [facility] | | | | | | [facility] | | | | | | MEDICAL | | | | | | CENTER - | | | | | | LABORATORY | | + + + + + + | Creatinine | 0.70 | 0.60 - 1.30 | [facility] | | | | | mg/dL | [facility] | | | | | | MEDICAL | | | | | | CENTER - | | | | | | LABORATORY | | + + + + + + | eGFR, | >60Comment: GLOMERULAR | >=60 | [facility] | | | non- | FILTRATION | mL/min/1.73m2 | [facility] | | | [place] | RATE,ESTIMATED | | MEDICAL | | | | mL/min/1.09q7Rybe than | | CENTER - | | [...] | 8.4 | 8.3 - 10.5 | [facility] | | | | | mg/dL | [facility] | | | | | | MEDICAL | | | | | | CENTER - | | | | | | LABORATORY | | + + + + + + | BUN/Creatin | 17.1 | | [facility] | | | ine [...] [address] | [place] | [phone] | | [facility] | | [address] | | | - LABORATORY | | | | + + + + + POC Glucose (06/21/2016 6:36 AM PST) + +---------+ + + + | Component | Value | Ref Range | Performed | Pathologist | | | | | At | Signature | + +---------+ + + + | Glucose, | 247 (H) | 70 - 150 mg/dL | [...] + | [facility] | [address] | [place] | [phone] | | [facility] | | [address] | | | - LABORATORY | | | | + + + + + POC Glucose (06/21/2016 4:41 AM PST) + +---------+ + + + | Component | Value | Ref Range | Performed | Pathologist | | | | | At | Signature | + +---------+ + + + | Glucose, | 174 (H) | 70 - 150 mg/dL | [...] ST. | [address] | [place], [place] | [phone] | | [facility] | | [address] | | | - LABORATORY | | | | + + + + + Extra Lavender Top Tube (06/21/2016 4:02 AM PST) + +-------+ + + + | Component | Value | Ref Range | Performed | Pathologist | | | | | At | Signature | + +-------+ + + + | Extra | Done | | [facility] | | | Lavender | | | [facility] | | | Top Tube | | [...] [address] | [place] | [phone] | | [facility] | | [address] | | | - LABORATORY | | | | + + + + + Basic Metabolic Panel (06/21/2016 4:02 AM PST) + + + + + + | Component | Value | Ref Range | Performed | Pathologist | | | | | At | Signature | + + + + + + | Na | 133 (L) | 136 - 149 | [facility] [...] + + | CO2 | 27 | 24 - 31 mmol/L | [facility] [...] + + + + | Glucose | 185 (H) | 70 - 109 mg/dL | [facility] | | | | | | [facility] | | | | | | MEDICAL | | | | | | CENTER - | | | | | | LABORATORY | | + + + + + + | BUN | 14 | 7 - 18 mg/dL | [facility] | | | | | | [facility] | | | | | | MEDICAL | | | | | | CENTER - | | | | | | LABORATORY | | + + + + + + | Creatinine | 0.74 | 0.60 - 1.30 | [facility] | | | | | mg/dL | [facility] | | | | | | MEDICAL | | | | | | CENTER - | | | | | | LABORATORY | | + + + + + + | eGFR, | >60Comment: GLOMERULAR | >=60 | [facility] | | | non- | FILTRATION | mL/min/1.73m2 | [facility] | | | [place] | RATE,ESTIMATED | | MEDICAL | | | | mL/min/1.16x0Vmov than | | CENTER - | | [...] + | [facility] | [address] | [place] | [phone] | | [facility] | | [address] | | | - LABORATORY | | | | + + + + + Culture, MRSA (06/21/2016 2:39 AM PST) + + + + + + | Component | Value | Ref Range | Performed | Pathologist | | | | | At | Signature | + + + + + + | Culture | Negative for MRSA by | | [facility] | | | | chromogenic agar method | | [facility] | | | [...] + | [facility] | [address] | [place] | [phone] | | [facility] | | [address] | | | - LABORATORY | | | | + + + + + POC Glucose (06/21/2016 2:28 AM PST) + +---------+ + + + | Component | Value | Ref Range | Performed | Pathologist | | | | | At | Signature | + +---------+ + + + | Glucose, | 170 (H) | 70 - 150 mg/dL | [...] [address] | [place] | [phone] | | [facility] | | [address] | | | - LABORATORY | | | | + + + + + POC Glucose (06/21/2016 1:02 AM PST) + +---------+ + + + | Component | Value | Ref Range | Performed | Pathologist | | | | | At | Signature | + +---------+ + + + | Glucose, | 165 (H) | 70 - 150 mg/dL | [facility] | | | POC [...] [address] | [place] | [phone] | | [facility] | | [address] | | | - LABORATORY | | | | + + + + + POC Glucose (06/21/2016 12:18 AM PST) + +-------+ + + + | Component | Value | Ref Range | Performed | Pathologist | | | | | At | Signature | + +-------+ + + + | Glucose, | 79 | 70 - 150 mg/dL | [facility] | | | POC [...] [address] | [place] | [phone] | | [facility] | | [address] | | | - LABORATORY | | | | + + + + + Basic Metabolic Panel (06/21/2016 12:13 AM PST) + + + + + [...] + + + + | Cl | 100 | 98 - 109 mmol/L | [facility] | | | | | | [facility] | | | | | | MEDICAL | | | | | | CENTER - | | | | | | LABORATORY | | + + + + + + | CO2 | 28 | 24 - 31 mmol/L | [facility] [...] + + + + | Glucose | 71 | 70 - 109 mg/dL | [facility] | | | | | | [facility] | | | | | | MEDICAL | | | | | | CENTER - | | | | | | LABORATORY | | + + + + + + | BUN | 12 | 7 - 18 mg/dL | [facility] | | | | | | [facility] | | | | | | MEDICAL | | | | | | CENTER - | | | | | | LABORATORY | | + + + + + + | Creatinine | 0.64 | 0.60 - 1.30 | [facility] | | | | | mg/dL | [facility] | | | | | | MEDICAL | | | | | | CENTER - | | | | | | LABORATORY | | + + + + + + | eGFR, | >60Comment: GLOMERULAR | >=60 | [facility] | | | non- | FILTRATION | mL/min/1.73m2 | [facility] | | | [place] | RATE,ESTIMATED | | MEDICAL | | | | mL/min/1.32x9Fpvx than | | CENTER - | | [...] + + + + | BUN/Creatin | 18.8 | | [facility] | | | ine [...] [address] | [place] | [phone] | | [facility] | | [address] | | | - LABORATORY | | | | + + + + + Urinalysis with Microscopic with Culture if Indicated (06/20/2016 11:17 PM PST) + + + + + + | Component | Value | Ref Range | Performed | Pathologist | | | | | At | Signature | + + + + + + | Color, | Straw | Light Yellow, | [facility] | | | Urine | | Yellow, Straw | [facility] | | | | | | MEDICAL | | | | | | CENTER - | | | | | | LABORATORY | | + + + + + + | Clarity, | Clear | Clear | [facility] | | | Urine | | | [facility] | | | | | | MEDICAL | | | | | | CENTER - | | | | | | LABORATORY | | + + + + + + | pH, Urine | 5.0 | 5.0 - 8.0 | [facility] | | | | | | [facility] | | | | | | MEDICAL | | | | | | CENTER - | | | | | | LABORATORY | | + + + + + + | Specific | 1.011 | 1.001 - 1.030 | [facility] | | | [place], | | | [facility] | | | Urine | | | MEDICAL | | | | | | CENTER - | | | | | | LABORATORY | | + + + + + + | Protein, | Negative | Negative | [facility] | | | Urine | | | [facility] | | | | | | MEDICAL | | | | | | CENTER - | | | | | | LABORATORY | | + + + + + + | Blood, | Negative | Negative | [facility] | | | Urine | | | [facility] | | | | | | MEDICAL | | | | | | CENTER - | | | | | | LABORATORY | | + + + + + + | Glucose, | >=500 mg/dL (A) | Negative | [facility] | | | Urine | | | [facility] | | | | | | MEDICAL | | | | | | CENTER - | | | | | | LABORATORY | | + + + + + + | Ketones, | 20 mg/dL (A) | Negative | [facility] | | | Urine | | | [facility] | | | | | | MEDICAL | | | | | | CENTER - | | | | | | LABORATORY | | + + + + + + | Bilirubin, | Negative | Negative | [facility] | | | Urine | | | [facility] | | | | | | MEDICAL | | | | | | CENTER - | | | | | | LABORATORY | | + + + + + + | Nitrite, | Negative | Negative | [facility] | | | Urine | | | [facility] | | | | | | MEDICAL | | | | | | CENTER - | | | | | | LABORATORY | | + + + + + + | Leukocyte | Negative | Negative | [facility] | | | Esterase, | | | [facility] | | | Urine | | | MEDICAL | | | | | | CENTER - | | | | | | LABORATORY | | + + + + + + | Urobilinoge | Negative | 0.2 mg/dL, 1.0 | [facility] | | | n, Urine | | mg/dL, Negative | [facility] | | | | | | MEDICAL | | | | | | CENTER - | | | | | | LABORATORY | | + + + + + + | White Blood | 0-2 | 0 - 2 /HPF | [facility] | | | Cells, | | | [facility] | | | Urine | | | MEDICAL | | | | | | CENTER - | | | | | | LABORATORY | | + + + + + + | Red Blood | 0-2 | 0 - 2 /HPF | [facility] | | | Cells, | | | [facility] | | | Urine | | | MEDICAL | | | | | | CENTER - | | | | | | LABORATORY | | + + + + + + | Squamous | 0-2 | 0 - 2 /LPF | [facility] | | | Epithelial | | | [facility] | | | Cells, | | | MEDICAL | | | Urine | | | CENTER - | | | | | | LABORATORY | | + + + + + + | Bacteria, | Negative | Negative /HPF | [facility] | | | Urine | | | [facility] | | | | | | MEDICAL | | | | | | CENTER - | | | | | | LABORATORY | | + + + + + + | Urine | Urine Culture Not | | [facility] | | | Comment | Indicated | | [facility] | | | [...] [address] | [place] | [phone] | | [facility] | | [address] | | | - LABORATORY | | | | + + + + + Drugs of Abuse, Screen, Urine (06/20/2016 11:17 PM PST) + + + + + + | Component | Value | Ref Range | Performed | Pathologist | | | | | At | Signature | + + + + + + | Amphetamine | Negative | Negative | [facility] | | | Screen, | | | [facility] | | | Urine | | | MEDICAL | | | | | | CENTER - | | | | | | LABORATORY | | + + + + + + | Barbiturate | Negative | Negative | [facility] | | | s Screen, | | | [facility] | | | Urine | | | MEDICAL | | | | | | CENTER - | | | | | | LABORATORY | | + + + + + + | Benzodiazep | Negative | Negative | [facility] | | | mayela | | | [facility] | | | Screen, | | | MEDICAL | | | Urine | | | CENTER - | | | | | | LABORATORY | | + + + + + + | Cannabinoid | Positive (A) | Negative | [facility] | | | s Screen, | | | [facility] | | | Urine | | | MEDICAL | | | | | | CENTER - | | | | | | LABORATORY | | + + + + + + | Cocaine | Negative | Negative | [facility] | | | Screen, | | | [facility] | | | Urine | | | MEDICAL | | | | | | CENTER - | | | | | | LABORATORY | | + + + + + + | Methadone | Negative | Negative | [facility] | | | Screen, | | | [facility] | | | Urine | | | MEDICAL | | | | | | CENTER - | | | | | | LABORATORY | | + + + + + + | Opiates | Negative | Negative | [facility] | | | Screen, | | | [facility] | | | Urine | | | [...] [address] | [place] | [phone] | | [facility] | | [address] | | | - LABORATORY | | | | + + + + + Influenza A and B RNA, NAAT (06/20/2016 11:06 PM PST) + + + + + + | Component | Value | Ref Range | Performed | Pathologist | | | | | At | Signature | + + + + + + | Influenza A | Negative | Negative | [facility] | | | PCR | | | [facility] | | | | | | MEDICAL | | | | | | CENTER - | | | | | | LABORATORY | | + + + + + + | Influenza B | Negative | Negative | [facility] | | | PCR | | | [facility] | | | | | | MEDICAL | | | | | | CENTER - | | | | | | LABORATORY | | + + + + + + + + | Specimen | + + | Respiratory - Entire | | nasopharynx (body | | structure) | + + + + + + + | Performing | Address | City/State/Zipcode | Phone Number | | Organization | | | | + + + + + | [facility] | [address] | [place] | [phone] | | [facility] | | [address] | | | - LABORATORY | | | | + + + + + Troponin I (06/20/2016 10:48 PM PST) + + + + + + | Component | Value | Ref Range | Performed | Pathologist | | | | | At | Signature | + + + + + + | Troponin I | <0.01Comment: Reference | <0.06 ng/mL | [facility] | | | | Ranges:0.00-0.06 = | | [facility] | | | | NORMAL>0.06 = | | MEDICAL | | | | SUSPICIOUS FOR | | CENTER - | | | | MYOCARDIAL DAMAGE NOTE: | | LABORATORY | | | | Values greater than 0.50 | | | | | | ng/mL have been shown | | | | | | to be strongly | | | | | | associated with acute | | | | | | myocardial infarction. | | | | | | The [place] [employer] | | | | | | Cardiology (ACC) | | | | | | recommends a decision | | | | | | limit of 0.06 ng/mL for | | | | | | this assay. Results | | | | | | greater than 0.06 can | | | | | | reflect a pre-infarct | | | | | | acute coronary syndrome, | | | | | | but can also reflect | | | | | | myocardial necrosis or | | | | | | injury that is not due | | | | | | to coronary artery | | | | | | disease. Some of these | | | | | | causes are sepsis, | | | | | | hypocolemia, atrial | | | | | | fibrillation, heart | | | | | | failure, pulmonary | | | | | | embolism, myocarditis, | | | | | | myocardial contusion, | | | | | | and renal failure. The | | | | | | diagnosis of myocardial | | | | | | infarction should be | | | | | | based on a combination | | | | | | of the patient's | | | | | | clinical presentation | | | | | | and the clinical | | | | | | laboratory test results | | | | | | (especially serial | | | | | | troponin levels). | | | | + + + + + + + + | Specimen | + + | Blood | + + + + + + + | Performing | Address | City/State/Zipcode | Phone Number | | Organization | | | | + + + + + | [facility] | [address] | [place] | [phone] | | [facility] | | [address] | | | - LABORATORY | | | | + + + + + Phosphorus (06/20/2016 10:48 PM PST) + +---------+ + + + | Component | Value | Ref Range | Performed | Pathologist | | | | | At | Signature | + +---------+ + + + | Phosphorus | 2.2 (L) | 2.5 - 4.6 mg/dL | [facility] | | | | [...] [address] | [place] | [phone] | | [facility] | | [address] | | | - LABORATORY | | | | + + + + + Magnesium (06/20/2016 10:48 PM PST) + +-------+ + + + | Component | Value | Ref Range | Performed | Pathologist | | | | | At | Signature | + +-------+ + + + | Magnesium | 1.8 | 1.8 - 2.5 mg/dL | [facility] [...] + | [facility] | [address] | [place] | [phone] | | [facility] | | [address] | | | - LABORATORY | | | | + + + + + Basic Metabolic Panel (06/20/2016 10:48 PM PST) + + + + + + | Component | Value | Ref Range | Performed | Pathologist | | | | | At | Signature | + + + + + + | Na | 132 (L) | 136 - 149 | [facility] | | | | | mmol/L | [facility] | | | | | | MEDICAL | | | | | | CENTER - | | | | | | LABORATORY | | + + + + + + | K | 3.3 (L) | 3.5 - 5.1 | [facility] | | | | | mmol/L | [facility] | | | | | | MEDICAL | | | | | | CENTER - | | | | | | LABORATORY | | + + + + + + | Cl | 99 | 98 - 109 mmol/L | [facility] [...] + + + | Anion Gap | 8 | 3 - 16 mmol/L | [facility] | | | | | | [facility] | | | | | | MEDICAL | | | | | | CENTER - | | | | | | LABORATORY | | + + + + + + | Glucose | 139 (H) | 70 - 109 mg/dL | [...] + + + + | Creatinine | 0.69 | 0.60 - 1.30 | [facility] | [...] mL/min/1.73m2 | [facility] | | | [place] | RATE,ESTIMATED | | MEDICAL | | | | mL/min/1.25s2Ejla than | | CENTER - | | [...] + + + + | BUN/Creatin | 18.8 | | [facility] | | | ine [...] + | [facility] | [address] | [place], [place] | [phone] | | [facility] | | [address] | | | - LABORATORY | | | | + + + + + POC Glucose (06/20/2016 10:43 PM PST) + +---------+ + + + | Component | Value | Ref Range | Performed | Pathologist | | | | | At | Signature | + +---------+ + + + | Glucose, | 154 (H) | 70 - 150 mg/dL | [address] | [place] | [phone] | | [facility] | | [address] | | | - LABORATORY | | | | + + + + + POC Glucose (06/20/2016 9:45 PM PST) + +---------+ + + + | Component | Value | Ref Range | Performed | Pathologist | | | | | At | Signature | + +---------+ + + + | Glucose, | 242 (H) | 70 - 150 mg/dL | [...] | + + + + + | [facility] | [address] | [place] | [phone] | | [facility] | | [address] | | | - LABORATORY | | | | + + + + + ECG 12 lead (06/20/2016 9:42 PM PST) + + + + + + | Component | Value | Ref Range | Performed | Pathologist | | | | | At | Signature | + + + + + + | VENTRICULAR | 86 | BPM | [facility] | | | RATE EKG | | | | | + + + + + + | ATRIAL RATE | 86 | BPM | [facility] | | + + + + + + | P-R | 164 | ms | [facility] | | [...] + + | P WAVE AXIS | 38 | degrees | [facility] | | + + + + + + | QRS AXIS | 64 | degrees | [facility] | | + + + + + + | T AXIS | 45 | degrees | [facility] | | + + + + + + | INTERPRETAT | Normal sinus | | [facility] | | | ION TEXT | rhythmNormal ECGNo | | | | | | previous ECGs | | | | | | availableConfirmed by | | | | | | HAWA RUBIN MD ([id number]) | | | | | | on 06/21/2016 7:01:48 AM | | | | | | [...] | + +---------+ + + POC Glucose (06/20/2016 8:46 PM PST) + +---------+ + + + | Component | Value | Ref Range | Performed | Pathologist | | | | | At | Signature | + +---------+ + + + | Glucose, | 408 (H) | 70 - 150 mg/dL | [...] + | [facility] | [address] | [place] | [phone] | | [facility] | | [address] | | | - LABORATORY | | | | + + + + + Extra Green Top Tube (06/20/2016 7:26 PM PST) + +-------+ + + + | Component | Value | Ref Range | Performed | Pathologist | | | | | At | Signature | + +-------+ + + + | Extra Green | Done | | [facility] | | | Top Tube | | | [facility] | | [...] + | [facility] | [address] | [place] | [phone] | | [facility] | | [address] | | | - LABORATORY | | | | + + + + + Beta Hydroxybutyrate, Quant (06/20/2016 7:25 PM PST) + + + + + + | Component | Value | Ref Range | Performed | Pathologist | | | | | At | Signature | + + + + + + | Beta | 4.90 (H) | 0.02 - 0.27 | [facility] | | | Hydroxybuty | | mmol/L | [facility] | | | rate | | [...] ST. | [address] | [place], [place] | [phone] | | [facility] | | [address] | | | - LABORATORY | | | | + + + + + Basic Metabolic Panel (06/20/2016 7:25 PM PST) + + + + + + | Component | Value | Ref Range | Performed | Pathologist | | | | | At | Signature | + + + + + + | Na | 124 (L) | 136 - 149 | [facility] | | | | | mmol/L | [facility] | | | | | | MEDICAL | | | | | | CENTER - | | | | | | LABORATORY | | + + + + + + | K | 4.9 | 3.5 - 5.1 | [facility] | [...] + + + + | Glucose | 613 (HH)Comment: | 70 - 109 mg/dL | [facility] | | | | Critical Result called | | [facility] | | | | to and read back by Amos | | MEDICAL | | | | Jordi Mota on | | CENTER - | | | | 06/20/2016 at 20:03 by | | LABORATORY | | | | Carly Barron. | | | | + + + + + + | BUN | 18 | 7 - 18 mg/dL | [facility] | | | | | | [facility] | | | | | | MEDICAL | | | | | | CENTER - | | | | | | LABORATORY | | + + + + + + | Creatinine | 1.09 | 0.60 - 1.30 | [place] | | | | | mg/dL | [facility] | | | | | | MEDICAL | | | | | | CENTER - | | | | | | LABORATORY | | + + + + + + | eGFR, | >60Comment: GLOMERULAR | >=60 | [place] | | | non- | FILTRATION | mL/min/1.73m2 | [facility] | | | [place] | RATE,ESTIMATED | | MEDICAL | | | | mL/min/1.91t2Ryxk than | | CENTER - | | [...] + + + + | BUN/Creatin | 16.5 | | [facility] | | | ine [...] + | [facility] | [address] | [place] | [phone] | | [facility] | | [address] | | | - LABORATORY | | | | + + + + + CBC no Differential (06/20/2016 7:25 PM PST) + + + + + + | Component | Value | Ref Range | Performed | Pathologist | | | | | At | Signature | + + + + + + | White Blood | 4.4 | 4.0 - 11.0 K/uL | [facility] | | | Cells | | | [facility] | | | | | | MEDICAL | | | | | | CENTER - | | | | | | LABORATORY | | + + + + + + | Red Blood | 3.65 (L) | 4.30 - 5.70 | [facility] | | | Cells | | M/uL | [facility] | | | | | | MEDICAL | | | | | | CENTER - | | | | | | LABORATORY | | + + + + + + | Hemoglobin | 12.4 (L) | 13.5 - 18.0 | [facility] | | | | | g/dL | [facility] | | | | | | MEDICAL | | | | | | CENTER - | | | | | | LABORATORY | | + + + + + + | Hematocrit | 35.5 (L) | 40.0 - 51.0 % | [facility] | | | | | | [facility] | | | | | | MEDICAL | | | | | | CENTER - | | | | | | LABORATORY | | + + + + + + | MCV | 97.3 | 83.0 - 101.0 fL | [facility] | | | | | | [facility] | | | | | | MEDICAL | | | | | | CENTER - | | | | | | LABORATORY | | + + + + + + | MCH | 33.9 | 28.0 - 35.0 pg | [facility] | | | | | | [facility] | | | | | | MEDICAL | | | | | | CENTER - | | | | | | LABORATORY | | + + + + + + | MCHC | 34.8 | 32.0 - 36.0 | [facility] | | | | | g/dL | [facility] | | | | | | MEDICAL | | | | | | CENTER - | | | | | | LABORATORY | | + + + + + + | RDW-CV | 14.0 | <15.0 % | [facility] | | | | | | [facility] | | | | | | MEDICAL | | | | | | CENTER - | | | | | | LABORATORY | | + + + + + + | Platelet | 200 | 140 - 440 K/uL | [facility] | | | Count | | | [facility] | | | | | | MEDICAL | | | | | | CENTER - | | | | | | LABORATORY | | + + + + + + | MPV | 8.1 | fL | [facility] | | | | | | [facility] | | | | | | [...] [address] | [place] | [phone] | | [facility] | | [address] | | | - LABORATORY | | | | + + + + + Extra Gold Top Tube (06/20/2016 7:25 PM PST) + +-------+ + + + | Component | Value | Ref Range | Performed | Pathologist | | | | | At | Signature | + +-------+ + + + | Extra Gold | Done | | [facility] | | | Top Tube | | | [facility] | | [...] + | [facility] | [address] | [place] | [phone] | | [facility] | | [address] | | | - LABORATORY | | | | + + + + + Extra Lavender Top Tube (06/20/2016 7:25 PM PST) + +-------+ + + + | Component | Value | Ref Range | Performed | Pathologist | | | | | At | Signature | + +-------+ + + + | Extra | Done | | [facility] | | | Lavender | | | [facility] | | | Top Tube | | [...] [address] | [place] | [phone] | | [facility] | | [address] | | | - LABORATORY | | | | + + + + + Extra Green Top Tube (06/20/2016 7:25 PM PST) + +-------+ + + + [...] + | [facility] | [address] | [place] | [phone] | | [facility] | | [address] | | | - LABORATORY | | | | + + + + + Extra Blue Top Tube (06/20/2016 7:25 PM PST) + +-------+ + + + [...] [address] | [place] | [phone] | | [facility] | | [address] | | | - LABORATORY | | | | + + + + + POC Glucose (06/20/2016 7:17 PM PST) + + + + + [...] [address] | [place] | [phone] | | [facility] | | [address] | | | - LABORATORY | | | | + + + + + documented in this encounter Visit Diagnoses + + | Diagnosis | + + | Diabetic ketoacidosis without coma associated with other specified diabetes mellitus | | (HCC) | + + | Type 2 diabetes mellitus without complication, with long-term current use of insulin | | (HCC) | + + | ADHD (attention deficit hyperactivity disorder) Attention deficit disorder with | | hyperactivity | + + | Marijuana use Cannabis abuse, unspecified | + + | Tobacco smoker | + + documented in this encounter Administered Medications + +--------+ +--------+------+------+ | Medication Order | MAR | Action | Dose | Rate | Site | | | Action | Date | | | | + +--------+ +--------+------+------+ | acetaminophen (TYLENOL) tablet | Given | 06/21/20 | 650 mg | | | | 650 mg 650 mg, Oral, EVERY 4 | | 16 2:48 | | | | | HOURS PRN, Pain, or fever >= 38.3 | | AM PST | | | | | C (101.5 F), Starting Fri | | | | | | | 06/21/16 at 0223 | | | | | | + +--------+ +--------+------+------+ +---+---+ | | | +---+---+ + +-------+ +-------+---+---+ | aspirin chewable tablet 81 mg | Given | 06/21/20 | 81 mg | | | | 81 mg, Oral, DAILY, First dose on | | 16 8:33 | | | | | 06/21/16 at 0900 | | AM PST | | | | + +-------+ +-------+---+---+ +---+---+ | | | +---+---+ + +-------+ +--------+---+---+ | atoMOXetine (STRATTERA) capsule | Given | 06/21/20 | 100 mg | | | | 100 mg (POM) 100 mg, Oral, | | 16 8:31 | | | | | DAILY, First dose on Fri06/21/16 | | AM PST | | | | | at 0900, Do not open capsule. | | | | | | | PT's OWN MED. In Pyxis patient | | | | | | | specific bin. RETURN TO PATIENT | | | | | | | AT DISCHARGE. Verified by | | | | | | | Pharmacist Lupe Tilley, [facility] | | | | | | | 06/21/2016, Do Not Open | | | | | | | Capsule., | | | | | | + +-------+ +--------+---+---+ +---+---+ | | | +---+---+ + +-------+ +-------+---+---+ | famotidine (PEPCID) tablet 20 | Given | 06/21/20 | 20 mg | | | | mg 20 mg, Oral, 2 TIMES DAILY, | | 16 5:18 | | | | | First dose on Fri06/21/16 at | | AM PST | | | | | 0515 | | | | | | + +-------+ +-------+---+---+ +---+---+ | | | +---+---+ + +-------+ +--------+---+---+ | HYDROmorphone (DILAUDID) | Given | 06/21/20 | 0.5 mg | | | | injection 0.5 mg 0.5 mg, | | 16 8:29 | | | | | Intravenous, EVERY 3 HOURS PRN, | | AM PST | | | | | Pain, Starting 06/21/16 at | | | | | | | 0223 | | | | | | + +-------+ +--------+---+---+ +---+---+ | | | +---+---+ + +-------+ +------+---+---+ | HYDROmorphone (DILAUDID) | Given | 06/20/20 | 1 mg | | | | injection 1 mg 1 mg, | | 16 9:27 | | | | | Intravenous, ONCE, Kailey 06/20/16 | | PM PST | | | | | at 2120, For 1 dose | | | | | | + +-------+ +------+---+---+ +---+---+ | | | +---+---+ + +-------+ +---------+---+ + | insulin glargine (LANTUS | Given | 06/21/20 | 9 Units | | Arm-Left | | SOLOSTAR) 100 units/mL injection | | 16 5:09 | | | Upper | | (pen) 9 Units 9 Units, | | PM PST | | | | | Subcutaneous, 2 TIMES DAILY 0800 | | | | | | | & 1800, First dose on Kailey | | | | | | | 06/20/16 at 2335, For | | | | | | | subcutaneous use only. Basal | | | | | | | (long acting) insulin., | | | | | | + +-------+ +---------+---+ + +-------+ +---------+---+ + | Given | 06/21/20 | 9 Units | | Arm-Righ | | | 16 8:27 | | | t Upper | | | AM PST | | | | +-------+ +---------+---+ + | Given | 06/21/20 | 9 Units | | Abdomen- | | | 16 1:12 | | | RLQ | | | AM PST | | | | +-------+ +---------+---+ + +---+---+ | | | +---+---+ + +-------+ +---------+---+ + | insulin lispro (humaLOG | Given | 06/21/20 | 3 Units | | Arm-Righ | | KWIKPEN) 100 units/mL injection | | 16 5:08 | | | t Upper | | (pen) 0-6 Units 0-6 Units, | | PM PST | | | | | Subcutaneous, 4 TIMES DAILY WITH | | | | | | | MEALS & NIGHTLY, First dose on | | | | | | | Kailey 06/20/16 at 2335, CORRECTION | | | | | | [...] | | | | | NPO, Daytime [phone] Use NIGHT | | | | | | | DOSE for doses scheduled: | | | | | | | HS, 3AM, Nighttime [id number], | | | | | | + +-------+ +---------+---+ + +-------+ +---------+---+ + | Given | 06/21/20 | 2 Units | | Arm-Left | | | 16 8:27 | | | Upper | | | AM PST | | | | +-------+ +---------+---+ + +---+---+ | | | +---+---+ + +-------+ +---------+---+ + | insulin lispro (humaLOG | Given | 06/21/20 | 2 Units | | Arm-Righ | | KWIKPEN) 100 units/mL injection | | 16 5:08 | | | t Upper | | (pen) 2 Units 2 Units, | | PM PST | | | | | Subcutaneous, 3 TIMES DAILY WITH | | | | | | | MEALS, First dose on Fri06/21/16 | | | | | | | at 0800, ADJUST DOSE FOLLOWS: | | | [...] | | | | | | | meal., | | | | | | + +-------+ +---------+---+ + +-------+ +---------+---+ + | Given | 06/21/20 | 2 Units | | Arm-Left | | | 16 12:54 | | | Upper | | | PM PST | | | | +-------+ +---------+---+ + | Given | 06/21/20 | 2 Units | | Arm-Left | | | 16 8:25 | | | Upper | | | AM PST | | | | +-------+ +---------+---+ + +---+---+ | | | +---+---+ + + + + +-------+---+ | insulin regular (humuLIN R, | Rate/Dos | 06/20/20 | 1.8 | 1.8 | | | novoLIN R) 1 Units/mL in sodium | e Change | 16 10:44 | Units/hr | mL/hr | | | chloride 0.9% 100 mL infusion 10 | | PM PST | | | | | Units/hr (10 mL/hr), at 10 | | | | | | | mL/hr, Intravenous, TITRATED, | | | | | | | Starting [facility] 06/20/16 at 1940 | | | | | | + + + + +-------+---+ + + + +-------+---+ | Rate/Dose Change | 06/20/20 | 3.4 | 3.4 | | | | 16 9:47 | Units/hr | mL/hr | | | | PM PST | | | | + + + +-------+---+ | Rate/Dose Change | 06/20/20 | 7.2 | 7.2 | | | | 16 8:50 | Units/hr | mL/hr | | | | PM PST | | | | + + + +-------+---+ +---+---+ | | | +---+---+ + +-------+ +---------+---+ + | pneumococcal (PNEUMOVAX 23) | Given | 06/21/20 | 0.5 mLs | | Deltoid- | | vaccine injection 0.5 mL 0.5 mL, | | 16 8:33 | | | Right | | Intramuscular, ONE TIME VACCINE, | | AM PST | | | | | 06/21/16 at 0900, For 1 | | | | | | | dose, Keep in refrigerator. Give | | | | | | | patient education information., | | | | | | + +-------+ +---------+---+ + +---+---+ | | | +---+---+ + +---------+ +--------+-------+---+ | sodium chloride 0.9% (NS) bolus | New Bag | 06/20/20 | 1,000 | 2000 | | | 1,000 mL 1,000 mL, Intravenous, | | 16 7:47 | mLs | mL/hr | | | Administer over 30 Minutes, | | PM PST | | | | | ONCE, [facility] 06/20/16 at 1940, For 1 | | | | | | | dose | | | | | | + +---------+ +--------+-------+---+ +---+---+ | | | +---+---+ + +---------+ +--------+-------+---+ | sodium chloride 0.9% (NS) bolus | New Bag | 06/20/20 | 1,000 | 2000 | | | 1,000 mL 1,000 mL, Intravenous, | | 16 8:45 | mLs | mL/hr | | | Administer over 30 Minutes, | | PM PST | | | | | ONCE, Kailey 06/20/16 at 2050, For 1 | | | | | | | dose | | | | | | + +---------+ +--------+-------+---+ +---+---+ | | | +---+---+ + +---------+ +---+-------+---+ | sodium chloride 0.9% with KCl | New Bag | 06/21/20 | | 125 | | | 20 mEq/L (NS + KCL 20) infusion | | 16 9:37 | | mL/hr | | | at 125 mL/hr, Intravenous, | | AM PST | | | | | CONTINUOUS, Starting Kailey 06/20/16 | | | | | | | at 2330 | | | | | | + +---------+ +---+-------+---+ +---------+ +---+-------+---+ | New Bag | 12/30/20 | | 125 | | | | 16 12:25 | | mL/hr | | | | AM PST | | | | +---------+ +---+-------+---+ +---+---+ | | | +---+---+ documented in this encounter
--- OUTSIDE RECORDS SUMMARY | ~2020-03-13 | XMS | Encounter Summary ---
Demographics + + + | Address | [address] | | | [place] [address] | + + + | Home Phone | | + + + | Preferred Language | Unknown | + + + | Marital Status | Single | + + + | Islam Affiliation | 1001 | + + + [...] Team Providers + +------+ + | Care Resource Manager Forester Name | Role | Phone | + +------+ + PCP | Unavailable | + +------+ + Encounter Details +--------+ + + + + | Date | Type | Department | Care Team | Description | +--------+ + + + + | 03/30/ | Hospital | [facility] | Brooke Kemp | | | 2008 | Encounter | HOSPITAL EMERGENCY | [facility] [address] | | | | | [address] | [address] [place] [place], [place] | [place] [address] | | | | | [address] | [phone] | | | | | [phone] | | | +--------+ + + + [...]
--- OUTSIDE RECORDS SUMMARY | ~2020-03-13 | XMS | Encounter Summary ---
Demographics + + + | Address | [address] | | | [place] [address] | + + + | Home Phone [...] Team Providers + +------+ + | Care Charge Authorizer Name | Role | Phone | + +------+ + PCP | Unavailable | + +------+ + Encounter Details +--------+ + + + + | Date | Type | Department | Care Team | Description | +--------+ + + + + | 02/05/ | Hospital | [facility] | Cody Kan | Diabetic | | 2016 - | Encounter | [facility] | Iglesia Mccall MD [address] | ketoacidosis without | | | | CARE FLOOR [address] | coma associated | | 02/07/ | | [address] | [place] [address] | with type 2 diabetes | | 2016 | | [place], [place] | [phone] | mellitus (HCC) | | | | [address] | | | | | | [phone] | | | +--------+ + + + [...] Date of Service: 02/08/16 0936 Status: Signed Rn Birthing: Lanre Pan MD (Physician) Related Notes: Original Note by Lanre Pan MD (Physician) filed at 02/08/16 1015 [facility] Service: Hospitalist Discharge Summary Date of Admission: [...] episodes of DKA, and recently moved to [place], [place]. The patient typically takes Lantus pens, though according to the patie nt he has not been storing them appropriately and may have left them out of the fridge for a prolonged period, and the patient indicates that he may have missed a few doses. He [facility] a few days prior to his admission. He was initially seen at [place] emergency department and diagnosed with diabetic ketoaci [...] to schedule appointment with the PCP in [place]. DISCHARGE DIAGNOSES 1. Diabetic ketoacidosis in a type 1 diabetic. 2. History of reported schizophrenia, stable. 3. History of tobaccoism. Patient was counseled on tobacco cessation. 4. Electrolyte imbalance, secondary to diabetic ketoacidosis treatment. Past Medical History Diagnosis Date Schizophrenia (HCC) 02/06/2016 Attention-deficit hyperactivity disorder, predominantly hyperactive type 02/06/2016 Depression 02/06/2016 Leukocytosis (leucocytosis) 02/06/2016 Diabetes mellitus type I ([facility]) History reviewed. No pertinent past surgical history. [...] on file. Follow up: Margarita Gonzales MD [address] [place] [address] follow up for diabetes Medication List CONTINUE [...] Date of Service: 02/08/16 1255 Status: Signed Rn Birthing: Rosario Ocampo RN (Registered Nurse) Discharge instructions given, all questions answered, patient/personal care aid expresses understa nding. Prescriptions given. IV removed. VSS. Patient left ambulatory to a private residence with family onver danie Transaction, Provider Unknown - 02/08/2016 9:52 AM PDT Case Management by Rhea Kaiser RN at 02/08/16 0952 Author: Rhea Kaiser RN Service: (none) Author Type: Registered Nurse Filed: 02/08/16 1000 Date of Service: 02/08/16 0952 Status: Addendum Rn Birthing: Rhea Kaiser RN (Registered Nurse) Related Notes: Original Note by Rhea Kaiser RN (Registered Nurse) filed at 02/08/16 0 955 Discharge Planning: contacted [facility] [place] [phone], staff noted Shilpi scott is assigned to his case, left message with call back number for counselor to contact . Discharge Planning: spoke to CM Shilpi Mirza return call, advised [facility] office will contac t patient this afternoon [...] Date of Service: 08/18/16 0640 Status: Signed Rn Birthing: Gayle Gomez RN (Registered Nurse) No changes [...] 02/07/161918 Date of Service: 02/07/161819 Status: Addendum Rn Birthing: Aracelis Strong RN (Registered Nurse) Related Notes: [...] 298. 8 units insulin administered. Currently amb [facility]. Report given to ERIKA Araujo. Aracelis Strong RN onver danie Transaction, Provider Unknown - 02/07/2016 3:27 PM PDT Case Management by Rhea Kaiser RN at 02/07/16 1527 Author: Rhea Kaiser RN Service: (none) Author Type: Registered Nurse Filed: 02/07/16 3569 Date of Service: 02/07/16 1527 Status: Addendum Rn Birthing: Rhea Kaiser RN (Registered Nurse) Related Notes: [...] (spoke with patient and with mom Blossom [phone], patient resides with mom, sleeps on the couch, patient and mom would like patient to live in assisted living ) Mental Status Oriented Power of [place] Strip Gauger No Anticipated Discharge Plan Post Acute Care [...] Home (CM will check for AFH in [facility]) Met with: CM spoke with patient and patient mother (with pt permission) to discuss discharg e planning, Pt is a 35 y.o., male, whom arrived via life flight to [facility] from [facility] due to DKA. Patient with dx of DM type I, schizophrenia. Patient resided in [facility] [place] [facility] for 5 years. Patient and patient mother Blossom [phone] would like leonardo ent to live independent of parent in [facility] or assisted living in [facility]. CM to contact Brody with [employer] in [place] for information concerning patient. Patient states he [...] care provider on file. Patient's insurance: Medicaid [facility] Coverage concerns: no Medication coverage/concerns: non compliant with DM I CBG and insulin use Community resources utilized / needed: patient is requesting senior care placement and help to get his life back on track Assistance in transportation: patient's mother will transport Blossom [phone] Identification of any specific education / training: MD ordered DM education Barriers to Discharge / Alternative housing needed: patient requests AF Anticipated DCP: patient will discharge to his mothers house. hRea Kaiser Lanre Washington MD - 02/07/2016 10:01 AM PDT Progress Notes by Lanre Pan MD at 02/07/16 1001 Author: Lanre Pan MD Service: Hospitalist Author Type: Physician Filed: 02/07/16 1542 Date of Service: 02/07/16 1001 Status: Signed Rn Birthing: Lanre Pan MD (Physician) [facility] Service: Hospitalist Progress Note Hospital Day: LOS: 1 day Post-Op Day: * No surgery found * SUBJECTIVE Patient Summary: admission H and P Dr. Kan:"The patient is a 35 y.o. male wi th significant past medical history of schizophrenia, patient states last admission to [facility] was 2 years ago, ADHD, depression, type I diabetes mellitus diagnos ed at age 4 according to the patient and about 3 episodes of admissions for DKA since he mov ed to [place]. Per Dr. Dunaway, [facility] emergency room the patient and had a couple of admissions of this year for DKA. Patient had been kicked out of the [place] had been smoking marijuan a which the patient admits. Had presented to [facility] emergency room today after a friend had [...] elayed to me by Dr. Dunaway of [facility] ER, had about a week prior to admission and the patient has been laying in the [place] for the last 4 days during nothing she medications. Per mother the patient also had lost 100 pounds since october of this year. Patient was seen at the [facility] Emergency Department, was noted to be tachycardic and tachypneic I was told initially his heart rate was in the 120s, respiration was in the mid 20s, patient was refusing to answer questions or could not answer questions according to [facility], labs showed he was in DKA, he was given 2 L of IV fluid bolus w sandra there, subsequently hospitalist and ICU attending was called at [facility] for a transfer of patient, Dr. Vega recommended giving the patient bicarbonate and potassium which was done , the patient was also in the process of being given 2 more liters of normal saline and was transferred at acute care floor in [facility]. By the time admitting hospitalist and the [...] we will transition off insulin drip over [facility] htime., Appreciate Dr. Gonzales input, Levemir 10 [...] 02/07/1641 Date of Service: 02/07/16939 Status: Signed Rn Birthing: Darcy Niño RD (Registered Dietitian) 02/07/16 0931 [...] Estimated Energy Needs Total Energy Estimated Needs 4509-0938 kcal/day Method for Estimating Needs 25-30 kcal/kg [...] Date of Service: 02/07/16 06 Status: Signed Rn Birthing: Gayle Gomez RN (Registered Nurse) No changes [...] 163 Date of Service: 02/06/161621 Status: Signed Rn Birthing: Jace Yanez RN (Registered Nurse) Pts mother, Blossom, came by hospital to see son and will head back to [place]. She stat es that pts schizophrenia started at age 19 or 20, and that pt often thinks he is other peop le (ie, [facility]), and often mixes fiction with reality. [facility] [place] [facility] the [facility] 5 years, and has been in [place] since September. Karyn muñiz has been working [...] Date of Service: 02/06/16 0849 Status: Addendum Rn Birthing: Cody Kan MD (Physician) Related Notes: Original Note by Cody aKn MD (Physician) filed at 02/07/16 1611 [facility] Service: Hospitalist Admission History & Physical Date of Admission: 02/06/2016 Requesting Physician: Gume Finn, [facility] Reason for Admission: DKA History Obtained From: patient, chart review, Quality of history: fair CHIEF COMPLAINT: DKA HISTORY OF PRESENT ILLNESS The patient is a 35 y.o. male with significant past medical history of schizophrenia, leonardo ent states last admission to [facility] was 2 years ago, ADHD, depression, type I diabetes mellitus diagnosed at age 4 according to the patient and about 3 episodes o f admissions for DKA since he moved to [place]. Per Dr. Dunaway, [facility] emergency room the patie nt and had a couple of admissions this year for DKA. Patient had been kicked out of the [place] as he had been smoking marijuana which the patient admits. Had presented to [facility] emergency room today after a friend had [...] relayed to me by Dr. Dunaway of [facility] ER, had about a week prior to admission and the leonardo ent has been laying in the couch for the last 4 days doing nothing. Per mother the patient a lso had lost 100 pounds since October of this year. Patient was seen at the [facility] Emergency Department, was noted to be tachycardic [...] hospitalist and ICU attending was called at [facility] for a transfer of patient, Dr. Vega recommended giving the patient bicarbonate and pota ssium which was done, the patient was also in the process of being given 2 more liters of no rmal saline and was transferred to acute care floor in [facility]. By the time admitting hospitalist saw the [...] sensation and reflexes throughout DATA Labs from [facility] CBC: WBCs 12.6, hemoglobin 15.9, hematocrit 45.9, [...] no acute ST-T wave changes. CXR from [facility] no pneumonia or other acute process as [...] his last admission and discharge summary from [facility] to be faxed here. heparin for deep vein thrombosis prophylaxis. L eukocytosis is probably reactive and at this point I will hold off on giving antibiotics. Schizophrenia ([facility]) (02/06/2016) Assessment: not in exacerbation Plan: should have his medications once eating and I have asked for event staff member to reconcile his medications from his pharmacy in [place] Attention-deficit hyperactivity disorder, predominantly hyperactive type Assessment:not in exacerbation Plan: will should have his medications he should not once eating and I have asked for event staff member to reconcile his medications from his pharmacy in [place] Depression Assessment: not in exacerbation Plan: should have his medications restarted once eating and I have asked for event staff member to reconcile his medications from his pharmacy in [place] I explained radiology and lab findings, plan [...] care with other providers well as Computerized Payer Specialist. Other recom mendations for management of this [...] Inpatient to Acute Care Floor Dictation software, [employer], used which may contain error for similar [...] 0735 Date of Service: 02/08/16623 Status: Signed Rn Birthing: Margarita Gonzales MD (Physician) [facility] Service: Endocrinology Follow Up Consult Note Date [...] running in the high 200s Seen by music educator yesterday. Per nursing noted, some of the below BG are postprandial as pt not cooperating with [facility] nursing staff re:planned mealtimes More awake today [...] Per outside records - pt presented to [facility] after several days of "lying on the cou ch." Pt has recently been discharged from his senior care 2/2 marijuana use. Grandmother has rece ntly . Family members thought pt was simply suffering from depression over the pa st few days. [facility], found to have pH of 6.01 on ABG and CO2 of 5. Transferred to [facility], pt has now received at least [...] negative. Past Medical History Diagnosis Date Schizophrenia ([facility]) 02/06/2016 Attention-deficit hyperactivity disorder, predominantly hyperactive type 02/06/2016 Depression 02/06/2016 Leukocytosis (leucocytosis) 02/06/2016 Diabetes mellitus type I ([facility]) History reviewed. No pertinent past surgical history. 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 Sexual Activity: [...] Orozco RN, CDE Service: (none) Author Type: Tipping Machine Operator Automatic Filed: 02/07/16 520 Date of Service: 02/07/161718 Status: Signed Rn Birthing: Luís Orozco RN, CDE (Tipping Machine Operator Automatic) Consult Orders: 1. Inpatient consult to personal development educator [[id number]] ordered by Margarita Gonzales MD at 02/06 2420 Diabetes Education Met with Patient today. Reports [...] reports he is currently living in [facility], and at times receives assistanc e from "[employer]" to help with placement/detention "They helped me get a hotel for [...] provided contact information for CDE located in [place]. Encouraged Patient to discuss Diabetes Education with [...] than 30 days. Patient was followed by [facility] Spr[facility] earlier today. Current insulin orders as per Endocr inologist recomendations. Margarita Mcduffie MD - 02/07/2016 6:29 AM PDT Consult* by Margarita Gonzales MD at 02/07/16628 Author: Margarita Gonzales MD Service: (none) Author Type: Physician Filed: 02/07/16 0725 Date of Service: 02/07/16628 Status: Signed Rn Birthing: Margarita Gonzales MD (Physician) [facility] Service: Endocrinology Follow Up Consult Note Date [...] Per outside records - pt presented to [facility] after several days of "lying on the cou ch." Pt has recently been discharged from his senior care 2/2 marijuana use. Grandmother has rece ntly . Family members thought pt was simply suffering from depression over the pa st few days. Present[facility], found to have pH of 6.01 on ABG and CO2 of 5. 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 Sexual Activity: [...] dose corrective algorithm qAC and qHS recommend music educator Remainder of patients medical conditions to [...] Date of Service: 02/06/16 1014 Status: Signed Rn Birthing: Margarita Gonzales MD (Physician) [facility] Service: Endocrinology Initial Consult Note Date of Admission: 02/06/2016 Reason for Consultation: DKA Requesting Physician: Hospitalist History Obtained From: patient, chart review CHIEF COMPLAINT: High sugars HISTORY OF PRESENT ILLNESS The patient is 35 y.o. male with significant past medical history of T1DM with recurrent DK A, Schizophrenia, depression who presents with DKA. Per outside records - pt presented to [facility] after several days of "lying on the cou ch." Pt has recently been discharged from his senior care 2/2 marijuana use. Grandmother has rece ntly . Family members thought pt was simply suffering from depression over the pa st few days. Presented to [facility], found to have pH of 6.01 on ABG and CO2 of 5. Transferred to [facility], pt has now received at least [...] insulin regimen at the appropriate time. -recommend music educator Discussed directly with attending hospitalist today [...] | | | Fingerstick | performed at [facility];[address] | | LAB | | | | [address];[place] | | | | | | [address] | | | | + + + [...] | | | Fingerstick | performed at [facility];[address] | | LAB | | | | [address];[place] | | | | | | [address] | | | | + + + [...] EXTERNAL | | | | performed at [facility], [address] | K/uL | LAB | | | | [address], | | | | | | [place] [address] | | | | + + + + + + | Non- | 3.53 (L)Comment: Testing | 4.20 - 5.70 | EXTERNAL | | | Red Blood | performed at [facility], [address] | M/uL | LAB | | | Cells | [address], | | | | | Counted | [place] [address] | | | | + + + + + + | Hemoglobin | 11.5 (L)Comment: Testing | 13.2 - 17.0 | EXTERNAL | | | | performed at [facility], [address] | g/dL | LAB | | | | [address], | | | | | | [place] [address] | | | | + + + + + + | Hematocrit, | 32.3 (L)Comment: Testing | 39.0 - 50.0 % | EXTERNAL | | | POC | performed at [facility], [address] | | LAB | | | | [address], | | | | | | [place] [address] | | | | + + + + + + | MCV | 91.6Comment: Testing | 80.0 - 100.0 fl | EXTERNAL | | | | performed at [facility], [address] | | LAB | | | [address], | | | | | | [place] [address] | | | | + + + + + + | MCH | 32.6Comment: Testing | 27.0 - 34.0 pg | EXTERNAL | | | | performed at [facility], [address] | | LAB | | | | [address], | | | | | | [place] [address] | | | | + + + + + + | MCHC | 35.6 (H)Comment: Testing | 32.0 - 35.5 | EXTERNAL | | | | performed at [facility], [address] | g/dL | LAB | | | | [address], | | | | | | [place] [address] | | | | + + + + + + | RDW-CV | 45.1Comment: Testing | 37 - 53 fl | EXTERNAL | | | | performed at [facility], [address] | | LAB | | | | [address], | | | | | | [place] [address] | | | | + + + + + + | Platelet | 218Comment: Testing | 150 - 400 K/uL | EXTERNAL | | | Count | performed at [facility], [address] | | LAB | | | Plasma | [address], | | | | | | [place] [address] | | | | + + + + + + | MPV | 7.6Comment: Testing | fl | EXTERNAL | | | | performed at [facility], [address] | | LAB | | | | [address], | | | | | | [place] [address] | | | | + + + [...] EXTERNAL | | | | performed at [facility], [address] | | LAB | | | | [address], | | | | | | [place] [address] | | | | + + + [...] [address], | | | | | | [place] [address] | | | | + + + [...] | | | | | [place] [address] | | | | + + + + + + | K | 3.2 (L)Comment: Testing | 3.5 - 4.9 | EXTERNAL | | | | performed at [facility], [address] | mmol/L | LAB | | | | [address], | | | | | | [place] [address] | | | | + + + + + + | Cl | 100Comment: Testing | 99 - 109 mmol/L | EXTERNAL | | | | performed at [facility], [address] | | LAB | | | | [address], | | | | | | [place] [address] | | | | + + + + + + | CO2 | 22 (L)Comment: Testing | 23 - 32 mmol/L | EXTERNAL | | | | performed at [facility], [address] | | LAB | | | | [address], | | | | | | [place] [address] | | | | + + + + + + | Anion Gap | 14Comment: Testing | 5 - 20 mmol/L | EXTERNAL | | | | performed at [facility], [address] | | LAB | | | | [address], | | | | | | [place] [address] | | | | + + + + + + | Glucose, | 282 (H)Comment: Testing | 65 - 99 mg/dL | EXTERNAL | | | Fasting | performed at [facility], [address] | | LAB | | | | [address], | | | | | | [place] [address] | | | | + + + + + + | BUN | 15Comment: Testing | 8 - 25 mg/dL | EXTERNAL | | | | performed at [facility], [address] | | LAB | | | [address], | | | | | | [place] [address] | | | | + + + + + + | Creatinine | 0.8Comment: Testing | 0.70 - 1.30 | EXTERNAL | | | | performed at [facility], [address] | mg/dL | LAB | | | | [address], | | | | | | [place] [address] | | | | + + + + + + | BUN/Creatin | 19Comment: Testing | | EXTERNAL | | | ine Ratio | performed at [facility], [address] | | LAB | | | | [address], | | | | | | [place] [address] | | | | + + + + + + | Calcium | 7.7 (L)Comment: Testing | 8.5 - 10.5 | EXTERNAL | | | | performed at [facility], [address] | mg/dL | LAB | | | | [address], | | | | | | [place] [address] | | | | + + + + + + | Protein, | 4.8 (L)Comment: Testing | 6.3 - 8.2 g/dL | EXTERNAL | | | Total | performed at [facility], [address] | | LAB | | | | [address], | | | | | | [place] [address] | | | | + + + + + + | Albumin | 2.3 (L)Comment: Testing | 3.6 - 5.0 g/dL | EXTERNAL | | | | performed at [facility], [address] | | LAB | | | | [address], | | | | | | [place] [address] | | | | + + + + + + | Globulin | 2.5Comment: Testing | 1.3 - 4.9 g/dL | EXTERNAL | | | | performed at [facility], [address] | | LAB | | | | [address], | | | | | | [place] [address] | | | | + + + + + + | A/G Ratio | 0.9 (L)Comment: Testing | 1.0 - 2.4 | EXTERNAL | | | | performed at [facility], [address] | | LAB | | | | [address], | | | | | | [place] [address] | | | | + + + + + + | Bilirubin | 0.2Comment: Testing | 0.1 - 1.5 mg/dL | EXTERNAL | | | Total | performed at [facility], [address] | | LAB | | | | [address], | | | | | | [place] [address] | | | | + + + + + + | ALP, | 87Comment: Testing | 35 - 115 U/L | EXTERNAL | | | External | performed at [facility], [address] | | LAB | | | | [address], | | | | | | [place] [address] | | | | + + + + + + | AST | 15Comment: Testing | 10 - 45 U/L | EXTERNAL | | | | performed at [facility], [address] | | LAB | | | | [address], | | | | | | [place] [address] | | | | + + + + + + | ALT | 17Comment: Testing | 10 - 65 U/L | EXTERNAL | | | | performed at [facility], [address] | | LAB | | | | [address], | | | | | | [place] [address] | | | | + + + [...] | | | | | | at [facility], [address] | | | | | | [address], | | | | | | [place] [address] | | | | + + + [...] | | | Fingerstick | performed at [facility];[address] | | LAB | | | | [address];[place], [place] | | | | | | [address] | | | | + + + [...] EXTERNAL | | | | performed at [facility] | | LAB | | | | [address] [facility];[place], [place] | | | | | | [address] | | | | + + + [...] EXTERNAL | | | | performed at [facility];[address] | | LAB | | | | [address];[place] | | | | | | [address] | | | | + + + [...] EXTERNAL | | | | performed at [facility];[address] | mmol/L | LAB | | | | [address];[place] | | | | | | [address] | | | | + + + + + + | K | 3.8Comment: Testing | 3.5 - 4.9 | EXTERNAL | | | | performed at [facility];[address] | mmol/L | LAB | | | | [address];[place] | | | | | | [address] | | | | + + + + + + | Cl | 99Comment: Testing | 99 - 109 mmol/L | EXTERNAL | | | | performed at [facility];[address] | | LAB | | | | [address];[place] | | | | | | [address] | | | | + + + + + + | CO2 | 21 (L)Comment: Testing | 23 - 32 mmol/L | EXTERNAL | | | | performed at [facility];[address] | | LAB | | | | [address];[place] | | | | | | [address] | | | | + + + + + + | Anion Gap | 13Comment: Testing | 5 - 20 mmol/L | EXTERNAL | | | | performed at [facility];[address] | | LAB | | | | [address];[place] | | | | | | [address] | | | | + + + + + + | Glucose, | 241 (H)Comment: Testing | 65 - 99 mg/dL | EXTERNAL | | | Fasting | performed at [facility];[address] | | LAB | | | | [address];[place] | | | | | | [address] | | | | + + + + + + | BUN | 10Comment: Testing | 8 - 25 mg/dL | EXTERNAL | | | | performed at [facility];[address] | | LAB | | | | [address];[place] | | | | | | [address] | | | | + + + + + + | Creatinine | 0.95Comment: Testing | 0.70 - 1.30 | EXTERNAL | | | | performed at [facility];[address] | mg/dL | LAB | | | | [address];[place] | | | | | | [address] | | | | + + + + + + | BUN/Creatin | 10Comment: Testing | | EXTERNAL | | | ine Ratio | performed at [facility];[address] | | LAB | | | | [address];[place] | | | | | | [address] | | | | + + + + + + | Calcium | 7.9 (L)Comment: Testing | 8.5 - 10.5 | EXTERNAL | | | | performed at [facility];888 | mg/dL | LAB | | | | [address];[place] | | | | | | [address] | | | | + + + [...] | | | | | | at [facility];[address] [place] [address] | | | | | | [facility];[place] [address] | | | | + + + [...] | | | Fingerstick | performed at [facility];[address] | | LAB | | | | [address];[place], [place] | | | | | | [address] | | | | + + + [...] EXTERNAL | | | | performed at [facility];888 | | LAB | | | | [address];[place] | | | | | | [address] | | | | + + + [...] LAB | | | | performed at [facility];[address] | | | | | | [address];[place] | | | | | | [address] | | | | + + + [...] EXTERNAL | | | | performed at [facility];888 | mmol/L | LAB | | | | [address];[place] | | | | | | [address] | | | | + + + + + + | K | 3.8Comment: SLT | 3.5 - 4.9 | EXTERNAL | | | | HEMOLYSISTesting | mmol/L | LAB | | | | performed at [facility];[address] | | | | | | [address];[place] | | | | | | [address] | | | | + + + + + + | Cl | 102Comment: Testing | 99 - 109 mmol/L | EXTERNAL | | | | performed at [facility];[address] | | LAB | | | | [address];[place] | | | | | | [address] | | | | + + + + + + | CO2 | 20 (L)Comment: Testing | 23 - 32 mmol/L | EXTERNAL | | | | performed at [facility];[address] | | LAB | | | | [address];[place] | | | | | | [address] | | | | + + + + + + | Anion Gap | 12Comment: Testing | 5 - 20 mmol/L | EXTERNAL | | | | performed at [facility];[address] | | LAB | | | | [address];[place] | | | | | | [address] | | | | + + + + + + | Glucose, | 250 (H)Comment: Testing | 65 - 99 mg/dL | EXTERNAL | | | Fasting | performed at [facility];[address] | | LAB | | | | [address];[place] | | | | | | [address] | | | | + + + + + + | BUN | 8Comment: Testing | 8 - 25 mg/dL | EXTERNAL | | | | performed at [facility];[address] | | LAB | | | | [address];[place] | | | | | | [address] | | | | + + + + + + | Creatinine | 0.83Comment: Testing | 0.70 - 1.30 | EXTERNAL | | | | performed at [facility];888 | mg/dL | LAB | | | | [address];[place] | | | | | | [address] | | | | + + + + + + | BUN/Creatin | 10Comment: Testing | | EXTERNAL | | | ine Ratio | performed at [facility];[address] | | LAB | | | | [address];[place] | | | | | | [address] | | | | + + + + + + | Calcium | 7.8 (L)Comment: Testing | 8.5 - 10.5 | EXTERNAL | | | | performed at [facility];888 | mg/dL | LAB | | | | [address];[place] | | | | | | [address] | | | | + + + [...] | | | | | | at [facility];[address] [place] [address] | | | | | | [facility];[place] [address] | | | | + + + [...] | | | Fingerstick | performed at [facility];[address] | | LAB | | | | [address];[place] | | | | | | [address] | | | | + + + [...] EXTERNAL | | | | performed at [facility] | | LAB | | | | [address];[place] | | | | | | [address] | | | | + + + [...] EXTERNAL | | | | performed at [facility] | | LAB | | | | [address] [facility];[place], [place] | | | | | | [address] | | | | + + + [...] EXTERNAL | | | | performed at [facility];888 | mmol/L | LAB | | | | [address];[place] | | | | | | [address] | | | | + + + + + + | K | 3.3 (L)Comment: Testing | 3.5 - 4.9 | EXTERNAL | | | | performed at [facility];888 | mmol/L | LAB | | | | [address];[place] | | | | | | [address] | | | | + + + + + + | Cl | 106Comment: Testing | 99 - 109 mmol/L | EXTERNAL | | | | performed at [facility];[address] | | LAB | | | | [address];[place] | | | | | | [address] | | | | + + + + + + | CO2 | 16 (L)Comment: Testing | 23 - 32 mmol/L | EXTERNAL | | | | performed at [facility];[address] | | LAB | | | | [address];[place] | | | | | | [address] | | | | + + + + + + | Anion Gap | 14Comment: Testing | 5 - 20 mmol/L | EXTERNAL | | | | performed at [facility];[address] | | LAB | | | | [address];[place] | | | | | | [address] | | | | + + + + + + | Glucose, | 340 (H)Comment: Testing | 65 - 99 mg/dL | EXTERNAL | | | Fasting | performed at [facility];[address] | | LAB | | | | [address];[place] | | | | | | [address] | | | | + + + + + + | BUN | 7 (L)Comment: Testing | 8 - 25 mg/dL | EXTERNAL | | | | performed at [facility];[address] | | LAB | | | | [address];[place] | | | | | | [address] | | | | + + + + + + | Creatinine | 0.70Comment: Testing | 0.70 - 1.30 | EXTERNAL | | | | performed at [facility];888 | mg/dL | LAB | | | | [address];[place] | | | | | | [address] | | | | + + + + + + | BUN/Creatin | 10Comment: Testing | | EXTERNAL | | | ine Ratio | performed at [facility];[address] | | LAB | | | | [address];[place] | | | | | | [address] | | | | + + + + + + | Calcium | 6.9 (L)Comment: Testing | 8.5 - 10.5 | EXTERNAL | | | | performed at [facility];888 | mg/dL | LAB | | | | [address];[place] | | | | | | [address] | | | | + + + [...] | | | | | | at [facility];[address];[place] [address] | | | | + + + [...] | | | Fingerstick | performed at [facility];888 | | LAB | | | | [address];[place] | | | | | | [address] | | | | + + + [...] | | | Fingerstick | performed at [facility];[address] | | LAB | | | | [address];[place] | | | | | | [address] | | | | + + + [...] | | | Fingerstick | performed at [facility];888 | | LAB | | | | [address];[place] | | | | | | [address] | | | | + + + [...] | | | Fingerstick | performed at [facility];[address] | | LAB | | | | [address];[place], [place] | | | | | | [address] | | | | + + + [...] EXTERNAL | | | | performed at [facility];8 | | LAB | | | | [address];[place], [place] | | | | | | [address] | | | | + + + [...] EXTERNAL | | | | performed at [facility];[address] | | LAB | | | | [address];[place], [place] | | | | | | [address] | | | | + + + [...] EXTERNAL | | | | performed at [facility];888 | mmol/L | LAB | | | | [address];[place] | | | | | | [address] | | | | + + + + + + | K | 3.1 (L)Comment: Testing | 3.5 - 4.9 | EXTERNAL | | | | performed at [facility];888 | mmol/L | LAB | | | | [address];[place] | | | | | | [address] | | | | + + + + + + | Cl | 107Comment: Testing | 99 - 109 mmol/L | EXTERNAL | | | | performed at [facility];[address] | | LAB | | | | [address];[place] | | | | | | [address] | | | | + + + + + + | CO2 | 16 (L)Comment: Testing | 23 - 32 mmol/L | EXTERNAL | | | | performed at [facility];[address] | | LAB | | | | [address];[place] | | | | | | [address] | | | | + + + + + + | Anion Gap | 13Comment: Testing | 5 - 20 mmol/L | EXTERNAL | | | | performed at [facility];[address] | | LAB | | | | [address];[place] | | | | | | [address] | | | | + + + + + + | Glucose, | 173 (H)Comment: Testing | 65 - 99 mg/dL | EXTERNAL | | | Fasting | performed at [facility];[address] | | LAB | | | | [address];[place] | | | | | | [address] | | | | + + + + + + | BUN | 7 (L)Comment: Testing | 8 - 25 mg/dL | EXTERNAL | | | | performed at [facility];[address] | | LAB | | | | [address];[place] | | | | | | [address] | | | | + + + + + + | Creatinine | 0.63 (L)Comment: Testing | 0.70 - 1.30 | EXTERNAL | | | | performed at [facility];888 | mg/dL | LAB | | | | [address];[place] | | | | | | [address] | | | | + + + + + + | BUN/Creatin | 11Comment: Testing | | EXTERNAL | | | ine Ratio | performed at [facility];[address] | | LAB | | | | [address];[place] | | | | | | [address] | | | | + + + + + + | Calcium | 7.2 (L)Comment: Testing | 8.5 - 10.5 | EXTERNAL | | | | performed at [facility];888 | mg/dL | LAB | | | | [address];[place], [place] | | | | | | [address] | | | | + + + [...] | | | | | | at [facility];[address];[place] [address] | | | | + + + [...] | | | Fingerstick | performed at [facility];8 | | LAB | | | | [address];[place] | | | | | | [address] | | | | + + + [...] | | | Fingerstick | performed at [facility];888 | | LAB | | | | [address];[place], [place] | | | | | | [address] | | | | + + + [...] | | | Fingerstick | performed at [facility];888 | | LAB | | | | [address];[place] | | | | | | [address] | | | | + + + [...] + + | Historically converted procedure from [facility] environment | EXTERNAL LAB | + [...] | | | Fingerstick | performed at [facility];[address] | | LAB | | | | [address];[place] | | | | | | [address] | | | | + + + [...] EXTERNAL | | | | performed at [facility], [address] | K/uL | LAB | | | | [address], | | | | | | [place] [address] | | | | + + + + + + | Non- | 3.17 (L)Comment: Testing | 4.20 - 5.70 | EXTERNAL | | | Red Blood | performed at [facility], [address] | M/uL | LAB | | | Cells | [address], | | | | | Counted | [place] [address] | | | | + + + + + + | Hemoglobin | 10.2 (L)Comment: Testing | 13.2 - 17.0 | EXTERNAL | | | | performed at [facility], [address] | g/dL | LAB | | | | [address], | | | | | | [place] [address] | | | | + + + + + + | Hematocrit, | 29.6 (L)Comment: Testing | 39.0 - 50.0 % | EXTERNAL | | | POC | performed at [facility], [address] | | LAB | | | | [address], | | | | | | [place] [address] | | | | + + + + + + | MCV | 93.3Comment: Testing | 80.0 - 100.0 fl | EXTERNAL | | | | performed at [facility], [address] | | LAB | | | | [address], | | | | | | [place] [address] | | | | + + + + + + | MCH | 32.0Comment: Testing | 27.0 - 34.0 pg | EXTERNAL | | | | performed at [facility], [address] | | LAB | | | | [address], | | | | | | [place] [address] | | | | + + + + + + | MCHC | 34.3Comment: Testing | 32.0 - 35.5 | EXTERNAL | | | | performed at [facility], [address] | g/dL | LAB | | | | [address], | | | | | | [place] [address] | | | | + + + + + + | RDW-CV | 46.4Comment: Testing | 37 - 53 fl | EXTERNAL | | | | performed at [facility], [address] | | LAB | | | | [address], | | | | | | [place] [address] | | | | + + + + + + | Platelet | 209Comment: Testing | 150 - 400 K/uL | EXTERNAL | | | Count | performed at [facility], [address] | | LAB | | | Plasma | [address], | | | | | | [place] [address] | | | | + + + + + + | MPV | 7.5Comment: Testing | fl | EXTERNAL | | | | performed at [facility], [address] | | LAB | | | | [address], | | | | | | [place] [address] | | | | + + + + + + | Differentia | AUTOMATEDComment: | | EXTERNAL | | | l Type | Testing performed at | | LAB | | | | [facility], [address] | | | | | | [place] | | | | | | [address] | | | | + + + + + + | % Segmented | 78.26Comment: Testing | % | EXTERNAL | | | | performed at [facility], [address] | | LAB | | | Neutrophils | [address], | | | | | | [place] [address] | | | | + + + + + + | % | 14.07Comment: Testing | % | EXTERNAL | | | Lymphocytes | performed at [facility], [address] | | LAB | | | | [address], | | | | | | [place] [address] | | | | + + + + + + | % Monocytes | 6.80Comment: Testing | % | EXTERNAL | | | | performed at [facility], [address] | | LAB | | | | [address], | | | | | | [place] [address] | | | | + + + + + + | % | 0.69Comment: Testing | % | EXTERNAL | | | Eosinophils | performed at [facility], [address] | | LAB | | | | [address], | | | | | | [place] [address] | | | | + + + + + + | % Basophils | 0.18Comment: Testing | % | EXTERNAL | | | | performed at [facility], [address] | | LAB | | | | [address], | | | | | | [place] [address] | | | | + + + + + + | Absolute | 6.75Comment: Testing | 1.90 - 7.40 | EXTERNAL | | | Segmented | performed at [facility], [address] | K/uL | LAB | | | Neutrophils | [address], | | | | | | [place] [address] | | | | + + + + + + | Absolute | 1.21Comment: Testing | 1.00 - 3.90 | EXTERNAL | | | Lymphocytes | performed at [facility], [address] | K/uL | LAB | | | | [address], | | | | | | [place] [address] | | | | + + + + + + | Absolute | 0.59Comment: Testing | 0.00 - 0.80 | EXTERNAL | | | Monocytes | performed at [facility], [address] | K/uL | LAB | | | | [address], | | | | | | [place] [address] | | | | + + + + + + | Absolute | 0.06Comment: Testing | 0.00 - 0.50 | EXTERNAL | | | Eosinophils | performed at [facility], [address] | K/uL | LAB | | | | [address], | | | | | | [place] [address] | | | | + + + + + + | Absolute | 0.02Comment: Testing | 0.00 - 0.10 | EXTERNAL | | | Basophils | performed at [facility], [address] | K/uL | LAB | | | | [address], | | | | | | [place] [address] | | | | + + + [...] EXTERNAL | | | | performed at [facility];[address] | | LAB | | | | [address];[place], [place] | | | | | | [address] | | | | + + + [...] EXTERNAL | | | | performed at [facility] | | LAB | | | | [address];[place] | | | | | | [address] | | | | + + + [...] EXTERNAL | | | | performed at [facility];[address] | mmol/L | LAB | | | | [address];[place] | | | | | | [address] | | | | + + + + + + | K | 2.9 (L)Comment: Testing | 3.5 - 4.9 | EXTERNAL | | | | performed at [facility];888 | mmol/L | LAB | | | | [address];[place] | | | | | | [address] | | | | + + + + + + | Cl | 108Comment: Testing | 99 - 109 mmol/L | EXTERNAL | | | | performed at [facility];[address] | | LAB | | | | [address];[place] | | | | | | [address] | | | | + + + + + + | CO2 | 15 (L)Comment: Testing | 23 - 32 mmol/L | EXTERNAL | | | | performed at [facility];[address] | | LAB | | | | [address];[place] | | | | | | [address] | | | | + + + + + + | Anion Gap | 14Comment: Testing | 5 - 20 mmol/L | EXTERNAL | | | | performed at [facility];[address] | | LAB | | | | [address];[place] | | | | | | [address] | | | | + + + + + + | Glucose, | 197 (H)Comment: Testing | 65 - 99 mg/dL | EXTERNAL | | | Fasting | performed at [facility];[address] | | LAB | | | | [address];[place] | | | | | | [address] | | | | + + + + + + | BUN | 8Comment: Testing | 8 - 25 mg/dL | EXTERNAL | | | | performed at [facility];[address] | | LAB | | | | [address];[place] | | | | | | [address] | | | | + + + + + + | Creatinine | 0.64 (L)Comment: Testing | 0.70 - 1.30 | EXTERNAL | | | | performed at [facility];888 | mg/dL | LAB | | | | [address];[place] | | | | | | [address] | | | | + + + + + + | BUN/Creatin | 12Comment: Testing | | EXTERNAL | | | ine Ratio | performed at [facility];[address] | | LAB | | | | [address];[place] | | | | | | [address] | | | | + + + + + + | Calcium | 7.1 (L)Comment: Testing | 8.5 - 10.5 | EXTERNAL | | | | performed at [facility];888 | mg/dL | LAB | | | | [address];[place] | | | | | | [address] | | | | + + + [...] | | | | | | at [facility];[address] | | | | | | [address];[place] [address] | | | | + + + [...] | | | Fingerstick | performed at [facility];[address] | | LAB | | | | [address];[place], [place] | | | | | | [address] | | | | + + + [...] | | | Fingerstick | performed at [facility];[address] | | LAB | | | | [address];[place] | | | | | | [address] | | | | + + + [...] | | | Fingerstick | performed at [facility];[address] | | LAB | | | | [address];[place] | | | | | | [address] | | | | + + + [...] | | | Fingerstick | performed at [facility];[address] | | LAB | | | | [address];[place] | | | | | | [address] | | | | + + + [...] EXTERNAL | | | | performed at [facility];8 | | LAB | | | | [address];[place] | | | | | | [address] | | | | + + + [...] EXTERNAL | | | | performed at [facility];[address] | | LAB | | | | [address];[place], [place] | | | | | | [address] | | | | + + + [...] EXTERNAL | | | | performed at [facility];888 | mmol/L | LAB | | | | [address];[place] | | | | | | [address] | | | | + + + + + + | K | 3.0 (L)Comment: Testing | 3.5 - 4.9 | EXTERNAL | | | | performed at [facility];888 | mmol/L | LAB | | | | [address];[place] | | | | | | [address] | | | | + + + + + + | Cl | 108Comment: Testing | 99 - 109 mmol/L | EXTERNAL | | | | performed at [facility];[address] | | LAB | | | | [address];[place] | | | | | | [address] | | | | + + + + + + | CO2 | 14 ()Comment: CALLED | 23 - 32 mmol/L | EXTERNAL | | | | TO CODY Swain RN/CATHI AT | | LAB | | | | 0134 BY MWREAD BACK | | | | | | RESULTS VERIFIEDTesting | | | | | | performed at [facility];[address] | | | | | | [address];[place] | | | | | | [address] | | | | + + + + + + | Anion Gap | 14Comment: Testing | 5 - 20 mmol/L | EXTERNAL | | | | performed at [facility];[address] | | LAB | | | | [address];[place] | | | | | | [address] | | | | + + + + + + | Glucose, | 213 (H)Comment: Testing | 65 - 99 mg/dL | EXTERNAL | | | Fasting | performed at [facility];[address] | | LAB | | | | [address];[place] | | | | | | [address] | | | | + + + + + + | BUN | 10Comment: Testing | 8 - 25 mg/dL | EXTERNAL | | | | performed at [facility];[address] | | LAB | | | | [address];[place] | | | | | | [address] | | | | + + + + + + | Creatinine | 0.70Comment: Testing | 0.70 - 1.30 | EXTERNAL | | | | performed at [facility];888 | mg/dL | LAB | | | | [address];[place] | | | | | | [address] | | | | + + + + + + | BUN/Creatin | 14Comment: Testing | | EXTERNAL | | | ine Ratio | performed at [facility];[address] | | LAB | | | | [address];[place] | | | | | | [address] | | | | + + + + + + | Calcium | 6.9 (L)Comment: Testing | 8.5 - 10.5 | EXTERNAL | | | | performed at [facility];888 | mg/dL | LAB | | | | [address];[place] | | | | | | [address] | | | | + + + [...] | | | | | | at [facility];[address] | | | | | | [address];[place] [address] | | | | + + + [...] | | | Fingerstick | performed at [facility];[address] | | LAB | | | | [address];[place], [place] | | | | | | [address] | | | | + + + [...] | | | Fingerstick | performed at [facility];[address] | | LAB | | | [address];[place] | | | | | | [address] | | | | + + + [...] | | | Fingerstick | performed at [facility];[address] | | LAB | | | | [address];[place] | | | | | | [address] | | | | + + + [...] EXTERNAL | | | | performed at [facility];[address] | | LAB | | | | [address];[place], [place] | | | | | | [address] | | | | + + + [...] EXTERNAL | | | | performed at [facility];[address] | | LAB | | | | [address];[place], [place] | | | | | | [address] | | | | + + + [...] EXTERNAL | | | | performed at [facility];888 | mmol/L | LAB | | | | [address];[place] | | | | | | [address] | | | | + + + + + + | K | 3.3 (L)Comment: Testing | 3.5 - 4.9 | EXTERNAL | | | | performed at [facility];888 | mmol/L | LAB | | | | [address];[place] | | | | | | [address] | | | | + + + + + + | Cl | 111 (H)Comment: Testing | 99 - 109 mmol/L | EXTERNAL | | | | performed at [facility];[address] | | LAB | | | | [address];[place] | | | | | | [address] | | | | + + + + + + | CO2 | 16 (L)Comment: Testing | 23 - 32 mmol/L | EXTERNAL | | | | performed at [facility];[address] | | LAB | | | | [address];[place] | | | | | | [address] | | | | + + + + + + | Anion Gap | 13Comment: Testing | 5 - 20 mmol/L | EXTERNAL | | | | performed at [facility];[address] | | LAB | | | | [address];[place] | | | | | | [address] | | | | + + + + + + | Glucose, | 125 (H)Comment: Testing | 65 - 99 mg/dL | EXTERNAL | | | Fasting | performed at [facility];[address] | | LAB | | | | [address];[place] | | | | | | [address] | | | | + + + + + + | BUN | 10Comment: Testing | 8 - 25 mg/dL | EXTERNAL | | | | performed at [facility];[address] | | LAB | | | | [address];[place] | | | | | | [address] | | | | + + + + + + | Creatinine | 0.82Comment: Testing | 0.70 - 1.30 | EXTERNAL | | | | performed at [facility];[address] | mg/dL | LAB | | | | [address];[place] | | | | | | [address] | | | | + + + + + + | BUN/Creatin | 12Comment: Testing | | EXTERNAL | | | ine Ratio | performed at [facility];[address] | | LAB | | | | [address];[place] | | | | | | [address] | | | | + + + + + + | Calcium | 6.6 (L)Comment: Testing | 8.5 - 10.5 | EXTERNAL | | | | performed at [facility];888 | mg/dL | LAB | | | | [address];[place] | | | | | | [address] | | | | + + + [...] | | | | | | at [facility];[address];[place] [address] | | | | + + + [...] | | | Fingerstick | performed at [facility];[address] | | LAB | | | | [address];[place] | | | | | | [address] | | | | + + + [...] | | | Fingerstick | performed at [facility];[address] | | LAB | | | | [address];[place] | | | | | | [address] | | | | + + + [...] | | | Fingerstick | performed at [facility];[address] | | LAB | | | | [address];[place], [place] | | | | | | [address] | | | | + + + [...] | | | Fingerstick | performed at [facility];[address] | | LAB | | | | [address];[place] | | | | | | [address] | | | | + + + [...] EXTERNAL | | | | performed at [facility];[address] | | LAB | | | | [facility];[place], [place] | | | | | | [address] | | | | + + + [...] EXTERNAL | | | | performed at [facility];[address] | | LAB | | | | [address];[place] | | | | | | [address] | | | | + + + [...] | | LAB | | | | [facility];[address] [place] [address] | | | | | | Blvd;[place] [address] | | | | + + + [...] EXTERNAL | | | | performed at [facility];888 | mmol/L | LAB | | | | [address];[place] | | | | | | [address] | | | | + + + + + + | K | 2.7 (LL)Comment: CALLED | 3.5 - 4.9 | EXTERNAL | | | | NURSING UNITREAD BACK | mmol/L | LAB | | | | RESULTS VERIFIEDIVAN K | | | | | | AT 1748 JGRTesting | | | | | | performed at [facility];[address] | | | | | | [address];[place] | | | | | | [address] | | | | + + + + + + | Cl | 110 (H)Comment: Testing | 99 - 109 mmol/L | EXTERNAL | | | | performed at [facility];[address] | | LAB | | | | [address];[place] | | | | | | [address] | | | | + + + + + + | CO2 | 15 (L)Comment: Testing | 23 - 32 mmol/L | EXTERNAL | | | | performed at [facility];[address] | | LAB | | | | [address];[place] | | | | | | [address] | | | | + + + + + + | Anion Gap | 15Comment: Testing | 5 - 20 mmol/L | EXTERNAL | | | | performed at [facility];[address] | | LAB | | | | [address];[place] | | | | | | [address] | | | | + + + + + + | Glucose, | 133 (H)Comment: Testing | 65 - 99 mg/dL | EXTERNAL | | | Fasting | performed at [facility];[address] | | LAB | | | | [address];[place] | | | | | | [address] | | | | + + + + + + | BUN | 14Comment: Testing | 8 - 25 mg/dL | EXTERNAL | | | | performed at [facility];[address] | | LAB | | | | [address];[place] | | | | | | [address] | | | | + + + + + + | Creatinine | 0.92Comment: Testing | 0.70 - 1.30 | EXTERNAL | | | | performed at [facility];888 | mg/dL | LAB | | | | [address];[place] | | | | | | [address] | | | | + + + + + + | BUN/Creatin | 15Comment: Testing | | EXTERNAL | | | ine Ratio | performed at [facility];[address] | | LAB | | | | [address];[place] | | | | | | [address] | | | | + + + + + + | Calcium | 6.5 (L)Comment: Testing | 8.5 - 10.5 | EXTERNAL | | | | performed at [facility];888 | mg/dL | LAB | | | | [facility], [place] | | | | | | [address] | | | | + + + [...] | | | | | | at [facility];[address];[place] [address] | | | | + + + [...] | | | Fingerstick | performed at [facility];8 | | LAB | | | | [address];[place] | | | | | | [address] | | | | + + + [...] | | | Fingerstick | performed at [facility];888 | | LAB | | | | [address];[place], [place] | | | | | | [address] | | | | + + + [...] | | | Fingerstick | performed at [facility];8 | | LAB | | | | [address];[place] | | | | | | [address] | | | | + + + [...] | | | Fingerstick | performed at [facility];888 | | LAB | | | | [address];[place] | | | | | | [address] | | | | + + + [...] EXTERNAL | | | | performed at [facility];88 | | LAB | | | | [address];[place], [place] | | | | | | [address] | | | | + + + [...] EXTERNAL | | | | performed at [facility];888 | | LAB | | | | [address];[place], [place] | | | | | | [address] | | | | + + + [...] | | LAB | | | | [facility];[address] [place] [address] | | | | | | Blvd;[place] [address] | | | | + + + [...] EXTERNAL | | | | performed at [facility];888 | mmol/L | LAB | | | | [address];[place] | | | | | | [address] | | | | + + + + + + | K | 3.1 (L)Comment: Testing | 3.5 - 4.9 | EXTERNAL | | | | performed at [facility];888 | mmol/L | LAB | | | | [address];[place] | | | | | | [address] | | | | + + + + + + | Cl | 113 (H)Comment: Testing | 99 - 109 mmol/L | EXTERNAL | | | | performed at [facility];[address] | | LAB | | | | [address];[place] | | | | | | [address] | | | | + + + + + + | CO2 | 7 (LL)Comment: RESULT | 23 - 32 mmol/L | EXTERNAL | | | | READ BACK BY:CHARLES Mackay6RP | | LAB | | | | AT 1340.EAPTesting | | | | | | performed at [facility];[address] | | | | | | [address];[place] | | | | | | [address] | | | | + + + + + + | Anion Gap | 23 (H)Comment: Testing | 5 - 20 mmol/L | EXTERNAL | | | | performed at [facility];[address] | | LAB | | | | [address];[place] | | | | | | [address] | | | | + + + + + + | Glucose, | 206 (H)Comment: Testing | 65 - 99 mg/dL | EXTERNAL | | | Fasting | performed at [facility];[address] | | LAB | | | | [address];[place] | | | | | | [address] | | | | + + + + + + | BUN | 18Comment: Testing | 8 - 25 mg/dL | EXTERNAL | | | | performed at [facility];[address] | | LAB | | | | [address];[place] | | | | | | [address] | | | | + + + + + + | Creatinine | 0.84Comment: Testing | 0.70 - 1.30 | EXTERNAL | | | | performed at [facility];888 | mg/dL | LAB | | | | [address];[place] | | | | | | [address] | | | | + + + + + + | BUN/Creatin | 21Comment: Testing | | EXTERNAL | | | ine Ratio | performed at [facility];888 | | LAB | | | | [address];[place] | | | | | | [address] | | | | + + + + + + | Calcium | 6.7 (L)Comment: Testing | 8.5 - 10.5 | EXTERNAL | | | | performed at [facility];888 | mg/dL | LAB | | | | [address];[place] | | | | | | [address] | | | | + + + [...] | | | | | | at [facility];[address];[place] [address] | | | | + + + [...] | | | Fingerstick | performed at [facility];888 | | LAB | | | | [address];[place], [place] | | | | | | [address] | | | | + + + [...] | | | Fingerstick | performed at [facility];888 | | LAB | | | | [address];[place] | | | | | | [address] | | | | + + + [...] EXTERNAL | | | | performed at [facility];888 | | LAB | | | | [address];[place], [place] | | | | | | [address] | | | | + + + [...] EXTERNAL | | | | performed at [facility];888 | | LAB | | | | [address];[place], [place] | | | | | | [address] | | | | + + + [...] EXTERNAL | | | | performed at [facility];888 | mmol/L | LAB | | | | [address];[place] | | | | | | [address] | | | | + + + + + + | K | 3.0 (L)Comment: Testing | 3.5 - 4.9 | EXTERNAL | | | | performed at [facility];888 | mmol/L | LAB | | | | [address];[place] | | | | | | [address] | | | | + + + + + + | Cl | 113 (H)Comment: Testing | 99 - 109 mmol/L | EXTERNAL | | | | performed at [facility];[address] | | LAB | | | | [address];[place] | | | | | | [address] | | | | + + + + + + | CO2 | 6 (LL)Comment: CALLED | 23 - 32 mmol/L | EXTERNAL | | | | RESULTSREAD BACK RESULTS | | LAB | | | | CRISTAL/KATIA Scott AT | | | | | | 1110 BY SALTesting | | | | | | performed at [facility];888 | | | | | | [address];[place] | | | | | | [address] | | | | + + + + + + | Anion Gap | 27 (H)Comment: Testing | 5 - 20 mmol/L | EXTERNAL | | | | performed at [facility];888 | | LAB | | | | [address];[place] | | | | | | [address] | | | | + + + + + + | Glucose, | 214 (H)Comment: Testing | 65 - 99 mg/dL | EXTERNAL | | | Fasting | performed at [facility];888 | | LAB | | | | [address];[place] | | | | | | [address] | | | | + + + + + + | BUN | 21Comment: Testing | 8 - 25 mg/dL | EXTERNAL | | | | performed at [facility];[address] | | LAB | | | | [address];[place] | | | | | | [address] | | | | + + + + + + | Creatinine | 0.87Comment: Testing | 0.70 - 1.30 | EXTERNAL | | | | performed at [facility];888 | mg/dL | LAB | | | | [address];[place] | | | | | | [address] | | | | + + + + + + | BUN/Creatin | 24Comment: Testing | | EXTERNAL | | | ine Ratio | performed at [facility];[address] | | LAB | | | | [address];[place] | | | | | | [address] | | | | + + + + + + | Calcium | 6.8 (L)Comment: Testing | 8.5 - 10.5 | EXTERNAL | | | | performed at [facility];888 | mg/dL | LAB | | | | [address];[place] | | | | | | [address] | | | | + + + [...] | | | | | | at [facility];[address] [place] [address] | | | | | | [facility];[place] [address] | | | | + + + [...] | | | Fingerstick | performed at [facility];888 | | LAB | | | | [address];[place] | | | | | | [address] | | | | + + + [...] | | | Fingerstick | performed at [facility];[address] | | LAB | | | | [address];[place] | | | | | | [address] | | | | + + + [...] | | LAB | | | | [facility];[address];[place] [address] | | | | + + + [...] EXTERNAL | | | | performed at [facility];888 | K/uL | LAB | | | | [address];[place] | | | | | | [address] | | | | + + + + + + | Non- | 2.80 (L)Comment: Testing | 4.20 - 5.70 | EXTERNAL | | | Red Blood | performed at [facility];888 | M/uL | LAB | | | Cells | [address];[place] | | | | | Counted | [address] | | | | + + + + + + | Hemoglobin | 9.1 (L)Comment: Testing | 13.2 - 17.0 | EXTERNAL | | | | performed at [facility];888 | g/dL | LAB | | | | [address];[place] | | | | | | [address] | | | | + + + + + + | Hematocrit, | 26.7 (L)Comment: Testing | 39.0 - 50.0 % | EXTERNAL | | | POC | performed at [facility];[address] | | LAB | | | | [address];[place] | | | | | | [address] | | | | + + + + + + | MCV | 95.4Comment: Testing | 80.0 - 100.0 fl | EXTERNAL | | | | performed at [facility];[address] | | LAB | | | | [address];[place] | | | | | | [address] | | | | + + + + + + | MCH | 32.3Comment: Testing | 27.0 - 34.0 pg | EXTERNAL | | | | performed at [facility];[address] | | LAB | | | | [address];[place] | | | | | | [address] | | | | + + + + + + | MCHC | 33.9Comment: Testing | 32.0 - 35.5 | EXTERNAL | | | | performed at [facility];888 | g/dL | LAB | | | | [address];[place] | | | | | | [address] | | | | + + + + + + | RDW-CV | 47.3Comment: Testing | 37 - 53 fl | EXTERNAL | | | | performed at [facility];[address] | | LAB | | | | [address];[place] | | | | | | [address] | | | | + + + + + + | Platelet | 190Comment: Testing | 150 - 400 K/uL | EXTERNAL | | | Count | performed at [facility];888 | | LAB | | | Plasma | [address];[place] | | | | | | [address] | | | | + + + + + + | MPV | 7.2Comment: Testing | fl | EXTERNAL | | | | performed at [facility];[address] | | LAB | | | | [address];[place] | | | | | | [address] | | | | + + + + + + | Differentia | MANUALComment: Testing | | EXTERNAL | | | l Type | performed at [facility];888 | | LAB | | | | [address];[place] | | | | | | [address] | | | | + + + + + + | Segmented | 59Comment: Testing | % | EXTERNAL | | | Neutrophils | performed at [facility];888 | | LAB | | | Manual | [address];[place] | | | | | | [address] | | | | + + + + + + | % Bands | 24Comment: Testing | % | EXTERNAL | | | | performed at [facility];888 | | LAB | | | | [address];[place] | | | | | | [address] | | | | + + + + + + | % | 2Comment: Testing | % | EXTERNAL | | | Metamyelocy | performed at [facility];[address] | | LAB | | | edilson | [address];[place] | | | | | | [address] | | | | + + + + + + | Lymphocytes | 12Comment: Testing | % | EXTERNAL | | | Manual | performed at [facility];[address] | | LAB | | | | [address];[place] | | | | | | [address] | | | | + + + + + + | Monocytes | 3Comment: Testing | % | EXTERNAL | | | Manual | performed at [facility];[address] | | LAB | | | | [address];[place] | | | | | | [address] | | | | + + + + + + | Absolute | 5.18Comment: Testing | 1.90 - 7.40 | EXTERNAL | | | Neutrophils | performed at [facility];888 | K/uL | LAB | | | | [address];[place] | | | | | | [address] | | | | + + + + + + | Bands | 2.10 (H)Comment: Testing | 0.00 - 0.20 | EXTERNAL | | | Manual | performed at [facility];888 | K/uL | LAB | | | | [address];[place] | | | | | | [address] | | | | + + + + + + | Absolute | 0.18 (H)Comment: Testing | K/uL | EXTERNAL | | | Metamyelocy | performed at [facility];[address] | | LAB | | | [address] | [address];[place] | | | | | | [address] | | | | + + + + + + | Absolute | 1.05Comment: Testing | 1.00 - 3.90 | EXTERNAL | | | Lymphocytes | performed at [facility];888 | K/uL | LAB | | | | [address];[place] | | | | | | [address] | | | | + + + + + + | Absolute | 0.26Comment: Testing | 0.00 - 0.80 | EXTERNAL | | | Monocytes | performed at [facility];888 | K/uL | LAB | | | | [address];[place] | | | | | | [address] | | | | + + + + + + | Platelet | ADEQUATEComment: Testing | | EXTERNAL | | | Estimate | performed at [facility];[address] | | LAB | | | | [address];[place] | | | | | | [address] | | | | + + + + + + | RBC | NORMALComment: Testing | | EXTERNAL | | | Morphology | performed at [facility];[address] | | LAB | | | | [address];[place] | | | | | | [address] | | | | + + + [...] | | | | | performed at [facility];[address] | | | | | | [address];[place], [place] | | | | | | [address] | | | | + + + [...] | | | | | performed at [facility];[address] | | | | | | [address];[place], [place] | | | | | | [address] | | | | + + + [...] | EXTERNAL | | | A1c | Turkmen Diabetes | | LAB | | | [...] | | | | | performed at [facility], [address] | | | | | [address] [facility], | | | | | | [place] [address] | | | | + + + [...] | | | | | performed at [facility], [address] | | | | | | [facility], | | | | | | [place] [address] | | | | + + + [...] | | | | | performed at [facility];888 | | | | | | [address];[place] | | | | | | [address] | | | | + + + [...] | | | | | performed at [facility];[address] | | | | | | [address];[place] | | | | | | [address] | | | | + + + [...] | | | | | performed at [facility];[address] | | | | | | [address];[place] | | | | | | [address] | | | | + + + [...] | | | | | performed at [facility];[address] | | | | | | [address];[place] | | | | | | [address] | | | | + + + [...] | | | | | performed at [facility];[address] | | | | | | [address];[place] | | | | | | [address] | | | | + + + + + + | BUN | 15Comment: POOR QUALITY | 8 - 25 mg/dL | EXTERNAL | | | | SPECIMEN FROM THE LINE | | LAB | | | | DRAW, CHARGES CREDITED, | | | | | | PATIENT REDRAWN.Testing | | | | | | performed at [facility];[address] | | | | | | [address];[place] | | | | | | [address] | | | | + + + [...] | | | | | performed at [facility];[address] | | | | | | [address];[place] | | | | | | [address] | | | | + + + + + + | BUN/Creatin | 26Comment: POOR QUALITY | | EXTERNAL | | | ine Ratio | SPECIMEN FROM THE LINE | | LAB | | | | DRAW, CHARGES CREDITED, | | | | | | PATIENT REDRAWN.Testing | | | | | | performed at [facility];[address] | | | | | | [address];[place] | | | | | | [id number] ON 02/05 | | | | | [...] | | | | | | at [facility];[address] | | | | | | [facility];[place] [address] | | | | + + + [...] | | | Fingerstick | performed at [facility];8 | | LAB | | | | [address];[place] | | | | | | [address] | | | | + + + [...]
--- OUTSIDE RECORDS SUMMARY | ~2020-03-13 | XMS | Encounter Summary ---
Demographics + + + | Address | [address] | | | [place] [address] | + + + | Home Phone [...] Team Providers + +------+ + | Care Printing Specialist Name | Role | Phone | + +------+ + PCP | Unavailable | + +------+ + Encounter Details +--------+ + + + + | Date | Type | Department | Care Team | Description | +--------+ + + + + | 04/07/ | Hospital | [facility] | Ami Young | | | 2008 | Encounter | CONVERSION | A, [facility] [address] | | | | | DEPART[address] | [address] [employer], [place] | | | | [address] | [address] | | | | | [place], [place] | [phone] | | | | | [address] | | | | | | [phone] | | | +--------+ + + + [...]
--- OUTSIDE RECORDS SUMMARY | ~2020-03-13 | XMS | Encounter Summary ---
Demographics + + + | Address | [address] | | | [place] [address] | + + + | Home Phone [...] Team Providers + +------+ + | Care Personal Lines Account Executive Name | Role | Phone | + [...] + + | 03/02/ | Emergency | [facility] | Izabela Scott, | Localized bacterial | | 2019 - | | MEDICAL CENTER | MD [address] | skin infection | | | | EMERGENCY CENTER | [place] [address] | (Primary Dx); | | 03/03/ | | [address] | [phone] | Hyperglycemia; | | 2019 | | [place], [place] | | Essential | | | | [address] | | hypertension | | | | [phone] | | | +--------+ + + + [...] Care Everywhere.Staph Skin Infe ction, Possible MRSA (Syriac)documented in this encounter Medications at Time of [...] might be different fr om the original. [facility] Department of Emergency Medicine No flowsheet data [...] file Gets together: Not on file Attends buddhism service: Not on file Active member of [...] 1 g (0 g Intravenous Stopped 03/02/20 5003) sodium chloride 0.9% (NS) bolus 1,000 mL [...] Value Ref Range Date/Time Comprehensive Metabolic Panel [[id number]] (Abnormal) Collected: 03/02/202209 Order Status: Completed Specimen: [...] Estimated GFR >60 >60 mL/min/1.73m2 C-Reactive Protein [[id number]] (Abnormal) Collected: 03/02/202209 Order Status: Completed Specimen: Blood Updated: 03/02/202311 CRP 4.0 <0.5 mg/dL CBC with Differential [[id number]] (Abnormal) Collected: 03/02/202209 Order Status: Completed Specimen: [...] soon as possible for a visit with [facility]. Specialty: Family Medicine Contact information: [address] [facility] [address] [facility]. Specialty: Emergency Medicine Why: If symptoms worsen Contact information: [address] [facility] [address] Procedures: Procedures Attending Provider Note: IIzabela MD personally performed the services described in this documentation, as scribed by Izablea Scott MD in my presence, and it [...] J?MRN: | | | | | | [id number] | | | [id number] | | | riteri | | | [...] | | | St. | | | [place] | | | y | | | [...] | | | St. | | | [place] | | | y | | | [...] | | | St. | | | [place] | | | y | | | [...] | | | St. | | | [place] | | | y | | | [...] | | | St. | | | [place] | | | y | | | [...] | | | ags | | | [place] | | | ED | | | Dispar | | | ity | | | Measur | | | e - | | | [place] | | | has | | | [...] | | | s. | | | [place] | | | | | | Health [...] | | | By: | | | [place] | | | | | | Health [...] | | | St. | | | [place] | | | y | | | [...] | | | St. | | | [place] | | | y H. | | [...] | | | St. | | | [place] | | | y H. | | [...] | | | St. | | | [place] | | | y H. | | [...] otitis | | | | | | manager integration | | | a, | | | [...] | | | St. | | | [place] | | | y H. | | [...] | | | St. | | | [place] | | | y H. | | [...] | | | St. | | | [place] | | | y H. | | [...] | | | St. | | | [place] | | | y H. | | [...] | | | St. | | | [place] | | | y H. | | [...] | | | St. | | | [place] | | | y H. | | [...] | | | St. | | | [place] | | | y H. | | [...] | | | [place] | | | Supervisor Evaporator | | | al | | | [...] | | MD | | | Supervisor Evaporator | | | al | | | [...] [facility] | | | | performed at [facility] [place];[address] | | LABORATORY | | | | [address];[place] | | | | | | [address] | | | | + + + + + + + + | Specimen | + + | Blood | + + + + + + + | Performing | Address | City/State/Zipcode | Phone Number | | Organization | | | | + + + + + | [facility] | [address] | [place] [address] | [phone] | + + + + + Comprehensive [...] | | | | | performed at [facility] [place];[address] | | | | | | [address];[place], [place] | | | | | | [address] | | | | + + + + + + + + | Specimen | + + | Blood | + + + + + + + | Performing | Address | City/State/Zipcode | Phone Number | | Organization | | | | + + + + + | [facility] | [address] | [place] [address] | [phone] | + + + + + CBC [...] | | | Absolute | performed at [facility] [place];888 | K/uL | LABORATORY | | | | [address];[place] | | | | | | [address] | | | | + + + + + + + + | Specimen | + + | Blood | + + + + + + + | Performing | Address | City/State/Zipcode | Phone Number | | Organization | | | | + + + + + | [facility] | [address] | [place] [address] | [phone] | + + + + + documented [...]
--- OUTSIDE RECORDS SUMMARY | ~2020-03-13 | XMS | Encounter Summary ---
Demographics + + + | Address | [address] | | | [place] [address] | + + + | Home Phone | | + + + | Preferred Language | Unknown | + + + | Marital Status | Single | + + + | Restorationist Affiliation | 1001 | + + + | Race | White | + + + | Ethnic Group | Not or | + + + Author + + + | Author | [facility] | | | and Ryana | + + + | Organization | 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
--- OUTSIDE RECORDS SUMMARY | ~2020-03-13 | XMS | Clinical Summary ---
Demographics + + + | Address | [address] | | | [place] [address] | + + + | Home Phone [...] Team Providers + +------+ + | Care Combination Machine Tool Operator Name | Role | [...] | 0 | 02/21 | 02/22 | Activ | | sulfamethoxazole-tri | mouth 2 times daily | tablet | | 07/12 | 20 | e | | methoprim (BACTRIM | for 10 days. | | | 20 | 20 | | | DS) 800-160 mg per | | | | | | | | tablet | | | | | | | + + + +---------+------+------+-------+ | | Take 1 tablet by | 20 | 0 | 09/1 | 09/2 | Activ | | sulfamethoxazole-tri | mouth 2 times daily | tablet | | 07/12 | 07/12 | e | | methoprim (BACTRIM | for 10 days. | | | 20 | 20 | | | DS) 800-160 mg per | | | | | | | | tablet | | | | | | | + + + +---------+------+------+-------+ | mupirocin | apply to affected | 30 g | 0 | / | 02/21 | Expir | | (BACTROBAN) 2% | area 3 times. | | | 07/12 | 12/10 | ed | | ointment | | | | 20 | 20 | | + + + +---------+------+------+-------+ Active [...] bacterial | | 2019 - | | | MD | skin infection | | | | | | (Primary Dx); | | 03/03/ | | | | Hyperglycemia; | | [...] | 17, | | | | | 08/16/20 | | | | | 16 | [...] | | n - | | | 09/10/ | | | 2020 | | | 9:29 | | | [...] J?MRN: | | | | | | [id number] | | | [id number] | | | riteri | | | [...] | | | St. | | | [place] | | | y | | | [...] | | | St. | | | [place] | | | y | | | [...] | | | St. | | | [place] | | | y | | | [...] | | | St. | | | [place] | | | y | | | [...] | | | St. | | | [place] | | | y | | | [...] | | | ags | | | [place] | | | ED | | | Dispar | | | ity | | | Measur | | | e - | | | [place] | | | has | | | [...] | | | s. | | | [place] | | | | | | Health [...] | | | By: | | | [place] | | | | | | Health [...] | | | St. | | | [place] | | | y | | | [...] | | | St. | | | [place] | | | y H. | | [...] | | | St. | | | [place] | | | y H. | | [...] | | | St. | | | [place] | | | y H. | | [...] otitis | | | | | | film editor | | | a, | | | [...] | | | St. | | | [place] | | | y H. | | [...] | | | St. | | | [place] | | | y H. | | [...] | | | St. | | | [place] | | | y H. | | [...] | | | St. | | | [place] | | | y H. | | [...] | | | St. | | | [place] | | | y H. | | [...] | | | St. | | | [place] | | | y H. | | [...] | | | St. | | | [place] | | | y H. | | [...] | | | [place] | | | Cyl[employer] | | | al | | | [...] | | | MD | | | Cylinder Inspector And Tester | | | al | | | [...] | | | Absolute | performed at [facility];[address] | LABORATORY | | | | [address];[place], [place] | | | | | | [address] | | | | + + + + + + + + | Specimen | + + | Blood | + + + + + + + | Performing | Address | City/State/Zipcode | Phone Number | | Organization | | | | + + + + + | [facility] | [address] | [place] [address] | [phone] | + + + + + C-Reactive Protein (03/02/2020 10:10 PM PDT) + + + + + + | Component | Value | Ref Range | Performed | Pathologist | | | | | At | Signature | + + + + + + | CRP | 4.0 (H)Comment: Testing | <0.5 mg/dL | [facility] | | | | performed at [facility];[address] | LABORATORY | | | [address];[place] | | | | | | [address] | | | | + + + + + + + + | Specimen | + + | Blood | + + + + + + + | Performing | Address | City/State/Zipcode | Phone Number | | Organization | | | | + + + + + | [facility] | [address] | [place] [address] | [phone] | + + + + + Comprehensive [...] 13 | 10 - 65 U/L | [place] | | | | | | LABORATORY [...] | | | | | | MDRD IDID traceable | | | | | | equation.Testing | | | | | | performed at [facility];[address] | | | | | | [facility];[place], [place] | | | | | | [address] | | | | + + + + + + + + | Specimen | + + | Blood | + + + + + + + | Performing | Address | City/State/Zipcode | Phone Number | | Organization | | | | + + + + + | [facility] | [address] | [place] [address] | [phone] | + + + + + from [...] | [employer] | [employer] | [id number] | 01/22/20 | [phone] | | [employer] | | MEDICAID HMO | HEALTH | | 16-Pre | 1 | | id | | | MDCD | | sent | | | | | | [place] | | | | | | + +--------+ +--------+ +---------+--------+ | [employer] | [employer] | [id number] | 05/17/ | [phone] | | [employer]ica | | MEDICAID HMO [...] Person | Self | [birth year] | | [address] | | [place] | al/Fam | | 1981 | [phone] | [address] [place], [place] | | | lisa | | | 9 (Home) | [address] | + +--------+ +--------+ + + | Joni Kwon | Person | Self | [birth year] | | [address] | | [place] | al/Fam | | 1980 | [phone] | [address] [place], [place] | | | lisa | | | 9 (Home) | [address] | + +--------+ +--------+ + + | Joni Kwon | Mental | Self | [birth year] | | [address] | | Kevin | | | 1981 | [phone] | [address] [place], [place] | | | Health | | | 9 (Home) | [address] | + +--------+ +--------+ + + | Joni Kwon | Person | Self | [birth year] | | [address] | | Kevin | al/Fam | | 1980 | [phone] | [address] [place], [place] | | | lisa | | | 9 (Home) | [address] | + +--------+ +--------+ + + Advance Directives + + + + + | Type | Date Recorded | Patient | Explanation | | | | Newsperson | | + + + + + | Power of | | | | | Oil Well Cable Tool Operator | | | | + + + [...]
--- OUTSIDE RECORDS SUMMARY | ~2020-03-13 | XMS | Encounter Summary ---
Demographics + + + | Address | [address] | | | [place] [address] | + + + | Home Phone [...] + + + | Author | [facility] | | | and Ryana | + + + | Organization | [facility] | | [...] Team Providers + +------+ + | Care House Worker General Name | Role | Phone | + +------+ + PCP | Unavailable | + +------+ + Encounter Details +--------+ + + + + | Date | Type | Department | Care Team | Description | +--------+ + + + + | 09/07/ | Hospital | [facility] | Kevin Ricci | | | 1999 - | Encounter | [facility] [address] MD [address] | | | | | [place], [place] | [place], [place] | | | 09/09/ | | [id number] | [id number] | | | 1999 | | [phone] | | | +--------+ + + + [...]
--- OUTSIDE RECORDS SUMMARY | ~2020-03-13 | XMS | Encounter Summary ---
Demographics + + + | Address | [address] | | | [place] [address] | + + + | Home Phone [...] Author + + + | Author | [facility] | | | and Ryana | + + + | Organization | [facility] | | [...] Team Providers + +------+ + | Care Sash Installer Name | Role | Phone | + +------+ + PCP | Unavailable | + +------+ + Encounter Details +--------+ + + + + | Date | Type | Department | Care Team | Description | +--------+ + + + + | 08/23/ | Hospital | [facility] | Shivam Bustos MD | | | 2003 | Encounter | [address] | [address] | | | | | [place], [place] | [facility] | | | | | [address] | [place] [address] | | | | | [phone] | | | +--------+ + + + [...]
--- OUTSIDE RECORDS SUMMARY | ~2020-03-13 | XMS | Encounter Summary ---
Demographics + + + | Address | [address] | | | [place] [address] | + + + | Home Phone [...] Team Providers + +------+ + | Care Field Map Editor Name | Role | Phone | + +------+ + PCP | Unavailable | + +------+ + Encounter Details +--------+ + + + + | Date | Type | Department | Care Team | Description | +--------+ + + + + | 12/18/ | Hospital | [facility] | Mohsen Carranza | | | 1999 | Encounter | [facility] [address] Need updated | | | | | [place] | address | | | | | [address] | | | | | | [phone] | | | +--------+ + + + [...]
--- OUTSIDE RECORDS SUMMARY | ~2020-03-13 | XMS | Encounter Summary ---
Demographics + + + | Address | [address] | | | [place] [address] | + + + | Home Phone [...] Team Providers + +------+ + | Care Buggy Operator Name | Role | Phone | + +------+ + PCP | Unavailable | + +------+ + Encounter Details +--------+ + + + + | Date | Type | Department | Care Team | Description | +--------+ + + + + | 04/21/ | Hospital | [facility] | Abhi Berger | | | 1999 - | Encounter | [place] [address] | MD [address] | | | | | [place], [place] | [place], [place] | | | 04/22/ | | [address] | [address] | | | 1999 | | [phone] | | | +--------+ + + + [...]
--- OUTSIDE RECORDS SUMMARY | ~2020-03-13 | XMS | Encounter Summary ---
Demographics + + + | Address | [address] | | | [place] [address] | + + + | Home Phone [...] Team Providers + +------+ + | Care Interface Developer Name | Role | Phone | [...] + + | 05/17/ | Hospital | [facility] | Espinoza, | Schizophrenia, | | 2019 - | Encounter | [facility] | DO Benjamin [address] | unspecified type | | | | CARE FLOOR [address] | [address] | ([facility]) (Primary Dx); | | 05/21/ | | [address] | [place] [address] | Acute psychosis | | 2019 | | [place], [place] | [phone] | (HCC); Marijuana | | | | [address] | | use; Nausea and | | | | [phone] | Tacos Brian MD | vomiting in adult; | | | | | [address] | Noncompliance with | | | | | [place], [place] | medication regimen; | | | | | [address] | Tobacco smoker | | | | | [phone] | within last 12 | | | | | | months; Type 1 | | | | | Tacos Paredes PA | diabetes mellitus | | | | | [address] | without complication | | | | | [place] [address] | (HCC); | | | | | [phone] | Schizoaffective | | | | | | disorder, bipolar | | | | | Hosea Watson, | type (HCC); Acute | | | | | [address] [facility] | hyperkalemia | | | | | [place] [address] | | | | | | [phone] | | | | | | | | | | | | Cony Castillo, | | | | | | [address] [facility] | | | | | | [place] [address] | | | | | | [phone] | | | | | | | [...] might be different f rom the original. [facility]: Hospitalist Discharge Summary Date of [...] s morning. The patient was accepted to [facility] for further treatment. The [...] mg by mouth as needed for Nicotine Web Software Engineer ving. Chew and tuck 1 piece every [...] STRATTERA DULoxetine [address] capsule aka: HARIMBALTA glucose blood test strips strip insulin lispro [...] disc harge summary. Hosea Watson MD 05/21/2019 docuethan jenkins in this encounter Medications at Time [...] episodes and medications adjusted prior to patient ledarien ng. Report given to [facility]. Security came and gave patient back his belongings. Patient sent ina dora home with his mother. No other concerns noted. [facility] here to take patient to [facility]. Elisa Mendez RN 5:41 PM Elisa Marquez RN - 1 07/21/2018 5:15 PM PSTPatient's blood sugar 66. Waiting on food to arrive. [place] juice and doyle crackers given. Patient's dinner arrived. [facility] here but needing to get blood sugar sta bilized before transport. Elisa Mendez RN 5:16 PM Elisa Marquez RN - 1 07/21/2018 2:20 PM PSTNurse from [facility] [place] called to get update on patient. Nurse [...] this note might be different from the [facility] Service: Hospitalist Progress Note Hospital Day: LOS: [...] Status: Full Code Hosea Watson MD 05/21/2019 anessa, Gonzalo Cervantes RN - 05/20/2019 7:19 PM [...] Kirkland MD - 05/20/2019 12:18 PM PST [facility]: Hospitalist Progress Note Hospital Day: [...] Kirkland MD - 05/19/2019 2:57 PM PST [facility]: Hospitalist Progress Note Hospital Day: [...] Status: Full Code Hosea Watson MD 05/19/2019 dorickie d in this encounter H&P Notes Cony [...] his mother after he walked out of [facility] ED for same problems. He expressed suicidal [...] today. Will resume his long acting in [facility] and place on [facility]. 3. Tobacco use- [...] "You have chosen to receive care thro [facility] the use of telemedicine. Telemedicine enables health care providers at different locatio ns to provide safe, effective, and convenient care through the use of technology. As with an y health care service, there are risks associated with the use of telemedicine including, bu t not limited to, equipment failure, poor image resolution, and geospatial information scientist issues. " The following questions were asked [...] Reason for Consult: Patient detained Originating Site: [facility] ([place]) Referral: Patient is referred by Hosea Watson MD. History obtained from: Chart review, Referring MD and CM Communication limitations noted:Ac uity of illness and Mental status Chief Complaint: "I don't want to talk" HPI: The patient was sedated and uncooperative upon attempted interview. Attempted to enga ge the patient multiple times. division manager return to patient room after my [...] suicidal ideation and a form of Capgras delrachelo n on the phone with her. Patient was brought to [facility]. However, the pat kathleen left that emergency department. The patient's mother picked him up and brought him to [facility]. The patient was evaluated, found to have [...] the patient has not been taking his [facility] medications as prescribed. KELLY.Also notes that the [...] negative. Past Psychiatric History: Inpatient treatment: See [facility] psychiatry discharge summary from 09/09/2013 for admi ssion spanning 07/14-09/09/2013; patient "under guardianship" at that time. Patient admitted with uncontrolled type 1 diabetes mellitus and severe, decompensated schizoaffective disorde r, bipolar type. Discharge summary notes, "Patient with schizoaffective disorder. He has be en in the [facility] hospital systems in the past including [facility] and [place]. Currently fol lowed through [facility]. Dr. Cardenas is his psychiatrist." Outpatient treatment: Per KELLY: "Care Coordination: Please call [facility] CM team if pt. presents to the ED Janeth MARTINEZ/TIMOTHY or Rin dexter RN [phone] Please be aware pt. is not currently taking any of his MH medications. PT. is also involved in the ACT team through [employer] . These are guidelines and the provider should exercise clinical judgment when providing care . ED Care Guidelines from [facility] Last Updated: 12/28/18 10:15 AM Care Coordination: Currently engaged in mental health services with the ACT Team at [facility].? Please contact [facility] with mental health concerns.? Ayla/Presley Anguiano: [phone]? These are guidelines and the provider should [...] mg by mouth as needed for Nicotine Web Software Engineer ving. Chew and tuck 1 piece every [...] mg, 650 mg, Oral, Q4H PRN, Cony Castillo MD albuterol 2.5 mg/3 mL nebulizer solution [...] delusions or obsessions during my interview; however, [facility] record suggests Capgras-like delusion and delusions [...] Unable to assess (see above). Safety Assessments: Chester-Suicide Severity Rating Scale (C-SSRS) Admit/Consult Screen 1. [...] the assessment was de rived from the Chester-Suicide Severity Rating Scale, the SAFE-T, best available [...] psychiatric hospitalization. The patient has a patient's safety associate. We are attempting to optimize psychiatric treatment. Homicide/Violent Behavior Risk Assessment: Unable to assess for the presence or absence of homicidal ideation, violent preoccupations, or other violent thoughts/behavioral patterns du e to the aforementioned sedation and uncooperativeness. The patient is currently hospitaliz ed, detained, and has a patient's safety associate. We are attempting to optimize the patie [...] patient is detained. Continue one-to-one patient monitor/patient's safety associate. -Do not restart atomoxetine or any of [...] hesi frankel to call us through the Project Playlist if you have questions. MDM Statement: Moderate. [...] be met or exceeded. Electronically signed by: Abelardo Rdz MD 05/20/2019 7:46 AM CONFIDENTIAL: DO NOT COPY WITHOUT WRITTEN PERMISSION TO RELEASE MENTAL HEALTH RECORDS documented in this encounter ED Notes Karan Dominguez, RN - 05/19/2019 10:38 AM PSTPt sleeping. [...] from cafeteria for patient. Will continue to [facility]. Marbin Vance RN - 05/18/2019 12:54 PM PSTPt resting in bed and being cooperative at this time. He has been gi val lunch and juice. Blood sugar is elevated. Dr. Brian notified. Pt has normal respirations . Good color. He is ambulatory around room. Electronically signed by Marbin Weir RN at 12:55 PM Marbin Vance RN - 05/18/2019 10:29 AM PSTPt was speaking with a crisis rep when all of a sudden he became extremely disruptive, threatening staff, and throwing th ings at crisis aircraft sales representative. Pt broke a chair in the room and through his food on the floo r. Pt is resting in bed; security and [employer] at bedside. Pt is cooperating with staff at [facility] e. Will continue to monitor. When Pt had his outburst he started stating that "things were in his mind." Aditi Joseph RN - 05/18/2019 10:20 A M PSTCrisis at bedside. Pt verbally aggressive and throwing food tray at crisis employee. Co guerrero called. Dr. Brian, security and ERIKA [...] Josh Perez RN - 05/18/2019 9:09 AM PSTColumbus anesthesiology tech has contacted crisis, the pt is next to be seen. Latosha Perez RN - 05/18/2019 9:02 [address] PSTDr. Brian informed the pt is requesting to eat. The pt takes a long acting insulin and uses a sliding scale. He is unable to provide specifics as to what the name of his medication is, and the amount of insulin he takes. Yanelis Barahona RN - 05/18/2019 4:26 AM PS TInformation faxed to crisis. 4:2 6 AM Natividad Hernandez Technologist - 05/18/2019 4:25 AM PSTBlood Glucose Result of 172 at 0349. Codie Barahona RN - 05/17/2019 11:54 PM PSTRT contacted regarding VBG Shalonda Moon RN - 05/17/2019 11: 02 PM PSTMothers name is beto, her number is [id number] signed by Shalonda Ocampo RN at 05/17/2019 11:02 PM Red Shalonda Varela RN - 2018 11:02 PM PSTDr kvng. WALLACEP, [employer] at bedside. Red, Shalonda Varela RN - 05/17/2019 11:02 PM PSTInterventions for ldajqia-wlza-qgballvz risk patients 1. Initiated suicide precautions and placed a suicide precautions order 2. Patient has 1:[address] at all times. 3. Completed an environmental risk assessment form 4. Removed patient belongings from room 5. Will use paper products for meal trays. 6. Completed C-SSRS suicide screen flow sheet 7. Will document on the suicide-psych observation flowsheet every [address], DO - 05/17/2019 10:42 PM PST [facility] Department of Emergency Medicine 10:42 PM History [...] for him and they took him to [facility]. She reports he walked out of [...] skin 3 times daily (with meals). 05/03/17 eKvin Giffodr MD insulin lispro (HUMALOG KWIKPEN) 100 units/mL [...] file Gets together: Not on file Attends methodist service: Not on file Active member of [...] sore throat CV/Resp: Negative for chest pain, pshergyta-qx-pblcnz GI: Negative for abdominal pain, nausea, vomiting, [...] like ly not very compliant with management. Hmqzh-lm-zydw glucose significant elevated. Will ev aluate for [...] on exam. No neurologic deficits to suggest APPLICATION SOFTWARE ENGINEER mass. The patient di d not endorse [...] 20 mg (20 mg Intramuscular Given 05/17/19 3518) sodium chloride 0.9% (NS) bolus 2,000 mL (2,000 mLs Intravenous New Bag 05/17/19 2340) insulin regular (humuLIN R, novoLIN R) injection 10 Units (10 Units Intravenous Given 05/18 7968) sodium chloride 0.9% (NS) bolus 1,000 mL (1,000 mLs Intravenous New Bag 05/18/19 0237) Records Reviewed Old medical records. Nursing notes. Laboratory Evaluation Results Procedure Component Value Ref Range Date/Time Blood gas, Venous [[id number]] (Abnormal) Collected: 05/18/19 0001 Order Status: Completed [...] Abdiel Test not indicated CBC with Differential [[id number]] Collected: 05/17/19 2253 Order Status: Completed Specimen: Blood Updated: 05/18/19 [...] 0.00 - 0.10 K/uL Comprehensive Metabolic Panel [[id number]] (Abnormal) Collected: 05/17/192253 Order Status: Completed Specimen: [...] U/L Estimated GFR >60 >60 mL/min/1.73m2 Ethanol [[id number]] Collected: 05/17/192253 Order Status: Completed Specimen: Blood Updated: 05/17/192335 ALCOHOL, SERUM/PLASMA <10 <10 mg/dL Salicylate Level [[id number]] Collected: 05/17/192253 Order Status: Completed Specimen: Blood Updated: 05/17/192335 Salicylate, mg/dL <3.0 2.8 - 20.0 mg/dL TSH [[id number]] Collected: 05/17/192253 Order Status: Completed Specimen: Blood Updated: 05/17/192335 TSH 1.314 0.450 - 5.100 uIU/mL Acetaminophen Level [[id number]] (Abnormal) Collected: 05/17/192253 Order Status: Completed Specimen: Blood Updated: 05/17/192335 Acetaminophen, S <2.0 10.0 - 30.0 ug/mL Drugs Of Abuse Screen, Urine (H) [[id number]] (Abnormal) Collected: 05/17/192257 Order Status: Completed Specimen: Urine Updated: 05/17/19 2320 Amp/Methamphetamine, Screen, Urine NEGATIVE NEG Barbiturates Screen, Urine NEGATIVE NEG Benzodiazepines Screen, Urine NEGATIVE NEG Cocaine Metabolites, Ur NEGATIVE NEG Methadone Screen, Urine NEGATIVE NEG Opiates Screen, Urine NEGATIVE NEG Phencyclidine Screen, Urine NEGATIVE NEG Tetrahydrocannabinol(THC) POSITIVE NEG Ketones, Serum [[id number]] Collected: 05/17/192253 Order Status: Completed Specimen: Blood Updated: 05/17/19 2317 Ketones, Blood NEGATIVE NEG POC Glucose [[id number]] (Abnormal) Collected: 05/17/192252 Order Status: Completed Updated: [...] being suicidal. Dr Espinoza notified of incident. docuphillip johansen in this encounter Miscellaneous Notes Plan of Jesus - Elisa Mendez RN - 05/21/2019 3:50 PM PST Problem: Fall Injury Risk Goal: Absence of Fall and Fall-Related Injury Outcome: Ongoing, progressing Sitter present in the room Steady gait noted lan of Jesus - Amy Villavicencio RN - 05/21/2019 6:34 [...] 24 hour chart check complete. lan of Elisa Murillo RN - 05/20/2019 5:16 PM PST Problem: [...] 05/20/2019 8:27 AM PSTM SW contacted Crisis ([phone]) to update them regarding the incident on [...] refusing insulin drip at this time. aware." [facility] [address] [place] [id number] Crisis thanked this CM for the information, and states that it will not be difficult to mikala ce pt. RIG MECHANIC requested that pt be prioritized for a [...] up in bed and began swi nging. Code irina called. When security arrived, the patient [...] Reji Harris RN - 05/19/2019 5:47 PM [facility] [place] [facility]. [facility] have [facility] pt d/t aggressive [...] current admission plan while awaiting placement by [facility]. Patient expr esses appreciation for CM visit and concern, returned to playing on phone as CM exited room. lan of Suzan Leung, RIG MECHANIC - 05/19/2019 1:05 PM PSTAttempted earlier to reach Dr. Castillo for psych consult, Dr. Bee now on, [place] [facility] telepsych consult. lan of Naeem Forbes MSW - 05/18/2019 4:31 PM PSTLynn [facility] at [facility] be single bed certification. When [...] J?MRN: | | | | | | [id number] | | | [id number] | | | riteri | | | [...] | | | St. | | | [facility] | | | y | | | [...] | | | St. | | | [facility] | | | y | | | [...] | | | St. | | | [facility] | | | y | | | Hospit | | | al | | | Patien | | | t is | | | curren | | | tly | | | establ | | | ished | | | with | | | St | | | [facility] | | | y | | | [...] St | | | | | | [facility] | | | y | | | [...] | | | St. | | | [facility] | | | y | | | [...] | | | St. | | | [facility] | | | y H. | | [...] | | | St. | | | [facility] | | | y H. | | [...] | | | St. | | | [facility] | | | y H. | | [...] | | | St. | | | [facility] | | | y H. | | [...] | | | St. | | | [facility] | | | y H. | | [...] | | | St. | | | [facility] | | | y H. | | [...] | | | MD | | | French Edge Operator | | | al | | [...] | | | [id number] | | | [id number] | | | 95 | | | [...] Testing | 65 - 99 mg/dL | [facility] | | | POC | performed at [facility];[address] | | LABORATORY | | | | [address];[place], [place] | | | | | | [address] | | | | + + + + + + + + | Specimen | + + | | + + + + + + + | Performing | Address | City/State/Zipcode | Phone Number | | Organization | | | | + + + + + | [facility] | [address] | [place] [address] | [phone] | + + + + + POC Glucose (05/21/2019 5:09 PM PST) + + + + + + | Component | Value | Ref Range | Performed | Pathologist | | | | | At | Signature | + + + + + + | Glucose, | 66Comment: Testing | 65 - 99 mg/dL | [facility] | | | POC | performed at [facility];[address] | | LABORATORY | | | | [address];[place], [place] | | | | | | [address] | | | | + + + + + + + + | Specimen | + + | | + + + + + + + | Performing | Address | City/State/Zipcode | Phone Number | | Organization | | | | + + + + + | [facility] | [address] | [place] [address] | [phone] | + + + + + POC Glucose (05/21/2019 4:51 PM PST) + + + + + + | Component | Value | Ref Range | Performed | Pathologist | | | | | At | Signature | + + + + + + | Glucose, | 66Comment: Testing | 65 - 99 mg/dL | [facility] | | | POC | performed at [facility];[address] | | LABORATORY | | | | [address];[place] | | | | | | [address] | | | | + + + + + + + + | Specimen | + + | | + + + + + + + | Performing | Address | City/State/Zipcode | Phone Number | | Organization | | | | + + + + + | [facility] | [address] | [place] [address] | [phone] | + + + + + POC Glucose (05/21/2019 3:10 PM PST) + + + + + + | Component | Value | Ref Range | Performed | Pathologist | | | | | At | Signature | + + + + + + | Glucose, | 88Comment: Testing | 65 - 99 mg/dL | [facility] | | | POC | performed at [facility];[address] | | LABORATORY | | | | [address];[place], [place] | | | | | | [address] | | | | + + + + + + + + | Specimen | + + | | + + + + + + + | Performing | Address | City/State/Zipcode | Phone Number | | Organization | | | | + + + + + | [facility] | [address] | [place] [address] | [phone] | + + + + + POC [...] | | | POC | performed at [facility];[address] | | LABORATORY | | | | [address];[place], [place] | | | | | | [address] | | | | + + + + + + + + | Specimen | + + | | + + + + + + + | Performing | Address | City/State/Zipcode | Phone Number | | Organization | | | | + + + + + | [facility] | [address] | [place] [address] | [phone] | + + + + + POC Glucose (05/21/2019 11:45 AM PST) + + + + + + | Component | Value | Ref Range | Performed | Pathologist | | | | | At | Signature | + + + + + + | Glucose, | 181 (H)Comment: Testing | 65 - 99 mg/dL | [facility] | | | POC | performed at [facility];[address] | | LABORATORY | | | | [address];[place] | | | | | | [address] | | | | + + + + + + + + | Specimen | + + | | + + + + + + + | Performing | Address | City/State/Zipcode | Phone Number | | Organization | | | | + + + + + | [facility] | [address] | [place] [address] | [phone] | + + + + + Basic [...] | 8.8 | 8.5 - 10.5 | [facility] | | | | | mg/dL | LABORATORY | | + + + + + + | Estimated | >60Comment: GFR <60: | >60 | [facility] | | | GFR | CHRONIC KIDNEY [...] | | | | | performed at [facility], [address] | | | | | | [facility], | | | | | | [place] [address] | | | | + + + + + + + + | Specimen | + + | Blood | + + + + + + + | Performing | Address | City/State/Zipcode | Phone Number | | Organization | | | | + + + + + | [facility] | [address] | [place] [address] | [phone] | + + + + + POC [...] | | | POC | performed at [facility];[address] | | LABORATORY | | | | [address];[place], [place] | | | | | | [address] | | | | + + + + + + + + | Specimen | + + | | + + + + + + + | Performing | Address | City/State/Zipcode | Phone Number | | Organization | | | | + + + + + | [facility] | [address] | [place] [address] | [phone] | + + + + + POC [...] | | | POC | performed at [facility];[address] | | LABORATORY | | | | [address];[place], [place] | | | | | | [address] | | | | + + + + + + + + | Specimen | + + | | + + + + + + + | Performing | Address | City/State/Zipcode | Phone Number | | Organization | | | | + + + + + | [facility] | [address] | [place] [address] | [phone] | + + + + + POC [...] | | | POC | performed at [facility];[address] | | LABORATORY | | | | [address];[place] | | | | | | [address] | | | | + + + + + + + + | Specimen | + + | | + + + + + + + | Performing | Address | City/State/Zipcode | Phone Number | | Organization | | | | + + + + + | [facility] | [address] | [place] [address] | [phone] | + + + + + POC [...] | | | POC | performed at [facility];[address] | | LABORATORY | | | | [address];[place] | | | | | | [address] | | | | + + + + + + + + | Specimen | + + | | + + + + + + + | Performing | Address | City/State/Zipcode | Phone Number | | Organization | | | | + + + + + | [facility] | [address] | [place] [address] | [phone] | + + + + + Potassium (05/20/2019 3:58 PM PST) + + + + + + | Component | Value | Ref Range | Performed | Pathologist | | | | | At | Signature | + + + + + + | K | 4.9Comment: Testing | 3.5 - 4.9 | [facility] | | | | performed at [facility];[address] | mmol/L | LABORATORY | | | | [address];[place], [place] | | | | | | [address] | | | | + + + + + + + + | Specimen | + + | Blood | + + + + + + + | Performing | Address | City/State/Zipcode | Phone Number | | Organization | | | | + + + + + | [facility] | [address] | [place] [address] | [phone] | + + + + + POC Glucose (05/20/2019 11:37 AM PST) + + + + + + | Component | Value | Ref Range | Performed | Pathologist | | | | | At | Signature | + + + + + + | Glucose, | >400 (H)Comment: Testing | 65 - 99 mg/dL | [facility] | | | POC | performed at [facility];[address] | | LABORATORY | | | | [address];[place] | | | | | | [address] | | | | + + + + + + + + | Specimen | + + | | + + + + + + + | Performing | Address | City/State/Zipcode | Phone Number | | Organization | | | | + + + + + | [facility] | [address] | [place] [address] | [phone] | + + + + + Basic [...] | | | | | | [facility] traceable | | | | | | equation.Testing | | | | | | performed at [facility], [address] | | | | | | [facility], | | | | | | [place] [address] | | | | + + + + + + + + | Specimen | + + | Blood | + + + + + + + | Performing | Address | City/State/Zipcode | Phone Number | | Organization | | | | + + + + + | [facility] | [address] | [place] [address] | [phone] | + + + + + ECG [...] | | | POC | performed at [facility];[address] | | LABORATORY | | | | [address];[place] | | | | | | [address] | | | | + + + + + + + + | Specimen | + + | | + + + + + + + | Performing | Address | City/State/Zipcode | Phone Number | | Organization | | | | + + + + + | [facility] | [address] | [place] [address] | [phone] | + + + + + POC Glucose (05/20/2019 3:23 AM PST) + + + + + + | Component | Value | Ref Range | Performed | Pathologist | | | | | At | Signature | + + + + + + | Glucose, | 232 (H)Comment: Testing | 65 - 99 mg/dL | [facility] | | | POC | performed at [facility];[address] | | LABORATORY | | | | [address];[place] | | | | | | [address] | | | | + + + + + + + + | Specimen | + + | | + + + + + + + | Performing | Address | City/State/Zipcode | Phone Number | | Organization | | | | + + + + + | [facility] | [address] | [place] [address] | [phone] | + + + + + POC [...] | | | POC | performed at [facility];888 | | LABORATORY | | | | [address];[place], [place] | | | | | | [address] | | | | + + + + + + + + | Specimen | + + | | + + + + + + + | Performing | Address | City/State/Zipcode | Phone Number | | Organization | | | | + + + + + | [facility] | [address] | [place] [address] | [phone] | + + + + + POC Glucose (05/20/2019 1:22 AM PST) + + + + + + | Component | Value | Ref Range | Performed | Pathologist | | | | | At | Signature | + + + + + + | Glucose, | 248 (H)Comment: Testing | 65 - 99 mg/dL | [facility] | | | POC | performed at [facility];[address] | | LABORATORY | | | | [address];[place] | | | | | | [address] | | | | + + + + + + + + | Specimen | + + | | + + + + + + + | Performing | Address | City/State/Zipcode | Phone Number | | Organization | | | | + + + + + | [facility] | [address] | [place] [address] | [phone] | + + + + + POC Glucose (05/20/2019 12:23 AM PST) + + + + + + | Component | Value | Ref Range | Performed | Pathologist | | | | | At | Signature | + + + + + + | Glucose, | 186 (H)Comment: Testing | 65 - 99 mg/dL | [facility] | | | POC | performed at [facility];888 | | LABORATORY | | | | [address];[place] | | | | | | [address] | | | | + + + + + + + + | Specimen | + + | | + + + + + + + | Performing | Address | City/State/Zipcode | Phone Number | | Organization | | | | + + + + + | [facility] | [address] | [place] [address] | [phone] | + + + + + POC [...] | | | POC | performed at [facility];888 | | LABORATORY | | | | [address];[place] | | | | | | [address] | | | | + + + + + + + + | Specimen | + + | | + + + + + + + | Performing | Address | City/State/Zipcode | Phone Number | | Organization | | | | + + + + + | [facility] | [address] | [place] [address] | [phone] | + + + + + POC [...] | | | POC | performed at [facility];888 | | LABORATORY | | | | [address];[place], [place] | | | | | | [address] | | | | + + + + + + + + | Specimen | + + | | + + + + + + + | Performing | Address | City/State/Zipcode | Phone Number | | Organization | | | | + + + + + | [facility] | [address] [facility] | [place] [address] | [phone] | + + + + + POC [...] | | | POC | performed at [facility];[address] | | LABORATORY | | | | [address];[place], [place] | | | | | | [address] | | | | + + + + + + + + | Specimen | + + | | + + + + + + + | Performing | Address | City/State/Zipcode | Phone Number | | Organization | | | | + + + + + | [facility] | [address] | [place] [address] | [phone] | + + + + + POC [...] | | | POC | performed at [facility];[address] | | LABORATORY | | | | [address];[place] | | | | | | [address] | | | | + + + + + + + + | Specimen | + + | | + + + + + + + | Performing | Address | City/State/Zipcode | Phone Number | | Organization | | | | + + + + + | [facility] | [address] | [place] [address] | [phone] | + + + + + POC Glucose (05/19/2019 9:06 PM PST) + + + + + + | Component | Value | Ref Range | Performed | Pathologist | | | | | At | Signature | + + + + + + | Glucose, | 54 (L)Comment: Testing | 65 - 99 mg/dL | [facility] | | | POC | performed at [facility];[address] | | LABORATORY | | | | [address];[place] | | | | | | [address] | | | | + + + + + + + + | Specimen | + + | | + + + + + + + | Performing | Address | City/State/Zipcode | Phone Number | | Organization | | | | + + + + + | [facility] | [address] | [place] [address] | [phone] | + + + + + POC [...] | | | POC | performed at [facility];888 | | LABORATORY | | | | [address];[place], [place] | | | | | | [address] | | | | + + + + + + + + | Specimen | + + | | + + + + + + + | Performing | Address | City/State/Zipcode | Phone Number | | Organization | | | | + + + + + | [facility] | [address] | [place] [address] | [phone] | + + + + + POC Glucose (05/19/2019 7:43 PM PST) + + + + + + | Component | Value | Ref Range | Performed | Pathologist | | | | | At | Signature | + + + + + + | Glucose, | 322 (H)Comment: Testing | 65 - 99 mg/dL | [facility] | | | POC | performed at [facility];[address] | | LABORATORY | | | | [address];[place] | | | | | | [address] | | | | + + + + + + + + | Specimen | + + | | + + + + + + + | Performing | Address | City/State/Zipcode | Phone Number | | Organization | | | | + + + + + | [facility] | [address] | [place] [address] | [phone] | + + + + + Glucose, Random (05/19/2019 5:51 PM PST) + + + + + + | Component | Value | Ref Range | Performed | Pathologist | | | | | At | Signature | + + + + + + | Glucose | 421 (H)Comment: Testing | 65 - 99 mg/dL | [facility] | | | | performed at [facility];888 | | LABORATORY | | | | [address];[place] | | | | | | [address] | | | | + + + + + + + + | Specimen | + + | Blood | + + + + + + + | Performing | Address | City/State/Zipcode | Phone Number | | Organization | | | | + + + + + | [facility] | [address] | [place] [address] | [phone] | + + + + + POC [...] | | | POC | performed at [facility];[address] | | LABORATORY | | | | [address];[place], [place] | | | | | | [address] | | | | + + + + + + + + | Specimen | + + | | + + + + + + + | Performing | Address | City/State/Zipcode | Phone Number | | Organization | | | | + + + + + | [facility] | [address] | [place] [address] | [phone] | + + + + + Hemoglobin A1C (05/19/2019 3:06 PM PST) + + + + + + | Component | Value | Ref Range | Performed | Pathologist | | | | | At | Signature | + + + + + + | Hemoglobin | 10.2 (H)Comment: HbA1c | 4.0 - 6.0 % | [facility] | | | A1c | [...] | 246 (H)Comment: | <154 mg/dL | [facility] | | | Average | Estimated Average | | LABORATORY | | | Glucose | Glucose calculated from | | | | | | hemoglobin A1c by use of | | | | | | the ADArecommended | | | | | | formula.Testing | | | | | | performed at [facility], [address] | | | | | | [facility], | | | | | | [place] [address] | | | | + + + + + + + + | Specimen | + + | Blood | + + + + + + + | Performing | Address | City/State/Zipcode | Phone Number | | Organization | | | | + + + + + | [facility] | [address] | [place] [address] | [phone] | + + + + + Glucose, Random (05/19/2019 3:06 PM PST) + + + + + + | Component | Value | Ref Range | Performed | Pathologist | | | | | At | Signature | + + + + + + | Glucose | 520 ()Comment: CALLED | 65 - 99 mg/dL | [facility] | | | | RESULTSREAD BACK RESULTS | | LABORATORY | | | | VERIFIEDBOOM/CONSUELO Cervantes | | | | | | AT [address] | | | | | | performed at [facility];[address] | | | | | [address];[place], [place] | | | | | | [address] | | | | + + + + + + + + | Specimen | + + | Blood | + + + + + + + | Performing | Address | City/State/Zipcode | Phone Number | | Organization | | | | + + + + + | [facility] | [address] | [place] [address] | [phone] | + + + + + POC Glucose (05/19/2019 2:42 PM PST) + + + + + + | Component | Value | Ref Range | Performed | Pathologist | | | | | At | Signature | + + + + + + | Glucose, | >400 (H)Comment: Testing | 65 - 99 mg/dL | [facility] | | | POC | performed at [facility];[address] | | LABORATORY | | | | [address];[place], [place] | | | | | | [address] | | | | + + + + + + + + | Specimen | + + | | + + + + + + + | Performing | Address | City/State/Zipcode | Phone Number | | Organization | | | | + + + + + | [facility] | [address] | [place] [address] | [phone] | + + + + + POC [...] | | | POC | performed at [facility];[address] | | LABORATORY | | | | [address];[place], [place] | | | | | | [address] | | | | + + + + + + + + | Specimen | + + | | + + + + + + + | Performing | Address | City/State/Zipcode | Phone Number | | Organization | | | | + + + + + | [facility] | [address] | [place] [address] | [phone] | + + + + + Basic [...] | >60Comment: GFR <60: | >60 | [facility] | | | GFR | CHRONIC KIDNEY [...] | | | | | performed at [facility] | | | | | | [facility];[place], [place] | | | | | | [address] | | | | + + + + + + + + | Specimen | + + | Blood | + + + + + + + | Performing | Address | City/State/Zipcode | Phone Number | | Organization | | | | + + + + + | [facility] | [address] | [place] [address] | [phone] | + + + + + POC [...] | | | POC | performed at [facility];[address] | | LABORATORY | | | | [address];[place] | | | | | | [address] | | | | + + + + + + + + | Specimen | + + | | + + + + + + + | Performing | Address | City/State/Zipcode | Phone Number | | Organization | | | | + + + + + | [facility] | [address] | [place] [address] | [phone] | + + + + + POC [...] | | | POC | performed at [facility];[address] | | LABORATORY | | | | [address];[place] | | | | | | [address] | | | | + + + + + + + + | Specimen | + + | | + + + + + + + | Performing | Address | City/State/Zipcode | Phone Number | | Organization | | | | + + + + + | [facility] | [address] | [place] [address] | [phone] | + + + + + Basic [...] | | | | | performed at [facility];888 | | | | | | [address];[place] | | | | | | [address] | | | | + + + + + + + + | Specimen | + + | Blood | + + + + + + + | Performing | Address | City/State/Zipcode | Phone Number | | Organization | | | | + + + + + | [facility] | [address] | [place] [address] | [phone] | + + + + + POC [...] | | | POC | performed at [facility];[address] | | LABORATORY | | | | [address];[place] | | | | | | [address] | | | | + + + + + + + + | Specimen | + + | | + + + + + + + | Performing | Address | City/State/Zipcode | Phone Number | | Organization | | | | + + + + + | [facility] | [address] [facility] | [place] [address] | [phone] | + + + + + POC Glucose (05/18/2019 8:19 PM PST) + + + + + + | Component | Value | Ref Range | Performed | Pathologist | | | | | At | Signature | + + + + + + | Glucose, | >400 (H)Comment: Testing | 65 - 99 mg/dL | [facility] | | | POC | performed at [facility];[address] | | LABORATORY | | | | [address];[place] | | | | | | [address] | | | | + + + + + + + + | Specimen | + + | | + + + + + + + | Performing | Address | City/State/Zipcode | Phone Number | | Organization | | | | + + + + + | [facility] | [address] | [place] [address] | [phone] | + + + + + Basic [...] | 8.7 | 8.5 - 10.5 | [facility] | | | | | mg/dL | LABORATORY | | + + + + + + | Estimated | >60Comment: GFR <60: | >60 | [facility] | | | GFR | CHRONIC KIDNEY [...] | | | | | | MDRD IDKS traceable | | | | | | equation.Testing | | | | | | performed at [facility];88 | | | | | | [facility];[place], [place] | | | | | | [address] | | | | + + + + + + + + | Specimen | + + | Blood | + + + + + + + | Performing | Address | City/State/Zipcode | Phone Number | | Organization | | | | + + + + + | [facility] | [address] | [place] [address] | [phone] | + + + + + POC [...] | | | POC | performed at [facility];[address] | | LABORATORY | | | | [address];[place] | | | | | | [address] | | | | + + + + + + + + | Specimen | + + | | + + + + + + + | Performing | Address | City/State/Zipcode | Phone Number | | Organization | | | | + + + + + | [facility] | [address] [facility] | [place] [address] | [phone] | + + + + + POC [...] | | | POC | performed at [facility];[address] | | LABORATORY | | | | [address];[place], [place] | | | | | | [address] | | | | + + + + + + + + | Specimen | + + | | + + + + + + + | Performing | Address | City/State/Zipcode | Phone Number | | Organization | | | | + + + + + | [facility] | [address] | [place] [address] | [phone] | + + + + + POC Glucose (05/18/2019 12:22 PM PST) + + + + + + | Component | Value | Ref Range | Performed | Pathologist | | | | | At | Signature | + + + + + + | Glucose, | >400 (H)Comment: Testing | 65 - 99 mg/dL | [facility] | | | POC | performed at [facility];[address] | | LABORATORY | | | | [address];[place] | | | | | | [address] | | | | + + + + + + + + | Specimen | + + | | + + + + + + + | Performing | Address | City/State/Zipcode | Phone Number | | Organization | | | | + + + + + | [facility] | [address] | [place] [address] | [phone] | + + + + + POC Glucose (05/18/2019 9:28 AM PST) + + + + + + | Component | Value | Ref Range | Performed | Pathologist | | | | | At | Signature | + + + + + + | Glucose, | 111 (H)Comment: Testing | 65 - 99 mg/dL | [facility] | | | POC | performed at [facility];[address] | | LABORATORY | | | | [address];[place] | | | | | | [address] | | | | + + + + + + + + | Specimen | + + | | + + + + + + + | Performing | Address | City/State/Zipcode | Phone Number | | Organization | | | | + + + + + | [facility] | [address] | [place] [address] | [phone] | + + + + + POC [...] | | | POC | performed at [facility];[address] | | LABORATORY | | | | [address];[place], [place] | | | | | | [address] | | | | + + + + + + + + | Specimen | + + | | + + + + + + + | Performing | Address | City/State/Zipcode | Phone Number | | Organization | | | | + + + + + | [facility] | [address] | [place] [address] | [phone] | + + + + + POC Glucose (05/18/2019 3:49 AM PST) + + + + + + | Component | Value | Ref Range | Performed | Pathologist | | | | | At | Signature | + + + + + + | Glucose, | 172 (H)Comment: Testing | 65 - 99 mg/dL | [facility] | | | POC | performed at [facility];[address] | | LABORATORY | | | | [address];[place] | | | | | | [address] | | | | + + + + + + + + | Specimen | + + | | + + + + + + + | Performing | Address | City/State/Zipcode | Phone Number | | Organization | | | | + + + + + | [facility] | [address] | [place] [address] | [phone] | + + + + + POC Glucose (05/18/2019 1:36 AM PST) + + + + + + | Component | Value | Ref Range | Performed | Pathologist | | | | | At | Signature | + + + + + + | Glucose, | 319 (H)Comment: Testing | 65 - 99 mg/dL | [facility] | | | POC | performed at [facility];[address] | | LABORATORY | | | | [address];[place], [place] | | | | | | [address] | | | | + + + + + + + + | Specimen | + + | | + + + + + + + | Performing | Address | City/State/Zipcode | Phone Number | | Organization | | | | + + + + + | [facility] | [address] | [place] [address] | [phone] | + + + + + Blood [...] Comment, | Abdiel Test not | | [facility] | | | POC | indicatedComment: | | LABORATORY | | | | Testing performed at | | | | | | [facility];[address] | [address];[place] [address] | | | | + + + + + + + + | Specimen | + + | | + + + + + + + | Performing | Address | City/State/Zipcode | Phone Number | | Organization | | | | + + + + + | [facility] | [address] | [place] [address] | [phone] | + + + + + Drugs [...] Tetrahydroc | POSITIVE (A)Comment: | NEG | [facility] | | | annabinol(T | Positive cutoff [...] | | | | | performed at [facility] | | | | | | [facility];[place], [place] | | | | | | [address] | | | | + + + + + + + + | Specimen | + + | Urine | + + + + + + + | Performing | Address | City/State/Zipcode | Phone Number | | Organization | | | | + + + + + | [facility] | [address] | [place] [address] | [phone] | + + + + + Ketones, Serum (05/17/2019 10:54 PM PST) + + + + + + | Component | Value | Ref Range | Performed | Pathologist | | | | | At | Signature | + + + + + + | Ketones, | NEGATIVEComment: Testing | NEG | [facility] | | | Blood | performed at [facility];[address] | | LABORATORY | | | | [address];[place] | | | | | | [address] | | | | + + + + + + + + | Specimen | + + | Blood | + + + + + + + | Performing | Address | City/State/Zipcode | Phone Number | | Organization | | | | + + + + + | [facility] | [address] | [place] [address] | [phone] | + + + + + TSH (05/17/2019 10:54 PM PST) + + + + + + | Component | Value | Ref Range | Performed | Pathologist | | | | | At | Signature | + + + + + + | TSH | 1.314Comment: Testing | 0.450 - 5.100 | [facility] | | | | performed at [facility];888 | uIU/mL | LABORATORY | | | | [address];[place], [place] | | | | | | [address] | | | | + + + + + + + + | Specimen | + + | Blood | + + + + + + + | Performing | Address | City/State/Zipcode | Phone Number | | Organization | | | | + + + + + | [facility] | [address] | [place] [address] | [phone] | + + + + + Salicylate Level (05/17/2019 10:54 PM PST) + + + + + + | Component | Value | Ref Range | Performed | Pathologist | | | | | At | Signature | + + + + + + | Salicylate, | <3.0Comment: Testing | 2.8 - 20.0 | [facility] | | | mg/dL | performed at [facility];888 | mg/dL | LABORATORY | | | | [address];[place], [place] | | | | | | [address] | | | | + + + + + + + + | Specimen | + + | Blood | + + + + + + + | Performing | Address | City/State/Zipcode | Phone Number | | Organization | | | | + + + + + | [facility] | [address] | [place] [address] | [phone] | + + + + + Acetaminophen Level (05/17/2019 10:54 PM PST) + + + + + + | Component | Value | Ref Range | Performed | Pathologist | | | | | At | Signature | + + + + + + | Acetaminoph | <2.0 (L)Comment: Testing | 10.0 - 30.0 | [facility] | | | en, S | performed at [facility];[address] | ug/mL | LABORATORY | | | | [address];[place], [place] | | | | | | [address] | | | | + + + + + + + + | Specimen | + + | Blood | + + + + + + + | Performing | Address | City/State/Zipcode | Phone Number | | Organization | | | | + + + + + | [facility] | [address] [facility] | [place] [address] | [phone] | + + + + + Ethanol (05/17/2019 10:54 PM PST) + + + + + + | Component | Value | Ref Range | Performed | Pathologist | | | | | At | Signature | + + + + + + | ALCOHOL, | <10Comment: Testing | <10 mg/dL | [facility] | | | SERUM/PLASM | performed at [facility] | | LABORATORY | | | A | [address];[place], [place] | | | | | | [address] | | | | + + + + + + + + | Specimen | + + | Blood | + + + + + + + | Performing | Address | City/State/Zipcode | Phone Number | | Organization | | | | + + + + + | [facility] | [address] | [place] [address] | [phone] | + + + + + Comprehensive [...] | | | | | performed at [facility];[address] | | | | | | [address];[place], [place] | | | | | | [address] | | | | + + + + + + + + | Specimen | + + | Blood | + + + + + + + | Performing | Address | City/State/Zipcode | Phone Number | | Organization | | | | + + + + + | [facility] | [address] | [place] [address] | [phone] | + + + + + CBC [...] | | | Absolute | performed at [facility];[address] | K/uL | LABORATORY | | | | [address];[place], [place] | | | | | | [address] | | | | + + + + + + + + | Specimen | + + | Blood | + + + + + + + | Performing | Address | City/State/Zipcode | Phone Number | | Organization | | | | + + + + + | [facility] | [address] | [place] [address] | [phone] | + + + + + POC Glucose (05/17/2019 10:53 PM PST) + + + + + + | Component | Value | Ref Range | Performed | Pathologist | | | | | At | Signature | + + + + + + | Glucose, | >400 (H)Comment: Testing | 65 - 99 mg/dL | [facility] | | | POC | performed at [facility];[address] | | LABORATORY | | | | [address];[place] | | | | | | [address] | | | | + + + + + + + + | Specimen | + + | | + + + + + + + | Performing | Address | City/State/Zipcode | Phone Number | | Organization | | | | + + + + + | [facility] | [address] | [place] [address] | [phone] | + + + + + documented [...] | | | | First dose on [facility] 05/20/19 at | | | | | [...] | | | | | | | 4668-9500 Use NIGHT DOSE for | | | | | | | doses scheduled: HS, 3AM, | | | | | | | Nighttime 8501-8626 If the BG is | | | [...] | | | | | | | 4408-8263 Use NIGHT DOSE for | | | | | | | doses scheduled: HS, 3AM, | | | | | | | Nighttime 9728-0598 If the BG is | | | [...] | | | | | | | 4329-9181 Use NIGHT DOSE for | | | | | | | doses scheduled: HS, 3AM, | | | | | | | Nighttime [id number] If the BG is | | | [...] PST | | | | | ONCE, [facility] 05/17/19 at 2335, For 1 | | [...] HOURS PRN, Agitation, | | | Starting Kailey 05/20/19 at 0913, | | | Reproductive [...]
--- OUTSIDE RECORDS SUMMARY | ~2020-03-13 | XMS | Encounter Summary ---
Demographics + + + | Address | [address] | | | [place] [address] | + + + | Home Phone [...] Author + + + | Author | [facility] | | | and Ryana | + + + | Organization | [facility] | | [...] Team Providers + +------+ + | Care Inventory Clerk Name | Role | Phone | + +------+ + PCP | Unavailable | + +------+ + Encounter Details +--------+ + + + + | Date | Type | Department | Care Team | Description | +--------+ + + + + | 05/01/ | [facility] | ROGELIO TALAMANTES | Abhi Berger | | | 2003 | Encounter | FAMILY MEDICINE 120 | MD [address] | | | | | [address] | [place], [place] | | | | | [place] [address] | [address] | | | | | [phone] | | | +--------+ + + + [...]
--- OUTSIDE RECORDS SUMMARY | ~2020-03-13 | XMS | Encounter Summary ---
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
--- OUTSIDE RECORDS SUMMARY | ~2020-03-13 | XMS | Encounter Summary ---
Demographics + + + | Address | [address] | | | [place] [address] | + + + | Home Phone | | + + + | Preferred Language | Unknown | + + + | Marital Status | Single | + + + | Mosque Affiliation | [id number] | + + + [...] Team Providers + +------+ + | Care Drill Press Tender Name | Role | Phone | [...] [address] | | | | | | [place], [place] | | | | | | [address] | | | | | | [phone] | | | +--------+ + + + [...] [address] | [place] | [phone] | | [facility] | | [address] | | | - LABORATORY | | | | + + + + + documented in this encounter Visit Diagnoses Not on filedocumented in this encounter"
--- OUTSIDE RECORDS SUMMARY | ~2020-03-13 | XMS | Encounter Summary ---
Demographics + + + | Address | [address] | | | [place] [address] | + + + | Home Phone [...] Author + + + | Author | [facility] | | | and Ryana | + + + | Organization | [facility] | | | [...] Team Providers + +------+ + | Care Engine Testing Supervisor Name | Role | Phone | [...] | | | | | | | ([facility]) | | | +--------+--------+ + + + + Encounter Details +--------+ + + + + | Date | Type | Department | Care Team | Description | +--------+ + + + + | 05/01/ | Hospital | [facility] | Venkatesh Gomez, | Diabetic | | 2017 - | Encounter | MED CTR SURGICAL | [address] | ketoacidosis without | | | | [address] | [facility] [place] | coma associated | | 05/03/ | | [place] [address] | [place] [address] | with type 1 diabetes | | 2017 | | [phone] | [phone] | mellitus (HCC) | | | | | | (Primary Dx) | | | | | Juanjose Ross MD | | | | | | [address] | | | | | | [place], [place] | | | | | | [address] | | | | | | | | | | | | Kevin Gifford MD | | | | | | [address] | | | | | | [place], [place] | | | | | | [address] | | | | | | | [...] might be different fro m the original. [place] HOSPITALIST DISCHARGE SUMMARY Pt. Name/Age/: Joni [...] [facility] has haydee garcia living at [facility] past month and not have his [...] here (at least 50 needles) LIves at [facility] Most recent weight: Input and output [...] signed by: Kevin Gifford MD, 05/03/2017 11:48 [facility] Reference. This is NOT part of [...] this chart may have been created with [employer] voice recognition software. Occasi onal wrong-word or [...] cannot be sent through Care Everywhere.Diabetes, Diet (Tajik)Diabetes, General Information (Tajik)Diabetes, Healthy Meals for (Tajik)Diabete s, Meal Planning (Tajik)Diabetes: Shopping for and Preparing Meals (Tajik)documented in this encounter Medications at Time of [...] might be different fro m the original. [place] HOSPITALIST PROGRESS NOTE Patient: Joni Kwon : 1980: Age: 36 y.o. MedRec: [id number] PCP: DENIS Paul Admission date: 05/01/2017 Hospital [...] for input(s): IRON, TIBC, PCTSAT, FERRITIN, TSH, [id number], FOLATE in the last 168 hours. Inflammatory [...] 57.1* HCO3 21.8 TCO2 22.9 BEART -3.0* [id number] 89* Drug of overdose and abuse Recent [...] Procedure Component Value Units Date/Time Culture, MRSA [[id number]] Collected: 05/02/17 0202 Order Status: Completed Lab [...] [facility] has b een living at [facility] past month and not have his [...] here (at least 50 needles) LIves at [facility] (dot meyaddendum tdnorefesh nownorefresh) (dot meytime meycritical meysign) Kevin Gifford MD 05/03/2017 11:27 [facility] Reference. This is NOT part of the [...] this chart may have been created with [employer] voice recognition software. Occasi onal wrong-word or sound-alike substitutions may have occurred due to the inherent renee itations of voice recognition software. Please read the chart carefully and recognize, using context, where these substitutions have occurred ol, [facility] - 05/02/2017 4:32 PM PST PHARMACY SERVICES: [...] and directions X Pharmacy list names: [facility] [place] X Care Everywhere X Outside Information Vaccines [...] Prior to Admission Sig: Patient taking differently POLICE LIAISON as: Insulin Lispro 100 units/mL inj 5 units under the skin three times daily -Unable to verify sliding scale 3 units under the skin three times daily -Patient has no fill history within t he last 4 months Medication review performed and electronically signed by Lawanda Owen, Derrick Hand 16:19 Electronically signed by: Cody Lawler RPH 05/02/2017 16:31 Kevin Colon MD - 05/02/2017 6:47 AM PST [facility] [place] HOSPITALIST PROGRESS NOTE Patient: Joni Kwon : 1980: Age: 36 y.o. MedRec: [id number] PCP: DENIS Paul Admission date: 05/01/2017 Hospital [...] for input(s): IRON, TIBC, PCTSAT, FERRITIN, TSH, [id number], FOLATE in the last 168 hours. Inflammatory [...] 57.1* HCO3 21.8 TCO2 22.9 BEART -3.0* [id number] 89* Drug of overdose and abuse Recent [...] Procedure Component Value Units Date/Time Culture, MRSA [[id number]] Collected: 05/02/17201 Order Status: Sent Lab Status: [...] [facility] has b eetyler living at [facility] past month and not have his [...] his pens uses [facility] LIves at [facility] (dot meyaddendum tdnorefesh nownorefresh) (dot meytime meycritical meysign) Kevin Gifford MD 05/02/2017 6:48 [facility] Reference. This is NOT part of the [...] this chart may have been created with [employer] voice recognition software. Occasi onal wrong-word or sound-alike substitutions may have occurred due to the inherent renee itations of voice recognition software. Please read the chart carefully and recognize, using context, where these substitutions have occurred documented in this en counter H&P Notes Juanjose Ross MD - 05/02/2017 1:06 AM PST [facility] HISTORY AND PHYSICAL Pt. [...] signed by: Juanjose Ross MD 05/02/2017 2:07 [facility] documented in this enc ounter Consult [...] he is homeless and staying at the [facility] somet imes his meals are unpredictable. They [...] might be different f rom the original. [facility] Joni Brown Doyle Emergency Department Encounter Note [address] [place] [id number] PCP:Shavon Covington, R D MANAGER [phone] CHIEF COMPLAINT Chief Complaint Patient presents [...] Diabetes mellitus (HCC) Type 1 diabetes Schizophrenia ([facility]) SURGICAL HISTORY Past Surgical History: [...] teaching. Pt he is going back to long-term today, mother is planning to c ome pick him up shortly. IV removed. Pt has all paperwork. Will continue to monitor. [facility]. lan of Care - [...] Report given to Hanny JAMES. lan of [facility] - Shawna, Kavita Cervantes RN - 05/02/2017 12:28 PM PSTProblem: Discharge Planning Goal: Patient will be discharged in a safe manner Outcome: Improving This CM met with patient to discuss his d/c plan. He has been staying at the [facility] for about 1/2 month and is allowed [...] Diallo, at the walk in clinic in [place], and that it has been 2 months ago that he has seen her. He does not wish this CM to make an appt sin e he is not sure when he could get there. He is working with [email or web address] in [place] to find housing. Assisted him to leave a message t here with his payee, Lauren Damonacruz, at [email or web address], p# [phone]. He also requested that t his CM contact his mother to let her know that he is here and that he wishes to talk with he r. Called [phone], and spoke with Ms Kwon, and let her know that Kamari was here and she wanted to know what room he was in, so will either call or come and visit him today. Called Ursula, Rehabilitation Counsellor, and she brought up some pen tips [...] be walking back to the [facility] at discharge. CM to follow for any further discharge needs.Electronically signed by: Patricia Matos RN 2016 12:28 lan of [facility] - Dayo Negron RRT - 05/02/2017 11:54 [...] J?MRN: | | | | | | [id number] | | | [id number] | | | his | | | [...] | | | St. | | | [place] | | | y | | | [...] | | | St. | | | [place] | | | y | | | [...] | | | St. | | | [place] | | | y H. | | [...] | | | St. | | | [place] | | | y H. | | [...] | | | St. | | | [place] | | | y H. | | [...] | | | St. | | | [place] | | | y H. | | [...] | | | St. | | | [place] | | | y H. | | [...] | | | St. | | | [place] | | | y | | | [...] | | | ext. | | | [phone] | | | or go | | [...] [address] | [place] | [phone] | | [facility] | | [address] | | | - LABORATORY | | [...] + | [facility] | [address] | [place] | [phone] | | [facility] | | [address] | | | - LABORATORY | | [...] mL/min/1.73m2 | [facility] | | | Iraqi | RATE,ESTIMATED | | MEDICAL | | | | mL/min/1.62n0Zblx than | | CENTER - | | [...] [address] | [place] | [phone] | | [facility] | | [address] | | | - LABORATORY | | [...] + | [facility] | [address] | [place] | [phone] | | [facility] | | [address] | | | - LABORATORY | | [...] + | [facility] | [address] | [place] | [phone] | | [facility] | | [address] | | | - LABORATORY | | [...] ST. | [address] | [place], [place] | [phone] | | [facility] | | [address] | | | - LABORATORY | | [...] [address] | [place] | [phone] | | [facility] | | [address] | | | - LABORATORY | | [...] + | [facility] | [address] | [place] | [phone] | | [facility] | | [address] | | | - LABORATORY | | [...] | | | POC | | | [facility] | | | | | | [...] + | [facility] | [address] | [place], [place] | [phone] | | [facility] | | [address] | | | - LABORATORY | | [...] + | [facility] | [address] | [place] | [phone] | | [facility] | | [address] | | | - LABORATORY | | [...] mL/min/1.73m2 | [facility] | | | [place] | RATE,ESTIMATED | | MEDICAL | | | | mL/min/1.02q6Vqij than | | CENTER - | | [...] [address] | [place] | [phone] | | [facility] | | [address] | | | - LABORATORY | | [...] [address] | [place] | [phone] | | [facility] | | [address] | | | - LABORATORY | | [...] + | [facility] | [address] | [place] | [phone] | | [facility] | | [address] | | | - LABORATORY | | [...] ST. | [address] | [place], [place] | [phone] | | [facility] | | [address] | | | - LABORATORY | | [...] [address] | [place] | [phone] | | [facility] | | [address] | | | - LABORATORY | | [...] | 1.08 | 0.60 - 1.30 | [facility] | | | | mg/dL | [facility] | | | | | | MEDICAL | | | | | | CENTER - | | | | | | LABORATORY | | + + + + + + | eGFR, | >60Comment: GLOMERULAR | >=60 | [facility] | | | non- | FILTRATION | mL/min/1.73m2 | [facility] | | | [place] | RATE,ESTIMATED | | MEDICAL | | | | mL/min/1.59c8Mypx than | | CENTER - | | [...] [address] | [place] | [phone] | | [facility] | | [address] | | | - LABORATORY | | [...] + | [facility] | [address] | [place] | [phone] | | [facility] | | [address] | | | - LABORATORY | | [...] + | [facility] | [address] | [place] | [phone] | | [facility] | | [address] | | | - LABORATORY | | [...] [address] | [place] | [phone] | | [facility] | | [address] | | | - LABORATORY | | [...] - 1.030 | [facility] | | | [place], | | | [facility] | | [...] [address] | [place] | [phone] | | [facility] | | [address] | | | - LABORATORY | | [...] ST. | [address] | [place] | [phone] | | [facility] | | [address] | | | - LABORATORY | | [...] + | [facility] | [address] | [place] | [phone] | | [facility] | | [address] | | | - LABORATORY | | [...] [address] | [place] | [phone] | | [facility] | | [address] | | | - LABORATORY | | [...] [address] | [place] | [phone] | | [facility] | | [address] | | | - LABORATORY | | [...] | 1.25 | 0.60 - 1.30 | [place] | | | | | mg/dL | [facility] | | | | | | MEDICAL | | | | | | CENTER - | | | | | | LABORATORY | | + + + + + + | eGFR, | >60Comment: GLOMERULAR | >=60 | [place] | | | non- | FILTRATION | mL/min/1.73m2 | [facility] | | | Iraqi | RATE,ESTIMATED | | MEDICAL | | | | mL/min/1.03b2Agii than | | CENTER - | | [...] [address] | [place] | [phone] | | [facility] | | [address] | | | - LABORATORY | | [...] [address] | [place] | [phone] | | [facility] | | [address] | | | - LABORATORY | | [...] [address] | [place] | [phone] | | [facility] | | [address] | | | - LABORATORY | | [...] | | | | | | | 6205-3369 Use NIGHT DOSE for | | | | | | | doses scheduled: HS, 3AM, | | | | | | | Nighttime 3812-9605, | | | | | | + [...] | | | | | | | 3006-4905 Use NIGHT DOSE for | | | | | | | doses scheduled: HS, 3AM, | | | | | | | Nighttime 3496-6596, | | | | | | + [...] | | | | | NPO, Daytime 4210-5850 Use NIGHT | | | | | | | DOSE for doses scheduled: | | | | | | | HS, 3AM, Nighttime 9407-4036, | | | | | | + [...] PST | | | | | Starting [facility] 05/01/17 at 2254, For | | [...]
--- OUTSIDE RECORDS SUMMARY | ~2020-03-13 | XMS | Encounter Summary ---
Demographics + + + | Address | [address] | | | [place] [address] | + + + | Home Phone [...] | [facility] | | | and Ryana | + [...] Team Providers + +------+ + | Care Plunger Scoop Operator Name | Role | Phone | + +------+ + PCP | Unavailable | + +------+ + Encounter Details +--------+ + + + + | Date | Type | Department | Care Team | Description | +--------+ + + + + | 03/11/ | Hospital | [facility] | Shivam Garzon | | | 2003 | Encounter | [address] | [address] | | | | | [place], [place] | [place], [place] | | | | | [address] | [address] | | | | | [phone] | | | +--------+ + + + [...]
--- OUTSIDE RECORDS SUMMARY | ~2020-03-13 | XMS | Encounter Summary ---
Demographics + + + | Address | [address] | | | [place] [address] | + + + | Home Phone | | + + + | Preferred Language | Unknown | + + + | Marital Status | Single | + + + | Episcopal Affiliation | 1001 | + + + | Race | White | + + + | Ethnic Group | Not or | + + + Author + + + | Author | [facility] | | | and Ryana | + + + | Organization | [facility] | | | and [...] Team Providers + +------+ + | Care Dry End Operator Name | Role | Phone | [...] + + | 05/07/ | Hospital | [facility] | Vicky Méndez | Diabetic | | 2017 - | Encounter | MED CTR ICU [address] | MD Diane [address] | ketoacidosis without | | | | [place], | [address], | coma associated | | 05/09/ | | [place] [address] | [place] [address] | with type 1 diabetes | | 2017 | | [phone] | [phone] | mellitus (HCC) | | | | | | (Primary Dx); | | | | | Dougie Yin MD | Nausea; IDDM | | | | | [address] | (insulin dependent | | | | | [place] | diabetes mellitus) | | | | | [address] | (HCC) | | | | | [...] might be different fr om the original. [place] HOSPITALIST DISCHARGE SUMMARY Pt. Name/Age/: Joni [...] information: [address] [place] [address] DENIS Paul In 1 week. Specialty: Family Nurse Practitioner Contact information: [address] [place] [address] Condition: Patient being discharged with condition improved Diet: Carb control diet Less than 30 minutes were spent on discharge and coordination of post-hospital care. Electronically signed by: Dougie Yin MD, 05/09/2017 8:42 [facility] Portions of this chart may have been created with [employer] voice recognition software. Occasi onal wrong-word [...] be sent through Care Everywhere.Diabetic Ketoac idosis (Bengali)documented in this encounter Medications at Time of [...] might be different fr om the original. [place] HOSPITALIST PROGRESS NOTE Patient: Joni Kwon : 1980: Age: 36 y.o. MedRec: [id number] Admission date: 05/07/2017 Hospital day # : [...] Procedure Component Value Units Date/Time Culture, MRSA [[id number]] Collected: 05/07/17 5203 Order Status: Completed Lab Status: Final result Updated: 05/08/17 1337 Specimen: Respiratory from Nares Culture Negative for [...] PPX: HSQ Dougie Yin MD 05/09/2017 7:57 [facility] Dougie Crawford MD - 05/08/2017 7:43 AM PST [facility] [place] HOSPITALIST PROGRESS NOTE Patient: Joni Kwon : 1980: Age: 36 y.o. MedRec: [id number] Admission date: 05/07/2017 Hospital day # : [...] significant change Confirmed by HAWA RUBIN MD ([id number]) on 05/08/2017 7:10:41 AM Basic Metabolic Panel [...] Procedure Component Value Units Date/Time Culture, MRSA [[id number]] Collected: 05/07/171730 Order Status: Sent Lab Status: [...] PPX: HSQ Dougie Yin MD 05/08/2017 7:43 [facility] Romelia Henry Pha rmD - 05/07/2017 4:17 [...] and directions X Pharmacy list names: [facility] [place] [facility] [place] [facility] [place] [employer] (Prescription Monitoring Program) X [employer] insurance reported [...] performed and electronically signed by Morenita García, Physician Liaison 05/07 16:12 Reviewed by Romelia Valdez, PharmD 05/07/2017 16:16 documented in thi s encounter H&P Notes Dougie Yin MD - 05/07/2017 4:38 PM PSTFormatting of this note might be different fr om the original. [place] HOSPITALIST HISTORY & PHYSICAL Patient: Joni Kwon : 1980: Age: 36 y.o. MedRec: [id number] Admission date: 05/07/2017 Hospital day # : 0 Physician author: Dougie Yin MD Today: 05/07/2017 CHIEF COMPLAINT: Nausea/Emesis HISTORY OF PRESENT ILLNESS: This is a 36 y.o. male with a history of DMI, Schizophrenia who presents with nausea and vo miting. The patient reports waking up in the morning and feeling nauseous. The patient lives across the street at [facility] and while walking to the hospital had [...] resolution of DKA FEN: NPO PPX: HSQ [facility] Documentation I expect this patient will be hospitalized for greater than 2-midnights and expect the post -hospital plan to be discharge to home or to an adult foster home. Electronically signed by: Dougie Yin MD 05/07/2017 16:38 [facility] documented in this e ncounter ED Notes Vicky Méndez MD - 05/07/2017 1:06 PM PSTFormatting of this note might be diffe rent from the original. [facility] Joni Kwon Emergency Department Encounter Note [address] [place] [address] PCP:Shavon Cvoington, SUPERVISOR SHUTTLE PREPARATION [phone] CHIEF COMPLAINT: Chief Complaint Patient presents with Emesis ED Room: 452/2-[facility] Joni Kwon is a 36 y.o. male [...] mellitus (HCC) Type 1 diabetes Schizophrenia ([facility]) Past Surgical History: Procedure Laterality Date [...] were reviewed along with EMS notes and longterm record s if applicable. (See chart for [...] Paul. Specialty: Family Nurse Practitioner Contact information: [address] [address] [place] [address] Current Discharge Medication List Vicky Méndez MD 05/07/17 3039 Demetria, Liat Ro RN - 05/07/2017 12:09 [...] of back pain as originally told to cash management clerk. documented in this encounter Miscellaneous Notes [...] per their request. Brody Menendez CM from [facility] in [facility] and spoke to Joni this morning [...] for nausea, elevated blood sugar l evels. Inspector Wreath visit was part of routine rounding. Spiritual Evaluation: Patient was a little groggy when I entered the room and introduced myself; he roused and wa s quite conversational. He is grateful for the care he is receiving while here, and asked me to pray for God's provision for a place to live. He is listed in the patient census as havi ng no advent preference, but his speech was indicative of some Baptist background and v alues. Spiritual Interventions: I [...] was a ttempting to go back to [place] via the [place] the other day but was too charlee seous to go and ended up in our ER. He said that Brody Menendez, his CM from [facility] in [place], [place], was expecting to pick him up at [facility] to [facility] in [place]. He said that until they had an apartment arranged for him he will stay wit h either family or friends. I obtained Joni's permission to call Brody Menendez and let hi m know that he is in the hospital and what his anticipated discharge plan is. I also obtain ed his permission to call his Mom. I called Brody ([phone]) and left a message requestin g a return call. I then called his Mom, Blossom Kwon ([phone]) and she said that she would be able to come pick him up and transfer him home after discharge [facility], [facility]. I let her know that [...] the Discharge Summary to his PCP at ([phone]). Joni also said that he will need more strips for his glucom eter. He uses the [facility] pharmacy located in [place], [place]. He had no other questions or needs at this time. I will follow up tomorrow. Electronically signed by: Krystal Bradley RN 05/08/2017 14:15 I received a call from Brody Menendez from [employer] and he said that he would call Blossom cerna and coordinate a meeting for himself and Joni either tomorrow or Friday. He also sa id that he would assist with helping him make his follow up appointments with his PCP. Elec tronically signed by: Krystal Bradley RN 05/08/2017 17:07 [facility] - Tamika Killian RN - 05/08/2017 10:53 [...] SCD pumps, continuous education provided. [facility] - Cassandra Reeves RN - 05/08/2017 6:08 [...] - 05/07/2017 4:34 PM PSTDischarge Planning: This ENDODONTICS DENTIST came to the ED to speak with Kamari. Kamari is a homeless gentleman, that is originally from [place]. He is currently living in [facility]. Kamari reports he is diabetic and has a glucometer @ the [facility] (not sure this is true because he could not report his blood glucose reading to the RN during t). He reports he has been in [place] [facility] for his ADHD and Schizophrenia. Kamari reports [employer] cut him of f when of his mental health medications but he could not tell me which. Kamari's PCP is in [facility] as well. Kamari has not decided if he will stay in or return to [place]. His mother lives in [facility]. I explained to Kamari proper ED usage (which does not apply to him today as he will be admitte d for DKA). I offered assistance with a glucometer- he refused. I offered setting him up with a PCP in [place]- he refused. CM to follow up prior to discharge regarding needs. Electronically signed by: Miracle aKn 05/07/2017 16:38 documented in this encou nter [...] ST. | [address] | [place], [place] | [phone] | | [facility] | | [address] | | | - LABORATORY | | [...] [address] | [place] | [phone] | | [facility] | | [address] | | | - LABORATORY | | [...] + | [facility] | [address] | [place] | [phone] | | [facility] | | [address] | | | - LABORATORY | | [...] | mL/min/1.73m2 | [facility] | | | Mexican | RATE,ESTIMATED | | MEDICAL | | | | mL/min/1.41w8Lmjf than | | CENTER - | | [...] [address] | [place] | [phone] | | [facility] | | [address] | | | - LABORATORY | | [...] [address] | [place] | [phone] | | [facility] | | [address] | | | - LABORATORY | | [...] [address] | [place] | [phone] | | [facility] | | [address] | | | - LABORATORY | | [...] [address] | [place] | [phone] | | [facility] | | [address] | | | - LABORATORY | | [...] 16 | 7 - 18 mg/dL | [facility] | | | | | | [facility] | | | | | | MEDICAL | | | | | | CENTER - | | | | | | LABORATORY | | + + + + + + | Creatinine | 0.82 | 0.60 - 1.30 | [facility] | | | | | mg/dL | [facility] | | | | | | MEDICAL | | | | | | CENTER - | | | | | | LABORATORY | | + + + + + + | eGFR, | >60Comment: GLOMERULAR | >=60 | [facility] | | | non- | FILTRATION | mL/min/1.73m2 | [facility] | | | [place] | RATE,ESTIMATED | | MEDICAL | | | | mL/min/1.37w1Bevz than | | CENTER - | | [...] + | [facility] | [address] | [place] | [phone] | | [facility] | | [address] | | | - LABORATORY | | [...] mL/min/1.73m2 | [facility] | | | [place] | RATE,ESTIMATED | | MEDICAL | | | | mL/min/1.98q0Uymd than | | CENTER - | | [...] ST. | [address] | [place] | [phone] | | [facility] | | [address] | | | - LABORATORY | | [...] [address] | [place] | [phone] | | [facility] | | [address] | | | - LABORATORY | | [...] + | [facility] | [address] | [place] | [phone] | | [facility] | | [address] | | | - LABORATORY | | [...] [address] | [place] | [phone] | | [facility] | | [address] | | | - LABORATORY | | [...] [address] | [place] | [phone] | | [facility] | | [address] | | | - LABORATORY | | [...] + | [facility] | [address] | [place] | [phone] | | [facility] | | [address] | | | - LABORATORY | | [...] | mL/min/1.73m2 | [facility] | | | [place] | RATE,ESTIMATED | | MEDICAL | | | | mL/min/1.54c3Ovow than | | CENTER - | | [...] [address] | [place] | [phone] | | [facility] | | [address] | | | - LABORATORY | | [...] [address] | [place] | [phone] | | [facility] | | [address] | | | - LABORATORY | | [...] [address] | [place] | [phone] | | [facility] | | [address] | | | - LABORATORY | | [...] [address] | [place] | [phone] | | [facility] | | [address] | | | - LABORATORY | | [...] mL/min/1.73m2 | [facility] | | | [place] | RATE,ESTIMATED | | MEDICAL | | | | mL/min/1.99p5Wzwx than | | CENTER - | | [...] [address] | [place] | [phone] | | [facility] | | [address] | | | - LABORATORY | | [...] [address] | [place] | [phone] | | [facility] | | [address] | | | - LABORATORY | | [...] + | [facility] | [address] | [place] | [phone] | | [facility] | | [address] | | | - LABORATORY | | [...] + | [facility] | [address] | [place] | [phone] | | [facility] | | [address] | | | - LABORATORY | | [...] [address] | [place] | [phone] | | [facility] | | [address] | | | - LABORATORY | | [...] + | [facility] | [address] | [place] | [phone] | | [facility] | | [address] | | | - LABORATORY | | [...] [address] | [place] | [phone] | | [facility] | | [address] | | | - LABORATORY | | [...] [address] | [place] | [phone] | | [facility] | | [address] | | | - LABORATORY | | [...] (H) | 7 - 18 mg/dL | [facility] | | | | | | [facility] | | | | | | MEDICAL | | | | | | CENTER - | | | | | | LABORATORY | | + + + + + + | Creatinine | 1.18 | 0.60 - 1.30 | [facility] | | | | | mg/dL | [facility] | | | | | | MEDICAL | | | | | | CENTER - | | | | | | LABORATORY | | + + + + + + | eGFR, | >60Comment: GLOMERULAR | >=60 | [facility] | | | non- | FILTRATION | mL/min/1.73m2 | [facility] | | | [place] | RATE,ESTIMATED | | MEDICAL | | | | mL/min/1.18n7Ekbq than | | CENTER - | | [...] + | [facility] | [address] | [place] | [phone] | | [facility] | | [address] | | | - LABORATORY | | [...] ST. | [address] | [place], [place] | [phone] | | [facility] | | [address] | | | - LABORATORY | | [...] [address] | [place] | [phone] | | [facility] | | [address] | | | - LABORATORY | | [...] + | [facility] | [address] | [place] | [phone] | | [facility] | | [address] | | | - LABORATORY | | [...] | | | | mmol/L | [facility] | | | | | | MEDICAL [...] mL/min/1.73m2 | [facility] | | | [place] | RATE,ESTIMATED | | MEDICAL | | | | mL/min/1.16y4Rcst than | | CENTER - | | [...] [address] | [place] | [phone] | | [facility] | | [address] | | | - LABORATORY | | [...] [address] | [place] | [phone] | | [facility] | | [address] | | | - LABORATORY | | [...] + | [facility] | [address] | [place] | [phone] | | [facility] | | [address] | | | - LABORATORY | | [...] [address] | [place] | [phone] | | [facility] | | [address] | | | - LABORATORY | | [...] eGFR, | 42 (L)Comment: | >=60 | [facility] | | | non- | GLOMERULAR FILTRATION | mL/min/1.73m2 | [facility] | | | Mexican | RATE,ESTIMATED | | MEDICAL | | | | mL/min/1.56d4Gjvv than | | CENTER - | | [...] [address] | [place] | [phone] | | [facility] | | [address] | | | - LABORATORY | | [...] + | [facility] | [address] | [place] | [phone] | | [facility] | | [address] | | | - LABORATORY | | [...] | | | | HAWA RUBIN MD ([id number]) | | | | | | on [...] [address] | [place] | [phone] | | [facility] | | [address] | | | - LABORATORY | | [...] [address] | [place] | [phone] | | [facility] | | [address] | | | - LABORATORY | | [...] [address] | [place] | [phone] | | [facility] | | [address] | | | - LABORATORY | | [...] [address] | [place] | [phone] | | [facility] | | [address] | | | - LABORATORY | | [...] (H) | 7 - 18 mg/dL | [facility] | | | | | | [facility] | | | | | | MEDICAL | | | | | | CENTER - | | | | | | LABORATORY | | + + + + + + | Creatinine | 1.69 (H) | 0.60 - 1.30 | [facility] | | | | | mg/dL | [facility] | | | | | | MEDICAL | | | | | | CENTER - | | | | | | LABORATORY | | + + + + + + | eGFR, | 46 (L)Comment: | >=60 | [facility] | | | non- | GLOMERULAR FILTRATION | mL/min/1.73m2 | [facility] | | | [place] | RATE,ESTIMATED | | MEDICAL | | | | mL/min/1.07t6Krdd than | | CENTER - | | [...] + | [facility] | [address] | [place] | [phone] | | [facility] | | [address] | | | - LABORATORY | | [...] + | [facility] | [address] | [place] | [phone] | | [facility] | | [address] | | | - LABORATORY | | [...] [address] | [place] | [phone] | | [facility] | | [address] | | | - LABORATORY | | [...] + | [facility] | [address] | [place] | [phone] | | [facility] | | [address] | | | - LABORATORY | | [...] | | | | | NPO, Daytime 0981-4890 Use NIGHT | | | | | | | DOSE for doses scheduled: | | | | | | | HS, 3AM, Nighttime 3895-2155, | | | | | | + [...]
--- OUTSIDE RECORDS SUMMARY | ~2020-03-13 | XMS | Encounter Summary ---
Demographics + + + | Address | [address] | | | [place] [address] | + + + | Home Phone [...] Team Providers + +------+ + | Care Lamp Shade Assembler Name | Role | Phone | + [...] | patient leaving | | | | [address] | | prior to being seen | | | | [phone] | | by health care | | [...] J?MRN: | | | | | | [id number] | | | [id number] | | | his | | | [...] | | | St. | | | [place] | | | y | | | [...] | | | St. | | | [place] | | | y H. | | [...] | | | St. | | | [place] | | | y H. | | [...] | | | St. | | | [place] | | | y H. | | [...] | | | St. | | | [place] | | | y H. | | [...] | | | St. | | | [place] | | | y H. | | [...] | | | St. | | | [place] | | | y | | | [...] | | | ext. | | | [address] | | | or go | | [...]
--- OUTSIDE RECORDS SUMMARY | ~2020-03-13 | XMS | Encounter Summary ---
Demographics + + + | Address | [address] | | | [place] [address] | + + + | Home Phone [...] Team Providers + +------+ + | Care Services Delivery Driver Name | Role | Phone | + +------+ + PCP | Unavailable | + +------+ + Encounter Details +--------+ + + + + | Date | Type | Department | Care Team | Description | +--------+ + + + + | 12/19/ | Hospital | [facility] | Zeus Wilcox MD, | | | 1999 - | Encounter | [facility] | [address] [place] [address] | | | | | [place], [place] | [place] [address] | | | 12/21/ | | [address] | [phone] | | | 1999 | | [phone] | | | +--------+ + + + [...]
--- OUTSIDE RECORDS SUMMARY | ~2020-03-13 | XMS | Encounter Summary ---
Demographics + + + | Address | [address] | | | [place] [address] | + + + | Home Phone [...] Author + + + | Author | [facility] | | | and Ryana | + + + | Organization | [facility] | | [...] Team Providers + +------+ + | Care Protective Officer Name | Role | Phone | + [...] Provider Unknown | | | | | [place], [place] | | | | | | [address] | (Fax) | | | | | [phone] | | | +--------+ + + + [...]
--- OUTSIDE RECORDS SUMMARY | ~2020-03-13 | XMS | Encounter Summary ---
Demographics + + + | Address | [address] | | | [place] [address] | + + + | Home Phone [...] Team Providers + +------+ + | Care Primary Care Nurse Name | Role | Phone | + +------+ + PCP | Unavailable | + +------+ + Encounter Details +--------+ + + + + | Date | Type | Department | Care Team | Description | +--------+ + + + + | 03/05/ | [facility] | ROGELIO TALAMANTES | Abhi Berger | | | 2003 | Encounter | FAMILY MEDICINE [address] | MD [address] | | | | | [address] [place] | [place], [place] | | | | | [place] [address] | [address] | | | | | [phone] | | | +--------+ + + + [...]
--- OUTSIDE RECORDS SUMMARY | ~2020-03-13 | XMS | Encounter Summary ---
Demographics + + + | Address | [address] | | | [place] [address] | + + + | Home Phone [...] Team Providers + +------+ + | Care Fork Truck Driver Name | Role | Phone | [...] + + | 09/23/ | Emergency | SHRUTHIMALeslie ROJAS CLEMENTE | Castro Adi | Hyperglycemia | | 2017 - | | [facility] | Alexander Craig MD | (Primary Dx); | | | | CENTER [address] | [address] | Genital edema, male | | 09/24/ | | [place], [place] | [place], [place] | | | 2016 | | [address] | [phone] | | | | | [phone] | | | +--------+ + + + [...] | | 0 | | | | RP-Flphjhzwhtrgw-Wtj | mouth Daily as | | | [...] might be d ifferent from the original. [facility] Joni Kwon Emergency Department Encounter Note [address] [place] [address] PCP:DENIS Paul [phone] eMERGENCY dEPARTMENT eNCOUnter CHIEF COMPLAINT Chief Complaint Patient presents with Back Pain Back Swelling Leg Swelling TRIAGE ED Triage Notes Balwinder Ahn RN 09/23/2016 22:17 Low back pain and swelling, states legs, feet and genitals are also swollen. Patient discha rged from [facility] yesterday after being admitted for DKA. States he started taking levam ir recently and every time he take this insulin then his legs and feet swell. Original note by Balwinder Ahn RN at 09/23/2016 22:15 Balwinder Ahn RN 09/23/2016 22:15 Low back pain and swelling, states legs, feet and genitals are also swollen. Patient discha rged from [facility] yesterday after being admitted for DKA Addendum to note by Balwinder Ahn RN at 09/23/2016 22:17 HPI Joni Kwon is a 35 y.o. male who presents with significant lower back edema and genital edema. Patient states he was in the hospital 2 days ago at [facility] for diabe tic ketoacidosis. He states they [...] Take 100 mg by mouth every morning. AI-EQFPDNYVTYCEA-MHFRTTEJCUIMX 10-5-325 MG CAPS Take 1 capsule by [...] deficits noted, no facial assymetry noted. 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 He does not appear to be in acute distress at this point. Follow-up Information Follow up with DENIS Paul In 2 days. Specialty: Family Nurse Practitioner Contact information: [address], [place] [address] [place] [address] New Prescriptions HYDROCODONE-ACETAMINOPHEN (NORCO) 5-325 MG PER TABLET Take 1-2 tablets by mouth every 6 hours as needed for Pain. FINAL IMPRESSION 1. Hyperglycemia 2. Genital edema, male Portions of this chart may have been created with [employer] voice recognition software. Occasi onal wrong-word or [...] genitals are also swollen. Patient discharged from [facility] yester day after being admitted for DKA. [...] + | [facility] | [address] | [place] | [phone] | | [facility] | | [address] | | | - LABORATORY | | [...] + | [facility] | [address] | [place] | [phone] | | [facility] | | [address] | | | - LABORATORY | | [...] + | [facility] | [address] | [place] | [phone] | | [facility] | | [address] | | | - LABORATORY | | [...] [address] | [place] | [phone] | | [facility] | | [address] | | | - LABORATORY | | [...] | | | | mmol/L | [facility] | | | | [...] | | | | | | [facility] | | | | | | MEDICAL [...] | 1.01 | 0.60 - 1.30 | [facility] | | | | | mg/dL | [facility] | | | | | | MEDICAL | | | | | | CENTER - | | | | | | LABORATORY | | + + + + + + | eGFR, | >60Comment: GLOMERULAR | >=60 | [facility] | | | non- | FILTRATION | mL/min/1.73m2 | [facility] | | | Sudanese | RATE,ESTIMATED | | MEDICAL | | | | mL/min/1.89q5Iulr than | | CENTER - | | [...] [address] | [place] | [phone] | | [facility] | | [address] | | | - LABORATORY | | [...] [address] | [place] | [phone] | | [facility] | | [address] | | | - LABORATORY | | [...]
--- OUTSIDE RECORDS SUMMARY | ~2020-03-13 | XMS | Encounter Summary ---
Demographics + + + | Address | [address] | | | [place] [address] | + + + | Home Phone [...] Team Providers + +------+ + | Care Electrician Journeyman Wireman Name | Role | Phone | + [...] 2017 | | [facility] | [address] | diabetes mellitus | | | | CENTER [address] | [address] | with hyperglycemia | | | | [place], [place] | [place] [address] | ([facility]) (Primary Dx); | | | | [address] | [phone] | Type 2 diabetes | | | | [phone] | | mellitus without | | | | | | complication, with | | | | | | long-term current | | | | | | use of insulin | | | | | | ([facility]); Chest pain in | | | | [...] might be different fro m the original. [facility] Joni Kwon Emergency Department Encounter Note [address] [place] [address] PCP:Shavon Covington, DENIS [phone] CHIEF COMPLAINT: Chief [...] high today. [facility]. He reports a slight cough. He says [...] He reports prior psychiatric evaluations in the [place] and [place] areas and they did not feel he [...] distress. Thin. 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 Hi [...] Nurse Practitioner Why: For re-check Contact information: [address], [facility] [[email or web address]] [address] [place] [address] Discharge Instructions Get glucometer and resume checking your glucose at least twice daily. Increase oral fluids when sugar is high Portions of this chart may have been created with [employer] voice recognition software. Occasi onal wrong-word or [...] J?MRN: | | | | | | [id number] | | | [id number] | | | his | | | [...] | | | St. | | | [place] | | | y | | | [...] | | | St. | | | [place] | | | y H. | | [...] | | | St. | | | [place] | | | y H. | | [...] | | | St. | | | [place] | | | y H. | | [...] | | | St. | | | [place] | | | y H. | | [...] | | | St. | | | [place] | | | y H. | | [...] | | | St. | | | [place] | | | y | | | [...] | | | ext. | | | [address] | | | or go | | [...] | | | [place] | | | [facility], | | | [place] - | [...] [address] | [place] | [phone] | | [facility] | | [address] | | | - LABORATORY | | [...] mL/min/1.73m2 | [facility] | | | [place] | RATE,ESTIMATED | | MEDICAL | | | | mL/min/1.12q9Izab than | | CENTER - | | [...] [address] | [place] | [phone] | | [facility] | | [address] | | | - LABORATORY | | [...] | | | | | [place] ([id number]) on | | | | | | [...] [address] | [place] | [phone] | | [facility] | | [address] | | | - LABORATORY | | [...] | [employer] | | | [facility] | | | | | | MEDICAL [...] [address] | [place] | [phone] | | [facility] | | [address] | | | - LABORATORY | | [...] [address] | [place] | [phone] | | [facility] | | [address] | | | - LABORATORY | | [...] + | [facility] | [address] | [place] | [phone] | | [facility] | | [address] | | | - LABORATORY | | [...] mL/min/1.73m2 | [facility] | | | [place] | RATE,ESTIMATED | | MEDICAL | | | | mL/min/1.27p5Dmad than | | CENTER - | | [...] 3.5 | 3.2 - 5.0 g/dL | [facility] | | | | | | LYNN [...] + | [facility] | [address] | [place] | [phone] | | [facility] | | [address] | | | - LABORATORY | | [...] [address] | [place] | [phone] | | [facility] | | [address] | | | - LABORATORY | | [...] [address] | [place] | [phone] | | [facility] | | [address] | | | - LABORATORY | | [...]
--- OUTSIDE RECORDS SUMMARY | ~2020-03-13 | XMS | Encounter Summary ---
Demographics + + + | Address | [address] | | | [place] [address] | + + + | Home Phone [...] Team Providers + +------+ + | Care Facilities Supervisor Name | Role | Phone | [...] | | | | | | | ([facility]) | | | | | | [...] | | | | | | | ([facility]) | | | +--------+--------+ + + + + Encounter Details +--------+ + + + + | Date | Type | Department | Care Team | Description | +--------+ + + + + | 09/26/ | Hospital | [facility] | Juanjose Ross MD | Diabetic | | 2016 - | Encounter | [facility] | [address] [facility] | ketoacidosis without | | | | [address] [place] | [place] | coma associated | | 09/28/ | | [place] [address] | [address] | with type 1 diabetes | | 2017 | | [phone] | | mellitus (HCC) | | | | | Yancy Barron MD | (Primary Dx); | | | | | [address] | Hyperkalemia; Acute | | | | | [place] | renal failure, | | | | | [address] | unspecified acute | | | | [...] Specialty: Family Nurse Practitioner Contact information: [address] [facility] [address] [facility] [address] [place] [address] Discharge Medications Unchanged Medications Details insulin glargine 100 units/mL injection (vial) Inject 9 Units under the skin 2 times daily. aka: LANTUS insulin lispro 100 units/mL injection (cartridge) Inject 2 Units under the skin 3 times daily (before meals). Plus sliding scale. aka: humaLOG Discontinued Medications aspirin 81 mg chewable tablet PV-Tsoyxyonoslvu-Rmevztycdevhe 10-5-325 MG Caps HYDROcodone-acetaminophen 5-325 mg per tablet aka: NORCO STRATTERA 100 MG capsule Generic drug: atoMOXetine Studies With Pending Results: None Greater than 30 minutes were spent on discharge and coordination of post-hospital care. Electronically signed by: Yancy Barron MD, 09/28/2016 13:20 [facility] documented in this enc ounter [...] [x] Pharmacy list names: Anthony Morris [] [facility] BINDER FIXER (Prescription Monitoring Program) [x] [employer] insurance reported [...] Marijuana lungs 3 times weekly unknown Other: [facility] reports patient appears non-compliant with his medications. Medication: Prior to Admission Sig: Patient taking differently STRATIGRAPHER as: Atomoxetine 100 mg 1 tablet every morning Pt states taking but last filled for 30 day suppl y in June JW-Rtigzkkqusbvv-Cjnuylvagtkts 10-5-325 mg 1 capsule daily as needed [...] performed and electronically signed by Luis Araujo, Music Library Assistant 017 19:12 Reviewed by: Hannah Mijares PHARMD 09/27/2016 19:55 documented in this encounter H&P Notes Juanjose Ross MD - 09/27/2016 12:14 AM PDT [facility] HISTORY AND PHYSICAL Pt. Name/Age/: Joni [...] Take 100 mg by mouth every morning. VO-Gkmrcioethpbm-Flycuhxwqhrpa 10-5-325 MG CAPS Take 1 capsule by [...] signed by: Juanjose Ross MD 09/27/2016 3:31 [facility] documented in this enc ounter Consult [...] Needs: (based on 55 kg) Kcal needs: 1691-5079 Kcals/day Protein needs:65-80 grams of protein/day Fluid goal:9618-5727 cc fluid per day Nutrition Diagnosis: Severe [...] in 3 days. Available as needed, ext [phone] Assessment: Diet Order: For your reference, current, [...] 12:01 PM PDTAssociated Order(s): IP CONSULT TO INSIDE SALES LEAD manager utility Patricia called to request strips for this [...] Take 100 mg by mouth every morning. RH-MTAFJDUNUOLLQ-SINMQWNVSOANO 10-5-325 MG CAPS Take 1 capsule by [...] by me Rhythm: Sinus tachycardia Rate: 115 [place]: normal Ectopy: none Conduction: normal ST Segments: [...] consultation initiated. - Pt will be instructed continuous washer operator light use, room lighting will be maintained [...] consultation initiated. - Pt will be instructed continuous washer operator light use, room lighting will be maintained appopriately, r oom will be kept clutter free. grippy socks will be used when out of bed. RESTRAINT-RELATED GOALS: STRATEGIES TO ACHIEVE RESTRAINT GOALS: Outcome: Improving Goal Evaluation: Insulin drip off around 10 am. Requesting small frequent snacks. VSS. Glucose prior to d inner 383, covered per SS insulin. To transfer to [address] [place] [address] on telemetry. Report to Hira Vyas RN [...] Outcomes: Patient seemed to be appreciative of reading recovery teacher's visit. Spiritual Goals / Follow-up: Will see the patient as requested. If there are any other spiritual care issues that arise, please contact reading recovery teacher. lan of Care - Ursula Haskins RN [...] that his PCP is DENIS Diallo, in [place], [place], and that is where both his mother and he stay. When asking him if his mother was going to transport him home, he stated he was not sure at this time. He just has been admitted so CM will work with him at a later time regarding where he will be going and with what transport. He does have [facility] Medicaid. He states that he has [...] need to address patient's food issues. Per manager gaming, patient stated that he d oes not [...] + | [facility] | [address] | [place] | [phone] | | [facility] | | [address] | | | - LABORATORY | | [...] + | [facility] | [address] | [place] | [phone] | | [facility] | | [address] | | | - LABORATORY | | [...] mL/min/1.73m2 | [facility] | | | [place] | RATE,ESTIMATED | | MEDICAL | | | | mL/min/1.70v2Bivq than | | CENTER - | | [...] [address] | [place] | [phone] | | [facility] | | [address] | | | - LABORATORY | | [...] [address] | [place] | [phone] | | [facility] | | [address] | | | - LABORATORY | | [...] + | [facility] | [address] | [place] | [phone] | | [facility] | | [address] | | | - LABORATORY | | [...] [address] | [place] | [phone] | | [facility] | | [address] | | | - LABORATORY | | [...] ST. | [address] | [place], [place] | [phone] | | [facility] | | [address] | | | - LABORATORY | | [...] [address] | [place] | [phone] | | [facility] | | [address] | | | - LABORATORY | | [...] (H) | 7 - 18 mg/dL | [facility] | | | | | | [facility] | | | | | | MEDICAL | | | | | | CENTER - | | | | | | LABORATORY | | + + + + + + | Creatinine | 1.21 | 0.60 - 1.30 | [facility] | | | | | mg/dL | [facility] | | | | | | MEDICAL | | | | | | CENTER - | | | | | | LABORATORY | | + + + + + + | eGFR, | >60Comment: GLOMERULAR | >=60 | [facility] | | | non- | FILTRATION | mL/min/1.73m2 | [facility] | | | [place] | RATE,ESTIMATED | | MEDICAL | | | | mL/min/1.50v9Keqb than | | CENTER - | | [...] [address] | [place] | [phone] | | [facility] | | [address] | | | - LABORATORY | | [...] ST. | [address] | [place] | [phone] | | [facility] | | [address] | | | - LABORATORY | | [...] [address] | [place] | [phone] | | [facility] | | [address] | | | - LABORATORY | | [...] mL/min/1.73m2 | [facility] | | | [place] | RATE,ESTIMATED | | MEDICAL | | | | mL/min/1.65u0Xrfi than | | CENTER - | | [...] + | [facility] | [address] | [place] | [phone] | | [facility] | | [address] | | | - LABORATORY | | [...] - 1.030 | [facility] | | | [place], | | | [facility] | | [...] [address] | [place] | [phone] | | [facility] | | [address] | | | - LABORATORY | | [...] [address] | [place] | [phone] | | [facility] | | [address] | | | - LABORATORY | | [...] ST. | [address] | [place], [place] | [phone] | | [facility] | | [address] | | | - LABORATORY | | [...] mL/min/1.73m2 | [facility] | | | [place] | RATE,ESTIMATED | | MEDICAL | | | | mL/min/1.65e0Ncsa than | | CENTER - | | [...] [address] | [place] | [phone] | | [facility] | | [address] | | | - LABORATORY | | [...] [address] | [place] | [phone] | | [facility] | | [address] | | | - LABORATORY | | [...] [address] | [place] | [phone] | | [facility] | | [address] | | | - LABORATORY | | [...] [address] | [place] | [phone] | | [facility] | | [address] | | | - LABORATORY | | [...] + | [facility] | [address] | [place] | [phone] | | [facility] | | [address] | | | - LABORATORY | | [...] | mL/min/1.73m2 | [facility] | | | [place] | RATE,ESTIMATED | | MEDICAL | | | | mL/min/1.42l1Zcpe than | | CENTER - | | [...] [address] | [place] | [phone] | | [facility] | | [address] | | | - LABORATORY | | [...] + | [facility] | [address] | [place] | [phone] | | [facility] | | [address] | | | - LABORATORY | | [...] | | | POC | | | [facility] | | | | | [...] [address] | [place] | [phone] | | [facility] | | [address] | | | - LABORATORY | | [...] ST. | [address] | [place] | [phone] | | [facility] | | [address] | | | - LABORATORY | | [...] [address] | [place] | [phone] | | [facility] | | [address] | | | - LABORATORY | | [...] (H) | 7 - 18 mg/dL | [facility] | | | | | | [facility] | | | | | | MEDICAL | | | | | | CENTER - | | | | | | LABORATORY | | + + + + + + | Creatinine | 1.72 (H) | 0.60 - 1.30 | [facility] | | | | | mg/dL | [facility] | | | | | | MEDICAL | | | | | | CENTER - | | | | | | LABORATORY | | + + + + + + | eGFR, | 45 (L)Comment: | >=60 | [facility] | | | non- | GLOMERULAR FILTRATION | mL/min/1.73m2 | [facility] | | | [place] | RATE,ESTIMATED | | MEDICAL | | | | mL/min/1.73w7Ewdv than | | CENTER - | | [...] [address] | [place] | [phone] | | [facility] | | [address] | | | - LABORATORY | | [...] [address] | [place] | [phone] | | [facility] | | [address] | | | - LABORATORY | | [...] + | [facility] | [address] | [place] | [phone] | | [facility] | | [address] | | | - LABORATORY | | [...] + | [facility] | [address] | [place] | [phone] | | [facility] | | [address] | | | - LABORATORY | | [...] ST. | [address] | [place], [place] | [phone] | | [facility] | | [address] | | | - LABORATORY | | [...] mL/min/1.73m2 | [facility] | | | [place] | RATE,ESTIMATED | | MEDICAL | | | | mL/min/1.29m9Xmos than | | CENTER - | | [...] [address] | [place] | [phone] | | [facility] | | [address] | | | - LABORATORY | | [...] ST. | [address] | [place] | [phone] | | [facility] | | [address] | | | - LABORATORY | | [...] + | [facility] | [address] | [place] | [phone] | | [facility] | | [address] | | | - LABORATORY | | [...] [address] | [place] | [phone] | | [facility] | | [address] | | | - LABORATORY | | [...] [address] | [place] | [phone] | | [facility] | | [address] | | | - [...] [address] | [place] | [phone] | | [facility] | | [address] | | | - LABORATORY | | [...] + | [facility] | [address] | [place] | [phone] | | [facility] | | [address] | | | - LABORATORY | | [...] mL/min/1.73m2 | [facility] | | | [place] | RATE,ESTIMATED | | MEDICAL | | | | mL/min/1.18l1Ttwx than | | CENTER - | | [...] + | [facility] | [address] | [place] | [phone] | | [facility] | | [address] | | | - LABORATORY | | [...] [address] | [place] | [phone] | | [facility] | | [address] | | | - LABORATORY | | [...] + | [facility] | [address] | [place], [place] | [phone] | | [facility] | | [address] | | | - LABORATORY | | [...] MD | | | | | | ([id number]) on 09/27/2016 | | | | | [...] + | [facility] | [address] | [place] | [phone] | | [facility] | | [address] | | | - LABORATORY | | [...] ST. | [address] | [place], [place] | [phone] | | [facility] | | [address] | | | - LABORATORY | | [...] (H) | 7 - 18 mg/dL | [facility] | | | | | | [facility] | | | | | | MEDICAL | | | | | | CENTER - | | | | | | LABORATORY | | + + + + + + | Creatinine | 2.25 (H) | 0.60 - 1.30 | [facility] | | | | | mg/dL | [facility] | | | | | | MEDICAL | | | | | | CENTER - | | | | | | LABORATORY | | + + + + + + | eGFR, | 33 (L)Comment: | >=60 | [facility] | | | non- | GLOMERULAR FILTRATION | mL/min/1.73m2 | [facility] | | | [place] | RATE,ESTIMATED | | MEDICAL | | | | mL/min/1.51t0Oxpp than | | CENTER - | | [...] [address] | [place] | [phone] | | [facility] | | [address] | | | - LABORATORY | | [...] ST. | [address] | [place] | [phone] | | [facility] | | [address] | | | - LABORATORY | | [...] | [employer] | | | [facility] | | | | | [...] [address] | [place] | [phone] | | [facility] | | [address] | | | - LABORATORY | | [...] + | [facility] | [address] | [place], [place] | [phone] | | [facility] | | [address] | | | - LABORATORY | | [...] [address] | [place] | [phone] | | [facility] | | [address] | | | - LABORATORY | | [...] [address] | [place] | [phone] | | [facility] | | [address] | | | - LABORATORY | | [...] + | [facility] | [address] | [place] | [phone] | | [facility] | | [address] | | | - LABORATORY | | [...] | | POC | | | [facility] | | | | | [...] ST. | [address] | [place] | [phone] | | [facility] | | [address] | | | - LABORATORY | | [...] | | | | | | | 2843-7265 Use NIGHT DOSE for | | | | | | | doses scheduled: HS, 3AM, | | | | | | | Nighttime 2210-3581, | | | | | | + [...] | | | | | NPO, Daytime 3747-1743 Use NIGHT | | | | | | | DOSE for doses scheduled: | | | | | | | HS, 3AM, Nighttime 8736-1031, | | | | | | + [...] PDT | | | | | ONCE, [facility] 09/26/16 at 2305, For 1 | | [...] PDT | | | | | ONCE, [facility] 09/26/16 at 2355, For 1 | | [...]
--- OUTSIDE RECORDS SUMMARY | ~2020-03-13 | XMS | Encounter Summary ---
Demographics + + + | Address | [address] | | | [place] [address] | + + + | Home Phone [...] Providers + +------+ + | Care Manager Retail Sales Name | Role | Phone | + +------+ + PCP | Unavailable | + +------+ + Encounter Details +--------+ + + + + | Date | Type | Department | Care Team | Description | +--------+ + + + + | 02/23/ | [facility] | ROGELIO TALAMANTES | Abhi Berger | | | 2003 | Encounter | FAMILY [facility]INE [address] | MD [address] | | | | | [address] | [place], [place] | | | | | [place] [address] | [address] | | | | | [phone] | | | +--------+ + + + [...]
--- OUTSIDE RECORDS SUMMARY | ~2020-03-13 | XMS | Encounter Summary ---
Demographics + + + | Address | [address] | | | [place] [address] | + + + | Home Phone [...] Team Providers + +------+ + | Care Results Engineer Name | Role | Phone | [...] + + | 04/09/ | Emergency | [facility] L[facility]NN | Adi Castro | Hyperglycemia | | 2017 | | [facility] | Alexander Craig MD | (Primary Dx) | | | | CENTER [address] | [address] | | | | | [place] | [place] | | | | | [address] | [address] | | | | | [phone] | | | +--------+ + + + [...] might be d ifferent from the original. [facility] Joni Kwon Emergency Department Encounter Note [address] [place] [address] PCP:DENIS Paul [phone] eMERGENCY dEPARTMENT eNCOUnter CHIEF [...] deficits noted, no facial assymetry noted. 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 Occasi onal wrong-word or [...] J?MRN: | | | | | | [id number] | | | [id number] | | | his | | | [...] | | | St. | | | [place] | | | y H. | | [...] | | | St. | | | [place] | | | y H. | | [...] | | | St. | | | [place] | | | y H. | | [...] | | | St. | | | [place] | | | y H. | | [...] | | | St. | | | [place] | | | y H. | | [...] | | | St. | | | [place] | | | y | | | [...] + | [facility] | [address] | [place] | [phone] | | [facility] | | [address] | | | - LABORATORY | | [...] | | POC | | | [facility] | | | | | | [...] [address] | [place], [place] | [phone] | | [facility] | | [address] | | | - LABORATORY | | [...] | | | Dictated and Signed by: Braeedn Siddiqui MD | | Electronically signed: 04/09/2017 [...] | Excess, | | mmol/L | [facility] | | | Extracellul | | | [...] [address] | [place] | [phone] | | [facility] | | [address] | | | - LABORATORY | | [...] + | [facility] | [address] | [place] | [phone] | | [facility] | | [address] | | | - LABORATORY | | [...] + | [facility] | [address] | [place] | [phone] | | [facility] | | [address] | | | - LABORATORY | | [...] [address] | [place] | [phone] | | [facility] | | [address] | | | - LABORATORY | | [...] 14 | 7 - 18 mg/dL | [facility] | | | | | | [facility] | | | | | | MEDICAL | | | | | | CENTER - | | | | | | LABORATORY | | + + + + + + | Creatinine | 0.93 | 0.60 - 1.30 | [facility] | | | | | mg/dL | [facility] | | | | | | MEDICAL | | | | | | CENTER - | | | | | | LABORATORY | | + + + + + + | eGFR, | >60Comment: GLOMERULAR | >=60 | [facility] | | | non- | FILTRATION | mL/min/1.73m2 | [facility] | | | Faroese | RATE,ESTIMATED | | MEDICAL | | | | mL/min/1.53s7Hnzi than | | CENTER - | | [...] ST. | [address] | [place], [place] | [phone] | | [facility] | | [address] | | | - LABORATORY | | [...] | | Eosinophils | | K/uL | [facility] | | | | | | MEDICAL | | | | | | CENTER - | | | | | | LABORATORY | | + + + + + + | Absolute | 0.00 | 0.00 - 0.10 | [facility] | | | Basophils | | K/uL | [facility] | | | | | [...] [address] | [place] | [phone] | | [facility] | | [address] | | | - LABORATORY | | [...] 1.001 - 1.030 | | | | [place], | | | | | | U[facility], [...] [address] | [place] | [phone] | | [facility] | | [address] | | | - LABORATORY | | [...]
--- OUTSIDE RECORDS SUMMARY | ~2020-03-13 | XMS | Encounter Summary ---
Demographics + + + | Address | [address] | | | [place] [address] | + + + | Home Phone [...] Team Providers + +------+ + | Care Mingle Operator Name | Role | Phone | [...] | 05/07/ | Emergency | [facility] | Adi Castro | Vomiting, | | 2017 | | [facility] | Alexander Craig MD | intractability of | | | | CENTER [address] | [address] | vomiting not | | | | [place], [place] | [place], [place] | specified, presence | | | | [address] | [address] | of nausea not | | | | [phone] | | specified, | | | | [...] Craig MD - 05/07/2017 7:35 AM PST [facility] Joni Kwon Emergency Department Encounter Note [address] [place] [address] PCP:DENIS Paul [phone] eMERGENCY dEPARTMENT eNCOUnter CHIEF [...] deficits noted, no facial assymetry noted. 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 Occasi onal wrong-word or [...] J?MRN: | | | | | | [id number] | | | [id number] | | | his | | | [...] | | St. | | | [place] | | | y | | [...] | | St. | | | [place] | | | y | | [...] | | St. | | | [place] | | | y H. | [...] | | St. | | | [place] | | | y H. | [...] | | St. | | | [place] | | | y H. | [...] | | St. | | | [place] | | | y H. | [...] | | St. | | | [place] | | | y H. | [...] | | St. | | | [place] | | | y | | [...] | | | ext. | | | [phone] | | | or go | | [...]
--- OUTSIDE RECORDS SUMMARY | ~2020-03-13 | XMS | Encounter Summary ---
Demographics + + + | Address | [address] | | | [place] [address] | + + + | Home Phone [...] Providers + +------+ + | Care Director Corporate Security Name | Role | Phone | + +------+ + PCP | Unavailable | + +------+ + Encounter Details +--------+ + + + + | Date | Type | Department | Care Team | Description | +--------+ + + + + | 06/19/ | [facility] | ROGELIO TALAMANTES | Abhi Berger | | | 2003 | Encounter | FAMILY MEDICINE [address] | MD [address] | | | | | [place] | [place], [place] | | | | | [place] [address] | [address] | | | | | [phone] | | | +--------+ + + + [...]
--- OUTSIDE RECORDS SUMMARY | ~2020-03-13 | XMS | Encounter Summary ---
Demographics + + + | Address | [address] | | | [place] [address] | + + + | Home Phone [...] Team Providers + +------+ + | Care Naturopathic Physician Name | Role | Phone | + [...] + + | 10/03/ | Hospital | [facility] | Edgar Nunez, | Diabetic | | 2017 - | Encounter | [facility] ICU [address] | MD [address] | ketoacidosis without | | | | [place], | [place], [place] | coma associated | | 10/04/ | | [place] [address] | [address] | with type 1 diabetes | | 2017 | | [phone] | | mellitus (HCC) | | | | | Efren Burnham P, | (Primary Dx); | | | | | DO [address] | Hyperkalemia; Acute | | | | | MS LLH21 GABBIE, | kidney injury (HCC); | | | | | [place] [address] | Acute hyperkalemia; | | | | | [phone] | Acute renal | | | | [...] type | | | | | | ([facility]); Sensation of | | | | [...] Consultants: None Reason for Admission: Per Dr uBrnham " This is a 35 y.o. male with a history of type I diabetes mellitus who acco rding to his mother has been noncompliant with his insulin and recent history of 2 admission s to the hospital with recurrent DKA within last month, he was admitted here at [facility] 09/26 through 09/28 and then week later was admitted at [facility] for the DKA a s well. [...] signed by: Siddhartha Pierson MD, 10/04/2016 8:33 [facility] documented in this encounter Discharge Instructions Instructions [...] resources below can help you learn more: [employer] Yqhnckycfxg067-994-2214vbg.diabetes.org Lighthouse Qsexdyrjpzfol343-496-8939yyr.lighthouse.org National Eye [phone] www.nei.nih.gov Hormone Health [phone] www.hormone.org Date Last Reviewed: 10/22/201519993561-8751 [employer]. [address] [place] [address], [place] [address]. All righ ts reserved. This information is [...] [facility]art garcia and [facility] garcia [x] [facility] MINE WEDGE SAWYER (Prescription Monitoring Program) [x] [employer] insurance reported [...] performed and electronically signed by Morenita García, Assistant News Director 7 19:25 Reviewed by: Hannah Mijares PHARMD 10/03/2016 19:41 documented in this encounter H&P Notes Efren Burnham DO - 10/03/2016 6:09 AM PDTFormatting of this note might be different f rom the original. [facility] HISTORY & PHYSICAL Patient: Joni Kwon : 1980: Age: 35 y.o. MedRec: [id number] PCP: DENIS Paul Admission date: 10/03/2016 Hospital [...] last month, he was admitted here at [place] from 09/26 through and then week later was admitted at [facility] for the DKA as well. rDein g to patient's mother he has history [...] CKTOTAL No results for input(s): PHART, PO2ART, LCI6QSX, FAH2OKQ, BEART, B4JIHQRW in the last 168 h ours. Recent [...] Nunez patient used to live in a mcfp in [place] and was doing much better then with his diabetes control. She told Dr. Nunez that she is unable to take care of him at this point. - since this is patient's 3rd admission to the hospital for DKA, patient is high risk to re turning back to his previous living situation. - will obtain case management consult for placement in a mcfp again. Nausea and vomiting in adult - [...] signed by: Efren Burnham DO 10/03/2016 6:09 [facility] Dot phrase reference: VSHOSP (VS in table, last 24 hours) MEYLAB (various labs to pull in) DT (date and time) LABRCNTIP[K:3,Na:3 (last 3 sets of labs using potassium and sodium as examples) HGB HCT PLT INR GLU POCGLU Na K BUN CREA, CALCIUM TROPONINI BNP DIGOXIN Portions of this chart may have been created with [employer]eb[employer] voice recognition software. Occasi onal wrong-word or [...] Patient was admitted 2 weeks ago to [facility] for DKA and one week ago [...] sugar was high. He lives in [facility]. His mother blake ried to drive him here and stopped in [place] to have paramedics transfer him to [facility]. He has not had any fevers. He [...] by me Rhythm: Sinus tachycardia Rate: 127 [place]: normal Ectopy: none Conduction: normal ST Segments: [...] compliance. 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 VSS, no distress, all questions answered, ambulatory off unit, pt had no further q uestions lan of Codi Vitale RN - 10/04/2016 9:23 AM PDTBriefly revisited with Joni regarding his discharge and living situation. He states he lives with his sister and his mom in [place], he has discharge orders and redmond s [...] He reports he lives with family in [place]. He also reports he is independent with all of his ADL's, he does not use any DME, oxygen or CPAP. His PCP is Shavon Covington and he uses [facility]. He is unsure of what discharge needs he might have. During our conversation, he was very s oft spoken and kept his eyes closed. Admitting provider placed CM consult for placement into a mcfp, will revisit with Kamari gardiner at another [...] + | [facility] | [address] | [place] | [phone] | | [facility] | | [address] | | | - LABORATORY | | [...] + | [facility] | [address] | [place], [place] | [phone] | | [facility] | | [address] | | | - LABORATORY | | [...] mL/min/1.73m2 | [facility] | | | Italian | RATE,ESTIMATED | | MEDICAL | | | | mL/min/1.74y9Okxg than | | CENTER - | | [...] [address] | [place] | [phone] | | [facility] | | [address] | | | - LABORATORY | | [...] + | [facility] | [address] | [place], [place] | [phone] | | [facility] | | [address] | | | - LABORATORY | | [...] [address] | [place] | [phone] | | [facility] | | [address] | | | - LABORATORY | | [...] ST. | [address] | [place], [place] | [phone] | | [facility] | | [address] | | | - LABORATORY | | [...] [address] | [place] | [phone] | | [facility] | | [address] | | | - LABORATORY | | [...] + | [facility] | [address] | [place] | [phone] | | [facility] | | [address] | | | - LABORATORY | | [...] [address] | [place] | [phone] | | [facility] | | [address] | | | - LABORATORY | | [...] [address] | [place] | [phone] | | [facility] | | [address] | | | - LABORATORY | | [...] 16 | 7 - 18 mg/dL | [facility] | | | | | | [facility] | | | | | | MEDICAL | | | | | | CENTER - | | | | | | LABORATORY | | + + + + + + | Creatinine | 1.00 | 0.60 - 1.30 | [facility] | | | | | mg/dL | [facility] | | | | | | MEDICAL | | | | | | CENTER - | | | | | | LABORATORY | | + + + + + + | eGFR, | >60Comment: GLOMERULAR | >=60 | [facility] | | | non- | FILTRATION | mL/min/1.73m2 | [facility] | | | Italian | RATE,ESTIMATED | | MEDICAL | | | | mL/min/1.99d9Efze than | | CENTER - | | [...] + | [facility] | [address] | [place] | [phone] | | [facility] | | [address] | | | - LABORATORY | | [...] | | | | | | [employer] | | | | | [...] + | [facility] | [address] | [place] | [phone] | | [facility] | | [address] | | | - LABORATORY | | [...] | | POC | | | [facility] | | | | | | [...] [address] | [place] | [phone] | | [facility] | | [address] | | | - LABORATORY | | [...] [address] | [place] | [phone] | | [facility] | | [address] | | | - LABORATORY | | [...] + | [facility] | [address] | [place] | [phone] | | [facility] | | [address] | | | - LABORATORY | | [...] ST. | [address] | [place], [place] | [phone] | | [facility] | | [address] | | | - LABORATORY | | [...] [address] | [place] | [phone] | | [facility] | | [address] | | | - LABORATORY | | [...] | 0.93 | 0.60 - 1.30 | [facility] [...] mL/min/1.73m2 | [facility] | | | Italian | RATE,ESTIMATED | | MEDICAL | | | | mL/min/1.84u3Adgp than | | CENTER - | | [...] [address] | [place] | [phone] | | [facility] | | [address] | | | - LABORATORY | | [...] ST. | [address] | [place], [place] | [phone] | | [facility] | | [address] | | | - LABORATORY | | [...] [address] | [place] | [phone] | | [facility] | | [address] | | | - LABORATORY | | [address] | [place] | [phone] | | [facility] | | [address] | | | - LABORATORY | | [...] [address] | [place] | [phone] | | [facility] | | [address] | | | - LABORATORY | | [...] | | Hydroxybuty | | mmol/L | [facility] | | | rate | | [...] [address] | [place] | [phone] | | [facility] | | [address] | | | - LABORATORY | | [...] 1.39 (H) | 0.60 - 1.30 | [facility] | | | | | mg/dL | [facility] | | | | | | MEDICAL | | | | | | CENTER - | | | | | | LABORATORY | | + + + + + + | eGFR, | 58 (L)Comment: | >=60 | [facility] | | | non- | GLOMERULAR FILTRATION | mL/min/1.73m2 | [facility] | | | Italian | RATE,ESTIMATED | | MEDICAL | | | | mL/min/1.57x5Ybui than | | CENTER - | | [...] + | [facility] | [address] | [place] | [phone] | | [facility] | | [address] | | | - LABORATORY | | [...] | | | | | | [employer] | | | | | [...] + | [facility] | [address] | [place] | [phone] | | [facility] | | [address] | | | - LABORATORY | | [...] [address] | [place] | [phone] | | [facility] | | [address] | | | - LABORATORY | | [...] + | [facility] | [address] | [place] | [phone] | | [facility] | | [address] | | | - LABORATORY | | [...] [address] | [place] | [phone] | | [facility] | | [address] | | | - LABORATORY | | [...] [address] | [place] | [phone] | | [facility] | | [address] | | | - LABORATORY | | [...] | | | | HAWA RUBIN MD ([id number]) | | | | | | on [...] + | [facility] | [address] | [place] | [phone] | | [facility] | | [address] | | | - LABORATORY | | [...] ST. | [address] | [place] | [phone] | | [facility] | | [address] | | | - LABORATORY | | [...] [address] | [place] | [phone] | | [facility] | | [address] | | | - LABORATORY | | [...] ST. | [address] | [place] | [phone] | | [facility] | | [address] | | | - LABORATORY | | [...] | | | | | | [employer] | | | | | [...] [facility]. | [address] | [place] | [phone] | | [facility] | | [address] | | | - [...] + | [facility] | [address] | [place] | [phone] | | [facility] | | [address] | | | - LABORATORY | | [...] + | [facility] | [address] | [place] | [phone] | | [facility] | | [address] | | | - LABORATORY | | [address] | [place] | [phone] | | [facility] | | [address] | | | - LABORATORY | | [...] eGFR, | 31 (L)Comment: | >=60 | [facility] | | | non- | GLOMERULAR FILTRATION | mL/min/1.73m2 | [facility] | | | Italian | RATE,ESTIMATED | | MEDICAL | | | | mL/min/1.17r0Chnp than | | CENTER - | | [...] [address] | [place] | [phone] | | [facility] | | [address] | | | - LABORATORY | | [...] [address] | [place] | [phone] | | [facility] | | [address] | | | - LABORATORY | | [...] | | | | Blood Sugar, Starting [facility] 10/03/16 | | PM PDT | [...] | | | (after last modification) on [facility] | | | | | | [...] | | | | | NPO, Daytime [id number] Use NIGHT | | | | | | | DOSE for doses scheduled: | | | | | | | HS, 3AM, Nighttime 1135-5987, | | | | | | + [...] | | | MEALS, First dose on [facility] 10/03/16 | | | | | [...]
== END 2020-03-13 23:50 | disposition left against medical advice (07) ==
LOC: ED 21:09
DX: E10.65 Type 1 diabetes mellitus with hyperglycemia (principal); Z91.14 Patient's other noncompliance with medication regimen; Z86.59 Personal history of other mental and behavioral disorders; F31.9 Bipolar disorder, unspecified; F90.9 Attention-deficit hyperactivity disorder, unspecified type; F17.200 Nicotine dependence, unspecified, uncomplicated; Z88.8 Allergy status to other drugs, medicaments and biological substances; Z91.030 Bee allergy status; Z88.1 Allergy status to other antibiotic agents; Z79.899 Other long term (current) drug therapy; Z79.4 Long term (current) use of insulin
CPT/HCPCS: 80053; 82010; 82800; 85025; 99285; J7030

== ENCOUNTER 2020-03-21 17:36 | Emergency (ER) | payer OTHER ==
[~2020-03-21] VITALS: Ht 175.3 cm; Wt 58.2 kg
[2020-03-21] MEDS ORDERED: NOVOLOG100 UNIT/2 SUB-Q (21:06)
== END 2020-03-21 21:16 | disposition home or self-care (01) ==
LOC: ED 17:36
DX: E10.65 Type 1 diabetes mellitus with hyperglycemia (principal); F32.9 Major depressive disorder, single episode, unspecified; E86.0 Dehydration; F90.9 Attention-deficit hyperactivity disorder, unspecified type; F17.200 Nicotine dependence, unspecified, uncomplicated; Z88.8 Allergy status to other drugs, medicaments and biological substances; Z91.030 Bee allergy status; Z88.1 Allergy status to other antibiotic agents; Z79.4 Long term (current) use of insulin; Z79.899 Other long term (current) drug therapy
CPT/HCPCS: 80053; 81001; 82010; 82803; 85025; 96361; 96374; 99285-25; J1815; J7030

== ENCOUNTER 2020-04-12 08:50 | Inpatient (IN) | payer OTHER ==
[~2020-04-12] VITALS: Ht 175.3 cm; Wt 59.0 kg
--- OUTSIDE RECORDS SUMMARY | ~2020-04-12 | XMS | Clinical Summary ---
Demographics + + + | Address | [address] | | | [place] [address] | + + + | Home Phone | | + + + | Preferred Language | Unknown | + + + | Marital Status | Single | + + + | Caodaism Affiliation | [id number] | + + + | Race | White | + + + | Ethnic Group | Not or | + + + Author + + + | Author | [facility] | | | and [place] | + + + | Organization | [facility] | | | and [place] | + + + | Address | Unknown | + + + | Phone | Unavailable | + + + Support + + +---------+ + | Name | Relationship | Address | Phone | + + +---------+ + | Blossom Kwon | ECON | Unknown | | + + +---------+ + Care Team Providers + +------+ + | Care Personalization Specialist Name | Role | Phone | + +------+ + | No, Physician | PCP | Unavailable | + +------+ + Allergies + + + + + + | Active Allergy | Reactions | Severity | Noted | Comments | | | | | Date | | + + + + + + | Bee Venom | Anaphylaxis | High | 05/19/20 | | | | | | 19 | | + + + + + + | Haloperidol | Swelling | Medium | 06/20/20 | | | | | | 16 | | + + + + + + | Insulin Detemir | Swelling | | 09/27/19 | | | | | | 17 | | + + + + + + | Risperidone | Other (See Comments) | Low | 06/20/20 | "sleeps too long" | | | | | 16 | | + + + + + + Medications + + + +---------+------+------+-------+ | Medication | Sig | Dispensed | Refills | Star | End | Statu | | | | | | t | Date | s | | | | | | Date | | | + + + +---------+------+------+-------+ | albuterol 90 | Inhale 2 puffs into | | 0 | | | Activ | | mcg/puff inhaler | the lungs EVERY 4 TO | | | | | e | | | 6 HOURS NEEDED | | | | | | | | for Wheezing. | | | | | | + + + +---------+------+------+-------+ | nicotine | Take 4 mg by mouth | | 0 | | | Activ | | polacrilex (COMMIT) | as needed for | | | | | e | | 4 MG lozenge | Nicotine Craving. | | | | | | | | Chew and tuck 1 | | | | | | | | piece every 1-2 | | | | | | | | hours for weeks 1-6 | | | | | | | | then every 2-4 hours | | | | | | | | for weeks 7-9 then | | | | | | | | every 4-8 hours | | | | | | | | weeks 10-12 (max 24 | | | | | | | | pieces/day). | | | | | | + + + +---------+------+------+-------+ | insulin glargine | Inject 20 Units | 9 mL | 0 | 11/2 | | Activ | | (LANTUS SOLOSTAR) | under the skin 2 | | | /20 | | e | | 100 units/mL | times daily. | | | 19 | | | | injection (pen) | | | | | | | + + + +---------+------+------+-------+ | insulin lispro | Inject 0-12 Units | 10 mL | 0 | /2 | | Activ | | (HUMALOG) 100 | under the skin 4 | | | 9/20 | | e | | units/mL injection | times daily (with | | | 19 | | | | (vial) | meals and nightly). | | | | | | + + + +---------+------+------+-------+ | | Take 1 tablet by | 20 | 0 | 02/21 | 02/22 | Expir | | sulfamethoxazole-tri | mouth 2 times daily | tablet | | 07/12 | 07/12 | ed | | methoprim (BACTRIM | for 10 days. | | | 20 | 20 | | | DS) 800-160 mg per | | | | | | | | tablet | | | | | | | + + + +---------+------+------+-------+ | | Take 1 tablet by | 20 | 0 | 02/21 | 02/22 | Expir | | sulfamethoxazole-tri | mouth 2 times daily | tablet | | 07/12 | 07/12 | ed | | methoprim (BACTRIM | for 10 days. | | | 20 | 20 | | | DS) 800-160 mg per | | | | | | | | tablet | | | | | | | + + + +---------+------+------+-------+ Active Problems + + + | Problem | Noted Date | + + + | Suicide ideation | 05/18/2019 | + + + | Diabetic ketoacidosis without coma associated with type 1 | 10/03/2016 | | diabetes mellitus | | + + + | Acute renal failure | 10/03/2016 | + + + | Acute hyperkalemia | 10/03/2016 | + + + | Sensation of chest tightness, right | 10/03/2016 | + + + | High anion gap metabolic acidosis | 10/03/2016 | + + + | Schizoaffective disorder, bipolar type, multiple episodes, | 10/03/2016 | | currently in acute episode | | + + + | Noncompliance with medication regimen | 10/03/2016 | + + + | Nausea and vomiting in adult | 10/03/2016 | + + + | Type 2 diabetes mellitus without complication, with long-term | 06/20/2016 | | current use of insulin | | + + + | Diabetic ketoacidosis without coma associated with type 1 | 06/20/2016 | | diabetes mellitus | | + + + | ADHD (attention deficit hyperactivity disorder) | 06/20/2016 | + + + | Marijuana use | 06/20/2016 | + + + + + | Overview: Smokes | + + + + + | Tobacco smoker | 06/20/2016 | + + + + + | Overview: Current smoker | + + Encounters +--------+ + + + + | Date | Type | Specialty | Care Team | Description | +--------+ + + + + | 03/02/ | Emergency | Emergency Medicine | Izabela Scott, | Localized bacterial | | 2020 - | | | MD | skin infection | | | | | | (Primary Dx); | | | | | | Hyperglycemia; | | 2019 | | | | Essential | | | | | | hypertension | +--------+ + + + + from Last 3 Months Immunizations + + + + | Name | Administration Dates | Next Due | + + + + | PNEUMOCOCCAL | 05/19/2019 (Deferred: - patient says he | | | POLYSACCHARIDE | had one less than 5 years ago), 06/21/2016, | | | 23-VALENT (PPSV23) | 02/08/2016 | | + + + + Family History + + +------+ + | Medical History | Relation | Name | Comments | + + +------+ + | Diabetes | Maternal | | | | | Grandfath | | | | | er | | | + + +------+ + | Diabetes | Maternal | | | | | Grandmoth | | | | | er | | | + + +------+ + + +------+--------+ + | Relation | Name | Status | Comments | + +------+--------+ + | Maternal Grandfather | | | | + +------+--------+ + | Maternal Grandmother | | | | + +------+--------+ + Social History + + + +--------+------+ | Tobacco Use | Types | Packs/Day | Years | Date | | | | | Used | | + + + +--------+------+ | Current Every Day | Cigarettes | 0.5 | | | | Smoker | | | | | + + + +--------+------+ + +---+---+---+ | Smokeless Tobacco: | | | | | Never Used | | | | + +---+---+---+ + + +---------+ + | Alcohol Use | Drinks/Week | oz/Week | Comments | + + +---------+ + | Yes | | | occassionally | + + +---------+ + + + + | Sex Assigned at | Date Recorded | | | | + + + | Not on file | | + + + Last Filed Vital Signs + + + + + | Vital Sign | Reading | Time Taken | Comments | + + + + + | Blood Pressure | 172/115 | 03/03/2020 12:30 AM | | | | | PDT | | + + + + + | Pulse | 108 | 03/03/2020 12:30 AM | | | | | PDT | | + + + + + | Temperature | 36.5 C (97.7 F) | 03/03/2020 12:30 AM | | | | | PDT | | + + + + + | Respiratory Rate | 20 | 03/03/2020 12:30 AM | | | | | PDT | | + + + + + | Oxygen Saturation | 100% | 03/03/2020 12:30 AM | | | | | PDT | | + + + + + | Inhaled Oxygen | - | - | | | Concentration | | | | + + + + + | Weight | 58.2 kg (128 lb 4.9 | 05/21/2019 5:12 AM | | | | oz) | PST | | + + + + + | Height | 167.6 cm (5' 6") | 03/03/2020 12:30 AM | | | | | PDT | | + + + + + | Body Mass Index | 16.47 | 05/19/2019 3:16 PM | | | | | PST | | + + + + + Plan of Treatment + + + + + | Health Maintenance | Due Date | Last | Comments | | | | Done | | + + + + + | Hepatitis C | | | | | Screening | 1 | | | + + + + + | Medication | | | | | Management | 1 | | | + + + + + | Diabetic Eye Exam | | | | | | 9 | | | + + + + + | Diabetic Foot Exam | | | | | | 9 | | | + + + + + | Vaccine: | | | | | Dtap/Tdap/Td (1 - | 0 | | | | Tdap) | | | | + + + + + | Vaccine: | | 06/21/20 | | | Pneumococcal 19-64 | 7 | 16, | | | (3 of 3 - PCV13) | | 02/08/20 | | | | | 16 | | + + + + + | Hemoglobin A1c | | 05/19/20 | | | Screening | 0 | 19, | | | | | 10/04/19 | | | | | 17, | | | | | 02/06/20 | | | | | 16 | | + + + + + | Med Mgmt: HBA1C | | 05/19/20 | | | | 0 | 19, | | | | | 10/04/19 | | | | | 17, | | | | | 02/06/20 | | | | | 16 | | + + + + + | Vaccine: Influenza | | 04/23/20 | | | (#1) | 0 | 11 | | + + + + + Procedures + +--------+ + + + | Procedure Name | Priori | Date/Time | Associated Diagnosis | Comments | | | ty | | | | + +--------+ + + + | C-REACTIVE PROTEIN | STAT | 03/02/2020 | | Results for this | | | | 10:10 PM | | procedure are in the | | | | PDT | | results section. | + +--------+ + + + | COMPREHENSIVE | STAT | 03/02/2020 | | Results for this | | METABOLIC PANEL | | 10:10 PM | | procedure are in the | | | | PDT | | results section. | + +--------+ + + + | CBC WITH | STAT | 03/02/2020 | | Results for this | | DIFFERENTIAL | | 10:10 PM | | procedure are in the | | | | PDT | | results section. | + +--------+ + + + | ED INFORMATION | Routin | 03/02/2020 | | | | EXCHANGE | e | 9:28 PM | | | | | | PDT | | | + +--------+ + + + +---+--------+ | | | | | Proced | | | ure | | | Note - | | | Siddhartha, | | | Lab In | | | | | | Hlseve | | | n - | | | | | | 2019 | | | 9:29 | | | PM PDT | | | | | | Format | | | ting | | | of | | | this | | | note | | | might | | | be | | | differ | | | ent | | | from | | | the | | | origin | | | al.COL | | | LECTIV | | | E?NOTI | | | FICATI | | | ON?09/ | | | 10/202 | | | 0 | | | 21:27? | | | VU | | | , | | | BENJAM | | | IN | | | J?MRN: | | | | | | [id number] | | | [id number] | | | riteri | | | a Met | | | PRC | | | 10 in | | | 12 | | | Care | | | Guidel | | | inesSe | | | curity | | | and | | | Safety | | | Date | | | Locati | | | on | | | Type | | | Specif | | | ics | | | 12/13/ | | | 19 | | | 8:58 | | | [facility] | [facility] | | | al | | | [facility] | | | ent | | | Other | | | | | | Detail | | | s: | | | PATIEN | | | T LEFT | | | AMA. | | | | | | 11/25/ | | | 19 | | | 6:51 | | | PM [facility] | | | Hospit | | | al | | | [facility] | | | ent | | | Other | | | | | | Detail | | | s: | | | PATIEN | | | T | | | LWBS. | | | IRIS | | | CREATE | | | D | | | Securi | | | ty | | | Events | | | (18 | | | Mo.) | | | Count | | | [facility]op[facility] | | | ent 2 | | | Total | | | 2 ED | | | Care | | | Guidel | | | mayela | | | from | | | [place] | | | ton / | | | [place] | | | n [place] | | | IPALas | | | t | | | Update | | | d: | | | 8/9/19 | | | 11:56 | | | AM | | | Care | | | Coordi | | | nation | | | :Pleas | | | e call | | | EOIPA | | | CM | | | team | | | if pt. | | | | | | presen | | | ts to | | | the ED | | | | | | Edmond | | | le | | | Aguirr | | | e | | | CHW/CM | | | or | | | Rin | | | Montgo | | | guerita | | | RN CM | | | [phone] | | | [phone] | | | Please | | | be | | | aware | | | pt. is | | | not | | | curren | | | tly | | | taking | | | any | | | of his | | | MH | | | medica | | | tions. | | | PT. | | | is | | | also | | | involv | | | ed in | | | the | | | ACT | | | team | | | throug | | | h | | | [facility] | | | ys | | | .These | | | are | | | guidel | | | mayela | | | and | | | the | | | provid | | | er | | | should | | | | | | exerci | | | se | | | clinic | | | al | | | judgme | | | nt | | | when | | | provid | | | ing | | | care.E | | | D Care | | | | | | Guidel | | | mayela | | | from | | | [facility] | | | ys - | | | [place] | | | laLast | | | | | | Update | | | d: | | | 7/8/19 | | | 10:15 | | | AM | | | Care | | | Coordi | | | nation | | | :Curre | | | ntly | | | engage | | | d in | | | mental | | | | | | health | | | | | | servic | | | es | | | with | | | the | | | ACT | | | Team | | | at | | | [facility] | | | ys.? | | | Please | | | | | | contac | | | t | | | [facility] | | | ys | | | with | | | mental | | | | | | health | | | | | | concer | | | ns.? | | | [place] | | | ton/Mi | | | lton | | | [place] | | | ter: | | | [phone] | | | [phone] | | | ?These | | | are | | | guidel | | | mayela | | | and | | | the | | | provid | | | er | | | should | | | | | | exerci | | | se | | | clinic | | | al | | | judgme | | | nt | | | when | | | provid | | | ing | | | care.C | | | are | | | Histor | | | yMedic | | | al/Katelyn | | | [id number] | | | /27/20 | | | 12:00 | | | AM | | | [facility] | | [facility] | | | al?? | | | PATIEN | | | T | | | WOULD | | | BENEFI | | | T FROM | | | | | | [facility] | | | LA | | | [facility] | | | L AND | | | DRUG | | | SERVIC | | | ES-PLE | | | ASE | | | DISCUS | | | S?? | | | PL | | | EASE | | | CONTAC | | | T | | | [facility] | | | LA | | | AandD | | | SERVIC | | | ES- IF | | | | | | PATIEN | | | T | | | ACCEPT | | | S | | | SERVIC | | | ES- | | | [phone] | | | [phone] | | | | | | *?? | | | [facility] | | | LA | | | AandD | | | SERVIC | | | ES CAN | | | | | | PROVID | | | E | | | PATIEN | | | T WITH | | | PEER | | | SUPPOR | | | T | | | SPECIA | | | LIST | | | AND | | | HELP | | | WITH | | | COMMUN | | | ITY | | | RESOUR | | | TAB | | | PLEASE | | | | | | CONTAC | | | T | | | [facility] | | | LA | | | AandD | | | SERVIC | | | ES- | | | PATIEN | | | T IS | | | CURREN | | | TLY ON | | | THE | | | ACT | | | TEAM, | | | PATIEN | | | T | | | WOULD | | | BENEFI | | | T FROM | | | | | | [facility] | | | L AND | | | DRUG | | | SERVIC | | | ES | | | 8/24 | | | /20 | | | 12:00 | | | AM | | | [facility] | [facility] | | | alPati | | | ent | | | seen | | | after | | | clinic | | | | | | hours. | | | ? | | | Patien | | | t had | | | home | | | visit | | | with | | | [facility] | | | ys | | | today | | | at | | | 11:00 | | | for | | | wellne | | | ss | | | check | | | and to | | | | | | discus | | | s ED | | | visit | | | on | | | 08/22/ | | | 2020.7 | | | /27/20 | | | 12:00 | | | AM | | | [facility] | | | [facility] | | | alPati | | | ent | | | has | | | not | | | seen | | | PCP | | | since | | | March | | | 2020.? | | | | | | Patien | | | t | | | phone | | | number | | | | | | [phone] | | | [phone] | | | 9 is | | | old | | | work | | | phone, | | | no | | | longer | | | | | | workin | | | g | | | there. | | | ? Cell | | | phone | | | on | | | file - | | | | | | [phone] | | | [phone] | | | is | | | [facility] | | | ys.?Fl | | | ags | | | [place] | | | ED | | | Dispar | | | ity | | | Measur | | | e - | | | [place] | | | has | | | develo | | | ped a | | | flag | | | (Orego | | | n ED | | | Dispar | | | ity | | | Measur | | | e) to | | | help | | | suppor | | | t | | | Medica | | | id | | | member | | | s with | | | | | | mental | | | | | | illnes | | | s. | | | [place] | | | | | | Health | | | | | | Author | | | ity | | | uses | | | claims | | | data | | | with a | | | | | | 36-mon | | | th | | | lisa | | | g look | | | back | | | period | | | to | | | identi | | | fy | | | member | | | s who | | | have | | | had | | | two or | | | more | | | diagno | | | ses of | | | | | | mental | | | | | | illnes | | | s | | | (does | | | not | | | need | | | to be | | | primar | | | y) in | | | any | | | settin | | | g | | | (e.g. | | | ED, | | | Inpati | | | ent, | | | primar | | | y | | | care). | | | | | | Flagge | | | d | | | member | | | s are | | | includ | | | ed in | | | the ED | | | | | | Dispar | | | ity | | | Measur | | | e | | | denomi | | | nator | | | popula | | | tion. | | | Flags | | | are | | | update | | | d | | | weekly | | | . / | | | Attrib | | | uted | | | By: | | | [place] | | | | | | Health | | | | | | Author | | | ity | | | (OHA) | | | / | | | Attrib | | | uted | | | On: | | | 01/14/ | | | 2020 | | | Prescr | | | iption | | | Drug | | | Report | | | (12 | | | Mo.)PD | | | MP | | | query | | | found | | | no | | | report | | | .E.D. | | | Visit | | | Count | | | (12 | | | mo.)Fa | | | cility | | | | | | Visits | | | Low | | | [facility] | | | | | | [facility] | | | | | | [facility] | | | al | | | Medica | | | l | | | Center | | | 1 0 | | | [facility] | | [facility] | | | al 10 | | | 0 | | | Total | | | 11 0 | | | Note: | | | Visits | | | | | | indica | | | te | | | total | | | known | | | visits | | | . | | | Medica | | | id Low | | | | | | Acuity | | | Dx | | | are | | | the | | | number | | | of | | | primar | | | y | | | diagno | | | ses on | | | the | | | Medica | | | id's | | | Low | | | Acuity | | | dx | | | list. | | | | | | Recent | | | | | | Emerge | | | ncy | | | Depart | | | ment | | | Visit | | | Summar | | | yShowi | | | ng 10 | | | most | | | recent | | | | | | visits | | | out | | | of 11 | | | in the | | | past | | | 12 | | | months | | | Date | | | Facili | | | ty | | | City | | | State | | | Type | | | Diagno | | | ses or | | | Chief | | | | | | Compla | | | int | | | Sep | | | 10, | | | 2020 | | | [facility] | | | | | | [facility] | | | al | | | [facility] | | | [place] | | | [place] | | | Emerge | | | ncy | | | Skin | | | Proble | | | m Aug | | | 22, | | | 2020 | | | [facility] 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 | | | us | | | with | | | hyperg | | | lycemi | | | a | | | Other | | | stimul | | | ant | | | use, | | | unspec | | | ified, | | | | | | uncomp | | | licate | | | d | | | Long | | | term | | | (curre | | | nt) | | | use of | | | | | | insuli | | | n | | | Other | | | long | | | term | | | (curre | | | nt) | | | drug | | | therap | | | y | | | Allerg | | | y | | | status | | | to | | | other | | | drugs, | | | | | | medica | | | ments | | | and | | | biolog | | | ical | | | sub | | | Bee | | | allerg | | | y | | | status | | | | | | Nicoti | | | ne | | | depend | | | ence, | | | unspec | | | ified, | | | | | | uncomp | | | licate | | | d | | | Attent | | | ion-de | | | ficit | | | hypera | | | ctivit | | | y | | | disord | | | er, | | | unspec | | | ified | | | type | | | Esau | | | 22, | | | 2020 | | | [facility] [place] | | | Emerge | | | ncy | | | | | | Nausea | | | | | | Bipola | | | r | | | disord | | | er, | | | unspec | | | ified | | | | | | Allerg | | | y | | | status | | | to | | | other | | | drugs, | | | | | | medica | | | ments | | | and | | | biolog | | | ical | | | sub | | | Type | | | 1 | | | diabet | | | es | | | mellit | | | us | | | with | | | hyperg | | | lycemi | | | a | | | Bee | | | allerg | | | y | | | status | | | | | | Nicoti | | | ne | | | depend | | | ence, | | | unspec | | | ified, | | | | | | uncomp | | | licate | | | d | | | Long | | | term | | | (curre | | | nt) | | | use of | | | | | | insuli | | | n | | | Attent | | | ion-de | | | ficit | | | hypera | | | ctivit | | | y | | | disord | | | er, | | | unspec | | | ified | | | type | | | | | | Other | | | long | | | term | | | (curre | | | nt) | | | drug | | | therap | | | y | | | Schizo | | | phreni | | | a, | | | unspec | | | ified | | | Jose | | | 9, | | | 2020 | | | [facility] [place] | | | Emerge | | | ncy | | | | | | Otalgi | | | a, | | | left | | | ear | | | | | | Nicoti | | | ne | | | depend | | | ence, | | | unspec | | | ified, | | | | | | uncomp | | | licate | | | d | | | Type 1 | | | | | | diabet | | | es | | | mellit | | | us | | | withou | | | t | | | compli | | | cation | | | s | | | Allerg | | | y | | | status | | | to | | | other | | | drugs, | | | | | | medica | | | ments | | | and | | | biolog | | | ical | | | sub | | | | | | Unspec | | | ified | | | otitis | | | | | | casino gaming inspector | | | a, | | | left | | | ear | | | | | | Attent | | | ion-de | | | ficit | | | hypera | | | ctivit | | | y | | | disord | | | er, | | | unspec | | | ified | | | type | | | Bee | | | allerg | | | y | | | status | | | | | | Other | | | long | | | term | | | (curre | | | nt) | | | drug | | | therap | | | y Mar | | | 9, | | | 2020 | | | [facility] [place] | | | Emerge | | | ncy | | | Chief | | | Compla | | | int: | | | blood | | | sugar | | | proble | | | m Mar | | | 8, | | | 2020 | | | [facility] [place] | | | Emerge | | | ncy | | | | | | Delusi | | | onal | | | disord | | | ers | | | Lower | | | | | | abdomi | | | nal | | | pain, | | | unspec | | | ified | | | | | | Type 2 | | | | | | diabet | | | es | | | mellit | | | us | | | withou | | | t | | | compli | | | cation | | | s | | | Other | | | stimul | | | ant | | | abuse, | | | | | | uncomp | | | licate | | | d | | | Allerg | | | y | | | status | | | to | | | other | | | drugs, | | | | | | medica | | | ments | | | and | | | biolog | | | ical | | | sub | | | Type | | | 1 | | | diabet | | | es | | | mellit | | | us | | | withou | | | t | | | compli | | | cation | | | s | | | Other | | | long | | | term | | | (curre | | | nt) | | | drug | | | therap | | | y | | | Bee | | | allerg | | | y | | | status | | | | | | Bipola | | | r | | | disord | | | er, | | | unspec | | | ified | | | | | | Nicoti | | | ne | | | depend | | | ence, | | | unspec | | | ified, | | | | | | uncomp | | | licate | | | d Hua | | | 12, | | | 2020 | | | [facility] [place] | | | Emerge | | | ncy | | | Long | | | term | | | (curre | | | nt) | | | use of | | | | | | insuli | | | n | | | Cough | | | | | | Type 1 | | | | | | diabet | | | es | | | mellit | | | us | | | with | | | hypogl | | | ycemia | | | | | | withou | | | t coma | | | | | | Acute | | | upper | | | respir | | | atory | | | infect | | | ion, | | | unspec | | | ified | | | Dec | | | 13, | | | 2019 | | | [facility] [place] | [place] | | | Emerge | | | ncy | | | | | | Allerg | | | y | | | status | | | to | | | other | | | drugs, | | | | | | medica | | | ments | | | and | | | biolog | | | ical | | | sub | | | Type | | | 1 | | | diabet | | | es | | | mellit | | | us | | | withou | | | t | | | compli | | | cation | | | s | | | Vomiti | | | ng, | | | unspec | | | ified | | | | | | Bipola | | | r | | | disord | | | er, | | | unspec | | | ified | | | | | | Other | | | long | | | term | | | (curre | | | nt) | | | drug | | | therap | | | y | | | Long | | | term | | | (curre | | | nt) | | | use of | | | | | | insuli | | | n | | | Bee | | | allerg | | | y | | | status | | | Nov | | | 25, | | | 2019 | | | [facility] [place] | | | [place] | | | Emerge | | | ncy | | | | | | Proced | | | ure | | | and | | | treatm | | | ent | | | not | | | peter | | | d out | | | due to | | | | | | patien | | | t | | | leavin | | | Nov | | | 15, | | | 2019 | | | [facility] | [place] 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 | | | | | | withou | | | t coma | | | | | | Type 1 | | | | | | diabet | | | es | | | mellit | | | us | | | withou | | | t | | | compli | | | cation | | | s | | | Nicoti | | | ne | | | depend | | | ence, | | | unspec | | | ified, | | | | | | uncomp | | | licate | | | d | | | Bipola | | | r | | | disord | | | er, | | | unspec | | | ified | | | | | | Other | | | insect | | | | | | allerg | | | y | | | status | | | | | | Other | | | long | | | term | | | (curre | | | nt) | | | drug | | | therap | | | y | | | Allerg | | | y | | | status | | | to | | | other | | | drugs, | | | | | | medica | | | ments | | | and | | | biolog | | | ical | | | sub | | | Long | | | term | | | (curre | | | nt) | | | use of | | | | | | inhale | | | d | | | steroi | | | ds | | | Recent | | | | | | Inpati | | | ent | | | Visit | | | [place] | | | yDate | | | Facili | | | ty | | | City | | | State | | | Type | | | Diagno | | | ses or | | | Chief | | | | | | Compla | | | int | | | Mar 9, | | | 2020 | | | [facility] | [place] | | | [place] | | | Observ | | | ation | | | | | | Nicoti | | | ne | | | depend | | | ence, | | | unspec | | | ified, | | | | | | uncomp | | | licate | | | d | | | Type 1 | | | | | | diabet | | | es | | | mellit | | | us | | | with | | | hyperg | | | lycemi | | | a | | | Attent | | | ion-de | | | ficit | | | hypera | | | ctivit | | | y | | | disord | | | er, | | | unspec | | | ified | | | type | | | | | | Allerg | | | y | | | status | | | to | | | other | | | drugs, | | | | | | medica | | | ments | | | and | | | biolog | | | ical | | | sub | | | | | | Bipola | | | r | | | disord | | | er, | | | unspec | | | ified | | | | | | Other | | | long | | | term | | | (curre | | | nt) | | | drug | | | therap | | | y | | | Schizo | | | phreni | | | a, | | | unspec | | | ified | | | | | | 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 | | [place] | | | [place] | | | [facility] | | | al | | | Medici | | | ne | | | Schizo | | | phreni | | | a, | | | unspec | | | ified | | | | | | Brief | | | psycho | | | tic | | | disord | | | er | | | Cannab | | | is | | | use, | | | unspec | | | ified, | | | | | | uncomp | | | licate | | | d | | | Patien | | | t's | | | other | | | noncom | | | plianc | | | e with | | | | | | medica | | | tion | | | regime | | | n | | | Nausea | | | with | | | vomiti | | | ng, | | | unspec | | | ified | | | | | | Nicoti | | | ne | | | depend | | | ence, | | | unspec | | | ified, | | | | | | uncomp | | | licate | | | d | | | Hyperk | | | alemia | | | | | | Type 1 | | | | | | diabet | | | es | | | mellit | | | us | | | withou | | | t | | | compli | | | cation | | | s | | | Schizo | | | affect | | | 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, | | | bipola | | | r type | | | | | | Additi | | | onal | | | Care | | | TeamPr | | | ovider | | | | | | Specia | | | lty | | | Phone | | | Fax | | | Servic | | | e | | | Dates | | | Donovan, | | | Obey, | | | [facility] | | | Social | | | | | | Worker | | | ([phone]) | | | | | | [phone] | | | 07 | | | Nov | | | 26, | | | 2019 - | | | | | | Curren | | | t J, | | | JEFFAS | | | TITI, | | | PMHNP | | | Nurse | | | | | | Practi | | | tioner | | | : | | | Psychi | | | atric/ | | | Mental | | | | | | Health | | | ([phone]) | | | | | | [phone] | | | 07 | | | Nov | | | 26, | | | 2019 - | | | | | | Curren | | | t | | | ZACK | | | , | | | AUGUSTINE | | | ANGIE, | | | MD | | | [employer] | | | al | | | Medici | | | ne: | | | Pulmon | | | whitney | | | Diseas | | | e | | | Mar | | | 12, | | | 2019 - | | | | | | Curren | | | t | | | [facility] | | | tive | | | Portal | | | This | | | patien | | | t has | | | regist | | | ered | | | at the | | | | | | [facility] | | | | | [facility] | | | al | | | [facility] | | | l | | | Center | | | | | | Emerge | | | ncy | | | Depart | | | ment | | | For | | | more | | | inform | | | ation | | | visit: | | | | | | https: | | | //secu | | | [email or web address] | | | lectiv | | | emedic | | | [email or web address] | | | /notif | | | [id number] | | | [id number] | | | [id number] | | | [id number] | | | [id number] | | | [id number] | | | 39 | | | PLEASE | | | NOTE: | | | 1. | | | Any | | | care | | | recomm | | | endati | | | ons | | | and | | | other | | | clinic | | | al | | | inform | | | ation | | | are | | | provid | | | ed as | | | guidel | | | mayela | | | or for | | | | | | histor | | | ical | | | purpos | | | es | | | only, | | | and | | | provid | | | ers | | | should | | | | | | exerci | | | se | | | their | | | own | | | clinic | | | al | | | judgme | | | nt | | | when | | | provid | | | ing | | | care. | | | 2. | | | You | | | may | | | only | | | use | | | this | | | inform | | | ation | | | for | | | purpos | | | es of | | | treatm | | | ent, | | | paymen | | | t or | | | health | | | care | | | operat | | | ions | | | activi | | | ties, | | | and | | | subjec | | | t to | | | the | | | limita | | | tions | | | of | | | applic | | | able | | | [facility] | | | tive | | | Polici | | | es. | | | 3. | | | You | | | should | | | | | | consul | | | t | | | direct | | | ly | | | with | | | the | | | organi | | | zation | | | that | | | provid | | | ed a | | | care | | | guidel | | | ine or | | | other | | | | | | clinic | | | al | | | histor | | | y with | | | any | | | questi | | | ons | | | about | | | additi | | | onal | | | inform | | | ation | | | or | | | accura | | | cy or | | | comple | | | teness | | | of | | | inform | | | ation | | | provid | | | ed.? | | | 2019 | | | [facility] | | | tive | | | Medica | | | l | | | Techn[employer] | | | logies | | | , [employer] | | | - | | | [email or web address] | | | llecti | | | vemedi | | | [email or web address] | | | m | +---+--------+ from Last 3 Months Results CBC with Differential (03/02/2020 10:10 PM PDT) + + + + + + | Component | Value | Ref Range | Performed | Pathologist | | | | | At | Signature | + + + + + + | WBC | 12.36 (H) | 3.80 - 11.00 | [facility] | | | | | K/uL | LABORATORY | | + + + + + + | Red Blood | 4.61 | 4.20 - 5.70 | [facility] | | | Cells | | M/uL | LABORATORY | | + + + + + + | Hemoglobin | 14.1 | 13.2 - 17.0 | [facility] | | | | | g/dL | LABORATORY | | + + + + + + | Hematocrit | 39.4 | 39.0 - 50.0 % | [facility] | | | | | | LABORATORY | | + + + + + + | MCV | 85.5 | 80.0 - 100.0 fl | [facility] | | | | | | LABORATORY | | + + + + + + | MCH | 30.6 | 27.0 - 34.0 pg | [facility] | | | | | | LABORATORY | | + + + + + + | MCHC | 35.8 (H) | 32.0 - 35.5 | [facility] | | | | | g/dL | LABORATORY | | + + + + + + | RDW-SD | 36.8 (L) | 37 - 53 fl | [facility] | | | | | | LABORATORY | | + + + + + + | Platelet | 372 | 150 - 400 K/uL | [facility] | | | Count | | | LABORATORY | | + + + + + + | MPV | 9.8Comment: NO NORMAL | fl | [facility] | | | | RANGE ESTABLISHED | | LABORATORY | | + + + + + + | Diff Type | AUTOMATED | | [facility] | | | | | | LABORATORY | | + + + + + + | % nRBC | 0.0 | 0 /100WBC | [facility] | | | | | | LABORATORY | | + + + + + + | % | 72.90 | % | [facility] | | | Neutrophils | | | LABORATORY | | + + + + + + | IMMATURE | 0.20 | % | [facility] | | | GRANULOCYTE | | | LABORATORY | | + + + + + + | % | 17.30 | % | [facility] | | | Lymphocytes | | | LABORATORY | | + + + + + + | Monocyte % | 6.40 | % | [facility] | | | | | | LABORATORY | | + + + + + + | Eosinophils | 2.60 | % | [facility] | | | % | | | LABORATORY | | + + + + + + | Basophils % | 0.60 | % | [facility] | | | | | | LABORATORY | | + + + + + + | Neutrophils | 9.00 (H) | 1.90 - 7.40 | [facility] | | | , Absolute | | K/uL | LABORATORY | | + + + + + + | IMMATURE | 0.03Comment: NOTE NEW | 0.00 - 0.07 | [facility] | | | GRANS AB | REFERENCE RANGE | K/uL | LABORATORY | | + + + + + + | Absolute | 2.14 | 1.00 - 3.90 | [facility] | | | Lymphocytes | | K/uL | LABORATORY | | + + + + + + | Absolute | 0.79 | 0.00 - 0.80 | [facility] | | | Monocytes | | K/uL | LABORATORY | | + + + + + + | Eosinophils | 0.32 | 0.00 - 0.50 | [facility] | | | , Absolute | | K/uL | LABORATORY | | + + + + + + | Basophils, | 0.08Comment: Testing | 0.00 - 0.10 | [facility] | | | Absolute | performed at [facility];[address] | K/uL | LABORATORY | | | | [address];[place] | | | | | | [address] | | | | + + + + + + + + | Specimen | + + | Blood | + + + + + + + | Performing | Address | City/State/Zipcode | Phone Number | | Organization | | | | + + + + + | [facility] | [address] | [place] [address] | [phone] | + + + + + C-Reactive Protein (03/02/2020 10:10 PM PDT) + + + + + + | Component | Value | Ref Range | Performed | Pathologist | | | | | At | Signature | + + + + + + | CRP | 4.0 (H)Comment: Testing | <0.5 mg/dL | [facility] | | | | performed at [facility];[address] | | LABORATORY | | | | [address];[place], [place] | | | | | | [address] | | | | + + + + + + + + | Specimen | + + | Blood | + + + + + + + | Performing | Address | City/State/Zipcode | Phone Number | | Organization | | | | + + + + + | [facility] | [address] | [place] [address] | [phone] | + + + + + Comprehensive Metabolic Panel (03/02/2020 10:10 PM PDT) + + + + + + | Component | Value | Ref Range | Performed | Pathologist | | | | | At | Signature | + + + + + + | Na | 132 (L) | 135 - 145 | [facility] | | | | | mmol/L | LABORATORY | | + + + + + + | K | 3.9 | 3.5 - 4.9 | [facility] | | | | | mmol/L | LABORATORY | | + + + + + + | Cl | 94 (L) | 99 - 109 mmol/L | [facility] | | | | | | LABORATORY | | + + + + + + | CO2 | 31 | 23 - 32 mmol/L | [facility] | | | | | | LABORATORY | | + + + + + + | Anion Gap | 11 | 5 - 20 mmol/L | [facility] | | | | | | LABORATORY | | + + + + + + | Glucose | 299 (H) | 65 - 99 mg/dL | [facility] | | | | | | LABORATORY | | + + + + + + | BUN | 23 | 8 - 25 mg/dL | [facility] | | | | | | LABORATORY | | + + + + + + | Creatinine | 1.15 | 0.70 - 1.30 | [facility] | | | | | mg/dL | LABORATORY | | + + + + + + | BUN/Creatin | 20 | | [facility] | | | ine Ratio | | | LABORATORY | | + + + + + + | Calcium | 9.4 | 8.5 - 10.5 | [facility] | | | | | mg/dL | LABORATORY | | + + + + + + | Protein, | 6.4 | 6.3 - 8.2 g/dL | [facility] | | | Total | | | LABORATORY | | + + + + + + | Albumin | 4.1 | 3.6 - 5.0 g/dL | [facility] | | | | | | LABORATORY | | + + + + + + | Globulin | 2.3 | 1.3 - 4.9 g/dL | [facility] | | | | | | LABORATORY | | + + + + + + | A/G Ratio | 1.8 | 1.0 - 2.4 | [facility] | | | | | | LABORATORY | | + + + + + + | BILIRUBIN, | 0.3 | 0.1 - 1.5 mg/dL | [facility] | | | TOTAL | | | LABORATORY | | + + + + + + | ALK PHOS | 122 (H) | 35 - 115 U/L | [facility] | | | | | | LABORATORY | | + + + + + + | AST | 12 | 10 - 45 U/L | [facility] | | | | | | LABORATORY | | + + + + + + | ALT | 13 | 10 - 65 U/L | [facility] | | | | | | LABORATORY | | + + + + + + | Estimated | >60Comment: GFR <60: | >60 | [facility] | | | GFR | CHRONIC KIDNEY DISEASE, | mL/min/1.73m2 | LABORATORY | | | | IF FOUND OVER A 3 MONTH | | | | | | PERIOD.GFR <15: KIDNEY | | | | | | FAILURE.FOR | | | | | | AMERICANS, MULTIPLY THE | | | | | | CALCULATED GFR BY | | | | | | 1.210.This eGFR is | | | | | | calculated using the | | | | | | MDRD IDMS traceable | | | | | | equation.Testing | | | | | | performed at [facility];[address] | | | | | | [facility];[place], [place] | | | | | | [address] | | | | + + + + + + + + | Specimen | + + | Blood | + + + + + + + | Performing | Address | City/State/Zipcode | Phone Number | | Organization | | | | + + + + + | [facility] | [address] | [place] [address] | [phone] | + + + + + from Last 3 Months Insurance + +--------+ +--------+ +---------+--------+ | Payer | Benefi | Subscriber | Effect | Phone | Address | Type | | | t Plan | ID | mercy | | | | | | / | | Dates | | | | | | Group | | | | | | + +--------+ +--------+ +---------+--------+ | [employer] | [employer] | [id number] | 01/22/20 | [phone] | | Medica | | MEDICAID HMO | HEALTH | | 16-Pre | 1 | | id | | | MDCD | | sent | | | | | | [place] | | | | | | + +--------+ +--------+ +---------+--------+ | [employer] | [employer] | [id number] | 05/17/ | [phone] | | Medica | | MEDICAID HMO | HEALTH | | 2019-P | 1 | | id | | | MDCD | | resent | | | | | | [place] | | | | | | + +--------+ +--------+ +---------+--------+ + +--------+ +--------+ + + | Guarantor Name | Accoun | Relation to | Date | Phone | Billing Address | | | t Type | Patient | of | | | | | | | | | | + +--------+ +--------+ + + | Joni Kwon | Person | Self [birth year] | [address] | | [place] | al/Fam | | 1980 | [phone] | [address] [place] | | | lisa | | | 9 (Home) | [address] | + +--------+ +--------+ + + | Joni Kwon | Person | Self [birth year] | [address] | | [place] | al/Fam | | 1981 | [phone] | [address] [place] [place] | | | lisa | | | 9 (Home) | [address] | + +--------+ +--------+ + + | Joni Kwon | Mental | Self [birth year] | [address] | | [place] | | | 1980 | [phone] | [address] [place] | | | Health | | | 9 ([place]) | [id number] | + +--------+ +--------+ + + Advance Directives + + + + + | Type | Date Recorded | Patient | 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 | | + + + + + | Power of | | | | | Upper Cutter Machine | | | | + + + + + | Advance | 03/02/2020 10:29 | | | | Directive | PM | | | + + + + + + + + + + | Code Status | Date | Date | Comments | | | Activated | Inactivated | | + + + + + | Full Code | 05/19/2019 | 05/21/2019 | | | | 2:29 AM | 7:46 PM | | + + + + + + + + +---+ | | | | | + + + +---+ | Full Code | 05/02/2017 | 05/03/2017 | | | | 1:41 AM | 3:29 PM | | + + + +---+ + + + +---+ | | | | | + + + +---+ | Full Code | 10/03/2016 | 10/04/2016 | | | | 8:50 AM | 11:30 AM | | + + + +---+ + + + +---+ | | | | | + + + +---+ | Full Code | 09/27/2016 | 09/28/2016 | | | | 1:24 AM | 6:26 PM | | + + + +---+ + + + +---+ | | | | | + + + +---+ | Full Code | 06/21/2016 | 06/21/2016 | | | by default | 2:23 AM | 8:47 PM | | | - TBD | | | | + + + +---+
--- OUTSIDE RECORDS SUMMARY | ~2020-04-12 | XMS | Encounter Summary ---
Demographics + + + | Address | [address] | | | [place] [address] | + + + | Home Phone | | + + + | Preferred Language | Unknown | + + + | Marital Status | Single | + + + | Yazdanism Affiliation | [id number] | + + + | Race | White | + + + | Ethnic Group | Not or | + + + Author + + + | Author | [facility] | | | and Ryana | + + + | Organization | [facility] | | | [...] Team Providers + +------+ + | Care Bailer Tenders Supervisor Name | Role | Phone | + +------+ + PCP | Unavailable | + +------+ + Encounter Details +--------+ + + + + | Date | Type | Department | Care Team | Description | +--------+ + + + + | 03/05/ | [facility] | ROGELIO TALAMANTES | Abhi Berger | | | 2003 | Encounter | [facility] [address] | MD [address] | | | | | [address] | [place], [place] | | | | | [place] [address] | [address] | | | | | [phone] | | | +--------+ + + + + Social History + +-------+ +--------+------+ | Tobacco Use | Types | Packs/Day | Years | Date | | | | | Used | | + +-------+ +--------+------+ | Never Assessed | | | | | + +-------+ +--------+------+ + + + | Sex Assigned at | Date Recorded | | | | + + + | Not on file | | + + + documented as of this encounter Plan of Treatment Not on filedocumented as of this encounter Visit Diagnoses Not on filedocumented in this encounter"
--- OUTSIDE RECORDS SUMMARY | ~2020-04-12 | XMS | Encounter Summary ---
Demographics + + + | Address | [address] | | | [place] [address] | + + + | Home Phone [...] Author + + + | Author | [facility] | | | and Ryana | + + + | Organization | [facility] | | [...] Team Providers + +------+ + | Care Brush Washer Name | Role | Phone | + +------+ + PCP | Unavailable | + +------+ + Encounter Details +--------+ + + + + | Date | Type | Department | Care Team | Description | +--------+ + + + + | 02/05/ | Hospital | [facility] | Cody Kan | Diabetic | | 2016 - | Encounter | [facility] | gIlesia Mccall MD [address] | ketoacidosis without | | | | CARE [address]LO[address] | coma associated | | 02/07/ | | [address] | [place] [address] | with type 2 diabetes | | 2016 | | [place], [place] | [phone] | mellitus (HCC) | | | | [id number] | | | | | | [phone] | | | +--------+ + + + [...] + + + | Blood Pressure | 133/88 | 02/08/2016 12:19 PM | | | | | PDT | | + + + + + | Pulse | 75 | 02/08/2016 12:19 PM | | | | | PDT | | + + + + + | Temperature | 36.8 C (98.2 F) | 02/08/2016 12:19 PM | | | | | PDT | | + + + + + | Respiratory Rate | 18 | 02/08/2016 12:19 PM | | | | | PDT | | + + + + + | Oxygen Saturation | - | - | | + + + + + | Inhaled Oxygen | - | - | | | Concentration | | | | + + + + + | Weight | 60 kg (132 lb 4.5 | 02/08/2016 12:19 PM | | | | oz) | PDT | | + + + + + | Height | 176.5 cm (5' 9.5") | 02/08/2016 12:19 PM | | | | | PDT | | + + + + + | Body Mass Index | 19.25 | 02/08/2016 12:19 PM | | | | | PDT | | + + + + + documented in this encounter Discharge Summaries Lanre Pan MD - 02/08/2016 9:36 AM PDTFormatting of this note might be different fr om the original. Discharge Summaries by Lanre Pan MD at 02/08/16 0936 Author: Lanre Pan MD Service: Hospitalist Author Type: Physician Filed: 02/08/16 1427 Date of Service: 02/08/16 0936 Status: Signed Review Engineer: Lanre Pan MD (Physician) Related Notes: Original Note by Lanre Pan MD (Physician) filed at 02/08/16 1015 [facility] Service: Hospitalist Discharge Summary Date of Admission: 02/06/2016 Date of Discharge: 02/08/16 Discharge Provider: Lanre Pan MD Treatment Team: Consulting Physician: Margarita Gonzales MD Admitting Provider: Cody Kan MD Discharge Diagnoses: Principal Problem: Diabetic ketoacidosis without coma associated with type 1 diabetes mellitus (HCC) Active Problems: Schizophrenia (HCC) Attention-deficit hyperactivity disorder, predominantly hyperactive type Depression Leukocytosis (leucocytosis) Dehydration Resolved Problems: * No resolved hospital problems. * Final Diagnoses: DKA Procedures: * No surgery found * Significant Diagnostic Studies: No results found. No results found. BRIEF HISTORY OF PRESENTATION: Joni Kwon is a 35 y.o. male who HOSPITAL COURSE: Mr. Kwon is a 35-year-old male with reported history of schizophrenia, type 1 diabetes di agnosed at the age of 4, he has had prior episodes of DKA, and recently moved to [place], [place]. The patient typically takes Lantus pens, though according to the patie nt he has not been storing them appropriately and may have left them out of the fridge for a prolonged period, and the patient indicates that he may have missed a few doses. [facility]. He was initially seen at [place] emergency department and diagnosed with diabetic ketoaci dosis with an elevated anion gap. He was subsequently transferred to our facility for treatm ent for diabetic ketoacidosis. He was treated on insulin drip for approximately 24 hours wit h resolution of anion gap, improved symptoms. Dr. Gonzales (endocrinology) also was involved wi th his care, and subsequently patient was placed on Levemir 12 units twice a day and Humalog 7 units before each meal, and the patient will continue on an insulin sliding scale. The patient did receive diabetic education, which indicated he understands. He did ask for a refill of his medications, insulin pens. He also was given a prescription for insulin pen needles. He was recommended to follow up with Dr. Gonzales in approximately 3 to 4 weeks and to schedule appointment with the PCP in [place]. DISCHARGE DIAGNOSES 1. Diabetic ketoacidosis in a type 1 diabetic. 2. History of reported schizophrenia, stable. 3. History of tobaccoism. Patient was counseled on tobacco cessation. 4. Electrolyte imbalance, secondary to diabetic ketoacidosis treatment. Past Medical History Diagnosis Date Schizophrenia (HCC) 02/06/2016 Attention-deficit hyperactivity disorder, predominantly hyperactive type 02/06/2016 Depression 02/06/2016 Leukocytosis (leucocytosis) 02/06/2016 Diabetes mellitus type I ([facility]) History reviewed. No pertinent past surgical history. Allergies Allergen Reactions Fexofenadine Other (See Comments) Unknown Haldol [Haloperidol] Other (See Comments) Unknown Risperidone Other (See Comments) unknown Shellfish Allergy Swelling Prescriptions prior to admission Medication Sig Dispense Refill Last Dose albuterol (PROVENTIL) (2.5 MG/3ML) 0.083% nebulizer solution Take 2.5 mg by nebulizatio n every 4 (four) hours as needed for Wheezing. More than a month at Unknown time aspirin 81 MG EC tablet Take 81 mg by mouth daily with breakfast. 02/05/2016 at 0800 atomoxetine (STRATTERA) 80 MG capsule Take 80 mg by mouth daily. Past Month at Unknow n time atorvastatin (LIPITOR) 10 MG tablet Take 10 mg by mouth nightly. More than a month at Unknown time insulin glargine (LANTUS) 100 UNIT/ML injection Inject 9 Units into the skin every morn ing. 02/05/2016 at 0800 insulin glargine (LANTUS) 100 UNIT/ML injection Inject 3 Units into the skin nightly. 02/05/2016 at 2200 insulin lispro, human, (HUMALOG) 100 UNIT/ML injection Inject 1 Units into the skin 3 ( three) times daily before meals. One unit for above 135 blood glucose. For every 25 blood gl ucose above 135 one additional unit. 02/06/2016 at Unknown time propranolol (INDERAL) 20 MG tablet Take 30 mg by mouth 2 (two) times daily. More than a month at Unknown time zolpidem (AMBIEN) 5 MG tablet Take 5 mg by mouth nightly as needed for Sleep. More th an a month at Unknown time DISCHARGE EXAM Vital Signs: BP 119/76 mmHg | Pulse 84 | Temp(Src) 98.2 F (36.8 C) (Oral) | Resp 16 | Ht 1.765 m (5' 9.5") | Wt 60 kg (132 lb 4.4 oz) | BMI 19.26 kg/m2 | SpO2 99% Temp: [97.6 F (36.4 C)-98.6 F (37 C)] 98.2 F (36.8 C) (02/07 726) BP: (110-148)/(66-101) 119/76 mmHg (02/07 726) Heart Rate: [68-89] 84 (02/07 726) Resp: [16-18] 16 (02/07 726) SpO2: [95 %-100 %] 99 % (02/07 726) Physical Exam Constitutional: He is oriented to person, place, and time. He appears well-developed and we ll-nourished. No distress. Patient is awake, alert, and living in room, coherent, looks well HENT: Mouth/Throat: No oropharyngeal exudate. Eyes: No scleral icterus. Pulmonary/Chest: Effort normal and breath sounds normal. No respiratory distress. He has no wheezes. Abdomina/Gl: Soft. Bowel sounds are normal. He exhibits no distension. There is no tenderne ss. Neurological: He is alert and oriented to person, place, and time. No cranial nerve deficit . Skin: He is not diaphoretic. Nursing note and vitals reviewed. DATA CBC: Lab Results Component Value Date WBC 6.22 02/08/2016 RBC 3.53* 02/08/2016 HGB 11.5* 02/08/2016 HCT 32.3* 02/08/2016 MCV 91.6 02/08/2016 MCH 32.6 02/08/2016 MCHC 35.6* 02/08/2016 RDW 45.1 02/08/2016 PLT 218 02/08/2016 MPV 7.6 02/08/2016 DIFFTYPE AUTOMATED 02/07/2016 BMP: Lab Results Component Value Date NA 133* 02/08/2016 K 3.2* 02/08/2016 CL 100 02/08/2016 CO2 22* 02/08/2016 ANIONGAP 14 02/08/2016 GLUF 282* 02/08/2016 BUN 15 02/08/2016 CREATININE 0.8 02/08/2016 BCR 19 02/08/2016 CA 7.7* 02/08/2016 EGFR >60 02/08/2016 Disposition: Home Condition: Stable Code Status: Full Code No discharge procedures on file. Follow up: Margarita Gonzales MD [address] [place] [address] follow up for diabetes Medication List CONTINUE taking these medications albuterol (2.5 MG/3ML) 0.083% nebulizer solution Refills: 0 Commonly known as: PROVENTIL aspirin 81 MG EC tablet Refills: 0 atomoxetine 80 MG capsule Refills: 0 Commonly known as: STRATTERA atorvastatin 10 MG tablet Refills: 0 Commonly known as: LIPITOR * insulin glargine 100 UNIT/ML injection Refills: 0 Commonly known as: LANTUS * insulin glargine 100 UNIT/ML injection Refills: 0 Commonly known as: LANTUS insulin lispro (human) 100 UNIT/ML injection Refills: 0 Commonly known as: HUMALOG propranolol 20 MG tablet Refills: 0 Commonly known as: INDERAL zolpidem 5 MG tablet Refills: 0 Commonly known as: AMBIEN * Notice: This list has 2 medication(s) that are the same as other medications prescribed for you. Read the directions carefully, and ask your doctor or other care provider to revie w them with you. Discharge took 35 minutes, to include final examination, discussion of admission, and prep aration of prescriptions, instructions for on-going care, follow-up and documentation of dis charge summary. Lanre Pan MD 02/08/2016 documented in this encounter Progress Notes Conversion Transaction, Provider Unknown - 02/08/2016 12:55 PM PDTFormatting of this note m ight be different from the original. Nurse Progress Note by Rosario Ocampo RN at 02/08/16 1255 Author: Rosario Ocampo RN Service: (none) Author Type: Registered Nurse Filed: 02/08/16 1255 Date of Service: 02/08/16 1255 Status: Signed Review Engineer: Rosario Ocampo RN (Registered Nurse) Discharge instructions given, all questions answered, patient/hiv/aids care nurse expresses understa nding. Prescriptions given. IV removed. VSS. Patient left ambulatory to a private residence with family onver danie Transaction, Provider Unknown - 02/08/2016 9:52 AM PDT Case Management by Rhea Kaiser RN at 02/08/16 0952 Author: Rhea Kaiser RN Service: (none) Author Type: Registered Nurse Filed: 02/08/16 1000 Date of Service: 02/08/16 0952 Status: Addendum Review Engineer: Rhea Kaiser RN (Registered Nurse) Related Notes: Original Note by Rhea Kaiser RN (Registered Nurse) filed at 02/08/16 0 955 Discharge Planning: contacted [facility] [place] [phone], staff noted Shilpi scott is assigned to his case, left message with call back number for counselor to contact . Discharge Planning: spoke to CM Shilpi Mirza return call, advised [facility] office will contac t patient this afternoon to set up appointment. Entered appointment info and phone number in AVS and gave message to patient. onver danie Transaction, Provider Unknown - 02/08/2016 6:40 AM PDT Nurse Progress Note by Gayle Gomez RN at 02/08/16 0640 Author: Gayle Gomez RN Service: (none) Author Type: Registered Nurse Filed: 02/08/16 0644 Date of Service: 08/18/16 0640 Status: Signed Review Engineer: Gayle Gomez RN (Registered Nurse) No changes to initial assessment. Patient showered during the night. Pt c/o swelling in his penis- mild swelling noted. Walked the bundy during the night. Will continue to monitor onver danie Transaction, Provider Unknown - 02/07/2016 6:20 PM PDT Nurse Progress Note by Aracelis Strong RN at 02/07/161819 Author: Aracelis Strong RN Service: (none) Author Type: Registered Nurse Filed: 02/07/161918 Date of Service: 02/07/161819 Status: Addendum Review Engineer: Aracelis Strong RN (Registered Nurse) Related Notes: Original Note by Aracelis Strong RN (Registered Nurse) filed at 02/07/16 18 24 Pt very grouchy and intolerant of staff in his room. Insulin drip and D51/2NS discontinued and NS 110 initiated. Pt given 10 units novolog for BG 353 for lunch. Pt refusing blood suga r checks for evening meal as he is not ready to eat at that time. RN to room to check if pt is ready to eat dinner; pt had already consumed tray but is apologetic he did not call for b lood sugar check first. Post prandial sugar 298. 8 units insulin administered. Currently amb [facility]. Report given to ERIKA Araujo. Aracelis Strong RN onver danie Transaction, Provider Unknown - 02/07/2016 3:27 PM PDT Case Management by Rhea Kaiser RN at 02/07/16 1527 Author: Rhea Kaiser RN Service: (none) Author Type: Registered Nurse Filed: 02/07/16 3777 Date of Service: 02/07/16 1527 Status: Addendum Review Engineer: Rhea Kaiser RN (Registered Nurse) Related Notes: Original Note by Rhea Kaiser RN (Registered Nurse) filed at 02/07/16 1 527 02/07/16 1456 Discharge Planning Evaluation Admitting Diagnosis diabetic ketoacidosis without coma assoc w/ type I DM Readmission No Living Arrangements Alone Support Systems Parent Type of Residence Private residence Independent with ADL's Yes Independent with Mobility Yes Home Care Services No Caregiver after Discharge Other (comment) (spoke with patient and with mom Blossom [phone], patient resides with mom, sleeps on the couch, patient and mom would like patient to live in assisted living ) Mental Status Oriented Power of Wheel Press Clerk No Anticipated Discharge Plan Post Acute Care Needs Other (comment) (patient with DM type I, and schizophrenia) Plan communicated to patient/family Yes (patient was okay with his mother being present during assessement ) Resources Financial concerns No Transportation issues No (mother will transport) Patient/Family concerns Yes (mother of patient states patient lays on the couch disregards CBG, doesnt take his insulin , acts like he wants to dies) Prescription Plan No Previous home health equipment No Vascular access device No Ostomy/Drains/Appliances No Anticipated Disposition Facility Type Home (CM will check for AFH in [facility]) Met with: CM spoke with patient and patient mother (with pt permission) to discuss discharg e planning, Pt is a 35 y.o., male, whom arrived via life flight to [facility] from [facility] due to DKA. Patient with dx of DM type I, schizophrenia. Patient resided in [facility] for 5 years. Patient and patient mother Blossom [phone] would like leonardo ent to live independent of parent in [facility] or assisted living in [facility]. CM to contact Brody with [facility] in [place] for information concerning patient. Patient states he "just needs some help to get his life back on track." Patient is able to perform ADL's and ambulat e independently. Patient does not drive and is not working at this time, but has a food hand lers card. Patient admitted to getting confused regarding his diabetes and use of insulin. Linda ball's mother reports patient lies on the couch for days not taking care of his diabetes. Patient uses no DME, no oxygen, no blood thinners. Patient's PCP is: No primary care provider on file. Patient's insurance: Medicaid [facility] Coverage concerns: no Medication coverage/concerns: non compliant with DM I CBG and insulin use Community resources utilized / needed: patient is requesting long-term placement and help to get his life back on track Assistance in transportation: patient's mother will transport Blossom [phone] Identification of any specific education / training: MD ordered DM education Barriers to Discharge / Alternative housing needed: patient requests AF Anticipated DCP: patient will discharge to his mothers house. Rhea Kaiser Lanre Washington MD - 02/07/2016 10:01 AM PDT Progress Notes by Lanre Pan MD at 02/07/16 1001 Author: Lanre Pan MD Service: Hospitalist Author Type: Physician Filed: 02/07/16 1542 Date of Service: 02/07/16 1001 Status: Signed Review Engineer: Lanre Pan MD (Physician) [facility] Service: Hospitalist Progress Note Hospital Day: LOS: 1 day Post-Op Day: * No surgery found * SUBJECTIVE Patient Summary: admission H and P Dr. Kan:"The patient is a 35 y.o. male wi th significant past medical history of schizophrenia, patient states last admission to [facility] was 2 years ago, ADHD, depression, type I diabetes mellitus diagnos ed at age 4 according to the patient and about 3 episodes of admissions for DKA since he mov ed to [place]. Per Dr. Dunaway, [facility] emergency room the patient and had a couple of admissions of this year for DKA. Patient had been kicked out of the [facility] had been smoking marijuan a which the patient admits. Had presented to [facility] emergency room today after a friend had brought in because t he patient was"feeling good". According to the patient had been taking his diabetes medicati on, states aside from smoking marijuana I do suggest any other drugs and takes his regular m edication, had not had a fever at home, I had a little bit of nausea and vomiting, no diarrh ea, complains of pain in his joints. Patient's grandma according to the mother and this is r elayed to me by Dr. Dunaway of [facility] ER, had about a week prior to admission and the patient has been laying in the [place] for the last 4 days during nothing she medications. Per mother the patient also had lost 100 pounds since october of this year. Patient was seen at the [facility] Emergency Department, was noted to be tachycardic and tachypneic I was told initially his heart rate was in the 120s, respiration was in the mid 20s, patient was refusing to answer questions or could not answer questions according to [facility], labs showed he was in DKA, he was given 2 L of IV fluid bolus w sandra there, subsequently hospitalist and ICU attending was called at [facility] for a transfer of patient, Dr. Vega recommended giving the patient bicarbonate and potassium which was done , the patient was also in the process of being given 2 more liters of normal saline and was transferred at acute care floor in [facility]. By the time admitting hospitalist and the patient's main complaint was pain on his shoulder s, pain in his joints, I was able to tell me some of his history, I stated that he had had a little bit of nausea and vomiting since yesterday, he stated that been taking his diabete s medication and his other medications, he denied fever or chills, no numbness or weakness. " Events Overnight: Patient admitted yesterday evening with diabetic ketoacidosis, anio n gap 13, patient placed on insulin drip and Subsequently 23. Patient indicates feeling much improved, asking when he can eat. He denies any nausea no emesis no sore throat no fever no chills. Scheduled Medications famotidine 20 mg Oral BID Or famotidine 20 mg Intravenous BID heparin (porcine) 5000 unit/0.5mL 5,000 Units Subcutaneous Q8H insulin detemir 10 Units Subcutaneous BID insulin lispro (human) 0-3 Units Subcutaneous Nightly insulin lispro (human) 0-6 Units Subcutaneous TID AC insulin lispro (human) 5 Units Subcutaneous TID AC pneumococcal 23-valent vaccine 0.5 mL Intramuscular Once Immunization Continuous Infusions dextrose dextrose dextrose 5 % and 0.45 % NaCl 200 mL/hr (02/07/16 0614) insulin regular (NOVOLIN R) infusion sodium chloride (IV) PRN Medications acetaminophen OR acetaminophen, benzocaine-menthol, dextrose, dextrose, dextrose, dextr ose, dextrose, dextrose, glucagon, glucagon, glucagon, glucagon, magnesium sulfate OR ma gnesium sulfate OR magnesium sulfate, morphine OR morphine OR morphine, ondanset wendie OR ondansetron, phosphorus OR sodium phosphate IVPB 10 mmol OR sodium phosph ate IVPB 20 mmol, polyethylene glycol, potassium chloride OR potassium chloride OR p otassium chloride, sodium chloride (IV), zolpidem OBJECTIVE Vital Signs: BP 105/58 mmHg | Pulse 72 | Temp(Src) 98.8 F (37.1 C) (Oral) | Resp 18 | Ht 1.765 m (5' 9.5") | Wt 60 kg (132 lb 4.4 oz) | BMI 19.26 kg/m2 | SpO2 96% Temp: [98.2 F (36.8 C)-98.8 F (37.1 C)] 98.8 F (37.1 C) (02/06 833) BP: (92-113)/(51-75) 105/58 mmHg (02/06 833) Heart Rate: [68-88] 72 (02/06 833) Resp: [18-20] 18 (02/06 833) SpO2: [95 %-99 %] 96 % (02/06 833) Weight: [60 kg (132 lb 4.4 oz)] 60 kg (132 lb 4.4 oz) (02/06 0340) Physical Exam Constitutional: He is oriented to person, place, and time. He appears well-developed and we ll-nourished. Patient is awake, alert, flat affect, answering my questions though minimally, nontoxic-mervat earing HENT: Mouth/Throat: Oropharynx is clear and moist. No oropharyngeal exudate. Cardiovascular: Normal rate. Abdomina/Gl: Soft. Bowel sounds are normal. He exhibits no distension. There is no tenderne ss. Neurological: He is alert and oriented to person, place, and time. Skin: Skin is warm. No erythema. Psychiatric: He has a normal mood and affect. His behavior is normal. Nursing note and vitals reviewed. DATA CBC: Lab Results Component Value Date WBC 8.62 02/07/2016 RBC 3.17* 02/07/2016 HGB 10.2* 02/07/2016 HCT 29.6* 02/07/2016 MCV 93.3 02/07/2016 MCH 32.0 02/07/2016 MCHC 34.3 02/07/2016 RDW 46.4 02/07/2016 PLT 209 02/07/2016 MPV 7.5 02/07/2016 DIFFTYPE AUTOMATED 02/07/2016 BMP: Lab Results Component Value Date NA 133* 02/07/2016 K 3.1* 02/07/2016 CL 107 02/07/2016 CO2 16* 02/07/2016 ANIONGAP 13 02/07/2016 GLUF 173* 02/07/2016 BUN 7* 02/07/2016 CREATININE 0.63* 02/07/2016 BCR 11 02/07/2016 CA 7.2* 02/07/2016 EGFR >60 02/07/2016 PROBLEM LIST Principal Problem: Diabetic ketoacidosis without coma associated with type 1 diabetes mellitus (HCC) Active Problems: Schizophrenia (HCC) Attention-deficit hyperactivity disorder, predominantly hyperactive type Depression Leukocytosis (leucocytosis) Dehydration ASSESSMENT & PLAN 1. Diabetic ketoacidosis - Anion gap has closed, presently 23 CO2 is still low at 16, though patient indicates feeli ng hungry resolved nausea feeling much better, we will transition off insulin drip over critical access hospital htime., Appreciate Dr. Gonzales input, Levemir 10 units bid, Humalog 5 units before each meal i n addition to low-dose insulin sliding scale - Continue IV hydration - Continue electrolyte resolution 2. History of schizophrenia - Presently flat affect, though seems to be interacting well 3. Electrolyte - Secondary to DKA/dehydration, correcting, Disposition: Code Status: Full Code Lanre Pan MD 02/07/2016 onversion Transact ion, Provider Unknown - 02/07/2016 9:40 AM PDTFormatting of this note might be different fr om the original. Progress Notes by Darcy Niño RD at 02/07/16939 Author: Darcy Niño RD Service: (none) Author Type: Registered Dietitian Filed: 02/07/1641 Date of Service: 02/07/16939 Status: Signed Review Engineer: Darcy Niño RD (Registered Dietitian) 02/07/16 0931 Subjective Timepoint Admit Pt c/o Pt triggered for screen secondary to low wt/ht. Pt was admitted for DKA without coma associated with type 1 diabetes mellitus. Reported by Patient Diet Experience Self-selected diet(s) followed When asked if he follows any special diet at home, pt looked at me and then put the blanket over his head. Fluid / Beverage Intake Oral Fluids Amount Allowed water while on insulin drip Food Intake Amount of Food NPO. When asked how he ate before coming to the hospital he stated, "I don't want to talk about it." Type of Food / Meals NPO Nutrition-Focused Physical Findings Extremities, Muscles and Bones Unable to see whether pt has had any muscle or fat loss. He had the blanket up to his neck and during visit put blanket over his head. Digestive System (Mouth to Rectum) Would not answer if any issues with chewing or swallowin g. Anthropometrics Weight change Pt's wt of 60 kg puts him at 79% of his IBW. He has a BMI of 19.26. Pt states he has lost 30# within the last couple months. Unsure of information accuracy as pt has bee n unreliable during stay. If he has lost 30# in a couple months he would have experienced a 18.5% wt decrease and this would be considered significant. Biochemical data, medical tests, and procedures reviewed Biochemical data, medical tests, and procedures reviewed Na 134 (L), K 2.9 (L), BG 197 (H) - on insulin drip; CDE consulted. Cr 0.64 (L) - indicates decreased muscle mass. Magnesium 1 .6 (L). Pt is on ERP Estimated Energy Needs Total Energy Estimated Needs 0203-4630 kcal/day Method for Estimating Needs 25-30 kcal/kg based on admit wt 60 kg Estimated Protein Needs Total Protein Estimated Needs 60-78 g/day Method for Estimating Needs 1.0-1.3 g/kg based on admit wt 60 kg Recommendations Recommended energy needs Once indicated and appropriate, ADAT to diabetic maintenance. Pt m ay benefit from dietary supplements if he has low intake. Encourage intake of consistent swati ls. Will continue to follow per nutrition protocol. Nutritional Risk Nutritional risk High Follow up date 02/10/[address] onver danie Transaction, Provider Unknown - 02/07/2016 6:01 AM PDT Nurse Progress Note by Gayle Gomez RN at 02/07/16 06 Author: Gayle Gomez RN Service: (none) Author Type: Registered Nurse Filed: 02/07/16 0605 Date of Service: 02/07/16 06 Status: Signed Review Engineer: Gayle Gomez RN (Registered Nurse) No changes to initial assessment except that patient is more awake and alert than at the st art of the shift. He c/o being hungry and wants to eat saying he hasn't eaten all day. I exp lained to him that he won't get to eat until he is off the insulin gtt- attempted to say he wasn't going to stay on it any longer. Insulin gtt currently running at 1 unit/hr. Will cont inue to monitor onver danie Transaction, Provider Unknown - 02/06/2016 4:22 PM PDT Nurse Progress Note by Jace Yanez RN at 02/06/16 162 Author: Jace Yanez RN Service: (none) Author Type: Registered Nurse Filed: 02/06/16 163 Date of Service: 02/06/161621 Status: Signed Review Engineer: Jace Yanez RN (Registered Nurse) Pts mother, Blossom, came by hospital to see son and will head back to [place]. She stat es that pts schizophrenia started at age 19 or 20, and that pt often thinks he is other peop le (ie, [facility]), and often mixes fiction with reality. [facility] [place] [facility] and on for the last 5 years, and has been in [place] since September. Karyn muñiz has been working to find him placement but has not found it and he has been at his mom' s since September. Per his mother he has been very depressed recently and after a recent hospit al admission said he wanted to end it all. Blossom is requesting that pt have a psych eval prior to DC, and assist from Case Management for safe placement. docume nted in this encounter H&P Notes Cody Kan MD - 02/06/2016 8:49 AM PDTFormatting of this note might be diff erent from the original. H&P by Cody Kan MD at 02/06/16 0849 Author: Cody Kan MD Service: Hospitalist Author Type: Physician Filed: 02/20/16 1417 Date of Service: 02/06/16 0849 Status: Addendum Review Engineer: Cody Kan MD (Physician) Related Notes: Original Note by Cody Kan MD (Physician) filed at 02/07/16 1611 [facility] Service: Hospitalist Admission History & Physical Date of Admission: 02/06/2016 Requesting Physician: Gmue Finn, Emergency Department [facility] Reason for Admission: DKA History Obtained From: patient, chart review, Quality of history: fair CHIEF COMPLAINT: DKA HISTORY OF PRESENT ILLNESS The patient is a 35 y.o. male with significant past medical history of schizophrenia, leonardo ent states last admission to [facility] was 2 years ago, ADHD, depression, type I diabetes mellitus diagnosed at age 4 according to the patient and about 3 episodes o f admissions for DKA since he moved to [place]. Per Dr. Dunaway, [facility] emergency room the patie nt and had a couple of admissions this year for DKA. Patient had been kicked out of the [place] up home as he had been smoking marijuana which the patient admits. Had presented to [facility] emergency room today after a friend had brought in because t he patient was"feeling good". According to the patient had been taking his diabetes medicati on, states aside from smoking marijuana he denies taking any other drugs and takes his regul ar medication, had not had a fever at home, had a little bit of nausea and vomiting, no isaac rrhea, complains of pain in his joints. Patient's grandma according to the mother and this i s relayed to me by Dr. Dunaway of [facility] ER, had about a week prior to admission and the leonardo ent has been laying in the couch for the last 4 days doing nothing. Per mother the patient a lso had lost 100 pounds since October of this year. Patient was seen at the [facility] Emergency Department, was noted to be tachycardic and tachypneic Admitting hospitalist was told initially his heart rate was in the 120s, respira tion was in the mid 20s, patient was refusing to answer questions or could not answer questi ons according to Emergency Department physician, labs showed he was in DKA, he was given 2 L of IV fluid bolus while there, subsequently hospitalist and ICU attending was called at [facility] for a transfer of patient, Dr. Vega recommended giving the patient bicarbonate and pota ssium which was done, the patient was also in the process of being given 2 more liters of no rmal saline and was transferred to acute care floor in [facility]. By the time admitting hospitalist saw the patien, the patient's main complaint was pain on his shoulders, pain in his joints, he was able to tell me some of his history, he stated t hat he had had a little bit of nausea and vomiting since yesterday, he stated that been taki ng his diabetes medication and his other medications, he denied fever or chills, no numbness or weakness. REVIEW OF SYSTEMS ROS obtained from patient, chart review. A comprehensive review of systems was negative except for items mentioned in HPI Past Medical History Diagnosis Date Diabetic ketoacidosis without coma associated with type 2 diabetes mellitus (HCC) 2015 Schizophrenia (HCC) 02/06/2016 No past surgical history on file. Immunizations: Influenza: RN to evaluate and assess and give per protocol if needed Pneumoccocal: RN to evaluate and assess and give per protocol if needed Allergies not on file No prescriptions prior to admission No family history on file. History Social History Marital Status: N/A Spouse Name: N/A Number of Children: N/A Years of Education: N/A Occupational History Not on file. Social History Main Topics Smoking status: Not on file Smokeless tobacco: Not on file Alcohol Use: Not on file Drug Use: Not on file Sexual Activity: Not on file Other Topics Concern Not on file Social History Narrative No narrative on file PHYSICAL EXAM BP 102/63 mmHg | Pulse 100 | Temp(Src) 96.4 F (35.8 C) (Oral) | Resp 22 | Ht 1.765 m (5 ' 9.5") | Wt 55.974 kg (123 lb 6.4 oz) | BMI 17.97 kg/m2 | SpO2 100% General Appearance: Alert, cooperative, tachypneic but no distress, somewhat disheveled appears older than stated age, fairly developed, thin Head: Normocephalic, without obvious abnormality, atraumatic Eyes: PERRL, conjunctiva/corneas clear, EOM's intact, Ears: Normal external ear canals, both ears Nose: Nares normal, septum midline, mucosa normal, no drainage or sinus tenderness Throat: Lips, mucosa, and tongue dry; teeth and gums poor dentition Neck: Supple, symmetrical, trachea midline, no adenopathy; thyroid: No enlargement/tenderness/nodules; no carotid bruit or JVD Back: Symmetric, no curvature, ROM normal, no CVA tenderness Lungs: Clear to auscultation bilaterally, respirations unlabored Chest wall: No tenderness or deformity Heart: Regular rate and rhythm, S1 and S2 normal, no murmur, rub or gallop Abdomen: Soft, non-tender, bowel sounds active all four quadrants, no masses, no organomegaly Extremities: Extremities normal, atraumatic, no cyanosis or edema Pulses: 2+ and symmetric all extremities Skin: Skin color, texture, turgor poor, no rashes or lesions Lymph nodes: Cervical, supraclavicular, and axillary nodes normal Neurologic: CNII-XII intact. Normal strength, sensation and reflexes throughout DATA Labs from [facility] CBC: WBCs 12.6, hemoglobin 15.9, hematocrit 45.9, MCH is 95.6 and MCH is 33.1, platelets ar e 485, RDW is 12.0, neutrophils are 70.4, lymphocytes are 19.6, monocytes are 8.1 CMP: Sodium 1:30, potassium 4.6, chloride 94, carbon dioxide less than 5, anion gap 31, ran dom glucose 621 and 647, BUN 26, creatinine 2.09, GFR estimated 36, calcium level 9.8, corre cted calcium 9.6, total protein 7.0, albumin 4.3, globulin 2.7, total bilirubin 0.3 ABG: PH is 6.91, CO2 is 10, O2 is 138, HCO3 is to base excess 30.7, O2 sat 96.7 ABG total 2 .3 FiO2 was 21 percent. Urinalysis showed yellow clear urine with specific gravity 1.025 pH was 5.0 glucose was 352 and was 3+ blood was 1+ protein 1+ negative nitrites and negative leukocyte esterase, no RB C was seen there previously was 1-2 and he had 11-15 coarse granular casts EKG: Sinus tachycardia no acute ST-T wave changes. CXR from [facility] no pneumonia or other acute process as reviewed by me PROBLEM LIST Principal Problem: Diabetic ketoacidosis without coma associated with type 1 diabetes mellitus (HCC) Active Problems: Schizophrenia (HCC) Attention-deficit hyperactivity disorder, predominantly hyperactive type Depression ASSESSMENT & PLAN Patient Active Hospital Problem List: Diabetic ketoacidosis without coma associated with type 2 diabetes mellitus (HCC) (02/06/20 16) Assessment: Improved from what was described to be earlier this morning at 7 AM Plan: Admit, still loking dehydrated, continue with aggressive hydration I will give the patient a total of 5 L of IV fluid patient will be on DKA protocol, asked for stat CBC CMP A BG, HbA1C, asked for medical records from his last admission and discharge summary from [facility] to be faxed here. heparin for deep vein thrombosis prophylaxis. L eukocytosis is probably reactive and at this point I will hold off on giving antibiotics. Schizophrenia ([facility]) (02/06/2016) Assessment: not in exacerbation Plan: should have his medications once eating and I have asked for staff analyst to reconcile his medications from his pharmacy in [place] Attention-deficit hyperactivity disorder, predominantly hyperactive type Assessment:not in exacerbation Plan: will should have his medications he should not once eating and I have asked for staff analyst to reconcile his medications from his pharmacy in [place] Depression Assessment: not in exacerbation Plan: should have his medications restarted once eating and I have asked for staff analyst to reconcile his medications from his pharmacy in [place] I explained radiology and lab findings, plan of care and management to patient at bedside, told them somebody else from the hospitalist service will see patient later. Patient leo ramosed understanding and agreement with plan of care and did not have any more questions for me after my interaction with him. More than 70 minutes spent on admitting this patient face to face at bedside, taking history and physical examination, more than 65% of this spent on explaining plan of care to patient at bedside, chart review,formulating a plan and placing orders coordinating care with other providers well as Computerized Charge Attendant. Other recom mendations for management of this patient will be dependent upon the patient's clinical cour se. Inpatient, patient will require minimum of 2 night stay due to complexity of patient's medi cristobal conditions, and need to stabilize patient's underlying conditions Addendum: discussed case with Dr. Gonzales of Endocrinology and she will see patietn this noon . 1130 AM: repeat VBG ph is 6.957 will not repeat administration of NAHCO3 Disposition: Admit as Inpatient to Acute Care Floor Dictation software, Kukunu, used which may contain error for similar sounding words even af ter review. Personal communication requested for any clarification. Portions of this chart may have been copied from previous notes for continuity of care. Disposition: ? Homeless CM consulted for help with placement on discahrge Code Status: Full Code Primary Care Physician: No primary care provider on file. Cody Kan MD 02/06/2016 documented in this encounter Consult Notes Margarita Gonzales MD - 02/08/2016 6:24 AM PDTFormatting of this note might be different fr om the original. Consult* by Margarita Gonzales MD at 02/08/16623 Author: Margarita Gonzales MD Service: (none) Author Type: Physician Filed: 02/08/16 0735 Date of Service: 02/08/16623 Status: Signed Review Engineer: Margarita Gonzales MD (Physician) [facility] Service: Endocrinology Follow Up Consult Note Date of Admission: 02/06/2016 Reason for Consultation: DKA Requesting Physician: Hospitalist History Obtained From: patient, chart review CHIEF COMPLAINT: High sugars HISTORY OF PRESENT ILLNESS The patient is 35 y.o. male with significant past medical history of T1DM with recurrent DK A, Schizophrenia, depression who presents with DKA. Reviewed interval MAR, notes, vitals, labs, imaging Interval events: Pt transitioned off drip yesterday AM with BG running in the high 200s Seen by nurse educator yesterday. Per nursing noted, some of the below BG are postprandial as pt not cooperating with [facility] nursing staff re:planned mealtimes More awake today - was willing to tell me that at home he took lantus 12 in the am and 6 in the pm "and sometimes it drops me" Tolerating POs and ambulating Received levemir 10 units x2 9 corrective humalog 5 units of mealtime humalog x2 Component Latest Ref Rng 02/07/2016 02/07/2016 02/07/2016 02/07/2016 4:36 AM 5:28 AM 6:32 AM 7:31 AM GLUCOSE,POC SCREEN 65 - 99 mg/dL 253 (H) 214 (H) 204 (H) 192 (H) Component Latest Ref Rng 02/07/2016 02/07/2016 02/07/2016 02/07/2016 8:36 AM 9:33 AM 10:27 AM 11:25 AM GLUCOSE,POC SCREEN 65 - 99 mg/dL 187 (H) 198 (H) 196 (H) 316 (H) Component Latest Ref Rng 02/07/2016 02/07/2016 02/07/2016 02/08/2016 12:34 PM 6:24 PM 9:26 PM 5:37 AM GLUCOSE,POC SCREEN 65 - 99 mg/dL 353 (H) 298 (H) 271 (H) 284 (H) unaccompanied PREVIOUSLY OBTAINED INFORMATION Per outside records - pt presented to [facility] after several days of "lying on the cou ch." Pt has recently been discharged from his long-term 2/2 marijuana use. Grandmother has rece ntly . Family members thought pt was simply suffering from depression over the pa st few days. Presented to [facility], found to have pH of 6.01 on ABG and CO2 of 5. Transferred to [facility], pt has now received at least 4L of IVF, with some improvement in lab s and vitals. Currently receiving 4u/hr on insulin drip. Pt sleepy. Nursing staff reports they have spoken with mother. Pt has been in mental health facilities for several years, currently has a transient living situation. Mother reports he has lost 100 pounds in the recent past. I was unable to obtain more details regarding patients diabetes history. unaccompanied REVIEW OF SYSTEMS Review of Systems Constitutional: Positive for fatigue. Negative for activity change and unexpected weight ch kim. HENT: Negative for congestion, postnasal drip, rhinorrhea, sore throat, trouble swallowing and voice change. Eyes: Negative for visual disturbance. Respiratory: Negative for cough, choking, chest tightness and shortness of breath. Cardiovascular: Negative for chest pain, palpitations and leg swelling. Gastrointestinal: Negative for nausea, vomiting, abdominal pain, diarrhea and constipation. Endocrine: Positive for polydipsia, polyphagia and polyuria. Genitourinary: Negative for dysuria, frequency and difficulty urinating. Musculoskeletal: Positive for myalgias and arthralgias. Negative for back pain, joint swell ing, neck pain and neck stiffness. Skin: Negative for rash and wound. Neurological: Negative for dizziness, tremors, syncope, weakness, light-headedness, numbnes s and headaches. Psychiatric/Behavioral: Positive for sleep disturbance and dysphoric mood. Negative for dec reased concentration. The patient is nervous/anxious. All other systems reviewed and are negative. Past Medical History Diagnosis Date Schizophrenia ([facility]) 02/06/2016 Attention-deficit hyperactivity disorder, predominantly hyperactive type 02/06/2016 Depression 02/06/2016 Leukocytosis (leucocytosis) 02/06/2016 Diabetes mellitus type I ([facility]) History reviewed. No pertinent past surgical history. Allergies Allergen Reactions Fexofenadine Other (See Comments) Unknown Haldol [Haloperidol] Other (See Comments) Unknown Risperidone Other (See Comments) unknown Shellfish Allergy Swelling Prescriptions prior to admission Medication Sig Dispense Refill Last Dose albuterol (PROVENTIL) (2.5 MG/3ML) 0.083% nebulizer solution Take 2.5 mg by nebulizatio n every 4 (four) hours as needed for Wheezing. More than a month at Unknown time aspirin 81 MG EC tablet Take 81 mg by mouth daily with breakfast. 02/05/2016 at 0800 atomoxetine (STRATTERA) 80 MG capsule Take 80 mg by mouth daily. Past Month at Unknow n time atorvastatin (LIPITOR) 10 MG tablet Take 10 mg by mouth nightly. More than a month at Unknown time insulin glargine (LANTUS) 100 UNIT/ML injection Inject 9 Units into the skin every morn ing. 02/05/2016 at 0800 insulin glargine (LANTUS) 100 UNIT/ML injection Inject 3 Units into the skin nightly. 02/05/2016 at 2200 insulin lispro, human, (HUMALOG) 100 UNIT/ML injection Inject 1 Units into the skin 3 ( three) times daily before meals. One unit for above 135 blood glucose. For every 25 blood gl ucose above 135 one additional unit. 02/06/2016 at Unknown time propranolol (INDERAL) 20 MG tablet Take 30 mg by mouth 2 (two) times daily. More than a month at Unknown time zolpidem (AMBIEN) 5 MG tablet Take 5 mg by mouth nightly as needed for Sleep. More th an a month at Unknown time Scheduled Medications famotidine 20 mg Oral BID Or famotidine 20 mg Intravenous BID heparin (porcine) 5000 unit/0.5mL 5,000 Units Subcutaneous Q8H insulin detemir 10 Units Subcutaneous BID insulin lispro (human) 0-3 Units Subcutaneous Nightly insulin lispro (human) 0-6 Units Subcutaneous TID AC insulin lispro (human) 5 Units Subcutaneous TID AC pneumococcal 23-valent vaccine 0.5 mL Intramuscular Once Immunization Continuous Infusions dextrose sodium chloride (IV) sodium chloride (IV) 110 mL/hr at 02/08/16 0211 PRN Medications acetaminophen OR acetaminophen, benzocaine-menthol, dextrose, dextrose, dextrose, gluca sandra, glucagon, magnesium sulfate OR magnesium sulfate OR magnesium sulfate, morphine OR morphine OR morphine, ondansetron OR ondansetron, phosphorus OR sodium p hosphate IVPB 10 mmol OR sodium phosphate IVPB 20 mmol, polyethylene glycol, potassium c hloride OR potassium chloride OR potassium chloride, sodium chloride (IV), zolpidem History reviewed. No pertinent family history. History Social History Marital Status: Single Spouse Name: N/A Number of Children: N/A Years of Education: N/A Occupational History Not on file. Social History Main Topics Smoking status: Current Every Day Smoker -- 1.00 packs/day Smokeless tobacco: Not on file Alcohol Use: No Drug Use: Yes Special: Marijuana Comment: [facility] reports hx of meth use. Sexual Activity: Not on file Other Topics Concern Not on file Social History Narrative No narrative on file PHYSICAL EXAM Vital Signs: BP 144/86 mmHg | Pulse 81 | Temp(Src) 98.6 F (37 C) (Oral) | Resp 17 | Ht 1.765 m (5' 9 .5") | Wt 60 kg (132 lb 4.4 oz) | BMI 19.26 kg/m2 | SpO2 95% Temp: [97.6 F (36.4 C)-98.8 F (37.1 C)] 98.6 F (37 C) (02/08 356) BP: (105-148)/(58-101) 144/86 mmHg (02/08 356) Heart Rate: [68-89] 81 (02/08 356) Resp: [17-18] 17 (02/08 356) SpO2: [95 %-100 %] 95 % (02/08 356) Physical Exam Constitutional: He is oriented to person, place, and time. No distress. HENT: Head: Normocephalic and atraumatic. Right Ear: External ear normal. Left Ear: External ear normal. Nose: Nose normal. Mouth/Throat: Oropharynx is clear and moist. No oropharyngeal exudate. edentulous Eyes: Conjunctivae and EOM are normal. Pupils are equal, round, and reactive to light. Righ t eye exhibits no discharge. Left eye exhibits no discharge. No scleral icterus. Neck: Normal range of motion. Neck supple. No JVD present. No tracheal deviation present. N o thyromegaly present. Thyroid normal size and consistency without nodularity or tenderness to palpation, though d ifficult to palpate with pt lying in bed Cardiovascular: Normal rate, regular rhythm, normal heart sounds and intact distal pulses. Exam reveals no gallop and no friction rub. No murmur heard. Pulmonary/Chest: Effort normal and breath sounds normal. No stridor. No respiratory distres s. He has no wheezes. He has no rales. He exhibits no tenderness. Abdomina/Gl: Soft. Bowel sounds are normal. He exhibits no distension and no mass. There is no tenderness. There is no rebound and no guarding. Musculoskeletal: He exhibits no edema or tenderness. Lymphadenopathy: He has no cervical adenopathy. Neurological: He is alert and oriented to person, place, and time. Skin: Skin is warm and dry. No rash noted. He is not diaphoretic. No erythema. No pallor. Psychiatric: Minimal eye contact Minimal response to questions Nursing note and vitals reviewed. DATA CBC: Lab Results Component Value Date WBC 6.22 02/08/2016 RBC 3.53* 02/08/2016 HGB 11.5* 02/08/2016 HCT 32.3* 02/08/2016 MCV 91.6 02/08/2016 MCH 32.6 02/08/2016 MCHC 35.6* 02/08/2016 RDW 45.1 02/08/2016 PLT 218 02/08/2016 MPV 7.6 02/08/2016 DIFFTYPE AUTOMATED 02/07/2016 CMP: Lab Results Component Value Date NA 133* 02/08/2016 K 3.2* 02/08/2016 CL 100 02/08/2016 CO2 22* 02/08/2016 ANIONGAP 14 02/08/2016 GLUF 282* 02/08/2016 BUN 15 02/08/2016 CREATININE 0.8 02/08/2016 BCR 19 02/08/2016 CA 7.7* 02/08/2016 PROT 4.8* 02/08/2016 ALB 2.3* 02/08/2016 GLOB 2.5 02/08/2016 BILITOT 0.2 02/08/2016 ALP 87 02/08/2016 AST 15 02/08/2016 ALT 17 02/08/2016 EGFR >60 02/08/2016 HgBA1c: Lab Results Component Value Date HGBA1C 16.3* 02/06/2016 LABGLYC 421 02/06/2016 PROBLEM LIST Principal Problem: Diabetic ketoacidosis without coma associated with type 1 diabetes mellitus (HCC) Active Problems: Schizophrenia (HCC) Attention-deficit hyperactivity disorder, predominantly hyperactive type Depression Leukocytosis (leucocytosis) Dehydration ASSESSMENT & PLAN DKA: Longstanding T1DM, recurrent DKA. +Significant barriers to optimal diabetes care inclu ding financial and social factors. I have attempted to obtain information regarding patients medical history through second information due to patients AMS Now that pt has transitioned off drip -increase levemir to 13 units twice daily -increase novolog 7 units TID with meals -continue low dose corrective algorithm qAC and qHS Remainder of patients medical conditions to be managed by primary care team and other invol penny specialists. RTC to see me as an outpatient likely 2-4 weeks I spent 25 minutes with this patient. Greater than 50% of the time (15 min) was spent in co unseling and coordination of patient care as detailed above. Code Status: Full Code Primary Care Physician: No primary care provider on file. Thank you for allowing me to participate in the care of this patient. I will continue to follow with you. Please call if there are any additional questions. Margarita Gonzales MD 02/08/2016 onversion Transact ion, Provider Unknown - 02/07/2016 5:19 PM PDTFormatting of this note might be different fr om the original. Consults by Luís Orozco RN, CDE at 02/07/161718 Author: Luís Orozco RN, CDE Service: (none) Author Type: [employer]ooth [employer]ucco Resurfacer Filed: 02/07/16 692 Date of Service: 02/07/161718 Status: Signed Review Engineer: Luís Orozco RN, CDE ([employer] Resurfacer) Consult Orders: 1. Inpatient consult to nurse educator [[id number]] ordered by Margarita Gonzales MD at 02/06 0173 Diabetes Education Met with Patient today. Reports he has had Diabetes for 31 years. Patient poor historian regarding insulin dose regimen used at home. Gave conflicting information on meal time insulin dosing, and self adjusts long acting insu ekaterina "based on what I'm doing that day" at one time stated "Some days I've gotten it to where I don't need any insulin at all." Reports he usually takes Lantus 9 units AM and 3 units PM, and Humalog at meals if BG >155 (vague with scale parameters). Was vague on if or when he would give any insulin for food/carbs at meals. Patient reports he is currently living in [facility], and at times receives assistanc e from "[employer]" to help with placement/mcc "They helped me get a hotel for a week." Morris whyte also states, "Sometimes I'll stay at friends or with Family." Reports he [facility] and reports that he usually does not have difficulty obtaining Diabetes supplies. Discussed recent A1c of 16.3% and corresponding estimated average BG. Discussed current hospital insulin regimen; Patient aware that dosing amounts may change pe nding BG response. Discussed sick day guidelines. Discussed Type 1 Diabetes, and importance of not skipping insulin. Discussed DKA and ketone development, and how ketones develop when insulin is not given. Discussed hypoglycemia s/s tx and prevention, "Rule of 15". Patient to notify staff if havi ng any symptoms of low blood sugar. Discussed insulin onset/peak/duration, and insulin storage and expiration. Patient reports that he has been keeping his insulins at room temperature (including unused /unopened insulin pens still in the box). Patient verbalized understanding today, that only one of each type of insulin pen should be out of the box at a time (good for ~30 days), with remaining unopened insulin pens to be st ored in the fridge. Patient reports that he will have access to fridge to store unopened ins ulin pens. Patient did have questions regarding carb counting of specific food choices, and we discuss ed carb counting using "Diabetes Management" booklet as a reference. Discussed Out Patient Diabetes Education, and provided contact information for [facility] located in [place]. Encouraged Patient to discuss Diabetes Education with provider at next "clinic visit". Written materials "Diabetes Management" booklet and "Sick Day Guidelines" handout provided today. Patient with no further Diabetes questions/concerns at this time. At discharge, will need Rx for Lantus and Humalog insulin pens, as Patient's current stock of insulin pens was not stored properly in fridge and have been at room temperature for long er than 30 days. Patient was followed by Assistant [employer] earlier today. Current insulin orders as per Endocr inologist recomendations. Margarita Mcduffie MD - 02/07/2016 6:29 AM PDT Consult* by Margarita Gonzales MD at 02/07/16628 Author: Margarita Gonzales MD Service: (none) Author Type: Physician Filed: 02/07/16 0725 Date of Service: 02/07/16628 Status: Signed Review Engineer: Margarita Gonzales MD (Physician) [facility] Service: Endocrinology Follow Up Consult Note Date of Admission: 02/06/2016 Reason for Consultation: DKA Requesting Physician: Hospitalist History Obtained From: patient, chart review CHIEF COMPLAINT: High sugars HISTORY OF PRESENT ILLNESS The patient is 35 y.o. male with significant past medical history of T1DM with recurrent DK A, Schizophrenia, depression who presents with DKA. Reviewed interval MAR, notes, vitals, labs, imaging Interval events: BG has been running in the 200s, AG still 14. IVF are D51/2NS Pt has required a total of 38 units in the past 22 hours or so - more recently has been on insulin drip at 1 u/hr for the past 12 hours. Mother came to the hospital yesterday per nursing note Pt reports being hungry. Overall he is very sleepy today. Regarding his diabetes, all he wo uld state is that "I wasn't really taking care of my diabetes, sometimes taking insulin" - a nd he would fall asleep again. unaccompanied PREVIOUSLY OBTAINED INFORMATION Per outside records - pt presented to [facility] after several days of "lying on the cou ch." Pt has recently been discharged from his long-term 2/2 marijuana use. Grandmother has rece ntly . Family members thought pt was simply suffering from depression over the pa st few days. Presented to [facility], found to have pH of 6.01 on ABG and CO2 of 5. Transferred to [facility], pt has now received at least 4L of IVF, with some improvement in lab s and vitals. Currently receiving 4u/hr on insulin drip. Pt sleepy. Nursing staff reports they have spoken with mother. Pt has been in mental health facilities for several years, currently has a transient living situation. Mother reports he has lost 100 pounds in the recent past. I was unable to obtain more details regarding patients diabetes history. unaccompanied REVIEW OF SYSTEMS Review of Systems Unable to perform ROS: Acuity of condition Past Medical History Diagnosis Date Schizophrenia (HCC) 02/06/2016 Attention-deficit hyperactivity disorder, predominantly hyperactive type 02/06/2016 Depression 02/06/2016 Leukocytosis (leucocytosis) 02/06/2016 Diabetes mellitus type I (HCC) History reviewed. No pertinent past surgical history. Allergies Allergen Reactions Fexofenadine Other (See Comments) Unknown Haldol [Haloperidol] Other (See Comments) Unknown Risperidone Other (See Comments) unknown Shellfish Allergy Swelling Prescriptions prior to admission Medication Sig Dispense Refill Last Dose albuterol (PROVENTIL) (2.5 MG/3ML) 0.083% nebulizer solution Take 2.5 mg by nebulizatio n every 4 (four) hours as needed for Wheezing. More than a month at Unknown time aspirin 81 MG EC tablet Take 81 mg by mouth daily with breakfast. 02/05/2016 at 0800 atomoxetine (STRATTERA) 80 MG capsule Take 80 mg by mouth daily. Past Month at Unknow n time atorvastatin (LIPITOR) 10 MG tablet Take 10 mg by mouth nightly. More than a month at Unknown time insulin glargine (LANTUS) 100 UNIT/ML injection Inject 9 Units into the skin every morn ing. 02/05/2016 at 0800 insulin glargine (LANTUS) 100 UNIT/ML injection Inject 3 Units into the skin nightly. 02/05/2016 at 2200 insulin lispro, human, (HUMALOG) 100 UNIT/ML injection Inject 1 Units into the skin 3 ( three) times daily before meals. One unit for above 135 blood glucose. For every 25 blood gl ucose above 135 one additional unit. 02/06/2016 at Unknown time propranolol (INDERAL) 20 MG tablet Take 30 mg by mouth 2 (two) times daily. More than a month at Unknown time zolpidem (AMBIEN) 5 MG tablet Take 5 mg by mouth nightly as needed for Sleep. More th an a month at Unknown time Scheduled Medications famotidine 20 mg Oral BID Or famotidine 20 mg Intravenous BID heparin (porcine) 5000 unit/0.5mL 5,000 Units Subcutaneous Q8H pneumococcal 23-valent vaccine 0.5 mL Intramuscular Once Immunization Continuous Infusions dextrose dextrose 5 % and 0.45 % NaCl 200 mL/hr (02/07/16613) insulin regular (NOVOLIN R) infusion 1 Units/hr (02/06/161954) sodium chloride (IV) PRN Medications acetaminophen OR acetaminophen, benzocaine-menthol, dextrose, dextrose, dextrose, gluca sandra, glucagon, morphine OR morphine OR morphine, ondansetron OR ondansetron, amira yethylene glycol, sodium chloride (IV), zolpidem History reviewed. No pertinent family history. History Social History Marital Status: Single Spouse Name: N/A Number of Children: N/A Years of Education: N/A Occupational History Not on file. Social History Main Topics Smoking status: Current Every Day Smoker -- 1.00 packs/day Smokeless tobacco: Not on file Alcohol Use: No Drug Use: Yes Special: Marijuana Comment: [facility] reports hx of meth use. Sexual Activity: Not on file Other Topics Concern Not on file Social History Narrative No narrative on file PHYSICAL EXAM Vital Signs: BP 105/64 mmHg | Pulse 68 | Temp(Src) 98.2 F (36.8 C) (Oral) | Resp 18 | Ht 1.765 m (5' 9.5") | Wt 60 kg (132 lb 4.4 oz) | BMI 19.26 kg/m2 | SpO2 95% Temp: [96.4 F (35.8 C)-98.7 F (37.1 C)] 98.2 F (36.8 C) (02/06 033) BP: (92-113)/(51-75) 105/64 mmHg (02/06 033) Heart Rate: [68-100] 68 (02/06 033) Resp: [18-22] 18 (02/06 033) SpO2: [95 %-100 %] 95 % (02/06 033) Height: [176.5 cm (5' 9.5")] 176.5 cm (5' 9.5") (02/05 0850) Weight: [55.974 kg (123 lb 6.4 oz)-60 kg (132 lb 4.4 oz)] 60 kg (132 lb 4.4 oz) (02/06 034 0) BMI (Calculated): [18] 18 (02/05 0850) Physical Exam Constitutional: No distress. HENT: Head: Normocephalic and atraumatic. Right Ear: External ear normal. Left Ear: External ear normal. Nose: Nose normal. Mouth/Throat: Oropharynx is clear and moist. No oropharyngeal exudate. edentulous Eyes: Conjunctivae and EOM are normal. Pupils are equal, round, and reactive to light. Righ t eye exhibits no discharge. Left eye exhibits no discharge. No scleral icterus. Neck: Normal range of motion. Neck supple. No JVD present. No tracheal deviation present. N o thyromegaly present. Thyroid normal size and consistency without nodularity or tenderness to palpation, though d ifficult to palpate with pt lying in bed Cardiovascular: Normal rate, regular rhythm, normal heart sounds and intact distal pulses. Exam reveals no gallop and no friction rub. No murmur heard. Pulmonary/Chest: Effort normal and breath sounds normal. No stridor. No respiratory distres s. He has no wheezes. He has no rales. He exhibits no tenderness. Abdomina/Gl: Soft. Bowel sounds are normal. He exhibits no distension and no mass. There is no tenderness. There is no rebound and no guarding. Musculoskeletal: He exhibits no edema or tenderness. Lymphadenopathy: He has no cervical adenopathy. Skin: Skin is warm and dry. No rash noted. He is not diaphoretic. No erythema. No pallor. Psychiatric: Pt very sleepy - occ opens eyes and will answer questions Nursing note and vitals reviewed. DATA CBC: Lab Results Component Value Date WBC 8.62 02/07/2016 RBC 3.17* 02/07/2016 HGB 10.2* 02/07/2016 HCT 29.6* 02/07/2016 MCV 93.3 02/07/2016 MCH 32.0 02/07/2016 MCHC 34.3 02/07/2016 RDW 46.4 02/07/2016 PLT 209 02/07/2016 MPV 7.5 02/07/2016 DIFFTYPE AUTOMATED 02/07/2016 CMP: Lab Results Component Value Date NA 134* 02/07/2016 K 2.9* 02/07/2016 CL 108 02/07/2016 CO2 15* 02/07/2016 ANIONGAP 14 02/07/2016 GLUF 197* 02/07/2016 BUN 8 02/07/2016 CREATININE 0.64* 02/07/2016 BCR 12 02/07/2016 CA 7.1* 02/07/2016 EGFR >60 02/07/2016 HgBA1c: Lab Results Component Value Date HGBA1C 16.3* 02/06/2016 LABGLYC 421 02/06/2016 PROBLEM LIST Principal Problem: Diabetic ketoacidosis without coma associated with type 1 diabetes mellitus (HCC) Active Problems: Schizophrenia (HCC) Attention-deficit hyperactivity disorder, predominantly hyperactive type Depression Leukocytosis (leucocytosis) Dehydration ASSESSMENT & PLAN DKA: Longstanding T1DM, recurrent DKA. +Significant barriers to optimal diabetes care inclu ding financial and social factors. I have attempted to obtain information regarding patients medical history through second information due to patients AMS -agree with continuing standard DKA protocols and insulin drip for now. when pt is ready to transition off drip : -recommend 10 units levemir x1, stop drip 2 hours later. Then plan for another 10 units of levemir 12 hours later to establish 10 units twice daily as daily regimen -start novolog 5 units TID with meals -low dose corrective algorithm qAC and qHS recommend nurse educator Remainder of patients medical conditions to be managed by primary care team and other invol penny specialists. RTC to see me as an outpatient likely 2-4 weeks I spent 25 minutes with this patient. Greater than 50% of the time (15 min) was spent in co unseling and coordination of patient care as detailed above. Code Status: Full Code Primary Care Physician: No primary care provider on file. Thank you for allowing me to participate in the care of this patient. I will continue to follow with you. Please call if there are any additional questions. Margarita Gonzales MD 02/07/2016 Margarita Mcduffie M D - 02/06/2016 10:14 AM PDT Consult* by Margarita Gonzales MD at 02/06/16 1014 Author: Margarita Gonzales MD Service: (none) Author Type: Physician Filed: 02/06/16 1255 Date of Service: 02/06/16 1014 Status: Signed Review Engineer: Margarita Gonzales MD (Physician) [facility] Service: Endocrinology Initial Consult Note Date of Admission: 02/06/2016 Reason for Consultation: DKA Requesting Physician: Hospitalist History Obtained From: patient, chart review CHIEF COMPLAINT: High sugars HISTORY OF PRESENT ILLNESS The patient is 35 y.o. male with significant past medical history of T1DM with recurrent DK A, Schizophrenia, depression who presents with DKA. Per outside records - pt presented to [facility] after several days of "lying on the cou ch." Pt has recently been discharged from his long-term 2/2 marijuana use. Grandmother has rece ntly . Family members thought pt was simply suffering from depression over the pa st few days. Presented to [facility], found to have pH of 6.01 on ABG and CO2 of 5. Transferred to [facility], pt has now received at least 4L of IVF, with some improvement in lab s and vitals. Currently receiving 4u/hr on insulin drip. Pt sleepy. Nursing staff reports they have spoken with mother. Pt has been in mental health facilities for several years, currently has a transient living situation. Mother reports he has lost 100 pounds in the recent past. I was unable to obtain more details regarding patients diabetes history. unaccompanied REVIEW OF SYSTEMS Review of Systems Unable to perform ROS: Acuity of condition Past Medical History Diagnosis Date Diabetic ketoacidosis without coma associated with type 2 diabetes mellitus (HCC) 2015 Schizophrenia (HCC) 02/06/2016 Attention-deficit hyperactivity disorder, predominantly hyperactive type 02/06/2016 Depression 02/06/2016 Leukocytosis (leucocytosis) 02/06/2016 No past surgical history on file. Allergies Allergen Reactions Fexofenadine Other (See Comments) Unknown Haldol [Haloperidol] Other (See Comments) Unknown Risperidone Other (See Comments) unknown Prescriptions prior to admission Medication Sig Dispense Refill Last Dose aspirin 81 MG EC tablet Take 81 mg by mouth daily with breakfast. 02/05/2016 at 0800 insulin glargine (LANTUS) 100 UNIT/ML injection Inject 9 Units into the skin every morn ing. 02/05/2016 at 0800 insulin glargine (LANTUS) 100 UNIT/ML injection Inject 3 Units into the skin nightly. 02/05/2016 at 2200 insulin lispro, human, (HUMALOG) 100 UNIT/ML injection Inject 1 Units into the skin 3 ( three) times daily before meals. One unit for above 135 blood glucose. For every 25 blood gl ucose above 135 one additional unit. 02/06/2016 at Unknown time Scheduled Medications dextrose 5 % and 0.45 % NaCl Intravenous See Admin Instructions famotidine 20 mg Oral BID Or famotidine 20 mg Intravenous BID heparin (porcine) 5000 unit/0.5mL 5,000 Units Subcutaneous Q8H magnesium sulfate 3 g Intravenous Once [START ON 02/07/2016] pneumococcal 23-valent vaccine 0.5 mL Intramuscular Once Immuniza tion potassium phosphate peripheral line 20 mmol Intravenous Once sodium chloride (bolus) 1,000 mL Intravenous Once Continuous Infusions dextrose dextrose 5 % and 0.45 % NaCl insulin regular (NOVOLIN R) infusion 1 Units/hr (02/06/16 1008) sodium chloride (IV) 1,000 mL/hr (02/06/16 0922) sodium chloride (IV) sodium chloride (IV) PRN Medications acetaminophen OR acetaminophen, dextrose, dextrose, dextrose, glucagon, glucagon, menth ol-cetylpyridinium, morphine OR morphine OR morphine, ondansetron OR ondansetron , polyethylene glycol, sodium chloride (IV), zolpidem No family history on file. History Social History Marital Status: N/A Spouse Name: N/A Number of Children: N/A Years of Education: N/A Occupational History Not on file. Social History Main Topics Smoking status: Not on file Smokeless tobacco: Not on file Alcohol Use: Not on file Drug Use: Not on file Sexual Activity: Not on file Other Topics Concern Not on file Social History Narrative No narrative on file PHYSICAL EXAM Vital Signs: BP 102/63 mmHg | Pulse 100 | Temp(Src) 96.4 F (35.8 C) (Oral) | Resp 22 | Ht 1.765 m (5 ' 9.5") | Wt 55.974 kg (123 lb 6.4 oz) | BMI 17.97 kg/m2 | SpO2 100% Temp: [96.4 F (35.8 C)] 96.4 F (35.8 C) (02/06 0850) BP: (102)/(63) 102/63 mmHg (02/06 0850) Heart Rate: [100] 100 (02/06 0850) Resp: [22] 22 (02/06 0850) SpO2: [100 %] 100 % (02/06 0850) Height: [176.5 cm (5' 9.5")] 176.5 cm (5' 9.5") (02/06 0850) Weight: [55.974 kg (123 lb 6.4 oz)] 55.974 kg (123 lb 6.4 oz) (02/06 0850) BMI (Calculated): [18] 18 (02/06 0850) Physical Exam Constitutional: No distress. HENT: Head: Normocephalic and atraumatic. Right Ear: External ear normal. Left Ear: External ear normal. Nose: Nose normal. Mouth/Throat: Oropharynx is clear and moist. No oropharyngeal exudate. edentulous Eyes: Conjunctivae and EOM are normal. Pupils are equal, round, and reactive to light. Righ t eye exhibits no discharge. Left eye exhibits no discharge. No scleral icterus. Neck: Normal range of motion. Neck supple. No JVD present. No tracheal deviation present. N o thyromegaly present. Thyroid normal size and consistency without nodularity or tenderness to palpation, though d ifficult to palpate with pt lying in bed Cardiovascular: Normal rate, regular rhythm, normal heart sounds and intact distal pulses. Exam reveals no gallop and no friction rub. No murmur heard. Pulmonary/Chest: Effort normal and breath sounds normal. No stridor. No respiratory distres s. He has no wheezes. He has no rales. He exhibits no tenderness. Abdomina/Gl: Soft. Bowel sounds are normal. He exhibits no distension and no mass. There is no tenderness. There is no rebound and no guarding. Musculoskeletal: He exhibits no edema or tenderness. Lymphadenopathy: He has no cervical adenopathy. Skin: Skin is warm and dry. No rash noted. He is not diaphoretic. No erythema. No pallor. Psychiatric: Pt very sleepy - occ opens eyes and will answer questions Nursing note and vitals reviewed. DATA CBC: Lab Results Component Value Date WBC 8.77 02/06/2016 RBC 2.80* 02/06/2016 HGB 9.1* 02/06/2016 HCT 26.7* 02/06/2016 MCV 95.4 02/06/2016 MCH 32.3 02/06/2016 MCHC 33.9 02/06/2016 RDW 47.3 02/06/2016 PLT 190 02/06/2016 MPV 7.2 02/06/2016 DIFFTYPE MANUAL 02/06/2016 CMP: Lab Results Component Value Date NA 149* 02/06/2016 K 2.4* 02/06/2016 CL 122* 02/06/2016 CO2 PENDING 02/06/2016 ANIONGAP 25* 02/06/2016 GLUF 212* 02/06/2016 BUN 15 02/06/2016 CREATININE 0.57* 02/06/2016 BCR 27 02/06/2016 CA PENDING 02/06/2016 EGFR >60 02/06/2016 HgBA1c: No results found for: HGBA1C, LABGLYC PROBLEM LIST Principal Problem: Diabetic ketoacidosis without coma associated with type 1 diabetes mellitus (HCC) Active Problems: Schizophrenia (HCC) Attention-deficit hyperactivity disorder, predominantly hyperactive type Depression Leukocytosis (leucocytosis) Dehydration ASSESSMENT & PLAN DKA: Longstanding T1DM, recurrent DKA. +Significant barriers to optimal diabetes care inclu ding financial and social factors. I have attempted to obtain information regarding patients medical history through second information due to patients AMS -agree with initiating standard DKA protocols for now. I will be happy to assist in the mon itoring and transition to subQ insulin regimen at the appropriate time. -recommend nurse educator Discussed directly with attending hospitalist today and nursing staff. Remainder of patients medical conditions to be managed by primary care team and other invol penny specialists. RTC to see me as an outpatient likely 2-4 weeks I spent 80 minutes with this patient. Greater than 50% of the time (40 min) was spent in co unseling and coordination of patient care as detailed above. Code Status: Full Code Primary Care Physician: No primary care provider on file. Thank you for allowing me to participate in the care of this patient. I will continue to follow with you. Please call if there are any additional questions. Margarita Gonzales MD 02/06/2016 documented in this encounter Plan of Treatment Not on filedocumented as of this encounter Procedures + +--------+ + + + | Procedure Name | Priori | Date/Time | Associated Diagnosis | Comments | | | ty | | | | + +--------+ + + + | POC GLUCOSE | Routin | 02/08/2016 | | Results for this | | | e | 12:20 PM | | procedure are in the | | | | PDT | | results section. | + +--------+ + + + | POC GLUCOSE | Routin | 02/08/2016 | | Results for this | | | e | 5:37 AM | | procedure are in the | | | | PDT | | results section. | + +--------+ + + + | CBC NO DIFFERENTIAL | Routin | 02/08/2016 | | Results for this | | | e | 3:30 AM | | procedure are in the | | | | PDT | | results section. | + +--------+ + + + | PHOSPHORUS | Routin | 02/08/2016 | | Results for this | | | e | 3:30 AM | | procedure are in the | | | | PDT | | results section. | + +--------+ + + + | MAGNESIUM | Routin | 02/08/2016 | | Results for this | | | e | 3:30 AM | | procedure are in the | | | | PDT | | results section. | + +--------+ + + + | COMPREHENSIVE | Routin | 02/08/2016 | | Results for this | | METABOLIC PANEL | e | 3:30 AM | | procedure are in the | | | | PDT | | results section. | + +--------+ + + + | POC GLUCOSE | Routin | 02/07/2016 | | Results for this | | | e | 9:26 PM | | procedure are in the | | | | PDT | | results section. | + +--------+ + + + | PHOSPHORUS | Routin | 02/07/2016 | | Results for this | | | e | 9:03 PM | | procedure are in the | | | | PDT | | results section. | + +--------+ + + + | MAGNESIUM | Routin | 02/07/2016 | | Results for this | | | e | 9:03 PM | | procedure are in the | | | | PDT | | results section. | + +--------+ + + + | BASIC METABOLIC | Routin | 02/07/2016 | | Results for this | | PANEL | e | 9:03 PM | | procedure are in the | | | | PDT | | results section. | + +--------+ + + + | POC GLUCOSE | Routin | 02/07/2016 | | Results for this | | | e | 6:24 PM | | procedure are in the | | | | PDT | | results section. | + +--------+ + + + | PHOSPHORUS | Routin | 02/07/2016 | | Results for this | | | e | 5:54 PM | | procedure are in the | | | | PDT | | results section. | + +--------+ + + + | MAGNESIUM | Routin | 02/07/2016 | | Results for this | | | e | 5:54 PM | | procedure are in the | | | | PDT | | results section. | + +--------+ + + + | BASIC METABOLIC | Routin | 02/07/2016 | | Results for this | | PANEL | e | 5:54 PM | | procedure are in the | | | | PDT | | results section. | + +--------+ + + + | POC GLUCOSE | Routin | 02/07/2016 | | Results for this | | | e | 1:24 PM | | procedure are in the | | | | PDT | | results section. | + +--------+ + + + | PHOSPHORUS | Routin | 02/07/2016 | | Results for this | | | e | 12:45 PM | | procedure are in the | | | | PDT | | results section. | + +--------+ + + + | MAGNESIUM | Routin | 02/07/2016 | | Results for this | | | e | 12:45 PM | | procedure are in the | | | | PDT | | results section. | + +--------+ + + + | BASIC METABOLIC | Routin | 02/07/2016 | | Results for this | | PANEL | e | 12:45 PM | | procedure are in the | | | | PDT | | results section. | + +--------+ + + + | POC GLUCOSE | Routin | 02/07/2016 | | Results for this | | | e | 12:34 PM | | procedure are in the | | | | PDT | | results section. | + +--------+ + + + | POC GLUCOSE | Routin | 02/07/2016 | | Results for this | | | e | 11:25 AM | | procedure are in the | | | | PDT | | results section. | + +--------+ + + + | POC GLUCOSE | Routin | 02/07/2016 | | Results for this | | | e | 10:27 AM | | procedure are in the | | | | PDT | | results section. | + +--------+ + + + | POC GLUCOSE | Routin | 02/07/2016 | | Results for this | | | e | 9:33 AM | | procedure are in the | | | | PDT | | results section. | + +--------+ + + + | PHOSPHORUS | Routin | 02/07/2016 | | Results for this | | | e | 8:54 AM | | procedure are in the | | | | PDT | | results section. | + +--------+ + + + | MAGNESIUM | Routin | 02/07/2016 | | Results for this | | | e | 8:54 AM | | procedure are in the | | | | PDT | | results section. | + +--------+ + + + | BASIC METABOLIC | Routin | 02/07/2016 | | Results for this | | PANEL | e | 8:54 AM | | procedure are in the | | | | PDT | | results section. | + +--------+ + + + | POC GLUCOSE | Routin | 02/07/2016 | | Results for this | | | e | 8:36 AM | | procedure are in the | | | | PDT | | results section. | + +--------+ + + + | POC GLUCOSE | Routin | 02/07/2016 | | Results for this | | | e | 7:31 AM | | procedure are in the | | | | PDT | | results section. | + +--------+ + + + | POC GLUCOSE | Routin | 02/07/2016 | | Results for this | | | e | 6:32 AM | | procedure are in the | | | | PDT | | results section. | + +--------+ + + + | ECG 12 LEAD | Routin | 02/07/2016 | | Results for this | | | e | 6:19 AM | | procedure are in the | | | | PDT | | results section. | + +--------+ + + + | POC GLUCOSE | Routin | 02/07/2016 | | Results for this | | | e | 5:28 AM | | procedure are in the | | | | PDT | | results section. | + +--------+ + + + | EXTERNAL LAB: CBC | Routin | 02/07/2016 | | Results for this | | | e | 4:53 AM | | procedure are in the | | | | PDT | | results section. | + +--------+ + + + | PHOSPHORUS | Routin | 02/07/2016 | | Results for this | | | e | 4:53 AM | | procedure are in the | | | | PDT | | results section. | + +--------+ + + + | MAGNESIUM | Routin | 02/07/2016 | | Results for this | | | e | 4:53 AM | | procedure are in the | | | | PDT | | results section. | + +--------+ + + + | BASIC METABOLIC | Routin | 02/07/2016 | | Results for this | | PANEL | e | 4:53 AM | | procedure are in the | | | | PDT | | results section. | + +--------+ + + + | POC GLUCOSE | Routin | 02/07/2016 | | Results for this | | | e | 4:36 AM | | procedure are in the | | | | PDT | | results section. | + +--------+ + + + | POC GLUCOSE | Routin | 02/07/2016 | | Results for this | | | e | 3:36 AM | | procedure are in the | | | | PDT | | results section. | + +--------+ + + + | POC GLUCOSE | Routin | 02/07/2016 | | Results for this | | | e | 2:33 AM | | procedure are in the | | | | PDT | | results section. | + +--------+ + + + | POC GLUCOSE | Routin | 02/07/2016 | | Results for this | | | e | 1:31 AM | | procedure are in the | | | | PDT | | results section. | + +--------+ + + + | PHOSPHORUS | Routin | 02/07/2016 | | Results for this | | | e | 12:58 AM | | procedure are in the | | | | PDT | | results section. | + +--------+ + + + | MAGNESIUM | Routin | 02/07/2016 | | Results for this | | | e | 12:58 AM | | procedure are in the | | | | PDT | | results section. | + +--------+ + + + | BASIC METABOLIC | Routin | 02/07/2016 | | Results for this | | PANEL | e | 12:58 AM | | procedure are in the | | | | PDT | | results section. | + +--------+ + + + | POC GLUCOSE | Routin | 02/07/2016 | | Results for this | | | e | 12:29 AM | | procedure are in the | | | | PDT | | results section. | + +--------+ + + + | POC GLUCOSE | Routin | 02/06/2016 | | Results for this | | | e | 11:04 PM | | procedure are in the | | | | PDT | | results section. | + +--------+ + + + | POC GLUCOSE | Routin | 02/06/2016 | | Results for this | | | e | 9:58 PM | | procedure are in the | | | | PDT | | results section. | + +--------+ + + + | PHOSPHORUS | Routin | 02/06/2016 | | Results for this | | | e | 9:02 PM | | procedure are in the | | | | PDT | | results section. | + +--------+ + + + | MAGNESIUM | Routin | 02/06/2016 | | Results for this | | | e | 9:02 PM | | procedure are in the | | | | PDT | | results section. | + +--------+ + + + | BASIC METABOLIC | Routin | 02/06/2016 | | Results for this | | PANEL | e | 9:02 PM | | procedure are in the | | | | PDT | | results section. | + +--------+ + + + | POC GLUCOSE | Routin | 02/06/2016 | | Results for this | | | e | 8:53 PM | | procedure are in the | | | | PDT | | results section. | + +--------+ + + + | POC GLUCOSE | Routin | 02/06/2016 | | Results for this | | | e | 7:55 PM | | procedure are in the | | | | PDT | | results section. | + +--------+ + + + | POC GLUCOSE | Routin | 02/06/2016 | | Results for this | | | e | 6:51 PM | | procedure are in the | | | | PDT | | results section. | + +--------+ + + + | POC GLUCOSE | Routin | 02/06/2016 | | Results for this | | | e | 6:00 PM | | procedure are in the | | | | PDT | | results section. | + +--------+ + + + | PHOSPHORUS | Routin | 02/06/2016 | | Results for this | | | e | 5:05 PM | | procedure are in the | | | | PDT | | results section. | + +--------+ + + + | MAGNESIUM | Routin | 02/06/2016 | | Results for this | | | e | 5:05 PM | | procedure are in the | | | | PDT | | results section. | + +--------+ + + + | PH, VENOUS | Routin | 02/06/2016 | | Results for this | | | e | 5:05 PM | | procedure are in the | | | | PDT | | results section. | + +--------+ + + + | BASIC METABOLIC | Routin | 02/06/2016 | | Results for this | | PANEL | e | 5:05 PM | | procedure are in the | | | | PDT | | results section. | + +--------+ + + + | POC GLUCOSE | Routin | 02/06/2016 | | Results for this | | | e | 4:58 PM | | procedure are in the | | | | PDT | | results section. | + +--------+ + + + | POC GLUCOSE | Routin | 02/06/2016 | | Results for this | | | e | 3:27 PM | | procedure are in the | | | | PDT | | results section. | + +--------+ + + + | POC GLUCOSE | Routin | 02/06/2016 | | Results for this | | | e | 2:24 PM | | procedure are in the | | | | PDT | | results section. | + +--------+ + + + | POC GLUCOSE | Routin | 02/06/2016 | | Results for this | | | e | 1:15 PM | | procedure are in the | | | | PDT | | results section. | + +--------+ + + + | PHOSPHORUS | Routin | 02/06/2016 | | Results for this | | | e | 12:47 PM | | procedure are in the | | | | PDT | | results section. | + +--------+ + + + | MAGNESIUM | Routin | 02/06/2016 | | Results for this | | | e | 12:47 PM | | procedure are in the | | | | PDT | | results section. | + +--------+ + + + | PH, VENOUS | Routin | 02/06/2016 | | Results for this | | | e | 12:47 PM | | procedure are in the | | | | PDT | | results section. | + +--------+ + + + | BASIC METABOLIC | Routin | 02/06/2016 | | Results for this | | PANEL | e | 12:47 PM | | procedure are in the | | | | PDT | | results section. | + +--------+ + + + | POC GLUCOSE | Routin | 02/06/2016 | | Results for this | | | e | 12:02 PM | | procedure are in the | | | | PDT | | results section. | + +--------+ + + + | POC GLUCOSE | Routin | 02/06/2016 | | Results for this | | | e | 11:20 AM | | procedure are in the | | | | PDT | | results section. | + +--------+ + + + | PHOSPHORUS | Routin | 02/06/2016 | | Results for this | | | e | 10:40 AM | | procedure are in the | | | | PDT | | results section. | + +--------+ + + + | MAGNESIUM | Routin | 02/06/2016 | | Results for this | | | e | 10:40 AM | | procedure are in the | | | | PDT | | results section. | + +--------+ + + + | BASIC METABOLIC | Routin | 02/06/2016 | | Results for this | | PANEL | e | 10:40 AM | | procedure are in the | | | | PDT | | results section. | + +--------+ + + + | POC GLUCOSE | Routin | 02/06/2016 | | Results for this | | | e | 10:36 AM | | procedure are in the | | | | PDT | | results section. | + +--------+ + + + | POC GLUCOSE | Routin | 02/06/2016 | | Results for this | | | e | 10:04 AM | | procedure are in the | | | | PDT | | results section. | + +--------+ + + + | EXTERNAL LAB: CBC | Routin | 02/06/2016 | | Results for this | | | e | 9:26 AM | | procedure are in the | | | | PDT | | results section. | + +--------+ + + + | PHOSPHORUS | Routin | 02/06/2016 | | Results for this | | | e | 9:26 AM | | procedure are in the | | | | PDT | | results section. | + +--------+ + + + | MAGNESIUM | Routin | 02/06/2016 | | Results for this | | | e | 9:26 AM | | procedure are in the | | | | PDT | | results section. | + +--------+ + + + | HEMOGLOBIN A1C | Routin | 02/06/2016 | | Results for this | | | e | 9:26 AM | | procedure are in the | | | | PDT | | results section. | + +--------+ + + + | KETONES, BLOOD | Routin | 02/06/2016 | | Results for this | | | e | 9:26 AM | | procedure are in the | | | | PDT | | results section. | + +--------+ + + + | BASIC METABOLIC | Routin | 02/06/2016 | | Results for this | | PANEL | e | 9:26 AM | | procedure are in the | | | | PDT | | results section. | + +--------+ + + + | POC GLUCOSE | Routin | 02/06/2016 | | Results for this | | | e | 8:45 AM | | procedure are in the | | | | PDT | | results section. | + +--------+ + + + documented in this encounter Results POC Glucose (02/08/2016 12:20 PM PDT) + + + + + + | Component | Value | Ref Range | Performed | Pathologist | | | | | At | Signature | + + + + + + | Glucose, | 185 (H)Comment: Testing | 65 - 99 mg/dL | EXTERNAL | | | Fingerstick | performed at [facility];[address] | | LAB | | | | [address];[place] | | | | | | [address] | | | | + + + + + + + + | Specimen | + + | | + + + +---------+ + + | Performing | Address | City/State/Zipcode | Phone Number | | Organization | | | | + +---------+ + + | EXTERNAL LAB | | | | + +---------+ + + POC Glucose (02/08/2016 5:37 AM PDT) + + + + + + | Component | Value | Ref Range | Performed | Pathologist | | | | | At | Signature | + + + + + + | Glucose, | 284 (H)Comment: Testing | 65 - 99 mg/dL | EXTERNAL | | | Fingerstick | performed at [facility];[address] | | LAB | | | | [address];[place] | | | | | | [address] | | | | + + + + + + + + | Specimen | + + | | + + + +---------+ + + | Performing | Address | City/State/Zipcode | Phone Number | | Organization | | | | + +---------+ + + | EXTERNAL LAB | | | | + +---------+ + + CBC no Differential (02/08/2016 3:30 AM PDT) + + + + + + | Component | Value | Ref Range | Performed | Pathologist | | | | | At | Signature | + + + + + + | WBC | 6.22Comment: Testing | 3.80 - 11.00 | EXTERNAL | | | | performed at [facility], [address] | K/uL | LAB | | | | [address], | | | | | | [place] [address] | | | | + + + + + + | Non- | 3.53 (L)Comment: Testing | 4.20 - 5.70 | EXTERNAL | | | Red Blood | performed at [facility], [address] | M/uL | LAB | | | Cells | [address], | | | | | Counted | [place] [address] | | | | + + + + + + | Hemoglobin | 11.5 (L)Comment: Testing | 13.2 - 17.0 | EXTERNAL | | | | performed at [facility], [address] | g/dL | LAB | | | | [address], | | | | | | [place] [address] | | | | + + + + + + | Hematocrit, | 32.3 (L)Comment: Testing | 39.0 - 50.0 % | EXTERNAL | | | POC | performed at [facility], [address] | | LAB | | | | [address], | | | | | | [place] [address] | | | | + + + + + + | MCV | 91.6Comment: Testing | 80.0 - 100.0 fl | EXTERNAL | | | | performed at [facility], [address] | | LAB | | | | [address], | | | | | | [place] [address] | | | | + + + + + + | MCH | 32.6Comment: Testing | 27.0 - 34.0 pg | EXTERNAL | | | | performed at [facility], [address] | | LAB | | | | [address], | | | | | | [place] [address] | | | | + + + + + + | MCHC | 35.6 (H)Comment: Testing | 32.0 - 35.5 | EXTERNAL | | | | performed at [facility], [address] | g/dL | LAB | | | | [address], | | | | | | [place] [address] | | | | + + + + + + | RDW-CV | 45.1Comment: Testing | 37 - 53 fl | EXTERNAL | | | | performed at [facility], [address] | | LAB | | | | [address], | | | | | | [place] [address] | | | | + + + + + + | Platelet | 218Comment: Testing | 150 - 400 K/uL | EXTERNAL | | | Count | performed at [facility], [address] | | LAB | | | Plasma | [address], | | | | | | [place] [address] | | | | + + + + + + | MPV | 7.6Comment: Testing | fl | EXTERNAL | | | | performed at [facility], [address] | | LAB | | | | [address], | | | | | | [place] [address] | | | | + + + + + + + + | Specimen | + + | | + + + +---------+ + + | Performing | Address | City/State/Zipcode | Phone Number | | Organization | | | | + +---------+ + + | EXTERNAL LAB | | | | + +---------+ + + Phosphorus (02/08/2016 3:30 AM PDT) + + + + + + | Component | Value | Ref Range | Performed | Pathologist | | | | | At | Signature | + + + + + + | PHOSPHORUS | 1.8 (L)Comment: Testing | 2.3 - 4.8 mg/dL | EXTERNAL | | | | performed at [facility], [address] | | LAB | | | | [address], | | | | | | [place] [address] | | | | + + + + + + + + | Specimen | + + | Blood specimen | | (specimen) | + + + +---------+ + + | Performing | Address | City/State/Zipcode | Phone Number | | Organization | | | | + +---------+ + + | EXTERNAL LAB | | | | + +---------+ + + Magnesium (02/08/2016 3:30 AM PDT) + + + + + + | Component | Value | Ref Range | Performed | Pathologist | | | | | At | Signature | + + + + + + | Magnesium | 1.7Comment: Testing | 1.7 - 2.4 mg/dL | EXTERNAL | | | | performed at [facility], [address] | | LAB | | | | [address], | | | | | | [place] [address] | | | | + + + + + + + + | Specimen | + + | Blood specimen | | (specimen) | + + + +---------+ + + | Performing | Address | City/State/Zipcode | Phone Number | | Organization | | | | + +---------+ + + | EXTERNAL LAB | | | | + +---------+ + + Comprehensive Metabolic Panel (02/08/2016 3:30 AM PDT) + + + + + + | Component | Value | Ref Range | Performed | Pathologist | | | | | At | Signature | + + + + + + | Na | 133 (L)Comment: Testing | 135 - 145 | EXTERNAL | | | | performed at [facility], [address] | mmol/L | LAB | | | | [address], | | | | | | [place] [address] | | | | + + + + + + | K | 3.2 (L)Comment: Testing | 3.5 - 4.9 | EXTERNAL | | | | performed at [facility], [address] | mmol/L | LAB | | | | [address], | | | | | | [place] [address] | | | | + + + + + + | Cl | 100Comment: Testing | 99 - 109 mmol/L | EXTERNAL | | | | performed at [facility], [address] | | LAB | | | | [address], | | | | | | [place] [address] | | | | + + + + + + | CO2 | 22 (L)Comment: Testing | 23 - 32 mmol/L | EXTERNAL | | | | performed at [facility], [address] | | LAB | | | | [address], | | | | | | [place] [address] | | | | + + + + + + | Anion Gap | 14Comment: Testing | 5 - 20 mmol/L | EXTERNAL | | | | performed at [facility], [address] | | LAB | | | | [address], | | | | | | [place] [address] | | | | + + + + + + | Glucose, | 282 (H)Comment: Testing | 65 - 99 mg/dL | EXTERNAL | | | Fasting | performed at [facility], [address] | | LAB | | | | [address], | | | | | | [place] [address] | | | | + + + + + + | BUN | 15Comment: Testing | 8 - 25 mg/dL | EXTERNAL | | | | performed at [facility], [address] | | LAB | | | | [address], | | | | | | [place] [address] | | | | + + + + + + | Creatinine | 0.8Comment: Testing | 0.70 - 1.30 | EXTERNAL | | | | performed at [facility], [address] | mg/dL | LAB | | | | [address], | | | | | | [place] [address] | | | | + + + + + + | BUN/Creatin | 19Comment: Testing | | EXTERNAL | | | ine Ratio | performed at [facility], [address] | | LAB | | | | [address], | | | | | | [place] [address] | | | | + + + + + + | Calcium | 7.7 (L)Comment: Testing | 8.5 - 10.5 | EXTERNAL | | | | performed at [facility], [address] | mg/dL | LAB | | | | [address], | | | | | | [place] [address] | | | | + + + + + + | Protein, | 4.8 (L)Comment: Testing | 6.3 - 8.2 g/dL | EXTERNAL | | | Total | performed at [facility], [address] | | LAB | | | | [address], | | | | | | [place] [address] | | | | + + + + + + | Albumin | 2.3 (L)Comment: Testing | 3.6 - 5.0 g/dL | EXTERNAL | | | | performed at [facility], [address] | | LAB | | | | [address], | | | | | | [place] [address] | | | | + + + + + + | Globulin | 2.5Comment: Testing | 1.3 - 4.9 g/dL | EXTERNAL | | | | performed at [facility], [address] | | LAB | | | | [address], | | | | | | [place] [address] | | | | + + + + + + | A/G Ratio | 0.9 (L)Comment: Testing | 1.0 - 2.4 | EXTERNAL | | | | performed at [facility], [address] | | LAB | | | | [address], | | | | | | [place] [address] | | | | + + + + + + | Bilirubin | 0.2Comment: Testing | 0.1 - 1.5 mg/dL | EXTERNAL | | | Total | performed at [facility], [address] | | LAB | | | | [address], | | | | | | [place] [address] | | | | + + + + + + | ALP, | 87Comment: Testing | 35 - 115 U/L | EXTERNAL | | | External | performed at [facility], [address] | | LAB | | | | [address], | | | | | | [place] [address] | | | | + + + + + + | AST | 15Comment: Testing | 10 - 45 U/L | EXTERNAL | | | | performed at [facility], [address] | | LAB | | | | [address], | | | | | | [place] [address] | | | | + + + + + + | ALT | 17Comment: Testing | 10 - 65 U/L | EXTERNAL | | | | performed at [facility], [address] | | LAB | | | | [address], | | | | | | [place] [address] | | | | + + + + + + | Estimated | >60Comment: GFR <60: | mL/min/1.73m2 | EXTERNAL | | | GFR | CHRONIC KIDNEY DISEASE, | | LAB | | | | IF FOUND OVER A 3 MONTH | | | | | | PERIOD.GFR <15: KIDNEY | | | | | | FAILURE.FOR | | | | | | AMERICANS, MULTIPLY THE | | | | | | CALCULATED GFR BY | | | | | | 1.210.Testing performed | | | | | | at [facility], [address] | | | | | | [address], | | | | | | [place] [address] | | | | + + + + + + + + | Specimen | + + | Blood specimen | | (specimen) | + + + +---------+ + + | Performing | Address | City/State/Zipcode | Phone Number | | Organization | | | | + +---------+ + + | EXTERNAL LAB | | | | + +---------+ + + POC Glucose (02/07/2016 9:26 PM PDT) + + + + + + | Component | Value | Ref Range | Performed | Pathologist | | | | | At | Signature | + + + + + + | Glucose, | 271 (H)Comment: Testing | 65 - 99 mg/dL | EXTERNAL | | | Fingerstick | performed at [facility];[address] | | LAB | | | | [address];[place], [place] | | | | | | [address] | | | | + + + + + + + + | Specimen | + + | | + + + +---------+ + + | Performing | Address | City/State/Zipcode | Phone Number | | Organization | | | | + +---------+ + + | EXTERNAL LAB | | | | + +---------+ + + Phosphorus (02/07/2016 9:03 PM PDT) + + + + + + | Component | Value | Ref Range | Performed | Pathologist | | | | | At | Signature | + + + + + + | PHOSPHORUS | 1.0 (L)Comment: Testing | 2.3 - 4.8 mg/dL | EXTERNAL | | | | performed at [facility] | | LAB | | | | [address] [facility];[place], [place] | | | | | | [address] | | | | + + + + + + + + | Specimen | + + | Blood specimen | | (specimen) | + + + +---------+ + + | Performing | Address | City/State/Zipcode | Phone Number | | Organization | | | | + +---------+ + + | EXTERNAL LAB | | | | + +---------+ + + Magnesium (02/07/2016 9:03 PM PDT) + + + + + + | Component | Value | Ref Range | Performed | Pathologist | | | | | At | Signature | + + + + + + | Magnesium | 2.1Comment: Testing | 1.7 - 2.4 mg/dL | EXTERNAL | | | | performed at [facility];[address] | | LAB | | | | [address];[place] | | | | | | [address] | | | | + + + + + + + + | Specimen | + + | Blood specimen | | (specimen) | + + + +---------+ + + | Performing | Address | City/State/Zipcode | Phone Number | | Organization | | | | + +---------+ + + | EXTERNAL LAB | | | | + +---------+ + + Basic Metabolic Panel (02/07/2016 9:03 PM PDT) + + + + + + | Component | Value | Ref Range | Performed | Pathologist | | | | | At | Signature | + + + + + + | Na | 130 (L)Comment: Testing | 135 - 145 | EXTERNAL | | | | performed at [facility];[address] | mmol/L | LAB | | | | [address];[place] | | | | | | [address] | | | | + + + + + + | K | 3.8Comment: Testing | 3.5 - 4.9 | EXTERNAL | | | | performed at [facility];[address] | mmol/L | LAB | | | | [address];[place] | | | | | | [address] | | | | + + + + + + | Cl | 99Comment: Testing | 99 - 109 mmol/L | EXTERNAL | | | | performed at [facility];[address] | | LAB | | | | [address];[place] | | | | | | [address] | | | | + + + + + + | CO2 | 21 (L)Comment: Testing | 23 - 32 mmol/L | EXTERNAL | | | | performed at [facility];[address] | | LAB | | | | [address];[place] | | | | | | [address] | | | | + + + + + + | Anion Gap | 13Comment: Testing | 5 - 20 mmol/L | EXTERNAL | | | | performed at [facility];[address] | | LAB | | | | [address];[place] | | | | | | [address] | | | | + + + + + + | Glucose, | 241 (H)Comment: Testing | 65 - 99 mg/dL | EXTERNAL | | | Fasting | performed at [facility];[address] | | LAB | | | | [address];[place] | | | | | | [address] | | | | + + + + + + | BUN | 10Comment: Testing | 8 - 25 mg/dL | EXTERNAL | | | | performed at [facility];[address] | | LAB | | | | [address];[place] | | | | | | [address] | | | | + + + + + + | Creatinine | 0.95Comment: Testing | 0.70 - 1.30 | EXTERNAL | | | | performed at [facility];[address] | mg/dL | LAB | | | | [address];[place] | | | | | | [address] | | | | + + + + + + | BUN/Creatin | 10Comment: Testing | | EXTERNAL | | | ine Ratio | performed at [facility];[address] | | LAB | | | | [address];[place] | | | | | | [address] | | | | + + + + + + | Calcium | 7.9 (L)Comment: Testing | 8.5 - 10.5 | EXTERNAL | | | | performed at [facility];[address] | mg/dL | LAB | | | | [address];[place] | | | | | | [address] | | | | + + + + + + | Estimated | >60Comment: GFR <60: | mL/min/1.73m2 | EXTERNAL | | | GFR | CHRONIC KIDNEY DISEASE, | | LAB | | | | IF FOUND OVER A 3 MONTH | | | | | | PERIOD.GFR <15: KIDNEY | | | | | | FAILURE.FOR | | | | | | AMERICANS, MULTIPLY THE | | | | | | CALCULATED GFR BY | | | | | | 1.210.Testing performed | | | | | | at [facility];[address] [place] [address] | | | | | | [facility];[place] [address] | | | | + + + + + + + + | Specimen | + + | Blood specimen | | (specimen) | + + + +---------+ + + | Performing | Address | City/State/Zipcode | Phone Number | | Organization | | | | + +---------+ + + | EXTERNAL LAB | | | | + +---------+ + + POC Glucose (02/07/2016 6:24 PM PDT) + + + + + + | Component | Value | Ref Range | Performed | Pathologist | | | | | At | Signature | + + + + + + | Glucose, | 298 (H)Comment: Testing | 65 - 99 mg/dL | EXTERNAL | | | Fingerstick | performed at [facility];[address] | | LAB | | | | [address];[place], [place] | | | | | | [address] | | | | + + + + + + + + | Specimen | + + | | + + + +---------+ + + | Performing | Address | City/State/Zipcode | Phone Number | | Organization | | | | + +---------+ + + | EXTERNAL LAB | | | | + +---------+ + + Phosphorus (02/07/2016 5:54 PM PDT) + + + + + + | Component | Value | Ref Range | Performed | Pathologist | | | | | At | Signature | + + + + + + | PHOSPHORUS | 1.4 (L)Comment: Testing | 2.3 - 4.8 mg/dL | EXTERNAL | | | | performed at [facility];[address] | | LAB | | | | [address];[place] | | | | | | [address] | | | | + + + + + + + + | Specimen | + + | Blood specimen | | (specimen) | + + + +---------+ + + | Performing | Address | City/State/Zipcode | Phone Number | | Organization | | | | + +---------+ + + | EXTERNAL LAB | | | | + +---------+ + + Magnesium (02/07/2016 5:54 PM PDT) + + + + + + | Component | Value | Ref Range | Performed | Pathologist | | | | | At | Signature | + + + + + + | Magnesium | 2.1Comment: SLT | 1.7 - 2.4 mg/dL | EXTERNAL | | | | HEMOLYSISTesting | | LAB | | | | performed at [facility] [place] | | | | | [address];[place] | | | | | | [id number] | | | | + + + + + + + + | Specimen | + + | Blood specimen | | (specimen) | + + + +---------+ + + | Performing | Address | City/State/Zipcode | Phone Number | | Organization | | | | + +---------+ + + | EXTERNAL LAB | | | | + +---------+ + + Basic Metabolic Panel (02/07/2016 5:54 PM PDT) + + + + + + | Component | Value | Ref Range | Performed | Pathologist | | | | | At | Signature | + + + + + + | Na | 130 (L)Comment: Testing | 135 - 145 | EXTERNAL | | | | performed at [facility] [place];[address] | mmol/L | LAB | | | | [address];[place] | | | | | | [address] | | | | + + + + + + | K | 3.8Comment: SLT | 3.5 - 4.9 | EXTERNAL | | | | HEMOLYSISTesting | mmol/L | LAB | | | | performed at [facility] [place];[address] | | | | | [address];[place] | | | | | | [address] | | | | + + + + + + | Cl | 102Comment: Testing | 99 - 109 mmol/L | EXTERNAL | | | | performed at [facility] [place];[address] | | LAB | | | | [address];[place] | | | | | | [address] | | | | + + + + + + | CO2 | 20 (L)Comment: Testing | 23 - 32 mmol/L | EXTERNAL | | | | performed at [facility] [place];[address] | | LAB | | | | [address];[place] | | | | | | [address] | | | | + + + + + + | Anion Gap | 12Comment: Testing | 5 - 20 mmol/L | EXTERNAL | | | | performed at [facility] [place];[address] | | LAB | | | | [address];[place] | | | | | | [address] | | | | + + + + + + | Glucose, | 250 (H)Comment: Testing | 65 - 99 mg/dL | EXTERNAL | | | Fasting | performed at [facility] [place];[address] | | LAB | | | | [address];[place] | | | | | | [address] | | | | + + + + + + | BUN | 8Comment: Testing | 8 - 25 mg/dL | EXTERNAL | | | | performed at [facility];[address] | | LAB | | | | [address];[place] | | | | | | [address] | | | | + + + + + + | Creatinine | 0.83Comment: Testing | 0.70 - 1.30 | EXTERNAL | | | | performed at [facility];888 | mg/dL | LAB | | | | [address];[place] | | | | | | [address] | | | | + + + + + + | BUN/Creatin | 10Comment: Testing | | EXTERNAL | | | ine Ratio | performed at [facility];[address] | | LAB | | | | [address];[place] | | | | | | [address] | | | | + + + + + + | Calcium | 7.8 (L)Comment: Testing | 8.5 - 10.5 | EXTERNAL | | | | performed at [facility];888 | mg/dL | LAB | | | | [address];[place] | | | | | | [address] | | | | + + + + + + | Estimated | >60Comment: GFR <60: | mL/min/1.73m2 | EXTERNAL | | | GFR | CHRONIC KIDNEY DISEASE, | | LAB | | | | IF FOUND OVER A 3 MONTH | | | | | | PERIOD.GFR <15: KIDNEY | | | | | | FAILURE.FOR | | | | | | AMERICANS, MULTIPLY THE | | | | | | CALCULATED GFR BY | | | | | | 1.210.Testing performed | | | | | | at [facility];[address] [place] [address] | | | | | | [facility];[place] [address] | | | | + + + + + + + + | Specimen | + + | Blood specimen | | (specimen) | + + + +---------+ + + | Performing | Address | City/State/Zipcode | Phone Number | | Organization | | | | + +---------+ + + | EXTERNAL LAB | | | | + +---------+ + + POC Glucose (02/07/2016 1:24 PM PDT) + + + + + + | Component | Value | Ref Range | Performed | Pathologist | | | | | At | Signature | + + + + + + | Glucose, | 390 (H)Comment: Testing | 65 - 99 mg/dL | EXTERNAL | | | Fingerstick | performed at [facility];[address] | | LAB | | | | [address];[place] | | | | | | [address] | | | | + + + + + + + + | Specimen | + + | | + + + +---------+ + + | Performing | Address | City/State/Zipcode | Phone Number | | Organization | | | | + +---------+ + + | EXTERNAL LAB | | | | + +---------+ + + Phosphorus (02/07/2016 12:45 PM PDT) + + + + + + | Component | Value | Ref Range | Performed | Pathologist | | | | | At | Signature | + + + + + + | PHOSPHORUS | 2.2 (L)Comment: Testing | 2.3 - 4.8 mg/dL | EXTERNAL | | | | performed at [facility] | | LAB | | | | [address];[place] | | | | | | [address] | | | | + + + + + + + + | Specimen | + + | Blood specimen | | (specimen) | + + + +---------+ + + | Performing | Address | City/State/Zipcode | Phone Number | | Organization | | | | + +---------+ + + | EXTERNAL LAB | | | | + +---------+ + + Magnesium (02/07/2016 12:45 PM PDT) + + + + + + | Component | Value | Ref Range | Performed | Pathologist | | | | | At | Signature | + + + + + + | Magnesium | 2.1Comment: Testing | 1.7 - 2.4 mg/dL | EXTERNAL | | | | performed at [facility] | | LAB | | | | [facility];[place], [place] | | | | | | [address] | | | | + + + + + + + + | Specimen | + + | Blood specimen | | (specimen) | + + + +---------+ + + | Performing | Address | City/State/Zipcode | Phone Number | | Organization | | | | + +---------+ + + | EXTERNAL LAB | | | | + +---------+ + + Basic Metabolic Panel (02/07/2016 12:45 PM PDT) + + + + + + | Component | Value | Ref Range | Performed | Pathologist | | | | | At | Signature | + + + + + + | Na | 133 (L)Comment: Testing | 135 - 145 | EXTERNAL | | | | performed at [facility];888 | mmol/L | LAB | | | | [address];[place] | | | | | | [address] | | | | + + + + + + | K | 3.3 (L)Comment: Testing | 3.5 - 4.9 | EXTERNAL | | | | performed at [facility];888 | mmol/L | LAB | | | | [address];[place] | | | | | | [address] | | | | + + + + + + | Cl | 106Comment: Testing | 99 - 109 mmol/L | EXTERNAL | | | | performed at [facility];[address] | | LAB | | | | [address];[place] | | | | | | [address] | | | | + + + + + + | CO2 | 16 (L)Comment: Testing | 23 - 32 mmol/L | EXTERNAL | | | | performed at [facility];[address] | | LAB | | | | [address];[place] | | | | | | [address] | | | | + + + + + + | Anion Gap | 14Comment: Testing | 5 - 20 mmol/L | EXTERNAL | | | | performed at [facility];[address] | | LAB | | | | [address];[place] | | | | | | [address] | | | | + + + + + + | Glucose, | 340 (H)Comment: Testing | 65 - 99 mg/dL | EXTERNAL | | | Fasting | performed at [facility];[address] | | LAB | | | | [address];[place] | | | | | | [address] | | | | + + + + + + | BUN | 7 (L)Comment: Testing | 8 - 25 mg/dL | EXTERNAL | | | | performed at [facility];[address] | | LAB | | | | [address];[place] | | | | | | [address] | | | | + + + + + + | Creatinine | 0.70Comment: Testing | 0.70 - 1.30 | EXTERNAL | | | | performed at [facility];[address] | mg/dL | LAB | | | | [address];[place] | | | | | | [address] | | | | + + + + + + | BUN/Creatin | 10Comment: Testing | | EXTERNAL | | | ine Ratio | performed at [facility];[address] | | LAB | | | | [address];[place] | | | | | | [address] | | | | + + + + + + | Calcium | 6.9 (L)Comment: Testing | 8.5 - 10.5 | EXTERNAL | | | | performed at [facility];888 | mg/dL | LAB | | | | [address];[place] | | | | | | [address] | | | | + + + + + + | Estimated | >60Comment: GFR <60: | mL/min/1.73m2 | EXTERNAL | | | GFR | CHRONIC KIDNEY DISEASE, | | LAB | | | | IF FOUND OVER A 3 MONTH | | | | | | PERIOD.GFR <15: KIDNEY | | | | | | FAILURE.FOR | | | | | | AMERICANS, MULTIPLY THE | | | | | | CALCULATED GFR BY | | | | | | 1.210.Testing performed | | | | | | at [facility];[address] | [address];[place] [address] | | | | + + + + + + + + | Specimen | + + | Blood specimen | | (specimen) | + + + +---------+ + + | Performing | Address | City/State/Zipcode | Phone Number | | Organization | | | | + +---------+ + + | EXTERNAL LAB | | | | + +---------+ + + POC Glucose (02/07/2016 12:34 PM PDT) + + + + + + | Component | Value | Ref Range | Performed | Pathologist | | | | | At | Signature | + + + + + + | Glucose, | 353 (H)Comment: Testing | 65 - 99 mg/dL | EXTERNAL | | | Fingerstick | performed at [facility];[address] | | LAB | | | | [address];[place] | | | | | | [address] | | | | + + + + + + + + | Specimen | + + | | + + + +---------+ + + | Performing | Address | City/State/Zipcode | Phone Number | | Organization | | | | + +---------+ + + | EXTERNAL LAB | | | | + +---------+ + + POC Glucose (02/07/2016 11:25 AM PDT) + + + + + + | Component | Value | Ref Range | Performed | Pathologist | | | | | At | Signature | + + + + + + | Glucose, | 316 (H)Comment: Testing | 65 - 99 mg/dL | EXTERNAL | | | Fingerstick | performed at [facility];[address] | | LAB | | | | [address];[place] | | | | | | [address] | | | | + + + + + + + + | Specimen | + + | | + + + +---------+ + + | Performing | Address | City/State/Zipcode | Phone Number | | Organization | | | | + +---------+ + + | EXTERNAL LAB | | | | + +---------+ + + POC Glucose (02/07/2016 10:27 AM PDT) + + + + + + | Component | Value | Ref Range | Performed | Pathologist | | | | | At | Signature | + + + + + + | Glucose, | 196 (H)Comment: Testing | 65 - 99 mg/dL | EXTERNAL | | | Fingerstick | performed at [facility];[address] | | LAB | | | | [address];[place] | | | | | | [address] | | | | + + + + + + + + | Specimen | + + | | + + + +---------+ + + | Performing | Address | City/State/Zipcode | Phone Number | | Organization | | | | + +---------+ + + | EXTERNAL LAB | | | | + +---------+ + + POC Glucose (02/07/2016 9:33 AM PDT) + + + + + + | Component | Value | Ref Range | Performed | Pathologist | | | | | At | Signature | + + + + + + | Glucose, | 198 (H)Comment: Testing | 65 - 99 mg/dL | EXTERNAL | | | Fingerstick | performed at [facility];[address] | | LAB | | | | [address];[place], [place] | | | | | | [address] | | | | + + + + + + + + | Specimen | + + | | + + + +---------+ + + | Performing | Address | City/State/Zipcode | Phone Number | | Organization | | | | + +---------+ + + | EXTERNAL LAB | | | | + +---------+ + + Phosphorus (02/07/2016 8:54 AM PDT) + + + + + + | Component | Value | Ref Range | Performed | Pathologist | | | | | At | Signature | + + + + + + | PHOSPHORUS | 1.6 (L)Comment: Testing | 2.3 - 4.8 mg/dL | EXTERNAL | | | | performed at [facility];8 | | LAB | | | | [address];[place], [place] | | | | | | [address] | | | | + + + + + + + + | Specimen | + + | Blood specimen | | (specimen) | + + + +---------+ + + | Performing | Address | City/State/Zipcode | Phone Number | | Organization | | | | + +---------+ + + | EXTERNAL LAB | | | | + +---------+ + + Magnesium (02/07/2016 8:54 AM PDT) + + + + + + | Component | Value | Ref Range | Performed | Pathologist | | | | | At | Signature | + + + + + + | Magnesium | 2.0Comment: Testing | 1.7 - 2.4 mg/dL | EXTERNAL | | | | performed at [facility];[address] | | LAB | | | | [address];[place], [place] | | | | | | [address] | | | | + + + + + + + + | Specimen | + + | Blood specimen | | (specimen) | + + + +---------+ + + | Performing | Address | City/State/Zipcode | Phone Number | | Organization | | | | + +---------+ + + | EXTERNAL LAB | | | | + +---------+ + + Basic Metabolic Panel (02/07/2016 8:54 AM PDT) + + + + + + | Component | Value | Ref Range | Performed | Pathologist | | | | | At | Signature | + + + + + + | Na | 133 (L)Comment: Testing | 135 - 145 | EXTERNAL | | | | performed at [facility];[address] | mmol/L | LAB | | | | [address];[place] | | | | | | [address] | | | | + + + + + + | K | 3.1 (L)Comment: Testing | 3.5 - 4.9 | EXTERNAL | | | | performed at [facility];888 | mmol/L | LAB | | | | [address];[place] | | | | | | [address] | | | | + + + + + + | Cl | 107Comment: Testing | 99 - 109 mmol/L | EXTERNAL | | | | performed at [facility];[address] | | LAB | | | | [address];[place] | | | | | | [address] | | | | + + + + + + | CO2 | 16 (L)Comment: Testing | 23 - 32 mmol/L | EXTERNAL | | | | performed at [facility];[address] | | LAB | | | | [address];[place] | | | | | | [address] | | | | + + + + + + | Anion Gap | 13Comment: Testing | 5 - 20 mmol/L | EXTERNAL | | | | performed at [facility];[address] | | LAB | | | | [address];[place] | | | | | | [address] | | | | + + + + + + | Glucose, | 173 (H)Comment: Testing | 65 - 99 mg/dL | EXTERNAL | | | Fasting | performed at [facility];[address] | | LAB | | | | [address];[place] | | | | | | [address] | | | | + + + + + + | BUN | 7 (L)Comment: Testing | 8 - 25 mg/dL | EXTERNAL | | | | performed at [facility];[address] | | LAB | | | | [address];[place] | | | | | | [address] | | | | + + + + + + | Creatinine | 0.63 (L)Comment: Testing | 0.70 - 1.30 | EXTERNAL | | | | performed at [facility];[address] | mg/dL | LAB | | | | [address];[place] | | | | | | [address] | | | | + + + + + + | BUN/Creatin | 11Comment: Testing | | EXTERNAL | | | ine Ratio | performed at [facility];[address] | | LAB | | | | [address];[place] | | | | | | [address] | | | | + + + + + + | Calcium | 7.2 (L)Comment: Testing | 8.5 - 10.5 | EXTERNAL | | | | performed at [facility];[address] | mg/dL | LAB | | | | [address];[place], [place] | | | | | | [address] | | | | + + + + + + | Estimated | >60Comment: GFR <60: | mL/min/1.73m2 | EXTERNAL | | | GFR | CHRONIC KIDNEY DISEASE, | | LAB | | | | IF FOUND OVER A 3 MONTH | | | | | | PERIOD.GFR <15: KIDNEY | | | | | | FAILURE.FOR | | | | | | AMERICANS, MULTIPLY THE | | | | | | CALCULATED GFR BY | | | | | | 1.210.Testing performed | | | | | | at [facility];[address];[place] [address] | | | | + + + + + + + + | Specimen | + + | Blood specimen | | (specimen) | + + + +---------+ + + | Performing | Address | City/State/Zipcode | Phone Number | | Organization | | | | + +---------+ + + | EXTERNAL LAB | | | | + +---------+ + + POC Glucose (02/07/2016 8:36 AM PDT) + + + + + + | Component | Value | Ref Range | Performed | Pathologist | | | | | At | Signature | + + + + + + | Glucose, | 187 (H)Comment: Testing | 65 - 99 mg/dL | EXTERNAL | | | Fingerstick | performed at [facility];8 | | LAB | | | | [address];[place] | | | | | | [address] | | | | + + + + + + + + | Specimen | + + | | + + + +---------+ + + | Performing | Address | City/State/Zipcode | Phone Number | | Organization | | | | + +---------+ + + | EXTERNAL LAB | | | | + +---------+ + + POC Glucose (02/07/2016 7:31 AM PDT) + + + + + + | Component | Value | Ref Range | Performed | Pathologist | | | | | At | Signature | + + + + + + | Glucose, | 192 (H)Comment: Testing | 65 - 99 mg/dL | EXTERNAL | | | Fingerstick | performed at [facility];[address] | | LAB | | | | [address];[place], [place] | | | | | | [address] | | | | + + + + + + + + | Specimen | + + | | + + + +---------+ + + | Performing | Address | City/State/Zipcode | Phone Number | | Organization | | | | + +---------+ + + | EXTERNAL LAB | | | | + +---------+ + + POC Glucose (02/07/2016 6:32 AM PDT) + + + + + + | Component | Value | Ref Range | Performed | Pathologist | | | | | At | Signature | + + + + + + | Glucose, | 204 (H)Comment: Testing | 65 - 99 mg/dL | EXTERNAL | | | Fingerstick | performed at [facility];[address] | | LAB | | | | [address];[place] | | | | | | [address] | | | | + + + + + + + + | Specimen | + + | | + + + +---------+ + + | Performing | Address | City/State/Zipcode | Phone Number | | Organization | | | | + +---------+ + + | EXTERNAL LAB | | | | + +---------+ + + ECG 12 lead (02/07/2016 6:19 AM PDT) + + + + + + | Component | Value | Ref Range | Performed | Pathologist | | | | | At | Signature | + + + + + + | DIAGNOSIS: | Normal sinus | | EXTERNAL | | | | rhythmNonspecific ST | | LAB | | | | abnormalityAbnormal | | | | | | ECGNo previous ECGs | | | | | | availableConfirmed by | | | | | | CHARLES CHUNG ([id number]) on | | | | | | 02/07/2016 7:37:38 AM | | | | + + + + + + + + | Specimen | + + | | + + + + + | Narrative | Performed At | + + + | Historically converted procedure from [facility] environment | EXTERNAL LAB | + + + + +---------+ + + | Performing | Address | City/State/Zipcode | Phone Number | | Organization | | | | + +---------+ + + | EXTERNAL LAB | | | | + +---------+ + + POC Glucose (02/07/2016 5:28 AM PDT) + + + + + + | Component | Value | Ref Range | Performed | Pathologist | | | | | At | Signature | + + + + + + | Glucose, | 214 (H)Comment: Testing | 65 - 99 mg/dL | EXTERNAL | | | Fingerstick | performed at [facility];[address] | | LAB | | | | [address];[place] | | | | | | [address] | | | | + + + + + + + + | Specimen | + + | | + + + +---------+ + + | Performing | Address | City/State/Zipcode | Phone Number | | Organization | | | | + +---------+ + + | EXTERNAL LAB | | | | + +---------+ + + External Lab: CBC (02/07/2016 4:53 AM PDT) + + + + + + | Component | Value | Ref Range | Performed | Pathologist | | | | | At | Signature | + + + + + + | WBC | 8.62Comment: Testing | 3.80 - 11.00 | EXTERNAL | | | | performed at [facility], [address] | K/uL | LAB | | | | [address], | | | | | | [place] [address] | | | | + + + + + + | Non- | 3.17 (L)Comment: Testing | 4.20 - 5.70 | EXTERNAL | | | Red Blood | performed at [facility], [address] | M/uL | LAB | | | Cells | [address], | | | | | Counted | [place] [address] | | | | + + + + + + | Hemoglobin | 10.2 (L)Comment: Testing | 13.2 - 17.0 | EXTERNAL | | | | performed at [facility], [address] | g/dL | LAB | | | | [address], | | | | | | [place] [address] | | | | + + + + + + | Hematocrit, | 29.6 (L)Comment: Testing | 39.0 - 50.0 % | EXTERNAL | | | POC | performed at [facility], [address] | | LAB | | | | [address], | | | | | | [place] [address] | | | | + + + + + + | MCV | 93.3Comment: Testing | 80.0 - 100.0 fl | EXTERNAL | | | | performed at [facility], [address] | | LAB | | | [address], | | | | | | [place] [address] | | | | + + + + + + | MCH | 32.0Comment: Testing | 27.0 - 34.0 pg | EXTERNAL | | | | performed at [facility], [address] | | LAB | | | | [address], | | | | | | [place] [address] | | | | + + + + + + | MCHC | 34.3Comment: Testing | 32.0 - 35.5 | EXTERNAL | | | | performed at [facility], [address] | g/dL | LAB | | | | [address], | | | | | | [place] [address] | | | | + + + + + + | RDW-CV | 46.4Comment: Testing | 37 - 53 fl | EXTERNAL | | | | performed at [facility], [address] | | LAB | | | | [address], | | | | | | [place] [address] | | | | + + + + + + | Platelet | 209Comment: Testing | 150 - 400 K/uL | EXTERNAL | | | Count | performed at [facility], [address] | | LAB | | | Plasma | [address], | | | | | | [place] [address] | | | | + + + + + + | MPV | 7.5Comment: Testing | fl | EXTERNAL | | | | performed at [facility], [address] | | LAB | | | | [address], | | | | | | [place] [address] | | | | + + + + + + | Differentia | AUTOMATEDComment: | | EXTERNAL | | | l Type | Testing performed at | | LAB | | | | [facility], [address] | | | | | | [place] | | | | | | [address] | | | | + + + + + + | % Segmented | 78.26Comment: Testing | % | EXTERNAL | | | | performed at [facility], [address] | | LAB | | | Neutrophils | [address], | | | | | | [place] [address] | | | | + + + + + + | % | 14.07Comment: Testing | % | EXTERNAL | | | Lymphocytes | performed at [facility], [address] | | LAB | | | | [address], | | | | | | [place] [address] | | | | + + + + + + | % Monocytes | 6.80Comment: Testing | % | EXTERNAL | | | | performed at [facility], [address] | | LAB | | | | [address], | | | | | | [place] [address] | | | | + + + + + + | % | 0.69Comment: Testing | % | EXTERNAL | | | Eosinophils | performed at [facility], [address] | | LAB | | | | [address], | | | | | | [place] [address] | | | | + + + + + + | % Basophils | 0.18Comment: Testing | % | EXTERNAL | | | | performed at [facility], [address] | | LAB | | | | [address], | | | | | | [place] [address] | | | | + + + + + + | Absolute | 6.75Comment: Testing | 1.90 - 7.40 | EXTERNAL | | | Segmented | performed at [facility], [address] | K/uL | LAB | | | Neutrophils | [address], | | | | | | [place] [address] | | | | + + + + + + | Absolute | 1.21Comment: Testing | 1.00 - 3.90 | EXTERNAL | | | Lymphocytes | performed at [facility], [address] | K/uL | LAB | | | | [address], | | | | | | [place] [address] | | | | + + + + + + | Absolute | 0.59Comment: Testing | 0.00 - 0.80 | EXTERNAL | | | Monocytes | performed at [facility], [address] | K/uL | LAB | | | | [address], | | | | | | [place] [address] | | | | + + + + + + | Absolute | 0.06Comment: Testing | 0.00 - 0.50 | EXTERNAL | | | Eosinophils | performed at [facility], [address] | K/uL | LAB | | | | [address], | | | | | | [place] [address] | | | | + + + + + + | Absolute | 0.02Comment: Testing | 0.00 - 0.10 | EXTERNAL | | | Basophils | performed at [facility], [address] | K/uL | LAB | | | | [address], | | | | | | [place] [address] | | | | + + + + + + + + | Specimen | + + | Blood specimen | | (specimen) | + + + +---------+ + + | Performing | Address | City/State/Zipcode | Phone Number | | Organization | | | | + +---------+ + + | EXTERNAL LAB | | | | + +---------+ + + Phosphorus (02/07/2016 4:53 AM PDT) + + + + + + | Component | Value | Ref Range | Performed | Pathologist | | | | | At | Signature | + + + + + + | PHOSPHORUS | 2.4Comment: Testing | 2.3 - 4.8 mg/dL | EXTERNAL | | | | performed at [facility];[address] | | LAB | | | | [address];[place], [place] | | | | | | [address] | | | | + + + + + + + + | Specimen | + + | Blood specimen | | (specimen) | + + + +---------+ + + | Performing | Address | City/State/Zipcode | Phone Number | | Organization | | | | + +---------+ + + | EXTERNAL LAB | | | | + +---------+ + + Magnesium (02/07/2016 4:53 AM PDT) + + + + + + | Component | Value | Ref Range | Performed | Pathologist | | | | | At | Signature | + + + + + + | Magnesium | 1.6 (L)Comment: Testing | 1.7 - 2.4 mg/dL | EXTERNAL | | | | performed at [facility] | | LAB | | | | [address];[place] | | | | | | [address] | | | | + + + + + + + + | Specimen | + + | Blood specimen | | (specimen) | + + + +---------+ + + | Performing | Address | City/State/Zipcode | Phone Number | | Organization | | | | + +---------+ + + | EXTERNAL LAB | | | | + +---------+ + + Basic Metabolic Panel (02/07/2016 4:53 AM PDT) + + + + + + | Component | Value | Ref Range | Performed | Pathologist | | | | | At | Signature | + + + + + + | Na | 134 (L)Comment: Testing | 135 - 145 | EXTERNAL | | | | performed at [facility];[address] | mmol/L | LAB | | | | [address];[place] | | | | | | [address] | | | | + + + + + + | K | 2.9 (L)Comment: Testing | 3.5 - 4.9 | EXTERNAL | | | | performed at [facility];[address] | mmol/L | LAB | | | | [address];[place] | | | | | | [address] | | | | + + + + + + | Cl | 108Comment: Testing | 99 - 109 mmol/L | EXTERNAL | | | | performed at [facility];[address] | | LAB | | | | [address];[place] | | | | | | [address] | | | | + + + + + + | CO2 | 15 (L)Comment: Testing | 23 - 32 mmol/L | EXTERNAL | | | | performed at [facility];[address] | | LAB | | | | [address];[place] | | | | | | [address] | | | | + + + + + + | Anion Gap | 14Comment: Testing | 5 - 20 mmol/L | EXTERNAL | | | | performed at [facility];[address] | | LAB | | | | [address];[place] | | | | | | [address] | | | | + + + + + + | Glucose, | 197 (H)Comment: Testing | 65 - 99 mg/dL | EXTERNAL | | | Fasting | performed at [facility];[address] | | LAB | | | | [address];[place] | | | | | | [address] | | | | + + + + + + | BUN | 8Comment: Testing | 8 - 25 mg/dL | EXTERNAL | | | | performed at [facility];[address] | | LAB | | | | [address];[place] | | | | | | [address] | | | | + + + + + + | Creatinine | 0.64 (L)Comment: Testing | 0.70 - 1.30 | EXTERNAL | | | | performed at [facility];[address] | mg/dL | LAB | | | | [address];[place] | | | | | | [address] | | | | + + + + + + | BUN/Creatin | 12Comment: Testing | | EXTERNAL | | | ine Ratio | performed at [facility];[address] | | LAB | | | | [address];[place] | | | | | | [address] | | | | + + + + + + | Calcium | 7.1 (L)Comment: Testing | 8.5 - 10.5 | EXTERNAL | | | | performed at [facility];[address] | mg/dL | LAB | | | | [address];[place] | | | | | | [address] | | | | + + + + + + | Estimated | >60Comment: GFR <60: | mL/min/1.73m2 | EXTERNAL | | | GFR | CHRONIC KIDNEY DISEASE, | | LAB | | | | IF FOUND OVER A 3 MONTH | | | | | | PERIOD.GFR <15: KIDNEY | | | | | | FAILURE.FOR | | | | | | AMERICANS, MULTIPLY THE | | | | | | CALCULATED GFR BY | | | | | | 1.210.Testing performed | | | | | | at [facility];[address] | | | | | | [address];[place] [address] | | | | + + + + + + + + | Specimen | + + | Blood specimen | | (specimen) | + + + +---------+ + + | Performing | Address | City/State/Zipcode | Phone Number | | Organization | | | | + +---------+ + + | EXTERNAL LAB | | | | + +---------+ + + POC Glucose (02/07/2016 4:36 AM PDT) + + + + + + | Component | Value | Ref Range | Performed | Pathologist | | | | | At | Signature | + + + + + + | Glucose, | 253 (H)Comment: Testing | 65 - 99 mg/dL | EXTERNAL | | | Fingerstick | performed at [facility];[address] | | LAB | | | | [address];[place], [place] | | | | | | [address] | | | | + + + + + + + + | Specimen | + + | | + + + +---------+ + + | Performing | Address | City/State/Zipcode | Phone Number | | Organization | | | | + +---------+ + + | EXTERNAL LAB | | | | + +---------+ + + POC Glucose (02/07/2016 3:36 AM PDT) + + + + + + | Component | Value | Ref Range | Performed | Pathologist | | | | | At | Signature | + + + + + + | Glucose, | 227 (H)Comment: Testing | 65 - 99 mg/dL | EXTERNAL | | | Fingerstick | performed at [facility];[address] | | LAB | | | | [address];[place] | | | | | | [address] | | | | + + + + + + + + | Specimen | + + | | + + + +---------+ + + | Performing | Address | City/State/Zipcode | Phone Number | | Organization | | | | + +---------+ + + | EXTERNAL LAB | | | | + +---------+ + + POC Glucose (02/07/2016 2:33 AM PDT) + + + + + + | Component | Value | Ref Range | Performed | Pathologist | | | | | At | Signature | + + + + + + | Glucose, | 265 (H)Comment: Testing | 65 - 99 mg/dL | EXTERNAL | | | Fingerstick | performed at [facility];[address] | | LAB | | | | [address];[place] | | | | | | [address] | | | | + + + + + + + + | Specimen | + + | | + + + +---------+ + + | Performing | Address | City/State/Zipcode | Phone Number | | Organization | | | | + +---------+ + + | EXTERNAL LAB | | | | + +---------+ + + POC Glucose (02/07/2016 1:31 AM PDT) + + + + + + | Component | Value | Ref Range | Performed | Pathologist | | | | | At | Signature | + + + + + + | Glucose, | 238 (H)Comment: Testing | 65 - 99 mg/dL | EXTERNAL | | | Fingerstick | performed at [facility];[address] | | LAB | | | | [address];[place] | | | | | | [address] | | | | + + + + + + + + | Specimen | + + | | + + + +---------+ + + | Performing | Address | City/State/Zipcode | Phone Number | | Organization | | | | + +---------+ + + | EXTERNAL LAB | | | | + +---------+ + + Phosphorus (02/07/2016 12:58 AM PDT) + + + + + + | Component | Value | Ref Range | Performed | Pathologist | | | | | At | Signature | + + + + + + | PHOSPHORUS | 2.6Comment: Testing | 2.3 - 4.8 mg/dL | EXTERNAL | | | | performed at [facility];[address] | | LAB | | | | [address];[place] | | | | | | [address] | | | | + + + + + + + + | Specimen | + + | Blood specimen | | (specimen) | + + + +---------+ + + | Performing | Address | City/State/Zipcode | Phone Number | | Organization | | | | + +---------+ + + | EXTERNAL LAB | | | | + +---------+ + + Magnesium (02/07/2016 12:58 AM PDT) + + + + + + | Component | Value | Ref Range | Performed | Pathologist | | | | | At | Signature | + + + + + + | Magnesium | 1.6 (L)Comment: Testing | 1.7 - 2.4 mg/dL | EXTERNAL | | | | performed at [facility];[address] | | LAB | | | | [address];[place], [place] | | | | | | [address] | | | | + + + + + + + + | Specimen | + + | Blood specimen | | (specimen) | + + + +---------+ + + | Performing | Address | City/State/Zipcode | Phone Number | | Organization | | | | + +---------+ + + | EXTERNAL LAB | | | | + +---------+ + + Basic Metabolic Panel (02/07/2016 12:58 AM PDT) + + + + + + | Component | Value | Ref Range | Performed | Pathologist | | | | | At | Signature | + + + + + + | Na | 134 (L)Comment: Testing | 135 - 145 | EXTERNAL | | | | performed at [facility];[address] | mmol/L | LAB | | | | [address];[place] | | | | | | [address] | | | | + + + + + + | K | 3.0 (L)Comment: Testing | 3.5 - 4.9 | EXTERNAL | | | | performed at [facility];[address] | mmol/L | LAB | | | | [address];[place] | | | | | | [address] | | | | + + + + + + | Cl | 108Comment: Testing | 99 - 109 mmol/L | EXTERNAL | | | | performed at [facility];[address] | | LAB | | | | [address];[place] | | | | | | [address] | | | | + + + + + + | CO2 | 14 ()Comment: CALLED | 23 - 32 mmol/L | EXTERNAL | | | | TO CODY Swain RN/CATHI AT | | LAB | | | | 0134 BY MWREAD BACK | | | | | | RESULTS VERIFIEDTesting | | | | | | performed at [facility];[address] | | | | | | [address];[place] | | | | | | [address] | | | | + + + + + + | Anion Gap | 14Comment: Testing | 5 - 20 mmol/L | EXTERNAL | | | | performed at [facility];[address] | | LAB | | | | [address];[place] | | | | | | [address] | | | | + + + + + + | Glucose, | 213 (H)Comment: Testing | 65 - 99 mg/dL | EXTERNAL | | | Fasting | performed at [facility];[address] | | LAB | | | | [address];[place] | | | | | | [address] | | | | + + + + + + | BUN | 10Comment: Testing | 8 - 25 mg/dL | EXTERNAL | | | | performed at [facility];[address] | | LAB | | | | [address];[place] | | | | | | [address] | | | | + + + + + + | Creatinine | 0.70Comment: Testing | 0.70 - 1.30 | EXTERNAL | | | | performed at [facility];[address] | mg/dL | LAB | | | | [address];[place] | | | | | | [address] | | | | + + + + + + | BUN/Creatin | 14Comment: Testing | | EXTERNAL | | | ine Ratio | performed at [facility];[address] | | LAB | | | | [address];[place] | | | | | | [address] | | | | + + + + + + | Calcium | 6.9 (L)Comment: Testing | 8.5 - 10.5 | EXTERNAL | | | | performed at [facility];[address] | mg/dL | LAB | | | | [address];[place] | | | | | | [address] | | | | + + + + + + | Estimated | >60Comment: GFR <60: | mL/min/1.73m2 | EXTERNAL | | | GFR | CHRONIC KIDNEY DISEASE, | | LAB | | | | IF FOUND OVER A 3 MONTH | | | | | | PERIOD.GFR <15: KIDNEY | | | | | | FAILURE.FOR | | | | | | AMERICANS, MULTIPLY THE | | | | | | CALCULATED GFR BY | | | | | | 1.210.Testing performed | | | | | | at [facility];[address] | | | | | | [address];[place] [address] | | | | + + + + + + + + | Specimen | + + | Blood specimen | | (specimen) | + + + +---------+ + + | Performing | Address | City/State/Zipcode | Phone Number | | Organization | | | | + +---------+ + + | EXTERNAL LAB | | | | + +---------+ + + POC Glucose (02/07/2016 12:29 AM PDT) + + + + + + | Component | Value | Ref Range | Performed | Pathologist | | | | | At | Signature | + + + + + + | Glucose, | 212 (H)Comment: Testing | 65 - 99 mg/dL | EXTERNAL | | | Fingerstick | performed at [facility];[address] | | LAB | | | | [address];[place], [place] | | | | | | [address] | | | | + + + + + + + + | Specimen | + + | | + + + +---------+ + + | Performing | Address | City/State/Zipcode | Phone Number | | Organization | | | | + +---------+ + + | EXTERNAL LAB | | | | + +---------+ + + POC Glucose (02/06/2016 11:04 PM PDT) + + + + + + | Component | Value | Ref Range | Performed | Pathologist | | | | | At | Signature | + + + + + + | Glucose, | 185 (H)Comment: Testing | 65 - 99 mg/dL | EXTERNAL | | | Fingerstick | performed at [facility];[address] | | LAB | | | | [address];[place] | | | | | | [address] | | | | + + + + + + + + | Specimen | + + | | + + + +---------+ + + | Performing | Address | City/State/Zipcode | Phone Number | | Organization | | | | + +---------+ + + | EXTERNAL LAB | | | | + +---------+ + + POC Glucose (02/06/2016 9:58 PM PDT) + + + + + + | Component | Value | Ref Range | Performed | Pathologist | | | | | At | Signature | + + + + + + | Glucose, | 156 (H)Comment: Testing | 65 - 99 mg/dL | EXTERNAL | | | Fingerstick | performed at [facility];[address] | | LAB | | | | [address];[place] | | | | | | [address] | | | | + + + + + + + + | Specimen | + + | | + + + +---------+ + + | Performing | Address | City/State/Zipcode | Phone Number | | Organization | | | | + +---------+ + + | EXTERNAL LAB | | | | + +---------+ + + Phosphorus (02/06/2016 9:02 PM PDT) + + + + + + | Component | Value | Ref Range | Performed | Pathologist | | | | | At | Signature | + + + + + + | PHOSPHORUS | 1.6 (L)Comment: Testing | 2.3 - 4.8 mg/dL | EXTERNAL | | | | performed at [facility];[address] | | LAB | | | | [address];[place], [place] | | | | | | [address] | | | | + + + + + + + + | Specimen | + + | Blood specimen | | (specimen) | + + + +---------+ + + | Performing | Address | City/State/Zipcode | Phone Number | | Organization | | | | + +---------+ + + | EXTERNAL LAB | | | | + +---------+ + + Magnesium (02/06/2016 9:02 PM PDT) + + + + + + | Component | Value | Ref Range | Performed | Pathologist | | | | | At | Signature | + + + + + + | Magnesium | 1.8Comment: Testing | 1.7 - 2.4 mg/dL | EXTERNAL | | | | performed at [facility];[address] | | LAB | | | | [address];[place], [place] | | | | | | [address] | | | | + + + + + + + + | Specimen | + + | Blood specimen | | (specimen) | + + + +---------+ + + | Performing | Address | City/State/Zipcode | Phone Number | | Organization | | | | + +---------+ + + | EXTERNAL LAB | | | | + +---------+ + + Basic Metabolic Panel (02/06/2016 9:02 PM PDT) + + + + + + | Component | Value | Ref Range | Performed | Pathologist | | | | | At | Signature | + + + + + + | Na | 137Comment: Testing | 135 - 145 | EXTERNAL | | | | performed at [facility];[address] | mmol/L | LAB | | | | [address];[place] | | | | | | [address] | | | | + + + + + + | K | 3.3 (L)Comment: Testing | 3.5 - 4.9 | EXTERNAL | | | | performed at [facility];[address] | mmol/L | LAB | | | | [address];[place] | | | | | | [address] | | | | + + + + + + | Cl | 111 (H)Comment: Testing | 99 - 109 mmol/L | EXTERNAL | | | | performed at [facility];[address] | | LAB | | | | [address];[place] | | | | | | [address] | | | | + + + + + + | CO2 | 16 (L)Comment: Testing | 23 - 32 mmol/L | EXTERNAL | | | | performed at [facility];[address] | | LAB | | | | [address];[place] | | | | | | [address] | | | | + + + + + + | Anion Gap | 13Comment: Testing | 5 - 20 mmol/L | EXTERNAL | | | | performed at [facility];[address] | | LAB | | | | [address];[place] | | | | | | [address] | | | | + + + + + + | Glucose, | 125 (H)Comment: Testing | 65 - 99 mg/dL | EXTERNAL | | | Fasting | performed at [facility];[address] | | LAB | | | | [address];[place] | | | | | | [address] | | | | + + + + + + | BUN | 10Comment: Testing | 8 - 25 mg/dL | EXTERNAL | | | | performed at [facility];[address] | | LAB | | | | [address];[place] | | | | | | [address] | | | | + + + + + + | Creatinine | 0.82Comment: Testing | 0.70 - 1.30 | EXTERNAL | | | | performed at [facility];[address] | mg/dL | LAB | | | | [address];[place] | | | | | | [address] | | | | + + + + + + | BUN/Creatin | 12Comment: Testing | | EXTERNAL | | | ine Ratio | performed at [facility];[address] | | LAB | | | | [address];[place] | | | | | | [address] | | | | + + + + + + | Calcium | 6.6 (L)Comment: Testing | 8.5 - 10.5 | EXTERNAL | | | | performed at [facility];[address] | mg/dL | LAB | | | | [address];[place] | | | | | | [address] | | | | + + + + + + | Estimated | >60Comment: GFR <60: | mL/min/1.73m2 | EXTERNAL | | | GFR | CHRONIC KIDNEY DISEASE, | | LAB | | | | IF FOUND OVER A 3 MONTH | | | | | | PERIOD.GFR <15: KIDNEY | | | | | | FAILURE.FOR | | | | | | AMERICANS, MULTIPLY THE | | | | | | CALCULATED GFR BY | | | | | | 1.210.Testing performed | | | | | | at [facility];[address];[place] [address] | | | | + + + + + + + + | Specimen | + + | Blood specimen | | (specimen) | + + + +---------+ + + | Performing | Address | City/State/Zipcode | Phone Number | | Organization | | | | + +---------+ + + | EXTERNAL LAB | | | | + +---------+ + + POC Glucose (02/06/2016 8:53 PM PDT) + + + + + + | Component | Value | Ref Range | Performed | Pathologist | | | | | At | Signature | + + + + + + | Glucose, | 143 (H)Comment: Testing | 65 - 99 mg/dL | EXTERNAL | | | Fingerstick | performed at [facility];[address] | | LAB | | | | [address];[place] | | | | | | [address] | | | | + + + + + + + + | Specimen | + + | | + + + +---------+ + + | Performing | Address | City/State/Zipcode | Phone Number | | Organization | | | | + +---------+ + + | EXTERNAL LAB | | | | + +---------+ + + POC Glucose (02/06/2016 7:55 PM PDT) + + + + + + | Component | Value | Ref Range | Performed | Pathologist | | | | | At | Signature | + + + + + + | Glucose, | 136 (H)Comment: Testing | 65 - 99 mg/dL | EXTERNAL | | | Fingerstick | performed at [facility];[address] | | LAB | | | | [address];[place] | | | | | | [address] | | | | + + + + + + + + | Specimen | + + | | + + + +---------+ + + | Performing | Address | City/State/Zipcode | Phone Number | | Organization | | | | + +---------+ + + | EXTERNAL LAB | | | | + +---------+ + + POC Glucose (02/06/2016 6:51 PM PDT) + + + + + + | Component | Value | Ref Range | Performed | Pathologist | | | | | At | Signature | + + + + + + | Glucose, | 143 (H)Comment: Testing | 65 - 99 mg/dL | EXTERNAL | | | Fingerstick | performed at [facility];[address] | | LAB | | | | [address];[place], [place] | | | | | | [address] | | | | + + + + + + + + | Specimen | + + | | + + + +---------+ + + | Performing | Address | City/State/Zipcode | Phone Number | | Organization | | | | + +---------+ + + | EXTERNAL LAB | | | | + +---------+ + + POC Glucose (02/06/2016 6:00 PM PDT) + + + + + + | Component | Value | Ref Range | Performed | Pathologist | | | | | At | Signature | + + + + + + | Glucose, | 144 (H)Comment: Testing | 65 - 99 mg/dL | EXTERNAL | | | Fingerstick | performed at [facility];[address] | | LAB | | | | [address];[place] | | | | | | [address] | | | | + + + + + + + + | Specimen | + + | | + + + +---------+ + + | Performing | Address | City/State/Zipcode | Phone Number | | Organization | | | | + +---------+ + + | EXTERNAL LAB | | | | + +---------+ + + Phosphorus (02/06/2016 5:05 PM PDT) + + + + + + | Component | Value | Ref Range | Performed | Pathologist | | | | | At | Signature | + + + + + + | PHOSPHORUS | 1.3 (L)Comment: Testing | 2.3 - 4.8 mg/dL | EXTERNAL | | | | performed at [facility];[address] | | LAB | | | | [facility];[place], [place] | | | | | | [address] | | | | + + + + + + + + | Specimen | + + | Blood specimen | | (specimen) | + + + +---------+ + + | Performing | Address | City/State/Zipcode | Phone Number | | Organization | | | | + +---------+ + + | EXTERNAL LAB | | | | + +---------+ + + Magnesium (02/06/2016 5:05 PM PDT) + + + + + + | Component | Value | Ref Range | Performed | Pathologist | | | | | At | Signature | + + + + + + | Magnesium | 2.1Comment: Testing | 1.7 - 2.4 mg/dL | EXTERNAL | | | | performed at [facility];[address] | | LAB | | | | [address];[place] | | | | | | [address] | | | | + + + + + + + + | Specimen | + + | Blood specimen | | (specimen) | + + + +---------+ + + | Performing | Address | City/State/Zipcode | Phone Number | | Organization | | | | + +---------+ + + | EXTERNAL LAB | | | | + +---------+ + + pH, venous (02/06/2016 5:05 PM PDT) + + + + + + | Component | Value | Ref Range | Performed | Pathologist | | | | | At | Signature | + + + + + + | pH, Bld | 7.185 (L)Comment: | 7.300 - 7.450 | EXTERNAL | | | | Testing performed at | | LAB | | | | [facility];[address] [place] [address] | | | | | | Blvd;[place] [address] | | | | + + + + + + + + | Specimen | + + | Blood specimen | | (specimen) | + + + +---------+ + + | Performing | Address | City/State/Zipcode | Phone Number | | Organization | | | | + +---------+ + + | EXTERNAL LAB | | | | + +---------+ + + Basic Metabolic Panel (02/06/2016 5:05 PM PDT) + + + + + + | Component | Value | Ref Range | Performed | Pathologist | | | | | At | Signature | + + + + + + | Na | 138Comment: Testing | 135 - 145 | EXTERNAL | | | | performed at [facility];[address] | mmol/L | LAB | | | | [address];[place] | | | | | | [address] | | | | + + + + + + | K | 2.7 (LL)Comment: CALLED | 3.5 - 4.9 | EXTERNAL | | | | NURSING UNITREAD BACK | mmol/L | LAB | | | | RESULTS VERIFIEDIVAN K | | | | | | AT 1748 JGRTesting | | | | | | performed at [facility];[address] | | | | | | [address];[place] | | | | | | [address] | | | | + + + + + + | Cl | 110 (H)Comment: Testing | 99 - 109 mmol/L | EXTERNAL | | | | performed at [facility];[address] | | LAB | | | | [address];[place] | | | | | | [address] | | | | + + + + + + | CO2 | 15 (L)Comment: Testing | 23 - 32 mmol/L | EXTERNAL | | | | performed at [facility];[address] | | LAB | | | | [address];[place] | | | | | | [address] | | | | + + + + + + | Anion Gap | 15Comment: Testing | 5 - 20 mmol/L | EXTERNAL | | | | performed at [facility];[address] | | LAB | | | | [address];[place] | | | | | | [address] | | | | + + + + + + | Glucose, | 133 (H)Comment: Testing | 65 - 99 mg/dL | EXTERNAL | | | Fasting | performed at [facility];[address] | | LAB | | | | [address];[place] | | | | | | [address] | | | | + + + + + + | BUN | 14Comment: Testing | 8 - 25 mg/dL | EXTERNAL | | | | performed at [facility];[address] | | LAB | | | | [address];[place] | | | | | | [address] | | | | + + + + + + | Creatinine | 0.92Comment: Testing | 0.70 - 1.30 | EXTERNAL | | | | performed at [facility];[address] | mg/dL | LAB | | | | [address];[place] | | | | | | [address] | | | | + + + + + + | BUN/Creatin | 15Comment: Testing | | EXTERNAL | | | ine Ratio | performed at [facility];[address] | | LAB | | | | [address];[place] | | | | | | [address] | | | | + + + + + + | Calcium | 6.5 (L)Comment: Testing | 8.5 - 10.5 | EXTERNAL | | | | performed at [facility];[address] | mg/dL | LAB | | | | [facility], [place] | | | | | | [address] | | | | + + + + + + | Estimated | >60Comment: GFR <60: | mL/min/1.73m2 | EXTERNAL | | | GFR | CHRONIC KIDNEY DISEASE, | | LAB | | | | IF FOUND OVER A 3 MONTH | | | | | | PERIOD.GFR <15: KIDNEY | | | | | | FAILURE.FOR | | | | | | AMERICANS, MULTIPLY THE | | | | | | CALCULATED GFR BY | | | | | | 1.210.Testing performed | | | | | | at [facility];[address] | | | [address];[place] [address] | | | | + + + + + + + + | Specimen | + + | Blood specimen | | (specimen) | + + + +---------+ + + | Performing | Address | City/State/Zipcode | Phone Number | | Organization | | | | + +---------+ + + | EXTERNAL LAB | | | | + +---------+ + + POC Glucose (02/06/2016 4:58 PM PDT) + + + + + + | Component | Value | Ref Range | Performed | Pathologist | | | | | At | Signature | + + + + + + | Glucose, | 157 (H)Comment: Testing | 65 - 99 mg/dL | EXTERNAL | | | Fingerstick | performed at [facility];8 | | LAB | | | | [address];[place] | | | | | | [address] | | | | + + + + + + + + | Specimen | + + | | + + + +---------+ + + | Performing | Address | City/State/Zipcode | Phone Number | | Organization | | | | + +---------+ + + | EXTERNAL LAB | | | | + +---------+ + + POC Glucose (02/06/2016 3:27 PM PDT) + + + + + + | Component | Value | Ref Range | Performed | Pathologist | | | | | At | Signature | + + + + + + | Glucose, | 203 (H)Comment: Testing | 65 - 99 mg/dL | EXTERNAL | | | Fingerstick | performed at [facility];[address] | | LAB | | | | [address];[place], [place] | | | | | | [address] | | | | + + + + + + + + | Specimen | + + | | + + + +---------+ + + | Performing | Address | City/State/Zipcode | Phone Number | | Organization | | | | + +---------+ + + | EXTERNAL LAB | | | | + +---------+ + + POC Glucose (02/06/2016 2:24 PM PDT) + + + + + + | Component | Value | Ref Range | Performed | Pathologist | | | | | At | Signature | + + + + + + | Glucose, | 191 (H)Comment: Testing | 65 - 99 mg/dL | EXTERNAL | | | Fingerstick | performed at [facility];8 | | LAB | | | | [address];[place] | | | | | | [address] | | | | + + + + + + + + | Specimen | + + | | + + + +---------+ + + | Performing | Address | City/State/Zipcode | Phone Number | | Organization | | | | + +---------+ + + | EXTERNAL LAB | | | | + +---------+ + + POC Glucose (02/06/2016 1:15 PM PDT) + + + + + + | Component | Value | Ref Range | Performed | Pathologist | | | | | At | Signature | + + + + + + | Glucose, | 216 (H)Comment: Testing | 65 - 99 mg/dL | EXTERNAL | | | Fingerstick | performed at [facility];[address] | | LAB | | | | [address];[place] | | | | | | [address] | | | | + + + + + + + + | Specimen | + + | | + + + +---------+ + + | Performing | Address | City/State/Zipcode | Phone Number | | Organization | | | | + +---------+ + + | EXTERNAL LAB | | | | + +---------+ + + Phosphorus (02/06/2016 12:47 PM PDT) + + + + + + | Component | Value | Ref Range | Performed | Pathologist | | | | | At | Signature | + + + + + + | PHOSPHORUS | 2.6Comment: Testing | 2.3 - 4.8 mg/dL | EXTERNAL | | | | performed at [facility];[address] | | LAB | | | | [address];[place], [place] | | | | | | [address] | | | | + + + + + + + + | Specimen | + + | Blood specimen | | (specimen) | + + + +---------+ + + | Performing | Address | City/State/Zipcode | Phone Number | | Organization | | | | + +---------+ + + | EXTERNAL LAB | | | | + +---------+ + + Magnesium (02/06/2016 12:47 PM PDT) + + + + + + | Component | Value | Ref Range | Performed | Pathologist | | | | | At | Signature | + + + + + + | Magnesium | 1.9Comment: Testing | 1.7 - 2.4 mg/dL | EXTERNAL | | | | performed at [facility];[address] | | LAB | | | | [address];[place], [place] | | | | | | [address] | | | | + + + + + + + + | Specimen | + + | Blood specimen | | (specimen) | + + + +---------+ + + | Performing | Address | City/State/Zipcode | Phone Number | | Organization | | | | + +---------+ + + | EXTERNAL LAB | | | | + +---------+ + + pH, venous (02/06/2016 12:47 PM PDT) + + + + + + | Component | Value | Ref Range | Performed | Pathologist | | | | | At | Signature | + + + + + + | pH, Bld | 7.005 (L)Comment: | 7.300 - 7.450 | EXTERNAL | | | | Testing performed at | | LAB | | | | [facility];[address] [place] [address] | | | | | | Blvd;[place] [address] | | | | + + + + + + + + | Specimen | + + | Blood specimen | | (specimen) | + + + +---------+ + + | Performing | Address | City/State/Zipcode | Phone Number | | Organization | | | | + +---------+ + + | EXTERNAL LAB | | | | + +---------+ + + Basic Metabolic Panel (02/06/2016 12:47 PM PDT) + + + + + + | Component | Value | Ref Range | Performed | Pathologist | | | | | At | Signature | + + + + + + | Na | 140Comment: Testing | 135 - 145 | EXTERNAL | | | | performed at [facility];[address] | mmol/L | LAB | | | | [address];[place] | | | | | | [address] | | | | + + + + + + | K | 3.1 (L)Comment: Testing | 3.5 - 4.9 | EXTERNAL | | | | performed at [facility] [place] | mmol/L | LAB | | | | [address];[place] | | | | | | [address] | | | | + + + + + + | Cl | 113 (H)Comment: Testing | 99 - 109 mmol/L | EXTERNAL | | | | performed at [facility] [place] | | LAB | | | | [address];[place] | | | | | | [address] | | | | + + + + + + | CO2 | 7 (LL)Comment: RESULT | 23 - 32 mmol/L | EXTERNAL | | | | READ BACK BY:CHARLES [id number] | | LAB | | | | AT 1340.EAPTesting | | | | | | performed at [facility] [place];[address] | | | | | | [address];[place] | | | | | | [address] | | | | + + + + + + | Anion Gap | 23 (H)Comment: Testing | 5 - 20 mmol/L | EXTERNAL | | | | performed at [facility] [place];[address] | | LAB | | | | [address];[place] | | | | | | [address] | | | | + + + + + + | Glucose, | 206 (H)Comment: Testing | 65 - 99 mg/dL | EXTERNAL | | | Fasting | performed at [facility] [place];[address] | | LAB | | | | [address];[place] | | | | | | [address] | | | | + + + + + + | BUN | 18Comment: Testing | 8 - 25 mg/dL | EXTERNAL | | | | performed at [facility] [place];[address] | | LAB | | | | [address];[place] | | | | | | [address] | | | | + + + + + + | Creatinine | 0.84Comment: Testing | 0.70 - 1.30 | EXTERNAL | | | | performed at [facility] [place];888 | mg/dL | LAB | | | | [address];[place] | | | | | | [address] | | | | + + + + + + | BUN/Creatin | 21Comment: Testing | | EXTERNAL | | | ine Ratio | performed at [facility] [place];888 | | LAB | | | | [address];[place] | | | | | | [address] | | | | + + + + + + | Calcium | 6.7 (L)Comment: Testing | 8.5 - 10.5 | EXTERNAL | | | | performed at [facility] [place];888 | mg/dL | LAB | | | | [address];[place] | | | | | | [address] | | | | + + + + + + | Estimated | >60Comment: GFR <60: | mL/min/1.73m2 | EXTERNAL | | | GFR | CHRONIC KIDNEY DISEASE, | | LAB | | | | IF FOUND OVER A 3 MONTH | | | | | | PERIOD.GFR <15: KIDNEY | | | | | | FAILURE.FOR | | | | | | AMERICANS, MULTIPLY THE | | | | | | CALCULATED GFR BY | | | | | | 1.210.Testing performed | | | | | | at [facility];[address];[place] [address] | | | | + + + + + + + + | Specimen | + + | Blood specimen | | (specimen) | + + + +---------+ + + | Performing | Address | City/State/Zipcode | Phone Number | | Organization | | | | + +---------+ + + | EXTERNAL LAB | | | | + +---------+ + + POC Glucose (02/06/2016 12:02 PM PDT) + + + + + + | Component | Value | Ref Range | Performed | Pathologist | | | | | At | Signature | + + + + + + | Glucose, | 264 (H)Comment: Testing | 65 - 99 mg/dL | EXTERNAL | | | Fingerstick | performed at [facility];[address] | | LAB | | | | [address];[place], [place] | | | | | | [address] | | | | + + + + + + + + | Specimen | + + | | + + + +---------+ + + | Performing | Address | City/State/Zipcode | Phone Number | | Organization | | | | + +---------+ + + | EXTERNAL LAB | | | | + +---------+ + + POC Glucose (02/06/2016 11:20 AM PDT) + + + + + + | Component | Value | Ref Range | Performed | Pathologist | | | | | At | Signature | + + + + + + | Glucose, | 233 (H)Comment: Testing | 65 - 99 mg/dL | EXTERNAL | | | Fingerstick | performed at [facility];[address] | | LAB | | | | [address];[place] | | | | | | [address] | | | | + + + + + + + + | Specimen | + + | | + + + +---------+ + + | Performing | Address | City/State/Zipcode | Phone Number | | Organization | | | | + +---------+ + + | EXTERNAL LAB | | | | + +---------+ + + Phosphorus (02/06/2016 10:40 AM PDT) + + + + + + | Component | Value | Ref Range | Performed | Pathologist | | | | | At | Signature | + + + + + + | PHOSPHORUS | 2.1 (L)Comment: Testing | 2.3 - 4.8 mg/dL | EXTERNAL | | | | performed at [facility];[address] | | LAB | | | | [address];[place], [place] | | | | | | [address] | | | | + + + + + + + + | Specimen | + + | | + + + +---------+ + + | Performing | Address | City/State/Zipcode | Phone Number | | Organization | | | | + +---------+ + + | EXTERNAL LAB | | | | + +---------+ + + Magnesium (02/06/2016 10:40 AM PDT) + + + + + + | Component | Value | Ref Range | Performed | Pathologist | | | | | At | Signature | + + + + + + | Magnesium | 1.8Comment: Testing | 1.7 - 2.4 mg/dL | EXTERNAL | | | | performed at [facility];[address] | | LAB | | | | [address];[place], [place] | | | | | | [address] | | | | + + + + + + + + | Specimen | + + | | + + + +---------+ + + | Performing | Address | City/State/Zipcode | Phone Number | | Organization | | | | + +---------+ + + | EXTERNAL LAB | | | | + +---------+ + + Basic Metabolic Panel (02/06/2016 10:40 AM PDT) + + + + + + | Component | Value | Ref Range | Performed | Pathologist | | | | | At | Signature | + + + + + + | Na | 143Comment: Testing | 135 - 145 | EXTERNAL | | | | performed at [facility];[address] | mmol/L | LAB | | | [address];[place] | | | | | | [address] | | | | + + + + + + | K | 3.0 (L)Comment: Testing | 3.5 - 4.9 | EXTERNAL | | | | performed at [facility];[address] | mmol/L | LAB | | | [address];[place] | | | | | | [address] | | | | + + + + + + | Cl | 113 (H)Comment: Testing | 99 - 109 mmol/L | EXTERNAL | | | | performed at [facility];[address] | | LAB | | | [address];[place] | | | | | | [address] | | | | + + + + + + | CO2 | 6 (LL)Comment: CALLED | 23 - 32 mmol/L | EXTERNAL | | | | RESULTSREAD BACK RESULTS | | LAB | | | | CRISTAL/KATIA Scott AT | | | | | | 1110 BY SALTesting | | | | | | performed at [facility];[address] | | | | | | [address];[place] | | | | | | [address] | | | | + + + + + + | Anion Gap | 27 (H)Comment: Testing | 5 - 20 mmol/L | EXTERNAL | | | | performed at [facility];[address] | | LAB | | | | [address];[place] | | | | | | [address] | | | | + + + + + + | Glucose, | 214 (H)Comment: Testing | 65 - 99 mg/dL | EXTERNAL | | | Fasting | performed at [facility];[address] | | LAB | | | | [address];[place] | | | | | | [address] | | | | + + + + + + | BUN | 21Comment: Testing | 8 - 25 mg/dL | EXTERNAL | | | | performed at [facility];[address] | | LAB | | | [address];[place] | | | | | | [address] | | | | + + + + + + | Creatinine | 0.87Comment: Testing | 0.70 - 1.30 | EXTERNAL | | | | performed at [facility];[address] | mg/dL | LAB | | | | [address];[place] | | | | | | [address] | | | | + + + + + + | BUN/Creatin | 24Comment: Testing | | EXTERNAL | | | ine Ratio | performed at [facility];[address] | | LAB | | | [address];[place] | | | | | | [address] | | | | + + + + + + | Calcium | 6.8 (L)Comment: Testing | 8.5 - 10.5 | EXTERNAL | | | | performed at [facility];[address] | mg/dL | LAB | | | | [address];[place] | | | | | | [address] | | | | + + + + + + | Estimated | >60Comment: GFR <60: | mL/min/1.73m2 | EXTERNAL | | | GFR | CHRONIC KIDNEY DISEASE, | | LAB | | | | IF FOUND OVER A 3 MONTH | | | | | | PERIOD.GFR <15: KIDNEY | | | | | | FAILURE.FOR | | | | | | AMERICANS, MULTIPLY THE | | | | | | CALCULATED GFR BY | | | | | | 1.210.Testing performed | | | | | | at [facility];[address] [place] [address] | | | | | | [facility];[place] [address] | | | | + + + + + + + + | Specimen | + + | | + + + +---------+ + + | Performing | Address | City/State/Zipcode | Phone Number | | Organization | | | | + +---------+ + + | EXTERNAL LAB | | | | + +---------+ + + POC Glucose (02/06/2016 10:36 AM PDT) + + + + + + | Component | Value | Ref Range | Performed | Pathologist | | | | | At | Signature | + + + + + + | Glucose, | 245 (H)Comment: Testing | 65 - 99 mg/dL | EXTERNAL | | | Fingerstick | performed at [facility];[address] | | LAB | | | | [address];[place] | | | | | | [address] | | | | + + + + + + + + | Specimen | + + | | + + + +---------+ + + | Performing | Address | City/State/Zipcode | Phone Number | | Organization | | | | + +---------+ + + | EXTERNAL LAB | | | | + +---------+ + + POC Glucose (02/06/2016 10:04 AM PDT) + + + + + + | Component | Value | Ref Range | Performed | Pathologist | | | | | At | Signature | + + + + + + | Glucose, | 278 (H)Comment: Testing | 65 - 99 mg/dL | EXTERNAL | | | Fingerstick | performed at [facility];[address] | | LAB | | | | [address];[place] | | | | | | [address] | | | | + + + + + + + + | Specimen | + + | | + + + +---------+ + + | Performing | Address | City/State/Zipcode | Phone Number | | Organization | | | | + +---------+ + + | EXTERNAL LAB | | | | + +---------+ + + Ketones, blood (02/06/2016 9:26 AM PDT) + + + + + + | Component | Value | Ref Range | Performed | Pathologist | | | | | At | Signature | + + + + + + | Ketones, | LARGE (A)Comment: | | EXTERNAL | | | Blood | Testing performed at | | LAB | | | | [facility];[address];[place] [address] | | | | + + + + + + + + | Specimen | + + | Blood specimen | | (specimen) | + + + +---------+ + + | Performing | Address | City/State/Zipcode | Phone Number | | Organization | | | | + +---------+ + + | EXTERNAL LAB | | | | + +---------+ + + External Lab: CBC (02/06/2016 9:26 AM PDT) + + + + + + | Component | Value | Ref Range | Performed | Pathologist | | | | | At | Signature | + + + + + + | WBC | 8.77Comment: Testing | 3.80 - 11.00 | EXTERNAL | | | | performed at [facility];[address] | K/uL | LAB | | | | [address];[place] | | | | | | [address] | | | | + + + + + + | Non- | 2.80 (L)Comment: Testing | 4.20 - 5.70 | EXTERNAL | | | Red Blood | performed at [facility];[address] | M/uL | LAB | | | Cells | [address];[place] | | | | | Counted | [address] | | | | + + + + + + | Hemoglobin | 9.1 (L)Comment: Testing | 13.2 - 17.0 | EXTERNAL | | | | performed at [facility];[address] | g/dL | LAB | | | [address];[place] | | | | | | [address] | | | | + + + + + + | Hematocrit, | 26.7 (L)Comment: Testing | 39.0 - 50.0 % | EXTERNAL | | | POC | performed at [facility];[address] | | LAB | | | [address];[place] | | | | | | [address] | | | | + + + + + + | MCV | 95.4Comment: Testing | 80.0 - 100.0 fl | EXTERNAL | | | | performed at [facility];[address] | | LAB | | | [address];[place] | | | | | | [address] | | | | + + + + + + | MCH | 32.3Comment: Testing | 27.0 - 34.0 pg | EXTERNAL | | | | performed at [facility];[address] | | LAB | | | [address];[place] | | | | | | [address] | | | | + + + + + + | MCHC | 33.9Comment: Testing | 32.0 - 35.5 | EXTERNAL | | | | performed at [facility];[address] | g/dL | LAB | | | | [address];[place] | | | | | | [address] | | | | + + + + + + | RDW-CV | 47.3Comment: Testing | 37 - 53 fl | EXTERNAL | | | | performed at [facility];[address] | | LAB | | | [address];[place] | | | | | | [address] | | | | + + + + + + | Platelet | 190Comment: Testing | 150 - 400 K/uL | EXTERNAL | | | Count | performed at [facility];[address] | | LAB | | | Plasma | [address];[place] | | | | | | [address] | | | | + + + + + + | MPV | 7.2Comment: Testing | fl | EXTERNAL | | | | performed at [facility];[address] | | LAB | | | [address];[place] | | | | | | [address] | | | | + + + + + + | Differentia | MANUALComment: Testing | | EXTERNAL | | | l Type | performed at [facility];[address] | | LAB | | | | [address];[place] | | | | | | [address] | | | | + + + + + + | Segmented | 59Comment: Testing | % | EXTERNAL | | | Neutrophils | performed at [facility];[address] | | LAB | | | Manual | [address];[place] | | | | | | [address] | | | | + + + + + + | % Bands | 24Comment: Testing | % | EXTERNAL | | | | performed at [facility];[address] | | LAB | | | | [address];[place] | | | | | | [address] | | | | + + + + + + | % | 2Comment: Testing | % | EXTERNAL | | | Metamyelocy | performed at [facility];[address] | | LAB | | | [address] | [address];[place] | | | | | | [address] | | | | + + + + + + | Lymphocytes | 12Comment: Testing | % | EXTERNAL | | | Manual | performed at [facility];[address] | | LAB | | | [address];[place] | | | | | | [address] | | | | + + + + + + | Monocytes | 3Comment: Testing | % | EXTERNAL | | | Manual | performed at [facility];[address] | | LAB | | | [address];[place] | | | | | | [address] | | | | + + + + + + | Absolute | 5.18Comment: Testing | 1.90 - 7.40 | EXTERNAL | | | Neutrophils | performed at [facility];[address] | K/uL | LAB | | | | [address];[place] | | | | | | [address] | | | | + + + + + + | Bands | 2.10 (H)Comment: Testing | 0.00 - 0.20 | EXTERNAL | | | Manual | performed at [facility];[address] | K/uL | LAB | | | | [address];[place] | | | | | | [address] | | | | + + + + + + | Absolute | 0.18 (H)Comment: Testing | K/uL | EXTERNAL | | | Metamyelocy | performed at [facility];[address] | | LAB | | | [address] | [address];[place] | | | | | | [address] | | | | + + + + + + | Absolute | 1.05Comment: Testing | 1.00 - 3.90 | EXTERNAL | | | Lymphocytes | performed at [facility];[address] | K/uL | LAB | | | | [address];[place] | | | | | | [address] | | | | + + + + + + | Absolute | 0.26Comment: Testing | 0.00 - 0.80 | EXTERNAL | | | Monocytes | performed at [facility];[address] | K/uL | LAB | | | | [address];[place] | | | | | | [address] | | | | + + + + + + | Platelet | ADEQUATEComment: Testing | | EXTERNAL | | | Estimate | performed at [facility];[address] | | LAB | | | | [address];[place] | | | | | | [address] | | | | + + + + + + | RBC | NORMALComment: Testing | | EXTERNAL | | | Morphology | performed at [facility];[address] | | LAB | | | [address];[place] | | | | | | [address] | | | | + + + + + + + + | Specimen | + + | Blood specimen | | (specimen) | + + + +---------+ + + | Performing | Address | City/State/Zipcode | Phone Number | | Organization | | | | + +---------+ + + | EXTERNAL LAB | | | | + +---------+ + + Phosphorus (02/06/2016 9:26 AM PDT) + + + + + + | Component | Value | Ref Range | Performed | Pathologist | | | | | At | Signature | + + + + + + | PHOSPHORUS | 1.5 (L)Comment: POOR | 2.3 - 4.8 mg/dL | EXTERNAL | | | | QUALITY SPECIMEN FROM | | LAB | | | | THE LINE DRAW, CHARGES | | | | | | CREDITED, PATIENT | | | | | | REDRAWN.Testing | | | | | | performed at [facility];[address] | | | | | | [address];[place], [place] | | | | | | [address] | | | | + + + + + + + + | Specimen | + + | Blood specimen | | (specimen) | + + + +---------+ + + | Performing | Address | City/State/Zipcode | Phone Number | | Organization | | | | + +---------+ + + | EXTERNAL LAB | | | | + +---------+ + + Magnesium (02/06/2016 9:26 AM PDT) + + + + + + | Component | Value | Ref Range | Performed | Pathologist | | | | | At | Signature | + + + + + + | Magnesium | 1.3 (L)Comment: POOR | 1.7 - 2.4 mg/dL | EXTERNAL | | | | QUALITY SPECIMEN FROM | | LAB | | | | THE LINE DRAW, CHARGES | | | | | | CREDITED, PATIENT | | | | | | REDRAWN.Testing | | | | | | performed at [facility];[address] | | | | | | [address];[place], [place] | | | | | | [address] | | | | + + + + + + + + | Specimen | + + | Blood specimen | | (specimen) | + + + +---------+ + + | Performing | Address | City/State/Zipcode | Phone Number | | Organization | | | | + +---------+ + + | EXTERNAL LAB | | | | + +---------+ + + Hemoglobin A1C (02/06/2016 9:26 AM PDT) + + + + + + | Component | Value | Ref Range | Performed | Pathologist | | | | | At | Signature | + + + + + + | Hemoglobin | 16.3 (H)Comment: The | 4.0 - 6.0 % | EXTERNAL | | | A1c | [place] [employer] | | LAB | | | | Association considers a | | | | | | hemoglobin A1c result of | | | | | | <7.0% to be the goal of | | | | | | diabetic therapy. | | | | | | When results are | | | | | | consistently >8.0%, the | | | | | | ADA suggests | | | | | | reevaluation of the | | | | | | treatment regimen. The | | | | | | testing method used is | | | | | | certified traceable to | | | | | | the Diabetes Control and | | | | | | Complications Trial | | | | | | reference method.Testing | | | | | | performed at [facility], [address] | | | | | [address] [facility], | | | | | | [place] [address] | | | | + + + + + + | Glycohemogl | 421Comment: The ADA | mg/dL | EXTERNAL | | | obin | considers an eAG result | | LAB | | | (GHb),Total | of LT 154 mg/dL to be | | | | | | the goal of diabetic | | | | | | therapy. Estimated | | | | | | Average Glucose | | | | | | calculated from | | | | | | hemoglobin A1c by use of | | | | | | the ADA recommended | | | | | | formula.Testing | | | | | | performed at [facility], [address] | | | | | [facility], | | | | | | [place] [address] | | | | + + + + + + + + | Specimen | + + | Blood specimen | | (specimen) | + + + +---------+ + + | Performing | Address | City/State/Zipcode | Phone Number | | Organization | | | | + +---------+ + + | EXTERNAL LAB | | | | + +---------+ + + Basic Metabolic Panel (02/06/2016 9:26 AM PDT) + + + + + + | Component | Value | Ref Range | Performed | Pathologist | | | | | At | Signature | + + + + + + | Na | 149 (H)Comment: POOR | 135 - 145 | EXTERNAL | | | | QUALITY SPECIMEN FROM | mmol/L | LAB | | | | THE LINE DRAW, CHARGES | | | | | | CREDITED, PATIENT | | | | | | REDRAWN.Testing | | | | | | performed at [facility];[address] | | | | | | [address];[place] | | | | | | [address] | | | | + + + + + + | K | 2.4 (LL)Comment: RESULT | 3.5 - 4.9 | EXTERNAL | | | | READ BACK BY:CHARLES Mackay,6RP | mmol/L | LAB | | | | AT 1000.EAPPOOR QUALITY | | | | | | SPECIMEN FROM THE LINE | | | | | | DRAW, CHARGES CREDITED, | | | | | | PATIENT REDRAWN.Testing | | | | | | performed at [facility];[address] | | | | | | [address];[place] | | | | | | [address] | | | | + + + + + + | Cl | 122 (H)Comment: POOR | 99 - 109 mmol/L | EXTERNAL | | | | QUALITY SPECIMEN FROM | | LAB | | | | THE LINE DRAW, CHARGES | | | | | | CREDITED, PATIENT | | | | | | REDRAWN.Testing | | | | | | performed at [facility];[address] | | | | | | [address];[place] | | | | | | [address] | | | | + + + + + + | Anion Gap | 25 (H)Comment: POOR | 5 - 20 mmol/L | EXTERNAL | | | | QUALITY SPECIMEN FROM | | LAB | | | | THE LINE DRAW, CHARGES | | | | | | CREDITED, PATIENT | | | | | | REDRAWN.Testing | | | | | | performed at [facility];[address] | | | | | | [address];[place] | | | | | | [address] | | | | + + + + + + | Glucose, | 212 (H)Comment: POOR | 65 - 99 mg/dL | EXTERNAL | | | Fasting | QUALITY SPECIMEN FROM | | LAB | | | | THE LINE DRAW, CHARGES | | | | | | CREDITED, PATIENT | | | | | | REDRAWN.Testing | | | | | | performed at [facility];[address] | | | | | | [address];[place] | | | | | | [address] | | | | + + + + + + | BUN | 15Comment: POOR QUALITY | 8 - 25 mg/dL | EXTERNAL | | | | SPECIMEN FROM THE LINE | | LAB | | | | DRAW, CHARGES CREDITED, | | | | | | PATIENT REDRAWN.Testing | | | | | | performed at [facility];[address] | | | | | | [address];[place] | | | | | | [address] | | | | + + + + + + | Creatinine | 0.57 (L)Comment: POOR | 0.70 - 1.30 | EXTERNAL | | | | QUALITY SPECIMEN FROM | mg/dL | LAB | | | | THE LINE DRAW, CHARGES | | | | | | CREDITED, PATIENT | | | | | | REDRAWN.Testing | | | | | | performed at [facility];[address] | | | | | | [address];[place] | | | | | | [address] | | | | + + + + + + | BUN/Creatin | 26Comment: POOR QUALITY | | EXTERNAL | | | ine Ratio | SPECIMEN FROM THE LINE | | LAB | | | | DRAW, CHARGES CREDITED, | | | | | | PATIENT REDRAWN.Testing | | | | | | performed at [facility];[address] | | | | | | [address];[place] | | | | | | [id number] ON 02/05 | | | | | | AT 1023: PREVIOUSLY | | | | | | REPORTED 27 | | | | + + + + + + | Estimated | >60Comment: GFR <60: | mL/min/1.73m2 | EXTERNAL | | | GFR | CHRONIC KIDNEY DISEASE, | | LAB | | | | IF FOUND OVER A 3 MONTH | | | | | | PERIOD.GFR <15: KIDNEY | | | | | | FAILURE.FOR | | | | | | AMERICANS, MULTIPLY THE | | | | | | CALCULATED GFR BY | | | | | | 1.210.Testing performed | | | | | | at [facility];[address] | | | | | | [facility];[place] [address] | | | | + + + + + + + + | Specimen | + + | Blood specimen | | (specimen) | + + + +---------+ + + | Performing | Address | City/State/Zipcode | Phone Number | | Organization | | | | + +---------+ + + | EXTERNAL LAB | | | | + +---------+ + + POC Glucose (02/06/2016 8:45 AM PDT) + + + + + + | Component | Value | Ref Range | Performed | Pathologist | | | | | At | Signature | + + + + + + | Glucose, | >400 (H)Comment: Testing | 65 - 99 mg/dL | EXTERNAL | | | Fingerstick | performed at [facility];[address] | | LAB | | | | [address];[place] | | | | | | [address] | | | | + + + + + + + + | Specimen | + + | | + + + +---------+ + + | Performing | Address | City/State/Zipcode | Phone Number | | Organization | | | | + +---------+ + + | EXTERNAL LAB | | | | + +---------+ + + documented in this encounter Visit Diagnoses + + | Diagnosis | + + | Diabetic ketoacidosis without coma associated with type 2 diabetes mellitus (HCC) | + + documented in this encounter
--- OUTSIDE RECORDS SUMMARY | ~2020-04-12 | XMS | Encounter Summary ---
Demographics + + + | Address | [address] | | | [place] [address] | + + + | Home Phone | | + + + | Preferred Language | Unknown | + + + | Marital Status | Single | + + + | Holiness Affiliation | 1001 | + + + | Race | White | + + + | Ethnic Group | Not or | + + + Author + + + | Author | [facility] | | | and Ryana | + + + | Organization | [facility] | | | [...] Team Providers + +------+ + | Care Auger Machine Offbearer Name | Role | Phone | + +------+ + PCP | Unavailable | + +------+ + Encounter Details +--------+ + + + + | Date | Type | Department | Care Team | Description | +--------+ + + + + | 02/05/ | Hospital | [facility] IP | Conversion | Unknown cause of | | 2015 | Encounter | CONVERSION [address]P [address] | Transaction, | injury | | | | [address] | Provider Unknown | | | | | [place], [place] | | | | | | [phone] | (Fax) | | | | | [phone] | | | +--------+ + + + [...] +--------+ + + + | XR CHEST 1 VIEW | Routin | 02/06/2016 | | Results for this | | | e | 7:33 AM | | procedure are in the | | | | PDT | | results section. | + +--------+ + + + documented in this encounter Results XR Chest 1 Vw (02/06/2016 7:33 AM PDT) + + | Specimen | + + | | + + + + + | Narrative | Performed At | + + + | This is a non-reportable procedure without a radiologist report and | | | is used for image storage only | | + + + + + | Procedure Note | + + | Foreign Carl - 02/04/2019 7:45 PM PDT This is a non-reportable procedure | | without a radiologist report and isused for image storage only | + + documented in this encounter Visit Diagnoses + + | Diagnosis | + + | Unknown cause of injury Unspecified accident | + + documented in this encounter"
--- OUTSIDE RECORDS SUMMARY | ~2020-04-12 | XMS | Encounter Summary ---
Demographics + + + | Address | [address] | | | [place] [address] | + + + | Home Phone | | + + + | Preferred Language | Unknown | + + + | Marital Status | Single | + + + | Jew Affiliation | [id number] | + + + | Race | White | + + + | Ethnic Group | Not or | + + + Author + + + | Author | [facility] | | | and Ryana | + + + | Organization | [facility] | | [...] Team Providers + +------+ + | Care Audio Visual Collections Coordinator Name | Role | Phone | + +------+ + | Shavon Covington | PCP | | + +------+ + Reason for Visit +--------+ + | Reason | Comments | +--------+ + | Nausea | 10 min | +--------+ + | Emesis | 10 min | +--------+ + Auth/Cert +--------+--------+ + + + + | Status | Reason | Specialty | Diagnoses / | Referred By | Referred To | | | | | Procedures | Contact | Contact | +--------+--------+ + + + + | | | | Diagnoses | | | | | | | Diabetic | | | | | | | ketoacidosis | | | | | | | without | | | | | | | coma | | | | | | | associated | | | | | | | with type 1 | | | | | | | diabetes | | | | | | | mellitus | | | | | | | ([facility]) | | | +--------+--------+ + + + + Encounter Details +--------+ + + + + | Date | Type | Department | Care Team | Description | +--------+ + + + + | 05/01/ | Hospital | [facility] | Venkatesh Gomez, | Diabetic | | 2017 - | Encounter | [facility] | [address] | ketoacidosis without | | | | [address] | [facility] [place] | coma associated | | 05/03/ | | [place] [id number] | [place] [id number] | with type 1 diabetes | | 2017 | | [phone] | [phone] | mellitus (HCC) | | | | | | (Primary Dx) | | | | | Juanjose Ross MD | | | | | | [address] | | | | | | [place], [place] | | | | | | [address] | | | | | | | | | | | | Kevin Gifford MD | | | | | | [address] | | | | | | [place], [place] | | | | | | [address] | | | | | | | | +--------+ + + + [...] + + + | Blood Pressure | 115/76 | 05/03/2017 7:52 AM | | | | | PST | | + + + + + | Pulse | 83 | 05/03/2017 10:43 AM | | | | | PST | | + + + + + | Temperature | 36.7 C (98 F) | 05/03/2017 7:52 AM | | | | | PST | | + + + + + | Respiratory Rate | 16 | 05/03/2017 10:43 AM | | | | | PST | | + + + + + | Oxygen Saturation | 100% | 05/03/2017 10:43 AM | | | | | PST | | + + + + + | Inhaled Oxygen | - | - | | | Concentration | | | | + + + + + | Weight | 59.1 kg (130 lb 4.7 | 05/02/2017 1:42 AM | | | | oz) | PST | | + + + + + | Height | 177.8 cm (5' 10") | 05/02/2017 1:42 AM | | | | | PST | | + + + + + | Body Mass Index | 18.69 | 05/02/2017 1:42 AM | | | | | PST | | + + + + + documented in this encounter Functional Status + + + + | Functional Status | Response | Date of Assessment | + + + + | Are you deaf or do you have serious | No | 05/03/2017 | | difficulty hearing? | | | + + + + | Are you blind or do you have serious | No | 05/03/2017 | | difficulty seeing, even when wearing | | | | glasses? | | | + + + + | Do you have serious difficulty walking or | No | 05/03/2017 | | climbing stairs? (5 years old or older) | | | + + + + | Do you have difficulty dressing or bathing? | No | 05/03/2017 | | (5 years old or older) | | | + + + + | Because of a physical, mental, or emotional | No | 05/03/2017 | | condition, do you have difficulty [...] physical, mental, or emotional | No | 05/03/2017 | | condition, do you have serious difficulty | | | | concentrating, remembering, or making | | | | decisions? (5 years old or older) | | | + + + + documented as of this encounter Discharge Summaries Kevin Gifford MD - 05/03/2017 11:48 AM PSTFormatting of this note might be different fro m the original. [place] HOSPITALIST DISCHARGE SUMMARY Pt. Name/Age/: Joni Kwon 36 y.o. 1980 Date of Admission: 05/01/2017 Date of Discharge: 05/03/2017 Admitting Physician: Juanjose Ross MD Primary Care Provider: DENIS Paul Discharging Physician: Kevin Gifford MD DISCHARGE DIAGNOSES: Active Hospital Problems Diagnosis Diabetic ketoacidosis without coma associated with type 1 diabetes mellitus Resolved Hospital Problems Diagnosis No resolved problems to display. DISCHARGE MEDICATIONS: Discharge Medications New Medications Details Ambulatory Compound Builder Needle tips that fit Humalog Kwikpen and Lantus Solostar Uses 5 needles a day Ambulatory Compound Builder Stips for Contour Next glucometer disp 100 test 4 times a day Changed Medications Details insulin glargine 100 units/mL injection (pen) Inject 25 Units under the skin nightly. What changed: how much to take aka: LANTUS SOLOSTAR insulin lispro 100 units/mL injection (pen) Inject 5 Units under the skin 3 times daily (with meals). What changed: when to take this additional instructions aka: humaLOG KWIKPEN insulin lispro 100 units/mL injection (pen) MODERATE CORRECTION SCALE: Blood Glucose (BG) < 150: None BG 150-200: DAY : 2 units. NIGHT: 0 units BG 201-250: DAY: 4 units. NIGHT: 2 units BG 251-300: DAY : 6 units. NIGHT: 4 units BG 301-350: DAY: 8 units. NIGHT: 5 units BG 351-400: DAY : 10 units. NIGHT: 6 units BG > 400 : DAY: 12 units. NIGHT: 8 units CALL PROVIDER i f above 400 DAY for meals and NIGHT for bedtime What changed: You were already taking a medication with the same name, and this prescripti on was added. Make sure you understand how and when to take each. aka: humaLOG AMPARO Unchanged Medications Details albuterol 90 mcg/puff inhaler Inhale 2 puffs into the lungs EVERY 4 TO 6 HOURS NEEDED for Wheezing. Alternative Med Lists (all with hard stops if not reconciled) 1 Dot DCMEDSSUMMARY (for discharge summary) 2 Dot DCMEDSDCRA (signed & held med orders with a discharge readmit phase of care) 3 Dot DCMEDSSNF (intended for SNF transfers) 4 Dot DCMEDSWITHREADMIT (preferred for all discharge summaries as it includes 1 & 2 above u sing 1 for most discharges but 2 when there is and order for discharge readmit) HOSPITAL COURSE: Please refer to the H&P for full details and the most recent rounding rounding (progress) n ote. Active Hospital Problems Diagnosis Diabetic ketoacidosis without coma associated with type 1 diabetes mellitus 10th resolved and switching to his usual with NPH bridge this morning, he admits was renaldo rodas out of needles used lesser dose Lantus says has insurance coverage and uses [facility] has haydee garcia living at [facility] past month and not have his glucometer so guessses how mu ch humalog to use 11th upped regimen earlier and doing better ready for discharge From Prior note ADHD Hx of depression vs bipolar depression had been in a state hospital and says was intolerant of antipsychotic meds Hx of chronic chest pain since age 16 Still smokes cigs and MJ 11th he says smokes MJ to point of stupor and nows that is a bad idea Resolved Hospital Problems Diagnosis No resolved problems to display. (dot meyaddendum tdnorefesh nownorefresh) (dot meyvent) (dot malnutattest is attestation for malnutrition) Plan Changed regimen to match what he says at home He says has pens of each insulin (and vials) Has new glucometer (Contour Next) and will need needles for his pens uses [facility] will hav e RN also give needles and pens used here (at least 50 needles) LIves at [facility] Most recent weight: Input and output for last 24hrs: Wt Readings from Last 1 Encounters: 05/02/17 59.1 kg (130 lb 4.7 oz) I/O last 24 Hours: In: 3600 [P.O.:3600] Out: 1300 [Urine:1300] Vitals Ranges: Temp: [35.9 C (96.6 F)-36.7 C (98 F)] 36.7 C (98 F) Pulse: [72-91] 83 Resp: [16-28] 16 BP: (100-130)/(61-82) 115/76 Vitals: Temp: 36.7 C (98 F) BP: 115/76 Pulse: 83 Resp: 16 SpO2: 100 % SpO2 100 % on room air at flow rate L/min PHYSICAL EXAM: Patient seen and examined by me on discharge day PROCEDURES AND CONSULTS: PENDING RESULTS: DISPOSITION AND DISCHARGE INSTRUCTIONS: Condition: Patient being discharged with condition improved Call your PCP office on Friday make sure you have followup appt and refills on file at drug store Dr Gifford did Rx the drug store needles for the insulin pens and test strips for the glucome ter Currently using the Insulin pens (you told Dr Gifford you have both pens and vials of your in sulins) Healthy eating Check sugars before meals and use the insulin instructions and call your PCP for fine tunin g Greater than 30 minutes were spent on discharge and coordination of post-hospital care. (timothy ahmadi) Electronically signed by: Kevin Gifford MD, 05/03/2017 11:48 [facility] Reference. This is NOT part of the patient's formal assessment section. In the assessment or plan section of notes the author may date some of the subsections with a number such as "" or "23" to indicate the date of that entry or event. In the example below the 1st line is the original entry and the subsequent lines indicate flowing updates to the subsection: Example assessment subsection (such as CHF or CP or Pneumonia) Patient is improved today with resolution of symptoms th Worse with recurrence of symptoms requiring further testing Portions of this chart may have been created with [employer] voice recognition software. Occasi onal wrong-word or sound-alike substitutions may have occurred due to the inherent renee itations of voice recognition software. Please read the chart carefully and recognize, using context, where these substitutions have occurred documented in this en counter Discharge Instructions Instructions Kevin Gifford MD - 05/03/2017Call your PCP office on Friday make sure you h ave followup appt and refills on file at drug store Dr Gifford did Rx the drug store needles for the insulin pens and test strips for the glucome ter Currently using the Insulin pens (you told Dr Gifford you have both pens and vials of your in sulins) Healthy eating Check sugars before meals and use the insulin instructions and call your PCP for rangel rodas AttachmentsThe following attachments cannot be sent through Care Everywhere.Diabetes, Diet (Lithuanian)Diabetes, General Information (Lithuanian)Diabetes, Healthy Meals for (Lithuanian)Diabete s, Meal Planning (Lithuanian)Diabetes: Shopping for and Preparing Meals (Lithuanian)documented in this encounter Medications at Time of [...] + + + +---------+ + + | Ambulatory | Needle tips that fit | 100 | 0 | 05/03/20 | | | Compound Builder | Shara Bergman and | Device | | 17 | 9 | | | Lantus Solostar | | | | | | | Uses 5 needles a day | | | | | + + + +---------+ + + | Ambulatory | Stips for Contour | 100 | 0 | 05/03/20 | | | Compound Builder | Next glucometer disp | Device | | 17 | 9 | | | 100 test 4 times a | | | | | | | day | | | | | + + + +---------+ + + | insulin glargine | Inject 25 Units | | 0 | 05/03/20 | | | (LANTUS SOLOSTAR) | under the skin every | | | 17 | 9 | | 100 units/mL | morning. | | | | | | injection (pen) | | | | | | + + + +---------+ + + | insulin lispro | Inject 5 Units under | | 0 | 05/03/20 | | | (HUMALOG KWIKPEN) | the skin 3 times | | | 17 | 9 | | 100 units/mL | daily (with meals). | | | | | | injection (pen) | | | | | | + + + +---------+ + + | insulin lispro | MODERATE CORRECTION | | 0 | 05/03/20 | | | (HUMALOG KWIKPEN) | SCALE: Blood | | | 17 | 9 | | 100 units/mL | Glucose (BG) < 150: | | | | | | injection (pen) | None | | | | | | | BG 150-200: DAY: 2 | | | | | | | units. NIGHT: 0 | | | | | | | units BG 201-250: | | | | | | | DAY: 4 units. | | | | | | | NIGHT: 2 units BG | | | | | | | 251-300: DAY: 6 | | | | | | | units. NIGHT: 4 | | | | | | | units BG 301-350: | | | | | | | DAY: 8 units. | | | | | | | NIGHT: 5 units BG | | | | | | | 351-400: DAY: 10 | | | | | | | units. NIGHT: 6 | | | | | | | units BG > 400 | | | | | | | : DAY: 12 units. | | | | | | | NIGHT: 8 units CALL | | | | | | | PROVIDER if above | | | | | | | 400 DAY for meals | | | | | | | and NIGHT for | | | | | | | bedtime | | | | | + + + +---------+ + + documented as of this encounter Progress Notes Kevin Gifford MD - 05/03/2017 11:27 AM PSTFormatting of this note might be different fro m the original. [place], [place] HOSPITALIST PROGRESS NOTE Patient: Joni Kwon : 1980: Age: 36 y.o. MedRec: [id number] PCP: DENIS Paul Admission date: 05/01/2017 Hospital day # : 1 Physician author: Kevin Gifford MD Today: 05/03/2017 Allergies: Allergies Allergen Reactions Haloperidol Swelling Shellfish Swelling Insulin Detemir Swelling Risperidone Other (See Comments) "sleeps too long" Current Medications: Current Facility-Administered Medications Medication Dose Route Frequency Provider Last Rate Last Dose acetaminophen (TYLENOL) tablet 650 mg 650 mg Oral Q4H PRN Juanjose Ross MD 650 mg a t 05/03/17 1028 albuterol 2.5 mg/3 mL nebulizer solution 2.5 mg 2.5 mg Nebulization RT 4X DAILY PRN St gary Ross MD 2.5 mg at 05/02/171954 dextrose 50% injection 12.5 g 12.5 g Intravenous PRN Juanjose Ross MD insulin glargine (LANTUS SOLOSTAR) 100 units/mL injection (pen) 25 Units 25 Units Subc utaneous Nightly Kevin Gifford MD insulin lispro (humaLOG KWIKPEN) 100 units/mL injection (pen) 0-12 Units 0-12 Units Mix bcutaneous 4x Daily WC and HS Kevin Gifford MD 2 Units at 05/03/17 0827 insulin lispro (humaLOG KWIKPEN) 100 units/mL injection (pen) 5 Units 5 Units Subcutan eous TID WC Kevin Gifford MD 5 Units at 05/03/17 0827 nicotine polacrilex (COMMIT) lozenge 2 mg 2 mg Oral Q1H PRN Juanjose Ross MD 2 mg a t 05/03/17 1033 ondansetron (ZOFRAN) injection 4 mg 4 mg Intravenous Q6H PRN Juanjose Ross MD Current Infusions: Objective Data Hematology and anemia Recent Labs Lab 05/03/1764405/02/1735405/01/172256 WBC 5.2 7.3 5.3 HGB 13.8 13.4* 15.4 HCT 37.5* 36.3* 44.8 PLT 218 230 259 NEUPCT -- -- 63.3 MONPCT -- -- 9.6 No results for input(s): PROTIME, INR, PTT in the last 168 hours. No results for input(s): IRON, TIBC, PCTSAT, FERRITIN, TSH, [id number], FOLATE in the last 168 hours. Inflammatory markers No results for input(s): LACTATE, PROCALCITONI, CRP, ESR in the last 168 hours. Chemistry Recent Labs Lab 05/03/1764405/02/1735405/02/1720605/01/172256 GLU 177* 159* 370* 986* NA 135* 140 132* 125* K 3.7 3.6 3.6 4.7 CL 106 104 96* 86* CO2 26 31 26 23* ANIONGAP 3 5 10 16 BUN 8 14 16 21* CREA 0.71 0.72 1.08 1.25 GFRNONAA >60 >60 >60 >60 CALCIUM 8.3 8.8 8.9 9.4 ALBUMIN -- -- -- 3.9 TOTALPROTEIN -- -- -- 6.1 BILITOT -- -- -- 1.5 ALKPHOS -- -- -- 128* ALT -- -- -- 31 AST -- -- -- 50* Recent Labs Lab 05/01/17 225 MG 2.2 No results for input(s): AMYLASE, LIPASE in the last 168 hours. No results for input(s): TRIG, CHOL, HDL, LDL in the last 168 hours. No results for input(s): AMMONIA in the last 168 hours. Cardiology & Digoxin No results for input(s): TROPONIN, CK, CKMB, BNP, DIGOXIN in the last 168 hours. Invalid input(s): CKTOTAL ABG Recent Labs Lab 05/01/17 2347 BEART -3.0* Recent Labs Lab 05/01/17 2347 SPECSOURCE Vein PHPOCB 7.377 PCO2 37.1 PO2 57.1* HCO3 21.8 TCO2 22.9 BEART -3.0* [id number] 89* Drug of overdose and abuse Recent Labs Lab 05/01/17 2257 ALCOHOL <5 Recent Labs Lab 05/02/17 0011 AMPHEQUAL Negative BARBITURATE Negative BENZSCR Negative CANNIBSCR Positive* AMPHETAMINE Negative METHADSCR Negative OPIATESCR Negative Urinalysis Recent Labs Lab 05/02/17 0008 GLUCOSEU >=500 mg/dL* WBCUA 0-2 RBCUA 0-2 SQUAMEPIUA 0-2 BACTERIAUA Negative Point of care glucose Recent Labs Lab 05/02/17 2341 05/02/17 2147 05/02/17 1611 05/02/17 1115 05/02/17 0756 05/02/17 0504 POCGLU 387* 528* 273* 322* 224* 208* Micro results (more choices using dot micro) Microbiology Results (72 hrs) Procedure Component Value Units Date/Time Culture, MRSA [[id number]] Collected: 05/02/17 0202 Order Status: Completed Lab Status: Final result Updated: 05/03/17 08 Specimen: Respiratory from Nares Culture Negative for MRSA by chromogenic agar method 2+ Staphylococcus coagulase positive Radiology results (more choices using dot risresults) No results found. Serial weights: Filed Weights: 05/01/17 2252 05/02/17 0142 Weight: 61.2 kg (135 lb) 59.1 kg (130 lb 4.7 oz) Most recent weight: Input and output 2 shifts and 3 shifts: Wt Readings from Last 1 Encounters: 05/02/17 59.1 kg (130 lb 4.7 oz) I/O last 24 Hours: In: 3600 [P.O.:3600] Out: 1300 [Urine:1300] I/O last 3 completed shifts: In: 4608.5 [P.O.:3800; I.V.:808.5] Out: 1875 [Urine:1875] Vitals Ranges: Temp: [35.9 C (96.6 F)-36.7 C (98 F)] 36.7 C (98 F) Pulse: [72-91] 83 Resp: [16-28] 16 BP: (100-130)/(61-82) 115/76 Vitals: Temp: 36.7 C (98 F) BP: 115/76 Pulse: 83 Resp: 16 SpO2: 100 % SpO2 100 % on room air at flow rate L/min (dot meyvent) Subjective CC DKA admit No GI upset Has new meter and says has insulin not needles ROS See above Exam General Alert NAD Cardiac RRR Extremities Lung clear not labored Abdominal + BS soft NT Neuro alert fluent (dot meyexam) Assessment and Hospital Course (dot meyprob vs meyprobap) Active Hospital Problems Diagnosis Diabetic ketoacidosis without coma associated with type 1 diabetes mellitus 10th resolved and switching to his usual with NPH bridge this morning, he admits was renaldo g out of needles used lesser dose Lantus says has insurance coverage and uses [facility] has b een living at [facility] past month and not have his glucometer so guessses how mu ch humalog to use 11th upped regimen earlier and doing better ready for discharge From Prior note ADHD Hx of depression vs bipolar depression had been in a state hospital and says was intolerant of antipsychotic meds Hx of chronic chest pain since age 16 Still smokes cigs and MJ 11th he says smokes MJ to point of stupor and nows that is a bad idea Resolved Hospital Problems Diagnosis No resolved problems to display. (dot meyaddendum tdnorefesh nownorefresh) (dot meyvent) (dot malnutattest is attestation for malnutrition) Plan Changed regimen to match what he says at home He says has pens of each insulin (and vials) Has new glucometer (Contour Next) and will need needles for his pens uses [facility] will hav e RN also give needles and pens used here (at least 50 needles) LIves at [facility] (dot meyaddendum tdnorefesh nownorefresh) (dot meytime meycritical meysign) Kevin Gifford MD 05/03/2017 11:27 [facility] Reference. This is NOT part of the patient's formal assessment section. In the assessment or plan section of notes the author may date some of the subsections with a number such as "" or "23" to indicate the date of that entry or event. In the example below the 1st line is the original entry and the subsequent lines indicate flowing updates to the subsection: Example assessment subsection (such as CHF or CP or Pneumonia) Patient is improved today with resolution of symptoms 24th Worse with recurrence of symptoms requiring further testing Portions of this chart may have been created with [employer] voice recognition software. Occasi onal wrong-word or sound-alike substitutions may have occurred due to the inherent renee itations of voice recognition software. Please read the chart carefully and recognize, using context, where these substitutions have occurred ol, Cody Young [facility] - 05/02/2017 4:32 PM PST PHARMACY SERVICES: ADMISSION MEDICATION REVIEW Joni Kwon is a 36 y.o. male admitted on 05/01/17. Patient is not a reliable historian. Location of Patient when reviewed: ED Medical Floor Patient s prior to admit medication and over the counter (OTC) medications/herbal supplem ents list obtained from: X Verbal interview X Patient able to recall SOME Name, strength, and directions X Pharmacy list names: [facility] X Care Everywhere X Outside Information Vaccines up to date? Yes No Unsure Influenza x Pneumococcal x Tdap x Shingles Noted medications discrepancies or medication-related issues: Allergy Alerts: Allergy Added: Reaction: Medication(s) affected: Sertraline Patient stated "increased suicidal thoughts" Dosage change: Medication: Prior to Admission Sig: Correct sig: Insulin Glargine 100 units/mL inj 20 units under the skin nightly 18 units under the skin n ightly Recreational Substances , Tobacco & Alcohol use : Drug: Route Frequency: Last Used: Tobacco Smoke 8-10 rolled cigarettes daily Alcohol "Rarely" Marijuana smoke Daily to every other day Other: Medication: Prior to Admission Sig: Patient taking differently 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 MedRec: [id number] PCP: DENIS Paul Admission date: 05/01/2017 Hospital day # : 0 Physician author: Kevin Gifford MD Today: 05/02/2017 Allergies: Allergies Allergen Reactions Haloperidol Swelling Insulin Detemir Swelling Risperidone Other (See Comments) "sleeps too long" Current Medications: Current Facility-Administered Medications Medication Dose Route Frequency Provider Last Rate Last Dose acetaminophen (TYLENOL) tablet 650 mg 650 mg Oral Q4H PRN Juanjose Ross MD albuterol 2.5 mg/3 mL nebulizer solution 2.5 mg 2.5 mg Nebulization RT 4X DAILY PRN St gary Ross MD dextrose 50% injection 12.5 g 12.5 g Intravenous PRN Juanjose Ross MD insulin glargine (LANTUS SOLOSTAR) 100 units/mL injection (pen) 18 Units 18 Units Subc utaneous Nightly Kevin Gifford MD insulin lispro (humaLOG KWIKPEN) 100 units/mL injection (pen) 0-6 Units 0-6 Units Subc utaneous 4x Daily WC and HS Kevin Gifford MD insulin lispro (humaLOG KWIKPEN) 100 units/mL injection (pen) 3 Units 3 Units Subcutan eous TID WC Kevin Gifford MD insulin NPH (humuLIN N, novoLIN N) injection 10 Units 10 Units Subcutaneous Once Daniel wesley Gifford MD nicotine polacrilex (COMMIT) lozenge 2 mg 2 mg Oral Q1H PRN Juanjose Ross MD ondansetron (ZOFRAN) injection 4 mg 4 mg Intravenous Q6H PRN Juanjose Ross MD Current Infusions: Objective Data Hematology and anemia Recent Labs Lab 11/04/08 35505/01/172256 WBC 7.3 5.3 HGB 13.4* 15.4 HCT 36.3* 44.8 PLT 230 259 NEUPCT -- 63.3 MONPCT -- 9.6 No results for input(s): PROTIME, INR, PTT in the last 168 hours. No results for input(s): IRON, TIBC, PCTSAT, FERRITIN, TSH, [id number], FOLATE in the last 168 hours. Inflammatory markers No results for input(s): LACTATE, PROCALCITONI, CRP, ESR in the last 168 hours. Chemistry Recent Labs Lab 05/02/1735405/02/1720605/01/172256 GLU 159* 370* 986* NA 140 132* 125* K 3.6 3.6 4.7 CL 104 96* 86* CO2 31 26 23* ANIONGAP 5 10 16 BUN 14 16 21* CREA 0.72 1.08 1.25 GFRNONAA >60 >60 >60 CALCIUM 8.8 8.9 9.4 ALBUMIN -- -- 3.9 TOTALPROTEIN -- -- 6.1 BILITOT -- -- 1.5 ALKPHOS -- -- 128* ALT -- -- 31 AST -- -- 50* Recent Labs Lab 05/01/172256 MG 2.2 No results for input(s): AMYLASE, LIPASE in the last 168 hours. No results for input(s): TRIG, CHOL, HDL, LDL in the last 168 hours. No results for input(s): AMMONIA in the last 168 hours. Cardiology & Digoxin No results for input(s): TROPONIN, CK, CKMB, BNP, DIGOXIN in the last 168 hours. Invalid input(s): CKTOTAL ABG Recent Labs Lab 05/01/17 2347 BEART -3.0* Recent Labs Lab 05/01/172346 SPECSOURCE Vein PHPOCB 7.377 PCO2 37.1 PO2 57.1* HCO3 21.8 TCO2 22.9 BEART -3.0* [id number] 89* Drug of overdose and abuse Recent Labs Lab 05/01/172256 ALCOHOL <5 Recent Labs Lab 05/02/17 0011 AMPHEQUAL Negative BARBITURATE Negative BENZSCR Negative CANNIBSCR Positive* AMPHETAMINE Negative METHADSCR Negative OPIATESCR Negative Urinalysis Recent Labs Lab 05/02/17 0008 GLUCOSEU >=500 mg/dL* WBCUA 0-2 RBCUA 0-2 SQUAMEPIUA 0-2 BACTERIAUA Negative Point of care glucose Recent Labs Lab 05/02/17 0504 05/02/17 0354 05/02/17 0258 05/02/17 0208 05/02/17 0048 05/01/17 2250 POCGLU 208* 163* 212* 371* >600* >600* Micro results (more choices using dot micro) Microbiology Results (72 hrs) Procedure Component Value Units Date/Time Culture, MRSA [[id number]] Collected: 05/02/17201 Order Status: Sent Lab Status: In process Updated: 05/02/17211 Specimen: Respiratory from [facility] Radiology results (more choices using dot risresults) No results found. Serial weights: Filed Weights: 05/01/17 2252 05/02/17 0142 Weight: 61.2 kg (135 lb) 59.1 kg (130 lb 4.7 oz) Most recent weight: Input and output 2 shifts and 3 shifts: Wt Readings from Last 1 Encounters: 05/02/17 59.1 kg (130 lb 4.7 oz) No intake/output data recorded. No intake/output data recorded. Vitals Ranges: Temp: [35.7 C (96.3 F)-36.8 C (98.2 F)] 35.7 C (96.3 F) Pulse: [73-88] 74 Resp: [16-42] 42 BP: (100-147)/(64-103) 100/69 Vitals: Temp: 35.7 C (96.3 F) BP: 100/69 Pulse: 74 Resp: (!) 42 SpO2: 96 % SpO2 96 % on room air at flow rate L/min (dot meyvent) Subjective CC DKA admit Better with no N/V nor SOB ROS See above Exam General Alert NAD Cardiac RRR Extremities Lung clear not labored Abdominal + BS soft NT Neuro alert fluent (dot meyexam) Assessment and Hospital Course (dot meyprob vs meyprobap) Active Hospital Problems Diagnosis Diabetic ketoacidosis without coma associated with type 1 diabetes mellitus 10th resolved and switching to his usual with NPH bridge this morning, he admits was renaldo rodas out of needles used lesser dose Lantus says has insurance coverage and uses [facility] has b eetyler living at [facility] past month and not have his glucometer so guessses how mu ch humalog to use From Prior note ADHD Hx of depression vs bipolar depression had been in a state [facility] and says was intolerant of antipsychotic meds Hx of chronic chest pain since age 16 Still smokes cigs and MJ Resolved Hospital Problems Diagnosis No resolved problems to display. (dot meyaddendum tdnorefesh nownorefresh) (dot meyvent) (dot malnutattest is attestation for malnutrition) Plan Changed regimen to match what he says at home Needs new glucometer and will need needles for his pens uses [facility] LIves at [facility] (dot meyaddendum tdnorefesh nownorefresh) (dot meytime meycritical meysign) Kevin Gifford MD 05/02/2017 6:48 [facility] Reference. This is NOT part of the patient's formal assessment section. In the assessment or plan section of notes the author may date some of the subsections with a number such as "23" or "23" to indicate the date of that entry or event. In the example below the 1st line is the original entry and the subsequent lines indicate flowing updates to the subsection: Example assessment subsection (such as CHF or CP or Pneumonia) 23 Patient is improved today with resolution of symptoms 24th Worse with recurrence of symptoms requiring further testing Portions of this chart may have been created with [employer] voice recognition software. Occasi onal wrong-word or sound-alike substitutions may have occurred due to the inherent renee itations of voice recognition software. Please read the chart carefully and recognize, using context, where these substitutions have occurred documented in this en counter H&P Notes Juanjose Ross MD - 05/02/2017 1:06 AM PST [facility] HISTORY AND PHYSICAL Pt. Name/Age/: Joni Kwon 36 y.o. 1980 Date of admission: 05/01/2017 Admitting Physician: Juanjose Ross MD Primary Care Provider: DENIS Paul CHIEF COMPLAINT: Nausea and emesis HISTORY OF PRESENT ILLNESS: This is a 36 y.o. male with a past medical history significant for diabetes mellitus type I who presents with nausea and emesis. Patient states the symptoms started today. He state s that he took his Lantus the night prior to this admission. Patient states that his Lantus administration has been less as he is running out of needles. He denies fevers or chills. PAST MEDICAL and SURGICAL HISTORY: Past Medical History: Diagnosis Date ADHD (attention deficit hyperactivity disorder) Depression Unclear of major depression vs bipolar depression Diabetes mellitus (HCC) Type 1 diabetes Schizophrenia (HCC) Past Surgical History: Procedure Laterality Date TONSILLECTOMY FAMILY HISTORY: family history includes Diabetes in his maternal grandfather and maternal grandmother. SOCIAL HISTORY: reports that he has been smoking Cigarettes. He has been smoking about 0.50 packs per day . He has never used smokeless tobacco. He reports that he drinks alcohol. He reports that he uses drugs, including Marijuana, about 3 times per week. REVIEW OF SYSTEMS: All systems were reviewed and were negative unless otherwise stated in HPI HOME MEDICATIONS: Current Discharge Medication List CONTINUE these medications which have NOT CHANGED Details albuterol 90 mcg/puff inhaler Inhale 2 puffs into the lungs every 6 hours as needed for Whe ezing. insulin glargine (LANTUS) 100 units/mL injection (vial) Inject 20 Units under the skin nigh tly. Qty: 10 mL, Refills: 11 insulin lispro (HUMALOG) 100 units/mL injection (vial) Inject 5 Units under the skin 3 time s daily (before meals). Plus sliding scale Qty: 10 mL, Refills: 11 ALLERGIES: Allergies Allergen Reactions Haloperidol Swelling Insulin Detemir Swelling Risperidone Other (See Comments) "sleeps too long" VITAL SIGNS: Temp: 36.8 C (98.2 F), Pulse: 81, Resp: 19, BP: 117/82, SpO2 97 % on room air at flow r ate L/min Temp Min: 35.9 C (96.6 F) Max: 36.8 C (98.2 F) Weight: 61.2 kg (135 lb) PHYSICAL EXAMINATION: Gen Scott - alert, cooperative and no distress Head - Normocephalic, without obvious abnormality, atraumatic Eyes - PERRL, conjunctiva/corneas clear, EOM's intact both eyes ENT - mucous membranes moist Neck - supple Lungs - CTA bilat Heart - normal rate, rhythm w/o m/r/g Abdomen - obese Normoactive bowel sounds, non-tender non-distended Extremities - no peripheral edema, no clubbing or cyanosis Skin - dry skin, abrasions of varying ages on both shins Neurologic - Alert and oriented x 3. CN II-XII intact. strength- 5/5 throughout Refl exes 2+ bilateral biceps, triceps, & patellar DIAGNOSTIC STUDIES: Available data and images were reviewed personally. Significant results and findings are a ddressed here or in the Assessment and Plan. Lab Results Component Value Date HGB 15.4 05/01/2017 HCT 44.8 05/01/2017 PLT 259 05/01/2017 WBC 5.3 05/01/2017 Lab Results Component Value Date NA 125 (L) 05/01/2017 K 4.7 05/01/2017 CL 86 (L) 05/01/2017 CO2 23 (L) 05/01/2017 CREA 1.25 05/01/2017 BUN 21 (H) 05/01/2017 MG 2.2 05/01/2017 PHOS 3.3 10/03/2016 Glucose, POC Date/Time Value Ref Range Status 05/02/2017 00:48 >600 (HH) 70 - 109 mg/dL Final 05/01/2017 22:50 >600 (HH) 70 - 109 mg/dL Final 04/19/2017 11:29 542 (H) 70 - 109 mg/dL Final No results found. EKG: Reviewed independently by me. The tracing shows ASSESSMENT and PLAN: Active Hospital Problems Diagnosis Diabetic ketoacidosis without coma associated with type 1 diabetes mellitus Resolved Hospital Problems Diagnosis No resolved problems to display. DKA without coma: Insulin gtt per DKA protocol. give IV fluids IV fluids. Hyponatremia: Likely related to volume depletion and hyperglycemia. We will ke ep patient nothing by mouth DVT Prophylaxis Ambulation Code Status Full Code CMS Documentation I certify that this admission will likely be greater than 2 midnights and posthospital disc harge will be to home Total of 74 minutes were required to complete the admission process. Electronically signed by: Juanjose Ross MD 05/02/2017 2:07 [facility] documented in this enc ounter Consult Notes Ursula Haskins RN - 05/02/2017 8:21 AM PSTAssociated Order(s): IP CONSULT TO DIABETES SPEC IALISTProvided patient with a Contour Next glucometer starter kit. He tells me he has strip s but needs needles for his insulin pen. He states that his insurance pays for them but he needs to pick them up at the pharmacy. I asked if he had transportation to be able to pick them up and he said that he did. When questioned about the events that led up to this hospi talization he said that because he is homeless and staying at the [facility] somet imes his meals are unpredictable. They provide 2 meals a day and he says he eats the third meal at the soup kitchen or finds something else on his own. He tells me when he starts hav ing symptoms of high blood sugar he does not want to come to the hospital unless it's really serious. I stressed the importance of checking his blood sugar regularly and taking his in sulin as well as coming to the hospital immediately if his blood sugars are above 400. He st ates "I've received plenty of education, I know what I need to do". Patient was pleasant an d receptive to discussing his diabetes. I left my contact information with him and asked heath t he call me if he ran out of his diabetes supplies so that I could try to help.Electronical ly signed by Ursula Haskins RN at 05/02/2017 8:32 AM PSTdocumented in this encounter ED Notes Venkatesh Gomez MD - 05/01/2017 10:55 PM PSTFormatting of this note might be different f rom the original. [facility] Joni Brown Doyle Emergency Department Encounter Note [address] [place] [id number] PCP:Shavon Covington, TEXTURING MACHINE FIXER [phone] CHIEF COMPLAINT Chief Complaint Patient presents with Nausea 10 min Emesis 10 min HPI Joni Kwon is a 36 y.o. male who presents to the emergency department with naus ea and vomiting. This patient has developed nausea and vomiting tonight. He came to the ER for evaluation. He states he was using his insulin today. He has had some cold symptoms. He has been to our ER before. He is a known type I diabetic. He has a history of schizoph ronal. He denies shortness of breath. No diarrhea. He is homeless. PAST MEDICAL HISTORY Past Medical History: Diagnosis Date ADHD (attention deficit hyperactivity disorder) Depression Unclear of major depression vs bipolar depression Diabetes mellitus (HCC) Type 1 diabetes Schizophrenia ([facility]) SURGICAL HISTORY Past Surgical History: Procedure Laterality Date TONSILLECTOMY CURRENT MEDICATIONS Current Discharge Medication List CONTINUE these medications which have NOT CHANGED Details albuterol 90 mcg/puff inhaler Inhale 2 puffs into the lungs every 6 hours as needed for Whe ezing. insulin glargine (LANTUS) 100 units/mL injection (vial) Inject 20 Units under the skin nigh tly. Qty: 10 mL, Refills: 11 insulin lispro (HUMALOG) 100 units/mL injection (vial) Inject 5 Units under the skin 3 time s daily (before meals). Plus sliding scale Qty: 10 mL, Refills: 11 ALLERGIES Allergies Allergen Reactions Haloperidol Swelling Insulin [...] Smoker Packs/day: 0.50 Types: Cigarettes Smokeless tobacco: Never Used Alcohol use Yes Comment: occassionally Drug use: Frequency: 3.0 times per week Types: Marijuana Sexual activity: Not Asked Other Topics Concern None Social History Narrative None REVIEW OF SYSTEMS All systems reviewed and found negative except what is in the HPI PHYSICAL EXAM VITAL SIGNS: BP (!) 147/103 | Pulse 81 | Temp 35.9 C (96.6 F) (Oral) | Resp 16 | H t 1.778 m (5' 10") | Wt 61.2 kg (135 lb) | SpO2 97% | BMI 19.37 kg/m Constitutional: Thin male, laying on his side, answers questions, acute distress, Non-toxi c appearance. HENT: Normocephalic, Atraumatic, Bilateral external ears normal, Tympanic membranes normal , Mucous membranes are moist, Nasal mucosa is normal. Mucous membranes are dry Eyes: PERRL, EOMI, Conjunctiva normal, No discharge. Palpebral conjunctiva are pink. Neck: Normal range of motion, No tenderness, Supple, No stridor. Respiratory: Clear to auscultation bilaterally, No respiratory distress, No wheezing Chest: Non tender, no signs of trauma Cardiovascular: Normal heart rate, Normal rhythm GI: Soft, Non tenderness, No peritoneal signs, No masses Extremities: Warm and well perfused, no edema, no joint swelling or deformity. Good ROM. Back: No CVAT, No tenderness of the thoracic or lumbar spine. Skin: Warm, Dry, No erythema, No induration, No rash. Neurologic: Alert & oriented x 3, No focal motor or sensory deficits. Speech is clear. G ait is normal. ED COURSE & MEDICAL DECISION MAKING Pertinent Labs & Imaging studies reviewed. (See chart for details) The patient was seen and examined shortly after arriving in the emergency department. Hist ory and physical were obtained, vital signs were noted. Blood glucose monitor in the ER rafael ds "high". This patient has mild DKA. He is homeless. He was started on insulin drip and IV fluid hydration. I discussed his care with the hospitalist. He is being admitted for fu rther care. FINAL IMPRESSION 1. Diabetic ketoacidosis without coma associated with type 1 diabetes mellitus (HCC) PLAN Admit to Dr Vandana Gomez MD 05/02/17 0634 Alejandro Salinas RN - 05/01/2017 10:51 PM PSTPt has had dry mouth, nausea and vomiting for the last 10 min since waking from a nap. Pt states he's insulin dependant diabetic. Pt has no way of checking h is glucose levels. docu mented in this encounter Miscellaneous Notes Plan of Care - Mavis Chavez RN - 05/03/2017 12:52 PM PSTProblem: Patient Care Overview (Adult) Goal: Care Team Goals & Evaluation PROBLEM-RELATED GOALS: 1. Joni will have breath sounds consistent with baseline function throughout stay and r everse airway bronchospasm when indicated. Reevaluate goal by 05/07/17. 2. Pt will maintain controlled blood sugars by 05/04/17. STRATEGY TO ACHIEVE GOALS: - Administer respiratory medications as ordered - Monitor blood sugars and administer meds as needed per order. RESTRAINT-RELATED GOALS: STRATEGIES TO ACHIEVE RESTRAINT GOALS: Outcome: Adequate for Discharge Date Met: 05/03/17 Goal Evaluation: Pt cooperative with cares this shift. Pt has flat affect when speaking with RN and answeri ng questions. Pt is cooperative with taking ordered insulin dose. Monitoring Bs, pt tolerati ng meals well and following diet restrictions. Pt up walking around unit and in room indept without and issues. Discharge orders received, RN discussed orders with pt and medication. P t given extra needles for insulin pens and taking pens used while here at hospital. Pt able to repeat orders and teaching. Pt he is going back to jail today, mother is planning to c ome pick him up shortly. IV removed. Pt has all paperwork. Will continue to monitor. Call [facility] within reach. lan of Care - Dayo Negron RRT - 05/03/2017 9:56 AM PSTProblem: Patient Care Overview (Adult) Goal: Care Team Goals & Evaluation PROBLEM-RELATED GOALS: 1. Joni will have breath sounds consistent with baseline function throughout stay and r everse airway bronchospasm when indicated. Reevaluate goal by 05/07/17. 2. Pt will maintain controlled blood sugars by 05/04/17. STRATEGY TO ACHIEVE GOALS: - Administer respiratory medications as ordered - Monitor blood sugars and administer meds as needed per order. RESTRAINT-RELATED GOALS: STRATEGIES TO ACHIEVE RESTRAINT GOALS: Goal Evaluation: Patient doing well respiratory hua. BS clear, Sats 98% on room air. Taken only 2 prn neb treatments since admit. Will continue to follow. lan of Care - Mary Anne Monroe RRT - 05/02/2017 8:25 PM PSTProblem: Patient Care Overview (Adult) Goal: Care Team Goals & Evaluation PROBLEM-RELATED GOALS: 1. Joni will have breath sounds consistent with baseline function throughout stay and r everse airway bronchospasm when indicated. Reevaluate goal by 05/07/17. 2. Pt will maintain controlled blood sugars by 05/04/17. STRATEGY TO ACHIEVE GOALS: - Administer respiratory medications as ordered - Monitor blood sugars and administer meds as needed per order. RESTRAINT-RELATED GOALS: STRATEGIES TO ACHIEVE RESTRAINT GOALS: Goal Evaluation: Kamari's room air SpO2 97%, requested PRN nebulizer treatment with expiratory wheezes noted po st treatment, congested sounding cough, peak flow 400 pre and post with no change noted alth ough patient states treatment is helpful. lan of Care - Mavis Borges RN - 05/02/2017 4:32 PM PSTProblem: Patient Care Overview (Adult) Goal: Care Team Goals & Evaluation PROBLEM-RELATED GOALS: 1. Joni will have breath sounds consistent with baseline function throughout stay and r everse airway bronchospasm when indicated. Reevaluate goal by 05/07/17. 2. Pt will maintain controlled blood sugars by 05/04/17. STRATEGY TO ACHIEVE GOALS: - Administer respiratory medications as ordered - Monitor blood sugars and administer meds as needed per order. RESTRAINT-RELATED GOALS: STRATEGIES TO ACHIEVE RESTRAINT GOALS: Outcome: Improving Goal Evaluation: Pt transferred from ICU this shift. Pt alert and oriented able to make needs known. Pt den ies any pain at time of assessment. Able to ambulate to BR with out assist. Steady gait note d. Scabs noted on shins. Pt states to be a smoker, exp wheezing noted. Denies SOB. Monitorin g BS at 1600 was 273 will administer insulin as order. Pt using call light. Bed alarm in mikala ce for safety. Call light within reach. Will continue to monitor. eICU Note - Elmira Metcalf RN - 05/02/2017 3:20 PM PSTPatient transferred to room 318. Report given to Hanny JAMES. lan of [facility] [place] - Shawna, Kavita Cervantes RN - 05/02/2017 12:28 PM PSTProblem: Discharge Planning Goal: Patient will be discharged in a safe manner Outcome: Improving This CM met with patient to discuss his d/c plan. He has been staying at the [facility] for about 1/2 month and is allowed to stay there until 05/11. He uses the bus line for transport since he has no car and is homeless. He only uses a little alcohol at times since he knows this is not good for his diabetes. He also uses marijuana at times too. Some friends came to visit him this noon time. He states that his PCP, is DENIS Diallo, at the walk in clinic in [place], and that it has been 2 months ago that he has seen her. He does not wish this CM to make an appt sin e he is not sure when he could get there. He is working with [email or web address] in [place] to find housing. Assisted him to leave a message t here with his payee, Lauren Damonacruz, at [email or web address], p# [phone]. He also requested that t his CM contact his mother to let her know that he is here and that he wishes to talk with he r. Called [phone], and spoke with Ms Kwon, and let her know that Kamari was here and she wanted to know what room he was in, so will either call or come and visit him today. Called Ursula, Senior Maintenance Mechanic, and she brought up some pen tips for patient and also a glu cometer with 10 strips. Let him know that his mother will either call or visit him today. Went over the" Where to go for Help" brochure with patient and highlighted the resources fo r meals and pantry's. He really appreciated this information. He will just be walking back to the [facility] at discharge. CM to follow for any further discharge needs.Electronically signed by: Patricia Matos RN 2016 12:28 lan of [facility] [place] - Dayo Negron RRT - 05/02/2017 11:54 AM PSTProblem: Patient Care Overview (Adult) Goal: Care Team Goals & Evaluation PROBLEM-RELATED GOALS: 1. Joni will have breath sounds consistent with baseline function throughout stay and r everse airway bronchospasm when indicated. Reevaluate goal by 05/07/17. STRATEGY TO ACHIEVE GOALS: - Administer respiratory medications as ordered RESTRAINT-RELATED GOALS: STRATEGIES TO ACHIEVE RESTRAINT GOALS: Goal Evaluation: Patient doing well. Sating 99% on room air. BS: distant end expiratory wheezes, asked for prn neb. PEF 340 pre, 400 post. Aeration increased with treatment. Nonproductive cough. lan of Ursula Woods RN - 05/02/2017 8:33 AM PSTProblem: Diabetes, Type 1 (Adult) Prevent and manage potential problems includin. diabetic ketoacidosis (DKA)2. impaired g lycemic control3. hypoglycemia4. situational response Goal: Signs and Symptoms of Listed Potential Problems Will be Absent or Manageable (Diabete s, Type 1) Signs and symptoms of listed potential problems will be absent or manageable by discharge/t ransition of care (reference Diabetes, Type 1 (Adult) CPG). Outcome: Improving See inpatient consult completed today. lan of Dacia Aguayo RN - 05/02/2017 6:32 AM PSTAdmit w DKA, on insulin gtt, BS trended down to 159 , all gtts off, changed to medical/surgical status, awaiting something to eat. Dr. Gifford now managing orders. russ of Yuli Stanton RRT - 05/02/2017 3:23 AM PSTProblem: Patient Care Overview (A dult) Goal: Care Team Goals & Evaluation PROBLEM-RELATED GOALS: 1. Joni will have breath sounds consistent with baseline function throughout stay and r everse airway bronchospasm when indicated. Reevaluate goal by 05/07/17. STRATEGY TO ACHIEVE GOALS: - Administer respiratory medications as ordered RESTRAINT-RELATED GOALS: STRATEGIES TO ACHIEVE RESTRAINT GOALS: Goal Evaluation: remains on room air, no respiratory distress/sob noted, no prn tx needed. bs appear clear documented in this en counter Plan of Treatment + +------+--------+ + + | Name | Type | Priori | Associated Diagnoses | Date/Time | | | | ty | | | + +------+--------+ + + | ED INFORMATION | KELLY | Routin | | 05/01/2017 10:50 PM | | EXCHANGE | | e | | PST | + +------+--------+ + + documented as of this encounter Procedures + +--------+ + + + | Procedure Name | Priori | Date/Time | Associated Diagnosis | Comments | | | ty | | | | + +--------+ + + + | POC GLUCOSE | Routin | 05/03/2017 | | Results for this | | | e | 11:47 AM | | procedure are in the | | | | PST | | results section. | + +--------+ + + + | CBC NO DIFFERENTIAL | Routin | 05/03/2017 | | Results for this | | | e | 6:45 AM | | procedure are in the | | | | PST | | results section. | + +--------+ + + + | BASIC METABOLIC | Routin | 05/03/2017 | | Results for this | | PANEL | e | 6:45 AM | | procedure are in the | | | | PST | | results section. | + +--------+ + + + | POC GLUCOSE | Routin | 05/02/2017 | | Results for this | | | e | 11:41 PM | | procedure are in the | | | | PST | | results section. | + +--------+ + + + | POC GLUCOSE | Routin | 05/02/2017 | | Results for this | | | e | 9:47 PM | | procedure are in the | | | | PST | | results section. | + +--------+ + + + | POC GLUCOSE | Routin | 05/02/2017 | | Results for this | | | e | 4:11 PM | | procedure are in the | | | | PST | | results section. | + +--------+ + + + | POC GLUCOSE | Routin | 05/02/2017 | | Results for this | | | e | 11:15 AM | | procedure are in the | | | | PST | | results section. | + +--------+ + + + | POC GLUCOSE | Routin | 05/02/2017 | | Results for this | | | e | 7:56 AM | | procedure are in the | | | | PST | | results section. | + +--------+ + + + | POC GLUCOSE | Routin | 05/02/2017 | | Results for this | | | e | 5:04 AM | | procedure are in the | | | | PST | | results section. | + +--------+ + + + | CBC NO DIFFERENTIAL | Routin | 05/02/2017 | | Results for this | | | e | 3:55 AM | | procedure are in the | | | | PST | | results section. | + +--------+ + + + | BASIC METABOLIC | Routin | 05/02/2017 | | Results for this | | PANEL | e | 3:55 AM | | procedure are in the | | | | PST | | results section. | + +--------+ + + + | BETA | Routin | 05/02/2017 | | Results for this | | HYDROXYBUTYRATE, | e | 3:54 AM | | procedure are in the | | QUANT | | PST | | results section. | + +--------+ + + + | POC GLUCOSE | Routin | 05/02/2017 | | Results for this | | | e | 3:54 AM | | procedure are in the | | | | PST | | results section. | + +--------+ + + + | POC GLUCOSE | Routin | 05/02/2017 | | Results for this | | | e | 2:58 AM | | procedure are in the | | | | PST | | results section. | + +--------+ + + + | POC GLUCOSE | Routin | 05/02/2017 | | Results for this | | | e | 2:08 AM | | procedure are in the | | | | PST | | results section. | + +--------+ + + + | BASIC METABOLIC | STAT | 05/02/2017 | | Results for this | | PANEL | | 2:07 AM | | procedure are in the | | | | PST | | results section. | + +--------+ + + + | CULTURE, MRSA | Routin | 05/02/2017 | | Results for this | | | e | 2:02 AM | | procedure are in the | | | | PST | | results section. | + +--------+ + + + | POC GLUCOSE | Routin | 05/02/2017 | | Results for this | | | e | 12:48 AM | | procedure are in the | | | | PST | | results section. | + +--------+ + + + | DRUGS OF ABUSE, | Add-On | 05/02/2017 | | Results for this | | SCREEN, URINE | | 12:11 AM | | procedure are in the | | | | PST | | results section. | + +--------+ + + + | URINALYSIS WITH | STAT | 05/02/2017 | | Results for this | | MICROSCOPIC WITH | | 12:08 AM | | procedure are in the | | CULTURE IF INDICATED | | PST | | results section. | + +--------+ + + + | POC BLOOD GASES | Routin | 05/01/2017 | | Results for this | | | e | 11:47 PM | | procedure are in the | | | | PST | | results section. | + +--------+ + + + | BETA | Routin | 05/01/2017 | | Results for this | | HYDROXYBUTYRATE, | e | 10:57 PM | | procedure are in the | | QUANT | | PST | | results section. | + +--------+ + + + | CBC WITH | STAT | 05/01/2017 | | Results for this | | DIFFERENTIAL | | 10:57 PM | | procedure are in the | | | | PST | | results section. | + +--------+ + + + | MAGNESIUM | STAT | 05/01/2017 | | Results for this | | | | 10:57 PM | | procedure are in the | | | | PST | | results section. | + +--------+ + + + | ALCOHOL | Add-On | 05/01/2017 | | Results for this | | | | 10:57 PM | | procedure are in the | | | | PST | | results section. | + +--------+ + + + | COMPREHENSIVE | STAT | 05/01/2017 | | Results for this | | METABOLIC PANEL | | 10:57 PM | | procedure are in the | | | | PST | | results section. | + +--------+ + + + | ED INFORMATION | Routin | 05/01/2017 | | | | EXCHANGE | e | 10:50 PM | | | | | | PST | | | + +--------+ + + + +---+--------+ | | | | | Proced | | | ure | | | Note - | | | Scottie, | | | Lab In | | | | | | Hlseve | | | n - | | | | | | 2016 | | | 10:51 | | | PM PST | | | | | | Format [...] | | | FICATI | | | ON? | | | | | | 7 | | | 22:47? | | | DOYLE | | | , | | | BENJAM | | | IN | | | J?MRN: | | | | | | [id number] | | | [id number] | | | his | | | [...] | | | ee2b | | | Securi | | | ty | | | Events | | | Date | | | Locati | | | on | | | Type | | | Specif | | | ics | | | 10/4/1 | | | 7 9:58 | | | PM | | | [facility] | | | al | | | [facility] | | | ent | | | Patien | | | t | | | eloped | | | | | | before | | | | | | treatm | | | ent | | | comple | | | eleno. | | | Detail | | | s: | | | LWBS | | | Securi | | | ty | | | Events | | | (18 | | | Mo.) | | | Count | | | Elopem | | | ent 1 | | | Total | | | 1 ED | | | Care | | | Guidel | | | mayela | | | from | | | [facility] | [facility] | | | alLast | | | | | | Update | | | d: | | | 10/19/ | | | 17 | | | [...] | | | int | | | Nov 9, | | | 2017 | | | [facility] | | | ence | | | [facility] | | | [facility] [place] | | | [place] | | | Emerge | | | ncy | | | Emerge | | | ncy | | | | | | Emesis | | | Oct | | | [...] | | h pain | | | | | | High | | | Blood | | | Sugar | | | (Sympt | | | omatic | | | ) | | | Type 1 | | | | | | diabet | | | es | | | mellit | | | us | | | with | | | hyperg | | | lycemi | | | a | | | Long | | | term | | | (curre | | | nt) | | | use of | | | | | | insuli | | | n | | | Chest | | | pain, | | | unspec | | | ified | | | | | | Type 2 | | | | | | diabet | | | es | | | mellit | | | us | | | withou | | | t | | | compli | | | cation | | | s | | | Nausea | | | [...] | | | int | | | | | | Proced [...] | | | er | | | Oct | | | [...] | | | [facility] | | | [facility] | y [facility] | | [...] | | | [facility] | | [facility] | | y [facility] | | [...] | | | St[facility] | | | [facility] | | | y H. | | [...] | | | St[facility] | | | [facility] | | | y H. | | [...] | | | St. | | | [facility] | | | y H. | | [...] | | | Center | | | 8 0 | | | [facility] | | | Hospit | | | al 11 | | | 0 | | | Total | | | 19 0 | | | Note: | | [...] | | visits | | | . PDMP | | | | | | Report | | | [...] | | | ext. | | | [id number] | | | or go | | [...] | | | [facility] | | | [place] | | | [place] | | | [...] | [email or web address] | | | | +---+--------+ + +--------+ +---+ + | POC GLUCOSE | Routin | 05/01/2017 | | Results for this | | | e | 10:50 PM | | procedure are in the | | | | PST | | results section. | + +--------+ +---+ + documented in this encounter Results POC Glucose (05/03/2017 11:47 AM PST) + +---------+ + + + | Component | Value | Ref Range | Performed | Pathologist | | | | | At | Signature | + +---------+ + + + | Glucose, | 228 (H) | 70 - 109 mg/dL | [facility] | | | POC | | | [...] [address] | [place] | [phone] | | [facility] | | [address] | | | - LABORATORY | | | | + + + + + CBC no Differential (05/03/2017 6:45 AM PST) + + + + + + | Component | Value | Ref Range | Performed | Pathologist | | | | | At | Signature | + + + + + + | White Blood | 5.2 | 4.0 - 11.0 K/uL | [facility] | | | Cells | | | [facility] | | | | | | [facility] | | | | | | CENTER - | | | | | | LABORATORY | | + + + + + + | Red Blood | 4.16 (L) | 4.30 - 5.70 | [facility] | | | Cells | | M/uL | [facility] | | | | | | MEDICAL | | | | | | CENTER - | | | | | | LABORATORY | | + + + + + + | Hemoglobin | 13.8 | 13.5 - 18.0 | [facility] | | | | | g/dL | [facility] | | | | | | MEDICAL | | | | | | CENTER - | | | | | | LABORATORY | | + + + + + + | Hematocrit | 37.5 (L) | 40.0 - 51.0 % | [facility] | | | | | | [facility] | | | | | | [facility]ICAL | | | | | | CENTER - | | | | | | LABORATORY | | + + + + + + | MCV | 90.2 | 83.0 - 101.0 fL | [facility] | | | | | | [facility] | | | | | | MEDICAL | | | | | | CENTER - | | | | | | LABORATORY | | + + + + + + | MCH | 33.1 | 28.0 - 35.0 pg | [facility] | | | | | | [facility] | | | | | | [facility] | | | | | | CENTER - | | | | | | LABORATORY | | + + + + + + | MCHC | 36.7 (H) | 32.0 - 36.0 | [facility] | [...] + + + + | Platelet | 218 | 140 - 440 K/uL | [facility] | | | Count | | | [facility] | | | | | | MEDICAL | | | | | | CENTER - | | | | | | LABORATORY | | + + + + + + | MPV | 7.8 | fL | [facility] | | | [...] + | [facility] | [address] | [place] | [phone] | | [facility] | | [address] | | | - LABORATORY | | | | + + + + + Basic Metabolic Panel (05/03/2017 6:45 AM PST) + + + + + + | Component | Value | Ref Range | Performed | Pathologist | | | | | At | Signature | + + + + + + | Na | 135 (L) | 136 - 149 | [facility] | | | | | mmol/L | [facility] | | | | | | MEDICAL | | | | | | CENTER - | | | | | | LABORATORY | | + + + + + + | K | 3.7 | 3.5 - 5.1 | [facility] | | | | | mmol/L | [facility] | | | | | | MEDICAL | | | | | | CENTER - | | | | | | LABORATORY | | + + + + + + | Cl | 106 | 98 - 109 mmol/L | [facility] [...] + + + | Anion Gap | 3 | 3 - 16 mmol/L | [facility] | | | | | | [facility] | | | | | | MEDICAL | | | | | | CENTER - | | | | | | LABORATORY | | + + + + + + | Glucose | 177 (H) | 70 - 109 mg/dL | [facility] | | | | | | [facility] | | | | | | MEDICAL | | | | | | CENTER - | | | | | | LABORATORY | | + + + + + + | BUN | 8 | 7 - 18 mg/dL | [facility] | | | | | | [facility] | | | | | | MEDICAL | | | | | | CENTER - | | | | | | LABORATORY | | + + + + + + | Creatinine | 0.71 | 0.60 - 1.30 | [facility] | | | | | mg/dL | [facility] | | [facility] | | | MEDICAL | | | | | | CENTER - | | | | | | LABORATORY | | + + + + + + | eGFR, | >60Comment: GLOMERULAR | >=60 | [facility] | | | non- | FILTRATION | mL/min/1.73m2 | [facility] | | | Filipino | RATE,ESTIMATED | | MEDICAL | | | | mL/min/1.02h8Ufhk than | | CENTER - | | [...] + + + + | Calcium | 8.3 | 8.3 - 10.5 | [facility] | | | | | mg/dL | [facility] | | | | | | MEDICAL | | | | | | CENTER - | | | | | | LABORATORY | | + + + + + + | BUN/Creatin | 11.3 | | [facility] | | | ine [address] | [place] | [phone] | | [facility] | | [address] | | | - LABORATORY | | | | + + + + + POC Glucose (05/02/2017 11:41 PM PST) + +---------+ + + + | Component | Value | Ref Range | Performed | Pathologist | | | | | At | Signature | + +---------+ + + + | Glucose, | 387 (H) | 70 - 109 mg/dL | [...] + | [facility] | [address] | [place] | [phone] | | [facility] | | [address] | | | - LABORATORY | | | | + + + + + POC Glucose (05/02/2017 9:47 PM PST) + +---------+ + + + | Component | Value | Ref Range | Performed | Pathologist | | | | | At | Signature | + +---------+ + + + | Glucose, | 528 (H) | 70 - 109 mg/dL | [facility] | | | POC | | | [facility] | | | | | | [...] + | [facility] | [address] | [place] | [phone] | | [facility] | | [address] | | | - LABORATORY | | | | + + + + + POC Glucose (05/02/2017 4:11 PM PST) + +---------+ + + + | Component | Value | Ref Range | Performed | Pathologist | | | | | At | Signature | + +---------+ + + + | Glucose, | 273 (H) | 70 - 109 mg/dL | [...] ST. | [address] | [place], [place] | [phone] | | [facility] | | [address] | | | - LABORATORY | | | | + + + + + POC Glucose (05/02/2017 11:15 AM PST) + +---------+ + + + | Component | Value | Ref Range | Performed | Pathologist | | | | | At | Signature | + +---------+ + + + | Glucose, | 322 (H) | 70 - 109 mg/dL | [facility] | | | POC | | | [facility] | | | | | | [...] + + | [facility] | [address] | [place] | [phone] | | [facility] | | [address] | | | - LABORATORY | | | | + + + + + POC Glucose (05/02/2017 7:56 AM PST) + +---------+ + + + | Component | Value | Ref Range | Performed | Pathologist | | | | | At | Signature | + +---------+ + + + | Glucose, | 224 (H) | 70 - 109 mg/dL | [...] | + + + + + | [facility] | [address] | [place] | [phone] | | [facility] | | [address] | | | - LABORATORY | | | | + + + + + POC Glucose (05/02/2017 5:04 AM PST) + +---------+ + + + | Component | Value | Ref Range | Performed | Pathologist | | | | | At | Signature | + +---------+ + + + | Glucose, | 208 (H) | 70 - 109 mg/dL | [facility] | | | POC | | | [...] + | [facility] | [address] | [place], [place] | [phone] | | [facility] | | [address] | | | - LABORATORY | | | | + + + + + CBC no Differential (05/02/2017 3:55 AM PST) + + + + + + | Component | Value | Ref Range | Performed | Pathologist | | | | | At | Signature | + + + + + + | White Blood | 7.3 | 4.0 - 11.0 K/uL | [facility] | | | Cells | | | [facility] | | | | | | MEDICAL | | | | | | CENTER - | | | | | | LABORATORY | | + + + + + + | Red Blood | 4.06 (L) | 4.30 - 5.70 | [facility] | | | Cells | | M/uL | [facility] | | | | | | MEDICAL | | | | | | CENTER - | | | | | | LABORATORY | | + + + + + + | Hemoglobin | 13.4 (L) | 13.5 - 18.0 | [facility] | | | | | g/dL | [facility] | | | | | | MEDICAL | | | | | | CENTER - | | | | | | LABORATORY | | + + + + + + | Hematocrit | 36.3 (L) | 40.0 - 51.0 % | [facility] | | | | | | [facility] | | | | | | MEDICAL | | | | | | CENTER - | | | | | | LABORATORY | | + + + + + + | MCV | 89.5 | 83.0 - 101.0 fL | [facility] | | | | | | [facility] | | | | | | MEDICAL | | | | | | CENTER - | | | | | | LABORATORY | | + + + + + + | MCH | 33.1 | 28.0 - 35.0 pg | [facility] | | | | | | [facility] | | | | | | MEDICAL | | | | | | CENTER - | | | | | | LABORATORY | | + + + + + + | MCHC | 37.0 (H) | 32.0 - 36.0 | [facility] | | | | | g/dL | [facility] | | | | | | MEDICAL | | | | | | CENTER - | | | | | | LABORATORY | | + + + + + + | RDW-CV | 13.1 | <15.0 % | [facility] | | | | | | [facility] | | | | | | MEDICAL | | | | | | CENTER - | | | | | | LABORATORY | | + + + + + + | Platelet | 230 | 140 - 440 K/uL | [facility] | | | Count | | | [facility] | | | | | | MEDICAL | | | | | | CENTER - | | | | | | LABORATORY | | + + + + + + | MPV | 7.1 | fL | [facility] | | | [...] + | [facility] | [address] | [place] | [phone] | | [facility] | | [address] | | | - LABORATORY | | | | + + + + + Basic Metabolic Panel (05/02/2017 3:55 AM PST) + + + + + + | Component | Value | Ref Range | Performed | Pathologist | | | | | At | Signature | + + + + + + | Na | 140 | 136 - 149 | [facility] | | | | | mmol/L | [facility] | | | | | | MEDICAL | | | | | | CENTER - | | | | | | LABORATORY | | + + + + + + | K | 3.6 | 3.5 - 5.1 | [facility] | | | | | mmol/L | [facility] | | | | | | MEDICAL | | | | | | CENTER - | | | | | | LABORATORY | | + + + + + + | Cl | 104 | 98 - 109 mmol/L | [facility] | | | | | | [facility] | | | | | | MEDICAL | | | | | | CENTER - | | | | | | LABORATORY | | + + + + + + | CO2 | 31 | 24 - 31 mmol/L | [facility] [...] + + + + | Glucose | 159 (H) | 70 - 109 mg/dL | [...] + + + + | Creatinine | 0.72 | 0.60 - 1.30 | [facility] | | | | | mg/dL | [facility] | | | | | | MEDICAL | | | | | | CENTER - | | | | | | LABORATORY | | + + + + + + | eGFR, | >60Comment: GLOMERULAR | >=60 | [facility] | | | non- | FILTRATION | mL/min/1.73m2 | [facility] | | | Filipino | RATE,ESTIMATED | | MEDICAL | | | | mL/min/1.49o9Sqgf than | | CENTER - | | [...] + + + + | Calcium | 8.8 | 8.3 - 10.5 | [facility] | | | | | mg/dL | [facility] | | | | | | MEDICAL | | | | | | CENTER - | | | | | | LABORATORY | | + + + + + + | BUN/Creatin | 19.4 | | [facility] | | | ine [address] | [place] | [phone] | | [facility] | | [address] | | | - LABORATORY | | | | + + + + + POC Glucose (05/02/2017 3:54 AM PST) + +---------+ + + + | Component | Value | Ref Range | Performed | Pathologist | | | | | At | Signature | + +---------+ + + + | Glucose, | 163 (H) | 70 - 109 mg/dL | [...] [address] | [place] | [phone] | | [facility] | | [address] | | | - LABORATORY | | | | + + + + + Beta Hydroxybutyrate, Quant (05/02/2017 3:54 AM PST) + + + + + + | Component | Value | Ref Range | Performed | Pathologist | | | | | At | Signature | + + + + + + | Beta | 0.44 (H) | 0.02 - 0.27 | [facility] [...] | + + + + + | [facility] | [address] | [place] | [phone] | | [facility] | | [address] | | | - LABORATORY | | | | + + + + + POC Glucose (05/02/2017 2:58 AM PST) + +---------+ + + + | Component | Value | Ref Range | Performed | Pathologist | | | | | At | Signature | + +---------+ + + + | Glucose, | 212 (H) | 70 - 109 mg/dL | [...] [facility]. | [address] | [place], [place] | [phone] | | [facility] | | [address] | | | - LABORATORY | | | | + + + + + POC Glucose (05/02/2017 2:08 AM PST) + +---------+ + + + | Component | Value | Ref Range | Performed | Pathologist | | | | | At | Signature | + +---------+ + + + | Glucose, | 371 (H) | 70 - 109 mg/dL | [...] | + + + + + | [facility] | [address] | [place] | [phone] | | [facility] | | [address] | | | - LABORATORY | | | | + + + + + Basic Metabolic Panel (05/02/2017 2:07 AM PST) + + + + + + | Component | Value | Ref Range | Performed | Pathologist | | | | | At | Signature | + + + + + + | Na | 132 (L) | 136 - 149 | [facility] | | | | | mmol/L | [facility] | | | | | | MEDICAL | | | | | | CENTER - | | | | | | LABORATORY | | + + + + + + | K | 3.6 | 3.5 - 5.1 | [facility] | | | | | mmol/L | [facility] | | | | | | MEDICAL | | | | | | CENTER - | | | | | | LABORATORY | | + + + + + + | Cl | 96 (L) | 98 - 109 mmol/L | [...] + + + | Anion Gap | 10 | 3 - 16 mmol/L | [facility] | | | | | | [facility] | | | | | | MEDICAL | | | | | | CENTER - | | | | | | LABORATORY | | + + + + + + | Glucose | 370 (H) | 70 - 109 mg/dL | [facility] | | | | | | [facility] | | | | | | MEDICAL | | | | | | CENTER - | | | | | | LABORATORY | | + + + + + + | BUN | 16 | 7 - 18 mg/dL | [facility] | | | | | | [facility] | | | | | | MEDICAL | | | | | | CENTER - | | | | | | LABORATORY | | + + + + + + | Creatinine | 1.08 | 0.60 - 1.30 | [facility] | | | | | mg/dL | [facility] | | | | | | MEDICAL | | | | | | CENTER - | | | | | | LABORATORY | | + + + + + + | eGFR, | >60Comment: GLOMERULAR | >=60 | [facility] | | | non- | FILTRATION | mL/min/1.73m2 | [facility] | | | Filipino | RATE,ESTIMATED | | MEDICAL | | | | mL/min/1.87q4Lceu than | | CENTER - | | [...] + + + + | Calcium | 8.9 | 8.3 - 10.5 | [facility] | | | | | mg/dL | [facility] | | | | | | MEDICAL | | | | | | CENTER - | | | | | | LABORATORY | | + + + + + + | BUN/Creatin | 14.8 | | [facility] | | | ine [...] + + | [facility] | [address] | [place] | [phone] | | [facility] | | [address] | | | - LABORATORY | | | | + + + + + Culture, MRSA (05/02/2017 2:02 AM PST) + + + + + + | Component | Value | Ref Range | Performed | Pathologist | | | | | At | Signature | + + + + + + | Culture | Negative for MRSA by | | [facility] | | | | chromogenic agar method | | [facility] | | | | | | MEDICAL | | | | | | CENTER - | | | | | | LABORATORY | | + + + + + + | Culture | 2+ Staphylococcus | | [facility] | | | | coagulase positive | | [facility] | | | | | | MEDICAL | | | | | | CENTER - | | | | | | LABORATORY | | + + + + + + + + | Specimen | + + | Respiratory - Both | | anterior nares (body | | structure) | + + + + + + + | Performing | Address | City/State/Zipcode | Phone Number | | Organization | | | | + + + + + | [facility] | [address] | [place] | [phone] | | [facility] | | [address] | | | - LABORATORY | | | | + + + + + POC Glucose (05/02/2017 12:48 AM PST) + + + + + + | Component | Value | Ref Range | Performed | Pathologist | | | | | At | Signature | + + + + + + | Glucose, | >600 (HH) | 70 - 109 mg/dL | [facility] | | | POC | | | [...] + + | [facility] | [address] | [place] | [phone] | | [facility] | | [address] | | | - LABORATORY | | | | + + + + + Drugs of Abuse, Screen, Urine (05/02/2017 12:11 AM PST) + + + + + + | Component | Value | Ref Range | Performed | Pathologist | | | | | At | Signature | + + + + + + | Amphetamine | Negative | Negative | [facility] | | | Screen, | | | [facility] | | | Urine | | | MEDICAL | | | | | | CENTER - | | | | | | LABORATORY | | + + + + + + | Barbiturate | Negative | Negative | [facility] | | | s Screen, | | | [facility] | | | Urine | | | MEDICAL | | | | | | CENTER - | | | | | | LABORATORY | | + + + + + + | Benzodiazep | Negative | Negative | [facility] | | | mayela | | | [facility] | | | Screen, | | | MEDICAL | | | Urine | | | CENTER - | | | | | | LABORATORY | | + + + + + + | Cannabinoid | Positive (A) | Negative | [facility] | | | s Screen, | | | [facility] | | | Urine | | | MEDICAL | | | | | | CENTER - | | | | | | LABORATORY | | + + + + + + | Cocaine | Negative | Negative | [facility] | | | Screen, | | | [facility] | | | Urine | | | MEDICAL | | | | | | CENTER - | | | | | | LABORATORY | | + + + + + + | Methadone | Negative | Negative | [facility] | | | Screen, | | | [facility] | | | Urine | | | MEDICAL | | | | | | CENTER - | | | | | | LABORATORY | | + + + + + + | Opiates | Negative | Negative | [facility] | | | Screen, | | | [facility] | | | Urine | | | MEDICAL | | | | | | CENTER - | | | | | | LABORATORY | | + + + + + + + + | Specimen | + + | Urine | + + + + + + + | Performing | Address | City/State/Zipcode | Phone Number | | Organization | | | | + + + + + | [facility] | [address] | [place] | [phone] | | [facility] | | [address] | | | - LABORATORY | | | | + + + + + Urinalysis with Microscopic with Culture if Indicated (05/02/2017 12:08 AM PST) + + + + + + | Component | Value | Ref Range | Performed | Pathologist | | | | | At | Signature | + + + + + + | Color, | Colorless (A) | Light Yellow, | [facility] | | | Urine | | Yellow, Straw | [facility] | | | | | | MEDICAL | | | | | | CENTER - | | | | | | LABORATORY | | + + + + + + | Clarity, | Clear | Clear | [facility] | | | Urine | | | [facility] | | | | | | MEDICAL | | | | | | CENTER - | | | | | | LABORATORY | | + + + + + + | pH, Urine | 6.0 | 5.0 - 8.0 | [facility] | | | | | | [facility] | | | | | | MEDICAL | | | | | | CENTER - | | | | | | LABORATORY | | + + + + + + | Specific | 1.023 | 1.001 - 1.030 | [facility] | | | Wylie, | | | [facility] | | | Urine | | | MEDICAL | | | | | | CENTER - | | | | | | LABORATORY | | + + + + + + | Protein, | 30 mg/dL (A) | Negative | [facility] | | | Urine | | | [facility] | | | | | | MEDICAL | | | | | | CENTER - | | | | | | LABORATORY | | + + + + + + | Blood, | Negative | Negative | [facility] | | | Urine | | | [facility] | | | | | | MEDICAL | | | | | | CENTER - | | | | | | LABORATORY | | + + + + + + | Glucose, | >=500 mg/dL (A) | Negative | [facility] | | | Urine | | | [facility] | | | | | | MEDICAL | | | | | | CENTER - | | | | | | LABORATORY | | + + + + + + | Ketones, | 20 mg/dL (A) | Negative | [facility] | | | Urine | | | [facility] | | | | | | MEDICAL | | | | | | CENTER - | | | | | | LABORATORY | | + + + + + + | Bilirubin, | Negative | Negative | [facility] | | | Urine | | | [facility] | | | | | | MEDICAL | | | | | | CENTER - | | | | | | LABORATORY | | + + + + + + | Nitrite, | Negative | Negative | [facility] | | | Urine | | | [facility] | | | | | | MEDICAL | | | | | | CENTER - | | | | | | LABORATORY | | + + + + + + | Leukocyte | Negative | Negative | [facility] | | | Esterase, | | | [facility] | | | Urine | | | MEDICAL | | | | | | CENTER - | | | | | | LABORATORY | | + + + + + + | Urobilinoge | Negative | 0.2 mg/dL, 1.0 | [facility] | | | n, Urine | | mg/dL, Negative | [facility] | | | | | | MEDICAL | | | | | | CENTER - | | | | | | LABORATORY | | + + + + + + | White Blood | 0-2 | 0 - 2 /HPF | [facility] | | | Cells, | | | [facility] | | | Urine | | | MEDICAL | | | | | | CENTER - | | | | | | LABORATORY | | + + + + + + | Red Blood | 0-2 | 0 - 2 /HPF | [facility] | | | Cells, | | | [facility] | | | Urine | | | MEDICAL | | | | | | CENTER - | | | | | | LABORATORY | | + + + + + + | Squamous | 0-2 | 0 - 2 /LPF | [facility] | | | Epithelial | | | [facility] | | | Cells, | | | MEDICAL | | | Urine | | | CENTER - | | | | | | LABORATORY | | + + + + + + | Bacteria, | Negative | Negative /HPF | [facility] | | | Urine | | | [facility] | | | | | | MEDICAL | | | | | | CENTER - | | | | | | LABORATORY | | + + + + + + + + | Specimen | + + | Urine - Urine | | specimen obtained by | | clean catch | | procedure (specimen) | + + + + + + + | Performing | Address | City/State/Zipcode | Phone Number | | Organization | | | | + + + + + | [facility] | [address] | [place] | [phone] | | [facility] | | [id number] | | | - LABORATORY | | | | + + + + + POC Blood Gases (05/01/2017 11:47 PM PST) + + + + + + | Component | Value | Ref Range | Performed | Pathologist | | | | | At | Signature | + + + + + + | Specimen | Vein | | [facility] | | | Source | | | [facility] | | | | | | MEDICAL | | | | | | CENTER - | | | | | | LABORATORY | | + + + + + + | pH, POC | 7.377 | 7.3 - 7.45 | [facility] | | | | | | [facility] | | | | | | MEDICAL | | | | | | CENTER - | | | | | | LABORATORY | | + + + + + + | HCO3, POC | 21.8 | 21.0 - 28.0 | [facility] | | | | | mmol/L | [facility] | | | | | | MEDICAL | | | | | | CENTER - | | | | | | LABORATORY | | + + + + + + | TCO2, POC | 22.9 | 22.0 - 29.0 | [facility] | | | | | mmol/L | [facility] | | | | | | MEDICAL | | | | | | CENTER - | | | | | | LABORATORY | | + + + + + + | Base | -3.0 (L) | -2.0 - 3.0 | [facility] | | | Excess, POC | | mmol/L | [facility] | | | | | | MEDICAL | | | | | | CENTER - | | | | | | LABORATORY | | + + + + + + | Base | -3.4 (L) | -2.0 - 3.0 | [facility] | | | Excess, | | mmol/L | [facility] | | | Extracellul | | | MEDICAL | | | ar fluid, | | | CENTER - | | | POC | | | LABORATORY | | + + + + + + | O2 Sat, POC | 89 (L) | 90 - 100 % | [facility] | | | | | | [facility] | | | | | | MEDICAL | | | | | | CENTER - | | | | | | LABORATORY | | + + + + + + | PCO2, POC | 37.1 | 35.0 - 50.0 | [facility] | | | | | mmHg | [facility] | | | | | | MEDICAL | | | | | | CENTER - | | | | | | LABORATORY | | + + + + + + | pO2, POC | 57.1 (H) | 25.0 - 50.0 | [facility] | | | | | mmHg | [facility] | | | | | | [...] [address] | [place] | [phone] | | [facility] | | [id number] | | | - LABORATORY | | | | + + + + + Ethanol (05/01/2017 10:57 PM PST) + +-------+ + + + | Component | Value | Ref Range | Performed | Pathologist | | | | | At | Signature | + +-------+ + + + | ALCOHOL, | <5 | <400 mg/dL | [facility] | | | SERUM/PLASM | | | [facility] | | | A | | | MEDICAL | | | [...] + | [facility] | [address] | [place] | [phone] | | [facility] | | [address] | | | - LABORATORY | | | | + + + + + Beta Hydroxybutyrate, Quant (05/01/2017 10:57 PM PST) + + + + + + | Component | Value | Ref Range | Performed | Pathologist | | | | | At | Signature | + + + + + + | Beta | 5.03 (H) | 0.02 - 0.27 | [facility] | | | Hydroxybuty | | mmol/L | [facility] | | | rate | | [...] [address] | [place] | [phone] | | [facility] [facility] | | [address] | | | - LABORATORY | | | | + + + + + Magnesium (05/01/2017 10:57 PM PST) + +-------+ + + + | Component | Value | Ref Range | Performed | Pathologist | | | | | At | Signature | + +-------+ + + + | Magnesium | 2.2 | 1.8 - 2.5 mg/dL | [facility] | | | [facility] | [facility] [address] | [place] | [phone] | | [facility] | | [address] | | | - LABORATORY | | | | + + + + + Comprehensive Metabolic Panel (05/01/2017 10:57 PM PST) + + + + + + | Component | Value | Ref Range | Performed | Pathologist | | | | | At | Signature | + + + + + + | Na | 125 (L) | 136 - 149 | [facility] | | | | | mmol/L | [facility] | | | [facility] | [facility] | | | | | | C[facility] - | | | | | | LABORATORY | | + + + + + + | K | 4.7 | 3.5 - 5.1 | [facility] | [...] + + + + | CO2 | 23 (L) | 24 - 31 mmol/L | [facility] | | | | | | [facility] | | | | | | [facility] | | | | | | CENTER - | | | | | | LABORATORY | | + + + + + + | Anion Gap | 16 | 3 - 16 mmol/L | [facility] | | | | | | [facility] | | | | | | [facility] | | | | | | CENTER - | | | | | | LABORATORY | | + + + + + + | Glucose | 986 (HH)Comment: | 70 - 109 mg/dL | [facility] | | | | Critical Result called | | [facility] | | | | to and read back by Tommy | | MEDICAL | | | | Lila James on 05/01/2017 | | CENTER - | | | | at 23:32 by Karthik Vyas | | LABORATORY | | | | José Miguel. | | | | + + + + + + | BUN | 21 (H) | 7 - 18 mg/dL | [facility] | | | | | | [facility] | | | | | | [facility] | | | | | | CENTER - | | | | | | LABORATORY | | + + + + + + | Creatinine | 1.25 | 0.60 - 1.30 | [facility] | | | | | mg/dL | [facility] | | | | | | [facility] | | | | | | CENTER - | | | | | | LABORATORY | | + + + + + + | eGFR, | >60Comment: GLOMERULAR | >=60 | [facility] | | | non- | FILTRATION | mL/min/1.73m2 | [facility] | | | Filipino | RATE,ESTIMATED | | MEDICAL | | | | mL/min/1.55w8Qvhz than | | CENTER - | | [...] + + | Calcium | 9.4 | 8.3 - 10.5 | [facility] | | | | | mg/dL | [facility] | | | | | | [facility]ICAL | | | | | | CENTER - | | | | | | LABORATORY | | + + + + + + | Albumin | 3.9 | 3.2 - 5.0 g/dL | [facility] | | | | | | [facility] | | [facility] | | | [facility] | | | | | | CENTER - | | | | | | LABORATORY | | + + + + + + | Bilirubin | 1.5 | 0.1 - 1.5 mg/dL | [facility] | | | Total | | | [facility] | | | | | | [facility] | | | | | | CENTER - | | | | | | LABORATORY | | + + + + + + | Total | 6.1 | 6.0 - 7.8 g/dL | [facility] | | | Protein | | | [facility] | | | | | | [facility] | | | | | | CENTER - | | | | | | LABORATORY | | + + + + + + | AST | 50 (H) | 10 - 42 U/L | [facility] | | | | | | [facility] | | | | | | [facility] | | | | | | CENTER - | | | | | | LABORATORY | | + + + + + + | ALT | 31 | 6 - 45 U/L | [facility] | | | | | | [facility] | | | | | | [facility] | | | | | | CENTER - | | | | | | LABORATORY | | + + + + + + | Alkaline | 128 (H) | 40 - 110 U/L | [facility] | | | Phosphatase | | | [facility] | | | | | | MEDICAL | | | | | | CENTER - | | | | | | LABORATORY | | + + + + + + | Globulin | 2.2 | 2.1 - 3.8 g/dL | [facility] [...] + + + + | BUN/Creatin | 16.8 | | [facility] | | | ine [...] + + + + + | [facility] | [address] | [place] | [phone] | | [facility] | | [address] | | | - LABORATORY | | | | + + + + + CBC with Differential (05/01/2017 10:57 PM PST) + +-------+ + + + | Component | Value | Ref Range | Performed | Pathologist | | | | | At | Signature | + +-------+ + + + | White Blood | 5.3 | 4.0 - 11.0 K/uL | [facility] | | | Cells | | | [facility] | | | | | | [facility]ICAL | | | | | | CENTER - | | | | | | LABORATORY | | + +-------+ + + + | Red Blood | 4.73 | 4.30 - 5.70 | [facility] | | | Cells | | M/uL | [facility] | | | | | | [facility]ICAL | | | | | | CENTER - | | | | | | LABORATORY | | + +-------+ + + + | Hemoglobin | 15.4 | 13.5 - 18.0 | [facility] | | | | | g/dL | [facility] | | | | | | [facility]ICAL | | | | | | CENTER - | | | | | | LABORATORY | | + +-------+ + + + | Hematocrit | 44.8 | 40.0 - 51.0 % | [facility] | | | | | | [facility] | | | | | | [facility] | | | | | | CENTER - | | | | | | LABORATORY | | + +-------+ + + + | MCV | 94.8 | 83.0 - 101.0 fL | [facility] | | | | | | [facility] | | | | | | [facility]ICAL | | | | | | CENTER - | | | | | | LABORATORY | | + +-------+ + + + | MCH | 32.6 | 28.0 - 35.0 pg | [facility] | | | | | | [facility] | | | | | | [facility] | | | | | | CENTER - | | | | | | LABORATORY | | + +-------+ + + + | MCHC | 34.4 | 32.0 - 36.0 | [facility] | | | | | g/dL | [facility] | | | | | | MEDICAL | | | | | | CENTER - | | | | | | LABORATORY | | + +-------+ + + + | RDW-CV | 13.0 | <15.0 % | [facility] | | | | | | [facility] | | | | | | [facility] | | | | | | CENTER - | | | | | | LABORATORY | | + +-------+ + + + | Platelet | 259 | 140 - 440 K/uL | [facility] | | | Count | | | [facility] | | | | | | [facility]ICAL | | | | | | CENTER - | | | | | | LABORATORY | | + +-------+ + + + | MPV | 7.8 | fL | [facility] | | | | | | [facility] | | | | | | [facility] | | | | | | CENTER - | | | | | | LABORATORY | | + +-------+ + + + | % | 63.3 | 45.0 - 82.0 % | [facility] | | | Neutrophils | | | [facility] | | | | | | MEDICAL | | | | | | CENTER - | | | | | | LABORATORY | | + +-------+ + + + | % | 24.8 | 20.0 - 45.0 % | [facility] | | | Lymphocytes | | | [facility] | | | | | | MEDICAL | | | | | | CENTER - | | | | | | LABORATORY | | + +-------+ + + + | % Monocytes | 9.6 | 4.0 - 12.0 % | [facility] | | | | | | [facility] | | | | | | [facility] | | | | | | CENTER - | | | | | | LABORATORY | | + +-------+ + + + | % | 1.4 | 0.0 - 5.0 % | [facility] | | | Eosinophils | | | [facility] | | | | | | [facility] | | | | | | CENTER - | | | | | | LABORATORY | | + +-------+ + + + | % Basophils | 0.9 | 0.0 - 1.0 % | [facility] | | | | | | [facility] | | | | | | [facility] | | | | | | CENTER - | | | | | | LABORATORY | | + +-------+ + + + | Absolute | 3.40 | 1.80 - 8.50 | [facility] | | | Neutrophils | | K/uL | [facility] | [facility] | [facility] | | | | | | CENTER - | | | | | | LABORATORY | | + +-------+ + + + | Absolute | 1.30 | 0.60 - 3.20 | [facility] | | | Lymphocytes | | K/uL | [facility] | | | | | | MEDICAL | | | | | | CENTER - | | | | | | LABORATORY | | + +-------+ + + + | Absolute | 0.50 | 0.00 - 1.00 | [facility] | | | Monocytes | | K/uL | [facility] | | | | | | MEDICAL | | | | | | CENTER - | | | | | | LABORATORY | | + +-------+ + + + | Absolute | 0.10 | 0.00 - 0.40 | [facility] | | | Eosinophils | | K/uL | [facility] | | | | | | MEDICAL | | | | | | CENTER - | | | | | | LABORATORY | | + +-------+ + + + | Absolute | 0.00 | 0.00 - 0.10 | [facility] | | | Basophils | | K/uL | [facility] | | | | [...] [address] | [place] | [phone] | | [facility] | | [address] | | | - LABORATORY | | | | + + + + + POC Glucose (05/01/2017 10:50 PM PST) + + + + + + | Component | Value | Ref Range | Performed | Pathologist | | | | | At | Signature | + + + + + + | Glucose, | >600 (HH) | 70 - 109 mg/dL | [facility] [...] | + + + + + | [facility] | [address] | [place] | [phone] | | [facility] | | [address] | | | - LABORATORY | | | | + + + + + documented in this encounter Visit Diagnoses + + | Diagnosis | + + | Diabetic ketoacidosis without coma associated with type 1 diabetes mellitus (HCC) - | | Primary | + + documented in this encounter Administered Medications + +--------+ +--------+------+------+ | Medication Order | MAR | Action | Dose | Rate | Site | | | Action | Date | | | | + +--------+ +--------+------+------+ | acetaminophen (TYLENOL) tablet | Given | 05/03/20 | 650 mg | | | | 650 mg 650 mg, Oral, EVERY 4 | | 17 10:28 | | | | | HOURS PRN, Pain, or fever >= 38.3 | | AM PST | | | | | C (101.5 F), Starting Fri | | | | | | | 05/02/17 at 0141 | | | | | | + +--------+ +--------+------+------+ +-------+ +--------+---+---+ | Given | 05/02/20 | 650 mg | | | | | 17 1:32 | | | | | | PM PST | | | | +-------+ +--------+---+---+ +---+---+ | | | +---+---+ + +-------+ +--------+---+---+ | albuterol 2.5 mg/3 mL nebulizer | Given | 05/02/20 | 2.5 mg | | | | solution 2.5 mg 2.5 mg, | | 17 7:55 | | | | | Nebulization, RT 4 TIMES DAILY | | PM PST | | | | | PRN, Shortness of Breath, | | | | | | | Starting Fri05/02/17 at 0156, RT | | | | | | | will administer., | | | | | | + +-------+ +--------+---+---+ +-------+ +--------+---+---+ | Given | 05/02/20 | 2.5 mg | | | | | 17 11:41 | | | | | | AM PST | | | | +-------+ +--------+---+---+ +---+---+ | | | +---+---+ + +---------+ +---+-------+---+ | dextrose 5% and sodium chloride | New Bag | 05/02/20 | | 250 | | | 0.45% (D5 1/2 NS) infusion at | | 17 3:31 | | mL/hr | | | 250 mL/hr, Intravenous, PRN, | | AM PST | | | | | begin when Blood Glucose drops | | | | | | | below 250 mg/dL, Starting Fri | | | | | | | 05/02/17 at 0141, Begin at same | | | | | | | rate as any previous running IV | | | | | | | fluid. Stop any other IV fluid. | | | | | | | Discontinue when eating., | | | | | | + +---------+ +---+-------+---+ + +---+ | | | + +---+ | dextrose 50% injection 12.5 g | | | 12.5 g, Intravenous, PRN, Low | | | Blood Sugar, Starting Fri | | | 05/02/17 at 0141 | | + +---+ | | | + +---+ + +-------+ + +---+ + | insulin glargine (LANTUS | Given | 05/02/20 | 25 Units | | Abdomen- | | SOLOSTAR) 100 units/mL injection | | 17 10:05 | | | RUQ | | (pen) 25 Units 25 Units, | | PM PST | | | | | Subcutaneous, ONCE, 05/02/17 | | | | | | | at 2215, For 1 dose, For | | | | | | | subcutaneous use only. Basal | | | | | | | (long acting) insulin., | | | | | | + +-------+ + +---+ + + +---+ | | | + +---+ | insulin glargine (LANTUS | | | SOLOSTAR) 100 units/mL injection | | | (pen) 25 Units 25 Units, | | | Subcutaneous, NIGHTLY, First dose | | | (after last modification) on Sat | | | 05/03/17 at 2100, For | | | subcutaneous use only. Basal | | | (long acting) insulin., | | + +---+ | | | + +---+ + +-------+ +---------+---+ + | insulin lispro (humaLOG | Given | 05/03/20 | 4 Units | | Arm-Righ | | KWMARIAMPEN) 100 units/mL injection | | 17 12:07 | | | t Upper | | (pen) 0-12 Units 0-12 Units, | | PM PST | | | | | Subcutaneous, 4 TIMES DAILY WITH | | | | | | | MEALS & NIGHTLY, First dose on | | | | | | | 05/03/17 at 0800, CORRECTION | | | | | | | SCALE: Blood Glucose (BG) < | | | | | | | 150: None BG | | | | | | | 150-200: DAY: 2 units. NIGHT: | | | | | | | 0 units BG 201-250: DAY: 4 | | | | | | | units. NIGHT: 2 units BG | | | | | | | 251-300: DAY: 6 units. NIGHT: | | | | | | | 4 units BG 301-350: DAY: 8 | | | | | | | units. NIGHT: 6 units BG | | | | | | | 351-400: DAY: 10 units. NIGHT: 8 | | | | | | | units BG > 400 : DAY: 12 | | | | | | | units. NIGHT: 10 units | | | | | | | AND CALL PROVIDER | | | | | | | , Use DAY DOSE for doses | | | | | | | scheduled: AC, NPO, Daytime | | | | | | | 9600-1069 Use NIGHT DOSE for | | | | | | | doses scheduled: HS, 3AM, | | | | | | | Nighttime [id number], | | | | | | + +-------+ +---------+---+ + +-------+ +---------+---+ + | Given | 05/03/20 | 2 Units | | Arm-Left | | | 17 8:27 | | | Upper | | | AM PST | | | | +-------+ +---------+---+ + +---+---+ | | | +---+---+ + +-------+ + +---+ + | insulin lispro (humaLOG | Given | 05/02/20 | 12 Units | | Abdomen- | | KWIKPEN) 100 units/mL injection | | 17 10:05 | | | RLQ | | (pen) 0-18 Units 0-18 Units, | | PM PST | | | | | Subcutaneous, 4 TIMES DAILY WITH | | | | | | | MEALS & NIGHTLY, First dose on | | | | | | | 05/02/17 at 2215, CORRECTION | | | | | | | SCALE: Blood Glucose (BG) < | | | | | | | 150: None BG | | | | | | | 150-200: DAY: 3 units. NIGHT: | | | | | | | 0 units BG 201-250: DAY: 6 | | | | | | | units. NIGHT: 3 units BG | | | | | | | 251-300: DAY: 9 units. NIGHT: | | | | | | | 6 units BG 301-350: DAY: 12 | | | | | | | units. NIGHT: 9 units BG | | | | | | | 351-400: DAY: 15 units. NIGHT: | | | | | | | 12 units BG > 400 : DAY: 18 | | | | | | | units. NIGHT: 15 units | | | | | | | AND CALL PROVIDER | | | | | | | Use DAY DOSE for doses | | | | | | | scheduled: AC, NPO, Daytime | | | | | | | 0812-2886 Use NIGHT DOSE for | | | | | | | doses scheduled: HS, 3AM, | | | | | | | Nighttime 5062-0318, | | | | | | + +-------+ + +---+ + +---+---+ | | | +---+---+ + +-------+ +---------+---+ + | insulin lispro (humaLOG | Given | 05/02/20 | 4 Units | | Arm-Left | | KWIKPEN) 100 units/mL injection | | 17 4:52 | | | Upper | | (pen) 0-6 Units 0-6 Units, | | PM PST | | | | | Subcutaneous, 4 TIMES DAILY WITH | | | | | | | MEALS & NIGHTLY, First dose on | | | | | | | Fri05/02/17 at 0800, CORRECTION | | | | | | | SCALE: Blood Glucose (BG) < | | | | | | | 150: None BG | | | | | | | 150-200: DAY: 1 units. NIGHT: 0 | | | | | | | units BG 201-250: DAY: 2 units. | | | | | | | NIGHT: 1 units BG 251-300: | | | | | | | DAY: 4 units. NIGHT: 2 units | | | | | | | BG 301-350: DAY: 4 units. NIGHT: | | | | | | | 3 units BG 351-400: DAY: 6 | | | | | | | units. NIGHT: 4 units BG > | | | | | | | 400 : DAY: 8 units. NIGHT: 5 | | | | | | | units | | | | | | | AND CALL PROVIDER Use DAY DOSE | | | | | | | for doses scheduled: AC, | | | | | | | NPO, Daytime 6265-1826 Use NIGHT | | | | | | | DOSE for doses scheduled: | | | | | | | HS, 3AM, Nighttime 4715-5473, | | | | | | + +-------+ +---------+---+ + +-------+ +---------+---+ + | Given | 05/02/20 | 4 Units | | Abdomen- | | | 17 11:59 | | | RLQ | | | AM PST | | | | +-------+ +---------+---+ + | Given | 05/02/20 | 2 Units | | Arm-Righ | | | 17 8:09 | | | t Upper | | | AM PST | | | | +-------+ +---------+---+ + +---+---+ | | | +---+---+ + +-------+ +---------+---+ + | insulin lispro (humaLOG | Given | 05/02/20 | 3 Units | | Arm-Left | | KWIKPEN) 100 units/mL injection | | 17 4:52 | | | Upper | | (pen) 3 Units 3 Units, | | PM PST | | | | | Subcutaneous, 3 TIMES DAILY WITH | | | | | | | MEALS, First dose on Fri05/02/17 | | | | | | | at 0800, ADJUST DOSE | | | | | | | FOLLOWS: Eating Normally: | | | | | | | FULL prescribed dose NPO (or <1/4 | | | | | | | of meals): Do NOT give this | | | | | | | dose of insulin Less than half of | | | | | | | meal: HALF of this dose If | | | | | | | patient eating predictably, give | | | | | | | insulin dose immediately before | | | | | | | meal. If intake uncertain or | | | | | | | inconsistent, give | | | | | | | mealtime/correction insulin dose | | | | | | | within 15 minutes AFTER finishing | | | | | | | meal. , | | | | | | + +-------+ +---------+---+ + +-------+ +---------+---+ + | Given | 05/02/20 | 3 Units | | Abdomen- | | | 17 11:58 | | | LUQ | | | AM PST | | | | +-------+ +---------+---+ + | Given | 05/02/20 | 3 Units | | Arm-Righ | | | 17 8:09 | | | t Upper | | | AM PST | | | | +-------+ +---------+---+ + +---+---+ | | | +---+---+ + +-------+ +---------+---+ + | insulin lispro (humaLOG | Given | 05/03/20 | 5 Units | | Arm-Righ | | KWIKPEN) 100 units/mL injection | | 17 12:07 | | | t Upper | | (pen) 5 Units 5 Units, | | PM PST | | | | | Subcutaneous, 3 TIMES DAILY WITH | | | | | | | MEALS, First dose (after last | | | | | | | modification) on 05/03/17 at | | | | | | | 0800, ADJUST DOSE FOLLOWS: | | | | | | | Eating Normally: FULL | | | | | | | prescribed dose NPO (or <1/4 of | | | | | | | meals): Do NOT give this dose | | | | | | | of insulin Less than half of | | | | | | | meal: HALF of this dose If | | | | | | | patient eating predictably, give | | | | | | | insulin dose immediately before | | | | | | | meal. If intake uncertain or | | | | | | | inconsistent, give | | | | | | | mealtime/correction insulin dose | | | | | | | within 15 minutes AFTER finishing | | | | | | | meal. , | | | | | | + +-------+ +---------+---+ + +-------+ +---------+---+ + | Given | 05/03/20 | 5 Units | | Arm-Left | | | 17 8:27 | | | Upper | | | AM PST | | | | +-------+ +---------+---+ + +---+---+ | | | +---+---+ + +-------+ + +---+ + | insulin NPH (humuLIN N, novoLIN | Given | 05/02/20 | 10 Units | | Arm-Left | | N) injection 10 Units 10 Units, | | 17 8:04 | | | Upper | | Subcutaneous, ONCE, 05/02/17 | | AM PST | | | | | at 0700, For 1 dose, Only for | | | | | | | use with U-100 insulin syringe., | | | | | | + +-------+ + +---+ + +---+---+ | | | +---+---+ + + + + +-------+---+ | insulin regular (humuLIN R, | Rate/Dos | 05/02/20 | 2.2 | 2.2 | | | novoLIN R) 1 Units/mL in sodium | e Change | 17 3:05 | Units/hr | mL/hr | | | chloride 0.9% 100 mL infusion | | AM PST | | | | | (Adult Protocol) 0-101.2 | | | | | | | Units/hr (0-101.2 mL/hr), at | | | | | | | 0-101.2 mL/hr, Intravenous, | | | | | | | TITRATED, Starting Kailey 05/01/17 at | | | | | | | 2340, See link for Adult | | | | | | | Columnar Insulin Infusion (on | | | | | | | MAR) and Insulin Infusion | | | | | | | Protocol order for administration | | | | | | | instructions., | | | | | | + + + + +-------+---+ + + + +-------+---+ | Rate/Dose Change | 05/02/20 | 4.4 | 4.4 | | | | 17 2:35 | Units/hr | mL/hr | | | | AM PST | | | | + + + +-------+---+ | New Bag | 05/02/20 | 8.8 | 8.8 | | | | 17 12:02 | Units/hr | mL/hr | | | | AM PST | | | | + + + +-------+---+ +---+---+ | | | +---+---+ + + + + +-------+---+ | insulin regular (humuLIN R, | Rate/Dos | 05/02/20 | 0.036 | 2.2 | | | novoLIN R) 1 Units/mL in sodium | e Change | 17 4:05 | Units/kg | mL/hr | | | chloride 0.9% 100 mL infusion | | AM PST | /hr | | | | 0-0.4 Units/kg/hr | | | | | | | 61.2 kg (0-24.48 mL/hr, rounded | | | | | | | to 0-24.5 mL/hr), at 0-24.5 | | | | | | | mL/hr, Intravenous, TITRATED, | | | | | | | Starting Fri05/02/17 at 0200, | | | | | | | For initial infusion rate: 0.1 | | | | | | | units/kg/hr = 6.1 units/hr 0.2 | | | | | | | units/kg/hr = 12.2 units/hr 0.3 | | | | | | | units/kg/hr = 18.4 units/hr | | | | | | | 0.4 units/kg/hr = 24.5 units/hr | | | | | | | 1. If blood glucose decreases by | | | | | | | less than 50 mg/dL in the | | | | | | | first hour, give a bolus of | | | | | | | Regular insulin 8.6 units | | | | | | | (0.14 units/kg) IV x 1 and | | | | | | | reassess in 1 hour 2. If blood | | | | | | | glucose drops by less than | | | | | | | 50 mg/dL after the 8.6 units | | | | | | | (0.14 units/kg) IV bolus of | | | | | | | Regular insulin, contact | | | | | | | provider 3. If blood glucose | | | | | | | decreases by 50-100 | | | | | | | mg/dL/hr, continue insulin | | | | | | | infusion at current rate 4. If | | | | | | | blood glucose decreases by | | | | | | | greater than 100 mg/dL/hr, | | | | | | | decrease insulin infusion rate by | | | | | | | 50%, but not lower than | | | | | | | 3.1 units/hr (0.05 units/kg/hr) | | | | | | | 5. When blood glucose drops to | | | | | | | 250 mg/dL or less, refer to | | | | | | | DKA Management order Prime | | | | | | | tubing with 20 mL of insulin | | | | | | | solution with each tubing change, | | | | | | | Begin infusion at (units/kg/hr): | | | | | | | 0.1 | | | | | | + + + + +-------+---+ + + + +-------+---+ | Rate/Dose Change | 05/02/20 | 0.072 | 4.4 | | | | 17 2:14 | Units/kg | mL/hr | | | | AM PST | /hr | | | + + + +-------+---+ +---+---+ | | | +---+---+ + +-------+ +------+---+---+ | nicotine polacrilex (COMMIT) | Given | 05/03/20 | 2 mg | | | | lozenge 2 mg 2 mg, Oral, EVERY 1 | | 17 10:33 | | | | | HOUR PRN, Nicotine Craving, | | AM PST | | | | | Starting 05/02/17 at 0336 | | | | | | + +-------+ +------+---+---+ +-------+ +------+---+---+ | Given | 05/03/20 | 2 mg | | | | | 17 7:32 | | | | | | AM PST | | | | +-------+ +------+---+---+ | Given | 05/02/20 | 2 mg | | | | | 17 4:07 | | | | | | PM PST | | | | +-------+ +------+---+---+ +---+---+ | | | +---+---+ + +-------+ +------+---+---+ | ondansetron (ZOFRAN) injection | Given | 05/01/20 | 4 mg | | | | 4 mg 4 mg, Intravenous, EVERY 15 | | 17 11:16 | | | | | MIN PRN, Nausea, Vomiting, | | PM PST | | | | | Starting [facility] 05/01/17 at 2254, For | | | | | | | 2 doses | | | | | | + +-------+ +------+---+---+ +---+---+ | | | +---+---+ + +---------+ +--------+-------+---+ | sodium chloride 0.9% (NS) bolus | New Bag | 05/01/20 | 1,000 | 1000 | | | 1,000 mL 1,000 mL, Intravenous, | | 17 11:01 | mLs | mL/hr | | | Administer over 1 Hours, ONCE, | | PM PST | | | | | Kailey 05/01/17 at 2300, For 1 dose | | | | | | + +---------+ +--------+-------+---+ +---+---+ | | | +---+---+ + +---------+ +--------+-------+---+ | sodium chloride 0.9% (NS) bolus | New Bag | 05/02/20 | 1,000 | 2000 | | | 1,000 mL 1,000 mL, Intravenous, | | 17 10:17 | mLs | mL/hr | | | Administer over 15-30 Minutes, | | PM PST | | | | | ONCE, 05/02/17 at 2215, For 1 | | | | | | | dose | | | | | | + +---------+ +--------+-------+---+ +---+---+ | | | +---+---+ + +---------+ +---------+-------+---+ | sodium chloride 0.9% (NS) bolus | New Bag | 05/03/20 | 500 mLs | 1000 | | | 500 mL 500 mL, Intravenous, | | 17 1:20 | | mL/hr | | | Administer over 15-30 Minutes, | | AM PST | | | | | ONCE, 05/03/17 at 0030, For 1 | | | | | | | dose | | | | | | + +---------+ +---------+-------+---+ +---+---+ | | | +---+---+ + +---------+ +---+-------+---+ | sodium chloride 0.9% (NS) | New Bag | 05/02/20 | | 250 | | | infusion at 250 mL/hr, | | 17 2:10 | | mL/hr | | | Intravenous, CONTINUOUS, Starting | | AM PST | | | | | 05/02/17 at 0200, | | | | | | | Discontinue when | | | | | | | dextrose-containing fluid is | | | | | | | started., | | | | | | + +---------+ +---+-------+---+ +---+---+ | | | +---+---+ documented in this encounter
--- OUTSIDE RECORDS SUMMARY | ~2020-04-12 | XMS | Encounter Summary ---
Demographics + + + | Address | [address] | | | [place] [address] | + + + | Home Phone | | + + + | Preferred Language | Unknown | + + + | Marital Status | Single | + + + | Latter Day Affiliation | 1001 | + + + | Race | White | + + + | Ethnic Group | Not or | + + + Author + + + | Author | [facility] | | | and Ryana | + + + | Organization | [facility] | | [...] Team Providers + +------+ + | Care Crew Boat Operator Name | Role | Phone | + +------+ + PCP | Unavailable | + +------+ + Encounter Details +--------+ + + + + | Date | Type | Department | Care Team | Description | +--------+ + + + + | 12/18/ | Hospital | [facility] | Mohsen Carranza | | | 1999 | Encounter | [facility] [address] Need updated | | | | | [place] | address | | | | | [id number] | | | | | | [phone] | | | +--------+ + + + [...]
--- OUTSIDE RECORDS SUMMARY | ~2020-04-12 | XMS | Encounter Summary ---
Demographics + + + | Address | [address] | | | [place] [address] | + + + | Home Phone | | + + + | Preferred Language | Unknown | + + + | Marital Status | Single | + + + | Bahai Affiliation | 1001 | + + + | Race | White | + + + | Ethnic Group | Not or | + + + Author + + + | Author | [facility] | | | and Ryana | + + + | Organization | [facility] | | | [...] Team Providers + +------+ + | Care Finisher Hot Strip Name | Role | Phone | + +------+ + | No, Physician | PCP | Unavailable | + +------+ + Reason for Visit + + + | Reason | Comments | + + + | Skin Problem | Comes in d/t sores on his face and ear. | + + + Encounter Details +--------+ + + + + | Date | Type | Department | Care Team | Description | +--------+ + + + + | 03/02/ | Emergency | [facility] | Izabela Scott, | Localized bacterial | | 2019 - | | MEDICAL CENTER | MD [address] | skin infection | | | | EMERGENCY CENTER | [place] [address] | (Primary Dx); | | 03/03/ | | [address] | [phone] | Hyperglycemia; | | 2019 | | [place], [place] | | Essential | | | | [address] | | hypertension | | | | [phone] | | | +--------+ + + + [...] + + + + | Weight | - | - | | + + + + + | Height | 167.6 cm (5' 6") | 03/03/2020 12:30 AM | | | | | PDT | | + + + + + | Body Mass Index | - | - | | + [...] documented as of this encounter Discharge Instructions AttachmentsThe following attachments cannot be sent through Care Everywhere.Staph Skin Infe ction, Possible MRSA (Malay)documented in this encounter Medications at Time of [...] Units | 9 mL | 0 | 05/21/20 | | | (LANTUS SOLOSTAR) | under the skin 2 | | | 19 | | | 100 units/mL | times daily. | | | | | | injection (pen) | | | | | | + + + +---------+ + + | insulin lispro | Inject 0-12 Units | 10 mL | 0 | 05/21/20 | | | (HUMALOG) 100 | under the skin 4 | | | 19 | | | units/mL injection | times daily (with | | | | | | (vial) | meals and nightly). | | | | | + + + +---------+ + + | nicotine | Take 4 mg by mouth | | 0 | | | | polacrilex (COMMIT) | as needed for | | | | | | 4 MG lozenge | Nicotine [...] | pieces/day). | | | | | + + + +---------+ + + | mupirocin | apply to affected | 30 g | 0 | 03/03/20 | | | (BACTROBAN) 2% | area 3 times. | | | 20 | 0 | | ointment | | | | | | + + + +---------+ + + | | Take 1 tablet by | 20 | 0 | 03/03/20 | | | sulfamethoxazole-tri | mouth 2 times daily | tablet | | 20 | 0 | | methoprim (BACTRIM | for 10 days. | | | | | | DS) 800-160 mg per | | | | | | | tablet | | | | | | + + + +---------+ + + | | Take 1 tablet by | 20 | 0 | 03/03/20 | | | sulfamethoxazole-tri | mouth 2 times daily | tablet | | 20 | 0 | | methoprim (BACTRIM | for 10 days. | | | | | | DS) 800-160 mg per | | | | | | | tablet | | | | | | + + + +---------+ + + documented as of this encounter ED Notes Izabela Scott MD - 03/02/2020 10:07 PM PDTFormatting of this note might be different fr om the original. [facility] Department of Emergency Medicine No flowsheet data found. 2:24 AM PDT History of Present Illness Patient Identification Joni Kwon is a 39 y.o. male. Joni Kwon Patient information was obtained from patient History/Exam limitations: none. Patient presented to the Emergency Department by: Car Chief Complaint Chief Complaint Patient presents with Skin Problem Comes in d/t sores on his face and ear. The patient presents to the emergency department with chief complaints of skin lesion. Onse t of symptoms was several months, with a constant course since that time. The symptoms are d escribed to be of moderate severity. The patient also complains of pain. The patient describ es the quality and location of the symptoms as the following: Patient stated he has had this recurrent abscesses to the back of the head in the ER for the past several months, he has b een expressing some pus. Denies any fever, chills or other symptoms. Care prior to arrival consisted of squeezing the lesion, with minimal relief. PCP: No Physician on file Past Medical History: Diagnosis Date ADHD (attention deficit hyperactivity disorder) Depression Unclear of major depression vs bipolar depression Diabetes mellitus (HCC) Type 1 diabetes Schizophrenia (HCC) Past Surgical History: Procedure Laterality Date TONSILLECTOMY Prior to Admission medications Medication Sig Start Date End Date Taking? Authorizing Provider albuterol 90 mcg/puff inhaler Inhale 2 puffs into the lungs EVERY 4 TO 6 HOURS NEEDED fo r Wheezing. Historical Provider, insulin glargine (LANTUS SOLOSTAR) 100 units/mL injection (pen) Inject 20 Units under the s kin 2 times daily. 05/21/19 Hosea Watson MD insulin lispro (HUMALOG) 100 units/mL injection (vial) Inject 0-12 Units under the skin 4 t imes daily (with meals and nightly). 05/21/19 Hosea Watson MD nicotine polacrilex (COMMIT) 4 MG lozenge Take 4 mg by mouth as needed for Nicotine Craving . Chew and tuck 1 piece every 1-2 hours for weeks 1-6 then every 2-4 hours for weeks 7-9 the n every 4-8 hours weeks 10-12 (max 24 pieces/day). Historical ProviderMD Allergies Allergen Reactions Bee Venom Anaphylaxis Haldol [Haloperidol] Swelling Levemir [Insulin Detemir] Swelling Risperidone Other (See Comments) "sleeps too long" Social History Socioeconomic History Marital status: Single Spouse name: Not on file Number of children: Not on file Years of education: Not on file Highest education level: Not on file Occupational History Not on file Social Needs Financial resource strain: Not on file Food insecurity Worry: Not on file Inability: Not on file Transportation needs Medical: Not on file Non-medical: Not on file Tobacco Use Smoking status: Current Every Day Smoker Packs/day: 0.50 Types: Cigarettes Smokeless tobacco: Never Used Substance and Sexual Activity Alcohol use: Yes Comment: occassionally Drug use: Yes Frequency: 3.0 times per week Types: Marijuana Sexual activity: Not on file Lifestyle Physical activity Days per week: Not on file Minutes per session: Not on file Stress: Not on file Relationships Social connections Talks on phone: Not on file Gets together: Not on file Attends anabaptism service: Not on file Active member of club or organization: Not on file Attends meetings of clubs or organizations: Not on file Relationship status: Not on file Intimate partner violence Fear of current or ex partner: Not on file Emotionally abused: Not on file Physically abused: Not on file Forced sexual activity: Not on file Other Topics Concern Not on file Social History Narrative Not on file Family History Problem Relation Age of Onset Diabetes Maternal Grandfather Diabetes Maternal Grandmother Review of Systems Constitutional: Negative for: fever, chills or weight loss. HEENT: Negative for: head trauma, ear pain, sore throat or acute visual disturbance. Cardiovascular/Respiratory: Negative for: chest pain, syncope, shortness of breath or cough . Gastrointestinal: Negative for: abdominal pain, nausea, vomiting, diarrhea, or black or bl oody stools. Genitourinary: Negative for: dysuria or urinary problems. Musculoskeletal: Negative for: back pain Skin: Positive for skin lesions. Neuro: Negative for: headache, focal muscle weakness, seizure or acute neur ological problems. All systems reviewed and otherwise negative Physical Exam Temp: 36.6 C (97.8 F) Pulse: 110 Resp: 18 BP: (!) 180/94 SpO2: 100 % Vitals Interpretation: Tachycardic, hypertensive Pulse Oximetry interpretation: Normal General: Alert, in no apparent distress Eyes: Normal inspection, pupils equal and round, non-icteric CVS: Rate and rhythm normal No murmurs, rubs or gallops Respiratory: Breath sounds normal bilaterally, no wheezing or crackles Abdomen: Soft, non-tender, non-distended No guarding or rebound Skin: Area of erythema to the left posterior scalp with a scab. And left facial with a s cab. No rash Musculoskeletal: Moves all extremities Neuro: No gross motosensory deficit Medical Decision Making and Emergency Department Course Records Reviewed Old medical records. ED Department Course 2:24 AM PDT Patient with history of ADHD, schizophrenia, poorly controlled diabetes, presen eleno with skin lesion to the back of his head and left face. Will obtain lab and start empiri c antibiotic. Patient also admits of drug use, methamphetamine, denies any fever or chills. Low suspicion for sepsis at this time. Bedside ultrasound performed, no drainable abscess noted. Patient stated that he was able to express some pus earlier. CBC showed WBC 12.3, sodium 132, glucose 299, CRP 4. Patient received first dose antibioti c Rocephin will start on Bactrim DS, recommend to return to the ER for reevaluation if sympt oms worsen. Patient was noted to be hypertensive, currently without endorgan damage and asymptomatic re commend follow-up with PCP to address this. The patient was clinically stable at discharge, no acute life or limb threatening condition noted. I have discussed s/s that would necessitate an immediate return visit to the ED. P t verbalized their understanding of the discharge instructions, and the need for outpatient follow up with PCP as soon as possible or ED if symptoms worsen in the next 24-72 hours. Medications cefTRIAXone (ROCEPHIN) IVPB 1 g (0 g Intravenous Stopped 03/02/20 6011) sodium chloride 0.9% (NS) bolus 1,000 mL (0 mLs Intravenous Stopped 03/03/20 0032) Vitals: 03/02/20 2157 03/03/20 0000 03/03/20 0030 BP: (!) 180/94 (!) 167/93 (!) 172/115 Pulse: 110 102 108 Resp: 18 20 Temp: 36.6 C (97.8 F) 36.5 C (97.7 F) TempSrc: Oral SpO2: 100% 100% 100% Height: 1.676 m (5' 6") Laboratory Evaluation Results Procedure Component Value Ref Range Date/Time Comprehensive Metabolic Panel [[id number]] (Abnormal) Collected: 03/02/202209 Order Status: Completed Specimen: Blood Updated: 03/02/202311 Na 132 135 - 145 mmol/L K 3.9 3.5 - 4.9 mmol/L Cl 94 99 - 109 mmol/L CO2 31 23 - 32 mmol/L Anion Gap 11 5 - 20 mmol/L Glucose 299 65 - 99 mg/dL BUN 23 8 - 25 mg/dL Creatinine 1.15 0.70 - 1.30 mg/dL BUN/Creatinine Ratio 20 Calcium 9.4 8.5 - 10.5 mg/dL Protein, Total 6.4 6.3 - 8.2 g/dL Albumin 4.1 3.6 - 5.0 g/dL Globulin 2.3 1.3 - 4.9 g/dL A/G Ratio 1.8 1.0 - 2.4 BILIRUBIN, TOTAL 0.3 0.1 - 1.5 mg/dL ALK PHOS 122 35 - 115 U/L AST 12 10 - 45 U/L ALT 13 10 - 65 U/L Estimated GFR >60 >60 mL/min/1.73m2 C-Reactive Protein [[id number]] (Abnormal) Collected: 03/02/202209 Order Status: Completed Specimen: Blood Updated: 03/02/202311 CRP 4.0 <0.5 mg/dL CBC with Differential [[id number]] (Abnormal) Collected: 03/02/202209 Order Status: Completed Specimen: Blood Updated: 03/02/202245 WBC 12.36 3.80 - 11.00 K/uL Red Blood Cells 4.61 4.20 - 5.70 M/uL Hemoglobin 14.1 13.2 - 17.0 g/dL Hematocrit 39.4 39.0 - 50.0 % MCV 85.5 80.0 - 100.0 fl MCH 30.6 27.0 - 34.0 pg MCHC 35.8 32.0 - 35.5 g/dL RDW-SD 36.8 37 - 53 fl Platelet Count 372 150 - 400 K/uL MPV 9.8 fl Diff Type AUTOMATED % nRBC 0.0 0 /100WBC % Neutrophils 72.90 % IMMATURE GRANULOCYTE 0.20 % % Lymphocytes 17.30 % Monocyte % 6.40 % Eosinophils % 2.60 % Basophils % 0.60 % Neutrophils, Absolute 9.00 1.90 - 7.40 K/uL IMMATURE GRANS AB 0.03 0.00 - 0.07 K/uL Absolute Lymphocytes 2.14 1.00 - 3.90 K/uL Absolute Monocytes 0.79 0.00 - 0.80 K/uL Eosinophils, Absolute 0.32 0.00 - 0.50 K/uL Basophils, Absolute 0.08 0.00 - 0.10 K/uL Available Labs reviewed and interpreted by me. Radiology and EKG Evaluation Imaging Results None Available radiology studies reviewed and interpreted contemporaneously by me. Diagnosis 1. Localized bacterial skin infection 2. Hyperglycemia 3. Essential hypertension Disposition: ED Disposition ED Disposition Condition Comment Discharge Stable Discharge Medications: ED Prescriptions Sig sulfamethoxazole-trimethoprim (BACTRIM DS) 800-160 mg per tablet Take 1 tablet by mouth 2 times daily for 10 days. sulfamethoxazole-trimethoprim (BACTRIM DS) 800-160 mg per tablet Take 1 tablet by mouth 2 times daily for 10 days. mupirocin (BACTROBAN) 2% ointment apply to affected area 3 times. Follow-up Information Schedule an appointment as soon as possible for a visit with [facility]. Specialty: Family Medicine Contact information: [address] [facility] [address] [facility]. Specialty: Emergency Medicine Why: If symptoms worsen Contact information: [address] [facility] [address] Procedures: Procedures Attending Provider Note: IIzabela MD personally performed the services described in this documentation, as scribed by Izabela Scott MD in my presence, and it is both ac curate and complete. Chart Reviewed and Completed. Scribe: I Izabela Scott MD,Scribe, scribing for and in the presence of Izabela Scott MD. Completed by: Izabela Scott MD, Scribjeri 03/03/2020 2:24 AM PDT Izabela Scott MD 03/03/20 0225 documented in this e ncounter Plan of Treatment + +------+--------+ + + | Name | Type | Priori | Associated Diagnoses | Date/Time | | | | ty | | | + +------+--------+ + + | ED INFORMATION | KELLY | Routin | | 03/02/2020 9:28 PM | | EXCHANGE | | e [...] | | | ON?/ | | | | | | 0 | | | :27? | | | DOYLE | | | , | | | BENJAM | | | IN | | | J?MRN: | | | | | | [id number] | | | [id number] | | | riteri | | | [...] | | | ics | | | 06/04/ | | | 19 | | | 8:58 | | | PM [facility] | | | y | | | [...] | | | [facility] | | | [facility] | | | y | | | [...] | | | St[facility] | | | [facility] | | | y | | | [...] | | | St. | | | [facility] | | | y | | | [...] | | | St. | | | [facility] | | | y | | | [...] | | | ags | | | [place] | | | ED | | | Dispar | | | ity | | | Measur | | | e - | | | [place] | | | has | | | [...] | | | s. | | | [place] | | | | | | Health [...] | | | By: | | | [place] | | | | | | Health [...] | | | St[facility] | | | [facility] | | | y | | | [...] | | | St. | | | [facility] | | | y H. | | [...] | | | St[facility] | | | [facility] | | | y H. | | [...] | | | St. | | | [facility] | | | y H. | | [...] otitis | | | | | | life manager | | | a, | | | [...] | | | St. | | | [facility] | | | y H. | | [...] | | | St. | | | [facility] | | | y H. | | [...] | | | St[facility] | | | [facility] | | | y H. | | [...] | | | St. | | | [facility] | | | y H. | | [...] | | | St[facility] | | | [facility] | | | y H. | | [...] | | | St. | | | [facility] | | | y H. | | [...] | | | St. | | | [facility] | | | y H. 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 | | | al | | | [...] | | | MD | | | Box Truck Owner Operator | | | al | | | [...] [email or web address] | | | m | +---+--------+ documented in this encounter Results C-Reactive Protein (03/02/2020 10:10 PM PDT) + + + + + + | Component | Value | Ref Range | Performed | Pathologist | | | | | At | Signature | + + + + + + | CRP | 4.0 (H)Comment: Testing | <0.5 mg/dL | [facility] | | | | performed at [facility];[address] | | LABORAT[address] | | | | [address];[place] | | | | | | [address] | | | | + + + + + + + + | Specimen | + + | Blood | + + + + + + + | Performing | Address | City/State/Zipcode | Phone Number | | Organization | | | | + + + + + | [facility] | [address] | [place] [address] | [phone] | + + + + + Comprehensive [...] | | | | | performed at [facility];[address] | | | | | | [address];[place], [place] | | | | | | [address] | | | | + + + + + + + + | Specimen | + + | Blood | + + + + + + + | Performing | Address | City/State/Zipcode | Phone Number | | Organization | | | | + + + + + | [facility] | [address] | [place] [address] | [phone] | + + + + + CBC with Differential (03/02/2020 10:10 PM PDT) [...] 0.08Comment: Testing | 0.00 - 0.10 | [facility] | | | Absolute | performed at [facility];[address] | [address] | LABORATORY | | | | [address];[place] | | | | | | [address] | | | | + + + + + + + + | Specimen | + + | Blood | + + + + + + + | Performing | Address | City/State/Zipcode | Phone Number | | Organization | | | | + + + + + | [facility] | [address] | [place] [address] | [phone] | + + + + + documented in this encounter Visit Diagnoses + + | Diagnosis | + + | Localized bacterial skin infection - Primary Unspecified local infection of skin and | | subcutaneous tissue | + + | Hyperglycemia Other abnormal glucose | + + | Essential hypertension Unspecified essential hypertension | + + documented in this encounter Administered Medications + +---------+ +------+-------+------+ | Medication Order | MAR | Action | Dose | Rate | Site | | | Action | Date | | | | + +---------+ +------+-------+------+ | cefTRIAXone (ROCEPHIN) IVPB 1 g | New Bag | 03/02/20 | 1 g | 100 | | | 1 g, Intravenous, Administer | | 20 11:18 | | mL/hr | | | over 30 Minutes, ONCE, Kailey | | PM PDT | | | | | 03/02/20 at 2245, For 1 dose, Keep | | | | | | | in refrigerator., Indications: | | | | | | | SKIN AND SOFT TISSUE ABSCESS | | | | | | + +---------+ +------+-------+------+ +---+---+ | | | +---+---+ + +---------+ +--------+-------+---+ | sodium chloride 0.9% (NS) bolus | New Bag | 03/02/20 | 1,000 | 2000 | | | 1,000 mL 1,000 mL, Intravenous, | | 20 11:18 | mLs | mL/hr | | | Administer over 30 Minutes, | | PM PDT | | | | | ONCE, Kailey 03/02/20 at 2245, For 1 | | | | | | | dose | | | | | | + +---------+ +--------+-------+---+ +---+---+ | | | +---+---+ documented in this encounter
--- OUTSIDE RECORDS SUMMARY | ~2020-04-12 | XMS | Encounter Summary ---
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
--- OUTSIDE RECORDS SUMMARY | ~2020-04-12 | XMS | Encounter Summary ---
Demographics + + + | Address | [address] | | | [place] [address] | + + + | Home Phone | | + + + | Preferred Language | Unknown | + + + | Marital Status | Single | + + + | Rastafarian Affiliation | 1001 | + + + | Race | White | + + + | Ethnic Group | Not or | + + + Author + + + | Author | [facility] | | | and Ryana | + + + | Organization | [facility] | | [...] Team Providers + +------+ + | Care Parking Lot Supervisor Name | Role | Phone | [...] + + | 09/23/ | Emergency | [facility] | Castro Adi | Hyperglycemia | | 2017 - | | [facility] | Alexander Craig MD | (Primary Dx); | | | | CENTER [address] | [address] | Genital edema, male | | 09/24/ | | [place], [place] | [place], [place] | | | 2016 | | [address] | [phone] | | | | | [phone] | | | +--------+ + + + [...] | | 0 | | | | SA-Csbunif[facility]ap-Tle | mouth Daily as | | | [...] encounter ED Notes Adi Castro MD - 09/23/2016 10:14 PM PDTFormatting of this note might be d ifferent from the original. [facility] Joni Kwon Emergency Department Encounter Note [address] [place] [id number] PCP:DENIS Paul [phone] eMERGENCY dEPARTMENT eNCOUnter CHIEF COMPLAINT Chief Complaint Patient presents with Back Pain Back Swelling Leg Swelling TRIAGE ED Triage Notes Balwinder Ahn RN 09/23/2016 22:17 Low back pain and swelling, states legs, feet and genitals are also swollen. Patient discha rged from [facility] yesterday after being admitted for DKA. States he started taking levam ir recently and every time he take this insulin then his legs and feet swell. Original note by Balwinder Ahn RN at 09/23/2016 22:15 Balwinder Ahn RN 09/23/2016 22:15 Low back pain and swelling, states legs, feet and genitals are also swollen. Patient discha rged from [facility] yesterday after being admitted for DKA Addendum to note by Balwinder Ahn RN at 09/23/2016 22:17 HPI Joni Kwon is a 35 y.o. male who presents with significant lower back edema and genital edema. Patient states he was in the hospital 2 days ago at [facility] for diabe tic ketoacidosis. He states they were pumping him full of fluids. Currently has significan t edema to his lower back and thighs. He states he was receiving a new type of insulin that he is unfamiliar with that has caused this. He states that this happened twice in the past . He's here for further evaluation. He states his blood sugar is slightly elevated this ev ening but is not in extreme condition. He's here for further evaluation Patient states he has lower back pain secondary to swelling in his back. PAST MEDICAL HISTORY Past Medical History Diagnosis Date Diabetes mellitus (HCC) Depression Unclear of major depression vs bipolar depression ADHD (attention deficit hyperactivity disorder) SURGICAL HISTORY Past Surgical History Procedure Laterality Date Tonsillectomy CURRENT MEDICATIONS Previous Medications ASPIRIN 81 MG CHEWABLE TABLET Take 81 mg by mouth Daily. ATOMOXETINE (STRATTERA) 100 MG CAPSULE Take 100 mg by mouth every morning. PG-PCEGVXRXABCTZ-NAZEJVBTBAXZJ 10-5-325 MG CAPS Take 1 capsule by mouth Daily as needed (for sinus congestion). INSULIN GLARGINE (LANTUS) 100 UNITS/ML INJECTION (VIAL) Inject 9 Units under the skin e very morning. INSULIN LISPRO (HUMALOG) 100 UNITS/ML INJECTION (CARTRIDGE) Inject under the skin 3 ti mes daily (before meals). Per sliding scale. ALLERGIES Allergies Allergen Reactions Haloperidol Swelling Risperidone [...] Other Topics Concern None Social History Narrative REVIEW OF SYSTEMS Please see HPI, All systems negative except as marked. Twelve point review of system comp leted my me. PHYSICAL EXAM VITAL SIGNS: Temp: 36.3 C (97.3 F) Pulse: 95 Resp: 14 SpO2: 100 % BP: (!) 132/97 mmHg Constitutional: Well developed, Well nourished, Non-toxic appearance. No acute distress HENT: Normocephalic, Atraumatic, Bilateral external ears normal, Oropharynx moist, No oral exudates, Nose normal. Neck- Normal range of motion, No tenderness, Supple, No stridor. Eyes: PERRL, EOMI, Conjunctiva normal, No discharge. Respiratory: Normal breath sounds, No respiratory distress, No wheezing, No chest tenderne ss. Cardiovascular: Normal heart rate, Normal rhythm, No murmurs, No rubs, No gallops. GI: Bowel sounds normal, Soft, No tenderness, No masses, No pulsatile masses. : Genital edema Musculoskeletal: Intact distal pulses, 2+ edema to the thighs and buttocks area No tendern ess, No cyanosis, No clubbing. Good range of motion in all major joints. No tenderness to pa lpation or major deformities noted. Back:- No tenderness. Significant edema to the lower back. It is 2+ edema. Neurologic: Alert & oriented x 3, Normal motor function, Normal sensory function, No focal deficits noted, no facial assymetry noted. Equal retail sales director in all extremities LAB Labs Reviewed CBC WITH DIFFERENTIAL - Abnormal; Notable for the following: WBC 3.3 (*) RBC 3.83 (*) Hgb 12.5 (*) Hct 36.2 (*) Platelet Count 139 (*) % Monocytes 12.5 (*) Absolute Neutrophils 1.70 (*) All other components within normal limits COMPREHENSIVE METABOLIC PANEL - Abnormal; Notable for the following: NA 131 (*) K 5.3 (*) CL 92 (*) CO2 23 (*) GLUCOSE 495 (*) ALBUMIN 3.0 (*) Total protein 5.4 (*) AST 71 (*) ALT 103 (*) ALK PHOS 120 (*) All other components within normal limits BETA HYDROXYBUTYRATE, QUANT - Abnormal; Notable for the following: Beta Hydroxybutyrate 3.19 (*) All other components within normal limits POC GLUCOSE - Abnormal; Notable for the following: Glucose, POC 536 (*) All other components within normal limits EXTRA BLUE TOP TUBE EXTRA GOLD TOP TUBE ED COURSE & MEDICAL DECISION MAKING Pertinent Labs & Imaging studies reviewed. (See chart for details) Nursing notes reviewed. Patient does not appear to have an anion gap on laboratory indices. He is spilling some ke tones. He improved markedly after infusion of Lasix as well as infusion of some albumin. H is blood sugars still elevated. He is not taking his insulin as directed today. Return. H im to take his insulin. We gave him a small dose of insulin currently. He is to continue t aking insulin in the next 24 hours. He is to return for severe worsening symptoms. He is t o follow-up his primary care physician. He is requesting to medicine for his lower back asmita n and giving him some Draper. He does not appear to be in acute distress at this point. Follow-up Information Follow up with DENIS Paul In 2 days. Specialty: Family Nurse Practitioner Contact information: [address], [address] [place] [address] New Prescriptions HYDROCODONE-ACETAMINOPHEN (NORCO) 5-325 MG PER TABLET Take 1-2 tablets by mouth every 6 hours as needed for Pain. FINAL IMPRESSION 1. Hyperglycemia 2. Genital edema, male Portions of this chart may have been created with [employer] voice recognition software. Occasi onal wrong-word or sound-alike substitutions may have occurred due to the inherent renee itations of voice recognition software. Please read the chart carefully and recognize, using context, where these substitutions have occurred Adi Castro MD 09/24/16 0102 documented in this encounter Miscellaneous Notes ED Triage Notes - Balwinder Ahn RN - 09/23/2016 10:14 PM PDTLow back pain and swelling, states legs, feet and genitals are also swollen. Patient discharged from [facility] yester day after being admitted for DKA. States he started taking levamir recently and every time h e take this insulin then his legs and feet swell. documented in this encounter Plan of Treatment [...] + | [facility] | [address] | [place] | [phone] | | [facility] | | [address] | | | - LABORATORY | | [...] + | [facility] | [address] | [place] | [phone] | | [facility] | | [address] | | | - LABORATORY | | [...] + | [facility] | [address] | [place] | [phone] | | [facility] | | [address] | | | - LABORATORY | | [...] [address] | [place] | [phone] | | [facility] | | [address] | | | - LABORATORY | | [...] | 1.01 | 0.60 - 1.30 | [facility] | | | | | mg/dL | [facility] | | | | | | MEDICAL | | | | | | CENTER - | | | | | | LABORATORY | | + + + + + + | eGFR, | >60Comment: GLOMERULAR | >=60 | [facility] | | | non- | FILTRATION | mL/min/1.73m2 | [facility] | | | [place] | RATE,ESTIMATED | | MEDICAL | | | | mL/min/1.45v0Ollr than | | CENTER - | | [...] (L) | 3.2 - 5.0 g/dL | [facility] [...] | | Total | | | [facility] | | [...] | | Phosphatase | | | [facility] | | [...] | bulin Ratio | | | [facility] | [...] + | [facility] | [address] | [place] | [phone] | | [facility] | | [address] | | | - LABORATORY | | | | + + + + + CBC with Differential (09/23/2016 10:45 PM PDT) + + + + + + | Component | Value | Ref Range | Performed | Pathologist | | | | | At | Signature | + + + + + + | White Blood | 3.3 (L) | 4.0 - 11.0 K/uL | [facility] | | | Cells | | | [facility] | | | | | | MEDICAL | | | | | | CENTER - | | | | | | LABORATORY | | + + + + + + | Red Blood | 3.83 (L) | 4.30 - 5.70 | [facility] | | | Cells | | M/uL | [facility] | [...] | 0.00 | 0.00 - 0.10 | [facility] | | | Basophils | | K/uL [...] [address] | [place] | [phone] | | [facility] | | [address] | | | - LABORATORY | | [...]
--- OUTSIDE RECORDS SUMMARY | ~2020-04-12 | XMS | Encounter Summary ---
Demographics + + + | Address | [address] | | | [place] [address] | + + + | Home Phone | | + + + | Preferred Language | Unknown | + + + | Marital Status | Single | + + + | Zoroastrianism Affiliation | 1001 | + + + | Race | White | + + + | Ethnic Group | Not or | + + + Author + + + | Author | [facility] | | | and Ryana | + + + | Organization | [facility] | | | [...] Team Providers + +------+ + | Care Broth Mixer Name | Role | Phone | [...] 2017 | | [facility] | [phone] | ketoacidosis without | | | | EDUCATION [address] | | coma associated | | | | [place], | | with type 1 diabetes | | | | [place] [address] | | mellitus (HCC) | | | | [phone] | | | +--------+ + + + [...]
--- OUTSIDE RECORDS SUMMARY | ~2020-04-12 | XMS | Encounter Summary ---
Demographics + + + | Address | [address] | | | [place] [address] | + + + | Home Phone | | + + + | Preferred Language | Unknown | + + + | Marital Status | Single | + + + | Yazidi Affiliation | 1001 | + + + | Race | White | + + + | Ethnic Group | Not or | + + + Author + + + | Author | [facility] | | | and Ryana | + + + | Organization | [facility] | | [...] Team Providers + +------+ + | Care Glue Mill Operator Name | Role | Phone | [...] Provider Unknown | | | | | [place], [place] | | | | | | [address] | (Fax) | | | | | [phone] | | | +--------+ + + + [...]
--- OUTSIDE RECORDS SUMMARY | ~2020-04-12 | XMS | Encounter Summary ---
Demographics + + + | Address | [address] | | | [place] [address] | + + + | Home Phone | | + + + | Preferred Language | Unknown | + + + | Marital Status | Single | + + + | Moravian Affiliation | 1001 | + + + | Race | White | + + + | Ethnic Group | Not or | + + + Author + + + | Author | [facility] | | | and Ryana | + + + | Organization | [facility] | | | and [...] Team Providers + +------+ + | Care Hoop Flaring Machine Operator Name | Role | Phone | + +------+ + | Shavon Covington | PCP | | + +------+ + Encounter Details +--------+ + + + + | Date | Type | Department | Care Team | Description | +--------+ + + + + | 04/18/ | Emergency | [facility] | No, Physician p | Procedure and | | 2017 | | [facility] | | treatment not | | | | CENTER [address] | | carried out due to | | | | [place] | | patient leaving | | | | [address] | | prior to being seen | | | | [phone] | | by health care | | | | | | provider (Primary | | | | | | Dx) | +--------+ + + + + [...] INFORMATION | KELLY | Routin | | 04/18/2017 11:33 AM | | EXCHANGE | | e | | PDT | + +------+--------+ + + documented as of this encounter Procedures + +--------+ + + + | Procedure Name | Priori | Date/Time | Associated Diagnosis | Comments | | | ty | | | | + +--------+ + + + | ED INFORMATION | Routin | 04/18/2017 | | | | EXCHANGE | e | 11:33 AM | | | | | | PDT | | | + +--------+ + + + +---+--------+ | | | | | Proced | | | ure | | | Note - | | | Scottie, | | | Lab In | | | | | | Hlseve | | | n - | | | 04/18/ | | | 2017 | | | 11:33 | | | AM PDT | | [...] | | | ON?/ | | | / | | | 7 | | | 11:30? | | | VU | | | , | | | [facility] | | | [place] | | | J?MRN: | | | | | | [id number] | | | [id number] | | | his | | | [...] | | | St. | | | [place] | | | y | | | [...] | | | St. | | | [place] | | | y H. | | [...] | | | St. | | | [place] | | | y H. | | [...] | | | St. | | | [place] | | | y H. | | [...] | | | St. | | | [place] | | | y H. | | [...] | | | St. | | | [place] | | | y H. | | [...] | | | Center | | | 6 0 | | | [facility] | [facility] | | | [place] | | | y | | | Hospit | | | al 11 | | | 0 | | | Total | | | 17 0 | | | Note: | | [...] | | | ext. | | | [phone] | | | or go | | [...] + | Diagnosis | + + | Procedure and treatment not carried out due to patient leaving prior to being seen by | | health care provider - Primary | + + documented in this encounter"
--- OUTSIDE RECORDS SUMMARY | ~2020-04-12 | XMS | Encounter Summary ---
Demographics + + + | Address | [address] | | | [place] [address] | + + + | Home Phone [...] Team Providers + +------+ + | Care Carpenter And Joiner Name | Role | Phone | + [...] 04/19/ | Emergency | [facility] | Shon Wyatt, | Uncontrolled type 1 | | 2017 | | [facility] | [address] | diabetes mellitus | | | | CENTER [address] | [place] [address] | with hyperglycemia | | | | [place], [place] | [place] [address] | (FORMERLY [facility]) (Primary Dx); | | | | [address] | [phone] | Type 2 diabetes | | | | [phone] | | mellitus without | | | | | | complication, with | | | | | | long-term current | | | | | | use of insulin | | | | | | (FORMERLY [facility]); Chest pain in | | | | [...] as of this encounter Discharge Instructions Instructions Shon Wyatt MD - 04/19/2017Get glucometer and resume checking [...] documented as of this encounter ED Notes Shon Wyatt MD - 04/19/2017 9:04 AM PDTFormatting of this note might be different fro m the original. [facility] Joni Kwon Emergency Department Encounter Note [address] [place] [id number] PCP:Shavon Covington, DENIS [phone] CHIEF COMPLAINT: Chief Complaint Patient presents with High Blood Sugar (Symptomatic) ED Room: ED11/ED11 TRIAGE: ED Triage Notes, ED Triage Notes Tania Mckeon RN 04/19/2017 9:04 Pt c/o upper abd pain that radiates into his back x 3 days. Pt c/o n/v. Pt is diabetic and sugars are "high". HPI Joni Kwon is a 36 y.o. male who presents to the Emergency Department with 3 days of a pressure-like pain in his right posterior chest and right lateral lower chest upper abdomen but not really in the epigastric area at all. He reports nausea with repeated vomiting thi s morning but none yesterday. He says he never had this pain before and this has not been u sing alcohol. He says his blood sugar is high today. Homeless and staying at the halfway. He reports a slight cough. He says it feels like the pain is behind his esophagus. His nu rse reports he came in to be seen yesterday, drank some coffee with a lot of sugar in it and said he was fine and left without being seen by physician. He said he took 5 units of regu lar insulin this morning less than an hour ago then ate and vomited some of his food. He sa ys he lost his glucometer so has not been checking his blood sugar. He thinks he left with some more PAST MEDICAL & SURGICAL HISTORY Past Medical History: Diagnosis Date ADHD (attention deficit hyperactivity disorder) Depression Unclear of major depression vs bipolar depression Diabetes mellitus (HCC) Type 1 diabetes Schizophrenia (HCC) Past Surgical History: Procedure Laterality Date TONSILLECTOMY I reviewed past medical history, medications and allergies at presentation. Patient says wesley wilcox has ADHD and depression and may be bipolar disorder but not schizophrenia and says he's be en misdiagnosed. He reports prior psychiatric evaluations in the [place] areas and they did not feel he had schizophrenia. CURRENT MEDICATIONS Previous Medications ALBUTEROL 90 MCG/PUFF INHALER Inhale 2 puffs into the lungs every 6 hours as needed for Wheezing. INSULIN GLARGINE (LANTUS) 100 UNITS/ML INJECTION (VIAL) Inject 20 Units under the skin nightly. INSULIN LISPRO (HUMALOG) 100 UNITS/ML INJECTION (VIAL) Inject 5 Units under the skin 3 times daily (before meals). Plus sliding scale ONDANSETRON (ZOFRAN ODT) 4 MG DISINTEGRATING TABLET Take 1 tablet by mouth every 6 hour s as needed. ALLERGIES Allergies Allergen Reactions Haloperidol Swelling Insulin Detemir Swelling Risperidone Other (See Comments) "sleeps too long" FAMILY AND SOCIAL HISTORY Family History Problem Relation Age of Onset Diabetes Maternal Grandfather Diabetes Maternal Grandmother Social History Social History Marital status: Single [...] Social History Narrative None REVIEW OF SYSTEMS As in history of present illness. He reports some shortness of breath at times and uses an inhaler and smokes. no shortness of breath in the last couple days. He denies other sympt oms. A 10 system review was otherwise negative. PHYSICAL EXAM VITAL SIGNS: (first vital signs):Temp: 36.8 C (98.2 F) Pulse: 91 Resp: 16 SpO2: 98 % BP : (!) 138/93 Constitutional: male patient, No acute distress. Thin. Points to his lateral and casket liner ior right lower chest the site of this pressure-like pain Head: Atraumatic, no facial asymmetry Eyes: PER, eyes clear of redness. ENT: External ears appear normal, mouth slightly dry Neck: Supple with good range of motion, no JVD Respiratory: No respiratory distress, Good air movement bilaterally. No rales or wheezing Cardiovascular: Normal S1 S2, no murmur Abdomen: Soft, nontender. No rebound, guarding, or masses. No pulsatile masses Extremities: Atraumatic without deformities, No lower extremity edema, no calf asymmetry. Skin: Warm, Dry, No rashes Neurologic: Alert & oriented. Not anxious. No focal deficits., Speech normal, gait not te sted Psychiatric: Normal mood and flat affect. EKG 12-lead EKG shows normal sinus rhythm at 82 no acute changes LABS Results for orders placed or performed during the hospital encounter of 04/19/17 CBC with Differential Result Value Ref Range WBC 4.3 4.0 - 11.0 K/uL RBC 4.16 (L) 4.30 - 5.70 M/uL Hgb 13.6 13.5 - 18.0 g/dL Hct 39.3 (L) 40.0 - 51.0 % MCV 94.5 83.0 - 101.0 fL MCH 32.8 28.0 - 35.0 pg MCHC 34.7 32.0 - 36.0 g/dL RDW-CV 13.4 <15.0 % Platelet Count 194 140 - 440 K/uL MPV 8.4 fL % Neutrophils 73.0 45.0 - 82.0 % % Lymphocytes 16.9 (L) 20.0 - 45.0 % % Monocytes 6.4 4.0 - 12.0 % % Eosinophils 2.6 0.0 - 5.0 % % Basophils 1.1 (H) 0.0 - 1.0 % Absolute Neutrophils 3.10 1.80 - 8.50 K/uL Absolute Lymphocytes 0.70 0.60 - 3.20 K/uL Absolute Monocytes 0.30 0.00 - 1.00 K/uL Absolute Eosinophils 0.10 0.00 - 0.40 K/uL Absolute Basophils 0.00 0.00 - 0.10 K/uL Comprehensive Metabolic Panel Result Value Ref Range NA 127 (L) 136 - 149 mmol/L K 5.1 3.5 - 5.1 mmol/L CL 92 (L) 98 - 109 mmol/L CO2 24 24 - 31 mmol/L ANION GAP 11 3 - 16 mmol/L GLUCOSE 794 (HH) 70 - 109 mg/dL BUN 14 7 - 18 mg/dL Creatinine, Serum/Plasma 1.10 0.60 - 1.30 mg/dL eGFR if not >60 >=60 mL/min/1.73m2 CALCIUM 9.1 8.3 - 10.5 mg/dL ALBUMIN 3.5 3.2 - 5.0 g/dL BILIRUBIN TOTAL 1.2 0.1 - 1.5 mg/dL Total protein 5.4 (L) 6.0 - 7.8 g/dL AST 25 10 - 42 U/L ALT 23 6 - 45 U/L ALK PHOS 87 40 - 110 U/L GLOBULIN 1.9 (L) 2.1 - 3.8 g/dL Albumin/Globulin ratio 1.8 0.8 - 2.0 BUN/CREA 12.7 Beta Hydroxybutyrate, Quant Result Value Ref Range Beta Hydroxybutyrate 2.65 (H) 0.02 - 0.27 mmol/L Lipase Result Value Ref Range LIPASE 24 0 - 60 U/L Extra Gold Top Tube Result Value Ref Range EGDT Done Extra Blue Top Tube Result Value Ref Range Extra Blue Top Tube Done Basic Metabolic Panel Result Value Ref Range NA 131 (L) 136 - 149 mmol/L K 4.1 3.5 - 5.1 mmol/L CL 101 98 - 109 mmol/L CO2 25 24 - 31 mmol/L ANION GAP 5 3 - 16 mmol/L GLUCOSE 515 (H) 70 - 109 mg/dL BUN 14 7 - 18 mg/dL Creatinine, Serum/Plasma 0.84 0.60 - 1.30 mg/dL eGFR if not >60 >=60 mL/min/1.73m2 CALCIUM 8.5 8.3 - 10.5 mg/dL BUN/CREA 16.7 POC Glucose Result Value Ref Range Glucose, POC >600 (HH) 70 - 109 mg/dL POC Glucose Result Value Ref Range Glucose, POC 542 (H) 70 - 109 mg/dL ECG 12 lead Result Value Ref Range INTERPRETATION TEXT Not Confirmed IMAGING STUDIES (X-Rays interpreted by ED Physician) Two-view chest x-ray no acute process on preliminary interpretation Xr Chest Pa And Lateral Result Date: 04/19/2017 EXAM: XR CHEST PA AND LATERAL dated 04/19/2017 9:22 AM HISTORY: Chest pain Comparison: 2016 TECHNIQUE: Frontal and lateral views of the chest. FINDINGS: The lungs are symm etrically aerated. They are clear. There are no pleural effusions. There is no pneumothor ax. The cardiac and mediastinal contours are not enlarged. The visible osseous structures are unremarkable. IMPRESSION - No radiographic evidence for acute disease in the chest. Dic tated and Signed by: Dean Nance MD Electronically signed: 04/19/2017 10:09 AM ED COURSE & MEDICAL DECISION MAKING Pertinent Labs & Imaging studies were reviewed along with EMS notes and care home record s if applicable. (See chart for details) Medications and Allergy list reviewed. Nurses note and old records were reviewed The patient was seen and examined, given IV fluids with Zofran and labs ordered 1007 labs show uncontrolled diabetes without acidosis and normal potassium so insulin order ed. 1045 patient recheck feeling better wanting to go home after current bag in. has received 1 .5 L, will recheck BMP. Prescription written for glucometer this was tied to a diagnosis of type II diabetes which I believe is an error. 1145 recheck feeling much better and wanting to leave Department without further management or IV fluids even AMA, states he understands condition and is better and understands what n eeds to be done. I gave him a list of local providers accepting new patients but he can als o follow-up with his regular provider in [place] until he can get established locally. Hi s mother has arrived and is here with him wanting him to stay for further rehydration 1215 recheck chemistry panel improved, completing third liter of IV fluids Last Set of Vital Signs: Temp: 36.8 C (98.2 F) Pulse: 86 Resp: 16 SpO2: 98 % BP: (!) 14 FINAL IMPRESSION ICD-10-CM ICD-9-CM 1. Uncontrolled type 1 diabetes mellitus with hyperglycemia (HCC) E10.65 250.83 790.29 2. Type 2 diabetes mellitus without complication, with long-term current use of insulin (HC C)Inactive E11.9 250.00 Z79.4 V58.67 3. Chest pain in adultAcute R07.9 786.50 4. Non-intractable vomiting with nausea, unspecified vomiting type R11.2 787.01 Follow-up Information DENIS Paul In 3 days. Specialty: Family Nurse Practitioner Why: For re-check Contact information: [address] [address] [place] [address] Discharge Instructions Get glucometer and resume checking your glucose at least twice daily. Increase oral fluids when sugar is high Portions of this chart may have been created with [employer] voice recognition software. Occasi onal wrong-word or sound-alike substitutions may have occurred due to the inherent renee itations of voice recognition software. Please read the chart carefully and recognize, using context, where these substitutions have occurred Shon Wyatt MD 04/19/17 1216 Tania Blankenship RN - 04/19/2017 9:01 AM PDTPt c/o upper abd pain that radiates into his back x 3 days. Pt c/o n/v. Pt is diabetic and sugars are "high". Electronically signed by Tania Mckeon RN at 1 9:04 AM PDTdocumented in this encounter Plan of Treatment + [...] | | n - | | | 04/19/ | | | 2016 | | | 8:50 | | | [...] ON?/ | | | | | | 7 | | | 08:45? | | | VU | | | , | | | CHRISTELLE | | | IN | | | J?MRN: | | | | | | [id number] | | | [id number] | | | his | | | [...] | | | St. | | | [place] | | | y | | | [...] | | | St. | | | [place] | | | y H. | | [...] | | | St. | | | [place] | | | y H. | | [...] | | | St. | | | [place] | | | y H. | | [...] | | | St. | | | [place] | | | y H. | | [...] | | | St. | | | [place] | | | y H. | | [...] | | | St. | | | [place] | | | y | | | [...] | | | ext. | | | [id number] | | | or go | | [...] | | | [place] | | | [facility], | | | [place] - | | [...] [address] | [place] | [phone] | | [facility] | | [address] | | | - LABORATORY | | [...] 5 | 3 - 16 mmol/L | [facility] [...] | 0.84 | 0.60 - 1.30 | [facility] | [...] mL/min/1.73m2 | [facility] | | | [place] | RATE,ESTIMATED | | MEDICAL | | | | mL/min/1.17a3Lxlt than | | CENTER - | | [...] [address] | [place] | [phone] | | [facility] | | [address] | | | - LABORATORY | | [...] | | | | | [place] ([id number]) on | | | | | | [...] | Top Tube | | | [facility] | | [...] [address] | [place] | [phone] | | [facility] | | [address] | | | - LABORATORY | | [...] | Top Tube | | | [facility] | | | | | | [...] [address] | [place] | [phone] | | [facility] | | [address] | | | - LABORATORY | | | | + + + + + Lipase (04/19/2017 9:14 AM PDT) + +-------+ + + + | Component | Value | Ref Range | Performed | Pathologist | | | | | At | Signature | + +-------+ + + + | Lipase | 24 | 0 - 60 U/L | [facility] | | | | | | [facility] [...] [address] | [place] | [phone] | | [facility] | | [address] | | | - LABORATORY | | [...] + | [facility] | [address] | [place] | [phone] | | [facility] | | [address] | | | - LABORATORY | | [...] | | Critical Result called | | [facility] | | | | to and read back by | | MEDICAL | | | | Yessi Mckeon RN on | | CENTER - | | | | 04/19/2017 at 9:56 by | | LABORATORY | | | | Leigh Simmons. | | | | + + + + + + | BUN | 14 | 7 - 18 mg/dL | [facility] | | | | | | [facility] | | | | | | MEDICAL | | | | | | CENTER - | | | | | | LABORATORY | | + + + + + + | Creatinine | 1.10 | 0.60 - 1.30 | [facility] | | | | | mg/dL | [facility] | | | | | | MEDICAL | | | | | | CENTER - | | | | | | LABORATORY | | + + + + + + | eGFR, | >60Comment: GLOMERULAR | >=60 | [facility] | | | non- | FILTRATION | mL/min/1.73m2 | [facility] | | | [place] | RATE,ESTIMATED | | MEDICAL | | | | mL/min/1.53l5Rhcd than | | CENTER - | | [...] 3.5 | 3.2 - 5.0 g/dL | [facility] | | | | | | [facility] [...] + | [facility] | [address] | [place] | [phone] | | [facility] | | [address] | | | - LABORATORY | | | | + + + + + CBC with Differential (04/19/2017 9:14 AM PDT) + + + + + + | Component | Value | Ref Range | Performed | Pathologist | | | | | At | Signature | + + + + + + | White Blood | 4.3 | 4.0 - 11.0 K/uL | [facility] | | | Cells | | | [facility] | | [address] | [place] | [phone] | | [facility] | | [address] | | | - LABORATORY | | [...] ST. | [address] | [place] | [phone] | | [facility] | | [address] | | | - LABORATORY | | [...]
--- OUTSIDE RECORDS SUMMARY | ~2020-04-12 | XMS | Encounter Summary ---
Demographics + + + | Address | [address] | | | [place] [address] | + + + | Home Phone | | + + + | Preferred Language | Unknown | + + + | Marital Status | Single | + + + | Mormon Affiliation | 1001 | + + + | Race | White | + + + | Ethnic Group | Not or | + + + Author + + + | Author | [facility] | | | and Ryana | + + + | Organization | [facility] | | | [...] Team Providers + +------+ + | Care [employer] Name | Role | Phone | + +------+ + PCP | Unavailable | + +------+ + Encounter Details +--------+ + + + + | Date | Type | Department | Care Team | Description | +--------+ + + + + | 03/11/ | Hospital | [facility] | Shivam Garzon | | | 2003 | Encounter | [address] | DO [address] | | | | | [place], [place] | [place], [place] | | | | | [address] | [address] | | | | | [phone] | | | +--------+ + + + [...]
--- OUTSIDE RECORDS SUMMARY | ~2020-04-12 | XMS | Encounter Summary ---
Demographics + + + | Address | [address] | | | [place] [address] | + + + | Home Phone [...] Team Providers + +------+ + | Care Senior Product Manager Name | Role | Phone | + [...] | | | | | | | renal | | | | | | | failure, | | | | | | | unspecified | | | | | | | acute renal | | | | | | | failure type | | | | | | | ([facility]) | | | | | | | [...] | | | | | | | ([facility]) | | | +--------+--------+ + + + + Encounter Details +--------+ + + + + | Date | Type | Department | Care Team | Description | +--------+ + + + + | 09/26/ | Hospital | [facility] | Juanjose Ross MD | Diabetic | | 2016 - | Encounter | [facility] | [address] [facility] | ketoacidosis without | | | | [address] | [place] | coma associated | | 09/28/ | | [place] [address] | [id number] | with type 1 diabetes | | 2017 | | [phone] | | mellitus (HCC) | | | | | Yancy Barron MD | (Primary Dx); | | | | | [address] | Hyperkalemia; Acute | | | | | [place] | renal failure, | | | | | [id number] | unspecified acute | | | | | | renal failure type | | | | | | (HCC) | +--------+ + + + + Social [...] + + + | Blood Pressure | 114/75 | 09/28/2016 7:37 AM | | | | | PDT | | + + + + + | Pulse | 73 | 09/28/2016 7:37 AM | | | | | PDT | | + + + + + | Temperature | 36.3 C (97.3 F) | 09/28/2016 7:37 AM | | | | | PDT | | + + + + + | Respiratory Rate | 20 | 09/28/2016 7:37 AM | | | | | PDT | | + + + + + | Oxygen Saturation | 98% | 09/28/2016 7:37 AM | | | | | PDT | | + + + + + | Inhaled Oxygen | - | - | | | Concentration | | | | + + + + + | Weight | 53.1 kg (117 lb) | 09/27/2016 7:32 PM | | | | | PDT | | + + + + + | Height | 175.3 cm (5' 9") | 09/27/2016 1:46 AM | | | | | PDT | | + + + + + | Body Mass Index | 17.28 | 09/27/2016 1:46 AM | | | | | PDT [...] documented as of this encounter Discharge Summaries Yancy Barron MD - 09/28/2016 1:19 PM PDT DISCHARGE SUMMARY Patient Name: Joni Kwon : 1980 Date of Admission: 09/26/2016 Date of Discharge: 09/28/2016 Admitting Physician: Juanjose Ross MD Discharging Physician: Yancy Barron MD Primary Care Provider: DENIS Paul Discharge Diagnoses: Active Problems: * No active hospital problems. * Resolved Problems: * No resolved hospital problems. * Patient Active Problem List Diagnosis Type 2 diabetes mellitus without complication, with long-term current use of insulin Diabetic ketoacidosis without coma associated with type 1 diabetes mellitus ADHD (attention deficit hyperactivity disorder) Marijuana use Tobacco smoker Consultants: None Procedures: None Problem-Oriented Hospital Course: This is a 35 y.o. male with a past medical history significant for diabetes mellitus type I , history of diabetic ketoacidosis who presents with Vomiting with exam notable for tachyc ardia With labs sig for hyponatremia, hyperkalemia, anion gap metabolic acidosis, + B hyro ybutyrate, with leukocytosis. He was managed with insulin drip and his AG was closed. He addy l resume his lantus and will follow up with PMD in 1 week. Code Status: Full Code Disposition: HOME Discharge Condition: stable Follow-up Information Follow up In 3 days. Follow up with DENIS Paul In 1 week. Specialty: Family Nurse Practitioner Contact information: [address] [facility] [address] [place] [address] Discharge Medications Unchanged Medications Details insulin glargine 100 units/mL injection (vial) Inject 9 Units under the skin 2 times daily. aka: LANTUS insulin lispro 100 units/mL injection (cartridge) Inject 2 Units under the skin 3 times daily (before meals). Plus sliding scale. aka: humaLOG Discontinued Medications aspirin 81 mg chewable tablet KW-Bpsidhmsphkdp-Xqjyrtdnaugxe 10-5-325 MG Caps HYDROcodone-acetaminophen 5-325 mg per tablet aka: NORCO STRATTERA 100 MG capsule Generic drug: atoMOXetine Studies With Pending Results: None Greater than 30 minutes were spent on discharge and coordination of post-hospital care. Electronically signed by: Yancy Barron MD, 09/28/2016 13:20 [facility] documented in this enc ounter Discharge Instructions Instructions Yancy Barron MD - 09/28/2016Please follow up with your primary care doctor in 1 week. documented in this encounter Medications at Time [...] documented as of this encounter Progress Notes Hannah Mijares, PharmKosta - 09/27/2016 8:00 PM PDTFormatting of this note might be differ ent from the original. PHARMACY SERVICES: ADMISSION MEDICATION REVIEW Joni Kwon is a 35 y.o. male admitted on 09/26/16. Patient is not a reliable historian. Location of Patient when reviewed: [x] ED [] Medical Floor Patient s prior to admit medication and over the counter (OTC) medications/herbal supplem ents list obtained from: [x] Verbal interview [x] Patient ABLE to recall name, strength, and directions [] Patient UNABLE to recall name, strength, and direction [] Patient able to recall SOME Name, strength, and directions [] Patient not interviewed or unable to supply information due to: [] Patient/family member provided a complete current medication list or bottles [] MAR from SNF facility: [] Doctor's office: [x] Pharmacy list names: [facility] Morris [] [facility] ROLLER OPERATOR (Prescription Monitoring Program) [x] [employer] insurance reported information [x] Care Everywhere [] Other sources: Vaccines up to date? Yes No Unsure Influenza [x] [] [] Pneumococcal [x] [] [] Tdap [x] [] [] Shingles [] [x] [] Noted medications discrepancies or medication-related issues: Dosage change: Medication: Prior to Admission Sig: Correct sig: Insulin glargine 100 units/ml 9 units every morning 15 units once daily Insulin lispro 100 units/ml Inject under the skin 3 times daily (before meals). Per sliding scale 7 units under the skin 3 times daily (before meals) Recreational Drug Use: Drug: Route Frequency: Last Used: Marijuana lungs 3 times weekly unknown Other: Bi-Ossineke reports patient appears non-compliant with his medications. 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 as: Atomoxetine 100 mg 1 tablet every morning Pt states taking but last filled for 30 day suppl y in June DE-Nfncyvrwqdsrf-Wiotrdzyajmfe 10-5-325 mg 1 capsule daily as needed for congestion Not jose manuel ing Hydrocodone-acetaminophen 5-325 mg 1 to 2 tablets by mouth every 6 hours as needed for pain Has medication at home but has not taken Insulin glargine 100 units/ml 15 units once daily 9 units every morning and 9 units every n ight Insulin lispro 100 units/ml 7 units under the skin 3 times daily (before meals) 2 units 3 t imes daily (before meals) plus sliding scale Medication review performed and electronically signed by Luis Araujo, Brush Holder Inspector 017 19:12 Reviewed by: Hannah Mijares PHARMD 09/27/2016 19:55 documented in this encounter H&P Notes Juanjose Ross MD - 09/27/2016 12:14 AM PDT [facility] HISTORY AND PHYSICAL Pt. Name/Age/: Joni Kwon 35 y.o. 1980 Date of admission: 09/26/2016 Admitting Physician: Juanjose Ross MD Primary Care Provider: DENIS Paul CHIEF COMPLAINT: Vomiting HISTORY OF PRESENT ILLNESS: This is a 35 y.o. male with a past medical history significant for diabetes mellitus type I , history of diabetic ketoacidosis who presents with vomiting . Patient states that sympt oms started the day of admission. Patient states that he had emesis of fruity tasting subst ance. When this occurred he was afraid that he was trying to have DKA again. Patient state s that he's been taking his Lantus as prescribed at home. He states that his blood sugars a re becoming more elevated. I'll and dark urine. Patient denies fevers and/or chills. Patient notes that he has had a cough that is product mercy of yellow green and brown phlegm. PAST MEDICAL and SURGICAL HISTORY: Past Medical [...] drugs (Marijuana) about 3 times per week. REVIEW OF SYSTEMS: All systems were reviewed and were negative unless otherwise stated in HPI HOME MEDICATIONS: Current Discharge Medication List CONTINUE these medications which have NOT CHANGED Details aspirin 81 mg chewable tablet Take 81 mg by mouth Daily. atoMOXetine (STRATTERA) 100 MG capsule Take 100 mg by mouth every morning. ZV-Qvsapiulksymr-Xodtmpsqtsvzh 10-5-325 MG CAPS Take 1 capsule by mouth Daily as needed (fo r sinus congestion). HYDROcodone-acetaminophen (NORCO) 5-325 mg per tablet Take 1-2 tablets by mouth every 6 kingston rs as needed for Pain. Qty: 15 tablet, Refills: 0 insulin glargine (LANTUS) 100 units/mL injection (vial) Inject 9 Units under the skin every morning. insulin lispro (HUMALOG) 100 units/mL injection (cartridge) Inject under the skin 3 times daily (before meals). Per sliding scale. ALLERGIES: Allergies Allergen Reactions Haloperidol Swelling Insulin Detemir Swelling Risperidone Other (See Comments) "sleeps too long" VITAL SIGNS: Temp: 35.5 C (95.9 F), Pulse: 101, Resp: 20, BP: 134/74 mmHg, SpO2 100 % on room air at flow rate L/min Temp Min: 35.5 C (95.9 F) Max: 36.2 C (97.2 F) Weight: 53.524 kg (118 lb) PHYSICAL EXAMINATION:2 Gen Scott - alert, cooperative and no distress Head - Normocephalic, without obvious abnormality, atraumatic Eyes - PERRL, conjunctiva/corneas clear, EOM's intact both eyes ENT - mucous membranes dry, Nares with dried red blood Neck - supple Lungs - good air movement bilat + rhonchi Heart - tachycardia w/o m/r/g Abdomen - obese Normoactive bowel sounds, non-tender non-distended Extremities - no peripheral edema, no clubbing or cyanosis Skin - dry skin Neurologic - Alert and oriented x 3. CN II-XII intact. strength- moves all extremities Reflexes 2+ bilateral biceps, triceps, & patellar DIAGNOSTIC STUDIES: Available data and images were reviewed personally. Significant results and findings are a ddressed here or in the Assessment and Plan. Lab Results Component Value Date HGB 11.6* 09/27/2016 HCT 34.0* 09/27/2016 PLT 285 09/27/2016 WBC 15.6* 09/27/2016 Lab Results Component Value Date NA 131* 09/27/2016 K 4.8 09/27/2016 CL 96* 09/27/2016 CO2 6* 09/27/2016 CREA 1.98* 09/27/2016 BUN 31* 09/27/2016 MG 2.5 09/27/2016 PHOS 6.3* 09/27/2016 GLUCOSE, POC Date/Time Value Ref Range Status 09/27/2016 03:03 379* 70-150 mg/dL Final 09/27/2016 01:33 566* 70-150 mg/dL Final 09/27/2016 00:24 >600* 70-150 mg/dL Final No results found. EKG: Reviewed independently by me. The tracing shows sinus tachycardia CXR- No acute infiltrate ASSESSMENT and PLAN: This is a 35 y.o. male with a past medical history significant for diabetes mellitus type I , history of diabetic ketoacidosis who presents with Vomiting with exam notable for tachyca rdia With labs sig for hyponatremia, hyperkalemia, anion gap metabolic acidosis, + B hyroyb utyrate, with leukocytosis Diabetic ketoacidosis without coma: We'll start patient on insulin drip per DKA protocol. Acute bronchitis- Will give azithromycin Diabetes mellitus type I: Patient being treated for DKA. We'll resume his Lantus once his DKA has resolved Anion-Gap metabolic acidosis (DKA). Hyponatremia: Hypovolemic hyponatremia we'll give IV fluids. Hyperkalemia likely related to his acidemia. We'll keep patient nothing by mouth w hile he is on the DKA protocol. DVT Prophylaxis Enoxaparin SC Code Status Full code CMS Documentation Statement certifies that this admission will likely be greater than 2 midnights and pulse h ospital discharge will be to home. Total of 75 minutes were required to complete the admission process. Electronically signed by: Juanjose Ross MD 09/27/2016 3:[address] [facility] documented in this enc ounter Consult Notes Henry Jacobs V, RDN - 09/27/2016 3:11 PM PDTAssociated Order(s): IP CONSULT TO NUTRITION SERVICES NUTRITION THERAPY NOTE Summary: Pt admitted for DKA with hx of being homeless with poor diabetes management. I a ttempted to meet with him 3 times today. The third time he was the most alert, however he w as still groggy and somewhat hard to understand. He commented that he lives with his mother and sisters. There is not enough money for food therefore he is not able to eat properly o r control his BG values. He was able to state what he has been taught about how he is suppo se to eat. Currently his appetite has improved and he is requesting full meals with snacks between. He does meet ASPEN criteria for severe-protein calorie malnutrition r/t poor recen t oral intake, unintended weight loss (BMI 18), muscle wasting, and fat loss. Estimated Energy and Protein Needs: (based on 55 kg) Kcal needs: 2294-8809 Kcals/day Protein needs:65-80 grams of protein/day Fluid goal:3272-9396 cc fluid per day Nutrition Diagnosis: Severe protein-calorie malnutrition Type, Severe: Chronic illness Weight Loss: Greater than 7.5% in 3 months (BMI 17.4) Energy Intake: DM poorly controlled Body Fat: Subcutaneous loss Muscle Mass: Muscle wasting Fluid Accumulation: Trace edema Nutrition Plan of Care: Nutrition Diagnosis: Malnutrition, not ready for diet/lifestyle change related to unstable living situation and lack of finances for diet to help BG control as evidenced by pt commen ts and unintended weight loss. Interventions: 1. Will f/u as pt's condition improves 2. Pt is making own menu selections 3. Snacks tid Nutrition Goals: 1. Adequate energy and protein intake to meet his assessed energy and protein needs 2. Weight gain Monitor: 1. Pt intake 2. Nutrition related changes F/u in 3 days. Available as needed, ext [phone] Assessment: Diet Order: For your reference, current, active order is: Diet consistent carb; dental soft; Effective Now Labs: Recent Labs 09/27/16 1128 09/27/16 0927 09/27/16 0727 09/26/16 2255 NA 136 137 138 < > 126* K 4.5 4.1 5.0 < > 6.2* CL 106 107 106 < > 86* BUN 18 19* 22* < > 34* CREA 1.11 1.17 1.43* < > 2.25* ALBUMIN -- -- -- -- 4.2 MG 2.0 2.0 2.2 < > -- PHOS 3.2 2.2* 2.7 < > -- < > = values in this interval not displayed. Anthropometrics: Height: 175.3 cm (5' 9") Weight: 53.5 kg (117 lb 15.1 oz) Wt Readings from Last 3 Encounters: 09/27/16 53.5 kg (117 lb 15.1 oz) 09/23/16 53.524 kg (118 lb) 06/21/16 58.3 kg (128 lb 8.5 oz) Body mass index is 17.41 kg/(m^2). Electronically Signed by: HENRY JACOBS RDN, CDE 09/27/2016 15:11 Katie , Ursula Young RN - 09/27/2016 12:01 PM PDTAssociated Order(s): IP CONSULT TO PROSTHETIC DENTIST manager privacy Patricia called to request strips for this patient. Patricia stated that he was homele ss and did not have any strips. I took the patient a Contour Next blood glucose meter with 60 strips. Patient was very groggy. I introduced myself and explained that I was giving hi m a new meter with 60 strips because these strips would not work in his meter. Electronical ly signed by Ursula Haskins RN at 09/27/2016 12:04 PM PDTdocumented in this encounter ED Notes Edgar Nunez MD - 09/26/2016 11:18 PM PDTFormatting of this note might be different fro m the original. eMERGENCY dEPARTMENT eNCOUnter CHIEF COMPLAINT Chief Complaint Patient presents with Emesis HPI Joni Kwon is a 35 y.o. male who presents with vomiting and rapid breathing. He has vomited 6 times today. Patient has a history of poorly controlled diabetes and has had multiple recent admissions for DKA. He denies any fevers. He is homeless. Accompanied by his mother. He has not had any diarrhea today. He has had decreased urine output. PAST MEDICAL HISTORY Past Medical History Diagnosis Date Diabetes mellitus (HCC) Depression Unclear of major depression vs bipolar depression ADHD (attention deficit hyperactivity disorder) SURGICAL HISTORY Past Surgical History Procedure Laterality Date Tonsillectomy CURRENT MEDICATIONS Previous Medications ASPIRIN 81 MG CHEWABLE TABLET Take 81 mg by mouth Daily. ATOMOXETINE (STRATTERA) 100 MG CAPSULE Take 100 mg by mouth every morning. CD-FTDWVQFNYSSAL-UMMWUAGUIVRBZ 10-5-325 MG CAPS Take 1 capsule by mouth Daily as needed (for sinus congestion). HYDROCODONE-ACETAMINOPHEN (NORCO) 5-325 MG PER TABLET Take 1-2 tablets by mouth every 6 hours as needed for Pain. INSULIN GLARGINE (LANTUS) 100 UNITS/ML INJECTION (VIAL) Inject 9 Units under the skin e very morning. INSULIN LISPRO (HUMALOG) 100 UNITS/ML INJECTION (CARTRIDGE) Inject under the skin 3 ti mes daily (before meals). Per sliding scale. ALLERGIES Allergies Allergen Reactions Haloperidol Swelling Insulin [...] None Social History Narrative REVIEW OF SYSTEMS A 12 system review of systems is otherwise negative except as noted in the HPI above. PHYSICAL EXAM VITAL SIGNS: (first vital signs):Temp: 36.2 C (97.2 F) Pulse: 112 Resp: 30 SpO2: 100 % BP: (!) 134/101 mmHg Constitutional: Disheveled, poorly nourished, strong smell of ketones, tachypneic HENT: Normocephalic, Atraumatic, Bilateral external ears normal, Oral mucosa dry, posterio r pharynx no exudates, Nose normal. Neck-supple, nontender, no meningismus, No stridor. Eyes: PERRL, EOMI, Conjunctiva normal, No discharge. Respiratory: Breath sounds equal bilaterally, no adventitious sounds, No chest wall tender ness. Cardiovascular: Tachycardic, normal S1, S2, no murmurs, rubs, or gallops GI: Abdomen soft, non-tender, non-distended, normal bowel sounds, no CVA tenderness : Musculoskeletal: Intact distal pulses, No edema, No tenderness, No cyanosis. Good range of motion in all major joints. No tenderness to palpation or major deformities noted. Back- No tenderness. Skin: Warm, Dry, No erythema, No rash or lesions. Lymphatic: Neurologic: Alert & oriented x 3, Cranial nerves II-XII intact, Normal sensation, motor, a nd strength in all four extremities, No focal deficits noted. Psychiatric: Affect normal, Judgment normal, Mood normal. Labs Reviewed CBC WITH DIFFERENTIAL - Abnormal; Notable for the following: WBC 13.8 (*) RBC 4.15 (*) MCV 103.4 (*) MCHC 31.8 (*) % Lymphocytes 14.6 (*) Absolute Neutrophils 10.30 (*) Absolute Monocytes 1.40 (*) All other components within normal limits COMPREHENSIVE METABOLIC PANEL - Abnormal; Notable for the following: NA 126 (*) K 6.2 (*) CL 86 (*) CO2 <5 (*) GLUCOSE 839 (*) BUN 34 (*) Creatinine, Serum/Plasma 2.25 (*) eGFR if not 33 (*) BILIRUBIN TOTAL 2.4 (*) ALT 66 (*) ALK PHOS 130 (*) All other components within normal limits BLOOD GAS, VENOUS - Abnormal; Notable for the following: pH, Venous 6.97 (*) pCO2, Venous 0 (*) pO2, Venous 51 (*) All other components within normal limits BETA HYDROXYBUTYRATE, QUANT - Abnormal; Notable for the following: Beta Hydroxybutyrate >9.00 (*) All other components within normal limits POC GLUCOSE - Abnormal; Notable for the following: Glucose, POC >600 (*) All other components within normal limits POC GLUCOSE - Abnormal; Notable for the following: Glucose, POC >600 (*) All other components within normal limits EXTRA GREEN TOP TUBE EXTRA GOLD TOP TUBE EXTRA BLUE TOP TUBE EXTRA LAVENDER TOP TUBE EXTRA GREEN TOP TUBE RADIOLOGY CT Results: No results found. EKG Interpretation Interpreted by me Rhythm: Sinus tachycardia Rate: 115 Avery: normal Ectopy: none Conduction: normal ST Segments: no acute change T Waves: no acute change Q Waves: none Clinical Impression: Sinus tachycardia ED COURSE & MEDICAL DECISION MAKING Pertinent Labs & Imaging studies reviewed. (See chart for details) Patient presents with signs and symptoms of diabetic ketoacidosis. Laboratory evaluation sh ows a blood sugar of 839 with a pH of 6.97. Greater than 9 is his beta hydroxybutyrate. He w as also noted to be hyperkalemic with a K of 6.2 without any EKG changes. Creatinine was 2.2 5. Patient was given IV fluids and insulin and Zofran. He will be admitted to the ICU for fu rther inpatient management. Total critical care time for this patient greater than 60 minute s not including separately billable procedures. Last Set of Vital Signs: Temp: 36.2 C (97.2 F) Pulse: 120 Resp: 21 SpO2: 100 % BP: (!) 137/99 mmHg FINAL IMPRESSION 1. Diabetic ketoacidosis without coma associated with type 1 diabetes mellitus (HCC) 2. Hyperkalemia 3. Acute renal failure, unspecified acute renal failure type (HCC) PLAN inpatient admission Edgar Nunez MD 09/27/16 0048 document ed in this encounter Miscellaneous Notes Plan of Jesus - Amy Dorado - 09/28/2016 1:54 PM PDTBenabdifatah will discharge today. He wi ll not have any needs. His mom will transport him home. Electronically signed by: Amy Dorado 09/28/2016 13:56 lan of Magnolia Nieto RN - 09/28/2016 3:48 AM PDTProblem: Patient Care Overview (Adult) Goal: Care Team Goals & Evaluation PROBLEM-RELATED GOALS: 1. Joni will maintain Blood sugars in range of 80-120 off insulin drip by 09/28/16. 2. Joni will demonstrate closed anion gap within 12 hours of admission. 3. Joni will maintain VS WAL by 09/28/16. 4. Joni will be able to state basic knowledge of Diabetes care by 09/29/16. 5. Joni will be able to state basic knowledge of adequate nutrition by 09/29/16. 6. Joni will remain free of falls by 09/29/16 STRATEGY TO ACHIEVE GOALS: - 1hr BS checks while Pt. Is on insulin drip. AC&HS and PRN BS checks once Pt off drip. - Close monitoring of anion gap values. - Close monitoring of Pt. VS. - Diabetic education consultation initiated. - Nutritional consultation initiated. - Pt will be instructed electric gas appliances demonstrator light use, room lighting will be maintained appopriately, r oom will be kept clutter free. grippy socks will be used when out of bed. RESTRAINT-RELATED GOALS: STRATEGIES TO ACHIEVE RESTRAINT GOALS: Goal Evaluation: Joni Kwon is A&O x4. He has been calm and appropriate during shift. He has bee n free of falls, and slept in between cares. No new skin break down noted. Pt. Denies pain, and his VS were: BP 124/82 mmHg | Pulse 83 | Temp(Src) 36.1 C (97 F) (Oral) | Resp 20 | Ht 1.753 m (5' 9") | Wt 53.071 kg (117 lb) | BMI 17.27 kg/m2 | SpO2 100% on RA. Patient's BG was: 513 initially during shift; MD notified, and a new order set for HUMALOG and LANTUS we re placed. He slept in between cares. Last BG at 0145: 145. lan of Care - Ramon Meyers RN - 09/27/2016 7:43 PM PDTReceived from ICU report received from blake arthur RN. C/O dyspepsia not relieved with tums, order received for ppi & mallox. No oth er complaints at this time eICU Note - Arleth Tomas RN - 09/27/2016 5:40 PM PDTTransferred to room [address]. Tele [address] lan of Care - Z richard, Arleth Condon RN - 09/27/2016 5:29 PM PDTProblem: Patient Care Overview (Adult) Goal: Care Team Goals & Evaluation PROBLEM-RELATED GOALS: 1. Joni will maintain Blood sugars in range of 80-120 off insulin drip by 09/28/16. 2. Joni will demonstrate closed anion gap within 12 hours of admission. 3. Joni will maintain VS WAL by 09/28/16. 4. Joni will be able to state basic knowledge of Diabetes care by 09/29/16. 5. Joni will be able to state basic knowledge of adequate nutrition by 09/29/16. 6. Joni will remain free of falls by 09/29/16 STRATEGY TO ACHIEVE GOALS: - 1hr BS checks while Pt. Is on insulin drip. AC&HS and PRN BS checks once Pt off drip. - Close monitoring of anion gap values. - Close monitoring of Pt. VS. - Diabetic education consultation initiated. - Nutritional consultation initiated. - Pt will be instructed electric gas appliances demonstrator light use, room lighting will be maintained appopriately, r oom will be kept clutter free. grippy socks will be used when out of bed. RESTRAINT-RELATED GOALS: STRATEGIES TO ACHIEVE RESTRAINT GOALS: Outcome: Improving Goal Evaluation: Insulin drip off around 10 am. Requesting small frequent snacks. VSS. Glucose prior to d inner 383, covered per SS insulin. To transfer to [address] [place] [address] on telemetry. Report to Hira Vyas RN lan of Care - Jose Rafael Bell Chaplain - 09/27/2016 2:56 PM PDT Spiritual Care Joni Kwon is a 35 y.o. male who is admitted for Hyperkalemia [E87.5] Acute renal failure, unspecified acute renal failure type (HCC) [N17.9] Diabetic ketoacidosis without coma associated with type 1 diabetes mellitus (HCC) [E10.10]. Spiritual Evaluation: Unknown if patient is spiritual. Spiritual Intervention: Pastoral Presence, Active Listening Spiritual Outcomes: Patient seemed to be appreciative of chronometer assembler and adjuster's visit. Spiritual Goals / Follow-up: Will see the patient as requested. If there are any other spiritual care issues that arise, please contact chronometer assembler and adjuster. lan of Care - Ursula Haskins RN - 09/27/2016 12:05 PM PDTProblem: Diabetes, Type 1 (Adult) Prevent and manage potential problems includin. diabetic ketoacidosis (DKA)2. impaired g lycemic control3. hypoglycemia4. situational response Goal: Signs and Symptoms of Listed Potential Problems Will be Absent or Manageable (Diabete s, Type 1) Signs and symptoms of listed potential problems will be absent or manageable by discharge/t ransition of care (reference Diabetes, Type 1 (Adult) CPG). Outcome: Unchanged Please see inpatient consult completed today. lan of Jesus - Patricia Matos RN - 09/27/2016 11:36 AM PDTProblem: Discharge Planning Goal: Patient will be discharged in a safe manner Outcome: Unchanged This CM met with patient briefly to begin his discharge plan process. He did confirm that his PCP is DENIS Diallo, in [place], [place], and that is where both his mother and he stay. When asking him if his mother was going to transport him home, he stated he was not sure at this time. He just has been admitted so CM will work with him at a later time regarding where he will be going and with what transport. He does have [facility] Medicaid. He states that he has been a type I diabetic since age 4 yrs. It was reported that he does not have any more strips at home to monitor his glucose, but wesley wilcox does have the glucometer and the lancets. It was also reported that patient and his mother are homeless and that they couch surf. This CM called DARRYL Vergara educator, and she will bring up a new glucometer and strips. Patient was very lethargic at the time of first visit, so will need to visit him when he is more awake. This CM also left message with his mother, Blossom, requesting a return call to this CM whe n available. CM will also need to address patient's food issues. Per production cell leader, patient stated that he d oes not have enough food. Electronically signed by: Patricia Matos RN 09/27/2016 11:36 nterim Summary - Yancy Contreras MD - 09/27/2016 7:51 AM PDT Addendum H&P, Labs, Scans read and appreciated. Seen this AM in ICU, appears very lethargic. He is nauseous and has vomited non -bloody/ no n bilious overnight. Remains on Insulin Drip Vitals stable, thin appearing male in no acute distress Lungs CTA, good air entry S1, S2, no murmurs No edema No focal deficits C/w Insulin drip until AG closes. Then start Lantus his home dose in conjunction with Diabe tic Diet. Aggresively replete lytes. C/w IVF. Renal function is improving. ABG noted, its a venous specimen. He is Serum bicarb 11 improved from 5 Mag and phos are normal. Leukocytosis is reactive 2/2 to AGMA DKA. Continue rest of care as per HPI. D Triage Notes - Flavia Montana RN - 09/26/2016 10:35 PM PDTPatient reports rapid breathing and vomiting today. His mother reports about six episodes of vomiting today. States he is homeless diab etic and has not been able to check his blood sugar, but has been taking his insulin.Electro nically signed by Flavia Nava RN at 09/26/2016 10:56 PM PDTdocumented in this enco unter Plan of Treatment Not on filedocumented as of this encounter Procedures + +--------+ + + + | Procedure Name | Priori | Date/Time | Associated Diagnosis | Comments | | | ty | | | | + +--------+ + + + | POC GLUCOSE | Routin | 09/28/2016 | | Results for this | | | e | 12:08 PM | | procedure are in the | | | | PDT | | results section. | + +--------+ + + + | CBC NO DIFFERENTIAL | Routin | 09/28/2016 | | Results for this | | | e | 5:23 AM | | procedure are in the | | | | PDT | | results section. | + +--------+ + + + | BASIC METABOLIC | Routin | 09/28/2016 | | Results for this | | PANEL | e | 5:23 AM | | procedure are in the | | | | PDT | | results section. | + +--------+ + + + | POC GLUCOSE | Routin | 09/28/2016 | | Results for this | | | e | 1:45 AM | | procedure are in the | | | | PDT | | results section. | + +--------+ + + + | POC GLUCOSE | Routin | 09/27/2016 | | Results for this | | | e | 9:35 PM | | procedure are in the | | | | PDT | | results section. | + +--------+ + + + | POC GLUCOSE | Routin | 09/27/2016 | | Results for this | | | e | 5:00 PM | | procedure are in the | | | | PDT | | results section. | + +--------+ + + + | PHOSPHORUS | Routin | 09/27/2016 | | Results for this | | | e | 3:42 PM | | procedure are in the | | | | PDT | | results section. | + +--------+ + + + | MAGNESIUM | Routin | 09/27/2016 | | Results for this | | | e | 3:42 PM | | procedure are in the | | | | PDT | | results section. | + +--------+ + + + | BASIC METABOLIC | Routin | 09/27/2016 | | Results for this | | PANEL | e | 3:42 PM | | procedure are in the | | | | PDT | | results section. | + +--------+ + + + | PHOSPHORUS | STAT | 09/27/2016 | | Results for this | | | | 11:28 AM | | procedure are in the | | | | PDT | | results section. | + +--------+ + + + | MAGNESIUM | STAT | 09/27/2016 | | Results for this | | | | 11:28 AM | | procedure are in the | | | | PDT | | results section. | + +--------+ + + + | BASIC METABOLIC | STAT | 09/27/2016 | | Results for this | | PANEL | | 11:28 AM | | procedure are in the | | | | PDT | | results section. | + +--------+ + + + | URINALYSIS WITH | Routin | 09/27/2016 | | Results for this | | MICROSCOPIC WITH | e | 11:26 AM | | procedure are in the | | CULTURE IF INDICATED | | PDT | | results section. | + +--------+ + + + | PHOSPHORUS | STAT | 09/27/2016 | | Results for this | | | | 9:27 AM | | procedure are in the | | | | PDT | | results section. | + +--------+ + + + | MAGNESIUM | STAT | 09/27/2016 | | Results for this | | | | 9:27 AM | | procedure are in the | | | | PDT | | results section. | + +--------+ + + + | BASIC METABOLIC | STAT | 09/27/2016 | | Results for this | | PANEL | | 9:27 AM | | procedure are in the | | | | PDT | | results section. | + +--------+ + + + | POC GLUCOSE | Routin | 09/27/2016 | | Results for this | | | e | 8:54 AM | | procedure are in the | | | | PDT | | results section. | + +--------+ + + + | POC GLUCOSE | Routin | 09/27/2016 | | Results for this | | | e | 7:58 AM | | procedure are in the | | | | PDT | | results section. | + +--------+ + + + | PHOSPHORUS | STAT | 09/27/2016 | | Results for this | | | | 7:27 AM | | procedure are in the | | | | PDT | | results section. | + +--------+ + + + | MAGNESIUM | STAT | 09/27/2016 | | Results for this | | | | 7:27 AM | | procedure are in the | | | | PDT | | results section. | + +--------+ + + + | BASIC METABOLIC | STAT | 09/27/2016 | | Results for this | | PANEL | | 7:27 AM | | procedure are in the | | | | PDT | | results section. | + +--------+ + + + | POC GLUCOSE | Routin | 09/27/2016 | | Results for this | | | e | 7:10 AM | | procedure are in the | | | | PDT | | results section. | + +--------+ + + + | POC GLUCOSE | Routin | 09/27/2016 | | Results for this | | | e | 6:08 AM | | procedure are in the | | | | PDT | | results section. | + +--------+ + + + | PHOSPHORUS | STAT | 09/27/2016 | | Results for this | | | | 5:08 AM | | procedure are in the | | | | PDT | | results section. | + +--------+ + + + | MAGNESIUM | STAT | 09/27/2016 | | Results for this | | | | 5:08 AM | | procedure are in the | | | | PDT | | results section. | + +--------+ + + + | BASIC METABOLIC | STAT | 09/27/2016 | | Results for this | | PANEL | | 5:08 AM | | procedure are in the | | | | PDT | | results section. | + +--------+ + + + | POC GLUCOSE | Routin | 09/27/2016 | | Results for this | | | e | 4:55 AM | | procedure are in the | | | | PDT | | results section. | + +--------+ + + + | POC GLUCOSE | Routin | 09/27/2016 | | Results for this | | | e | 4:13 AM | | procedure are in the | | | | PDT | | results section. | + +--------+ + + + | CBC NO DIFFERENTIAL | Routin | 09/27/2016 | | Results for this | | | e | 3:16 AM | | procedure are in the | | | | PDT | | results section. | + +--------+ + + + | PHOSPHORUS | STAT | 09/27/2016 | | Results for this | | | | 3:16 AM | | procedure are in the | | | | PDT | | results section. | + +--------+ + + + | MAGNESIUM | STAT | 09/27/2016 | | Results for this | | | | 3:16 AM | | procedure are in the | | | | PDT | | results section. | + +--------+ + + + | BASIC METABOLIC | STAT | 09/27/2016 | | Results for this | | PANEL | | 3:16 AM | | procedure are in the | | | | PDT | | results section. | + +--------+ + + + | POC GLUCOSE | Routin | 09/27/2016 | | Results for this | | | e | 3:03 AM | | procedure are in the | | | | PDT | | results section. | + +--------+ + + + | XR CHEST AP PORTABLE | STAT | 09/27/2016 | | Results for this | | | | 2:41 AM | | procedure are in the | | | | PDT | | results section. | + +--------+ + + + | CULTURE, MRSA | Routin | 09/27/2016 | | Results for this | | | e | 1:54 AM | | procedure are in the | | | | PDT | | results section. | + +--------+ + + + | INFLUENZA A AND B | Routin | 09/27/2016 | | Results for this | | RNA, NAAT | e | 1:51 AM | | procedure are in the | | | | PDT | | results section. | + +--------+ + + + | PHOSPHORUS | STAT | 09/27/2016 | | Results for this | | | | 1:36 AM | | procedure are in the | | | | PDT | | results section. | + +--------+ + + + | MAGNESIUM | STAT | 09/27/2016 | | Results for this | | | | 1:36 AM | | procedure are in the | | | | PDT | | results section. | + +--------+ + + + | BASIC METABOLIC | STAT | 09/27/2016 | | Results for this | | PANEL | | 1:36 AM | | procedure are in the | | | | PDT | | results section. | + +--------+ + + + | POC GLUCOSE | Routin | 09/27/2016 | | Results for this | | | e | 1:33 AM | | procedure are in the | | | | PDT | | results section. | + +--------+ + + + | POC GLUCOSE | Routin | 09/27/2016 | | Results for this | | | e | 12:24 AM | | procedure are in the | | | | PDT | | results section. | + +--------+ + + + | ECG 12 LEAD | STAT | 09/26/2016 | | Results for this | | | | 11:26 PM | | procedure are in the | | | | PDT | | results section. | + +--------+ + + + | BLOOD GAS, VENOUS | STAT | 09/26/2016 | | Results for this | | | | 11:13 PM | | procedure are in the | | | | PDT | | results section. | + +--------+ + + + | BETA | STAT | 09/26/2016 | | Results for this | | HYDROXYBUTYRATE, | | 10:55 PM | | procedure are in the | | QUANT | | PDT | | results section. | + +--------+ + + + | EXTRA LAVENDER TOP | Routin | 09/26/2016 | | Results for this | | TUBE | e | 10:55 PM | | procedure are in the | | | | PDT | | results section. | + +--------+ + + + | EXTRA GREEN TOP TUBE | Routin | 09/26/2016 | | Results for this | | | e | 10:55 PM | | procedure are in the | | | | PDT | | results section. | + +--------+ + + + | EXTRA GREEN TOP TUBE | Routin | 09/26/2016 | | Results for this | | | e | 10:55 PM | | procedure are in the | | | | PDT | | results section. | + +--------+ + + + | EXTRA GOLD TOP TUBE | Routin | 09/26/2016 | | Results for this | | | e | 10:55 PM | | procedure are in the | | | | PDT | | results section. | + +--------+ + + + | EXTRA BLUE TOP TUBE | Routin | 09/26/2016 | | Results for this | | | e | 10:55 PM | | procedure are in the | | | | PDT | | results section. | + +--------+ + + + | CBC WITH | STAT | 09/26/2016 | | Results for this | | DIFFERENTIAL | | 10:55 PM | | procedure are in the | | | | PDT | | results section. | + +--------+ + + + | COMPREHENSIVE | STAT | 09/26/2016 | | Results for this | | METABOLIC PANEL | | 10:55 PM | | procedure are in the | | | | PDT | | results section. | + +--------+ + + + | POC GLUCOSE | Routin | 09/26/2016 | | Results for this | | | e | 10:42 PM | | procedure are in the | | | | PDT | | results section. | + +--------+ + + + documented in this encounter Results POC Glucose (09/28/2016 12:08 PM PDT) + +---------+ + + + | Component | Value | Ref Range | Performed | Pathologist | | | | | At | Signature | + +---------+ + + + | Glucose, | 377 (H) | 70 - 150 mg/dL | [...] + | [facility] | [address] | [place] | [phone] | | [facility] | | [address] | | | - LABORATORY | | | | + + + + + CBC no Differential (09/28/2016 5:23 AM PDT) + + + + + + | Component | Value | Ref Range | Performed | Pathologist | | | | | At | Signature | + + + + + + | White Blood | 6.1 | 4.0 - 11.0 K/uL | [facility] | | | Cells | | | [facility] | | | | | | [facility] | | | | | | CENTER - | | | | | | LABORATORY | | + + + + + + | Red Blood | 3.31 (L) | 4.30 - 5.70 | [facility] | | | Cells | | M/uL | [facility] | | | | | | MEDICAL | | | | | | CENTER - | | | | | | LABORATORY | | + + + + + + | Hemoglobin | 10.9 (L) | 13.5 - 18.0 | [facility] | | | | | g/dL | [facility] | | | | | | [facility] | | | | | | CENTER - | | | | | | LABORATORY | | + + + + + + | Hematocrit | 30.4 (L) | 40.0 - 51.0 % | [facility] | | | | | | [facility] | | | | | | MEDICAL | | | | | | CENTER - | | | | | | LABORATORY | | + + + + + + | MCV | 91.9 | 83.0 - 101.0 fL | [facility] | | | | | | [facility] | | | | | | MEDICAL | | | | | | CENTER - | | | | | | LABORATORY | | + + + + + + | MCH | 33.0 | 28.0 - 35.0 pg | [facility] | | | | | | [facility] | | | | | | MEDICAL | | | | | | CENTER - | | | | | | LABORATORY | | + + + + + + | MCHC | 35.9 | 32.0 - 36.0 | [facility] | [...] + + + + | MPV | 7.0 | fL | [facility] | | | [...] + | [facility] | [address] | [place] | [phone] | | [facility] | | [address] | | | - LABORATORY | | | | + + + + + Basic Metabolic Panel (09/28/2016 5:23 AM PDT) + + + + + [...] + + + | K | 3.1 (L) | 3.5 - 5.1 | [facility] | | | | | mmol/L | [facility] | | | | | | MEDICAL | | | | | | CENTER - | | | | | | LABORATORY | | + + + + + + | Cl | 102 | 98 - 109 mmol/L | [facility] [...] + + + + | Glucose | 111 (H) | 70 - 109 mg/dL | [...] + + | Creatinine | 0.80 | 0.60 - 1.30 | [facility] | [...] mL/min/1.73m2 | [facility] | | | [place] | RATE,ESTIMATED | | MEDICAL | | | | mL/min/1.18z8Kzas than | | CENTER - | | [...] + + + + | BUN/Creatin | 20.0 | | [facility] | | | ine [...] [address] | [place] | [phone] | | [facility] | | [address] | | | - LABORATORY | | | | + + + + + POC Glucose (09/28/2016 1:45 AM PDT) + +-------+ + + + | Component | Value | Ref Range | Performed | Pathologist | | | | | At | Signature | + +-------+ + + + | Glucose, | 145 | 70 - 150 mg/dL | [facility] [...] [address] | [place] | [phone] | | [facility] | | [address] | | | - LABORATORY | | | | + + + + + POC Glucose (09/27/2016 9:35 PM PDT) + +---------+ + + + | Component | Value | Ref Range | Performed | Pathologist | | | | | At | Signature | + +---------+ + + + | Glucose, | 513 (H) | 70 - 150 mg/dL | [...] + | [facility] | [address] | [place] | [phone] | | [facility] | | [address] | | | - LABORATORY | | | | + + + + + POC Glucose (09/27/2016 5:00 PM PDT) + +---------+ + + + | Component | Value | Ref Range | Performed | Pathologist | | | | | At | Signature | + +---------+ + + + | Glucose, | 383 (H) | 70 - 150 mg/dL | [...] [address] | [place] | [phone] | | [facility] | | [address] | | | - LABORATORY | | | | + + + + + Phosphorus (09/27/2016 3:42 PM PDT) + +-------+ + + + | Component | Value | Ref Range | Performed | Pathologist | | | | | At | Signature | + +-------+ + + + | Phosphorus | 4.3 | 2.5 - 4.6 mg/dL | [facility] | | | | [...] [facility] | [address] | [place], [place] | [phone] | | [facility] | | [address] | | | - LABORATORY | | | | + + + + + Magnesium (09/27/2016 3:42 PM PDT) + +-------+ + + + | Component | Value | Ref Range | Performed | Pathologist | | | | | At | Signature | + +-------+ + + + | Magnesium | 2.0 | 1.8 - 2.5 mg/dL | [facility] [address] | [place] | [phone] | | [facility] | | [address] | | | - LABORATORY | | | | + + + + + Basic Metabolic Panel (09/27/2016 3:42 PM PDT) + + + + + [...] + + + + | CO2 | 17 (L) | 24 - 31 mmol/L | [...] + + + + | Glucose | 400 (H) | 70 - 109 mg/dL | [facility] | | | | | | [facility] | | | | | | MEDICAL | | | | | | CENTER - | | | | | | LABORATORY | | + + + + + + | BUN | 19 (H) | 7 - 18 mg/dL | [facility] | | | | | | [facility] | | | | | | MEDICAL | | | | | | CENTER - | | | | | | LABORATORY | | + + + + + + | Creatinine | 1.21 | 0.60 - 1.30 | [facility] | | | | | mg/dL | [facility] | | | | | | MEDICAL | | | | | | CENTER - | | | | | | LABORATORY | | + + + + + + | eGFR, | >60Comment: GLOMERULAR | >=60 | [facility] | | | non- | FILTRATION | mL/min/1.73m2 | [facility] | | | [place] | RATE,ESTIMATED | | MEDICAL | | | | mL/min/1.17x3Kare than | | CENTER - | | [...] + + + + | BUN/Creatin | 15.7 | | [facility] | | | ine [...] + + + + + | [facility] | [address] | [place] | [phone] | | [facility] | | [address] | | | - LABORATORY | | | | + + + + + Phosphorus (09/27/2016 11:28 AM PDT) + +-------+ + + + | Component | Value | Ref Range | Performed | Pathologist | | | | | At | Signature | + +-------+ + + + | Phosphorus | 3.2 | 2.5 - 4.6 mg/dL | [facility] | [address] | [place] | [phone] | | [facility] | | [address] | | | - LABORATORY | | | | + + + + + Magnesium (09/27/2016 11:28 AM PDT) + +-------+ + + + | Component | Value | Ref Range | Performed | Pathologist | | | | | At | Signature | + +-------+ + + + | Magnesium | 2.0 | 1.8 - 2.5 mg/dL | [facility] [...] [address] | [place] | [phone] | | [facility] | | [address] | | | - LABORATORY | | | | + + + + + Basic Metabolic Panel (09/27/2016 11:28 AM PDT) + + + + + [...] + + + + | CO2 | 18 (L) | 24 - 31 mmol/L | [facility] | | | | | | [facility] | | | | | | MEDICAL | | | | | | CENTER - | | | | | | LABORATORY | | + + + + + + | Anion Gap | 12 | 3 - 16 mmol/L | [facility] | | | | | | [facility] | | | | | | MEDICAL | | | | | | CENTER - | | | | | | LABORATORY | | + + + + + + | Glucose | 205 (H) | 70 - 109 mg/dL | [...] + + + + | Creatinine | 1.11 | 0.60 - 1.30 | [facility] | [...] mL/min/1.73m2 | [facility] | | | [place] | RATE,ESTIMATED | | MEDICAL | | | | mL/min/1.86t4Milu than | | CENTER - | | [...] + + + + | Calcium | 8.1 (L) | 8.3 - 10.5 | [facility] | | | | | mg/dL | [facility] | | | | | | MEDICAL | | | | | | CENTER - | | | | | | LABORATORY | | + + + + + + | BUN/Creatin | 16.2 | | [facility] | | | ine [...] + | [facility] | [address] | [place] | [phone] | | [facility] | | [address] | | | - LABORATORY | | | | + + + + + Urinalysis with Microscopic with Culture if Indicated (09/27/2016 11:26 AM PDT) + + + + + + | Component | Value | Ref Range | Performed | Pathologist | | | | | At | Signature | + + + + + + | Color, | Yellow | Light Yellow, | [facility] | | [...] + + + + | Specific | 1.016 | 1.001 - 1.030 | [facility] | | | Baker, | | | [facility] | | | Urine | | | MEDICAL | | | | | | CENTER - | | | | | | LABORATORY | | + + + + + + | Protein, | 100 mg/dL (A) | Negative | [facility] | | | Urine | | | [facility] | | | | | | MEDICAL | | | | | | CENTER - | | | | | | LABORATORY | | + + + + + + | Blood, | Small (A) | Negative | [facility] | | [...] + + + + | Ketones, | 80 mg/dL (A) | Negative | [facility] | [...] + + + | White Blood | 2-5 (A) | 0 - 2 /HPF | [facility] [...] + + + + | Squamous | 2-5 (A) | 0 - 2 /LPF | [facility] | | | Epithelial | | | [facility] | | | Cells, | | | MEDICAL | | | Urine | | | CENTER - | | | | | | LABORATORY | | + + + + + + | Bacteria, | 1+ (A) | Negative /HPF | [facility] | | | Urine | | | [facility] | | | | | | MEDICAL | | | | | | CENTER - | | | | | | LABORATORY | | + + + + + + | Mucus, | Present (A) | Negative /LPF | [facility] | | | Urine | | | [facility] | | | | | | MEDICAL | | | | | | CENTER - | | | | | | LABORATORY | | + + + + + + | Hyaline | 0-2 | 0 - 2 /LPF | [facility] | | | Casts, | | | [facility] | | | Urine | | | MEDICAL | | | | | | CENTER - | | | | | | LABORATORY | | + + + + + + | Granular | 5-10 (A) | 0 - 2 /LPF | [facility] | | | Casts, | | | [facility] | | | Urine | | | MEDICAL | | | | | | CENTER - | | | | | | LABORATORY | | + + + + + + | Urine | Urine Culture Not | | [facility] | | | Comment | Indicated | | [facility] | | | | | | MEDICAL | | | | | | CENTER - | | | | | | LABORATORY | | + + + + + + + + | Specimen | + + | Urine - Spot urine | | sample (specimen) | + + + + + + + | Performing | Address | City/State/Zipcode | Phone Number | | Organization | | | | + + + + + | [facility] | [address] | [place] | [phone] | | [facility] | | [address] | | | - LABORATORY | | | | + + + + + Phosphorus (09/27/2016 9:27 AM PDT) + +---------+ + + + | Component | Value | Ref Range | Performed | Pathologist | | | | | At | Signature | + +---------+ + + + | Phosphorus | 2.2 (L) | 2.5 - 4.6 mg/dL | [facility] | | | | | | [facility] [...] [address] | [place] | [phone] | | [facility] | | [address] | | | - LABORATORY | | | | + + + + + Magnesium (09/27/2016 9:27 AM PDT) + +-------+ + + + | Component | Value | Ref Range | Performed | Pathologist | | | | | At | Signature | + +-------+ + + + | Magnesium | 2.0 | 1.8 - 2.5 mg/dL | [facility] | [address] | [place], [place] | [phone] | | [facility] | | [address] | | | - LABORATORY | | | | + + + + + Basic Metabolic Panel (09/27/2016 9:27 AM PDT) + + + + + + | Component | Value | Ref Range | Performed | Pathologist | | | | | At | Signature | + + + + + + | Na | 137 | 136 - 149 | [facility] | [...] + + + + | Cl | 107 | 98 - 109 mmol/L | [facility] | | | | | | [facility] | | | | | | MEDICAL | | | | | | CENTER - | | | | | | LABORATORY | | + + + + + + | CO2 | 18 (L) | 24 - 31 mmol/L | [facility] | | | | | | [facility] | | | | | | MEDICAL | | | | | | CENTER - | | | | | | LABORATORY | | + + + + + + | Anion Gap | 12 | 3 - 16 mmol/L | [facility] [...] + + + + | BUN | 19 (H) | 7 - 18 mg/dL | [facility] | | | | | | [facility] | | | | | | MEDICAL | | | | | | CENTER - | | | | | | LABORATORY | | + + + + + + | Creatinine | 1.17 | 0.60 - 1.30 | [facility] | [...] mL/min/1.73m2 | [facility] | | | [place] | RATE,ESTIMATED | | MEDICAL | | | | mL/min/1.67p6Qehz than | | CENTER - | | [...] + + + + | BUN/Creatin | 16.2 | | [facility] | | | ine Ratio | | | [facility] | | | [...] [address] | [place] | [phone] | | [facility] | | [address] | | | - LABORATORY | | | | + + + + + POC Glucose (09/27/2016 8:54 AM PDT) + +---------+ + + + | Component | Value | Ref Range | Performed | Pathologist | | | | | At | Signature | + +---------+ + + + | Glucose, | 194 (H) | 70 - 150 mg/dL | [...] [address] | [place] | [phone] | | [facility] | | [address] | | | - LABORATORY | | | | + + + + + POC Glucose (09/27/2016 7:58 AM PDT) + +---------+ + + + | Component | Value | Ref Range | Performed | Pathologist | | | | | At | Signature | + +---------+ + + + | Glucose, | 220 (H) | 70 - 150 mg/dL | [...] [address] | [place] | [phone] | | [facility] | | [address] | | | - LABORATORY | | | | + + + + + Phosphorus (09/27/2016 7:27 AM PDT) + +-------+ + + + | Component | Value | Ref Range | Performed | Pathologist | | | | | At | Signature | + +-------+ + + + | Phosphorus | 2.7 | 2.5 - 4.6 mg/dL | [facility] | | | | [...] [address] | [place] | [phone] | | [facility] | | [id number] | | | - LABORATORY | | | | + + + + + Magnesium (09/27/2016 7:27 AM PDT) + +-------+ + + + | Component | Value | Ref Range | Performed | Pathologist | | | | | At | Signature | + +-------+ + + + | Magnesium | 2.2 | 1.8 - 2.5 mg/dL | [facility] [...] + | [facility] | [address] | [place] | [phone] | | [facility] | | [address] | | | - LABORATORY | | | | + + + + + Basic Metabolic Panel (09/27/2016 7:27 AM PDT) + + + + + + | Component | Value | Ref Range | Performed | Pathologist | | | | | At | Signature | + + + + + + | Na | 138 | 136 - 149 | [facility] | | | | | mmol/L | [facility] | | | | [facility] | | | [facility] - | | | | | | LABORATORY | | + + + + + + | K | 5.0 | 3.5 - 5.1 | [facility] | [...] + + + | CO2 | 15 (L) | 24 - 31 mmol/L | [facility] | | | | | | [facility] | | | | | | [facility] | | | | | | [facility] - | | | | | | LABORATORY | | + + + + + + | Anion Gap | 17 (H) | 3 - 16 mmol/L | [facility] | | | | | | [facility] | | | | | | [facility] | | | | | | CENTER - | | | | | | LABORATORY | | + + + + + + | Glucose | 212 (H) | 70 - 109 mg/dL | [facility] | [facility] | | [facility] | | | | | | [facility] | | | | | | CENTER - | | | | | | LABORATORY | | + + + + + + | BUN | 22 (H) | 7 - 18 mg/dL | [facility] | [facility] | | | [facility] | | | | | | [facility] | | | | | | CENTER - | | | | | | LABORATORY | | + + + + + + | Creatinine | 1.43 (H) | 0.60 - 1.30 | [facility] | | | | | mg/dL | [facility] | | | | | | MEDICAL | | | | | | CENTER - | | | | | | LABORATORY | | + + + + + + | eGFR, | 56 (L)Comment: | >=60 | [facility] | | | non- | GLOMERULAR FILTRATION | mL/min/1.73m2 | [facility] | | | [place] | RATE,ESTIMATED | | MEDICAL | | | | mL/min/1.63d9Ijgi than | | CENTER - | | [...] | | ine Ratio | | | [facility] | | | [...] [address] | [place] | [phone] | | [facility] | | [address] | | | - LABORATORY | | | | + + + + + POC Glucose (09/27/2016 7:10 AM PDT) + +---------+ + + + | Component | Value | Ref Range | Performed | Pathologist | | | | | At | Signature | + +---------+ + + + | Glucose, | 217 (H) | 70 - 150 mg/dL | [...] + | [facility] | [address] | [place] | [phone] | | [facility] | | [address] | | | - LABORATORY | | | | + + + + + POC Glucose (09/27/2016 6:08 AM PDT) + +---------+ + + + | Component | Value | Ref Range | Performed | Pathologist | | | | | At | Signature | + +---------+ + + + | Glucose, | 213 (H) | 70 - 150 mg/dL | [facility] | | | POC | | | [facility] | | | | | [...] [address] | [place] | [phone] | | [facility] | | [address] | | | - LABORATORY | | | | + + + + + Phosphorus (09/27/2016 5:08 AM PDT) + +-------+ + + + | Component | Value | Ref Range | Performed | Pathologist | | | | | At | Signature | + +-------+ + + + | Phosphorus | 3.0 | 2.5 - 4.6 mg/dL | [facility] | | | | [...] ST. | [address] | [place] | [phone] | | [facility] | | [address] | | | - LABORATORY | | | | + + + + + Magnesium (09/27/2016 5:08 AM PDT) + +-------+ + + + [...] [address] | [place] | [phone] | | [facility] | | [address] | | | - LABORATORY | | | | + + + + + Basic Metabolic Panel (09/27/2016 5:08 AM PDT) + + + + + [...] + + + + | CO2 | 11 (L) | 24 - 31 mmol/L | [...] + + + + | Glucose | 216 (H) | 70 - 109 mg/dL | [facility] | | | | | [facility] | | | | | | MEDICAL | | | | | | CENTER - | | | | | | LABORATORY | | + + + + + + | BUN | 25 (H) | 7 - 18 mg/dL | [facility] | | | | | | [facility] | | | | | | MEDICAL | | | | | | CENTER - | | | | | | LABORATORY | | + + + + + + | Creatinine | 1.72 (H) | 0.60 - 1.30 | [facility] | | | | | mg/dL | [facility] | | | | | | MEDICAL | | | | | | CENTER - | | | | | | LABORATORY | | + + + + + + | eGFR, | 45 (L)Comment: | >=60 | [facility] | | | non- | GLOMERULAR FILTRATION | mL/min/1.73m2 | [facility] | | | [place] | RATE,ESTIMATED | | MEDICAL | | | | mL/min/1.37i2Wgpp than | | CENTER - | | [...] + + + + | BUN/Creatin | 14.5 | | [facility] | | | ine Ratio | | | [facility] | | | [...] [address] | [place] | [phone] | | [facility] | | [address] | | | - LABORATORY | | | | + + + + + POC Glucose (09/27/2016 4:55 AM PDT) + +---------+ + + + | Component | Value | Ref Range | Performed | Pathologist | | | | | At | Signature | + +---------+ + + + | Glucose, | 225 (H) | 70 - 150 mg/dL | [...] [address] | [place] | [phone] | | [facility] | | [address] | | | - LABORATORY | | | | + + + + + POC Glucose (09/27/2016 4:13 AM PDT) + +---------+ + + + | Component | Value | Ref Range | Performed | Pathologist | | | | | At | Signature | + +---------+ + + + | Glucose, | 282 (H) | 70 - 150 mg/dL | [...] [address] | [place] | [phone] | | [facility] | | [address] | | | - LABORATORY | | | | + + + + + Phosphorus (09/27/2016 3:16 AM PDT) + +---------+ + + + | Component | Value | Ref Range | Performed | Pathologist | | | | | At | Signature | + +---------+ + + + | Phosphorus | 4.7 (H) | 2.5 - 4.6 mg/dL | [facility] [...] + | [facility] | [address] | [place] | [phone] | | [facility] | | [address] | | | - LABORATORY | | | | + + + + + Magnesium (09/27/2016 3:16 AM PDT) + +-------+ + + + | Component | Value | Ref Range | Performed | Pathologist | | | | | At | Signature | + +-------+ + + + | Magnesium | 2.3 | 1.8 - 2.5 mg/dL | [facility] [...] [facility] | [address] | [place], [place] | [phone] | | [facility] | | [address] | | | - LABORATORY | | | | + + + + + Basic Metabolic Panel (09/27/2016 3:16 AM PDT) + + + + + [...] + + + + | K | 4.0 | 3.5 - 5.1 | [facility] | [...] + + | CO2 | 7 (LL)Comment: | 24 - 31 mmol/L | [facility] | | | | Consistent with previous | | [facility] | | | | results. | | MEDICAL | | | | | | CENTER - | | | | | | LABORATORY | | + + + + + + | Anion Gap | 24 (H) | 3 - 16 mmol/L | [facility] | | | | | | [facility] | | | | | | MEDICAL | | | | | | CENTER - | | | | | | LABORATORY | | + + + + + + | Glucose | 371 (H) | 70 - 109 mg/dL | [facility] | | | | | | [facility] | | | | | | MEDICAL | | | | | | CENTER - | | | | | | LABORATORY | | + + + + + + | BUN | 28 (H) | 7 - 18 mg/dL | [facility] | | | | | | [facility] | | | | | | MEDICAL | | | | | | CENTER - | | | | | | LABORATORY | | + + + + + + | Creatinine | 1.89 (H) | 0.60 - 1.30 | [facility] | | | | | mg/dL | [facility] | | | | | | MEDICAL | | | | | | CENTER - | | | | | | LABORATORY | | + + + + + + | eGFR, | 41 (L)Comment: | >=60 | [facility] | | | non- | GLOMERULAR FILTRATION | mL/min/1.73m2 | [facility] | | | [place] | RATE,ESTIMATED | | MEDICAL | | | | mL/min/1.98y3Xlez than | | CENTER - | | [...] [address] | [place] | [phone] | | [facility] | | [address] | | | - LABORATORY | | | | + + + + + CBC no Differential (09/27/2016 3:16 AM PDT) + + + + + + | Component | Value | Ref Range | Performed | Pathologist | | | | | At | Signature | + + + + + + | White Blood | 15.6 (H) | 4.0 - 11.0 K/uL | [facility] | | | Cells | | | [facility] | | | | | | MEDICAL | | | | | | CENTER - | | | | | | LABORATORY | | + + + + + + | Red Blood | 3.56 (L) | 4.30 - 5.70 | [facility] | | | Cells | | M/uL | [facility] | | | | | | MEDICAL | | | | | | CENTER - | | | | | | LABORATORY | | + + + + + + | Hemoglobin | 11.6 (L) | 13.5 - 18.0 | [facility] | | | | | g/dL | [facility] | | | | | | MEDICAL | | | | | | CENTER - | | | | | | LABORATORY | | + + + + + + | Hematocrit | 34.0 (L) | 40.0 - 51.0 % | [facility] | | | | | | [facility] | | | | | | MEDICAL | | | | | | CENTER - | | | | | | LABORATORY | | + + + + + + | MCV | 95.6 | 83.0 - 101.0 fL | [facility] [...] + + + + | MCHC | 34.2 | 32.0 - 36.0 | [facility] | [...] + + + + | Platelet | 285 | 140 - 440 K/uL | [facility] | | | Count | | | [facility] | | | | | | MEDICAL | | | | | | CENTER - | | | | | | LABORATORY | | + + + + + + | MPV | 6.7 | fL | [facility] | | | [...] ST. | [address] | [place] | [phone] | | [facility] | | [address] | | | - LABORATORY | | | | + + + + + POC Glucose (09/27/2016 3:03 AM PDT) + +---------+ + + + | Component | Value | Ref Range | Performed | Pathologist | | | | | At | Signature | + +---------+ + + + | Glucose, | 379 (H) | 70 - 150 mg/dL | [...] + | [facility] | [address] | [place] | [phone] | | [facility] | | [address] | | | - LABORATORY | | | | + + + + + XR Chest AP Portable (09/27/2016 2:41 AM PDT) + + | Specimen | + + | | + + + + + | Narrative | Performed At | + + + | CLINICAL INFORMATION: cough. COMPARISON: None available. | [facility] | | FINDINGS: Single frontal portable chest radiograph. Lead wires | | | noted. Lungs: No focal airspace disease, pleural effusion, or | | | pneumothorax. Heart: Cardiac silhouette is of normal size. | | | Mediastinum: Central pulmonary vasculature has a normal appearance. | | | Trachea is midline. IMPRESSION - No acute disease. | | | Dictated and Signed by: Braeden Siddiqui MD Electronically signed: | | | 09/27/2016 9:08 AM | | + + + + + | Procedure Note | + + | Foreign Carl Results In - 09/27/2016 9:11 AM PDT | | CLINICAL INFORMATION: cough. | | | | COMPARISON: None available. | | | | FINDINGS: | | Single frontal portable chest radiograph. | | | | Lead wires noted. | | | | Lungs: No focal airspace disease, pleural effusion, or pneumothorax. | | | | Heart: Cardiac silhouette is of normal size. | | | | Mediastinum: Central pulmonary vasculature has a normal appearance. Trachea is | | midline. | | | | | | IMPRESSION - No acute disease. | | | | Dictated and Signed by: Braeden Siddiqui MD | | Electronically signed: 09/27/2016 9:08 AM | + + + +---------+ + + | Performing | Address | City/State/Zipcode | Phone Number | | Organization | | | | + +---------+ + + | [facility] | | | | + +---------+ + + Culture, MRSA (09/27/2016 1:54 AM PDT) + + + + + [...] + + + + | Culture | 4+ Staphylococcus | | [facility] | | | [...] [address] | [place] | [phone] | | [facility] | | [address] | | | - LABORATORY | | | | + + + + + Influenza A and B RNA, NAAT (09/27/2016 1:51 AM PDT) + + + + + + | Component | Value | Ref Range | Performed | Pathologist | | | | | At | Signature | + + + + + + | Influenza A | Negative | Negative | [facility] | | | PCR | | | [facility] | | | | | | MEDICAL | | | | | | CENTER - | | | | | | LABORATORY | | + + + + + + | Influenza B | Negative | Negative | [facility] | | | PCR | | | [facility] | | [...] [address] | [place] | [phone] | | [facility] | | [address] | | | - LABORATORY | | | | + + + + + Phosphorus (09/27/2016 1:36 AM PDT) + +---------+ + + + | Component | Value | Ref Range | Performed | Pathologist | | | | | At | Signature | + +---------+ + + + | Phosphorus | 6.3 (H) | 2.5 - 4.6 mg/dL | [facility] [...] [address] | [place] | [phone] | | [facility] | | [address] | | | - LABORATORY | | | | + + + + + Magnesium (09/27/2016 1:36 AM PDT) + +-------+ + + + | Component | Value | Ref Range | Performed | Pathologist | | | | | At | Signature | + +-------+ + + + | Magnesium | 2.5 | 1.8 - 2.5 mg/dL | [facility] [...] + | [facility] | [address] | [place] | [phone] | | [facility] | | [address] | | | - LABORATORY | | | | + + + + + Basic Metabolic Panel (09/27/2016 1:36 AM PDT) + + + + + [...] + + + + | K | 4.8 | 3.5 - 5.1 | [facility] | [...] + + | CO2 | 6 (LL)Comment: | 24 - 31 mmol/L | [facility] | | | | Consistent with previous | | [facility] | | | | results. | | MEDICAL | | | | | | CENTER - | | | | | | LABORATORY | | + + + + + + | Anion Gap | 29 (H) | 3 - 16 mmol/L | [facility] | | | | | | [facility] | | | | | | MEDICAL | | | | | | CENTER - | | | | | | LABORATORY | | + + + + + + | Glucose | 538 (H) | 70 - 109 mg/dL | [facility] | | | | | | [facility] | | | | | | MEDICAL | | | | | | CENTER - | | | | | | LABORATORY | | + + + + + + | BUN | 31 (H) | 7 - 18 mg/dL | [facility] | | | | | | [facility] | | | | | | MEDICAL | | | | | | CENTER - | | | | | | LABORATORY | | + + + + + + | Creatinine | 1.98 (H) | 0.60 - 1.30 | [facility] | | | | | mg/dL | [facility] | | | | | | MEDICAL | | | | | | CENTER - | | | | | | LABORATORY | | + + + + + + | eGFR, | 39 (L)Comment: | >=60 | [facility] | | | non- | GLOMERULAR FILTRATION | mL/min/1.73m2 | [facility] | | | [place] | RATE,ESTIMATED | | MEDICAL | | | | mL/min/1.46q5Hjiw than | | CENTER - | | [...] + + + + | BUN/Creatin | 15.7 | | [facility] | | | ine [...] + | [facility] | [address] | [place] | [phone] | | [facility] | | [address] | | | - LABORATORY | | | | + + + + + POC Glucose (09/27/2016 1:33 AM PDT) + +---------+ + + + | Component | Value | Ref Range | Performed | Pathologist | | | | | At | Signature | + +---------+ + + + | Glucose, | 566 (H) | 70 - 150 mg/dL | [...] [address] | [place] | [phone] | | [facility] | | [address] | | | - LABORATORY | | | | + + + + + POC Glucose (09/27/2016 12:24 AM PDT) + + + + + [...] + | [facility] | [address] | [place], [place] | [phone] | | [facility] | | [address] | | | - LABORATORY | | | | + + + + + ECG 12 lead (09/26/2016 11:26 PM PDT) + + + + + + | Component | Value | Ref Range | Performed | Pathologist | | | | | At | Signature | + + + + + + | VENTRICULAR | 115 | BPM | [facility] | | | RATE EKG | | | | | + + + + + + | ATRIAL RATE | 115 | BPM | [facility] | | + + + + + + | P-R | 170 | ms | [facility] | | | INTERVAL | | | | | + + + + + + | QRS | 84 | ms | [facility] | | | DURATION | | | | | + + + + + + | Q-T | 322 | ms | [facility] | | | INTERVAL | | | | | + + + + + + | Q-T | 445 | ms | [facility] | | | INTERVAL | | | | | | (CORRECTED) | | | | | + + + + + + | P WAVE AXIS | 64 | degrees | [facility] | | + + + + + + | QRS AXIS | 79 | degrees | [facility] | | + + + + + + | T AXIS | 57 | degrees | [facility] | | + + + + + + | INTERPRETAT | Sinus | | [facility] | | | ION TEXT | tachycardiaOtherwise | | | | | | normal ECGWhen compared | | | | | | with ECG of 20-JUN-2016 | | | | | | 21:42,T wave amplitude | | | | | | has increased in | | | | | | Anterior leads : | | | | | | Consider hyperkalemia or | | | | | | "hyperacute T waves of | | | | | | ischemia/infarction"Conf | | | | | | irmed by HAWA RUBIN MD | | | | | | ([id number]) on 09/27/2016 | | | | | | 6:06:20 AM | | | | + + [...] | | | + +---------+ + + Blood Gas, Venous (09/26/2016 11:13 PM PDT) + + + + + + | Component | Value | Ref Range | Performed | Pathologist | | | | | At | Signature | + + + + + + | pH, Venous | 6.97 (LL) | 7.30 - 7.40 | [facility] | | | | | | [facility] | | | | | | MEDICAL | | | | | | CENTER - | | | | | | LABORATORY | | + + + + + + | pCO2, | 0 (LL) | 40 - 50 mm Hg | [facility] | | | Venous | | | [facility] | | | | | | MEDICAL | | | | | | CENTER - | | | | | | LABORATORY | | + + + + + + | pO2, Venous | 51 (H) | 25 - 40 mm Hg | [facility] | | | | | | [facility] | | | | | | MEDICAL | | | | | | CENTER - | | | | | | LABORATORY | | + + + + + + | HCO3, | 3.6 | mmol/L | [facility] | | | Venous | | | [facility] | | | | | | MEDICAL | | | | | | CENTER - | | | | | | LABORATORY | | + + + + + + | Base | -28.4 | mmol/L | [facility] | | | Excess, | | | [facility] | | | Venous | | | MEDICAL | | | | | | CENTER - | | | | | | LABORATORY | | + + + + + + | Hemoglobin, | 13.7 | g/dL | [facility] | | | Venous | | | [facility] | | | | | | MEDICAL | | | | | | CENTER - | | | | | | LABORATORY | | + + + + + + | Oxyhemoglob | 67.9 | % | [facility] | | | in, Venous | | | [facility] | | | | | | MEDICAL | | | | | | CENTER - | | | | | | LABORATORY | | + + + + + + | Carboxyhemo | 1.6 | % | [facility] | | | globin, | | | [facility] | | | Venous | | | MEDICAL | | | | | | CENTER - | | | | | | LABORATORY | | + + + + + + | FiO2 | 21.0 | % | [facility] | | | | [...] + | [facility] | [address] | [place] | [phone] | | [facility] | | [address] | | | - LABORATORY | | | | + + + + + Beta Hydroxybutyrate, Quant (09/26/2016 10:55 PM PDT) + + + + + + | Component | Value | Ref Range | Performed | Pathologist | | | | | At | Signature | + + + + + + | Beta | >9.00 (H) | 0.02 - 0.27 | [facility] [...] [facility] | [address] | [place], [place] | [phone] | | [facility] | | [address] | | | - LABORATORY | | | | + + + + + Comprehensive Metabolic Panel (09/26/2016 10:55 PM PDT) + + + + + + | Component | Value | Ref Range | Performed | Pathologist | | | | | At | Signature | + + + + + + | Na | 126 (L) | 136 - 149 | [facility] | | | | | mmol/L | [facility] | | | | | | MEDICAL | | | | | | CENTER - | | | | | | LABORATORY | | + + + + + + | K | 6.2 ()Comment: | 3.5 - 5.1 | [facility] | | | | Critical Result called | mmol/L | [facility] | | | | to and read back by | | MEDICAL | | | | Flavia Nava on | | CENTER - | | | | 09/26/2016 at 23:19 by | | LABORATORY | | | | Jalen Bain. | | | | + + + + + + | Cl | 86 (L) | 98 - 109 mmol/L | [facility] | | | | | | [facility] | | | | | | MEDICAL | | | | | | CENTER - | | | | | | LABORATORY | | + + + + + + | CO2 | <5 (LL)Comment: Critical | 24 - 31 mmol/L | [facility] | | | | Result called to and | | [facility] | | | | read back by Flavia | | MEDICAL | | | | Esteban on 09/26/2016 at | | CENTER - | | | | 23:19 by Jalen Bain. | | LABORATORY | | + + + + + + | Anion Gap | | 3 - 16 mmol/L | [facility] | | | | | | [facility] | | | | | | MEDICAL | | | | | | CENTER - | | | | | | LABORATORY | | + + + + + + | Glucose | 839 ()Comment: | 70 - 109 mg/dL | [facility] | | | | Critical Result called | | [facility] | | | | to and read back by | | MEDICAL | | | | Flavia Nava on | | CENTER - | | | | 09/26/2016 at 23:19 by | | LABORATORY | | | | Jalen Bain. | | | | + + + + + + | BUN | 34 (H) | 7 - 18 mg/dL | [facility] | | | | | | [facility] | | | | | | MEDICAL | | | | | | CENTER - | | | | | | LABORATORY | | + + + + + + | Creatinine | 2.25 (H) | 0.60 - 1.30 | [facility] | | | | | mg/dL | [facility] | | | | | | MEDICAL | | | | | | CENTER - | | | | | | LABORATORY | | + + + + + + | eGFR, | 33 (L)Comment: | >=60 | [facility] | | | non- | GLOMERULAR FILTRATION | mL/min/1.73m2 | [facility] | | | [place] | RATE,ESTIMATED | | MEDICAL | | | | mL/min/1.85y3Bmge than | | CENTER - | | [...] + + | Calcium | 9.2 | 8.3 - 10.5 | [facility] | | | | | mg/dL | [facility] | | | | | | MEDICAL | | | | | | CENTER - | | | | | | LABORATORY | | + + + + + + | Albumin | 4.2 | 3.2 - 5.0 g/dL | [facility] | | | | | | [facility] | | | | | | MEDICAL | | | | | | CENTER - | | | | | | LABORATORY | | + + + + + + | Bilirubin | 2.4 (H) | 0.1 - 1.5 mg/dL | [facility] | | | Total | | | [facility] | | | | | | MEDICAL | | | | | | CENTER - | | | | | | LABORATORY | | + + + + + + | Total | 6.8 | 6.0 - 7.8 g/dL | [facility] | | | Protein | | | [facility] | | | | | | MEDICAL | | | | | | CENTER - | | | | | | LABORATORY | | + + + + + + | AST | 23 | 10 - 42 U/L | [facility] | | | | | | [facility] | | | | | | MEDICAL | | | | | | CENTER - | | | | | | LABORATORY | | + + + + + + | ALT | 66 (H) | 6 - 45 U/L | [facility] | | | | | | [facility] | | | | | | MEDICAL | | | | | | CENTER - | | | | | | LABORATORY | | + + + + + + | Alkaline | 130 (H) | 40 - 110 U/L | [facility] | | | Phosphatase | | | [facility] | | | | | | MEDICAL | | | | | | CENTER - | | | | | | LABORATORY | | + + + + + + | Globulin | 2.6 | 2.1 - 3.8 g/dL | [facility] | | | | | | [facility] | | | | | | MEDICAL | | | | | | CENTER - | | | | | | LABORATORY | | + + + + + + | Albumin/Eliz | 1.6 | 0.8 - 2.0 | [facility] | [...] [address] | [place] | [phone] | | [facility] | | [address] | | | - LABORATORY | | | | + + + + + CBC with Differential (09/26/2016 10:55 PM PDT) + + + + + + | Component | Value | Ref Range | Performed | Pathologist | | | | | At | Signature | + + + + + + | White Blood | 13.8 (H) | 4.0 - 11.0 K/uL | [facility] | | | Cells | | | [facility] | | | | | | MEDICAL | | | | | | CENTER - | | | | | | LABORATORY | | + + + + + + | Red Blood | 4.15 (L) | 4.30 - 5.70 | [facility] | | | Cells | | M/uL | [facility] | | | | | | MEDICAL | | | | | | CENTER - | | | | | | LABORATORY | | + + + + + + | Hemoglobin | 13.7 | 13.5 - 18.0 | [facility] | | | | | g/dL | [facility] | | | | | | MEDICAL | | | | | | CENTER - | | | | | | LABORATORY | | + + + + + + | Hematocrit | 42.9 | 40.0 - 51.0 % | [facility] | | | | | | [facility] | | | | | | MEDICAL | | | | | | CENTER - | | | | | | LABORATORY | | + + + + + + | MCV | 103.4 (H) | 83.0 - 101.0 fL | [facility] | | | | | | [facility] | | | | | | MEDICAL | | | | | | CENTER - | | | | | | LABORATORY | | + + + + + + | MCH | 32.9 | 28.0 - 35.0 pg | [facility] | | | | | | [facility] | | | | | | MEDICAL | | | | | | CENTER - | | | | | | LABORATORY | | + + + + + + | MCHC | 31.8 (L) | 32.0 - 36.0 | [facility] | | | | | g/dL | [facility] | | | | | | MEDICAL | | | | | | CENTER - | | | | | | LABORATORY | | + + + + + + | RDW-CV | 13.7 | <15.0 % | [facility] | | | | | | [facility] | | | | | | MEDICAL | | | | | | CENTER - | | | | | | LABORATORY | | + + + + + + | Platelet | 414 | 140 - 440 K/uL | [facility] [...] + + + + | % | 74.4 | 45.0 - 82.0 % | [facility] | | | Neutrophils | | | [facility] | | | | | | MEDICAL | | | | | | CENTER - | | | | | | LABORATORY | | + + + + + + | % | 14.6 (L) | 20.0 - 45.0 % | [facility] | | | Lymphocytes | | | [facility] | | | | | | MEDICAL | | | | | | CENTER - | | | | | | LABORATORY | | + + + + + + | % Monocytes | 10.3 | 4.0 - 12.0 % | [facility] | | | | | | [facility] | | | | | | MEDICAL | | | | | | CENTER - | | | | | | LABORATORY | | + + + + + + | % | 0.1 | 0.0 - 5.0 % | [facility] [...] + + + + | Absolute | 10.30 (H) | 1.80 - 8.50 | [facility] | [...] + + + + | Absolute | 1.40 (H) | 0.00 - 1.00 | [facility] | [...] | Absolute | 0.10 | 0.00 - 0.10 | [facility] | [...] ST. | [address] | [place] | [phone] | | [facility] | | [address] | | | - LABORATORY | | | | + + + + + Extra Green Top Tube (09/26/2016 10:55 PM PDT) + +-------+ + + + | Component | Value | Ref Range | Performed | Pathologist | | | | | At | Signature | + +-------+ + + + | Extra Green | Done | | [facility] | | | Top Tube | | | [facility] | | | | | [...] [address] | [place] | [phone] | | [facility] | | [address] | | | - LABORATORY | | | | + + + + + Extra Lavender Top Tube (09/26/2016 10:55 PM PDT) + +-------+ + + + [...] + | [facility] | [address] | [place], [place] | [phone] | | [facility] | | [address] | | | - LABORATORY | | | | + + + + + Extra Blue Top Tube (09/26/2016 10:55 PM PDT) + +-------+ + + + [...] [address] | [place] | [phone] | | [facility] | | [address] | | | - LABORATORY | | | | + + + + + Extra Gold Top Tube (09/26/2016 10:55 PM PDT) + +-------+ + + + [...] [address] | [place] | [phone] | | [facility] | | [address] | | | - LABORATORY | | | | + + + + + Extra Green Top Tube (09/26/2016 10:55 PM PDT) + +-------+ + + + [...] + | [facility] | [address] | [place] | [phone] | | [facility] | | [address] | | | - LABORATORY | | | | + + + + + POC Glucose (09/26/2016 10:42 PM PDT) + + + + + + | Component | Value | Ref Range | Performed | Pathologist | | | | | At | Signature | + + + + + + | Glucose, | >600 (HH) | 70 - 150 mg/dL | [facility] | | | POC | | | [facility] | | | | | [...] ST. | [address] | [place] | [phone] | | [facility] | | [address] | | | - LABORATORY | | | | + + + + + documented in this encounter Visit Diagnoses + + | Diagnosis | + + | Diabetic ketoacidosis without coma associated with type 1 diabetes mellitus (HCC) - | | Primary | + + | Hyperkalemia Hyperpotassemia | + + | Acute renal failure, unspecified acute renal failure type (HCC) | + + documented in this encounter Administered Medications + +--------+ +--------+------+------+ | Medication Order | MAR | Action | Dose | Rate | Site | | | Action | Date | | | | + +--------+ +--------+------+------+ | acetaminophen (TYLENOL) tablet | Given | 09/29/19 | 650 mg | | | | 650 mg 650 mg, Oral, EVERY 6 | | 17 12:15 | | | | | HOURS PRN, Pain, Starting Fri | | AM PDT | | | | | 09/27/16 at 1542 | | | | | | + +--------+ +--------+------+------+ +-------+ +--------+---+---+ | Given | 09/28/19 | 650 mg | | | | | 17 3:55 | | | | | | PM PDT | | | | +-------+ +--------+---+---+ +---+---+ | | | +---+---+ + +---------+ +--------+-------+---+ | azithromycin (ZITHROMAX) 500 mg | New Bag | 09/29/19 | 500 mg | 255 | | | in sodium chloride 0.9% 250 mL | | 17 8:39 | | mL/hr | | | IVPB 500 mg, Intravenous, | | AM PDT | | | | | Administer over 1 Hours, DAILY, | | | | | | | First dose on Fri09/27/16 at 0345, | | | | | | | Keep in refrigerator., | | | | | | | Indications: Bronchitis | | | | | | + +---------+ +--------+-------+---+ +---------+ +--------+-------+---+ | New Bag | 09/28/19 | 500 mg | 255 | | | | 17 4:25 | | mL/hr | | | | AM PDT | | | | +---------+ +--------+-------+---+ +---+---+ | | | +---+---+ + +-------+ + +---+---+ | calcium carbonate (TUMS) | Given | 09/28/19 | 1,000 mg | | | | chewable tablet 1,000 mg 1,000 | | 17 2:47 | | | | | mg, Oral, EVERY 4 HOURS PRN, | | PM PDT | | | | | Indigestion, Starting 09/27/16 | | | | | | | at 0238 | | | | | | + +-------+ + +---+---+ +-------+ + +---+---+ | Given | 09/28/19 | 1,000 mg | | | | | 17 3:05 | | | | | | AM PDT | | | | +-------+ + +---+---+ +---+---+ | | | +---+---+ + +---------+ +---+-------+---+ | dextrose 5% and sodium chloride | New Bag | 09/28/19 | | 250 | | | 0.45% (D5 1/2 NS) infusion at | | 17 9:01 | | mL/hr | | | 250 mL/hr, Intravenous, PRN, | | AM PDT | | | | | begin when Blood Glucose drops | | | | | | | below 250 mg/dL, Starting Fri | | | | | | | 09/27/16 at 0124, Begin at same | | | | | | | rate as any previous running IV | | | | | | | fluid. Stop any other IV fluid. | | | | | | | Discontinue when eating., | | | | | | + +---------+ +---+-------+---+ +---------+ +---+-------+---+ | New Bag | 09/28/19 | | 250 | | | | 17 5:00 | | mL/hr | | | | AM PDT | | | | +---------+ +---+-------+---+ +---+---+ | | | +---+---+ + +-------+ + +---+ + | insulin glargine (LANTUS | Given | 09/28/19 | 15 Units | | Abdomen- | | SOLOSTAR) 100 units/mL injection | | 17 9:44 | | | LLQ | | (pen) 15 Units 15 Units, | | PM PDT | | | | | Subcutaneous, NIGHTLY, First dose | | | | | | | (after last modification) on Fri | | | | | | | 09/27/16 at 2200, For subcutaneous | | | | | | | use only. Basal (long acting) | | | | | | | insulin., | | | | | | + +-------+ + +---+ + +---+---+ | | | +---+---+ + +-------+ +---------+---+ + | insulin glargine (LANTUS | Given | 09/28/19 | 9 Units | | Abdomen- | | SOLOSTAR) 100 units/mL injection | | 17 8:51 | | | RLQ | | (pen) 9 Units 9 Units, | | AM PDT | | | | | Subcutaneous, ONCE, Fri09/27/16 at | | | | | | | 0845, For 1 dose, For | | | | | | | subcutaneous use only. Basal | | | | | | | (long acting) insulin., | | | | | | + +-------+ +---------+---+ + +---+---+ | | | +---+---+ + +-------+ + +---+ + | insulin lispro (humaLOG | Given | 09/29/19 | 15 Units | | Abdomen- | | KWIKPEN) 100 units/mL injection | | 17 12:09 | | | RLQ | | (pen) 0-18 Units 0-18 Units, | | PM PDT | | | | | Subcutaneous, 4 TIMES DAILY WITH | | | | | | | MEALS & NIGHTLY, First dose on | | | | | | | Fri09/27/16 at 2200, [place] | | | | | | [...] | | | | | | | 0424-1331 Use NIGHT DOSE for | | | | | | | doses scheduled: HS, 3AM, | | | | | | | Nighttime [id number], | | | | | | + +-------+ + +---+ + +-------+ + +---+ + | Given | 09/28/19 | 15 Units | | Arm-Left | | | 17 9:42 | | | Upper | | | PM PDT | | | | +-------+ + +---+ + +---+---+ | | | +---+---+ + +-------+ +---------+---+ + | insulin lispro (humaLOG | Given | 09/28/19 | 5 Units | | Arm-Left | | KWIKPEN) 100 units/mL injection | | 17 5:02 | | | Upper | | (pen) 0-6 Units 0-6 Units, | | PM PDT | | | | | Subcutaneous, 4 TIMES DAILY WITH | | | | | | | MEALS & NIGHTLY, First dose on | | | | | | | Fri09/27/16 at 1315, [facility] | | | | | | [...] | | | | | NPO, Daytime [phone] Use NIGHT | | | | | | | DOSE for doses scheduled: | | | | | | | HS, 3AM, Nighttime [id number], | | | | | | + +-------+ +---------+---+ + +-------+ +---------+---+ + | Given | 09/28/19 | 2 Units | | Arm-Left | | | 17 1:05 | | | Upper | | | PM PDT | | | | +-------+ +---------+---+ + +---+---+ | | | +---+---+ + + + + +-------+---+ | insulin regular (humuLIN R, | Rate/Dos | 09/28/19 | 3.8 | 3.8 | | | novoLIN R) 1 Units/mL in sodium | e Change | 17 10:08 | Units/hr | mL/hr | | | chloride 0.9% 100 mL infusion | | AM PDT | | | | | (Adult Protocol) 4.3 Units/hr | | | | | | | (4.3 mL/hr), at 4.3 mL/hr, | | | | | | | Intravenous, TITRATED, Starting | | | | | | | 09/27/16 at 0745 | | | | | | + + + + +-------+---+ + + + +-------+---+ | Rate/Dose Change | 09/28/19 | 5.1 | 5.1 | | | | 17 8:01 | Units/hr | mL/hr | | | | AM PDT | | | | + + + +-------+---+ | Rate/Dose Change | 09/28/19 | 4.3 | 4.3 | | | | 17 7:10 | Units/hr | mL/hr | | | | AM PDT | | | | + + + +-------+---+ +---+---+ | | | +---+---+ + +---------+ + +---------+---+ | insulin regular (humuLIN R, | New Bag | 09/28/19 | 6 | 6 mL/hr | | | novoLIN R) 1 Units/mL in sodium | | 17 12:19 | Units/hr | | | | chloride 0.9% 100 mL infusion 6 | | AM PDT | | | | | Units/hr (6 mL/hr), at 6 mL/hr, | | | | | | | Intravenous, TITRATED, Starting | | | | | | | Kailey 09/26/16 at 2325 | | | | | | + +---------+ + +---------+---+ +---+---+ | | | +---+---+ + + + + +-------+---+ | insulin regular (humuLIN R, | Rate/Dos | 09/28/19 | 0.052 | 2.8 | | | novoLIN R) 1 Units/mL in sodium | e Change | 17 6:09 | Units/kg | mL/hr | | | chloride 0.9% 100 mL infusion | | AM PDT | /hr | | | | 0-0.4 Units/kg/hr | | | | | | | 53.5 kg (0-21.4 mL/hr), at | | | | | | | 0-21.4 mL/hr, Intravenous, | | | | | | | TITRATED, Starting Fri09/27/16 at | | | | | | | 0145, For initial infusion rate: | | | | | | | 0.1 units/kg/hr = 5.4 units/hr | | | | | | | 0.2 units/kg/hr = 10.7 units/hr | | | | | | | 0.3 units/kg/hr = 16.1 | | | | | | | units/hr 0.4 units/kg/hr = 21.4 | | | | | | | units/hr 1. If blood glucose | | | | | | | decreases by less than 50 | | | | | | | mg/dL in the first hour, | | | | | | | give a bolus of Regular insulin | | | | | | | 7.5 units (0.14 units/kg) IV | | | | | | | x 1 and reassess in 1 hour | | | | | | | 2. If blood glucose drops by | | | | | | | less than 50 mg/dL after the | | | | | | | 7.5 units (0.14 units/kg) | | | | | | | IV bolus of Regular insulin, | | | | | | | contact provider 3. If blood | | | | | | | glucose decreases by 50-100 | | | | [...] | | | | | | | 2.7 units/hr (0.05 units/kg/hr) | | | | [...] + + +-------+---+ | Rate/Dose Change | 09/28/19 | 0.064 | 3.4 | | | | 17 5:01 | Units/kg | mL/hr | | | | AM PDT | /hr | | | + + + +-------+---+ | Rate/Dose Change | 09/28/19 | 0.099 | 5.3 | | | | 17 3:07 | Units/kg | mL/hr | | | | AM PDT | /hr | | | + + + +-------+---+ +---+---+ | | | +---+---+ + +-------+ +---------+---+---+ | insulin regular (humuLIN R, | Given | 09/27/19 | 5 Units | | | | novoLIN R) injection 5 Units 5 | | 17 11:15 | | | | | Units, Intravenous, ONCE, Kailey | | PM PDT | | | | | 09/26/16 at 2305, For 1 dose | | | | | | + +-------+ +---------+---+---+ +---+---+ | | | +---+---+ + +---------+ +---------+---+ + | nicotine (NICODERM) 21 mg/24 hr | Patch | 09/28/19 | 1 patch | | Back-Lef | | 1 patch 1 patch, Transdermal, | Applied | 17 10:28 | | | t Upper | | DAILY, First dose on Fri09/27/16 | | PM PDT | | | | | at 2245 | | | | | | + +---------+ +---------+---+ + +---+---+ | | | +---+---+ + +-------+ +------+---+---+ | ondansetron (ZOFRAN) injection | Given | 09/27/19 | 4 mg | | | | 4 mg 4 mg, Intravenous, ONCE, | | 17 11:44 | | | | | Kailey 09/26/16 at 2320, For 1 dose | | PM PDT | | | | + +-------+ +------+---+---+ +---+---+ | | | +---+---+ + +-------+ +------+---+---+ | ondansetron (ZOFRAN) injection | Given | 09/28/19 | 4 mg | | | | 4-8 mg 4-8 mg, Intravenous, | | 17 4:51 | | | | | EVERY 6 HOURS PRN, Nausea, | | AM PDT | | | | | Starting 09/27/16 at 0449, | | | | | | | First line agent, | | | | | | + +-------+ +------+---+---+ +---+---+ | | | +---+---+ + +-------+ +-------+---+---+ | pantoprazole (PROTONIX) DR | Given | 09/28/19 | 40 mg | | | | tablet 40 mg 40 mg, Oral, DAILY | | 17 9:33 | | | | | BEFORE BREAKFAST, First dose on | | PM PDT | | | | | Fri09/27/16 at 2000, Do not cut or | | | | | | | crush., | | | | | | + +-------+ +-------+---+---+ +---+---+ | | | +---+---+ + +---------+ +--------+-------+---+ | potassium chloride 10 mEq in | New Bag | 09/28/19 | 10 mEq | 100 | | | sterile water 100 mL IVPB 10 | | 17 6:15 | | mL/hr | | | mEq, Intravenous, Administer over | | AM PDT | | | | | 1 Hours, PRN, Per protocol, | | | | | | | Starting Fri09/27/16 at 0124, | | | | | | | ICU Use Only Protocol NOT | | | | | | | recommended if Scr > 1.8, | | | | | | | dialysis patients or CrCl < 50 | | | | | | | mL/min [K+] =3.6 - 4 mEql/L | | | | | | | Give 10 mEq KCl Q1H IV x 4 doses | | | | | | | For a total of 40 mEq [K+] =3 | | | | | | | - 3.5 mEql/L Give 10 meq KCl | | | | | | | Q1H IV x 6 doses For a total | | | | | | | of 60 mEq [K+] < 3.0 mEql/L | | | | | | | Give 10 mEq KCl Q1H IV x 8 doses | | | | | | | For a total of 80 mEq. * | | | | | | | Obtain K+ level 2 hours after | | | | | | | replacement is done. If K+ | | | | | | | still < 3.6 mEq/L, repeat | | | | | | | replacement as indicated per | | | | | | | protocol. Give either tablet, | | | | | | | liquid, or IV but never more than | | | | | | | one form., | | | | | | + +---------+ +--------+-------+---+ +---------+ +--------+-------+---+ | New Bag | 09/28/19 | 10 mEq | 100 | | | | 17 5:16 | | mL/hr | | | | AM PDT | | | | +---------+ +--------+-------+---+ | New Bag | 09/28/19 | 10 mEq | 100 | | | | 17 4:14 | | mL/hr | | | | AM PDT | | | | +---------+ +--------+-------+---+ +---+---+ | | | +---+---+ + +---------+ +---------+-------+---+ | potassium phosphate 15 mmol in | New Bag | 09/28/19 | 15 mmol | 63.8 | | | sodium chloride 0.9% 250 mL IVPB | | 17 10:32 | | mL/hr | | | 15 mmol, Intravenous, Administer | | AM PDT | | | | | over 4 Hours, ONCE, 09/27/16 | | | | | | | at 1030, For 1 dose, For doses | | | | | | | greater than or equal to 33 mMol, | | | | | | | central line administration | | | | | | | preferred. If no central access, | | | | | | | administer peripherally into | | | | | | | large vein. Do not give in | | | | | | | hand/wrist or foot/ankle vein., | | | | | | + +---------+ +---------+-------+---+ +---+---+ | | | +---+---+ + +---------+ +--------+-------+---+ | sodium chloride 0.9% (NS) bolus | New Bag | 09/27/19 | 1,000 | 2000 | | | 1,000 mL 1,000 mL, Intravenous, | | 17 11:15 | mLs | mL/hr | | | Administer over 30 Minutes, | | PM PDT | | | | | ONCE, [facility] 09/26/16 at 2305, For 1 | | | | | | | dose | | | | | | + +---------+ +--------+-------+---+ +---+---+ | | | +---+---+ + +---------+ +--------+-------+---+ | sodium chloride 0.9% (NS) bolus | New Bag | 09/28/19 | 1,000 | 2000 | | | 1,000 mL 1,000 mL, Intravenous, | | 17 12:19 | mLs | mL/hr | | | Administer over 30 Minutes, | | AM PDT | | | | | ONCE, [facility] 09/26/16 at 2355, For 1 | | | | | | | dose | | | | | | + +---------+ +--------+-------+---+ +---+---+ | | | +---+---+ + +---------+ +--------+-------+---+ | sodium chloride 0.9% (NS) | New Bag | 09/28/19 | 1,000 | 125 | | | infusion 1,000 mL at 125 mL/hr, | | 17 8:15 | mLs | mL/hr | | | Intravenous, ONCE, [facility] 09/27/16 at | | AM PDT | | | | | 0815, For 1 dose, Infuse 1 Liter | | | | | | | of Normal Saline. To run at the | | | | | | | same time as dextrose containing | | | | | | | fluids, | | | | | | + +---------+ +--------+-------+---+ +---+---+ | | | +---+---+ + +---------+ +---+-------+---+ | sodium chloride 0.9% (NS) | New Bag | 09/28/19 | | 250 | | | infusion at 250 mL/hr, | | 17 1:31 | | mL/hr | | | Intravenous, CONTINUOUS, Starting | | AM PDT | | | | | 09/27/16 at 0145, Discontinue | | | | | | | when dextrose-containing fluid is | | | | | | | started., | | | | | | + +---------+ +---+-------+---+ +---+---+ | | | +---+---+ documented in this encounter
--- OUTSIDE RECORDS SUMMARY | ~2020-04-12 | XMS | Encounter Summary ---
Demographics + + + | Address | [address] | | | [place] [address] | + + + | Home Phone [...] Team Providers + +------+ + | Care Director Of Media Name | Role | Phone | + +------+ + PCP | Unavailable | + +------+ + Encounter Details +--------+ + + + + | Date | Type | Department | Care Team | Description | +--------+ + + + + | 04/06/ | [facility] | ROGELIO TALAMANTES | Abhi Berger | | | 2003 | Encounter | [facility]INE [address] | MD [address] | | | | | [address] | [place], [place] | | | | | [place] [address] | [address] | | | | | [phone] | | | +--------+ + + + [...]
--- OUTSIDE RECORDS SUMMARY | ~2020-04-12 | XMS | Encounter Summary ---
Demographics + + + | Address | [address] | | | [place] [address] | + + + | Home Phone [...] Team Providers + +------+ + | Care Pheresis Nurse Name | Role | Phone | + [...] 2017 | | [facility] | [address] [address] | diabetes mellitus | | | | CENTER [address] | [place] [address] | with hyperglycemia | | | | [place], [place] | [place] [address] | ([facility]) (Primary Dx); | | | | [address] | [phone] | Type 2 diabetes | | | | [phone] | | mellitus without | | | | | | complication, with | | | | | | long-term current | | | | | | use of insulin | | | | | | ([facility]); Chest pain in | | | [...] might be different fro m the original. [facility] Joni Kwon Emergency Department Encounter Note [address] [place] [address] PCP:Shavon Covington, DENIS [phone] CHIEF COMPLAINT: Chief [...] high today. Homeless and staying at the custodial. He reports a slight cough. He says [...] He reports prior psychiatric evaluations in the [place] and [place] areas and they did not feel he [...] distress. Thin. 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 Hi [...] Nurse Practitioner Why: For re-check Contact information: [address], [facility] [address] [place] [address] Discharge Instructions Get glucometer and resume checking your glucose at least twice daily. Increase oral fluids when sugar is high Portions of this chart may have been created with [employer] voice recognition software. Occasi onal wrong-word or sound-alike substitutions may have occurred due to the inherent renee itations of voice recognition software. Please read the chart carefully and recognize, using context, where these substitutions have occurred Shon yWatt MD 04/19/17 1216 Tania Blankenship RN - [...] J?MRN: | | | | | | [id number] | | | [id number] | | | his | | | [...] | | | St. | | | [place] | | | y | | | [...] | | | St. | | | [place] | | | y H. | | [...] | | | St. | | | [place] | | | y H. | | [...] | | | St. | | | [place] | | | y H. | | [...] | | | St. | | | [place] | | | y H. | | [...] | | | St. | | | [place] | | | y H. | | [...] | | | St. | | | [place] | | | y | | | [...] | | | ext. | | | [address] | | | or go | | [...] | | | [place] | | | [facility], | | | [place] - | | [...] [address] | [place] | [phone] | | [facility] | | [address] | | | - LABORATORY | | [...] mL/min/1.73m2 | [facility] | | | [place] | RATE,ESTIMATED | | MEDICAL | | | | mL/min/1.81c5Cevt than | | CENTER - | | [...] [address] | [place] | [phone] | | [facility] | | [address] | | | - LABORATORY | | [...] | | | | | [place] ([id number]) on | | | | | | [...] [address] | [place] | [phone] | | [facility] | | [address] | | | - LABORATORY | | [...] | [employer] Tube | | | [facility] | | | | [...] [address] | [place] | [phone] | | [facility] | | [address] | | | - LABORATORY | | [...] [address] | [place] | [phone] | | [facility] | | [address] | | | - LABORATORY | | [...] + | [facility] | [address] | [place] | [phone] | | [facility] | | [address] | | | - LABORATORY | | [...] mL/min/1.73m2 | [facility] | | | [place] | RATE,ESTIMATED | | MEDICAL | | | | mL/min/1.87o3Kiwp than | | CENTER - | | [...] 3.5 | 3.2 - 5.0 g/dL | [facility] | | | | | | [facility] [...] + | [facility] | [address] | [place] | [phone] | | [facility] | | [address] | | | - LABORATORY | | [...] [address] | [place] | [phone] | | [facility] | | [address] | | | - LABORATORY | | [...] [address] | [place] | [phone] | | [facility] | | [address] | | | - LABORATORY | | [...]
--- OUTSIDE RECORDS SUMMARY | ~2020-04-12 | XMS | Encounter Summary ---
Demographics + + + | Address | [address] | | | [place] [address] | + + + | Home Phone | | + + + | Preferred Language | Unknown | + + + | Marital Status | Single | + + + | Voodoo Affiliation | 1001 | + + + | Race | White | + + + | Ethnic Group | Not or | + + + Author + + + | Author | [facility] | | | and Ryana | + + + | Organization | [facility] | | | [...] Team Providers + +------+ + | Care Falsework Builder Name | Role | Phone | + +------+ + PCP | Unavailable | + +------+ + Encounter Details +--------+ + + + + | Date | Type | Department | Care Team | Description | +--------+ + + + + | 03/30/ | Hospital | [facility] | Brooke Kemp | | | 2008 | Encounter | HOSPITAL EMERGENCY | MD [address] | | | | | [place] [address] | [address] [place] | | [address] [place], [place] | [place] [address] | | | | | [address] | [phone] | | | | | [phone] | | | +--------+ + + + [...]
--- OUTSIDE RECORDS SUMMARY | ~2020-04-12 | XMS | Encounter Summary ---
Demographics + + + | Address | [address] | | | [place] [address] | + + + | Home Phone [...] Organization | [facility] | | | and [place] | + [...] Team Providers + +------+ + | Care Actuarial Science Professor Name | Role | Phone | + +------+ + PCP | Unavailable | + +------+ + Encounter Details +--------+ + + + + | Date | Type | Department | Care Team | Description | +--------+ + + + + | 12/18/ | Hospital | [facility] | Mohsen Carranza | | | 1999 | Encounter | H[facility]PITAL [address] Need updated | | | | | [place] | address | | | | | [address] | | | | | | [phone] | | | +--------+ + + + [...]
--- OUTSIDE RECORDS SUMMARY | ~2020-04-12 | XMS | Encounter Summary ---
Demographics + + + | Address | [address] | | | [place] [address] | + + + | Home Phone [...] Author + + + | Author | [facility] | | | and Ryana | + + + | Organization | [facility] | | [...] Team Providers + +------+ + | Care Unmanned Equipment Operator Name | Role | Phone | [...] [address] | | | | | | [place], [place] | | | | | | [address] | | | | | | [phone] | | | +--------+ + + + [...] + + | [facility]SEPH [facility]. | [address] | [place] | [phone] | | [facility] | | [address] | | | - LABORATORY | | | | + + + + + documented in this encounter Visit Diagnoses Not on filedocumented in this encounter"
--- OUTSIDE RECORDS SUMMARY | ~2020-04-12 | XMS | Encounter Summary ---
Demographics + + + | Address | [address] | | | [place] [address] | + + + | Home Phone [...] Team Providers + +------+ + | Care Exhibitor Sales Name | Role | Phone | + [...] + + | 04/09/ | Emergency | [facility] | Adi [place] | Hyperglycemia | | 2017 | | [facility] | Alexander Craig MD | (Primary Dx) | | | | CENTER [address] | [address] | | | | | [place] | [place] | | | | | [address] | [address] | | | | | [phone] | | | +--------+ + + + [...] might be d ifferent from the original. [facility] Joni Kwon Emergency Department Encounter Note [address] [place] [address] PCP:DENIS Paul x2500 eMERGENCY dEPARTMENT eNCOUnter CHIEF [...] deficits noted, no facial assymetry noted. 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 Occasi onal wrong-word or [...] J?MRN: | | | | | | [id number] | | | [id number] | | | his | | | [...] | | | St. | | | [place] | | | y H. | | [...] | | | St. | | | [place] | | | y H. | | [...] | | | St. | | | [place] | | | y H. | | [...] | | | St. | | | [place] | | | y H. | | [...] | | | St. | | | [place] | | | y H. | | [...] | | | St. | | | [place] | | | y | | | [...] + | [facility] | [address] | [place] | [phone] | | [facility] | | [address] | | | - LABORATORY | | [...] | | POC | | | [facility] | | | | | | MEDICAL [...] ST. | [address] | [place], [place] | [phone] | | [facility] | | [address] | | | - LABORATORY | | [...] | | | | mmHg | [facility] | | | | [...] [address] | [place] | [phone] | | [facility] | | [address] | | | - LABORATORY | | [...] + | [facility] | [address] | [place] | [phone] | | [facility] | | [address] | | | - LABORATORY | | [...] + | [facility] | [address] | [place] | [phone] | | [facility] | | [address] | | | - LABORATORY | | | | + + + + + Lipase (04/09/2017 9:40 AM PDT) + +-------+ + + + | Component | Value | Ref Range | Performed | Pathologist | | | | | At | Signature | + +-------+ + + + | Lipase | 23 | 0 - 60 U/L | [facility] [...] [address] | [place] | [phone] | | [facility] | | [address] | | | - LABORATORY | | [...] Critical Result called | mmol/L | [facility] | | | | to and [...] 14 | 7 - 18 mg/dL | [facility] | | | | | | [facility] | | | | | | MEDICAL | | | | | | CENTER - | | | | | | LABORATORY | | + + + + + + | Creatinine | 0.93 | 0.60 - 1.30 | [facility] | | | | | mg/dL | [facility] | | | | | | MEDICAL | | | | | | CENTER - | | | | | | LABORATORY | | + + + + + + | eGFR, | >60Comment: GLOMERULAR | >=60 | [facility] | | | non- | FILTRATION | mL/min/1.73m2 | [facility] | | | [place] | RATE,ESTIMATED | | MEDICAL | | | | mL/min/1.55p9Tveb than | | CENTER - | | [...] Total | appended report. These | | [facility] [...] ST. | [address] | [place], [place] | [phone] | | [facility] | | [address] | | | - LABORATORY | | [...] [facility] | | | | | | [facility] | | | | | | [...] | | Eosinophils | | K/uL | [facility] | | | | | | MEDICAL | | | | | | CENTER - | | | | | | LABORATORY | | + + + + + + | Absolute | 0.00 | 0.00 - 0.10 | [facility] | | | Basophils | | K/uL | [facility] | | | | | [...] [address] | [place] | [phone] | | [facility] | | [address] | | | - LABORATORY | | [...] 1.001 - 1.030 | | | | [place], | | | | | | [facility], [...] [address] | [place] | [phone] | | [facility] | | [address] | | | - LABORATORY | | [...] +-------+------+------+ | albuterol-ipratropium (DUONEB) | Given | 10/18/20 | 3 mLs | | | | [...]
--- OUTSIDE RECORDS SUMMARY | ~2020-04-12 | XMS | Encounter Summary ---
Demographics + + + | Address | [address] | | | [place] [address] | + + + | Home Phone [...] + + | Author | [facility] | | | and Ryana | + + + | Organization | [facility] | | | [...] Team Providers + +------+ + | Care Silverware Buffer Name | Role | Phone | + +------+ + PCP | Unavailable | + +------+ + Encounter Details +--------+ + + + + | Date | Type | Department | Care Team | Description | +--------+ + + + + | 04/07/ | Hospital | [facility] | Ami Young | | | 2008 | Encounter | CONVERSION | A, [facility] [address] | | | | | [address]PART[address] | [place], [place] | | | | [address] | [address] | | | | | [place] | [phone] | | | | | [address] | | | | | | [phone] | | | +--------+ + + + [...]
--- OUTSIDE RECORDS SUMMARY | ~2020-04-12 | XMS | Encounter Summary ---
Demographics + + + | Address | [address] | | | [place] [address] | + + + | Home Phone [...] + + + | Author | [facility] | | | and Ryana | + + + | Organization | [facility] | [...] Team Providers + +------+ + | Care Diversity Intern Name | Role | Phone | + +------+ + PCP | Unavailable | + +------+ + Encounter Details +--------+ + + + + | Date | Type | Department | Care Team | Description | +--------+ + + + + | 03/11/ | Hospital | [facility] | Shivam Garzon | | | 2003 | Encounter | [address] | DO [address] | | | | | [place], [place] | [place], [place] | | | | | [address] | [address] | | | | | [phone] | | | +--------+ + + + [...]
--- OUTSIDE RECORDS SUMMARY | ~2020-04-12 | XMS | Encounter Summary ---
Demographics + + + | Address | [address] | | | [place] [address] | + + + | Home Phone [...] Team Providers + +------+ + | Care Dental Services Director Name | Role | Phone | + +------+ + PCP | Unavailable | + +------+ + Encounter Details +--------+ + + + + | Date | Type | Department | Care Team | Description | +--------+ + + + + | 02/23/ | [facility] | ROGELIO TALAMANTES | Abhi Berger | | | 2003 | Encounter | FAMILY MEDICINE [address] | MD Chava [address] | | | | | [place] [place] | [place], [place] | | | | | [place] [address] | [address] | | | | | [phone] | | | +--------+ + + + [...]
--- OUTSIDE RECORDS SUMMARY | ~2020-04-12 | XMS | Encounter Summary ---
Demographics + + + | Address | [address] | | | [place] [address] | + + + | Home Phone | | + + + | Preferred Language | Unknown | + + + | Marital Status | Single | + + + | Protestant Affiliation | 1001 | + + + [...] Team Providers + +------+ + | Care Solution Engineer Name | Role | Phone | [...] + + | 05/07/ | Hospital | [facility] | Vicky Méndez | Diabetic | | 2017 - | Encounter | MED CTR ICU [address] | MD [address] | ketoacidosis without | | | | [place], | [address] [place], | coma associated | | 05/09/ | | [place] [address] | [place] [address] | with type 1 diabetes | | 2017 | | [phone] | [phone] | mellitus (HCC) | | | | | | (Primary Dx); | | | | | Dougie Yin MD | Nausea; IDDM | | | | | [address] | (insulin dependent | | | | | [place] | diabetes mellitus) | | | | | [address] | (HCC) | | | | | [...] might be different fr om the original. [place] HOSPITALIST DISCHARGE SUMMARY Pt. Name/Age/: Joni Brown Doyle 36 y.o. 1980 Date of Admission: 05/07/2017 [...] information: [address] [place] [address] DENIS Paul In 1 week. 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 Electronically signed by: Dougie Yin MD, 05/09/2017 8:42 [facility] Portions of this chart may have been created with [email or web address] voice recognition software. Occasi onal wrong-word or [...] be sent through Care Everywhere.Diabetic Ketoac idosis (Azeri)documented in this encounter Medications at Time of [...] | 17 | 9 | | | Christian Cantrell | | | | | | [...] | 0 | 05/03/20 | | | (CHRISTIAN TADEOAR) | under the skin every | | [...] might be different fr om the original. [place] HOSPITALIST PROGRESS NOTE Patient: Joni Kwon : 1980: Age: 36 y.o. MedRec: [id number] Admission date: 05/07/2017 Hospital day # : [...] Procedure Component Value Units Date/Time Culture, MRSA [[id number]] Collected: 05/07/17 6551 Order Status: Completed Lab Status: Final result Updated: 05/08/17 1336 Specimen: Respiratory from Nares Culture Negative for [...] PPX: HSQ Dougie Yin MD 05/09/2017 7:57 [facility] Dougie Crawford MD - 05/08/2017 7:43 AM PST [facility] [place] HOSPITALIST PROGRESS NOTE Patient: Joni Kwon : 1980: Age: 36 y.o. MedRec: [id number] Admission date: 05/07/2017 Hospital day # : [...] there is no significant change Confirmed by HAWA RUBIN MD ([id number]) on 05/08/2017 7:10:41 AM Basic Metabolic Panel [...] Procedure Component Value Units Date/Time Culture, MRSA [[id number]] Collected: 05/07/171730 Order Status: Sent Lab Status: [...] PPX: HSQ Dougie Yin MD 05/08/2017 7:43 [facility] Romelia Henry Pha rmD - 05/07/2017 4:17 [...] and directions X Pharmacy list names: [facility] [place] [facility] [place] [facility] [place] [facility] [employer] (Prescription Monitoring Program) X [employer] insurance reported [...] performed and electronically signed by Morenita García, Emergency Department 05/07 16:12 Reviewed by Romelia Valdez, PharmD 05/07/2017 16:16 documented in thi s encounter H&P Notes Dougie Yin MD - 05/07/2017 4:38 PM PSTFormatting of this note might be different fr om the original. [place] HOSPITALIST HISTORY & PHYSICAL Patient: Joni Kwon : 1980: Age: 36 y.o. MedRec: [id number] Admission date: 05/07/2017 Hospital day # : 0 Physician author: Dougie Yin MD Today: 05/07/2017 CHIEF COMPLAINT: Nausea/Emesis HISTORY OF PRESENT ILLNESS: This is a 36 y.o. male with a history of DMI, Schizophrenia who presents with nausea and vo miting. The patient reports waking up in the morning and feeling nauseous. The patient lives across the street at [facility] and while walking to the hospital had [...] resolution of DKA FEN: NPO PPX: HSQ [facility] Documentation I expect this patient will be hospitalized for greater than 2-midnights and expect the post -hospital plan to be discharge to home or to an adult foster home. Electronically signed by: Dougie Yin MD 05/07/2017 16:38 [facility] documented in this e ncounter ED Notes Vicky Méndez MD - 05/07/2017 1:06 PM PSTFormatting of this note might be diffe rent from the original. [facility] Joni Kwon Emergency Department Encounter Note [address] [place] [id number] PCP:Shavon Covington, LANGUAGE ASST [phone] CHIEF COMPLAINT: Chief Complaint Patient presents with Emesis ED Room: 452/2-[facility] Joni Kwon is a 36 y.o. [...] Diabetes mellitus (HCC) Type 1 diabetes Schizophrenia ([facility]) Past Surgical History: Procedure Laterality Date TONSILLECTOMY [...] Paul. Specialty: Family Nurse Practitioner Contact information: [address] [facility] [address] [place] [address] Current Discharge Medication List Vicky Méndez MD 05/07/17 8170 Demetria, Liat Ro RN - 05/07/2017 12:09 [...] of back pain as originally told to floor clerk. documented in this encounter Miscellaneous Notes [...] per their request. Brody Menendez CM from [facility] in [facility] and spoke to Joni this morning as [...] for nausea, elevated blood sugar l evels. Associate Civil Engineer visit was part of routine rounding. Spiritual Evaluation: Patient was a little groggy when I entered the room and introduced myself; he roused and wa s quite conversational. He is grateful for the care he is receiving while here, and asked me to pray for God's provision for a place to live. He is listed in the patient census as havi ng no buddhist preference, but his speech was indicative of some Congregation background and v alues. Spiritual Interventions: I [...] was a ttempting to go back to [place] via the [place] the other day but was too charlee seous to go and ended up in our ER. He said that Brody Menendez, his CM from [facility] in [place], [place], was expecting to pick him up at [facility] to make arrangements [facility] in [place]. He said that until they had an apartment arranged for him he will stay wit h either family or friends. I obtained Joni's permission to call Brody Menendez and let hi m know that he is in the hospital and what his anticipated discharge plan is. I also obtain ed his permission to call his Mom. I called Brody ([phone]) and left a message requestin g a return call. I then called his Mom, Blossom Kwon ([phone]) and she said that she would be able to come pick him up and transfer him home [facility]. I let her know that [...] the Discharge Summary to his PCP at ([phone]). Joni also said that he will need more strips for his glucom eter. He uses the [facility] pharmacy located in [place], [place]. He had no other questions or needs at this time. I will follow up tomorrow. Electronically signed by: Krystal Bradley RN 05/08/2017 14:15 I received a call from Brody Menendez from [place] and he said that he would call Blossom cerna and coordinate a meeting for himself and Joni either tomorrow or Friday. He also sa id that he would assist with helping him make his follow up appointments with his PCP. Elec tronically signed by: Krystal Bradley RN 05/08/2017 17:07 [facility] - Tamika Killian RN - 05/08/2017 10:53 [...] SCD pumps, continuous education provided. [facility] - Cassandra Reeves RN - 05/08/2017 6:08 [...] - 05/07/2017 4:34 PM PSTDischarge Planning: This DIRECTOR LEARNING AND DEVELOPMENT came to the ED to speak with Kamari. Kamari is a homeless gentleman, that is originally from [place]. He is currently living in [facility]. Kamari reports he is diabetic and has a glucometer @ the [facility] (not sure this is true because he could not report his blood glucose reading to the RN during t). He reports he has been in [place] for his ADHD and Schizophrenia. Kamari reports [facility] cut him of f when of his mental health medications but he could not tell me which. Kamari's PCP is in [facility] as well. Kamari has not decided if he will stay in or return to [place]. His mother lives in [facility]. I explained to Kamair proper ED usage (which does not apply to him today as he will be admitte d for DKA). I offered assistance with a glucometer- he refused. I offered setting him up with a PCP in [place]- he refused. CM to follow up prior [...] ST. | [address] | [place], [place] | [phone] | | [facility] | | [address] | | | - LABORATORY | | [...] [address] | [place] | [phone] | | [facility] | | [address] | | | - LABORATORY | | [...] + | [facility] | [address] | [place] | [phone] | | [facility] | | [address] | | | - LABORATORY | | [...] | mL/min/1.73m2 | [facility] | | | [place] | RATE,ESTIMATED | | MEDICAL | | | | mL/min/1.09p8Nfym than | | CENTER - | | [...] | ine Ratio | | | [facility] | | | | | | MEDICAL [...] [address] | [place] | [phone] | | [facility] | | [address] | | | - LABORATORY | | [...] [address] | [place] | [phone] | | [facility] | | [address] | | | - LABORATORY | | [...] [address] | [place] | [phone] | | [facility] | | [address] | | | - LABORATORY | | [...] [address] | [place] | [phone] | | [facility] | | [address] | | | - LABORATORY | | [...] 16 | 7 - 18 mg/dL | [facility] | | | | | | [facility] | | | | | | MEDICAL | | | | | | CENTER - | | | | | | LABORATORY | | + + + + + + | Creatinine | 0.82 | 0.60 - 1.30 | [place] | | | | | mg/dL | [facility] | | | | | | MEDICAL | | | | | | CENTER - | | | | | | LABORATORY | | + + + + + + | eGFR, | >60Comment: GLOMERULAR | >=60 | [place] | | | non- | FILTRATION | mL/min/1.73m2 | [facility] | | | [place] | RATE,ESTIMATED | | MEDICAL | | | | mL/min/1.75r0Tnbi than | | CENTER - | | [...] + | [facility] | [address] | [place] | [phone] | | [facility] | | [address] | | | - LABORATORY | | [...] mL/min/1.73m2 | [facility] | | | [place] | RATE,ESTIMATED | | MEDICAL | | | | mL/min/1.66a0Lzwo than | | CENTER - | | [...] ST. | [address] | [place] | [phone] | | [facility] | | [address] | | | - LABORATORY | | [...] [address] | [place] | [phone] | | [facility] | | [address] | | | - LABORATORY | | [...] + | [facility] | [address] | [place] | [phone] | | [facility] | | [address] | | | - LABORATORY | | [...] [address] | [place] | [phone] | | [facility] | | [address] | | | - LABORATORY | | [...] [address] | [place] | [phone] | | [facility] | | [address] | | | - LABORATORY | | [...] + | [facility] | [address] | [place] | [phone] | | [facility] | | [address] | | | - LABORATORY | | [...] | mL/min/1.73m2 | [facility] | | | [place] | RATE,ESTIMATED | | MEDICAL | | | | mL/min/1.68v1Czzg than | | CENTER - | | [...] + | BUN/Creatin | 20.5 | | [facility] | | | ine [...] | + + + + + | [facility] | [address] | [place] | [phone] | | [facility] | | [address] | | | - LABORATORY | | [...] [address] | [place] | [phone] | | [facility] | | [address] | | | - LABORATORY | | [...] [address] | [place] | [phone] | | [facility] | | [address] | | | - LABORATORY | | [...] [address] | [place] | [phone] | | [facility] | | [address] | | | - LABORATORY | | [...] mL/min/1.73m2 | [facility] | | | [place] | RATE,ESTIMATED | | MEDICAL | | | | mL/min/1.14o9Bble than | | CENTER - | | [...] [address] | [place] | [phone] | | [facility] | | [address] | | | - LABORATORY | | [...] [address] | [place] | [phone] | | [facility] | | [address] | | | - LABORATORY | | [...] + | [facility] | [address] | [place] | [phone] | | [facility] | | [address] | | | - LABORATORY | | [...] + | [facility] | [address] | [place] | [phone] | | [facility] | | [address] | | | - LABORATORY | | [...] [address] | [place] | [phone] | | [facility] | | [address] | | | - LABORATORY | | [...] + | [facility] | [address] | [place] | [phone] | | [facility] | | [address] | | | - LABORATORY | | [...] [address] | [place] | [phone] | | [facility] | | [address] | | | - LABORATORY | | [...] [address] | [place] | [phone] | | [facility] | | [address] | | | - LABORATORY | | [...] (H) | 7 - 18 mg/dL | [facility] | | | | | | [facility] | | | | | | MEDICAL | | | | | | CENTER - | | | | | | LABORATORY | | + + + + + + | Creatinine | 1.18 | 0.60 - 1.30 | [place] | | | | | mg/dL | [facility] | | | | | | MEDICAL | | | | | | CENTER - | | | | | | LABORATORY | | + + + + + + | eGFR, | >60Comment: GLOMERULAR | >=60 | [place] | | | non- | FILTRATION | mL/min/1.73m2 | [facility] | | | [place] | RATE,ESTIMATED | | MEDICAL | | | | mL/min/1.68i0Qqab than | | CENTER - | | [...] + | [facility] | [address] | [place] | [phone] | | [facility] | | [address] | | | - LABORATORY | | [...] ST. | [address] | [place], [place] | [phone] | | [facility] | | [address] | | | - LABORATORY | | [...] [address] | [place] | [phone] | | [facility] | | [address] | | | - LABORATORY | | [...] + | [facility] | [address] | [place] | [phone] | | [facility] | | [address] | | | - LABORATORY | | [...] mL/min/1.73m2 | [facility] | | | [place] | RATE,ESTIMATED | | MEDICAL | | | | mL/min/1.36c1Sqak than | | CENTER - | | [...] [address] | [place] | [phone] | | [facility] | | [address] | | | - LABORATORY | | [...] [address] | [place] | [phone] | | [facility] | | [address] | | | - LABORATORY | | [...] + | [facility] | [address] | [place] | [phone] | | [facility] | | [address] | | | - LABORATORY | | [...] [address] | [place] | [phone] | | [facility] | | [address] | | | - LABORATORY | | [...] eGFR, | 42 (L)Comment: | >=60 | [facility] | | | non- | GLOMERULAR FILTRATION | mL/min/1.73m2 | [facility] | | | [place] | RATE,ESTIMATED | | MEDICAL | | | | mL/min/1.80d9Okdz than | | CENTER - | | [...] [address] | [place] | [phone] | | [facility] | | [address] | | | - LABORATORY | | [...] + | [facility] | [address] | [place] | [phone] | | [facility] | | [address] | | | - LABORATORY | | [...] | | | | HAWA RUBIN MD ([id number]) | | | | | | on [...] [address] | [place] | [phone] | | [facility] | | [address] | | | - LABORATORY | | [...] [address] | [place] | [phone] | | [facility] | | [address] | | | - LABORATORY | | [...] [address] | [place] | [phone] | | [facility] | | [address] | | | - LABORATORY | | [...] [address] | [place] | [phone] | | [facility] | | [address] | | | - LABORATORY | | [...] 1.69 (H) | 0.60 - 1.30 | [facility] | | | | | mg/dL | [facility] | | | | | | MEDICAL | | | | | | CENTER - | | | | | | LABORATORY | | + + + + + + | eGFR, | 46 (L)Comment: | >=60 | [facility] | | | non- | GLOMERULAR FILTRATION | mL/min/1.73m2 | [facility] | | | [place] | RATE,ESTIMATED | | MEDICAL | | | | mL/min/1.75l0Fpqx than | | CENTER - | | [...] + | [facility] | [address] | [place] | [phone] | | [facility] | | [address] | | | [...] + | [facility] | [address] | [place] | [phone] | | [facility] | | [address] | | | - LABORATORY | | [...] [address] | [place] | [phone] | | [facility] | | [address] | | | - LABORATORY | | [...] + | [facility] | [address] | [place] | [phone] | | [facility] | | [address] | | | - LABORATORY | | [...] | | | | | NPO, Daytime 3650-0059 Use NIGHT | | | | | | | DOSE for doses scheduled: | | | | | | | HS, 3AM, Nighttime 7585-6275, | | | | | | + [...] 17 2:08 | | | | | Fri05/07/17 at 1405, For 1 dose | | [...]
--- OUTSIDE RECORDS SUMMARY | ~2020-04-12 | XMS | Encounter Summary ---
Demographics + + + | Address | [address] | | | [place] [address] | + + + | Home Phone [...] Team Providers + +------+ + | [employer] Faculty Member Name | Role | Phone | + [...] | | | | | | | ([facility]) | | | | | | | [...] | | | | | | | ([facility]) | | | +--------+--------+ + + + + Encounter Details +--------+ + + + + | Date | Type | Department | Care Team | Description | +--------+ + + + + | 06/20/ | Hospital | [facility] | Mitch Cee, | Diabetic | | 2016 - | Encounter | [facility] ICU [address] | MD [address] | ketoacidosis without | | | | [place], | [place], [place] | coma associated | | 06/21/ | | [place] [address] | [id number] | with other specified | | 2015 | | [phone] | | diabetes mellitus | | | | | Kevin Gifford MD | ([facility]) (Primary Dx); | | | | | [address] | Diabetic | | | | | [place], [place] | ketoacidosis without | | | | | [address] | coma associated | | | | | | with type 1 diabetes | | | | | | mellitus ([facility]) | +--------+ + + + + Social [...] days. 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 CS-Xjmzouzkogziv-Hvtetrbraacjm 10-5-325 MG Caps Take 1 capsule by [...] signed by: Santino Blake MD, 06/21/2016 17:44 [facility] documented in this enc ounter Medications [...] | | 0 | | | | QJ-Yikikconbbxnw-Vqw | mouth Daily as | | | [...] history techn rose will call 06/21/2016 @ 6583 to obtain current medication list and update [employer] WORK[employer] medicatio ns as necessary. Location of Patient [...] Prior to Admission Sig: Patient taking differently [employer] WORK[employer] as: Insulin Glargine 100 u/ml 15 units nightly 9 units in the morning and 6 units in the evenin g Medication added: Medication: Prior to Admission Sig: VI-Lecgokyfqzejq-Zschiahzjdngm 10-5-325 mg 1 cap daily as needed for sinus congestion Medication review performed and electronically signed by Luis Araujo Certified Hand Therapist 06/20 21:44 Reviewed by Ayala Han RPH 06/20/2016 21:53 documented in this en counter H&P Notes Kevin Gifford MD - 06/20/2016 11:07 PM PSTFormatting of this note might be different fro m the original. [place] HOSPITALIST HISTORY & PHYSICAL Patient: Joni Kwon : 1980: Age: 35 y.o. MedRec: [id number] PCP: DENIS Paul Admission date: 06/20/2016 Hospital [...] meal time (not large amounts) was in [facility] for DKA got out Friday and this morning () felt groggy and took he thinks to [place] [facility] Lantus and fell back to sleep then later woke up with above CC and had mom drive him to [facility] ER (his choice) found to be in [...] Take 100 mg by mouth every morning. SX-WFFCOJFCHCAZB-USDFKGZLLLNMZ 10-5-325 MG CAPS Take 1 capsule by [...] mouth every morning. Taking Histori cristobal ProviderMD OS-Hfyjpjiypjbdb-Cvamwrakrvkml 10-5-325 MG CAPS Take 1 capsule by [...] for input(s): IRON, TIBC, PCTSAT, FERRITIN, TSH, TIFYZRLA72, FOLATE in the last 168 hours. Inflammatory [...] ABG No results for input(s): PHART, PO2ART, TGN3QAW, IJI6CSJ, BEART, F0PCKCJI in the last 168 h ours. No results for input(s): SPECSOURCE, PHPOCB, PCO2, PO2, HCO3, TCO2, BEART, VHNX3REG in the last 168 hours. Drug of [...] summarized old records scant here nothing from [place] yet but RN was to r equest ASSESSMENT: (meyprob vs meyprobap) Principal Problem: Diabetic ketoacidosis without coma associated with type 1 diabetes sebastian Active [facility] Problems Diagnosis Diabetic ketoacidosis without coma associated with type 1 diabetes mellitus Just got out of [facility] for DKA 2 days ago Friday [...] (dot meyaddendum tdnorefesh nownorefresh) (dot meytime meycritical) [facility] Documentation I expect this patient will be hospitalized for greater than 2-midnights and expect the post -hospital plan to be discharge to home or to an adult foster home. Electronically signed by: Kevin Gifford MD 06/20/2016 23:07 [facility] (meyaddendum tdnorefesh nownorefresh) Portions of this chart may have been created with [email or web address] voice recognition software. Occasi onal wrong-word or [...] sugar. He was just discharged out of [facility] where he was r eportedly for DKA. [...] Mom and Dad were [facility] and also participated in this conversation. 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 Joni states she has been with [...] DENIS Diallo and he states he uses [facility] or [facility] pharmacies. His mom will [...] here), and chest pain. Was d/c from [facility] on Friday with DKA. documented in this [...] [address] | [place] | [phone] | | [facility] | | [address] | | | - LABORATORY | | [...] | 0.65 | 0.60 - 1.30 | [facility] | | | | | mg/dL | [facility] | | | | | | MEDICAL | | | | | | CENTER - | | | | | | LABORATORY | | + + + + + + | eGFR, | >60Comment: GLOMERULAR | >=60 | [facility] | | | non- | FILTRATION | mL/min/1.73m2 | [facility] | | | [place] | RATE,ESTIMATED | | MEDICAL | | | | mL/min/1.11i0Nuxh than | | CENTER - | | [...] + | [facility] | [address] | [place] | [phone] | | [facility] | | [address] | | | - LABORATORY | | [...] ST. | [address] | [place] | [phone] | | [facility] | | [address] | | | - LABORATORY | | [...] | | | | | mg/dL | [facility] | | | | | | MEDICAL | | | | | | CENTER - | | | | | | LABORATORY | | + + + + + + | eGFR, | >60Comment: GLOMERULAR | >=60 | [facility] | | | non- | FILTRATION | mL/min/1.73m2 | [facility] | | | [place] | RATE,ESTIMATED | | MEDICAL | | | | mL/min/1.22r8Hlwz than | | CENTER - | | [...] | | | | | mg/dL | [facility] | | | | | [...] [address] | [place] | [phone] | | [facility] | | [address] | | | - LABORATORY | | [...] + | [facility] | [address] | [place] | [phone] | | [facility] | | [address] | | | - LABORATORY | | [...] ST. | [address] | [place], [place] | [phone] | | [facility] | | [address] | | | - LABORATORY | | [...] [address] | [place] | [phone] | | [facility] | | [address] | | | - LABORATORY | | [...] | | | | mmol/L | [facility] | | | | [...] 14 | 7 - 18 mg/dL | [facility] | | | | | | [facility] | | | | | | MEDICAL | | | | | | CENTER - | | | | | | LABORATORY | | + + + + + + | Creatinine | 0.74 | 0.60 - 1.30 | [facility] | | | | | mg/dL | [facility] | | | | | | MEDICAL | | | | | | CENTER - | | | | | | LABORATORY | | + + + + + + | eGFR, | >60Comment: GLOMERULAR | >=60 | [facility] | | | non- | FILTRATION | mL/min/1.73m2 | [facility] | | | [place] | RATE,ESTIMATED | | MEDICAL | | | | mL/min/1.51r4Wrlu than | | CENTER - | | [...] + | [facility] | [address] | [place] | [phone] | | [facility] | | [address] | | | - LABORATORY | | [...] + | [facility] | [address] | [place] | [phone] | | [facility] | | [address] | | | - LABORATORY | | [...] [address] | [place] | [phone] | | [facility] | | [address] | | | - LABORATORY | | [...] [address] | [place] | [phone] | | [facility] | | [address] | | | - LABORATORY | | [...] [address] | [place] | [phone] | | [facility] | | [address] | | | - LABORATORY | | [...] 12 | 7 - 18 mg/dL | [facility] | | | | | | [facility] | | | | | | MEDICAL | | | | | | CENTER - | | | | | | LABORATORY | | + + + + + + | Creatinine | 0.64 | 0.60 - 1.30 | [facility] | | | | | mg/dL | [facility] | | | | | | MEDICAL | | | | | | CENTER - | | | | | | LABORATORY | | + + + + + + | eGFR, | >60Comment: GLOMERULAR | >=60 | [facility] | | | non- | FILTRATION | mL/min/1.73m2 | [facility] | | | [place] | RATE,ESTIMATED | | MEDICAL | | | | mL/min/1.95v8Itdg than | | CENTER - | | [...] [address] | [place] | [phone] | | [facility] | | [address] | | | - LABORATORY | | [...] - 1.030 | [facility] | | | [place], | | | [facility] | | [...] [address] | [place] | [phone] | | [facility] | | [address] | | | - LABORATORY | | [...] | | Screen, | | | [facility] | | | Urine | | | [...] [address] | [place] | [phone] | | [facility] | | [address] | | | - LABORATORY | | [...] [address] | [place] | [phone] | | [facility] | | [address] | | | - LABORATORY | | [...] | | | | | | [employer] | | | | | [...] [address] | [place] | [phone] | | [facility] | | [address] | | | - LABORATORY | | [...] [address] | [place] | [phone] | | [facility] | | [address] | | | - LABORATORY | | [...] + | [facility] | [address] | [place] | [phone] | | [facility] | | [address] | | | - LABORATORY | | [...] | | | | mmol/L | [facility] | | | | | | MEDICAL [...] mL/min/1.73m2 | [facility] | | | [place] | RATE,ESTIMATED | | MEDICAL | | | | mL/min/1.14r5Dvlv than | | CENTER - | | [...] + | [facility] | [address] | [place] | [phone] | | [facility] | | [address] | | | - LABORATORY | | [...] [address] | [place] | [phone] | | [facility] | | [address] | | | - LABORATORY | | [...] + | [facility] | [address] | [place] | [phone] | | [facility] | | [address] | | | - LABORATORY | | [...] | | | | HAWA RUBIN MD ([id number]) | | | | | | on [...] + | [facility] | [address] | [place] | [phone] | | [facility] | | [address] | | | - LABORATORY | | [...] + | [facility] | [address] | [place] | [phone] | | [facility] | | [address] | | | - LABORATORY | | [...] ST. | [address] | [place] | [phone] | | [facility] | | [address] | | | - LABORATORY | | [...] 18 | 7 - 18 mg/dL | [facility] | | | | | | [facility] | | | | | | MEDICAL | | | | | | CENTER - | | | | | | LABORATORY | | + + + + + + | Creatinine | 1.09 | 0.60 - 1.30 | [place] | | | | | mg/dL | [facility] | | | | | | MEDICAL | | | | | | CENTER - | | | | | | LABORATORY | | + + + + + + | eGFR, | >60Comment: GLOMERULAR | >=60 | [place] | | | non- | FILTRATION | mL/min/1.73m2 | [facility] | | | [place] | RATE,ESTIMATED | | MEDICAL | | | | mL/min/1.52q3Gimm than | | CENTER - | | [...] + | [facility] | [address] | [place] | [phone] | | [facility] | | [address] | | | - LABORATORY | | [...] [facility] | | | | | | [facility] | | | | | | MEDICAL [...] [address] | [place] | [phone] | | [facility] | | [address] | | | - LABORATORY | | [...] + | [facility] | [address] | [place] | [phone] | | [facility] | | [address] | | | - LABORATORY | | [...] + | [facility] | [address] | [place] | [phone] | | [facility] | | [address] | | | - LABORATORY | | [...] | | [employer] | | | [facility] | | | | | | [...] + | [facility] | [address] | [place] | [phone] | | [facility] | | [address] | | | - LABORATORY | | [...] [address] | [place] | [phone] | | [facility] | | [address] | | | - LABORATORY | | [...] [address] | [place] | [phone] | | [facility] | | [address] | | | - LABORATORY | | [...] | | | | | NPO, Daytime [id number] Use NIGHT | | | | | | | DOSE for doses scheduled: | | | | | | | HS, 3AM, Nighttime 8090-1436, | | | | | | + [...] | | | | | | Starting [facility] 06/20/16 at 1940 | | | [...] PST | | | | | ONCE, [facility] 06/20/16 at 1940, For 1 | [...]
--- OUTSIDE RECORDS SUMMARY | ~2020-04-12 | XMS | Encounter Summary ---
Demographics + + + | Address | [address] | | | [place] [address] | + + + | Home Phone [...] Team Providers + +------+ + | Care Prefinish Operator Name | Role | Phone | [...] + + | 10/03/ | Hospital | [facility] | Edgar Nunez, | Diabetic | | 2017 - | Encounter | MED CTR ICU [address] | MD [address] | ketoacidosis without | | | | [place], | [place], [place] | coma associated | | 10/04/ | | [place] [address] | [address] | with type 1 diabetes | | 2017 | | [phone] | | mellitus (HCC) | | | | | Efren Burnham P, | (Primary Dx); | | | | | DO [address] | Hyperkalemia; Acute | | | | | MS LLH21 [place], | kidney injury (HCC); | | | | | [place] [address] | Acute hyperkalemia; | | | | | [phone] | Acute renal | | | | [...] type | | | | | | ([facility]); Sensation of | | | [...] last month, he was admitted here at [facility] 09/26 through 09/28 and then week later was admitted at [facility] for the DKA a s well. [...] signed by: Siddhartha Pierson MD, 10/04/2016 8:33 [facility] documented in this encounter Discharge Instructions [...] resources below can help you learn more: [place] Diabetes [phone].diabetes.org Lighthouse [phone].lighthouse.org National Eye [phone] www.nei.nih.gov Hormone Health [phone] www.hormone.org Date Last Reviewed: 10/22/201519997866-4971 [employer]. [address] [place] [address], [place] [address]. All righ ts reserved. This information is [...] bimart garcia and [facility] garcia [x] [facility] CHAIN SALES REPRESENTATIVE (Prescription Monitoring Program) [x] [employer] insurance reported [...] performed and electronically signed by Morenita García, Production Hand 7 19:25 Reviewed by: Hannah Mijares PHARMD 10/03/2016 19:41 documented in this encounter H&P Notes Efren Burnham DO - 10/03/2016 6:09 AM PDTFormatting of this note might be different f rom the original. [facility] HISTORY & PHYSICAL Patient: Joni Kwon : 1980: Age: 35 y.o. MedRec: [id number] PCP: DENIS Paul Admission date: 10/03/2016 Hospital [...] last month, he was admitted here at [facility] from 09/26 through and then week later was admitted at [facility] for the DKA as well. Drein g to patient's mother he has history [...] CKTOTAL No results for input(s): PHART, PO2ART, XXV6KPF, ZUK7SWH, BEART, V9BEAVHB in the last 168 h ours. Recent Labs Lab 09/26/16 2313 HCO3 3.6 (dot meylab) Xray Results: No results found. I reviewed imaging shows no acute cardiopulmonary disease. EKG Results (I reviewed EKG) Sinus tachycardia, vent rate 127 bpm, nonspecific ST changes, no change compared to EKG from 09/26/16 ASSESSMENT: Principal Problem: Diabetic ketoacidosis without coma associated with type 1 diabetes sebastian [facility] Problems Diagnosis Diabetic ketoacidosis [...] Nunez patient used to live in a senior living in [place] and was doing much better then with his diabetes control. She told Dr. Nunez that she is unable to take care of him at this point. - since this is patient's 3rd admission to the hospital for DKA, patient is high risk to re turning back to his previous living situation. - will obtain case management consult for placement in a senior living again. Nausea and vomiting in adult - [...] signed by: Efren Burnham DO 10/03/2016 6:09 [facility] Dot phrase reference: VSHOSP (VS in table, last 24 hours) MEYLAB (various labs to pull in) DT (date and time) LABRCNTIP[K:3,Na:3 (last 3 sets of labs using potassium and sodium as examples) HGB HCT PLT INR GLU POCGLU Na K BUN CREA, CALCIUM TROPONINI BNP DIGOXIN Portions of this chart may have been created with [employer] voice recognition software. Occasi onal wrong-word or [...] Patient was admitted 2 weeks ago to [facility] for DKA and one week ago to [facility] for DKA. He is a poorly controlled diabetic who has difficul ty with medical compliance. He reports that tonight he woke up after falling asleep around 5 p.m. and was having nauseousness and pain radiating through his chest to his back. He was a lso having rapid breathing. Blood sugar was high. He lives in [facility]. His mother blake ried to drive him here and stopped in [place] to have paramedics transfer him to [facility]. He has not had any fevers. [...] by me Rhythm: Sinus tachycardia Rate: 127 [place]: normal Ectopy: none Conduction: normal ST Segments: [...] with compliance. Pt contacted mother who will apple picker pt after d ischarge. VSS, no distress, all questions answered, ambulatory off unit, pt had no further q uestions lan of Codi Vitale RN - 10/04/2016 9:23 AM PDTBriefly revisited with Joni regarding his discharge and living situation. He states he lives with his sister and his mom in [place], he has discharge orders and redmond s [...] He reports he lives with family in [place]. He also reports he is independent with all of his ADL's, he does not use any DME, oxygen or CPAP. His PCP is Shavon Covington and [facility] uses [facility]. He is unsure of what discharge needs he might have. During our conversation, he was very s oft spoken and kept his eyes closed. Admitting provider placed CM consult for placement into a senior living, will revisit with Kamari gardiner at another [...] + | [facility] | [address] | [place] | [phone] | | [facility] | | [address] | | | - LABORATORY | | [...] + | [facility] | [address] | [place], [place] | [phone] | | [facility] | | [address] | | | - LABORATORY | | [...] mL/min/1.73m2 | [facility] | | | [place] | RATE,ESTIMATED | | MEDICAL | | | | mL/min/1.04l6Ntib than | | CENTER - | | [...] (L) | 3.2 - 5.0 g/dL | [facility] [...] [address] | [place] | [phone] | | [facility] | | [address] | | | - LABORATORY | | [...] + | [facility] | [address] | [place], [place] | [phone] | | [facility] | | [address] | | | - LABORATORY | | [...] [address] | [place] | [phone] | | [facility] | | [address] | | | - LABORATORY | | [...] ST. | [address] | [place], [place] | [phone] | | [facility] | | [address] | | | - LABORATORY | | [...] [address] | [place] | [phone] | | [facility] | | [address] | | | - LABORATORY | | [...] + | [facility] | [address] | [place] | [phone] | | [facility] | | [address] | | | - LABORATORY | | [...] [address] | [place] | [phone] | | [facility] | | [address] | | | - LABORATORY | | [...] [address] | [place] | [phone] | | [facility] | | [address] | | | - LABORATORY | | [...] 16 | 7 - 18 mg/dL | [facility] | | | | | | [facility] | | | | | | MEDICAL | | | | | | CENTER - | | | | | | LABORATORY | | + + + + + + | Creatinine | 1.00 | 0.60 - 1.30 | [facility] | | | | | mg/dL | [facility] | | | | | | MEDICAL | | | | | | CENTER - | | | | | | LABORATORY | | + + + + + + | eGFR, | >60Comment: GLOMERULAR | >=60 | [facility] | | | non- | FILTRATION | mL/min/1.73m2 | [facility] | | | [place] | RATE,ESTIMATED | | MEDICAL | | | | mL/min/1.96y3Whkd than | | CENTER - | | [...] + | [facility] | [address] | [place] | [phone] | | [facility] | | [address] | | | - LABORATORY | | [...] + | [facility] | [address] | [place] | [phone] | | [facility] | | [address] | | | - LABORATORY | | [...] [address] | [place] | [phone] | | [facility] | | [address] | | | - LABORATORY | | [...] [address] | [place] | [phone] | | [facility] | | [address] | | | - LABORATORY | | [...] + | [facility] | [address] | [place] | [phone] | | [facility] | | [address] | | | - LABORATORY | | [...] ST. | [address] | [place], [place] | [phone] | | [facility] | | [address] | | | - LABORATORY | | [...] [address] | [place] | [phone] | | [facility] | | [address] | | | - LABORATORY | | [...] 16 | 7 - 18 mg/dL | [facility] | | | | | | [facility] | | | | | | MEDICAL | | | | | | CENTER - | | | | | | LABORATORY | | + + + + + + | Creatinine | 0.93 | 0.60 - 1.30 | [facility] | | | | | mg/dL | [facility] | | | | | | MEDICAL | | | | | | CENTER - | | | | | | LABORATORY | | + + + + + + | eGFR, | >60Comment: GLOMERULAR | >=60 | [facility] | | | non- | FILTRATION | mL/min/1.73m2 | [facility] | | | [place] | RATE,ESTIMATED | | MEDICAL | | | | mL/min/1.74e6Dxgz than | | CENTER - | | [...] [address] | [place] | [phone] | | [facility] | | [address] | | | - LABORATORY | | | | + + + + + POC Glucose (10/03/2016 1:00 PM PDT) + +-------+ + + + | Component | Value | Ref Range | Performed | Pathologist | | | | | At | Signature | + +-------+ + + + | Glucose, | 81 | 70 - 150 mg/dL | [facility] [...] ST. | [address] | [place], [place] | [phone] | | [facility] | | [address] | | | - LABORATORY | | [...] [address] | [place] | [phone] | | [facility] | | [address] | | | - LABORATORY | | [address] | [place] | [phone] | | [facility] | | [address] | | | - LABORATORY | | [address] | [place] | [phone] | | [facility] | | [address] | | | - LABORATORY | | [...] | | Hydroxybuty | | mmol/L | [facility] | | | rate | | [...] [address] | [place] | [phone] | | [facility] | | [address] | | | - LABORATORY | | [...] (H) | 7 - 18 mg/dL | [facility] | | | | | | [facility] | | | | | | MEDICAL | | | | | | CENTER - | | | | | | LABORATORY | | + + + + + + | Creatinine | 1.39 (H) | 0.60 - 1.30 | [facility] | | | | | mg/dL | [facility] | | | | | | MEDICAL | | | | | | CENTER - | | | | | | LABORATORY | | + + + + + + | eGFR, | 58 (L)Comment: | >=60 | [facility] | | | non- | GLOMERULAR FILTRATION | mL/min/1.73m2 | [facility] | | | [place] | RATE,ESTIMATED | | MEDICAL | | | | mL/min/1.34d4Rvra than | | CENTER - | | [...] + | [facility] | [address] | [place] | [phone] | | [facility] | | [address] | | | - LABORATORY | | [...] + | [facility] | [address] | [place] | [phone] | | [facility] | | [address] | | | - LABORATORY | | [...] [address] | [place] | [phone] | | [facility] | | [address] | | | - LABORATORY | | [...] + | [facility] | [address] | [place] | [phone] | | [facility] | | [address] | | | - LABORATORY | | [...] [address] | [place] | [phone] | | [facility] | | [address] | | | - LABORATORY | | [...] [address] | [place] | [phone] | | [facility] | | [address] | | | - LABORATORY | | [...] | | | | HAWA RUBIN MD ([id number]) | | | | | | on [...] | | | Source | | | [facility] | | [...] + | [facility] | [address] | [place] | [phone] | | [facility] | | [address] | | | - LABORATORY | | [...] ST. | [address] | [place] | [phone] | | [facility] | | [address] | | | - LABORATORY | | | | + + + + + Magnesium (10/03/2016 4:06 AM PDT) + +---------+ + + + | Component | Value | Ref Range | Performed | Pathologist | | | | | At | Signature | + +---------+ + + + | Magnesium | 2.7 (H) | 1.8 - 2.5 mg/dL | [facility] [...] [address] | [place] | [phone] | | [facility] | | [address] | | | - LABORATORY | | [...] LDL unable to | <=130 mg/dL | [facility] | | | Calculated | calculate due [...] ST. | [address] | [place] | [phone] | | [facility] | | [address] | | | - LABORATORY | | [...] ROJAS. | [address] | [place] | [phone] | | [facility] | | [address] | | | - LABORATORY | | [...] + | [facility] | [address] | [place] | [phone] | | [facility] | | [address] | | | - LABORATORY | | [...] + | [facility] | [address] | [place] | [phone] | | [facility] | | [address] | | | - LABORATORY | | [address] | [place] | [phone] | | [facility] | | [address] | | | - LABORATORY | | [...] | MEDICAL | | | | ZARIA Condon on 10/03/2016 at | | CENTER - [...] eGFR, | 31 (L)Comment: | >=60 | [facility] | | | non- | GLOMERULAR FILTRATION | mL/min/1.73m2 | [facility] | | | [place] | RATE,ESTIMATED | | MEDICAL | | | | mL/min/1.37e0Dglm than | | CENTER - | | [...] 4.2 | 3.2 - 5.0 g/dL | [facility] [...] [address] | [place] | [phone] | | [facility] | | [address] | | | - LABORATORY | | [...] [address] | [place] | [phone] | | [facility] | | [address] | | | - LABORATORY | | [...] | | | | Blood Sugar, Starting [facility] 10/03/16 | | PM PDT | | [...] | | | (after last modification) on [facility] | | | | | | | [...] | | | | | NPO, Daytime 8242-8904 Use NIGHT | | | | | | | DOSE for doses scheduled: | | | | | | | HS, 3AM, Nighttime 0998-3367, | | | | | | + [...] | | | MEALS, First dose on [facility] 10/03/16 | | | | | | [...] | | | | | TITRATED, Starting [facility] 10/03/16 at | | | | | [...] PDT | | | | | ONCE, [facility] 10/03/16 at 0405, For 1 | | [...] PM PDT | | | | | [facility] 10/03/16 at 0510 | | | | [...]
--- OUTSIDE RECORDS SUMMARY | ~2020-04-12 | XMS | Encounter Summary ---
Demographics + + + | Address | [address] | | | [place] [address] | + + + | Home Phone [...] + + + | Author | [facility] | | | and Ryana | + + + | Organization | [facility] | | | [...] Team Providers + +------+ + | Care Internet Database Specialist Name | Role | Phone | + +------+ + PCP | Unavailable | + +------+ + Encounter Details +--------+ + + + + | Date | Type | Department | Care Team | Description | +--------+ + + + + | 08/23/ | Hospital | [facility] | Shivam Bustos MD | | | 2003 | Encounter | [address] | [address] | | | | | [place], [place] | [facility]ILY [facility]INE | | | | | [address] | [place] [address] | | | | | [phone] | | | +--------+ + + + [...]
--- OUTSIDE RECORDS SUMMARY | ~2020-04-12 | XMS | Encounter Summary ---
Demographics + + + | Address | [address] | | | [place] [address] | + + + | Home Phone [...] Phone | + + +---------+ + | lBossom Kwon | ECON | Unknown | | + + +---------+ + Care Team Providers + +------+ + | Care Kai Whakaruruhau Name | Role | Phone | + +------+ + PCP | Unavailable | + +------+ + Encounter Details +--------+ + + + + | Date | Type | Department | Care Team | Description | +--------+ + + + + | 04/21/ | Hospital | [facility] | Abhi Berger | | | 1999 - | Encounter | [place] [address] [address] | MD [address] | | | | | [place], [place] | [place], [place] | | | 04/22/ | | [address] | [address] | | | 1999 | | [phone] | | | +--------+ + + + [...]
--- OUTSIDE RECORDS SUMMARY | ~2020-04-12 | XMS | Encounter Summary ---
Demographics + + + | Address | [address] | | | [place] [address] | + + + | Home Phone [...] Author + + + | Author | [facility] | | | and Ryana | + + + | Organization | [facility] | | [...] Team Providers + +------+ + | Care Mattress And Foundation Sewer Name | Role | Phone | + +------+ + PCP | Unavailable | + +------+ + Encounter Details +--------+ + + + + | Date | Type | Department | Care Team | Description | +--------+ + + + + | 05/01/ | [facility] | ROGELIO TALAMANTES | Abhi Berger | | | 2003 | Encounter | [facility] [address] | MD [address] | | | | | [address] | [place], [place] | | | | | [place] [address] | [address] | | | | | [phone] | | | +--------+ + + + [...]
--- OUTSIDE RECORDS SUMMARY | ~2020-04-12 | XMS | Clinical Summary ---
Demographics + + + | Address | [address] | | | [place] [address] | + + + | Home Phone [...] Author + + + | Author | [facility] | | | and Ryana | + + + | Organization | [facility] | | | and [...] Team Providers + +------+ + | Care Barrel Assembler Name | Role | Phone | [...] J?MRN: | | | | | | [id number] | | | [id number] | | | riteri | | | [...] | | | St. | | | [place] | | | y | | | [...] | | | St. | | | [place] | | | y | | | [...] | | | St. | | | [place] | | | y | | | [...] | | | St. | | | [place] | | | y | | | [...] | | | St. | | | [place] | | | y | | | [...] | | | ags | | | [place] | | | ED | | | Dispar | | | ity | | | Measur | | | e - | | | [place] | | | has | | | [...] | | | s. | | | [place] | | | | | | Health [...] | | | By: | | | [place] | | | | | | Health [...] | | | St. | | | [place] | | | y | | | [...] | | | St. | | | [place] | | | y H. | | [...] | | | St. | | | [place] | | | y H. | | [...] | | | St. | | | [place] | | | y H. 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 | | | [place] | | | y H. | | [...] | | | St. | | | [place] | | | y H. | | [...] | | | St. | | | [place] | | | y H. | | [...] | | | St. | | | [place] | | | y H. | | [...] | | | St. | | | [place] | | | y H. | | | [place] | | | [place] | | | Emerge | | | ncy | | | | | | Proced | | | ure | | | and | | | treatm | | | ent | | | not | | | peetr | | | d out | | | due to | | | | | | patien | | | t | | | leavin | | | Nov | | | 15, | | | 2019 | | | [facility] | | | [facility] | | | [place] | | | y H. | | [...] | | | St. | | | [place] | | | y H. | | [...] | | | [place] | | | Back Wedger | | | al | | | [...] | | | MD | | | Back Wedger | | | al | | | [...] | | | Absolute | performed at [facility];[address] | K/[address]L | LABORATORY | | | | [address] | | | | | | [address] | | | | + + + + + + + + | Specimen | + + | Blood | + + + + + + + | Performing | Address | City/State/Zipcode | Phone Number | | Organization | | | | + + + + + | [facility] | [address] | [place] [address] | [phone] | + + + + + C-Reactive Protein (03/02/2020 10:10 PM PDT) + + + + + + | Component | Value | Ref Range | Performed | Pathologist | | | | | At | Signature | + + + + + + | CRP | 4.0 (H)Comment: Testing | <0.5 mg/dL | KR | | | | performed at [facility];[address] | | LABORATORY | | | | [address];[place], [place] | | | | | | [address] | | | | + + + + + + + + | Specimen | + + | Blood | + + + + + + + | Performing | Address | City/State/Zipcode | Phone Number | | Organization | | | | + + + + + | [facility] | [address] | [place] [address] | [phone] | + + + + + Comprehensive [...] | | | | | performed at [facility];[address] | | | | | | [facility];[place], [place] | | | | | | [address] | | | | + + + + + + + + | Specimen | + + | Blood | + + + + + + + | Performing | Address | City/State/Zipcode | Phone Number | | Organization | | | | + + + + + | [facility] | [address] | [place] [address] | [phone] | + + + + + from [...] | [employer] | [employer] | [id number] | 01/22/20 | [phone] | | Medica | | MEDICAID HMO | HEALTH | | 16-Pre | 1 | | id | | | MDCD | | sent | | | | | | [place] | | | | | | + +--------+ +--------+ +---------+--------+ | [employer] | [employer] | [id number] | 05/17/ | [phone] | | Medica | | MEDICAID HMO [...] lisa | | | 9 (Home) | [address] | + +--------+ +--------+ + + | Joni Kwon | Person | Self | [birth year] | [address] | | [place] | al/Fam | | 1981 | [phone] | [address] [place] | | | lisa | | | 9 (Home) | [address] | + +--------+ +--------+ + + | Joni Kwon | Mental | Self | [birth year] | | [address] | | [place] | | | 1980 | [phone] | [address] [place] | | | Health | | | 9 ([place]) | [address] | + +--------+ +--------+ + + Advance Directives + + + + + | Type | Date Recorded | Patient | Explanation | | | | Floorworker Lasting | | + + + + + | Power of | | | | | Dental Appliance Mechanic | | | | + + + [...]
--- OUTSIDE RECORDS SUMMARY | ~2020-04-12 | XMS | Encounter Summary ---
Demographics + + + | Address | [address] | | | [place] [address] | + + + | Home Phone [...] Team Providers + +------+ + | Care Associate Professor Of Management Name | Role | Phone | + [...] + + | 09/23/ | Emergency | [facility] ROJ[facility] CLE[facility]E | Castro Adi | Hyperglycemia | | 2017 - | | [facility] | Alexander Craig MD | (Primary Dx); | | | | CENTER [address] | [address] | Genital edema, male | | 09/24/ | | [place], [place] | [place], [place] | | | 2016 | | [address] | [id number] | | | | | [phone] | | | +--------+ + + + [...] | | 0 | | | | TH-Jreqrqbxeazpi-Jfk | mouth Daily as | | | [...] might be d ifferent from the original. [facility] Joni Kwon Emergency Department Encounter Note [address] [place] [address] PCP:DENIS Paul [phone] eMERGENCY dEPARTMENT eNCOUnter CHIEF COMPLAINT Chief Complaint Patient presents with Back Pain Back Swelling Leg Swelling TRIAGE ED Triage Notes Balwinder Ahn RN 09/23/2016 22:17 Low back pain and swelling, states legs, feet and genitals are also swollen. Patient discha rged from [facility] yesterday after being admitted for DKA. States he started taking levam ir recently and every time he take this insulin then his legs and feet swell. Original note by Balwinder Ahn RN at 09/23/2016 22:15 Balwinder Ahn RN 09/23/2016 22:15 Low back pain and swelling, states legs, feet and genitals are also swollen. Patient discha rged from [facility] yesterday after being admitted for DKA Addendum to note by Balwinder Ahn RN at 09/23/2016 22:17 HPI Joni Kwon is a 35 y.o. male who presents with significant lower back edema and genital edema. Patient states he was in the hospital 2 days ago at [facility] for diabe tic ketoacidosis. He states they [...] Take 100 mg by mouth every morning. MZ-NYTYUUWTLMRFQ-RKBBJLBDWWLVN 10-5-325 MG CAPS Take 1 capsule by [...] deficits noted, no facial assymetry noted. 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 He does not appear to be in acute distress at this point. Follow-up Information Follow up with DENIS Paul In 2 days. Specialty: Family Nurse Practitioner Contact information: [address], [address] [place] [address] New Prescriptions HYDROCODONE-ACETAMINOPHEN (NORCO) 5-325 MG PER TABLET Take 1-2 tablets by mouth every 6 hours as needed for Pain. FINAL IMPRESSION 1. Hyperglycemia 2. Genital edema, male Portions of this chart may have been created with [employer] voice recognition software. Occasi onal wrong-word or [...] genitals are also swollen. Patient discharged from [facility] yester day after being admitted for DKA. [...] + | [facility] | [address] | [place] | [phone] | | [facility] | | [address] | | | - LABORATORY | | [...] + | [facility] | [address] | [place] | [phone] | | [facility] | | [address] | | | - LABORATORY | | [...] + | [facility] | [address] | [place] | [phone] | | [facility] | | [address] | | | - LABORATORY | | [...] [address] | [place] | [phone] | | [facility] | | [address] | | | - LABORATORY | | [...] | 1.01 | 0.60 - 1.30 | [facility] | | | | | mg/dL | [facility] | | | | | | MEDICAL | | | | | | CENTER - | | | | | | LABORATORY | | + + + + + + | eGFR, | >60Comment: GLOMERULAR | >=60 | [facility] | | | non- | FILTRATION | mL/min/1.73m2 | [facility] | | | [place] | RATE,ESTIMATED | | MEDICAL | | | | mL/min/1.07j7Bndw than | | CENTER - | | [...] [address] | [place] | [phone] | | [facility] | | [address] | | | - LABORATORY | | [...] [address] | [place] | [phone] | | [facility] | | [address] | | | - LABORATORY | | [...]
--- OUTSIDE RECORDS SUMMARY | ~2020-04-12 | XMS | Encounter Summary ---
Demographics + + + | Address | [address] | | | [place] [address] | + + + | Home Phone [...] Team Providers + +------+ + | Care Sheeter Helper Name | Role | Phone | + +------+ + PCP | Unavailable | + +------+ + Encounter Details +--------+ + + + + | Date | Type | Department | Care Team | Description | +--------+ + + + + | 04/07/ | Hospital | [facility] | Ami Young | | | 2008 | Encounter | CONVERSION | A, ATTIC FANS MECHANIC [address] | | | | | DEPART[address] | [address] [place], [place] | | | | | [address] | [address] | | | | | [place], [place] | [phone] | | | | | [address] | | | | | | [phone] | | | +--------+ + + + [...]
--- OUTSIDE RECORDS SUMMARY | ~2020-04-12 | XMS | Encounter Summary ---
Demographics + + + | Address | [address] | | | [place] [address] | + + + | Home Phone | | + + + | Preferred Language | Unknown | + + + | Marital Status | Single | + + + | Scientology Affiliation | [id number] | + + + [...] Team Providers + +------+ + | Care Sheet Combining Operator Name | Role | Phone | [...] [address] | | | | | [address] [place], | | | | | [address] [place], [place] | [place] [address] | | | | | [address] | [phone] | | | | | [phone] | | | +--------+ + + + [...]
--- OUTSIDE RECORDS SUMMARY | ~2020-04-12 | XMS | Encounter Summary ---
Demographics + + + | Address | [address] | | | [place] [address] | + + + | Home Phone [...] Team Providers + +------+ + | Care Interventionist Name | Role | Phone | + +------+ + PCP | Unavailable | + +------+ + Encounter Details +--------+ + + + + | Date | Type | Department | Care Team | Description | +--------+ + + + + | 06/19/ | [facility] | ROGELIO TALAMANTES | Abhi Berger | | | 2003 | Encounter | FAMILY MEDICINE 120 | [address] | | | | | [place] | [place], [place] | | | | | [place] [address] | [address] | | | | | [phone] | | | +--------+ + + + [...]
--- OUTSIDE RECORDS SUMMARY | ~2020-04-12 | XMS | Encounter Summary ---
Demographics + + + | Address | [address] | | | [place] [address] | + + + | Home Phone [...] Team Providers + +------+ + | Care Furnace Filler Name | Role | Phone | + +------+ + PCP | Unavailable | + +------+ + Encounter Details +--------+ + + + + | Date | Type | Department | Care Team | Description | +--------+ + + + + | 04/21/ | Hospital | [facility] | Abhi Berger | | | 1999 - | Encounter | [place] [address] [address] | [address] | | | | | [place], [place] | [place], [place] | | | 04/22/ | | [address] | [address] | | | 1999 | | [phone] | | | +--------+ + + + [...]
--- OUTSIDE RECORDS SUMMARY | ~2020-04-12 | XMS | Encounter Summary ---
Demographics + + + | Address | [address] | | | [place] [address] | + + + | Home Phone [...] Team Providers + +------+ + | Care Money Order Clerk Name | Role | Phone | + +------+ + PCP | Unavailable | + +------+ + Encounter Details +--------+ + + + + | Date | Type | Department | Care Team | Description | +--------+ + + + + | 06/19/ | [facility] | ROGELIO TALAMANTES | Abhi Berger | | | 2003 | Encounter | FAMILY MEDICINE 120 | MD [address] | | | | | [address] [place] | [place], [place] | | | | | [place] [address] | [address] | | | | | [phone] | | | +--------+ + + + [...]
--- OUTSIDE RECORDS SUMMARY | ~2020-04-12 | XMS | Encounter Summary ---
Demographics + + + | Address | [address] | | | [place] [address] | + + + | Home Phone [...] Team Providers + +------+ + | Care Weight Clerk Name | Role | Phone | [...] | | | | | ([facility]) | | | | | | [...] | | | | | ([facility]) | | | +--------+--------+ + + [...] | ketoacidosis without | | | | [place], | [place], [place] | coma associated | | 06/21/ | | [place] [address] | [address] | with other specified | | 2015 | | [phone] | | diabetes mellitus | | | | | Kevin Gifford MD | ([facility]) (Primary Dx); | | | | | [address] | Diabetic | | | | | [place], [place] | ketoacidosis without | | | | | [address] | coma associated | | | | | | with type 1 diabetes | | | | | | mellitus ([facility]) | +--------+ + + + + [...] days. 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 VD-Xqdjyhjxntbur-Tzrgtweffxfpp 10-5-325 MG Caps Take 1 capsule by [...] of post-hospital care. Electronically signed by: Santino Blkae MD, 06/21/2016 17:44 [facility] documented in this enc ounter Medications [...] | | 0 | | | | LW-Lqdchszlhinge-Qxb | mouth Daily as | | | [...] of this encounter Progress Notes Ayala Han, [facility] - 06/20/2016 9:53 PM PSTFormatting of this note might be different fro m the original. PHARMACY SERVICES: ADMISSION MEDICATION REVIEW Joni Kwon is a 35 y.o. male admitted on 06/20/2016. Patient is not a reliable historian. Patient preferred pharmacies closed. 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 Location of Patient when reviewed: [x] ED [] Medical Floor Patient s prior to admit medication and over the counter (OTC) medications/herbal supplem ents list obtained from: [x] Verbal interview (patient is able to recall drug name, strength, frequency, etc.) [] Patient/family member provided a complete current medication list or bottles [] MAR from [facility] facility: [] Doctor's office: [] Pharmacy list names: [] [employer] insurance reported information [] Care Everywhere [] Other sources: Vaccines up to date? Yes No Unsure Influenza [] [x] [] Pneumococcal [] [x] [] Tdap [] [x] [] Shingles [] [x] [] Noted medications discrepancies or medication-related issues: Dosage change: Medication: Prior to Admission Sig: Patient taking differently SOLVENT PROCESS EXTRACTOR OPERATOR as: Insulin Glargine 100 u/ml 15 units nightly 9 units in the morning and 6 units in the evenin g Medication added: Medication: Prior to Admission Sig: LX-Cwogbnxdjuaiv-Tqwxpcmrdcjoc 10-5-325 mg 1 cap daily as needed for sinus congestion Medication review performed and electronically signed by Luis Araujo Darklight Inspector 06/20 21:44 Reviewed by Ayala Han RPH 06/20/2016 21:53 documented in this en counter H&P Notes Kevin Gifford MD - 06/20/2016 11:07 PM PSTFormatting of this note might be different fro m the original. [place] HOSPITALIST HISTORY & PHYSICAL Patient: Joni Kwon : 1980: Age: 35 y.o. MedRec: [id number] PCP: DENIS Paul Admission date: 06/20/2016 Hospital [...] meal time (not large amounts) was in [facility] for DKA got out Friday and this morning () felt groggy and took he thinks to elizabeth le Lantus and fell back to sleep then later woke up with above CC and had mom drive him to [facility] ER (his choice) found to be [...] Take 100 mg by mouth every morning. IU-RTDLARXJKLETS-EJZMXJVFSQAMR 10-5-325 MG CAPS Take 1 capsule by [...] mouth every morning. Taking Histori cristobal ProviderMD JM-Buzhpjfvcrosr-Uljtrjtnpaube 10-5-325 MG CAPS Take 1 capsule by [...] for input(s): IRON, TIBC, PCTSAT, FERRITIN, TSH, FCEKKFRE98, FOLATE in the last 168 hours. Inflammatory [...] ABG No results for input(s): PHART, PO2ART, ORA7ECD, SML7GZY, BEART, O0KFJIGA in the last 168 h ours. No results for input(s): SPECSOURCE, PHPOCB, PCO2, PO2, HCO3, TCO2, BEART, XANY7GXC in the last 168 hours. Drug of [...] summarized old records scant here nothing from [facility] yet but RN was to r equest ASSESSMENT: (meyprob vs meyprobap) Principal Problem: Diabetic ketoacidosis without coma associated with type 1 diabetes sebastian [facility] Problems Diagnosis Diabetic ketoacidosis without coma associated with type 1 diabetes mellitus Just got out of [facility] for DKA 2 days ago Friday [...] (dot meyaddendum tdnorefesh nownorefresh) (dot meytime meycritical) [facility] Documentation I expect this patient will be hospitalized for greater than 2-midnights and expect the post -hospital plan to be discharge to home or to an adult foster home. Electronically signed by: Kevin Gifford MD 06/20/2016 23:07 [facility] (meyaddendum tdnorefesh nownorefresh) Portions of this chart may have been created with [employer] voice recognition software. Occasi onal wrong-word or [...] sugar. He was just discharged out of [facility] where he was r eportedly for [...] [facility] and also participated in this conversation. 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 Joni states she has been with [...] DENIS Diallo and he states he uses [facility] or [facility] pharmacies. His mom will [...] here), and chest pain. Was d/c from [facility] on Friday with DKA. documented in [...] [address] | [place] | [phone] | | [facility] | | [address] | | | - LABORATORY | | [...] | 0.65 | 0.60 - 1.30 | [facility] | | | | | mg/dL | [facility] | | | | | | MEDICAL | | | | | | CENTER - | | | | | | LABORATORY | | + + + + + + | eGFR, | >60Comment: GLOMERULAR | >=60 | [facility] | | | non- | FILTRATION | mL/min/1.73m2 | [facility] | | | [place] | RATE,ESTIMATED | | MEDICAL | | | | mL/min/1.19b4Ymrp than | | CENTER - | | [...] + | [facility] | [address] | [place] | [phone] | | [facility] | | [address] | | | - LABORATORY | | [...] ST. | [address] | [place] | [phone] | | [facility] | | [address] | | | - LABORATORY | | [...] | | | | | mg/dL | [facility] | | | | | | MEDICAL | | | | | | CENTER - | | | | | | LABORATORY | | + + + + + + | eGFR, | >60Comment: GLOMERULAR | >=60 | [facility] | | | non- | FILTRATION | mL/min/1.73m2 | [facility] | | | [place] | RATE,ESTIMATED | | MEDICAL | | | | mL/min/1.97f2Mlys than | | CENTER - | | [...] | | | | | mg/dL | [facility] | | | | [...] [address] | [place] | [phone] | | [facility] | | [address] | | | - LABORATORY | | [...] + | [facility] | [address] | [place] | [phone] | | [facility] | | [address] | | | - LABORATORY | | [...] ST. | [address] | [place], [place] | [phone] | | [facility] | | [address] | | | - LABORATORY | | [...] [address] | [place] | [phone] | | [facility] | | [address] | | | - LABORATORY | | [...] 14 | 7 - 18 mg/dL | [facility] | | | | | | [facility] | | | | | | MEDICAL | | | | | | CENTER - | | | | | | LABORATORY | | + + + + + + | Creatinine | 0.74 | 0.60 - 1.30 | [facility] | | | | | mg/dL | [facility] | | | | | | MEDICAL | | | | | | CENTER - | | | | | | LABORATORY | | + + + + + + | eGFR, | >60Comment: GLOMERULAR | >=60 | [facility] | | | non- | FILTRATION | mL/min/1.73m2 | [facility] | | | [place] | RATE,ESTIMATED | | MEDICAL | | | | mL/min/1.52t5Oqha than | | CENTER - | | [...] + | [facility] | [address] | [place] | [phone] | | [facility] | | [address] | | | - LABORATORY | | [...] + | [facility] | [address] | [place] | [phone] | | [facility] | | [address] | | | - LABORATORY | | [...] [address] | [place] | [phone] | | [facility] | | [address] | | | - LABORATORY | | [address] | [place] | [phone] | | [facility] | | [address] | | | - LABORATORY | | [...] [address] | [place] | [phone] | | [facility] | | [address] | | | - [...] 12 | 7 - 18 mg/dL | [facility] | | | | | | [facility] | | | | | | MEDICAL | | | | | | CENTER - | | | | | | LABORATORY | | + + + + + + | Creatinine | 0.64 | 0.60 - 1.30 | [facility] | | | | | mg/dL | [facility] | | | | | | MEDICAL | | | | | | CENTER - | | | | | | LABORATORY | | + + + + + + | eGFR, | >60Comment: GLOMERULAR | >=60 | [facility] | | | non- | FILTRATION | mL/min/1.73m2 | [facility] | | | [place] | RATE,ESTIMATED | | MEDICAL | | | | mL/min/1.55a3Ehie than | | CENTER - | | [...] [address] | [place] | [phone] | | [facility] | | [address] | | | - LABORATORY | | [...] - 1.030 | [facility] | | | [place], | | | [facility] | | [...] [address] | [place] | [phone] | | [facility] | | [address] | | | - LABORATORY | | [...] | | Screen, | | | [facility] | | | Urine | | [...] [address] | [place] | [phone] | | [facility] | | [address] | | | - LABORATORY | | [...] [address] | [place] | [phone] | | [facility] | | [address] | | | - LABORATORY | | [...] | | | | | | [employer] | | | | | [...] [address] | [place] | [phone] | | [facility] | | [address] | | | - LABORATORY | | [...] [address] | [place] | [phone] | | [facility] | | [address] | | | - LABORATORY | | [...] + | [facility] | [address] | [place] | [phone] | | [facility] | | [address] | | | - LABORATORY | | [...] | | | | mmol/L | [facility] | [...] mL/min/1.73m2 | [facility] | | | [place] | RATE,ESTIMATED | | MEDICAL | | | | mL/min/1.94f2Bkdv than | | CENTER - | | [...] + | [facility] | [address] | [place], [place] | [phone] | | [facility] | | [address] | | | - LABORATORY | | [...] [address] | [place] | [phone] | | [facility] | | [address] | | | - LABORATORY | | [...] + | [facility] | [address] | [place] | [phone] | | [facility] | | [address] | | | - LABORATORY | | [...] | | | | HAWA RUBIN MD ([id number]) | | | | | | on [...] + | [facility] | [address] | [place] | [phone] | | [facility] | | [address] | | | - LABORATORY | | [...] + | [facility] | [address] | [place] | [phone] | | [facility] | | [address] | | | - LABORATORY | | [...] ST. | [address] | [place], [place] | [phone] | | [facility] | | [address] | | | - LABORATORY | | [...] | 1.09 | 0.60 - 1.30 | [facility] | | | | | mg/dL | [facility] | | | | | | MEDICAL | | | | | | CENTER - | | | | | | LABORATORY | | + + + + + + | eGFR, | >60Comment: GLOMERULAR | >=60 | [facility] | | | non- | FILTRATION | mL/min/1.73m2 | [facility] | | | [place] | RATE,ESTIMATED | | MEDICAL | | | | mL/min/1.06a4Utle than | | CENTER - | | [...] + | [facility] | [address] | [place] | [phone] | | [facility] | | [address] | | | - LABORATORY | | [...] JOSEPH | | | | | | [facility] | | | [...] [address] | [place] | [phone] | | [facility] | | [address] | | | - LABORATORY | | [...] + | [facility] | [address] | [place] | [phone] | | [facility] | | [address] | | | - LABORATORY | | [address] | [place] | [phone] | | [facility] | | [address] | | | - LABORATORY | | [...] + | [facility] | [address] | [place] | [phone] | | [facility] | | [address] | | | - LABORATORY | | [...] [address] | [place] | [phone] | | [facility] | | [address] | | | - LABORATORY | | [address] | [place] | [phone] | | [facility] | | [address] | | | - LABORATORY | | [...] | | | | Pharmacist Lupe Tilley, [facility] | | | | | | [...] | | | | | NPO, Daytime 5028-9303 Use NIGHT | | | | | | | DOSE for doses scheduled: | | | | | | | HS, 3AM, Nighttime 5548-7915, | | | | | | + [...] | | | | | | Starting [facility] 06/20/16 at 1940 | | | [...] PST | | | | | ONCE, [facility] 06/20/16 at 1940, For 1 | [...]
--- OUTSIDE RECORDS SUMMARY | ~2020-04-12 | XMS | Encounter Summary ---
Demographics + + + | Address | [address] | | | [place] [address] | + + + | Home Phone | | + + + | Preferred Language | Unknown | + + + | Marital Status | Single | + + + | Gnosticist Affiliation | 1001 | + + + | Race | White | + + + | Ethnic Group | Not or | + + + Author + + + | Author | [facility] | | | and Ryana | + + + | Organization | [facility] | | | [...] Providers + +------+ + | Care Account Manager Employee Benefits Name | Role | Phone | + +------+ + PCP | Unavailable | + +------+ + Encounter Details +--------+ + + + + | Date | Type | Department | Care Team | Description | +--------+ + + + + | 03/05/ | [facility] | ROGELIO TALAMANTES | Abhi Berger | | | 2003 | Encounter | FAMILY MEDICINE 120 | [address] | | | | | [address] | [place], [place] | | | | | [place] [address] | [address] | | | | | [phone] | | | +--------+ + + + [...]
--- OUTSIDE RECORDS SUMMARY | ~2020-04-12 | XMS | Encounter Summary ---
Demographics + + + | Address | [address] | | | [place] [address] | + + + | Home Phone [...] Team Providers + +------+ + | Care Certified Athletic Trainer Name | Role | Phone | [...] [facility] | Iglesia Mccall MD [address] | ketoacidosis without | | | | CARE FLOOR [address] | coma associated | | 02/07/ | | [address] | [place] [address] | with type 2 diabetes | | 2016 | | [place], [place] | [phone] | mellitus (HCC) | | | | [address] | | | | | | [phone] | | | +--------+ + + + [...] Date of Service: 02/08/16 0936 Status: Signed Fisher Diver Net: Lanre Pan MD (Physician) Related Notes: Original Note by Lanre Pan MD (Physician) filed at 02/08/16 1015 [facility]: Hospitalist Discharge Summary Date of [...] episodes of DKA, and recently moved to [place], [place]. The patient typically takes Lantus pens, though according to the patie nt he has not been storing them appropriately and may have left them out of the fridge for a prolonged period, and the patient indicates that he may have missed a few doses. [facility] to his admission. He was initially seen at [place] emergency department and diagnosed with diabetic ketoaci [...] to schedule appointment with the PCP in [place]. DISCHARGE DIAGNOSES 1. Diabetic ketoacidosis in a type 1 diabetic. 2. History of reported schizophrenia, stable. 3. History of tobaccoism. Patient was counseled on tobacco cessation. 4. Electrolyte imbalance, secondary to diabetic ketoacidosis treatment. Past Medical History Diagnosis Date Schizophrenia (HCC) 02/06/2016 Attention-deficit hyperactivity disorder, predominantly hyperactive type 02/06/2016 Depression 02/06/2016 Leukocytosis (leucocytosis) 02/06/2016 Diabetes mellitus type I ([facility]) History reviewed. No pertinent past surgical [...] on file. Follow up: Margarita Gonzales MD [address] [place] [address] follow up for diabetes Medication List CONTINUE [...] from the original. Nurse Progress Note by oRsario Ocampo RN at 02/08/16 1255 Author: Rosario Ocampo RN Service: (none) Author Type: Registered Nurse Filed: 02/08/16 1255 Date of Service: 02/08/16 1255 Status: Signed Fisher Diver Net: Rosario Ocampo RN (Registered Nurse) Discharge instructions given, all questions answered, patient/career development coordinator expresses understa nding. Prescriptions given. IV removed. VSS. Patient left ambulatory to a private residence with family onver danie Transaction, Provider Unknown - 02/08/2016 9:52 AM PDT Case Management by Rhea Kaiser RN at 02/08/16 0952 Author: Rhea Kaiser RN Service: (none) Author Type: Registered Nurse Filed: 02/08/16 1000 Date of Service: 02/08/16 0952 Status: Addendum Fisher Diver Net: Rhea Kaiser RN (Registered Nurse) Related Notes: Original Note by Rhea Kaiser RN (Registered Nurse) filed at 02/08/16 0 955 Discharge Planning: contacted [facility] of , staff noted Shilpi scott is assigned to his case, left message with call back number for counselor to contact . Discharge Planning: spoke to CM Shilpi Mirza return call, advised [facility] office will contac t patient this afternoon [...] Date of Service: 08/18/16 0640 Status: Signed Fisher Diver Net: Gayle Gomez RN (Registered Nurse) No changes [...] 02/07/161918 Date of Service: 02/07/161819 Status: Addendum Fisher Diver Net: Aracelis Strong RN (Registered Nurse) Related Notes: [...] 298. 8 units insulin administered. Currently amb [facility]. Report given to ERIKA Araujo. Aracelis Strong RN onver danie Transaction, Provider Unknown - 02/07/2016 3:27 PM PDT Case Management by Rhea Kaiser RN at 02/07/16 1527 Author: Rhea Kaiser RN Service: (none) Author Type: Registered Nurse Filed: 02/07/16 3568 Date of Service: 02/07/16 1527 Status: Addendum Fisher Diver Net: Rhea Kaiser RN (Registered Nurse) Related Notes: [...] (spoke with patient and with mom Blossom [phone], patient resides with mom, sleeps on the couch, patient and mom would like patient to live in assisted living ) Mental Status Oriented Power of Head Automatic Sawyer No Anticipated Discharge Plan Post Acute Care [...] Home (CM will check for [facility] in [facility]) Met with: CM spoke with patient and patient mother (with pt permission) to discuss discharg e planning, Pt is a 35 y.o., male, whom arrived via life flight to [facility] from [facility] due to DKA. Patient with dx of DM type I, schizophrenia. Patient resided in [facility] for 5 years. Patient and patient mother Blossom [phone] would like leonardo ent to live independent of parent in [facility] or assisted living in [facility]. CM to contact Brody with [employer] in [place] for information concerning patient. Patient states he [...] care provider on file. Patient's insurance: Medicaid [facility] Coverage concerns: no Medication coverage/concerns: non compliant with DM I CBG and insulin use Community resources utilized / needed: patient is requesting longterm placement and help to get his life back on track Assistance in transportation: patient's mother will transport Blossom [phone] Identification of any specific education / training: [...] Date of Service: 02/07/16 1001 Status: Signed Fisher Diver Net: Lanre Pan MD (Physician) [facility]: Hospitalist Progress Note Hospital Day: LOS: 1 day Post-Op Day: * No surgery found * SUBJECTIVE Patient Summary: admission H and P Dr. Kan:"The patient is a 35 y.o. male wi th significant past medical history of schizophrenia, patient states last admission to [facility] was 2 years ago, ADHD, depression, type I diabetes mellitus diagnos ed at age 4 according to the patient and about 3 episodes of admissions for DKA since he mov ed to [place]. Per Dr. Dunaway, [facility] emergency room the patient and had a couple of admissions of this year for DKA. Patient had been kicked out of the [place] had been smoking marijuan a which the patient admits. Had presented to [facility] emergency room today after a friend [...] elayed to me by Dr. Dunaway of [facility] ER, had about a week prior to admission and the patient has been laying in the [place] for the last 4 days during nothing she medications. Per mother the patient also had lost 100 pounds since october of this year. Patient was seen at the [facility] Emergency Department, was noted to be tachycardic and tachypneic I was told initially his heart rate was in the 120s, respiration was in the mid 20s, patient was refusing to answer questions or could not answer questions according to [facility] Department physician, labs showed he was in DKA, he was given 2 L of IV fluid bolus w sandra there, subsequently hospitalist and ICU attending was called at [facility] for a transfer of patient, Dr. Vega recommended giving the patient bicarbonate and potassium which was done , the patient was also in the process of being given 2 more liters of normal saline and was transferred at acute care floor in [facility]. By the time admitting hospitalist [...] will transition off insulin drip over [facility] htime., Appreciate Dr. Gonzales input, Levemir [...] 02/07/1641 Date of Service: 02/07/16939 Status: Signed Fisher Diver Net: Darcy Niño RD (Registered Dietitian) 02/07/16 0931 [...] Estimated Energy Needs Total Energy Estimated Needs 8038-2777 kcal/day Method for Estimating Needs 25-30 kcal/kg [...] Date of Service: 02/07/16 06 Status: Signed Fisher Diver Net: Gayle Gomez RN (Registered Nurse) No changes [...] 163 Date of Service: 02/06/161621 Status: Signed Fisher Diver Net: Jace Yanez RN (Registered Nurse) Pts mother, Blossom, came by hospital to see son and will head back to [place]. She stat es that pts schizophrenia started at age 19 or 20, and that pt often thinks he is other peop le (ie, [facility]), and often mixes fiction with reality. [facility] [place] [facility] on [facility] the last 5 years, and has been in [place] since September. Karyn muñiz has been working [...] nted in this encounter H&P Notes Cody aKn MD - 02/06/2016 8:49 AM PDTFormatting of this note might be diff erent from the original. H&P by Cody Kan MD at 02/06/16 0849 Author: Cody Kan MD Service: Hospitalist Author Type: Physician Filed: 02/20/16 1417 Date of Service: 02/06/16 0849 Status: Addendum Fisher Diver Net: Cody Kan MD (Physician) Related Notes: Original Note by Cdoy Kan MD (Physician) filed at 02/07/16 1611 [facility]: Hospitalist Admission History & Physical Date of Admission: 02/06/2016 Requesting Physician: Gume Finn, Emergency Department [facility] Reason for Admission: DKA History Obtained From: patient, chart review, Quality of history: fair CHIEF COMPLAINT: DKA HISTORY OF PRESENT ILLNESS The patient is a 35 y.o. male with significant past medical history of schizophrenia, leonardo ent states last admission to [facility] was 2 years ago, ADHD, depression, type I diabetes mellitus diagnosed at age 4 according to the patient and about 3 episodes o f admissions for DKA since he moved to [place]. Per Dr. Dunaway, [facility] emergency room the patie nt and had a couple of admissions this year for DKA. Patient had been kicked out of the [place] as he had been smoking marijuana which the patient admits. Had presented to [facility] emergency room today after a friend [...] relayed to me by Dr. Dunaway of [facility] ER, had about a week prior to admission and the leonardo ent has been laying in the couch for the last 4 days doing nothing. Per mother the patient a lso had lost 100 pounds since October of this year. Patient was seen at the [facility] Emergency Department, was noted to be [...] hospitalist and ICU attending was called at [facility] for a transfer of patient, Dr. Vega recommended giving the patient bicarbonate and pota ssium which was done, the patient was also in the process of being given 2 more liters of no rmal saline and was transferred to acute care floor in [facility]. By the time admitting hospitalist [...] sensation and reflexes throughout DATA Labs from [facility] CBC: WBCs 12.6, hemoglobin 15.9, hematocrit 45.9, [...] no acute ST-T wave changes. CXR from [facility] no pneumonia or other acute process [...] his last admission and discharge summary from [facility] to be faxed here. heparin for deep vein thrombosis prophylaxis. L eukocytosis is probably reactive and at this point I will hold off on giving antibiotics. Schizophrenia ([facility]) (02/06/2016) Assessment: not in exacerbation Plan: should have his medications once eating and I have asked for wait staff to reconcile his medications from his pharmacy in [place] Attention-deficit hyperactivity disorder, predominantly hyperactive type Assessment:not in exacerbation Plan: will should have his medications he should not once eating and I have asked for wait staff to reconcile his medications from his pharmacy in [place] Depression Assessment: not in exacerbation Plan: should have his medications restarted once eating and I have asked for wait staff to reconcile his medications from his pharmacy [...] care with other providers well as Computerized Non Food Receiving Clerk. Other recom mendations for management of this [...] Inpatient to Acute Care Floor Dictation software, [employer], used which may contain error for similar [...] 0735 Date of Service: 02/08/16623 Status: Signed Fisher Diver Net: Margarita Gonzales MD (Physician) [facility]: Endocrinology Follow Up Consult Note [...] running in the high 200s Seen by art educator yesterday. Per nursing noted, some of the below BG are postprandial as pt not cooperating with [facility] nursing staff re:planned mealtimes More awake [...] Per outside records - pt presented to [facility] after several days of "lying on the cou ch." Pt has recently been discharged from his longterm 2/2 marijuana use. Grandmother has rece ntly . Family members thought pt was simply suffering from depression over the pa st few days. Presented to [facility], found to have pH of 6.01 on ABG and CO2 of 5. Transferred to [facility], pt has now received at least [...] negative. Past Medical History Diagnosis Date Schizophrenia ([facility]) 02/06/2016 Attention-deficit hyperactivity disorder, predominantly hyperactive type 02/06/2016 Depression 02/06/2016 Leukocytosis (leucocytosis) 02/06/2016 Diabetes mellitus type I ([facility]) History reviewed. No pertinent past surgical [...] No Drug Use: Yes Special: Marijuana Comment: 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 Sexual [...] Orozco RN, CDE Service: (none) Author Type: Corn Husker Machine Operator Filed: 02/07/16 636 Date of Service: 02/07/161718 Status: Signed Fisher Diver Net: Luís Orozco RN, CDE (Corn Husker Machine Operator) Consult Orders: 1. Inpatient consult to consumer educator [[id number]] ordered by Margarita Gonzales MD at 02/06 9350 Diabetes Education Met with Patient today. Reports [...] Patient reports he is currently living in [facility], and at times receives assistanc e from "[employer]" to help with placement/group home "They helped me get a hotel for [...] provided contact information for CDE located in [place]. Encouraged Patient to discuss Diabetes Education with [...] than 30 days. Patient was followed by Patch Washer earlier today. Current insulin orders as per Endocr inologist recomendations. Margarita Mcduffie MD - 02/07/2016 6:29 AM PDT Consult* by Margarita Gonzales MD at 02/07/16628 Author: Margarita Gonzales MD Service: (none) Author Type: Physician Filed: 02/07/16 0725 Date of Service: 02/07/16628 Status: Signed Fisher Diver Net: Margarita Gonzales MD (Physician) [facility]: Endocrinology Follow Up Consult Note [...] Per outside records - pt presented to [facility] after several days of "lying on the cou ch." Pt has recently been discharged from his longterm 2/2 marijuana use. Grandmother has rece ntly . Family members thought pt was simply suffering from depression over the pa st few days. Presented to [facility], found to have pH of 6.01 on ABG and CO2 of 5. Transferred to [facility], pt has now received at least [...] No Drug Use: Yes Special: Marijuana Comment: 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 Sexual [...] dose corrective algorithm qAC and qHS recommend art educator Remainder of patients medical conditions to [...] Date of Service: 02/06/16 1014 Status: Signed Fisher Diver Net: Margarita Gonzales MD (Physician) [facility]: Endocrinology Initial Consult Note Date of Admission: 02/06/2016 Reason for Consultation: DKA Requesting Physician: Hospitalist History Obtained From: patient, chart review CHIEF COMPLAINT: High sugars HISTORY OF PRESENT ILLNESS The patient is 35 y.o. male with significant past medical history of T1DM with recurrent DK A, Schizophrenia, depression who presents with DKA. Per outside records - pt presented to [facility] after several days of "lying on the cou ch." Pt has recently been discharged from his longterm 2/2 marijuana use. Grandmother has rece ntly . Family members thought pt was simply suffering from depression over the pa st few days. Presented to [facility], found to have pH of 6.01 on ABG and CO2 of 5. Transferred to [facility], pt has now received at least [...] insulin regimen at the appropriate time. -recommend art educator Discussed directly with attending hospitalist today [...] | | | Fingerstick | performed at [facility];[address] | | LAB | | | | [address];[place] | | | | | | [address] | | | | + + + [...] | | | Fingerstick | performed at [facility];[address] | | LAB | | | | [address];[place] | | | | | | [address] | | | | + + + [...] EXTERNAL | | | | performed at [facility], [address] | K/uL | LAB | | | | [address], | | | | | | [place] [address] | | | | + + + + + + | Non- | 3.53 (L)Comment: Testing | 4.20 - 5.70 | EXTERNAL | | | Red Blood | performed at [facility], [address] | M/uL | LAB | | | Cells | [address], | | | | | Counted | [place] [address] | | | | + + + + + + | Hemoglobin | 11.5 (L)Comment: Testing | 13.2 - 17.0 | EXTERNAL | | | | performed at [facility], [address] | g/dL | LAB | | | | [address], | | | | | | [place] [address] | | | | + + + + + + | Hematocrit, | 32.3 (L)Comment: Testing | 39.0 - 50.0 % | EXTERNAL | | | POC | performed at [facility], [address] | | LAB | | | | [address], | | | | | | [place] [address] | | | | + + + + + + | MCV | 91.6Comment: Testing | 80.0 - 100.0 fl | EXTERNAL | | | | performed at [facility], [address] | | LAB | | | | [address], | | | | | | [place] [address] | | | | + + + + + + | MCH | 32.6Comment: Testing | 27.0 - 34.0 pg | EXTERNAL | | | | performed at [facility], [address] | | LAB | | | | [address], | | | | | | [place] [address] | | | | + + + + + + | MCHC | 35.6 (H)Comment: Testing | 32.0 - 35.5 | EXTERNAL | | | | performed at [facility], [address] | g/dL | LAB | | | | [address], | | | | | | [place] [address] | | | | + + + + + + | RDW-CV | 45.1Comment: Testing | 37 - 53 fl | EXTERNAL | | | | performed at [facility], [address] | | LAB | | | | [address], | | | | | | [place] [address] | | | | + + + + + + | Platelet | 218Comment: Testing | 150 - 400 K/uL | EXTERNAL | | | Count | performed at [facility], [address] | | LAB | | | Plasma | [address], | | | | | | [place] [address] | | | | + + + + + + | MPV | 7.6Comment: Testing | fl | EXTERNAL | | | | performed at [facility], [address] | | LAB | | | | [address], | | | | | | [place] [address] | | | | + + + [...] EXTERNAL | | | | performed at [facility], [address] | | LAB | | | | [address], | | | | | | [place] [address] | | | | + + + [...] [address], | | | | | | [place] [address] | | | | + + + [...] | | | | | [place] [address] | | | | + + + + + + | K | 3.2 (L)Comment: Testing | 3.5 - 4.9 | EXTERNAL | | | | performed at [facility], [address] | mmol/L | LAB | | | | [address], | | | | | | [place] [address] | | | | + + + + + + | Cl | 100Comment: Testing | 99 - 109 mmol/L | EXTERNAL | | | | performed at [facility], [address] | | LAB | | | | [address], | | | | | | [place] [address] | | | | + + + + + + | CO2 | 22 (L)Comment: Testing | 23 - 32 mmol/L | EXTERNAL | | | | performed at [facility], [address] | | LAB | | | | [address], | | | | | | [place] [address] | | | | + + + + + + | Anion Gap | 14Comment: Testing | 5 - 20 mmol/L | EXTERNAL | | | | performed at [facility], [address] | | LAB | | | | [address], | | | | | | [place] [address] | | | | + + + + + + | Glucose, | 282 (H)Comment: Testing | 65 - 99 mg/dL | EXTERNAL | | | Fasting | performed at [facility], [address] | | LAB | | | | [address], | | | | | | [place] [address] | | | | + + + + + + | BUN | 15Comment: Testing | 8 - 25 mg/dL | EXTERNAL | | | | performed at [facility], [address] | | LAB | | | [address], | | | | | | [place] [address] | | | | + + + + + + | Creatinine | 0.8Comment: Testing | 0.70 - 1.30 | EXTERNAL | | | | performed at [facility], [address] | mg/dL | LAB | | | | [address], | | | | | | [place] [address] | | | | + + + + + + | BUN/Creatin | 19Comment: Testing | | EXTERNAL | | | ine Ratio | performed at [facility], [address] | | LAB | | | | [address], | | | | | | [place] [address] | | | | + + + + + + | Calcium | 7.7 (L)Comment: Testing | 8.5 - 10.5 | EXTERNAL | | | | performed at [facility], [address] | mg/dL | LAB | | | | [address], | | | | | | [place] [address] | | | | + + + + + + | Protein, | 4.8 (L)Comment: Testing | 6.3 - 8.2 g/dL | EXTERNAL | | | Total | performed at [facility], [address] | | LAB | | | | [address], | | | | | | [place] [address] | | | | + + + + + + | Albumin | 2.3 (L)Comment: Testing | 3.6 - 5.0 g/dL | EXTERNAL | | | | performed at [facility], [address] | | LAB | | | | [address], | | | | | | [place] [address] | | | | + + + + + + | Globulin | 2.5Comment: Testing | 1.3 - 4.9 g/dL | EXTERNAL | | | | performed at [facility], [address] | | LAB | | | | [address], | | | | | | [place] [address] | | | | + + + + + + | A/G Ratio | 0.9 (L)Comment: Testing | 1.0 - 2.4 | EXTERNAL | | | | performed at [facility], [address] | | LAB | | | | [address], | | | | | | [place] [address] | | | | + + + + + + | Bilirubin | 0.2Comment: Testing | 0.1 - 1.5 mg/dL | EXTERNAL | | | Total | performed at [facility], [address] | | LAB | | | | [address], | | | | | | [place] [address] | | | | + + + + + + | ALP, | 87Comment: Testing | 35 - 115 U/L | EXTERNAL | | | External | performed at [facility], [address] | | LAB | | | | [address], | | | | | | [place] [address] | | | | + + + + + + | AST | 15Comment: Testing | 10 - 45 U/L | EXTERNAL | | | | performed at [facility], [address] | | LAB | | | | [address], | | | | | | [place] [address] | | | | + + + + + + | ALT | 17Comment: Testing | 10 - 65 U/L | EXTERNAL | | | | performed at [facility], [address] | | LAB | | | | [address], | | | | | | [place] [address] | | | | + + + [...] | | | | | | at [facility], [address] | | | | | | [address], | | | | | | [place] [address] | | | | + + + [...] | | | Fingerstick | performed at [facility];[address] | | LAB | | | | [address];[place], [place] | | | | | | [address] | | | | + + + [...] EXTERNAL | | | | performed at [facility] | | LAB | | | | [facility];[place], [place] | | | | | | [address] | | | | + + + [...] EXTERNAL | | | | performed at [facility];[address] | | LAB | | | | [address];[place] | | | | | | [address] | | | | + + + [...] EXTERNAL | | | | performed at [facility];[address] | mmol/L | LAB | | | | [address];[place] | | | | | | [address] | | | | + + + + + + | K | 3.8Comment: Testing | 3.5 - 4.9 | EXTERNAL | | | | performed at [facility];[address] | mmol/L | LAB | | | | [address];[place] | | | | | | [address] | | | | + + + + + + | Cl | 99Comment: Testing | 99 - 109 mmol/L | EXTERNAL | | | | performed at [facility];[address] | | LAB | | | | [address];[place] | | | | | | [address] | | | | + + + + + + | CO2 | 21 (L)Comment: Testing | 23 - 32 mmol/L | EXTERNAL | | | | performed at [facility];[address] | | LAB | | | | [address];[place] | | | | | | [address] | | | | + + + + + + | Anion Gap | 13Comment: Testing | 5 - 20 mmol/L | EXTERNAL | | | | performed at [facility];[address] | | LAB | | | | [address];[place] | | | | | | [address] | | | | + + + + + + | Glucose, | 241 (H)Comment: Testing | 65 - 99 mg/dL | EXTERNAL | | | Fasting | performed at [facility];[address] | | LAB | | | | [address];[place] | | | | | | [address] | | | | + + + + + + | BUN | 10Comment: Testing | 8 - 25 mg/dL | EXTERNAL | | | | performed at [facility];[address] | | LAB | | | | [address];[place] | | | | | | [address] | | | | + + + + + + | Creatinine | 0.95Comment: Testing | 0.70 - 1.30 | EXTERNAL | | | | performed at [facility];[address] | mg/dL | LAB | | | | [address];[place] | | | | | | [address] | | | | + + + + + + | BUN/Creatin | 10Comment: Testing | | EXTERNAL | | | ine Ratio | performed at [facility];[address] | | LAB | | | | [address];[place] | | | | | | [address] | | | | + + + + + + | Calcium | 7.9 (L)Comment: Testing | 8.5 - 10.5 | EXTERNAL | | | | performed at [facility];888 | mg/dL | LAB | | | | [address];[place] | | | | | | [address] | | | | + + + [...] | | | | | | at [facility];[address] [place] [address] | | | | | | [facility];[place] [address] | | | | + + + [...] | | | Fingerstick | performed at [facility];888 | | LAB | | | | [address];[place], [place] | | | | | | [address] | | | | + + + [...] EXTERNAL | | | | performed at [facility];888 | | LAB | | | | [address];[place] | | | | | | [address] | | | | + + + [...] LAB | | | | performed at [facility];888 | | | | | | [address];[place] | | | | | | [address] | | | | + + + [...] EXTERNAL | | | | performed at [facility];888 | mmol/L | LAB | | | | [address];[place] | | | | | | [address] | | | | + + + + + + | K | 3.8Comment: SLT | 3.5 - 4.9 | EXTERNAL | | | | HEMOLYSISTesting | mmol/L | LAB | | | | performed at [facility];[address] | | | | | | [address];[place] | | | | | | [address] | | | | + + + + + + | Cl | 102Comment: Testing | 99 - 109 mmol/L | EXTERNAL | | | | performed at [facility];[address] | | LAB | | | | [address];[place] | | | | | | [address] | | | | + + + + + + | CO2 | 20 (L)Comment: Testing | 23 - 32 mmol/L | EXTERNAL | | | | performed at [facility];888 | | LAB | | | | [address];[place] | | | | | | [address] | | | | + + + + + + | Anion Gap | 12Comment: Testing | 5 - 20 mmol/L | EXTERNAL | | | | performed at [facility];[address] | | LAB | | | | [address];[place] | | | | | | [address] | | | | + + + + + + | Glucose, | 250 (H)Comment: Testing | 65 - 99 mg/dL | EXTERNAL | | | Fasting | performed at [facility];[address] | | LAB | | | | [address];[place] | | | | | | [address] | | | | + + + + + + | BUN | 8Comment: Testing | 8 - 25 mg/dL | EXTERNAL | | | | performed at [facility];[address] | | LAB | | | | [address];[place] | | | | | | [address] | | | | + + + + + + | Creatinine | 0.83Comment: Testing | 0.70 - 1.30 | EXTERNAL | | | | performed at [facility];888 | mg/dL | LAB | | | | [address];[place] | | | | | | [address] | | | | + + + + + + | BUN/Creatin | 10Comment: Testing | | EXTERNAL | | | ine Ratio | performed at [facility];[address] | | LAB | | | | [address];[place] | | | | | | [address] | | | | + + + + + + | Calcium | 7.8 (L)Comment: Testing | 8.5 - 10.5 | EXTERNAL | | | | performed at [facility];888 | mg/dL | LAB | | | | [address];[place] | | | | | | [address] | | | | + + + [...] | | | | | | at [facility];[address] [place] [address] | | | | | | [facility];[place] [address] | | | | + + + [...] | | | Fingerstick | performed at [facility];888 | | LAB | | | | [address];[place] | | | | | | [address] | | | | + + + [...] EXTERNAL | | | | performed at [facility] | | LAB | | | | [address];[place] | | | | | | [address] | | | | + + + [...] EXTERNAL | | | | performed at [facility] | | LAB | | | | [address] [facility];[place], [place] | | | | | | [address] | | | | + + + [...] EXTERNAL | | | | performed at [facility];888 | mmol/L | LAB | | | | [address];[place] | | | | | | [address] | | | | + + + + + + | K | 3.3 (L)Comment: Testing | 3.5 - 4.9 | EXTERNAL | | | | performed at [facility];888 | mmol/L | LAB | | | | [address];[place] | | | | | | [address] | | | | + + + + + + | Cl | 106Comment: Testing | 99 - 109 mmol/L | EXTERNAL | | | | performed at [facility];[address] | | LAB | | | | [address];[place] | | | | | | [address] | | | | + + + + + + | CO2 | 16 (L)Comment: Testing | 23 - 32 mmol/L | EXTERNAL | | | | performed at [facility];[address] | | LAB | | | | [address];[place] | | | | | | [address] | | | | + + + + + + | Anion Gap | 14Comment: Testing | 5 - 20 mmol/L | EXTERNAL | | | | performed at [facility];[address] | | LAB | | | | [address];[place] | | | | | | [address] | | | | + + + + + + | Glucose, | 340 (H)Comment: Testing | 65 - 99 mg/dL | EXTERNAL | | | Fasting | performed at [facility];[address] | | LAB | | | | [address];[place] | | | | | | [address] | | | | + + + + + + | BUN | 7 (L)Comment: Testing | 8 - 25 mg/dL | EXTERNAL | | | | performed at [facility];[address] | | LAB | | | | [address];[place] | | | | | | [address] | | | | + + + + + + | Creatinine | 0.70Comment: Testing | 0.70 - 1.30 | EXTERNAL | | | | performed at [facility];888 | mg/dL | LAB | | | | [address];[place] | | | | | | [address] | | | | + + + + + + | BUN/Creatin | 10Comment: Testing | | EXTERNAL | | | ine Ratio | performed at [facility];888 | | LAB | | | | [address];[place] | | | | | | [address] | | | | + + + + + + | Calcium | 6.9 (L)Comment: Testing | 8.5 - 10.5 | EXTERNAL | | | | performed at [facility];888 | mg/dL | LAB | | | | [address];[place] | | | | | | [address] | | | | + + + [...] | | | | | | at [facility];[address];[place] [address] | | | | + + + [...] | | | Fingerstick | performed at [facility];888 | | LAB | | | | [address];[place] | | | | | | [address] | | | | + + + [...] | | | Fingerstick | performed at [facility];888 | | LAB | | | | [address];[place] | | | | | | [address] | | | | + + + [...] | | | Fingerstick | performed at [facility];888 | | LAB | | | | [address];[place] | | | | | | [address] | | | | + + + [...] | | | Fingerstick | performed at [facility];888 | | LAB | | | | [address];[place], [place] | | | | | | [address] | | | | + + + [...] EXTERNAL | | | | performed at [facility];8 | | LAB | | | | [address];[place], [place] | | | | | | [address] | | | | + + + [...] EXTERNAL | | | | performed at [facility];888 | | LAB | | | | [address];[place], [place] | | | | | | [address] | | | | + + + [...] EXTERNAL | | | | performed at [facility];888 | mmol/L | LAB | | | | [address];[place] | | | | | | [address] | | | | + + + + + + | K | 3.1 (L)Comment: Testing | 3.5 - 4.9 | EXTERNAL | | | | performed at [facility];888 | mmol/L | LAB | | | | [address];[place] | | | | | | [address] | | | | + + + + + + | Cl | 107Comment: Testing | 99 - 109 mmol/L | EXTERNAL | | | | performed at [facility];[address] | | LAB | | | | [address];[place] | | | | | | [address] | | | | + + + + + + | CO2 | 16 (L)Comment: Testing | 23 - 32 mmol/L | EXTERNAL | | | | performed at [facility];[address] | | LAB | | | | [address];[place] | | | | | | [address] | | | | + + + + + + | Anion Gap | 13Comment: Testing | 5 - 20 mmol/L | EXTERNAL | | | | performed at [facility];[address] | | LAB | | | | [address];[place] | | | | | | [address] | | | | + + + + + + | Glucose, | 173 (H)Comment: Testing | 65 - 99 mg/dL | EXTERNAL | | | Fasting | performed at [facility];[address] | | LAB | | | | [address];[place] | | | | | | [address] | | | | + + + + + + | BUN | 7 (L)Comment: Testing | 8 - 25 mg/dL | EXTERNAL | | | | performed at [facility];[address] | | LAB | | | | [address];[place] | | | | | | [address] | | | | + + + + + + | Creatinine | 0.63 (L)Comment: Testing | 0.70 - 1.30 | EXTERNAL | | | | performed at [facility];888 | mg/dL | LAB | | | | [address];[place] | | | | | | [address] | | | | + + + + + + | BUN/Creatin | 11Comment: Testing | | EXTERNAL | | | ine Ratio | performed at [facility];[address] | | LAB | | | | [address];[place] | | | | | | [address] | | | | + + + + + + | Calcium | 7.2 (L)Comment: Testing | 8.5 - 10.5 | EXTERNAL | | | | performed at [facility];888 | mg/dL | LAB | | | | [address];[place], [place] | | | | | | [address] | | | | + + + [...] | | | | | | at [facility];[address];[place] [address] | | | | + + + [...] | | | Fingerstick | performed at [facility];8 | | LAB | | | | [address];[place] | | | | | | [address] | | | | + + + [...] | | | Fingerstick | performed at [facility];888 | | LAB | | | | [address];[place], [place] | | | | | | [address] | | | | + + + [...] | | | Fingerstick | performed at [facility];888 | | LAB | | | | [address];[place] | | | | | | [address] | | | | + + + [...] | | | Fingerstick | performed at [facility];888 | | LAB | | | | [address];[place] | | | | | | [address] | | | | + + + [...] EXTERNAL | | | | performed at [facility], [address] | K/uL | LAB | | | | [address], | | | | | | [place] [address] | | | | + + + + + + | Non- | 3.17 (L)Comment: Testing | 4.20 - 5.70 | EXTERNAL | | | Red Blood | performed at [facility], [address] | M/uL | LAB | | | Cells | [address], | | | | | Counted | [place] [address] | | | | + + + + + + | Hemoglobin | 10.2 (L)Comment: Testing | 13.2 - 17.0 | EXTERNAL | | | | performed at [facility], [address] | g/dL | LAB | | | | [address], | | | | | | [place] [address] | | | | + + + + + + | Hematocrit, | 29.6 (L)Comment: Testing | 39.0 - 50.0 % | EXTERNAL | | | POC | performed at [facility], [address] | | LAB | | | | [address], | | | | | | [place] [address] | | | | + + + + + + | MCV | 93.3Comment: Testing | 80.0 - 100.0 fl | EXTERNAL | | | | performed at [facility], [address] | | LAB | | | | [address], | | | | | | [place] [address] | | | | + + + + + + | MCH | 32.0Comment: Testing | 27.0 - 34.0 pg | EXTERNAL | | | | performed at [facility], [address] | | LAB | | | | [address], | | | | | | [place] [address] | | | | + + + + + + | MCHC | 34.3Comment: Testing | 32.0 - 35.5 | EXTERNAL | | | | performed at [facility], [address] | g/dL | LAB | | | | [address], | | | | | | [place] [address] | | | | + + + + + + | RDW-CV | 46.4Comment: Testing | 37 - 53 fl | EXTERNAL | | | | performed at [facility], [address] | | LAB | | | | [address], | | | | | | [place] [address] | | | | + + + + + + | Platelet | 209Comment: Testing | 150 - 400 K/uL | EXTERNAL | | | Count | performed at [facility], [address] | | LAB | | | Plasma | [address], | | | | | | [place] [address] | | | | + + + + + + | MPV | 7.5Comment: Testing | fl | EXTERNAL | | | | performed at [facility], [address] | | LAB | | | | [address], | | | | | | [place] [address] | | | | + + + + + + | Differentia | AUTOMATEDComment: | | EXTERNAL | | | l Type | Testing performed at | | LAB | | | | [facility], [address] | | | | | | [place] | | | | | | [address] | | | | + + + + + + | % Segmented | 78.26Comment: Testing | % | EXTERNAL | | | | performed at [facility], [address] | | LAB | | | Neutrophils | [address], | | | | | | [place] [address] | | | | + + + + + + | % | 14.07Comment: Testing | % | EXTERNAL | | | Lymphocytes | performed at [facility], [address] | | LAB | | | | [address], | | | | | | [place] [address] | | | | + + + + + + | % Monocytes | 6.80Comment: Testing | % | EXTERNAL | | | | performed at [facility], [address] | | LAB | | | | [address], | | | | | | [place] [address] | | | | + + + + + + | % | 0.69Comment: Testing | % | EXTERNAL | | | Eosinophils | performed at [facility], [address] | | LAB | | | | [address], | | | | | | [place] [address] | | | | + + + + + + | % Basophils | 0.18Comment: Testing | % | EXTERNAL | | | | performed at [facility], [address] | | LAB | | | | [address], | | | | | | [place] [address] | | | | + + + + + + | Absolute | 6.75Comment: Testing | 1.90 - 7.40 | EXTERNAL | | | Segmented | performed at [facility], [address] | K/uL | LAB | | | Neutrophils | [address], | | | | | | [place] [address] | | | | + + + + + + | Absolute | 1.21Comment: Testing | 1.00 - 3.90 | EXTERNAL | | | Lymphocytes | performed at [facility], [address] | K/uL | LAB | | | | [address], | | | | | | [place] [address] | | | | + + + + + + | Absolute | 0.59Comment: Testing | 0.00 - 0.80 | EXTERNAL | | | Monocytes | performed at [facility], [address] | K/uL | LAB | | | | [address], | | | | | | [place] [address] | | | | + + + + + + | Absolute | 0.06Comment: Testing | 0.00 - 0.50 | EXTERNAL | | | Eosinophils | performed at [facility], [address] | K/uL | LAB | | | | [address], | | | | | | [place] [address] | | | | + + + + + + | Absolute | 0.02Comment: Testing | 0.00 - 0.10 | EXTERNAL | | | Basophils | performed at [facility], [address] | K/uL | [...] EXTERNAL | | | | performed at [facility];[address] | | LAB | | | | [address];[place], [place] | | | | | | [address] | | | | + + + [...] EXTERNAL | | | | performed at [facility] | | LAB | | | | [address];[place] | | | | | | [address] | | | | + + + [...] EXTERNAL | | | | performed at [facility];888 | mmol/L | LAB | | | | [address];[place] | | | | | | [address] | | | | + + + + + + | K | 2.9 (L)Comment: Testing | 3.5 - 4.9 | EXTERNAL | | | | performed at [facility];888 | mmol/L | LAB | | | | [address];[place] | | | | | | [address] | | | | + + + + + + | Cl | 108Comment: Testing | 99 - 109 mmol/L | EXTERNAL | | | | performed at [facility];[address] | | LAB | | | | [address];[place] | | | | | | [address] | | | | + + + + + + | CO2 | 15 (L)Comment: Testing | 23 - 32 mmol/L | EXTERNAL | | | | performed at [facility];[address] | | LAB | | | | [address];[place] | | | | | | [address] | | | | + + + + + + | Anion Gap | 14Comment: Testing | 5 - 20 mmol/L | EXTERNAL | | | | performed at [facility];[address] | | LAB | | | | [address];[place] | | | | | | [address] | | | | + + + + + + | Glucose, | 197 (H)Comment: Testing | 65 - 99 mg/dL | EXTERNAL | | | Fasting | performed at [facility];[address] | | LAB | | | | [address];[place] | | | | | | [address] | | | | + + + + + + | BUN | 8Comment: Testing | 8 - 25 mg/dL | EXTERNAL | | | | performed at [facility];[address] | | LAB | | | | [address];[place] | | | | | | [address] | | | | + + + + + + | Creatinine | 0.64 (L)Comment: Testing | 0.70 - 1.30 | EXTERNAL | | | | performed at [facility];888 | mg/dL | LAB | | | | [address];[place] | | | | | | [address] | | | | + + + + + + | BUN/Creatin | 12Comment: Testing | | EXTERNAL | | | ine Ratio | performed at [facility];[address] | | LAB | | | | [address];[place] | | | | | | [address] | | | | + + + + + + | Calcium | 7.1 (L)Comment: Testing | 8.5 - 10.5 | EXTERNAL | | | | performed at [facility];888 | mg/dL | LAB | | | | [address];[place] | | | | | | [address] | | | | + + + [...] | | | | | | at [facility];[address] | | | | | | [address];[place] [address] | | | | + + + [...] | | | Fingerstick | performed at [facility];[address] | | LAB | | | | [address];[place], [place] | | | | | | [address] | | | | + + + [...] | | | Fingerstick | performed at [facility];[address] | | LAB | | | | [address];[place] | | | | | | [address] | | | | + + + [...] | | | Fingerstick | performed at [facility];[address] | | LAB | | | | [address];[place] | | | | | | [address] | | | | + + + [...] | | | Fingerstick | performed at [facility];[address] | | LAB | | | | [address];[place] | | | | | | [address] | | | | + + + [...] EXTERNAL | | | | performed at [facility];8 | | LAB | | | | [address];[place] | | | | | | [address] | | | | + + + [...] EXTERNAL | | | | performed at [facility];[address] | | LAB | | | | [address];[place], [place] | | | | | | [address] [...] EXTERNAL | | | | performed at [facility];888 | mmol/L | LAB | | | | [address];[place] | | | | | | [address] | | | | + + + + + + | K | 3.0 (L)Comment: Testing | 3.5 - 4.9 | EXTERNAL | | | | performed at [facility];888 | mmol/L | LAB | | | | [address];[place] | | | | | | [address] | | | | + + + + + + | Cl | 108Comment: Testing | 99 - 109 mmol/L | EXTERNAL | | | | performed at [facility];[address] | | LAB | | | | [address];[place] | | | | | | [address] | | | | + + + [...] [place] | | | | | | [address] | | | | + + + + + + | Anion Gap | 14Comment: Testing | 5 - 20 mmol/L | EXTERNAL | | | | performed at [facility];[address] | | LAB | | | | [address];[place] | | | | | | [address] | | | | + + + + + + | Glucose, | 213 (H)Comment: Testing | 65 - 99 mg/dL | EXTERNAL | | | Fasting | performed at [facility];[address] | | LAB | | | | [address];[place] | | | | | | [address] | | | | + + + + + + | BUN | 10Comment: Testing | 8 - 25 mg/dL | EXTERNAL | | | | performed at [facility];[address] | | LAB | | | | [address];[place] | | | | | | [address] | | | | + + + + + + | Creatinine | 0.70Comment: Testing | 0.70 - 1.30 | EXTERNAL | | | | performed at [facility];888 | mg/dL | LAB | | | | [address];[place] | | | | | | [address] | | | | + + + + + + | BUN/Creatin | 14Comment: Testing | | EXTERNAL | | | ine Ratio | performed at [facility];[address] | | LAB | | | | [address];[place] | | | | | | [address] | | | | + + + + + + | Calcium | 6.9 (L)Comment: Testing | 8.5 - 10.5 | EXTERNAL | | | | performed at [facility];888 | mg/dL | LAB | | | | [address];[place] | | | | | | [address] | | | | + + + [...] | | | | | | at [facility];[address] | | | | | | [address];[place] [address] | | | | + + + [...] | | | Fingerstick | performed at [facility];[address] | | LAB | | | | [address];[place], [place] | | | | | | [address] | | | | + + + [...] | | | Fingerstick | performed at [facility];[address] | | LAB | | | | [address];[place] | | | | | | [address] | | | | + + + [...] | | | Fingerstick | performed at [facility];[address] | | LAB | | | | [address];[place] | | | | | | [address] | | | | + + + [...] EXTERNAL | | | | performed at [facility];[address] | | LAB | | | | [address];[place], [place] | | | | | | [address] | | | | + + + [...] EXTERNAL | | | | performed at [facility];[address] | | LAB | | | | [address];[place], [place] | | | | | | [address] | | | | + + + [...] EXTERNAL | | | | performed at [facility];[address] | mmol/L | LAB | | | | [address];[place] | | | | | | [address] | | | | + + + + + + | K | 3.3 (L)Comment: Testing | 3.5 - 4.9 | EXTERNAL | | | | performed at [facility];888 | mmol/L | LAB | | | | [address];[place] | | | | | | [address] | | | | + + + + + + | Cl | 111 (H)Comment: Testing | 99 - 109 mmol/L | EXTERNAL | | | | performed at [facility];[address] | | LAB | | | | [address];[place] | | | | | | [address] | | | | + + + + + + | CO2 | 16 (L)Comment: Testing | 23 - 32 mmol/L | EXTERNAL | | | | performed at [facility];[address] | | LAB | | | | [address];[place] | | | | | | [address] | | | | + + + + + + | Anion Gap | 13Comment: Testing | 5 - 20 mmol/L | EXTERNAL | | | | performed at [facility];[address] | | LAB | | | | [address];[place] | | | | | | [address] | | | | + + + + + + | Glucose, | 125 (H)Comment: Testing | 65 - 99 mg/dL | EXTERNAL | | | Fasting | performed at [facility];[address] | | LAB | | | | [address];[place] | | | | | | [address] | | | | + + + + + + | BUN | 10Comment: Testing | 8 - 25 mg/dL | EXTERNAL | | | | performed at [facility];[address] | | LAB | | | | [address];[place] | | | | | | [address] | | | | + + + + + + | Creatinine | 0.82Comment: Testing | 0.70 - 1.30 | EXTERNAL | | | | performed at [facility];888 | mg/dL | LAB | | | | [address];[place] | | | | | | [address] | | | | + + + + + + | BUN/Creatin | 12Comment: Testing | | EXTERNAL | | | ine Ratio | performed at [facility];[address] | | LAB | | | | [address];[place] | | | | | | [address] | | | | + + + + + + | Calcium | 6.6 (L)Comment: Testing | 8.5 - 10.5 | EXTERNAL | | | | performed at [facility];888 | mg/dL | LAB | | | | [address];[place] | | | | | | [address] | | | | + + + [...] | | | | | | at [facility];[address];[place] [address] | | | | + + [...] | | | Fingerstick | performed at [facility];[address] | | LAB | | | | [address];[place] | | | | | | [address] | | | | + + + [...] | | | Fingerstick | performed at [facility];[address] | | LAB | | | | [address];[place] | | | | | | [address] | | | | + + + [...] | | | Fingerstick | performed at [facility];[address] | | LAB | | | | [address];[place], [place] | | | | | | [address] | | | | + + + [...] | | | Fingerstick | performed at [facility];[address] | | LAB | | | | [address];[place] | | | | | | [address] | | | | + + + [...] EXTERNAL | | | | performed at [facility];[address] | | LAB | | | | [facility];[place], [place] | | | | | | [address] | | | | + + + [...] EXTERNAL | | | | performed at [facility];[address] | | LAB | | | | [address];[place] | | | | | | [address] | | | | + + + [...] | | LAB | | | | [facility];[address] [place] [address] | | | | | | Blvd;[place] [address] | | | | + + + [...] EXTERNAL | | | | performed at [facility];888 | mmol/L | LAB | | | | [address];[place] | | | | | | [address] | | | | + + + [...] [place] | | | | | | [address] | | | | + + + + + + | Cl | 110 (H)Comment: Testing | 99 - 109 mmol/L | EXTERNAL | | | | performed at [facility];[address] | | LAB | | | | [address];[place] | | | | | | [address] | | | | + + + + + + | CO2 | 15 (L)Comment: Testing | 23 - 32 mmol/L | EXTERNAL | | | | performed at [facility];[address] | | LAB | | | | [address];[place] | | | | | | [address] | | | | + + + + + + | Anion Gap | 15Comment: Testing | 5 - 20 mmol/L | EXTERNAL | | | | performed at [facility];[address] | | LAB | | | | [address];[place] | | | | | | [address] | | | | + + + + + + | Glucose, | 133 (H)Comment: Testing | 65 - 99 mg/dL | EXTERNAL | | | Fasting | performed at [facility];[address] | | LAB | | | | [address];[place] | | | | | | [address] | | | | + + + + + + | BUN | 14Comment: Testing | 8 - 25 mg/dL | EXTERNAL | | | | performed at [facility];[address] | | LAB | | | | [address];[place] | | | | | | [address] | | | | + + + + + + | Creatinine | 0.92Comment: Testing | 0.70 - 1.30 | EXTERNAL | | | | performed at [facility];888 | mg/dL | LAB | | | | [address];[place] | | | | | | [address] | | | | + + + + + + | BUN/Creatin | 15Comment: Testing | | EXTERNAL | | | ine Ratio | performed at [facility];[address] | | LAB | | | | [address];[place] | | | | | | [address] | | | | + + + + + + | Calcium | 6.5 (L)Comment: Testing | 8.5 - 10.5 | EXTERNAL | | | | performed at [facility];888 | mg/dL | LAB | | | | [facility];[place], [place] | | | | | | [address] | | | | + + + [...] | | | | | | at [facility];[address];[place] [address] | | | | + + + [...] | | | Fingerstick | performed at [facility];8 | | LAB | | | | [address];[place] | | | | | | [address] | | | | + + + [...] | | | Fingerstick | performed at [facility];888 | | LAB | | | | [address];[place], [place] | | | | | | [address] | | | | + + + [...] | | | Fingerstick | performed at [facility];8 | | LAB | | | | [address];[place] | | | | | | [address] | | | | + + + [...] | | | Fingerstick | performed at [facility];888 | | LAB | | | | [address];[place] | | | | | | [address] | | | | + + + [...] EXTERNAL | | | | performed at [facility];88 | | LAB | | | | [address];[place], [place] | | | | | | [address] | | | | + + + [...] EXTERNAL | | | | performed at [facility];888 | | LAB | | | | [address];[place], [place] | | | | | | [address] | | | | + + + [...] | | LAB | | | | [facility];[address] [place] [address] | | | | | | Blvd;[place] [address] | | | | + + + [...] EXTERNAL | | | | performed at [facility];888 | mmol/L | LAB | | | | [address];[place] | | | | | | [address] | | | | + + + + + + | K | 3.1 (L)Comment: Testing | 3.5 - 4.9 | EXTERNAL | | | | performed at [facility];888 | mmol/L | LAB | | | | [address];[place] | | | | | | [address] | | | | + + + + + + | Cl | 113 (H)Comment: Testing | 99 - 109 mmol/L | EXTERNAL | | | | performed at [facility];[address] | | LAB | | | | [address];[place] | | | | | | [address] | | | | + + + [...] EXTERNAL | | | | performed at [facility];[address] | | LAB | | | | [address];[place] | | | | | | [address] | | | | + + + + + + | Glucose, | 206 (H)Comment: Testing | 65 - 99 mg/dL | EXTERNAL | | | Fasting | performed at [facility];[address] | | LAB | | | | [address];[place] | | | | | | [address] | | | | + + + + + + | BUN | 18Comment: Testing | 8 - 25 mg/dL | EXTERNAL | | | | performed at [facility];[address] | | LAB | | | | [address];[place] | | | | | | [address] | | | | + + + + + + | Creatinine | 0.84Comment: Testing | 0.70 - 1.30 | EXTERNAL | | | | performed at [facility];888 | mg/dL | LAB | | | | [address];[place] | | | | | | [address] | | | | + + + + + + | BUN/Creatin | 21Comment: Testing | | EXTERNAL | | | ine Ratio | performed at [facility];888 | | LAB | | | | [address];[place] | | | | | | [address] | | | | + + + + + + | Calcium | 6.7 (L)Comment: Testing | 8.5 - 10.5 | EXTERNAL | | | | performed at [facility];888 | mg/dL | LAB | | | | [address];[place] | | | | | | [address] | | | | + + + [...] | | | | | | at [facility];[address];[place] [address] | | | | + + + [...] | | | Fingerstick | performed at [facility];888 | | LAB | | | | [address];[place], [place] | | | | | | [address] | | | | + + + [...] | | | Fingerstick | performed at [facility];888 | | LAB | | | | [address];[place] | | | | | | [address] | | | | + + + [...] EXTERNAL | | | | performed at [facility];888 | | LAB | | | | [address];[place], [place] | | | | | | [address] | | | | + + + [...] EXTERNAL | | | | performed at [facility];888 | | LAB | | | | [address];[place], [place] | | | | | | [address] [...] EXTERNAL | | | | performed at [facility];888 | mmol/L | LAB | | | | [address];[place] | | | | | | [address] | | | | + + + + + + | K | 3.0 (L)Comment: Testing | 3.5 - 4.9 | EXTERNAL | | | | performed at [facility];888 | mmol/L | LAB | | | | [address];[place] | | | | | | [address] | | | | + + + + + + | Cl | 113 (H)Comment: Testing | 99 - 109 mmol/L | EXTERNAL | | | | performed at [facility];[address] | | LAB | | | | [address];[place] | | | | | | [address] | | | | + + + [...] [place] | | | | | | [address] | | | | + + + + + + | Anion Gap | 27 (H)Comment: Testing | 5 - 20 mmol/L | EXTERNAL | | | | performed at [facility];888 | | LAB | | | | [address];[place] | | | | | | [address] | | | | + + + + + + | Glucose, | 214 (H)Comment: Testing | 65 - 99 mg/dL | EXTERNAL | | | Fasting | performed at [facility];888 | | LAB | | | | [address];[place] | | | | | | [address] | | | | + + + + + + | BUN | 21Comment: Testing | 8 - 25 mg/dL | EXTERNAL | | | | performed at [facility];[address] | | LAB | | | | [address];[place] | | | | | | [address] | | | | + + + + + + | Creatinine | 0.87Comment: Testing | 0.70 - 1.30 | EXTERNAL | | | | performed at [facility];888 | mg/dL | LAB | | | | [address];[place] | | | | | | [address] | | | | + + + + + + | BUN/Creatin | 24Comment: Testing | | EXTERNAL | | | ine Ratio | performed at [facility];[address] | | LAB | | | | [address];[place] | | | | | | [address] | | | | + + + + + + | Calcium | 6.8 (L)Comment: Testing | 8.5 - 10.5 | EXTERNAL | | | | performed at [facility];888 | mg/dL | LAB | | | | [address];[place] | | | | | | [address] | | | | + + + [...] | | | | | | at [facility];[address] [place] [address] | | | | | | [facility];[place] [address] | | | | + + + [...] | | | Fingerstick | performed at [facility];888 | | LAB | | | | [address];[place] | | | | | | [address] | | | | + + + [...] | | | Fingerstick | performed at [facility];888 | | LAB | | | | [address];[place] | | | | | | [address] | | | | + + + [...] | | LAB | | | | [facility];[address] | | [address];[place] [address] | | | | + + + [...] EXTERNAL | | | | performed at [facility];888 | K/uL | LAB | | | | [address];[place] | | | | | | [address] | | | | + + + + + + | Non- | 2.80 (L)Comment: Testing | 4.20 - 5.70 | EXTERNAL | | | Red Blood | performed at [facility];888 | M/uL | LAB | | | Cells | [address];[place] | | | | | Counted | [address] | | | | + + + + + + | Hemoglobin | 9.1 (L)Comment: Testing | 13.2 - 17.0 | EXTERNAL | | | | performed at [facility];888 | g/dL | LAB | | | | [address];[place] | | | | | | [address] | | | | + + + + + + | Hematocrit, | 26.7 (L)Comment: Testing | 39.0 - 50.0 % | EXTERNAL | | | POC | performed at [facility];[address] | | LAB | | | | [address];[place] | | | | | | [address] | | | | + + + + + + | MCV | 95.4Comment: Testing | 80.0 - 100.0 fl | EXTERNAL | | | | performed at [facility];[address] | | LAB | | | | [address];[place] | | | | | | [address] | | | | + + + + + + | MCH | 32.3Comment: Testing | 27.0 - 34.0 pg | EXTERNAL | | | | performed at [facility];[address] | | LAB | | | | [address];[place] | | | | | | [address] | | | | + + + + + + | MCHC | 33.9Comment: Testing | 32.0 - 35.5 | EXTERNAL | | | | performed at [facility];888 | g/dL | LAB | | | | [address];[place] | | | | | | [address] | | | | + + + + + + | RDW-CV | 47.3Comment: Testing | 37 - 53 fl | EXTERNAL | | | | performed at [facility];[address] | | LAB | | | | [address];[place] | | | | | | [address] | | | | + + + + + + | Platelet | 190Comment: Testing | 150 - 400 K/uL | EXTERNAL | | | Count | performed at [facility];888 | | LAB | | | Plasma | [address];[place] | | | | | | [address] | | | | + + + + + + | MPV | 7.2Comment: Testing | fl | EXTERNAL | | | | performed at [facility];[address] | | LAB | | | | [address];[place] | | | | | | [address] | | | | + + + + + + | Differentia | MANUALComment: Testing | | EXTERNAL | | | l Type | performed at [facility];888 | | LAB | | | | [address];[place] | | | | | | [address] | | | | + + + + + + | Segmented | 59Comment: Testing | % | EXTERNAL | | | Neutrophils | performed at [facility];888 | | LAB | | | Manual | [address];[place] | | | | | | [address] | | | | + + + + + + | % Bands | 24Comment: Testing | % | EXTERNAL | | | | performed at [facility];888 | | LAB | | | | [address];[place] | | | | | | [address] | | | | + + + + + + | % | 2Comment: Testing | % | EXTERNAL | | | Metamyelocy | performed at [facility];[address] | | LAB | | | edilson | [address];[place] | | | | | | [address] | | | | + + + + + + | Lymphocytes | 12Comment: Testing | % | EXTERNAL | | | Manual | performed at [facility];[address] | | LAB | | | | [address];[place] | | | | | | [address] | | | | + + + + + + | Monocytes | 3Comment: Testing | % | EXTERNAL | | | Manual | performed at [facility];[address] | | LAB | | | | [address];[place] | | | | | | [address] | | | | + + + + + + | Absolute | 5.18Comment: Testing | 1.90 - 7.40 | EXTERNAL | | | Neutrophils | performed at [facility];888 | K/uL | LAB | | | | [address];[place] | | | | | | [address] | | | | + + + + + + | Bands | 2.10 (H)Comment: Testing | 0.00 - 0.20 | EXTERNAL | | | Manual | performed at [facility];888 | K/uL | LAB | | | | [address];[place] | | | | | | [address] | | | | + + + + + + | Absolute | 0.18 (H)Comment: Testing | K/uL | EXTERNAL | | | Metamyelocy | performed at [facility];[address] | | LAB | | | [address] | [address];[place] | | | | | | [address] | | | | + + + + + + | Absolute | 1.05Comment: Testing | 1.00 - 3.90 | EXTERNAL | | | Lymphocytes | performed at [facility];888 | K/uL | LAB | | | | [address];[place] | | | | | | [address] | | | | + + + + + + | Absolute | 0.26Comment: Testing | 0.00 - 0.80 | EXTERNAL | | | Monocytes | performed at [facility];888 | K/uL | LAB | | | | [address];[place] | | | | | | [address] | | | | + + + + + + | Platelet | ADEQUATEComment: Testing | | EXTERNAL | | | Estimate | performed at [facility];[address] | | LAB | | | | [address];[place] | | | | | | [address] | | | | + + + + + + | RBC | NORMALComment: Testing | | EXTERNAL | | | Morphology | performed at [facility];[address] | | LAB | | | | [address];[place] | | | | | | [address] | | | | + + + [...] | | | | | | [address];[place], [place] | | | | | | [address] | | | | + + + [...] | | | | | | [address];[place], [place] | | | | | | [address] | | | | + + + [...] | EXTERNAL | | | A1c | [place] [facility] | | LAB | | | [...] | | | | | performed at [facility], [address] | | | | | [address] [facility], | | | | | | [place] [address] | | | | + + + [...] | | | | | performed at [facility], [address] | | | | | | [facility], | | | | | | [place] [address] | | | | + + + [...] | | | | | | [address];[place] | | | | | | [address] | | | | + + + [...] [place];[address] | | | | | | [address];[place] | | | | | | [address] | | | | + + + [...] [place] | | | | | | [address] | | | | + + + [...] [place] | | | | | | [address] | | | | + + + [...] [place] | | | | | | [address] | | | | + + + [...] [place] | | | | | | [address] | | | | + + + [...] [place] | | | | | | [address] | | | | + + + [...] [place] | | | | | | [id number] ON 02/05 | | | | | [...] | | | | | | at [facility];[address] | | | | | | [facility];[place] [address] | | | | + + + [...] | | | Fingerstick | performed at [facility];8 | | LAB | | | | [address];[place] | | | | | | [address] | | | | + + + [...]
--- OUTSIDE RECORDS SUMMARY | ~2020-04-12 | XMS | Encounter Summary ---
Demographics + + + | Address | [address] | | | [place] [address] | + + + | Home Phone [...] Team Providers + +------+ + | Care Metalizing Machine Operator Name | Role | Phone [...] 2017 | | [facility] | [phone] | ketoacidosis without | | | | EDUCATION [address] | | coma associated | | | | [place], | | with type 1 diabetes | | | | [place] [address] | | mellitus (HCC) | | | | [phone] | | (Primary Dx) | +--------+ + [...]
--- OUTSIDE RECORDS SUMMARY | ~2020-04-12 | XMS | Encounter Summary ---
Demographics + + + | Address | [address] | | | [place] [address] | + + + | Home Phone [...] Author + + + | Author | [facility] | | | and Ryana | + + + | Organization | [facility] | | [...] Team Providers + +------+ + | Care Thermodynamics Engineer Name | Role | Phone | + +------+ + PCP | Unavailable | + +------+ + Encounter Details +--------+ + + + + | Date | Type | Department | Care Team | Description | +--------+ + + + + | 09/07/ | Hospital | [facility] | Kevin Ricci | | | 1999 - | Encounter | [facility] [address] MD [address] | | | | | [place], [place] | [place], [place] | | | 09/09/ | | [address] | [id number] | | | 1999 | | [phone] | | | +--------+ + + + [...]
--- OUTSIDE RECORDS SUMMARY | ~2020-04-12 | XMS | Encounter Summary ---
Demographics + + + | Address | [address] | | | [place] [address] | + + + | Home Phone [...] Team Providers + +------+ + | Care Television Announcer Name | Role | Phone | + +------+ + PCP | Unavailable | + +------+ + Encounter Details +--------+ + + + + | Date | Type | Department | Care Team | Description | +--------+ + + + + | 05/01/ | [facility] | ROGELIO TALAMANTES | Abhi Berger | | | 2003 | Encounter | FAMILY MEDICINE 120 | MD Chava [address] | | | | | [place] | [place], [place] | | | | | [place] [address] | [address] | | | | | [phone] | | | +--------+ + + + [...]
--- OUTSIDE RECORDS SUMMARY | ~2020-04-12 | XMS | Encounter Summary ---
Demographics + + + | Address | [address] | | | [place] [address] | + + + | Home Phone [...] Team Providers + +------+ + | Care Claim Administrator Name | Role | Phone | [...] + + | 04/09/ | Emergency | [facility] | Adi Castro | Hyperglycemia | | 2017 | | [facility] | Alexander Craig MD | (Primary Dx) | | | | CENTER [address] | [address] | | | | | [place] | [place] | | | | | [address] | [address] | | | | | [phone] | | | +--------+ + + + [...] might be d ifferent from the original. [facility] Joni Kwon Emergency Department Encounter Note [address] [place] [address] PCP:DENIS Paul [phone] eMERGENCY dEPARTMENT eNCOUnter CHIEF [...] deficits noted, no facial assymetry noted. 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 Occasi onal wrong-word or [...] J?MRN: | | | | | | [id number] | | | [id number] | | | his | | | [...] | | | St. | | | [place] | | | y H. | | [...] | | | St. | | | [place] | | | y H. | | [...] | | | St. | | | [place] | | | y H. | | [...] | | | St. | | | [place] | | | y H. | | [...] | | | St. | | | [place] | | | y H. | | [...] | | | St. | | | [place] | | | y | | | [...] + | [facility] | [address] | [place] | [phone] | | [facility] | | [address] | | | - LABORATORY | | [...] | | POC | | | [facility] | | | | | | [...] ST. | [address] | [place], [place] | [phone] | | [facility] | | [address] | | | - LABORATORY | | [...] [address] | [place] | [phone] | | [facility] | | [address] | | | - LABORATORY | | [...] + | [facility] | [address] | [place] | [phone] | | [facility] | | [address] | | | - LABORATORY | | [...] + | [facility] | [address] | [place] | [phone] | | [facility] | | [address] | | | - LABORATORY | | [...] [address] | [place] | [phone] | | [facility] | | [address] | | | - LABORATORY | | [...] 14 | 7 - 18 mg/dL | [facility] | | | | | | [facility] | | | | | | MEDICAL | | | | | | CENTER - | | | | | | LABORATORY | | + + + + + + | Creatinine | 0.93 | 0.60 - 1.30 | [facility] | | | | | mg/dL | [facility] | | | | | | MEDICAL | | | | | | CENTER - | | | | | | LABORATORY | | + + + + + + | eGFR, | >60Comment: GLOMERULAR | >=60 | [facility] | | | non- | FILTRATION | mL/min/1.73m2 | [facility] | | | [place] | RATE,ESTIMATED | | MEDICAL | | | | mL/min/1.57f5Rhne than | | CENTER - | | [...] ST. | [address] | [place], [place] | [phone] | | [facility] | | [address] | | | - LABORATORY | | [...] | | Eosinophils | | K/uL | [facility] | | | | | | MEDICAL | | | | | | CENTER - | | | | | | LABORATORY | | + + + + + + | Absolute | 0.00 | 0.00 - 0.10 | [facility] | | | Basophils | | K/uL | [facility] | | | | | | MEDICAL [...] [address] | [place] | [phone] | | [facility] | | [address] | | | - LABORATORY | | [...] 1.001 - 1.030 | | | | [place], | | | | | | [facility], [...] [address] | [place] | [phone] | | [facility] | | [address] | | | - LABORATORY | | [...]
--- OUTSIDE RECORDS SUMMARY | ~2020-04-12 | XMS | Encounter Summary ---
Demographics + + + | Address | [address] | | | [place] [address] | + + + | Home Phone [...] Team Providers + +------+ + | Care Logging Crew Supervisor Name | Role | Phone | + +------+ + PCP | Unavailable | + +------+ + Encounter Details +--------+ + + + + | Date | Type | Department | Care Team | Description | +--------+ + + + + | 02/23/ | [facility] | ROGELIO TALAMANTES | Abhi Berger | | | 2003 | Encounter | FAMILY MEDICINE 120 | MD [address] | | | | | [place] | [place], [place] | | | | | [place] [address] | [address] | | | | | [phone] | | | +--------+ + + + [...]
--- OUTSIDE RECORDS SUMMARY | ~2020-04-12 | XMS | Encounter Summary ---
Demographics + + + | Address | [address] | | | [place] [address] | + + + | Home Phone [...] Team Providers + +------+ + | Care Fish Conservationist Name | Role | Phone | + +------+ + PCP | Unavailable | + +------+ + Encounter Details +--------+ + + + + | Date | Type | Department | Care Team | Description | +--------+ + + + + | 12/19/ | Hospital | [facility] | Zeus Wilcox MD, | | | 1999 - | Encounter | [facility] | [address] [place] [address] | | | | | [place], [place] | [place] [address] | | | 12/21/ | | [address] | [phone] | | | 1999 | | [phone] | | | +--------+ + + + [...]
--- OUTSIDE RECORDS SUMMARY | ~2020-04-12 | XMS | Encounter Summary ---
Demographics + + + | Address | [address] | | | [place] [address] | + + + | Home Phone [...] Team Providers + +------+ + | Care Medical Education Coordinator Name | Role | Phone | [...] + + | 05/07/ | Emergency | [facility] | Adi aCstro | Vomiting, | | 2017 | | [facility] | Alexander Craig MD | intractability of | | | | CENTER [address] | [address] | vomiting not | | | | [place], [place] | [place], [place] | specified, presence | | | | [address] | [address] | of nausea not | | | | [phone] | | specified, | | | | [...] Craig MD - 05/07/2017 7:35 AM PST [facility] Joni Kwon Emergency Department Encounter Note [address] [place] [address] PCP:DENIS Paul [phone] eMERGENCY dEPARTMENT eNCOUnter CHIEF [...] deficits noted, no facial assymetry noted. 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 Occasi onal wrong-word or [...] J?MRN: | | | | | | [id number] | | | [id number] | | | his | | | [...] | | | St. | | | [place] | | | y | | | [...] | | | St. | | | [place] | | | y | | | [...] | | | St. | | | [place] | | | y H. | | [...] | | | St. | | | [place] | | | y H. | | [...] | | | St. | | | [place] | | | y H. | | [...] | | | St. | | | [place] | | | y H. | | [...] | | | St. | | | [place] | | | y H. | | [...] | | | St. | | | [place] | | | y | | | [...] | | | ext. | | | [phone] | | | or go | | [...]
--- OUTSIDE RECORDS SUMMARY | ~2020-04-12 | XMS | Encounter Summary ---
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
--- OUTSIDE RECORDS SUMMARY | ~2020-04-12 | XMS | Encounter Summary ---
Demographics + + + | Address | [address] | | | [place] [address] | + + + | Home Phone [...] Team Providers + +------+ + | Care [employer] Operations Crew Member Name | Role | Phone | + +------+ + PCP | Unavailable | + +------+ + Encounter Details +--------+ + + + + | Date | Type | Department | Care Team | Description | +--------+ + + + + | 09/07/ | Hospital | [facility] | Kevin Ricci | | | 1999 - | Encounter | [facility] [address] MD [address] | | | | | [place], [place] | [place], [place] | | | 09/09/ | | [id number] | [id number] | | | 1999 | | [phone] | | | +--------+ + + + [...]
--- OUTSIDE RECORDS SUMMARY | ~2020-04-12 | XMS | Encounter Summary ---
Demographics + + + | Address | [address] | | | [place] [address] | + + + | Home Phone [...] Team Providers + +------+ + | Care President & [employer] Name | Role | Phone | + [...] + + | 05/07/ | Hospital | [facility] | Vicky Méndez | Diabetic | | 2017 - | Encounter | MED CTR ICU [address] | MD Diane [address] | ketoacidosis without | | | | Ward [place], | [address] [place], | coma associated | | 05/09/ | | [place] [address] | [place] [address] | with type 1 diabetes | | 2017 | | [phone] | [phone] | mellitus (HCC) | | | | | | (Primary Dx); | | | | | Dougie Yin MD | Nausea; IDDM | | | | | [address] | (insulin dependent | | | | | [place] | diabetes mellitus) | | | | | [address] | (HCC) | | | | | [...] might be different fr om the original. [place] HOSPITALIST DISCHARGE SUMMARY Pt. Name/Age/: Joni [...] information: [address] [place] [address] DENIS Paul In 1 week. 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 Electronically signed by: Dougie Yin MD, 05/09/2017 8:42 [facility] Portions of this chart may have been created with [employer] voice recognition software. Occasi onal wrong-word or [...] be sent through Care Everywhere.Diabetic Ketoac idosis (Estonian)documented in this encounter Medications at Time of [...] might be different fr om the original. [place] HOSPITALIST PROGRESS NOTE Patient: Joni Kwon : 1980: Age: 36 y.o. MedRec: [id number] Admission date: 05/07/2017 Hospital day # : [...] Procedure Component Value Units Date/Time Culture, MRSA [[id number]] Collected: 05/07/17 3946 Order Status: Completed Lab Status: Final result Updated: 05/08/17 1335 Specimen: Respiratory from Nares Culture Negative for [...] PPX: HSQ Dougie Yin MD 05/09/2017 7:57 [facility] Dougie Crawford MD - 05/08/2017 7:43 AM PST [facility] [place] HOSPITALIST PROGRESS NOTE Patient: Joni Kwon : 1980: Age: 36 y.o. MedRec: [id number] Admission date: 05/07/2017 Hospital day # : [...] significant change Confirmed by HAWA RUBIN MD ([id number]) on 05/08/2017 7:10:41 AM Basic Metabolic Panel [...] Procedure Component Value Units Date/Time Culture, MRSA [[id number]] Collected: 05/07/171730 Order Status: Sent Lab Status: [...] PPX: HSQ Dougie Yin MD 05/08/2017 7:43 [facility] Romelia Henry Pha rmD - 05/07/2017 4:17 [...] and directions X Pharmacy list names: [facility] [place] [facility] [place] [facility] [place] [employer] (Prescription Monitoring Program) X [employer] insurance reported [...] performed and electronically signed by Morenita García, Manager Information 05/07 16:12 Reviewed by Romelia Valdez, PharmD 05/07/2017 16:16 documented in thi s encounter H&P Notes Dougie Yin MD - 05/07/2017 4:38 PM PSTFormatting of this note might be different fr om the original. [place] HOSPITALIST HISTORY & PHYSICAL Patient: Joni Kwon : 1980: Age: 36 y.o. MedRec: [id number] Admission date: 05/07/2017 Hospital day # : 0 Physician author: Dougie Yin MD Today: 05/07/2017 CHIEF COMPLAINT: Nausea/Emesis HISTORY OF PRESENT ILLNESS: This is a 36 y.o. male with a history of DMI, Schizophrenia who presents with nausea and vo miting. The patient reports waking up in the morning and feeling nauseous. The patient lives across the street at [facility] and while walking to the hospital [...] resolution of DKA FEN: NPO PPX: HSQ [facility] Documentation I expect this patient will be hospitalized for greater than 2-midnights and expect the post -hospital plan to be discharge to home or to an adult foster home. Electronically signed by: Dougie Yin MD 05/07/2017 16:38 [facility] documented in this e ncounter ED Notes Vicky Méndez MD - 05/07/2017 1:06 PM PSTFormatting of this note might be diffe rent from the original. [facility] Joni Kwon Emergency Department Encounter Note [address] [place] [id number] PCP:Shavon Covington, DYED RAW STOCK BLOWER FEEDER [phone] CHIEF COMPLAINT: Chief Complaint Patient presents with Emesis ED Room: 452/2-[facility] Joni Kwon is a 36 y.o. male [...] mellitus (HCC) Type 1 diabetes Schizophrenia ([facility]) Past Surgical History: Procedure Laterality [...] Paul. 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 documented in this encounter Miscellaneous Notes [...] per their request. Brody Menendez CM from [facility] in [facility] and spoke to Joni this morning [...] for nausea, elevated blood sugar l evels. Loss Control Consultant visit was part of routine rounding. Spiritual Evaluation: Patient was a little groggy when I entered the room and introduced myself; he roused and wa s quite conversational. He is grateful for the care he is receiving while here, and asked me to pray for God's provision for a place to live. He is listed in the patient census as havi ng no buddhism preference, but his speech was indicative of some Confucianism background and v alues. Spiritual Interventions: I [...] was a ttempting to go back to [place] via the [place] [facility] the other day but was too charlee seous to go and ended up in our ER. He said that Brody Menendez, his CM from [facility] in [place], [place], was expecting to pick him up at [facility] to make arrangements for a [facility] in [place]. He said that until they had an apartment arranged for him he will stay wit h either family or friends. I obtained Joni's permission to call Brody Menendez and let hi m know that he is in the hospital and what his anticipated discharge plan is. I also obtain ed his permission to call his Mom. I called Brody ([phone]) and left a message requestin g a return call. I then called his Mom, Blossom Kwon ([phone]) and she said that she would be able to come pick him up and transfer him home after discharge [facility]. I let her know [...] the Discharge Summary to his PCP at ([phone]). Joni also said that he will need more strips for his glucom eter. He uses the [facility] pharmacy located in [place], [place]. He had no other questions or needs at this time. I will follow up tomorrow. Electronically signed by: Krystal Bradley RN 05/08/2017 14:15 I received a call from Brody Menendez from [facility] and he said that he would call Blossom cerna and coordinate a meeting for himself and Joni either tomorrow or Friday. He also sa id that he would assist with helping him make his follow up appointments with his PCP. Elec tronically signed by: Krystal Bradley RN 05/08/2017 17:07 [facility] - Tamika Killian RN - 05/08/2017 10:53 [...] SCD pumps, continuous education provided. [facility] - Casasndra Reeves RN - 05/08/2017 6:08 AM PSTProblem: [...] - 05/07/2017 4:34 PM PSTDischarge Planning: This SALT PLANT OPERATOR came to the ED to speak with Kamari. Kamari is a homeless gentleman, that is originally from [place]. He is currently living in [facility]. Kamari reports he is diabetic and has a glucometer @ the [facility] (not sure this is true because he could not report his blood glucose reading to the RN during t). He reports he has been in [facility] for his ADHD and Schizophrenia. Kamari reports [facility] cut him of f when of his mental health medications but he could not tell me which. Kamari's PCP is in [facility] as well. Kamari has not decided if he will stay in or return to [place]. His mother lives in [facility]. I explained to Kamari proper ED usage (which does not apply to him today as he will be admitte d for DKA). I offered assistance with a glucometer- he refused. I offered setting him up with a PCP in [place]- he refused. CM to follow up prior [...] ST. | [address] | [place], [place] | [phone] | | [facility] | | [address] | | | - LABORATORY | | [...] [address] | [place] | [phone] | | [facility] | | [address] | | | - LABORATORY | | [...] + | [facility] | [address] | [place] | [phone] | | [facility] | | [address] | | | - LABORATORY | | [...] | mL/min/1.73m2 | [facility] | | | [place] | RATE,ESTIMATED | | MEDICAL | | | | mL/min/1.46c1Jsso than | | CENTER - | | [...] [address] | [place] | [phone] | | [facility] | | [address] | | | - LABORATORY | | [address] | [place] | [phone] | | [facility] | | [address] | | | - LABORATORY | | [...] [address] | [place] | [phone] | | [facility] | | [address] | | | - LABORATORY | | [...] [address] | [place] | [phone] | | [facility] | | [address] | | | - LABORATORY | | [...] 16 | 7 - 18 mg/dL | [facility] | | | | | | [facility] | | | | | | MEDICAL | | | | | | CENTER - | | | | | | LABORATORY | | + + + + + + | Creatinine | 0.82 | 0.60 - 1.30 | [facility] | | | | | mg/dL | [facility] | | | | | | MEDICAL | | | | | | CENTER - | | | | | | LABORATORY | | + + + + + + | eGFR, | >60Comment: GLOMERULAR | >=60 | [facility] | | | non- | FILTRATION | mL/min/1.73m2 | [facility] | | | [place] | RATE,ESTIMATED | | MEDICAL | | | | mL/min/1.04t1Czps than | | CENTER - | | [...] + | [facility] | [address] | [place] | [phone] | | [facility] | | [address] | | | - LABORATORY | | [...] mL/min/1.73m2 | [facility] | | | [place] | RATE,ESTIMATED | | MEDICAL | | | | mL/min/1.57b6Rjqu than | | CENTER - | | [...] ST. | [address] | [place] | [phone] | | [facility] | | [address] | | | - LABORATORY | | [...] [address] | [place] | [phone] | | [facility] | | [address] | | | - LABORATORY | | [...] + | [facility] | [address] | [place] | [phone] | | [facility] | | [address] | | | - LABORATORY | | [...] [address] | [place] | [phone] | | [facility] | | [address] | | | - LABORATORY | | [...] [address] | [place] | [phone] | | [facility] | [...] + | [facility] | [address] | [place] | [phone] | | [facility] | | [address] | | | - LABORATORY | | [...] | mL/min/1.73m2 | [facility] | | | [place] | RATE,ESTIMATED | | MEDICAL | | | | mL/min/1.12w2Lvnp than | | CENTER - | | [...] [address] | [place] | [phone] | | [facility] | | [address] | | | - LABORATORY | | [...] [address] | [place] | [phone] | | [facility] | | [address] | | | - LABORATORY | | [...] [address] | [place] | [phone] | | [facility] | | [address] | | | - LABORATORY | | [...] [address] | [place] | [phone] | | [facility] | | [address] | | | - LABORATORY | | [...] mL/min/1.73m2 | [facility] | | | [place] | RATE,ESTIMATED | | MEDICAL | | | | mL/min/1.96y8Huac than | | CENTER - | | [...] [address] | [place] | [phone] | | [facility] | | [address] | | | - LABORATORY | | [...] [address] | [place] | [phone] | | [facility] | | [address] | | | - LABORATORY | | [...] | | Eosinophils | | K/uL | [facility] | | | | | | [...] + | [facility] | [address] | [place] | [phone] | | [facility] | | [address] | | | - LABORATORY | | [...] + | [facility] | [address] | [place] | [phone] | | [facility] | | [address] | | | - LABORATORY | | [...] [address] | [place] | [phone] | | [facility] | | [address] | | | - LABORATORY | | [...] + | [facility] | [address] | [place] | [phone] | | [facility] | | [address] | | | - LABORATORY | | [...] [address] | [place] | [phone] | | [facility] | | [address] | | | - LABORATORY | | [...] [address] | [place] | [phone] | | [facility] | | [address] | | | - LABORATORY | | [...] (H) | 7 - 18 mg/dL | [facility] | | | | | | [facility] | | | | | | MEDICAL | | | | | | CENTER - | | | | | | LABORATORY | | + + + + + + | Creatinine | 1.18 | 0.60 - 1.30 | [facility] | | | | | mg/dL | [facility] | | | | | | MEDICAL | | | | | | CENTER - | | | | | | LABORATORY | | + + + + + + | eGFR, | >60Comment: GLOMERULAR | >=60 | [facility] | | | non- | FILTRATION | mL/min/1.73m2 | [facility] | | | [place] | RATE,ESTIMATED | | MEDICAL | | | | mL/min/1.33n0Vbdr than | | CENTER - | | [...] + | [facility] | [address] | [place] | [phone] | | [facility] | | [address] | | | - LABORATORY | | [...] ST. | [address] | [place], [place] | [phone] | | [facility] | | [address] | | | - LABORATORY | | [...] [address] | [place] | [phone] | | [facility] | | [address] | | | - LABORATORY | | [...] + | [facility] | [address] | [place] | [phone] | | [facility] | | [address] | | | - LABORATORY | | [...] mL/min/1.73m2 | [facility] | | | [place] | RATE,ESTIMATED | | MEDICAL | | | | mL/min/1.11j9Kaun than | | CENTER - | | [...] [address] | [place] | [phone] | | [facility] | | [address] | | | - LABORATORY | | [...] [address] | [place] | [phone] | | [facility] | | [address] | | | - LABORATORY | | [...] + | [facility] | [address] | [place] | [phone] | | [facility] | | [address] | | | - LABORATORY | | [...] [address] | [place] | [phone] | | [facility] | | [address] | | | - LABORATORY | | [...] eGFR, | 42 (L)Comment: | >=60 | [facility] | | | non- | GLOMERULAR FILTRATION | mL/min/1.73m2 | [facility] | | | [place] | RATE,ESTIMATED | | MEDICAL | | | | mL/min/1.15n1Wevn than | | CENTER - | | [...] [address] | [place] | [phone] | | [facility] | | [address] | | | - LABORATORY | | [...] + | [facility] | [address] | [place] | [phone] | | [facility] | | [address] | | | - LABORATORY | | [...] | | | | HAWA RUBIN MD ([id number]) | | | | | | on [...] [address] | [place] | [phone] | | [facility] | | [address] | | | - LABORATORY | | [...] [address] | [place] | [phone] | | [facility] | | [address] | | | - LABORATORY | | [...] [address] | [place] | [phone] | | [facility] | | [address] | | | - LABORATORY | | [...] [address] | [place] | [phone] | | [facility] | | [address] | | | - LABORATORY | | [...] 1.69 (H) | 0.60 - 1.30 | [facility] | | | | | mg/dL | [facility] | | | | | | MEDICAL | | | | | | CENTER - | | | | | | LABORATORY | | + + + + + + | eGFR, | 46 (L)Comment: | >=60 | [facility] | | | non- | GLOMERULAR FILTRATION | mL/min/1.73m2 | [facility] | | | [place] | RATE,ESTIMATED | | MEDICAL | | | | mL/min/1.43g5Diya than | | CENTER - | | [...] + | [facility] | [address] | [place] | [phone] | | [facility] | | [address] | | | - LABORATORY | | [...] + | [facility] | [address] | [place] | [phone] | | [facility] | | [address] | | | - LABORATORY | | [...] [address] | [place] | [phone] | | [facility] | | [address] | | | [...] + | [facility] | [address] | [place] | [phone] | | [facility] | | [address] | | | - LABORATORY | | [...] | | | | | NPO, Daytime 7692-8453 Use NIGHT | | | | | | | DOSE for doses scheduled: | | | | | | | HS, 3AM, Nighttime 6066-8694, | | | | | | + [...]
--- OUTSIDE RECORDS SUMMARY | ~2020-04-12 | XMS | Encounter Summary ---
Demographics + + + | Address | [address] | | | [place] [address] | + + + | Home Phone [...] Team Providers + +------+ + | Care Cotton Opener Name | Role | Phone | + [...] + + | 10/03/ | Hospital | [facility] | Edgar Nunez, | Diabetic | | 2017 - | Encounter | [facility] ICU [address] | MD [address] | ketoacidosis without | | | | [place], | [place], [place] | coma associated | | 10/04/ | | [place] [address] | [id number] | with type 1 diabetes | | 2017 | | [phone] | | mellitus (HCC) | | | | | Efren Burnham P, | (Primary Dx); | | | | | DO [address] | Hyperkalemia; Acute | | | | | [place] LLH21 [place], | kidney injury (HCC); | | | | | [place] [address] | Acute hyperkalemia; | | | | | [phone] | Acute renal | | | | [...] type | | | | | | ([facility]LY [facility]); Sensation of | | | | | [...] and then week later was admitted at [facility] for the DKA a s [...] signed by: Siddhartha Pierson MD, 10/04/2016 8:33 [facility] documented in this encounter Discharge Instructions Instructions [...] resources below can help you learn more: [employer] [email or web address].[email or web address] [facility] [email or web address].[email or web address] National Eye [phone] [email or web address].nei.nih.gov Hormone Health [phone] www.[email or web address] Date Last Reviewed: 10/22/201519995251-6460 [employer]. [address] [place] [address], [place] [address]. All righ ts reserved. This information is [...] bimart garcia and [facility] garcia [x] [facility] LEARNING AND DEVELOPMENT ASSISTANT (Prescription Monitoring Program) [x] [employer] insurance reported [...] performed and electronically signed by Morenita García, Solar Systems Designer 7 19:25 Reviewed by: Hannah Mijares PHARMD 10/03/2016 19:41 documented in this encounter H&P Notes Efren Burnham DO - 10/03/2016 6:09 AM PDTFormatting of this note might be different f rom the original. [facility] HISTORY & PHYSICAL Patient: Joni Kwon : 1980: Age: 35 y.o. MedRec: [id number] PCP: DENIS Paul Admission date: 10/03/2016 Hospital [...] last month, he was admitted here at [place] from 09/26 through and then week later was admitted at [facility] for the DKA as well. Drein g [...] CKTOTAL No results for input(s): PHART, PO2ART, ANI3ULR, LDD2WFA, BEART, E4QIWUPG in the last 168 h ours. Recent [...] Nunez patient used to live in a detention in [place] and was doing much better then with his diabetes control. She told Dr. Nunez that she is unable to take care of him at this point. - since this is patient's 3rd admission to the hospital for DKA, patient is high risk to re turning back to his previous living situation. - will obtain case management consult for placement in a detention again. Nausea and vomiting in adult - [...] signed by: Efren Burnham DO 10/03/2016 6:09 [facility] Dot phrase reference: VSHOSP (VS in table, last 24 hours) MEYLAB (various labs to pull in) DT (date and time) LABRCNTIP[K:3,Na:3 (last 3 sets of labs using potassium and sodium as examples) HGB HCT PLT INR GLU POCGLU Na K BUN CREA, CALCIUM TROPONINI BNP DIGOXIN Portions of this chart may have been created with PAIEON voice recognition software. Occasi onal wrong-word or [...] Patient was admitted 2 weeks ago to [facility] for DKA and one week ago to [facility] for DKA. He is a poorly controlled diabetic who has difficul ty with medical compliance. He reports that tonight he woke up after falling asleep around 5 p.m. and was having nauseousness and pain radiating through his chest to his back. He was a lso having rapid breathing. Blood sugar was high. He lives in [facility]. His mother blake ried to drive him here and stopped in Transfer to have paramedics transfer him to [facility]. He has not had any fevers. He [...] by me Rhythm: Sinus tachycardia Rate: [address] [place]: normal Ectopy: none Conduction: normal ST Segments: [...] with compliance. Pt contacted mother who will filler picker pt after d ischarge. VSS, no distress, all questions answered, ambulatory off unit, pt had no further q uestions lan of Codi Vitale RN - 10/04/2016 9:23 AM PDTBriefly revisited with Joni regarding his discharge and living situation. He states he lives with his sister and his mom in [place], he has discharge orders and redmond s [...] He reports he lives with family in [place]. He also reports he is independent with all of his ADL's, he does not use any DME, oxygen or CPAP. His PCP is Shavon Covington and he uses [facility]. He is unsure of what discharge needs he might have. During our conversation, he was very s oft spoken and kept his eyes closed. Admitting provider placed CM consult for placement into a detention, will revisit with Kamari gardiner at another [...] + | [facility] | [address] | [place] | [phone] | | [facility] | | [address] | | | - LABORATORY | | [...] + | [facility] | [address] | [place], [place] | [phone] | | [facility] | | [address] | | | - LABORATORY | | [...] mL/min/1.73m2 | [facility] | | | [place] | RATE,ESTIMATED | | MEDICAL | | | | mL/min/1.74t6Tzns than | | CENTER - | | [...] [address] | [place] | [phone] | | [facility] | | [address] | | | - LABORATORY | | [...] + | [facility] | [address] | [place], [place] | [phone] | | [facility] | | [address] | | | - LABORATORY | | [...] [address] | [place] | [phone] | | [facility] | | [address] | | | - LABORATORY | | [...] ST. | [address] | [place], [place] | [phone] | | [facility] | | [address] | | | - LABORATORY | | [...] [address] | [place] | [phone] | | [facility] | | [address] | | | - LABORATORY | | [...] + | [facility] | [address] | [place] | [phone] | | [facility] | | [address] | | | - LABORATORY | | [...] [address] | [place] | [phone] | | [facility] | | [address] | | | - LABORATORY | | [...] [address] | [place] | [phone] | | [facility] | | [address] | | | - LABORATORY | | [...] 16 | 7 - 18 mg/dL | [place] | | | | | | [facility] | | | | | | MEDICAL | | | | | | CENTER - | | | | | | LABORATORY | | + + + + + + | Creatinine | 1.00 | 0.60 - 1.30 | [facility] | | | | | mg/dL | [facility] | | | | | | MEDICAL | | | | | | CENTER - | | | | | | LABORATORY | | + + + + + + | eGFR, | >60Comment: GLOMERULAR | >=60 | [facility] | | | non- | FILTRATION | mL/min/1.73m2 | [facility] | | | [place] | RATE,ESTIMATED | | MEDICAL | | | | mL/min/1.43x9Cawu than | | CENTER - | | [...] + | [facility] | [address] | [place] | [phone] | | [facility] | | [address] | | | - LABORATORY | | [...] | | | | | | [employer] | | | | | [...] + | [facility] | [address] | [place] | [phone] | | [facility] | | [address] | | | - LABORATORY | | [...] [address] | [place] | [phone] | | [facility] | | [address] | | | - LABORATORY | | [...] [address] | [place] | [phone] | | [facility] | | [address] | | | - LABORATORY | | [...] + | [facility] | [address] | [place] | [phone] | | [facility] | | [address] | | | - LABORATORY | | [...] ST. | [address] | [place] | [phone] | | [facility] | | [address] | | | - LABORATORY | | [...] [address] | [place] | [phone] | | [facility] | | [address] | | | - LABORATORY | | [...] | 0.93 | 0.60 - 1.30 | [facility] | | | | | mg/dL | [facility] | | | | | | MEDICAL | | | | | | CENTER - | | | | | | LABORATORY | | + + + + + + | eGFR, | >60Comment: GLOMERULAR | >=60 | [facility] | | | non- | FILTRATION | mL/min/1.73m2 | [facility] | | | [place] | RATE,ESTIMATED | | MEDICAL | | | | mL/min/1.00l1Zfji than | | CENTER - | | [...] [address] | [place] | [phone] | | [facility] | | [address] | | | - LABORATORY | | [...] ST. | [address] | [place], [place] | [phone] | | [facility] | | [address] | | | - LABORATORY | | [...] [address] | [place] | [phone] | | [facility] | | [address] | | | [address] | [place] | [phone] | | [facility] | | [address] | | | - LABORATORY | | [address] | [place] | [phone] | | [facility] | | [address] | | | - LABORATORY | | [...] | | Hydroxybuty | | mmol/L | [facility] | | | rate | | [...] [address] | [place] | [phone] | | [facility] | | [address] | | | - LABORATORY | | [...] 1.39 (H) | 0.60 - 1.30 | [place] | | | | | mg/dL | [facility] | | | | | | MEDICAL | | | | | | CENTER - | | | | | | LABORATORY | | + + + + + + | eGFR, | 58 (L)Comment: | >=60 | [place] | | | non- | GLOMERULAR FILTRATION | mL/min/1.73m2 | [facility] | | | [place] | RATE,ESTIMATED | | MEDICAL | | | | mL/min/1.22z8Yygz than | | CENTER - | | [...] + | [facility] | [address] | [place] | [phone] | | [facility] | | [address] | | | - LABORATORY | | [...] | | | | | | [employer] | | | | | [...] + | [facility] | [address] | [place] | [phone] | | [facility] | | [address] | | | - LABORATORY | | [...] [address] | [place] | [phone] | | [facility] | | [address] | | | - LABORATORY | | [...] + | [facility] | [address] | [place] | [phone] | | [facility] | | [address] | | | - LABORATORY | | [...] [address] | [place] | [phone] | | [facility] | | [address] | | | - LABORATORY | | [...] [address] | [place] | [phone] | | [facility] | | [address] | | | - LABORATORY | | [...] | | | | HAWA RUBIN MD ([id number]) | | | | | | on [...] | Excess, | | mmol/L | [facility] | | | Extracellul | | | [...] + | [facility] | [address] | [place] | [phone] | | [facility] | | [address] | | | - LABORATORY | | [...] ST. | [address] | [place] | [phone] | | [facility] | | [address] | | | - LABORATORY | | [...] [address] | [place] | [phone] | | [facility] | | [address] | | | - LABORATORY | | [...] ST. | [address] | [place] | [phone] | | [facility] | | [address] | | | - LABORATORY | | [...] | | | | | | [employer] | | | | | [...] [facility]. | [address] | [place] | [phone] | | [facility] | | [address] | | | - LABORATORY | | [...] + | [facility] | [address] | [place] | [phone] | | [facility] | | [address] | | | - LABORATORY | | [...] + | [facility] | [address] | [place] | [phone] | | [facility] | | [address] | | | - LABORATORY | | [address] | [place] | [phone] | | [facility] | | [address] | | | - LABORATORY | | [...] eGFR, | 31 (L)Comment: | >=60 | [facility] | | | non- | GLOMERULAR FILTRATION | mL/min/1.73m2 | [facility] | | | [place] | RATE,ESTIMATED | | MEDICAL | | | | mL/min/1.68l7Jwjf than | | CENTER - | | [...] [address] | [place] | [phone] | | [facility] | | [address] | | | - LABORATORY | | [...] [address] | [place] | [phone] | | [facility] | | [address] | | | - LABORATORY | | [...] | | | | Blood Sugar, Starting [facility] 10/03/16 | | PM PDT | [...] | | | (after last modification) on [facility] | | | | | | [...] | | | | | NPO, Daytime [id number] Use NIGHT | | | | | | | DOSE for doses scheduled: | | | | | | | HS, 3AM, Nighttime 6064-5905, | | | | | | + [...] | | | MEALS, First dose on [facility] 10/03/16 | | | | | [...] | | | | | TITRATED, Starting [facility] 10/03/16 at | | | | [...] | | | | | ONCE, [facility] 10/03/16 at 0405, For 1 | [...] PM PDT | | | | | [facility] 10/03/16 at 0510 | | | [...]
--- OUTSIDE RECORDS SUMMARY | ~2020-04-12 | XMS | Encounter Summary ---
Demographics + + + | Address | [address] | | | [place] [address] | + + + | Home Phone | | + + + | Preferred Language | Unknown | + + + | Marital Status | Single | + + + | Rastafari Affiliation | 1001 | + + + | Race | White | + + + | Ethnic Group | Not or | + + + Author + + + | Author | [facility] | | | and Ryana | + + + | Organization | [facility] | | [...] Team Providers + +------+ + | Care Emblem Cutter Name | Role | Phone | [...] | | | | | ([facility]) | | | +--------+--------+ + + + + Encounter Details +--------+ + + + + | Date | Type | Department | Care Team | Description | +--------+ + + + + | 05/01/ | Hospital | [facility] | Venkatesh Gomez, | Diabetic | | 2017 - | Encounter | MED CTR SURGICAL | [address] | ketoacidosis without | | | | [address] [place] | [facility] [place] | coma associated | | 05/03/ | | [place] [address] | [place] [address] | with type 1 diabetes | | 2017 | | [phone] | [phone] | mellitus (HCC) | | | | | | (Primary Dx) | | | | | Juanjose Ross MD | | | | | | [address] | | | | | | [place], [place] | | | | | | [address] | | | | | | | | | | | | Kevin Gifford MD | | | | | | [address] | | | | | | [place], [place] | | | | | | [address] | | | | | | | [...] might be different fro m the original. [place], [place] HOSPITALIST DISCHARGE SUMMARY Pt. Name/Age/: Joni [...] [facility] has haydee garcia living at [facility] past month and not have [...] here (at least 50 needles) [facility]ves at [facility] Most recent weight: Input and output for [...] signed by: Kevin Gifford MD, 05/03/2017 11:48 [facility] Reference. This is NOT part of [...] this chart may have been created with [employer] voice recognition software. Occasi onal wrong-word or [...] cannot be sent through Care Everywhere.Diabetes, Diet (Rwandan)Diabetes, General Information (Rwandan)Diabetes, Healthy Meals for (Rwandan)Diabete s, Meal Planning (Rwandan)Diabetes: Shopping for and Preparing Meals (Rwandan)documented in this encounter Medications at Time of [...] might be different fro m the original. [place], [place] HOSPITALIST PROGRESS NOTE Patient: Joni Kwon : 1980: Age: 36 y.o. MedRec: [id number] PCP: DENIS Paul Admission date: 05/01/2017 Hospital [...] for input(s): IRON, TIBC, PCTSAT, FERRITIN, TSH, [id number], FOLATE in the last 168 hours. Inflammatory [...] 57.1* HCO3 21.8 TCO2 22.9 BEART -3.0* [id number] 89* Drug of overdose and abuse Recent [...] Procedure Component Value Units Date/Time Culture, MRSA [[id number]] Collected: 05/02/17 0202 Order Status: Completed Lab [...] [facility] has b een living at [facility] past month and not have [...] here (at least 50 needles) LIves at [facility] (dot meyaddendum tdnorefesh nownorefresh) (dot meytime meycritical meysign) Kevin Gifford MD 05/03/2017 11:27 [facility] Reference. This is NOT part of [...] this chart may have been created with [employer] voice recognition software. Occasi onal wrong-word or sound-alike substitutions may have occurred due to the inherent renee itations of voice recognition software. Please read the chart carefully and recognize, using context, where these substitutions have occurred ol, Cody Young [facility] - 05/02/2017 4:32 PM PST PHARMACY SERVICES: [...] directions X Pharmacy list names: [facility] [place] X Care Everywhere X Outside Information Vaccines [...] Prior to Admission Sig: Patient taking differently TERMITE CONTROL SERVICER as: Insulin Lispro 100 units/mL inj 5 units under the skin three times daily -Unable to verify sliding scale 3 units under the skin three times daily -Patient has no fill history within t he last 4 months Medication review performed and electronically signed by Lawanda Owen, Synthetic Department Supervisor 16:19 Electronically signed by: Cody Lawler RPH 05/02/2017 16:31 Kevin Colon MD - 05/02/2017 6:47 AM PST [facility] [place] HOSPITALIST PROGRESS NOTE Patient: Joni Kwon : 1980: Age: 36 y.o. MedRec: [id number] PCP: DENIS Paul Admission date: 05/01/2017 Hospital [...] for input(s): IRON, TIBC, PCTSAT, FERRITIN, TSH, [id number], FOLATE in the last 168 hours. Inflammatory [...] 57.1* HCO3 21.8 TCO2 22.9 BEART -3.0* [id number] 89* Drug of overdose and abuse Recent [...] Procedure Component Value Units Date/Time Culture, MRSA [[id number]] Collected: 05/02/17201 Order Status: Sent Lab Status: [...] [facility] has b eetyler living at [facility] past month and not have [...] his pens uses [facility] LIves at [facility] (dot meyaddendum tdnorefesh nownorefresh) (dot meytime meycritical meysign) Kevin Gifford MD 05/02/2017 6:48 [facility] Reference. This is NOT part of [...] this chart may have been created with [employer] voice recognition software. Occasi onal wrong-word or sound-alike substitutions may have occurred due to the inherent renee itations of voice recognition software. Please read the chart carefully and recognize, using context, where these substitutions have occurred documented in this en counter H&P Notes Juanjose Ross MD - 05/02/2017 1:06 AM PST [facility] HISTORY AND PHYSICAL Pt. [...] signed by: Juanjose Ross MD 05/02/2017 2:07 [facility] documented in this enc ounter Consult [...] he is homeless and staying at the [facility] somet imes his meals are unpredictable. They [...] might be different f rom the original. [facility] Joni Brown Doyle Emergency Department Encounter Note [address] [place] [address] PCP:Shavon Covington, TAPE SEWER [phone] CHIEF COMPLAINT Chief Complaint Patient presents [...] (HCC) Type 1 diabetes Schizophrenia ([facility]) SURGICAL HISTORY Past Surgical History: [...] teaching. Pt he is going back to senior living today, mother is planning to c ome pick him up shortly. IV removed. Pt has all paperwork. Will continue to monitor. Call [facility] within reach. lan of Care - [...] plan. He has been staying at the [facility] for about 1/2 month and is allowed [...] Diallo, at the walk in clinic in [place], and that it has been 2 months ago that he has seen her. He does not wish this CM to make an appt sin e he is not sure when he could get there. He is working with [employer] in [place] to find housing. Assisted him to leave a message t here with his payee, Lauren Damonacruz, at [employer], p# [phone]. He also requested that t his CM contact his mother to let her know that he is here and that he wishes to talk with he r. Called [phone], and spoke with Ms Kwon, and let her know that Kamari was here and she wanted to know what room he was in, so will either call or come and visit him today. Called Ursula, Nailer Operator, and she brought up some pen tips for patient and also a glu cometer with 10 strips. Let him know that his mother will either call or visit him today. Went over the" Where to go for Help" brochure with patient and highlighted the resources fo r meals and pantry's. He really appreciated this information. He will just be walking back to the [facility] at discharge. CM to follow for any [...] J?MRN: | | | | | | [id number] | | | [id number] | | | his | | | [...] | | | St. | | | [place] | | | y | | | [...] | | | St. | | | [place] | | | y | | | [...] | | | St. | | | [place] | | | y H. | | [...] | | | St. | | | [place] | | | y H. | | [...] | | | St. | | | [place] | | | y H. | | [...] | | | St. | | | [place] | | | y H. | | [...] | | | St. | | | [place] | | | y H. | | [...] | | | St. | | | [place] | | | y | | | [...] | | | ext. | | | [address] | | | or go | | [...] [address] | [place] | [phone] | | [facility] | | [address] | | | - LABORATORY | | [...] + | [facility] | [address] | [place] | [phone] | | [facility] | | [address] | | | - LABORATORY | | [...] mL/min/1.73m2 | [facility] | | | [place] | RATE,ESTIMATED | | MEDICAL | | | | mL/min/1.37b0Vcmh than | | CENTER - | | [...] [address] | [place] | [phone] | | [facility] | | [address] | | | - LABORATORY | | [...] + | [facility] | [address] | [place] | [phone] | | [facility] | | [address] | | | - LABORATORY | | [...] + | [facility] | [address] | [place] | [phone] | | [facility] | | [address] | | | - LABORATORY | | [...] ST. | [address] | [place], [place] | [phone] | | [facility] | | [address] | | | - LABORATORY | | [...] [address] | [place] | [phone] | | [facility] | | [address] | | | - LABORATORY | | [...] + | [facility] | [address] | [place] | [phone] | | [facility] | | [address] | | | - LABORATORY | | [...] + | [facility] | [address] | [place], [place] | [phone] | | [facility] | | [address] | | | - LABORATORY | | [...] + | [facility] | [address] | [place] | [phone] | | [facility] | | [address] | | | - LABORATORY | | [...] mL/min/1.73m2 | [facility] | | | [place] | RATE,ESTIMATED | | MEDICAL | | | | mL/min/1.50z2Wfio than | | CENTER - | | [...] [address] | [place] | [phone] | | [facility] | | [address] | | | - [...] [address] | [place] | [phone] | | [facility] | | [address] | | | - LABORATORY | | [...] + | [facility] | [address] | [place] | [phone] | | [facility] | | [address] | | | - LABORATORY | | [...] ST. | [address] | [place], [place] | [phone] | | [facility] | | [address] | | | - LABORATORY | | [...] [address] | [place] | [phone] | | [facility] | | [address] | | | - LABORATORY | | [...] | 1.08 | 0.60 - 1.30 | [facility] | | | | | mg/dL | [facility] | | | | | | MEDICAL | | | | | | CENTER - | | | | | | LABORATORY | | + + + + + + | eGFR, | >60Comment: GLOMERULAR | >=60 | [facility] | | | non- | FILTRATION | mL/min/1.73m2 | [facility] | | | [place] | RATE,ESTIMATED | | MEDICAL | | | | mL/min/1.41g9Hlyi than | | CENTER - | | [...] [address] | [place] | [phone] | | [facility] | | [address] | | | - LABORATORY | | [...] + | [facility] | [address] | [place] | [phone] | | [facility] | | [address] | | | - [...] + | [facility] | [address] | [place] | [phone] | | [facility] | | [address] | | | - LABORATORY | | [...] [address] | [place] | [phone] | | [facility] | | [address] | | | - LABORATORY | | [...] - 1.030 | [facility] | | | [place], | | | [facility] | | [...] [address] | [place] | [phone] | | [facility] | | [address] | | | - LABORATORY | | [...] [address] | [place] | [phone] | | [facility] | | [address] | | | - LABORATORY | | [...] + | [facility] | [address] | [place] | [phone] | | [facility] | | [address] | | | - LABORATORY | | [...] [address] | [place] | [phone] | | [facility] | | [address] | | | - LABORATORY | | [...] [address] | [place] | [phone] | | [facility] | | [address] | | | - [...] | 1.25 | 0.60 - 1.30 | [facility] | | | | | mg/dL | [facility] | | | | | | MEDICAL | | | | | | CENTER - | | | | | | LABORATORY | | + + + + + + | eGFR, | >60Comment: GLOMERULAR | >=60 | [facility] | | | non- | FILTRATION | mL/min/1.73m2 | [facility] | | | [place] | RATE,ESTIMATED | | MEDICAL | | | | mL/min/1.81j7Teym than | | CENTER - | | [...] [address] | [place] | [phone] | | [facility] | | [address] | | | - LABORATORY | | [...] [address] | [place] | [phone] | | [facility] | | [address] | | | - LABORATORY | | [...] [address] | [place] | [phone] | | [facility] | | [address] | | | - LABORATORY | | [...] | | | | | | | [phone] Use NIGHT DOSE for | | | | | | | doses scheduled: HS, 3AM, | | | | | | | Nighttime 7941-7756, | | | | | | + [...] | | | | | | | 1744-9486 Use NIGHT DOSE for | | | | | | | doses scheduled: HS, 3AM, | | | | | | | Nighttime 3322-3855, | | | | | | + [...] | | | | | NPO, Daytime 1715-5807 Use NIGHT | | | | | | | DOSE for doses scheduled: | | | | | | | HS, 3AM, Nighttime 0440-6838, | | | | | | + [...]
--- OUTSIDE RECORDS SUMMARY | ~2020-04-12 | XMS | Encounter Summary ---
Demographics + + + | Address | [address] | | | [place] [address] | + + + | Home Phone [...] Team Providers + +------+ + | Care Command And Control Name | Role | Phone | + [...] - | Encounter | [facility] | [address] [place] [address] | | | | | [place], [place] | [place] [address] | | | 12/21/ | | [address] | [phone] | | | 1999 | | [phone] | | | +--------+ + + + [...]
--- OUTSIDE RECORDS SUMMARY | ~2020-04-12 | XMS | Encounter Summary ---
Demographics + + + | Address | [address] | | | [place] [address] | + + + | Home Phone [...] Team Providers + +------+ + | Care Rf Engineer Name | Role | Phone | + +------+ + PCP | Unavailable | + +------+ + Encounter Details +--------+ + + + + | Date | Type | Department | Care Team | Description | +--------+ + + + + | 08/23/ | Hospital | [facility] | Shivam Bustos MD | | | 2003 | Encounter | [address] | [address] | | | | | [place], [place] | FAMILY MEDICINE | | | | | [address] | [place] [address] | | | | | [phone] | | | +--------+ + + + [...]
--- OUTSIDE RECORDS SUMMARY | ~2020-04-12 | XMS | Encounter Summary ---
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
--- OUTSIDE RECORDS SUMMARY | ~2020-04-12 | XMS | Encounter Summary ---
Demographics + + + | Address | [address] | | | [place] [address] | + + + | Home Phone [...] Team Providers + +------+ + | Care Hopper Filler Name | Role | Phone | [...] [address] | | | | | | [place], [place] | | | | | | [address] | | | | | | [phone] | | | +--------+ + + + [...] [address] | [place] | [phone] | | [facility] | | [address] | | | - LABORATORY | | | | + + + + + documented in this encounter Visit Diagnoses Not on filedocumented in this encounter"
--- OUTSIDE RECORDS SUMMARY | ~2020-04-12 | XMS | Encounter Summary ---
Demographics + + + | Address | [address] | | | [place] [address] | + + + | Home Phone [...] Team Providers + +------+ + | Care Furniture Detailer Name | Role | Phone | + [...] + + | 03/02/ | Emergency | [facility] | Izabela Scott, | Localized bacterial | | 2019 - | | MEDICAL CENTER | MD [address] | skin infection | | | | EMERGENCY CENTER | [place] [address] | (Primary Dx); | | 03/03/ | | [address] | [phone] | Hyperglycemia; | | 2019 | | [place], [place] | | Essential | | | | [address] | | hypertension | | | | [phone] | | | +--------+ + + + [...] Care Everywhere.Staph Skin Infe ction, Possible MRSA (Azeri)documented in this encounter Medications at Time [...] be different fr om the original. [facility] Department of Emergency Medicine No flowsheet data [...] file Gets together: Not on file Attends shinto service: Not on file Active member of [...] 1 g (0 g Intravenous Stopped 03/02/20 9973) sodium chloride 0.9% (NS) bolus 1,000 mL [...] Value Ref Range Date/Time Comprehensive Metabolic Panel [[id number]] (Abnormal) Collected: 03/02/202209 Order Status: Completed Specimen: [...] Estimated GFR >60 >60 mL/min/1.73m2 C-Reactive Protein [[id number]] (Abnormal) Collected: 03/02/202209 Order Status: Completed Specimen: Blood Updated: 03/02/202311 CRP 4.0 <0.5 mg/dL CBC with Differential [[id number]] (Abnormal) Collected: 03/02/202209 Order Status: Completed Specimen: [...] soon as possible for a visit with [facility]. Specialty: Family Medicine Contact information: [address] [facility] [address] [facility]. Specialty: Emergency Medicine Why: If symptoms worsen Contact information: [address] [facility] [address] Procedures: Procedures Attending Provider Note: [...] J?MRN: | | | | | | [id number] | | | [id number] | | | riteri | | | [...] | | | St. | | | [place] | | | y | | | [...] | | | St. | | | [place] | | | y | | | [...] | | | St. | | | [place] | | | y | | | [...] | | | St. | | | [place] | | | y | | | [...] | | | St. | | | [place] | | | y | | | [...] | | | ags | | | [place] | | | ED | | | Dispar | | | ity | | | Measur | | | e - | | | [place] | | | has | | | [...] | | | s. | | | [place] | | | | | | Health [...] | | | By: | | | [place] | | | | | | Health [...] | | | St. | | | [place] | | | y | | | [...] | | | St. | | | [place] | | | y H. | | [...] | | | St. | | | [place] | | | y H. | | [...] | | | St. | | | [place] | | | y H. | | [...] otitis | | | | | | coordinator skill training program | | | a, | | | [...] | | | St. | | | [place] | | | y H. | | [...] | | | St. | | | [place] | | | y H. | | [...] | | | St. | | | [place] | | | y H. | | [...] | | | St. | | | [place] | | | y H. | | [...] | | | St. | | | [place] | | | y H. | | [...] | | | St. | | | [place] | | | y H. | | [...] | | | St. | | | [place] | | | y H. | | [...] | | | [place] | | | Cnc Machine Programmer | | | al | | | [...] | | | MD | | | Cnc Machine Programmer | | | al | | | [...] [facility];[address] | | LABORATORY | | | | [address];[place] | | | | | | [address] | | | | + + + + + + + + | Specimen | + + | Blood | + + + + + + + | Performing | Address | City/State/Zipcode | Phone Number | | Organization | | | | + + + + + | [facility] | [address] | [place] [address] | [phone] | + + + + + Comprehensive [...] [place];[address] | | | | | | [address];[place], [place] | | | | | | [address] | | | | + + + + + + + + | Specimen | + + | Blood | + + + + + + + | Performing | Address | City/State/Zipcode | Phone Number | | Organization | | | | + + + + + | [facility] | [address] | [place] [address] | [phone] | + + + + + CBC [...] | | Absolute | performed at [facility];[address] | K/uL | LABORATORY | | | | [address];[place] | | | | | | [address] | | | | + + + + + + + + | Specimen | + + | Blood | + + + + + + + | Performing | Address | City/State/Zipcode | Phone Number | | Organization | | | | + + + + + | [facility] | [address] | [place] [address] | [phone] | + + + + + documented [...]
--- OUTSIDE RECORDS SUMMARY | ~2020-04-12 | XMS | Encounter Summary ---
Demographics + + + | Address | [address] | | | [place] [address] | + + + | Home Phone [...] Providers + +------+ + | Care Wood Buffer Name | Role | Phone | [...] + + | 05/07/ | Emergency | [facility] | Adi Castro | Vomiting, | | 2017 | | MED CTR EMERGENCY | Alexander Craig MD | intractability of | | | | CENTER [address] | [address] | vomiting not | | | | [place], [place] | [place], [place] | specified, presence | | | | [address] | [address] | of nausea not | | | | [phone] | | specified, | | | | [...] 05/07/2017 7:35 AM PST [facility] Joni Kwon Emergency Department Encounter Note [address] [place] [address] PCP:DENIS Paul [phone] eMERGENCY dEPARTMENT eNCOUnter CHIEF [...] deficits noted, no facial assymetry noted. Equal regrader in all extremities ED COURSE & MEDICAL [...] this chart may have been created with [employer] voice recognition software. Occasi onal wrong-word or [...] J?MRN: | | | | | | [id number] | | | [id number] | | | his | | | [...] | | | St. | | | [place] | | | y | | | [...] | | | St. | | | [place] | | | y | | | [...] | | | St. | | | [place] | | | y H. | | [...] | | | St. | | | [place] | | | y H. | | [...] | | | St. | | | [place] | | | y H. | | [...] | | | St. | | | [place] | | | y H. | | [...] | | | St. | | | [place] | | | y H. | | [...] | | | St. | | | [place] | | | y | | | [...] | | | ext. | | | [address] | | | or go | | [...]
--- OUTSIDE RECORDS SUMMARY | ~2020-04-12 | XMS | Encounter Summary ---
Demographics + + + | Address | [address] | | | [place] [address] | + + + | Home Phone [...] Team Providers + +------+ + | Care Atm Servicer Name | Role | Phone | + [...] + + | 05/17/ | Hospital | [facility] | Espinoza, | Schizophrenia, | | 2019 - | Encounter | [facility] | DO [address] | unspecified type | | | | CARE FLOOR [address] | [address] | ([facility]) (Primary Dx); | | 05/21/ | | [address] | [place] [address] | Acute psychosis | | 2019 | | [place], [place] | [phone] | (HCC); Marijuana | | | | [address] | | use; Nausea and | | | | [phone] | Tacos Brian MD | vomiting in adult; | | | | | [address] | Noncompliance with | | | | | [place], [place] | medication regimen; | | | | | [address] | Tobacco smoker | | | | | [phone] | within last 12 | | | | | | months; Type 1 | | | | | Tacos Paredes PA | diabetes mellitus | | | | | [address] | without complication | | | | | [place] [address] | (HCC); | | | | | [phone] | Schizoaffective | | | | | | disorder, bipolar | | | | | Hosea Watson, | type (HCC); Acute | | | | | [address] [facility] | hyperkalemia | | | | | [place] [address] | | | | | | [phone] | | | | | | | | | | | | Cony Castillo, | | | | | | [address] [facility] | | | | | | [place] [address] | | | | | | [phone] | | | | | | | [...] might be different f rom the original. [facility] Service: Hospitalist Discharge Summary Date of Admission: [...] s morning. The patient was accepted to [facility] for further treatment. The [...] mg by mouth as needed for Nicotine Certified Technician Specialist ving. Chew and tuck 1 piece every [...] patient ledarien ng. Report given to [facility]. Security came and gave patient back his belongings. Patient sent ina dora home with his mother. No other concerns noted. [facility] here to take patient to [facility]. Elisa Mendez RN 5:41 PM Elisa Marquez RN - 1 07/21/2018 5:15 PM PSTPatient's blood sugar 66. Waiting on food to arrive. [place] juice and doyle crackers given. Patient's dinner arrived. [facility] here but needing to get blood sugar sta bilized before transport. Elisa Mendez RN 5:16 PM Elisa Marquez RN - 1 07/21/2018 2:20 PM PSTNurse from [facility] [place] called to get update on patient. Nurse [...] this note might be different from the [facility] Service: Hospitalist Progress Note [...] Kirkland MD - 05/20/2019 12:18 PM PST [facility]: Hospitalist Progress Note Hospital Day: LOS: [...] Kirkland MD - 05/19/2019 2:57 PM PST [facility]: Hospitalist Progress Note Hospital Day: LOS: [...] his mother after he walked out of [facility] ED for same problems. He expressed [...] today. 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 3. Tobacco [...] receive care thro [facility] the use of telemedicine. Telemedicine enables health care providers at different locatio ns to provide safe, effective, and convenient care through the use of technology. As with an y health care service, there are risks associated with the use of telemedicine including, bu t not limited to, equipment failure, poor image resolution, and geographic information scientist issues. " The following questions [...] Reason for Consult: Patient detained Originating Site: [facility] ([place]) Referral: Patient is referred by Hosea Watson MD. History obtained from: Chart review, Referring MD and CM Communication limitations noted:Ac uity of illness and Mental status Chief Complaint: "I don't want to talk" HPI: The patient was sedated and uncooperative upon attempted interview. Attempted to enga ge the patient multiple times. manager copy return to patient room after my first [...] phone with her. Patient was brought to [facility]. However, the pat kathleen left that emergency department. The patient's mother picked him up and brought him to [facility]. The patient was evaluated, found to have [...] the patient has not been taking his [facility] medications as prescribed. KELLY.Also notes [...] negative. Past Psychiatric History: Inpatient treatment: See [facility] psychiatry discharge summary from 09/09/2013 for admi ssion spanning 07/14-09/09/2013; patient "under guardianship" at that time. Patient admitted with uncontrolled type 1 diabetes mellitus and severe, decompensated schizoaffective disorde r, bipolar type. Discharge summary notes, "Patient with schizoaffective disorder. He has be en in the [facility] hospital systems in the past including [facility] and [place]. Currently fol lowed through [employer]. Dr. Cardenas is his psychiatrist." Outpatient treatment: Per KELLY: "Care Coordination: Please call EOIP[facility] CM team if pt. presents to the ED Janeth MARTINEZ/TIMOTHY or Rin dexter RN [phone] Please be aware pt. is not currently taking any of his MH medications. PT. is also involved in the ACT team through [employer] . These are guidelines and the provider should exercise clinical judgment when providing care . ED Care Guidelines from [facility] Last Updated: 12/28/18 10:15 AM Care Coordination: Currently engaged in mental health services with the ACT Team at [facility].? Please contact [facility] with mental health concerns.? Ayla/Presley Anguiano: [phone]? These are guidelines and the provider should [...] mg by mouth as needed for Nicotine Certified Technician Specialist ving. Chew and tuck 1 piece every [...] delusions or obsessions during my interview; however, [facility] record suggests Capgras-like delusion and delusions [...] Unable to assess (see above). Safety Assessments: [place]-Suicide Severity Rating Scale (C-SSRS) Admit/Consult Screen 1. [...] the assessment was de rived from the [place]-Suicide Severity Rating Scale, the SAFE-T, best available [...] hospitalization. The patient has a patient's safety engineer. We are attempting to optimize psychiatric treatment. Homicide/Violent Behavior Risk Assessment: Unable to assess for the presence or absence of homicidal ideation, violent preoccupations, or other violent thoughts/behavioral patterns du e to the aforementioned sedation and uncooperativeness. The patient is currently hospitaliz ed, detained, and has a patient's safety engineer. We are attempting to optimize the patie [...] is detained. Continue one-to-one patient monitor/patient's safety engineer. -Do not restart atomoxetine or any of [...] hesi frankel to call us through the [employer] if you have questions. MDM Statement: Moderate. [...] from cafeteria for patient. Will continue to [facility]. Marbin Vance RN - 05/18/2019 12:54 PM [...] staff, and throwing th ings at crisis herbicide service sales representative. Pt broke a chair in the room and through his food on the floo r. Pt is resting in bed; security and [employer] at bedside. Pt is cooperating with staff at [facility] e. Will continue to monitor. [...] Josh Perez RN - 05/18/2019 9:09 AM PSTMount Pleasant operations and maintenance technician has contacted crisis, the pt is [...] PSTMothers name is beto, her number is [id number] signed by hSalonda Ocampo RN at 05/17/2019 11:02 PM Red Shalonda Varela RN - 2018 11:02 PM PSTDr kvng. WALLACEP, [employer] at bedside. Red, Shalonda Varela RN - 05/17/2019 11:02 PM PSTInterventions for jqpgzpd-vhzn-hnzshcvm risk patients 1. Initiated suicide precautions and [...] way, DO - 05/17/2019 10:42 PM PST [facility] Department of Emergency Medicine 10:42 PM History [...] for him and they took him to [facility]. She reports he walked out of [...] file Gets together: Not on file Attends amish service: Not on file Active member of [...] sore throat CV/Resp: Negative for chest pain, bhzmfuhyy-sm-drqlhz GI: Negative for abdominal pain, nausea, vomiting, [...] like ly not very compliant with management. Mhqna-im-senj glucose significant elevated. Will ev aluate for [...] on exam. No neurologic deficits to suggest FOURTH OFFICER mass. The patient di d not endorse [...] 20 mg (20 mg Intramuscular Given 05/17/19 4808) sodium chloride 0.9% (NS) bolus 2,000 mL (2,000 mLs Intravenous New Bag 05/17/19 2340) insulin regular (humuLIN R, novoLIN R) injection 10 Units (10 Units Intravenous Given 05/18 9728) sodium chloride 0.9% (NS) bolus 1,000 mL (1,000 mLs Intravenous New Bag 05/18/19 0237) Records Reviewed Old medical records. Nursing notes. Laboratory Evaluation Results Procedure Component Value Ref Range Date/Time Blood gas, Venous [[id number]] (Abnormal) Collected: 05/18/19 0001 Order Status: Completed [...] Abdiel Test not indicated CBC with Differential [[id number]] Collected: 05/17/19 2257 Order Status: Completed Specimen: Blood Updated: 05/18/19 [...] 0.00 - 0.10 K/uL Comprehensive Metabolic Panel [[id number]] (Abnormal) Collected: 05/17/192253 Order Status: Completed Specimen: [...] U/L Estimated GFR >60 >60 mL/min/1.73m2 Ethanol [[id number]] Collected: 05/17/192253 Order Status: Completed Specimen: Blood Updated: 05/17/192335 ALCOHOL, SERUM/PLASMA <10 <10 mg/dL Salicylate Level [[id number]] Collected: 05/17/192253 Order Status: Completed Specimen: Blood Updated: 05/17/192335 Salicylate, mg/dL <3.0 2.8 - 20.0 mg/dL TSH [[id number]] Collected: 05/17/192253 Order Status: Completed Specimen: Blood Updated: 05/17/192335 TSH 1.314 0.450 - 5.100 uIU/mL Acetaminophen Level [[id number]] (Abnormal) Collected: 05/17/192253 Order Status: Completed Specimen: Blood Updated: 05/17/192335 Acetaminophen, S <2.0 10.0 - 30.0 ug/mL Drugs Of Abuse Screen, Urine (H) [[id number]] (Abnormal) Collected: 05/17/192257 Order Status: Completed Specimen: Urine Updated: 05/17/19 2320 Amp/Methamphetamine, Screen, Urine NEGATIVE NEG Barbiturates Screen, Urine NEGATIVE NEG Benzodiazepines Screen, Urine NEGATIVE NEG Cocaine Metabolites, Ur NEGATIVE NEG Methadone Screen, Urine NEGATIVE NEG Opiates Screen, Urine NEGATIVE NEG Phencyclidine Screen, Urine NEGATIVE NEG Tetrahydrocannabinol(THC) POSITIVE NEG Ketones, Serum [[id number]] Collected: 05/17/192253 Order Status: Completed Specimen: Blood Updated: 05/17/19 2317 Ketones, Blood NEGATIVE NEG POC Glucose [[id number]] (Abnormal) Collected: 05/17/192252 Order Status: Completed Updated: [...] 05/20/2019 8:27 AM PSTM SW contacted Crisis ([phone]) to update them regarding the incident on [...] refusing insulin drip at this time. aware." [facility] [address] [place] [id number] Crisis thanked this CM for the information, and states that it will not be difficult to mikala ce pt. CANAL SUPERINTENDENT requested that pt be prioritized for a [...] Reji Harris RN - 05/19/2019 5:47 PM [facility] [place] [facility]. They have declined pt d/t aggressive [...] current admission [facility]. Patient expr esses appreciation for CM visit and concern, returned to playing on phone as CM exited room. lan of Suzan Leung, CANAL SUPERINTENDENT - 05/19/2019 1:05 PM PSTAttempted earlier to reach Dr. Castillo for psych consult, Dr. Bee now on, left [facility] requesting telepsych consult. lan of Naeem Forbes MSW - 05/18/2019 4:31 PM PSTLynn Reyes at [facility], patient will be single bed certification. When [...] J?MRN: | | | | | | [id number] | | | [id number] | | | riteri | | | [...] | | | St. | | | Mills | | | y | | [...] | | | St. | | | Mills | | | y | | [...] | | | St. | | | [facility] | | | y | | | Hospit | | | al | | | Patien | | | t is | | | curren | | | tly | | | establ | | | ished | | | with | | | St | | | Mills | | | y | | [...] St | | | | | | Mills | | | y | | [...] | | | St. | | | Mills | | | y | | [...] | | | St. | | | Mills | | | y H. | [...] | | | St. | | | Mills | | | y H. | [...] | | | St. | | | Mills | | | y H. | [...] | | | St. | | | Mills | | | y H. | [...] | | | St. | | | Mills | | | y H. | [...] | | | St. | | | Mills | | | y H. | [...] | | | MD | | | Taker Off | | | al | | | [...] | | | [phone] | | | [id number] | | | 95 | | | [...] Testing | 65 - 99 mg/dL | [facility] | | | POC | performed at [facility];[address] | | LABORATORY | | | | [address];[place], [place] | | | | | | [address] | | | | + + + + + + + + | Specimen | + + | | + + + + + + + | Performing | Address | City/State/Zipcode | Phone Number | | Organization | | | | + + + + + | [facility] | [address] | [place] [address] | [phone] | + + + + + POC [...] | | POC | performed at [facility];[address] | | LABORATORY | | | | [address];[place], [place] | | | | | | [address] | | | | + + + + + + + + | Specimen | + + | | + + + + + + + | Performing | Address | City/State/Zipcode | Phone Number | | Organization | | | | + + + + + | [facility] | [address] | [place] [address] | [phone] | + + + + + POC [...] | | POC | performed at [facility];[address] | | LABORATORY | | | | [address];[place] | | | | | | [address] | | | | + + + + + + + + | Specimen | + + | | + + + + + + + | Performing | Address | City/State/Zipcode | Phone Number | | Organization | | | | + + + + + | [facility] | [address] | [place] [address] | [phone] | + + + + + POC Glucose (05/21/2019 3:10 PM PST) + + + + + + | Component | Value | Ref Range | Performed | Pathologist | | | | | At | Signature | + + + + + + | Glucose, | 88Comment: Testing | 65 - 99 mg/dL | [facility] | | | POC | performed at [facility];[address] | | LABORATORY | | | | [address];[place], [place] | | | | | | [address] | | | | + + + + + + + + | Specimen | + + | | + + + + + + + | Performing | Address | City/State/Zipcode | Phone Number | | Organization | | | | + + + + + | [facility] | [address] | [place] [address] | [phone] | + + + + + POC [...] | | POC | performed at [facility];[address] | | LABORATORY | | | | [address];[place], [place] | | | | | | [address] | | | | + + + + + + + + | Specimen | + + | | + + + + + + + | Performing | Address | City/State/Zipcode | Phone Number | | Organization | | | | + + + + + | [facility] | [address] | [place] [address] | [phone] | + + + + + POC Glucose (05/21/2019 11:45 AM PST) + + + + + + | Component | Value | Ref Range | Performed | Pathologist | | | | | At | Signature | + + + + + + | Glucose, | 181 (H)Comment: Testing | 65 - 99 mg/dL | [facility] | | | POC | performed at [facility];[address] | | LABORATORY | | | | [address];[place] | | | | | | [address] | | | | + + + + + + + + | Specimen | + + | | + + + + + + + | Performing | Address | City/State/Zipcode | Phone Number | | Organization | | | | + + + + + | [facility] | [address] | [place] [address] | [phone] | + + + + + Basic [...] | >60Comment: GFR <60: | >60 | [facility] | | | GFR | CHRONIC [...] | | | performed at [facility] [address], [address] | | | | | | [facility], | | | | | | [place] [address] | | | | + + + + + + + + | Specimen | + + | Blood | + + + + + + + | Performing | Address | City/State/Zipcode | Phone Number | | Organization | | | | + + + + + | [facility] | [address] | [place] [address] | [phone] | + + + + + POC [...] | | POC | performed at [facility];[address] | | LABORATORY | | | | [address];[place], [place] | | | | | | [address] | | | | + + + + + + + + | Specimen | + + | | + + + + + + + | Performing | Address | City/State/Zipcode | Phone Number | | Organization | | | | + + + + + | [facility] | [address] | [place] [address] | [phone] | + + + + + POC [...] | | POC | performed at [facility];[address] | | LABORATORY | | | | [address];[place], [place] | | | | | | [address] | | | | + + + + + + + + | Specimen | + + | | + + + + + + + | Performing | Address | City/State/Zipcode | Phone Number | | Organization | | | | + + + + + | [facility] | [address] | [place] [address] | [phone] | + + + + + POC [...] | | POC | performed at [facility];[address] | | LABORATORY | | | | [address];[place] | | | | | | [address] | | | | + + + + + + + + | Specimen | + + | | + + + + + + + | Performing | Address | City/State/Zipcode | Phone Number | | Organization | | | | + + + + + | [facility] | [address] | [place] [address] | [phone] | + + + + + POC [...] | | POC | performed at [facility];[address] | | LABORATORY | | | | [address];[place] | | | | | | [address] | | | | + + + + + + + + | Specimen | + + | | + + + + + + + | Performing | Address | City/State/Zipcode | Phone Number | | Organization | | | | + + + + + | [facility] | [address] | [place] [address] | [phone] | + + + + + Potassium (05/20/2019 3:58 PM PST) + + + + + + | Component | Value | Ref Range | Performed | Pathologist | | | | | At | Signature | + + + + + + | K | 4.9Comment: Testing | 3.5 - 4.9 | [facility] | | | | performed at [facility];[address] | mmol/L | LABORATORY | | | | [address];[place], [place] | | | | | | [address] | | | | + + + + + + + + | Specimen | + + | Blood | + + + + + + + | Performing | Address | City/State/Zipcode | Phone Number | | Organization | | | | + + + + + | [facility] | [address] | [place] [address] | [phone] | + + + + + POC Glucose (05/20/2019 11:37 AM PST) + + + + + + | Component | Value | Ref Range | Performed | Pathologist | | | | | At | Signature | + + + + + + | Glucose, | >400 (H)Comment: Testing | 65 - 99 mg/dL | [facility] | | | POC | performed at [facility];[address] | | LABORATORY | | | | [address];[place] | | | | | | [address] | | | | + + + + + + + + | Specimen | + + | | + + + + + + + | Performing | Address | City/State/Zipcode | Phone Number | | Organization | | | | + + + + + | [facility] | [address] | [place] [address] | [phone] | + + + + + Basic [...] | | | | | | MDRD [facility] traceable | | | | | | equation.Testing | | | | | | performed at [facility] [address], [address] | | | | | | [facility], | | | | | | [place] [address] | | | | + + + + + + + + | Specimen | + + | Blood | + + + + + + + | Performing | Address | City/State/Zipcode | Phone Number | | Organization | | | | + + + + + | [facility] | [address] | [place] [address] | [phone] | + + + + + ECG [...] | | POC | performed at [facility];[address] | | LABORATORY | | | | [address];[place] | | | | | | [address] | | | | + + + + + + + + | Specimen | + + | | + + + + + + + | Performing | Address | City/State/Zipcode | Phone Number | | Organization | | | | + + + + + | [facility] | [address] | [place] [address] | [phone] | + + + + + POC Glucose (05/20/2019 3:23 AM PST) + + + + + + | Component | Value | Ref Range | Performed | Pathologist | | | | | At | Signature | + + + + + + | Glucose, | 232 (H)Comment: Testing | 65 - 99 mg/dL | [facility] | | | POC | performed at [facility];[address] | | LABORATORY | | | | [address];[place] | | | | | | [address] | | | | + + + + + + + + | Specimen | + + | | + + + + + + + | Performing | Address | City/State/Zipcode | Phone Number | | Organization | | | | + + + + + | [facility] | [address] | [place] [address] | [phone] | + + + + + POC [...] | | POC | performed at [facility];[address] | | LABORATORY | | | | [address];[place], [place] | | | | | | [address] | | | | + + + + + + + + | Specimen | + + | | + + + + + + + | Performing | Address | City/State/Zipcode | Phone Number | | Organization | | | | + + + + + | [facility] | [address] | [place] [address] | [phone] | + + + + + POC Glucose (05/20/2019 1:22 AM PST) + + + + + + | Component | Value | Ref Range | Performed | Pathologist | | | | | At | Signature | + + + + + + | Glucose, | 248 (H)Comment: Testing | 65 - 99 mg/dL | [facility] | | | POC | performed at [facility];[address] | | LABORATORY | | | | [address];[place] | | | | | | [address] | | | | + + + + + + + + | Specimen | + + | | + + + + + + + | Performing | Address | City/State/Zipcode | Phone Number | | Organization | | | | + + + + + | [facility] | [address] | [place] [address] | [phone] | + + + + + POC Glucose (05/20/2019 12:23 AM PST) + + + + + + | Component | Value | Ref Range | Performed | Pathologist | | | | | At | Signature | + + + + + + | Glucose, | 186 (H)Comment: Testing | 65 - 99 mg/dL | [facility] | | | POC | performed at [facility];[address] | | LABORATORY | | | | [address];[place] | | | | | | [address] | | | | + + + + + + + + | Specimen | + + | | + + + + + + + | Performing | Address | City/State/Zipcode | Phone Number | | Organization | | | | + + + + + | [facility] | [address] | [place] [address] | [phone] | + + + + + POC [...] | | POC | performed at [facility];[address] | | LABORATORY | | | | [address];[place] | | | | | | [address] | | | | + + + + + + + + | Specimen | + + | | + + + + + + + | Performing | Address | City/State/Zipcode | Phone Number | | Organization | | | | + + + + + | [facility] | [address] | [place] [address] | [phone] | + + + + + POC [...] | | POC | performed at [facility];[address] | | LABORATORY | | | | [address];[place], [place] | | | | | | [address] | | | | + + + + + + + + | Specimen | + + | | + + + + + + + | Performing | Address | City/State/Zipcode | Phone Number | | Organization | | | | + + + + + | [facility] | [address] [facility] [address] | [place] [address] | [phone] | + + + + + POC [...] | | POC | performed at [facility];[address] | | LABORATORY | | | [address];[place], [place] | | | | | | [address] | | | | + + + + + + + + | Specimen | + + | | + + + + + + + | Performing | Address | City/State/Zipcode | Phone Number | | Organization | | | | + + + + + | [facility] | [address] | [place] [address] | [phone] | + + + + + POC [...] | | POC | performed at [facility];[address] | | LABORATORY | | | | [address];[place] | | | | | | [address] | | | | + + + + + + + + | Specimen | + + | | + + + + + + + | Performing | Address | City/State/Zipcode | Phone Number | | Organization | | | | + + + + + | [facility] | [address] | [place] [address] | [phone] | + + + + + POC Glucose (05/19/2019 9:06 PM PST) + + + + + + | Component | Value | Ref Range | Performed | Pathologist | | | | | At | Signature | + + + + + + | Glucose, | 54 (L)Comment: Testing | 65 - 99 mg/dL | [facility] | | | POC | performed at [facility];[address] | | LABORATORY | | | | [address];[place] | | | | | | [address] | | | | + + + + + + + + | Specimen | + + | | + + + + + + + | Performing | Address | City/State/Zipcode | Phone Number | | Organization | | | | + + + + + | [facility] LABORATORY | [address] | [place] [address] | [phone] | + + + + + POC [...] | | POC | performed at [facility];[address] | | LABORATORY | | | | [address];[place], [place] | | | | | | [address] | | | | + + + + + + + + | Specimen | + + | | + + + + + + + | Performing | Address | City/State/Zipcode | Phone Number | | Organization | | | | + + + + + | [facility] | [address] | [place] [address] | [phone] | + + + + + POC Glucose (05/19/2019 7:43 PM PST) + + + + + + | Component | Value | Ref Range | Performed | Pathologist | | | | | At | Signature | + + + + + + | Glucose, | 322 (H)Comment: Testing | 65 - 99 mg/dL | [facility] | | | POC | performed at [facility];[address] | | LABORATORY | | | | [address];[place] | | | | | | [address] | | | | + + + + + + + + | Specimen | + + | | + + + + + + + | Performing | Address | City/State/Zipcode | Phone Number | | Organization | | | | + + + + + | [facility] | [address] | [place] [address] | [phone] | + + + + + Glucose, Random (05/19/2019 5:51 PM PST) + + + + + + | Component | Value | Ref Range | Performed | Pathologist | | | | | At | Signature | + + + + + + | Glucose | 421 (H)Comment: Testing | 65 - 99 mg/dL | [facility] | | | | performed at [facility];[address] | | LABORATORY | | | | [address];[place] | | | | | | [address] | | | | + + + + + + + + | Specimen | + + | Blood | + + + + + + + | Performing | Address | City/State/Zipcode | Phone Number | | Organization | | | | + + + + + | [facility] | [address] | [place] [address] | [phone] | + + + + + POC [...] | | POC | performed at [facility];[address] | | LABORATORY | | | | [address];[place], [place] | | | | | | [address] | | | | + + + + + + + + | Specimen | + + | | + + + + + + + | Performing | Address | City/State/Zipcode | Phone Number | | Organization | | | | + + + + + | [facility] | [address] | [place] [address] | [phone] | + + + + + Hemoglobin A1C (05/19/2019 3:06 PM PST) + + + + + + | Component | Value | Ref Range | Performed | Pathologist | | | | | At | Signature | + + + + + + | Hemoglobin | 10.2 (H)Comment: HbA1c | 4.0 - 6.0 % | [facility] | | | A1c | method [...] | 246 (H)Comment: | <154 mg/dL | [facility] | | | Average | Estimated Average | | LABORATORY | | | Glucose | Glucose calculated from | | | | | | hemoglobin A1c by use of | | | | | | the ADArecommended | | | | | | formula.Testing | | | | | | performed at [facility] [address], [address] | | | | | | [facility], | | | | | | [place] [address] | | | | + + + + + + + + | Specimen | + + | Blood | + + + + + + + | Performing | Address | City/State/Zipcode | Phone Number | | Organization | | | | + + + + + | [facility] | [address] | [place] [address] | [phone] | + + + + + Glucose, Random (05/19/2019 3:06 PM PST) + + + + + + | Component | Value | Ref Range | Performed | Pathologist | | | | | At | Signature | + + + + + + | Glucose | 520 ()Comment: CALLED | 65 - 99 mg/dL | [facility] | | | | RESULTSREAD BACK RESULTS | | LABORATORY | | | | VERIFIEDBOOM/CONSUELO Cervantes | | | | | | AT [address] | | | | | | performed at [facility];[address] | | | | | | [address];[place], [place] | | | | | | [address] | | | | + + + + + + + + | Specimen | + + | Blood | + + + + + + + | Performing | Address | City/State/Zipcode | Phone Number | | Organization | | | | + + + + + | [facility] | [address] | [place] [address] | [phone] | + + + + + POC Glucose (05/19/2019 2:42 PM PST) + + + + + + | Component | Value | Ref Range | Performed | Pathologist | | | | | At | Signature | + + + + + + | Glucose, | >400 (H)Comment: Testing | 65 - 99 mg/dL | [facility] | | | POC | performed at [facility];[address] | | LABORATORY | | | | [address];[place], [place] | | | | | | [address] | | | | + + + + + + + + | Specimen | + + | | + + + + + + + | Performing | Address | City/State/Zipcode | Phone Number | | Organization | | | | + + + + + | [facility] | [address] | [place] [address] | [phone] | + + + + + POC [...] | | POC | performed at [facility];[address] | | LABORATORY | | | | [address];[place], [place] | | | | | | [address] | | | | + + + + + + + + | Specimen | + + | | + + + + + + + | Performing | Address | City/State/Zipcode | Phone Number | | Organization | | | | + + + + + | [facility] | [address] | [place] [address] | [phone] | + + + + + Basic [...] | >60Comment: GFR <60: | >60 | [facility] | | | GFR | CHRONIC [...] | | | | performed at [facility] | | | | | | [facility];[place], [place] | | | | | | [address] | | | | + + + + + + + + | Specimen | + + | Blood | + + + + + + + | Performing | Address | City/State/Zipcode | Phone Number | | Organization | | | | + + + + + | [facility] | [address] | [place] [address] | [phone] | + + + + + POC [...] | | POC | performed at [facility];[address] | | LABORATORY | | | | [address];[place] | | | | | | [address] | | | | + + + + + + + + | Specimen | + + | | + + + + + + + | Performing | Address | City/State/Zipcode | Phone Number | | Organization | | | | + + + + + | [facility] | [address] | [place] [address] | [phone] | + + + + + POC [...] | | POC | performed at [facility];[address] | | LABORATORY | | | | [address];[place] | | | | | | [address] | | | | + + + + + + + + | Specimen | + + | | + + + + + + + | Performing | Address | City/State/Zipcode | Phone Number | | Organization | | | | + + + + + | [facility] | [address] | [place] [address] | [phone] | + + + + + Basic [...] | | | | performed at [facility];888 | | | | | | [address];[place] | | | | | | [address] | | | | + + + + + + + + | Specimen | + + | Blood | + + + + + + + | Performing | Address | City/State/Zipcode | Phone Number | | Organization | | | | + + + + + | [facility] | [address] | [place] [address] | [phone] | + + + + + POC [...] | | POC | performed at [facility];[address] | | LABORATORY | | | | [address];[place] | | | | | | [address] | | | | + + + + + + + + | Specimen | + + | | + + + + + + + | Performing | Address | City/State/Zipcode | Phone Number | | Organization | | | | + + + + + | [facility] | [address] [facility] | [place] [address] | [phone] | + + + + + POC Glucose (05/18/2019 8:19 PM PST) + + + + + + | Component | Value | Ref Range | Performed | Pathologist | | | | | At | Signature | + + + + + + | Glucose, | >400 (H)Comment: Testing | 65 - 99 mg/dL | [facility] | | | POC | performed at [facility];888 | | LABORATORY | | | | [...] | + + + + + | [facility] | [address] | [place] [address] | [phone] | + + + + + Basic [...] | 8.7 | 8.5 - 10.5 | [facility] | | | | | mg/dL | LABORATORY | | + + + + + + | Estimated | >60Comment: GFR <60: | >60 | [facility] | | | GFR | CHRONIC [...] | | | | | | MDRD IDLA traceable | | | | | | equation.Testing | | | | | | performed at [facility];[address] | | | | | | [facility];[place], [place] | | | | | | [address] | | | | + + + + + + + + | Specimen | + + | Blood | + + + + + + + | Performing | Address | City/State/Zipcode | Phone Number | | Organization | | | | + + + + + | [facility] | [address] | [place] [address] | [phone] | + + + + + POC [...] | | POC | performed at [facility];[address] | | LABORATORY | | | | [address];[place] | | | | | | [address] | | | | + + + + + + + + | Specimen | + + | | + + + + + + + | Performing | Address | City/State/Zipcode | Phone Number | | Organization | | | | + + + + + | [facility] | [address] [facility] | [place] [address] | [phone] | + + + + + POC [...] | | POC | performed at [facility];[address] | | LABORATORY | | | | [address];[place], [place] | | | | | | [address] | | | | + + + + + + + + | Specimen | + + | | + + + + + + + | Performing | Address | City/State/Zipcode | Phone Number | | Organization | | | | + + + + + | [facility] | [address] [facility] | [place] [address] | [phone] | + + + + + POC Glucose (05/18/2019 12:22 PM PST) + + + + + + | Component | Value | Ref Range | Performed | Pathologist | | | | | At | Signature | + + + + + + | Glucose, | >400 (H)Comment: Testing | 65 - 99 mg/dL | [facility] | | | POC | performed at [facility];[address] | | LABORATORY | | | | [address];[place] | | | | | | [address] | | | | + + + + + + + + | Specimen | + + | | + + + + + + + | Performing | Address | City/State/Zipcode | Phone Number | | Organization | | | | + + + + + | [facility] | [address] | [place] [address] | [phone] | + + + + + POC Glucose (05/18/2019 9:28 AM PST) + + + + + + | Component | Value | Ref Range | Performed | Pathologist | | | | | At | Signature | + + + + + + | Glucose, | 111 (H)Comment: Testing | 65 - 99 mg/dL | [facility] | | | POC | performed at [facility];[address] | | LABORATORY | | | | [address];[place] | | | | | | [address] | | | | + + + + + + + + | Specimen | + + | | + + + + + + + | Performing | Address | City/State/Zipcode | Phone Number | | Organization | | | | + + + + + | [facility] | [address] | [place] [address] | [phone] | + + + + + POC [...] | | POC | performed at [facility];[address] | | LABORATORY | | | | [address];[place], [place] | | | | | | [address] | | | | + + + + + + + + | Specimen | + + | | + + + + + + + | Performing | Address | City/State/Zipcode | Phone Number | | Organization | | | | + + + + + | [facility] | [address] | [place] [address] | [phone] | + + + + + POC Glucose (05/18/2019 3:49 AM PST) + + + + + + | Component | Value | Ref Range | Performed | Pathologist | | | | | At | Signature | + + + + + + | Glucose, | 172 (H)Comment: Testing | 65 - 99 mg/dL | [facility] | | | POC | performed at [facility];[address] | | LABORATORY | | | | [address];[place] | | | | | | [address] | | | | + + + + + + + + | Specimen | + + | | + + + + + + + | Performing | Address | City/State/Zipcode | Phone Number | | Organization | | | | + + + + + | [facility] | [address] | [place] [address] | [phone] | + + + + + POC Glucose (05/18/2019 1:36 AM PST) + + + + + + | Component | Value | Ref Range | Performed | Pathologist | | | | | At | Signature | + + + + + + | Glucose, | 319 (H)Comment: Testing | 65 - 99 mg/dL | [facility] | | | POC | performed at [facility];[address] | | LABORATORY | | | | [address];[place], [place] | | | | | | [address] | | | | + + + + + + + + | Specimen | + + | | + + + + + + + | Performing | Address | City/State/Zipcode | Phone Number | | Organization | | | | + + + + + | [facility] | [address] | [place] [address] | [phone] | + + + + + Blood [...] at | | | | | | [facility];[address] | [address];[place] [address] | | | | + + + + + + + + | Specimen | + + | | + + + + + + + | Performing | Address | City/State/Zipcode | Phone Number | | Organization | | | | + + + + + | [facility] | [address] | [place] [address] | [phone] | + + + + + Drugs [...] Tetrahydroc | POSITIVE (A)Comment: | NEG | [facility] | | | annabinol(T | Positive [...] | | | | performed at [facility] | | | | | | [facility];[place], [place] | | | | | | [address] | | | | + + + + + + + + | Specimen | + + | Urine | + + + + + + + | Performing | Address | City/State/Zipcode | Phone Number | | Organization | | | | + + + + + | [facility] | [address] | [place] [address] | [phone] | + + + + + Ketones, Serum (05/17/2019 10:54 PM PST) + + + + + + | Component | Value | Ref Range | Performed | Pathologist | | | | | At | Signature | + + + + + + | Ketones, | NEGATIVEComment: Testing | NEG | [facility] | | | Blood | performed at [facility];[address] | | LABORATORY | | | | [address];[place] | | | | | | [address] | | | | + + + + + + + + | Specimen | + + | Blood | + + + + + + + | Performing | Address | City/State/Zipcode | Phone Number | | Organization | | | | + + + + + | [facility] | [address] | [place] [address] | [phone] | + + + + + TSH (05/17/2019 10:54 PM PST) + + + + + + | Component | Value | Ref Range | Performed | Pathologist | | | | | At | Signature | + + + + + + | TSH | 1.314Comment: Testing | 0.450 - 5.100 | [facility] | | | | performed at [facility];[address] | uIU/mL | LABORATORY | | | | [address];[place], [place] | | | | | | [address] | | | | + + + + + + + + | Specimen | + + | Blood | + + + + + + + | Performing | Address | City/State/Zipcode | Phone Number | | Organization | | | | + + + + + | [facility] | [address] | [place] [address] | [phone] | + + + + + Salicylate Level (05/17/2019 10:54 PM PST) + + + + + + | Component | Value | Ref Range | Performed | Pathologist | | | | | At | Signature | + + + + + + | Salicylate, | <3.0Comment: Testing | 2.8 - 20.0 | [facility] | | | mg/dL | performed at [facility];[address] | mg/dL | LABORATORY | | | | [address];[place], [place] | | | | | | [address] | | | | + + + + + + + + | Specimen | + + | Blood | + + + + + + + | Performing | Address | City/State/Zipcode | Phone Number | | Organization | | | | + + + + + | [facility] | [address] | [place] [address] | [phone] | + + + + + Acetaminophen [...] | | en, S | performed at [facility];[address] | ug/mL | LABORATORY | | | [address];[place], [place] | | | | | | [address] | | | | + + + + + + + + | Specimen | + + | Blood | + + + + + + + | Performing | Address | City/State/Zipcode | Phone Number | | Organization | | | | + + + + + | [facility] | [address] [facility] | [place] [address] | [phone] | + + + + + Ethanol (05/17/2019 10:54 PM PST) + + + + + + | Component | Value | Ref Range | Performed | Pathologist | | | | | At | Signature | + + + + + + | ALCOHOL, | <10Comment: Testing | <10 mg/dL | [facility] | | | SERUM/PLASM | performed at [facility] | | LABORATORY | | | A | [address];[place], [place] | | | | | | [address] | | | | + + + + + + + + | Specimen | + + | Blood | + + + + + + + | Performing | Address | City/State/Zipcode | Phone Number | | Organization | | | | + + + + + | [facility] | [address] | [place] [address] | [phone] | + + + + + Comprehensive [...] | | | | performed at [facility];[address] | | | | | | [address];[place], [place] | | | | | | [address] | | | | + + + + + + + + | Specimen | + + | Blood | + + + + + + + | Performing | Address | City/State/Zipcode | Phone Number | | Organization | | | | + + + + + | [facility] | [address] | [place] [address] | [phone] | + + + + + CBC [...] | | | Absolute | performed at [facility];[address] | K/uL | LABORATORY | | | | [address];[place], [place] | | | | | | [address] | | | | + + + + + + + + | Specimen | + + | Blood | + + + + + + + | Performing | Address | City/State/Zipcode | Phone Number | | Organization | | | | + + + + + | [facility] | [address] | [place] [address] | [phone] | + + + + + POC Glucose (05/17/2019 10:53 PM PST) + + + + + + | Component | Value | Ref Range | Performed | Pathologist | | | | | At | Signature | + + + + + + | Glucose, | >400 (H)Comment: Testing | 65 - 99 mg/dL | [facility] | | | POC | performed at [facility];[address] | | LABORATORY | | | | [address];[place] | | | | | | [address] | | | | + + + + + + + + | Specimen | + + | | + + + + + + + | Performing | Address | City/State/Zipcode | Phone Number | | Organization | | | | + + + + + | [facility] | [address] | [place] [address] | [phone] | + + + + + documented [...] | | | | First dose on [facility] 05/20/19 at | | | | [...] | | | | | | | 5526-7491 Use NIGHT DOSE for | | | | | | | doses scheduled: HS, 3AM, | | | | | | | Nighttime 6859-6432 If the BG is | | | [...] | | | | | | | 1134-7020 Use NIGHT DOSE for | | | | | | | doses scheduled: HS, 3AM, | | | | | | | Nighttime 1712-9245 If the BG is | | | [...] | | | | | dose on [facility] 05/20/19 at 1230, | | | | [...] | | | | | | | 6496-1610 Use NIGHT DOSE for | | | | | | | doses scheduled: HS, 3AM, | | | | | | | Nighttime 6810-9673 If the BG is | | | [...] PST | | | | | ONCE, [facility] 05/17/19 at 2335, For 1 | | [...]
--- OUTSIDE RECORDS SUMMARY | ~2020-04-12 | XMS | Encounter Summary ---
Demographics + + + | Address | [address] | | | [place] [address] | + + + | Home Phone [...] + + + | Author | [facility] | | | and Ryana | + + + | Organization | [facility] | | | [...] Team Providers + +------+ + | Care Deck Steward Name | Role | Phone | + [...] | patient leaving | | | | [address] | | prior to being seen | | | | [phone] | | by health care | | [...] J?MRN: | | | | | | [id number] | | | [id number] | | | his | | | [...] | | | St. | | | [facility] | | | y | | | [...] | | | St. | | | [facility] | | | y H. | | [...] | | | St. | | | [place] | | | y H. | | [...] | | | St. | | | [place] | | | y H. | | [...] | | | St. | | | [place] | | | y H. | | [...] | | | St. | | | [place] | | | y H. | | [...] | | | St. | | | [place] | | | y | | | [...] | | | ext. | | | [phone] | | | or go | | [...]
--- OUTSIDE RECORDS SUMMARY | ~2020-04-12 | XMS | Encounter Summary ---
Demographics + + + | Address | [address] | | | [place] [address] | + + + | Home Phone | | + + + | Preferred Language | Unknown | + + + | Marital Status | Single | + + + | Muslim Affiliation | 1001 | + + + [...] Providers + +------+ + | Care Manager Social Work Name | Role | Phone | + [...] + + | 05/17/ | Hospital | [facility] | Espinoza, | Schizophrenia, | | 2019 - | Encounter | [facility] | DO Benjamin [address] | unspecified type | | | | CARE FLOOR [address] | [address] | ([facility]) (Primary Dx); | | 05/21/ | | [address] | [place] [address] | Acute psychosis | | 2019 | | [place], [place] | [phone] | (HCC); Marijuana | | | | [address] | | use; Nausea and | | | | [phone] | Tacos Brian MD | vomiting in adult; | | | | | [address] | Noncompliance with | | | | | [place], [place] | medication regimen; | | | | | [phone] | Tobacco smoker | | | | | [phone] | within last 12 | | | | | | months; Type 1 | | | | | Tacos Paredes PA | diabetes mellitus | | | | | [address] | without complication | | | | | [place] [address] | (HCC); | | | | | [phone] | Schizoaffective | | | | | | disorder, bipolar | | | | | Hosea Watson, | type (HCC); Acute | | | | | [address] [facility] | hyperkalemia | | | | | [place] [address] | | | | | | [phone] | | | | | | | | | | | | Cony Castillo, | | | | | | [address] [facility] [address] | | | | | | [place] [address] | | | | | | [phone] | | | | | | | [...] might be different f rom the original. [facility] Service: Hospitalist Discharge Summary [...] morning. The patient was accepted to [facility] for further treatment. The patient [...] mg by mouth as needed for Nicotine Car Hostler ving. Chew and tuck 1 piece every [...] harge summary. Hosea Watson MD 05/21/2019 docuethan jnekins in this encounter Medications at Time of [...] patient ledarien ng. Report given to [facility]. Security came and gave patient back his belongings. Patient sent ina dora home with his mother. No other concerns noted. [facility] here to take patient to [facility]. Elisa Mendez RN 5:41 PM Elisa Marquez RN - 1 07/21/2018 5:15 PM PSTPatient's blood sugar 66. Waiting on food to arrive. Concord juice and doyle crackers given. Patient's dinner arrived. [facility] here but needing to get blood sugar sta bilized before transport. Elisa Mendez RN 5:16 PM Elisa Marquez RN - 1 07/21/2018 2:20 PM PSTNurse from [facility] [place] called to get update on patient. Nurse [...] this note might be different from the [facility] Service: Hospitalist Progress Note Hospital Day: LOS: [...] Kirkland MD - 05/20/2019 12:18 PM PST [facility] Service: Hospitalist Progress Note [...] Kirkland MD - 05/19/2019 2:57 PM PST [facility] Service: Hospitalist Progress Note [...] his mother after he walked out of [facility] ED for same problems. He expressed [...] today. 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 3. Tobacco [...] "You have chosen to receive care thro [facility] the use of telemedicine. Telemedicine enables health care providers at different locatio ns to provide safe, effective, and convenient care through the use of technology. As with an y health care service, there are risks associated with the use of telemedicine including, bu t not limited to, equipment failure, poor image resolution, and information services manager issues. " The following questions were asked [...] Reason for Consult: Patient detained Originating Site: [facility] ([place]) Referral: Patient is referred by Hosea Watson MD. History obtained from: Chart review, Referring MD and CM Communication limitations noted:Ac uity of illness and Mental status Chief Complaint: "I don't want to talk" HPI: The patient was sedated and uncooperative upon attempted interview. Attempted to enga ge the patient multiple times. infrastructure project manager return to patient room after [...] phone with her. Patient was brought to [facility]. However, the pat kathleen left that emergency department. The patient's mother picked him up and brought him to [facility]. The patient was evaluated, found to [...] the patient has not been taking his [facility] medications as prescribed. KELLY.Also notes [...] negative. Past Psychiatric History: Inpatient treatment: See [facility] psychiatry discharge summary from 09/09/2013 for admi ssion spanning 07/14-09/09/2013; patient "under guardianship" at that time. Patient admitted with uncontrolled type 1 diabetes mellitus and severe, decompensated schizoaffective disorde r, bipolar type. Discharge summary notes, "Patient with schizoaffective disorder. He has be en in the [facility] in the past including [facility] and [place]. Currently fol lowed through [facility]. Dr. Cardenas is his psychiatrist." Outpatient treatment: Per KELLY: "Care Coordination: Please call [facility] CM team if pt. presents to the ED Janeth MARTINEZ/TIMOTHY or Rin dexter RN [phone] Please be aware pt. is not currently taking any of his MH medications. PT. is also involved in the ACT team through [facility] . These are guidelines and the provider should exercise clinical judgment when providing care . ED Care Guidelines from [facility] Last Updated: 12/28/18 10:15 AM Care Coordination: Currently engaged in mental health services with the ACT Team at [facility].? Please contact [facility] with mental health concerns.? Ayla/Presley Anguiano: [phone]? These are guidelines and the provider should [...] mg by mouth as needed for Nicotine Car Hostler ving. Chew and tuck 1 piece every [...] mg, 100 mg, Oral, BID PRN, Cony Casitllo MD enoxaparin (LOVENOX) 40 mg/0.4 mL injection [...] delusions or obsessions during my interview; however, [facility] record suggests Capgras-like delusion and delusions related [...] Unable to assess (see above). Safety Assessments: [place]-Suicide Severity Rating Scale (C-SSRS) Admit/Consult Screen 1. [...] the assessment was de rived from the [place]-Suicide Severity Rating Scale, the SAFE-T, best available [...] psychiatric hospitalization. The patient has a patient's product safety tester. We are attempting to optimize psychiatric treatment. Homicide/Violent Behavior Risk Assessment: Unable to assess for the presence or absence of homicidal ideation, violent preoccupations, or other violent thoughts/behavioral patterns du e to the aforementioned sedation and uncooperativeness. The patient is currently hospitaliz ed, detained, and has a patient's product safety tester. We are attempting to optimize the patie [...] patient is detained. Continue one-to-one patient monitor/patient's product safety tester. -Do not restart atomoxetine or any of [...] hesi frankel to call us through the [employer] if you have questions. MDM Statement: Moderate. [...] from cafeteria for patient. Will continue to [facility]. Marbin Vance RN - 05/18/2019 12:54 PM [...] staff, and throwing th ings at crisis software support representative. Pt broke a chair in the room and through his food on the floo r. Pt is resting in bed; security and [employer] at bedside. Pt is cooperating with staff at [facility] e. Will continue to monitor. When [...] Josh Perez RN - 05/18/2019 9:09 AM PSTChestnut technology intern has contacted crisis, the pt is next [...] PSTMothers name is beto, her number is [id number] signed by Shalonda Ocampo RN at 05/17/2019 11:02 PM Red Shalonda Varela RN - 2018 11:02 PM PSTDr kvng. WALLACEP, [employer] at bedside. Red, Shalonda Varela RN - 05/17/2019 11:02 PM PSTInterventions for ayuejsm-zukb-ngdnfsux risk patients 1. Initiated suicide precautions and [...] way, DO - 05/17/2019 10:42 PM PST [facility] Department of Emergency Medicine 10:42 PM [...] for him and they took him to [facility]. She reports he walked out of [...] file Gets together: Not on file Attends cheondoism service: Not on file Active member of [...] sore throat CV/Resp: Negative for chest pain, mvbavbrxe-bz-npjtei GI: Negative for abdominal pain, nausea, vomiting, [...] like ly not very compliant with management. Bnxlf-rv-wxha glucose significant elevated. Will ev aluate for [...] on exam. 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 The patient di d not endorse [...] 20 mg (20 mg Intramuscular Given 05/17/19 3688) sodium chloride 0.9% (NS) bolus 2,000 mL (2,000 mLs Intravenous New Bag 05/17/19 2340) insulin regular (humuLIN R, novoLIN R) injection 10 Units (10 Units Intravenous Given 05/18 0878) sodium chloride 0.9% (NS) bolus 1,000 mL (1,000 mLs Intravenous New Bag 05/18/19 0237) Records Reviewed Old medical records. Nursing notes. Laboratory Evaluation Results Procedure Component Value Ref Range Date/Time Blood gas, Venous [[id number]] (Abnormal) Collected: 05/18/19 0001 Order Status: Completed [...] Abdiel Test not indicated CBC with Differential [[id number]] Collected: 05/17/19 2255 Order Status: Completed Specimen: Blood Updated: 05/18/19 [...] 0.00 - 0.10 K/uL Comprehensive Metabolic Panel [[id number]] (Abnormal) Collected: 05/17/192253 Order Status: Completed Specimen: [...] U/L Estimated GFR >60 >60 mL/min/1.73m2 Ethanol [[id number]] Collected: 05/17/192253 Order Status: Completed Specimen: Blood Updated: 05/17/192335 ALCOHOL, SERUM/PLASMA <10 <10 mg/dL Salicylate Level [[id number]] Collected: 05/17/192253 Order Status: Completed Specimen: Blood Updated: 05/17/192335 Salicylate, mg/dL <3.0 2.8 - 20.0 mg/dL TSH [[id number]] Collected: 05/17/192253 Order Status: Completed Specimen: Blood Updated: 05/17/192335 TSH 1.314 0.450 - 5.100 uIU/mL Acetaminophen Level [[id number]] (Abnormal) Collected: 05/17/192253 Order Status: Completed Specimen: Blood Updated: 05/17/192335 Acetaminophen, S <2.0 10.0 - 30.0 ug/mL Drugs Of Abuse Screen, Urine (H) [[id number]] (Abnormal) Collected: 05/17/192257 Order Status: Completed Specimen: Urine Updated: 05/17/19 2320 Amp/Methamphetamine, Screen, Urine NEGATIVE NEG Barbiturates Screen, Urine NEGATIVE NEG Benzodiazepines Screen, Urine NEGATIVE NEG Cocaine Metabolites, Ur NEGATIVE NEG Methadone Screen, Urine NEGATIVE NEG Opiates Screen, Urine NEGATIVE NEG Phencyclidine Screen, Urine NEGATIVE NEG Tetrahydrocannabinol(THC) POSITIVE NEG Ketones, Serum [[id number]] Collected: 05/17/192253 Order Status: Completed Specimen: Blood Updated: 05/17/19 2317 Ketones, Blood NEGATIVE NEG POC Glucose [[id number]] (Abnormal) Collected: 05/17/192252 Order Status: Completed Updated: [...] 05/20/2019 8:27 AM PSTM SW contacted Crisis ([phone]) to update them regarding the incident on [...] insulin drip at this time. aware." [facility] [address] [place] [address] Crisis thanked this CM for the information, and states that it will not be difficult to mikala ce pt. ASSEMBLING FABRICATOR requested that pt be prioritized for a [...] Reji Harris RN - 05/19/2019 5:[facility] PM [facility] [place] [facility]. [facility] have declined pt d/t aggressive [...] current admission plan while awaiting placement by [facility]. Patient expr esses appreciation for CM visit and concern, returned to playing on phone as CM exited room. lan of Suzan Leung, ASSEMBLING FABRICATOR - 05/19/2019 1:05 PM PSTAttempted earlier to reach Dr. Castillo for psych consult, Dr. Bee now on, left the [facility] requesting telepsych consult. lan of Naeem Forbes MSW - 05/18/2019 4:31 PM PSTLynn Reyes at [facility], patient will be single bed certification. When [...] J?MRN: | | | | | | [id number] | | | [id number] | | | riteri | | | [...] | | | St. | | | [facility] | | | y | | | [...] | | | St. | | | [facility] | | | y | | | [...] | | | St. | | | [facility] | | | y | | | Hospit | | | al | | | Patien | | | t is | | | curren | | | tly | | | establ | | | ished | | | with | | | St | | | [facility] | | | y | | | [...] St | | | | | | [facility] | | | y | | | [...] | | | St. | | | [facility] | | | y | | | [...] | | | St. | | | [facility] | | | y H. | | [...] | | | St. | | | [facility] | | | y H. | | [...] | | | St. | | | [facility] | | | y H. | | [...] | | | St. | | | [facility] | | | y H. | | [...] | | | St. | | | [facility] | | | y H. | | [...] | | | St. | | | [facility] | | | y H. | | [...] | | | MD | | | House Carpenter | | | al | | | [...] | | | [phone] | | | [phone] | | | 95 | | | [...] | | | guidel | | | maylea | | | or for | | [...] Testing | 65 - 99 mg/dL | [facility] | | | POC | performed at [facility];[address] | | LABORATORY | | | | [address];[place], [place] | | | | | | [address] | | | | + + + + + + + + | Specimen | + + | | + + + + + + + | Performing | Address | City/State/Zipcode | Phone Number | | Organization | | | | + + + + + | [facility] | [address] | [place] [address] | [phone] | + + + + + POC Glucose (05/21/2019 5:09 PM PST) + + + + + + | Component | Value | Ref Range | Performed | Pathologist | | | | | At | Signature | + + + + + + | Glucose, | 66Comment: Testing | 65 - 99 mg/dL | [facility] | | | POC | performed at [facility];[address] | | LABORATORY | | | | [address];[place], [place] | | | | | | [address] | | | | + + + + + + + + | Specimen | + + | | + + + + + + + | Performing | Address | City/State/Zipcode | Phone Number | | Organization | | | | + + + + + | [facility] | [address] | [place] [address] | [phone] | + + + + + POC Glucose (05/21/2019 4:51 PM PST) + + + + + + | Component | Value | Ref Range | Performed | Pathologist | | | | | At | Signature | + + + + + + | Glucose, | 66Comment: Testing | 65 - 99 mg/dL | [facility] | | | POC | performed at [facility];[address] | | LABORATORY | | | | [address];[place] | | | | | | [address] | | | | + + + + + + + + | Specimen | + + | | + + + + + + + | Performing | Address | City/State/Zipcode | Phone Number | | Organization | | | | + + + + + | [facility] | [address] | [place] [address] | [phone] | + + + + + POC Glucose (05/21/2019 3:10 PM PST) + + + + + + | Component | Value | Ref Range | Performed | Pathologist | | | | | At | Signature | + + + + + + | Glucose, | 88Comment: Testing | 65 - 99 mg/dL | [facility] | | | POC | performed at [facility];[address] | | LABORATORY | | | | [address];[place], [place] | | | | | | [address] | | | | + + + + + + + + | Specimen | + + | | + + + + + + + | Performing | Address | City/State/Zipcode | Phone Number | | Organization | | | | + + + + + | [facility] | [address] | [place] [address] | [phone] | + + + + + POC [...] | | | POC | performed at [facility];[address] | | LABORATORY | | | | [address];[place], [place] | | | | | | [address] | | | | + + + + + + + + | Specimen | + + | | + + + + + + + | Performing | Address | City/State/Zipcode | Phone Number | | Organization | | | | + + + + + | [facility] | [address] | [place] [address] | [phone] | + + + + + POC Glucose (05/21/2019 11:45 AM PST) + + + + + + | Component | Value | Ref Range | Performed | Pathologist | | | | | At | Signature | + + + + + + | Glucose, | 181 (H)Comment: Testing | 65 - 99 mg/dL | [facility] | | | POC | performed at [facility];[address] | | LABORATORY | | | | [address];[place] | | | | | | [address] | | | | + + + + + + + + | Specimen | + + | | + + + + + + + | Performing | Address | City/State/Zipcode | Phone Number | | Organization | | | | + + + + + | [facility] | [address] | [place] [address] | [phone] | + + + + + Basic [...] | >60Comment: GFR <60: | >60 | [facility] | | | GFR | [...] | | | | | performed at [facility], [address] | | | | | | [facility], | | | | | | [place] [address] | | | | + + + + + + + + | Specimen | + + | Blood | + + + + + + + | Performing | Address | City/State/Zipcode | Phone Number | | Organization | | | | + + + + + | [facility] | [address] | [place] [address] | [phone] | + + + + + POC [...] | | | POC | performed at [facility];[address] | | LABORATORY | | | | [address];[place], [place] | | | | | | [address] | | | | + + + + + + + + | Specimen | + + | | + + + + + + + | Performing | Address | City/State/Zipcode | Phone Number | | Organization | | | | + + + + + | [facility] | [address] | [place] [address] | [phone] | + + + + + POC [...] | | | POC | performed at [facility];[address] | | LABORATORY | | | | [address];[place], [place] | | | | | | [address] | | | | + + + + + + + + | Specimen | + + | | + + + + + + + | Performing | Address | City/State/Zipcode | Phone Number | | Organization | | | | + + + + + | [facility] | [address] | [place] [address] | [phone] | + + + + + POC [...] | | | POC | performed at [facility];[address] | | LABORATORY | | | | [address];[place] | | | | | | [address] | | | | + + + + + + + + | Specimen | + + | | + + + + + + + | Performing | Address | City/State/Zipcode | Phone Number | | Organization | | | | + + + + + | [facility] | [address] | [place] [address] | [phone] | + + + + + POC [...] | | | POC | performed at [facility];[address] | | LABORATORY | | | | [address];[place] | | | | | | [address] | | | | + + + + + + + + | Specimen | + + | | + + + + + + + | Performing | Address | City/State/Zipcode | Phone Number | | Organization | | | | + + + + + | [facility] | [address] | [place] [address] | [phone] | + + + + + Potassium (05/20/2019 3:58 PM PST) + + + + + + | Component | Value | Ref Range | Performed | Pathologist | | | | | At | Signature | + + + + + + | K | 4.9Comment: Testing | 3.5 - 4.9 | [facility] | | | | performed at [facility];[address] | mmol/L | LABORATORY | | | | [address];[place], [place] | | | | | | [address] | | | | + + + + + + + + | Specimen | + + | Blood | + + + + + + + | Performing | Address | City/State/Zipcode | Phone Number | | Organization | | | | + + + + + | [facility] | [address] | [place] [address] | [phone] | + + + + + POC Glucose (05/20/2019 11:37 AM PST) + + + + + + | Component | Value | Ref Range | Performed | Pathologist | | | | | At | Signature | + + + + + + | Glucose, | >400 (H)Comment: Testing | 65 - 99 mg/dL | [facility] | | | POC | performed at [facility];[address] | | LABORATORY | | | | [address];[place] | | | | | | [address] | | | | + + + + + + + + | Specimen | + + | | + + + + + + + | Performing | Address | City/State/Zipcode | Phone Number | | Organization | | | | + + + + + | [facility] | [address] | [place] [address] | [phone] | + + + + + Basic [...] | | | | | | [facility] traceable | | | | | | equation.Testing | | | | | | performed at [facility], [address] | | | | | | [facility], | | | | | | [place] [address] | | | | + + + + + + + + | Specimen | + + | Blood | + + + + + + + | Performing | Address | City/State/Zipcode | Phone Number | | Organization | | | | + + + + + | [facility] | [address] | [place] [address] | [phone] | + + + + + ECG [...] | | | POC | performed at [facility];[address] | | LABORATORY | | | | [address];[place] | | | | | | [address] | | | | + + + + + + + + | Specimen | + + | | + + + + + + + | Performing | Address | City/State/Zipcode | Phone Number | | Organization | | | | + + + + + | [facility] | [address] | [place] [address] | [phone] | + + + + + POC Glucose (05/20/2019 3:23 AM PST) + + + + + + | Component | Value | Ref Range | Performed | Pathologist | | | | | At | Signature | + + + + + + | Glucose, | 232 (H)Comment: Testing | 65 - 99 mg/dL | [facility] | | | POC | performed at [facility];[address] | | LABORATORY | | | | [address];[place] | | | | | | [address] | | | | + + + + + + + + | Specimen | + + | | + + + + + + + | Performing | Address | City/State/Zipcode | Phone Number | | Organization | | | | + + + + + | [facility] | [address] | [place] [address] | [phone] | + + + + + POC [...] | | | POC | performed at [facility];[address] | | LABORATORY | | | | [address];[place], [place] | | | | | | [address] | | | | + + + + + + + + | Specimen | + + | | + + + + + + + | Performing | Address | City/State/Zipcode | Phone Number | | Organization | | | | + + + + + | [facility] | [address] | [place] [address] | [phone] | + + + + + POC Glucose (05/20/2019 1:22 AM PST) + + + + + + | Component | Value | Ref Range | Performed | Pathologist | | | | | At | Signature | + + + + + + | Glucose, | 248 (H)Comment: Testing | 65 - 99 mg/dL | [facility] | | | POC | performed at [facility];[address] | | LABORATORY | | | | [address];[place] | | | | | | [address] | | | | + + + + + + + + | Specimen | + + | | + + + + + + + | Performing | Address | City/State/Zipcode | Phone Number | | Organization | | | | + + + + + | [facility] | [address] | [place] [address] | [phone] | + + + + + POC Glucose (05/20/2019 12:23 AM PST) + + + + + + | Component | Value | Ref Range | Performed | Pathologist | | | | | At | Signature | + + + + + + | Glucose, | 186 (H)Comment: Testing | 65 - 99 mg/dL | [facility] | | | POC | performed at [facility];[address] | | LABORATORY | | | | [address];[place] | | | | | | [address] | | | | + + + + + + + + | Specimen | + + | | + + + + + + + | Performing | Address | City/State/Zipcode | Phone Number | | Organization | | | | + + + + + | [facility] | [address] | [place] [address] | [phone] | + + + + + POC [...] | | | POC | performed at [facility];[address] | | LABORATORY | | | | [address];[place] | | | | | | [address] | | | | + + + + + + + + | Specimen | + + | | + + + + + + + | Performing | Address | City/State/Zipcode | Phone Number | | Organization | | | | + + + + + | [facility] | [address] | [place] [address] | [phone] | + + + + + POC [...] | | | POC | performed at [facility];[address] | | LABORATORY | | | | [address];[place], [place] | | | | | | [address] | | | | + + + + + + + + | Specimen | + + | | + + + + + + + | Performing | Address | City/State/Zipcode | Phone Number | | Organization | | | | + + + + + | [facility] | [address] | [place] [address] | [phone] | + + + + + POC [...] | | | POC | performed at [facility];[address] | | LABORATORY | | | | [address];[place], [place] | | | | | | [address] | | | | + + + + + + + + | Specimen | + + | | + + + + + + + | Performing | Address | City/State/Zipcode | Phone Number | | Organization | | | | + + + + + | [facility] | [address] | [place] [address] | [phone] | + + + + + POC [...] | | | POC | performed at [facility];[address] | | LABORATORY | | | | [address];[place] | | | | | | [address] | | | | + + + + + + + + | Specimen | + + | | + + + + + + + | Performing | Address | City/State/Zipcode | Phone Number | | Organization | | | | + + + + + | [facility] | [address] | [place] [address] | [phone] | + + + + + POC Glucose (05/19/2019 9:06 PM PST) + + + + + + | Component | Value | Ref Range | Performed | Pathologist | | | | | At | Signature | + + + + + + | Glucose, | 54 (L)Comment: Testing | 65 - 99 mg/dL | [facility] | | | POC | performed at [facility];[address] | | LABORATORY | | | | [address];[place] | | | | | | [address] | | | | + + + + + + + + | Specimen | + + | | + + + + + + + | Performing | Address | City/State/Zipcode | Phone Number | | Organization | | | | + + + + + | [facility] | [address] | [place] [address] | [phone] | + + + + + POC [...] | | | POC | performed at [facility];[address] | | LABORATORY | | | | [address];[place], [place] | | | | | | [address] | | | | + + + + + + + + | Specimen | + + | | + + + + + + + | Performing | Address | City/State/Zipcode | Phone Number | | Organization | | | | + + + + + | [facility] | [address] | [place] [address] | [phone] | + + + + + POC Glucose (05/19/2019 7:43 PM PST) + + + + + + | Component | Value | Ref Range | Performed | Pathologist | | | | | At | Signature | + + + + + + | Glucose, | 322 (H)Comment: Testing | 65 - 99 mg/dL | [facility] | | | POC | performed at [facility];[address] | | LABORATORY | | | | [address];[place] | | | | | | [address] | | | | + + + + + + + + | Specimen | + + | | + + + + + + + | Performing | Address | City/State/Zipcode | Phone Number | | Organization | | | | + + + + + | [facility] | [address] | [place] [address] | [phone] | + + + + + Glucose, Random (05/19/2019 5:51 PM PST) + + + + + + | Component | Value | Ref Range | Performed | Pathologist | | | | | At | Signature | + + + + + + | Glucose | 421 (H)Comment: Testing | 65 - 99 mg/dL | [facility] | | | | performed at [facility];888 | | LABORATORY | | | | [address];[place] | | | | | | [address] | | | | + + + + + + + + | Specimen | + + | Blood | + + + + + + + | Performing | Address | City/State/Zipcode | Phone Number | | Organization | | | | + + + + + | [facility] | [address] | [place] [address] | [phone] | + + + + + POC [...] | | | POC | performed at [facility];[address] | | LABORATORY | | | | [address];[place], [place] | | | | | | [address] | | | | + + + + + + + + | Specimen | + + | | + + + + + + + | Performing | Address | City/State/Zipcode | Phone Number | | Organization | | | | + + + + + | [facility] | [address] | [place] [address] | [phone] | + + + + + Hemoglobin A1C (05/19/2019 3:06 PM PST) + + + + + + | Component | Value | Ref Range | Performed | Pathologist | | | | | At | Signature | + + + + + + | Hemoglobin | 10.2 (H)Comment: HbA1c | 4.0 - 6.0 % | [facility] | | | A1c | [...] | 246 (H)Comment: | <154 mg/dL | [facility] | | | Average | Estimated Average | | LABORATORY | | | Glucose | Glucose calculated from | | | | | | hemoglobin A1c by use of | | | | | | the ADArecommended | | | | | | formula.Testing | | | | | | performed at [facility], [address] | | | | | | [facility], | | | | | | [place] [address] | | | | + + + + + + + + | Specimen | + + | Blood | + + + + + + + | Performing | Address | City/State/Zipcode | Phone Number | | Organization | | | | + + + + + | [facility] | [address] | [place] [address] | [phone] | + + + + + Glucose, Random (05/19/2019 3:06 PM PST) + + + + + + | Component | Value | Ref Range | Performed | Pathologist | | | | | At | Signature | + + + + + + | Glucose | 520 ()Comment: CALLED | 65 - 99 mg/dL | [facility] | | | | RESULTSREAD BACK RESULTS | | LABORATORY | | | | VERIFIEDBOOM/CONSUELO Cervantes | | | | | | AT [address] | | | | | | performed at [facility];[address] | | | | | | [address];[place], [place] | | | | | | [address] | | | | + + + + + + + + | Specimen | + + | Blood | + + + + + + + | Performing | Address | City/State/Zipcode | Phone Number | | Organization | | | | + + + + + | [facility] | [address] | [place] [address] | [phone] | + + + + + POC Glucose (05/19/2019 2:42 PM PST) + + + + + + | Component | Value | Ref Range | Performed | Pathologist | | | | | At | Signature | + + + + + + | Glucose, | >400 (H)Comment: Testing | 65 - 99 mg/dL | [facility] | | | POC | performed at [facility];[address] | | LABORATORY | | | | [address];[place], [place] | | | | | | [address] | | | | + + + + + + + + | Specimen | + + | | + + + + + + + | Performing | Address | City/State/Zipcode | Phone Number | | Organization | | | | + + + + + | [facility] | [address] | [place] [address] | [phone] | + + + + + POC [...] | | | POC | performed at [facility];[address] | | LABORATORY | | | | [address];[place], [place] | | | | | | [address] | | | | + + + + + + + + | Specimen | + + | | + + + + + + + | Performing | Address | City/State/Zipcode | Phone Number | | Organization | | | | + + + + + | [facility] | [address] | [place] [address] | [phone] | + + + + + Basic [...] | >60Comment: GFR <60: | >60 | [facility] | | | GFR | [...] | | | | | performed at [facility] | | | | | [address];[place], [place] | | | | | | [address] | | | | + + + + + + + + | Specimen | + + | Blood | + + + + + + + | Performing | Address | City/State/Zipcode | Phone Number | | Organization | | | | + + + + + | [facility] | [address] | [place] [address] | [phone] | + + + + + POC [...] | | | POC | performed at [facility];[address] | | LABORATORY | | | | [address];[place] | | | | | | [address] | | | | + + + + + + + + | Specimen | + + | | + + + + + + + | Performing | Address | City/State/Zipcode | Phone Number | | Organization | | | | + + + + + | [facility] | [address] | [place] [address] | [phone] | + + + + + POC [...] | | | POC | performed at [facility];[address] | | LABORATORY | | | | [address];[place] | | | | | | [address] | | | | + + + + + + + + | Specimen | + + | | + + + + + + + | Performing | Address | City/State/Zipcode | Phone Number | | Organization | | | | + + + + + | [facility] | [address] | [place] [address] | [phone] | + + + + + Basic [...] | | | | | performed at [facility];[address] | | | | | | [address];[place] | | | | | | [address] | | | | + + + + + + + + | Specimen | + + | Blood | + + + + + + + | Performing | Address | City/State/Zipcode | Phone Number | | Organization | | | | + + + + + | [facility] | [address] | [place] [address] | [phone] | + + + + + POC [...] | | | POC | performed at [facility];[address] | | LABORATORY | | | | [address];[place] | | | | | | [address] | | | | + + + + + + + + | Specimen | + + | | + + + + + + + | Performing | Address | City/State/Zipcode | Phone Number | | Organization | | | | + + + + + | [facility] | [address] [facility] | [place] [address] | [phone] | + + + + + POC Glucose (05/18/2019 8:19 PM PST) + + + + + + | Component | Value | Ref Range | Performed | Pathologist | | | | | At | Signature | + + + + + + | Glucose, | >400 (H)Comment: Testing | 65 - 99 mg/dL | [facility] | | | POC | performed at [facility];[address] | | LABORATORY | | | | [address];[place] | | | | | | [address] | | | | + + + + + + + + | Specimen | + + | | + + + + + + + | Performing | Address | City/State/Zipcode | Phone Number | | Organization | | | | + + + + + | [facility] | [address] | [place] [address] | [phone] | + + + + + Basic [...] | 8.7 | 8.5 - 10.5 | [facility] | | | | | mg/dL | LABORATORY | | + + + + + + | Estimated | >60Comment: GFR <60: | >60 | [facility] | | | GFR | [...] | | | | | | MDRD IDMT traceable | | | | | | equation.Testing | | | | | | performed at [facility];[address] | | | | | | [address];[place], [place] | | | | | | [address] | | | | + + + + + + + + | Specimen | + + | Blood | + + + + + + + | Performing | Address | City/State/Zipcode | Phone Number | | Organization | | | | + + + + + | [facility] | [address] | [place] [address] | [phone] | + + + + + POC [...] | | | POC | performed at [facility];[address] | | LABORATORY | | | | [address];[place] | | | | | | [address] | | | | + + + + + + + + | Specimen | + + | | + + + + + + + | Performing | Address | City/State/Zipcode | Phone Number | | Organization | | | | + + + + + | [facility] | [address] | [place] [address] | [phone] | + + + + + POC [...] | | | POC | performed at [facility];[address] | | LABORATORY | | | | [address];[place], [place] | | | | | | [address] | | | | + + + + + + + + | Specimen | + + | | + + + + + + + | Performing | Address | City/State/Zipcode | Phone Number | | Organization | | | | + + + + + | [facility] | [address] | [place] [address] | [phone] | + + + + + POC Glucose (05/18/2019 12:22 PM PST) + + + + + + | Component | Value | Ref Range | Performed | Pathologist | | | | | At | Signature | + + + + + + | Glucose, | >400 (H)Comment: Testing | 65 - 99 mg/dL | [facility] | | | POC | performed at [facility];[address] | | LABORATORY | | | | [address];[place] | | | | | | [address] | | | | + + + + + + + + | Specimen | + + | | + + + + + + + | Performing | Address | City/State/Zipcode | Phone Number | | Organization | | | | + + + + + | [facility] | [address] | [place] [address] | [phone] | + + + + + POC Glucose (05/18/2019 9:28 AM PST) + + + + + + | Component | Value | Ref Range | Performed | Pathologist | | | | | At | Signature | + + + + + + | Glucose, | 111 (H)Comment: Testing | 65 - 99 mg/dL | [facility] | | | POC | performed at [facility];[address] | | LABORATORY | | | | [address];[place] | | | | | | [address] | | | | + + + + + + + + | Specimen | + + | | + + + + + + + | Performing | Address | City/State/Zipcode | Phone Number | | Organization | | | | + + + + + | [facility] | [address] | [place] [address] | [phone] | + + + + + POC [...] | | | POC | performed at [facility];[address] | | LABORATORY | | | | [address];[place], [place] | | | | | | [address] | | | | + + + + + + + + | Specimen | + + | | + + + + + + + | Performing | Address | City/State/Zipcode | Phone Number | | Organization | | | | + + + + + | [facility] | [address] | [place] [address] | [phone] | + + + + + POC Glucose (05/18/2019 3:49 AM PST) + + + + + + | Component | Value | Ref Range | Performed | Pathologist | | | | | At | Signature | + + + + + + | Glucose, | 172 (H)Comment: Testing | 65 - 99 mg/dL | [facility] | | | POC | performed at [facility];[address] | | LABORATORY | | | | [address];[place] | | | | | | [address] | | | | + + + + + + + + | Specimen | + + | | + + + + + + + | Performing | Address | City/State/Zipcode | Phone Number | | Organization | | | | + + + + + | [facility] | [address] | [place] [address] | [phone] | + + + + + POC Glucose (05/18/2019 1:36 AM PST) + + + + + + | Component | Value | Ref Range | Performed | Pathologist | | | | | At | Signature | + + + + + + | Glucose, | 319 (H)Comment: Testing | 65 - 99 mg/dL | [facility] | | | POC | performed at [facility];[address] | | LABORATORY | | | | [address];[place], [place] | | | | | | [address] | | | | + + + + + + + + | Specimen | + + | | + + + + + + + | Performing | Address | City/State/Zipcode | Phone Number | | Organization | | | | + + + + + | [facility] | [address] | [place] [address] | [phone] | + + + + + Blood [...] at | | | | | | [facility];[address] | | [address];[place] [address] | | | | + + + + + + + + | Specimen | + + | | + + + + + + + | Performing | Address | City/State/Zipcode | Phone Number | | Organization | | | | + + + + + | [facility] | [address] | [place] [address] | [phone] | + + + + + Drugs [...] Tetrahydroc | POSITIVE (A)Comment: | NEG | [facility] | | | annabinol(T | [...] | | | | | performed at [facility] | | | | | | [address];[place], [place] | | | | | | [address] | | | | + + + + + + + + | Specimen | + + | Urine | + + + + + + + | Performing | Address | City/State/Zipcode | Phone Number | | Organization | | | | + + + + + | [facility] | [address] | [place] [address] | [phone] | + + + + + Ketones, Serum (05/17/2019 10:54 PM PST) + + + + + + | Component | Value | Ref Range | Performed | Pathologist | | | | | At | Signature | + + + + + + | Ketones, | NEGATIVEComment: Testing | NEG | [facility] | | | Blood | performed at [facility];[address] | | LABORATORY | | | | [address];[place] | | | | | | [address] | | | | + + + + + + + + | Specimen | + + | Blood | + + + + + + + | Performing | Address | City/State/Zipcode | Phone Number | | Organization | | | | + + + + + | [facility] | [address] | [place] [address] | [phone] | + + + + + TSH (05/17/2019 10:54 PM PST) + + + + + + | Component | Value | Ref Range | Performed | Pathologist | | | | | At | Signature | + + + + + + | TSH | 1.314Comment: Testing | 0.450 - 5.100 | [facility] | | | | performed at [facility];888 | uIU/mL | LABORATORY | | | | [address];[place], [place] | | | | | | [address] | | | | + + + + + + + + | Specimen | + + | Blood | + + + + + + + | Performing | Address | City/State/Zipcode | Phone Number | | Organization | | | | + + + + + | [facility] | [address] | [place] [address] | [phone] | + + + + + Salicylate Level (05/17/2019 10:54 PM PST) + + + + + + | Component | Value | Ref Range | Performed | Pathologist | | | | | At | Signature | + + + + + + | Salicylate, | <3.0Comment: Testing | 2.8 - 20.0 | [facility] | | | mg/dL | performed at [facility];888 | mg/dL | LABORATORY | | | | [address];[place], [place] | | | | | | [address] | | | | + + + + + + + + | Specimen | + + | Blood | + + + + + + + | Performing | Address | City/State/Zipcode | Phone Number | | Organization | | | | + + + + + | [facility] | [address] | [place] [address] | [phone] | + + + + + Acetaminophen [...] | | en, S | performed at [facility];888 | ug/mL | LABORATORY | | | | [address];[place], [place] | | | | | | [address] | | | | + + + + + + + + | Specimen | + + | Blood | + + + + + + + | Performing | Address | City/State/Zipcode | Phone Number | | Organization | | | | + + + + + | [facility] | [address] [facility] | [place] [address] | [phone] | + + + + + Ethanol (05/17/2019 10:54 PM PST) + + + + + + | Component | Value | Ref Range | Performed | Pathologist | | | | | At | Signature | + + + + + + | ALCOHOL, | <10Comment: Testing | <10 mg/dL | [facility] | | | SERUM/PLASM | performed at [facility] | | LABORATORY | | | A | [address];[place], [place] | | | | | | [address] | | | | + + + + + + + + | Specimen | + + | Blood | + + + + + + + | Performing | Address | City/State/Zipcode | Phone Number | | Organization | | | | + + + + + | [facility] | [address] | [place] [address] | [phone] | + + + + + Comprehensive [...] | | | | | performed at [facility];[address] | | | | | | [address];[place], [place] | | | | | | [address] | | | | + + + + + + + + | Specimen | + + | Blood | + + + + + + + | Performing | Address | City/State/Zipcode | Phone Number | | Organization | | | | + + + + + | [facility] | [address] | [place] [address] | [phone] | + + + + + CBC [...] | | | Absolute | performed at [facility];[address] | K/uL | LABORATORY | | | | [address];[place], [place] | | | | | | [address] | | | | + + + + + + + + | Specimen | + + | Blood | + + + + + + + | Performing | Address | City/State/Zipcode | Phone Number | | Organization | | | | + + + + + | [facility] | [address] | [place] [address] | [phone] | + + + + + POC Glucose (05/17/2019 10:53 PM PST) + + + + + + | Component | Value | Ref Range | Performed | Pathologist | | | | | At | Signature | + + + + + + | Glucose, | >400 (H)Comment: Testing | 65 - 99 mg/dL | [facility] | | | POC | performed at [facility];[address] | | LABORATORY | | | | [address];[place] | | | | | | [address] | | | | + + + + + + + + | Specimen | + + | | + + + + + + + | Performing | Address | City/State/Zipcode | Phone Number | | Organization | | | | + + + + + | [facility] | [address] | [place] [address] | [phone] | + + + + + documented [...] | | | | First dose on [facility] 05/20/19 at | | | | [...] | | | | | | | 8847-8233 Use NIGHT DOSE for | | | | | | | doses scheduled: HS, 3AM, | | | | | | | Nighttime 1452-0129 If the BG is | | | [...] | | | | | | | 9416-3369 Use NIGHT DOSE for | | | | | | | doses scheduled: HS, 3AM, | | | | | | | Nighttime 4669-9878 If the BG is | | | [...] | | | | | | | 1221-5034 Use NIGHT DOSE for | | | | | | | doses scheduled: HS, 3AM, | | | | | | | Nighttime 0046-9002 If the BG is | | | [...] PST | | | | | ONCE, [facility] 05/17/19 at 2335, For 1 | | [...]
--- OUTSIDE RECORDS SUMMARY | ~2020-04-12 | XMS | Encounter Summary ---
Demographics + + + | Address | [address] | | | [place] [address] | + + + | Home Phone [...] Team Providers + +------+ + | Care Waiver Analyst Name | Role | Phone | [...] | | (FORMERLY [facility]) | | | | | | | [...] | | (FORMERLY [facility]) | | | +--------+--------+ + + + + Encounter Details +--------+ + + + + | Date | Type | Department | Care Team | Description | +--------+ + + + + | 09/26/ | Hospital | [facility] | Juanjose Ross MD | Diabetic | | 2016 - | Encounter | [facility] | [address] [facility] | 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 Specialty: Family Nurse Practitioner Contact information: [address] [facility] [address] [facility] [address] [place] [address] Discharge Medications Unchanged Medications Details insulin glargine 100 units/mL injection (vial) Inject 9 Units under the skin 2 times daily. aka: LANTUS insulin lispro 100 units/mL injection (cartridge) Inject 2 Units under the skin 3 times daily (before meals). Plus sliding scale. aka: humaLOG Discontinued Medications aspirin 81 mg chewable tablet WW-Ynmmwddkgmeoh-Krqpqnbtvbqby 10-5-325 MG Caps HYDROcodone-acetaminophen 5-325 mg per tablet aka: NORCO STRATTERA 100 MG capsule Generic drug: atoMOXetine Studies With Pending Results: None Greater than 30 minutes were spent on discharge and coordination of post-hospital care. Electronically signed by: Yancy Barron MD, 09/28/2016 13:20 [facility] documented in this enc ounter Discharge [...] [x] Pharmacy list names: Anthony Morris [] [facility] SIGNAL APPRENTICE (Prescription Monitoring Program) [x] [employer] insurance reported [...] Marijuana lungs 3 times weekly unknown Other: [facility]-Riviera reports patient appears non-compliant with his medications. Medication: Prior to Admission Sig: Patient taking differently LAY MIDWIFE as: Atomoxetine 100 mg 1 tablet every morning Pt states taking but last filled for 30 day suppl y in June KS-Heyfowofyswyw-Uftkuporlnpmm 10-5-325 mg 1 capsule daily as needed [...] performed and electronically signed by Luis Araujo, Casual Shoe Inspector 017 19:12 Reviewed by: Hannah Mijares PHARMD 09/27/2016 19:55 documented in this encounter H&P Notes Juanjose Ross MD - 09/27/2016 12:14 AM PDT [facility] HISTORY AND PHYSICAL Pt. Name/Age/: [...] Take 100 mg by mouth every morning. CS-Tzmbzdosemyjg-Avnduzqesxjrn 10-5-325 MG CAPS Take 1 capsule by [...] signed by: Juanjose Ross MD 09/27/2016 3:31 [facility] documented in this enc ounter Consult [...] Needs: (based on 55 kg) Kcal needs: 8127-7183 Kcals/day Protein needs:65-80 grams of protein/day Fluid goal:3842-8892 cc fluid per day Nutrition Diagnosis: Severe [...] in 3 days. Available as needed, ext [phone] Assessment: Diet Order: For your reference, current, [...] 12:01 PM PDTAssociated Order(s): IP CONSULT TO INTERNAL CONTROLS ANALYST wireless store manager Patricia called to request strips for [...] Take 100 mg by mouth every morning. RO-LERGTIJAZHAYU-HDXYLBSNZKQJT 10-5-325 MG CAPS Take 1 capsule by [...] by me Rhythm: Sinus tachycardia Rate: 115 [place]: normal Ectopy: none Conduction: normal ST Segments: [...] consultation initiated. - Pt will be instructed produce production team member light use, room lighting will be maintained [...] gap within 12 hours of admission. 3. Join will maintain VS WAL by 09/28/16. 4. [...] consultation initiated. - Pt will be instructed produce production team member light use, room lighting will be maintained appopriately, r oom will be kept clutter free. grippy socks will be used when out of bed. RESTRAINT-RELATED GOALS: STRATEGIES TO ACHIEVE RESTRAINT GOALS: Outcome: Improving Goal Evaluation: Insulin drip off around 10 am. Requesting small frequent snacks. VSS. Glucose prior to d inner 383, covered per SS insulin. To transfer to [address] [place] [address] on telemetry. Report to Hira Vyas RN [...] Outcomes: Patient seemed to be appreciative of operator maintainer's visit. Spiritual Goals / Follow-up: Will see the patient as requested. If there are any other spiritual care issues that arise, please contact operator maintainer. lan of Care - Ursula Haskins RN [...] He did confirm that his PCP is DENSI Diallo, in [place], [place], and that is where both his [...] need to address patient's food issues. Per securities compliance examiner, patient stated that he d oes not [...] + | [facility] | [address] | [place] | [phone] | | [facility] | | [address] | | | - LABORATORY | | [...] + | [facility] | [address] | [place] | [phone] | | [facility] | | [address] | | | - LABORATORY | | [...] mL/min/1.73m2 | [facility] | | | [place] | RATE,ESTIMATED | | MEDICAL | | | | mL/min/1.44m0Bpwh than | | CENTER - | | [...] [address] | [place] | [phone] | | [facility] | | [address] | | | - LABORATORY | | [...] [address] | [place] | [phone] | | [facility] | | [address] | | | - LABORATORY | | [...] + | [facility] | [address] | [place] | [phone] | | [facility] | | [address] | | | - LABORATORY | | [...] [address] | [place] | [phone] | | [facility] | | [address] | | | - LABORATORY | | [...] [address] | [place], [place] | [phone] | | [facility] | | [address] | | | - LABORATORY | | [...] [address] | [place] | [phone] | | [facility] | | [address] | | | - LABORATORY | | [...] (H) | 7 - 18 mg/dL | [facility] | | | | | | [facility] | | | | | | MEDICAL | | | | | | CENTER - | | | | | | LABORATORY | | + + + + + + | Creatinine | 1.21 | 0.60 - 1.30 | [facility] | | | | | [...] mL/min/1.73m2 | [facility] | | | [place] | RATE,ESTIMATED | | MEDICAL | | | | mL/min/1.22f9Vauv than | | CENTER - | | [...] [address] | [place] | [phone] | | [facility] | | [address] | | | - LABORATORY | | [...] | [address] | [place] | [phone] | | [facility] | | [address] | | | - LABORATORY | | [...] [address] | [place] | [phone] | | [facility] | | [address] | | | - LABORATORY | | [...] mL/min/1.73m2 | [facility] | | | [place] | RATE,ESTIMATED | | MEDICAL | | | | mL/min/1.92u7Amlm than | | CENTER - | | [...] + | [facility] | [address] | [place] | [phone] | | [facility] | | [address] | | | - LABORATORY | | [...] - 1.030 | [facility] | | | [place], | | | [facility] | | [...] | | Urine | | | [facility] | | [...] [address] | [place] | [phone] | | [facility] | | [address] | | | - LABORATORY | | [...] [address] | [place] | [phone] | | [facility] | | [address] | | | - LABORATORY | | [...] [address] | [place], [place] | [phone] | | [facility] | | [address] | | | - LABORATORY | | [...] mL/min/1.73m2 | [facility] | | | [place] | RATE,ESTIMATED | | MEDICAL | | | | mL/min/1.03z0Ngov than | | CENTER - | | [...] [address] | [place] | [phone] | | [facility] | | [address] | | | - LABORATORY | | [...] [address] | [place] | [phone] | | [facility] | | [address] | | | - LABORATORY | | [...] [address] | [place] | [phone] | | [facility] | | [address] | | | - LABORATORY | | [...] [address] | [place] | [phone] | | [facility] | | [address] | | | - LABORATORY | | [...] + | [facility] | [address] | [place] | [phone] | | [facility] | | [address] | | | - LABORATORY | | [...] | mL/min/1.73m2 | [facility] | | | [place] | RATE,ESTIMATED | | MEDICAL | | | | mL/min/1.04l1Qwip than | | CENTER - | | [...] [address] | [place] | [phone] | | [facility] | | [address] | | | - LABORATORY | | [...] + | [facility] | [address] | [place] | [phone] | | [facility] | | [address] | | | - LABORATORY | | [...] | | | POC | | | [facility] | | | | | [...] [address] | [place] | [phone] | | [facility] | | [address] | | | - LABORATORY | | [...] | [address] | [place] | [phone] | | [facility] | | [address] | | | - LABORATORY | | [...] [address] | [place] | [phone] | | [facility] | | [address] | | | - LABORATORY | | [...] (H) | 7 - 18 mg/dL | [facility] | | | | | | [facility] | | | | | | MEDICAL | | | | | | CENTER - | | | | | | LABORATORY | | + + + + + + | Creatinine | 1.72 (H) | 0.60 - 1.30 | [facility] | | | | | [...] mL/min/1.73m2 | [facility] | | | [place] | RATE,ESTIMATED | | MEDICAL | | | | mL/min/1.33k3Zshc than | | CENTER - | | [...] [address] | [place] | [phone] | | [facility] | | [address] | | | - LABORATORY | | [...] [address] | [place] | [phone] | | [facility] | | [address] | | | - LABORATORY | | [...] [address] | [place] | [phone] | | [facility] | | [address] | | | - LABORATORY | | [...] + | [facility] | [address] | [place] | [phone] | | [facility] | | [address] | | | - LABORATORY | | [...] | [address] | [place] | [phone] | | [facility] | | [address] | | | - LABORATORY | | [...] mL/min/1.73m2 | [facility] | | | [place] | RATE,ESTIMATED | | MEDICAL | | | | mL/min/1.93p5Ttpg than | | CENTER - | | [...] [address] | [place] | [phone] | | [facility] | | [address] | | | - LABORATORY | | [...] [address] | [place] | [phone] | | [facility] | | [address] | | | - LABORATORY | | [...] + | [facility] | [address] | [place] | [phone] | | [facility] | | [address] | | | - LABORATORY | | [...] [address] | [place] | [phone] | | [facility] | | [address] | | | - LABORATORY | | [...] [address] | [place] | [phone] | | [facility] | | [address] | | | [...] [address] | [place] | [phone] | | [facility] | | [address] | | | - LABORATORY | | [...] + | [facility] | [address] | [place] | [phone] | | [facility] | | [address] | | | - LABORATORY | | [...] mL/min/1.73m2 | [facility] | | | [place] | RATE,ESTIMATED | | MEDICAL | | | | mL/min/1.61k3Kbas than | | CENTER - | | [...] | | | | mg/dL | [facility] | | | | | | [...] + | [facility] | [address] | [place] | [phone] | | [facility] | | [address] | | | - LABORATORY | | [...] [address] | [place] | [phone] | | [facility] | | [address] | | | - LABORATORY | | [...] + | [facility] | [address] | [place], [place] | [phone] | | [facility] | | [address] | | | - LABORATORY | | [...] MD | | | | | | ([id number]) on 09/27/2016 | | | | | [...] + | [facility] | [address] | [place] | [phone] | | [facility] | | [address] | | | - LABORATORY | | [...] [address] | [place], [place] | [phone] | | [facility] | | [address] | | | - LABORATORY | | [...] (H) | 7 - 18 mg/dL | [facility] | | | | | | [facility] | | | | | | MEDICAL | | | | | | CENTER - | | | | | | LABORATORY | | + + + + + + | Creatinine | 2.25 (H) | 0.60 - 1.30 | [facility] | | | | | mg/dL | [facility] | | | | | | MEDICAL | | | | | | CENTER - | | | | | | LABORATORY | | + + + + + + | eGFR, | 33 (L)Comment: | >=60 | [facility] | | | non- | GLOMERULAR FILTRATION | mL/min/1.73m2 | [facility] | | | [place] | RATE,ESTIMATED | | MEDICAL | | | | mL/min/1.14r8Yipj than | | CENTER - | | [...] [address] | [place] | [phone] | | [facility] | | [address] | | | - LABORATORY | | [...] | [address] | [place] | [phone] | | [facility] | | [address] | | | - LABORATORY | | [...] | [employer] | | | [facility] | | | | | [...] [address] | [place] | [phone] | | [facility] | | [address] | | | - LABORATORY | | [...] + | [facility] | [address] | [place], [place] | [phone] | | [facility] | | [address] | | | - LABORATORY | | [...] [address] | [place] | [phone] | | [facility] | | [address] | | | - LABORATORY | | [...] [address] | [place] | [phone] | | [facility] | | [address] | | | - LABORATORY | | [...] + | [facility] | [address] | [place] | [phone] | | [facility] | | [address] | | | - LABORATORY | | [...] | | POC | | | [facility] | | | | | [...] | [address] | [place] | [phone] | | [facility] | | [address] | | | - LABORATORY | | [...] | | | | | | | 6131-2991 Use NIGHT DOSE for | | | | | | | doses scheduled: HS, 3AM, | | | | | | | Nighttime 2611-7602, | | | | | | + [...] | | | | | NPO, Daytime 8247-4553 Use NIGHT | | | | | | | DOSE for doses scheduled: | | | | | | | HS, 3AM, Nighttime 5139-5785, | | | | | | + [...] PDT | | | | | ONCE, [facility] 09/26/16 at 2305, For 1 | [...] PDT | | | | | ONCE, [facility] 09/26/16 at 2355, For 1 | [...] | mL/hr | | | Intravenous, ONCE, [facility] 09/27/16 at | | AM PDT | [...]
[2020-04-12] MEDS ORDERED: DULOXETINE HCL60 MG PO (16:20)
[2020-04-12] MEDS ORDERED: LISINOPRIL5 MG PO (16:22)
[2020-04-12] MEDS ORDERED: TRAZODONE HCL50 MG NG (16:28)
--- NOTE | 2020-04-13 09:14 | EKG ---
[facility] [address] [facility] [place] [address] Signed Normal sinus rhythm Rightward axis Nonspecific ST abnormality Abnormal QRS-T angle, consider primary T wave abnormality Abnormal ECG When compared with ECG of 31-AUG-2018 17:11, Significant changes have occurred Confirmed by RICK LOO MD ([id number]) on 04/13/2020 9:14:27 AM Electronically Signed By: RICK LOO MD 04/13/20 0914 PATIENT NAME: PRIYA WOMACK Electrocardiogram DATE OF : 80 PHYSICIAN: RICK LOO MD REPORT #: [id number] REPORT IS CONFIDENTIAL AND NOT TO BE RELEASED WITHOUT AUTHORIZATION
[2020-04-13] MEDS ORDERED: STRATTERA80 MG PO (14:34)
[2020-04-14] MEDS ORDERED: BASAGLAR K100 UNIT/1 SUB-Q (12:18)
== END 2020-04-14 16:37 | disposition home or self-care (01) | DRG 638 ==
LOC: ED 08:50 → CCU 12:45 → MS 04-13 12:10
PROVIDERS: ADMIT Internal Medicine; ATTEND Internal Medicine
DX: E10.10 Type 1 diabetes mellitus with ketoacidosis without coma (principal); N17.9 Acute kidney failure, unspecified; R65.10 Systemic inflammatory response syndrome (SIRS) of non-infectious origin without acute organ dysfunction; Z20.828 Contact with and (suspected) exposure to other viral communicable diseases; E87.5 Hyperkalemia; E86.0 Dehydration; F17.210 Nicotine dependence, cigarettes, uncomplicated; F90.9 Attention-deficit hyperactivity disorder, unspecified type; F31.9 Bipolar disorder, unspecified; Z88.8 Allergy status to other drugs, medicaments and biological substances; Z79.899 Other long term (current) drug therapy; Z79.4 Long term (current) use of insulin
CPT/HCPCS: 36415; 71045; 80048; 80053; 81001; 82010; 82550; 82800; 83036; 85025; 93005; 93010; 94640; 96361; 96374; 96375; 99285-25; C9113; C9803; J1650; J1815; J2405; J3480; J7030; J7121; Q0177